=== PATIENT | female | born 1940 | race Caucasian/White ===

== ENCOUNTER → 2020-01-14 10:59 | Outpatient (BNVA) | payer MEDICARE, SELFPAY | PROVIDERS: PCP Internal Medicine; Referring Provider Internal Medicine; Visit Provider Internal Medicine | DX: I48.0 Paroxysmal atrial fibrillation (principal); Z79.01 Long term (current) use of anticoagulants; Z51.81 Encounter for therapeutic drug level monitoring | CPT/HCPCS: 85610; 99211 ==

== ENCOUNTER → 2020-02-10 10:59 | Outpatient (BNVA) | payer MEDICARE, SELFPAY | PROVIDERS: PCP Internal Medicine; Referring Provider Internal Medicine; Visit Provider Internal Medicine | DX: I48.0 Paroxysmal atrial fibrillation (principal); Z51.81 Encounter for therapeutic drug level monitoring; Z79.01 Long term (current) use of anticoagulants | CPT/HCPCS: 85610; 99211 ==

== ENCOUNTER 2020-02-16 07:30 | Outpatient (REF) | payer MEDICARE, SELFPAY ==
[2020-02-16 11:58] LABS: Alanine Aminotransferase 13 U/L (0-31); Anion Gap 15 (12-20); Aspartate Amino Transferase 15 U/L (5-31); Blood Urea Nitrogen 15 mg/dL (9-16); Carbon Dioxide 28 mmol/L (22-29); Chloride 100 mmol/L (96-108); Cholesterol 173 mg/dL; Estimated Glomerular Filt Rate > 60; Glucose Fasting 125 mg/dL (60-99); HDL Cholesterol 39 mg/dL; LDL Cholesterol Calculated 104 mg/dl; Potassium 4.2 mmol/l (3.3-5.1); Sodium 139 mmol/L (135-145); Triglycerides 152 mg/dL
[2020-02-16 12:08] LABS: Estimated Average Glucose 169 mg/dL; Hemoglobin A1c % 7.5 %; Vitamin D 25-OH Total 45.5 ng/mL (>30)
== END 2020-02-16 07:31 | disposition home or self-care (01) ==
LOC: HO.HMGCLDS 07:30
PROVIDERS: PCP Internal Medicine; Visit Provider Internal Medicine
DX: E11.22 Type 2 diabetes mellitus with diabetic chronic kidney disease (principal); I12.9 Hypertensive chronic kidney disease with stage 1 through stage 4 chronic kidney disease, or unspecified chronic kidney disease; N18.9 Chronic kidney disease, unspecified; E11.29 Type 2 diabetes mellitus with other diabetic kidney complication; E11.3291 Type 2 diabetes mellitus with mild nonproliferative diabetic retinopathy without macular edema, right eye; Z79.4 Long term (current) use of insulin; Z78.0 Asymptomatic menopausal state
CPT/HCPCS: 80048; 80061; 82306; 83036; 84450; 84460

== ENCOUNTER → 2020-03-09 09:49 | Outpatient (BNVA) | payer MEDICARE, SELFPAY | PROVIDERS: PCP Internal Medicine; Visit Provider Internal Medicine | DX: I48.0 Paroxysmal atrial fibrillation (principal); Z79.01 Long term (current) use of anticoagulants; Z51.81 Encounter for therapeutic drug level monitoring | CPT/HCPCS: 85610; 99211 ==

== ENCOUNTER → 2020-04-06 10:08 | Outpatient (BNVA) | payer MEDICARE, SELFPAY | PROVIDERS: PCP Internal Medicine; Visit Provider Internal Medicine | DX: I48.0 Paroxysmal atrial fibrillation (principal); Z79.01 Long term (current) use of anticoagulants; Z51.81 Encounter for therapeutic drug level monitoring | CPT/HCPCS: 85610 ==

== ENCOUNTER 2020-04-10 10:51 | Outpatient (REF) | payer MEDICARE, SELFPAY ==
--- NOTE | 2020-04-10 | MM_ITS ---
EXAMINATION: MM SCREENING DIGITAL BREAST TOMOSYNTHESIS, BILATERAL CLINICAL INFORMATION: Screening. Asymptomatic. The lifetime risk of breast cancer based on the Tyrer-Cuzick Model is 2%. COMPARISON: Mammography: 08/14/2017, 07/27/2017, 03/29/2016, 02/24/2015 TECHNIQUE: Digital breast tomosynthesis is performed in both the craniocaudal and mediolateral oblique views along with computer-aided detection (CAD). Synthesized 2D images are generated from the tomosynthesis. FINDINGS: There are scattered areas of fibroglandular density (ACR BI-RADS breast composition Category b). Parenchymal pattern is similar to prior studies. There are scattered asymmetries similar to prior studies. There is no developing density or interval mass or architectural abnormality. Scattered benign and vascular calcifications again seen. Axillary nodes are stable. Skin contours are smooth. There is a dermal lesion again seen overlying the right axilla on the MLO view. MM/MM tomosynthesis screening BI IMPRESSION: No significant changes from prior studies. ASSESSMENT: BI-RADS 2: Benign RECOMMENDATION: Routine annual mammography screening. This patient's information was entered into a reminder system with a target due date for their next mammogram.
== END 2020-04-10 10:52 | disposition home or self-care (01) ==
LOC: HO.MAMMO 10:51
PROVIDERS: Visit Provider Internal Medicine
DX: Z12.31 Encounter for screening mammogram for malignant neoplasm of breast (principal)
CPT/HCPCS: 77063; 77067

== ENCOUNTER → 2020-05-04 10:09 | Outpatient (BNVA) | payer MEDICARE, SELFPAY | PROVIDERS: PCP Internal Medicine; Visit Provider Internal Medicine | DX: I48.0 Paroxysmal atrial fibrillation (principal); Z51.81 Encounter for therapeutic drug level monitoring; Z79.01 Long term (current) use of anticoagulants | CPT/HCPCS: 85610; 99211 ==

== ENCOUNTER 2020-05-17 13:48 | Emergency (ER) | payer MEDICARE, SELFPAY ==
--- NOTE | ~2020-05-17 | XR_ITS ---
EXAMINATION: XR CHEST CLINICAL INFORMATION: Epigastric pain COMPARISON: Chest x-ray 02/28/2017 TECHNIQUE: 2 views of the chest were obtained. FINDINGS: Heart size is stable. There is no acute abnormality. There is no pulmonary vascular congestion. No focal consolidation or pleural effusion. History of prior right upper lobe lobectomy. Stable chronic changes of right hemithorax. There is chronic blunting of the right costophrenic angle. Status post resection posterior right fifth rib. Surgical clips over the right hemithorax. XR/XR chest 2V IMPRESSION: No acute abnormality the chest.
--- NOTE | 2020-05-17 14:02 | ECG_ITS ---
Test Reason : AFIB Blood Pressure : / mmHG Vent. Rate : 071 BPM Atrial Rate : 076 BPM P-R Int : 000 ms QRS Dur : 094 ms QT Int : 418 ms P-R-T Axes : 000 -48 051 degrees QTc Int : 454 ms Atrial fibrillation Left axis deviation Nonspecific ST abnormality Abnormal ECG When compared with ECG of 28-FEB-2017 08:07, No significant changes seen Referred By: Generic ED Physician Electronically Signed By:DANIAK ULLOA
[2020-05-17 14:06] VITALS: BP 129/69; PULSE 67; RESP 18; TEMP 36.9; O2SAT 95; BMI 26.7
[2020-05-17 15:52] LABS: MANUAL DIFF FLAG NO
[2020-05-17 15:58] LABS: Basophils Absolute Auto 0.1 X10*3/uL (0.0-0.2); Basophils Percent Auto 0.6 % (0-2); Eosinophils Absolute Auto 0.1 X10*3/uL (0.0-0.4); Eosinophils Percent Auto 1.1 % (0-4); Hematocrit 34.1 % (37-47); Hemoglobin 10.3 g/dl (12.0-16.0); Imm Gran Abs Auto 0.04 X10*3/uL (0.00-0.03); Imm Gran Pct Auto 0.4 % (0.0-0.4); Lymphocytes Percent Auto 10.3 % (20-40); Mean Corpuscular HGB Conc 30.2 g/dl (31.0-35.0); Mean Corpuscular Hemoglobin 20.8 pg (27.0-33.0); Mean Corpuscular Volume 68.8 fL (80-98); Mean Platelet Volume 9.7 fL (9.4-12.3); Monocytes Absolute Auto 0.8 X10*3/uL (0.1-1.2); Monocytes Percent Auto 8.3 % (2-11); Neutrophils Absolute Auto 7.8 X10*3/uL (2.0-8.3); Neutrophils Percent Auto 79.3 % (45-73); Platelet Count 353 X10*3/uL (160-400); Red Blood Count 4.96 X10*6/uL (4.20-5.50); Red Cell Distribution Width 19.5 % (11.0-16.0); White Blood Count 9.9 X10*3/uL (4.8-10.8)
[2020-05-17 16:21] LABS: Troponin-I High Sensitivity 13.4 ng/L (<3.5-17.0)
[2020-05-17 16:23] LABS: Anion Gap 16 (12-20); Blood Urea Nitrogen 16 mg/dL (9-16); Calcium 9.4 mg/dL (8.4-10.2); Carbon Dioxide 26 mmol/L (22-29); Chloride 103 mmol/L (96-108); Creatinine Clr Calc Pharmacy 55.3; Estimated Glomerular Filt Rate > 60; Glucose Random 136 mg/dL (60-115); Potassium 4.7 mmol/L (3.3-5.1); Sodium 140 mmol/L (135-145)
[2020-05-17 16:25] LABS: Glucose, Whole Blood 140 mg/dL (60-115)
--- NOTE | 2020-05-17 17:51 | ED_ITS ---
HPI - Arrhythmia/Palpitations General Chief Complaint: Arrhythmia/Palpitations Stated Complaint: afib Time Seen by Provider: 05/17/20 17:51 Source: patient Mode of arrival: ambulatory Limitations: no limitations History of Present Illness HPI narrative: Pleasant 79-year-old female with below noted past medical history including history of dyslipidemia, hypertension, diabetes, atrial fibrillation on digoxin and metoprolol chronically anticoagulated with Coumadin and surgical history of hysterectomy, lobectomy of the lung, total replacement who presents ambulatory via triage with complaint of states for past several days she has a feeling of ?my AFib? States she has similar-type epigastric discomfort when she gets exacerbations she took an antacid without much relief. She states she has had similar type symptoms the past with exacerbation. Otherwise denies any dizziness, chest pain, for shortness of breath or lower extremity swelling. No recent illness. MD complaint: rapid heart beat and atrial fibrillation Arrhythmia history: atrial fibrillation Associated symptoms: denies other symptoms Related Data Home Medications Medication Instructions Recorded Confirmed amlodipine 5 mg tablet 5 mg PO DAILY 03/03/20 digoxin 125 mcg (0.125 mg) tablet 125 mcg PO DAILY 03/03/20 flu vacc [id number](65yr up)-PF 240 ml IM 03/03/20 mcg/0.7 mL intramuscular syringe insulin glargine 100 unit/mL (3 See Rx Instructions SUBCUT .COMPLEX 03/03/20 03/03/20 mL) subcutaneous pen insulin lispro 200 unit/mL (3 mL) 35 unit SUBCUT BEDTIME ml 03/03/20 03/03/20 subcutaneous pen metoprolol succinate 50 mg mg PO 03/03/20 tablet,extended release 24 hr spironolactone 25 mg tablet 25 mg PO DAILY 03/03/20 Previous Rx's Medication Instructions Recorded metformin 1,000 mg tablet 1,000 mg PO BID 90 Days #180 tab 01/20/20 warfarin 2 mg tablet See Rx Instructions .ROUTE 01/20/20 .COMPLEX #200 tab estradiol 1 g VAGINAL 3XW #42.5 g 01/29/20 rosuvastatin 5 mg tablet 5 mg PO 3XW #39 tab 05/24/20 Allergies Allergy/AdvReac Type Severity Reaction Status Date / Time adhesive tape [Adhesive Tape] Allergy Mild CONTACT Verified 05/17/20 14:05 DERMATITIS cephalexin [CEPHALEXIN] Allergy Unknown SWELLING Verified 05/17/20 14:05 latex [Latex] Allergy Unknown RASH Verified 05/17/20 14:05 oxycodone [From PERCOCET] Allergy Unknown PER H&P Verified 05/17/20 14:05 watermelon [WATERMELON] Allergy Unknown ANAPHYLAXIS Verified 05/17/20 14:05 Biaxin AdvReac Intermediate plapitation Verified 05/17/20 14:05 s bacitracin [From Cortisporin] AdvReac Mild EYE Verified 05/17/20 14:05 IRRITATION hydrocortisone AdvReac Mild EYE Verified 05/17/20 14:05 [From Cortisporin] IRRITATION neomycin [From Cortisporin] AdvReac Mild EYE Verified 05/17/20 14:05 IRRITATION flecainide [From Tambocor] AdvReac Unknown HEART Verified 05/17/20 14:05 RACING lisinopril [LISINOPRIL] AdvReac Unknown cough, Verified 05/17/20 14:05 nausea Sulfa (Sulfonamide AdvReac Unknown PALPITATION Verified 05/17/20 14:05 Antibiotics) S [SULFA(SULFONAMIDE ANTIBIOTICS)] Review of Systems Review of Systems: Constitutional: No Weight loss, No Fever, No Chills, No Night Sweats, No Fatigue, No Malaise ENT/Mouth: No Hearing loss, No Ear Pain, No Nasal Congestion, No Sinus Pain, No Hoarseness, No sore throat, No Rhinorrhea, No Swallowing Difficulty Eyes: No Eye Pain, No Swelling, No Redness, No Foreign Body, No Discharge, No Vision Changes Cardiovascular: No Chest Pain, No SOB, No Dyspnea on Exertion, No Orthopnea, No Edema Respiratory: No Cough, No Sputum, No Wheezing, No Smoke Exposure, No Dyspnea Gastrointestinal: No Nausea, No Vomiting, No Diarrhea, No Constipation, No abdominal Pain, No Hematochezia, No Melena Genitourinary: No Dysuria, No Urinary Frequency, No Hematuria, No Urinary Incontinence, No Urgency, No Flank Pain, No Urinary Flow Changes, No Hesitancy Musculoskeletal: No joint pain, No Myalgias, No Joint Swelling Skin: No Skin Lesions, No rash Neuro: No Weakness, No Numbness, No Paresthesias, No Loss of Consciousness, No Dizziness, No Headache Psych: No Social Issues Heme/Lymph: No Bruising, No Bleeding,No Lymphadenopathy Endocrine: No Polyuria, No Polydipsia, No Temperature Intolerance Yes all other systems are reviewed and are negative [facility] Past Medical History Medical History Atrial fibrillation Atrophic vaginitis Dyslipidemia Essential hypertension Osteoarthritis of knees, bilateral Osteopenia Type 2 diabetes mellitus with diabetic neuropathy, 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 Son No problems noted. Daughter No problems noted. Social History Social History Alcohol intake: never Smoking Status: Never smoker Physical Exam Vital Signs: Vital Signs: Last Vital Signs Temp 98.2 F 05/17/20 19:58 Pulse 65 05/17/20 19:58 Resp 18 05/17/20 19:58 BP 166/73 H 05/17/20 19:58 Pulse Ox 93 05/17/20 19:58 Body Mass Index 26.7 Reviewed Const: General: cooperative and healthy appearing; No acute distress or intoxicated appearing Nutritional Appearance: average body habitus Orientation/consciousness: patient oriented x3 HENMT: Head: Yes normal to inspection Ears: hearing grossly normal bilaterally Eyes: General: appearance normal, both eyes and all related structures Visual Hernandez: normal visual hernandez by confrontation Neck: Neck: Yes normal visual inspection, No positive Brudzinski's sign, No positive Kernig's sign and No tender Thyroid: Thyroid normal Chest: Chest palpation & inspection: normal inspection of the chest Resp: Effort & Inspection: normal respiratory effort Auscultation: clear to auscultation bilaterally Cardio: Jugular venous distension: no JVD Rhythm: abnormal rhythm regularly irregular Heart sounds: no murmurs GI: Inspection: Yes normal to inspection Palpation (GI): Soft to palpation, not firm, nontender and no guarding Percussion: Yes normal to percussion Auscultation: normal bowel sounds : General: Yes no CVA tenderness Back/Spine/Pelvis: Back: no CVA tenderness Skin: General skin exam: no rashes or lesions noted Neuro: General: patient oriented x3 Extrem: General: Yes normal to inspection Course Course Course Narrative: History of atrial fibrillation has had rate control here on metoprolol, digoxin and anticoagulated on Coumadin. Has been resting comfortably and controlled AFib here and ambulatory steady gait. I did have a discussion with her regarding staying for observation however she would prefer to go home this patient was monitored in the emergency room for several hours without acute event and repeat labs show an no troponin delta. Patient will be discharged home to follow-up closely with her machine stoppage frequency checker. She feels comfortable with this plan out of bed ambulatory steady gait. MDM - Arrhythmia/Palpitations Differential Diagnosis Differential diagnosis: Likely palpitations Medical Records Attestation: I reviewed the patient's medical records. Lab Data Attestation: I reviewed the patient's lab results. Result diagrams: 05/17/20 15:48 05/17/20 15:48 Labs: Lab Results 05/17/20 05/17/20 05/17/20 Range/Units 15:23 15:48 15:48 WBC 9.9 (4.8-10.8) X10*3/uL RBC 4.96 (4.20-5.50) X10*6/uL Hgb 10.3 L (12.0-16.0) g/dl Hct 34.1 L (37-47) % MCV 68.8 L (80-98) fL MCH 20.8 L (27.0-33.0) pg MCHC 30.2 L (31.0-35.0) g/dl RDW 19.5 H (11.0-16.0) % Plt Count 353 (160-400) X10*3/uL MPV 9.7 (9.4-12.3) fL Immature Gran % (Auto) 0.4 (0.0-0.4) % Neut % (Auto) 79.3 H (45-73) % Lymph % (Auto) 10.3 L (20-40) % Reeves % (Auto) 8.3 (2-11) % Eos % (Auto) 1.1 (0-4) % Baso % (Auto) 0.6 (0-2) % Lymph # (Auto) 1.0 L (1.2-4.9) X10*3/uL Reeves # (Auto) 0.8 (0.1-1.2) X10*3/uL Eos # (Auto) 0.1 (0.0-0.4) X10*3/uL Baso # (Auto) 0.1 (0.0-0.2) X10*3/uL Abs Immat Gran (auto) 0.04 H (0.00-0.03) X10*3/uL Absolute Neuts (auto) 7.8 (2.0-8.3) X10*3/uL Absolute Nucleated RBC 0.000 (0.0-0.012) X10*3/uL Nucleated RBC % (auto) 0.0 (0.0-0.2) /100WBC PT (10.8-13.0) SEC INR (0.9-1.1) APTT (24.1-38.0) SEC Hold Blue Top SEE NOTE Sodium (135-145) mmol/L Potassium (3.3-5.1) mmol/L Chloride (96-108) mmol/L Carbon Dioxide (22-29) mmol/L Anion Gap (12-20) BUN (9-16) mg/dL Creatinine (0.5-1.4) mg/dL Estim Creat Clear Calc Estimated GFR POC Glucose 140 H (60-115) mg/dL Random Glucose (60-115) mg/dL Calcium (8.4-10.2) mg/dL Magnesium (1.6-2.6) mg/dL Total Bilirubin (0.0-1.0) mg/dL Direct Bilirubin (0.0-0.5) mg/dL AST (5-31) U/L ALT (0-31) U/L Alkaline Phosphatase (39-117) U/L Troponin I High Sens (<3.5-17.0) ng/L B-Natriuretic Peptide (<100) pg/mL Total Protein (6.5-8.0) g/dL Albumin (3.5-5.0) g/dL Lipase (8-78) U/L Digoxin (0.8-2.0) ng/mL Coronavirus (PCR) (Negative) Influenza Type A (PCR) (Negative) Influenza Type B (PCR) (Negative) RSV RNA Qual (PCR) (Negative) 05/17/20 05/17/20 05/17/20 Range/Units 15:48 15:48 18:41 WBC (4.8-10.8) X10*3/uL RBC (4.20-5.50) X10*6/uL Hgb (12.0-16.0) g/dl Hct (37-47) % MCV (80-98) fL MCH (27.0-33.0) pg MCHC (31.0-35.0) g/dl RDW (11.0-16.0) % Plt Count (160-400) X10*3/uL MPV (9.4-12.3) fL Immature Gran % (Auto) (0.0-0.4) % Neut % (Auto) (45-73) % Lymph % (Auto) (20-40) % Reeves % (Auto) (2-11) % Eos % (Auto) (0-4) % Baso % (Auto) (0-2) % Lymph # (Auto) (1.2-4.9) X10*3/uL Reeves # (Auto) (0.1-1.2) X10*3/uL Eos # (Auto) (0.0-0.4) X10*3/uL Baso # (Auto) (0.0-0.2) X10*3/uL Abs Immat Gran (auto) (0.00-0.03) X10*3/uL Absolute Neuts (auto) (2.0-8.3) X10*3/uL Absolute Nucleated RBC (0.0-0.012) X10*3/uL Nucleated RBC % (auto) (0.0-0.2) /100WBC PT 24.1 H (10.8-13.0) SEC INR 2.0 H (0.9-1.1) APTT 42.0 H (24.1-38.0) SEC Hold Blue Top Sodium 140 (135-145) mmol/L Potassium 4.7 (3.3-5.1) mmol/L Chloride 103 (96-108) mmol/L Carbon Dioxide 26 (22-29) mmol/L Anion Gap 16 (12-20) BUN 16 (9-16) mg/dL Creatinine 0.77 (0.5-1.4) mg/dL Estim Creat Clear Calc 55.3 Estimated GFR > 60 POC Glucose (60-115) mg/dL Random Glucose 136 H (60-115) mg/dL Calcium 9.4 (8.4-10.2) mg/dL Magnesium 2.2 (1.6-2.6) mg/dL Total Bilirubin 0.7 (0.0-1.0) mg/dL Direct Bilirubin 0.3 (0.0-0.5) mg/dL AST 16 (5-31) U/L ALT 13 (0-31) U/L Alkaline Phosphatase 54 (39-117) U/L Troponin I High Sens 13.4 (<3.5-17.0) ng/L B-Natriuretic Peptide 81 (<100) pg/mL Total Protein 7.6 (6.5-8.0) g/dL Albumin 4.4 (3.5-5.0) g/dL Lipase 34 (8-78) U/L Digoxin (0.8-2.0) ng/mL Coronavirus (PCR) (Negative) Influenza Type A (PCR) (Negative) Influenza Type B (PCR) (Negative) RSV RNA Qual (PCR) (Negative) 05/17/20 05/17/20 05/17/20 Range/Units 18:41 18:41 19:51 WBC (4.8-10.8) X10*3/uL RBC (4.20-5.50) X10*6/uL Hgb (12.0-16.0) g/dl Hct (37-47) % MCV (80-98) fL MCH (27.0-33.0) pg MCHC (31.0-35.0) g/dl RDW (11.0-16.0) % Plt Count (160-400) X10*3/uL MPV (9.4-12.3) fL Immature Gran % (Auto) (0.0-0.4) % Neut % (Auto) (45-73) % Lymph % (Auto) (20-40) % Reeves % (Auto) (2-11) % Eos % (Auto) (0-4) % Baso % (Auto) (0-2) % Lymph # (Auto) (1.2-4.9) X10*3/uL Reeves # (Auto) (0.1-1.2) X10*3/uL Eos # (Auto) (0.0-0.4) X10*3/uL Baso # (Auto) (0.0-0.2) X10*3/uL Abs Immat Gran (auto) (0.00-0.03) X10*3/uL Absolute Neuts (auto) (2.0-8.3) X10*3/uL Absolute Nucleated RBC (0.0-0.012) X10*3/uL Nucleated RBC % (auto) (0.0-0.2) /100WBC PT (10.8-13.0) SEC INR (0.9-1.1) APTT (24.1-38.0) SEC Hold Blue Top Sodium (135-145) mmol/L Potassium (3.3-5.1) mmol/L Chloride (96-108) mmol/L Carbon Dioxide (22-29) mmol/L Anion Gap (12-20) BUN (9-16) mg/dL Creatinine (0.5-1.4) mg/dL Estim Creat Clear Calc Estimated GFR POC Glucose (60-115) mg/dL Random Glucose (60-115) mg/dL Calcium (8.4-10.2) mg/dL Magnesium (1.6-2.6) mg/dL Total Bilirubin (0.0-1.0) mg/dL Direct Bilirubin (0.0-0.5) mg/dL AST (5-31) U/L ALT (0-31) U/L Alkaline Phosphatase (39-117) U/L Troponin I High Sens 15.7 (<3.5-17.0) ng/L B-Natriuretic Peptide (<100) pg/mL Total Protein (6.5-8.0) g/dL Albumin (3.5-5.0) g/dL Lipase (8-78) U/L Digoxin 0.7 L (0.8-2.0) ng/mL Coronavirus (PCR) NEGATIVE (Negative) Influenza Type A (PCR) NEGATIVE (Negative) Influenza Type B (PCR) NEGATIVE (Negative) RSV RNA Qual (PCR) NEGATIVE (Negative) Imaging Data Chest x-ray: Radiologist's impression: [address] [id number] ReportSigned Patient: Aminah Kraft PMR#: [id number]: 9Acct:[id number]/Sex: 79 / FADM Date: 05/17/20Loc: HO.EDAttending Dr: Ordering Physician: Generic ED Physician Date of Service: 05/17/20 Procedure(s): XR chest 2V Accession Number(s): [id number] cc: Generic ED Physician~ EXAMINATION: XR CHEST CLINICAL INFORMATION: Epigastric pain COMPARISON: Chest x-ray 02/28/2017 TECHNIQUE: 2 views of the chest were obtained. FINDINGS: Heart size is stable. There is no acute abnormality. There is no pulmonary vascular congestion. No focal consolidation or pleural effusion. History of prior right upper lobe lobectomy. Stable chronic changes of right hemithorax. There is chronic blunting of the right costophrenic angle. Status post resection posterior right fifth rib. Surgical clips over the right hemithorax. XR/XR chest 2V IMPRESSION: No acute abnormality the chest. Dictated By:ISSA BURNETTE MDSigned By:<Electronically signed by ISSA BURNETTE MD in OV>05/17/20 1632 DD/ 1600TD/TT: Paralegal Assistant: TRACY ECG Data Interpretation: 1. Atrial fibrillation Left axis deviation Nonspecific ST abnormality Abnormal ECG When compared with ECG of 28-FEB-2017 08:07, No significant changes seen 2. Atrial fibrillation with slow ventricular response Nonspecific ST abnormality Abnormal ECG When compared with ECG of 17-MAY-2020 14:06, No significant change was found Discharge Plan Discharge Clinical Impression: Chronic a-fib Patient Disposition: Home, Self-Care Instructions: A-fib (Atrial Fibrillation) (ED) Additional Instructions: Taking medication prescribed Follow-up her primary care doctor closely Return if any chest pain, shortness of breath, abdominal pain, or any other concerning symptoms Thank you Prescriptions: No Action metformin 1,000 mg tablet 1,000 mg PO BID 90 Days Qty: 180 RF: 4 warfarin 2 mg tablet See Rx Instructions mg .ROUTE .COMPLEX Qty: 200 RF: 3 estradiol 0.01 % (0.1 mg/gram) cream 1 g vaginal 3XW Qty: 42.5 RF: 2 rosuvastatin 5 mg tablet 5 mg PO 3XW Qty: 39 RF: 0 digoxin 125 mcg (0.125 mg) tablet 125 mcg PO DAILY RF: 0 spironolactone 25 mg tablet 25 mg PO DAILY RF: 0 amlodipine 5 mg tablet 5 mg PO DAILY RF: 0 metoprolol succinate 50 mg tablet extended release 24 hr PO RF: 0 Fluzone HighDose Quad 20-21 PF 240 mcg/0.7 mL syringe IM RF: 0 insulin lispro 200 unit/mL (3 mL) insulin pen 35 unit subcut BEDTIME RF: 0 insulin glargine 100 unit/mL (3 mL) insulin pen See Rx Instructions subcut .COMPLEX RF: 0 Referrals: Patricia Nicole MD [Primary Care Provider] - 2 days Interventions: ED Discharge Assessment Last Done: 05/17/20 20:52 Discharge Date/Time: 05/17/20 20:52
[2020-05-17] MEDS: 0.9 % Sodium Chloride 500 ML IV (18:43)
[2020-05-17 18:44] LABS: Alanine Aminotransferase 13 U/L (0-31); Albumin Level 4.4 g/dL (3.5-5.0); Alkaline Phosphatase 54 U/L (39-117); Aspartate Amino Transferase 16 U/L (5-31); Bilirubin Direct 0.3 mg/dL (0.0-0.5); Bilirubin Total 0.7 mg/dL (0.0-1.0); Lipase 34 U/L (8-78); Magnesium 2.2 mg/dL (1.6-2.6); Total Protein 7.6 g/dL (6.5-8.0)
[2020-05-17 18:51] LABS: B Type Natriuretic Peptide 81 pg/mL (<100)
[2020-05-17 18:56] LABS: Prothrombin Time 24.1 SEC (10.8-13.0)
[2020-05-17 19:24] LABS: Digoxin 0.7 ng/mL (0.8-2.0)
[2020-05-17 19:29] LABS: Influenza A PCR NEGATIVE (Negative); Influenza B PCR NEGATIVE (Negative); Resp Syncy Virus RNA Qual PCR NEGATIVE (Negative); SARS COV2 PCR INHOUSE NEGATIVE (Negative)
--- NOTE | 2020-05-17 19:46 | ECG_ITS ---
Test Reason : REPEAT EKG Blood Pressure : / mmHG Vent. Rate : 052 BPM Atrial Rate : 066 BPM P-R Int : 000 ms QRS Dur : 094 ms QT Int : 470 ms P-R-T Axes : 000 -52 034 degrees QTc Int : 437 ms Atrial fibrillation with slow ventricular response Left anterior fascicular block Nonspecific ST abnormality Abnormal ECG When compared with ECG of 17-MAY-2020 14:06, No significant change was found Referred By: Leon Juarez Electronically Signed By:DANIKA ULLOA
[2020-05-17 19:58] VITALS: BP 166/73; PULSE 65; RESP 18; TEMP 36.8; O2SAT 93
[2020-05-17 20:16] VITALS: PULSE 65
[2020-05-17 20:20] LABS: Troponin-I High Sensitivity 15.7 ng/L (<3.5-17.0)
== END 2020-05-17 20:52 | disposition home or self-care (01) ==
PROVIDERS: Nurse Practitioner Primary Care; Emergency Provider Emergency Medicine; PCP Internal Medicine
DX: I48.20 Chronic atrial fibrillation, unspecified (principal); R00.2 Palpitations; Z20.822 Contact with and (suspected) exposure to COVID-19; E78.5 Hyperlipidemia, unspecified; I10 Essential (primary) hypertension; E11.9 Type 2 diabetes mellitus without complications; Z90.710 Acquired absence of both cervix and uterus; Z79.4 Long term (current) use of insulin; Z79.01 Long term (current) use of anticoagulants; Z79.899 Other long term (current) drug therapy
CPT/HCPCS: 0241U; 36415; 71046; 80048; 80076; 80162; 82947; 83690; 83735; 83880; 84484; 85025; 85610; 85730; 93005; 96360; 99284; 99285

== ENCOUNTER 2020-05-31 06:47 | Outpatient (REF) | payer MEDICARE, SELFPAY ==
[2020-05-31 11:25] LABS: Estimated Average Glucose 148 mg/dL; Hemoglobin A1c % 6.8 %
[2020-05-31 11:55] LABS: Alanine Aminotransferase 12 U/L (0-31); Albumin Level 4.2 g/dL (3.5-5.0); Alkaline Phosphatase 49 U/L (39-117); Anion Gap 13 (12-20); Aspartate Amino Transferase 15 U/L (5-31); Bilirubin Total 0.6 mg/dL (0.0-1.0); Blood Urea Nitrogen 16 mg/dL (9-16); Calcium 9.3 mg/dL (8.4-10.2); Carbon Dioxide 29 mmol/L (22-29); Chloride 102 mmol/L (96-108); Cholesterol 164 mg/dL; Estimated Glomerular Filt Rate > 60; Glucose Fasting 108 mg/dL (60-99); HDL Cholesterol 36 mg/dL; LDL Cholesterol Calculated 99 mg/dl; Potassium 4.4 mmol/L (3.3-5.1); Sodium 140 mmol/L (135-145); Total Protein 7.1 g/dL (6.5-8.0); Triglycerides 147 mg/dL
[2020-05-31 12:09] LABS: Microalbum/Creatinine Ratio Ur 487.3 ug/mg cr
[2020-05-31 12:16] LABS: Vitamin D 25-OH Total 50.6 ng/mL (>30)
== END 2020-05-31 06:48 | disposition home or self-care (01) ==
LOC: HO.HMGCLDS 06:47
PROVIDERS: PCP Internal Medicine; Visit Provider Internal Medicine
DX: M85.80 Other specified disorders of bone density and structure, unspecified site (principal); E11.29 Type 2 diabetes mellitus with other diabetic kidney complication; E11.40 Type 2 diabetes mellitus with diabetic neuropathy, unspecified; E11.3299 Type 2 diabetes mellitus with mild nonproliferative diabetic retinopathy without macular edema, unspecified eye; E78.5 Hyperlipidemia, unspecified; I10 Essential (primary) hypertension; Z78.0 Asymptomatic menopausal state; Z79.4 Long term (current) use of insulin
CPT/HCPCS: 36415; 80053; 80061; 82043; 82306; 83036

== ENCOUNTER → 2020-06-01 10:13 | Outpatient (BNVA) | payer MEDICARE, SELFPAY | PROVIDERS: PCP Internal Medicine; Visit Provider Internal Medicine | DX: I48.0 Paroxysmal atrial fibrillation (principal); Z51.81 Encounter for therapeutic drug level monitoring; Z79.01 Long term (current) use of anticoagulants | CPT/HCPCS: 85610; 99211 ==

== ENCOUNTER 2020-06-18 14:59 | Emergency (ER) | payer MEDICARE, SELFPAY ==
--- NOTE | ~2020-06-18 | CT_ITS ---
EXAMINATION: CT CHEST, ABDOMEN AND PELVIS WITH CONTRAST CLINICAL INFORMATION: Reason for Exam Fall down stairs. Right-sided abdominal pain . COMPARISON: Chest radiograph 05/17/2020 abdominal ultrasound 08/20/2011. TECHNIQUE: Multidetector volumetric imaging was performed from the thoracic inlet through the pubic symphysis following the administration of: Oral contrast: No Intravenous contrast: 80 mL Omnipaque 350 No contrast reaction reported Sagittal and coronal reformatted images were obtained on the technologist workstation. Total exam dose-length product 488 mGy-cm FINDINGS: CHEST: Lung: There are postsurgical changes with volume loss in the right hemithorax. Postthoracotomy changes in the posterior right chest wall. There are mild underlying emphysematous changes. There is no dense consolidation. Atelectasis in the lung bases. There are a few scattered micronodules. No suspicious pulmonary nodules. Pleura: No pleural effusion or pneumothorax. Mediastinum: The heart is enlarged. Coronary artery calcifications. No pericardial effusion. Scattered low volume mediastinal lymph nodes measuring up to 1.2 cm in the right lower paratracheal station. Mildly enlarged, heterogeneous thyroid gland. Vascular: No aneurysm or dissection. 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 Chest Wall/Axilla: No axillary or internal mammary lymphadenopathy. ABDOMEN/PELVIS: Liver, Gallbladder and Biliary Tree: The liver is normal in size, shape, and attenuation. No focal hepatic lesion or biliary ductal dilatation is present. Cholelithiasis. Large calcified gallstone is present. Pancreas: Normal; no mass or surrounding fluid. Spleen: Normal size. No focal lesion. Adrenal Glands: Normal; no mass. Kidneys and Ureters: There is mild right-sided hydroureteronephrosis with an obstructing 8 mm calculus in the proximal/mid right ureter. 8 mm calculus in the upper pole of the right kidney. Bilateral simple renal cysts which do not require follow-up. Gastrointestinal Tract: No bowel obstruction. Some colonic diverticulosis. Normal appendix. Abdominal Wall: No significant hernia is appreciated. Lymphovascular Structures: Atherosclerotic ossification in the aorta. No lymphadenopathy. Bladder: No focal mass or wall thickening seen. No bladder calculi. Pelvic Viscera: Unremarkable. Osseous Structures: Multilevel degenerative changes in the spine. There is a mild compression fracture in the T11 vertebral body with some questionable surrounding inflammatory changes in the paravertebral body fat suggesting a possible acute/subacute fracture. A mild compression deformity in the T12 vertebral body appears to be chronic. CT/CT abdomen pelvis w con IMPRESSION: 1. There is mild right-sided hydronephrosis with an obstructing 8 mm calculus in the proximal/mid right ureter. Additional 8 mm calculus in the upper pole of the right kidney. 2. There is a questionable acute/subacute mild compression deformity in the T11 vertebral body. Recommend clinical correlation to assess acuity. If clinically indicated, MRI of the thoracic/lumbar spine can be obtained to assess the acuity. 3. Cholelithiasis. 4. Atherosclerotic disease including coronary artery calcifications. Enlarged heart. 5. Nonspecific low volume mediastinal lymphadenopathy. 6. Mild emphysematous changes in the lungs. 7. Postsurgical changes in the right lung. 8. Colonic diverticulosis.
[2020-06-18 15:04] VITALS: BP 149/65; PULSE 78; RESP 14; TEMP 35.8; O2SAT 97; BMI 26.3
[2020-06-18 16:28] VITALS: BP 152/50; PULSE 57; RESP 14; TEMP 36.4; O2SAT 97
[2020-06-18 17:49] LABS: MANUAL DIFF FLAG NO
[2020-06-18 17:50] LABS: Basophils Absolute Auto 0.1 X10*3/uL (0.0-0.2); Basophils Percent Auto 0.6 % (0-2); Eosinophils Absolute Auto 0.3 X10*3/uL (0.0-0.4); Eosinophils Percent Auto 3.8 % (0-4); Hematocrit 36.7 % (37-47); Hemoglobin 10.9 g/dl (12.0-16.0); Imm Gran Abs Auto 0.03 X10*3/uL (0.00-0.03); Imm Gran Pct Auto 0.3 % (0.0-0.4); Lymphocytes Absolute Auto 1.6 X10*3/uL (1.2-4.9); Lymphocytes Percent Auto 18.3 % (20-40); Mean Corpuscular HGB Conc 29.7 g/dl (31.0-35.0); Mean Corpuscular Hemoglobin 20.4 pg (27.0-33.0); Mean Corpuscular Volume 68.6 fL (80-98); Mean Platelet Volume 8.9 fL (9.4-12.3); Monocytes Absolute Auto 0.9 X10*3/uL (0.1-1.2); Neutrophils Absolute Auto 5.9 X10*3/uL (2.0-8.3); Platelet Count 439 X10*3/uL (160-400); Red Blood Count 5.35 X10*6/uL (4.20-5.50); White Blood Count 8.8 X10*3/uL (4.8-10.8)
--- NOTE | 2020-06-18 17:50 | ED.FALL ---
HPI - Fall General Chief Complaint: Fall Stated Complaint: fall Time Seen by Provider: 06/18/20 17:06 Source: patient Mode of arrival: ambulatory History of Present Illness HPI Narrative: 79-year-old female with a past medical history hyperlipidemia, HTN, diabetes, AFib on digoxin, metoprolol, and Coumadin, s/p hysterectomy, lobectomy, presenting to the ED complaining of right-sided rib and abdominal pain radiating to left abdomen x1 week s/p mechanical fall down 3-4 stairs. Reports was carrying laundry when slipped on close, falling on side/back, denies head trauma or LOC. Reports pain is worse with movement. Denies shortness of breath, nausea/vomiting, diarrhea, bloody stools/melena, nausea/vomiting, dysuria. Admits to intermittent chronic lightheadedness which she is seeing her PCP for. MD complaint: fall Onset (ago): week(s) Related Data Home Medications Medication Instructions Recorded Confirmed amlodipine 5 mg tablet 5 mg PO DAILY 03/03/20 06/02/20 digoxin 125 mcg (0.125 mg) tablet 125 mcg PO DAILY 03/03/20 06/02/20 flu vacc [id number](65yr up)-PF 240 ml IM 03/03/20 06/02/20 mcg/0.7 mL intramuscular syringe insulin glargine 100 unit/mL (3 See Rx Instructions SUBCUT .COMPLEX 03/03/20 06/02/20 mL) subcutaneous pen insulin lispro 200 unit/mL (3 mL) 35 unit SUBCUT BEDTIME ml 03/03/20 06/02/20 subcutaneous pen metoprolol succinate 50 mg mg PO 03/03/20 06/02/20 tablet,extended release 24 hr spironolactone 25 mg tablet 25 mg PO DAILY 03/03/20 06/02/20 omeprazole 20 mg capsule,delayed 20 mg PO DAILY 06/02/20 06/02/20 release Previous Rx's Medication Instructions Recorded metformin 1,000 mg tablet 1,000 mg PO BID 90 Days #180 tab 01/20/20 warfarin 2 mg tablet See Rx Instructions .ROUTE 01/20/20 .COMPLEX #200 tab estradiol 1 g VAGINAL 3XW #42.5 g 01/29/20 rosuvastatin 5 mg tablet 5 mg PO 3XW #39 tab 03/08/21 docusate sodium 100 mg capsule 100 mg PO DAILY #30 cap 06/02/20 famotidine 40 mg tablet 40 mg PO .q pm #30 tab 06/02/20 ferrous fumarate 325 mg (106 mg 325 mg PO DAILY #30 tab 06/02/20 iron) tablet acetaminophen [Tylenol Extra 500 mg PO Q6H PRN #20 tab 06/18/20 Strength] tamsulosin [Flomax] 0.4 mg PO DAILY #10 cap 06/18/20 tramadol 50 mg PO Q8H PRN 3 Days #9 tab 06/18/20 Allergies Allergy/AdvReac Type Severity Reaction Status Date / Time adhesive tape [Adhesive Tape] Allergy Mild CONTACT Verified 06/02/20 23:50 DERMATITIS cephalexin [CEPHALEXIN] Allergy Unknown SWELLING Verified 06/02/20 23:50 latex [Latex] Allergy Unknown RASH Verified 06/02/20 23:50 oxycodone [From PERCOCET] Allergy Unknown PER H&P Verified 06/02/20 23:50 watermelon [WATERMELON] Allergy Unknown ANAPHYLAXIS Verified 06/02/20 23:50 Biaxin AdvReac Intermediate plapitation Verified 06/02/20 23:50 s bacitracin [From Cortisporin] AdvReac Mild EYE Verified 06/02/20 23:50 IRRITATION hydrocortisone AdvReac Mild EYE Verified 06/02/20 23:50 [From Cortisporin] IRRITATION neomycin [From Cortisporin] AdvReac Mild EYE Verified 06/02/20 23:50 IRRITATION flecainide [From Tambocor] AdvReac Unknown HEART Verified 06/02/20 23:50 RACING lisinopril [LISINOPRIL] AdvReac Unknown cough, Verified 06/02/20 23:50 nausea Sulfa (Sulfonamide AdvReac Unknown PALPITATION Verified 06/02/20 23:50 Antibiotics) S [SULFA(SULFONAMIDE ANTIBIOTICS)] Review of Systems Review of Systems: Constitutional: No Fever, No Chills, No Malaise Cardiovascular: +chest wall Pain, No SOB, +Edema Respiratory: No Cough, No Dyspnea Gastrointestinal: No Nausea, No Vomiting, No Diarrhea, No Constipation, +Abdominal pain, No Hematochezia, No Melena Genitourinary: No irregular bleeding, No Dysuria, No Hematuria, +R Flank Pain Musculoskeletal: No joint pain, No Myalgias, No Joint Swelling Skin: No Skin Lesions, No rash Neuro: No Weakness, No Loss of Consciousness, + intermittent lightheadedness, No Headache Yes all other systems are reviewed and are negative Neurologic: Denies Abnormal speech present [facility] Past Medical History Attestation statement: The following information was validated with the patient. 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 Son No problems noted. Daughter No problems noted. Social History Social History Alcohol intake: never Smoking Status: Former smoker Smoked in Last 30 Days: No Use of substances other than those prescribed or required for medical reasons: No Advance Directives: No Advance Directives Information Provided: Yes Physical Exam Vital Signs: Vital Signs: Last Vital Signs Temp 97.5 F 06/18/20 16:28 Pulse 57 06/18/20 16:28 Resp 18 06/18/20 20:00 BP 129/60 06/18/20 20:00 Pulse Ox 98 06/18/20 20:00 Body Mass Index 26.3 Const: General: cooperative, healthy appearing, comfortable, no acute distress, well developed and alert Orientation/consciousness: patient oriented x3 Limitations: no limitations HENMT: Head: Yes normal to inspection, Yes normocephalic and Yes atraumatic Ears: hearing grossly normal bilaterally General nose exam: Normal external nose present Face and sinus: Yes normal facial exam Eyes: General: appearance normal, both eyes and all related structures EOM: EOMs intact bilaterally Neck: Neck: Yes normal visual inspection and Yes no meningeal signs Chest: Other: + right-sided chest wall/rib tenderness to palpation > lower lateral/posterior aspect Chest palpation & inspection: normal inspection of the chest and no crepitus Resp: Effort & Inspection: normal respiratory effort Auscultation: clear to auscultation bilaterally, no rhonchi and no wheezes Cardio: Rate: regular rate Heart sounds: S1 normal heart sound present and S2 normal heart sound present GI: Inspection: Yes normal to inspection Palpation (GI): Soft to palpation, Tenderness to palpation present (GI) in the RLQ and in the RUQ, no guarding and not rigid : General: Yes CVA tenderness on the right Back/Spine/Pelvis: Other: No midline thoracic/lumbar spinous tenderness or step-offs. + lower thoracic paraspinal MSK tenderness Skin: Rashes: no rashes Wounds: no wounds Neuro: General: patient oriented x3, gait normal, tone normal, moves all extremities, no meningeal signs, no focal motor deficits and CN's II-XI intact bilaterally Cognition (Neuro): normal cognition Speech: No Abnormal speech present Gait exam (Neuro): Normal gait present Extrem: Other: + bilateral lower extremity pitting edema. Strength intact throughout. No saddle anesthesia General: Yes normal to inspection Course Course Course Narrative: -no leukocytosis. H&H at baseline. INR mildly supratherapeutic at 3.3 > patient instructed to hold for 2 days and have INR re-checked -renal function at baseline, labs otherwise unremarkable, UA negative CT chest w con IMPRESSION: 1. There is mild right-sided hydronephrosis with an obstructing 8 mm calculus in the proximal/mid right ureter. Additional 8 mm calculus in the upper pole of the right kidney. 2. There is a questionable acute/subacute mild compression deformity in the T11 vertebral body. Recommend clinical correlation to assess acuity. If clinically indicated, MRI of the thoracic/lumbar spine can be obtained to assess the acuity. 3. Cholelithiasis. 4. Atherosclerotic disease including coronary artery calcifications. Enlarged heart. 5. Nonspecific low volume mediastinal lymphadenopathy. 6. Mild emphysematous changes in the lungs. 7. Postsurgical changes in the right lung. 8. Colonic diverticulosis. >> case discussed with Urology, Dr. Storey who reported if patient is tolerating p.o. can follow-up in the office next week > patient has been tolerating p.o. in the ED, has been ambulatory in the ED, imaging results discussed including worrisome signs and symptoms and strict return precautions. She is to follow up with Urology, spinal surgery, and hold her Coumadin for 2 days. Patient and verbalized understanding feel safe for discharge home MDM - Fall MDM Narrative Medical decision making narrative: 79-year-old female with a past medical history hyperlipidemia, HTN, diabetes, AFib on digoxin, metoprolol, and Coumadin, s/p hysterectomy, lobectomy, presenting to the ED complaining of right-sided rib and abdominal pain radiating to left abdomen x1 week s/p mechanical fall down 3-4 stairs. On exam VSS, NAD, physical exam as above, no focal neuro deficits, no midline spinous tenderness. Concern for rib fracture or intrathoracic/intra-abdominal injury. Plan: Labs, UA, imaging, reassess Medical Records Attestation: I reviewed the patient's medical records. Lab Data Attestation: I reviewed the patient's lab results. Result diagrams: 06/18/20 17:42 06/18/20 17:42 Labs: Lab Results 06/18/20 06/18/20 06/18/20 Range/Units 17:42 17:42 17:42 WBC 8.8 (4.8-10.8) X10*3/uL RBC 5.35 (4.20-5.50) X10*6/uL Hgb 10.9 L (12.0-16.0) g/dl Hct 36.7 L (37-47) % MCV 68.6 L (80-98) fL MCH 20.4 L (27.0-33.0) pg MCHC 29.7 L (31.0-35.0) g/dl RDW 21.0 H (11.0-16.0) % Plt Count 439 H (160-400) X10*3/uL MPV 8.9 L (9.4-12.3) fL Immature Gran % (Auto) 0.3 (0.0-0.4) % Neut % (Auto) 67.0 (45-73) % Lymph % (Auto) 18.3 L (20-40) % [place] % (Auto) 10.0 (2-11) % Eos % (Auto) 3.8 (0-4) % Baso % (Auto) 0.6 (0-2) % Lymph # (Auto) 1.6 (1.2-4.9) X10*3/uL [place] # (Auto) 0.9 (0.1-1.2) X10*3/uL Eos # (Auto) 0.3 (0.0-0.4) X10*3/uL Baso # (Auto) 0.1 (0.0-0.2) X10*3/uL Abs Immat Gran (auto) 0.03 (0.00-0.03) X10*3/uL Absolute Neuts (auto) 5.9 (2.0-8.3) X10*3/uL Absolute Nucleated RBC 0.000 (0.0-0.012) X10*3/uL Nucleated RBC % (auto) 0.0 (0.0-0.2) /100WBC PT 39.5 H D (10.8-13.0) SEC INR 3.3 H (0.9-1.1) APTT 55.1 H (24.1-38.0) SEC Sodium 136 (135-145) mmol/L Potassium 5.0 (3.3-5.1) mmol/L Chloride 98 (96-108) mmol/L Carbon Dioxide 28 (22-29) mmol/L Anion Gap 15 (12-20) BUN 17 H (9-16) mg/dL Creatinine 0.78 (0.5-1.4) mg/dL Estim Creat Clear Calc 54.1 Estimated GFR > 60 Random Glucose 192 H D (60-115) mg/dL Calcium 9.5 (8.4-10.2) mg/dL Magnesium 2.1 (1.6-2.6) mg/dL Total Bilirubin 0.6 (0.0-1.0) mg/dL Direct Bilirubin 0.2 (0.0-0.5) mg/dL AST 22 D (5-31) U/L ALT 19 (0-31) U/L Alkaline Phosphatase 70 D (39-117) U/L B-Natriuretic Peptide (<100) pg/mL Total Protein 8.0 (6.5-8.0) g/dL Albumin 4.4 (3.5-5.0) g/dL Lipase 60 (8-78) U/L Urine Color Urine Appearance Urine pH (5.0-8.0) Ur Specific [place] (1.005-1.025) Urine Protein (NEG-TRACE) MG/DL Urine Glucose (UA) (NEG) MG/DL Urine Ketones (NEG) MG/DL Urine Blood (NEG) Urine Nitrite (NEG) Ur Leukocyte Esterase (NEG) 06/18/20 06/18/20 Range/Units 17:42 17:42 WBC (4.8-10.8) X10*3/uL RBC (4.20-5.50) X10*6/uL Hgb (12.0-16.0) g/dl Hct (37-47) % MCV (80-98) fL MCH (27.0-33.0) pg MCHC (31.0-35.0) g/dl RDW (11.0-16.0) % Plt Count (160-400) X10*3/uL MPV (9.4-12.3) fL Immature Gran % (Auto) (0.0-0.4) % Neut % (Auto) (45-73) % Lymph % (Auto) (20-40) % [place] % (Auto) (2-11) % Eos % (Auto) (0-4) % Baso % (Auto) (0-2) % Lymph # (Auto) (1.2-4.9) X10*3/uL [place] # (Auto) (0.1-1.2) X10*3/uL Eos # (Auto) (0.0-0.4) X10*3/uL Baso # (Auto) (0.0-0.2) X10*3/uL Abs Immat Gran (auto) (0.00-0.03) X10*3/uL Absolute Neuts (auto) (2.0-8.3) X10*3/uL Absolute Nucleated RBC (0.0-0.012) X10*3/uL Nucleated RBC % (auto) (0.0-0.2) /100WBC PT (10.8-13.0) SEC INR (0.9-1.1) APTT (24.1-38.0) SEC Sodium (135-145) mmol/L Potassium (3.3-5.1) mmol/L Chloride (96-108) mmol/L Carbon Dioxide (22-29) mmol/L Anion Gap (12-20) BUN (9-16) mg/dL Creatinine (0.5-1.4) mg/dL Estim Creat Clear Calc Estimated GFR Random Glucose (60-115) mg/dL Calcium (8.4-10.2) mg/dL Magnesium (1.6-2.6) mg/dL Total Bilirubin (0.0-1.0) mg/dL Direct Bilirubin (0.0-0.5) mg/dL AST (5-31) U/L ALT (0-31) U/L Alkaline Phosphatase (39-117) U/L B-Natriuretic Peptide 64 (<100) pg/mL Total Protein (6.5-8.0) g/dL Albumin (3.5-5.0) g/dL Lipase (8-78) U/L Urine Color STRAW Urine Appearance CLEAR Urine pH 6.5 (5.0-8.0) Ur Specific [place] 1.010 (1.005-1.025) Urine Protein NEG (NEG-TRACE) MG/DL Urine Glucose (UA) NEG (NEG) MG/DL Urine Ketones NEG (NEG) MG/DL Urine Blood NEG (NEG) Urine Nitrite NEG (NEG) Ur Leukocyte Esterase NEG (NEG) Discharge Plan Discharge Clinical Impression: Hydronephrosis with renal and ureteral calculous obstruction, Fall, Elevated INR Compression fracture of T11 vertebra Qualifiers: Encounter type: initial encounter Qualified Code(s): S22.080A - Wedge compression fracture of T11-T12 vertebra, initial encounter for closed fracture Patient Disposition: Home, Self-Care Instructions: Kidney Stones (ED), Vertebral Compression Fracture (ED), Elevated INR (ED) Additional Instructions: Your CT scan is showing a obstructing stone in your right ureter/kidney, this will likely require an intervention by Urology, you need to follow-up in the office next week, call to make an appointment Additionally you have a questionable new T11 vertebral body fracture, follow-up with doing when orthopedics, as well as her primary care doctor. Your INR was very elevated, hold for 2 days and have rechecked If you develop persistent or unremitting pain, pain becomes unbearable, nausea/vomiting, weakness, numbness, urinary incontinence or retention return to the ED immediately Tramadol is an opiate pain medication, take when pain is severe In addition take Tylenol. Flomax will help dilate your ureter to potentially passed a kidney stone [facility] [address], [place], [place] [id number] Prescriptions: New tamsulosin [Flomax] 0.4 mg capsule 0.4 mg PO DAILY Qty: 10 RF: 0 acetaminophen [Tylenol Extra Strength] 500 mg tablet 500 mg PO Q6H PRN (Reason: pain or fever) Qty: 20 RF: 0 tramadol 50 mg tablet 50 mg PO Q8H PRN (Reason: pain) 3 Days Qty: 9 RF: 0 No Action metformin 1,000 mg tablet 1,000 mg PO BID 90 Days Qty: 180 RF: 4 warfarin 2 mg tablet See Rx Instructions mg .ROUTE .COMPLEX Qty: 200 RF: 3 estradiol 0.01 % (0.1 mg/gram) cream 1 g vaginal 3XW Qty: 42.5 RF: 2 rosuvastatin 5 mg tablet 5 mg PO 3XW Qty: 39 RF: 0 digoxin 125 mcg (0.125 mg) tablet 125 mcg PO DAILY RF: 0 spironolactone 25 mg tablet 25 mg PO DAILY RF: 0 amlodipine 5 mg tablet 5 mg PO DAILY RF: 0 metoprolol succinate 50 mg tablet extended release 24 hr PO RF: 0 Fluzone HighDose Quad 20-21 PF 240 mcg/0.7 mL syringe IM RF: 0 insulin lispro 200 unit/mL (3 mL) insulin pen 35 unit subcut BEDTIME RF: 0 insulin glargine 100 unit/mL (3 mL) insulin pen See Rx Instructions subcut .COMPLEX RF: 0 omeprazole 20 mg capsule,delayed release(DR/EC) 20 mg PO DAILY RF: 0 famotidine 40 mg tablet 40 mg PO .q pm Qty: 30 RF: 5 ferrous fumarate 325 mg (106 mg iron) tablet 325 mg PO DAILY Qty: 30 RF: 4 docusate sodium 100 mg capsule 100 mg PO DAILY Qty: 30 RF: 0 Referrals: Hernando Solis MD [Physician] - 3 days Patricia Nicole MD [Primary Care Provider] - 2 days
[2020-06-18 17:56] LABS: INTERNATIONAL NORM RATIO 3.3 (0.9-1.1); Prothrombin Time 39.5 SEC (10.8-13.0)
[2020-06-18 18:00] LABS: Glucose Urine UA NEG (NEG); Leukocyte Esterase Urine NEG (NEG); Nitrite Urine NEG (NEG); PH 6.5 (5.0-8.0); Urine Blood NEG (NEG); Urine Ketones NEG (NEG); Urine Protein NEG (NEG-TRACE)
[2020-06-18 18:06] LABS: Partial Thromboplastin Time 55.1 SEC (24.1-38.0)
[2020-06-18 18:08] LABS: Appearance Urine CLEAR; Color Urine STRAW
[2020-06-18 18:23] LABS: Alanine Aminotransferase 19 U/L (0-31); Albumin Level 4.4 g/dL (3.5-5.0); Alkaline Phosphatase 70 U/L (39-117); Anion Gap 15 (12-20); Aspartate Amino Transferase 22 U/L (5-31); Bilirubin Direct 0.2 mg/dL (0.0-0.5); Bilirubin Total 0.6 mg/dL (0.0-1.0); Blood Urea Nitrogen 17 mg/dL (9-16); Calcium 9.5 mg/dL (8.4-10.2); Carbon Dioxide 28 mmol/L (22-29); Chloride 98 mmol/L (96-108); Creatinine Clr Calc Pharmacy 54.1; Estimated Glomerular Filt Rate > 60; Glucose Random 192 mg/dL (60-115); Lipase 60 U/L (8-78); Magnesium 2.1 mg/dL (1.6-2.6); Sodium 136 mmol/L (135-145)
[2020-06-18 18:52] LABS: B Type Natriuretic Peptide 64 pg/mL (<100)
[2020-06-18 20:00] VITALS: BP 129/60; RESP 18; O2SAT 98
== END 2020-06-18 21:46 | disposition home or self-care (01) ==
PROVIDERS: Physician Assistant; Emergency Provider Emergency Medicine; PCP Internal Medicine
DX: S22.080A Wedge compression fracture of T11-T12 vertebra, initial encounter for closed fracture (principal); N13.2 Hydronephrosis with renal and ureteral calculous obstruction; R79.89 Other specified abnormal findings of blood chemistry; I10 Essential (primary) hypertension; I48.91 Unspecified atrial fibrillation; W10.9XXA Fall (on) (from) unspecified stairs and steps, initial encounter; Y93.E2 Activity, laundry; Y92.009 Unspecified place in unspecified non-institutional (private) residence as the place of occurrence of the external cause; Y99.9 Unspecified external cause status; Z79.01 Long term (current) use of anticoagulants; Z79.899 Other long term (current) drug therapy; Z87.891 Personal history of nicotine dependence
CPT/HCPCS: 36415; 71260; 74177; 80048; 80076; 81003; 83690; 83735; 83880; 85025; 85610; 85730; 96360; 99284; Q9967

== ENCOUNTER → 2020-06-21 13:55 | Outpatient (BNVA) | payer MEDICARE, SELFPAY | PROVIDERS: PCP Internal Medicine; Visit Provider Internal Medicine | DX: I48.0 Paroxysmal atrial fibrillation (principal); Z79.01 Long term (current) use of anticoagulants; Z51.81 Encounter for therapeutic drug level monitoring | CPT/HCPCS: 85610; 99211 ==

== ENCOUNTER → 2020-06-25 10:41 | Outpatient (BNVA) | payer MEDICARE, SELFPAY | PROVIDERS: PCP Internal Medicine; Visit Provider Internal Medicine | DX: I48.0 Paroxysmal atrial fibrillation (principal); Z79.01 Long term (current) use of anticoagulants; Z51.81 Encounter for therapeutic drug level monitoring | CPT/HCPCS: 85610; 99211 ==

== ENCOUNTER → 2020-06-29 08:42 | Outpatient (BNVA) | payer MEDICARE, SELFPAY | PROVIDERS: PCP Internal Medicine; Visit Provider Urology | DX: Z13.89 Encounter for screening for other disorder (principal) | CPT/HCPCS: Q3014 ==

== ENCOUNTER → 2020-06-30 10:07 | Outpatient (BNVA) | payer MEDICARE, SELFPAY | PROVIDERS: PCP Internal Medicine; Visit Provider Internal Medicine | DX: I48.0 Paroxysmal atrial fibrillation (principal); Z79.01 Long term (current) use of anticoagulants; Z51.81 Encounter for therapeutic drug level monitoring | CPT/HCPCS: 85610; 99211 ==

== ENCOUNTER 2020-07-07 07:08 | Day surgery (SDC) | payer MEDICARE, SELFPAY ==
[2020-07-07] VITALS (9 sets, daily range): BP systolic 110–171; BP diastolic 52–77; PULSE 44–56; RESP 16–20; TEMP 36.4–36.6; O2SAT 95–100; BMI 24.9
--- NOTE | ~2020-07-07 | XR_ITS ---
EXAMINATION: XR ABDOMEN KUB CLINICAL INDICATION: Nephrolithiasis. COMPARISON: CT of the abdomen and pelvis with contrast dated 06/18/2020. TECHNIQUE: AP view of the abdomen. FINDINGS: Round calcification noted in the right upper quadrant corresponds to the large cholelith in the gallbladder as appreciated on comparison 06/18/2020 CT examination. A calcification positioned approximately 0.8 cm inferior to the cholelith is noted which appears to project over the right renal shadow. Additionally, a calcification along the expected course of the right ureter measuring up to 0.8 cm is noted in likely corresponds to the ureteral calcification seen in the mid ureter on comparison 06/18/2020 CT examination. Incidental note is made of a bone island in the right iliac bone. Right mid abdominal surgical clips are appreciated. Surgical clips project over the right heart border and right lower lung. Bowel gas pattern is normal. Degenerative changes in the lumbar spine are appreciated. XR/XR KUB IMPRESSION: 1. Cholelithiasis. 2. Calcification measuring 0.8 cm in the expected course of the right mid ureter is appreciated likely corresponding to the calculus seen in the right mid ureter on comparison 10/18/2020 examination. 3. Question right renal calculus measuring up to 0.8 cm.
[2020-07-07 07:59] LABS: Glucose, Whole Blood 167 mg/dL (60-115)
[2020-07-07] MEDS: Lactated Ringers 1,000 ML 50 ML IV (08:07)
[2020-07-07 08:16] LABS: INTERNATIONAL NORM RATIO 1.1 (0.9-1.1); Prothrombin Time 12.5 SEC (10.8-13.0)
--- NOTE | 2020-07-07 09:10 | P.CONAN_ITS ---
[facility] Active Problems Active Problems: All Active Problems (Updated 06/28/20 @ 11:57 by Patricia alejandro MD) Right nephrolithiasis (Acute) Compression deformity of vertebra (Acute) Cholelithiasis (Acute) Early satiety (Acute) Constipation (Acute) Microcytic anemia (Acute) Heartburn (Acute) Atrophic vaginitis (Acute) Osteopenia (Acute) Osteoarthritis of knees, bilateral (Acute) Atrial fibrillation (Acute) Essential hypertension (Acute) Dyslipidemia (Acute) Type 2 diabetes mellitus with kidney complication, with long-term current use of insulin (Acute) Type 2 diabetes mellitus with diabetic neuropathy, with long-term current use of insulin (Acute) 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, with long-term current use of insulin (Acute) Current use of anticoagulant therapy (Acute) Past Medical History Medical History Atrial fibrillation Atrophic vaginitis Cholelithiasis Compression deformity of vertebra Constipation Dyslipidemia Early satiety Essential hypertension Heartburn Microcytic anemia Osteoarthritis of knees, bilateral Osteopenia Right nephrolithiasis Type 2 diabetes mellitus with diabetic neuropathy, 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 Son No problems noted. Daughter No problems noted. Surgical History Surgical History History of hysterectomy History of lobectomy of lung History of lumbar discectomy History of total right knee replacement (TKR) Lumbar radiculopathy Social History Social History Alcohol intake: never Smoking Status: Never smoker Use of substances other than those prescribed or required for medical reasons: No Have you been hit, kicked, punched, or otherwise hurt by someone within the past year? If so, by whom?: No Advance Directives: No Advance Directives Information Provided: Yes Meds Allergies Allergy/AdvReac Type Severity Reaction Status Date / Time adhesive tape [Adhesive Tape] Allergy Mild CONTACT Verified 06/29/20 08:45 DERMATITIS cephalexin [CEPHALEXIN] Allergy Unknown SWELLING Verified 06/29/20 08:45 latex [Latex] Allergy Unknown RASH Verified 06/29/20 08:45 oxycodone [From PERCOCET] Allergy Unknown PER H&P Verified 06/29/20 08:45 watermelon [WATERMELON] Allergy Unknown ANAPHYLAXIS Verified 06/29/20 08:45 Biaxin AdvReac Intermediate plapitation Verified 06/29/20 08:45 s bacitracin [From Cortisporin] AdvReac Mild EYE Verified 06/29/20 08:45 IRRITATION hydrocortisone AdvReac Mild EYE Verified 06/29/20 08:45 [From Cortisporin] IRRITATION neomycin [From Cortisporin] AdvReac Mild EYE Verified 06/29/20 08:45 IRRITATION flecainide [From Tambocor] AdvReac Unknown HEART Verified 06/29/20 08:45 RACING lisinopril [LISINOPRIL] AdvReac Unknown cough, Verified 06/29/20 08:45 nausea Sulfa (Sulfonamide AdvReac Unknown PALPITATION Verified 06/29/20 08:45 Antibiotics) S [SULFA(SULFONAMIDE ANTIBIOTICS)] Active Medications: Current Medications Generic Name Dose Route Start Last Admin Trade Name Freq PRN Reason Stop Dose Admin Lactated Ringer's 1,000 mls @ 50 mls/hr 07/07/20 07:15 07/07/20 08:07 Lr IV 50 mls/hr .Q20H TASHA Administration Home Medications Medication Instructions Recorded Confirmed Last Taken Type amlodipine 5 mg tablet 5 mg PO DAILY 03/03/20 06/30/20 Unknown History digoxin 125 mcg (0.125 mg) tablet 125 mcg PO DAILY 03/03/20 06/30/20 07/07/20 History flu vacc [id number](65yr up)-PF 240 ml IM 03/03/20 06/30/20 Unknown History mcg/0.7 mL intramuscular syringe insulin glargine 100 unit/mL (3 See Rx Instructions SUBCUT .COMPLEX 03/03/20 Unknown History mL) subcutaneous pen insulin lispro 200 unit/mL (3 mL) 35 unit SUBCUT BEDTIME ml 03/03/20 06/30/20 Unknown History subcutaneous pen metoprolol succinate 50 mg mg PO 03/03/20 06/30/20 Unknown History tablet,extended release 24 hr spironolactone 25 mg tablet 25 mg PO DAILY 03/03/20 06/30/20 Unknown History IRON See Rx Instructions PO 06/30/20 06/30/20 07/01/20 History Exam Exam Date and Time: July 07, 2020 0910 Height,Weight and Vital Signs: Height 5 ft 4 in Weight 65.771 kg Last Vital Signs Temp 97.5 F 07/07/20 07:53 Pulse 51 07/07/20 07:53 Resp 20 07/07/20 07:53 BP 110/76 07/07/20 07:53 Pulse Ox 95 07/07/20 07:53 Pertinent Lab Results Pertinent Lab Results: Laboratory Tests 07/07/20 07/07/20 07:52 07:55 PT 12.5 D INR 1.1 POC Glucose 167 H Airway Mallampati Class: II TM Dist: >3cm Neck ROM: Full Assessment and Plan Assessment Anesthesia Assessment: Anesthesia Plan Discussed and Chart Reviewed Final Anesthetic Review NPO: Yes ASA Class: III Final Preanesthetic Review: No Changes in Pt Med Stat, Meds/Allgs Chart Reviewed, Consent Obtained/Reviewed and Anes Risks/Benef Reviewed Patient Risk: Intermediate Procedure Risk: Low Assessment/Block/Sedation in SS: Assess/Block/Sedation-SS Anesthetic Plan Anesthetic Plan: MAC: Disposition: Standard PACU
--- NOTE | 2020-07-07 10:07 | MHC.SHP ---
Pre-Procedural Eval Section A The patient is an INPATIENT: No Changes since office visit: No Cold of Flu in the past 2 weeks, No New Medical Problems, No Changes in Medication and No Patient answered all questions The History & Physical has been completed within 30 days and I have reviewed it.: Yes Section B Chief Complaint: calculus of kidney Allergies: Allergies Allergy/AdvReac Type Severity Reaction Status Date / Time adhesive tape [Adhesive Tape] Allergy Mild CONTACT Verified 06/29/20 08:45 DERMATITIS cephalexin [CEPHALEXIN] Allergy Unknown SWELLING Verified 06/29/20 08:45 latex [Latex] Allergy Unknown RASH Verified 06/29/20 08:45 oxycodone [From PERCOCET] Allergy Unknown PER H&P Verified 06/29/20 08:45 watermelon [WATERMELON] Allergy Unknown ANAPHYLAXIS Verified 06/29/20 08:45 Biaxin AdvReac Intermediate plapitation Verified 06/29/20 08:45 s bacitracin [From Cortisporin] AdvReac Mild EYE Verified 06/29/20 08:45 IRRITATION hydrocortisone AdvReac Mild EYE Verified 06/29/20 08:45 [From Cortisporin] IRRITATION neomycin [From Cortisporin] AdvReac Mild EYE Verified 06/29/20 08:45 IRRITATION flecainide [From Tambocor] AdvReac Unknown HEART Verified 06/29/20 08:45 RACING lisinopril [LISINOPRIL] AdvReac Unknown cough, Verified 06/29/20 08:45 nausea Sulfa (Sulfonamide AdvReac Unknown PALPITATION Verified 06/29/20 08:45 Antibiotics) S [SULFA(SULFONAMIDE ANTIBIOTICS)] Plan Diagnosis/Plan: Unchanged (right renal stone) I have reviewed the history and physical and performed a pertinent physical examination on my patient. No changes have occurred unless specified.
--- NOTE | 2020-07-07 10:18 | PC.NURSE ---
ambulated to br with cane need asst of one
--- NOTE | 2020-07-07 10:40 | PM.OP ---
Brief Operative Note Date of Service: 07/07/20 Pre-op diagnosis: right upper ureteric stone Post-op diagnosis: same Procedure: right ureter eswl Surgeon: Hernando Solis MD Anesthesia: MAC Estimated blood loss (mL): 0 Pathology: none sent Condition: stable Disposition: same day
--- NOTE | 2020-07-07 10:41 | W.PM.OPN ---
Operative Note Operative Note Date of Service: 07/07/20 Narrative: PreOperative Diagnosis: right ureteric stones Post Operative Diagnosis: right ureteric stones Procedure: ESWL Surgeon: Dr Hernando Solis Anesthesia: mac/sedation Indications for procedure: They understand ESWL may be a staged procedure and subsequent intervention may be required based on imaging after ESWL. They also understand there is a risk of bleeding, infection, damage to adjacent organs. Procedure: After informed consent was verified the patient was brought to the operating room and placed in a supine position. Anesthesia was performed per protocol. Safety pause time-out was performed. Imaging was in the room and laterality confirmed. Stone localized with fluroscopy to right ureter ESWL was performed. The 1st 500 shocks were performed at 60 hertz. These were performed with increasing power. Once maximum power was reached the rate was increased to 180 hertz. A total of 3000 shocks were given. Fluoroscopy showed stone disintegration. They tolerated procedure well and was transferred to the recovery area upon completion.
[2020-07-07] MEDS: Acetaminophen 325 MG TABLET 650 MG PO (11:57)
--- NOTE | 2020-07-07 14:36 | PC.NURSE ---
1257 PT ALL DRESSED AMB TO BR STEADY W ASST AND CANE, PT VOID CLEAR PINK TINGED URINE PLAN TO DC AREA WC
== END 2020-07-07 13:37 | disposition home or self-care (01) ==
PROVIDERS: Anesthesiology; PCP Internal Medicine; Visit Provider Urology
PROC: (CPT 50590; principal; 2020-07-07 09:10)
DX: N20.1 Calculus of ureter (principal); E11.21 Type 2 diabetes mellitus with diabetic nephropathy; E11.40 Type 2 diabetes mellitus with diabetic neuropathy, unspecified; E11.3219 Type 2 diabetes mellitus with mild nonproliferative diabetic retinopathy with macular edema, unspecified eye; I10 Essential (primary) hypertension; Z79.4 Long term (current) use of insulin; Z88.1 Allergy status to other antibiotic agents; Z88.2 Allergy status to sulfonamides; Z88.8 Allergy status to other drugs, medicaments and biological substances; Z91.040 Latex allergy status; Z79.899 Other long term (current) drug therapy
CPT/HCPCS: 50590; 36415; 74018; 82947; 85610

== ENCOUNTER → 2020-07-12 10:15 | Outpatient (BNVA) | payer MEDICARE, SELFPAY | PROVIDERS: PCP Internal Medicine; Visit Provider Internal Medicine | DX: I48.0 Paroxysmal atrial fibrillation (principal); Z51.81 Encounter for therapeutic drug level monitoring; Z79.01 Long term (current) use of anticoagulants | CPT/HCPCS: 85610; 99211 ==

== ENCOUNTER → 2020-07-13 08:09 | Outpatient (BNVA) | payer MEDICARE, SELFPAY | PROVIDERS: PCP Internal Medicine; Visit Provider Internal Medicine | DX: I48.21 Permanent atrial fibrillation (principal); I49.3 Ventricular premature depolarization; I10 Essential (primary) hypertension; I34.0 Nonrheumatic mitral (valve) insufficiency; I27.20 Pulmonary hypertension, unspecified | CPT/HCPCS: 93005; 99212 ==

== ENCOUNTER 2020-07-15 15:54 | Outpatient (REF) | payer MEDICARE, SELFPAY ==
--- NOTE | ~2020-07-15 | US_ITS ---
EXAMINATION: US RETROPERITONEAL LIMITED (RENAL ONLY) CLINICAL INFORMATION: Renal stones. COMPARISON: Renal ultrasound 09/11/2011. CT abdomen and pelvis 06/18/2020. TECHNIQUE: Real-time imaging of the kidneys. FINDINGS: RIGHT KIDNEY: 10.2 x 4.5 x 4.5 cm (SAG x AP x TRV). The kidney is normal in size, contour, and echogenicity. Renal cortical thickness is normal. No hydronephrosis. Lower pole 3.2 x 3.3 x 3.3 cm complex cyst, with septations measuring up to 3 mm in thickness. No internal vascularity is seen. Upper pole 8 mm and a 2 mm nonobstructing calculus. LEFT KIDNEY: 10.7 x 4.7 x 5.0 cm (SAG x AP x TRV). The kidney is normal in size, contour, and echogenicity. Renal cortical thickness is normal. No hydronephrosis. Several simple cysts. This includes upper pole 1.4 cm and a lower pole 2.4 cm cyst. Lower pole 5 mm calculus. US/US renal BI IMPRESSION: 1. Right renal 3.3 cm complex cyst, with septations. Recommend 6-month follow up. 2. Left renal cyst. 3. Bilateral nonobstructing calculi. This includes an 8 mm right renal calculus.
== END 2020-07-15 15:55 | disposition home or self-care (01) ==
LOC: HO.US 15:54
PROVIDERS: Visit Provider Urology
DX: I48.21 Permanent atrial fibrillation (principal); N20.0 Calculus of kidney; Z51.81 Encounter for therapeutic drug level monitoring; Z79.01 Long term (current) use of anticoagulants
CPT/HCPCS: 76775; 85610; 99211

== ENCOUNTER 2020-07-22 09:56 | Outpatient (REF) | payer MEDICARE, SELFPAY ==
[2020-07-22 12:29] LABS: MANUAL DIFF FLAG NO
[2020-07-22 12:35] LABS: Basophils Absolute Auto 0.1 X10*3/uL (0.0-0.2); Basophils Percent Auto 0.6 % (0-2); Eosinophils Absolute Auto 0.3 X10*3/uL (0.0-0.4); Hematocrit 38.5 % (37-47); Hemoglobin 11.5 g/dl (12.0-16.0); Imm Gran Abs Auto 0.04 X10*3/uL (0.00-0.03); Imm Gran Pct Auto 0.4 % (0.0-0.4); Lymphocytes Absolute Auto 1.8 X10*3/uL (1.2-4.9); Lymphocytes Percent Auto 19.9 % (20-40); Mean Corpuscular HGB Conc 29.9 g/dl (31.0-35.0); Mean Corpuscular Hemoglobin 21.1 pg (27.0-33.0); Mean Corpuscular Volume 70.6 fL (80-98); Mean Platelet Volume 9.1 fL (9.4-12.3); Monocytes Absolute Auto 0.8 X10*3/uL (0.1-1.2); Monocytes Percent Auto 8.4 % (2-11); Neutrophils Absolute Auto 6.1 X10*3/uL (2.0-8.3); Neutrophils Percent Auto 67.7 % (45-73); Platelet Count 412 X10*3/uL (160-400); Red Blood Count 5.45 X10*6/uL (4.20-5.50); Red Cell Distribution Width 21.8 % (11.0-16.0)
[2020-07-22 12:46] LABS: Glucose Urine UA NEG (NEG); Leukocyte Esterase Urine NEG (NEG); Nitrite Urine NEG (NEG); PH 5.5 (5.0-8.0); Urine Blood NEG (NEG); Urine Ketones NEG (NEG); Urine Protein NEG (NEG-TRACE)
[2020-07-22 12:48] LABS: Appearance Urine HAZY; Color Urine YELLOW
[2020-07-22 12:56] LABS: Anion Gap 16 (12-20); Blood Urea Nitrogen 15 mg/dL (9-16); Calcium 10.2 mg/dL (8.4-10.2); Carbon Dioxide 26 mmol/L (22-29); Chloride 99 mmol/L (96-108); Estimated Glomerular Filt Rate > 60; Potassium 4.9 mmol/L (3.3-5.1); Sodium 136 mmol/L (135-145)
--- NOTE | 2020-07-22 13:26 | ECG_ITS ---
Hook-up date: 2020-07-22 10:59:00 Duration: 23:50:00 Test Indications: PERMANENT AFIB Medications: 77181 QRS complexes 479 Ventricular ectopics which represent <1 % of total QRS comp. * Supraventricular ectopics which represent % of total QRS comp. * Paced QRS complexs which represent % of total QRS comp. VENTRICULAR ECTOPY 477 Isolated 0 Bigeminal Cycles 1 Couplets 0 Runs 0 Beats in Runs * Beats LONGEST at * BPM at :: -- * Beats FASTEST at * BPM at :: -- SUPRAVENTRICULAR ECTOPY * Isolated * Couplets * Runs * Beats in Runs * Beats LONGEST at * BPM at :: -- * Beats FASTEST at * BPM at :: -- HEART RATES 29 MIN at 03:16:15 2020-07-23 48 AVG 98 MAX at 12:08:53 2020-07-22 LONGEST RR 3.0320 secs at 03:31:12 2020-07-23 S-T LEVELS Channel 1 - 128 mm at 10:59:00 2020-07-22 - 128 mm at 10:59:00 2020-07-22 Channel 2 - 128 mm at 10:59:00 2020-07-22 - 128 mm at 10:59:00 2020-07-22 Channel 3 - 128 mm at 03:01:81 -- - 128 mm at 03:01:81 Basic rhythm Atrial fibrillation No long pauses. Frequent slow VR to AF with lowest HR of 29 bpm with average HR of 48 bpm Occasional Premature ventricular complexes No diary submitted Referred By: Geoff Callahan Overread By: TIMO GEORGE MD
[2020-07-22 13:57] LABS: Creatinine Urine 93.51 mg/dL; Protein/Creatinine Ratio, Ur 0.24 (<0.2); Total Protein Urine Random 22 mg/dL (<12)
== END 2020-07-22 09:57 | disposition home or self-care (01) ==
LOC: HO.LAB 09:56
PROVIDERS: Absent Provider Internal Medicine Nephrology; PCP Internal Medicine; Referring Provider Internal Medicine; Visit Provider Internal Medicine
DX: I12.9 Hypertensive chronic kidney disease with stage 1 through stage 4 chronic kidney disease, or unspecified chronic kidney disease (principal); E11.21 Type 2 diabetes mellitus with diabetic nephropathy; E11.22 Type 2 diabetes mellitus with diabetic chronic kidney disease; R80.8 Other proteinuria; I48.21 Permanent atrial fibrillation
CPT/HCPCS: 36415; 80051; 81003; 82310; 82565; 84156; 84520; 85025; 93226

== ENCOUNTER → 2020-07-28 09:59 | Outpatient (BNVA) | payer MEDICARE, SELFPAY | PROVIDERS: PCP Internal Medicine; Visit Provider Internal Medicine | DX: I48.0 Paroxysmal atrial fibrillation (principal); Z51.81 Encounter for therapeutic drug level monitoring; Z79.01 Long term (current) use of anticoagulants | CPT/HCPCS: 85610; 99211 ==

== ENCOUNTER → 2020-07-29 11:15 | Outpatient (BNVA) | payer MEDICARE, SELFPAY | PROVIDERS: PCP Internal Medicine; Visit Provider Urology | DX: N20.0 Calculus of kidney (principal) | CPT/HCPCS: Q3014 ==

== ENCOUNTER → 2020-08-18 10:48 | Outpatient (BNVA) | payer MEDICARE, SELFPAY | PROVIDERS: PCP Internal Medicine; Visit Provider Internal Medicine | DX: I48.0 Paroxysmal atrial fibrillation (principal); Z51.81 Encounter for therapeutic drug level monitoring; Z79.01 Long term (current) use of anticoagulants | CPT/HCPCS: 85610; 99211 ==

== ENCOUNTER → 2020-08-30 14:35 | Outpatient (REF) | payer MEDICARE, SELFPAY ==
--- NOTE | 2020-08-30 14:38 | CA_ITS ---
Transthoracic Echocardiogram Patient (Last, First, Middle): Aminah Kraft P Gender: Female Date of : 1940 Age: 80 Procedure Date: 08/30/2020 Procedure Type: Transthoracic Echocardiogram Location: OP Height: 162.56 cm Weight: 66.68 kg BSA: 1.72 m2 Heart Rate: bpm BP: 130 / 70 mmHg Orchestra Teacher: TRENT Dupont MD: Geoff Callahan MD Symptoms: I48.21 - Permanent atrial fibrillation Study Quality: Fair ECG Rhythm: Atrial Fibrillation Conclusions: - The left ventricular systolic function is normal. The visually estimated ejection fraction is between 55-60%. - The left atrium is severely dilated. - There is mild calcification of the aortic valve. - There is mild mitral annular calcification. There is mild mitral valve regurgitation. - There is mild tricuspid valve regurgitation. - Moderate pulmonary hypertension is present. - The inferior vena cava is mildly dilated and collapses less than 50% with inspiration. Findings Left Ventricle Normal left ventricular cavity size. There is normal left ventricular wall thickness. The left ventricular systolic function is normal. The visually estimated ejection fraction is between 55-60%. There is no evidence of regional wall motion abnormalities. Diastolic function is indeterminate on the basis of available data. Right Ventricle Normal right ventricular cavity size and systolic function. Atria The left atrium is severely dilated. The right atrium is moderately dilated. Aortic Valve There is mild calcification of the aortic valve. There is no aortic valve stenosis. There is no aortic valve regurgitation. Mitral Valve The mitral valve appears normal. There is mild mitral annular calcification. There is mild mitral valve regurgitation. There is no mitral valve stenosis. Pulmonic Valve The pulmonic valve was not well visualized. Tricuspid Valve Normal tricuspid valve structure. There is mild tricuspid valve regurgitation. The right ventricular systolic pressure is 56 mmHg. Moderate pulmonary hypertension is present. Great Vessels The aortic annulus, sinuses of valsalva, and asc aorta are normal in size. Venous The inferior vena cava is mildly dilated and collapses less than 50% with inspiration. Pericardium/Pleural There is no evidence of pericardial effusion. Prior Study Comparison Changes noted compared to prior study dated: 08/28/2018. See comments on IVC. Measurements 2D Linear Measurements IVSd: 0.80 0.6-0.9/0.6-1.0 cm LVIDd: 4.75 3.9-5.3/4.2-5.9 cm LVIDd Index: 2.76 2.4-3.2/2.2-3.1 cm/m2 LVIDs: 2.93 2.0-3.6 cm LVPWd: 0.93 0.7-1.1 cm Ao Root: 3.10 2.1-3.5 cm LA Diam: 4.70 2.7-3.8/3.0-4.0 cm LAIDs Index: 2.73 1.5-2.3 cm/m2 LV Mass: 172.18 67-162/88-224 g LV Mass Index: 100.10 43-95/49-115 g/m2 LVOT Diam: 2.00 3.0+(-)1.3 cm 2D Systolic Function EF 4C: 60.90 >55% EF 2C: 59.20 >55% EF BiP: 60.60 >55% Aortic Valve AoV Pk Sunil: 2.12 AoV Mn Sunil: 1.33 AoV VTI: 0.46 AoV Pk Grad: 18.00 Aov Mn Grad: 9.00 DAVID Cont.VTI: 1.93 LVOT LVOT Pk Sunil: 1.19 LVOT Mn Sunil: 0.78 LVOT VTI: 0.28 LVOT Pk Grad: 6.00 LVOT Mn Grad: 3.00 LVOT Diam: 2.00 LVOT Area: 3.14 Tricuspid Valve TR Pk Sunil: 3.20 TR Pk Grad: 41.00 RA Press: 15.00 RVSP: 56.00 Great Vessels Aorta Ao Root-2D: 3.10 2.0-3.7 cm Ao Asc: 2.80 2.1-3.4 cm Ao Arch: 2.50 Updated in Other Vendor System with Status of Final Geoff Callahan MD electronically signed on 08/30/2020 4:57:44 PM with status of Final
== END ==
LOC: HO.CARD 14:35
PROVIDERS: Visit Provider Internal Medicine
DX: I48.21 Permanent atrial fibrillation (principal)
CPT/HCPCS: 93306

== ENCOUNTER → 2020-09-02 13:21 | Outpatient (BNVA) | payer MEDICARE, SELFPAY | PROVIDERS: PCP Internal Medicine; Referring Provider Internal Medicine; Visit Provider Internal Medicine | DX: I48.21 Permanent atrial fibrillation (principal); I49.3 Ventricular premature depolarization; I10 Essential (primary) hypertension; I34.0 Nonrheumatic mitral (valve) insufficiency; I27.20 Pulmonary hypertension, unspecified | CPT/HCPCS: 99212 ==

== ENCOUNTER 2020-09-08 07:27 | Outpatient (REF) | payer MEDICARE, SELFPAY ==
[2020-09-08 11:16] LABS: MANUAL DIFF FLAG NO
[2020-09-08 11:38] LABS: Basophils Absolute Auto 0.1 X10*3/uL (0.0-0.2); Basophils Percent Auto 0.8 % (0-2); Eosinophils Absolute Auto 0.7 X10*3/uL (0.0-0.4); Eosinophils Percent Auto 8.1 % (0-4); Hematocrit 36.8 % (37-47); Hemoglobin 11.1 g/dl (12.0-16.0); Imm Gran Abs Auto 0.03 X10*3/uL (0.00-0.03); Imm Gran Pct Auto 0.4 % (0.0-0.4); Lymphocytes Absolute Auto 2.4 X10*3/uL (1.2-4.9); Lymphocytes Percent Auto 28.3 % (20-40); Mean Corpuscular HGB Conc 30.2 g/dl (31.0-35.0); Mean Corpuscular Hemoglobin 21.9 pg (27.0-33.0); Mean Corpuscular Volume 72.6 fL (80-98); Monocytes Absolute Auto 0.9 X10*3/uL (0.1-1.2); Monocytes Percent Auto 10.6 % (2-11); Neutrophils Absolute Auto 4.4 X10*3/uL (2.0-8.3); Neutrophils Percent Auto 51.8 % (45-73); Platelet Count 310 X10*3/uL (160-400); Red Blood Count 5.07 X10*6/uL (4.20-5.50); Red Cell Distribution Width 20.7 % (11.0-16.0); White Blood Count 8.6 X10*3/uL (4.8-10.8)
[2020-09-08 12:01] LABS: Alanine Aminotransferase 14 U/L (0-31); Anion Gap 13 (12-20); Aspartate Amino Transferase 18 U/L (5-31); Blood Urea Nitrogen 14 mg/dL (9-16); Calcium 9.6 mg/dL (8.4-10.2); Carbon Dioxide 28 mmol/L (22-29); Chloride 103 mmol/L (96-108); Estimated Glomerular Filt Rate > 60; Glucose Fasting 153 mg/dL (60-99); Iron 29 mcg/dL (30-160); Percent Iron Saturation 7 % (15-50); Potassium 4.1 mmol/L (3.3-5.1); Sodium 140 mmol/L (135-145); Total Iron Binding Capacity 429 mcg/dL (228-428); Unsaturated Iron Binding 400 ug/dL
[2020-09-08 12:05] LABS: Ferritin 12 ng/mL (10-250); Vitamin D 25-OH Total 41.2 ng/mL (>30)
[2020-09-08 12:33] LABS: Folate 16.1 ng/mL (> or = 4.0); Vitamin B12 < 146 pg/mL (200-900)
[2020-09-08 13:13] LABS: Estimated Average Glucose 160 mg/dL; Hemoglobin A1c % 7.2 %
== END 2020-09-08 07:28 | disposition home or self-care (01) ==
LOC: HO.HMGCLDS 07:27
PROVIDERS: PCP Internal Medicine; Visit Provider Internal Medicine
DX: D50.9 Iron deficiency anemia, unspecified (principal); E11.29 Type 2 diabetes mellitus with other diabetic kidney complication; E78.5 Hyperlipidemia, unspecified; I10 Essential (primary) hypertension; R12 Heartburn; Z79.4 Long term (current) use of insulin
CPT/HCPCS: 36415; 80048; 82306; 82607; 82728; 82746; 83036; 83540; 84450; 84460; 85025

== ENCOUNTER → 2020-09-15 10:53 | Outpatient (BNVA) | payer MEDICARE, SELFPAY | PROVIDERS: PCP Internal Medicine; Visit Provider Internal Medicine | DX: I48.0 Paroxysmal atrial fibrillation (principal); Z51.81 Encounter for therapeutic drug level monitoring; Z79.01 Long term (current) use of anticoagulants | CPT/HCPCS: 85610; 99211 ==

== ENCOUNTER → 2020-09-28 11:00 | Outpatient (BNVA) | payer MEDICARE, SELFPAY | PROVIDERS: PCP Internal Medicine; Visit Provider Internal Medicine | DX: I48.0 Paroxysmal atrial fibrillation (principal); Z51.81 Encounter for therapeutic drug level monitoring; Z79.01 Long term (current) use of anticoagulants | CPT/HCPCS: 85610; 99211 ==

== ENCOUNTER → 2020-10-01 10:58 | Outpatient (BNVA) | payer MEDICARE, SELFPAY | PROVIDERS: PCP Internal Medicine; Visit Provider Internal Medicine | DX: I48.0 Paroxysmal atrial fibrillation (principal); Z51.81 Encounter for therapeutic drug level monitoring; Z79.01 Long term (current) use of anticoagulants | CPT/HCPCS: 85610; 99211 ==

== ENCOUNTER → 2020-10-08 11:02 | Outpatient (BNVA) | payer MEDICARE, SELFPAY | PROVIDERS: PCP Internal Medicine; Visit Provider Internal Medicine | DX: I48.0 Paroxysmal atrial fibrillation (principal); Z51.81 Encounter for therapeutic drug level monitoring; Z79.01 Long term (current) use of anticoagulants | CPT/HCPCS: 85610; 99211 ==

== ENCOUNTER → 2020-10-15 13:06 | Outpatient (BNVA) | payer MEDICARE, SELFPAY | PROVIDERS: PCP Internal Medicine; Visit Provider Internal Medicine | DX: I48.21 Permanent atrial fibrillation (principal); Z51.81 Encounter for therapeutic drug level monitoring; Z79.01 Long term (current) use of anticoagulants | CPT/HCPCS: 85610; 99211 ==

== ENCOUNTER → 2020-10-28 13:04 | Outpatient (BNVA) | payer MEDICARE, SELFPAY | PROVIDERS: PCP Internal Medicine; Visit Provider Internal Medicine | DX: I48.21 Permanent atrial fibrillation (principal); Z79.01 Long term (current) use of anticoagulants; Z51.81 Encounter for therapeutic drug level monitoring | CPT/HCPCS: 85610; 99211 ==

== ENCOUNTER → 2020-11-12 12:59 | Outpatient (BNVA) | payer MEDICARE, SELFPAY | PROVIDERS: PCP Internal Medicine; Visit Provider Internal Medicine | DX: I48.21 Permanent atrial fibrillation (principal); Z51.81 Encounter for therapeutic drug level monitoring; Z79.01 Long term (current) use of anticoagulants | CPT/HCPCS: 85610; 99211 ==

== ENCOUNTER → 2020-11-18 14:53 | Outpatient (REF) | payer MEDICARE, SELFPAY ==
--- NOTE | 2020-11-18 07:27 | ECG_ITS ---
Hook-up date: 2020-11-18 15:15:00 Duration: 23:04:00 Test Indications: PERMANENT AFIB Medications: 01422 QRS complexes 9226 Ventricular ectopics which represent 11 % of total QRS comp. * Supraventricular ectopics which represent % of total QRS comp. * Paced QRS complexs which represent % of total QRS comp. VENTRICULAR ECTOPY 8726 Isolated 989 Bigeminal Cycles 190 Couplets 36 Runs 120 Beats in Runs 7 Beats LONGEST at 54 BPM at 09:19:14 2020-11-19 3 Beats FASTEST at 84 BPM at 13:47:33 2020-11-19 SUPRAVENTRICULAR ECTOPY * Isolated * Couplets * Runs * Beats in Runs * Beats LONGEST at * BPM at :: -- * Beats FASTEST at * BPM at :: -- HEART RATES 35 MIN at 04:31:17 2020-11-19 59 AVG 116 MAX at 14:07:48 2020-11-19 LONGEST RR 2.5280 secs at 02:32:21 2020-11-19 S-T LEVELS Channel 1 - 128 mm at 15:15:00 2020-11-18 - 128 mm at 15:15:00 2020-11-18 Channel 2 - 128 mm at 15:15:00 2020-11-18 - 128 mm at 15:15:00 2020-11-18 Channel 3 - 128 mm at 03:43:41 -- - 128 mm at 03:43:41 Basic rhythm Atrial fibrillation Frequent slow VR to AF, average HR of 59 bpm No significant pauses Frequent Premature ventricular complexes , 12% of total beats No diary submitted Referred By: Geoff Callahan Overread By: TIMO GEORGE MD
== END ==
LOC: HO.CARD 14:53
PROVIDERS: PCP Internal Medicine; Visit Provider Internal Medicine
DX: I48.21 Permanent atrial fibrillation (principal)
CPT/HCPCS: 93226

== ENCOUNTER → 2020-11-26 11:00 | Outpatient (BNVA) | payer MEDICARE, SELFPAY | PROVIDERS: PCP Internal Medicine; Visit Provider Internal Medicine | DX: I48.21 Permanent atrial fibrillation (principal); Z51.81 Encounter for therapeutic drug level monitoring; Z79.01 Long term (current) use of anticoagulants | CPT/HCPCS: 85610; 99211 ==

== ENCOUNTER → 2020-12-13 13:37 | Outpatient (BNVA) | payer MEDICARE, SELFPAY | PROVIDERS: PCP Internal Medicine; Referring Provider Internal Medicine; Visit Provider Internal Medicine | DX: I48.21 Permanent atrial fibrillation (principal); I49.3 Ventricular premature depolarization; I34.0 Nonrheumatic mitral (valve) insufficiency; I27.20 Pulmonary hypertension, unspecified; I10 Essential (primary) hypertension | CPT/HCPCS: 99212 ==

== ENCOUNTER 2020-12-14 06:47 | Outpatient (REF) | payer MEDICARE, SELFPAY ==
[2020-12-14 11:29] LABS: MANUAL DIFF FLAG NO
[2020-12-14 11:48] LABS: Estimated Average Glucose 146 mg/dL; Hemoglobin A1c % 6.7 %
[2020-12-14 11:50] LABS: Basophils Absolute Auto 0.1 X10*3/uL (0.0-0.2); Basophils Percent Auto 0.8 % (0-2); Eosinophils Absolute Auto 0.7 X10*3/uL (0.0-0.4); Eosinophils Percent Auto 8.4 % (0-4); Hematocrit 42.6 % (37-47); Hemoglobin 13.4 g/dl (12.0-16.0); Imm Gran Abs Auto 0.02 X10*3/uL (0.00-0.03); Imm Gran Pct Auto 0.3 % (0.0-0.4); Lymphocytes Percent Auto 25.3 % (20-40); Mean Corpuscular HGB Conc 31.5 g/dl (31.0-35.0); Mean Corpuscular Hemoglobin 26.6 pg (27.0-33.0); Mean Corpuscular Volume 84.5 fL (80-98); Mean Platelet Volume 10.7 fL (9.4-12.3); Monocytes Absolute Auto 0.9 X10*3/uL (0.1-1.2); Neutrophils Absolute Auto 4.3 X10*3/uL (2.0-8.3); Neutrophils Percent Auto 54.2 % (45-73); Platelet Count 278 X10*3/uL (160-400); Red Blood Count 5.04 X10*6/uL (4.20-5.50); Red Cell Distribution Width 17.7 % (11.0-16.0); White Blood Count 7.9 X10*3/uL (4.8-10.8)
[2020-12-14 12:09] LABS: Alanine Aminotransferase 13 U/L (0-31); Anion Gap 15 (12-20); Aspartate Amino Transferase 18 U/L (5-31); Blood Urea Nitrogen 16 mg/dL (9-16); Calcium 9.8 mg/dL (8.4-10.2); Carbon Dioxide 28 mmol/L (22-29); Chloride 101 mmol/L (96-108); Cholesterol 161 mg/dL; Estimated Glomerular Filt Rate > 60; Glucose Fasting 87 mg/dL (60-99); HDL Cholesterol 54 mg/dL; LDL Cholesterol Calculated 93 mg/dl; Potassium 4.5 mmol/L (3.3-5.1); Sodium 139 mmol/L (135-145); Triglycerides 74 mg/dL
[2020-12-14 12:32] LABS: Vitamin D 25-OH Total 40.1 ng/mL (>30)
[2020-12-14 13:18] LABS: Folate 15.4 ng/mL (> or = 4.0); Vitamin B12 213 pg/mL (200-900)
== END 2020-12-14 06:48 | disposition home or self-care (01) ==
LOC: HO.HMGCLDS 06:47
PROVIDERS: PCP Internal Medicine; Visit Provider Internal Medicine
DX: D50.9 Iron deficiency anemia, unspecified (principal); E11.29 Type 2 diabetes mellitus with other diabetic kidney complication; E11.3299 Type 2 diabetes mellitus with mild nonproliferative diabetic retinopathy without macular edema, unspecified eye; E11.40 Type 2 diabetes mellitus with diabetic neuropathy, unspecified; E53.8 Deficiency of other specified B group vitamins; E78.5 Hyperlipidemia, unspecified; I10 Essential (primary) hypertension; M85.80 Other specified disorders of bone density and structure, unspecified site; Z78.0 Asymptomatic menopausal state; Z79.01 Long term (current) use of anticoagulants; Z79.4 Long term (current) use of insulin
CPT/HCPCS: 36415; 80048; 80061; 82306; 82607; 82746; 83036; 84450; 84460; 85025

== ENCOUNTER → 2020-12-15 09:38 | Outpatient (BNVA) | payer MEDICARE, SELFPAY | PROVIDERS: PCP Internal Medicine; Visit Provider Internal Medicine | DX: I48.21 Permanent atrial fibrillation (principal); Z51.81 Encounter for therapeutic drug level monitoring; Z79.01 Long term (current) use of anticoagulants | CPT/HCPCS: 85610; 99211 ==

== ENCOUNTER → 2021-01-12 09:48 | Outpatient (BNVA) | payer MEDICARE, SELFPAY | PROVIDERS: PCP Internal Medicine; Visit Provider Internal Medicine | DX: I48.21 Permanent atrial fibrillation (principal); Z51.81 Encounter for therapeutic drug level monitoring; Z79.01 Long term (current) use of anticoagulants | CPT/HCPCS: 85610; 99211 ==

== ENCOUNTER 2021-01-26 11:14 | Outpatient (REF) | payer MEDICARE, SELFPAY ==
--- NOTE | ~2021-01-26 | US_ITS ---
EXAMINATION: US RETROPERITONEAL LIMITED (RENAL ONLY) CLINICAL INFORMATION: Calculus of kidney. COMPARISON: Renal ultrasound 07/15/2020. X-ray abdomen KUB 07/07/2020. CT abdomen and pelvis 06/18/2020. Abdominal ultrasound 09/19/2011. TECHNIQUE: Real-time imaging of the kidneys. FINDINGS: RIGHT KIDNEY: 10.7 x 4.4 x 5.8 cm (SAG x AP x TRV). The kidney is normal in size, contour, and echogenicity. Renal cortical thickness is normal. There is a 3.9 x 3.4 x 3.6 cm minimally complex cyst in the lower pole with single thin septation. There is a 1 x 2.4 x 0.8 cm stone in the upper pole. No hydronephrosis. LEFT KIDNEY: 10.6 x 4.7 x 5.4 cm (SAG x AP x TRV). The kidney is normal in size, contour, and echogenicity. Renal cortical thickness is normal. There are 3 renal cysts. There is a 2.1 x 1.6 x 1.9 cm simple cyst in the upper pole and 1.2 x 0.7 x 0.9 cm simple cyst in the upper pole. There is a minimally complex 2.5 x 2.4 x 2.5 cm cyst in the lower pole with single thin septation. There is a 2 x 3 mm stone in the lower pole. No hydronephrosis. US/US renal BI IMPRESSION: Bilateral renal cysts. Small bilateral renal stones.
== END 2021-01-26 11:15 | disposition home or self-care (01) ==
LOC: HO.US 11:14
PROVIDERS: PCP Internal Medicine; Visit Provider Urology
DX: N20.0 Calculus of kidney (principal)
CPT/HCPCS: 76775

== ENCOUNTER → 2021-02-09 13:43 | Outpatient (BNVA) | payer MEDICARE, SELFPAY | PROVIDERS: PCP Internal Medicine; Visit Provider Internal Medicine | DX: I48.21 Permanent atrial fibrillation (principal); Z51.81 Encounter for therapeutic drug level monitoring; Z79.01 Long term (current) use of anticoagulants | CPT/HCPCS: 85610; 99211 ==

== ENCOUNTER → 2021-02-25 08:21 | Outpatient (BNVA) | payer MEDICARE, SELFPAY | PROVIDERS: PCP Internal Medicine | DX: Z13.89 Encounter for screening for other disorder (principal) | CPT/HCPCS: 99212 ==

== ENCOUNTER → 2021-03-09 13:03 | Outpatient (BNVA) | payer MEDICARE, SELFPAY | PROVIDERS: PCP Internal Medicine; Visit Provider Internal Medicine | DX: I48.21 Permanent atrial fibrillation (principal); Z51.81 Encounter for therapeutic drug level monitoring; Z79.01 Long term (current) use of anticoagulants | CPT/HCPCS: 85610; 99211 ==

== ENCOUNTER → 2021-04-07 13:07 | Outpatient (BNVA) | payer MEDICARE, SELFPAY | PROVIDERS: PCP Internal Medicine; Visit Provider Internal Medicine | DX: I48.21 Permanent atrial fibrillation (principal); Z51.81 Encounter for therapeutic drug level monitoring; Z79.01 Long term (current) use of anticoagulants | CPT/HCPCS: 85610; 99211 ==

== ENCOUNTER 2021-04-21 12:49 | Outpatient (REF) | payer MEDICARE, SELFPAY ==
--- NOTE | ~2021-04-21 | MM_ITS ---
EXAMINATION: MM SCREENING DIGITAL BREAST TOMOSYNTHESIS, BILATERAL CLINICAL INFORMATION: Screening. Asymptomatic. The lifetime risk of breast cancer based on the Tyrer-Cuzick Model is 1.0%. COMPARISON: Mammography: April 10, 2020 and studies dating back to February 11, 2014 TECHNIQUE: Digital breast tomosynthesis is performed in both the craniocaudal and mediolateral oblique views along with computer-aided detection (CAD). Synthesized 2D images are generated from the tomosynthesis. FINDINGS: There are scattered areas of fibroglandular density (ACR BI-RADS breast composition Category b). There are no significant masses, abnormal calcifications, or other abnormalities. MM/MM tomosynthesis screening BI IMPRESSION: There are no significant changes from prior study. ASSESSMENT: BI-RADS 1: Negative RECOMMENDATION: Routine annual mammography screening. This patient's information was entered into a reminder system with a target due date for their next mammogram.
== END 2021-04-21 12:50 | disposition home or self-care (01) ==
LOC: HO.MAMMO 12:49
PROVIDERS: PCP Internal Medicine; Visit Provider Internal Medicine
DX: Z12.31 Encounter for screening mammogram for malignant neoplasm of breast (principal)
CPT/HCPCS: 77063; 77067

== ENCOUNTER → 2021-05-05 13:11 | Outpatient (BNVA) | payer MEDICARE, SELFPAY | PROVIDERS: PCP Internal Medicine; Visit Provider Internal Medicine | DX: I48.21 Permanent atrial fibrillation (principal); Z51.81 Encounter for therapeutic drug level monitoring; Z79.01 Long term (current) use of anticoagulants | CPT/HCPCS: 85610; 99211 ==

== ENCOUNTER → 2021-05-30 12:34 | Outpatient (BNVA) | payer MEDICARE, SELFPAY | PROVIDERS: PCP Internal Medicine; Referring Provider Internal Medicine; Visit Provider Internal Medicine | DX: I48.21 Permanent atrial fibrillation (principal); I49.3 Ventricular premature depolarization; I10 Essential (primary) hypertension; I34.0 Nonrheumatic mitral (valve) insufficiency; I27.20 Pulmonary hypertension, unspecified; R07.2 Precordial pain; R60.0 Localized edema | CPT/HCPCS: 93005; 99212 ==

== ENCOUNTER → 2021-06-02 12:59 | Outpatient (BNVA) | payer MEDICARE, SELFPAY | PROVIDERS: PCP Internal Medicine; Visit Provider Internal Medicine | DX: I48.21 Permanent atrial fibrillation (principal); Z51.81 Encounter for therapeutic drug level monitoring; Z79.01 Long term (current) use of anticoagulants | CPT/HCPCS: 85610; 99211 ==

== ENCOUNTER 2021-06-03 07:15 | Outpatient (REF) | payer MEDICARE, SELFPAY ==
[2021-06-03 11:27] LABS: MANUAL DIFF FLAG NO
[2021-06-03 11:33] LABS: Basophils Absolute Auto 0.1 X10*3/uL (0.0-0.2); Basophils Percent Auto 0.8 % (0-2); Eosinophils Absolute Auto 0.5 X10*3/uL (0.0-0.4); Eosinophils Percent Auto 5.7 % (0-4); Hematocrit 43.9 % (37.0-47.0); Imm Gran Abs Auto 0.03 X10*3/uL (0.00-0.03); Imm Gran Pct Auto 0.4 % (0.0-0.4); Lymphocytes Absolute Auto 2.1 X10*3/uL (1.2-4.9); Lymphocytes Percent Auto 25.8 % (20-40); Mean Corpuscular HGB Conc 31.9 g/dl (31.0-35.0); Mean Corpuscular Hemoglobin 28.5 pg (27.0-33.0); Mean Corpuscular Volume 89.2 fL (80.0-98.0); Mean Platelet Volume 10.4 fL (9.4-12.3); Monocytes Absolute Auto 0.8 X10*3/uL (0.1-1.2); Monocytes Percent Auto 10.2 % (2-11); Neutrophils Absolute Auto 4.7 x10*3/uL (2.0-8.3); Neutrophils Percent Auto 57.1 % (45-73); Platelet Count 273 X10*3/uL (160-400); Red Blood Count 4.92 X10*6/uL (4.20-5.50); Red Cell Distribution Width 14.3 % (11.0-16.0); White Blood Count 8.3 X10*3/uL (4.8-10.8)
[2021-06-03 11:52] LABS: Alanine Aminotransferase 16 U/L (0-31); Anion Gap 14 (12-20); Aspartate Amino Transferase 17 U/L (5-31); Blood Urea Nitrogen 15 mg/dL (9-16); Carbon Dioxide 29 mmol/L (22-29); Chloride 102 mmol/L (96-108); Cholesterol 180 mg/dL; Estimated Glomerular Filt Rate > 60; Glucose Fasting 112 mg/dL (60-99); HDL Cholesterol 48 mg/dL; LDL Cholesterol Calculated 108 mg/dl; Potassium 4.6 mmol/L (3.3-5.1); Sodium 140 mmol/L (135-145); Triglycerides 124 mg/dL
[2021-06-03 11:56] LABS: Estimated Average Glucose 160 mg/dL; Hemoglobin A1c % 7.2 %
[2021-06-03 12:16] LABS: Vitamin D 25-OH Total 40.8 ng/mL (>30)
[2021-06-03 12:31] LABS: Folate 15.7 ng/mL (> or = 4.0); Vitamin B12 325 pg/mL (200-900)
== END 2021-06-03 07:16 | disposition home or self-care (01) ==
LOC: HO.HMGCLDS 07:15
PROVIDERS: Visit Provider Internal Medicine
DX: E78.5 Hyperlipidemia, unspecified (principal); I10 Essential (primary) hypertension; E53.8 Deficiency of other specified B group vitamins; M85.80 Other specified disorders of bone density and structure, unspecified site; E11.29 Type 2 diabetes mellitus with other diabetic kidney complication; Z79.4 Long term (current) use of insulin
CPT/HCPCS: 36415; 80048; 80061; 82306; 82607; 82746; 83036; 84450; 84460; 85025

== ENCOUNTER → 2021-06-14 09:24 | Outpatient (REF) | payer MEDICARE, SELFPAY ==
--- NOTE | ~2021-06-14 | NM_ITS ---
Lexiscan Myocardial perfusion study Indication: Chest pain, assess for coronary disease and ischemia Technique: The patient was brought in for a Lexiscan perfusion study on 06/14/2021 and was injected 0.4 mg of Lexiscan intravenously. Within a minute of this injection 25 mCi of sestamibi was given intravenously. Images were obtained using the SPECT gamma camera interlaced with the gating device. Images were obtained in supine position. Resting perfusion study was performed on 06/16/2021. Patient was administered 25 mCi of sestamibi intravenously at rest. Images were then obtained in supine position. Total DLP 98mGy-cm. Images were processed with the software and compared side to side in short axis, horizontal long axis and vertical long axis views. Findings: Raw acquisition was reviewed. Arms by the patient's side. The stress perfusion study showed mildly diminished tracer uptake in the basal part of inferoseptal wall. There is improvement with CT attenuation correction and hence he could be from diaphragmatic attenuation artifact. Overall, no obvious perfusion defect on comparison of uncorrected and corrected images. The gated study shows normal LV systolic function with calculated LVEF of 63%. LV cavity is normal in size. In the gated study, there is basal inferoseptal hypokinesis. Resting study shows diminished tracer uptake in the inferior wall. There is improvement with CT attenuation suggestive of diaphragmatic attenuation artifact. Gating at rest with ejection fraction at 65%. Basal inferoseptal hypokinesis. The findings are consistent with fixed basal inferoseptal defect. No reversible defects. NM/NM cardiolite stress test Impression: 1. Myocardial perfusion imaging study shows no evidence of ischemia. Fixed basal inferoseptal defect that could be from artifact or nontransmural infarct. 2. Gated LVEF is 63% during stress and 65% during rest. 3. Transient ischemic dilatation not present. EKG component of the test reported separately.
--- NOTE | 2021-06-14 09:30 | CA_ITS ---
Acquisition Time: 2021-06-14 09:48:34 Total Exercise Time: 00:02:00 Test Indications: Abnormal ECG Medications: SEE H Protocol: LEXISCAN Max HR: 114 BPM 82% of Pred: 138 BPM Max BP: 142/068 mmHG Max Work Load: 1.0 METS Pharmacological stress test with Lexiscan injection, while sitting and kicking her legs, without anginal symptoms, with isolated PVC, with normotensive response to injection, with nondiagnostic EKG for ischemia. In recovery she reported feeling hot, nausea, sob which was treated with Aminophylline 75mg IVP to reverse Lexiscan with resolution of symptoms. Nuclear images pending. Test reviewed with Dr Callahan. Referred By: Geoff Callahan Overread By: LIUDMILA QUINTEROS
== END ==
LOC: HO.CARD 09:24
PROVIDERS: Visit Provider Internal Medicine
DX: R07.2 Precordial pain (principal)
CPT/HCPCS: 78452; 93017; A9500; J0280; J2785

== ENCOUNTER → 2021-06-30 13:08 | Outpatient (BNVA) | payer MEDICARE, SELFPAY | PROVIDERS: PCP Internal Medicine; Visit Provider Internal Medicine | DX: I48.19 Other persistent atrial fibrillation (principal); Z79.01 Long term (current) use of anticoagulants; Z51.81 Encounter for therapeutic drug level monitoring | CPT/HCPCS: 85610; 99211 ==

== ENCOUNTER 2021-07-21 09:11 | Outpatient (REF) | payer MEDICARE, SELFPAY ==
--- NOTE | ~2021-07-21 | US_ITS ---
EXAMINATION: US RETROPERITONEAL LIMITED (RENAL ONLY) CLINICAL INFORMATION: Calculus of kidney. COMPARISON: Renal ultrasound 01/26/2021 and 07/15/2020. X-ray KUB 07/07/2020. CT of abdomen and pelvis 06/18/2020. TECHNIQUE: Real-time imaging of the kidneys. FINDINGS: RIGHT KIDNEY: 10.2 x 5.1 x 5.4 cm (SAG x AP x TRV). The kidney is normal in size, contour, and echogenicity. Renal cortical thickness is normal. No hydronephrosis. There is anechoic cyst lower pole measuring 3.1 x 2 0.1 to 1.8 cm and an echogenic stone in the upper pole measuring 0.9 x 0.3 cm. LEFT KIDNEY: 10.6 x 5.0 x 5.5 cm (SAG x AP x TRV). The kidney is normal in size, contour, and echogenicity. Renal cortical thickness is normal. No renal calculi or hydronephrosis. There are anechoic cysts in the upper pole measuring 2.1 x 1.5 x 1.8 cm, 1.3 x 0.5 x 1.2 cm and a cyst with septation in the lower pole measuring 2.4 x 2.2 x 2.3 cm. There is echogenic calcification lower pole measuring 0.6 x 0.2 cm. US/US renal BI IMPRESSION: Bilateral simple renal cyst with a complex Bosniak type II cyst with septation in the lower pole left kidney. Nonobstructive echogenic stones right kidney upper pole and scattered calcification in the lower pole left kidney.
== END 2021-07-21 09:12 | disposition home or self-care (01) ==
LOC: HO.US 09:11
PROVIDERS: Visit Provider Urology
DX: N20.0 Calculus of kidney (principal)
CPT/HCPCS: 76775

== ENCOUNTER → 2021-07-28 13:01 | Outpatient (BNVA) | payer MEDICARE, SELFPAY | PROVIDERS: PCP Internal Medicine; Visit Provider Internal Medicine | DX: I48.21 Permanent atrial fibrillation (principal); Z79.01 Long term (current) use of anticoagulants; Z51.81 Encounter for therapeutic drug level monitoring | CPT/HCPCS: 85610; 99211 ==

== ENCOUNTER 2021-08-08 10:14 | Outpatient (REF) | payer MEDICARE, SELFPAY ==
[2021-08-08 11:06] LABS: MANUAL DIFF FLAG NO
[2021-08-08 12:06] LABS: Basophils Percent Auto 0.6 % (0-2); Eosinophils Absolute Auto 0.2 X10*3/uL (0.0-0.4); Eosinophils Percent Auto 3.1 % (0-4); Hematocrit 44.4 % (37.0-47.0); Hemoglobin 14.4 g/dl (12.0-16.0); Imm Gran Abs Auto 0.04 X10*3/uL (0.00-0.03); Imm Gran Pct Auto 0.6 % (0.0-0.4); Lymphocytes Absolute Auto 1.4 X10*3/uL (1.2-4.9); Lymphocytes Percent Auto 19.1 % (20-40); Mean Corpuscular HGB Conc 32.4 g/dl (31.0-35.0); Mean Corpuscular Hemoglobin 28.9 pg (27.0-33.0); Mean Platelet Volume 10.3 fL (9.4-12.3); Monocytes Absolute Auto 0.6 X10*3/uL (0.1-1.2); Monocytes Percent Auto 8.5 % (2-11); Neutrophils Absolute Auto 4.9 x10*3/uL (2.0-8.3); Neutrophils Percent Auto 68.1 % (45-73); Platelet Count 273 X10*3/uL (160-400); Red Blood Count 4.99 X10*6/uL (4.20-5.50); Red Cell Distribution Width 14.2 % (11.0-16.0); White Blood Count 7.2 X10*3/uL (4.8-10.8)
[2021-08-08 12:29] LABS: Albumin Level 4.1 g/dL (3.5-5.0); Anion Gap 16 (12-20); Blood Urea Nitrogen 16 mg/dL (9-16); Carbon Dioxide 26 mmol/L (22-29); Chloride 101 mmol/L (96-108); Estimated Glomerular Filt Rate 57; Phosphorus 3.2 mg/dL (2.7-4.5); Potassium 5.2 mmol/L (3.3-5.1); Sodium 138 mmol/L (135-145)
[2021-08-08 14:01] LABS: Appearance Urine CLEAR; Color Urine YELLOW; Glucose Urine UA NEG (NEG); Leukocyte Esterase Urine NEG (NEG); Nitrite Urine NEG (NEG); PH 5.5 (5.0-8.0); Urine Blood NEG (NEG); Urine Ketones NEG (NEG); Urine Protein NEG (NEG-TRACE)
[2021-08-08 14:31] LABS: RBC Urine 0 /HPF (0); Squamous Epithelial Cell Urine TRACE /LPF; WBC Urine 0-2 /HPF (0-4)
[2021-08-10 13:11] LABS: PTHI 21 pg/mL (16-77)
== END 2021-08-08 10:15 | disposition home or self-care (01) ==
LOC: HO.LAB 10:14
PROVIDERS: PCP Internal Medicine; Visit Provider Internal Medicine Nephrology
DX: E11.21 Type 2 diabetes mellitus with diabetic nephropathy (principal); R80.1 Persistent proteinuria, unspecified
CPT/HCPCS: 36415; 80051; 81001; 82040; 82310; 82565; 83735; 83970; 84100; 84156; 84520; 85025; 87086

== ENCOUNTER 2021-08-10 11:05 | Outpatient (REF) | payer MEDICARE, SELFPAY ==
[2021-08-10 14:24] LABS: Appearance Urine CLEAR; Color Urine OTHER; Glucose Urine UA NEG (NEG); Leukocyte Esterase Urine NEG (NEG); Nitrite Urine NEG (NEG); Urine Blood NEG (NEG); Urine Ketones NEG (NEG); Urine Protein NEG (NEG-TRACE)
[2021-08-10 16:15] LABS: Creatinine Urine 37.51 mg/dL; Microalbum/Creatinine Ratio Ur 319.9 ug/mg cr; Protein/Creatinine Ratio, Ur 0.51 (<0.2); Total Protein Urine Random 19 mg/dL (<12)
== END 2021-08-10 11:06 | disposition home or self-care (01) ==
LOC: HO.LNP 11:05
PROVIDERS: Visit Provider Internal Medicine Nephrology
DX: Z13.89 Encounter for screening for other disorder (principal)
CPT/HCPCS: 81003; 82043; 84156; 87086

== ENCOUNTER → 2021-08-23 08:05 | Outpatient (BNVA) | payer MEDICARE, SELFPAY | PROVIDERS: PCP Internal Medicine | DX: Z13.89 Encounter for screening for other disorder (principal) | CPT/HCPCS: Q3014 ==

== ENCOUNTER → 2021-08-26 13:04 | Outpatient (BNVA) | payer MEDICARE, SELFPAY | PROVIDERS: PCP Internal Medicine; Visit Provider Internal Medicine | DX: I48.21 Permanent atrial fibrillation (principal); Z79.01 Long term (current) use of anticoagulants; Z51.81 Encounter for therapeutic drug level monitoring | CPT/HCPCS: 85610; 99211 ==

== ENCOUNTER → 2021-09-09 13:00 | Outpatient (BNVA) | payer MEDICARE, SELFPAY | PROVIDERS: PCP Internal Medicine; Visit Provider Internal Medicine | DX: I48.19 Other persistent atrial fibrillation (principal); Z79.01 Long term (current) use of anticoagulants; Z51.81 Encounter for therapeutic drug level monitoring | CPT/HCPCS: 85610; 99211 ==

== ENCOUNTER → 2021-09-23 13:04 | Outpatient (BNVA) | payer MEDICARE, SELFPAY | PROVIDERS: PCP Internal Medicine; Visit Provider Internal Medicine | DX: I48.21 Permanent atrial fibrillation (principal); Z51.81 Encounter for therapeutic drug level monitoring; Z79.01 Long term (current) use of anticoagulants | CPT/HCPCS: 85610; 99211 ==

== ENCOUNTER 2021-10-04 18:24 | Emergency (ER) | payer MEDICARE, SELFPAY ==
--- NOTE | 2021-10-04 | ECG_ITS ---
Test Reason : CHEST PRESSURE Blood Pressure : / mmHG Vent. Rate : 066 BPM Atrial Rate : 000 BPM P-R Int : 000 ms QRS Dur : 098 ms QT Int : 430 ms P-R-T Axes : 000 -44 051 degrees QTc Int : 450 ms Atrial fibrillation Left axis deviation Minimal voltage criteria for LVH, may be normal variant ( [place] product ) Possible Anterior infarct , age undetermined Abnormal ECG When compared with ECG of 17-MAY-2020 20:04, No significant change was found Referred By: Generic ED Physician Electronically Signed By:Guille Saini
--- NOTE | ~2021-10-04 | XR_ITS ---
EXAMINATION: XR CHEST CLINICAL INFORMATION: Difficulty breathing COMPARISON: Chest radiograph 05/17/2020 TECHNIQUE: Frontal view of the chest was obtained. FINDINGS: Clear lungs. Similar blunting of the right costophrenic angle which corresponds to pleural parenchymal thickening on prior CT chest. No definite pleural effusion. No pneumothorax. Normal cardiomediastinal silhouette. Multiple surgical clips overlie the right hemithorax. XR/XR chest 1V IMPRESSION: No acute cardiopulmonary findings.
[2021-10-04 18:30] VITALS: BP 164/65; PULSE 78; RESP 18; TEMP 36.6; O2SAT 98; BMI 29.0
[2021-10-04 20:55] LABS: MANUAL DIFF FLAG NO
[2021-10-04 20:56] LABS: Basophils Percent Auto 0.4 % (0-2); Eosinophils Absolute Auto 0.2 X10*3/uL (0.0-0.4); Eosinophils Percent Auto 2.1 % (0-4); Hematocrit 46.3 % (37.0-47.0); Hemoglobin 15.2 g/dl (12.0-16.0); Imm Gran Abs Auto 0.03 X10*3/uL (0.00-0.03); Imm Gran Pct Auto 0.3 % (0.0-0.4); Lymphocytes Absolute Auto 1.7 X10*3/uL (1.2-4.9); Lymphocytes Percent Auto 16.6 % (20-40); Mean Corpuscular HGB Conc 32.8 g/dl (31.0-35.0); Mean Corpuscular Hemoglobin 28.1 pg (27.0-33.0); Mean Corpuscular Volume 85.6 fL (80.0-98.0); Mean Platelet Volume 9.5 fL (9.4-12.3); Monocytes Percent Auto 9.6 % (2-11); Neutrophils Absolute Auto 7.4 x10*3/uL (2.0-8.3); Platelet Count 276 X10*3/uL (160-400); Red Blood Count 5.41 X10*6/uL (4.20-5.50); Red Cell Distribution Width 14.5 % (11.0-16.0); White Blood Count 10.4 X10*3/uL (4.8-10.8)
[2021-10-04 21:09] LABS: Glucose, Whole Blood 190 mg/dL (60-115)
[2021-10-04 21:12] LABS: COVID-19 Test Negative (Negative)
[2021-10-04 21:20] LABS: Troponin-I High Sensitivity 10.3 ng/L (<3.5-17.0)
[2021-10-04 21:30] LABS: Alanine Aminotransferase 18 U/L (0-31); Albumin Level 4.5 g/dL (3.5-5.0); Alkaline Phosphatase 59 U/L (39-117); Anion Gap 17 (12-20); Aspartate Amino Transferase 20 U/L (5-31); Bilirubin Total 0.5 mg/dL (0.0-1.0); Blood Urea Nitrogen 16 mg/dL (9-16); Calcium 9.7 mg/dL (8.4-10.2); Carbon Dioxide 24 mmol/L (22-29); Chloride 102 mmol/L (96-108); Creatinine Clr Calc Pharmacy 46.9; Estimated Glomerular Filt Rate 59; Glucose Random 217 mg/dL (60-115); Potassium 4.6 mmol/L (3.3-5.1); Sodium 138 mmol/L (135-145); Total Protein 7.9 g/dL (6.5-8.0)
--- NOTE | 2021-10-04 23:40 | ED_ITS ---
HPI - SOB/Dyspnea General Chief Complaint: Dyspnea Stated Complaint: difficulty breathing Time Seen by Provider: 10/04/21 23:40 Source: patient Mode of arrival: wheelchair Limitations: no limitations History of Present Illness HPI Narrative: 81-year-old female with a history of permanent atrial fibrillation on Coumadin, diabetes on insulin, hypertension, hyperlipidemia, pulmonary hypertension, kidney stones, compression fracture of the spine, GERD who presents to the ER for evaluation of intermittent difficulty catching her breath for the last 1 week. She reports she has had episodes of this in the past but it has worsened over the last week. She reports these episodes occur when she is sitting and it feels difficult to take a deep breath and catch her breath. She gets very anxious and has a hard time keeping calm when this occurs. She reports that happens when her daughter talks about her son-in-law who has Guillain-[place] syndrome. It also happens randomly at other times. She reports she feels like her stomach is bloated and pushing up on her chest. She has early satiety and is so-so get an endoscopy at some point for further evaluation. She denies any chest pain, palpitations, cough, fever, chills, dyspnea on exertion. She is anticoagulated on Coumadin and her INR has been therapeutic. She has chronic lower extremity edema that is unchanged. She is a never smoker and denies any history of asthma or COPD. MD elicited complaint: shortness of breath Pertinent past history: diabetes Onset (ago): week(s) Timing: intermittent Severity: moderate Exacerbating factors: stress Relieving factors: rest Associated symptoms: denies other symptoms Treatment prior to arrival: none Related Data Home oxygen amount: none Home Medications Medication Instructions Recorded Confirmed amlodipine 5 mg tablet 5 mg PO DAILY 03/03/20 09/23/21 spironolactone 25 mg tablet 25 mg PO DAILY 03/03/20 09/23/21 warfarin 2 mg tablet See Rx Instructions .Route .COMPLEX 06/10/21 09/23/21 furosemide 20 mg tablet 20 mg PO 3XW 08/26/21 09/23/21 Previous Rx's Medication Instructions Recorded estradiol 0.01% (0.1 mg/gram) 1 g vaginal 3XW #42.5 grams 01/29/20 vaginal cream insulin glargine 100 unit/mL (3 51 unit (0.51 mL) subcut BEDTIME 10/15/20 mL) subcutaneous pen (Lantus #60 mL Solostar U-100 Insulin) insulin lispro 200 unit/mL (3 mL) 35 unit (0.175 mL) subcut BEDTIME 02/17/21 subcutaneous pen #6 mL metformin 1,000 mg tablet 1,000 mg PO BID #180 tabs 03/11/21 ferrous fumarate 324 mg (106 mg 324 mg PO DAILY #90 tabs 07/20/21 iron) tablet (Ferrocite) pen needle, diabetic 31 gauge x #100 ea 08/23/21 3/16 (BD Ultra-Fine Mini Pen Needle) cyanocobalamin (vitamin B-12) 1,000 mcg IM Q4W #3 mL 08/24/21 1,000 mcg/mL injection solution rosuvastatin 5 mg tablet 5 mg PO 3XW #39 tabs 08/25/21 warfarin 2 mg tablet See Rx Instructions .Route 09/23/21 .COMPLEX #90 tabs metoprolol succinate 50 mg 50 mg PO DAILY #90 tabs 09/26/21 tablet,extended release 24 hr polyethylene glycol 3350 17 17 g PO DAILY #119 grams 10/05/21 gram/dose oral powder (Miralax) Allergies Allergy/AdvReac Type Severity Reaction Status Date / Time adhesive tape [Adhesive Tape] Allergy Mild CONTACT Verified 09/23/21 13:11 DERMATITIS cephalexin [CEPHALEXIN] Allergy Unknown SWELLING Verified 09/23/21 13:11 latex [Latex] Allergy Unknown RASH Verified 09/23/21 13:11 oxycodone [From PERCOCET] Allergy Unknown PER H&P Verified 09/23/21 13:11 Biaxin AdvReac Intermediate plapitation Verified 09/23/21 13:11 s bacitracin [From Cortisporin] AdvReac Mild EYE Verified 09/23/21 13:11 IRRITATION hydrocortisone AdvReac Mild EYE Verified 09/23/21 13:11 [From Cortisporin] IRRITATION neomycin [From Cortisporin] AdvReac Mild EYE Verified 09/23/21 13:11 IRRITATION flecainide [From Tambocor] AdvReac Unknown HEART Verified 09/23/21 13:11 RACING lisinopril [LISINOPRIL] AdvReac Unknown cough, Verified 09/23/21 13:11 nausea Sulfa (Sulfonamide AdvReac Unknown PALPITATION Verified 09/23/21 13:11 Antibiotics) S [SULFA(SULFONAMIDE ANTIBIOTICS)] Review of Systems Review of Systems: Constitutional: No Fever, No Chills ENT/Mouth: No sore throat, No Rhinorrhea, No Swallowing Difficulty Cardiovascular: No Chest Pain, + SOB, No Orthopnea, +Edema Respiratory: No Cough, No Sputum, No Wheezing, No dyspnea Gastrointestinal: No Nausea, No Vomiting, No Diarrhea, No abdominal Pain, +Constipation, No Hematochezia, No Melena Genitourinary: No Dysuria, No Urinary Frequency, No Hematuria Musculoskeletal: No joint pain, No Myalgias Skin: No Skin Lesions, No rash Neuro: No Weakness, No Numbness, No Dizziness, No Headache Psych: + Anxiety/Panic, No Depression Heme/Lymph: No Bruising, No Lymphadenopathy Endocrine: No Polyuria, No Polydipsia [facility] Past Medical History Medical History (Updated 10/05/21 @ 00:43 by FIORELLA Wiggins) Atrophic vaginitis Compression deformity of vertebra Dyslipidemia Early satiety Essential hypertension Heartburn Microcytic anemia Non-rheumatic mitral regurgitation Osteoarthritis of knees, bilateral Osteopenia Permanent atrial fibrillation Pulmonary hypertension Renal cyst Right nephrolithiasis Type 2 diabetes mellitus with diabetic neuropathy, 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 Son No problems noted. Daughter No problems noted. Social History Social History Housing: House Alcohol intake: never Patient Tobacco Use Status: Former Tobacco user e-Cigarette/Vaping Use: Never Used Advance Directives: No service: No Current occupational status: retired Cognitive needs: No Hearing needs: No Vision needs: No Physical Exam Vital Signs: Vital Signs: Last Vital Signs Temp 97.9 F 10/04/21 18:30 Pulse 78 10/04/21 18:30 Resp 18 07/19/22 18:30 BP 164/65 H 10/04/21 18:30 Pulse Ox 98 10/04/21 18:30 O2 Del Method 10/04/21 18:30 BMI result Body Mass Index 29.0 Appearance: Alert. Oriented X3. No acute distress. Eyes: Pupils equal, round and reactive to light. ENT: Pharynx normal. Neck: Normal inspection. Neck supple. CVS: Normal heart rate and rhythm. Pulses normal. Respiratory: No respiratory distress. Breath sounds normal. Abdomen: Softly distended with epigastric tenderness. No rebound or guarding. +BS x4 Skin: Skin warm and dry. Normal skin color. Normal skin turgor. No rashes. Extremities: 2+ nonpitting lower extremity edema of the ankles and dorsum of the feet. No calf tenderness. Neuro: Oriented X 3. No motor deficit. No sensory deficit. Course Course Course Narrative: 81-year-old female presents to the ER with intermittent, episodic periods of difficulty catching her breath. They seem to be related to stress as well as possible abdominal distension and constipation pushing up on her thoracic area. On arrival to the ER she is breathing comfortably with normal oxygen saturations and clear lungs. Chest x-ray and lab workup have been ordered. Her EKG was done and is showing AFib, no changes from prior. Reevaluation(s) Reevaluation #1: Her chest x-ray is clear. BNP is normal. Lab workup is unremarkable. She appears well. She has good outpatient follow-up. We discussed initiation of a gentle laxative to help her normalize her bowels and help with abdominal distention that could be contributing to her shortness of breath. We also discussed how anxiety could be playing a role as well. She will follow-up with her primary care doctor, her char filter operator helper, and as well as a auto body builder apprentice for further evaluation of early satiety and abdominal bloating. We discussed return precautions that should prompt urgent re-evaluation the emergency room. Patient agrees with plan and is stable for discharge home. MDM - SOB/Dyspnea Medical Records Attestation: I reviewed the patient's medical records. Lab Data Attestation: I reviewed the patient's lab results. Result diagrams: 10/04/21 20:48 10/04/21 20:48 Labs: Lab Results 0710/04/21 10/04/21 Range/Units 20:33 20:48 20:48 WBC 10.4 (4.8-10.8) X10*3/uL RBC 5.41 (4.20-5.50) X10*6/uL Hgb 15.2 (12.0-16.0) g/dl Hct 46.3 (37.0-47.0) % MCV 85.6 (80.0-98.0) fL MCH 28.1 (27.0-33.0) pg MCHC 32.8 (31.0-35.0) g/dl RDW 14.5 (11.0-16.0) % Plt Count 276 (160-400) X10*3/uL MPV 9.5 (9.4-12.3) fL Immature Gran % (Auto) 0.3 (0.0-0.4) % Neut % (Auto) 71.0 (45-73) % Lymph % (Auto) 16.6 L (20-40) % [place] % (Auto) 9.6 (2-11) % Eos % (Auto) 2.1 (0-4) % Baso % (Auto) 0.4 (0-2) % Lymph # (Auto) 1.7 (1.2-4.9) X10*3/uL [place] # (Auto) 1.0 (0.1-1.2) X10*3/uL Eos # (Auto) 0.2 (0.0-0.4) X10*3/uL Baso # (Auto) 0.0 (0.0-0.2) X10*3/uL Abs Immat Gran (auto) 0.03 (0.00-0.03) X10*3/uL Absolute Neuts (auto) 7.4 (2.0-8.3) x10*3/uL Absolute Nucleated RBC 0.000 (0.0-0.012) X10*3/uL Nucleated RBC % (auto) 0.0 (0.0-0.2) /100WBC Sodium 138 (135-145) mmol/L Potassium 4.6 (3.3-5.1) mmol/L Chloride 102 (96-108) mmol/L Carbon Dioxide 24 (22-29) mmol/L Anion Gap 17 (12-20) BUN 16 (9-16) mg/dL Creatinine 0.91 (0.5-1.4) mg/dL Estim Creat Clear Calc 46.9 Estimated GFR 59 POC Glucose 190 H (60-115) mg/dL Random Glucose 217 H (60-115) mg/dL Calcium 9.7 (8.4-10.2) mg/dL Total Bilirubin 0.5 (0.0-1.0) mg/dL AST 20 (5-31) U/L ALT 18 (0-31) U/L Alkaline Phosphatase 59 (39-117) U/L Troponin I High Sens (<3.5-17.0) ng/L B-Natriuretic Peptide (<100) pg/mL Total Protein 7.9 (6.5-8.0) g/dL Albumin 4.5 (3.5-5.0) g/dL COVID-19 (LENNIE) (Negative) COVID-19 Clin Com 10/04/21 10/04/21 Range/Units 20:48 20:48 WBC (4.8-10.8) X10*3/uL RBC (4.20-5.50) X10*6/uL Hgb (12.0-16.0) g/dl Hct (37.0-47.0) % MCV (80.0-98.0) fL MCH (27.0-33.0) pg MCHC (31.0-35.0) g/dl RDW (11.0-16.0) % Plt Count (160-400) X10*3/uL MPV (9.4-12.3) fL Immature Gran % (Auto) (0.0-0.4) % Neut % (Auto) (45-73) % Lymph % (Auto) (20-40) % [place] % (Auto) (2-11) % Eos % (Auto) (0-4) % Baso % (Auto) (0-2) % Lymph # (Auto) (1.2-4.9) X10*3/uL [place] # (Auto) (0.1-1.2) X10*3/uL Eos # (Auto) (0.0-0.4) X10*3/uL Baso # (Auto) (0.0-0.2) X10*3/uL Abs Immat Gran (auto) (0.00-0.03) X10*3/uL Absolute Neuts (auto) (2.0-8.3) x10*3/uL Absolute Nucleated RBC (0.0-0.012) X10*3/uL Nucleated RBC % (auto) (0.0-0.2) /100WBC Sodium (135-145) mmol/L Potassium (3.3-5.1) mmol/L Chloride (96-108) mmol/L Carbon Dioxide (22-29) mmol/L Anion Gap (12-20) BUN (9-16) mg/dL Creatinine (0.5-1.4) mg/dL Estim Creat Clear Calc Estimated GFR POC Glucose (60-115) mg/dL Random Glucose (60-115) mg/dL Calcium (8.4-10.2) mg/dL Total Bilirubin (0.0-1.0) mg/dL AST (5-31) U/L ALT (0-31) U/L Alkaline Phosphatase (39-117) U/L Troponin I High Sens 10.3 (<3.5-17.0) ng/L B-Natriuretic Peptide 56 (<100) pg/mL Total Protein (6.5-8.0) g/dL Albumin (3.5-5.0) g/dL COVID-19 (LENNIE) Negative (Negative) COVID-19 Clin Com See Note ECG Data Attestation: I personally reviewed and interpreted this ECG as follows: ECG interpretation date: 10/05/21 Prior ECG tracings: available for review Interpretation: Atrial fibrillation, heart rate 66 beats per minute, left axis deviation, no ST segment elevation. no change from prior in May 2020. Critical Care Time Critical Care Time Critical Care Time: No Discharge Plan Discharge Clinical Impression: Early satiety, Constipation, Anxiety Patient Disposition: Home, Self-Care Instructions: Constipation (ED), Anxiety (ED) Additional Instructions: Your lab workup today was unremarkable. Your chest x-ray was clear. Your EKG was unchanged from prior. Your symptoms are most likely a combination of many things, including anxiety, constipation. You need to be evaluated for your abdominal ?fullness.? Recommend following up with GI doctor, name and number below. Recommend start taking MiraLax daily to help you have daily bowel movements. Recommend following up with the char filter operator helper. Recommend following up with her primary care doctor If you develop new or worsening symptoms call 911 or come back to the ER for fur ther evaluation. Prescriptions: New polyethylene glycol 3350 [Miralax] 17 gram/dose powder 17 g PO DAILY Qty: 119 0RF No Action estradiol 0.01 % (0.1 mg/gram) cream 1 g vaginal 3XW Qty: 42.5 2RF Lantus Solostar U-100 Insulin 100 unit/mL (3 mL) insulin pen 51 unit subcut BEDTIME Qty: 60 3RF insulin lispro 200 unit/mL (3 mL) insulin pen 35 unit subcut BEDTIME Qty: 6 5RF metformin 1,000 mg tablet 1,000 mg PO BID Qty: 180 3RF ferrous fumarate [Ferrocite] 324 mg (106 mg iron) tablet 324 mg PO DAILY Qty: 90 3RF (DME) pen needle, diabetic [BD Ultra-Fine Mini Pen Needle] 31 gauge x 3/16 needle See Rx Instructions .Route Qty: 100 4RF Rx Instructions: As directed cyanocobalamin (vitamin B-12) 1,000 mcg/mL solution 1,000 mcg IM Q4W Qty: 3 3RF rosuvastatin 5 mg tablet 5 mg PO 3XW Qty: 39 3RF warfarin 2 mg tablet See Rx Instructions .ROUTE .COMPLEX Qty: 90 1RF Protocol: Dose Management Condition: Sunday (Week One) Dose/Route: 4 mg Instruction: 2 x 2 mg tablets Condition: Sunday Dose/Route: 4 mg Instruction: 2 x 2 mg tablets Condition: Sunday Dose/Route: 4 mg Instruction: 2 x 2 mg tablets Condition: Sunday Dose/Route: 6 mg Instruction: 3 x 2 mg tablets Condition: Dose/Route: 4 mg Instruction: 2 x 2 mg tablets Condition: Sunday Dose/Route: 4 mg Instruction: 2 x 2 mg tablets Condition: Sunday Dose/Route: 6 mg Instruction: 3 x 2 mg tablets Condition: Sunday (Week Two) Dose/Route: 4 mg Instruction: 2 x 2 mg tablets Condition: Sunday Dose/Route: 4 mg Instruction: 2 x 2 mg tablets Condition: Sunday Dose/Route: 4 mg Instruction: 2 x 2 mg tablets Condition: Sunday Dose/Route: 6 mg Instruction: 3 x 2 mg tablets Condition: Dose/Route: 4 mg Instruction: 2 x 2 mg tablets Condition: Sunday Dose/Route: 4 mg Instruction: 2 x 2 mg tablets Condition: Sunday Dose/Route: 6 mg Instruction: 3 x 2 mg tablets Protocol Text: Adjustment Start Date: Sunday01/14/20 INR Value: 2.7 INR Date: 01/14/20 Additional Instructions: REVIEW FOOD LIST WEEKLY PLEASE CALL WITH ANY MEDICATION CHANGES OR ILLNESSES THAT LAST MORE THAN 2 DAYS TRY TO KEEP UP YOUR GREENS AND REDS Rx Instructions: 6mg (2mg) Sunday, Sunday, sunday,, Sunday and on Sunday 4mg (2mg) metoprolol succinate 50 mg tablet extended release 24 hr 50 mg PO DAILY Qty: 90 2RF spironolactone 25 mg tablet 25 mg PO DAILY amlodipine 5 mg tablet 5 mg PO DAILY furosemide 20 mg tablet 20 mg PO 3XW Rx Instructions: sun- sun- sun warfarin 2 mg tablet See Rx Instructions .ROUTE .COMPLEX Protocol: Dose Management Condition: Sunday (Week One) Dose/Route: 6 mg Instruction: 3 x 2 mg tablets Condition: Sunday Dose/Route: 6 mg Instruction: 3 x 2 mg tablets Condition: Sunday Dose/Route: 4 mg Instruction: 2 x 2 mg tablets Condition: Sunday Dose/Route: 6 mg Instruction: 3 x 2 mg tablets Condition: Dose/Route: 6 mg Instruction: 3 x 2 mg tablets Condition: Sunday Dose/Route: 6 mg Instruction: 3 x 2 mg tablets Condition: Sunday Dose/Route: 6 mg Instruction: 3 x 2 mg tablets Condition: Sunday (Week Two) Dose/Route: 6 mg Instruction: 3 x 2 mg tablets Condition: Sunday Dose/Route: 6 mg Instruction: 3 x 2 mg tablets Condition: Sunday Dose/Route: 4 mg Instruction: 2 x 2 mg tablets Condition: Sunday Dose/Route: 6 mg Instruction: 3 x 2 mg tablets Condition: Dose/Route: 6 mg Instruction: 3 x 2 mg tablets Condition: Sunday Dose/Route: 6 mg Instruction: 3 x 2 mg tablets Condition: Sunday Dose/Route: 6 mg Instruction: 3 x 2 mg tablets Protocol Text: Adjustment Start Date: Sunday09/23/21 INR Value: 2.3 INR Date: 09/23/21 Recheck Date: 10/23/21 Additional Instructions: cont to eat a mix of reds and greens Rx Instructions: Take 6mg (3 Tabs) by mouth for 6 Days/Week and 4mg (2 Tabs) for 1 Days/week (sunday) Referrals: Brandon Suggs [Physician] - (Early satiety, constipation) Patricia Nicole MD [Primary Care Provider] - Interventions: ED Discharge Assessment Last Done: 10/05/21 00:49 Discharge Date/Time: 10/05/21 00:50
[2021-10-05 00:07] LABS: B Type Natriuretic Peptide 56 pg/mL (<100)
== END 2021-10-05 00:50 | disposition home or self-care (01) ==
PROVIDERS: Physician Assistant; Emergency Provider Internal Medicine; PCP Internal Medicine
DX: F41.1 Generalized anxiety disorder (principal); F43.0 Acute stress reaction; R68.81 Early satiety; R06.02 Shortness of breath; K59.00 Constipation, unspecified; E11.9 Type 2 diabetes mellitus without complications; Z20.822 Contact with and (suspected) exposure to COVID-19; Z87.891 Personal history of nicotine dependence; Z79.899 Other long term (current) drug therapy
CPT/HCPCS: 36415; 71045; 80053; 82947; 83880; 84484; 85025; 87635; 93005; 99283

== ENCOUNTER → 2021-10-21 13:04 | Outpatient (BNVA) | payer MEDICARE, SELFPAY | PROVIDERS: PCP Internal Medicine; Visit Provider Internal Medicine | DX: Z79.01 Long term (current) use of anticoagulants (principal) | CPT/HCPCS: 85610; 99211 ==

== ENCOUNTER 2021-10-21 22:22 | Emergency (ER) | payer MEDICARE, SELFPAY ==
[2021-10-21 22:28] VITALS: BP 131/65; PULSE 88; RESP 18; TEMP 36.6; O2SAT 94; BMI 28.6
[2021-10-21 22:57] VITALS: BP 159/71; PULSE 82; RESP 16; TEMP 36.6; O2SAT 98
[2021-10-21 23:02] LABS: Glucose, Whole Blood 148 mg/dL (60-115)
--- NOTE | 2021-10-21 23:46 | ED_ITS ---
HPI - General Adult General Chief complaint: General Medical Stated complaint: Medication error Time Seen by Provider: 10/21/21 23:03 Source: patient Mode of arrival: ambulatory History of Present Illness HPI narrative: 81-year-old female who is diabetic accidentally took 15 units of Humalog instead of 15 units of lispro. She otherwise is feeling fine at this time and will be monitored. Related Data Home Medications Medication Instructions Recorded Confirmed amlodipine 5 mg tablet 5 mg PO DAILY 03/03/20 10/21/21 spironolactone 25 mg tablet 25 mg PO DAILY 03/03/20 10/21/21 warfarin 2 mg tablet See Rx Instructions .Route .COMPLEX 06/10/21 10/21/21 amoxicillin 500 mg capsule 2,000 mg PO ONCE 10/21/21 10/21/21 Previous Rx's Medication Instructions Recorded estradiol 0.01% (0.1 mg/gram) 1 g vaginal 3XW #42.5 grams 01/29/20 vaginal cream insulin glargine 100 unit/mL (3 51 unit (0.51 mL) subcut BEDTIME 10/15/20 mL) subcutaneous pen (Lantus #60 mL Solostar U-100 Insulin) insulin lispro 200 unit/mL (3 mL) 35 unit (0.175 mL) subcut BEDTIME 02/17/21 subcutaneous pen #6 mL metformin 1,000 mg tablet 1,000 mg PO BID #180 tabs 03/11/21 ferrous fumarate 324 mg (106 mg 324 mg PO DAILY #90 tabs 07/20/21 iron) tablet (Ferrocite) pen needle, diabetic 31 gauge x #100 ea 08/23/2106/01 (BD Ultra-Fine Mini Pen Needle) cyanocobalamin (vitamin B-12) 1,000 mcg IM Q4W #3 mL 08/24/21 1,000 mcg/mL injection solution rosuvastatin 5 mg tablet 5 mg PO 3XW #39 tabs 08/25/21 warfarin 2 mg tablet See Rx Instructions .Route 09/23/21 .COMPLEX #90 tabs metoprolol succinate 50 mg 50 mg PO DAILY #90 tabs 09/26/21 tablet,extended release 24 hr polyethylene glycol 3350 17 17 g PO DAILY #119 grams 10/05/21 gram/dose oral powder (Miralax) Allergies Allergy/AdvReac Type Severity Reaction Status Date / Time adhesive tape [Adhesive Tape] Allergy Mild CONTACT Verified 10/21/21 13:08 DERMATITIS cephalexin [CEPHALEXIN] Allergy Unknown SWELLING Verified 10/21/21 13:08 latex [Latex] Allergy Unknown RASH Verified 10/21/21 13:08 oxycodone [From PERCOCET] Allergy Unknown PER H&P Verified 10/21/21 13:08 Biaxin AdvReac Intermediate plapitation Verified 10/21/21 13:08 s bacitracin [From Cortisporin] AdvReac Mild EYE Verified 10/21/21 13:08 IRRITATION hydrocortisone AdvReac Mild EYE Verified 10/21/21 13:08 [From Cortisporin] IRRITATION neomycin [From Cortisporin] AdvReac Mild EYE Verified 10/21/21 13:08 IRRITATION flecainide [From Tambocor] AdvReac Unknown HEART Verified 10/21/21 13:08 RACING lisinopril [LISINOPRIL] AdvReac Unknown cough, Verified 10/21/21 13:08 nausea Sulfa (Sulfonamide AdvReac Unknown PALPITATION Verified 10/21/21 13:08 Antibiotics) S [SULFA(SULFONAMIDE ANTIBIOTICS)] Review of Systems Review of Systems: Pertinent positives and negatives as stated in HPI 10 point review of systems is otherwise negative. 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 Son No problems noted. Daughter No problems noted. Social History Social History Housing: House Alcohol intake: never Patient Tobacco Use Status: Never used Tobacco e-Cigarette/Vaping Use: Never Used Advance Directives: No service: No Current occupational status: retired Cognitive needs: No Hearing needs: No Vision needs: No Physical Exam ED Vital Signs: Vital Signs - 24 hr 10/21/21 22:28 10/21/21 22:57 10/22/21 00:32 Temperature 97.8 F 97.9 F Pulse Rate 88 82 85 Respiratory Rate 18 16 16 Blood Pressure 131/65 159/71 H 148/71 H Pulse Oximetry 94 98 98 Oxygen Delivery Method Room Air Room Air Room Air 10/22/21 02:26 Temperature Pulse Rate 74 Respiratory Rate 20 Blood Pressure 151/68 H Pulse Oximetry 95 Oxygen Delivery Method Room Air BMI result Body Mass Index 28.6 VITAL SIGNS: Reviewed. GENERAL: Well developed, well nourished, in no acute distress. HEAD: Normocephalic/atraumatic EYES: PERRLA, EOMI EARS: Ext canals without abnormality OROPHARYNX: no oral lesions noted, posterior pharynx clear LUNGS: Normal breath sounds. No adventitious sounds or accessory muscle use. SpO2<94> CARDIOVASCULAR: Regular rate and rhythm without noted murmurs, no JVD or lower extremity edema. ABDOMEN: Soft, non-tender, non-distended with bowel sounds. MUSCULOSKELETAL: No tenderness, deformities, or effusions noted on gross inspection. EXTREMITIES: No cyanosis, clubbing or edema. SKIN: Inspection of the skin reveals no rashes NEUROLOGIC: Alert and oriented x 4. Strength and sensation to light touch were grossly intact x 4. Course Course Course Narrative: 81-year-old female with history and clinical presentation consistent with accidental overdose on short-acting Humalog, 15 units, she will be kept NPO and have point of care glucose is every 30 minutes. If patient is noted to drop below 80 she will be given oral glucose. But will overall be observed. On review of patient's trend although it is slightly down trending her glucose has remained stable for 2 hours. Patient otherwise feels well and will be given juice, and discharged home in stable condition with instructions to check her glucose every 2 hours. Medical Decision Making Lab Data Labs: Lab Results 10/21/21 10/21/21 10/22/21 Range/Units 22:56 23:55 00:30 POC Glucose 148 H 124 H 139 H (60-115) mg/dL 10/22/21 10/22/21 10/22/21 Range/Units 01:05 01:32 02:01 POC Glucose 119 H 111 108 (60-115) mg/dL Discharge Plan Discharge Clinical Impression: Accidental overdose Patient Disposition: Home, Self-Care Instructions: Diabetes and Nutrition (ED) Additional Instructions: 1. Resume all home medications as prescribed. 2. Recommend that you check your sugar every 2 hours. Return to the ER for worsening symptoms. Prescriptions: No Action estradiol 0.01 % (0.1 mg/gram) cream 1 g vaginal 3XW Qty: 42.5 2RF Lantus Solostar U-100 Insulin 100 unit/mL (3 mL) insulin pen 51 unit subcut BEDTIME Qty: 60 3RF insulin lispro 200 unit/mL (3 mL) insulin pen 35 unit subcut BEDTIME Qty: 6 5RF metformin 1,000 mg tablet 1,000 mg PO BID Qty: 180 3RF ferrous fumarate [Ferrocite] 324 mg (106 mg iron) tablet 324 mg PO DAILY Qty: 90 3RF (DME) pen needle, diabetic [BD Ultra-Fine Mini Pen Needle] 31 gauge x 3/16 needle See Rx Instructions .Route Qty: 100 4RF Rx Instructions: As directed cyanocobalamin (vitamin B-12) 1,000 mcg/mL solution 1,000 mcg IM Q4W Qty: 3 3RF rosuvastatin 5 mg tablet 5 mg PO 3XW Qty: 39 3RF warfarin 2 mg tablet See Rx Instructions .ROUTE .COMPLEX Qty: 90 1RF Protocol: Dose Management Condition: Sunday (Week One) Dose/Route: 6 mg Instruction: 3 x 2 mg tablets Condition: Sunday Dose/Route: 6 mg Instruction: 3 x 2 mg tablets Condition: Sunday Dose/Route: 4 mg Instruction: 2 x 2 mg tablets Condition: Sunday Dose/Route: 6 mg Instruction: 3 x 2 mg tablets Condition: Dose/Route: 6 mg Instruction: 3 x 2 mg tablets Condition: Sunday Dose/Route: 6 mg Instruction: 3 x 2 mg tablets Condition: Sunday Dose/Route: 6 mg Instruction: 3 x 2 mg tablets Condition: Sunday (Week Two) Dose/Route: 6 mg Instruction: 3 x 2 mg tablets Condition: Sunday Dose/Route: 6 mg Instruction: 3 x 2 mg tablets Condition: Sunday Dose/Route: 4 mg Instruction: 2 x 2 mg tablets Condition: Sunday Dose/Route: 6 mg Instruction: 3 x 2 mg tablets Condition: Dose/Route: 6 mg Instruction: 3 x 2 mg tablets Condition: Sunday Dose/Route: 6 mg Instruction: 3 x 2 mg tablets Condition: Sunday Dose/Route: 6 mg Instruction: 3 x 2 mg tablets Protocol Text: Adjustment Start Date: Sunday10/21/21 INR Value: 3.3 INR Date: 10/21/21 Recheck Date: 11/18/21 Additional Instructions: eat a green today Rx Instructions: 6mg (2mg) Sunday, Sunday, sunday,, Sunday and on Sunday 4mg (2mg) metoprolol succinate 50 mg tablet extended release 24 hr 50 mg PO DAILY Qty: 90 2RF polyethylene glycol 3350 [Miralax] 17 gram/dose powder 17 g PO DAILY Qty: 119 0RF spironolactone 25 mg tablet 25 mg PO DAILY amlodipine 5 mg tablet 5 mg PO DAILY amoxicillin 500 mg capsule 2,000 mg PO ONCE warfarin 2 mg tablet See Rx Instructions .ROUTE .COMPLEX Protocol: Dose Management Condition: Sunday (Week One) Dose/Route: 6 mg Instruction: 3 x 2 mg tablets Condition: Sunday Dose/Route: 6 mg Instruction: 3 x 2 mg tablets Condition: Sunday Dose/Route: 4 mg Instruction: 2 x 2 mg tablets Condition: Sunday Dose/Route: 6 mg Instruction: 3 x 2 mg tablets Condition: Dose/Route: 6 mg Instruction: 3 x 2 mg tablets Condition: Sunday Dose/Route: 6 mg Instruction: 3 x 2 mg tablets Condition: Sunday Dose/Route: 6 mg Instruction: 3 x 2 mg tablets Condition: Sunday (Week Two) Dose/Route: 6 mg Instruction: 3 x 2 mg tablets Condition: Sunday Dose/Route: 6 mg Instruction: 3 x 2 mg tablets Condition: Sunday Dose/Route: 4 mg Instruction: 2 x 2 mg tablets Condition: Sunday Dose/Route: 6 mg Instruction: 3 x 2 mg tablets Condition: Dose/Route: 6 mg Instruction: 3 x 2 mg tablets Condition: Sunday Dose/Route: 6 mg Instruction: 3 x 2 mg tablets Condition: Sunday Dose/Route: 6 mg Instruction: 3 x 2 mg tablets Protocol Text: Adjustment Start Date: Sunday10/21/21 INR Value: 3.3 INR Date: 10/21/21 Recheck Date: 11/18/21 Additional Instructions: eat a green today Rx Instructions: Take 6mg (3 Tabs) by mouth for 6 Days/Week and 4mg (2 Tabs) for 1 Days/week (sunday) Referrals: Patricia Nicole MD [Primary Care Provider] -
[2021-10-22] LABS: Glucose, Whole Blood 124 mg/dL (60-115)
[2021-10-22 00:32] VITALS: BP 148/71; PULSE 85; RESP 16; O2SAT 98
[2021-10-22 00:34] LABS: Glucose, Whole Blood 139 mg/dL (60-115)
[2021-10-22 01:11] LABS: Glucose, Whole Blood 119 mg/dL (60-115)
[2021-10-22 01:37] LABS: Glucose, Whole Blood 111 mg/dL (60-115)
[2021-10-22 02:06] LABS: Glucose, Whole Blood 108 mg/dL (60-115)
[2021-10-22 02:26] VITALS: BP 151/68; PULSE 74; RESP 20; O2SAT 95
[2021-10-22 02:36] LABS: Glucose, Whole Blood 106 mg/dL (60-115)
[2021-10-23 12:26] LABS: Glucose, Whole Blood 165 mg/dL (60-115)
== END 2021-10-22 02:50 | disposition home or self-care (01) ==
PROVIDERS: Emergency Provider Student in an Organized Health Care Education/Training Program; PCP Internal Medicine
DX: T38.3X1A Poisoning by insulin and oral hypoglycemic [antidiabetic] drugs, accidental (unintentional), initial encounter (principal); Y92.9 Unspecified place or not applicable; Z79.899 Other long term (current) drug therapy; Z79.4 Long term (current) use of insulin
CPT/HCPCS: 82947; 85610; 99211; 99283; 99284

== ENCOUNTER 2021-10-24 16:38 | Outpatient (REF) | payer MEDICARE, SELFPAY | END 2021-10-24 16:39 | disposition home or self-care (01) | LOC: HO.LNP 16:38 | PROVIDERS: Visit Provider Nurse Practitioner Family | DX: N30.01 Acute cystitis with hematuria (principal) | CPT/HCPCS: 87086; 87088; 87186 ==

== ENCOUNTER 2021-11-09 06:45 | Outpatient (REF) | payer MEDICARE, SELFPAY ==
[2021-11-09 11:16] LABS: MANUAL DIFF FLAG NO
[2021-11-09 11:29] LABS: Basophils Absolute Auto 0.1 X10*3/uL (0.0-0.2); Basophils Percent Auto 1.1 % (0-2); Eosinophils Absolute Auto 0.5 X10*3/uL (0.0-0.4); Eosinophils Percent Auto 6.8 % (0-4); Hematocrit 42.9 % (37.0-47.0); Hemoglobin 13.7 g/dl (12.0-16.0); Imm Gran Abs Auto 0.05 X10*3/uL (0.00-0.03); Imm Gran Pct Auto 0.7 % (0.0-0.4); Lymphocytes Absolute Auto 1.8 X10*3/uL (1.2-4.9); Lymphocytes Percent Auto 24.5 % (20-40); Mean Corpuscular HGB Conc 31.9 g/dl (31.0-35.0); Mean Corpuscular Hemoglobin 27.9 pg (27.0-33.0); Mean Corpuscular Volume 87.4 fL (80.0-98.0); Mean Platelet Volume 10.4 fL (9.4-12.3); Monocytes Absolute Auto 0.9 X10*3/uL (0.1-1.2); Monocytes Percent Auto 11.8 % (2-11); Neutrophils Percent Auto 55.1 % (45-73); Platelet Count 323 X10*3/uL (160-400); Red Blood Count 4.91 X10*6/uL (4.20-5.50); Red Cell Distribution Width 15.1 % (11.0-16.0); White Blood Count 7.3 X10*3/uL (4.8-10.8)
[2021-11-09 11:33] LABS: Estimated Average Glucose 154 mg/dL
[2021-11-09 12:06] LABS: Alanine Aminotransferase 13 U/L (0-31); Anion Gap 16 (12-20); Aspartate Amino Transferase 15 U/L (5-31); Blood Urea Nitrogen 13 mg/dL (9-16); Calcium 9.5 mg/dL (8.4-10.2); Carbon Dioxide 27 mmol/L (22-29); Chloride 99 mmol/L (96-108); Cholesterol 176 mg/dL; Estimated Glomerular Filt Rate > 60; Glucose Fasting 164 mg/dL (60-99); HDL Cholesterol 44 mg/dL; LDL Cholesterol Calculated 102 mg/dl; Potassium 4.4 mmol/L (3.3-5.1); Sodium 138 mmol/L (135-145); Triglycerides 152 mg/dL
[2021-11-09 12:26] LABS: Folate 13.6 ng/mL (> or = 4.0); Vitamin B12 371 pg/mL (200-900)
== END 2021-11-09 06:46 | disposition home or self-care (01) ==
LOC: HO.HMGCLDS 06:45
PROVIDERS: PCP Internal Medicine; Visit Provider Internal Medicine
DX: E53.8 Deficiency of other specified B group vitamins (principal); E78.5 Hyperlipidemia, unspecified; I12.9 Hypertensive chronic kidney disease with stage 1 through stage 4 chronic kidney disease, or unspecified chronic kidney disease; E11.22 Type 2 diabetes mellitus with diabetic chronic kidney disease; N18.2 Chronic kidney disease, stage 2 (mild); Z79.4 Long term (current) use of insulin
CPT/HCPCS: 36415; 80048; 80061; 82306; 82607; 82746; 83036; 84450; 84460; 85025

== ENCOUNTER 2021-11-11 12:01 | Emergency (ER) | payer MEDICARE, SELFPAY ==
[2021-11-11] VITALS (8 sets, daily range): BP systolic 105–155; BP diastolic 54–66; PULSE 72–94; RESP 14–24; TEMP 36.4–37.1; O2SAT 95–96; BMI 27.4
--- NOTE | ~2021-11-11 | CT_ITS ---
EXAMINATION: CT HEAD WITHOUT CONTRAST CLINICAL INFORMATION: Dizziness. On Coumadin. COMPARISON: 03/04/2017 TECHNIQUE: Contiguous axial imaging was performed from the skull base to vertex without intravenous contrast. This CT examination was performed using dose optimization techniques as appropriate, variously including the following: * Automated exposure control * Adjustment of mA and/or kV according to patient size (this includes techniques or standardized protocols for targeted exams where dose is matched to indication/reason for exam; i.e. extremities or head) Use of iterative reconstruction technique DLP: 709 mGy-cm. FINDINGS: There is no evidence of acute intracranial hemorrhage or territorial infarction. No abnormal mass effect or midline shift is seen. [place] to white matter differentiation is well preserved. No extra-axial fluid collections are identified. No hydrocephalus. Proportional prominence of the ventricles and sulcal spaces is consistent with mild volume loss. Patchy periventricular and deep white matter hypoattenuation is consistent with mild small vessel ischemic changes. The osseous structures and soft tissues are normal. Trace fluid layering in the left sphenoid sinus. Partially opacified ethmoid air cells bilaterally. The mastoid air cells and visualized portions of the paranasal sinuses are otherwise well aerated. CT/CT head/brain wo con IMPRESSION: No acute intracranial pathology. Chronic volume loss with small vessel ischemic change.
--- NOTE | ~2021-11-11 | XR_ITS ---
EXAMINATION: XR CHEST CLINICAL INFORMATION: Weakness COMPARISON: X-ray 10/04/2021 TECHNIQUE: Frontal view of the chest was obtained. FINDINGS: Stable cardiac mediastinal silhouette. Similar blunting of the right costophrenic angle. No definite new pleural effusion. No focal consolidation. No pulmonary edema or pneumothorax. Multiple surgical clips projected over the right hemithorax. XR/XR chest 1V IMPRESSION: No significant interval change. No acute cardiopulmonary finding seen.
--- NOTE | ~2021-11-11 | CT_ITS ---
EXAMINATION: CT ABDOMEN AND PELVIS WITHOUT CONTRAST CLINICAL INFORMATION: Abdominal pain, back pain. Recent UTI COMPARISON: CT abdomen and pelvis 06/18/2020 TECHNIQUE: Multidetector volumetric imaging was performed from the superior aspect of the liver through the pubic symphysis. Sagittal and coronal reformatted images were obtained on the technologist's workstation. This CT examination was performed using dose optimization techniques as appropriate, variously including the following: *Automated exposure control *Adjustment of mA and/or kV according to patient size (this includes techniques or standardized protocols for targeted exams where dose is matched to indication/reason for exam; i.e. extremities or head) *Use of iterative reconstruction technique DLP: 536 mGy-cm FINDINGS: LUNG BASES: Minimal bibasilar subsegmental atelectasis and mild right basilar pleural thickening. Multiple surgical clips along the right pleural surface. LAD and left circumflex coronary calcifications. Biatrial cardiac enlargement. LIVER, GALLBLADDER, AND BILIARY TREE: The liver is normal in size, shape, and attenuation. No focal hepatic lesion or biliary ductal dilatation is present. Large 2 cm calcified gallstone. No gallbladder wall thickening or inflammatory change. PANCREAS: Unremarkable. SPLEEN: Unremarkable. ADRENAL GLANDS: Unremarkable. KIDNEYS AND URETERS: There are several nonobstructing right renal calculi, largest approximately 5 mm in size in the midpole. No left renal calculi or ureteral calculi. No hydronephrosis. Small low-density exophytic left renal cyst measuring 2.4 cm. 1.6 cm hyperdense left upper pole renal lesion, similar to prior attenuation values of 49 Hounsfield units. This corresponds to a benign cyst on comparison ultrasound 07/21/2021 Mild symmetric perirenal fascial stranding, unchanged. No perinephric collections. BLADDER: Unremarkable. GASTROINTESTINAL TRACT: Sigmoid diverticulosis. No evidence of acute diverticulitis. No dilated bowel loops. No bowel wall thickening. Normal appendix. No ascites or free air. ABDOMINAL WALL: Tiny fat-containing umbilical hernia. LYMPH NODES: No lymphadenopathy. VASCULAR: Moderate vascular calcifications. Normal caliber abdominal aorta. PELVIC VISCERA: Status post hysterectomy. OSSEOUS STRUCTURES: Chronic superior endplate compression deformities at T11 and T12. Progressive height loss of the T11 fracture since prior vacuum disc phenomena extending beneath the superior endplate compatible with Kummell disease. Multilevel degenerative disc disease in the thoracolumbar spine. Unchanged 1.7 cm sclerotic lesion in the right iliac wing, stability for over one year suggesting benign etiology. CT/CT abdomen pelvis wo con IMPRESSION: 1. Nonobstructing right renal calculi. No ureteral calculi or hydronephrosis. 2. T11 and T12 compression fractures, chronic in appearance. 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 3. Cholelithiasis. 4. Sigmoid diverticulosis.
--- NOTE | 2021-11-11 12:21 | ECG_ITS ---
Test Reason : WEAKNESS Blood Pressure : / mmHG Vent. Rate : 069 BPM Atrial Rate : 000 BPM P-R Int : 000 ms QRS Dur : 090 ms QT Int : 384 ms P-R-T Axes : 000 -39 051 degrees QTc Int : 411 ms Atrial fibrillation with premature ventricular or aberrantly conducted complexes Left axis deviation Abnormal ECG When compared with ECG of 04-OCT-2021 20:27, No significant change was found Referred By: Generic ED Physician Electronically Signed By:TEDDY KUMAR
[2021-11-11 12:47] LABS: MANUAL DIFF FLAG NO
[2021-11-11 12:48] LABS: Basophils Absolute Auto 0.1 X10*3/uL (0.0-0.2); Basophils Percent Auto 0.6 % (0-2); Eosinophils Absolute Auto 0.2 X10*3/uL (0.0-0.4); Eosinophils Percent Auto 2.3 % (0-4); Hematocrit 43.2 % (37.0-47.0); Hemoglobin 14.4 g/dl (12.0-16.0); Imm Gran Abs Auto 0.04 X10*3/uL (0.00-0.03); Imm Gran Pct Auto 0.5 % (0.0-0.4); Lymphocytes Absolute Auto 1.3 X10*3/uL (1.2-4.9); Lymphocytes Percent Auto 16.1 % (20-40); Mean Corpuscular HGB Conc 33.3 g/dl (31.0-35.0); Mean Corpuscular Hemoglobin 28.1 pg (27.0-33.0); Mean Corpuscular Volume 84.2 fL (80.0-98.0); Mean Platelet Volume 8.9 fL (9.4-12.3); Monocytes Absolute Auto 0.7 X10*3/uL (0.1-1.2); Monocytes Percent Auto 9.2 % (2-11); Neutrophils Absolute Auto 5.6 x10*3/uL (2.0-8.3); Neutrophils Percent Auto 71.3 % (45-73); Platelet Count 285 X10*3/uL (160-400); Red Blood Count 5.13 X10*6/uL (4.20-5.50); Red Cell Distribution Width 14.8 % (11.0-16.0); White Blood Count 7.8 X10*3/uL (4.8-10.8)
[2021-11-11 12:57] LABS: Partial Thromboplastin Time 48.5 SEC (26.0-36.4)
--- NOTE | 2021-11-11 13:09 | ED.WEAKNESS ---
HPI - Weakness General Chief complaint: Weakness Stated complaint: weakness/faint Time Seen by Provider: 11/11/21 13:07 Source: patient and family Mode of arrival: ambulatory Limitations: no limitations History of Present Illness HPI Narrative: 81yo female with hx of afib on coumadin, pulm HTN, anemia, DM, HLD, HTN here with c/o feeling off, early satiety, back pain and suprapubic fullness for the last week. She was dx with a UTI on 10/24 it grew out Proteus resistant to macrobid which she was placed on. On 11/01 they called her and put her on 3 days of levofloxacin which she never took due to seeing the black box warnings. At this time she isn't eating much and overall feels weak. She feels if she gets up she might fall. MD Complaint: generalized weakness and lack of energy Onset (ago): week(s) (1) Duration: constant Location: generalized Migration: none Severity: moderate Quality: dull Relieving factors: rest Exacerbating factors: movement and other (standing) Context: recent illness (proteus UTI dx 10/24 without treatment) Associated symptoms: loss of appetite and other (dizziness, early satiety, back pain, abdominal pain, doesn't feel well overall) Related Data Home Medications Medication Instructions Recorded Confirmed amlodipine 5 mg tablet 5 mg PO DAILY 03/03/20 10/21/21 spironolactone 25 mg tablet 25 mg PO DAILY 03/03/20 10/21/21 warfarin 2 mg tablet See Rx Instructions .Route .COMPLEX 06/10/21 10/21/21 calcium carbonate 500 mg calcium 500 mg PO DAILY 11/04/21 (1,250 mg) tablet coenzyme Q10 30 mg capsule (Co 30 mg PO DAILY 11/04/21 Q-10) magnesium 250 mg tablet 500 mg PO DAILY 11/04/21 vitamins A,C,A-qmgy-bsyfjg 14,320 1 cap PO BID 11/04/21 unit-226 mg-200 unit capsule (PreserVision AREDS) Previous Rx's Medication Instructions Recorded estradiol 0.01% (0.1 mg/gram) 1 g vaginal 3XW #42.5 grams 01/29/20 vaginal cream insulin glargine 100 unit/mL (3 51 unit (0.51 mL) subcut BEDTIME 10/15/20 mL) subcutaneous pen (Lantus #60 mL Solostar U-100 Insulin) insulin lispro 200 unit/mL (3 mL) 35 unit (0.175 mL) subcut BEDTIME 02/17/21 subcutaneous pen #6 mL metformin 1,000 mg tablet 1,000 mg PO BID #180 tabs 03/11/21 ferrous fumarate 324 mg (106 mg 324 mg PO DAILY #90 tabs 07/20/21 iron) tablet (Ferrocite) pen needle, diabetic 31 gauge x #100 ea 08/23/21/ (BD Ultra-Fine Mini Pen Needle) cyanocobalamin (vitamin B-12) 1,000 mcg IM Q4W #3 mL 08/24/21 1,000 mcg/mL injection solution rosuvastatin 5 mg tablet 5 mg PO 3XW #39 tabs 08/25/21 warfarin 2 mg tablet See Rx Instructions .Route 09/23/21 .COMPLEX #90 tabs metoprolol succinate 50 mg 50 mg PO DAILY #90 tabs 09/26/21 tablet,extended release 24 hr Allergies Allergy/AdvReac Type Severity Reaction Status Date / Time adhesive tape [Adhesive Tape] Allergy Mild CONTACT Verified 11/04/21 13:28 DERMATITIS cephalexin [CEPHALEXIN] Allergy Unknown SWELLING Verified 11/04/21 13:28 latex [Latex] Allergy Unknown RASH Verified 11/04/21 13:28 oxycodone [From PERCOCET] Allergy Unknown PER H&P Verified 11/04/21 13:28 Biaxin AdvReac Intermediate plapitation Verified 11/04/21 13:28 s bacitracin [From Cortisporin] AdvReac Mild EYE Verified 11/04/21 13:28 IRRITATION hydrocortisone AdvReac Mild EYE Verified 11/04/21 13:28 [From Cortisporin] IRRITATION neomycin [From Cortisporin] AdvReac Mild EYE Verified 11/04/21 13:28 IRRITATION flecainide [From Tambocor] AdvReac Unknown HEART Verified 11/04/21 13:28 RACING lisinopril [LISINOPRIL] AdvReac Unknown cough, Verified 11/04/21 13:28 nausea Sulfa (Sulfonamide AdvReac Unknown PALPITATION Verified 11/04/21 13:28 Antibiotics) S [SULFA(SULFONAMIDE ANTIBIOTICS)] Review of Systems Review of Systems: Constitutional : No Weight loss, No Fever, No Chills ENT/Mouth : No sore throat, No Rhinorrhea Eyes: No Swelling, No Redness Cardiovascular : No Chest Pain, No SOB, NoEdema Respiratory : No Cough, No Sputum, No Wheezing Gastrointestinal : Positive Nausea, no Vomiting, no Diarrhea, positive abdominal Pain, No Hematochezia, No Melena Genitourinary : No Dysuria, No Urinary Frequency, No Hematuria, No Urgency Musculoskeletal : No joint pain, No Myalgias, No Joint Swelling, pos back pain Skin : No Skin Lesions, No rash Neuro : pos Weakness, No Numbness, pos Dizziness, No Headache Psych : No Anxiety/Panic, No Depression Heme/Lymph: No Bruising, No Lymphadenopathy Endocrine : No Polyuria, No Polydipsia All other systems reviewed and are negative. [facility] Past Medical History Attestation statement: The following information was validated with the patient. 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 Son No problems noted. Daughter No problems noted. Social History Social History Housing: House Alcohol intake: never Patient Tobacco Use Status: Never used Tobacco e-Cigarette/Vaping Use: Never Used Advance Directives: Yes Advance Directives Information Provided: Yes Advance Directives on File: No service: No Current occupational status: retired Cognitive needs: No Hearing needs: Yes Vision needs: Yes Physical Exam Vital Signs: Vital Signs: Last Vital Signs Temp 98.6 F 11/11/21 15:38 Pulse 87 11/11/21 15:38 Resp 24 H 11/11/21 15:38 BP 155/66 H 11/11/21 15:38 Pulse Ox 96 11/11/21 15:02 O2 Del Method 11/11/21 15:38 BMI result Body Mass Index 27.4 Appearance: Alert. Oriented X3. No acute distress. Eyes: Pupils equal, round and reactive to light. ENT: Pharynx normal. Neck: Normal inspection. Neck supple. CVS: irregular heart rate and rhythm. Pulses normal. Respiratory: No respiratory distress. Breath sounds normal. Abdomen: Soft and mild suprapubic ttp no rebound or guarding Skin: Skin warm and dry. Normal skin color. Normal skin turgor. Extremities: No lower extremity edema. No calf ttp Neuro: Oriented X 3. No motor deficit. No sensory deficit. Course Course Course Narrative: steady gait to and from the bathroom if repeat lactic acid negative anticipate she can be DC home with PO levofloxacin 250mg daily for 6 more days, afebrile, not vomiting here has no WBC count signed out to Dr. Garzon pending repeat lactic acid, patient very eager to go home MDM - Weakness MDM Narrative Medical decision making narrative: 81yo female with hx of afib on coumadin, pulm HTN, anemia, DM, HLD, HTN here with c/o feeling weak and dizzy she is able to ambulate has no other neuro symptoms. Has untreated UTI from 10/24 has associated nausea, suprapubic pain, back pain - at this time suspect possible UTI is cause of her symptoms will start lactic acid, cultures, CT scan for stone/signs of obstruction. Dose of IV levofloxacin. Lab Data Result diagrams: 11/11/21 12:40 11/11/21 12:40 Labs: Lab Results 11/11/21 11/11/21 11/11/21 Range/Units 12:40 12:40 12:40 WBC 7.8 (4.8-10.8) X10*3/uL RBC 5.13 (4.20-5.50) X10*6/uL Hgb 14.4 (12.0-16.0) g/dl Hct 43.2 (37.0-47.0) % MCV 84.2 (80.0-98.0) fL MCH 28.1 (27.0-33.0) pg MCHC 33.3 (31.0-35.0) g/dl RDW 14.8 (11.0-16.0) % Plt Count 285 (160-400) X10*3/uL MPV 8.9 L (9.4-12.3) fL Immature Gran % (Auto) 0.5 H (0.0-0.4) % Neut % (Auto) 71.3 (45-73) % Lymph % (Auto) 16.1 L (20-40) % Swisher % (Auto) 9.2 (2-11) % Eos % (Auto) 2.3 (0-4) % Baso % (Auto) 0.6 (0-2) % Lymph # (Auto) 1.3 (1.2-4.9) X10*3/uL Swisher # (Auto) 0.7 (0.1-1.2) X10*3/uL Eos # (Auto) 0.2 (0.0-0.4) X10*3/uL Baso # (Auto) 0.1 (0.0-0.2) X10*3/uL Abs Immat Gran (auto) 0.04 H (0.00-0.03) X10*3/uL Absolute Neuts (auto) 5.6 (2.0-8.3) x10*3/uL Absolute Nucleated RBC 0.000 (0.0-0.012) X10*3/uL Nucleated RBC % (auto) 0.0 (0.0-0.2) /100WBC PT 37.6 H (10.0-13.1) SEC INR 3.1 H (0.9-1.1) APTT 48.5 H (26.0-36.4) SEC Sodium 136 (135-145) mmol/L Potassium 5.1 (3.3-5.1) mmol/L Chloride 97 (96-108) mmol/L Carbon Dioxide 26 (22-29) mmol/L Anion Gap 18 (12-20) BUN 17 H (9-16) mg/dL Creatinine 0.80 (0.5-1.4) mg/dL Estim Creat Clear Calc 52.0 Estimated GFR > 60 Random Glucose 181 H (60-115) mg/dL Lactic Acid (0.5-2.0) mmol/L Calcium 9.4 (8.4-10.2) mg/dL Total Bilirubin 0.7 (0.0-1.0) mg/dL AST 16 (5-31) U/L ALT 15 (0-31) U/L Alkaline Phosphatase 53 (39-117) U/L Troponin I High Sens (<3.5-17.0) ng/L Total Protein 7.2 (6.5-8.0) g/dL Albumin 4.1 (3.5-5.0) g/dL Lipase 36 (8-78) U/L Urine Color Urine Appearance Urine pH (5.0-8.0) Ur Specific [place] (1.005-1.025) Urine Protein (Neg-Trace) mg/dL Urine Glucose (UA) (Negative) mg/dL Urine Ketones (Negative) mg/dL Urine Blood (Negative) Urine Nitrite (Negative) Ur Leukocyte Esterase (Negative) Urine RBC (0-2) /HPF Urine WBC (0-5) /HPF Ur Squamous Epith Cells (0-2) /HPF Urine Bacteria (None Seen) Hyaline Casts (0-2) /LPF COVID-19 (LENNIE) (Negative) COVID-19 Clin Com 11/11/21 11/11/21 11/11/21 Range/Units 12:40 12:40 14:42 WBC (4.8-10.8) X10*3/uL RBC (4.20-5.50) X10*6/uL Hgb (12.0-16.0) g/dl Hct (37.0-47.0) % MCV (80.0-98.0) fL MCH (27.0-33.0) pg MCHC (31.0-35.0) g/dl RDW (11.0-16.0) % Plt Count (160-400) X10*3/uL MPV (9.4-12.3) fL Immature Gran % (Auto) (0.0-0.4) % Neut % (Auto) (45-73) % Lymph % (Auto) (20-40) % Swisher % (Auto) (2-11) % Eos % (Auto) (0-4) % Baso % (Auto) (0-2) % Lymph # (Auto) (1.2-4.9) X10*3/uL Swisher # (Auto) (0.1-1.2) X10*3/uL Eos # (Auto) (0.0-0.4) X10*3/uL Baso # (Auto) (0.0-0.2) X10*3/uL Abs Immat Gran (auto) (0.00-0.03) X10*3/uL Absolute Neuts (auto) (2.0-8.3) x10*3/uL Absolute Nucleated RBC (0.0-0.012) X10*3/uL Nucleated RBC % (auto) (0.0-0.2) /100WBC PT (10.0-13.1) SEC INR (0.9-1.1) APTT (26.0-36.4) SEC Sodium (135-145) mmol/L Potassium (3.3-5.1) mmol/L Chloride (96-108) mmol/L Carbon Dioxide (22-29) mmol/L Anion Gap (12-20) BUN (9-16) mg/dL Creatinine (0.5-1.4) mg/dL Estim Creat Clear Calc Estimated GFR Random Glucose (60-115) mg/dL Lactic Acid 2.4 H* (0.5-2.0) mmol/L Calcium (8.4-10.2) mg/dL Total Bilirubin (0.0-1.0) mg/dL AST (5-31) U/L ALT (0-31) U/L Alkaline Phosphatase (39-117) U/L Troponin I High Sens 6.9 (<3.5-17.0) ng/L Total Protein (6.5-8.0) g/dL Albumin (3.5-5.0) g/dL Lipase (8-78) U/L Urine Color Urine Appearance Urine pH (5.0-8.0) Ur Specific [place] (1.005-1.025) Urine Protein (Neg-Trace) mg/dL Urine Glucose (UA) (Negative) mg/dL Urine Ketones (Negative) mg/dL Urine Blood (Negative) Urine Nitrite (Negative) Ur Leukocyte Esterase (Negative) Urine RBC (0-2) /HPF Urine WBC (0-5) /HPF Ur Squamous Epith Cells (0-2) /HPF Urine Bacteria (None Seen) Hyaline Casts (0-2) /LPF COVID-19 (LENNIE) Negative (Negative) COVID-19 Clin Com See Note 11/11/21 Range/Units 14:43 WBC (4.8-10.8) X10*3/uL RBC (4.20-5.50) X10*6/uL Hgb (12.0-16.0) g/dl Hct (37.0-47.0) % MCV (80.0-98.0) fL MCH (27.0-33.0) pg MCHC (31.0-35.0) g/dl RDW (11.0-16.0) % Plt Count (160-400) X10*3/uL MPV (9.4-12.3) fL Immature Gran % (Auto) (0.0-0.4) % Neut % (Auto) (45-73) % Lymph % (Auto) (20-40) % Swisher % (Auto) (2-11) % Eos % (Auto) (0-4) % Baso % (Auto) (0-2) % Lymph # (Auto) (1.2-4.9) X10*3/uL Swisher # (Auto) (0.1-1.2) X10*3/uL Eos # (Auto) (0.0-0.4) X10*3/uL Baso # (Auto) (0.0-0.2) X10*3/uL Abs Immat Gran (auto) (0.00-0.03) X10*3/uL Absolute Neuts (auto) (2.0-8.3) x10*3/uL Absolute Nucleated RBC (0.0-0.012) X10*3/uL Nucleated RBC % (auto) (0.0-0.2) /100WBC PT (10.0-13.1) SEC INR (0.9-1.1) APTT (26.0-36.4) SEC Sodium (135-145) mmol/L Potassium (3.3-5.1) mmol/L Chloride (96-108) mmol/L Carbon Dioxide (22-29) mmol/L Anion Gap (12-20) BUN (9-16) mg/dL Creatinine (0.5-1.4) mg/dL Estim Creat Clear Calc Estimated GFR Random Glucose (60-115) mg/dL Lactic Acid (0.5-2.0) mmol/L Calcium (8.4-10.2) mg/dL Total Bilirubin (0.0-1.0) mg/dL AST (5-31) U/L ALT (0-31) U/L Alkaline Phosphatase (39-117) U/L Troponin I High Sens (<3.5-17.0) ng/L Total Protein (6.5-8.0) g/dL Albumin (3.5-5.0) g/dL Lipase (8-78) U/L Urine Color Yellow Urine Appearance Cloudy Urine pH 8.5 H (5.0-8.0) Ur Specific [place] 1.010 (1.005-1.025) Urine Protein Trace (Neg-Trace) mg/dL Urine Glucose (UA) Negative (Negative) mg/dL Urine Ketones Negative (Negative) mg/dL Urine Blood Trace H (Negative) Urine Nitrite Negative (Negative) Ur Leukocyte Esterase Large (3+) H (Negative) Urine RBC 3-5 H (0-2) /HPF Urine WBC >50 H (0-5) /HPF Ur Squamous Epith Cells 0-2 (0-2) /HPF Urine Bacteria 4+ (None Seen) Hyaline Casts 0-2 (0-2) /LPF COVID-19 (LENNIE) (Negative) COVID-19 Clin Com ECG Data Attestation: I personally reviewed and interpreted this ECG as follows: ECG interpretation date: 11/11/21 ECG interpretation time: 13:14 Interpretation: Rate: 60s Rhythm: afib with PVC [facility]: left Normal QRS complex. ST T wave : no MONICA, normal qTC: normal prior studies: no acute ischemia The study has been interpreted contemporaneously by me. Discharge Plan Discharge Clinical Impression: Acute UTI, Acidosis, lactic, Dizziness Patient Disposition: Still a Patient Instructions: Urinary Tract Infection in Women (ED), Dizziness (ED) Additional Instructions: return to ED for any worsening symptoms or concerns monitor INR (coumadin) for changes on antibiotics Prescriptions: No Action estradiol 0.01 % (0.1 mg/gram) cream 1 g vaginal 3XW Qty: 42.5 2RF Lantus Solostar U-100 Insulin 100 unit/mL (3 mL) insulin pen 51 unit subcut BEDTIME Qty: 60 3RF insulin lispro 200 unit/mL (3 mL) insulin pen 35 unit subcut BEDTIME Qty: 6 5RF metformin 1,000 mg tablet 1,000 mg PO BID Qty: 180 3RF ferrous fumarate [Ferrocite] 324 mg (106 mg iron) tablet 324 mg PO DAILY Qty: 90 3RF (DME) pen needle, diabetic [BD Ultra-Fine Mini Pen Needle] 31 gauge x 3/16 needle See Rx Instructions .Route Qty: 100 4RF Rx Instructions: As directed cyanocobalamin (vitamin B-12) 1,000 mcg/mL solution 1,000 mcg IM Q4W Qty: 3 3RF rosuvastatin 5 mg tablet 5 mg PO 3XW Qty: 39 3RF warfarin 2 mg tablet See Rx Instructions .ROUTE .COMPLEX Qty: 90 1RF Protocol: Dose Management Condition: Sunday (Week One) Dose/Route: 6 mg Instruction: 3 x 2 mg tablets Condition: Sunday Dose/Route: 6 mg Instruction: 3 x 2 mg tablets Condition: Sunday Dose/Route: 4 mg Instruction: 2 x 2 mg tablets Condition: Sunday Dose/Route: 6 mg Instruction: 3 x 2 mg tablets Condition: Dose/Route: 6 mg Instruction: 3 x 2 mg tablets Condition: Sunday Dose/Route: 6 mg Instruction: 3 x 2 mg tablets Condition: Sunday Dose/Route: 6 mg Instruction: 3 x 2 mg tablets Condition: Sunday (Week Two) Dose/Route: 6 mg Instruction: 3 x 2 mg tablets Condition: Sunday Dose/Route: 6 mg Instruction: 3 x 2 mg tablets Condition: Sunday Dose/Route: 4 mg Instruction: 2 x 2 mg tablets Condition: Sunday Dose/Route: 6 mg Instruction: 3 x 2 mg tablets Condition: Dose/Route: 6 mg Instruction: 3 x 2 mg tablets Condition: Sunday Dose/Route: 6 mg Instruction: 3 x 2 mg tablets Condition: Sunday Dose/Route: 6 mg Instruction: 3 x 2 mg tablets Protocol Text: Adjustment Start Date: Sunday10/21/21 INR Value: 3.3 INR Date: 10/21/21 Recheck Date: 11/18/21 Additional Instructions: eat a green today Rx Instructions: 6mg (2mg) Sunday, Sunday, sunday,, Sunday and on Sunday 4mg (2mg) metoprolol succinate 50 mg tablet extended release 24 hr 50 mg PO DAILY Qty: 90 2RF spironolactone 25 mg tablet 25 mg PO DAILY amlodipine 5 mg tablet 5 mg PO DAILY coenzyme Q10 [Co Q-10] 30 mg capsule 30 mg PO DAILY calcium carbonate 500 mg calcium (1,250 mg) tablet 500 mg PO DAILY magnesium 250 mg tablet 500 mg PO DAILY PreserVision AREDS 14320-226-200 [id number] capsule 1 cap PO BID warfarin 2 mg tablet See Rx Instructions .ROUTE .COMPLEX Protocol: Dose Management Condition: Sunday (Week One) Dose/Route: 6 mg Instruction: 3 x 2 mg tablets Condition: Sunday Dose/Route: 6 mg Instruction: 3 x 2 mg tablets Condition: Sunday Dose/Route: 4 mg Instruction: 2 x 2 mg tablets Condition: Sunday Dose/Route: 6 mg Instruction: 3 x 2 mg tablets Condition: Dose/Route: 6 mg Instruction: 3 x 2 mg tablets Condition: Sunday Dose/Route: 6 mg Instruction: 3 x 2 mg tablets Condition: Sunday Dose/Route: 6 mg Instruction: 3 x 2 mg tablets Condition: Sunday (Week Two) Dose/Route: 6 mg Instruction: 3 x 2 mg tablets Condition: Sunday Dose/Route: 6 mg Instruction: 3 x 2 mg tablets Condition: Sunday Dose/Route: 4 mg Instruction: 2 x 2 mg tablets Condition: Sunday Dose/Route: 6 mg Instruction: 3 x 2 mg tablets Condition: Dose/Route: 6 mg Instruction: 3 x 2 mg tablets Condition: Sunday Dose/Route: 6 mg Instruction: 3 x 2 mg tablets Condition: Sunday Dose/Route: 6 mg Instruction: 3 x 2 mg tablets Protocol Text: Adjustment Start Date: Sunday10/21/21 INR Value: 3.3 INR Date: 10/21/21 Recheck Date: 11/18/21 Additional Instructions: eat a green today Rx Instructions: Take 6mg (3 Tabs) by mouth for 6 Days/Week and 4mg (2 Tabs) for 1 Days/week (sunday)
[2021-11-11 13:17] LABS: COVID-19 Test Negative (Negative); IDNOW Serial# 16C4AD1C
[2021-11-11 13:18] LABS: Troponin-I High Sensitivity 6.9 ng/L (<3.5-17.0)
[2021-11-11 13:20] LABS: Alanine Aminotransferase 15 U/L (0-31); Albumin Level 4.1 g/dL (3.5-5.0); Alkaline Phosphatase 53 U/L (39-117); Anion Gap 18 (12-20); Aspartate Amino Transferase 16 U/L (5-31); Bilirubin Total 0.7 mg/dL (0.0-1.0); Blood Urea Nitrogen 17 mg/dL (9-16); Calcium 9.4 mg/dL (8.4-10.2); Carbon Dioxide 26 mmol/L (22-29); Chloride 97 mmol/L (96-108); Estimated Glomerular Filt Rate > 60; Glucose Random 181 mg/dL (60-115); Lipase 36 U/L (8-78); Potassium 5.1 mmol/L (3.3-5.1); Sodium 136 mmol/L (135-145); Total Protein 7.2 g/dL (6.5-8.0)
[2021-11-11 13:24] LABS: INTERNATIONAL NORM RATIO 3.1 (0.9-1.1); Prothrombin Time 37.6 SEC (10.0-13.1)
--- NOTE | 2021-11-11 13:40 | PC.NURSE ---
pt ambulating steadily to bathroom with minimal assistance. unable to provide urine specimen at this time.
[2021-11-11] MEDS: levoFLOXacin/D5W 500 MG/100 ML PIGGYBACK 100 MG IV (14:48)
[2021-11-11] MEDS: 0.9 % Sodium Chloride 500 ML IV (14:49)
[2021-11-11 14:56] LABS: Appearance Urine Cloudy; Color Urine Yellow; Glucose Urine UA Negative (Negative); Leukocyte Esterase Urine Large (3+) (Negative); Nitrite Urine Negative (Negative); PH 8.5 (5.0-8.0); Urine Blood Trace (Negative); Urine Ketones Negative (Negative); Urine Protein Trace mg/dL (Neg-Trace)
[2021-11-11 15:01] LABS: Bacteria Urine 4+ (None Seen); Hyaline Casts Urine 0-2 /LPF (0-2); Squamous Epithelial Cell Urine 0-2 /HPF (0-2); UACC Culture Trigger YES; WBC Urine >50 /HPF (0-5)
[2021-11-11 15:07] LABS: Lactic Acid 2.4 mmol/L (0.5-2.0)
[2021-11-11 16:48] LABS: Reflex Lactate? Lactic Acid Added
--- NOTE | 2021-11-11 17:30 | PC.NURSE ---
Pt ambulating to bathroom several time with minimal assistance. commode at bedside, able to get on it without assistance. Antibiotic and fluid completed. Awaiting result of repeat lactic.
[2021-11-11 17:33] LABS: ~Lactic Acid-LAB USE ONLY 1.8 mmol/L (0.5-2.0)
== END 2021-11-11 18:39 | disposition home or self-care (01) ==
PROVIDERS: Emergency Provider Emergency Medicine; PCP Internal Medicine
DX: N39.0 Urinary tract infection, site not specified (principal); R53.1 Weakness; E87.2 Acidosis; R06.02 Shortness of breath; R42 Dizziness and giddiness; R10.9 Unspecified abdominal pain; Z20.822 Contact with and (suspected) exposure to COVID-19; Z79.899 Other long term (current) drug therapy
CPT/HCPCS: 36415; 70450; 71045; 74176; 80053; 81001; 83605; 83690; 84484; 85025; 85610; 85730; 87040; 87086; 87088; 87186; 87635; 93005; 96365; 99284; 99285; J1956

== ENCOUNTER → 2021-11-17 13:04 | Outpatient (BNVA) | payer MEDICARE, SELFPAY | PROVIDERS: PCP Internal Medicine; Visit Provider Internal Medicine | DX: I48.21 Permanent atrial fibrillation (principal); Z79.01 Long term (current) use of anticoagulants; Z51.81 Encounter for therapeutic drug level monitoring | CPT/HCPCS: 85610; 99211 ==

== ENCOUNTER → 2021-11-25 13:33 | Outpatient (BNVA) | payer MEDICARE, SELFPAY | PROVIDERS: PCP Internal Medicine; Visit Provider Internal Medicine | DX: I48.21 Permanent atrial fibrillation (principal); Z79.01 Long term (current) use of anticoagulants; Z51.81 Encounter for therapeutic drug level monitoring | CPT/HCPCS: 85610; 99211 ==

== ENCOUNTER 2021-11-30 07:24 | Emergency (ER) | payer MEDICARE, SELFPAY ==
--- NOTE | ~2021-11-30 | XR_ITS ---
EXAMINATION: XR CHEST CLINICAL INFORMATION: Palpitations. COMPARISON: Chest radiograph 11/11/2021. TECHNIQUE: 2 views of the chest were obtained. FINDINGS: Stable appearance of the cardiomediastinal silhouette. Redemonstration of multiple surgical clips projecting over the right lung. Similar volume loss of the right lung. Stable interstitial opacities in the medial right upper lobe and platelike opacities in the retrocardiac region. Unchanged blunting of the right costophrenic angle. Again noted resection of the right fifth rib. Stable compression deformities at T11 and T12 when compared to CT from 11/11/2021. XR/XR chest 2V IMPRESSION: No significant changes when compared to 11/11/2021.
--- NOTE | 2021-11-30 07:31 | ECG_ITS ---
Test Reason : PALPITATIONS Blood Pressure : / mmHG Vent. Rate : 081 BPM Atrial Rate : 000 BPM P-R Int : 000 ms QRS Dur : 090 ms QT Int : 394 ms P-R-T Axes : 000 -41 067 degrees QTc Int : 457 ms Atrial fibrillation Left axis deviation Nonspecific ST abnormality Abnormal ECG When compared with ECG of 11-NOV-2021 12:29, Nonspecific ST abnormality is now Present Referred By: Generic ED Physician Electronically Signed By:TEDDY KUMAR
[2021-11-30 07:46] VITALS: BP 165/68; PULSE 80; RESP 16; O2SAT 94; BMI 29.0
[2021-11-30 07:49] LABS: MANUAL DIFF FLAG NO
[2021-11-30 07:51] LABS: Basophils Absolute Auto 0.1 X10*3/uL (0.0-0.2); Basophils Percent Auto 0.8 % (0-2); Eosinophils Absolute Auto 0.2 X10*3/uL (0.0-0.4); Eosinophils Percent Auto 3.2 % (0-4); Hemoglobin 14.3 g/dl (12.0-16.0); Imm Gran Abs Auto 0.05 X10*3/uL (0.00-0.03); Imm Gran Pct Auto 0.7 % (0.0-0.4); Lymphocytes Absolute Auto 1.5 X10*3/uL (1.2-4.9); Mean Corpuscular HGB Conc 32.5 g/dl (31.0-35.0); Mean Corpuscular Hemoglobin 28.1 pg (27.0-33.0); Mean Corpuscular Volume 86.6 fL (80.0-98.0); Mean Platelet Volume 9.1 fL (9.4-12.3); Monocytes Absolute Auto 0.6 X10*3/uL (0.1-1.2); Monocytes Percent Auto 7.3 % (2-11); Neutrophils Absolute Auto 5.1 x10*3/uL (2.0-8.3); Platelet Count 260 X10*3/uL (160-400); Red Blood Count 5.08 X10*6/uL (4.20-5.50); White Blood Count 7.5 X10*3/uL (4.8-10.8)
[2021-11-30 07:58] LABS: INTERNATIONAL NORM RATIO 3.2 (0.9-1.1)
[2021-11-30 08:00] LABS: Partial Thromboplastin Time 50.8 SEC (26.0-36.4)
[2021-11-30 08:11] LABS: Troponin-I High Sensitivity 7.9 ng/L (<3.5-17.0)
[2021-11-30 08:26] LABS: Anion Gap 18 (12-20); Blood Urea Nitrogen 12 mg/dL (9-16); Calcium 9.5 mg/dL (8.4-10.2); Carbon Dioxide 27 mmol/L (22-29); Chloride 98 mmol/L (96-108); Creatinine Clr Calc Pharmacy 53.4; Estimated Glomerular Filt Rate > 60; Glucose Random 236 mg/dL (60-115); Sodium 138 mmol/L (135-145)
[2021-11-30 08:39] VITALS: BP 156/69; PULSE 82; RESP 14; TEMP 36.4; O2SAT 97
--- NOTE | 2021-11-30 08:50 | ED.ARRPALP ---
HPI - Arrhythmia/Palpitations General Chief Complaint: Arrhythmia/Palpitations Stated Complaint: HBP, afib, heart palpitations Time Seen by Provider: 11/30/21 08:46 Source: patient and old records reviewed Mode of arrival: ambulatory Limitations: no limitations History of Present Illness HPI narrative: 81 yo female with hx of afib - last EKGs she is always in afib on metoprolol and coumadin, HTN, HLD, GERD, DM here with c/o feeling fullness in her throat as well as being in afib all night. She also checked her BP since 3am she kept a list it looks about every 5 to 10 minutes with subsequent rise of the blood pressure each time. She is very anxious and somewhat of a poor historian. She reports no change in medication. She is no longer taking her lasix because it made her short of breath. She states her BP was up to 170 at home one point. MD complaint: rapid heart beat and palpitations Onset (ago): hour(s) (since 2am. ) Duration: constant Context: occurred during rest Arrhythmia history: atrial fibrillation Associated symptoms: other (feels fullness in her throat. ) Treatments prior to arrival: other (states she is compliant with her medications) Related Data Home Medications Medication Instructions Recorded Confirmed amlodipine 5 mg tablet 5 mg PO DAILY 03/03/20 10/21/21 warfarin 2 mg tablet See Rx Instructions .Route .COMPLEX 06/10/21 11/25/21 calcium carbonate 500 mg calcium 500 mg PO DAILY 11/04/21 (1,250 mg) tablet coenzyme Q10 30 mg capsule (Co 30 mg PO DAILY 11/04/21 Q-10) magnesium 250 mg tablet 500 mg PO DAILY 11/04/21 vitamins A,C,I-[id number]-[id number] 14,320 1 cap PO BID 11/04/21 unit-226 mg-200 unit capsule (PreserVision AREDS) Previous Rx's Medication Instructions Recorded estradiol 0.01% (0.1 mg/gram) 1 g vaginal 3XW #42.5 grams 01/29/20 vaginal cream insulin glargine 100 unit/mL (3 51 unit (0.51 mL) subcut BEDTIME 10/15/20 mL) subcutaneous pen (Lantus #60 mL Solostar U-100 Insulin) insulin lispro 200 unit/mL (3 mL) 35 unit (0.175 mL) subcut BEDTIME 02/17/21 subcutaneous pen #6 mL metformin 1,000 mg tablet 1,000 mg PO BID #180 tabs 03/11/21 ferrous fumarate 324 mg (106 mg 324 mg PO DAILY #90 tabs 07/20/21 iron) tablet (Ferrocite) pen needle, diabetic 31 gauge x #100 ea 08/23/21 3/16 (BD Ultra-Fine Mini Pen Needle) cyanocobalamin (vitamin B-12) 1,000 mcg IM Q4W #3 mL 08/24/21 1,000 mcg/mL injection solution rosuvastatin 5 mg tablet 5 mg PO 3XW #39 tabs 08/25/21 metoprolol succinate 50 mg 50 mg PO DAILY #90 tabs 09/26/21 tablet,extended release 24 hr warfarin 2 mg tablet See Rx Instructions .Route 11/15/21 .COMPLEX #180 tabs Allergies Allergy/AdvReac Type Severity Reaction Status Date / Time adhesive tape [Adhesive Tape] Allergy Mild CONTACT Verified 11/25/21 13:39 DERMATITIS cephalexin [CEPHALEXIN] Allergy Unknown SWELLING Verified 11/25/21 13:39 latex [Latex] Allergy Unknown RASH Verified 11/25/21 13:39 oxycodone [From PERCOCET] Allergy Unknown PER H&P Verified 11/25/21 13:39 Biaxin AdvReac Intermediate plapitation Verified 11/25/21 13:39 s bacitracin [From Cortisporin] AdvReac Mild EYE Verified 11/25/21 13:39 IRRITATION hydrocortisone AdvReac Mild EYE Verified 11/25/21 13:39 [From Cortisporin] IRRITATION neomycin [From Cortisporin] AdvReac Mild EYE Verified 11/25/21 13:39 IRRITATION flecainide [From Tambocor] AdvReac Unknown HEART Verified 11/25/21 13:39 RACING lisinopril [LISINOPRIL] AdvReac Unknown cough, Verified 11/25/21 13:39 nausea Sulfa (Sulfonamide AdvReac Unknown PALPITATION Verified 11/25/21 13:39 Antibiotics) S [SULFA(SULFONAMIDE ANTIBIOTICS)] Review of Systems Review of Systems: Constitutional : No Fever, No Chills ENT/Mouth : No sore throat, No Rhinorrhea, No Swallowing Difficulty Eyes: No Eye Pain, No Swelling, No Redness Cardiovascular : No Chest Pain, no SOB, No Orthopnea, no Edema, pos palpitations Respiratory : No Cough, No Sputum, No Wheezing, positive dyspnea Gastrointestinal : No Nausea, No Vomiting, No Diarrhea, No abdominal Pain, No Hematochezia, No Melena Genitourinary : No Dysuria, No Urinary Frequency, No Hematuria Musculoskeletal : No joint pain, No Myalgias Skin : No Skin Lesions, No rash Neuro : No Weakness, No Numbness, No Dizziness, No Headache Psych : pos Anxiety/Panic, No Depression Heme/Lymph: No Bruising, No Lymphadenopathy Endocrine : No Polyuria, No Polydipsia All other systems reviewed and are negative [facility] Past Medical History Attestation statement: The following information was validated with the patient. 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 Son No problems noted. Daughter No problems noted. Social History Social History Housing: House Alcohol intake: never Patient Tobacco Use Status: Never used Tobacco e-Cigarette/Vaping Use: Never Used Advance Directives: No Advance Directives Information Provided: No service: No Current occupational status: retired Cognitive needs: No Hearing needs: Yes Vision needs: Yes Physical Exam Vital Signs: Vital Signs: Last Vital Signs Temp 97.6 F 11/30/21 08:39 Pulse 71 11/30/21 09:56 Resp 22 H 11/30/21 09:56 BP 127/48 L 11/30/21 09:56 Pulse Ox 94 11/30/21 09:56 O2 Del Method 11/30/21 09:56 BMI result Body Mass Index 29.0 Appearance: Alert. Oriented X3. No acute distress. Anxious Eyes: Pupils equal, round and reactive to light. ENT: Pharynx normal. Neck: Normal inspection. Neck supple. CVS: irregular heart rate and rhythm. Pulses normal. Respiratory: No respiratory distress. Breath sounds normal. Abdomen: Soft and non-tender. Skin: Skin warm and dry. Normal skin color. Normal skin turgor. Extremities: No lower extremity edema. No calf ttp Neuro: Oriented X 3. No motor deficit. No sensory deficit. Course Course Course Narrative: symptoms resolved with one dose of xanax she can be discharged to her service order clerk MDM - Arrhythmia/Palpitations MDM Narrative Medical decision making narrative: 81 yo female with hx of afib - last EKGs she is always in afib on metoprolol and coumadin, HTN, HLD, GERD, DM reports being in afib all night and feeling it in her neck - her rate is in the 70s / 80s here and she is always in afib from what I can tell on EKGs. She takes metoprolol and coumadin - compliance and no change. She stayed up all night checking her BP every 5 to 10 minutes. She is very anxious. She reports some fullness in her neck - at this time will obtain labs, troponin x 2, CXR, PO xanax for anxiety. Patient is always in afib and she is rate controlled and anticoagulated. She has an appointment her Allergist/Pediatric Pulmonologist today at 11am. Lab Data Result diagrams: 11/30/21 07:44 11/30/21 07:44 Labs: Lab Results 11/30/21 11/30/21 11/30/21 Range/Units 07:44 07:44 07:44 WBC 7.5 (4.8-10.8) X10*3/uL RBC 5.08 (4.20-5.50) X10*6/uL Hgb 14.3 (12.0-16.0) g/dl Hct 44.0 (37.0-47.0) % MCV 86.6 (80.0-98.0) fL MCH 28.1 (27.0-33.0) pg MCHC 32.5 (31.0-35.0) g/dl RDW 15.0 (11.0-16.0) % Plt Count 260 (160-400) X10*3/uL MPV 9.1 L (9.4-12.3) fL Immature Gran % (Auto) 0.7 H (0.0-0.4) % Neut % (Auto) 68.0 (45-73) % Lymph % (Auto) 20.0 (20-40) % Reagan % (Auto) 7.3 (2-11) % Eos % (Auto) 3.2 (0-4) % Baso % (Auto) 0.8 (0-2) % Lymph # (Auto) 1.5 (1.2-4.9) X10*3/uL Reagan # (Auto) 0.6 (0.1-1.2) X10*3/uL Eos # (Auto) 0.2 (0.0-0.4) X10*3/uL Baso # (Auto) 0.1 (0.0-0.2) X10*3/uL Abs Immat Gran (auto) 0.05 H (0.00-0.03) X10*3/uL Absolute Neuts (auto) 5.1 (2.0-8.3) x10*3/uL Absolute Nucleated RBC 0.000 (0.0-0.012) X10*3/uL Nucleated RBC % (auto) 0.0 (0.0-0.2) /100WBC PT 38.0 H (10.0-13.1) SEC INR 3.2 H (0.9-1.1) APTT 50.8 H (26.0-36.4) SEC Sodium 138 (135-145) mmol/L Potassium 5.0 (3.3-5.1) mmol/L Chloride 98 (96-108) mmol/L Carbon Dioxide 27 (22-29) mmol/L Anion Gap 18 (12-20) BUN 12 (9-16) mg/dL Creatinine 0.80 (0.5-1.4) mg/dL Estim Creat Clear Calc 53.4 Estimated GFR > 60 Random Glucose 236 H (60-115) mg/dL Calcium 9.5 (8.4-10.2) mg/dL Troponin I High Sens (<3.5-17.0) ng/L B-Natriuretic Peptide (<100) pg/mL 11/30/21 11/30/21 Range/Units 07:44 09:39 WBC (4.8-10.8) X10*3/uL RBC (4.20-5.50) X10*6/uL Hgb (12.0-16.0) g/dl Hct (37.0-47.0) % MCV (80.0-98.0) fL MCH (27.0-33.0) pg MCHC (31.0-35.0) g/dl RDW (11.0-16.0) % Plt Count (160-400) X10*3/uL MPV (9.4-12.3) fL Immature Gran % (Auto) (0.0-0.4) % Neut % (Auto) (45-73) % Lymph % (Auto) (20-40) % Reagan % (Auto) (2-11) % Eos % (Auto) (0-4) % Baso % (Auto) (0-2) % Lymph # (Auto) (1.2-4.9) X10*3/uL Reagan # (Auto) (0.1-1.2) X10*3/uL Eos # (Auto) (0.0-0.4) X10*3/uL Baso # (Auto) (0.0-0.2) X10*3/uL Abs Immat Gran (auto) (0.00-0.03) X10*3/uL Absolute Neuts (auto) (2.0-8.3) x10*3/uL Absolute Nucleated RBC (0.0-0.012) X10*3/uL Nucleated RBC % (auto) (0.0-0.2) /100WBC PT (10.0-13.1) SEC INR (0.9-1.1) APTT (26.0-36.4) SEC Sodium (135-145) mmol/L Potassium (3.3-5.1) mmol/L Chloride (96-108) mmol/L Carbon Dioxide (22-29) mmol/L Anion Gap (12-20) BUN (9-16) mg/dL Creatinine (0.5-1.4) mg/dL Estim Creat Clear Calc Estimated GFR Random Glucose (60-115) mg/dL Calcium (8.4-10.2) mg/dL Troponin I High Sens 7.9 7.0 (<3.5-17.0) ng/L B-Natriuretic Peptide 50 (<100) pg/mL Discharge Plan Discharge Clinical Impression: Permanent atrial fibrillation, Heart palpitations Patient Disposition: Home, Self-Care Instructions: A-fib (Atrial Fibrillation) (ED), Heart Palpitations (ED) Additional Instructions: return to ED for any worsening symptoms or concerns two troponins are flat INR 3.2 given low dose xanax 0.25 for anxiety and palpitations while in the ED please go to your cardiology appointment today Prescriptions: No Action estradiol 0.01 % (0.1 mg/gram) cream 1 g vaginal 3XW Qty: 42.5 2RF Lantus Solostar U-100 Insulin 100 unit/mL (3 mL) insulin pen 51 unit subcut BEDTIME Qty: 60 3RF insulin lispro 200 unit/mL (3 mL) insulin pen 35 unit subcut BEDTIME Qty: 6 5RF metformin 1,000 mg tablet 1,000 mg PO BID Qty: 180 3RF ferrous fumarate [Ferrocite] 324 mg (106 mg iron) tablet 324 mg PO DAILY Qty: 90 3RF (DME) pen needle, diabetic [BD Ultra-Fine Mini Pen Needle] 31 gauge x 3/16 needle See Rx Instructions .Route Qty: 100 4RF Rx Instructions: As directed cyanocobalamin (vitamin B-12) 1,000 mcg/mL solution 1,000 mcg IM Q4W Qty: 3 3RF rosuvastatin 5 mg tablet 5 mg PO 3XW Qty: 39 3RF metoprolol succinate 50 mg tablet extended release 24 hr 50 mg PO DAILY Qty: 90 2RF warfarin 2 mg tablet See Rx Instructions .ROUTE .COMPLEX Qty: 180 1RF Protocol: Dose Management Condition: Sunday (Week One) Dose/Route: 6 mg Instruction: 3 x 2 mg tablets Condition: Sunday Dose/Route: 6 mg Instruction: 3 x 2 mg tablets Condition: Sunday Dose/Route: 4 mg Instruction: 2 x 2 mg tablets Condition: Sunday Dose/Route: 6 mg Instruction: 3 x 2 mg tablets Condition: Dose/Route: 6 mg Instruction: 3 x 2 mg tablets Condition: Sunday Dose/Route: 6 mg Instruction: 3 x 2 mg tablets Condition: Sunday Dose/Route: 6 mg Instruction: 3 x 2 mg tablets Condition: Sunday ( Two) Dose/Route: 6 mg Instruction: 3 x 2 mg tablets Condition: Sunday Dose/Route: 6 mg Instruction: 3 x 2 mg tablets Condition: Sunday Dose/Route: 4 mg Instruction: 2 x 2 mg tablets Condition: Sunday Dose/Route: 6 mg Instruction: 3 x 2 mg tablets Condition: Dose/Route: 6 mg Instruction: 3 x 2 mg tablets Condition: Sunday Dose/Route: 6 mg Instruction: 3 x 2 mg tablets Condition: Sunday Dose/Route: 6 mg Instruction: 3 x 2 mg tablets Protocol Text: Adjustment Start Date: Sunday11/25/21 INR Value: 2.9 INR Date: 11/25/21 Recheck Date: 12/09/21 Additional Instructions: cont reg dosing balance reds and greens call with any medication changes Rx Instructions: 6mg (2mg) Sunday, Sunday, sunday,, Sunday and on Sunday 4mg (2mg) amlodipine 5 mg tablet 5 mg PO DAILY coenzyme Q10 [Co Q-10] 30 mg capsule 30 mg PO DAILY calcium carbonate 500 mg calcium (1,250 mg) tablet 500 mg PO DAILY magnesium 250 mg tablet 500 mg PO DAILY PreserVision AREDS [id number] capsule 1 cap PO BID warfarin 2 mg tablet See Rx Instructions .ROUTE .COMPLEX Protocol: Dose Management Condition: Sunday (Week One) Dose/Route: 6 mg Instruction: 3 x 2 mg tablets Condition: Sunday Dose/Route: 6 mg Instruction: 3 x 2 mg tablets Condition: Sunday Dose/Route: 4 mg Instruction: 2 x 2 mg tablets Condition: Sunday Dose/Route: 6 mg Instruction: 3 x 2 mg tablets Condition: Dose/Route: 6 mg Instruction: 3 x 2 mg tablets Condition: Sunday Dose/Route: 6 mg Instruction: 3 x 2 mg tablets Condition: Sunday Dose/Route: 6 mg Instruction: 3 x 2 mg tablets Condition: Sunday ( Two) Dose/Route: 6 mg Instruction: 3 x 2 mg tablets Condition: Sunday Dose/Route: 6 mg Instruction: 3 x 2 mg tablets Condition: Sunday Dose/Route: 4 mg Instruction: 2 x 2 mg tablets Condition: Sunday Dose/Route: 6 mg Instruction: 3 x 2 mg tablets Condition: Dose/Route: 6 mg Instruction: 3 x 2 mg tablets Condition: Sunday Dose/Route: 6 mg Instruction: 3 x 2 mg tablets Condition: Sunday Dose/Route: 6 mg Instruction: 3 x 2 mg tablets Protocol Text: Adjustment Start Date: Sunday11/25/21 INR Value: 2.9 INR Date: 11/25/21 Recheck Date: 12/09/21 Additional Instructions: cont reg dosing balance reds and greens call with any medication changes Rx Instructions: Take 6mg (3 Tabs) by mouth for 6 Days/Week and 4mg (2 Tabs) for 1 Days/week (sunday)
[2021-11-30] MEDS: ALPRAZolam 0.25 MG TABLET PO (09:19)
[2021-11-30 09:43] LABS: B Type Natriuretic Peptide 50 pg/mL (<100)
[2021-11-30 09:56] VITALS: BP 127/48; PULSE 71; RESP 22; O2SAT 94
== END 2021-11-30 10:52 | disposition home or self-care (01) ==
PROVIDERS: Emergency Provider Emergency Medicine; PCP Internal Medicine
DX: R00.2 Palpitations (principal); I48.91 Unspecified atrial fibrillation; R06.02 Shortness of breath; I10 Essential (primary) hypertension; Z79.01 Long term (current) use of anticoagulants; Z79.899 Other long term (current) drug therapy
CPT/HCPCS: 36415; 71046; 80048; 83880; 84484; 85025; 85610; 85730; 93005; 99212; 99283; 99284

== ENCOUNTER 2021-12-13 08:56 | Emergency (ER) | payer MEDICARE, SELFPAY ==
--- NOTE | ~2021-12-13 | CT_ITS ---
EXAMINATION: CT CHEST WITHOUT CONTRAST CT ABDOMEN AND PELVIS WITHOUT CONTRAST CLINICAL INFORMATION: Fall. Pain. COMPARISON: 06/18/2020 TECHNIQUE: Multidetector volumetric imaging was performed through the chest, abdomen and pelvis without contrast. Sagittal and coronal reformatted images were obtained on the technologist's workstation. Axial MIP volume rendering provided. This CT examination was performed using dose optimization techniques as appropriate, variously including the following: *Automated exposure control *Adjustment of mA and/or kV according to patient size (this includes techniques or standardized protocols for targeted exams where dose is matched to indication/reason for exam; i.e. extremities or head) *Use of iterative reconstruction technique DLP: 1865 mGy-cm, in conjunction with the head and C-spine CT. FINDINGS: CHEST: Lungs: The central airways are patent. No consolidation. Linear scarring at the lingula. Multiple areas of pleural thickening/calcification.. No pleural effusion or pneumothorax. There are no pulmonary parenchymal nodules. Mediastinum: The heart is enlarged. There is no pericardial effusion. Central vascular structures are unremarkable. No hilar or mediastinal lymphadenopathy. Coronary Artery Calcification: Moderate . Chest Wall/Axilla: No lymphadenopathy. No chest wall mass. ABDOMEN/PELVIS: Liver, Gallbladder, Biliary Tree: The liver is normal in size, shape, and attenuation. No focal hepatic lesion or biliary ductal dilatation is present. 2.1 cm stone in the gallbladder lumen. No wall thickening or adjacent inflammation. Pancreas: Unremarkable. Spleen: Unremarkable. Adrenal Glands: Unremarkable. Kidneys and Ureters: The kidneys are normal in size, shape, and attenuation. No hydronephrosis or hydroureter. There is a right mid to lower pole 0.8 cm calculus which is 8 cm from the posterior axillary line. This measures 900 Hounsfield units. Exophytic anterior left lower pole 2.5 cm simple cyst, no specific follow-up recommended. There is a hyperdense left upper pole lesion which measures 1.6 cm. This favors a proteinaceous/hemorrhagic cyst. Bladder: Unremarkable. Gastrointestinal Tract: The stomach is unremarkable. Normal caliber small bowel. No obstruction. No colonic wall thickening or acute inflammation. Diverticulosis without diverticulitis. This is greatest at the sigmoid colon. The appendix is unremarkable. Abdominal Wall: No hernia is demonstrated. Lymphovascular Structures: Lymph nodes: Normal. Vascular: Normal caliber aorta with mild atherosclerotic calcification. Pelvic Viscera: Uterus not seen. No adnexal mass. OSSEOUS STRUCTURES: Compression deformity of the T11 vertebral body is unchanged from 11/11/2021 with gas along the superior endplate. Mild height loss of T12 is also unchanged. Multilevel endplate osteophytes. Disc space narrowing throughout the lumbar spine with vacuum disc phenomenon. The sternum is intact. Chronic irregularity of the right posterior fifth and sixth ribs with partial resection. No acute rib fracture identified. No acute pelvic fracture. Degenerative change at both hips. Unchanged sclerosis in the right iliac bone. This has a nonaggressive appearance. CT/CT abdomen pelvis wo IV con IMPRESSION: No acute traumatic finding of the chest, abdomen, or pelvis. No fractures. Cholelithiasis. Chronic changes in the lungs with calcified pleural plaques.
--- NOTE | ~2021-12-13 | CT_ITS ---
EXAMINATION: NONCONTRAST HEAD CT NONCONTRAST CERVICAL SPINE CT INDICATION INFORMATION: Fall, pain COMPARISON: 11/11/2021 TECHNIQUE: Separate noncontrast CT examinations of the head and cervical spine were performed. Coronal head CT images and coronal and sagittal cervical spine images were created at the technologist workstation. DLP: 1865 mGy-cm DOSE LOWERING TECHNIQUES: This CT examination was performed using dose optimization techniques as appropriate, variously including the following: - Automated exposure control - Adjustment of mA and/or kV according to patient size (this includes techniques or standardized protocols for targeted exams were dose is matched to indication/reason for exam; i.e. extremities or head) - Use of iterative reconstruction technique FINDINGS: Head: There is no evidence of acute intracranial hemorrhage or territorial infarction. No abnormal mass-effect or midline shift is seen. Mosqueda to white matter differentiation is well preserved. No extra-axial fluid collections are identified. The ventricles are normal in size. There is mild periventricular white matter hypoattenuation consistent with chronic small vessel ischemic disease. Mild volume loss is noted. The osseous structures and soft tissues are normal. Partially visualized bilateral ethmoid air cells. The mastoid air cells are well-aerated. Cervical spine: There is anatomic alignment of the vertebral bodies and posterior elements. Vertebral body heights are maintained. There is moderate to severe facet arthropathy throughout the cervical spine. There is moderate disc space narrowing at C6-C7 with associated endplate osteophytes. There is mild disc space narrowing and osteophytosis in the mid cervical spine. There is degenerative change at the atlantodens articulation. No evidence of acute fracture. No prevertebral soft tissue swelling. Visualized portions of the lung apices are unremarkable. The thyroid gland consider multinodular appearance. CT/CT cervical spine wo IV con IMPRESSION: 1. No acute intracranial findings identified. Chronic small vessel ischemic disease and volume loss. 2. No acute findings identified in the cervical spine. Multilevel degenerative changes.
[2021-12-13 09:37] VITALS: BP 145/56; PULSE 96; RESP 18; TEMP 36.9; O2SAT 96; BMI 28.3
--- NOTE | 2021-12-13 09:44 | ECG_ITS ---
Test Reason : fall Blood Pressure : / mmHG Vent. Rate : 080 BPM Atrial Rate : 000 BPM P-R Int : 000 ms QRS Dur : 094 ms QT Int : 394 ms P-R-T Axes : 000 -30 038 degrees QTc Int : 454 ms Atrial fibrillation with ventricular escape complexes Left axis deviation Minimal voltage criteria for LVH, may be normal variant ( Harjinder product ) Nonspecific ST abnormality Abnormal ECG When compared with ECG of 30-NOV-2021 07:36, Atrial fibrillation is now with ventricular escape complexes Referred By: Cecelia Gordon Electronically Signed By:TEDDY KUMAR
[2021-12-13 09:55] LABS: Basophils Absolute Auto 0.1 X10*3/uL (0.0-0.2); Basophils Percent Auto 0.5 % (0-2); Eosinophils Percent Auto 0.4 % (0-4); Hematocrit 42.9 % (37.0-47.0); Hemoglobin 14.1 g/dl (12.0-16.0); Imm Gran Abs Auto 0.07 X10*3/uL (0.00-0.03); Imm Gran Pct Auto 0.7 % (0.0-0.4); Lymphocytes Percent Auto 10.2 % (20-40); MANUAL DIFF FLAG NO; Mean Corpuscular HGB Conc 32.9 g/dl (31.0-35.0); Mean Corpuscular Volume 85.3 fL (80.0-98.0); Monocytes Absolute Auto 0.9 X10*3/uL (0.1-1.2); Monocytes Percent Auto 9.1 % (2-11); Neutrophils Absolute Auto 7.6 x10*3/uL (2.0-8.3); Neutrophils Percent Auto 79.1 % (45-73); Platelet Count 261 X10*3/uL (160-400); Red Blood Count 5.03 X10*6/uL (4.20-5.50); Red Cell Distribution Width 14.5 % (11.0-16.0); White Blood Count 9.6 X10*3/uL (4.8-10.8)
[2021-12-13 10:08] LABS: Prothrombin Time 86.8 SEC (10.0-13.1)
[2021-12-13 10:18] LABS: Alanine Aminotransferase 17 U/L (0-31); Albumin Level 4.3 g/dL (3.5-5.0); Alkaline Phosphatase 58 U/L (39-117); Anion Gap 18 (12-20); Aspartate Amino Transferase 19 U/L (5-31); Bilirubin Direct 0.3 mg/dL (0.0-0.5); Bilirubin Total 0.5 mg/dL (0.0-1.0); Blood Urea Nitrogen 13 mg/dL (9-16); Calcium 9.2 mg/dL (8.4-10.2); Carbon Dioxide 22 mmol/L (22-29); Chloride 98 mmol/L (96-108); Creatinine Clr Calc Pharmacy 54.1; Estimated Glomerular Filt Rate > 60; Glucose Random 227 mg/dL (60-115); Potassium 4.9 mmol/L (3.3-5.1); Sodium 133 mmol/L (135-145); Total Protein 7.3 g/dL (6.5-8.0)
--- NOTE | 2021-12-13 10:53 | ED_ITS ---
HPI - General Adult General Chief complaint: Fall Stated complaint: fall/back pain Time Seen by Provider: 12/13/21 09:43 Source: patient and family () Mode of arrival: ambulatory Limitations: no limitations History of Present Illness HPI narrative: Patient is an 81 year old female presenting to the emergency department today with back pain. Patient states that she had a fall yesterday and has been having worse back pain ever since. Patient states that she does take Coumadin and would like to have her levels checked while she is here. Patient states that she did not hit her head with the fall and did not have any loss of consciousness with the fall. Patient denies any dizziness, lightheadedness, abdominal pain, nausea, vomiting, fever, chills, blurry vision, double vision, loss of vision, chest pain, difficulty breathing, shortness of breath, night sweats, pain with urination, increased urinary frequency, increased urinary urgency, blood in her urine or stool, syncope or a near syncopal episode, bowel incontinence, bladder incontinence, bowel retention, bladder retention, or any other complaints at this time. Onset (ago): day(s) (1) Location: back Radiation: non-radiation Severity: mild Severity scale (1-10): 3 Quality: dull Pain Consistency: constant Relieving factors: none Exacerbating factors: movement Associated symptoms: denies other symptoms Treatments prior to arrival: none Related Data Home Medications Medication Instructions Recorded Confirmed amlodipine 5 mg tablet 5 mg PO DAILY 03/03/20 11/30/21 calcium carbonate 500 mg calcium 500 mg PO DAILY 11/04/21 11/30/21 (1,250 mg) tablet coenzyme Q10 30 mg capsule (Co 30 mg PO DAILY 11/04/21 11/30/21 Q-10) magnesium 250 mg tablet 500 mg PO DAILY 11/04/21 11/30/21 vitamins A,C,Q-kcro-akzvlu 14,320 1 cap PO BID 11/04/21 11/30/21 unit-226 mg-200 unit capsule (PreserVision AREDS) Previous Rx's Medication Instructions Recorded estradiol 0.01% (0.1 mg/gram) 1 g vaginal 3XW #42.5 grams 01/29/20 vaginal cream insulin glargine 100 unit/mL (3 51 unit (0.51 mL) subcut BEDTIME 07/30/21 mL) subcutaneous pen (Lantus #60 mL Solostar U-100 Insulin) insulin lispro 200 unit/mL (3 mL) 35 unit (0.175 mL) subcut BEDTIME 02/17/21 subcutaneous pen #6 mL metformin 1,000 mg tablet 1,000 mg PO BID #180 tabs 03/11/21 ferrous fumarate 324 mg (106 mg 324 mg PO DAILY #90 tabs 07/20/21 iron) tablet (Ferrocite) pen needle, diabetic 31 gauge x #100 ea 08/23/2106/01 (BD Ultra-Fine Mini Pen Needle) cyanocobalamin (vitamin B-12) 1,000 mcg IM Q4W #3 mL 08/24/21 1,000 mcg/mL injection solution rosuvastatin 5 mg tablet 5 mg PO 3XW #39 tabs 08/25/21 metoprolol succinate 50 mg 50 mg PO DAILY #90 tabs 09/26/21 tablet,extended release 24 hr warfarin 2 mg tablet See Rx Instructions .Route 11/15/21 .COMPLEX #180 tabs Allergies Allergy/AdvReac Type Severity Reaction Status Date / Time adhesive tape [Adhesive Tape] Allergy Mild CONTACT Verified 12/12/21 23:38 DERMATITIS cephalexin [CEPHALEXIN] Allergy Unknown SWELLING Verified 12/12/21 23:38 latex [Latex] Allergy Unknown RASH Verified 12/12/21 23:38 oxycodone [From PERCOCET] Allergy Unknown PER H&P Verified 12/12/21 23:38 Biaxin AdvReac Intermediate plapitation Verified 12/12/21 23:38 s bacitracin [From Cortisporin] AdvReac Mild EYE Verified 12/12/21 23:38 IRRITATION hydrocortisone AdvReac Mild EYE Verified 12/12/21 23:38 [From Cortisporin] IRRITATION neomycin [From Cortisporin] AdvReac Mild EYE Verified 12/12/21 23:38 IRRITATION flecainide [From Tambocor] AdvReac Unknown HEART Verified 12/12/21 23:38 RACING lisinopril [LISINOPRIL] AdvReac Unknown cough, Verified 12/12/21 23:38 nausea Sulfa (Sulfonamide AdvReac Unknown PALPITATION Verified 12/12/21 23:38 Antibiotics) S [SULFA(SULFONAMIDE ANTIBIOTICS)] Review of Systems Constitutional: Constitutional: Reports no additional constitutional complaints, Denies chills, Denies fever(s) and Denies night sweats Eyes: Eyes: Reports no additional eye complaints, Denies blurry vision, Denies change in vision, Denies diplopia, Denies eye discharge, Denies loss of vision and Denies eye pain ENT: Denies dizziness Cardiovascular: Cardiovascular: Reports no additional cardiovascular complaints, Denies chest pain, Denies lightheadedness, Denies Loss of Consciousness and Denies dyspnea Respiratory: Respiratory: Reports no additional respiratory complaints and Denies dyspnea Gastrointestinal: Gastrointestinal: Reports no additional gastrointestinal complaints, Denies abdominal pain, Denies melena, Denies hematochezia, Denies change in bowel habits and Denies change in stool character Genitourinary: Genitourinary: Denies hematuria, Denies urinary frequency, Denies dysuria, Denies urinary incontinence, Denies urinary hesitancy and Denies urinary urgency Musculoskeletal: Musculoskeletal: Reports no additional musculoskeletal complaints, Reports back pain, Denies numbness and Denies tingling Neurologic: Denies dizziness, Denies loss of vision, Denies numbness and Denies tingling Psychiatric: Psychiatric: Reports no additional psychiatric complaints Endocrine: Endocrine: Reports no additional endocrine complaints Hematologic/Lymphatic: Hematologic/Lymphatic: Reports no additional hematologic/lymphatic complaints Allergic/Immunologic: Allergic/Immunologic: Reports no additional allergic/immunologic complaints [facility] Past Medical History Attestation statement: The following information was validated with the patient. 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 Son No problems noted. Daughter No problems noted. Social History Social History Housing: House Alcohol intake: never Patient Tobacco Use Status: Never used Tobacco e-Cigarette/Vaping Use: Never Used service: No Current occupational status: retired Cognitive needs: No Hearing needs: Yes Vision needs: Yes Physical Exam ED Vital Signs: Vital Signs - 24 hr 12/13/21 09:37 12/13/21 13:14 Temperature 98.4 F Pulse Rate 96 69 Respiratory Rate 18 18 Blood Pressure 145/56 H 155/66 H Pulse Oximetry 96 99 Oxygen Delivery Method Room Air Room Air BMI result Body Mass Index 28.3 Const General: cooperative, no acute distress, alert and awake Nutritional Appearance: well nourished Orientation/consciousness: patient oriented x3 Limitations: no limitations HENMT Head: Yes normal to inspection and Yes atraumatic Ears: hearing grossly normal bilaterally and external ears normal General nose exam: Normal external nose present, no nasal discharge noted and no epistaxis Face and sinus: Yes normal facial exam, No abrasion and No laceration Mouth: Normal oral and palatal mucosa present, no drooling and no muffled voice Eyes General: appearance normal, both eyes and all related structures Periorbital: periorbital findings normal Eyelids: Yes eyelids normal Conjunctivae: conjunctivae normal Pupils: Equal, round and reactive pupils present EOM: EOMs intact bilaterally Neck Neck: Yes normal visual inspection, Yes full ROM and Yes no lymphadenopathy Chest Chest palpation & inspection: normal inspection of the chest Resp Effort & Inspection: normal respiratory effort and able to speak in complete sentences Auscultation: clear to auscultation bilaterally Cardio Rate: regular rate Rhythm: regular rhythm GI Inspection: Yes normal to inspection Back/Spine/Pelvis Cervical Spine: normal cervical lordosis and cervical ROM normal Thoracic/Lumbar Spine: thoracic and lumbar spine normal to inspection and thoraco-lumbar ROM normal Neuro General: patient oriented x3 and moves all extremities Cranial nerves: Yes Equal, round and reactive pupils present Cognition (Neuro): normal cognition Motor exam (neuro): 5/5 motor strength present throughout Sensory Exam: Normal double simultaneous stimulation for sensation Coordination: [id number] test normal Extrem General: Yes normal to inspection, Yes full ROM and Yes capillary refill normal Psych Appearance: grossly normal Mental Status: mental status grossly normal Affect: normal affect Attitude: cooperative Thought process: Normal thought process present Thought content: Normal thought content present Insight: Good insight present (Psych) Medical Decision Making MDM Narrative Medical decision making narrative: Patient is an 81 year old female presenting to the emergency department today with back pain after a fall Patient's physical exam was unremarkable. Patient's blood work showed an elevated INR of 7 and a slightly decreased sodium of 133. Patient's EKG was unchanged from previous. Patient's head, neck, c-spine, chest, and abdominal/pelvis CTs showed no acute process. I called and spoke to the coagulation clinic here at [facility] [place] who recommended the patient hold her coumadin this evening and tomorrow with a follow up appointment in their office at 11:15 tomorrow morning. I explained my physical exam findings as well as all test results to the patient and the patient's . I answered all questions asked by the patient and the patient's . I stressed the importance of the patient taking the rest of her medication as prescribed. I stressed the importance of the patient following up with her primary care provider. I stressed the importance of the patient returning to the emergency department immediately if her symptoms were to worsen or if she were to develop any dizziness, shortness of breath, difficulty breathing, chest pain, blurry vision, loss of vision, nausea, vomiting, abdominal pain, fever, chills, back pain, or any other complaints. Patient and the patient's verbalized agreement and understanding with this treatment plan and discharge. Medical Records Medical records reviewed: Yes I reviewed the patient's medical records. Lab Data Lab results reviewed: Yes I reviewed the patient's lab results. Result diagrams: 12/13/21 09:49 12/13/21 09:49 Labs: Lab Results 12/13/21 12/13/21 12/13/21 Range/Units 09:49 09:49 09:49 WBC 9.6 (4.8-10.8) X10*3/uL RBC 5.03 (4.20-5.50) X10*6/uL Hgb 14.1 (12.0-16.0) g/dl Hct 42.9 (37.0-47.0) % MCV 85.3 (80.0-98.0) fL MCH 28.0 (27.0-33.0) pg MCHC 32.9 (31.0-35.0) g/dl RDW 14.5 (11.0-16.0) % Plt Count 261 (160-400) X10*3/uL MPV 9.0 L (9.4-12.3) fL Immature Gran % (Auto) 0.7 H (0.0-0.4) % Neut % (Auto) 79.1 H (45-73) % Lymph % (Auto) 10.2 L (20-40) % [place] % (Auto) 9.1 (2-11) % Eos % (Auto) 0.4 (0-4) % Baso % (Auto) 0.5 (0-2) % Lymph # (Auto) 1.0 L (1.2-4.9) X10*3/uL [place] # (Auto) 0.9 (0.1-1.2) X10*3/uL Eos # (Auto) 0.0 (0.0-0.4) X10*3/uL Baso # (Auto) 0.1 (0.0-0.2) X10*3/uL Abs Immat Gran (auto) 0.07 H (0.00-0.03) X10*3/uL Absolute Neuts (auto) 7.6 (2.0-8.3) x10*3/uL Absolute Nucleated RBC 0.000 (0.0-0.012) X10*3/uL Nucleated RBC % (auto) 0.0 (0.0-0.2) /100WBC PT 86.8 H (10.0-13.1) SEC INR 7.0 H* D (0.9-1.1) APTT 58.0 H (26.0-36.4) SEC Sodium 133 L (135-145) mmol/L Potassium 4.9 (3.3-5.1) mmol/L Chloride 98 (96-108) mmol/L Carbon Dioxide 22 (22-29) mmol/L Anion Gap 18 (12-20) BUN 13 (9-16) mg/dL Creatinine 0.78 (0.5-1.4) mg/dL Estim Creat Clear Calc 54.1 Estimated GFR > 60 Random Glucose 227 H (60-115) mg/dL Calcium 9.2 (8.4-10.2) mg/dL Total Bilirubin 0.5 (0.0-1.0) mg/dL Direct Bilirubin 0.3 (0.0-0.5) mg/dL AST 19 (5-31) U/L ALT 17 (0-31) U/L Alkaline Phosphatase 58 (39-117) U/L Total Protein 7.3 (6.5-8.0) g/dL Albumin 4.3 (3.5-5.0) g/dL Urine Color Urine Appearance Urine pH (5.0-9.0) Ur Specific [place] (1.005-1.025) Urine Protein (Neg-Trace) mg/dL Urine Glucose (UA) (Negative) mg/dL Urine Ketones (Negative) mg/dL Urine Blood (Negative) Urine Nitrite (Negative) Ur Leukocyte Esterase (Negative) Urine RBC (0-2) /HPF Urine WBC (0-5) /HPF Ur Squamous Epith Cells (0-2) /HPF Urine Bacteria (None Seen) Hyaline Casts (0-2) /LPF 12/13/21 Range/Units 11:55 WBC (4.8-10.8) X10*3/uL RBC (4.20-5.50) X10*6/uL Hgb (12.0-16.0) g/dl Hct (37.0-47.0) % MCV (80.0-98.0) fL MCH (27.0-33.0) pg MCHC (31.0-35.0) g/dl RDW (11.0-16.0) % Plt Count (160-400) X10*3/uL MPV (9.4-12.3) fL Immature Gran % (Auto) (0.0-0.4) % Neut % (Auto) (45-73) % Lymph % (Auto) (20-40) % Wy[place] % (Auto) (2-11) % Eos % (Auto) (0-4) % Baso % (Auto) (0-2) % Lymph # (Auto) (1.2-4.9) X10*3/uL [place] # (Auto) (0.1-1.2) X10*3/uL Eos # (Auto) (0.0-0.4) X10*3/uL Baso # (Auto) (0.0-0.2) X10*3/uL Abs Immat Gran (auto) (0.00-0.03) X10*3/uL Absolute Neuts (auto) (2.0-8.3) x10*3/uL Absolute Nucleated RBC (0.0-0.012) X10*3/uL Nucleated RBC % (auto) (0.0-0.2) /100WBC PT (10.0-13.1) SEC INR (0.9-1.1) APTT (26.0-36.4) SEC Sodium (135-145) mmol/L Potassium (3.3-5.1) mmol/L Chloride (96-108) mmol/L Carbon Dioxide (22-29) mmol/L Anion Gap (12-20) BUN (9-16) mg/dL Creatinine (0.5-1.4) mg/dL Estim Creat Clear Calc Estimated GFR Random Glucose (60-115) mg/dL Calcium (8.4-10.2) mg/dL Total Bilirubin (0.0-1.0) mg/dL Direct Bilirubin (0.0-0.5) mg/dL AST (5-31) U/L ALT (0-31) U/L Alkaline Phosphatase (39-117) U/L Total Protein (6.5-8.0) g/dL Albumin (3.5-5.0) g/dL Urine Color Yellow Urine Appearance Clear Urine pH 8.0 (5.0-9.0) Ur Specific [place] 1.015 (1.005-1.025) Urine Protein 30 (1+) H (Neg-Trace) mg/dL Urine Glucose (UA) 100 H (Negative) mg/dL Urine Ketones 15 (Negative) mg/dL Urine Blood Negative (Negative) Urine Nitrite Negative (Negative) Ur Leukocyte Esterase Negative (Negative) Urine RBC 0-2 (0-2) /HPF Urine WBC 0-5 (0-5) /HPF Ur Squamous Epith Cells 0-2 (0-2) /HPF Urine Bacteria 2+ (None Seen) Hyaline Casts 0-2 (0-2) /LPF Imaging Data CT head and C-Spine: Attestation: I personally reviewed and interpreted this imaging study as follows: My impression: No acute process. Radiologist's impression: EXAMINATION: NONCONTRAST HEAD CT NONCONTRAST CERVICAL SPINE CT INDICATION INFORMATION: Fall, pain COMPARISON: 11/11/2021 TECHNIQUE: Separate noncontrast CT examinations of the head and cervical spine were performed. Coronal head CT images and coronal and sagittal cervical spine images were created at the technologist workstation. DLP: 1865 mGy-cm DOSE LOWERING TECHNIQUES: This CT examination was performed using dose optimization techniques as appropriate, variously including the following: ?- Automated exposure control ?- Adjustment of mA and/or kV according to patient size (this includes techniques or standardized protocols for targeted exams were dose is matched to indication/reason for exam; i.e. extremities or head) ?- Use of iterative reconstruction technique FINDINGS: Head: There is no evidence of acute intracranial hemorrhage or territorial infarction. No abnormal mass-effect or midline shift is seen. [place] to white matter differentiation is well preserved. No extra-axial fluid collections are identified. The ventricles are normal in size. There is mild periventricular white matter hypoattenuation consistent with chronic small vessel ischemic disease. Mild volume loss is noted. The osseous structures and soft tissues are normal. Partially visualized bilateral ethmoid air cells. The mastoid air cells are well-aerated. Cervical spine: There is anatomic alignment of the vertebral bodies and posterior elements. Vertebral body heights are maintained. There is moderate to severe facet arthropathy throughout the cervical spine. There is moderate disc space narrowing at C6-C7 with associated endplate osteophytes. There is mild disc space narrowing and osteophytosis in the mid cervical spine. There is degenerative change at the atlantodens articulation. No evidence of acute fracture. No prevertebral soft tissue swelling. Visualized portions of the lung apices are unremarkable. The thyroid gland consider multinodular appearance. CT/CT cervical spine wo IV con IMPRESSION: 1.? No acute intracranial findings identified. Chronic small vessel ischemic disease and volume loss. 2.? No acute findings identified in the cervical spine. Multilevel degenerative changes. Dictated By: Hunter Benedict MD Signed By: Electronically signed by Hunter Benedict MD 12/13/[address] scan chest, andomen, pelvis: Attestation: I personally reviewed and interpreted this imaging study as follows: My impression: No acute fracture. Radiologist's impression: EXAMINATION: CT CHEST WITHOUT CONTRAST CT ABDOMEN AND PELVIS WITHOUT CONTRAST CLINICAL INFORMATION: Fall. Pain. COMPARISON: 06/18/2020 TECHNIQUE: Multidetector volumetric imaging was performed through the chest, abdomen and pelvis without contrast. Sagittal and coronal reformatted images were obtained on the technologist's workstation. Axial MIP volume rendering provided. This CT examination was performed using dose optimization techniques as appropriate, variously including the following: *Automated exposure control *Adjustment of mA and/or kV according to patient size (this includes techniques or standardized protocols for targeted exams where dose is matched to indication/reason for exam; i.e. extremities or head) *Use of iterative reconstruction technique DLP: 1865 mGy-cm, in conjunction with the head and C-spine CT. FINDINGS: CHEST: Lungs: The central airways are patent. No consolidation. Linear scarring at the lingula. Multiple areas of pleural thickening/calcification.. No pleural effusion or pneumothorax. There are no pulmonary parenchymal nodules.? Mediastinum: The heart is enlarged. There is no pericardial effusion. Central vascular structures are unremarkable. No hilar or mediastinal lymphadenopathy. ? Coronary Artery Calcification: Moderate . Chest Wall/Axilla: No lymphadenopathy. No chest wall mass.? ABDOMEN/PELVIS: Liver, Gallbladder, Biliary Tree: The liver is normal in size, shape, and attenuation. No focal hepatic lesion or biliary ductal dilatation is present. 2.1 cm stone in the gallbladder lumen. No wall thickening or adjacent inflammation.? Pancreas: Unremarkable.? Spleen: Unremarkable.? Adrenal Glands: Unremarkable.? Kidneys and Ureters: The kidneys are normal in size, shape, and attenuation. No hydronephrosis or hydroureter. There is a right mid to lower pole 0.8 cm calculus which is 8 cm from the posterior axillary line. This measures 900 Hounsfield units. Exophytic anterior left lower pole 2.5 cm simple cyst, no specific follow-up recommended. There is a hyperdense left upper pole lesion which measures 1.6 cm. This favors a proteinaceous/hemorrhagic cyst. Bladder: Unremarkable.? Gastrointestinal Tract: The stomach is unremarkable. Normal caliber small bowel. No obstruction. No colonic wall thickening or acute inflammation. Diverticulosis without diverticulitis. This is greatest at the sigmoid colon. The appendix is unremarkable.? Abdominal Wall: No hernia is demonstrated.? Lymphovascular Structures:? Lymph nodes: Normal. Vascular: Normal caliber aorta with mild atherosclerotic calcification. Pelvic Viscera: Uterus not seen. No adnexal mass.? OSSEOUS STRUCTURES: Compression deformity of the T11 vertebral body is unchanged from 11/11/2021 with gas along the superior endplate. Mild height loss of T12 is also unchanged. Multilevel endplate osteophytes. Disc space narrowing throughout the lumbar spine with vacuum disc phenomenon. The sternum is intact. Chronic irregularity of the right posterior fifth and sixth ribs with partial resection. No acute rib fracture identified. No acute pelvic fracture. Degenerative change at both hips. Unchanged sclerosis in the right iliac bone. This has a nonaggressive appearance. CT/CT chest wo IV con IMPRESSION: No acute traumatic finding of the chest, abdomen, or pelvis. No fractures. ? Cholelithiasis.? ? Chronic changes in the lungs with calcified pleural plaques. Dictated By: Kyle Fontanez MD Signed By: Electronically signed by Kyle Fontanez MD 12/13/21 1223 ECG Data Attestation: I personally reviewed and interpreted this ECG as follows: Prior ECG tracings: available for review Interpretation: Vent. Rate: 080 BPM ? ? Atrial Rate: 000 BPM P-R Int: 000 ms? QRS Dur: 094 ms QT Int: 394 ms ? ? ? P-R-T Axes: 000 -30 038 degrees QTc Int: 454 ms ? Atrial fibrillation with premature ventricular or aberrantly conducted complexes and with ventricular escape complexes Left axis deviation Minimal voltage criteria for LVH, may be normal variant ( Harjinder product ) Nonspecific ST abnormality Abnormal ECG When compared with ECG of 30-NOV-2021 07:36, Sinus rhythm is now with ventricular escape complexes DD/ 1005 Discharge Plan Discharge Clinical Impression: Fall Patient Disposition: Home, Self-Care Instructions: Fall Prevention for Older Adults (ED) Additional Instructions: Follow up the coagulation clinic at 11:15 am tomorrow at 12/14/2021. HOLD YOUR COUMADIN THIS EVENING AND TOMORROW. Follow up with your primary care provider. Return to the emergency department immediately if your symptoms worsen or if you develop any dizziness, shortness of breath, difficulty breathing, chest pain, blurry vision, loss of vision, nausea, vomiting, abdominal pain, fever, chills, back pain, or any other complaints. Prescriptions: No Action estradiol 0.01 % (0.1 mg/gram) cream 1 g vaginal 3XW Qty: 42.5 2RF Lantus Solostar U-100 Insulin 100 unit/mL (3 mL) insulin pen 51 unit subcut BEDTIME Qty: 60 3RF insulin lispro 200 unit/mL (3 mL) insulin pen 35 unit subcut BEDTIME Qty: 6 5RF metformin 1,000 mg tablet 1,000 mg PO BID Qty: 180 3RF ferrous fumarate [Ferrocite] 324 mg (106 mg iron) tablet 324 mg PO DAILY Qty: 90 3RF (DME) pen needle, diabetic [BD Ultra-Fine Mini Pen Needle] 31 gauge x 3/16 needle See Rx Instructions .Route Qty: 100 4RF Rx Instructions: As directed cyanocobalamin (vitamin B-12) 1,000 mcg/mL solution 1,000 mcg IM Q4W Qty: 3 3RF rosuvastatin 5 mg tablet 5 mg PO 3XW Qty: 39 3RF metoprolol succinate 50 mg tablet extended release 24 hr 50 mg PO DAILY Qty: 90 2RF warfarin 2 mg tablet See Rx Instructions .ROUTE .COMPLEX Qty: 180 1RF Protocol: Dose Management Condition: Sunday (Week One) Dose/Route: 6 mg Instruction: 3 x 2 mg tablets Condition: Sunday Dose/Route: 6 mg Instruction: 3 x 2 mg tablets Condition: Sunday Dose/Route: 4 mg Instruction: 2 x 2 mg tablets Condition: Sunday Dose/Route: 6 mg Instruction: 3 x 2 mg tablets Condition: Dose/Route: 6 mg Instruction: 3 x 2 mg tablets Condition: Sunday Dose/Route: 6 mg Instruction: 3 x 2 mg tablets Condition: Sunday Dose/Route: 6 mg Instruction: 3 x 2 mg tablets Condition: Sunday (Week Two) Dose/Route: 6 mg Instruction: 3 x 2 mg tablets Condition: Sunday Dose/Route: 6 mg Instruction: 3 x 2 mg tablets Condition: Sunday Dose/Route: 4 mg Instruction: 2 x 2 mg tablets Condition: Sunday Dose/Route: 6 mg Instruction: 3 x 2 mg tablets Condition: Dose/Route: 6 mg Instruction: 3 x 2 mg tablets Condition: Sunday Dose/Route: 6 mg Instruction: 3 x 2 mg tablets Condition: Sunday Dose/Route: 6 mg Instruction: 3 x 2 mg tablets Protocol Text: Adjustment Start Date: Sunday11/25/21 INR Value: 2.9 INR Date: 11/25/21 Recheck Date: 12/09/21 Additional Instructions: cont reg dosing balance reds and greens call with any medication changes Rx Instructions: 6mg (2mg) Sunday, Sunday, sunday,, Sunday and on Sunday 4mg (2mg) amlodipine 5 mg tablet 5 mg PO DAILY coenzyme Q10 [Co Q-10] 30 mg capsule 30 mg PO DAILY calcium carbonate 500 mg calcium (1,250 mg) tablet 500 mg PO DAILY magnesium 250 mg tablet 500 mg PO DAILY PreserVision AREDS [id number] capsule 1 cap PO BID Referrals: Patricia Nicole MD [Primary Care Provider] - Interventions: ED Discharge Assessment Last Done: 12/13/21 13:46 Discharge Date/Time: 12/13/21 13:50 Print Language: German
[2021-12-13 12:15] LABS: Appearance Urine Clear; Color Urine Yellow; Glucose Urine UA 100 mg/dL (Negative); Leukocyte Esterase Urine Negative (Negative); Nitrite Urine Negative (Negative); Specific Gravity - Urine 1.015 (1.005-1.025); UMIC TRIGGER UACC YES; Urine Blood Negative (Negative); Urine Ketones 15 mg/dL (Negative); Urine Protein 30 (1+) mg/dL (Neg-Trace)
[2021-12-13 12:18] LABS: Bacteria Urine 2+ (None Seen); Hyaline Casts Urine 0-2 /LPF (0-2); RBC Urine 0-2 /HPF (0-2); Squamous Epithelial Cell Urine 0-2 /HPF (0-2); WBC Urine 0-5 /HPF (0-5)
[2021-12-13 13:14] VITALS: BP 155/66; PULSE 69; RESP 18; O2SAT 99
== END 2021-12-13 13:50 | disposition home or self-care (01) ==
PROVIDERS: Physician Assistant Medical; Emergency Provider Emergency Medicine; PCP Internal Medicine
DX: S39.92XA Unspecified injury of lower back, initial encounter (principal); R07.89 Other chest pain; M54.6 Pain in thoracic spine; M54.2 Cervicalgia; R51.9 Headache, unspecified; W01.0XXA Fall on same level from slipping, tripping and stumbling without subsequent striking against object, initial encounter; Y93.9 Activity, unspecified; Y92.9 Unspecified place or not applicable; Y99.9 Unspecified external cause status; Z79.899 Other long term (current) drug therapy
CPT/HCPCS: 36415; 70450; 71250; 72125; 74176; 80048; 80076; 81001; 81003; 85025; 85610; 85730; 93005; 99284

== ENCOUNTER → 2021-12-14 11:09 | Outpatient (BNVA) | payer MEDICARE, SELFPAY | PROVIDERS: PCP Internal Medicine; Visit Provider Internal Medicine | DX: I48.21 Permanent atrial fibrillation (principal); Z79.01 Long term (current) use of anticoagulants; Z51.81 Encounter for therapeutic drug level monitoring | CPT/HCPCS: 85610; 99211 ==

== ENCOUNTER → 2021-12-16 13:13 | Outpatient (BNVA) | payer MEDICARE, SELFPAY | PROVIDERS: PCP Internal Medicine; Visit Provider Internal Medicine | DX: I48.21 Permanent atrial fibrillation (principal); Z79.01 Long term (current) use of anticoagulants; Z51.81 Encounter for therapeutic drug level monitoring | CPT/HCPCS: 85610; 99211 ==

== ENCOUNTER 2021-12-18 17:13 | Inpatient (IN) | payer MEDICARE, SELFPAY ==
--- NOTE | ~2021-12-18 | US_ITS ---
EXAMINATION: US ABDOMEN LIMITED CLINICAL INFORMATION: Right upper quadrant pain. COMPARISON: 12/13/2021 TECHNIQUE: Real-time imaging of the right upper quadrant abdominal viscera. FINDINGS: PANCREAS: Not visualized LIVER: Not well-demonstrated GALLBLADDER: Large stone within the fundus. No acute inflammatory changes. COMMON BILE DUCT: Normal in caliber measuring 0.3 cm in diameter. FREE FLUID: None. US/US abdomen limited IMPRESSION: Cholelithiasis.
--- NOTE | ~2021-12-18 | MR_ITS ---
EXAMINATION: MR LUMBAR SPINE WITHOUT CONTRAST CLINICAL INFORMATION: Fall. Back pain. COMPARISON: CT abdomen and pelvis from 12/13/2021 and 06/18/2020. TECHNIQUE: MRI of the lumbar spine was obtained using routine sequences without contrast. FINDINGS: Moderate right convex curvature of the lumbar spine. Degenerative grade 1 anterolisthesis of L4 on L5. Otherwise, normal anatomic alignment. Anterior wedge deformities of the T11 and T12 superior endplates are again demonstrated with 50% and 30% loss of anterior body height respectively. Minimal residual marrow edema beneath the superior endplate of T11. No residual marrow edema at T12. Advanced degenerative disc disease at T11-T12, L1-L2, L2-L3, and L5-S1. Moderate degenerative disc disease at all additional levels. Associated mixed Modic type discogenic endplate changes including mild Modic type I discogenic edema at L1-L2 and L3-L4. Lipid rich hemangioma within the L1 vertebral body. No additional suspicious marrow edema. The remaining vertebral body heights are largely maintained. The conus medullaris terminates at the level of L2. The distal spinal cord is normal in appearance. No significant abnormalities of the paraspinal musculature. There is a 1.9 cm lipid rich lesion associated with the lateral arm of the right adrenal gland consistent with adrenal myelolipoma (no follow-up imaging recommended based on current guidelines at the time of examination). Multiple subcentimeter T2 hyperintense renal cysts bilaterally (no follow-up imaging recommended based on current guidelines at the time of examination). Otherwise, limited evaluation of the intra-abdominal structures without significant abnormalities. The abdominal aorta is of normal contour and caliber. AXIAL SPINAL LEVELS: T10-T11: Mild posterior osseous ridging. There is moderate bilateral facet joint arthropathy. There is mild bilateral neural foraminal stenosis. There is no spinal canal stenosis. T11-T12: Moderate diffuse disc bulge with posterior osseous ridging and superimposed left subarticular disc protrusion. There is moderate bilateral facet joint arthropathy. There is mild bilateral neural foraminal stenosis. There is stenosis of the left subarticular zone with no overt spinal canal stenosis centrally. T12-L1: Mild diffuse disc bulge with superimposed shallow central disc protrusion. There is moderate left and mild right facet joint arthropathy. There is no neural foraminal stenosis. There is no spinal canal stenosis. L1-L2: Moderate diffuse disc bulge with posterior osseous ridging and superimposed right subarticular disc protrusion. There is moderate to severe bilateral facet joint arthropathy. There is severe right and moderate left neural foraminal stenosis. There is stenosis of the right worse than left subarticular zones with no overt spinal canal stenosis centrally. L2-L3: Moderate diffuse disc bulge with posterior osseous ridging. There is moderate bilateral facet joint arthropathy. There is moderate to severe bilateral neural foraminal stenosis. There is stenosis of the subarticular zones with mild spinal canal stenosis centrally. L3-L4: Moderate diffuse disc bulge with posterior osseous ridging. There is moderate to severe bilateral facet joint arthropathy. There is moderate bilateral neural foraminal stenosis. There is stenosis of the subarticular zones with no overt spinal canal stenosis centrally. L4-L5: Moderate diffuse disc bulge. There is severe left and moderate right facet joint arthropathy. There is moderate right worse than left neural foraminal stenosis. There is stenosis of the subarticular zones with no overt spinal canal stenosis centrally. L5-S1: Moderate diffuse disc bulge with superimposed central disc protrusion. There is moderate bilateral facet joint arthropathy. There is moderate right and mild left neural foraminal stenosis. There is narrowing of the subarticular zones with no overt spinal canal stenosis centrally. MR/MR lumbar spine wo con IMPRESSION: 1. Redemonstrated anterior wedge deformities of the T11 and T12 superior endplates. Minimal residual marrow edema beneath the superior endplate of T11. No additional suspicious marrow edema or new loss of vertebral body heights. 2. 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 Most notably, there is mild spinal canal stenosis at L2-L3. Stenoses of the subarticular zones at T11-T12 and from L1-S1. Moderate to severe neural foraminal stenoses from L1-S1.
[2021-12-18 17:24] VITALS: BP 144/69; PULSE 65; RESP 16; TEMP 36.8; O2SAT 94; BMI 29.0
--- NOTE | 2021-12-18 17:31 | ECG_ITS ---
Test Reason : A-FIB Blood Pressure : / mmHG Vent. Rate : 060 BPM Atrial Rate : 000 BPM P-R Int : 000 ms QRS Dur : 094 ms QT Int : 428 ms P-R-T Axes : 000 -40 029 degrees QTc Int : 428 ms Atrial fibrillation with premature ventricular or aberrantly conducted complexes Left axis deviation Nonspecific ST abnormality Abnormal ECG When compared with ECG of 13-DEC-2021 10:05, No significant change was found Referred By: Generic ED Physician Electronically Signed By:TEDDY KUMAR
[2021-12-18 19:32] LABS: MANUAL DIFF FLAG NO
[2021-12-18 19:33] LABS: Basophils Percent Auto 0.4 % (0-2); Eosinophils Absolute Auto 0.1 X10*3/uL (0.0-0.4); Eosinophils Percent Auto 0.9 % (0-4); Hemoglobin 13.1 g/dl (12.0-16.0); Imm Gran Abs Auto 0.05 X10*3/uL (0.00-0.03); Imm Gran Pct Auto 0.6 % (0.0-0.4); Lymphocytes Absolute Auto 1.2 X10*3/uL (1.2-4.9); Lymphocytes Percent Auto 13.3 % (20-40); Mean Corpuscular HGB Conc 34.5 g/dl (31.0-35.0); Mean Corpuscular Hemoglobin 28.4 pg (27.0-33.0); Mean Corpuscular Volume 82.3 fL (80.0-98.0); Mean Platelet Volume 8.9 fL (9.4-12.3); Monocytes Absolute Auto 1.1 X10*3/uL (0.1-1.2); Neutrophils Absolute Auto 6.5 x10*3/uL (2.0-8.3); Neutrophils Percent Auto 72.8 % (45-73); Platelet Count 327 X10*3/uL (160-400); Red Blood Count 4.62 X10*6/uL (4.20-5.50); Red Cell Distribution Width 14.3 % (11.0-16.0); White Blood Count 8.9 X10*3/uL (4.8-10.8)
[2021-12-18 19:56] LABS: D Dimer High Sensitivity 214 NG/ML
[2021-12-18 20:08] LABS: Alanine Aminotransferase 15 U/L (0-31); Albumin Level 4.2 g/dL (3.5-5.0); Alkaline Phosphatase 60 U/L (39-117); Anion Gap 19 (12-20); Aspartate Amino Transferase 20 U/L (5-31); Bilirubin Total 1.1 mg/dL (0.0-1.0); Blood Urea Nitrogen 14 mg/dL (9-16); Calcium 9.3 mg/dL (8.4-10.2); Carbon Dioxide 22 mmol/L (22-29); Chloride 89 mmol/L (96-108); Creatinine Clr Calc Pharmacy 60.1; Estimated Glomerular Filt Rate > 60; Glucose Random 157 mg/dL (60-115); Lipase 63 U/L (8-78); Sodium 125 mmol/L (135-145); Total Protein 7.2 g/dL (6.5-8.0)
--- NOTE | 2021-12-18 22:39 | ED_ITS ---
HPI - General Adult General Chief complaint: Abdominal Pain Stated complaint: sharp abdominal pain Time Seen by Provider: 12/18/21 17:18 Source: patient and family (Spouse) Mode of arrival: ambulatory Limitations: no limitations History of Present Illness HPI narrative: 81-year-old female came in for evaluation of generalized weakness and falling and abdominal pain. Patient was seen and evaluated 4 days ago in the emergency department after falling (passed out) patient had a CT C-spine/CAD/chest/abdomen showed no acute traumatic injuries but there was incidental acute cholelithiasis. Patient was sent home has been feeling weak and still having abdominal pain mostly with breathing and food patient has nonspecific description to the pain but mostly in the epigastric/right upper quadrant area. No fever, chills. Patient with history of atrial fibrillation taking Coumadin, patient has multiple bruises on her back and her buttocks area from multiple falls. Related Data Home Medications Medication Instructions Recorded Confirmed amlodipine 5 mg tablet 5 mg PO DAILY 03/03/20 11/30/21 calcium carbonate 500 mg calcium 500 mg PO DAILY 11/04/21 11/30/21 (1,250 mg) tablet coenzyme Q10 30 mg capsule (Co 30 mg PO DAILY 11/04/21 11/30/21 Q-10) magnesium 250 mg tablet 500 mg PO DAILY 11/04/21 11/30/21 vitamins A,C,E-ynvo-vdsoxy 14,320 1 cap PO BID 11/04/21 11/30/21 unit-226 mg-200 unit capsule (PreserVision AREDS) Previous Rx's Medication Instructions Recorded estradiol 0.01% (0.1 mg/gram) 1 g vaginal 3XW #42.5 grams 01/29/20 vaginal cream insulin glargine 100 unit/mL (3 51 unit (0.51 mL) subcut BEDTIME 10/15/20 mL) subcutaneous pen (Lantus #60 mL Solostar U-100 Insulin) insulin lispro 200 unit/mL (3 mL) 35 unit (0.175 mL) subcut BEDTIME 02/17/21 subcutaneous pen #6 mL metformin 1,000 mg tablet 1,000 mg PO BID #180 tabs 03/11/21 ferrous fumarate 324 mg (106 mg 324 mg PO DAILY #90 tabs 07/20/21 iron) tablet (Ferrocite) pen needle, diabetic 31 gauge x #100 ea 08/23/2106/01 (BD Ultra-Fine Mini Pen Needle) cyanocobalamin (vitamin B-12) 1,000 mcg IM Q4W #3 mL 08/24/21 1,000 mcg/mL injection solution rosuvastatin 5 mg tablet 5 mg PO 3XW #39 tabs 08/25/21 metoprolol succinate 50 mg 50 mg PO DAILY #90 tabs 09/26/21 tablet,extended release 24 hr warfarin 2 mg tablet See Rx Instructions .Route 11/15/21 .COMPLEX #180 tabs tramadol 50 mg tablet 50 mg PO DAILY PRN pain #10 tabs 12/18/21 Allergies Allergy/AdvReac Type Severity Reaction Status Date / Time adhesive tape [Adhesive Tape] Allergy Mild CONTACT Verified 12/16/21 13:14 DERMATITIS cephalexin [CEPHALEXIN] Allergy Unknown SWELLING Verified 12/16/21 13:14 latex [Latex] Allergy Unknown RASH Verified 12/16/21 13:14 oxycodone [From PERCOCET] Allergy Unknown PER H&P Verified 12/16/21 13:14 Biaxin AdvReac Intermediate plapitation Verified 12/16/21 13:14 s bacitracin [From Cortisporin] AdvReac Mild EYE Verified 12/16/21 13:14 IRRITATION hydrocortisone AdvReac Mild EYE Verified 12/16/21 13:14 [From Cortisporin] IRRITATION neomycin [From Cortisporin] AdvReac Mild EYE Verified 12/16/21 13:14 IRRITATION flecainide [From Tambocor] AdvReac Unknown HEART Verified 12/16/21 13:14 RACING lisinopril [LISINOPRIL] AdvReac Unknown cough, Verified 12/16/21 13:14 nausea Sulfa (Sulfonamide AdvReac Unknown PALPITATION Verified 12/16/21 13:14 Antibiotics) S [SULFA(SULFONAMIDE ANTIBIOTICS)] Review of Systems Review of Systems: All other systems are reviewed and are negative Constitutional: Reports as per HPI and Reports no additional constitutional complaints Eyes: Reports as per HPI and Reports no additional eye complaints Reports system reviewed and no additional complaints, except as documented Cardiovascular: Reports as per HPI and Reports no additional cardiovascular complaints Respiratory: Reports as per HPI and Reports no additional respiratory complaints Gastrointestinal: Reports as per HPI and Reports no additional gastrointestinal complaints Genitourinary: Reports no additional female genitourinary complaints Musculoskeletal: Reports no additional musculoskeletal complaints Skin/Breast: Reports system reviewed and no additional complaints, except as docu Psychiatric: Reports no additional psychiatric complaints Endocrine: Reports no additional endocrine complaints Hematologic/Lymphatic: Reports no additional hematologic/lymphatic complaints Allergic/Immunologic: Reports no additional allergic/immunologic complaints Reports system reviewed and no additional complaints, except as documented and Reports Abnormal speech present PMFSH Past Medical History Medical History Atrophic vaginitis Compression deformity of vertebra Dyslipidemia Early satiety Essential hypertension Heartburn Microcytic anemia Non-rheumatic mitral regurgitation Osteoarthritis of knees, bilateral Osteopenia Permanent atrial fibrillation Pulmonary hypertension Renal cyst Right nephrolithiasis Type 2 diabetes mellitus with diabetic neuropathy, 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 Son No problems noted. Daughter No problems noted. Social History Social History Housing: House Alcohol intake: never Patient Tobacco Use Status: Never used Tobacco e-Cigarette/Vaping Use: Never Used Advance Directives: No Advance Directives Information Provided: Yes service: No Current occupational status: retired Cognitive needs: No Hearing needs: Yes Vision needs: Yes Physical Exam ED Vital Signs: Vital Signs - 24 hr 12/18/21 17:24 12/18/21 23:44 Temperature 98.2 F 98.2 F Pulse Rate 65 70 Respiratory Rate 16 22 H Blood Pressure 144/69 H 128/62 Pulse Oximetry 94 96 Oxygen Delivery Method Room Air Room Air BMI result Body Mass Index 29.0 Vital signs have been reviewed as appeared to be correct. Blood pressure normal. Heart rate normal. Respiration rate normal. Temperature normal. Ox ygen saturation normal. Appearance: Alert. Oriented X3. No acute distress. Head: Normal external exam. Normocephalic. Atraumatic. No Person signs noted. No raccoon eyes noted Eyes: PERRLA. EOMI. Conjunctiva and sclera normal. Eyelids normal. ENT: TM's Normal. Pharynx normal. Uvula midline. Moist mucous membranes. No trismus noted. No drooling noted. No muffled voice noted. Neck: Normal inspection. Neck supple. FROM. No adenopathy. Thyroid Normal. No meningeal signs. No neck mass noted. CVS: Normal heart rate and rhythm. Heart sound normal. No murmurs noted. Pulses normal throughout. Respiratory: No respiratory distress. Painless inspiration. Breath sounds n ormal. No wheezes/rales/rhonchi noted. Chest nontender. No accessory muscle usage noted or decreased air movement noted. Abdomen: Soft, right upper quadrant tenderness, no rebound tenderness, no gua rding.. Bowel sounds normal in all 4 quadrants. No distention noted. No organomegaly noted. No visible injury noted. Back: No CVA tenderness. Full range of motion noted. Skin: Multiple areas of ecchymosis on the upper back and the buttock area.. Extremities: No lower extremity edema. Extremities exhibit normal range of motion. Extremities nontender. Neuro: Oriented X 3. Cranial nerve exam: II-XII are grossly intact No motor deficit. No sensory deficit. Reflexes normal. Course Course Course Narrative: 81-year-old female came in for generalized weakness and multiple follow-up home patient recently was evaluated in the ED with negative workup. 1. Hyponatremia attempt to get orthostatic vital signs patient fell dizzy when she stood up it is likely hypovolemic hyponatremia will replace with normal saline at 75 cc/hour. 2. Hypocoagulable state due to Coumadin overdose will hold Coumadin for tonight as per hospitalist management. 3. Cholelithiasis without acute cholecystitis probably can be addressed as an outpatient to follow up with surgery. Medical Decision Making Lab Data Lab results reviewed: Yes I reviewed the patient's lab results. Result diagrams: 12/18/21 19:25 12/18/21 19:25 Labs: Lab Results 12/18/21 12/18/21 12/18/21 Range/Units 19:25 19:25 19:25 WBC 8.9 (4.8-10.8) X10*3/uL RBC 4.62 (4.20-5.50) X10*6/uL Hgb 13.1 (12.0-16.0) g/dl Hct 38.0 (37.0-47.0) % MCV 82.3 (80.0-98.0) fL MCH 28.4 (27.0-33.0) pg MCHC 34.5 (31.0-35.0) g/dl RDW 14.3 (11.0-16.0) % Plt Count 327 D (160-400) X10*3/uL MPV 8.9 L (9.4-12.3) fL Immature Gran % (Auto) 0.6 H (0.0-0.4) % Neut % (Auto) 72.8 (45-73) % Lymph % (Auto) 13.3 L (20-40) % [place] % (Auto) 12.0 H (2-11) % Eos % (Auto) 0.9 (0-4) % Baso % (Auto) 0.4 (0-2) % Lymph # (Auto) 1.2 (1.2-4.9) X10*3/uL [place] # (Auto) 1.1 (0.1-1.2) X10*3/uL Eos # (Auto) 0.1 (0.0-0.4) X10*3/uL Baso # (Auto) 0.0 (0.0-0.2) X10*3/uL Abs Immat Gran (auto) 0.05 H (0.00-0.03) X10*3/uL Absolute Neuts (auto) 6.5 (2.0-8.3) x10*3/uL Absolute Nucleated RBC 0.000 (0.0-0.012) X10*3/uL Nucleated RBC % (auto) 0.0 (0.0-0.2) /100WBC PT 74.4 H (10.0-13.1) SEC INR 6.0 H* (0.9-1.1) D-Dimer High Sensitivty 214 NG/ML Sodium 125 L (135-145) mmol/L Potassium 5.0 (3.3-5.1) mmol/L Chloride 89 L (96-108) mmol/L Carbon Dioxide 22 (22-29) mmol/L Anion Gap 19 (12-20) BUN 14 (9-16) mg/dL Creatinine 0.71 (0.5-1.4) mg/dL Estim Creat Clear Calc 60.1 Estimated GFR > 60 Random Glucose 157 H (60-115) mg/dL Calcium 9.3 (8.4-10.2) mg/dL Total Bilirubin 1.1 H (0.0-1.0) mg/dL AST 20 (5-31) U/L ALT 15 (0-31) U/L Alkaline Phosphatase 60 (39-117) U/L Total Protein 7.2 (6.5-8.0) g/dL Albumin 4.2 (3.5-5.0) g/dL Lipase 63 (8-78) U/L Urine Color Urine Appearance Urine pH (5.0-9.0) Ur Specific [place] (1.005-1.025) Urine Protein (Neg-Trace) mg/dL Urine Glucose (UA) (Negative) mg/dL Urine Ketones (Negative) mg/dL Urine Blood (Negative) Urine Nitrite (Negative) Ur Leukocyte Esterase (Negative) Urine Osmolality (373-1093) mosm/kg Ur Random Sodium mmol/L Ur Random Potassium mmol/L Ur Random Chloride mmol/L 12/18/21 12/18/21 12/18/21 Range/Units 23:47 23:47 23:47 WBC (4.8-10.8) X10*3/uL RBC (4.20-5.50) X10*6/uL Hgb (12.0-16.0) g/dl Hct (37.0-47.0) % MCV (80.0-98.0) fL MCH (27.0-33.0) pg MCHC (31.0-35.0) g/dl RDW (11.0-16.0) % Plt Count (160-400) X10*3/uL MPV (9.4-12.3) fL Immature Gran % (Auto) (0.0-0.4) % Neut % (Auto) (45-73) % Lymph % (Auto) (20-40) % [place] % (Auto) (2-11) % Eos % (Auto) (0-4) % Baso % (Auto) (0-2) % Lymph # (Auto) (1.2-4.9) X10*3/uL [place] # (Auto) (0.1-1.2) X10*3/uL Eos # (Auto) (0.0-0.4) X10*3/uL Baso # (Auto) (0.0-0.2) X10*3/uL Abs Immat Gran (auto) (0.00-0.03) X10*3/uL Absolute Neuts (auto) (2.0-8.3) x10*3/uL Absolute Nucleated RBC (0.0-0.012) X10*3/uL Nucleated RBC % (auto) (0.0-0.2) /100WBC PT (10.0-13.1) SEC INR (0.9-1.1) D-Dimer High Sensitivty NG/ML Sodium (135-145) mmol/L Potassium (3.3-5.1) mmol/L Chloride (96-108) mmol/L Carbon Dioxide (22-29) mmol/L Anion Gap (12-20) BUN (9-16) mg/dL Creatinine (0.5-1.4) mg/dL Estim Creat Clear Calc Estimated GFR Random Glucose (60-115) mg/dL Calcium (8.4-10.2) mg/dL Total Bilirubin (0.0-1.0) mg/dL AST (5-31) U/L ALT (0-31) U/L Alkaline Phosphatase (39-117) U/L Total Protein (6.5-8.0) g/dL Albumin (3.5-5.0) g/dL Lipase (8-78) U/L Urine Color Yellow Urine Appearance Clear Urine pH 6.5 (5.0-9.0) Ur Specific [place] <= 1.005 (1.005-1.025) Urine Protein Negative (Neg-Trace) mg/dL Urine Glucose (UA) Negative (Negative) mg/dL Urine Ketones 15 (Negative) mg/dL Urine Blood Negative (Negative) Urine Nitrite Negative (Negative) Ur Leukocyte Esterase Negative (Negative) Urine Osmolality 162 L (373-1093) mosm/kg Ur Random Sodium 33.0 mmol/L Ur Random Potassium 7.7 mmol/L Ur Random Chloride 34.0 mmol/L Imaging Data Abdominal ultrasound: Attestation: I personally reviewed and interpreted this imaging study as follows: Radiologist's impression: Cholelithiasis. ECG Data Attestation: I personally reviewed and interpreted this ECG as follows: Interpretation: Atrial fibrillation at 60 beats per minute with occasional PVCs, left axis deviation. Discharge Plan Discharge Clinical Impression: Acute hyponatremia, Warfarin overdosage, Cholelithiasis Patient Disposition: Admitted As Inpatient
[2021-12-18 23:44] VITALS: BP 128/62; PULSE 70; RESP 22; TEMP 36.8; O2SAT 96
[2021-12-18 23:58] LABS: Appearance Urine Clear; Color Urine Yellow; Glucose Urine UA Negative (Negative); Leukocyte Esterase Urine Negative (Negative); Nitrite Urine Negative (Negative); PH 6.5 (5.0-9.0); Specific Gravity - Urine <= 1.005 (1.005-1.025); Urine Blood Negative (Negative); Urine Ketones 15 mg/dL (Negative); Urine Protein Negative (Neg-Trace)
[2021-12-19 00:04] LABS: Potassium Urine Random 7.7 mmol/L
[2021-12-19 00:06] LABS: Prothrombin Time 74.4 SEC (10.0-13.1)
[2021-12-19 00:19] LABS: Osmolality Urine 162 mosm/kg (373-1093)
[2021-12-19] MEDS: 0.9 % Sodium Chloride 1,000 ML 75 ML IVCONT (01:10)
[2021-12-19 01:37] LABS: COVID-19 Test Negative (Negative); IDNOW Serial# 9DB6401D
[2021-12-19 04:37] VITALS: PULSE 70; RESP 18; O2SAT 96
[2021-12-19] MEDS: Acetaminophen 325 MG TABLET 650 MG PO (05:07)
[2021-12-19] MEDS: 0.9 % Sodium Chloride 1,000 ML 50 ML IVCONT (05:09)
--- NOTE | 2021-12-19 06:07 | PC.NURSE ---
pt laying on her right side and hr dropping to 33 while asleep. when awake and supine hr 60-70. repeat ekg being done. pt denies pain.
--- NOTE | 2021-12-19 06:08 | ECG_ITS ---
Test Reason : BRADYCARDIA Blood Pressure : / mmHG Vent. Rate : 054 BPM Atrial Rate : 000 BPM P-R Int : 000 ms QRS Dur : 092 ms QT Int : 442 ms P-R-T Axes : 000 -46 032 degrees QTc Int : 419 ms Atrial fibrillation with slow ventricular response Left anterior fascicular block Nonspecific ST abnormality Abnormal ECG When compared with ECG of 18-DEC-2021 22:26, Heart rate has decreased Referred By: Eduardo Ogden Electronically Signed By:TEDDY KUMAR
--- NOTE | 2021-12-19 06:10 | PM.IMHP ---
History of Present Illness Date of Service: 12/19/21 Chief Complaint: Gen Weakness 81-year-old female with a past medical history of hypertension, hyperlipidemia, diabetes, AFib on Coumadin, pulmonary hypertension, GERD, anemia, vertebral compression fractures, renal calculi, osteoporosis, presented to the hospital today with a chief complaint of generalized weakness. Patient mentioned that over the past 4 days she has been having generalized weakness and has been not eating well. Mentions that she had a fall recently, came to the ER, had CT scan done with no acute findings. Currently denies any fall. Reports intermittent abdominal discomfort. Denies any nausea vomiting or diarrhea. Denies any blood in the stool. Denies any headaches or blurry visions. Mentions that she has chronic peripheral edema and used to take Lasix for 8. Currently not taking any Lasix. Mentions that she has easy bruising attributes to the recent fall. Denies any chest pain or palpitations Denies any cough or sputum production. Denies any urinary symptoms. Review of all other systems is negative except mentioned above ER course: Per ER team patient's exam was grossly benign, noted a mild the right upper quadrant tenderness-CT abdomen showed cholelithiasis; not concern for cholangitis or acute cholecystitis. On labs noted to have sodium levels of 125 and INR of 6.1. 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 Son No problems noted. Daughter No problems noted. Surgical History History of hysterectomy History of lobectomy of lung History of lumbar discectomy History of total right knee replacement (TKR) Lumbar radiculopathy Social History Housing: House Alcohol intake: never Patient Tobacco Use Status: Never used Tobacco e-Cigarette/Vaping Use: Never Used Advance Directives: No Advance Directives Information Provided: Yes service: No Current occupational status: retired Cognitive needs: No Hearing needs: Yes Vision needs: Yes Meds Allergies Allergy/AdvReac Type Severity Reaction Status Date / Time adhesive tape [Adhesive Tape] Allergy Mild CONTACT Verified 12/16/21 13:14 DERMATITIS cephalexin [CEPHALEXIN] Allergy Unknown SWELLING Verified 12/16/21 13:14 latex [Latex] Allergy Unknown RASH Verified 12/16/21 13:14 oxycodone [From PERCOCET] Allergy Unknown PER H&P Verified 12/16/21 13:14 Biaxin AdvReac Intermediate plapitation Verified 12/16/21 13:14 s bacitracin [From Cortisporin] AdvReac Mild EYE Verified 12/16/21 13:14 IRRITATION hydrocortisone AdvReac Mild EYE Verified 12/16/21 13:14 [From Cortisporin] IRRITATION neomycin [From Cortisporin] AdvReac Mild EYE Verified 12/16/21 13:14 IRRITATION flecainide [From Tambocor] AdvReac Unknown HEART Verified 12/16/21 13:14 RACING lisinopril [LISINOPRIL] AdvReac Unknown cough, Verified 12/16/21 13:14 nausea Sulfa (Sulfonamide AdvReac Unknown PALPITATION Verified 12/16/21 13:14 Antibiotics) S [SULFA(SULFONAMIDE ANTIBIOTICS)] Active Medications: Current Medications Acetaminophen (Acetaminophen 325 Mg Tablet) 650 mg PO Q6H PRN PRN Reason: Pain, Mild (Pain Scale 1-3) Last Admin: 12/19/21 05:07 Dose: 650 mg Sodium Chloride (Ns) 1,000 mls @ 75 mls/hr IVCONT .[id number] ONE Stop: 12/19/21 13:48 Last Infusion: 12/19/21 05:10 Dose: 0 mls/hr Sodium Chloride (Ns) 1,000 mls @ 50 mls/hr IVCONT .Q20H TASHA Last Admin: 12/19/21 05:09 Dose: 50 mls/hr Melatonin (Melatonin 3 Mg Tablet) 6 mg PO BEDTIME PRN PRN Reason: Insomnia Senna (Sennosides 8.6 Mg Tablet) 17.2 mg PO BEDTIME PRN PRN Reason: Constipation Sodium Chloride (0.9 % Sodium Chloride Flush 3 Ml Syringe) 3 ml IVFLUSH QSHIFT [facility] Home Medications Medication Instructions Recorded Confirmed Last Taken Type amlodipine 5 mg tablet 5 mg PO DAILY 03/03/20 11/30/21 Unknown History calcium carbonate 500 mg calcium 500 mg PO DAILY 11/04/21 11/30/21 Unknown History (1,250 mg) tablet coenzyme Q10 30 mg capsule (Co 30 mg PO DAILY 11/04/21 11/30/21 Unknown History Q-10) magnesium 250 mg tablet 500 mg PO DAILY 11/04/21 11/30/21 Unknown History vitamins A,C,O-hivm-ksgsft 14,320 1 cap PO BID 11/04/21 11/30/21 Unknown History unit-226 mg-200 unit capsule (PreserVision AREDS) Physical Exam Vital Signs and Narrative: Vital Signs: Last Vital Signs Temp 98.2 F 12/18/21 23:44 Pulse 70 12/19/21 04:37 Resp 18 12/19/21 04:37 BP 128/62 12/18/21 23:44 Pulse Ox 96 12/19/21 04:37 O2 Del Method 12/19/21 04:37 BMI result Body Mass Index 29.0 Gen: Appears be in no acute distress HEENT: NCAT, Moist mucosa. Pulmonary: Vesicular breath sounds, fair air entry CVS: Normal S1-S2 Abdomen: BS+, Soft, Nontender Extremities: Warm well perfused; 2+ pitting edema Neuro: Alert and awake. Grossly nonfocal Results Labs CBC and Chem 7: 12/18/21 19:25 12/18/21 19:25 Labs: Laboratory Results - last 24 hr 12/18/21 12/18/21 12/18/21 19:25 19:25 19:25 MCV 82.3 MCH 28.4 MCHC 34.5 RDW 14.3 Plt Count 327 D MPV 8.9 L Immature Gran % (Auto) 0.6 H Neut % (Auto) 72.8 Lymph % (Auto) 13.3 L [place] % (Auto) 12.0 H Eos % (Auto) 0.9 Baso % (Auto) 0.4 Lymph # (Auto) 1.2 [place] # (Auto) 1.1 Eos # (Auto) 0.1 Baso # (Auto) 0.0 Abs Immat Gran (auto) 0.05 H Absolute Neuts (auto) 6.5 Absolute Nucleated RBC 0.000 Nucleated RBC % (auto) 0.0 PT 74.4 H INR 6.0 H* D-Dimer High Sensitivty 214 Anion Gap 19 Estim Creat Clear Calc 60.1 Estimated GFR > 60 Random Glucose 157 H Calcium 9.3 Total Bilirubin 1.1 H AST 20 ALT 15 Alkaline Phosphatase 60 Total Protein 7.2 Albumin 4.2 Lipase 63 Urine Color Urine Appearance Urine pH Ur Specific [place] Urine Protein Urine Glucose (UA) Urine Ketones Urine Blood Urine Nitrite Ur Leukocyte Esterase Urine Osmolality Ur Random Sodium Ur Random Potassium Ur Random Chloride COVID-19 (LENNIE) COVID-19 [employer] 12/18/21 12/18/21 12/18/21 23:47 23:47 23:47 MCV MCH MCHC RDW Plt Count MPV Immature Gran % (Auto) Neut % (Auto) Lymph % (Auto) [place] % (Auto) Eos % (Auto) Baso % (Auto) Lymph # (Auto) [place] # (Auto) Eos # (Auto) Baso # (Auto) Abs Immat Gran (auto) Absolute Neuts (auto) Absolute Nucleated RBC Nucleated RBC % (auto) PT INR D-Dimer High Sensitivty Anion Gap Estim Creat Clear Calc Estimated GFR Random Glucose Calcium Total Bilirubin AST ALT Alkaline Phosphatase Total Protein Albumin Lipase Urine Color Yellow Urine Appearance Clear Urine pH 6.5 Ur Specific [place] <= 1.005 Urine Protein Negative Urine Glucose (UA) Negative Urine Ketones 15 Urine Blood Negative Urine Nitrite Negative Ur Leukocyte Esterase Negative Urine Osmolality 162 L Ur Random Sodium 33.0 Ur Random Potassium 7.7 Ur Random Chloride 34.0 COVID-19 (LENNIE) COVID-[employer] 12/19/21 01:15 MCV MCH MCHC RDW Plt Count MPV Immature Gran % (Auto) Neut % (Auto) Lymph % (Auto) [place] % (Auto) Eos % (Auto) Baso % (Auto) Lymph # (Auto) [place] # (Auto) Eos # (Auto) Baso # (Auto) Abs Immat Gran (auto) Absolute Neuts (auto) Absolute Nucleated RBC Nucleated RBC % (auto) PT INR D-Dimer High Sensitivty Anion Gap Estim Creat Clear Calc Estimated GFR Random Glucose Calcium Total Bilirubin AST ALT Alkaline Phosphatase Total Protein Albumin Lipase Urine Color Urine Appearance Urine pH Ur Specific [place] Urine Protein Urine Glucose (UA) Urine Ketones Urine Blood Urine Nitrite Ur Leukocyte Esterase Urine Osmolality Ur Random Sodium Ur Random Potassium Ur Random Chloride COVID-19 (LENNIE) Negative COVID-19 Clin Com See Note Imaging Radiologist's Impressions: Impressions Abdomen Ultrasound 12/18/21 22:23 IMPRESSION: Cholelithiasis. Assessment and Plan (1) Acute hyponatremia: Status: Acute Plan 81-year-old female with a past medical history of hypertension, hyperlipidemia, diabetes, AFib on Coumadin, pulmonary hypertension, GERD, anemia, vertebral compression fractures, renal calculi, osteoporosis, presented to the hospital today with a chief complaint of generalized weakness. Generalized weakness: Likely in setting of dehydration/poor oral intake. UA negative PT/OT eventually Fall precautions Supratherapeutic INR: During her recent presentation on 12/13/2021 have patient's INR was noted to be 7.0. On presentation today INR is 6.0. Will continue to hold Coumadin Will trend INR Patient has bruising on her lateral side but no av obvious signs of bleeding. CT head was negative on 12/13 Cholelithiasis: Patient is afebrile, no leukocytosis, no inflammatory change on the gallbladder wall, normal CBD, normal LFTs. Pain control Bradycardia: Patient denies any lightheadedness or dizziness. Heart rate dipping on to 30s. Hold home metoprolol. Cardiology consult. Monitor on telemetry. Hyponatremia: Likely secondary to low solute state. Will give the patient on normal saline at 50 cc/hour. Follow-up BMP. Nephrology consult. History of AFib: Patient on Coumadin-> currently on hold secondary to supratherapeutic INR. History of diabetes: Insulin sliding scale History of hypertension: Patient's blood pressure currently on the normal side. Hold home amlodipine for now. DVT prophylaxis: Patient on Coumadin with supratherapeutic INR Code status: Full code Quality Stroke Does the patient have a stroke diagnosis?: No VTE Prior VTE?: No VTE Risk Level:: Medical - moderate - high VTE Device Contraindication: Treatment Not Indicated VTE Drug Contraindication: N/A - Med Ordered
--- NOTE | 2021-12-19 06:28 | PC.NURSE ---
Med rec completed using a list of recently filled prescriptions found in the pt's medical records.
[2021-12-19 06:41] LABS: MANUAL DIFF FLAG NO
[2021-12-19 06:46] LABS: Basophils Percent Auto 0.4 % (0-2); Eosinophils Absolute Auto 0.1 X10*3/uL (0.0-0.4); Eosinophils Percent Auto 1.5 % (0-4); Hematocrit 37.2 % (37.0-47.0); Hemoglobin 12.7 g/dl (12.0-16.0); Imm Gran Abs Auto 0.06 X10*3/uL (0.00-0.03); Imm Gran Pct Auto 0.6 % (0.0-0.4); Mean Corpuscular HGB Conc 34.1 g/dl (31.0-35.0); Mean Corpuscular Hemoglobin 28.4 pg (27.0-33.0); Mean Corpuscular Volume 83.2 fL (80.0-98.0); Mean Platelet Volume 9.1 fL (9.4-12.3); Monocytes Absolute Auto 1.2 X10*3/uL (0.1-1.2); Monocytes Percent Auto 12.5 % (2-11); Neutrophils Absolute Auto 7.2 x10*3/uL (2.0-8.3); Platelet Count 288 X10*3/uL (160-400); Red Blood Count 4.47 X10*6/uL (4.20-5.50); Red Cell Distribution Width 14.2 % (11.0-16.0); White Blood Count 9.5 X10*3/uL (4.8-10.8)
[2021-12-19 07:28] LABS: Glucose, Whole Blood 139 mg/dL (60-115)
[2021-12-19 07:34] LABS: Anion Gap 21 (12-20); Blood Urea Nitrogen 11 mg/dL (9-16); Calcium 8.7 mg/dL (8.4-10.2); Carbon Dioxide 19 mmol/L (22-29); Chloride 96 mmol/L (96-108); Creatinine Clr Calc Pharmacy 67.7; Estimated Glomerular Filt Rate > 60; Glucose Random 140 mg/dL (60-115); Potassium 4.5 mmol/L (3.3-5.1); Sodium 131 mmol/L (135-145)
--- NOTE | 2021-12-19 09:21 | P.CONCA_ITS ---
History of Present Illness History of Present Illness Date of Service: 12/19/21 Requesting physician: Eduardo Ogden Consult reason: other (Bradycardia) Chief complaint: Hyponatremia Narrative: I was consulted to see Aminah in cardiology consultation today for overnight noted bradycardia with heart rate in the 35 range. She was sleeping at that time. She has no obvious symptoms. In the past she says her metoprolol was reduced from 50 mg twice a day to 50 mg daily. She has no symptoms of lightheadedness or syncope. She denies any palpitation fast heart rate. She has known history of chronic atrial fibrillation follows with Dr. Callahan. Currently on warfarin therapy. In the past couple of weeks her INRs have been significantly elevated. She had a fall couple weeks ago and has bruising and also complains of back pain radiating up into the front. She has prior history of bilateral leg edema and was prescribed diuretics but then developed some shortness of breath related to it and she herself stopped it. She has never had any obvious diagnosis of heart failure. She does have history of hypertension. No history of known coronary artery disease. Last echocardiogram was August of 2020 which showed normal LV systolic function with severe left atrial enlargement with mild mitral regurgitation moderate pulmonary hypertension. She had myocardial perfusion imaging in May this year for chest pain which showed normal myocardial perfusion. At current time a main issue is bruising as well as feeling weak and is having pain in the back as well as radiating to the front in the sub costal area Review of Systems Constitutional: Constitutional: Reports no additional constitutional complaints Cardiovascular: Cardiovascular: Denies chest pain, Denies leg edema, Denies lightheadedness, Denies Loss of Consciousness and Denies palpitations Respiratory: Respiratory: Reports no additional respiratory complaints Gastrointestinal: Gastrointestinal: Reports no additional gastrointestinal complaints Musculoskeletal: Musculoskeletal: Reports no additional musculoskeletal complaints Neurologic: Reports system reviewed and no additional complaints, except as documented Endocrine: Endocrine: Reports no additional endocrine complaints and Denies palpitations Hematologic/Lymphatic: Hematologic/Lymphatic: Reports no additional hematologic/lymphatic complaints [facility] Past Medical History Medical History Atrophic vaginitis Compression deformity of vertebra Dyslipidemia Early satiety Essential hypertension Heartburn Microcytic anemia Non-rheumatic mitral regurgitation Osteoarthritis of knees, bilateral Osteopenia Permanent atrial fibrillation Pulmonary hypertension Renal cyst Right nephrolithiasis Type 2 diabetes mellitus with diabetic neuropathy, 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 Son No problems noted. Daughter No problems noted. Surgical History Surgical History History of hysterectomy History of lobectomy of lung History of lumbar discectomy History of total right knee replacement (TKR) Lumbar radiculopathy Social History Social History Housing: House Alcohol intake: never Patient Tobacco Use Status: Never used Tobacco e-Cigarette/Vaping Use: Never Used Advance Directives: No Advance Directives Information Provided: Yes service: No Current occupational status: retired Cognitive needs: No Hearing needs: Yes Vision needs: Yes Meds Allergies Allergy/AdvReac Type Severity Reaction Status Date / Time adhesive tape [Adhesive Tape] Allergy Mild CONTACT Verified 12/16/21 13:14 DERMATITIS cephalexin [CEPHALEXIN] Allergy Unknown SWELLING Verified 12/16/21 13:14 latex [Latex] Allergy Unknown RASH Verified 12/16/21 13:14 oxycodone [From PERCOCET] Allergy Unknown PER H&P Verified 12/16/21 13:14 Biaxin AdvReac Intermediate plapitation Verified 12/16/21 13:14 s bacitracin [From Cortisporin] AdvReac Mild EYE Verified 12/16/21 13:14 IRRITATION hydrocortisone AdvReac Mild EYE Verified 12/16/21 13:14 [From Cortisporin] IRRITATION neomycin [From Cortisporin] AdvReac Mild EYE Verified 12/16/21 13:14 IRRITATION flecainide [From Tambocor] AdvReac Unknown HEART Verified 12/16/21 13:14 RACING lisinopril [LISINOPRIL] AdvReac Unknown cough, Verified 12/16/21 13:14 nausea Sulfa (Sulfonamide AdvReac Unknown PALPITATION Verified 12/16/21 13:14 Antibiotics) S [SULFA(SULFONAMIDE ANTIBIOTICS)] Active Medications: Current Medications Acetaminophen (Acetaminophen 325 Mg Tablet) 650 mg PO Q6H PRN PRN Reason: Pain, Mild (Pain Scale 1-3) Last Admin: 12/19/21 05:07 Dose: 650 mg Dextrose (Dextrose 50 % 25 Gm/50 Ml Syringe) 25 gm IVPUSH Q15M PRN; Protocol PRN Reason: per Hypoglycemia Standing Ord. Glucose (Glucose Gel 15 Gm Gel..Gram.) 15 gm PO Q15M PRN; Protocol PRN Reason: per Hypoglycemia Standing Ord. Sodium Chloride (Ns) 1,000 mls @ 75 mls/hr IVCONT .[id number] ONE Stop: 12/19/21 13:48 Last Infusion: 12/19/21 05:10 Dose: 0 mls/hr Sodium Chloride (Ns) 1,000 mls @ 50 mls/hr IVCONT .Q20H TASHA Last Admin: 12/19/21 05:09 Dose: 50 mls/hr Insulin Human Lispro (Insulin Lispro 100 Unit/Ml 3 Ml Vial) 0 unit SUBCUT QIDACHS TASHA; Protocol Melatonin (Melatonin 3 Mg Tablet) 6 mg PO BEDTIME PRN PRN Reason: Insomnia Metoprolol Succinate (Metoprolol Succinate Er 50 Mg Tab.Er.24h) 50 mg PO DAILY [facility]; Protocol Non-Formulary Medication (Ferrous Fumarate [Ferrocite]) 324 mg PO DAILY [facility] Non-Formulary Medication (Rosuvastatin) 5 mg PO 3XW [facility] Senna (Sennosides 8.6 Mg Tablet) 17.2 mg PO BEDTIME PRN PRN Reason: Constipation Sodium Chloride (0.9 % Sodium Chloride Flush 3 Ml Syringe) 3 ml IVFLUSH QSHIFT [facility] Home Medications Medication Instructions Recorded Confirmed Last Taken Type amlodipine 5 mg tablet 5 mg PO DAILY 03/03/20 12/19/21 Unknown History spironolactone 25 mg tablet 1 tab PO DAILY 12/19/21 Unknown History Physical Exam Vital Signs: Vital Signs: Last Vital Signs Temp 98.2 F 12/18/21 23:44 Pulse 70 12/19/21 04:37 Resp 18 12/19/21 04:37 BP 128/62 12/18/21 23:44 Pulse Ox 96 12/19/21 04:37 O2 Del Method 12/19/21 04:37 BMI result Body Mass Index 29.0 Const: General: cooperative, comfortable, no acute distress, alert, awake and anxious Nutritional Appearance: overweight Orientation/consciousness: patient oriented x3 HEENT: Head: Yes normocephalic and Yes atraumatic Neck: Neck: Yes trachea midline, Yes supple and Yes no JVD Resp: Effort & Inspection: decreased respiratory effort Auscultation: clear to auscultation bilaterally Cardio: Jugular venous distension: no JVD Rate: regular rate Rhythm: abnormal rhythm irregularly irregular Heart sounds: S1 normal heart sound present, S2 normal heart sound present, no click, no gallops, no murmurs and no rubs GI: Auscultation: normal bowel sounds Skin: General skin exam: no rashes or lesions noted and ecchymosis Neuro: General: patient oriented x3 and no focal motor deficits Extrem: General: Yes pedal edema and Yes venous stasis dermatitis Objective Labs and Meds Result diagrams: 12/19/21 06:37 12/19/21 06:37 Lab results: Laboratory Results - last 24 hr 12/18/21 12/18/21 12/18/21 19:25 19:25 19:25 WBC 8.9 RBC 4.62 Hgb 13.1 Hct 38.0 MCV 82.3 MCH 28.4 MCHC 34.5 RDW 14.3 Plt Count 327 D MPV 8.9 L Immature Gran % (Auto) 0.6 H Neut % (Auto) 72.8 Lymph % (Auto) 13.3 L [place] % (Auto) 12.0 H Eos % (Auto) 0.9 Baso % (Auto) 0.4 Lymph # (Auto) 1.2 [place] # (Auto) 1.1 Eos # (Auto) 0.1 Baso # (Auto) 0.0 Abs Immat Gran (auto) 0.05 H Absolute Neuts (auto) 6.5 Absolute Nucleated RBC 0.000 Nucleated RBC % (auto) 0.0 PT 74.4 H INR 6.0 H* D-Dimer High Sensitivty 214 Sodium 125 L Potassium 5.0 Chloride 89 L Carbon Dioxide 22 Anion Gap 19 BUN 14 Creatinine 0.71 Estim Creat Clear Calc 60.1 Estimated GFR > 60 POC Glucose Random Glucose 157 H Calcium 9.3 Total Bilirubin 1.1 H AST 20 ALT 15 Alkaline Phosphatase 60 Total Protein 7.2 Albumin 4.2 Lipase 63 Urine Color Urine Appearance Urine pH Ur Specific [place] Urine Protein Urine Glucose (UA) Urine Ketones Urine Blood Urine Nitrite Ur Leukocyte Esterase Urine Osmolality Ur Random Sodium Ur Random Potassium Ur Random Chloride COVID-19 (LENNIE) COVID-19 [employer] 12/18/21 12/18/21 12/18/21 23:47 23:47 23:47 WBC RBC Hgb Hct MCV MCH MCHC RDW Plt Count MPV Immature Gran % (Auto) Neut % (Auto) Lymph % (Auto) [place] % (Auto) Eos % (Auto) Baso % (Auto) Lymph # (Auto) [place] # (Auto) Eos # (Auto) Baso # (Auto) Abs Immat Gran (auto) Absolute Neuts (auto) Absolute Nucleated RBC Nucleated RBC % (auto) PT INR D-Dimer High Sensitivty Sodium Potassium Chloride Carbon Dioxide Anion Gap BUN Creatinine Estim Creat Clear Calc Estimated GFR POC Glucose Random Glucose Calcium Total Bilirubin AST ALT Alkaline Phosphatase Total Protein Albumin Lipase Urine Color Yellow Urine Appearance Clear Urine pH 6.5 Ur Specific [place] <= 1.005 Urine Protein Negative Urine Glucose (UA) Negative Urine Ketones 15 Urine Blood Negative Urine Nitrite Negative Ur Leukocyte Esterase Negative Urine Osmolality 162 L Ur Random Sodium 33.0 Ur Random Potassium 7.7 Ur Random Chloride 34.0 COVID-19 (LENNIE) COVID-19 Infopia 12/19/21 12/19/21 12/19/21 01:15 06:37 06:37 WBC 9.5 RBC 4.47 Hgb 12.7 Hct 37.2 MCV 83.2 MCH 28.4 MCHC 34.1 RDW 14.2 Plt Count 288 MPV 9.1 L Immature Gran % (Auto) 0.6 H Neut % (Auto) 75.0 H Lymph % (Auto) 10.0 L [place] % (Auto) 12.5 H Eos % (Auto) 1.5 Baso % (Auto) 0.4 Lymph # (Auto) 1.0 L [place] # (Auto) 1.2 Eos # (Auto) 0.1 Baso # (Auto) 0.0 Abs Immat Gran (auto) 0.06 H Absolute Neuts (auto) 7.2 Absolute Nucleated RBC 0.000 Nucleated RBC % (auto) 0.0 PT INR D-Dimer High Sensitivty Sodium 131 L Potassium 4.5 Chloride 96 Carbon Dioxide 19 L Anion Gap 21 H BUN 11 Creatinine 0.63 Estim Creat Clear Calc 67.7 Estimated GFR > 60 POC Glucose Random Glucose 140 H Calcium 8.7 D Total Bilirubin AST ALT Alkaline Phosphatase Total Protein Albumin Lipase Urine Color Urine Appearance Urine pH Ur Specific [place] Urine Protein Urine Glucose (UA) Urine Ketones Urine Blood Urine Nitrite Ur Leukocyte Esterase Urine Osmolality Ur Random Sodium Ur Random Potassium Ur Random Chloride COVID-19 (LENNIE) Negative COVID-19 Clin Com See Note 12/19/21 07:24 WBC RBC Hgb Hct MCV MCH MCHC RDW Plt Count MPV Immature Gran % (Auto) Neut % (Auto) Lymph % (Auto) [place] % (Auto) Eos % (Auto) Baso % (Auto) Lymph # (Auto) [place] # (Auto) Eos # (Auto) Baso # (Auto) Abs Immat Gran (auto) Absolute Neuts (auto) Absolute Nucleated RBC Nucleated RBC % (auto) PT INR D-Dimer High Sensitivty Sodium Potassium Chloride Carbon Dioxide Anion Gap BUN Creatinine Estim Creat Clear Calc Estimated GFR POC Glucose 139 H Random Glucose Calcium Total Bilirubin AST ALT Alkaline Phosphatase Total Protein Albumin Lipase Urine Color Urine Appearance Urine pH Ur Specific [place] Urine Protein Urine Glucose (UA) Urine Ketones Urine Blood Urine Nitrite Ur Leukocyte Esterase Urine Osmolality Ur Random Sodium Ur Random Potassium Ur Random Chloride COVID-19 (LENNIE) COVID-19 Clin Com Imaging Radiologist's impression: Impressions Abdomen Ultrasound 12/18/21 22:23 IMPRESSION: Cholelithiasis. Assessment and Plan (1) Bradycardia: Status: Acute Asymptomatic bradycardia and is elderly woman mostly during sleep time. Most likely due to over-correction of heart rate. Will reduce metoprolol to 25 mg d aily. There is no indication for pacemaker. Can be follow-up as outpatient. Will suggest a Holter monitor in 2 weeks and follow up in the clinic in 4 weeks time. (2) Permanent atrial fibrillation: Status: Acute Permanent rate control atrial fibrillation and failed rhythm control approach in the past with severe left atrial enlargement. Continue rate control approach. Currently not in any signs or symptoms of heart failure. Continue aggressive blood pressure control. Continue current therapy. Has had significant INR elev ation recently consider switching to normal oral anticoagulant agent such as Eliquis 5 mg b.i.d.. Patient is worried about the cost, can be discussed with case management. Will follow up in the clinic in 4 weeks time. Will sign of the case at this point time. Thank you for allowing me to partake in her care Procedures Date of Service Date of Service: 12/19/21
[2021-12-19 09:52] VITALS: BP 120/66; PULSE 64; RESP 18; O2SAT 95
--- NOTE | 2021-12-19 10:22 | PC.NURSE ---
Pt continues to have abd/back pain with any movement. Hospitalist contacted for possible PRN
--- NOTE | 2021-12-19 10:37 | PHA.MEDREC ---
Pharmacy Consult ? Medication Reconciliation Pharmacy has completed the medication reconciliation. Pt with list at bedside
[2021-12-19 11:05] LABS: Anion Gap 19 (12-20); Carbon Dioxide 19 mmol/L (22-29); Chloride 95 mmol/L (96-108); Potassium 4.4 mmol/L (3.3-5.1); Sodium 129 mmol/L (135-145)
[2021-12-19] MEDS: Metoprolol Succinate ER 50 MG TAB.ER.24H PO (11:16)
[2021-12-19] MEDS: Ferrous Sulfate 324 MG TABLET.DR PO (11:16)
--- NOTE | 2021-12-19 11:54 | MHC.CM.PN ---
Met with patient and , Gonzalo in regards to discharge planning. Patient is very hard of hearing and finds it helpful to read lips. Patient lives with , ambulates with a walker and had no services prior to coming to the hospital. PCp verified. Patient has a HCP at home and will attempt to obtain a copy. IMM explained and signed. Patient is vaxxed and boosted x2. Gonzalo will transport patient home when medically stable. Continue to monitor for d/c needs.
[2021-12-19 12:57] VITALS: BP 142/57; PULSE 66; RESP 16; TEMP 36.8; O2SAT 96
[2021-12-19] MEDS: amLODIPine Besylate 5 MG TABLET PO (13:00)
[2021-12-19] MEDS: Spironolactone 25 MG TABLET PO (13:00)
[2021-12-19] MEDS: metFORMIN HCl 1,000 MG TABLET 1000 MG PO ×2 (13:00→22:30)
[2021-12-19] MEDS: Morphine Sulfate 2 MG/ML CARTRIDGE IVPUSH ×2 (13:17→18:09)
[2021-12-19 13:26] LABS: Glucose, Whole Blood 193 mg/dL (60-115)
--- NOTE | 2021-12-19 14:13 | PM.EVENT ---
Event Note Date of Service: 12/19/21 Event Note: Patient seen and examined. Agree with assessment plan as outlined. Exam unchanged. Plan as ordered
[2021-12-19 16:16] VITALS: BP 122/52; PULSE 71; RESP 18; TEMP 36.4; O2SAT 91
[2021-12-19 18:02] LABS: Glucose, Whole Blood 252 mg/dL (60-115)
[2021-12-19] MEDS: 0.9 % Sodium Chloride Flush 3 ML SYRINGE IVFLUSH (18:10)
[2021-12-19] MEDS: Magnesium Oxide 400 MG TABLET PO (18:10)
[2021-12-19 21:51] LABS: Glucose, Whole Blood 198 mg/dL (60-115)
--- NOTE | 2021-12-19 22:19 | CONS_ITS ---
DATE OF SERVICE: 12/19/2021 REASON FOR CONSULTATION: I was asked to see patient to assist in evaluation and management of patient's hyponatremia with serum sodium 125, it is now up to 131 this morning. HISTORY OF PRESENT ILLNESS: The patient is an 81-year-old with a history of hypertension, hyperlipidemia, diabetes, AFib on Coumadin, pulmonary hypertension, GERD, anemia, vertebral compression fracture, history of kidney stones, and osteoporosis, who presented to the hospital with some generalized weakness and some pain. The patient is a poor historian, but it sounds like she may have fallen as she has some left-sided pain that has been ongoing for the past several days. She denies any nausea, vomiting, fever, sweats, or chills. She denies taking thiazide-type diuretic. She has been on Lasix intermittently. She also tells me that she has been told to drink a lot of fluids. Since being admitted, she has been given some normal saline. As mentioned, her serum sodium has increased. PAST MEDICAL HISTORY: As noted above. MEDICATIONS ON ADMISSION: Noted in the admitting notes and again do not list any thiazide diuretic nor any SSRIs. ALLERGIES: SHE HAS MULTIPLE DRUG ALLERGIES NOTED IN THE EHR. CURRENT MEDICATIONS: Noted in the MAR. SOCIAL HISTORY: She is a nonsmoker, nondrinker. No illicit drug use. REVIEW OF SYSTEMS: As noted above with left-sided flank, abdominal, and chest wall pain. PHYSICAL EXAMINATION: VITAL SIGNS: Blood pressure 120/60 with a heart rate in the 60s. She is on room air. HEAD: Atraumatic and normocephalic. NECK: Supple. Mucous membranes moist. LUNGS: Clear. CARDIAC: Regular rate and rhythm. ABDOMEN: Soft, nontender. EXTREMITIES: Show trace edema. LABORATORY DATA: Sodium 131, potassium 4.5, chloride 96, bicarb 19, BUN 11, creatinine 0.6, and blood sugar 140. From last night at 7:25 p.m., sodium was 125, at that time her blood sugar was 157. Her serum sodium on 12/13/2021 was 133. IMPRESSION: AN 81-YEAR-OLD WITH EUVOLEMIC HYPONATREMIA WITH A SERUM SODIUM OF 125, NOW TO 131. THE PATIENT HAD URINE OSMOLALITY 162 AND URINE SODIUM OF 33. Euvolemic hyponatremia. Most likely, this reflects a combination of low solute intake and perhaps intermittent episodes of increased ADH release. The fact that her serum sodium has improved with normal saline suggests that there may have been a component of hypovolemic hyponatremia. Pain itself can cause increased ADH release and may be playing a role with intermittent ADH release. Her serum sodium is correcting a bit too fast, so we will check repeat serum sodium and if it continues to increase greater than 6 to 8 mEq per 24 hours, we will still give her some hypotonic fluids. We will discontinue normal saline. Follow urine output and renal function, but most importantly track her serum sodium. We will check a TSH and cortisol level, although it is unlikely this is adrenal insufficiency or hypothyroidism. We will follow the patient with the team. MD MARCELINO Nash/ACACIA / [phone]
[2021-12-19] MEDS: Insulin Lispro 100 UNIT/ML 3 ML VIAL SUBCUT (22:30)
[2021-12-19] MEDS: Insulin Glargine,Hum.rec.anlog 100 UNIT/ML 10 ML VIAL 20 UNIT SUBCUT (22:31)
--- NOTE | 2021-12-19 23:20 | PC.NURSE ---
Moncho, ED RN called nurse to nurse report to overflow unit, spoke to Eladia. Patient to be transferred to overflow unit bed 5.
[2021-12-20] VITALS (8 sets, daily range): BP systolic 114–173; BP diastolic 56–87; PULSE 51–78; RESP 16–23; TEMP 36.2–37.1; O2SAT 94–99
--- NOTE | 2021-12-20 01:52 | PC.NURSE ---
assumed care of patient at this time ,patient is sleeping .
[2021-12-20] MEDS: 0.9 % Sodium Chloride Flush 3 ML SYRINGE IVFLUSH ×4 (02:53→22:25)
[2021-12-20] MEDS: Morphine Sulfate 2 MG/ML CARTRIDGE IVPUSH ×3 (03:44→22:25)
--- NOTE | 2021-12-20 06:30 | PC.NURSE ---
Addendum entered by Jessica Barlow RN 12/20/21 06:35: with good with good effect. Will continue to monitor. Original Note: Patient c/o left hip pain. 12/26 , Morphine 2 mg IV administered 396u
[2021-12-20 07:06] LABS: Glucose, Whole Blood 155 mg/dL (60-115)
[2021-12-20] MEDS: Insulin Lispro 100 UNIT/ML 3 ML VIAL SUBCUT ×3 (07:24→18:14)
[2021-12-20] MEDS: amLODIPine Besylate 5 MG TABLET PO (08:06)
[2021-12-20] MEDS: Ferrous Sulfate 324 MG TABLET.DR PO (08:06)
[2021-12-20] MEDS: Metoprolol Succinate ER 50 MG TAB.ER.24H PO (08:06)
[2021-12-20] MEDS: Spironolactone 25 MG TABLET PO (08:06)
[2021-12-20] MEDS: metFORMIN HCl 1,000 MG TABLET 1000 MG PO ×2 (08:06→22:24)
[2021-12-20 09:59] LABS: Prothrombin Time 80.1 SEC (10.0-13.1)
[2021-12-20 10:02] LABS: INTERNATIONAL NORM RATIO 6.4 (0.9-1.1)
[2021-12-20 10:32] LABS: Anion Gap 20 (12-20); Carbon Dioxide 23 mmol/L (22-29); Chloride 96 mmol/L (96-108); Potassium 4.6 mmol/L (3.3-5.1); Sodium 134 mmol/L (135-145)
[2021-12-20 12:29] LABS: Glucose, Whole Blood 180 mg/dL (60-115)
--- NOTE | 2021-12-20 14:14 | HO.PM.IMPN ---
Subjective Subjective Date of Service: 12/20/21 Interval History: No acute issues overnight. Back pain controlled with current therapies Review of Systems Denies chest pain Denies shortness of breath Denies nausea vomiting diarrhea Admits to back pain worse with movement Physical Exam Vital Signs: Vital Signs: Last Vital Signs Temp 98.1 F 12/20/21 11:32 Pulse 61 12/20/21 11:32 Resp 23 H 12/20/21 11:32 BP 143/59 H 12/20/21 11:32 Pulse Ox 96 12/20/21 11:32 O2 Del Method 12/20/21 11:32 BMI result Body Mass Index 29.0 Const: Other: Awake alert oriented x3 no acute distress Resp: Other: Clear to auscultation bilaterally no rales rhonchi or wheezes Cardio: Other: No S4; positive S1-S2; no S3 murmurs rubs or gallops Back/Spine/Pelvis: Other: Tender mid back over thoracic spinal processes Skin: Other: Large hematoma across lower lumbar upper sacrum Extrem: Other: No edema bilaterally Objective Data Active Medications Acetaminophen (Acetaminophen 325 Mg Tablet) 650 mg PO Q6H PRN PRN Reason: Pain, Mild (Pain Scale 1-3) Last Admin: 12/19/21 05:07 Dose: 650 mg Documented By: REGLA Amlodipine Besylate (Amlodipine Besylate 5 Mg Tablet) 5 mg PO DAILY [facility]; Protocol Last Admin: 12/20/21 08:06 Dose: 5 mg Documented By: SHADY Atorvastatin Calcium (Atorvastatin Calcium 20 Mg Tablet) 20 mg PO MoWeFr [facility] Last Admin: 12/19/21 13:00 Dose: Not Given Documented By: BASILIA Non-Admin Reason: Med Not Available Dextrose (Dextrose 50 % 25 Gm/50 Ml Syringe) 25 gm IVPUSH Q15M PRN; Protocol PRN Reason: per Hypoglycemia Standing Ord. Ferrous Sulfate (Ferrous Sulfate 324 Mg Tablet.) 324 mg PO DAILY [facility] Last Admin: 12/20/21 08:06 Dose: 324 mg Documented By: SHADY Glucose (Glucose Gel 15 Gm Gel..Gram.) 15 gm PO Q15M PRN; Protocol PRN Reason: per Hypoglycemia Standing Ord. Insulin Glargine (Insulin Glargine,Hum.Rec.Anlog 100 Unit/Ml 10 Ml Vial) 20 unit SUBCUT BEDTIME [facility] Last Admin: 12/19/21 22:31 Dose: 20 unit Documented By: MICHELLE Insulin Human Lispro (Insulin Lispro 100 Unit/Ml 3 Ml Vial) 0 unit SUBCUT QIDACHS [facility]; Protocol Last Admin: 12/20/21 13:01 Dose: 2 unit Documented By: SHADY Magnesium Oxide (Magnesium Oxide 400 Mg Tablet) 400 mg PO DAILY@1700 [facility] Last Admin: 12/19/21 18:10 Dose: 400 mg Documented By: BASILIA Melatonin (Melatonin 3 Mg Tablet) 6 mg PO BEDTIME PRN PRN Reason: Insomnia Metformin HCl (Metformin Hcl 1,000 Mg Tablet) 1,000 mg PO BID [facility] Last Admin: 12/20/21 08:06 Dose: 1,000 mg Documented By: SHADY Metoprolol Succinate (Metoprolol Succinate Er 50 Mg Tab.Er.24h) 50 mg PO DAILY [facility]; Protocol Last Admin: 12/20/21 08:06 Dose: 50 mg Documented By: SHADY Morphine Sulfate (Morphine Sulfate 2 Mg/Ml Cartridge) 2 mg IVPUSH Q2H PRN; Protocol PRN Reason: Pain, Severe (Pain Scale 7-10) Last Admin: 12/20/21 08:07 Dose: 2 mg Documented By: SHADY Senna (Sennosides 8.6 Mg Tablet) 17.2 mg PO BEDTIME PRN PRN Reason: Constipation Sodium Chloride (0.9 % Sodium Chloride Flush 3 Ml Syringe) 3 ml IVFLUSH QSHIFT [facility] Last Admin: 12/20/21 08:11 Dose: 3 ml Documented By: SHADY Spironolactone (Spironolactone 25 Mg Tablet) 25 mg PO DAILY [facility]; Protocol Last Admin: 12/20/21 08:06 Dose: 25 mg Documented By: SHADY Labs CBC & Chem 7: 12/19/21 06:37 12/20/21 10:04 Labs: Laboratory Results - last 24 hr 12/19/21 12/19/21 12/20/21 17:58 21:48 06:57 PT INR Anion Gap POC Glucose 252 H 198 H 155 H 12/20/21 12/20/21 12/20/21 09:02 10:04 12:21 PT 80.1 H INR 6.4 H* Anion Gap 20 POC Glucose 180 H Assessment and Plan (1) Acute hyponatremia: Status: Acute (2) Compression deformity of vertebra: Status: Acute (3) Type 2 diabetes mellitus with kidney complication, with long-term current use of insulin: Status: Acute Plan 81-year-old female with a past medical history of hypertension, hyperlipidemia, diabetes, AFib on Coumadin, pulmonary hypertension, GERD, anemia, vertebral compression fractures, renal calculi, osteoporosis, presented to the hospital today with a chief complaint of generalized weakness. 1. Thoracic compression fractures -will consult IR to see possibility of vertebroplasty -physical therapy consult -pain management 2. Hyperprothrombinemia -small dose of vitamin K (2.5 mg) -follow INR 3.Bradycardia: -resolved with adjustment of beta blockade -follow on telemetry 4.Hyponatremia: -resolving with volume repletion -follow renals/divalents 5.Chronic AFib -rate control -adjust beta blockade is indicated. 6.DMII - Insulin sliding scale -ADA diet 7.Hypertension -acceptable control on current therapies DVT prophylaxis: Patient on Coumadin with supratherapeutic INR Code status: Full code Requires ongoing hospitalization to resolve hyponatremia with IV volume repletion Quality Stroke Does the patient have a stroke diagnosis?: No VTE Prior VTE?: No VTE Risk Level:: Medical - moderate - high VTE Device Contraindication: Treatment Not Indicated VTE Drug Contraindication: N/A - Med Ordered
[2021-12-20 16:31] LABS: Glucose, Whole Blood 234 mg/dL (60-115)
[2021-12-20] MEDS: Magnesium Oxide 400 MG TABLET PO (18:14)
[2021-12-20 21:58] LABS: Glucose, Whole Blood 213 mg/dL (60-115)
[2021-12-20 22:22] LABS: Glucose, Whole Blood 135 mg/dL (60-115)
[2021-12-20] MEDS: Insulin Glargine,Hum.rec.anlog 100 UNIT/ML 10 ML VIAL 20 UNIT SUBCUT (22:24)
[2021-12-21] VITALS (7 sets, daily range): BP systolic 131–146; BP diastolic 55–64; PULSE 64–68; RESP 15–18; TEMP 36.7–37.7; O2SAT 92–98
[2021-12-21] MEDS: Morphine Sulfate 2 MG/ML CARTRIDGE IVPUSH ×5 (02:24→23:45)
[2021-12-21 07:44] LABS: Glucose, Whole Blood 145 mg/dL (60-115)
[2021-12-21] MEDS: Ferrous Sulfate 324 MG TABLET.DR PO (08:08)
[2021-12-21] MEDS: metFORMIN HCl 1,000 MG TABLET 1000 MG PO ×2 (08:08→20:08)
[2021-12-21] MEDS: Spironolactone 25 MG TABLET PO (08:09)
[2021-12-21] MEDS: amLODIPine Besylate 5 MG TABLET PO (08:09)
[2021-12-21 08:33] LABS: MANUAL DIFF FLAG NO
[2021-12-21 08:34] LABS: Basophils Absolute Auto 0.1 X10*3/uL (0.0-0.2); Basophils Percent Auto 0.6 % (0-2); Eosinophils Absolute Auto 0.4 X10*3/uL (0.0-0.4); Hematocrit 37.2 % (37.0-47.0); Hemoglobin 12.5 g/dl (12.0-16.0); Imm Gran Pct Auto 1.1 % (0.0-0.4); Lymphocytes Absolute Auto 1.4 X10*3/uL (1.2-4.9); Lymphocytes Percent Auto 14.7 % (20-40); Mean Corpuscular HGB Conc 33.6 g/dl (31.0-35.0); Mean Corpuscular Hemoglobin 28.5 pg (27.0-33.0); Mean Corpuscular Volume 84.9 fL (80.0-98.0); Mean Platelet Volume 8.6 fL (9.4-12.3); Monocytes Percent Auto 10.3 % (2-11); Neutrophils Absolute Auto 6.4 x10*3/uL (2.0-8.3); Neutrophils Percent Auto 69.3 % (45-73); Platelet Count 298 X10*3/uL (160-400); Red Blood Count 4.38 X10*6/uL (4.20-5.50); Red Cell Distribution Width 14.7 % (11.0-16.0); White Blood Count 9.2 X10*3/uL (4.8-10.8)
[2021-12-21 08:41] LABS: INTERNATIONAL NORM RATIO 3.2 (0.9-1.1); Prothrombin Time 38.1 SEC (10.0-13.1)
[2021-12-21 08:52] LABS: Alanine Aminotransferase 13 U/L (0-31); Albumin Level 3.6 g/dL (3.5-5.0); Alkaline Phosphatase 58 U/L (39-117); Anion Gap 16 (12-20); Aspartate Amino Transferase 15 U/L (5-31); Bilirubin Total 1.2 mg/dL (0.0-1.0); Blood Urea Nitrogen 13 mg/dL (9-16); Calcium 9.1 mg/dL (8.4-10.2); Carbon Dioxide 27 mmol/L (22-29); Chloride 97 mmol/L (96-108); Creatinine Clr Calc Pharmacy 60.9; Estimated Glomerular Filt Rate > 60; Glucose Fasting 177 mg/dL (60-99); Potassium 5.2 mmol/L (3.3-5.1); Sodium 135 mmol/L (135-145); Total Protein 6.3 g/dL (6.5-8.0)
[2021-12-21 11:16] LABS: Glucose, Whole Blood 251 mg/dL (60-115)
[2021-12-21] MEDS: Insulin Lispro 100 UNIT/ML 3 ML VIAL SUBCUT ×3 (11:45→20:09)
[2021-12-21] MEDS: Atorvastatin Calcium 20 MG TABLET PO (11:46)
[2021-12-21] MEDS: 0.9 % Sodium Chloride Flush 3 ML SYRINGE IVFLUSH ×2 (11:47→20:09)
--- NOTE | 2021-12-21 15:06 | MHC.CM.PN ---
per rounds pt to have pulmonary consuklt to see if she can decanulated
--- NOTE | 2021-12-21 15:32 | P.PNIM_ITS ---
Subjective Subjective Date of Service: 12/21/21 Interval History: No acute issues overnight. Review of Systems Denies chest pain Denies shortness of breath Denies nausea vomiting diarrhea Admits to back pain worse with movement Physical Exam Vital Signs: Vital Signs: Last Vital Signs Temp 98.6 F 12/21/21 11:02 Pulse 68 12/21/21 11:02 Resp 18 12/21/21 11:02 BP 141/60 H 12/21/21 11:02 Pulse Ox 94 12/21/21 11:02 O2 Del Method 12/21/21 11:02 O2 Flow Rate 1 12/21/21 07:16 BMI result Body Mass Index 29.0 Const: Other: Awake alert oriented x3 no acute distress Resp: Other: Clear to auscultation bilaterally no rales rhonchi or wheezes Cardio: Other: No S4; positive S1-S2; no S3 murmurs rubs or gallops Back/Spine/Pelvis: Other: Tender mid back over thoracic spinal processes Skin: Other: Large hematoma across lower lumbar upper sacrum Extrem: Other: No edema bilaterally Objective Data Active Medications Acetaminophen (Acetaminophen 325 Mg Tablet) 650 mg PO Q6H PRN PRN Reason: Pain, Mild (Pain Scale 1-3) Last Admin: 12/19/21 05:07 Dose: 650 mg Documented By: REGLA Amlodipine Besylate (Amlodipine Besylate 5 Mg Tablet) 5 mg PO DAILY [facility]; Protocol Last Admin: 12/21/21 08:09 Dose: 5 mg Documented By: LINO Atorvastatin Calcium (Atorvastatin Calcium 20 Mg Tablet) 20 mg PO MoWeFr [facility] Last Admin: 12/21/21 11:46 Dose: 20 mg Documented By: LINO Dextrose (Dextrose 50 % 25 Gm/50 Ml Syringe) 25 gm IVPUSH Q15M PRN; Protocol PRN Reason: per Hypoglycemia Standing Ord. Ferrous Sulfate (Ferrous Sulfate 324 Mg Tablet.) 324 mg PO DAILY [facility] Last Admin: 12/21/21 08:08 Dose: 324 mg Documented By: LINO Glucose (Glucose Gel 15 Gm Gel..Gram.) 15 gm PO Q15M PRN; Protocol PRN Reason: per Hypoglycemia Standing Ord. Insulin Glargine (Insulin Glargine,Hum.Rec.Anlog 100 Unit/Ml 10 Ml Vial) 20 unit SUBCUT BEDTIME [facility] Last Admin: 12/20/21 22:24 Dose: 20 unit Documented By: MIS Insulin Human Lispro (Insulin Lispro 100 Unit/Ml 3 Ml Vial) 0 unit SUBCUT QIDACHS [facility]; Protocol Last Admin: 12/21/21 11:45 Dose: 6 unit Documented By: LINO Magnesium Oxide (Magnesium Oxide 400 Mg Tablet) 400 mg PO DAILY@1700 [facility] Last Admin: 12/20/21 18:14 Dose: 400 mg Documented By: DIAZDEM Melatonin (Melatonin 3 Mg Tablet) 6 mg PO BEDTIME PRN PRN Reason: Insomnia Metformin HCl (Metformin Hcl 1,000 Mg Tablet) 1,000 mg PO BID [facility] Last Admin: 12/21/21 08:08 Dose: 1,000 mg Documented By: LINO Metoprolol Succinate (Metoprolol Succinate Er 50 Mg Tab.Er.24h) 50 mg PO DAILY [facility]; Protocol Last Admin: 12/21/21 08:32 Dose: Not Given Documented By: LINO Non-Admin Reason: Decreased Heart Rate Morphine Sulfate (Morphine Sulfate 2 Mg/Ml Cartridge) 2 mg IVPUSH Q2H PRN; Prot ocol PRN Reason: Pain, Severe (Pain Scale 7-10) Last Admin: 12/21/21 08:09 Dose: 2 mg Documented By: LINO Senna (Sennosides 8.6 Mg Tablet) 17.2 mg PO BEDTIME PRN PRN Reason: Constipation Sodium Chloride (0.9 % Sodium Chloride Flush 3 Ml Syringe) 3 ml IVFLUSH QSHIFT [facility] Last Admin: 12/21/21 11:47 Dose: 3 ml Documented By: LINO Spironolactone (Spironolactone 25 Mg Tablet) 25 mg PO DAILY [facility]; Protocol Last Admin: 12/21/21 08:09 Dose: 25 mg Documented By: LINO Labs CBC & Chem 7: 12/21/21 08:06 12/21/21 08:06 Labs: Laboratory Results - last 24 hr 12/20/21 12/20/21 12/20/21 16:08 19:31 22:18 MCV MCH MCHC RDW Plt Count MPV Immature Gran % (Auto) Neut % (Auto) Lymph % (Auto) Dundy % (Auto) Eos % (Auto) Baso % (Auto) Lymph # (Auto) Dundy # (Auto) Eos # (Auto) Baso # (Auto) Abs Immat Gran (auto) Absolute Neuts (auto) Absolute Nucleated RBC Nucleated RBC % (auto) PT INR Anion Gap Estim Creat Clear Calc Estimated GFR POC Glucose 234 H 213 H 135 H Fasting Glucose Calcium Total Bilirubin AST ALT Alkaline Phosphatase Total Protein Albumin 12/21/21 12/21/21 12/21/21 07:21 08:06 08:06 MCV 84.9 MCH 28.5 MCHC 33.6 RDW 14.7 Plt Count 298 MPV 8.6 L Immature Gran % (Auto) 1.1 H Neut % (Auto) 69.3 Lymph % (Auto) 14.7 L Dundy % (Auto) 10.3 Eos % (Auto) 4.0 Baso % (Auto) 0.6 Lymph # (Auto) 1.4 Dundy # (Auto) 1.0 Eos # (Auto) 0.4 Baso # (Auto) 0.1 Abs Immat Gran (auto) 0.10 H Absolute Neuts (auto) 6.4 Absolute Nucleated RBC 0.000 Nucleated RBC % (auto) 0.0 PT 38.1 H INR 3.2 H D Anion Gap Estim Creat Clear Calc Estimated GFR POC Glucose 145 H Fasting Glucose Calcium Total Bilirubin AST ALT Alkaline Phosphatase Total Protein Albumin 12/21/21 12/21/21 08:06 11:04 MCV MCH MCHC RDW Plt Count MPV Immature Gran % (Auto) Neut % (Auto) Lymph % (Auto) Dundy % (Auto) Eos % (Auto) Baso % (Auto) Lymph # (Auto) Dundy # (Auto) Eos # (Auto) Baso # (Auto) Abs Immat Gran (auto) Absolute Neuts (auto) Absolute Nucleated RBC Nucleated RBC % (auto) PT INR Anion Gap 16 Estim Creat Clear Calc 60.9 Estimated GFR > 60 POC Glucose 251 H Fasting Glucose 177 H Calcium 9.1 Total Bilirubin 1.2 H AST 15 ALT 13 Alkaline Phosphatase 58 Total Protein 6.3 L Albumin 3.6 Assessment and Plan (1) Acute hyponatremia: Status: Acute (2) Type 2 diabetes mellitus with kidney complication, with long-term current use of insulin: Status: Acute Plan 81-year-old female with a past medical history of hypertension, hyperlipidemia, diabetes, AFib on Coumadin, pulmonary hypertension, GERD, anemia, vertebral compression fractures, renal calculi, osteoporosis, presented to the hospital today with a chief complaint of generalized weakness. 1. Thoracic compression fractures -no indication per IR for vertebroplasty -physical therapy recommends short-term rehab. . . Patient agreeable -pain management 2. Hyperprothrombinemia -small dose of vitamin K (2.5 mg)... Iron are 3.2 -follow INR 3.Hyponatremia: -resolving with volume repletion -follow renals/divalents 4.Chronic AFib -rate control -adjust beta blockade is indicated. 5.DMII - Insulin sliding scale -ADA diet 6.Hypertension -acceptable control on current therapies DVT prophylaxis: Patient on Coumadin with supratherapeutic INR Code status: Full code Requires ongoing hospitalization to resolve hyponatremia with IV volume repletion Quality Stroke Does the patient have a stroke diagnosis?: No VTE Prior VTE?: No VTE Risk Level:: Medical - moderate - high VTE Device Contraindication: Treatment Not Indicated VTE Drug Contraindication: N/A - Med Ordered
--- NOTE | 2021-12-21 15:57 | PC.NURSE ---
report received from overnight RN, pt a+o, [place], c/o pain in back. 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 Pt was on 1L o2 satting high 90s, trialed off o2, pt desats to 89-93%, 1L o2 NC reapplied. Call hassan within reach, bed alarm in place. safety precautions taken.
[2021-12-21 16:13] LABS: Glucose, Whole Blood 171 mg/dL (60-115)
[2021-12-21] MEDS: Magnesium Oxide 400 MG TABLET PO (17:30)
[2021-12-21 20:00] LABS: Glucose, Whole Blood 240 mg/dL (60-115)
[2021-12-21] MEDS: Insulin Glargine,Hum.rec.anlog 100 UNIT/ML 10 ML VIAL 20 UNIT SUBCUT (20:08)
[2021-12-22 03:34] VITALS: BP 140/50; PULSE 65; RESP 17; TEMP 36.7; O2SAT 92
[2021-12-22 07:22] VITALS: BP 144/55; PULSE 73; RESP 20; TEMP 36.3; O2SAT 91
[2021-12-22 07:41] LABS: Glucose, Whole Blood 118 mg/dL (60-115)
[2021-12-22 09:35] LABS: INTERNATIONAL NORM RATIO 1.5 (0.9-1.1)
[2021-12-22 09:48] LABS: Anion Gap 18 (12-20); Blood Urea Nitrogen 15 mg/dL (9-16); Calcium 8.6 mg/dL (8.4-10.2); Carbon Dioxide 21 mmol/L (22-29); Chloride 98 mmol/L (96-108); Creatinine Clr Calc Pharmacy 62.8; Estimated Glomerular Filt Rate > 60; Glucose Random 158 mg/dL (60-115); Potassium 4.4 mmol/L (3.3-5.1); Sodium 133 mmol/L (135-145)
[2021-12-22] MEDS: 0.9 % Sodium Chloride Flush 3 ML SYRINGE IVFLUSH (10:47)
[2021-12-22] MEDS: metFORMIN HCl 1,000 MG TABLET 1000 MG PO (10:47)
[2021-12-22] MEDS: Spironolactone 25 MG TABLET PO (10:47)
[2021-12-22] MEDS: Metoprolol Succinate ER 50 MG TAB.ER.24H PO (10:47)
[2021-12-22] MEDS: amLODIPine Besylate 5 MG TABLET PO (10:47)
[2021-12-22] MEDS: Ferrous Sulfate 324 MG TABLET.DR PO (10:47)
[2021-12-22] MEDS: Morphine Sulfate 2 MG/ML CARTRIDGE IVPUSH (10:47)
[2021-12-22 10:58] VITALS: BP 144/55; PULSE 73; O2SAT 91
[2021-12-22 11:16] VITALS: BP 119/56; PULSE 80; RESP 18; TEMP 35.9; O2SAT 93
[2021-12-22 11:26] LABS: Glucose, Whole Blood 222 mg/dL (60-115)
[2021-12-22] MEDS: Insulin Lispro 100 UNIT/ML 3 ML VIAL SUBCUT (11:37)
--- NOTE | 2021-12-22 12:33 | PM.DS ---
DS: Providers Provider Date of Service: 12/22/21 Date of admission: 12/19/21 04:28 Date of discharge: 12/22/21 Primary care physician: Patricia Nicole MD Consults: 12/19/21 04:24 Consult to Nephrology Routine Consulting Provider: Felipe Kim Reason for consultation: hyponatremia 12/19/21 06:09 Consult to Cardiology Routine Consulting Provider: Guille Saini Reason for consultation: Bradycardia Attending physician on discharge: Shahram Dorado Discharging clinician: Zuleyma Liz DS: Diagnosis Discharge Diagnosis (1) Acute hyponatremia: Status: Acute (2) Type 2 diabetes mellitus with kidney complication, with long-term current use of insulin: Status: Acute DS: Summary Hospital Course Hospital Course: from H&P on day of admission 81-year-old female with a past medical history of hypertension, hyperlipidemia, diabetes, AFib on Coumadin, pulmonary hypertension, GERD, anemia, vertebral compression fractures, renal calculi, osteoporosis, presented to the hospital today with a chief complaint of generalized weakness.? Patient mentioned that over the past 4 days she has been having generalized weakness and has been not eating well.? Mentions that she had a fall recently, came to the ER, had CT scan done with no acute findings.? Currently denies any fall.? Reports intermittent abdominal discomfort.? Denies any nausea vomiting or diarrhea.? Denies any blood in the stool.? Denies any headaches or blurry visions.? Mentions that she has chronic peripheral edema and used to take Lasix for 8.? Currently not taking any Lasix.? Mentions that she has easy bruising attributes to the recent fall.? Denies any chest pain or palpitations Denies any cough or sputum production.? Denies any urinary symptoms.? Review of all other systems is negative except mentioned above ER course: Per ER team patient's exam was grossly benign, noted a mild the right upper quadrant tenderness-CT abdomen showed cholelithiasis; not concern for cholangitis or acute cholecystitis.? On labs noted to have sodium levels of 125 and INR of 6.1.? Admitted to the hospital for further management Hyponatremia. likely combination of low solute intake and increased ADH release from pain.improved with IVF. bradycardia. HR noted to be in 30s while sleeping. asymptomatic. Seen in consultation by Cardiology, metoprolol dose decreased to 25 mg daily. Recommend outpatient Holter monitor afib. seen by cardiology as above. recommended to consider eliquis, patient concerned about cost. consider transitioning to Eliquis upon discharge from SNF if agreeable to patient depending on copay abdominal US showing cholelithiasis. no abdominal pain, tolerating diet. LFTs wnl. thoracic compression fracture - no indication for vertebroplasty, symptomatic care. seen by PT - rec STR. Time Spent with Patient Time attestation: Total time spent providing and/or coordinating discharge services: Discharge coordination time: Greater than 30 minutes Quality: Safe Use of Opioids Does Pt have an Active Cancer Diagnosis on the Problem List?: No Quality: Stroke Does the patient have a stroke diagnosis?: No Physical Exam Vital Signs: Vital Signs: Last Vital Signs Temp 96.7 F L 12/22/21 11:16 Pulse 80 12/22/21 11:16 Resp 18 12/22/21 11:16 BP 119/56 L 12/22/21 11:16 Pulse Ox 93 12/22/21 11:16 O2 Del Method 12/22/21 11:16 O2 Flow Rate 1 12/21/21 07:16 BMI result Body Mass Index 29.0 Const: General: cooperative, comfortable, alert and awake Nutritional Appearance: overweight Orientation/consciousness: patient oriented x3 Resp: Effort & Inspection: normal respiratory effort and able to speak in complete sentences Cardio: Rate: regular rate Heart sounds: S1 normal heart sound present and S2 normal heart sound present GI: Inspection: No distended Palpation (GI): Soft to palpation and nontender Skin: Other: bruising right buttock, right knee, toes on right foot Neuro: General: patient oriented x3 and CN's II-XI intact bilaterally Extrem: Other: able to move all 4 extremities spontaneously DS: Data Data Completed and Pending Labs on day of discharge: Laboratory Results - last 24 hr 12/21/21 12/21/21 12/22/21 16:10 19:56 07:21 PT INR Sodium Potassium Chloride Carbon Dioxide Anion Gap BUN Creatinine Estim Creat Clear Calc Estimated GFR POC Glucose 171 H 240 H 118 H Random Glucose Calcium 12/22/21 12/22/21 12/22/21 08:58 09:09 11:14 PT 18.0 H INR 1.5 H Sodium 133 L Potassium 4.4 Chloride 98 Carbon Dioxide 21 L Anion Gap 18 BUN 15 Creatinine 0.68 Estim Creat Clear Calc 62.8 Estimated GFR > 60 POC Glucose 222 H Random Glucose 158 H Calcium 8.6 Discharge Plan Discharge Anticipated Discharge Date/Time: 12/22/21 12:50 Patient Disposition: Xfer SNF Discharge Diagnosis: elevated INR compression fracture hyponatremia Referrals: [facility] [Outside] - 1 Week Patricia Nicole MD [Primary Care Provider] - 1 Week Guille Saini MD [Physician] - 1 Week Discharge Medications: New metoprolol succinate 25 mg Tablet Extended Release 24 Hr 25 mg PO DAILY 30 Days Qty: 30 0RF Protocol: Hold for SBP/HR < HOLD for SBP < : 90 HOLD for HR < : 60 oxycodone 5 mg Tablet 5 mg PO Q6H PRN (Reason: Pain, Moderate (Pain Scale 4-6) Qty: 8 0RF Rx Instructions: Partial Fill upon patient request. Continued metformin 1,000 mg tablet 1,000 mg PO BID Qty: 180 3RF ferrous fumarate [Ferrocite] 324 mg (106 mg iron) tablet 324 mg PO DAILY Qty: 90 3RF spironolactone 25 mg tablet 1 tab PO DAILY warfarin 4 mg Tablet 4 mg PO TU warfarin 6 mg Tablet 6 mg PO SUMOWETHFRSA calcium carbonate 500 mg calcium (1,250 mg) Tablet 500 mg PO BID magnesium 250 mg Tablet 500 mg PO DAILY@1700 estradiol [Estrace] 0.01 % (0.1 mg/gram) Cream 1 g VAGINAL MOWEFR insulin lispro 100 unit/mL Insulin Pen 1 sliding scale dose SUBCUT USEASDIRECTD rosuvastatin 5 mg tablet 1 tab PO MOWEFR insulin glargine [Lantus Solostar U-100 Insulin] 100 unit/mL (3 mL) Insulin Pen 20 unit SUBCUT BEDTIME amlodipine 5 mg tablet 5 mg PO DAILY Discontinued metoprolol succinate 50 mg tablet extended release 24 hr 50 mg PO DAILY Qty: 90 2RF No Action (DME) pen needle, diabetic [BD Ultra-Fine Mini Pen Needle] 31 gauge x 3/16 needle See Rx Instructions .Route Qty: 100 4RF Rx Instructions: As directed Discharge Orders: Discharge Order (Routine); Ordered 12/22/21 Ordered By: Zuleyma Liz Activity on Discharge: As tolerated Stand Alone Forms: Patient Portal Discharge page Care Plan Goals: see below Health Concerns: low sodium high INR compression fracture bradycardia Plan of Treatment: HR was low, dose of metoprolol was decreased - call to schedule outpatient follow up with cardiology for Holter Monitor INR on day of discharge is 1.5, previous dose of coumadin will be resumed. follow INR tomorrow and daily until in therapeutic range and then adjust accordingly. consider transitioning to Eliquis sodium levels have improved, 133 on day of discharge pain related to fall and compression fracture - physical therapy and symptomatic treatment, tylenol and prn oxycodone for severe pain Assessment: see discharge summary
--- NOTE | 2021-12-22 12:47 | MHC.CM.PN ---
Per Medical, Patient will be medically cleared for dc to STR/SNF today. Patient will dc to her first choice SNF/[facility] today at v4PM via [facility]. Patient and her /Gonzalo at [phone] are aware of and in agreement with the dc plan. Imm addressed with Patient at bedside and original has been given to her and a copy has been placed on the chart.
[2021-12-22] MEDS: oxyCODONE HCl Immed Release 5 MG TABLET PO (13:49)
[2021-12-22 13:54] LABS: Influenza A PCR NEGATIVE (Negative); Influenza B PCR NEGATIVE (Negative); Resp Syncy Virus RNA Qual PCR NEGATIVE (Negative); SARS COV2 PCR INHOUSE NEGATIVE (Negative)
[2021-12-22] MEDS: polyethylene glycoL 3350 17 GM POWD.PACK PO (15:41)
[2021-12-22 16:00] VITALS: BP 136/68; PULSE 67; RESP 18; TEMP 36.8; O2SAT 93
[2021-12-22 16:24] LABS: Glucose, Whole Blood 192 mg/dL (60-115)
== END 2021-12-22 18:55 | disposition skilled nursing facility (03) | DRG 641 ==
LOC: HO.ED 12-19 00:32 → HO.EDOVER 12-19 04:37 → HO.IMC 12-20 13:31
PROVIDERS: Hospitalist; Internal Medicine Nephrology; Admitting Provider Hospitalist; Emergency Provider Emergency Medicine; PCP Internal Medicine; Visit Provider Physician Assistant Medical
DX: E87.1 Hypo-osmolality and hyponatremia (principal); I48.21 Permanent atrial fibrillation; M48.54XA Collapsed vertebra, not elsewhere classified, thoracic region, initial encounter for fracture; E78.5 Hyperlipidemia, unspecified; E11.40 Type 2 diabetes mellitus with diabetic neuropathy, unspecified; K21.9 Gastro-esophageal reflux disease without esophagitis; R00.1 Bradycardia, unspecified; Z20.822 Contact with and (suspected) exposure to COVID-19; R79.1 Abnormal coagulation profile; K80.20 Calculus of gallbladder without cholecystitis without obstruction; Z96.651 Presence of right artificial knee joint; Z91.040 Latex allergy status; Z88.2 Allergy status to sulfonamides; Z88.5 Allergy status to narcotic agent; Z88.8 Allergy status to other drugs, medicaments and biological substances; Z79.4 Long term (current) use of insulin; Z79.01 Long term (current) use of anticoagulants; Z79.84 Long term (current) use of oral hypoglycemic drugs; Z79.899 Other long term (current) drug therapy
CPT/HCPCS: 0241U; 36415; 72148; 76705; 80048; 80051; 80053; 81003; 82436; 82947; 83690; 83935; 84133; 84300; 84550; 85025; 85379; 85610; 87635; 93005; 96360; 96361; 97116; 97162; 99211; 99285; J2270

== ENCOUNTER → 2022-01-10 13:21 | Outpatient (BNVA) | payer MEDICARE, SELFPAY | PROVIDERS: PCP Internal Medicine; Visit Provider Internal Medicine | DX: I48.21 Permanent atrial fibrillation (principal); Z79.01 Long term (current) use of anticoagulants; Z51.81 Encounter for therapeutic drug level monitoring | CPT/HCPCS: 85610; 99211 ==

== ENCOUNTER 2022-01-17 07:01 | Outpatient (REF) | payer MEDICARE, SELFPAY ==
[2022-01-17 11:49] LABS: MANUAL DIFF FLAG NO
[2022-01-17 11:58] LABS: Basophils Absolute Auto 0.1 X10*3/uL (0.0-0.2); Basophils Percent Auto 0.6 % (0-2); Eosinophils Absolute Auto 0.4 X10*3/uL (0.0-0.4); Eosinophils Percent Auto 3.7 % (0-4); Hematocrit 42.6 % (37.0-47.0); Hemoglobin 13.7 g/dl (12.0-16.0); Imm Gran Abs Auto 0.03 X10*3/uL (0.00-0.03); Imm Gran Pct Auto 0.3 % (0.0-0.4); Lymphocytes Absolute Auto 2.2 X10*3/uL (1.2-4.9); Lymphocytes Percent Auto 23.5 % (20-40); Mean Corpuscular HGB Conc 32.2 g/dl (31.0-35.0); Mean Corpuscular Hemoglobin 28.5 pg (27.0-33.0); Mean Corpuscular Volume 88.6 fL (80.0-98.0); Mean Platelet Volume 9.9 fL (9.4-12.3); Monocytes Absolute Auto 0.9 X10*3/uL (0.1-1.2); Monocytes Percent Auto 9.6 % (2-11); Neutrophils Absolute Auto 5.9 x10*3/uL (2.0-8.3); Neutrophils Percent Auto 62.3 % (45-73); Platelet Count 352 X10*3/uL (160-400); Red Blood Count 4.81 X10*6/uL (4.20-5.50); Red Cell Distribution Width 15.1 % (11.0-16.0); White Blood Count 9.4 X10*3/uL (4.8-10.8)
[2022-01-17 12:04] LABS: Estimated Average Glucose 146 mg/dL; Hemoglobin A1c % 6.7 %
[2022-01-17 12:28] LABS: Alanine Aminotransferase 15 U/L (0-31); Albumin Level 4.1 g/dL (3.5-5.0); Alkaline Phosphatase 88 U/L (39-117); Anion Gap 18 (12-20); Aspartate Amino Transferase 17 U/L (5-31); Bilirubin Total 0.5 mg/dL (0.0-1.0); Blood Urea Nitrogen 13 mg/dL (9-16); Calcium 9.4 mg/dL (8.4-10.2); Carbon Dioxide 28 mmol/L (22-29); Chloride 100 mmol/L (96-108); Cholesterol 158 mg/dL; Estimated Glomerular Filt Rate > 60; Glucose Fasting 95 mg/dL (60-99); HDL Cholesterol 53 mg/dL; Iron 59 mcg/dL (30-160); LDL Cholesterol Calculated 87 mg/dl; Percent Iron Saturation 16 % (15-50); Potassium 4.9 mmol/L (3.3-5.1); Sodium 141 mmol/L (135-145); Total Iron Binding Capacity 374 mcg/dL (228-428); Total Protein 7.1 g/dL (6.5-8.0); Triglycerides 94 mg/dL; Unsaturated Iron Binding 315 ug/dL
[2022-01-17 12:31] LABS: Creatinine Urine 16.67 mg/dL; Microalbum/Creatinine Ratio Ur 125.9 ug/mg cr
[2022-01-17 13:37] LABS: TSH reflex Free T4 4.87 uIU/mL (0.32-4.0); Vitamin D 25-OH Total 37.1 ng/mL (>30)
[2022-01-17 14:57] LABS: Free T4 (Free Thyroxine) 1.36 ng/dL (0.71-1.85)
== END 2022-01-17 07:02 | disposition home or self-care (01) ==
LOC: HO.CHCLDS 07:01
PROVIDERS: Visit Provider Internal Medicine
DX: E11.40 Type 2 diabetes mellitus with diabetic neuropathy, unspecified (principal); D50.9 Iron deficiency anemia, unspecified; E78.5 Hyperlipidemia, unspecified; E87.1 Hypo-osmolality and hyponatremia; I10 Essential (primary) hypertension; M85.80 Other specified disorders of bone density and structure, unspecified site; N28.1 Cyst of kidney, acquired; N95.9 Unspecified menopausal and perimenopausal disorder; R12 Heartburn; Z79.01 Long term (current) use of anticoagulants; Z79.4 Long term (current) use of insulin
CPT/HCPCS: 36415; 80053; 80061; 82043; 82306; 83036; 83540; 84439; 84443; 85025

== ENCOUNTER → 2022-01-19 13:10 | Outpatient (BNVA) | payer MEDICARE, SELFPAY | PROVIDERS: PCP Internal Medicine; Visit Provider Internal Medicine | DX: I48.21 Permanent atrial fibrillation (principal); Z79.01 Long term (current) use of anticoagulants; Z51.81 Encounter for therapeutic drug level monitoring | CPT/HCPCS: 85610; 99212 ==

== ENCOUNTER → 2022-01-23 13:05 | Outpatient (BNVA) | payer MEDICARE, SELFPAY | PROVIDERS: PCP Internal Medicine; Visit Provider Internal Medicine | DX: I48.21 Permanent atrial fibrillation (principal); Z79.01 Long term (current) use of anticoagulants; Z51.81 Encounter for therapeutic drug level monitoring | CPT/HCPCS: 85610; 99211 ==

== ENCOUNTER → 2022-01-27 11:08 | Outpatient (REF) | payer MEDICARE, SELFPAY ==
--- NOTE | 2022-01-27 11:15 | HM_ITS ---
* Total monitoring time 3 days. * Underlying rhythm is atrial fibrillation. * Average ventricular rate 76/Min. Range 46 to 125/Min. * Rare ventricular ectopy. Spiro less than 1%. Brief runs noted. Longest 4 beats. Cannot exclude aberrant conduction. * No pauses or AV blocks. * Mention of skipped beat/indigestion in diary; difficult to correlate as she is in atrial fibrillation throughout. MTDD
== END ==
LOC: HO.CARD 11:08
PROVIDERS: PCP Internal Medicine; Visit Provider Internal Medicine
DX: I48.21 Permanent atrial fibrillation (principal); R00.1 Bradycardia, unspecified
CPT/HCPCS: 93242

== ENCOUNTER 2022-02-15 12:38 | Outpatient (REF) | payer MEDICARE, SELFPAY ==
--- NOTE | ~2022-02-15 | US_ITS ---
EXAMINATION: US RETROPERITONEAL LIMITED (RENAL ONLY) CLINICAL INFORMATION: Cyst of kidney, acquired. COMPARISON: Ultrasound abdomen limited dated dated 12/18/2021. CT abdomen and pelvis without intravenous contrast dated 12/13/2021. Bilateral renal ultrasound dated 07/21/2021. KUB dated 07/07/2020. TECHNIQUE: Real-time imaging of the kidneys. FINDINGS: RIGHT KIDNEY: 10.2 x 5.1 x 4.9 cm (SAG x AP x TRV). The kidney is normal in size, contour, and echogenicity. Renal cortical thickness is normal. No focal parenchymal lesions or hydronephrosis. There is an echogenic stone in the mid pole measuring 0.7 x 0.3 x 0.5 cm. There is no caliectasis. An 8 mm radiopaque calculus was seen in the mid pole on the CT abdomen exam of 12/13/2021. LEFT KIDNEY: 10.5 x 5.1 x 5.6 cm (SAG x AP x TRV). The kidney is normal in size, contour, and echogenicity. Renal cortical thickness is normal. No renal calculi or hydronephrosis. There are anechoic cysts. Upper pole cysts measure 1.8 x 1.4 x 1.5 cm and 0.7 x 0.6 x 0.8 cm. A complex lower pole cyst measures 2.5 x 2.2 x 3.1 cm. A solitary cyst was visualized in the lower pole on the previous CT abdomen and pelvis exam. US/US renal BI IMPRESSION: 1. Nonobstructive echogenic stone mid pole right kidney. No caliectasis or hydronephrosis. 2. Simple cysts upper pole and complex cyst lower pole left kidney.
== END 2022-02-15 12:39 | disposition home or self-care (01) ==
LOC: HO.US 12:38
DX: N28.1 Cyst of kidney, acquired (principal)
CPT/HCPCS: 76775

== ENCOUNTER → 2022-02-16 09:56 | Outpatient (BNVA) | payer MEDICARE, SELFPAY | PROVIDERS: PCP Internal Medicine; Referring Provider Internal Medicine; Visit Provider Internal Medicine | DX: I48.21 Permanent atrial fibrillation (principal); I10 Essential (primary) hypertension; R07.2 Precordial pain; I34.0 Nonrheumatic mitral (valve) insufficiency; I27.20 Pulmonary hypertension, unspecified; R60.0 Localized edema | CPT/HCPCS: 99212 ==

== ENCOUNTER 2022-02-17 12:54 | Outpatient (AMB) | payer MEDICARE, SELFPAY ==
--- NOTE | 2022-02-17 13:09 | A.OFFPC_ITS ---
Vital Signs 02/17/22 13:11 Height 5 ft 3 in Weight 160 lb BMI 28.3 BP 100/64 Blood Pressure Location Lt brachial Position Sitting Pulse 99 Pulse Source Pulse Oximeter Pulse Oximetry (%) 97 Intake Visit Reasons: 3 month follow up Intake Note: Pt is here today for her 3 months f/u Allergies latex (Latex) Allergy (Severe, Verified 02/09/25 08:40) RASH cephalexin (CEPHALEXIN) Allergy (Intermediate, Verified 02/09/25 08:40) SWELLING adhesive tape (Adhesive Tape) Allergy (Mild, Verified 02/09/25 08:40) CONTACT DERMATITIS empagliflozin (From Jardiance) Adverse Reaction (Severe, Verified 02/09/25 08:40) Dizziness flecainide (From Tambocor) Adverse Reaction (Severe, Verified 02/09/25 08:40) HEART RACING Biaxin Adverse Reaction (Intermediate, Verified 02/09/25 08:40) plapitations lisinopril (LISINOPRIL) Adverse Reaction (Intermediate, Verified 02/09/25 08:40) cough, nausea bacitracin (From Cortisporin) Adverse Reaction (Mild, Verified 02/09/25 08:40) EYE IRRITATION hydrocortisone (From Cortisporin) Adverse Reaction (Mild, Verified 02/09/25 08:40) EYE IRRITATION neomycin (From Cortisporin) Adverse Reaction (Mild, Verified 02/09/25 08:40) EYE IRRITATION nitrofurantoin Adverse Reaction (Verified 02/09/25 08:40) Loss of Appetite Medication List - Last Reconciled 02/17/22 by Patricia Nicole MD acetaminophen 1,000 mg PO Q6H PRN amlodipine 5 mg PO DAILY apixaban (Eliquis) 5 mg PO BID 90 days calcium carbonate 500 mg PO BID estradiol 0.01%(0.1mg/gram) (Estrace) 1 g vaginal MOWEFR ferrous fumarate (Ferrocite) 324 mg PO DAILY insulin glargine (Lantus Solostar U-100 Insulin) 20 units subcut BEDTIME insulin lispro (Humalog KwikPen U-200 Insulin) subcut magnesium 500 mg PO DAILY@1700 metformin 1,000 mg PO BID metoprolol succinate ER 25 mg See Protocol PO DAILY 30 days pen needle, diabetic (BD Ultra-Fine Mini Pen Needle) As directed rosuvastatin 5 mg PO MOWEFR spironolactone 25 mg PO DAILY Tobacco use date assessed: 02/17/22 Fall risk assessment: 1 Fall in past year Last assessed Fall Risk: 02/17/22 [facility] Medical History Type 2 diabetes mellitus with diabetic neuropathy, with long-term current use of insulin History of CHF (congestive heart failure) Chronic combined systolic and diastolic CHF (congestive heart failure) Right nephrolithiasis Recurrent UTI (urinary tract infection) Hiatal hernia Gastritis Degenerative disc disease, thoracic Degenerative disc disease, lumbar [place] (hard of hearing) Wears hearing aid in both ears Uses walker Hx of cardiac pacemaker (10/06/23) Age-related osteoporosis with current pathological fracture, vertebra(e), initial encounter for fracture Compression fracture of lumbar spine, non-traumatic Nontraumatic compression fracture of thoracic vertebra Moderate aortic stenosis Diabetes mellitus Cholelithiasis Renal cyst Pulmonary hypertension Non-rheumatic mitral regurgitation Permanent atrial fibrillation Microcytic anemia Atrophic vaginitis Osteoarthritis of knees, bilateral Essential hypertension Dyslipidemia Surgical History History of cardiac radiofrequency ablation (RFA) Hx of cardiac catheterization History of esophagogastroduodenoscopy (EGD) (~10/2022) History of lumbar discectomy History of lobectomy of lung History of hysterectomy History of total right knee replacement (TKR) Lumbar radiculopathy Family History Father Diabetes mellitus Mother Diabetes mellitus Myocardial infarction Sister Cancer Sister No problems noted. Son No problems noted. Daughter No problems noted. Social History Household Members: Family Housing: House Are you a primary respiratory care faculty to a significant other at home: No Do you presently have visiting nurse or other home services: No Alcohol intake: never Patient Tobacco Use Status: Former Tobacco user Tobacco use type: Cigarette e-Cigarette/Vaping Use: Never Used Advance Directives Date on File: 06/20/23 service: No Current occupational status: retired Cognitive needs: No Hearing needs: Yes Vision needs: Yes Questionnaire Thrive Questionnaire Date Thrive assessed: 06/10/21 INGRID-7 AMB Questionnaire INGRID-7 Date INGRID - 7 assessed: 06/10/21 Source: Developed by Drs. Chaz Mayer, Lily Ruggiero, Aayush Severino and colleagues, with an educational melinda from [employer] Physical exam (Primary Care) Vital Signs: Last Vital Signs Pulse 99 02/17/22 13:11 BP 100/64 02/17/22 13:11 Pulse Ox 97 02/17/22 13:11 BMI result Body Mass Index 28.3 Tobacco/Smoking Status: Tobacco use Status Tobacco use date assessed 02/17/22 02/17/22 13:23 Patient Tobacco Use Status Never used Tobacco 02/17/22 13:10 e-Cigarette/Vaping Use Never Used 02/17/22 13:10 Thrive Assessment: Date of Thrive Assessment Date Thrive assessed 06/10/21 02/17/22 13:10 Results Reviewed Results Reviewed: ENTERED: 01/17/[address]: ORDERED: CBC Auto Diff Test Result Flag Reference Site WBC 9.4 4.8-10.8 X10*3/uL RBC 4.81 4.20-5.50 X10*6/uL HGB 13.7 12.0-16.0 g/dl HCT 42.6 37.0-47.0 % MCV 88.6 80.0-98.0 fL MCH 28.5 27.0-33.0 pg MCHC 32.2 31.0-35.0 g/dl RDW 15.1 11.0-16.0 % PLT 352 160-400 X10*3/uL ENTERED: 01/17/[address]: ORDERED: CMP Fast, IRON PROF, Lipid Panel, Vitamin D 25-OH, Free T4, TSH Rflx Test Result Flag Reference Site Sodium 141 135-145 mmol/L Potassium 4.9 3.3-5.1 mmol/L CL 100 96-108 mmol/L CO2 28 22-29 mmol/L Gap 18 12-20 BUN 13 9-16 mg/dL Creat 0.70 0.5-1.4 mg/dL EGFR > 60 NOTE: For -[place] individuals, multiply the result by 1.210. Chronic Kidney Disease: Estimated GFR < 60 mL/min/1.73m2 Severe Kidney Disease: Estimated GFR < 15 mL/min/1.73m2 FBS 95 60-99 mg/dL CA 9.4 # 8.4-10.2 mg/dL Iron 59 30-160 mcg/dL TIBC 374 228-428 mcg/dL Saturation 16 15-50 % UIBC 315 ug/dL Total Bili 0.5 0.0-1.0 mg/dL AST (GOT) 17 5-31 U/L ALT (GPT) 15 0-31 U/L Protein, Total 7.1 6.5-8.0 g/dL Alb 4.1 3.5-5.0 g/dL Triglyceride 94 mg/dL Desirable Triglyceride: less than 150 mg/dL Borderline High Triglyceride 150-199 mg/dL High Triglyceride: 200-499 mg/dL Very High Triglyceride: greater than or equal to 5OO mg/dL Chol 158 mg/dL Desirable Cholesterol: less than 200 mg/dL Borderline High Cholesterol: 200-239 mg/dL High Cholesterol: greater than 239 mg/dL LDL Calculated 87 mg/dl Desirable LDL: less than 100 mg/dL Near Optimal/Above Optimal LDL: 110-129 mg/dL Borderline High LDL: 130-159 mg/dL High LDL: 160-189 mg/dL Very High LDL: greater than or equal to 190 mg/dL HDL 53 # mg/dL Desirable HDL: greater than 40 mg/dL Note: This HDL assay may give artificially low results in patients with liver disease. Alk Phos 88 # 39-117 U/L Vit D 25-OH Tot 37.1 >30 ng/mL Health Based Reference Values* < 20 ng/mL Deficient 20-30 ng/mL Insufficient > 30 ng/mL Sufficient *Carlos FRASER. N Engl J Med. 2007;[id number]:[id number] Care must be taken in interpreting Vitamin D results from different laboratories and methodologies. Published data demonstrated that results from patients undergoing hemodialysis may show a negative bias when tested with various automated 25-OH vitamin D assays when compared to LC-MS/MS. When testing samples from patients whose predominant form of Vitamin D is Vitamin D2, such as patients receiving Vitamin D2 supplementation, results that are subtherapeutic should be confirmed with another method such as LC-MS/MS. Free T4 1.36 0.71-1.85 ng/dL TSH 4.87 H 0.32-4.0 uIU/mL Coding Level of Care Code Admin Sign Off/No Billing Diagnoses Dyslipidemia E78.5 Type 2 diabetes mellitus with diabetic neuropathy, with long-term current use of insulin E11.40; Z79.4
[2022-02-17 13:11] VITALS: BP 100/64; PULSE 99; O2SAT 97; BMI 28.3
== END 2022-02-17 14:14 | disposition home or self-care (01) ==
LOC: HO.HMGC 12:54
PROVIDERS: PCP Internal Medicine; Visit Provider Internal Medicine
DX: E78.5 Hyperlipidemia, unspecified (principal); E11.40 Type 2 diabetes mellitus with diabetic neuropathy, unspecified; Z79.4 Long term (current) use of insulin
CPT/HCPCS: 99499

== ENCOUNTER → 2022-03-06 10:13 | Outpatient (BNVA) | payer MEDICARE, SELFPAY | PROVIDERS: PCP Internal Medicine; Visit Provider Nurse Practitioner Family | DX: N20.0 Calculus of kidney (principal) | CPT/HCPCS: 51798; 99212 ==

== ENCOUNTER 2022-03-28 17:43 | Emergency (ER) | payer MEDICARE, SELFPAY ==
[2022-03-28 18:02] VITALS: BP 154/77; PULSE 85; RESP 18; TEMP 36.4; O2SAT 94; BMI 27.4
--- NOTE | 2022-03-28 18:08 | ECG_ITS ---
Test Reason : HYPERTENSION Blood Pressure : / mmHG Vent. Rate : 078 BPM Atrial Rate : 000 BPM P-R Int : 000 ms QRS Dur : 094 ms QT Int : 392 ms P-R-T Axes : 000 -49 035 degrees QTc Int : 446 ms Atrial fibrillation with premature ventricular or aberrantly conducted complexes Left axis deviation Nonspecific ST abnormality Abnormal ECG When compared with ECG of 19-DEC-2021 06:14, No significant change was found Referred By: Roberta Zaidi Electronically Signed By:Guille Saini
--- NOTE | 2022-03-28 18:08 | ED.GENADULT ---
HPI - General Adult General Chief complaint: General Medical <FIORELLA Wiggins - Last Filed: 03/28/22 18:11> Stated complaint: High blood pressure <FIORELLA Wiggins - Last Filed: 03/28/22 18:11> Time Seen by Provider: 03/28/22 18:58 <FIORELLA Wiggins - Last Filed: 03/28/22 18:11> Source: patient <Ayanna Coles NP - Last Filed: 03/29/22 00:39> Mode of arrival: wheelchair <Ayanna Coles NP - Last Filed: 03/29/22 00:39> Limitations: no limitations <Ayanna Coles NP - Last Filed: 03/29/22 00:39> History of Present Illness HPI narrative: 81-year-old female presents for blood pressure check. States that her blood pressure was 190/100 at home. She does not report any headaches, changes in vision, or stroke-like symptoms. She does report some upper respiratory symptoms and nausea. <Ayanna Coles NP - Last Filed: 03/29/22 00:39> Onset (ago): day(s) <Ayanna Coles NP - Last Filed: 03/29/22 00:39> Radiation: non-radiation <Ayanna Coles NP - Last Filed: 03/29/22 00:39> Severity: mild <Ayanna Coles NP - Last Filed: 03/29/22 00:39> Exacerbating factors: none <Ayanna Coles NP - Last Filed: 03/29/22 00:39> Associated symptoms: denies other symptoms <Ayanna Coles NP - Last Filed: 03/29/22 00:39> Treatments prior to arrival: none <Ayanna Coles NP - Last Filed: 03/29/22 00:39> Related Data Home medications: Home Medications Medication Instructions Recorded Confirmed amlodipine 5 mg tablet 5 mg PO DAILY 03/03/20 03/06/22 calcium carbonate 500 mg calcium 500 mg PO BID 12/19/21 03/06/22 (1,250 mg) tablet estradiol 0.01% (0.1 mg/gram) 1 g vaginal MOWEFR 12/19/21 03/06/22 vaginal cream (Estrace) insulin glargine 100 unit/mL (3 20 unit subcut BEDTIME 12/19/21 03/06/22 mL) subcutaneous pen (Lantus Solostar U-100 Insulin) magnesium 250 mg tablet 500 mg PO DAILY@1700 12/19/21 03/06/22 acetaminophen 500 mg tablet 1,000 mg PO Q6H PRN 01/13/22 03/06/22 rosuvastatin 5 mg tablet 5 mg PO MOWEFR 02/16/22 03/06/22 spironolactone 25 mg tablet 25 mg PO DAILY 02/16/22 03/06/22 Previous Rx's Medication Instructions Recorded ferrous fumarate 324 mg (106 mg 324 mg PO DAILY #90 tabs 07/20/21 iron) tablet (Ferrocite) metoprolol succinate 25 mg 25 mg PO DAILY 30 days #30 tabs 12/22/21 tablet,extended release 24 hr apixaban 5 mg tablet (Eliquis) 5 mg PO BID 90 days #180 tabs 01/23/22 pen needle, diabetic 31 gauge x #360 ea 02/17/22 3/16 (BD Ultra-Fine Mini Pen Needle) metformin 1,000 mg tablet 1,000 mg PO BID #180 tabs 02/24/22 insulin lispro 200 unit/mL (3 mL) 35 unit (0.175 mL) subcut BEDTIME 03/15/22 subcutaneous pen (Humalog KwikPen #18 mL U-200 Insulin) <FIORELLA Wiggins - Last Filed: 03/28/22 18:11> Allergies/adverse reactions: Allergies Allergy/AdvReac Type Severity Reaction Status Date / Time adhesive tape [Adhesive Tape] Allergy Mild CONTACT Verified 03/06/22 10:19 DERMATITIS cephalexin [CEPHALEXIN] Allergy Unknown SWELLING Verified 03/06/22 10:19 latex [Latex] Allergy Unknown RASH Verified 03/06/22 10:19 Biaxin AdvReac Intermediate plapitation Verified 03/06/22 10:19 s bacitracin [From Cortisporin] AdvReac Mild EYE Verified 03/06/22 10:19 IRRITATION hydrocortisone AdvReac Mild EYE Verified 03/06/22 10:19 [From Cortisporin] IRRITATION neomycin [From Cortisporin] AdvReac Mild EYE Verified 03/06/22 10:19 IRRITATION flecainide [From Tambocor] AdvReac Unknown HEART Verified 03/06/22 10:19 RACING lisinopril [LISINOPRIL] AdvReac Unknown cough, Verified 03/06/22 10:19 nausea Sulfa (Sulfonamide AdvReac Unknown PALPITATION Verified 03/06/22 10:19 Antibiotics) S [SULFA(SULFONAMIDE ANTIBIOTICS)] <FIORELLA Wiggins - Last Filed: 03/28/22 18:11> Review of Systems Review of Systems: Constitutional: Positive elevated blood pressure, No Fever, No Chills ENT/Mouth: Positive congestion, No Ear Pain, No Hoarseness, No sore throat Eyes: No Eye Pain, No Swelling, No Redness, No Foreign Body Cardiovascular: No Chest Pain, No SOB Respiratory: Positive intermittent Cough, No Dyspnea Gastrointestinal: Positive Nausea, No Vomiting, No Diarrhea, No abdominal Pain Genitourinary: No Dysuria, No Hematuria Musculoskeletal: No joint pain, No Myalgias, No Joint Swelling Skin: No Skin lacerations, No rash Neuro: No Weakness, No Numbness, No Paresthesias, No Dizziness, No Headache <Ayanna Coles NP - Last Filed: 03/29/22 00:39> Yes all other systems are reviewed and are negative <Ayanna Coles NP - Last Filed: 03/29/22 00:39> PMFSH Past Medical History Attestation statement: The following information was validated with the patient. 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 Son No problems noted. Daughter No problems noted. <FIORELLA Wiggins - Last Filed: 03/28/22 18:11> Social History Social History: Social History Household Members: Spouse Housing: House Do you presently have visiting nurse or other home services: No Alcohol intake: never Patient Tobacco Use Status: Never used Tobacco e-Cigarette/Vaping Use: Never Used Advance Directives: No Advance Directives Information Provided: No service: No Current occupational status: retired Cognitive needs: No Hearing needs: Yes Vision needs: Yes <FIORELLA Wiggins - Last Filed: 03/28/22 18:11> Physical Exam ED Vital Signs: Vital Signs - 24 hr 03/28/22 18:02 03/28/22 19:18 Temperature 97.5 F Pulse Rate 85 86 Respiratory Rate 18 16 Blood Pressure 154/77 H 142/57 H Pulse Oximetry 94 96 Oxygen Delivery Method Room Air Room Air BMI result Body Mass Index 27.4 <FIORELLA Wiggins - Last Filed: 03/28/22 18:11> Vital Signs - 24 hr 03/28/22 18:02 03/28/22 19:18 Temperature 97.5 F Pulse Rate 85 86 Respiratory Rate 18 16 Blood Pressure 154/77 H 142/57 H Pulse Oximetry 94 96 Oxygen Delivery Method Room Air Room Air BMI result Body Mass Index 27.4 <Ayanna Coles NP - Last Filed: 03/29/22 00:39> Appearance: Alert. Oriented X3. No acute distress. Eyes: Pupils equal, round and reactive to light. ENT: Pharynx normal. Neck: Normal inspection. Neck supple. CVS: Normal heart rate and rhythm. Pulses normal. Respiratory: No respiratory distress. Breath sounds normal. Abdomen: Soft and nontender. Skin: Skin warm and dry. Normal skin color. Normal skin turgor. Extremities: Moves all extremities against resistance. Gait not assessed for safety. Patient uses a wheelchair. Neuro: No motor deficit. No sensory deficit. Cranial nerves 2-12 intact. <Ayanna Coles NP - Last Filed: 03/29/22 00:39> Course Course Course Narrative: SHERONE - 81-year-old female with history of paroxysmal AFib on Eliquis, HTN, pulmonary hypertension, osteoarthritis, diabetes on insulin who presents to the ER for evaluation of hypertension at home, blood pressure 190/1 10s. Patient felt ?off? with fullness in her head. He is very anxious and states her blood pressures when ?climbing all day. ? She took all her medications as directed. BP significantly improved 150/70 is on arrival. Will get labs and EKG for further evaluation. <FIORELLA Wiggins - Last Filed: 03/28/22 18:11> RME - 81-year-old female with history of paroxysmal AFib on Eliquis, HTN, pulmonary hypertension, osteoarthritis, diabetes on insulin who presents to the ER for evaluation of hypertension at home, blood pressure 190/1 10s. Patient felt ?off? with fullness in her head. He is very anxious and states her blood pressures when ?climbing all day. ? She took all her medications as directed. BP significantly improved 150/70 is on arrival. Will get labs and EKG for further evaluation. 81-year-old female presents with elevated blood pressures over the past week. Currently in the emergency department her blood pressures are 154/77. Patient does not have any stroke-like symptoms. NIH stroke scale is 0. Patient states to have anxiety and some upper respiratory symptoms. Will araceli urine and COVID influenza RSV. 19:20 labs obtained. Labs are negative for acute findings requiring emergent intervention. EKG shows AFib, no significant changes from December and November of 2021. No indication of ischemia ST elevation or depressions. Labs are relatively benign, glucose elevated at 208. Urinalysis negative for acute findings. COVID RSV negative. Blood pressure 142/57. I do not feel that this patient requires any changes in her blood pressure medications. She is an established patient of Dr. Callahan, I feel that this patient should follow up with him for blood pressure medication management or changes. This patient is stable, and requires no further intervention. Patient verbalized understanding of and agrees to plan of care discharge home. Verbalized understanding of signs symptoms indicating need for emergent intervention. <Ayanna Coles NP - Last Filed: 03/29/22 00:39> Medical Decision Making Differential Diagnosis Differential Diagnoses: The differential diagnosis associated with the presentation includes <Ayanna Coles NP - Last Filed: 03/29/22 00:39> Hypertension, URI <Ayanna Coles NP - Last Filed: 03/29/22 00:39> Lab Data MDM Lab Attestation statement: I reviewed the patient's lab results. <Ayanna Coles NP - Last Filed: 03/29/22 00:39> Result Diagrams: 03/28/22 18:20 03/28/22 18:20 <FIORELLA Wiggins - Last Filed: 03/28/22 18:11> Labs: Lab Results 03/28/22 03/28/22 03/28/22 Range/Units 18:20 18:20 19:18 WBC 8.3 (4.8-10.8) X10*3/uL RBC 5.25 (4.20-5.50) X10*6/uL Hgb 14.4 (12.0-16.0) g/dl Hct 45.3 (37.0-47.0) % MCV 86.3 (80.0-98.0) fL MCH 27.4 (27.0-33.0) pg MCHC 31.8 (31.0-35.0) g/dl RDW 15.3 (11.0-16.0) % Plt Count 264 (160-400) X10*3/uL MPV 9.3 L (9.4-12.3) fL Immature Gran % (Auto) 0.4 (0.0-0.4) % Neut % (Auto) 69.5 (45-73) % Lymph % (Auto) 16.8 L (20-40) % [place] % (Auto) 8.9 (2-11) % Eos % (Auto) 3.7 (0-4) % Baso % (Auto) 0.7 (0-2) % Lymph # (Auto) 1.4 (1.2-4.9) X10*3/uL [place] # (Auto) 0.7 (0.1-1.2) X10*3/uL Eos # (Auto) 0.3 (0.0-0.4) X10*3/uL Baso # (Auto) 0.1 (0.0-0.2) X10*3/uL Abs Immat Gran (auto) 0.03 (0.00-0.03) X10*3/uL Absolute Neuts (auto) 5.8 (2.0-8.3) x10*3/uL Absolute Nucleated RBC 0.000 (0.0-0.012) X10*3/uL Nucleated RBC % (auto) 0.0 (0.0-0.2) /100WBC Sodium 136 (135-145) mmol/L Potassium 4.5 (3.3-5.1) mmol/L Chloride 101 (96-108) mmol/L Carbon Dioxide 20 L (22-29) mmol/L Anion Gap 20 (12-20) BUN 16 (9-16) mg/dL Creatinine 0.76 (0.5-1.4) mg/dL Estim Creat Clear Calc 54.7 Estimated GFR > 60 Random Glucose 208 H (60-115) mg/dL Calcium 9.8 (8.4-10.2) mg/dL Magnesium 1.9 (1.6-2.6) mg/dL Total Bilirubin 0.4 (0.0-1.0) mg/dL Direct Bilirubin 0.2 (0.0-0.5) mg/dL AST 18 (5-31) U/L ALT 11 (0-31) U/L Alkaline Phosphatase 67 D (39-117) U/L Total Protein 7.7 (6.5-8.0) g/dL Albumin 4.4 (3.5-5.0) g/dL Urine Color Urine Appearance Urine pH (5.0-9.0) Ur Specific [place] (1.005-1.025) Urine Protein (Neg-Trace) mg/dL Urine Glucose (UA) (Negative) mg/dL Urine Ketones (Negative) mg/dL Urine Blood (Negative) Urine Nitrite (Negative) Ur Leukocyte Esterase (Negative) Urine RBC (0-2) /HPF Urine WBC (0-5) /HPF Ur Squamous Epith Cells (0-2) /HPF Urine Bacteria (None Seen) Hyaline Casts (0-2) /LPF COVID-19 (LENNIE) (Negative) COVID-19 Clin Com Influenza Type A (ERIN) Negative (Negative) Influenza Type B (ERIN) Negative (Negative) Influenza A & B Note See Note 03/28/22 03/28/22 Range/Units 19:18 19:32 WBC (4.8-10.8) X10*3/uL RBC (4.20-5.50) X10*6/uL Hgb (12.0-16.0) g/dl Hct (37.0-47.0) % MCV (80.0-98.0) fL MCH (27.0-33.0) pg MCHC (31.0-35.0) g/dl RDW (11.0-16.0) % Plt Count (160-400) X10*3/uL MPV (9.4-12.3) fL Immature Gran % (Auto) (0.0-0.4) % Neut % (Auto) (45-73) % Lymph % (Auto) (20-40) % [place] % (Auto) (2-11) % Eos % (Auto) (0-4) % Baso % (Auto) (0-2) % Lymph # (Auto) (1.2-4.9) X10*3/uL [place] # (Auto) (0.1-1.2) X10*3/uL Eos # (Auto) (0.0-0.4) X10*3/uL Baso # (Auto) (0.0-0.2) X10*3/uL Abs Immat Gran (auto) (0.00-0.03) X10*3/uL Absolute Neuts (auto) (2.0-8.3) x10*3/uL Absolute Nucleated RBC (0.0-0.012) X10*3/uL Nucleated RBC % (auto) (0.0-0.2) /100WBC Sodium (135-145) mmol/L Potassium (3.3-5.1) mmol/L Chloride (96-108) mmol/L Carbon Dioxide (22-29) mmol/L Anion Gap (12-20) BUN (9-16) mg/dL Creatinine (0.5-1.4) mg/dL Estim Creat Clear Calc Estimated GFR Random Glucose (60-115) mg/dL Calcium (8.4-10.2) mg/dL Magnesium (1.6-2.6) mg/dL Total Bilirubin (0.0-1.0) mg/dL Direct Bilirubin (0.0-0.5) mg/dL AST (5-31) U/L ALT (0-31) U/L Alkaline Phosphatase (39-117) U/L Total Protein (6.5-8.0) g/dL Albumin (3.5-5.0) g/dL Urine Color Yellow Urine Appearance Clear Urine pH 6.0 (5.0-9.0) Ur Specific [place] 1.010 (1.005-1.025) Urine Protein 30 (1+) H (Neg-Trace) mg/dL Urine Glucose (UA) Negative (Negative) mg/dL Urine Ketones Trace (Negative) mg/dL Urine Blood Negative (Negative) Urine Nitrite Negative (Negative) Ur Leukocyte Esterase Negative (Negative) Urine RBC 0-2 (0-2) /HPF Urine WBC 0-5 (0-5) /HPF Ur Squamous Epith Cells 0-2 (0-2) /HPF Urine Bacteria None Seen (None Seen) Hyaline Casts 0-2 (0-2) /LPF COVID-19 (LENNIE) Negative (Negative) COVID-19 Clin Com See Note Influenza Type A (ERIN) (Negative) Influenza Type B (ERIN) (Negative) Influenza A & B Note <FIORELLA Wiggins - Last Filed: 03/28/22 18:11> Lab Results 03/28/22 03/28/22 03/28/22 Range/Units 18:20 18:20 19:18 WBC 8.3 (4.8-10.8) X10*3/uL RBC 5.25 (4.20-5.50) X10*6/uL Hgb 14.4 (12.0-16.0) g/dl Hct 45.3 (37.0-47.0) % MCV 86.3 (80.0-98.0) fL MCH 27.4 (27.0-33.0) pg MCHC 31.8 (31.0-35.0) g/dl RDW 15.3 (11.0-16.0) % Plt Count 264 (160-400) X10*3/uL MPV 9.3 L (9.4-12.3) fL Immature Gran % (Auto) 0.4 (0.0-0.4) % Neut % (Auto) 69.5 (45-73) % Lymph % (Auto) 16.8 L (20-40) % [place] % (Auto) 8.9 (2-11) % Eos % (Auto) 3.7 (0-4) % Baso % (Auto) 0.7 (0-2) % Lymph # (Auto) 1.4 (1.2-4.9) X10*3/uL [place] # (Auto) 0.7 (0.1-1.2) X10*3/uL Eos # (Auto) 0.3 (0.0-0.4) X10*3/uL Baso # (Auto) 0.1 (0.0-0.2) X10*3/uL Abs Immat Gran (auto) 0.03 (0.00-0.03) X10*3/uL Absolute Neuts (auto) 5.8 (2.0-8.3) x10*3/uL Absolute Nucleated RBC 0.000 (0.0-0.012) X10*3/uL Nucleated RBC % (auto) 0.0 (0.0-0.2) /100WBC Sodium 136 (135-145) mmol/L Potassium 4.5 (3.3-5.1) mmol/L Chloride 101 (96-108) mmol/L Carbon Dioxide 20 L (22-29) mmol/L Anion Gap 20 (12-20) BUN 16 (9-16) mg/dL Creatinine 0.76 (0.5-1.4) mg/dL Estim Creat Clear Calc 54.7 Estimated GFR > 60 Random Glucose 208 H (60-115) mg/dL Calcium 9.8 (8.4-10.2) mg/dL Magnesium 1.9 (1.6-2.6) mg/dL Total Bilirubin 0.4 (0.0-1.0) mg/dL Direct Bilirubin 0.2 (0.0-0.5) mg/dL AST 18 (5-31) U/L ALT 11 (0-31) U/L Alkaline Phosphatase 67 D (39-117) U/L Total Protein 7.7 (6.5-8.0) g/dL Albumin 4.4 (3.5-5.0) g/dL Urine Color Urine Appearance Urine pH (5.0-9.0) Ur Specific [place] (1.005-1.025) Urine Protein (Neg-Trace) mg/dL Urine Glucose (UA) (Negative) mg/dL Urine Ketones (Negative) mg/dL Urine Blood (Negative) Urine Nitrite (Negative) Ur Leukocyte Esterase (Negative) Urine RBC (0-2) /HPF Urine WBC (0-5) /HPF Ur Squamous Epith Cells (0-2) /HPF Urine Bacteria (None Seen) Hyaline Casts (0-2) /LPF COVID-19 (LENNIE) (Negative) COVID-19 Clin Com Influenza Type A (ERIN) Negative (Negative) Influenza Type B (ERIN) Negative (Negative) Influenza A & B Note See Note 03/28/22 03/28/22 Range/Units 19:18 19:32 WBC (4.8-10.8) X10*3/uL RBC (4.20-5.50) X10*6/uL Hgb (12.0-16.0) g/dl Hct (37.0-47.0) % MCV (80.0-98.0) fL MCH (27.0-33.0) pg MCHC (31.0-35.0) g/dl RDW (11.0-16.0) % Plt Count (160-400) X10*3/uL MPV (9.4-12.3) fL Immature Gran % (Auto) (0.0-0.4) % Neut % (Auto) (45-73) % Lymph % (Auto) (20-40) % [place] % (Auto) (2-11) % Eos % (Auto) (0-4) % Baso % (Auto) (0-2) % Lymph # (Auto) (1.2-4.9) X10*3/uL [place] # (Auto) (0.1-1.2) X10*3/uL Eos # (Auto) (0.0-0.4) X10*3/uL Baso # (Auto) (0.0-0.2) X10*3/uL Abs Immat Gran (auto) (0.00-0.03) X10*3/uL Absolute Neuts (auto) (2.0-8.3) x10*3/uL Absolute Nucleated RBC (0.0-0.012) X10*3/uL Nucleated RBC % (auto) (0.0-0.2) /100WBC Sodium (135-145) mmol/L Potassium (3.3-5.1) mmol/L Chloride (96-108) mmol/L Carbon Dioxide (22-29) mmol/L Anion Gap (12-20) BUN (9-16) mg/dL Creatinine (0.5-1.4) mg/dL Estim Creat Clear Calc Estimated GFR Random Glucose (60-115) mg/dL Calcium (8.4-10.2) mg/dL Magnesium (1.6-2.6) mg/dL Total Bilirubin (0.0-1.0) mg/dL Direct Bilirubin (0.0-0.5) mg/dL AST (5-31) U/L ALT (0-31) U/L Alkaline Phosphatase (39-117) U/L Total Protein (6.5-8.0) g/dL Albumin (3.5-5.0) g/dL Urine Color Yellow Urine Appearance Clear Urine pH 6.0 (5.0-9.0) Ur Specific [place] 1.010 (1.005-1.025) Urine Protein 30 (1+) H (Neg-Trace) mg/dL Urine Glucose (UA) Negative (Negative) mg/dL Urine Ketones Trace (Negative) mg/dL Urine Blood Negative (Negative) Urine Nitrite Negative (Negative) Ur Leukocyte Esterase Negative (Negative) Urine RBC 0-2 (0-2) /HPF Urine WBC 0-5 (0-5) /HPF Ur Squamous Epith Cells 0-2 (0-2) /HPF Urine Bacteria None Seen (None Seen) Hyaline Casts 0-2 (0-2) /LPF COVID-19 (LENNIE) Negative (Negative) COVID-19 Clin Com See Note Influenza Type A (ERIN) (Negative) Influenza Type B (ERIN) (Negative) Influenza A & B Note <Ayanna Coles NP - Last Filed: 03/29/22 00:39> Independent Interpretation I performed an independent interpretation of an: EKG <Ayanna Coles NP - Last Filed: 03/29/22 00:39> Interpretation: Atrial fibrillation with premature ventricular or aberrantly conducted complexes Left axis deviation Nonspecific ST abnormality Abnormal ECG When compared with ECG of 19-DEC-2021 06:14, No significant change was found Vent. rate 78 BPM TN interval * ms QRS duration 94 ms QT/QTc 392/446 ms P-R-T axes * -49 35 28-MAR-2022 18:07:53 <Ayanna Coles NP - Last Filed: 03/29/22 00:39> Independent Historian Clinical information obtained from an independent historian. History obtained from or confirmed by: Spouse <Ayanna Coles NP - Last Filed: 03/29/22 00:39> External Record Review External record reviewed: Inpatient record, Outpatient record and Prior outpatient labs <Ayanna Coles NP - Last Filed: 03/29/22 00:39> Chronic Conditions Patient?s care impacted by: Diabetes and Hypertension <Ayanna Coles NP - Last Filed: 03/29/22 00:39> Discharge Plan Discharge Clinical Impression: Essential hypertension <FIORELLA Wiggins - Last Filed: 03/28/22 18:11> Patient Disposition: Home, Self-Care <FIORELLA Wiggins - Last Filed: 03/28/22 18:11> Instructions: Hypertension (ED) <FIORELLA Wiggins - Last Filed: 03/28/22 18:11> Additional Instructions: You were evaluated for hypertension. Please follow-up with your thread drawer, Dr. Callahan as an outpatient for blood pressure medication evaluation. Urinalysis was negative for UTI. COVID influenza RSV testing is negative. Your lab values are within normal limits. Your workup was relatively normal. Your blood pressure in the emergency department was 142/57. Please continue to take all medications as prescribed previously by your prior providers. Thank you for choosing this emergency department for evaluation. Please follow-up with primary care physician as needed. Return to the emergency department for any new, concerning, or worsening symptoms. <FIORELLA Wiggins - Last Filed: 03/28/22 18:11> Prescriptions: No Action ferrous fumarate [Ferrocite] 324 mg (106 mg iron) tablet 324 mg PO DAILY Qty: 90 3RF Eliquis 5 mg tablet 5 mg PO BID 90 Days Qty: 180 3RF metformin 1,000 mg tablet 1,000 mg PO BID Qty: 180 3RF Humalog KwikPen Insulin 200 unit/mL (3 mL) insulin pen 35 unit subcut BEDTIME Qty: 18 3RF calcium carbonate 500 mg calcium (1,250 mg) Tablet 500 mg PO BID magnesium 250 mg Tablet 500 mg PO DAILY@1700 estradiol [Estrace] 0.01 % (0.1 mg/gram) Cream 1 g VAGINAL MOWEFR insulin glargine [Lantus Solostar U-100 Insulin] 100 unit/mL (3 mL) Insulin Pen 20 unit SUBCUT BEDTIME metoprolol succinate 25 mg Tablet Extended Release 24 Hr 25 mg PO DAILY 30 Days Qty: 30 0RF Protocol: Hold for SBP/HR < HOLD for SBP < : 90 HOLD for HR < : 60 spironolactone 25 mg tablet 25 mg PO DAILY rosuvastatin 5 mg tablet 5 mg PO MOWEFR amlodipine 5 mg tablet 5 mg PO DAILY (DME) pen needle, diabetic [BD Ultra-Fine Mini Pen Needle] 31 gauge x 3/16 needle See Rx Instructions .Route Qty: 360 4RF Rx Instructions: As directed QID ac and hs acetaminophen 500 mg tablet 1,000 mg PO Q6H PRN <FIORELLA Wiggins - Last Filed: 03/28/22 18:11> Referrals: Geoff Callahan MD [Physician] - 2 weeks (Elevated blood pressures) <FIORELLA Wiggins - Last Filed: 03/28/22 18:11> Interventions: ED Discharge Assessment Last Done: 03/28/22 20:50 <FIORELLA Wiggins - Last Filed: 03/28/22 18:11> Discharge Date/Time: 03/28/22 20:50 <FIORELLA Wiggins - Last Filed: 03/28/22 18:11>
[2022-03-28 18:31] LABS: MANUAL DIFF FLAG NO
[2022-03-28 18:42] LABS: Basophils Absolute Auto 0.1 X10*3/uL (0.0-0.2); Basophils Percent Auto 0.7 % (0-2); Eosinophils Absolute Auto 0.3 X10*3/uL (0.0-0.4); Eosinophils Percent Auto 3.7 % (0-4); Hematocrit 45.3 % (37.0-47.0); Hemoglobin 14.4 g/dl (12.0-16.0); Imm Gran Abs Auto 0.03 X10*3/uL (0.00-0.03); Imm Gran Pct Auto 0.4 % (0.0-0.4); Lymphocytes Absolute Auto 1.4 X10*3/uL (1.2-4.9); Lymphocytes Percent Auto 16.8 % (20-40); Mean Corpuscular HGB Conc 31.8 g/dl (31.0-35.0); Mean Corpuscular Hemoglobin 27.4 pg (27.0-33.0); Mean Corpuscular Volume 86.3 fL (80.0-98.0); Mean Platelet Volume 9.3 fL (9.4-12.3); Monocytes Absolute Auto 0.7 X10*3/uL (0.1-1.2); Monocytes Percent Auto 8.9 % (2-11); Neutrophils Absolute Auto 5.8 x10*3/uL (2.0-8.3); Neutrophils Percent Auto 69.5 % (45-73); Platelet Count 264 X10*3/uL (160-400); Red Blood Count 5.25 X10*6/uL (4.20-5.50); Red Cell Distribution Width 15.3 % (11.0-16.0); White Blood Count 8.3 X10*3/uL (4.8-10.8)
[2022-03-28 18:55] LABS: Alanine Aminotransferase 11 U/L (0-31); Albumin Level 4.4 g/dL (3.5-5.0); Alkaline Phosphatase 67 U/L (39-117); Anion Gap 20 (12-20); Aspartate Amino Transferase 18 U/L (5-31); Bilirubin Direct 0.2 mg/dL (0.0-0.5); Bilirubin Total 0.4 mg/dL (0.0-1.0); Blood Urea Nitrogen 16 mg/dL (9-16); Calcium 9.8 mg/dL (8.4-10.2); Carbon Dioxide 20 mmol/L (22-29); Chloride 101 mmol/L (96-108); Creatinine Clr Calc Pharmacy 54.7; Estimated Glomerular Filt Rate > 60; Glucose Random 208 mg/dL (60-115); Magnesium 1.9 mg/dL (1.6-2.6); Potassium 4.5 mmol/L (3.3-5.1); Sodium 136 mmol/L (135-145); Total Protein 7.7 g/dL (6.5-8.0)
[2022-03-28 19:18] VITALS: BP 142/57; PULSE 86; RESP 16; O2SAT 96
[2022-03-28 19:38] LABS: COVID-19 Test Negative (Negative); IDNOW Serial# 16C4AD1C
[2022-03-28 19:40] LABS: IDNOW Serial# BCCEAD1C; Influenza A Negative (Negative); Influenza B2 Negative (Negative)
[2022-03-28 19:50] LABS: Appearance Urine Clear; Color Urine Yellow; Glucose Urine UA Negative (Negative); Leukocyte Esterase Urine Negative (Negative); Nitrite Urine Negative (Negative); UMIC TRIGGER UACC YES; Urine Blood Negative (Negative); Urine Ketones Trace mg/dL (Negative); Urine Protein 30 (1+) mg/dL (Neg-Trace)
[2022-03-28 19:55] LABS: Bacteria Urine None Seen (None Seen); Hyaline Casts Urine 0-2 /LPF (0-2); RBC Urine 0-2 /HPF (0-2); Squamous Epithelial Cell Urine 0-2 /HPF (0-2); WBC Urine 0-5 /HPF (0-5)
== END 2022-03-28 20:50 | disposition home or self-care (01) ==
PROVIDERS: Nurse Practitioner Family; Physician Assistant; Emergency Provider Internal Medicine; PCP Internal Medicine
DX: I10 Essential (primary) hypertension (principal); Z20.822 Contact with and (suspected) exposure to COVID-19; E11.9 Type 2 diabetes mellitus without complications; E78.5 Hyperlipidemia, unspecified; I48.0 Paroxysmal atrial fibrillation; Z79.4 Long term (current) use of insulin; Z79.02 Long term (current) use of antithrombotics/antiplatelets; Z79.899 Other long term (current) drug therapy; Z79.01 Long term (current) use of anticoagulants
CPT/HCPCS: 36415; 80048; 80076; 81001; 83735; 85025; 87502; 87635; 93005; 99283; 99284

== ENCOUNTER 2022-04-11 11:15 | Outpatient (REF) | payer MEDICARE, SELFPAY ==
[2022-04-11 15:25] LABS: Anion Gap 18 (12-20); Blood Urea Nitrogen 15 mg/dL (9-16); Calcium 9.7 mg/dL (8.4-10.2); Carbon Dioxide 26 mmol/L (22-29); Chloride 100 mmol/L (96-108); Estimated Glomerular Filt Rate > 60; Glucose Random 170 mg/dL (60-115); Potassium 4.7 mmol/L (3.3-5.1); Sodium 139 mmol/L (135-145)
== END 2022-04-11 11:16 | disposition home or self-care (01) ==
LOC: HO.HMGCLDS 11:15
PROVIDERS: PCP Internal Medicine; Visit Provider Internal Medicine
DX: I10 Essential (primary) hypertension (principal)
CPT/HCPCS: 36415; 80048

== ENCOUNTER 2022-04-20 06:09 | Day surgery (SDC) | payer MEDICARE, SELFPAY ==
[2022-04-20 06:44] VITALS: BP 171/83; PULSE 101; RESP 18; TEMP 36.6; O2SAT 95; BMI 27.0
[2022-04-20 07:01] VITALS: BMI 27.0
[2022-04-20 07:02] LABS: Glucose, Whole Blood 162 mg/dL (60-115)
--- NOTE | 2022-04-20 07:37 | HO.ANESPROP2 ---
HPI - Anesthesia Eval Consult details Narrative: 81 yr old female for upper endo for abd discomfort PMFSH Active Problems Active Problems: All Active Problems (Updated 03/28/22 @ 20:28 by Ayanna Coles NP) Kidney stone (Acute) Precordial chest pain (Acute) Paroxysmal atrial fibrillation (Acute) Bradycardia (Acute) Acute hyponatremia (Acute) Warfarin overdosage (Acute) Renal cyst (Acute) B12 deficiency (Acute) Nephrolithiasis (Acute) Pulmonary hypertension (Acute) Non-rheumatic mitral regurgitation (Acute) PVC (premature ventricular contraction) (Acute) Right nephrolithiasis (Acute) Compression deformity of vertebra (Acute) Early satiety (Acute) Microcytic anemia (Acute) Heartburn (Acute) Atrophic vaginitis (Acute) Osteopenia (Acute) Osteoarthritis of knees, bilateral (Acute) Essential hypertension (Acute) Dyslipidemia (Acute) Type 2 diabetes mellitus with diabetic neuropathy, with long-term current use of insulin (Acute) Current use of anticoagulant therapy (Acute) Past Medical History Medical History Atrophic vaginitis Cholelithiasis Compression deformity of vertebra Dyslipidemia Early satiety Essential hypertension Heartburn Microcytic anemia Non-rheumatic mitral regurgitation Osteoarthritis of knees, bilateral Osteopenia Paroxysmal atrial fibrillation Permanent atrial fibrillation Pulmonary hypertension Renal cyst Right nephrolithiasis Type 2 diabetes mellitus with diabetic neuropathy, 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 Son No problems noted. Daughter No problems noted. Family history of problems with anesthesia: No Surgical History Surgical History History of hysterectomy History of lobectomy of lung History of lumbar discectomy History of total right knee replacement (TKR) Lumbar radiculopathy History of Problems with Anesthesia: No Social History Social History Household Members: Spouse Housing: House Do you presently have visiting nurse or other home services: No Alcohol intake: never Patient Tobacco Use Status: Never used Tobacco e-Cigarette/Vaping Use: Never Used Use of substances other than those prescribed or required for medical reasons: No Are you DNR?: No Advance Directives: No Advance Directives Information Provided: Yes service: No Current occupational status: retired Cognitive needs: No Hearing needs: Yes Vision needs: Yes Meds Allergies Allergy/AdvReac Type Severity Reaction Status Date / Time adhesive tape [Adhesive Tape] Allergy Mild CONTACT Verified 03/06/22 10:19 DERMATITIS cephalexin [CEPHALEXIN] Allergy Unknown SWELLING Verified 03/06/22 10:19 latex [Latex] Allergy Unknown RASH Verified 03/06/22 10:19 Biaxin AdvReac Intermediate plapitation Verified 03/06/22 10:19 s bacitracin [From Cortisporin] AdvReac Mild EYE Verified 03/06/22 10:19 IRRITATION hydrocortisone AdvReac Mild EYE Verified 03/06/22 10:19 [From Cortisporin] IRRITATION neomycin [From Cortisporin] AdvReac Mild EYE Verified 03/06/22 10:19 IRRITATION flecainide [From Tambocor] AdvReac Unknown HEART Verified 03/06/22 10:19 RACING lisinopril [LISINOPRIL] AdvReac Unknown cough, Verified 03/06/22 10:19 nausea Sulfa (Sulfonamide AdvReac Unknown PALPITATION Verified 03/06/22 10:19 Antibiotics) S [SULFA(SULFONAMIDE ANTIBIOTICS)] Home Medications Medication Instructions Recorded Confirmed Last Taken Type calcium carbonate 500 mg calcium 500 mg PO BID 12/19/21 03/06/22 12/18/21 History (1,250 mg) tablet estradiol 0.01% (0.1 mg/gram) 1 g vaginal MOWEFR 12/19/21 03/06/22 Unknown History vaginal cream (Estrace) insulin glargine 100 unit/mL (3 20 unit subcut BEDTIME 12/19/21 03/06/22 12/18/21 History mL) subcutaneous pen (Lantus Solostar U-100 Insulin) magnesium 250 mg tablet 500 mg PO DAILY@1700 12/19/21 03/06/22 Unknown History acetaminophen 500 mg tablet 1,000 mg PO Q6H PRN 01/13/22 03/06/22 Unknown History rosuvastatin 5 mg tablet 5 mg PO MOWEFR 02/16/22 03/06/22 Unknown History spironolactone 25 mg tablet 25 mg PO DAILY 02/16/22 03/06/22 Unknown History Exam Exam Date and Time: April 20, 2022 0737 Height,Weight and Vital Signs: Height 5 ft 4.5 in Weight 72.575 kg Last Vital Signs Temp 97.8 F 04/20/22 06:44 Pulse 101 H 04/20/22 06:44 Resp 18 04/20/22 06:44 BP 171/83 H 04/20/22 06:44 Pulse Ox 95 04/20/22 06:44 O2 Del Method 04/20/22 06:44 Pertinent Lab Results Pertinent Lab Results: Laboratory Tests 04/20/22 06:55 POC Glucose 162 H Airway Mallampati Class: III TM Dist: <=3cm Heart: rrr Lungs: cta Assessment and Plan Assessment Anesthesia Assessment: Anesthesia Plan Discussed and Chart Reviewed Final Anesthetic Review Family History of Problems with Anesthesia: No History of Problems with Anesthesia: No ASA Class: III Final Preanesthetic Review: No Changes in Pt Med Stat, Meds/Allgs Chart Reviewed, Consent Obtained/Reviewed and Anes Risks/Benef Reviewed Patient Risk: Low Procedure Risk: Low Anesthetic Plan Anesthetic Plan: MAC: Disposition: Standard PACU
[2022-04-20 08:15] VITALS: BP 151/63; PULSE 89; RESP 17; TEMP 36.8; O2SAT 97
--- NOTE | 2022-04-20 08:25 | P.BOP_ITS ---
Brief Operative Note Date of Service: 04/20/22 Pre-op diagnosis: Abdominal pain Post-op diagnosis: other (Inflammatory gastric polyps, Polyp on major papilla, Hiatal hernia, Gastritis) Procedure: EGD with biopsies Surgeon: Chaz Mendez Anesthesia: MAC Was an Grinding Wheel Inspector used for this Procedure?: No Estimated blood loss (mL): 3.0 Pathology: other (A. Polyp on major papilla B. Gastric antrum) Condition: stable Disposition: PACU
[2022-04-20 08:30] VITALS: BP 164/81; PULSE 85; RESP 14; TEMP 37.1; O2SAT 94
[2022-04-20 08:45] VITALS: BP 156/72; PULSE 72; RESP 14; O2SAT 95
--- NOTE | 2022-04-20 11:49 | OP_ITS ---
SURGEON: Chaz Mendez MD INDICATIONS: The patient presents for evaluation of ongoing abdominal pain. Full consent has been obtained from her for this including risks of bleeding and perforation. PREOPERATIVE DIAGNOSIS: Abdominal pain. POSTOPERATIVE DIAGNOSIS: PROCEDURE PERFORMED: Esophagogastroduodenoscopy with biopsies. ESTIMATED BLOOD LOSS: COMPLICATIONS: ANESTHESIA: Monitored anesthesia care. ASSISTANTS: SPECIMENS: POSTOPERATIVE DIAGNOSES: Abdominal pain, inflammatory gastric polyps, gastritis, hiatal hernia, polypoid lesion on major papilla. DESCRIPTION OF PROCEDURE: The patient was placed in the left lateral decubitus position. The Olympus video gastroscope was passed in the posterior oropharynx and upper esophagus under direct vision. The scope was passed slowly to the distal esophagus. The gastroesophageal junction appeared normal at 38 cm. There was no sign of any esophagitis. There was a small hiatal hernia. The scope was entered into the stomach and advanced to pylorus. The duodenum was cannulated into the descending portion. The duodenal bulb appeared normal. In the descending duodenum on the major papilla was a villous-appearing polypoid lesion. The papillary orifice itself was not involved, and there was flow of bile coming from it. I did obtain 2 biopsies from the polypoid lesion itself. It was relatively friable. The remainder of the duodenum appeared normal. The scope was withdrawn back into the stomach. The gastric antrum had evidence of gastritis with erythema, edema, and some inflammatory appearing polyps. Biopsies were obtained. There was good peristalsis. There was no mass, no ulceration. In the proximal stomach, seen both in the forward viewing and retroflexed positions, along the greater curvature primarily, were multiple inflammatory appearing gastric polyps, which were quite friable when just probed with the biopsy forceps. Therefore, biopsies were not obtained as she will have to go back on her Eliquis. I do not think these represented any type of neoplasm. The scope was withdrawn back into the esophagus. The esophageal mucosa appeared normal. The scope was withdrawn from the patient. She tolerated the procedure well and was returned to the recovery area in stable condition. IMPRESSION: 1. Polypoid lesion on major papilla, status post biopsy. 2. Inflammatory gastric polyps. 3. Gastritis. 4. Hiatal hernia. PLAN: The results of the biopsies will be checked. She is currently on pantoprazole once a day. Given the findings, I gave her a prescription to use that twice a day, as well as a prescription to start Carafate 1 g t.i.d. She will resume her Eliquis in 48 hours and has been reminded to avoid all Asprin and NSAIDs fdc. She is scheduled for a HIDA scan in regard to find the gallstones and the abdominal pain. She will be seen in followup in the office. This has been discussed with her . MD LEIA Elizondo/ACACIA / [id number] MTDD
== END 2022-04-20 09:28 | disposition home or self-care (01) ==
PROVIDERS: PCP Internal Medicine; Visit Provider Internal Medicine
PROC: 0DJ08ZZ Inspection of Upper Intestinal Tract, Via Natural or Artificial Opening Endoscopic (ICD-10-PCS; CPT 43235; principal; 2022-04-20 07:30)
DX: K31.7 Polyp of stomach and duodenum (principal); K44.9 Diaphragmatic hernia without obstruction or gangrene; K29.70 Gastritis, unspecified, without bleeding; R10.9 Unspecified abdominal pain
CPT/HCPCS: 43239; 82947; 88305; 88342

== ENCOUNTER 2022-04-27 11:47 | Outpatient (REF) | payer MEDICARE, SELFPAY ==
--- NOTE | ~2022-04-27 | MM_ITS ---
EXAMINATION: MM SCREENING DIGITAL BREAST TOMOSYNTHESIS, BILATERAL CLINICAL INFORMATION: Screening. Asymptomatic. The lifetime risk of breast cancer based on the Tyrer-Cuzick Model is 1.2%. COMPARISON: Mammography: April 21, 2021 and studies dating back to February 23, 2015 TECHNIQUE: Digital breast tomosynthesis is performed in both the craniocaudal and mediolateral oblique views along with computer-aided detection (CAD). Synthesized 2D images are generated from the tomosynthesis. FINDINGS: The breasts are heterogeneously dense, which may obscure small masses (ACR BI-RADS breast composition Category c). There are no significant masses, abnormal calcifications, or other abnormalities. MM/MM tomosynthesis screening BI IMPRESSION: No significant changes from prior exam. ASSESSMENT: BI-RADS 1: Negative RECOMMENDATION: Routine annual mammography screening. This patient's information was entered into a reminder system with a target due date for their next mammogram.
== END 2022-04-27 11:48 | disposition home or self-care (01) ==
LOC: HO.MAMMO 11:47
PROVIDERS: PCP Internal Medicine; Visit Provider Internal Medicine
DX: Z12.31 Encounter for screening mammogram for malignant neoplasm of breast (principal)
CPT/HCPCS: 77063; 77067

== ENCOUNTER 2022-04-28 08:51 | Outpatient (AMB) | payer MEDICARE, SELFPAY ==
--- NOTE | 2022-04-28 09:06 | MHC.PC.OV ---
Vital Signs 04/28/22 09:07 Height 5 ft 4.5 in Weight 163 lb BMI 27.5 BP 146/80 H Blood Pressure Location Lt brachial Position Sitting Pulse 60 Pulse Source Pulse Oximeter Pulse Oximetry (%) 96 Oxygen Delivery Method Room Air Intake Visit Reasons: endoscopy follow up Intake Note: Pt is here today to f/u endoscopy Allergies latex (Latex) Allergy (Severe, Verified 02/09/25 08:40) RASH cephalexin (CEPHALEXIN) Allergy (Intermediate, Verified 02/09/25 08:40) SWELLING adhesive tape (Adhesive Tape) Allergy (Mild, Verified 02/09/25 08:40) CONTACT DERMATITIS empagliflozin (From Jardiance) Adverse Reaction (Severe, Verified 02/09/25 08:40) Dizziness flecainide (From Tambocor) Adverse Reaction (Severe, Verified 02/09/25 08:40) HEART RACING Biaxin Adverse Reaction (Intermediate, Verified 02/09/25 08:40) plapitations lisinopril (LISINOPRIL) Adverse Reaction (Intermediate, Verified 02/09/25 08:40) cough, nausea bacitracin (From Cortisporin) Adverse Reaction (Mild, Verified 02/09/25 08:40) EYE IRRITATION hydrocortisone (From Cortisporin) Adverse Reaction (Mild, Verified 02/09/25 08:40) EYE IRRITATION neomycin (From Cortisporin) Adverse Reaction (Mild, Verified 02/09/25 08:40) EYE IRRITATION nitrofurantoin Adverse Reaction (Verified 02/09/25 08:40) Loss of Appetite Tobacco use date assessed: 04/28/22 Fall risk assessment: 1 Fall in past year Last assessed Fall Risk: 04/28/22 [facility] Medical History Type 2 diabetes mellitus with diabetic neuropathy, with long-term current use of insulin History of CHF (congestive heart failure) Chronic combined systolic and diastolic CHF (congestive heart failure) Right nephrolithiasis Recurrent UTI (urinary tract infection) Hiatal hernia Gastritis Degenerative disc disease, thoracic Degenerative disc disease, lumbar [place] (hard of hearing) Wears hearing aid in both ears Uses walker Hx of cardiac pacemaker (10/06/23) Age-related osteoporosis with current pathological fracture, vertebra(e), initial encounter for fracture Compression fracture of lumbar spine, non-traumatic Nontraumatic compression fracture of thoracic vertebra Moderate aortic stenosis Diabetes mellitus Cholelithiasis Renal cyst Pulmonary hypertension Non-rheumatic mitral regurgitation Permanent atrial fibrillation Microcytic anemia Atrophic vaginitis Osteoarthritis of knees, bilateral Essential hypertension Dyslipidemia Surgical History History of cardiac radiofrequency ablation (RFA) Hx of cardiac catheterization History of esophagogastroduodenoscopy (EGD) (~10/2022) History of lumbar discectomy History of lobectomy of lung History of hysterectomy History of total right knee replacement (TKR) Lumbar radiculopathy Family History Father Diabetes mellitus Mother Diabetes mellitus Myocardial infarction Sister Cancer Sister No problems noted. Son No problems noted. Daughter No problems noted. Social History Household Members: Family Housing: House Are you a primary laboratory animal care veterinarian to a significant other at home: No Do you presently have visiting nurse or other home services: No Alcohol intake: never Patient Tobacco Use Status: Former Tobacco user Tobacco use type: Cigarette e-Cigarette/Vaping Use: Never Used Advance Directives Date on File: 06/20/23 service: No Current occupational status: retired Cognitive needs: No Hearing needs: Yes Vision needs: Yes Questionnaire PHQ-9 Over the last 2 weeks, how often have you been bothered by any of the following problems? 1. Little interest or pleasure in doing things: not at all 2. Feeling down, depressed, or hopeless: not at all 3. Trouble falling or staying asleep, or sleeping too much: not at all 4. Feeling tired or having little energy: not at all 5. Poor appetite or overeating: not at all 6. Feeling bad about yourself - or that you are a failure or have let yourself or your family down: not at all 7. Trouble concentrating on things, such as reading the newspaper or watching television: not at all 8. Moving or speaking so slowly that other people could have noticed. Or the opposite - being so fidgety or restless that you have been moving around a lot more than usual: not at all 9. Thoughts that you would be better off or of hurting yourself in some way: not at all Total score: 0 Source: Developed by Drs. Chaz Mayer, Lily Ruggiero, Aayush Severino and colleagues, with an educational melinda from [employer]. Thrive Questionnaire Declines Thrive assessment: No Date Thrive assessed: 04/28/22 I am a: Patient What is your living situation today?: I have a steady place to live Within the past 12 months, did the food you bought not last and you didn't have the money to get more?: Never true Within the past 12 months, did you worry whether your food would run out before you got money to buy more?: Never true Do you have trouble paying for medicines?: No Do you have trouble getting transportation to medical appointments?: No Do you have trouble paying your heating and electricity bill?: No Do you have trouble taking care of your child, family member or friend?: No Do you have trouble with day-to-day activities such as bathing, preparing meals, shopping, managing finances, etc.?: No Are you currently unemployed and looking for a job?: No Are you interested in more education?: No AUDIT C Alcohol Use Questionnaire (AUDIT-C) 1. How often do you have a drink containing alcohol?: Never Total Score: 0 INGRID-7 AMB Questionnaire INGRID-7 Date INGRID - 7 assessed: 04/28/22 Feeling nervous, anxious, or on edge: 0 = Not at all Not being able to stop or control worryin = Not at all Worrying too much about different things: 0 = Not at all Trouble relaxin = Not at all Being so restless that it is hard to sit still: 0 = Not at all Becoming easily annoyed or irritable: 0 = Not at all Feeling afraid as if something awful might happen: 0 = Not at all Total INGRID-7 score (0-4 normal; 5-9 mild; 10-14 moderate; 15-21 severe): 0 Source: Developed by Drs. Chaz Mayer, Lily Ruggiero, Aayush Severino and colleagues, with an educational melinda from [employer]. Physical exam (Primary Care) Vital Signs: Last Vital Signs Pulse 60 04/28/22 09:07 BP 146/80 H 04/28/22 09:07 Pulse Ox 96 04/28/22 09:07 Oxygen Delivery Method Room Air 04/28/22 09:07 BMI result Body Mass Index 27.5 Tobacco/Smoking Status: Tobacco use Status Tobacco use date assessed 04/28/22 04/28/22 09:15 Patient Tobacco Use Status Never used Tobacco 04/28/22 09:15 e-Cigarette/Vaping Use Never Used 04/28/22 09:15 PHQ-9: PHQ-9 Score PHQ-9: Total score 0 04/30/22 23:58 Thrive Assessment: Date of Thrive Assessment Date Thrive assessed 04/28/22 04/28/22 09:15 Coding Level of Care Code Admin Sign Off/No Billing Diagnoses Abdominal bloating R14.0
[2022-04-28 09:07] VITALS: BP 146/80; PULSE 60; O2SAT 96; BMI 27.5
== END 2022-04-28 10:34 | disposition home or self-care (01) ==
LOC: HO.HMGC 08:51
PROVIDERS: PCP Internal Medicine; Visit Provider Internal Medicine
DX: R14.0 Abdominal distension (gaseous) (principal)
CPT/HCPCS: 99499

== ENCOUNTER → 2022-05-05 07:29 | Outpatient (REF) | payer MEDICARE, SELFPAY ==
--- NOTE | ~2022-05-05 | NM_ITS ---
BILIARY TRACT IMAGING STUDY CLINICAL INDICATION: Epigastric pain, calculus of gallbladder without cholecystitis or obstruction. PROCEDURE: Scintillation camera images were obtained over the abdomen for an observation of 60 minutes following the intravenous administration of 5.0 millicuries technetium 99m Mebrofenin.. COMPARISON: No previous biliary scan is available for comparison. Abdominal ultrasound dated 12/18/[address] scan of the abdomen and pelvis dated 12/13/2021 are available for comparison.. FINDINGS: There is good concentration of activity in the liver by 5 minutes post injection. Biliary activity is well visualized by 20 minutes, and there is good visualization of small bowel activity by 35 minutes. The gallbladder is well visualized by 25 minutes. NM/NM hepatobiliary wo pharm IMPRESSION: Normal biliary scan. Visualization of the gallbladder is evidence of a patent cystic duct and strong evidence against the diagnosis of acute cholecystitis. The common bile duct is patent. Liver function appears normal.
== END ==
LOC: HO.NUCMED 07:29
PROVIDERS: Visit Provider Internal Medicine
DX: R10.13 Epigastric pain (principal); K80.20 Calculus of gallbladder without cholecystitis without obstruction
CPT/HCPCS: 78226; A9537

== ENCOUNTER 2022-05-10 12:32 | Outpatient (REF) | payer MEDICARE, SELFPAY ==
[2022-05-10 14:33] LABS: Appearance Urine Clear; Color Urine Yellow; Glucose Urine UA Negative (Negative); Leukocyte Esterase Urine Negative (Negative); Nitrite Urine Negative (Negative); PH 6.5 (5.0-9.0); Specific Gravity - Urine 1.015 (1.005-1.025); Urine Blood Negative (Negative); Urine Ketones Negative (Negative); Urine Protein Negative (Neg-Trace)
[2022-05-10 14:38] LABS: Bacteria Urine None Seen (None Seen); Hyaline Casts Urine 0-2 /LPF (0-2); RBC Urine 0-2 /HPF (0-2); Squamous Epithelial Cell Urine 0-2 /HPF (0-2); WBC Urine 0-5 /HPF (0-5)
[2022-05-10 15:33] LABS: Anion Gap 14 (12-20); Blood Urea Nitrogen 16 mg/dL (9-16); Calcium 9.7 mg/dL (8.4-10.2); Carbon Dioxide 30 mmol/L (22-29); Chloride 102 mmol/L (96-108); Estimated Glomerular Filt Rate > 60; Potassium 5.7 mmol/L (3.3-5.1); Sodium 140 mmol/L (135-145); Total Protein 6.8 g/dL (6.5-8.0)
[2022-05-10 16:36] LABS: Creatinine Urine 49.71 mg/dL; Microalbum/Creatinine Ratio Ur 72.4 ug/mg cr; Protein/Creatinine Ratio, Ur 0.18 (<0.2); Total Protein Urine Random 9 mg/dL (<12)
== END 2022-05-10 12:33 | disposition home or self-care (01) ==
LOC: HO.HMGCLDS 12:32
PROVIDERS: PCP Internal Medicine; Visit Provider Internal Medicine Nephrology
DX: N18.2 Chronic kidney disease, stage 2 (mild) (principal); R80.1 Persistent proteinuria, unspecified
CPT/HCPCS: 36415; 80051; 81001; 82043; 82310; 82565; 84155; 84156; 84520

== ENCOUNTER → 2022-05-29 12:52 | Outpatient (BNVA) | payer MEDICARE, SELFPAY | PROVIDERS: PCP Internal Medicine; Visit Provider Internal Medicine | DX: I48.21 Permanent atrial fibrillation (principal); I34.0 Nonrheumatic mitral (valve) insufficiency; I27.20 Pulmonary hypertension, unspecified; I10 Essential (primary) hypertension; R60.0 Localized edema | CPT/HCPCS: 99212 ==

== ENCOUNTER 2022-06-15 06:41 | Outpatient (REF) | payer MEDICARE, SELFPAY ==
[2022-06-15 11:12] LABS: MANUAL DIFF FLAG NO
[2022-06-15 11:23] LABS: Basophils Absolute Auto 0.1 X10*3/uL (0.0-0.2); Basophils Percent Auto 0.8 % (0-2); Eosinophils Absolute Auto 0.5 X10*3/uL (0.0-0.4); Eosinophils Percent Auto 7.7 % (0-4); Hematocrit 42.6 % (37.0-47.0); Hemoglobin 13.6 g/dl (12.0-16.0); Imm Gran Abs Auto 0.03 X10*3/uL (0.00-0.03); Imm Gran Pct Auto 0.5 % (0.0-0.4); Lymphocytes Absolute Auto 1.8 X10*3/uL (1.2-4.9); Lymphocytes Percent Auto 26.9 % (20-40); Mean Corpuscular HGB Conc 31.9 g/dl (31.0-35.0); Mean Corpuscular Volume 87.7 fL (80.0-98.0); Mean Platelet Volume 10.2 fL (9.4-12.3); Monocytes Absolute Auto 0.7 X10*3/uL (0.1-1.2); Monocytes Percent Auto 10.3 % (2-11); Neutrophils Absolute Auto 3.6 x10*3/uL (2.0-8.3); Neutrophils Percent Auto 53.8 % (45-73); Platelet Count 293 X10*3/uL (160-400); Red Blood Count 4.86 X10*6/uL (4.20-5.50); Red Cell Distribution Width 14.3 % (11.0-16.0); White Blood Count 6.6 X10*3/uL (4.8-10.8)
[2022-06-15 11:29] LABS: Estimated Average Glucose 154 mg/dL
[2022-06-15 11:31] LABS: Appearance Urine Clear; Color Urine Yellow; Glucose Urine UA Negative (Negative); Leukocyte Esterase Urine Negative (Negative); Nitrite Urine Negative (Negative); Specific Gravity - Urine <= 1.005 (1.005-1.025); Urine Blood Negative (Negative); Urine Ketones Negative (Negative); Urine Protein Negative (Neg-Trace)
[2022-06-15 11:35] LABS: Bacteria Urine None Seen (None Seen); Hyaline Casts Urine 0-2 /LPF (0-2); RBC Urine 0-2 /HPF (0-2); Squamous Epithelial Cell Urine 0-2 /HPF (0-2); WBC Urine 0-5 /HPF (0-5)
[2022-06-15 12:04] LABS: Creatinine Urine 13.95 mg/dL; Protein/Creatinine Ratio, Ur 0.65 (<0.2); Total Protein Urine Random 9 mg/dL (<12)
[2022-06-15 12:05] LABS: Creatinine Urine 13.95 mg/dL; Microalbum/Creatinine Ratio Ur 408.6 ug/mg cr
[2022-06-15 12:23] LABS: Alanine Aminotransferase 18 U/L (0-31); Anion Gap 12 (12-20); Aspartate Amino Transferase 16 U/L (5-31); Blood Urea Nitrogen 16 mg/dL (9-16); Calcium 9.4 mg/dL (8.4-10.2); Carbon Dioxide 32 mmol/L (22-29); Chloride 102 mmol/L (96-108); Cholesterol 192 mg/dL; Estimated Glomerular Filt Rate > 60; Glucose Fasting 170 mg/dL (60-99); HDL Cholesterol 50 mg/dL; LDL Cholesterol Calculated 126 mg/dl; Potassium 4.6 mmol/L (3.3-5.1); Sodium 141 mmol/L (135-145); Triglycerides 83 mg/dL
[2022-06-15 12:42] LABS: Folate 10.4 ng/mL (> or = 4.0); Vitamin B12 938 pg/mL (200-900); Vitamin D 25-OH Total 37.9 ng/mL (>30)
== END 2022-06-15 06:42 | disposition home or self-care (01) ==
LOC: HO.HMGCLDS 06:41
PROVIDERS: Absent Provider Internal Medicine Nephrology; PCP Internal Medicine; Visit Provider Internal Medicine
DX: E11.40 Type 2 diabetes mellitus with diabetic neuropathy, unspecified (principal); E53.8 Deficiency of other specified B group vitamins; E78.5 Hyperlipidemia, unspecified; M85.80 Other specified disorders of bone density and structure, unspecified site; R80.1 Persistent proteinuria, unspecified; I12.9 Hypertensive chronic kidney disease with stage 1 through stage 4 chronic kidney disease, or unspecified chronic kidney disease; E11.22 Type 2 diabetes mellitus with diabetic chronic kidney disease; N18.2 Chronic kidney disease, stage 2 (mild); Z79.4 Long term (current) use of insulin
CPT/HCPCS: 36415; 80048; 80061; 81001; 82043; 82306; 82607; 82746; 83036; 84156; 84450; 84460; 85025

== ENCOUNTER 2022-07-03 13:24 | Outpatient (REF) | payer MEDICARE, SELFPAY ==
[2022-07-03 14:43] LABS: Anion Gap 14 (12-20); Blood Urea Nitrogen 15 mg/dL (9-16); Calcium 9.7 mg/dL (8.4-10.2); Carbon Dioxide 29 mmol/L (22-29); Chloride 102 mmol/L (96-108); Estimated Glomerular Filt Rate > 60; Potassium 5.2 mmol/L (3.3-5.1); Sodium 140 mmol/L (135-145)
== END 2022-07-03 13:25 | disposition home or self-care (01) ==
LOC: HO.HMGCLDS 13:24
PROVIDERS: PCP Internal Medicine; Visit Provider Internal Medicine Nephrology
DX: E87.5 Hyperkalemia (principal)
CPT/HCPCS: 36415; 80051; 82310; 82565; 84520

== ENCOUNTER → 2022-08-21 12:18 | Outpatient (BNVA) | payer MEDICARE, SELFPAY | PROVIDERS: PCP Internal Medicine; Referring Provider Internal Medicine; Visit Provider Internal Medicine | DX: I48.21 Permanent atrial fibrillation (principal); I10 Essential (primary) hypertension; I27.20 Pulmonary hypertension, unspecified; R60.0 Localized edema | CPT/HCPCS: 99212 ==

== ENCOUNTER 2022-08-25 16:13 | Outpatient (REF) | payer MEDICARE, SELFPAY ==
[2022-08-25 17:46] LABS: Appearance Urine Clear; Color Urine Yellow; Glucose Urine UA 100 mg/dL (Negative); Leukocyte Esterase Urine Small (1+) (Negative); Nitrite Urine Negative (Negative); PH 5.5 (5.0-9.0); Specific Gravity - Urine <= 1.005 (1.005-1.025); UMIC TRIGGER UACC YES; Urine Blood Negative (Negative); Urine Ketones Negative (Negative); Urine Protein Trace mg/dL (Neg-Trace)
[2022-08-25 19:14] LABS: Bacteria Urine 1+ (None Seen); Hyaline Casts Urine 0-2 /LPF (0-2); RBC Urine 0-2 /HPF (0-2); Squamous Epithelial Cell Urine 0-2 /HPF (0-2); UACC Culture Trigger YES
== END 2022-08-25 16:14 | disposition home or self-care (01) ==
LOC: HO.LAB 16:13
PROVIDERS: Visit Provider Nurse Practitioner Acute Care
DX: R30.0 Dysuria (principal)
CPT/HCPCS: 81001; 87086

== ENCOUNTER 2022-08-27 08:31 | Emergency (ER) | payer MEDICARE, SELFPAY ==
[2022-08-27 08:31] VITALS: BP 165/75; PULSE 89; RESP 18; TEMP 36.7; O2SAT 98; BMI 28.5
[2022-08-27 08:58] LABS: MANUAL DIFF FLAG NO
[2022-08-27 08:59] LABS: Basophils Percent Auto 0.6 % (0-2); Eosinophils Absolute Auto 0.3 X10*3/uL (0.0-0.4); Eosinophils Percent Auto 4.5 % (0-4); Hematocrit 42.1 % (37.0-47.0); Hemoglobin 13.7 g/dl (12.0-16.0); Imm Gran Abs Auto 0.03 X10*3/uL (0.00-0.03); Imm Gran Pct Auto 0.4 % (0.0-0.4); Lymphocytes Absolute Auto 1.4 X10*3/uL (1.2-4.9); Lymphocytes Percent Auto 20.4 % (20-40); Mean Corpuscular HGB Conc 32.5 g/dl (31.0-35.0); Mean Corpuscular Hemoglobin 28.1 pg (27.0-33.0); Mean Corpuscular Volume 86.4 fL (80.0-98.0); Mean Platelet Volume 9.3 fL (9.4-12.3); Monocytes Absolute Auto 0.6 X10*3/uL (0.1-1.2); Monocytes Percent Auto 8.6 % (2-11); Neutrophils Absolute Auto 4.5 x10*3/uL (2.0-8.3); Neutrophils Percent Auto 65.5 % (45-73); Platelet Count 249 X10*3/uL (160-400); Red Blood Count 4.87 X10*6/uL (4.20-5.50); Red Cell Distribution Width 14.3 % (11.0-16.0); White Blood Count 6.9 X10*3/uL (4.8-10.8)
[2022-08-27 09:13] LABS: Alanine Aminotransferase 9 U/L (0-31); Albumin Level 4.1 g/dL (3.5-5.0); Alkaline Phosphatase 64 U/L (39-117); Anion Gap 15 (12-20); Aspartate Amino Transferase 13 U/L (5-31); Bilirubin Total 0.8 mg/dL (0.0-1.0); Blood Urea Nitrogen 15 mg/dL (9-16); Calcium 9.6 mg/dL (8.4-10.2); Carbon Dioxide 27 mmol/L (22-29); Chloride 102 mmol/L (96-108); Creatinine Clr Calc Pharmacy 56.2; Estimated Glomerular Filt Rate > 60; Glucose Random 214 mg/dL (60-115); Potassium 4.4 mmol/L (3.3-5.1); Sodium 140 mmol/L (135-145)
[2022-08-27 09:20] LABS: Troponin-I High Sensitivity 6.9 ng/L (<3.5-17.0)
[2022-08-27 09:43] LABS: Appearance Urine Clear; Color Urine Yellow; Glucose Urine UA Negative (Negative); Leukocyte Esterase Urine Negative (Negative); Nitrite Urine Negative (Negative); PH 7.5 (5.0-9.0); Urine Blood Negative (Negative); Urine Ketones 15 mg/dL (Negative); Urine Protein Trace mg/dL (Neg-Trace)
--- NOTE | 2022-08-27 10:18 | ED_ITS ---
HPI - General Adult General Chief complaint: General Medical Stated complaint: high bp Time Seen by Provider: 08/27/22 09:09 Source: patient Mode of arrival: ambulatory History of Present Illness HPI narrative: 82-year-old female who presents with known atrial fibrillation and is on anticoagulation and reports that she had high blood pressure without chest pain or shortness of breath and states that she has been having ongoing lighthead edness and I do note in the triage note that she reported blurry vision for over week but has also seen Dr. Callahan last week. I reviewed patient's blood pressure log. Related Data Home Medications Medication Instructions Recorded Confirmed calcium carbonate 500 mg calcium 500 mg PO BID 12/19/21 08/21/22 (1,250 mg) tablet estradiol 0.01% (0.1 mg/gram) 1 g vaginal MOWEFR 12/19/21 08/21/22 vaginal cream (Estrace) insulin glargine 100 unit/mL (3 20 unit subcut BEDTIME 12/19/21 08/21/22 mL) subcutaneous pen (Lantus Solostar U-100 Insulin) magnesium 250 mg tablet 500 mg PO DAILY@1700 12/19/21 08/21/22 rosuvastatin 5 mg tablet 5 mg PO MOWEFR 02/16/22 08/21/22 calcium citrate 315 mg 1 tab PO DAILY 04/28/22 08/21/22 calcium-vitamin D3 6.25 mcg (250 unit) tablet (Citracal + Vitamin D Maximum) coenzyme Q10 100 mg capsule 100 mg PO DAILY 04/28/22 08/21/22 (CoQ-10) docusate sodium 100 mg capsule 100 mg PO DAILY 04/28/22 08/21/22 (Stool Softener) mecobalamin (vitamin B12) 1,000 1,000 mcg sublingual DAILY 04/28/22 08/21/22 mcg disintegrating tablet,sublingual vitamins A,C,X-unxe-wtcevv 2,148 2 tab PO BID 04/28/22 08/21/22 mcg-113 mg-45 mg-17.4 mg tablet (PreserVision AREDS) famotidine 40 mg tablet 40 mg PO DAILY 05/29/22 08/21/22 Previous Rx's Medication Instructions Recorded pen needle, diabetic 31 gauge x #360 ea 02/17/2206/01 (BD Ultra-Fine Mini Pen Needle) metformin 1,000 mg tablet 1,000 mg PO BID #180 tabs 02/24/22 insulin lispro 200 unit/mL (3 mL) 35 unit (0.175 mL) subcut BEDTIME 03/15/22 subcutaneous pen (Humalog KwikPen #18 mL U-200 Insulin) ferrous fumarate 324 mg (106 mg 324 mg PO DAILY #90 tabs 08/03/22 iron) tablet (Ferrocite) amlodipine 5 mg tablet 5 mg PO DAILY #90 tabs 08/21/22 apixaban 5 mg tablet (Eliquis) 5 mg PO BID 90 days #180 tabs 08/21/22 hydrochlorothiazide 25 mg tablet 25 mg PO DAILY #90 tabs 08/21/22 losartan 50 mg tablet 50 mg PO DAILY #90 tabs 08/21/22 metoprolol succinate 25 mg 25 mg PO DAILY 90 days #90 tabs 08/21/22 tablet,extended release 24 hr Allergies Allergy/AdvReac Type Severity Reaction Status Date / Time adhesive tape [Adhesive Tape] Allergy Mild CONTACT Verified 08/25/22 16:11 DERMATITIS cephalexin [CEPHALEXIN] Allergy Unknown SWELLING Verified 08/25/22 16:11 latex [Latex] Allergy Unknown RASH Verified 08/25/22 16:11 Biaxin AdvReac Intermediate plapitation Verified 08/25/22 16:11 s bacitracin [From Cortisporin] AdvReac Mild EYE Verified 08/25/22 16:11 IRRITATION hydrocortisone AdvReac Mild EYE Verified 08/25/22 16:11 [From Cortisporin] IRRITATION neomycin [From Cortisporin] AdvReac Mild EYE Verified 08/25/22 16:11 IRRITATION flecainide [From Tambocor] AdvReac Unknown HEART Verified 08/25/22 16:11 RACING lisinopril [LISINOPRIL] AdvReac Unknown cough, Verified 08/25/22 16:11 nausea Sulfa (Sulfonamide AdvReac Unknown PALPITATION Verified 08/25/22 16:11 Antibiotics) S [SULFA(SULFONAMIDE ANTIBIOTICS)] Review of Systems Review of Systems: Pertinent positives and negatives as stated in HPI [facility] Past Medical History Source: nursing notes reviewed Medical History Atrophic vaginitis Cholelithiasis Compression deformity of vertebra Dyslipidemia Early satiety Essential hypertension Heartburn Microcytic anemia Non-rheumatic mitral regurgitation Osteoarthritis of knees, bilateral Osteopenia Paroxysmal atrial fibrillation Permanent atrial fibrillation Pulmonary hypertension Renal cyst Right nephrolithiasis Type 2 diabetes mellitus with diabetic neuropathy, 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 Son No problems noted. Daughter No problems noted. Social History Social History Household Members: Spouse Housing: House Do you presently have visiting nurse or other home services: No Alcohol intake: never Patient Tobacco Use Status: Never used Tobacco e-Cigarette/Vaping Use: Never Used Advance Directives: Yes Advance Directives Information Provided: Yes Advance Directives on File: No service: No Current occupational status: retired Cognitive needs: No Hearing needs: Yes Vision needs: Yes Physical Exam ED Vital Signs: Vital Signs - 24 hr 08/27/22 08:31 Temperature 98.1 F Pulse Rate 89 Respiratory Rate 18 Blood Pressure 165/75 H Pulse Oximetry 98 Oxygen Delivery Method Room Air BMI result Body Mass Index 28.5 VITAL SIGNS: Reviewed. GENERAL: Well developed, well nourished, in no acute distress. HEAD: Normocephalic/atraumatic EYES: PERRLA, EOMI EARS: Ext canals without abnormality NOSE: Nares patent bilateral OROPHARYNX: no oral lesions noted, posterior pharynx clear NECK: Supple, no adenopathy LUNGS: Normal breath sounds. No adventitious sounds or accessory muscle use. SpO2<98> CARDIOVASCULAR: Regular rate and rhythm without noted murmurs, no JVD bilateral lower 1+ ankle pitting edema ABDOMEN: Soft, non-tender, non-distended with bowel sounds. MUSCULOSKELETAL: No tenderness, deformities, or effusions noted on gross inspection. EXTREMITIES: No cyanosis, clubbing or edema. SKIN: Inspection of the skin reveals no rashes NEUROLOGIC: Alert and oriented x 4. Strength and sensation to light touch were grossly intact x 4. Medical Decision Making Medical Decision Making [facility] Narrative: 82-year-old female who presents with concerns regarding her blood pressure an ongoing lightheadedness but history is not significant for CHF exacerbation or chest pain. I reviewed all investigations and patient's lab work looks within normal limits, suspect patient is having some anxiety, I did review blood pressures here in the emergency room which are stable and appear to be well controlled, heart rate is well controlled. Patient denies any current neurologic symptoms, she is nonfocal on exam, and I feel that she is stable for discharge to home. Differential Diagnosis Please see the discussion above Lab Data Please see the discussion above 08/27/22 08:53 08/27/22 08:53 Labs: Lab Results 08/27/22 08/27/22 08/27/22 Range/Units 08:53 08:53 08:53 WBC 6.9 (4.8-10.8) X10*3/uL RBC 4.87 (4.20-5.50) X10*6/uL Hgb 13.7 (12.0-16.0) g/dl Hct 42.1 (37.0-47.0) % MCV 86.4 (80.0-98.0) fL MCH 28.1 (27.0-33.0) pg MCHC 32.5 (31.0-35.0) g/dl RDW 14.3 (11.0-16.0) % Plt Count 249 (160-400) X10*3/uL MPV 9.3 L (9.4-12.3) fL Immature Gran % (Auto) 0.4 (0.0-0.4) % Neut % (Auto) 65.5 (45-73) % Lymph % (Auto) 20.4 (20-40) % [place] % (Auto) 8.6 (2-11) % Eos % (Auto) 4.5 H (0-4) % Baso % (Auto) 0.6 (0-2) % Lymph # (Auto) 1.4 (1.2-4.9) X10*3/uL [place] # (Auto) 0.6 (0.1-1.2) X10*3/uL Eos # (Auto) 0.3 (0.0-0.4) X10*3/uL Baso # (Auto) 0.0 (0.0-0.2) X10*3/uL Abs Immat Gran (auto) 0.03 (0.00-0.03) X10*3/uL Absolute Neuts (auto) 4.5 (2.0-8.3) x10*3/uL Absolute Nucleated RBC 0.000 (0.0-0.012) X10*3/uL Nucleated RBC % (auto) 0.0 (0.0-0.2) /100WBC Sodium 140 (135-145) mmol/L Potassium 4.4 (3.3-5.1) mmol/L Chloride 102 (96-108) mmol/L Carbon Dioxide 27 (22-29) mmol/L Anion Gap 15 (12-20) BUN 15 (9-16) mg/dL Creatinine 0.74 (0.5-1.4) mg/dL Estim Creat Clear Calc 56.2 Estimated GFR > 60 Random Glucose 214 H (60-115) mg/dL Calcium 9.6 (8.4-10.2) mg/dL Total Bilirubin 0.8 (0.0-1.0) mg/dL AST 13 (5-31) U/L ALT 9 (0-31) U/L Alkaline Phosphatase 64 (39-117) U/L Troponin I High Sens 6.9 (<3.5-17.0) ng/L B-Natriuretic Peptide (<100) pg/mL Total Protein 7.0 (6.5-8.0) g/dL Albumin 4.1 (3.5-5.0) g/dL Urine Color Urine Appearance Urine pH (5.0-9.0) Ur Specific [place] (1.005-1.025) Urine Protein (Neg-Trace) mg/dL Urine Glucose (UA) (Negative) mg/dL Urine Ketones (Negative) mg/dL Urine Blood (Negative) Urine Nitrite (Negative) Ur Leukocyte Esterase (Negative) 08/27/22 08/27/22 Range/Units 08:53 09:37 WBC (4.8-10.8) X10*3/uL RBC (4.20-5.50) X10*6/uL Hgb (12.0-16.0) g/dl Hct (37.0-47.0) % MCV (80.0-98.0) fL MCH (27.0-33.0) pg MCHC (31.0-35.0) g/dl RDW (11.0-16.0) % Plt Count (160-400) X10*3/uL MPV (9.4-12.3) fL Immature Gran % (Auto) (0.0-0.4) % Neut % (Auto) (45-73) % Lymph % (Auto) (20-40) % [place] % (Auto) (2-11) % Eos % (Auto) (0-4) % Baso % (Auto) (0-2) % Lymph # (Auto) (1.2-4.9) X10*3/uL [place] # (Auto) (0.1-1.2) X10*3/uL Eos # (Auto) (0.0-0.4) X10*3/uL Baso # (Auto) (0.0-0.2) X10*3/uL Abs Immat Gran (auto) (0.00-0.03) X10*3/uL Absolute Neuts (auto) (2.0-8.3) x10*3/uL Absolute Nucleated RBC (0.0-0.012) X10*3/uL Nucleated RBC % (auto) (0.0-0.2) /100WBC Sodium (135-145) mmol/L Potassium (3.3-5.1) mmol/L Chloride (96-108) mmol/L Carbon Dioxide (22-29) mmol/L Anion Gap (12-20) BUN (9-16) mg/dL Creatinine (0.5-1.4) mg/dL Estim Creat Clear Calc Estimated GFR Random Glucose (60-115) mg/dL Calcium (8.4-10.2) mg/dL Total Bilirubin (0.0-1.0) mg/dL AST (5-31) U/L ALT (0-31) U/L Alkaline Phosphatase (39-117) U/L Troponin I High Sens (<3.5-17.0) ng/L B-Natriuretic Peptide 42 (<100) pg/mL Total Protein (6.5-8.0) g/dL Albumin (3.5-5.0) g/dL Urine Color Yellow Urine Appearance Clear Urine pH 7.5 (5.0-9.0) Ur Specific [place] 1.010 (1.005-1.025) Urine Protein Trace (Neg-Trace) mg/dL Urine Glucose (UA) Negative (Negative) mg/dL Urine Ketones 15 (Negative) mg/dL Urine Blood Negative (Negative) Urine Nitrite Negative (Negative) Ur Leukocyte Esterase Negative (Negative) Independent Interpretation I performed an independent interpretation of an: EKG Interpretation: Atrial fibrillation with occasional PVCs, HR-63, QRS/QTC is within normal limits. External Record Review External record reviewed: Prior outpatient labs Discharge Plan Discharge Clinical Impression: Hypertension Patient Disposition: Home, Self-Care Instructions: Low-Sodium Diet (ED), Hypertension (ED) Additional Instructions: 1. Resume all home medications as prescribed. 2. 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 Return to the ER for any worsening symptoms. Prescriptions: No Action metformin 1,000 mg tablet 1,000 mg PO BID Qty: 180 3RF Humalog KwikPen Insulin 200 unit/mL (3 mL) insulin pen 35 unit subcut BEDTIME Qty: 18 3RF ferrous fumarate [Ferrocite] 324 mg (106 mg iron) tablet 324 mg PO DAILY Qty: 90 1RF amlodipine 5 mg tablet 5 mg PO DAILY Qty: 90 3RF Eliquis 5 mg tablet 5 mg PO BID 90 Days Qty: 180 3RF losartan 50 mg tablet 50 mg PO DAILY Qty: 90 3RF metoprolol succinate 25 mg tablet extended release 24 hr 25 mg PO DAILY 90 Days Qty: 90 3RF Protocol: Hold for SBP/HR < HOLD for SBP < : 90 HOLD for HR < : 60 calcium carbonate 500 mg calcium (1,250 mg) Tablet 500 mg PO BID magnesium 250 mg Tablet 500 mg PO DAILY@1700 estradiol [Estrace] 0.01 % (0.1 mg/gram) Cream 1 g VAGINAL MOWEFR insulin glargine [Lantus Solostar U-100 Insulin] 100 unit/mL (3 mL) Insulin Pen 20 unit SUBCUT BEDTIME rosuvastatin 5 mg tablet 5 mg PO MOWEFR (DME) pen needle, diabetic [BD Ultra-Fine Mini Pen Needle] 31 gauge x 3/16 needle See Rx Instructions .Route Qty: 360 4RF Rx Instructions: As directed QID ac and hs PreserVision AREDS 2,148 mcg-113 mg-45 mg-17.4mg tablet 2 tab PO BID Rx Instructions: administer with AM and PM meals mecobalamin (vitamin B12) 1,000 mcg tablet,disintegrating 1,000 mcg sublingual DAILY Rx Instructions: place tablet under tongue and allow to dissolve for at least30 secs before swallowing coenzyme Q10 [CoQ-10] 100 mg capsule 100 mg PO DAILY calcium citrate-vitamin D3 [Citracal + D Maximum] 315 mg-6.25 mcg (250 unit) tablet 1 tab PO DAILY docusate sodium [Stool Softener] 100 mg capsule 100 mg PO DAILY famotidine 40 mg tablet 40 mg PO DAILY hydrochlorothiazide 25 mg tablet 25 mg PO DAILY Qty: 90 3RF Referrals: Patricia Nicole MD [Primary Care Provider] - Geoff Callahan MD [Physician] -
--- NOTE | 2022-08-27 10:26 | ECG_ITS ---
Test Reason : HYPERTENSION Blood Pressure : / mmHG Vent. Rate : 063 BPM Atrial Rate : 000 BPM P-R Int : 000 ms QRS Dur : 094 ms QT Int : 418 ms P-R-T Axes : 000 -45 033 degrees QTc Int : 427 ms Atrial fibrillation with premature ventricular or aberrantly conducted complexes Left axis deviation Abnormal ECG When compared with ECG of 28-MAR-2022 18:07, No significant change was found Referred By: Bernadine Tom Electronically Signed By:Guille Saini
[2022-08-27 10:37] LABS: B Type Natriuretic Peptide 42 pg/mL (<100)
[2022-08-27 11:01] VITALS: BP 144/71; PULSE 65; RESP 24; TEMP 36.9; O2SAT 95
== END 2022-08-27 11:11 | disposition home or self-care (01) ==
PROVIDERS: Emergency Provider Student in an Organized Health Care Education/Training Program; PCP Internal Medicine
DX: R06.02 Shortness of breath (principal); I10 Essential (primary) hypertension; I48.91 Unspecified atrial fibrillation; Z79.899 Other long term (current) drug therapy
CPT/HCPCS: 36415; 80053; 81003; 83880; 84484; 85025; 93005; 99283; 99284

== ENCOUNTER 2022-09-04 13:29 | Outpatient (AMB) | payer MEDICARE, SELFPAY ==
--- NOTE | 2022-09-04 13:31 | MHC.OFFVIS ---
Intake Intake Visit Reasons: 6m follow up/KUB Intake Note: Patient presents today for a 6mo follow-up ? Meds: None ? Allergies to Antibiotic: Cephalexin, Sulfa ? 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: No Accompanied by: Self / Same As Patient Allergies adhesive tape [Adhesive Tape] Allergy (Mild, Verified 09/04/22 14:00) CONTACT DERMATITIS cephalexin [CEPHALEXIN] Allergy (Unknown, Verified 09/04/22 14:00) SWELLING latex [Latex] Allergy (Unknown, Verified 09/04/22 14:00) RASH Biaxin Adverse Reaction (Intermediate, Verified 09/04/22 14:00) plapitations bacitracin [From Cortisporin] Adverse Reaction (Mild, Verified 09/04/22 14:00) EYE IRRITATION hydrocortisone [From Cortisporin] Adverse Reaction (Mild, Verified 09/04/22 14:00) EYE IRRITATION neomycin [From Cortisporin] Adverse Reaction (Mild, Verified 09/04/22 14:00) EYE IRRITATION flecainide [From Tambocor] Adverse Reaction (Unknown, Verified 09/04/22 14:00) HEART RACING lisinopril [LISINOPRIL] Adverse Reaction (Unknown, Verified 09/04/22 14:00) cough, nausea Sulfa (Sulfonamide Antibiotics) [SULFA(SULFONAMIDE ANTIBIOTICS)] Adverse Reaction (Unknown, Verified 09/04/22 14:00) PALPITATIONS HPI HPI Comments History of Present Illness Details Aminah is an 82-year-old female who presents to the office for 6-months follow-up for renal calculi. 09/04/22-- The patient denies hematuria or any other urinary symptoms. She was seen last by TREATING ENGINEER Alesia Godinez on 03/06/22---- Aminah is an 81-year-old female who is here for follow-up. She has history of kidney stones. Review of chart: OV- 03/06/11--She is here in follow-up post renal ultrasound. I have discussed ultrasound results with the patient. In review imaging she has a stable 8 mm right kidney stone. The patient states in the past she did have shockwave lithotripsy. She is not interested in any procedures at this time as the stone is not bothering her. The patient states that she fell about 3 months ago and has been having chronic lower back pain since, she is taking 1 Tylenol about every 6 hours. Therapeutic plan--- fluids encouraged, surveillance imaging. KUB in 6 months. Imagin02/15/22- renal us - right kidney stone stable - no hydro 12/13/21- CTKUB - right kidney 8 mm stone - 07/07 CT scan 8 mm proximal ureteric stone, 8 mm upper pole right stone - 08/06 renal ultrasound with 8 mm upper pole stone Intervention - 06/2020 ESWL right side 09/04/22--Evaluation today-- Blood: negative, leukocytes: negative. Renal US-- 02/15/22-- nonobstructive calculi in the mid pole of the right kidney. 09/04/22-Plan: KUB X-ray was ordered to be done today. Follow-up after a year or sooner if needed. Renal US prior was ordered. 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 Son No problems noted. Daughter No problems noted. Social History Household Members: Spouse Housing: House Do you presently have visiting nurse or other home services: No Alcohol intake: never Patient Tobacco Use Status: Never used Tobacco e-Cigarette/Vaping Use: Never Used service: No Current occupational status: retired Cognitive needs: No Hearing needs: Yes Vision needs: Yes Review of Systems Const All systems reviewed & are unremarkable except as noted in HPI and below Reports no additional complaints Eyes Reports no additional complaints ENT Reports no additional complaints Card Denies dyspnea Resp Denies cough and Denies dyspnea GI Reports no additional complaints Reports no additional complaints Musc Reports no additional complaints Skin/Breast Denies rash and Denies unusual bruising Neuro Reports no additional complaints Psych Reports no additional complaints Endo Reports no additional complaints Alejandro/Lymph Reports no additional complaints Aller/Immun Reports no additional complaints Physical Exam Const General: cooperative, healthy appearing and no acute distress Orientation/consciousness: patient oriented x3 Limitations: ambulation with walker HEENT Head: Yes normal to inspection, Yes normocephalic and Yes atraumatic Eyes Conjunctivae: conjunctivae normal Neck Neck: Yes normal visual inspection and Yes trachea midline Chest Chest palpation & inspection: normal inspection of the chest Resp Effort & Inspection: normal respiratory effort Cardio Rate: regular rate GI Inspection: Yes normal to inspection Skin General skin exam: no rashes or lesions noted Neuro General: patient oriented x3 Extrem General: No edema Psych Appearance: grossly normal Results AMB Urinalysis, Automated UA Leukoctes 0 Sofía/uL Last Edit by Trish Angulo [facility] on 09/04/22 13:47 UA Nitrite Negative Last Edit by Trish Angulo [facility] on 09/04/22 13:47 UA Urobilinogen 0.2 mg/dL Last Edit by Trish Angulo [facility] on 09/04/22 13:47 UA Protein 30 mg/dL Last Edit by Trish Angulo [facility] on 09/04/22 13:47 1+ Trish Angulo 09/04/22 13:47 UA pH 5.0 Last Edit by Trish Angulo [facility] on 09/04/22 13:47 UA Blood 0 Stewart/uL Last Edit by Trish Angulo [facility] on 09/04/22 13:47 UA Specific [place] 1.025 Last Edit by Trish Angulo [facility] on 09/04/22 13:47 UA Ketone Positive Last Edit by Trish Angulo [facility] on 09/04/22 13:47 UA Bilirubin 0 mg/dL Last Edit by Trish Angulo [facility] on 09/04/22 13:47 UA Glucose 0 mg/dL Last Edit by KEI Vaughan on 09/04/22 13:47 Results Reviewed Results Reviewed: Laboratory Last Values Urine pH (Auto) 5.0 09/04/22 13:45 Specific [place] (Auto) 1.025 09/04/22 13:45 Urine Protein (Auto) 30 mg/dL 09/04/22 13:45 Glucose (UA)(Auto) 0 mg/dL 09/04/22 13:45 Urine Ketones (Auto) Positive 09/04/22 13:45 Urine Blood (Auto) 0 Stewart/uL 09/04/22 13:45 Urine Nitrite (Auto) Negative 09/04/22 13:45 Urine Bilirubin (Auto) 0 mg/dL 09/04/22 13:45 Urine Urobilinogen (Auto) 0.2 mg/dL 09/04/22 13:45 Leukocyte Esterase (Auto) 0 Sofía/uL 09/04/22 13:45 Date of Service: 02/15/22 EXAMINATION: US RETROPERITONEAL LIMITED (RENAL ONLY) CLINICAL INFORMATION: Cyst of kidney, acquired. COMPARISON: Ultrasound abdomen limited dated dated 12/18/2021. CT abdomen and pelvis without intravenous contrast dated 12/13/2021. Bilateral renal ultrasound dated 07/21/2021. KUB dated 07/07/2020. TECHNIQUE: Real-time imaging of the kidneys.? FINDINGS: RIGHT KIDNEY: 10.2 x 5.1 x 4.9 cm (SAG x AP x TRV). The kidney is normal in size, contour, and echogenicity. Renal cortical thickness is normal. No focal parenchymal lesions or hydronephrosis. There is an echogenic stone in the mid pole measuring 0.7 x 0.3 x 0.5 cm. There is no caliectasis. An 8 mm radiopaque calculus was seen in the mid pole on the CT abdomen exam of 12/13/2021. LEFT KIDNEY: 10.5 x 5.1 x 5.6 cm (SAG x AP x TRV). The kidney is normal in size, contour, and echogenicity. Renal cortical thickness is normal. No renal calculi or hydronephrosis. There are anechoic cysts. Upper pole cysts measure 1.8 x 1.4 x 1.5 cm and 0.7 x 0.6 x 0.8 cm. A complex lower pole cyst measures 2.5 x 2.2 x 3.1 cm. A solitary cyst was visualized in the lower pole on the previous CT abdomen and pelvis exam. IMPRESSION: 1.? Nonobstructive echogenic stone mid pole right kidney. No caliectasis or hydronephrosis. 2.? Simple cysts upper pole and complex cyst lower pole left kidney. Assessment & Plan Assessment & Plan (1) Kidney stone: Code(s): N20.0 - Calculus of kidney Plan KUB X-ray was ordered to be done today. Follow-up after a year or sooner if needed. Renal US prior was ordered. Orders: Orders AMB Urinalysis Automated 09/04/22 Z13.9 - Encounter for screening, unspecified Patient Instructions: The patient had an opportunity to ask questions regarding treatment plan. All questions were answered. Imaging, Laboratory studies and physical exam results were discussed and reviewed in detail. No major barriers to understanding were identified. The patient expressed understanding and agreement with the above treatment plan. The patient is aware they should contact our office by phone for worsening of their current condition or the appearance of new symptoms. Compliance is encouraged with any medications and followup testing that is ordered. It is a privilege to be allowed the opportunity to participate in the urologic care of your patient. If you have any questions or concerns regarding treatment for the above conditions please do not hesitate to contact me. The office telephone contact is [phone]. This note is constructed in part using voice recognition software. While every effort has been made to ensure accuracy crime lab technician errors may have been included. Yours sincerely, Fili Maloney MD Coding Level of Care Code Est Pt Level 3 (61596) Diagnoses Kidney stone N20.0
== END 2022-09-04 14:01 | disposition home or self-care (01) ==
LOC: HO.HUSH 13:29
PROVIDERS: PCP Internal Medicine; Visit Provider Urology
DX: N20.0 Calculus of kidney (principal)
CPT/HCPCS: 99213

== ENCOUNTER 2022-09-04 13:29 | Outpatient (REF) | payer MEDICARE, SELFPAY ==
--- NOTE | ~2022-09-04 | XR_ITS ---
EXAMINATION: XR ABDOMEN KUB CLINICAL INFORMATION: Right renal calculus, 8 mm. COMPARISON: CT scan of 12/13/2021 and KUB of 07/07/2020. TECHNIQUE: AP view of the abdomen. FINDINGS: The bowel gas pattern is normal with no evidence of ileus or obstruction. There is a 2.4 cm diameter lamellated gallstone present. Just inferior to this, there is a 9 mm calcification which may represent a renal calculus within the lower pole. Multiple other calcifications are seen about the upper abdomen some of which appear to be related to calcified cartilage of the anterior ribs. No definite calcifications seen along the expected paths of the ureters. Multiple annie are seen about the right upper abdomen and chest. There appears be pleural-parenchymal scarring within the right lung. There is a stable sclerotic lesion seen within the right iliac bone. There is multilevel degenerative disc disease seen throughout the lower thoracic and lumbar spine. There are compression fractures seen involving the T11 and T12 vertebral bodies which are chronic. XR/XR KUB IMPRESSION: 1. Cholelithiasis. 2. Probable 8 mm calculus overlying the expected location of the right kidney.
== END 2022-09-04 13:30 | disposition home or self-care (01) ==
LOC: HO.XRAY 13:29
PROVIDERS: PCP Internal Medicine; Visit Provider Urology
DX: N20.0 Calculus of kidney (principal)
CPT/HCPCS: 74018; 99212

== ENCOUNTER 2022-11-28 13:14 | Outpatient (AMB) | payer MEDICARE, SELFPAY ==
--- NOTE | 2022-11-28 13:26 | A.OFFVIS_ITS ---
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 Accompanied by: Spouse Allergies adhesive tape [Adhesive Tape] Allergy (Mild, Verified 11/28/22 13:27) CONTACT DERMATITIS cephalexin [CEPHALEXIN] Allergy (Unknown, Verified 11/28/22 13:27) SWELLING latex [Latex] Allergy (Unknown, Verified 11/28/22 13:27) RASH Biaxin Adverse Reaction (Intermediate, Verified 11/28/22 13:27) plapitations bacitracin [From Cortisporin] Adverse Reaction (Mild, Verified 11/28/22 13:27) EYE IRRITATION hydrocortisone [From Cortisporin] Adverse Reaction (Mild, Verified 11/28/22 13:27) EYE IRRITATION neomycin [From Cortisporin] Adverse Reaction (Mild, Verified 11/28/22 13:27) EYE IRRITATION flecainide [From Tambocor] Adverse Reaction (Unknown, Verified 11/28/22 13:27) HEART RACING lisinopril [LISINOPRIL] Adverse Reaction (Unknown, Verified 11/28/22 13:27) cough, nausea Sulfa (Sulfonamide Antibiotics) [SULFA(SULFONAMIDE ANTIBIOTICS)] Adverse Reaction (Unknown, Verified 11/28/22 13:27) PALPITATIONS Medication List - Last Reconciled 11/28/22 by Geoff Callahan MD amlodipine 5 mg PO DAILY amoxicillin 1,000 mg PO BID apixaban (Eliquis) 5 mg PO BID 90 days calcium carbonate 500 mg PO BID calcium citrate-vitamin D3 315 mg-6.25 mcg (250 unit) (Citracal + Vitamin D Maximum) 1 tab PO DAILY coenzyme Q10 (CoQ-10) 100 mg PO DAILY docusate sodium (Stool Softener) 100 mg PO DAILY estradiol 0.01%(0.1mg/gram) (Estrace) 1 g vaginal MOWEFR famotidine 40 mg PO DAILY ferrous fumarate (Ferrocite) 324 mg PO DAILY hydrochlorothiazide 25 mg PO DAILY insulin glargine (Lantus Solostar U-100 Insulin) 20 units (0.2 mL) subcut BEDTIME insulin lispro (Humalog KwikPen U-200 Insulin) 35 units (0.175 mL) subcut BEDTIME losartan 50 mg PO DAILY magnesium 500 mg PO DAILY@1700 mecobalamin (vitamin B12) 1,000 mcg sublingual DAILY metformin 1,000 mg PO BID metoprolol succinate ER 25 mg See Protocol PO DAILY 90 days pen needle, diabetic (BD Ultra-Fine Mini Pen Needle) As directed QID ac and hs rosuvastatin 5 mg PO MOWEFR 90 days vitamins A,C,Z-nhzp-rmkbhm 2,148 mcg-113 mg-45 mg-17.4mg (PreserVision AREDS) 2 tabs PO BID HPI HPI Comments History of Present Illness Details Aminah returns for follow-up regarding atrial fibrillation and hypertension. She is maintained on beta-blockers for rate control. In the past, she was also on digoxin but due to significant bradycardia that was stopped. Since last seen, no new issues from cardiac. Seems to be getting along okay. 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 Son No problems noted. Daughter No problems noted. Social History Household Members: Spouse Housing: House Do you presently have visiting nurse or other home services: No Alcohol intake: never Patient Tobacco Use Status: Never used Tobacco e-Cigarette/Vaping Use: Never Used service: No Current occupational status: retired Cognitive needs: No Hearing needs: Yes Vision needs: Yes Review of Systems Const Denies weakness ENT Denies dizziness Card Denies chest pain, Denies chest pain with activity, Denies syncope, Denies rapid heart rate, Denies pedal edema, Denies edema, Denies leg edema, Denies lightheadedness, Denies palpitations, Denies dyspnea, Denies dyspnea on exertion and Denies orthopnea Resp Denies cough, Denies dyspnea and Denies dyspnea on exertion GI Denies hematochezia and Denies change in stool character Musc Denies abnormal gait, Denies muscle cramps, Denies muscle weakness, Denies numbness, Denies radiating pain into limb and Denies tingling Neuro Denies abnormal gait, Denies dizziness, Denies syncope, Denies numbness, Denies tingling and Denies weakness Endo Denies palpitations Physical Exam Vital Signs: Last Vital Signs Pulse 65 11/28/22 13:27 BP 130/72 11/28/22 13:27 BMI result Body Mass Index 27.1 Const General: comfortable and no acute distress Orientation/consciousness: patient oriented x3 HEENT Other: Unremarkable Head: Yes normal to inspection Neck Neck: Yes normal visual inspection Chest Chest palpation & inspection: normal inspection of the chest Resp Other: few basal crackles Cardio Palpation: normal PMI Heart sounds: S1 normal heart sound present, S2 normal heart sound present, no gallops, no murmurs and no rubs GI Palpation (GI): Soft to palpation Back/Spine/Pelvis Other: unremarkable Skin General skin exam: no rashes or lesions noted Neuro General: patient oriented x3 Extrem General: Yes normal to inspection Psych Mental Status: mental status grossly normal Assessment & Plan Assessment & Plan (1) Permanent atrial fibrillation: Code(s): I48.21 - Permanent atrial fibrillation Plan: Continue metoprolol/Eliquis. No changes. (2) Essential hypertension: Code(s): I10 - Essential (primary) hypertension Plan: Home blood pressure diary reviewed. Some blood pressures are in the 120s to 130s but some others go up to the 150s and 160s. Diastolics generally okay. Current regimen includes losartan/amlodipine/hydrochlorothiazide. She has a history of hyperkalemia and hence losartan can be kept at the same dose. With regard to the amlodipine, she takes 5 mg daily. There has been issues with increased leg swelling in the past with higher doses. Hence she can take an extra 5 mg only on days when the blood pressure goes too high into the 150s extra. Other days, just take amlodipine 5 mg daily. We discussed this in detail today. (3) Pulmonary hypertension: Code(s): I27.20 - Pulmonary hypertension, unspecified Plan: Moderate pulmonary hypertension on the last echocardiogram. Likely all from atrial fibrillation as well as left heart dysfunction. No specific management for this. (4) Leg edema: Code(s): R60.0 - Localized edema Plan: Nothing too prominent today. Suspect multifactorial. Some combination of dependent edema, possible heart failure, amlodipine effect. Plan Discussed with who came for appointment. Coding Level of Care Code Est Pt Level 4 (27604) Diagnoses Permanent atrial fibrillation I48.21 Essential hypertension I10 Pulmonary hypertension I27.20 Leg edema R60.0
[2022-11-28 13:27] VITALS: BP 130/72; PULSE 65; BMI 27.1
== END 2022-11-28 13:51 | disposition home or self-care (01) ==
PROVIDERS: PCP Internal Medicine; Referring Provider Internal Medicine; Visit Provider Internal Medicine
DX: I48.21 Permanent atrial fibrillation (principal); I10 Essential (primary) hypertension; I27.20 Pulmonary hypertension, unspecified; R60.0 Localized edema
CPT/HCPCS: 99214

== ENCOUNTER → 2022-11-28 13:14 | Outpatient (BNVA) | payer MEDICARE, SELFPAY | PROVIDERS: PCP Internal Medicine; Referring Provider Internal Medicine; Visit Provider Internal Medicine | DX: I48.21 Permanent atrial fibrillation (principal); I10 Essential (primary) hypertension; I27.20 Pulmonary hypertension, unspecified; R60.0 Localized edema; Z79.01 Long term (current) use of anticoagulants; Z79.899 Other long term (current) drug therapy | CPT/HCPCS: 99212 ==

== ENCOUNTER 2022-12-07 12:57 | Outpatient (AMB) | payer MEDICARE, SELFPAY ==
--- NOTE | 2022-12-07 12:57 | A.OFFPC_ITS ---
Vital Signs 12/07/22 13:02 Height 5 ft 4 in Weight 158 lb BMI 27.1 BP 128/80 Blood Pressure Location Lt brachial Position Sitting Pulse 92 Pulse Source Pulse Oximeter Pulse Oximetry (%) 96 Oxygen Delivery Method Room Air Intake Visit Reasons: ?UTI Intake Note: Patient is here today c/o UTI sx's Allergies adhesive tape [Adhesive Tape] Allergy (Mild, Verified 12/07/22 13:25) CONTACT DERMATITIS cephalexin [CEPHALEXIN] Allergy (Unknown, Verified 12/07/22 13:25) SWELLING latex [Latex] Allergy (Unknown, Verified 12/07/22 13:25) RASH Biaxin Adverse Reaction (Intermediate, Verified 12/07/22 13:25) plapitations bacitracin [From Cortisporin] Adverse Reaction (Mild, Verified 12/07/22 13:25) EYE IRRITATION hydrocortisone [From Cortisporin] Adverse Reaction (Mild, Verified 12/07/22 13:25) EYE IRRITATION neomycin [From Cortisporin] Adverse Reaction (Mild, Verified 12/07/22 13:25) EYE IRRITATION flecainide [From Tambocor] Adverse Reaction (Unknown, Verified 12/07/22 13:25) HEART RACING lisinopril [LISINOPRIL] Adverse Reaction (Unknown, Verified 12/07/22 13:25) cough, nausea Sulfa (Sulfonamide Antibiotics) [SULFA(SULFONAMIDE ANTIBIOTICS)] Adverse Reaction (Unknown, Verified 12/07/22 13:25) PALPITATIONS Medication List - Last Reconciled 12/07/22 by Patricia Nicole MD amlodipine 5 mg PO DAILY apixaban (Eliquis) 5 mg PO BID 90 days calcium carbonate 500 mg PO BID calcium citrate-vitamin D3 315 mg-6.25 mcg (250 unit) (Citracal + Vitamin D Maximum) 1 tab PO DAILY coenzyme Q10 (CoQ-10) 100 mg PO DAILY docusate sodium (Stool Softener) 100 mg PO DAILY estradiol 0.01%(0.1mg/gram) (Estrace) 1 g vaginal MOWEFR famotidine 40 mg PO DAILY ferrous fumarate (Ferrocite) 324 mg PO DAILY hydrochlorothiazide 25 mg PO DAILY insulin glargine (Lantus Solostar U-100 Insulin) 20 units (0.2 mL) subcut BEDTIME insulin lispro (Humalog KwikPen U-200 Insulin) 35 units (0.175 mL) subcut BEDTIME losartan 50 mg PO DAILY magnesium 500 mg PO DAILY@1700 mecobalamin (vitamin B12) 1,000 mcg sublingual DAILY metformin 1,000 mg PO BID metoprolol succinate ER 25 mg See Protocol PO DAILY 90 days nitrofurantoin monohyd/m-cryst 100 mg 100 mg PO Q12H 10 days pen needle, diabetic (BD Ultra-Fine Mini Pen Needle) As directed QID ac and hs rosuvastatin 5 mg PO MOWEFR 90 days vitamins A,C,G-bqfm-bkbecg 2,148 mcg-113 mg-45 mg-17.4mg (PreserVision AREDS) 2 tabs PO BID Tobacco use date assessed: 12/07/22 Last assessed Fall Risk: 12/07/22 Dental Screening Dental Screen Date: 12/07/22 HPI ?UTI HPI Details 82-year-old lady here today complaining of urinary frequency, accompanied by he lower abdominal cramping, and urgency present now for the last 3 days. No accompanying fever, no chills, no nausea vomiting or back pain reported. 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 Son No problems noted. Daughter No problems noted. Social History Household Members: Spouse Housing: House Do you presently have visiting nurse or other home services: No Alcohol intake: never Patient Tobacco Use Status: Never used Tobacco e-Cigarette/Vaping Use: Never Used service: No Current occupational status: retired Cognitive needs: No Hearing needs: Yes Vision needs: Yes Questionnaire Thrive Questionnaire Date Thrive assessed: 04/28/22 AUDIT C Alcohol Use Questionnaire (AUDIT-C) 3. How often do you have six or more drinks on one occasion?: Never Total Score: 0 Score Reviewed/Action Taken: Yes INGRID-7 AMB Questionnaire INGRID-7 Date INGRID - 7 assessed: 04/28/22 Source: Developed by Drs. Chaz Mayer, Lily Ruggiero, Aayush Severino and colleagues, with an educational melinda from [employer]. Review of Systems Const All systems reviewed & are unremarkable except as noted in HPI and below Physical exam (Primary Care) Vital Signs: Last Vital Signs Pulse 92 12/07/22 13:02 BP 128/80 12/07/22 13:02 Pulse Ox 96 12/07/22 13:02 Oxygen Delivery Method Room Air 12/07/22 13:02 BMI result Body Mass Index 27.1 Tobacco/Smoking Status: Tobacco use Status Tobacco use date assessed 12/07/22 12/07/22 13:04 Patient Tobacco Use Status Never used Tobacco 12/07/22 12:58 e-Cigarette/Vaping Use Never Used 12/07/22 12:58 Thrive Assessment: Date of Thrive Assessment Date Thrive assessed 04/28/22 12/07/22 12:58 Const Other: Alert oriented x3, no acute distress noted ambulatory with walker, accompanying patient HENMT Mouth: Normal oral and palatal mucosa present and moist mucous membranes GI Other: Normal bowel sounds, soft, nontender, with no mass palpated General: Yes no CVA tenderness Back/Spine/Pelvis Back: no CVA tenderness Results AMB Urinalysis, Automated UA Leukoctes 500 Sofía/uL Last Edit by Shaunna Hernandez CMA on 12/07/22 13:12 UA Nitrite Positive Last Edit by Shaunna Hernandez CMA on 12/07/22 13:12 UA Urobilinogen 0.2 mg/dL Last Edit by Shaunna Hernandez CMA on 12/07/22 13:12 UA Protein 0 mg/dL Last Edit by Shaunna Hernandez CMA on 12/07/22 13:12 UA pH 6.0 Last Edit by Shaunna Hernandez CMA on 12/07/22 13:12 UA Blood 10 Stewart/uL Last Edit by Shaunna Hernandez CMA on 12/07/22 13:12 UA Specific [place] 1.010 Last Edit by Shaunna Hernandez CMA on 12/07/22 13:12 UA Ketone Negative Last Edit by Shaunna Hernandez CMA on 12/07/22 13:12 UA Bilirubin 0 mg/dL Last Edit by Shaunna Hernandez CMA on 12/07/22 13:12 UA Glucose 0 mg/dL Last Edit by Shaunna Hernandez CMA on 12/07/22 13:12 Results Reviewed Results Reviewed: Laboratory Last Values Urine pH (Auto) 6.0 12/07/22 13:06 Specific [place] (Auto) 1.010 12/07/22 13:06 Urine Protein (Auto) 0 mg/dL 12/07/22 13:06 Glucose (UA)(Auto) 0 mg/dL 12/07/22 13:06 Urine Ketones (Auto) Negative 12/07/22 13:06 Urine Blood (Auto) 10 Stewart/uL 12/07/22 13:06 Urine Nitrite (Auto) Positive 12/07/22 13:06 Urine Bilirubin (Auto) 0 mg/dL 12/07/22 13:06 Urine Urobilinogen (Auto) 0.2 mg/dL 12/07/22 13:06 Leukocyte Esterase (Auto) 500 Sofía/uL 12/07/22 13:06 Assessment and Plan Assessment & Plan (1) Urinary tract infection: Code(s): N39.0 - Urinary tract infection, site not specified Plan: Stay well hydrated with water, prescription empirically sent for nitrofurantoin 100 mg per capsule to take 1 every 12 hours with food time 10 days. Will wait for your culture and sensitivity results to be back and change treatment accordingly. Orders: Orders AMB Urinalysis Automated Today Z13.9 - Encounter for screening, unspecified Medications: New nitrofurantoin monohyd/m-cryst 100 mg must administer with a meal/food 100 mg PO Q12H 10 days 20 caps 0RF Coding Level of Care Code Est Pt Level 3 (32819) Diagnoses Urinary tract infection N39.0
[2022-12-07 13:02] VITALS: BP 128/80; PULSE 92; O2SAT 96; BMI 27.1
== END 2022-12-07 14:28 | disposition home or self-care (01) ==
PROVIDERS: PCP Internal Medicine; Visit Provider Internal Medicine
DX: N39.0 Urinary tract infection, site not specified (principal); R35.0 Frequency of micturition
CPT/HCPCS: 81003; 99213

== ENCOUNTER 2022-12-07 17:03 | Outpatient (REF) | payer MEDICARE, SELFPAY ==
[2022-12-07 17:18] LABS: Appearance Urine Cloudy; Color Urine Yellow; Glucose Urine UA Negative (Negative); Leukocyte Esterase Urine Large (3+) (Negative); Nitrite Urine Positive (Negative); PH 6.5 (5.0-9.0); UMIC TRIGGER UACC YES; Urine Blood Trace (Negative); Urine Ketones Negative (Negative); Urine Protein Trace mg/dL (Neg-Trace)
[2022-12-07 17:23] LABS: Bacteria Urine 4+ (None Seen); Hyaline Casts Urine 0-2 /LPF (0-2); RBC Urine 0-2 /HPF (0-2); Squamous Epithelial Cell Urine 0-2 /HPF (0-2); UACC Culture Trigger YES; WBC Urine >50 /HPF (0-5)
== END 2022-12-07 17:04 | disposition home or self-care (01) ==
LOC: HO.LNP 17:03
PROVIDERS: Visit Provider Internal Medicine
DX: R35.0 Frequency of micturition (principal)
CPT/HCPCS: 81001; 87086; 87088; 87186

== ENCOUNTER 2022-12-09 09:21 | Outpatient (AMB) | payer MEDICARE, SELFPAY ==
[2022-12-09 09:57] VITALS: BP 126/80; PULSE 84; TEMP 36.7; O2SAT 96; BMI 27.1
--- NOTE | 2022-12-09 09:57 | AM.OFFWIN_ITS ---
Intake Vital Signs 12/09/22 09:57 Height 5 ft 4 in Weight 158 lb BMI 27.1 BP 126/80 Blood Pressure Location Rt brachial Position Sitting Pulse 84 Pulse Source Pulse Oximeter Temp 98.0 F Temp Source Temporal Artery Scan Pulse Oximetry (%) 96 Intake Visit Reasons: EST/urine spes? per DR Joel Intake Note: pt is here to give urine specimen per dr joel (PCP). Patient Tobacco Use Status: Never used Tobacco Allergies adhesive tape [Adhesive Tape] Allergy (Mild, Verified 12/09/22 09:58) CONTACT DERMATITIS cephalexin [CEPHALEXIN] Allergy (Unknown, Verified 12/09/22 09:58) SWELLING latex [Latex] Allergy (Unknown, Verified 12/09/22 09:58) RASH Biaxin Adverse Reaction (Intermediate, Verified 12/09/22 09:58) plapitations bacitracin [From Cortisporin] Adverse Reaction (Mild, Verified 12/09/22 09:58) EYE IRRITATION hydrocortisone [From Cortisporin] Adverse Reaction (Mild, Verified 12/09/22 09:58) EYE IRRITATION neomycin [From Cortisporin] Adverse Reaction (Mild, Verified 12/09/22 09:58) EYE IRRITATION flecainide [From Tambocor] Adverse Reaction (Unknown, Verified 12/09/22 09:58) HEART RACING lisinopril [LISINOPRIL] Adverse Reaction (Unknown, Verified 12/09/22 09:58) cough, nausea Sulfa (Sulfonamide Antibiotics) [SULFA(SULFONAMIDE ANTIBIOTICS)] Adverse Reaction (Unknown, Verified 12/09/22 09:58) PALPITATIONS Do you need a note to return to daycare/school/sports/work: No HPI EST/urine spes? per DR Joel HPI Details Patient is an 82-year-old female comes to the walk-in clinic after being dosed with an urinary tract infection by her primary care a few days ago. Apparently she had been put on nitrofurantoin for it, and states that her symptoms were beginning to improve, however she soon developed nausea and shortness of breath, which she attributed to the medication, and it was changed to amoxicillin. She just started with 2 doses of this, and reports for repeat urine testing. She feels a little better than she initially had, however she states that she still has urinary frequency. She denies weakness or dizziness, malaise or myalgias, nausea vomiting or diarrhea, abdominal pain, flank pain or back pain, gross hematuria, urinary emptying issues, chest pain or shortness of breath, or other significant associated symptoms [facility] Medical History (Updated 12/07/22 @ 13:26 by Patricia Nicole MD) Urinary tract infection Paroxysmal atrial fibrillation Cholelithiasis Renal cyst Pulmonary hypertension Non-rheumatic mitral regurgitation Permanent atrial fibrillation Right nephrolithiasis Compression deformity of vertebra Early satiety Microcytic anemia Heartburn Atrophic vaginitis Osteopenia Osteoarthritis of knees, bilateral Essential hypertension Dyslipidemia Type 2 diabetes mellitus with kidney complication, 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 Son No problems noted. Daughter No problems noted. Social History Household Members: Spouse Housing: House Do you presently have visiting nurse or other home services: No Alcohol intake: never Patient Tobacco Use Status: Never used Tobacco e-Cigarette/Vaping Use: Never Used service: No Current occupational status: retired Cognitive needs: No Hearing needs: Yes Vision needs: Yes Review of Systems Const All systems reviewed & are unremarkable except as noted in HPI and below Physical Exam Vital Signs: Last Vital Signs Temp 98.0 F 12/09/22 09:57 Pulse 84 12/09/22 09:57 BP 126/80 12/09/22 09:57 Pulse Ox 96 12/09/22 09:57 BMI result Body Mass Index 27.1 Const General: cooperative, healthy appearing, comfortable, no acute distress, alert, awake, Physically active and well groomed; No anxious, diaphoretic, ill appearing, intoxicated appearing, poor hygiene or tired appearing Nutritional Appearance: average body habitus Orientation/consciousness: oriented to person Limitations: no limitations Resp Effort & Inspection: normal respiratory effort Auscultation: clear to auscultation bilaterally, no crackles, no rales, no rhonchi, no wheezes, lung sounds not diminished and No rub present Cardio Rate: regular rate Rhythm: regular rhythm GI Palpation (GI): Soft to palpation, not firm, nontender, no guarding, not rigid a nd No hepatosplenomegaly present General: Yes no CVA tenderness Back/Spine/Pelvis Back: no CVA tenderness Skin Other: Good color, warm and dry Neuro General: oriented to person Psych Appearance: grossly normal Mental Status: mental status grossly normal Speech and movement: Normal speech and movement present Affect: normal affect Attitude: cooperative Thought process: Normal thought process present Insight: Good insight present (Psych) Judgement: Good judgement present (Psych) Results AMB Urinalysis, Automated UA Leukoctes 125 Sofía/uL Last Edit by Semaj Cleveland CMA on 12/09/22 10:1 0 UA Nitrite Negative Last Edit by Semaj Cleveland CMA on 12/09/22 10:10 UA Urobilinogen 0.2 mg/dL Last Edit by Semaj Cleveland CMA on 12/09/22 10 :10 UA Protein 15 mg/dL Last Edit by Semaj Cleveland CMA on 12/09/22 10:10 UA pH 5.5 Last Edit by Semaj Cleveland CMA on 12/09/22 10:10 UA Blood 0 Stewart/uL Last Edit by Semaj Cleveland CMA on 12/09/22 10:10 UA Specific [place] 1.015 Last Edit by Semaj Cleveland CMA on 12/09/22 10:10 UA Ketone Negative Last Edit by Semaj Cleveland CMA on 12/09/22 10:10 UA Bilirubin 0 mg/dL Last Edit by Semaj Cleveland CMA on 12/09/22 10:10 UA Glucose 0 mg/dL Last Edit by Semaj Cleveland CMA on 12/09/22 10:10 Results Reviewed Results Reviewed: Laboratory Last Values Urine pH (Auto) 5.5 12/09/22 10:08 Specific [place] (Auto) 1.015 12/09/22 10:08 Urine Protein (Auto) 15 mg/dL 12/09/22 10:08 Glucose (UA)(Auto) 0 mg/dL 12/09/22 10:08 Urine Ketones (Auto) Negative 12/09/22 10:08 Urine Blood (Auto) 0 Stewart/uL 12/09/22 10:08 Urine Nitrite (Auto) Negative 12/09/22 10:08 Urine Bilirubin (Auto) 0 mg/dL 12/09/22 10:08 Urine Urobilinogen (Auto) 0.2 mg/dL 12/09/22 10:08 Leukocyte Esterase (Auto) 125 Sofía/uL 12/09/22 10:08 Assessment & Plan Assessment & Plan (1) Cystitis: Code(s): N30.90 - Cystitis, unspecified without hematuria Plan This is an elderly patient with microscopy confirmed Klebsiella pneumonia UTI, who took a very short course of nitrofurantoin and could not tolerate the medication, before treat being changed to amoxicillin. She is resistant to the new medication, advised that she stop the current course and I changed her to a short course of Cipro. It is not 1st line treatment And I did discuss with her that she could develop a severe tendinitis from this medication, however is susceptible on testing, and as she had been experiencing nausea and chest discomfort, so it is possible that she had started to develop a pyelonephritis which would require longer treatment and she still has lingering symptoms, and has antibiotic allergies that limit the choice. She is now pretty much asymptomatic, but I advised that she complete the course to completely clear the infection. She knows to follow up if symptoms persist or worsen, or to go to the emergency department with any worrisome symptoms Orders: Orders AMB Urinalysis Automated 12/09/22 N39.0 - Urinary tract infection, site not specified, Z13.9 - Encounter for screening, unspecified Medications: New ciprofloxacin HCl 500 mg PO BID 5 days 10 tabs 0RF Coding Level of Care Code Est Pt Level 4 (39637) Diagnoses Cystitis N30.90
== END 2022-12-09 10:47 | disposition home or self-care (01) ==
PROVIDERS: PCP Internal Medicine; Visit Provider Physician Assistant Medical
DX: N39.0 Urinary tract infection, site not specified (principal); R35.0 Frequency of micturition
CPT/HCPCS: 81003; 99214

== ENCOUNTER 2022-12-17 17:22 | Emergency (ER) | payer MEDICARE, SELFPAY ==
[2022-12-17] VITALS (32 sets, daily range): BP systolic 43–170; BP diastolic 20–112; PULSE 63–103; RESP 16–33; TEMP 36.5–36.9; O2SAT 85–100; BMI 27.6; BMI 28.5
--- NOTE | 2022-12-17 | ECG_ITS ---
Test Reason : TACHYCARDIC Blood Pressure : / mmHG Vent. Rate : 121 BPM Atrial Rate : 131 BPM P-R Int : 200 ms QRS Dur : 134 ms QT Int : 362 ms P-R-T Axes : 017 -43 162 degrees QTc Int : 514 ms Poor data quality, interpretation may be adversely affected Atrial fibrillation with rapid ventricular response with premature ventricular or aberrantly conducted complexes Left axis deviation Non-specific intra-ventricular conduction block Minimal voltage criteria for LVH, may be normal variant ( [employer] product ) Possible Anterolateral infarct (cited on or before 17-DEC-2022) Abnormal ECG When compared with ECG of 17-DEC-2022 18:32, Vent. rate has increased Referred By: Valentina Mitchell Electronically Signed By:TEDDY KUMAR
--- NOTE | 2022-12-17 | ECG_ITS ---
Test Reason : CP Blood Pressure : / mmHG Vent. Rate : 094 BPM Atrial Rate : 000 BPM P-R Int : 000 ms QRS Dur : 142 ms QT Int : 404 ms P-R-T Axes : 000 -52 098 degrees QTc Int : 505 ms Atrial fibrillation with premature ventricular or aberrantly conducted complexes Left axis deviation Left bundle branch block Abnormal ECG When compared with ECG of 17-DEC-2022 20:54, Left bundle branch block has replaced Non-specific intra-ventricular conduction block Borderline criteria for Anterior infarct are no longer Present Borderline criteria for Anterolateral infarct are no longer Present Vent. rate has decreased Referred By: Valentina Mitchell Electronically Signed By:TEDDY KUMAR
--- NOTE | ~2022-12-17 | XR_ITS ---
EXAMINATION: XR CHEST CLINICAL INFORMATION: Shortness of breath COMPARISON: Same day earlier TECHNIQUE: Frontal view of the chest was obtained. FINDINGS: Developing flocculent opacities in the left lung and some increased opacities in the right lung. Findings may well be consistent with evolving CHF. No large effusion is seen. Cardiac silhouette is comparable. XR/XR chest 1V IMPRESSION: Developing flocculent opacities on the left and some increased opacities and airspace change on the right which may be consistent with evolving CHF.
--- NOTE | ~2022-12-17 | XR_ITS ---
EXAMINATION: XR CHEST CLINICAL INFORMATION: cassy COMPARISON: Chest radiograph from 12/17/2022 TECHNIQUE: Frontal view of the chest was obtained. FINDINGS: Small right pleural effusion with subjacent atelectasis. Patchy radiopacities involving the left lung base. Prominence of the pulmonary vasculature. Surgical clips right mid to upper lung field. No pneumothorax. Trachea is midline. Cardiomediastinal silhouette is stable. Aorta demonstrates tortuosity. Degenerative changes of the thoracolumbar spine. Stable appearance of the right humeral head. Soft tissues are unremarkable. XR/XR chest 1V IMPRESSION: 1. Small right pleural effusion with subjacent atelectasis. 2. Patchy radiopacities involving the left lung base. 3. Prominence of the pulmonary vasculature.
--- NOTE | ~2022-12-17 | XR_ITS ---
EXAMINATION: XR CHEST CLINICAL INFORMATION: Shortness of breath COMPARISON: 11/30/2021 TECHNIQUE: 2 views of the chest were obtained. FINDINGS: Evidence of previous surgery with clips again noted on the right. Changes of mild CHF suspected associated mild cardiomegaly. Trace pleural effusions at both bases. No focal infiltrate. XR/XR chest 2V IMPRESSION: Mild CHF as above.
--- NOTE | 2022-12-17 17:52 | ED_ITS ---
HPI - General Adult General Chief complaint: Extremity Problem Stated complaint: swollen legs Time Seen by Provider: 12/17/22 18:17 Source: patient Mode of arrival: ambulatory Limitations: no limitations History of Present Illness HPI narrative: Patient is an 82-year-old female with history of AFib, pulmonary hypertension, mitral regurgitation, microcytic anemia, osteopenia, osteoarthritis, HTN, dyslipidemia, T2 dm presenting to the emergency department with complaint of worsening dyspnea on exertion and bilateral lower extremity edema for the past several days. Patient reports that she was recently treated for a UTI with Cipro and feels as though her symptoms began after completing the course of Cipro. She denies cough or fevers. She denies chest pain but does report a sensation of chest fullness. Reports she has gained 5 lb over the past week. MD complaint: Dyspnea on exertion, lower extremity edema Onset (ago): day(s) Location: chest and lower extremity Relieving factors: rest Exacerbating factors: movement Associated symptoms: other (Weight gain) Treatments prior to arrival: none Related Data Home Medications Medication Instructions Recorded Confirmed calcium carbonate 500 mg calcium 500 mg PO BID 12/19/21 12/07/22 (1,250 mg) tablet estradiol 0.01% (0.1 mg/gram) 1 g vaginal MOWEFR 12/19/21 12/07/22 vaginal cream (Estrace) magnesium 250 mg tablet 500 mg PO DAILY@1700 12/19/21 12/07/22 calcium citrate 315 mg 1 tab PO DAILY 04/28/22 12/07/22 calcium-vitamin D3 6.25 mcg (250 unit) tablet (Citracal + Vitamin D Maximum) coenzyme Q10 100 mg capsule 100 mg PO DAILY 04/28/22 12/07/22 (CoQ-10) docusate sodium 100 mg capsule 100 mg PO DAILY 04/28/22 12/07/22 (Stool Softener) mecobalamin (vitamin B12) 1,000 1,000 mcg sublingual DAILY 04/28/22 12/07/22 mcg disintegrating tablet,sublingual vitamins A,C,Q-evdq-lorscm 2,148 2 tab PO BID 04/28/22 12/07/22 mcg-113 mg-45 mg-17.4 mg tablet (PreserVision AREDS) famotidine 40 mg tablet 40 mg PO DAILY 03/13/23 09/21/23 Previous Rx's Medication Instructions Recorded pen needle, diabetic 31 gauge x #360 ea 02/17/22 3/16 (BD Ultra-Fine Mini Pen Needle) metformin 1,000 mg tablet 1,000 mg PO BID #180 tabs 02/24/22 insulin lispro 200 unit/mL (3 mL) 35 unit (0.175 mL) subcut BEDTIME 03/15/22 subcutaneous pen (Humalog KwikPen #18 mL U-200 Insulin) ferrous fumarate 324 mg (106 mg 324 mg PO DAILY #90 tabs 08/03/22 iron) tablet (Ferrocite) amlodipine 5 mg tablet 5 mg PO DAILY #90 tabs 08/21/22 apixaban 5 mg tablet (Eliquis) 5 mg PO BID 90 days #180 tabs 08/21/22 losartan 50 mg tablet 50 mg PO DAILY #90 tabs 08/21/22 metoprolol succinate 25 mg 25 mg PO DAILY 90 days #90 tabs 08/21/22 tablet,extended release 24 hr rosuvastatin 5 mg tablet 5 mg PO MOWEFR 90 days #39 tabs 09/06/22 insulin glargine 100 unit/mL (3 20 unit (0.2 mL) subcut BEDTIME 10/30/22 mL) subcutaneous pen (Lantus #15 mL Solostar U-100 Insulin) hydrochlorothiazide 25 mg tablet 25 mg PO DAILY #30 tabs 11/13/22 amoxicillin 875 mg tablet 875 mg PO Q12H #20 tabs 12/08/22 ciprofloxacin HCl 500 mg tablet 500 mg PO BID 5 days #10 tabs 12/09/22 Allergies Allergy/AdvReac Type Severity Reaction Status Date / Time adhesive tape [Adhesive Tape] Allergy Mild CONTACT Verified 12/09/22 09:58 DERMATITIS cephalexin [CEPHALEXIN] Allergy Unknown SWELLING Verified 12/09/22 09:58 latex [Latex] Allergy Unknown RASH Verified 12/09/22 09:58 Biaxin AdvReac Intermediate plapitation Verified 12/09/22 09:58 s bacitracin [From Cortisporin] AdvReac Mild EYE Verified 12/09/22 09:58 IRRITATION hydrocortisone AdvReac Mild EYE Verified 12/09/22 09:58 [From Cortisporin] IRRITATION neomycin [From Cortisporin] AdvReac Mild EYE Verified 12/09/22 09:58 IRRITATION flecainide [From Tambocor] AdvReac Unknown HEART Verified 12/09/22 09:58 RACING lisinopril [LISINOPRIL] AdvReac Unknown cough, Verified 12/09/22 09:58 nausea Sulfa (Sulfonamide AdvReac Unknown PALPITATION Verified 12/09/22 09:58 Antibiotics) S [SULFA(SULFONAMIDE ANTIBIOTICS)] Review of Systems 2 Review of Systems: As per HPI. Yes all other systems are reviewed and are negative Constitutional: Constitutional: Reports as per HPI [facility] Past Medical History Medical History (Updated 12/17/22 @ 21:55 by Sandra Nix NP) Urinary tract infection Paroxysmal atrial fibrillation Cholelithiasis Renal cyst Pulmonary hypertension Non-rheumatic mitral regurgitation Permanent atrial fibrillation Right nephrolithiasis Compression deformity of vertebra Early satiety Microcytic anemia Heartburn Atrophic vaginitis Osteopenia Osteoarthritis of knees, bilateral Essential hypertension Dyslipidemia Type 2 diabetes mellitus with kidney complication, 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 Son No problems noted. Daughter No problems noted. Social History Social History Household Members: Spouse Housing: House Do you presently have visiting nurse or other home services: No Alcohol intake: never Patient Tobacco Use Status: Never used Tobacco Smoked in Last 30 Days: No e-Cigarette/Vaping Use: Never Used Use of substances other than those prescribed or required for medical reasons: No Advance Directives: Yes Advance Directives Information Provided: Yes Advance Directives on File: No service: No Current occupational status: retired Cognitive needs: No Hearing needs: Yes Vision needs: Yes Physical Exam ED Vital Signs: Vital Signs - 24 hr 12/17/22 17:52 12/17/22 19:30 12/17/22 21:22 Temperature 98.4 F 98.4 F Pulse Rate 69 63 Respiratory Rate 16 18 33 H Blood Pressure 142/61 H 137/75 Pulse Oximetry 92 94 Oxygen Delivery Method Room Air Room Air BMI result Body Mass Index 28.5 Vital signs have been reviewed and appear to be correct. Blood pressure normal. Heart rate normal. Respiratory rate normal. Temperature normal. Oxygen saturation normal. Const General: cooperative, healthy appearing and no acute distress Orientation/consciousness: oriented to person, oriented to place, oriented to time and patient oriented x3 Limitations: no limitations HENMT Head: Yes normocephalic and Yes atraumatic Ears: external ears normal General nose exam: Normal external nose present Face and sinus: Yes face symmetric Mouth: oropharynx normal and moist mucous membranes Throat: Yes uvula midline Eyes Pupils: Equal, round and reactive pupils present Neck Neck: Yes normal visual inspection and Yes supple Resp Effort & Inspection: normal respiratory effort and able to speak in complete sentences Auscultation: clear to auscultation bilaterally Cardio Rate: regular rate Rhythm: regular rhythm Heart sounds: S1 normal heart sound present and S2 normal heart sound present GI Palpation (GI): Soft to palpation and nontender Auscultation: normoactive bowel sounds General: Yes no CVA tenderness Back/Spine/Pelvis Back: no CVA tenderness Skin General skin exam: elasticity normal and turgor normal Neuro General: oriented to person, oriented to place, oriented to time, patient oriented x3, moves all extremities, no focal motor deficits and CN's II-XI intact bilaterally Cranial nerves: Yes Equal, round and reactive pupils present Cognition (Neuro): normal cognition Extrem General: Yes full ROM and Yes no calf tenderness Right lower extremity: edema Details: pitting and 3+ Left lower extremity: edema Details: pitting and 3+ Psych Mental Status: mental status grossly normal Affect: normal affect Thought process: Normal thought process present Course Course Course Narrative: RME - 82 yo female with history of afib on eliquis, DM, HTN, HLD, PVC, who presents to the ER for evaluation of worsening LE edema for the last couple of days. Usually weighs 157 and up to 161 this morning. +SOB and GARCÍA along with some chest pressure. She reports feeling edematous all the way to her hips. Compliant with HCTZ. Plan: CXR, EKG, labs Reevaluation(s) Reevaluation #1: After patient signed out to Dr. Mitchell for admission, she became hypoxic, tachycardic, new LBBB noted on EKG, new chest pain likely ACS. Patient started on a heparin drip and transferred to [facility] ED, coordinated by Dr. Mitchell. Accepting MD Dr. Galindo. Time: 21:43 Medications Administered Discontinued Medications Generic Name Dose Route Start Last Admin Trade Name Freq PRN Reason Stop Dose Admin Furosemide 20 mg 12/17/22 19:18 12/17/22 19:48 Furosemide 20 Mg/2 Ml Vial IVPUSH 12/17/22 19:19 20 mg ONCE ONE Administration Protocol Medical Decision Making Medical Decision Making [facility] Narrative: Patient is an 82-year-old female with history of AFib, pulmonary hypertension, mitral regurgitation, microcytic anemia, osteopenia, osteoarthritis, HTN, dyslipidemia, T2 dm presenting to the emergency department with complaint of worsening dyspnea on exertion and bilateral lower extremity edema for the past several days. On exam patient is awake, A+Ox3, VS WNL, afebrile, normal neurological exam without focal deficits, physical exam findings as above. Given reported symptoms and physical exam findings, initial differential includes heart failure, ACS, pneumonia, nephrotic syndrome. No evidence of infection or proteinuria on UA. Labs notable for no leukocytosis, no anemia, no KEO, troponin of 9.2, BNP 85. X-ray notable for mild CHF. My interpretation is in agreement with the radiologist's interpretation. IV Lasix ordered. [place] text to Dr. Mitchell for admission, will be down to assess patient. Differential Diagnosis Differential Diagnoses: The differential diagnosis associated with the presentation includes As per [facility]. Admission/Observation Consideration of admission/observation: Escalation of care including admission/observation considered Lab Data [facility] Lab Attestation statement: I reviewed the patient's lab results. As per MDM 12/17/22 18:40 12/17/22 18:40 Labs: Lab Results 12/17/22 12/17/22 12/17/22 Range/Units 18:40 18:42 18:57 WBC 9.5 (4.8-10.8) X10*3/uL RBC 4.33 (4.20-5.50) X10*6/uL Hgb 12.3 (12.0-16.0) g/dl Hct 37.2 (37.0-47.0) % MCV 85.9 (80.0-98.0) fL MCH 28.4 (27.0-33.0) pg MCHC 33.1 (31.0-35.0) g/dl RDW 15.1 (11.0-16.0) % Plt Count 307 (160-400) X10*3/uL MPV 8.6 L (9.4-12.3) fL Immature Gran % (Auto) 1.0 H (0.0-0.4) % Neut % (Auto) 71.6 (45-73) % Lymph % (Auto) 14.3 L (20-40) % [place] % (Auto) 9.4 (2-11) % Eos % (Auto) 3.2 (0-4) % Baso % (Auto) 0.5 (0-2) % Lymph # (Auto) 1.4 (1.2-4.9) X10*3/uL [place] # (Auto) 0.9 (0.1-1.2) X10*3/uL Eos # (Auto) 0.3 (0.0-0.4) X10*3/uL Baso # (Auto) 0.1 (0.0-0.2) X10*3/uL Abs Immat Gran (auto) 0.09 H (0.00-0.03) X10*3/uL Absolute Neuts (auto) 6.8 (2.0-8.3) x10*3/uL Absolute Nucleated RBC 0.000 (0.0-0.012) X10*3/uL Nucleated RBC % (auto) 0.0 (0.0-0.2) /100WBC O2 Saturation % ABG pH at Pt Temp (7.35-7.45) ABG pCO2 at Pt Temp (32-45) mmHg ABG pO2 at Pt Temp (83-108) mmHg ABG HCO3 (22-26) mmol/L ABG Base Excess (Actual) mmol/L Sodium 136 (135-145) mmol/L Potassium 3.9 (3.3-5.1) mmol/L Chloride 95 L (96-108) mmol/L Carbon Dioxide 26 (22-29) mmol/L Anion Gap 19 (12-20) BUN 12 (9-16) mg/dL Creatinine 0.81 (0.5-1.4) mg/dL Estim Creat Clear Calc 50.6 Estimated GFR > 60 POC Glucose 179 H (60-115) mg/dL Random Glucose 196 H (60-115) mg/dL Lactic Acid (0.5-2.0) mmol/L Calcium 10.0 (8.4-10.2) mg/dL Magnesium 2.2 (1.6-2.6) mg/dL Total Bilirubin 0.7 (0.0-1.0) mg/dL Direct Bilirubin 0.4 (0.0-0.5) mg/dL AST 14 (5-31) U/L ALT 12 (0-31) U/L Alkaline Phosphatase 62 (39-117) U/L Troponin I High Sens 9.2 (<3.5-17.0) ng/L B-Natriuretic Peptide 85 (<100) pg/mL Total Protein 7.9 (6.5-8.0) g/dL Albumin 4.3 (3.5-5.0) g/dL Urine Color Yellow Urine Appearance Clear Urine pH 8.0 (5.0-9.0) Ur Specific [place] <= 1.005 (1.005-1.025) Urine Protein Negative (Neg-Trace) mg/dL Urine Glucose (UA) Negative (Negative) mg/dL Urine Ketones Negative (Negative) mg/dL Urine Blood Negative (Negative) Urine Nitrite Negative (Negative) Ur Leukocyte Esterase Negative (Negative) 12/17/22 12/17/22 Range/Units 21:03 21:46 WBC (4.8-10.8) X10*3/uL RBC (4.20-5.50) X10*6/uL Hgb (12.0-16.0) g/dl Hct (37.0-47.0) % MCV (80.0-98.0) fL MCH (27.0-33.0) pg MCHC (31.0-35.0) g/dl RDW (11.0-16.0) % Plt Count (160-400) X10*3/uL MPV (9.4-12.3) fL Immature Gran % (Auto) (0.0-0.4) % Neut % (Auto) (45-73) % Lymph % (Auto) (20-40) % [place] % (Auto) (2-11) % Eos % (Auto) (0-4) % Baso % (Auto) (0-2) % Lymph # (Auto) (1.2-4.9) X10*3/uL [place] # (Auto) (0.1-1.2) X10*3/uL Eos # (Auto) (0.0-0.4) X10*3/uL Baso # (Auto) (0.0-0.2) X10*3/uL Abs Immat Gran (auto) (0.00-0.03) X10*3/uL Absolute Neuts (auto) (2.0-8.3) x10*3/uL Absolute Nucleated RBC (0.0-0.012) X10*3/uL Nucleated RBC % (auto) (0.0-0.2) /100WBC O2 Saturation 100.0 % ABG pH at Pt Temp 7.42 (7.35-7.45) ABG pCO2 at Pt Temp 47 H (32-45) mmHg ABG pO2 at Pt Temp 233 H (83-108) mmHg ABG HCO3 30 H (22-26) mmol/L ABG Base Excess (Actual) 5.5 mmol/L Sodium (135-145) mmol/L Potassium (3.3-5.1) mmol/L Chloride (96-108) mmol/L Carbon Dioxide (22-29) mmol/L Anion Gap (12-20) BUN (9-16) mg/dL Creatinine (0.5-1.4) mg/dL Estim Creat Clear Calc Estimated GFR POC Glucose (60-115) mg/dL Random Glucose (60-115) mg/dL Lactic Acid 3.4 H* (0.5-2.0) mmol/L Calcium (8.4-10.2) mg/dL Magnesium (1.6-2.6) mg/dL Total Bilirubin (0.0-1.0) mg/dL Direct Bilirubin (0.0-0.5) mg/dL AST (5-31) U/L ALT (0-31) U/L Alkaline Phosphatase (39-117) U/L Troponin I High Sens 10.0 (<3.5-17.0) ng/L B-Natriuretic Peptide (<100) pg/mL Total Protein (6.5-8.0) g/dL Albumin (3.5-5.0) g/dL Urine Color Urine Appearance Urine pH (5.0-9.0) Ur Specific [place] (1.005-1.025) Urine Protein (Neg-Trace) mg/dL Urine Glucose (UA) (Negative) mg/dL Urine Ketones (Negative) mg/dL Urine Blood (Negative) Urine Nitrite (Negative) Ur Leukocyte Esterase (Negative) Independent Interpretation I performed an independent interpretation of an: Plain X-Ray Interpretation: Mild CHF on cxr Radiology Impression Discussion of test interpretation with radiology: I have reviewed the radiologist's reading. Radiologist Impression: XR/XR chest 2V IMPRESSION: Mild CHF as above. External Record Review External record reviewed: Inpatient record, Office record and Outpatient record Discharge Plan Discharge Clinical Impression: ACS (acute coronary syndrome) Patient Disposition: [facility] Transfer Details: to [facility] ED Prescriptions: No Action metformin 1,000 mg tablet 1,000 mg PO BID Qty: 180 3RF Humalog KwikPen Insulin 200 unit/mL (3 mL) insulin pen 35 unit subcut BEDTIME Qty: 18 3RF ferrous fumarate [Ferrocite] 324 mg (106 mg iron) tablet 324 mg PO DAILY Qty: 90 1RF amlodipine 5 mg tablet 5 mg PO DAILY Qty: 90 3RF Eliquis 5 mg tablet 5 mg PO BID 90 Days Qty: 180 3RF losartan 50 mg tablet 50 mg PO DAILY Qty: 90 3RF metoprolol succinate 25 mg tablet extended release 24 hr 25 mg PO DAILY 90 Days Qty: 90 3RF Protocol: Hold for SBP/HR < HOLD for SBP < : 90 HOLD for HR < : 60 rosuvastatin 5 mg tablet 5 mg PO MOWEFR 90 Days Qty: 39 3RF insulin glargine [Lantus Solostar U-100 Insulin] 100 unit/mL (3 mL) insulin pen 20 unit SUBCUT BEDTIME Qty: 15 1RF hydrochlorothiazide 25 mg tablet 25 mg PO DAILY Qty: 30 5RF amoxicillin 875 mg tablet 875 mg PO Q12H Qty: 20 0RF calcium carbonate 500 mg calcium (1,250 mg) Tablet 500 mg PO BID magnesium 250 mg Tablet 500 mg PO DAILY@1700 estradiol [Estrace] 0.01 % (0.1 mg/gram) Cream 1 g VAGINAL MOWEFR (DME) pen needle, diabetic [BD Ultra-Fine Mini Pen Needle] 31 gauge x 3/16 needle See Rx Instructions .Route Qty: 360 4RF Rx Instructions: As directed QID ac and hs PreserVision AREDS 2,148 mcg-113 mg-45 mg-17.4mg tablet 2 tab PO BID Rx Instructions: administer with AM and PM meals mecobalamin (vitamin B12) 1,000 mcg tablet,disintegrating 1,000 mcg sublingual DAILY Rx Instructions: place tablet under tongue and allow to dissolve for at least30 secs before swallowing coenzyme Q10 [CoQ-10] 100 mg capsule 100 mg PO DAILY calcium citrate-vitamin D3 [Citracal + D Maximum] 315 mg-6.25 mcg (250 unit) tablet 1 tab PO DAILY docusate sodium [Stool Softener] 100 mg capsule 100 mg PO DAILY ciprofloxacin HCl 500 mg tablet 500 mg PO BID 5 Days Qty: 10 0RF famotidine 40 mg tablet 40 mg PO DAILY
--- NOTE | 2022-12-17 17:54 | ECG_ITS ---
Test Reason : SWOLLEN LEGS Blood Pressure : / mmHG Vent. Rate : 076 BPM Atrial Rate : 084 BPM P-R Int : 000 ms QRS Dur : 092 ms QT Int : 418 ms P-R-T Axes : 000 -43 074 degrees QTc Int : 470 ms Atrial fibrillation with premature ventricular or aberrantly conducted complexes Left axis deviation Anterior infarct , age undetermined Abnormal ECG When compared with ECG of 27-AUG-2022 10:27, No significant change was found Referred By: Roberta Zaidi Electronically Signed By:TEDDY KUMAR
[2022-12-17 18:46] LABS: MANUAL DIFF FLAG NO
[2022-12-17 18:47] LABS: Basophils Absolute Auto 0.1 X10*3/uL (0.0-0.2); Basophils Percent Auto 0.5 % (0-2); Eosinophils Absolute Auto 0.3 X10*3/uL (0.0-0.4); Eosinophils Percent Auto 3.2 % (0-4); Hematocrit 37.2 % (37.0-47.0); Hemoglobin 12.3 g/dl (12.0-16.0); Imm Gran Abs Auto 0.09 X10*3/uL (0.00-0.03); Lymphocytes Absolute Auto 1.4 X10*3/uL (1.2-4.9); Lymphocytes Percent Auto 14.3 % (20-40); Mean Corpuscular HGB Conc 33.1 g/dl (31.0-35.0); Mean Corpuscular Hemoglobin 28.4 pg (27.0-33.0); Mean Corpuscular Volume 85.9 fL (80.0-98.0); Mean Platelet Volume 8.6 fL (9.4-12.3); Monocytes Absolute Auto 0.9 X10*3/uL (0.1-1.2); Monocytes Percent Auto 9.4 % (2-11); Neutrophils Absolute Auto 6.8 x10*3/uL (2.0-8.3); Neutrophils Percent Auto 71.6 % (45-73); Platelet Count 307 X10*3/uL (160-400); Red Blood Count 4.33 X10*6/uL (4.20-5.50); Red Cell Distribution Width 15.1 % (11.0-16.0); White Blood Count 9.5 X10*3/uL (4.8-10.8)
[2022-12-17 18:49] LABS: Appearance Urine Clear; Color Urine Yellow; Glucose Urine UA Negative (Negative); Leukocyte Esterase Urine Negative (Negative); Nitrite Urine Negative (Negative); Specific Gravity - Urine <= 1.005 (1.005-1.025); Urine Blood Negative (Negative); Urine Ketones Negative (Negative); Urine Protein Negative (Neg-Trace)
[2022-12-17 19:02] LABS: Glucose, Whole Blood 179 mg/dL (60-115)
[2022-12-17 19:03] LABS: Alanine Aminotransferase 12 U/L (0-31); Albumin Level 4.3 g/dL (3.5-5.0); Alkaline Phosphatase 62 U/L (39-117); Anion Gap 19 (12-20); Aspartate Amino Transferase 14 U/L (5-31); Bilirubin Direct 0.4 mg/dL (0.0-0.5); Bilirubin Total 0.7 mg/dL (0.0-1.0); Blood Urea Nitrogen 12 mg/dL (9-16); Carbon Dioxide 26 mmol/L (22-29); Chloride 95 mmol/L (96-108); Creatinine Clr Calc Pharmacy 50.6; Estimated Glomerular Filt Rate > 60; Glucose Random 196 mg/dL (60-115); Magnesium 2.2 mg/dL (1.6-2.6); Potassium 3.9 mmol/L (3.3-5.1); Sodium 136 mmol/L (135-145); Total Protein 7.9 g/dL (6.5-8.0)
[2022-12-17 19:07] LABS: B Type Natriuretic Peptide 85 pg/mL (<100)
[2022-12-17 19:10] LABS: Troponin-I High Sensitivity 9.2 ng/L (<3.5-17.0)
--- NOTE | 2022-12-17 19:42 | PC.NURSE ---
Pt A&Ox3, reports throbbing is nothing new to chest with increase worsening SOB with exertion x several weeks. Pt speaking in full sentences, SpO2 94% on RA, RR 18, lung sounds diminished. IV line established, med given per MAR. Pt reports urinary frequency like spasms , denies any pain or burning with urination.
[2022-12-17] MEDS: Furosemide 20 MG/2 ML VIAL IVPUSH (19:48)
--- NOTE | 2022-12-17 19:55 | PM.IMHP ---
History of Present Illness Date of Service: 12/17/22 Attending physician on admission: Valentina Mitchell Chief Complaint: SOB, lower leg edema Pt is a 82-year-old female with a PMH significant for?HTN, HLD, insulin-dependent diabetes type 2, persistent AFib on Eliquis, pulmonary hypertension, GERD, and vertebral compression fractures who presents to the ED with? In the ED patient was afebrile and slightly hypertensive at 142/61. Labs were grossly unremarkable. BNP WNL at 85. Stable H&H. No leukocytosis. Electrolytes WNL. Renal function, hepatic function WNL. Troponin 9.2. UA negative for UTI CXR showed mild CHF with trace pleural effusions. EKG demonstrated likely atrial fibrillation with PVCs and no evidence of ST elevations or depressions. Pt was treated with 20 mg IV Lasix. 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 Son No problems noted. Daughter No problems noted. Surgical History History of esophagogastroduodenoscopy (EGD) (~10/2022) History of lumbar discectomy History of lobectomy of lung History of hysterectomy History of total right knee replacement (TKR) Lumbar radiculopathy Social History Household Members: Spouse Housing: House Do you presently have visiting nurse or other home services: No Alcohol intake: never Patient Tobacco Use Status: Never used Tobacco Smoked in Last 30 Days: No e-Cigarette/Vaping Use: Never Used Use of substances other than those prescribed or required for medical reasons: No Advance Directives: Yes Advance Directives Information Provided: Yes Advance Directives on File: No service: No Current occupational status: retired Cognitive needs: No Hearing needs: Yes Vision needs: Yes Meds Allergies Allergy/AdvReac Type Severity Reaction Status Date / Time adhesive tape [Adhesive Tape] Allergy Mild CONTACT Verified 12/09/22 09:58 DERMATITIS cephalexin [CEPHALEXIN] Allergy Unknown SWELLING Verified 12/09/22 09:58 latex [Latex] Allergy Unknown RASH Verified 12/09/22 09:58 Biaxin AdvReac Intermediate plapitation Verified 12/09/22 09:58 s bacitracin [From Cortisporin] AdvReac Mild EYE Verified 12/09/22 09:58 IRRITATION hydrocortisone AdvReac Mild EYE Verified 12/09/22 09:58 [From Cortisporin] IRRITATION neomycin [From Cortisporin] AdvReac Mild EYE Verified 12/09/22 09:58 IRRITATION flecainide [From Tambocor] AdvReac Unknown HEART Verified 12/09/22 09:58 RACING lisinopril [LISINOPRIL] AdvReac Unknown cough, Verified 12/09/22 09:58 nausea Sulfa (Sulfonamide AdvReac Unknown PALPITATION Verified 12/09/22 09:58 Antibiotics) S [SULFA(SULFONAMIDE ANTIBIOTICS)] Home Medications Medication Instructions Recorded Confirmed Last Taken Type calcium carbonate 500 mg calcium 500 mg PO BID 12/19/21 12/07/22 12/18/21 History (1,250 mg) tablet estradiol 0.01% (0.1 mg/gram) 1 g vaginal MOWEFR 12/19/21 12/07/22 Unknown History vaginal cream (Estrace) magnesium 250 mg tablet 500 mg PO DAILY@1700 12/19/21 12/07/22 Unknown History calcium citrate 315 mg 1 tab PO DAILY 04/28/22 12/07/22 Unknown History calcium-vitamin D3 6.25 mcg (250 unit) tablet (Citracal + Vitamin D Maximum) coenzyme Q10 100 mg capsule 100 mg PO DAILY 04/28/22 12/07/22 Unknown History (CoQ-10) docusate sodium 100 mg capsule 100 mg PO DAILY 04/28/22 12/07/22 Unknown History (Stool Softener) mecobalamin (vitamin B12) 1,000 1,000 mcg sublingual DAILY 04/28/22 12/07/22 Unknown History mcg disintegrating tablet,sublingual vitamins A,C,M-plhq-buxbpw 2,148 2 tab PO BID 04/28/22 12/07/22 Unknown History mcg-113 mg-45 mg-17.4 mg tablet (PreserVision AREDS) famotidine 40 mg tablet 40 mg PO DAILY 05/29/22 12/07/22 Unknown History Physical Exam Vital Signs and Narrative: Vital Signs: Last Vital Signs Temp 98.4 F 12/17/22 19:30 Pulse 63 12/17/22 19:30 Resp 18 12/17/22 19:30 BP 137/75 12/17/22 19:30 Pulse Ox 94 12/17/22 19:30 O2 Del Method Room Air 12/17/22 19:30 BMI result Body Mass Index 27.6 Results Labs 12/17/22 18:40 12/17/22 18:40 Labs: Laboratory Results - last 24 hr 12/17/22 12/17/22 12/17/22 18:40 18:42 18:57 MCV 85.9 MCH 28.4 MCHC 33.1 RDW 15.1 Plt Count 307 MPV 8.6 L Immature Gran % (Auto) 1.0 H Neut % (Auto) 71.6 Lymph % (Auto) 14.3 L [place] % (Auto) 9.4 Eos % (Auto) 3.2 Baso % (Auto) 0.5 Lymph # (Auto) 1.4 [place] # (Auto) 0.9 Eos # (Auto) 0.3 Baso # (Auto) 0.1 Abs Immat Gran (auto) 0.09 H Absolute Neuts (auto) 6.8 Absolute Nucleated RBC 0.000 Nucleated RBC % (auto) 0.0 Anion Gap 19 Estim Creat Clear Calc 50.6 Estimated GFR > 60 POC Glucose 179 H Random Glucose 196 H Calcium 10.0 Magnesium 2.2 Total Bilirubin 0.7 Direct Bilirubin 0.4 AST 14 ALT 12 Alkaline Phosphatase 62 B-Natriuretic Peptide 85 Total Protein 7.9 Albumin 4.3 Urine Color Yellow Urine Appearance Clear Urine pH 8.0 Ur Specific [place] <= 1.005 Urine Protein Negative Urine Glucose (UA) Negative Urine Ketones Negative Urine Blood Negative Urine Nitrite Negative Ur Leukocyte Esterase Negative Imaging Radiologist's Impressions: Impressions Chest X-Ray 12/17/22 18:09 IMPRESSION: Mild CHF as above. Assessment and Plan Time Spent With Patient Time: Total time managing care of this patient today ____ minutes.
--- NOTE | 2022-12-17 20:06 | MHC.EDTECH ---
Per RN Rin's request, This tech placed a pure wick,due to Lasix giving to keep patient clean and dry.
[2022-12-17] MEDS: Morphine Sulfate 2 MG/ML CARTRIDGE IVPUSH (20:50)
[2022-12-17] MEDS: Morphine Sulfate 4 MG/ML CARTRIDGE IVPUSH (20:50)
[2022-12-17] MEDS: Furosemide 40 MG/4 ML VIAL IVPUSH (20:50)
[2022-12-17] MEDS: Metoprolol Tartrate 5 MG/5 ML VIAL IVPUSH (20:50)
[2022-12-17] MEDS: ondansetron HCL 4 MG/2 ML VIAL IVPUSH (20:50)
[2022-12-17] MEDS: Nitroglycerin 2 % Oint 1 GM Packet 1 INCH TRANSDERMA (20:50)
[2022-12-17 21:25] LABS: Lactic Acid 3.4 mmol/L (0.5-2.0)
[2022-12-17] MEDS: propofoL 200 MG/20 ML VIAL 50 MG IVPUSH (21:46)
[2022-12-17] MEDS: Rocuronium Bromide 50 MG/5 ML VIAL 30 MG IVPUSH (21:46)
--- NOTE | 2022-12-17 21:48 | P.EN_ITS ---
Event Note Date of Service: 12/17/22 Event Note: Pt is an 82-year-old female with a PMH significant for?HTN, HLD, insulin- dependent diabetes type 2, persistent AFib on Eliquis, pulmonary hypertension, GERD, and vertebral compression fractures who presents to the ED with?increasing shortness of breath and lower leg edema for the past few days. During interview and examination patient began complaining of difficulty breathing, chest pain/discomfort, and generally feeling unwell and uncomfortable. Patient then w ent into AFib with RVR in the 130s. Patient's blood pressure was noted to be in the 160s/80s and oxygen saturation as low as mid 70s. Patient was placed on nasal cannula, OxyMask, non-rebreather, and eventually BiPAP. Repeat EKG showed a new left bundle branch block. Bedside echo showed apical and septal wall hypokinesis with a hinge point. Repeat CXR showed flash pulmonary edema. Troponin was obtained that was flat at 10.0 (with previous 9.2). Patient was given ondansetron 4 mg IV, morphine 4 mg IV, Lasix 40 mg IV, metoprolol 5 mg IV, sublingual nitroglycerin, nitropaste 1 in, aspirin 300 mg WI, and placed on a heparin drip. Patient was then intubated by the ICU team. Patient will be transferred to [facility] for further workup and evaluation of either a rate-related LBBB verses STEMI. Time Spent With Patient Time: Total time managing care of this patient today ____ minutes.
[2022-12-17] MEDS: propofoL 1,000 MG/100 ML VIAL 9.05 MG IVCONT (21:49)
--- NOTE | 2022-12-17 21:50 | PC.NURSE ---
Late entry: Pt sitting up on stretcher with admitting PA, Pt with increase WOB, appears anxious, 83% on RA placed on 2L via NC with no improvement. Changed over to oxymask 10L with no improvement, RT and Dr. Mitchell at bedside and placed on Bipap, 2nd IV line established. Dr. Hu and Jean PA at bedside, Plan to intubation, pt and aware of plan. Meds given as documented.
--- NOTE | 2022-12-17 21:52 | MHC.EDTECH ---
Repeat EKG was obtained per , Labs were drawn and sent to lab.
[2022-12-17 21:53] LABS: ABG Base Excess 5.5 mmol/L; ABG HCO3 30 mmol/L (22-26); ABG pCO2 47 mmHg (32-45); ABG pH 7.42 (7.35-7.45); ABG pO2 233 mmHg (83-108)
--- NOTE | 2022-12-17 21:54 | PC.NURSE ---
Late entry: 2144 Ayan BARROS, RT and nursing at bedside preparing for intubation. Bipap removed 2145 Medicated with Prop 50 mg IVP, medicated with Rocc 30 mg IVP 2147 Intubated by FIORELLA Botello 7.5 ETT, 23 @ the lip, +color change, 96% 2148 Prop drip infusing @ 20 mcg/kg/min per verbal order by FIORELLA Botello Pt accepted to [facility], plan for air transport. Awaiting response from flight services.
--- NOTE | 2022-12-17 21:58 | W.PM.CCHP ---
Procedures Date of Service Date of Service: 12/18/22 Intubation Intubation Comments: pt appears to have an acute ischemic event, given unstable angina related chest pain worse over time not better with NTG, on echo at bedside there is wall motion apical akenesis and a hinge effect. EF about 30% Consent for Procedure: Elective - informed consent obtained (from pt) Time out performed: Yes Sedative: propofol Mg given: 50 Paralytic: rocuronium Mg given: 30 Laryngoscope: fiber optic video scope ET tube size: 7.5 ET tube uncuffed: Yes Tube secured depth (cm): 25 Tube secured location: lips Tube placement confirmation: visualized tube passing through cords, equal breath sounds bilaterally, no breath sounds over epigastrium and confirmation by capnometry Patient tolerated procedure: well Intubation complications: none (post SADIA CXR shows tube about 3 cm above the pinky)
[2022-12-17] MEDS: Norepinephrine Bitartrate/D5W 8 MG/250 ML PLAST..BAG 42.41 MG IV (22:01)
--- NOTE | 2022-12-17 22:03 | PC.NURSE ---
Per ICU provider's verbal order starting dose for Levophed 0.3 mcg/kg/hr.
--- NOTE | 2022-12-17 22:16 | PM.CCN ---
Critical Care Event Note Summary Date of Service: 12/17/22 Code activated: No Narrative: This case had a high probability of a clinically significant, sudden, or life threatening deterioration of this patient's condition which required my full and direct attention, intervention and personal management. Critical Care Time (minutes): 75 Comment: At 845 p.m. while trying to evaluate another patient, we were kindly asked to assist with the care of on this patient who was going to be admitted to the floor; as the patient developed acute respiratory distress and is sudden chest pain on the left side, 9/10, localized, nonradiating, associated with some arm discomfort on the left side, no nausea, no vomiting, nitroglycerin had been applied to her chest but the patient continued to experience this discomfort. Patient had being given Lasix and placed on BiPAP. As background, the patient is an 82-year-old female who has underlying history of paroxysmal atrial fibrillation on Eliquis, hypertension, hyperlipidemia, type 2 diabetes, osteoarthritis, GERD, mitral regurgitation, UTI, among others recently treated for a urinary tract infection with ciprofloxacin, the patient has never being diagnosed with CHF in the past. Reportedly patient came to the emergency room with complaints of several days worth of shortness of breath on exertion associated with lower extremity edema and an increase of 5 lb of her weight. During the brief encounter, patient appears to be on moderate respiratory distress still complaining of chest discomfort. EKG reviewed at bedside show lots of artifact and was non discernible, repeat EKG reviewed by me showed what appears to be a atrial fibrillation rhythm with rate of 94 beats per minute and some PVCs, left bundle branch block which in comparison to wall study appears to be brown new, T-wave abnormalities in the inferior leads also noted. We performed a bedside echo with H shows apical hypokinesis with a hinge affect, estimated ejection fraction of 30%, 2+ mitral regurgitation. In light of the unstable angina symptomatology, EKG findings and echocardiogram findings, this is likely to represent an acute ischemic event. At this point the recommendation is to transport the patient to a primary center where she can have cardiac intervention (cardiac catheterization) not available in this hospital. Given the patient's elevated blood pressure nitroglycerin had been ordered but we asked to hold this for the best thing for the patient would be to secure her airway and intubate her prior to transport. The case was discussed in detail with the ER physician Dr. Adams as well as the internal medicine physician Dr. Boswell. The above-mentioned suggesting use were made, aspirin 300 mg per rectum x1 was given. Subsequently I discussed with the patient the need of intubation and she verbally agreed, this was also discussed with her who is at bedside. Rapid sequence intubation was planned, Respiratory at bedside, will proceed with intubation using recurrent M and propofol, if necessary we will allow this medication to work into the patient's system before starting nitroglycerin drip for a goal blood pressure 120-140. Please see RSI documentation for details; this was uneventful, post intubation chest x-ray shows the endotracheal tube tip at 3.5 cm above the pinky. Patient however was started on Levophed. Nitroglycerin drip is on hold at this point. She does have nitro paste on her chest.. The patient has been accepted to [facility] by Dr. Galindo and the patient will go via [facility]. Total critical care time spent with this patient aside from any procedures perform a bedside 75 minutes. Case discussed with Dr. Hu who was also at bedside during my evaluation, procedures.
--- NOTE | 2022-12-17 22:30 | PC.NURSE ---
Swelling noted to genitalia, unsuccessful attempt to place pal cath.
[2022-12-17] MEDS: Aspirin 300 MG SUPP.RECT PR (22:51)
--- NOTE | 2022-12-17 22:51 | MHC.EDTECH ---
Patient being transferred to [place],Belongings list completed and brought all belongings home. Vitals and rounds completed
--- NOTE | 2022-12-17 23:07 | MHC.EDTECH ---
Patient had a total of 600CC of urine output from the pure wick.
[2022-12-17 23:10] LABS: Reflex Lactate? Lactic Acid Added
--- NOTE | 2022-12-18 00:21 | PC.NURSE ---
Rn to RN report given to Matthew pt will be life flighted to [facility] to ICU, made aware of plan of care.
--- NOTE | 2022-12-21 22:14 | PC.NURSE ---
This parts data writer spoke to Pt Garret. reports Pt missing left hearing aid, updated upon Pt transfer out to ambulance one hearing aid was found and given to EMS crew. All other belongings were given to him in bag.
== END 2022-12-18 00:30 | disposition short-term general hospital (02) ==
PROVIDERS: Internal Medicine; Physician Assistant; Emergency Provider Emergency Medicine; PCP Internal Medicine
DX: I24.9 Acute ischemic heart disease, unspecified (principal); R60.0 Localized edema; I48.91 Unspecified atrial fibrillation; R06.02 Shortness of breath; E11.9 Type 2 diabetes mellitus without complications; I10 Essential (primary) hypertension; R00.0 Tachycardia, unspecified; Z79.01 Long term (current) use of anticoagulants; Z79.899 Other long term (current) drug therapy; Z79.4 Long term (current) use of insulin
CPT/HCPCS: 36415; 71045; 71046; 80048; 80076; 81003; 82803; 82947; 83605; 83735; 83880; 84484; 85025; 93005; 96374; 96375; 96376; 99285; J1940; J2270; J2405

== ENCOUNTER → 2022-12-17 18:25 | Outpatient (BNV) | payer MEDICARE, SELFPAY | PROVIDERS: Emergency Provider Emergency Medicine; PCP Internal Medicine; Visit Provider Physician Assistant Medical | DX: I20.0 Unstable angina (principal); I34.0 Nonrheumatic mitral (valve) insufficiency; I48.0 Paroxysmal atrial fibrillation; R06.02 Shortness of breath | CPT/HCPCS: 99291 ==

== ENCOUNTER 2022-12-27 10:36 | Outpatient (AMB) | payer MEDICARE, SELFPAY ==
--- NOTE | 2022-12-27 10:59 | MHC.OFFVIS ---
Intake Vital Signs 12/27/22 11:00 Height 5 ft 4 in Weight 150 lb 5.684 oz BMI 25.8 BP 102/54 L Blood Pressure Location Lt brachial Position Sitting Pulse 72 Intake Visit Reasons: [facility] follow up Intake Note: hospital follow up Technical Service Rep Required: No Accompanied by: Daughter Allergies adhesive tape [Adhesive Tape] Allergy (Mild, Verified 12/27/22 11:04) CONTACT DERMATITIS cephalexin [CEPHALEXIN] Allergy (Unknown, Verified 12/27/22 11:04) SWELLING latex [Latex] Allergy (Unknown, Verified 12/27/22 11:04) RASH Biaxin Adverse Reaction (Intermediate, Verified 12/27/22 11:04) plapitations bacitracin [From Cortisporin] Adverse Reaction (Mild, Verified 12/27/22 11:04) EYE IRRITATION hydrocortisone [From Cortisporin] Adverse Reaction (Mild, Verified 12/27/22 11:04) EYE IRRITATION neomycin [From Cortisporin] Adverse Reaction (Mild, Verified 12/27/22 11:04) EYE IRRITATION flecainide [From Tambocor] Adverse Reaction (Unknown, Verified 12/27/22 11:04) HEART RACING lisinopril [LISINOPRIL] Adverse Reaction (Unknown, Verified 12/27/22 11:04) cough, nausea Sulfa (Sulfonamide Antibiotics) [SULFA(SULFONAMIDE ANTIBIOTICS)] Adverse Reaction (Unknown, Verified 12/27/22 11:04) PALPITATIONS Medication List - Last Reconciled 12/27/22 by Geoff Callahan MD amlodipine 5 mg PO DAILY apixaban (Eliquis) 5 mg PO BID 90 days calcium carbonate 500 mg PO BID calcium citrate-vitamin D3 315 mg-6.25 mcg (250 unit) (Citracal + Vitamin D Maximum) 1 tab PO DAILY coenzyme Q10 (CoQ-10) 100 mg PO DAILY docusate sodium (Stool Softener) 100 mg PO DAILY estradiol 0.01%(0.1mg/gram) (Estrace) 1 g vaginal MOWEFR ferrous fumarate (Ferrocite) 324 mg PO DAILY gabapentin 100 mg PO TID hydrochlorothiazide 25 mg PO DAILY insulin glargine (Lantus Solostar U-100 Insulin) 20 units (0.2 mL) subcut BEDTIME insulin lispro (Humalog KwikPen U-200 Insulin) 35 units (0.175 mL) subcut BEDTIME losartan 50 mg PO DAILY magnesium 500 mg PO DAILY@1700 mecobalamin (vitamin B12) 1,000 mcg sublingual DAILY metformin 1,000 mg PO BID metoprolol succinate ER 25 mg See Protocol PO DAILY 90 days pantoprazole 40 mg PO BID pen needle, diabetic (BD Ultra-Fine Mini Pen Needle) As directed QID ac and hs rosuvastatin 5 mg PO MOWEFR 90 days spironolactone 25 mg PO DAILY vitamins A,C,I-ltfw-twviyo 2,148 mcg-113 mg-45 mg-17.4mg (PreserVision AREDS) 2 tabs PO BID HPI HPI Comments History of Present Illness Details Aminah returns for follow-up regarding atrial fibrillation and hypertension. She is maintained on beta-blockers for rate control. In the past, she was also on digoxin but due to significant bradycardia that was stopped. She was last seen about a month ago and was generally doing okay. However, about 10 days ago she came to the emergency room with shortness of breath. At that time, it was felt that she was having a new left bundle-branch block and there was concern for acute coronary syndrome. Subsequently, sent to [facility] for further care. However, did not undergo any angiogram but rather had an echocardiogram and stress test and treated for congestive heart failure. The only medication that I can see is new is spironolactone. Since that discharge, it seems that she has been diuresed quite a bit and she feels rather dehydrated. Blood pressure is running on the lower side. She is somewhat dizzy but can not say if it is truly dizziness or if it is a vision problem. Otherwise, essentially back to her baseline. [facility] Medical History (Updated 12/27/22 @ 11:55 by Geoff Callahan MD) Urinary tract infection Paroxysmal atrial fibrillation Cholelithiasis Renal cyst Pulmonary hypertension Non-rheumatic mitral regurgitation Permanent atrial fibrillation Right nephrolithiasis Compression deformity of vertebra Early satiety Microcytic anemia Heartburn Atrophic vaginitis Osteopenia Osteoarthritis of knees, bilateral Essential hypertension Dyslipidemia Type 2 diabetes mellitus with kidney complication, 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 Son No problems noted. Daughter No problems noted. Social History Household Members: Spouse Housing: House Do you presently have visiting nurse or other home services: No Alcohol intake: never Patient Tobacco Use Status: Never used Tobacco e-Cigarette/Vaping Use: Never Used service: No Current occupational status: retired Cognitive needs: No Hearing needs: Yes Vision needs: Yes Review of Systems Const Denies weakness ENT Denies dizziness Card Denies chest pain, Denies chest pain with activity, Denies syncope, Denies rapid heart rate, Denies pedal edema, Denies edema, Denies leg edema, Denies lightheadedness, Denies palpitations, Denies dyspnea, Denies dyspnea on exertion and Denies orthopnea Resp Denies cough, Denies dyspnea and Denies dyspnea on exertion GI Denies hematochezia and Denies change in stool character Musc Denies abnormal gait, Denies muscle cramps, Denies muscle weakness, Denies numbness, Denies radiating pain into limb and Denies tingling Neuro Denies abnormal gait, Denies dizziness, Denies syncope, Denies numbness, Denies tingling and Denies weakness Endo Denies palpitations Physical Exam Vital Signs: Last Vital Signs Pulse 72 12/27/22 11:00 BP 102/54 L 12/27/22 11:00 BMI result Body Mass Index 25.8 Const General: comfortable and no acute distress Orientation/consciousness: patient oriented x3 HEENT Other: Unremarkable Head: Yes normal to inspection Neck Neck: Yes normal visual inspection Chest Chest palpation & inspection: normal inspection of the chest Resp Auscultation: clear to auscultation bilaterally Cardio Palpation: normal PMI Heart sounds: S1 normal heart sound present, S2 normal heart sound present, no gallops, Murmur heart sound present systolic II/ and no rubs GI Palpation (GI): Soft to palpation Back/Spine/Pelvis Other: unremarkable Skin General skin exam: no rashes or lesions noted Neuro General: patient oriented x3 Extrem General: Yes normal to inspection Psych Mental Status: mental status grossly normal Assessment & Plan Assessment & Plan (1) Acute on chronic diastolic (congestive) heart failure: Code(s): I50.33 - Acute on chronic diastolic (congestive) heart failure Plan: Echocardiogram [facility] shows LVEF of 45-49%. There is moderate mitral regurgitation moderate to severe tricuspid regurgitation. Moderate pulmonary hypertension. Clinically, not appearing to be volume overloaded. In fact, she states she feels dehydrated rather. For diuretics, on hydrochlorothiazide and spironolactone. Apparently, there was a concern for sulfa allergy. We can check some labs including BMP/cardiac BNP. Further changes based on findings. Nuclear stress Test part still pending and records have been requested. (2) Permanent atrial fibrillation: Code(s): I48.21 - Permanent atrial fibrillation Plan: Continue metoprolol/Eliquis. No changes. (3) Essential hypertension: Code(s): I10 - Essential (primary) hypertension Plan: In the past, blood pressure was running on the higher side but in the last few days after discharge, it is running on the lower side. Some pressures are in the 80s and 90s at home. Could be because of diuretics. We will check labs. In the interim, no changes. If necessary, will cut back on the amlodipine which has caused leg swelling in the past at a higher dose. (4) Pulmonary hypertension: Code(s): I27.20 - Pulmonary hypertension, unspecified Plan: Likely all from atrial fibrillation as well as left heart dysfunction. No specific management for this. Plan Discussed with daughter who came for appointment. Orders: Orders Basic Metabolic Panel Today I50.22 - Chronic systolic (congestive) heart failure B Type Natriuretic Peptide Today I50.9 - Heart failure, unspecified Coding Level of Care Code Est Pt Level 4 (56934) Diagnoses Acute on chronic diastolic (congestive) heart failure I50.33 Permanent atrial fibrillation I48.21 Essential hypertension I10 Pulmonary hypertension I27.20
[2022-12-27 11:00] VITALS: BP 102/54; PULSE 72; BMI 25.8
== END 2022-12-27 11:39 | disposition home or self-care (01) ==
PROVIDERS: PCP Internal Medicine; Visit Provider Internal Medicine
DX: I50.33 Acute on chronic diastolic (congestive) heart failure (principal); I48.21 Permanent atrial fibrillation; I10 Essential (primary) hypertension; I27.20 Pulmonary hypertension, unspecified
CPT/HCPCS: 99214

== ENCOUNTER 2022-12-27 10:36 | Outpatient (REF) | payer MEDICARE, SELFPAY | END 2022-12-27 10:37 | disposition home or self-care (01) | LOC: HO.LAB 10:36 | PROVIDERS: PCP Internal Medicine; Visit Provider Internal Medicine | DX: I11.0 Hypertensive heart disease with heart failure (principal); I50.33 Acute on chronic diastolic (congestive) heart failure; I48.21 Permanent atrial fibrillation; I27.20 Pulmonary hypertension, unspecified; Z79.01 Long term (current) use of anticoagulants; Z79.899 Other long term (current) drug therapy | CPT/HCPCS: 36415; 80048; 83880; 99212 ==

== ENCOUNTER 2023-01-03 08:48 | Outpatient (AMB) | payer MEDICARE, SELFPAY ==
--- NOTE | 2023-01-03 09:04 | A.OFFPC_ITS ---
Vital Signs 01/03/23 09:05 Height 5 ft 4 in Weight 158 lb 8 oz BMI 27.2 BP 130/68 Blood Pressure Location Lt brachial Position Sitting Pulse 61 Pulse Source Pulse Oximeter Pulse Oximetry (%) 97 Oxygen Delivery Method Room Air Intake Visit Reasons: HDF [place] 12/24 Intake Note: pt is here for HDF from [facility] Allergies adhesive tape [Adhesive Tape] Allergy (Mild, Verified 09/19/23 01:39) CONTACT DERMATITIS cephalexin [CEPHALEXIN] Allergy (Unknown, Verified 09/19/23 01:39) SWELLING latex [Latex] Allergy (Unknown, Verified 09/19/23 01:39) RASH Biaxin Adverse Reaction (Intermediate, Verified 09/19/23 01:39) plapitations bacitracin [From Cortisporin] Adverse Reaction (Mild, Verified 09/19/23 01:39) EYE IRRITATION hydrocortisone [From Cortisporin] Adverse Reaction (Mild, Verified 09/19/23 01:39) EYE IRRITATION neomycin [From Cortisporin] Adverse Reaction (Mild, Verified 09/19/23 01:39) EYE IRRITATION flecainide [From Tambocor] Adverse Reaction (Unknown, Verified 09/19/23 01:39) HEART RACING lisinopril [LISINOPRIL] Adverse Reaction (Unknown, Verified 09/19/23 01:39) cough, nausea Sulfa (Sulfonamide Antibiotics) [SULFA(SULFONAMIDE ANTIBIOTICS)] Adverse Reaction (Unknown, Verified 09/19/23 01:39) PALPITATIONS Medication List - Last Reconciled 01/03/23 by Patricia Nicole MD apixaban (Eliquis) 5 mg PO BID 90 days coenzyme Q10 (CoQ-10) 100 mg PO DAILY estradiol 0.01%(0.1mg/gram) (Estrace) 1 g vaginal MOWEFR gabapentin 100 mg PO TID hydrochlorothiazide 25 mg PO DAILY insulin glargine (Lantus Solostar U-100 Insulin) 20 units (0.2 mL) subcut BEDTIME insulin lispro (Humalog KwikPen U-200 Insulin) 35 units (0.175 mL) subcut BEDTIME losartan 50 mg PO DAILY magnesium 500 mg PO DAILY@1700 mecobalamin (vitamin B12) 1,000 mcg sublingual DAILY melatonin 6 mg PO BEDTIME metformin 1,000 mg PO BID metoprolol succinate ER 25 mg See Protocol PO DAILY 90 days pantoprazole 40 mg PO BID pen needle, diabetic (BD Ultra-Fine Mini Pen Needle) As directed QID ac and hs rosuvastatin 5 mg PO MOWEFR 90 days spironolactone 25 mg PO DAILY vitamins A,C,B-tztl-jqjwfz 2,148 mcg-113 mg-45 mg-17.4mg (PreserVision AREDS) 2 tabs PO BID Tobacco use date assessed: 01/03/23 Fall risk assessment: 1 Fall in past year Last assessed Fall Risk: 01/03/23 Dental Screening Dental Screen Date: 01/03/23 Did you have a dental visit in the last 12 months?: Yes Did you have a dental problem in the last 6 months where you did not have access to dental care?: No Was dental information given to patient?: Patient has dentist HPI [facility] 12/24 HPI Details 82-year-old lady with history of AFib on Eliquis, pulmonary hypertension, hypertension dyslipidemia, diabetes mellitus, previous lobectomy presenting today for follow-up after recent hospital admission at [facility], for suspected flash pulmonary edema and possible pneumonia. On admission she was found to have a new moderately reduced with ejection fraction. She had BiPAP treatment with good affect and stabilized. She was continued on amlodipine 5 mg daily and losartan 50 mg daily and added Toprol-XL 25 mg daily. She also was noted to be anemic with iron saturation at 11%, was started on ferrous sulfate 325 mg daily. Had several episodes of hypoglycemia during admission, Lantus dose was increased to 10 units daily at night. Echocardiogram done showed LVEF at 45-49%, mild aortic stenosis, moderate mitral regurgitation, [id number] TR and elevated right ventricular systolic pressure at 49. Stress test done on December 20 was normal. She continued to improve, was then discharged home, and hydrochlorothiazide 25 mg daily, spironolactone 25 mg daily, pantoprazole 40 mg daily and gabapentin 100 mg 1 tablet twice a day was added to her home medications. At present patient states that she is feeling better, denies any chest pain, no shortness a breath or lightheadedness. [facility] Medical History (Updated 09/19/23 @ 01:50 by Patricia Nicole MD) Congestive heart failure Anemia Moderate aortic stenosis Diabetes mellitus Hypertension Nephrolithiasis Urinary tract infection Paroxysmal atrial fibrillation Cholelithiasis Renal cyst Pulmonary hypertension Non-rheumatic mitral regurgitation Permanent atrial fibrillation Right nephrolithiasis Compression deformity of vertebra Microcytic anemia Heartburn Atrophic vaginitis Osteopenia Osteoarthritis of knees, bilateral Essential hypertension Dyslipidemia Type 2 diabetes mellitus with diabetic neuropathy, with long-term current use of insulin Surgical History History of esophagogastroduodenoscopy (EGD) (~10/2022) History of lumbar discectomy History of lobectomy of lung History of hysterectomy History of total right knee replacement (TKR) Lumbar radiculopathy Family History Father Diabetes mellitus Mother Diabetes mellitus Myocardial infarction Sister Cancer Sister No problems noted. Son No problems noted. Daughter No problems noted. Social History Household Members: None Housing: House Do you presently have visiting nurse or other home services: No Alcohol intake: never Patient Tobacco Use Status: Never used Tobacco e-Cigarette/Vaping Use: Never Used service: No Current occupational status: retired Cognitive needs: No Hearing needs: Yes Vision needs: Yes Questionnaire Thrive Questionnaire Date Thrive assessed: 04/28/22 INGRID-7 AMB Questionnaire INGRID-7 Date INGRID - 7 assessed: 04/28/22 Source: Developed by Drs. Chaz Mayer, Lily Ruggiero, Aayush Severino and colleagues, with an educational melinda from [employer]. Review of Systems Const Reports no additional complaints and Denies headache(s) Eyes Reports no additional complaints ENT Denies dizziness and Denies headache(s) Card Denies chest pain, Denies chest pain at rest, Denies chest pain with activity, Denies leg edema, Denies lightheadedness, Denies palpitations, Denies dyspnea and Denies dyspnea on exertion Resp Denies cough, Denies dyspnea and Denies dyspnea on exertion GI Denies abdominal pain, Denies melena, Denies hematochezia, Denies change in bowel habits and Denies heartburn Reports no additional complaints Musc Denies muscle cramps, Denies muscle weakness, Denies radiating pain into limb, Denies stiffness and Reports tingling (In lower extremities) Neuro Denies dizziness, Denies headache(s), Denies focal weakness and Reports tingling (In lower extremities) Endo Denies palpitations Physical exam (Primary Care) Vital Signs: Last Vital Signs Pulse 61 01/03/23 09:05 BP 130/68 01/03/23 09:05 Pulse Ox 97 01/03/23 09:05 Oxygen Delivery Method Room Air 01/03/23 09:05 BMI result Body Mass Index 27.2 Tobacco/Smoking Status: Tobacco use Status Tobacco use date assessed 01/03/23 01/03/23 09:19 Patient Tobacco Use Status Never used Tobacco 01/03/23 09:19 e-Cigarette/Vaping Use Never Used 01/03/23 09:19 Thrive Assessment: Date of Thrive Assessment Date Thrive assessed 04/28/22 01/03/23 09:19 Const Other: Alert oriented x3, no acute distress noted ambulatory with walker, accompanying patient Orientation/consciousness: patient oriented x3 HENMT Mouth: Normal oral and palatal mucosa present and moist mucous membranes Eyes General: appearance normal, both eyes and all related structures Neck Neck: Yes full ROM, Yes no lymphadenopathy and Yes supple Resp Auscultation: clear to auscultation bilaterally Cardio Other: S1-S2 present regular rate and rhythm power, systolic murmur heard GI Other: Normal bowel sounds, soft, nontender, with no mass palpated General: Yes no CVA tenderness Back/Spine/Pelvis Back: no CVA tenderness Skin General skin exam: no rashes or lesions noted Neuro General: patient oriented x3, tone normal, moves all extremities and no focal m otor deficits Extrem General: Yes full ROM, Yes no joint enlargement and Yes no clubbing, cyanosis or edema Assessment and Plan Assessment & Plan (1) Paroxysmal atrial fibrillation: Code(s): I48.0 - Paroxysmal atrial fibrillation Plan: Continued on Eliquis, currently on metoprolol succinate, followed by cardiology (2) Essential hypertension: Code(s): I10 - Essential (primary) hypertension Plan: Blood pressure at goal of less than 130/80. Continue with current medication. Reinforced importance of following a low sodium diet, getting regular exercise, and lowering stress levels. Fasting basic metabolic panel ordered (3) Dyslipidemia: Code(s): E78.5 - Hyperlipidemia, unspecified Plan: Continue rosuvastatin 5 mg 3 times a week, fasting lipid panel ordered (4) Type 2 diabetes mellitus with diabetic neuropathy, with long-term current use of insulin: Code(s): E11.40 - Type 2 diabetes mellitus with diabetic neuropathy, unspecified; Z79.4 - intermediate (current) use of insulin Plan: Continued on metformin, Lantus, or hemoglobin A1c Orders: Orders Alanine Aminotransferase 01/04/23 I48.0 - Paroxysmal atrial fibrillation, E53.8 - Deficiency of other specified B group vitamins, M85.80 - Other specified disorders of bone density and structure, unspecified site, I10 - Essential (primary) hypertension, E78.5 - Hyperlipidemia, unspecified, E11.40 - Type 2 diabetes mellitus with diabetic neuropathy, unspecified, Z79.4 - ad terminal makeup operator (current) use of insulin, N95.2 - Postmenopausal atrophic vaginitis Aspartate Amino Transferase 01/04/23 I48.0 - Paroxysmal atrial fibrillation, E53.8 - Deficiency of other specified B group vitamins, M85.80 - Other specified disorders of bone density and structure, unspecified site, I10 - Essential (primary) hypertension, E78.5 - Hyperlipidemia, unspecified, E11.40 - Type 2 diabetes mellitus with diabetic neuropathy, unspecified, Z79.4 - ad terminal makeup operator (current) use of insulin, N95.2 - Postmenopausal atrophic vaginitis Hemoglobin A1c 01/04/23 I48.0 - Paroxysmal atrial fibrillation, E53.8 - Deficiency of other specified B group vitamins, M85.80 - Other specified disor ders of bone density and structure, unspecified site, I10 - Essential (primary) hypertension, E78.5 - Hyperlipidemia, unspecified, E11.40 - Type 2 diabetes mellitus with diabetic neuropathy, unspecified, Z79.4 - intermediate (current) use of insulin, N95.2 - Postmenopausal atrophic vaginitis Lipid Panel 01/04/23 I48.0 - Paroxysmal atrial fibrillation, E53.8 - Deficiency of other specified B group vitamins, M85.80 - Other specified disorders of bone density and structure, unspecified site, I10 - Essential (primary) hypertension, E78.5 - Hyperlipidemia, unspecified, E11.40 - Type 2 diabetes mellitus with diabetic neuropathy, unspecified, Z79.4 - intermediate (current) use of insulin, N95.2 - Postmenopausal atrophic vaginitis Vitamin D 25-OH Total 01/04/23 I48.0 - Paroxysmal atrial fibrillation, E53.8 - Deficiency of other specified B group vitamins, M85.80 - Other specified disorders of bone density and structure, unspecified site, I10 - Essential (primary) hypertension, E78.5 - Hyperlipidemia, unspecified, E11.40 - Type 2 diabetes mellitus with diabetic neuropathy, unspecified, Z79.4 - ad terminal makeup operator (current) use of insulin, N95.2 - Postmenopausal atrophic vaginitis Vitamin B12 and Folate 01/03/23 I48.0 - Paroxysmal atrial fibrillation, E53.8 - Deficiency of other specified B group vitamins, M85.80 - Other specified disorders of bone density and structure, unspecified site, I10 - Essential (primary) hypertension, E78.5 - Hyperlipidemia, unspecified, E11.40 - Type 2 diabetes mellitus with diabetic neuropathy, unspecified, Z79.4 - ad terminal makeup operator (current) use of insulin, N95.2 - Postmenopausal atrophic vaginitis Coding Level of Care Code Est Pt Level 4 (50289) Complex EM visit Add On G2211 Diagnoses Paroxysmal atrial fibrillation I48.0 Essential hypertension I10 Dyslipidemia E78.5 Type 2 diabetes mellitus with diabetic neuropathy, with long-term current use of insulin E11.40; Z79.4
[2023-01-03 09:05] VITALS: BP 130/68; PULSE 61; O2SAT 97; BMI 27.2
== END 2023-01-03 13:05 | disposition home or self-care (01) ==
PROVIDERS: PCP Internal Medicine; Visit Provider Internal Medicine
DX: I48.0 Paroxysmal atrial fibrillation (principal); E11.40 Type 2 diabetes mellitus with diabetic neuropathy, unspecified; Z79.4 Long term (current) use of insulin; I10 Essential (primary) hypertension; E78.5 Hyperlipidemia, unspecified
CPT/HCPCS: 99214; G2211

== ENCOUNTER 2023-01-04 07:34 | Outpatient (REF) | payer MEDICARE, SELFPAY ==
[2023-01-04 11:34] LABS: Estimated Average Glucose 154 mg/dL
[2023-01-04 12:39] LABS: Vitamin D 25-OH Total 55.7 ng/mL (>30)
[2023-01-04 12:45] LABS: Alanine Aminotransferase 12 U/L (0-31); Aspartate Amino Transferase 17 U/L (5-31); Cholesterol 157 mg/dL (<200); HDL Cholesterol 55 mg/dL (>40); LDL Cholesterol Calculated 81 mg/dL (<100); Triglycerides 109 mg/dL (<150)
== END 2023-01-04 07:35 | disposition home or self-care (01) ==
LOC: HO.HMGCLDS 07:34
PROVIDERS: PCP Internal Medicine; Visit Provider Internal Medicine
DX: I48.0 Paroxysmal atrial fibrillation (principal); E53.8 Deficiency of other specified B group vitamins; M85.80 Other specified disorders of bone density and structure, unspecified site; I10 Essential (primary) hypertension; E78.5 Hyperlipidemia, unspecified; E11.40 Type 2 diabetes mellitus with diabetic neuropathy, unspecified; N95.2 Postmenopausal atrophic vaginitis; Z79.4 Long term (current) use of insulin
CPT/HCPCS: 36415; 80061; 82306; 83036; 84450; 84460

== ENCOUNTER 2023-01-12 15:07 | Outpatient (REF) | payer MEDICARE, SELFPAY ==
[2023-01-12 15:59] LABS: Iron 44 mcg/dL (30-160); Percent Iron Saturation 13 % (15-50); Total Iron Binding Capacity 344 mcg/dL (228-428); Unsaturated Iron Binding 300 ug/dL
[2023-01-12 16:34] LABS: Folate 11.5 ng/mL (> or = 4.0); Vitamin B12 705 pg/mL (200-900)
== END 2023-01-12 15:08 | disposition home or self-care (01) ==
LOC: HO.LNP 15:07
PROVIDERS: Visit Provider Internal Medicine
DX: I48.0 Paroxysmal atrial fibrillation (principal); E53.8 Deficiency of other specified B group vitamins; M85.80 Other specified disorders of bone density and structure, unspecified site
CPT/HCPCS: 82607; 82746; 83540

== ENCOUNTER 2023-01-16 12:45 | Outpatient (REF) | payer MEDICARE, SELFPAY | END 2023-01-16 12:46 | disposition home or self-care (01) | LOC: HO.HVNA 12:45 | PROVIDERS: PCP Internal Medicine; Visit Provider Internal Medicine | DX: E53.8 Deficiency of other specified B group vitamins (principal); I48.0 Paroxysmal atrial fibrillation | CPT/HCPCS: 36415 ==

== ENCOUNTER 2023-01-25 13:18 | Outpatient (AMB) | payer MEDICARE, SELFPAY ==
--- NOTE | 2023-01-25 13:30 | A.OFFVIS_ITS ---
Intake Vital Signs 01/25/23 13:37 Height 5 ft 4 in Weight 156 lb 8.451 oz BMI 26.9 BP 108/52 L Blood Pressure Location Lt brachial Position Sitting Pulse 71 Intake Visit Reasons: 4 wk f/up per HS Intake Note: 4 week follow up [employer] Teacher Required: No Accompanied by: Daughter Allergies adhesive tape [Adhesive Tape] Allergy (Mild, Verified 01/25/23 13:34) CONTACT DERMATITIS cephalexin [CEPHALEXIN] Allergy (Unknown, Verified 01/25/23 13:34) SWELLING latex [Latex] Allergy (Unknown, Verified 01/25/23 13:34) RASH Biaxin Adverse Reaction (Intermediate, Verified 01/25/23 13:34) plapitations bacitracin [From Cortisporin] Adverse Reaction (Mild, Verified 01/25/23 13:34) EYE IRRITATION hydrocortisone [From Cortisporin] Adverse Reaction (Mild, Verified 01/25/23 13:34) EYE IRRITATION neomycin [From Cortisporin] Adverse Reaction (Mild, Verified 01/25/23 13:34) EYE IRRITATION flecainide [From Tambocor] Adverse Reaction (Unknown, Verified 01/25/23 13:34) HEART RACING lisinopril [LISINOPRIL] Adverse Reaction (Unknown, Verified 01/25/23 13:34) cough, nausea Sulfa (Sulfonamide Antibiotics) [SULFA(SULFONAMIDE ANTIBIOTICS)] Adverse Reaction (Unknown, Verified 01/25/23 13:34) PALPITATIONS Medication List - Last Reconciled 01/25/23 by Geoff Callahan MD amlodipine 5 mg PO DAILY apixaban (Eliquis) 5 mg PO BID 90 days coenzyme Q10 (CoQ-10) 100 mg PO DAILY estradiol 0.01%(0.1mg/gram) (Estrace) 1 g vaginal MOWEFR famotidine 10 mg PO DAILY gabapentin 100 mg PO BEDTIME hydrochlorothiazide 25 mg PO DAILY insulin glargine (Lantus Solostar U-100 Insulin) 20 units (0.2 mL) subcut BEDTIME insulin lispro (Humalog KwikPen U-200 Insulin) 35 units (0.175 mL) subcut BEDTIME losartan 50 mg PO DAILY magnesium 500 mg PO DAILY@1700 metformin 1,000 mg PO BID metoprolol succinate ER 25 mg See Protocol PO DAILY 90 days pantoprazole 40 mg PO DAILY pen needle, diabetic (BD Ultra-Fine Mini Pen Needle) As directed QID ac and hs rosuvastatin 5 mg PO MOWEFR 90 days spironolactone 25 mg PO DAILY vitamins A,C,V-vmya-kcqlbm 2,148 mcg-113 mg-45 mg-17.4mg (PreserVision AREDS) 2 tabs PO BID HPI HPI Comments History of Present Illness Details Aminah returns for follow-up regarding atrial fibrillation and hypertension. She is maintained on beta-blockers for rate control. In the past, she was also on digoxin, but due to significant bradycardia that was stopped. Few weeks ago, she came to the ER with shortness of breath. At that time, it was felt that she was having a new left bundle-branch block and there was co ncern for acute coronary syndrome. Subsequently, sent to [facility] for further care. However, did not undergo any angiogram but rather had an echocardiogram and stress test and treated for congestive heart failure. Only new medication is spironolactone. Then when she was seen in follow-up, she was feeling dehydrated and having low blood pressures. Any case, that seems to improved and her pressures at home seem to be rather on the higher side. Today it is again slightly lowish. Overall, she feels fine. No significant heart failure symptoms. 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 Son No problems noted. Daughter No problems noted. Social History Household Members: Spouse Housing: House Do you presently have visiting nurse or other home services: No Alcohol intake: never Patient Tobacco Use Status: Never used Tobacco e-Cigarette/Vaping Use: Never Used service: No Current occupational status: retired Cognitive needs: No Hearing needs: Yes Vision needs: Yes Review of Systems Const Denies weakness ENT Denies dizziness Card Denies chest pain, Denies chest pain with activity, Denies syncope, Denies rapid heart rate, Denies pedal edema, Denies edema, Denies leg edema, Denies lightheadedness, Denies palpitations, Denies dyspnea, Denies dyspnea on exertion and Denies orthopnea Resp Denies cough, Denies dyspnea and Denies dyspnea on exertion GI Denies hematochezia and Denies change in stool character Musc Denies abnormal gait, Denies muscle cramps, Denies muscle weakness, Denies numbness, Denies radiating pain into limb and Denies tingling Neuro Denies abnormal gait, Denies dizziness, Denies syncope, Denies numbness, Denies tingling and Denies weakness Endo Denies palpitations Physical Exam Vital Signs: Last Vital Signs Pulse 71 01/25/23 13:37 BP 108/52 L 01/25/23 13:37 BMI result Body Mass Index 26.9 Const General: comfortable and no acute distress Orientation/consciousness: patient oriented x3 HEENT Other: Unremarkable Head: Yes normal to inspection Neck Neck: Yes normal visual inspection Chest Chest palpation & inspection: normal inspection of the chest Resp Auscultation: clear to auscultation bilaterally Cardio Palpation: normal PMI Heart sounds: S1 normal heart sound present, S2 normal heart sound present, no g allops, Murmur heart sound present systolic II/ and no rubs GI Palpation (GI): Soft to palpation Back/Spine/Pelvis Other: unremarkable Skin General skin exam: no rashes or lesions noted Neuro General: patient oriented x3 Extrem General: Yes normal to inspection Psych Mental Status: mental status grossly normal Assessment & Plan Assessment & Plan (1) Acute on chronic diastolic (congestive) heart failure: Code(s): I50.33 - Acute on chronic diastolic (congestive) heart failure Plan: Echocardiogram [facility] shows LVEF of 45-49%. There is moderate mitral regurgitation, moderate to severe tricuspid regurgitation. Moderate pulmonary hypertension. In the discharge summary, stress test mention to be normal. Clinically, not appearing to be volume overloaded. For diuretics, on hydrochlorothiazide and spironolactone. Apparently, there was a concern for sulfa allergy. Otherwise, generally stable. They will continue to monitor her clinical situation regularly and contact us. Recent labs are unremarkable. Cardiac BNP is also well within normal limits. In fact, it has always been this way. (2) Tricuspid regurgitation: Code(s): I07.1 - Rheumatic tricuspid insufficiency Qualifiers: Cardiac valve disease etiology: nonrheumatic Qualified Code(s): I36.1 - Nonrheumatic tricuspid (valve) insufficiency Plan: Clinically, no overt edema. (3) Permanent atrial fibrillation: Code(s): I48.21 - Permanent atrial fibrillation Plan: Continue metoprolol/Eliquis. No changes. (4) Essential hypertension: Code(s): I10 - Essential (primary) hypertension Plan: Stable. No changes. (5) Pulmonary hypertension: Code(s): I27.20 - Pulmonary hypertension, unspecified Plan: Likely all from atrial fibrillation as well as left heart dysfunction. No specific management for this. Plan Discussed with daughter who came for appointment. Coding Level of Care Code Est Pt Level 4 (99734) Diagnoses Acute on chronic diastolic (congestive) heart failure I50.33 Nonrheumatic tricuspid valve regurgitation I36.1 Cardiac valve disease etiology: nonrheumatic Permanent atrial fibrillation I48.21 Essential hypertension I10 Pulmonary hypertension I27.20
[2023-01-25 13:37] VITALS: BP 108/52; PULSE 71; BMI 26.9
== END 2023-01-25 13:54 | disposition home or self-care (01) ==
PROVIDERS: PCP Internal Medicine; Visit Provider Internal Medicine
DX: I50.33 Acute on chronic diastolic (congestive) heart failure (principal); I36.1 Nonrheumatic tricuspid (valve) insufficiency; I48.21 Permanent atrial fibrillation; I10 Essential (primary) hypertension; I27.20 Pulmonary hypertension, unspecified
CPT/HCPCS: 99214

== ENCOUNTER → 2023-01-25 13:18 | Outpatient (BNVA) | payer MEDICARE, SELFPAY | PROVIDERS: PCP Internal Medicine; Visit Provider Internal Medicine | DX: I11.0 Hypertensive heart disease with heart failure (principal); I50.33 Acute on chronic diastolic (congestive) heart failure; I48.21 Permanent atrial fibrillation; I36.1 Nonrheumatic tricuspid (valve) insufficiency; I27.20 Pulmonary hypertension, unspecified | CPT/HCPCS: 99212 ==

== ENCOUNTER 2023-01-30 07:25 | Outpatient (REF) | payer MEDICARE, SELFPAY ==
[2023-01-30 11:46] LABS: Appearance Urine Clear; Color Urine Yellow; Glucose Urine UA Negative (Negative); Leukocyte Esterase Urine Negative (Negative); Nitrite Urine Negative (Negative); Specific Gravity - Urine <= 1.005 (1.005-1.025); Urine Blood Negative (Negative); Urine Ketones Negative (Negative); Urine Protein Negative (Neg-Trace)
[2023-01-30 12:06] LABS: Anion Gap 14 (12-20); Blood Urea Nitrogen 14 mg/dL (9-16); Calcium 9.5 mg/dL (8.4-10.2); Carbon Dioxide 28 mmol/L (22-29); Chloride 100 mmol/L (96-108); Estimated Glomerular Filt Rate > 60; Potassium 3.6 mmol/L (3.3-5.1); Sodium 138 mmol/L (135-145)
[2023-01-30 12:18] LABS: Microalbum/Creatinine Ratio Ur 80.9 ug/mg cr (<30); Total Protein Urine Random < 7 mg/dL (<12)
[2023-01-30 12:35] LABS: Bacteria Urine None Seen (None Seen); Hyaline Casts Urine 0-2 /LPF (0-2); RBC Urine 0-2 /HPF (0-2); Squamous Epithelial Cell Urine 0-2 /HPF (0-2); WBC Urine 0-5 /HPF (0-5)
== END 2023-01-30 07:26 | disposition home or self-care (01) ==
LOC: HO.HMGCLDS 07:25
PROVIDERS: Absent Provider Internal Medicine Nephrology; PCP Internal Medicine; Visit Provider Internal Medicine
DX: I12.9 Hypertensive chronic kidney disease with stage 1 through stage 4 chronic kidney disease, or unspecified chronic kidney disease (principal); E11.22 Type 2 diabetes mellitus with diabetic chronic kidney disease; E11.21 Type 2 diabetes mellitus with diabetic nephropathy; E87.5 Hyperkalemia; R80.1 Persistent proteinuria, unspecified
CPT/HCPCS: 36415; 80051; 81001; 82043; 82310; 82565; 82570; 84156; 84520

== ENCOUNTER 2023-05-07 13:21 | Outpatient (REF) | payer MEDICARE, SELFPAY ==
--- NOTE | ~2023-05-07 | MM_ITS ---
EXAMINATION: MM SCREENING DIGITAL BREAST TOMOSYNTHESIS, BILATERAL CLINICAL INFORMATION: Screening. Asymptomatic. COMPARISON: Mammography: This study is compared with prior exams dating back to 2019. TECHNIQUE: Digital breast tomosynthesis is performed in both the craniocaudal and mediolateral oblique views along with computer-aided detection (CAD). Synthesized 2D images are generated from the tomosynthesis. FINDINGS: The breasts are heterogeneously dense, which may obscure small masses (ACR BI-RADS breast composition Category c). There are no significant masses, abnormal calcifications, or other abnormalities. There are bilateral benign calcifications. MM/MM tomosynthesis screening BI IMPRESSION: No mammographic evidence of malignancy. ASSESSMENT: BI-RADS BI-RADS 2 - Benign Findings RECOMMENDATION: Routine annual mammography screening. 1 year F/U This examination should not preclude the clinical evaluation of a suspicious palpable abnormality. This patient's information was entered into a reminder system with a target due date for their next mammogram.
== END 2023-05-07 13:22 | disposition home or self-care (01) ==
LOC: HO.MAMMO 13:21
PROVIDERS: PCP Internal Medicine; Visit Provider Internal Medicine
DX: Z12.31 Encounter for screening mammogram for malignant neoplasm of breast (principal)
CPT/HCPCS: 77063; 77067

== ENCOUNTER → 2023-05-07 13:30 | Outpatient (BNV) | payer MEDICARE, SELFPAY | PROVIDERS: PCP Internal Medicine; Visit Provider Radiology Diagnostic Radiology | DX: Z12.31 Encounter for screening mammogram for malignant neoplasm of breast (principal) | CPT/HCPCS: 77063; 77067 ==

== ENCOUNTER 2023-05-28 13:19 | Outpatient (AMB) | payer MEDICARE, SELFPAY ==
[2023-05-28 14:21] VITALS: BP 114/62; PULSE 67
--- NOTE | 2023-05-28 14:21 | A.OFFVIS_ITS ---
Intake Vital Signs 05/28/23 14:21 Height 5 ft 4 in BP 114/62 Blood Pressure Location Lt brachial Pulse 67 Pulse Source Pulse Oximeter Intake Visit Reasons: 6 mth f/up Supply Chain Analyst Required: No Team Facilitator: Team Facilitator Present Allergies adhesive tape [Adhesive Tape] Allergy (Mild, Verified 05/28/23 14:22) CONTACT DERMATITIS cephalexin [CEPHALEXIN] Allergy (Unknown, Verified 05/28/23 14:22) SWELLING latex [Latex] Allergy (Unknown, Verified 05/28/23 14:22) RASH Biaxin Adverse Reaction (Intermediate, Verified 05/28/23 14:22) plapitations bacitracin [From Cortisporin] Adverse Reaction (Mild, Verified 05/28/23 14:22) EYE IRRITATION hydrocortisone [From Cortisporin] Adverse Reaction (Mild, Verified 05/28/23 14:22) EYE IRRITATION neomycin [From Cortisporin] Adverse Reaction (Mild, Verified 05/28/23 14:22) EYE IRRITATION flecainide [From Tambocor] Adverse Reaction (Unknown, Verified 05/28/23 14:22) HEART RACING lisinopril [LISINOPRIL] Adverse Reaction (Unknown, Verified 05/28/23 14:22) cough, nausea Sulfa (Sulfonamide Antibiotics) [SULFA(SULFONAMIDE ANTIBIOTICS)] Adverse Reaction (Unknown, Verified 05/28/23 14:22) PALPITATIONS Medication List - Last Reconciled 05/28/23 by Cortney Hale NP-C amlodipine 5 mg PO DAILY 90 days apixaban (Eliquis) 5 mg PO BID coenzyme Q10 (CoQ-10) 100 mg PO DAILY estradiol 0.01%(0.1mg/gram) (Estrace) 1 g vaginal MOWEFR famotidine 10 mg PO DAILY gabapentin 100 mg PO BEDTIME hydrochlorothiazide 25 mg PO DAILY insulin glargine (Lantus Solostar U-100 Insulin) 20 units (0.2 mL) subcut BEDTIME insulin lispro (Humalog KwikPen U-200 Insulin) 35 units (0.175 mL) subcut BEDTIME losartan 50 mg PO DAILY magnesium 500 mg PO DAILY@1700 metformin 1,000 mg PO BID metoprolol succinate ER 25 mg See Protocol PO DAILY 90 days pantoprazole 40 mg PO DAILY pen needle, diabetic (BD Ultra-Fine Mini Pen Needle) As directed QID ac and hs rosuvastatin 5 mg PO MOWEFR 90 days spironolactone 25 mg PO DAILY vitamins A,C,E-xutb-tjseor 2,148 mcg-113 mg-45 mg-17.4mg (PreserVision AREDS) 2 tabs PO BID HPI 6 mth f/up HPI Details Aminah is an 82-year-old female past medical history of hypertension, hyperlipidemia, diabetes, diastolic heart failure, chronic atrial fibrillation who presents for follow-up. Today she reports that she has been feeling well since her last visit. She has not had any chest discomfort at rest or with activity. She denies shortness of breath, PND, orthopnea or edema. She will feel an occasional heart palpitation however nothing concerning. No presyncope, syncope, falls. She has some unsteadiness at times and ambulates with her walker. She sleeps with 1 pillow. Taking all meds as directed. No bleeding issues reported. is present. 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 Son No problems noted. Daughter No problems noted. Social History Household Members: Spouse Housing: House Do you presently have visiting nurse or other home services: No Alcohol intake: never Patient Tobacco Use Status: Never used Tobacco e-Cigarette/Vaping Use: Never Used service: No Current occupational status: retired Cognitive needs: No Hearing needs: Yes Vision needs: Yes Review of Systems Const All systems reviewed & are unremarkable except as noted in HPI and below ENT Denies dizziness Card Details: Ankle swelling at times Denies chest pain, Denies chest pain at rest, Denies chest pain with activity, Reports rapid heart rate, Denies pedal edema, Denies edema, Denies leg edema, Denies lightheadedness, Denies palpitations, Denies dyspnea, Denies dyspnea on exertion and Denies orthopnea Resp Denies cough, Denies dyspnea and Denies dyspnea on exertion GI Denies hematochezia and Denies change in stool character Musc Denies abnormal gait, Denies limited range of motion, Denies muscle cramps, Denies muscle weakness, Denies numbness, Denies radiating pain into limb, Denies stiffness and Denies tingling Neuro Denies abnormal gait, Denies dizziness, Denies numbness and Denies tingling Endo Denies palpitations Physical Exam Vital Signs: Last Vital Signs Pulse 67 05/28/23 14:21 BP 114/62 05/28/23 14:21 Const General: cooperative, healthy appearing, comfortable and no acute distress Orientation/consciousness: patient oriented x3 Neck Neck: Yes normal visual inspection and Yes no JVD Resp Effort & Inspection: normal respiratory effort Auscultation: clear to auscultation bilaterally, no crackles, no rales, no rhonchi and no wheezes Cardio Jugular venous distension: no JVD Rate: regular rate Heart sounds: S1 normal heart sound present, S2 normal heart sound present, Murmur heart sound present and no rubs Neuro General: patient oriented x3 Extrem General: Yes normal to inspection, No no pedal edema and No calf tenderness Psych Appearance: grossly normal Mental Status: mental status grossly normal Speech and movement: Normal speech and movement present Assessment & Plan Assessment & Plan (1) Atrial fibrillation: Code(s): I48.91 - Unspecified atrial fibrillation Plan: History of atrial fibrillation, chronic. She is on metoprolol for heart rate control. Heart rate normal range today, tones irregularly irregular. She is on Eliquis for anticoagulation. No bleeding issues reported. Labs done 01/30/2023 showed creatinine 0.8. Continue current management. (2) Congestive heart failure: Code(s): I50.9 - Heart failure, unspecified Plan: History of diastolic heart failure. Last echocardiogram done 12/19/2022 at [facility] showed EF 45-49%, moderate MR, moderate to severe TR. Heart murmur noted on examination. No clinical signs of heart failure on examination today. She denies having concerning shortness of breath. She co ntinues on hydrochlorothiazide and Aldactone for her diuretics. She says she has an allergy to Lasix. She checks home weights daily. She is currently up about 2 lb. Informed her that if her weight rises 2-3 more lb she is to call us. She may need alternate diuretic use. Signs and symptoms of heart failure reviewed. Will update echo prior to her next visit. (3) Tricuspid regurgitation: Code(s): I07.1 - Rheumatic tricuspid insufficiency Qualifiers: Cardiac valve disease etiology: nonrheumatic Qualified Code(s): I36.1 - Nonrheumatic tricuspid (valve) insufficiency Plan: Last echo with moderate to severe TR (4) Mitral regurgitation: Code(s): I34.0 - Nonrheumatic mitral (valve) insufficiency Plan: Last echo with moderate MR (5) Essential hypertension: Code(s): I10 - Essential (primary) hypertension Plan: Well controlled at this time. Continue current meds including hydrochlorothiazide, Aldactone, losartan, metoprolol. Plan Time spent on chart review, documentation, interview and assessment Orders: Orders CA echo transthoracic complete 5 Months I07.1 - Rheumatic tricuspid insufficiency, I34.0 - Nonrheumatic mitral (valve) insufficiency, I50.9 - Heart failure, unspecified Coding Level of Care Code Est Pt Level 4 (48904) Diagnoses Atrial fibrillation I48.91 Congestive heart failure I50.9 Nonrheumatic tricuspid valve regurgitation I36.1 Cardiac valve disease etiology: nonrheumatic Mitral regurgitation I34.0 Essential hypertension I10 Time Spent (min) 28
== END 2023-05-28 15:03 | disposition home or self-care (01) ==
PROVIDERS: PCP Internal Medicine; Visit Provider Nurse Practitioner Family
DX: I48.91 Unspecified atrial fibrillation (principal); I50.9 Heart failure, unspecified; I36.1 Nonrheumatic tricuspid (valve) insufficiency; I34.0 Nonrheumatic mitral (valve) insufficiency; I10 Essential (primary) hypertension
CPT/HCPCS: 99214

== ENCOUNTER → 2023-05-28 13:19 | Outpatient (BNVA) | payer MEDICARE, SELFPAY | PROVIDERS: PCP Internal Medicine; Visit Provider Nurse Practitioner Family | DX: I48.91 Unspecified atrial fibrillation (principal); I11.0 Hypertensive heart disease with heart failure; I50.9 Heart failure, unspecified; I36.1 Nonrheumatic tricuspid (valve) insufficiency; I34.0 Nonrheumatic mitral (valve) insufficiency | CPT/HCPCS: 99212 ==

== ENCOUNTER 2023-06-13 07:15 | Outpatient (REF) | payer MEDICARE, SELFPAY ==
[2023-06-13 10:17] LABS: MANUAL DIFF FLAG NO
[2023-06-13 10:24] LABS: Basophils Absolute Auto 0.1 X10*3/uL (0.0-0.2); Basophils Percent Auto 0.7 % (0-2); Eosinophils Absolute Auto 0.6 X10*3/uL (0.0-0.4); Eosinophils Percent Auto 7.9 % (0-4); Hematocrit 37.3 % (37.0-47.0); Imm Gran Abs Auto 0.03 X10*3/uL (0.00-0.03); Imm Gran Pct Auto 0.4 % (0.0-0.4); Lymphocytes Absolute Auto 2.4 X10*3/uL (1.2-4.9); Lymphocytes Percent Auto 33.8 % (20-40); Mean Corpuscular HGB Conc 32.2 g/dl (31.0-35.0); Mean Corpuscular Hemoglobin 26.4 pg (27.0-33.0); Mean Corpuscular Volume 82.2 fL (80.0-98.0); Mean Platelet Volume 10.5 fL (9.4-12.3); Monocytes Absolute Auto 0.9 X10*3/uL (0.1-1.2); Monocytes Percent Auto 13.2 % (2-11); Neutrophils Absolute Auto 3.1 x10*3/uL (2.0-8.3); Platelet Count 268 X10*3/uL (160-400); Red Blood Count 4.54 X10*6/uL (4.20-5.50); Red Cell Distribution Width 16.1 % (11.0-16.0); White Blood Count 7.1 X10*3/uL (4.8-10.8)
[2023-06-13 11:02] LABS: Estimated Average Glucose 157 mg/dL; Hemoglobin A1c % 7.1 % (<6.0)
[2023-06-13 11:15] LABS: Alanine Aminotransferase 10 U/L (0-31)
[2023-06-13 11:25] LABS: Folate 10.6 ng/mL (> or = 4.0); Vitamin B12 294 pg/mL (200-900)
== END 2023-06-13 07:16 | disposition home or self-care (01) ==
LOC: HO.HMGCLDS 07:15
PROVIDERS: PCP Internal Medicine; Visit Provider Internal Medicine
DX: I48.0 Paroxysmal atrial fibrillation (principal); E53.8 Deficiency of other specified B group vitamins; M85.80 Other specified disorders of bone density and structure, unspecified site; I10 Essential (primary) hypertension; E78.5 Hyperlipidemia, unspecified; E11.40 Type 2 diabetes mellitus with diabetic neuropathy, unspecified; N95.2 Postmenopausal atrophic vaginitis; Z79.4 Long term (current) use of insulin; Z79.01 Long term (current) use of anticoagulants
CPT/HCPCS: 36415; 82607; 82746; 83036; 84460; 85025

== ENCOUNTER 2023-06-20 09:16 | Outpatient (AMB) | payer MEDICARE, SELFPAY ==
[2023-06-20 09:22] VITALS: BP 126/60; PULSE 65; O2SAT 95; BMI 28.4
--- NOTE | 2023-06-20 09:22 | AM.OFFVISMDC ---
Intake Vital Signs 06/20/23 09:22 Height 5 ft 4 in Weight 165 lb 4 oz BMI 28.4 BP 126/60 Blood Pressure Location Lt brachial Position Sitting Pulse 65 Pulse Source Pulse Oximeter Pulse Oximetry (%) 95 Oxygen Delivery Method Room Air Intake Visit Reasons: KAYLA [id number] Intake Note: Pt is here today for her SWV Allergies adhesive tape [Adhesive Tape] Allergy (Mild, Verified 06/20/23 09:41) CONTACT DERMATITIS cephalexin [CEPHALEXIN] Allergy (Unknown, Verified 06/20/23 09:41) SWELLING latex [Latex] Allergy (Unknown, Verified 06/20/23 09:41) RASH Biaxin Adverse Reaction (Intermediate, Verified 06/20/23 09:41) plapitations bacitracin [From Cortisporin] Adverse Reaction (Mild, Verified 06/20/23 09:41) EYE IRRITATION hydrocortisone [From Cortisporin] Adverse Reaction (Mild, Verified 06/20/23 09:41) EYE IRRITATION neomycin [From Cortisporin] Adverse Reaction (Mild, Verified 06/20/23 09:41) EYE IRRITATION flecainide [From Tambocor] Adverse Reaction (Unknown, Verified 06/20/23 09:41) HEART RACING lisinopril [LISINOPRIL] Adverse Reaction (Unknown, Verified 06/20/23 09:41) cough, nausea Sulfa (Sulfonamide Antibiotics) [SULFA(SULFONAMIDE ANTIBIOTICS)] Adverse Reaction (Unknown, Verified 06/20/23 09:41) PALPITATIONS Medication List - Last Reconciled 06/20/23 by Patricia Nicole MD amlodipine 5 mg PO DAILY 90 days apixaban (Eliquis) 5 mg PO BID coenzyme Q10 (CoQ-10) 100 mg PO DAILY estradiol 0.01%(0.1mg/gram) (Estrace) 1 g vaginal MOWEFR gabapentin 100 mg PO BEDTIME hydrochlorothiazide 25 mg PO DAILY insulin glargine (Lantus Solostar U-100 Insulin) 20 units subcut BEDTIME insulin lispro (Humalog KwikPen U-200 Insulin) 35 units subcut BEDTIME losartan 50 mg PO DAILY magnesium 500 mg PO DAILY@1700 metformin 1,000 mg PO BID metoprolol succinate ER 25 mg See Protocol PO DAILY 90 days pantoprazole 40 mg PO DAILY pen needle, diabetic (BD Ultra-Fine Mini Pen Needle) As directed QID ac and hs rosuvastatin 5 mg PO MOWEFR 90 days spironolactone 25 mg PO DAILY vitamins A,C,B-qatb-whkxfr 2,148 mcg-113 mg-45 mg-17.4mg (PreserVision AREDS) 2 tabs PO BID HPI SWV [id number] HPI Details SWV ? 82 year old lady presents for her subsequent annual wellness visit. She has diabetes mellitus, with latest hemoglobin A1c obtain 06/13/2023 at 7.1%. Fasting lipids are within normal limits obtain 01/04/2023. She is up-to-date with her screening mammogram done 05/07/2023 with benign findings, no longer gets cervical cancer screening or colon cancer screening. Her last bone density was done in 2012 which showed presence of osteopenia in her left hip. Patient however no longer wants to get further testing and does not want to start any new medications at present time. She is up-to-date with her COVID vaccination, flu shot, pneumonia vaccine and Tdap, has not yet had her shingles or RSV vaccine. ? Medical / Social History Reviewed? Past Medical History ?Yes . ? [place] of Care / Care Team list updated ?Yes . ? Surgical/Hospitalization History ?Yes . ? Current Medications (including OTC and supplements) ?Yes . ? Family History ?Yes . ? Tobacco Control form ?Yes . ? AUDIT-C (Alcohol use) form ?Yes . ? Illicit drug use in Social History ?Yes . ? Current diagnosis of depression? ?No ? Appropriate PHQ2/PHQ9 completed ?Yes . ? Data entered by ?Machine Heel Seat Fitter and reviewed by provider ? Fall Risk ? Fall History? Have you had any falls with injury in the past year? ?No . ? Have you had two or more falls in the past year? ?No . ? Fall Risk Assessment: ?No falls in the past year . ? HRA filled out by the patient, reviewed by Provider and scanned. ? SWV ? Balance? [place] ?Yes . ? Tandem walk ?unable to . ? Walk and Turn ?walks with aid of a walker. ? Rise from sit to stand ?Yes . ?Vision? Corrective lens ?Yes ? Vision screen ? Up-to-date, goes to [facility], last eye exam was done 10/03/2022 ?Hearing? Whisper test ?fail, patient wears hearing aids ?Written Plan?Completed. See Patient Documents.? HPI Comments History of Present Illness Details 82-year-old lady here today also for follow-up on recent labs done. She has diabetes mellitus, with latest hemoglobin A1c at 7.1%. Fasting lipids are within normal limits. Has been compliant with taking her medications. Would like to see if she can be placed on freestyle Gloria, states that she is sick and tired of picking her fingers all the time . Glucose log brought in today which showed fasting sugar has been less than 130 mg usual in the morning, occasionally goes up to 150-170 mg later the afternoon.. She also notes that her upper abdomen is distended, which started after a fall last December 2022. Denies any abdominal pain, no bloating, no burping, has regular bowel movements usually every 2 days. Patient however complains of discomfort and sensation of food not coming down whenever she sits or hunches over while sitting. 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 Son No problems noted. Daughter No problems noted. Social History Household Members: Spouse Housing: House Do you presently have visiting nurse or other home services: No Alcohol intake: never Patient Tobacco Use Status: Never used Tobacco e-Cigarette/Vaping Use: Never Used service: No Current occupational status: retired Cognitive needs: No Hearing needs: Yes Vision needs: Yes Questionnaire Medicare Wellness Checkup What is your age?: 78 or older What gender do you identify with?: female During the past 4 weeks, how much have you been bothered by emotional problems such as feeling anxious, depressed, irritable, sad or downhearted, and blue?: slightly During the past 4 weeks, has your physical & emotional health limited your social activities with family, friends, neighbors, or groups?: not at all During the past 4 weeks, how much bodily pain have you generally had?: mild pain During the past 4 weeks, was someone available to help you if you needed & wanted help?: yes, quite a bit During the past 4 weeks, what was the hardest physical activity you could do for at least 2 minutes?: light Can you get to places out of walking distance without help? (For eg., can you travel alone on buses, taxis or drive your car?): No Can you go shopping for groceries or clothes without someone's help?: No Can you prepare your own meals?: Yes Can you do your housework without help?: Yes Because of any health problems, do you need the help of another person with your personal care needs such as eating, bathing, dressing or getting around the house?: No Can you handle your own money without help?: Yes During the past 4 weeks, how would you rate your health in general?: good During the past 4 weeks how have things been going for you?: good & bad parts about equal Are you having difficulties driving your car?: not applicable, I don't use a car Do you always fasten your seat belt when you are in a car?: yes, usually During past 4 weeks, have you been bothered by the following: never: Falling or dizzy when standing up, Sexual problems?, Trouble eating well?, Teeth or denture problems? and Problems using the telephone? and sometimes: Tiredness or fatigue? Have you fallen 2 or more times in the past year?: No Are you afraid of falling?: Yes Are you a smoker?: no During the past 4 weeks, how many drinks of wine, beer, or other alcoholic beverages did you have?: no alcohol at all Do you exercise for about 20 minutes 3 or more times a week?: no, I usually do not exercise this much Have you been given information to help with the following?: yes: Hazards in your house that might hurt you? and yes: Keeping track of your medications? How often do you have trouble taking medicines the way you have been told to take them?: I always take medicine as prescribed How confident are you that you can control & manage most of your health problems?: somewhat confident What is your race?: White Mini Mental State Exam (MMSE) Orientation What is the (year) (season) (date) (day) (month)?: year (2023), season (Spring), date (06/20/2023), day (Sunday) and month (June) Where are we (state) (county) (town or city) (hospital) (floor)?: state ([place]), county ([place]), town or city ([place]) and hospital/clinic ([facility]) Score Score: 9 Activity of Daily Living Bathing - sponge bath, tub bath or shower: receives no assistance (gets in/out by self, if usual bathing means Dressing - getting clothes from closets & drawers, including inner/outer garments & fasteners.: gets clothes & gets completely dressed without help Toileting - going to the 'toilet room' for urine/bowel elimination & cleaning self/arranging clothes: goes to toilet room, cleans self, arranges clothes without help Transfer: moves in & out of bed and chair without help (may use support object) Continence: has occasional 'accidents' Feeding: feeds self without help Total Score: 0 Information obtained from: patient Using telephone: independent Traveling: needs assistance Shopping: dependent Preparing meals: dependent Housework: needs assistance Taking medicine: independent Managing money: independent PHQ-9 Over the last 2 weeks, how often have you been bothered by any of the following problems? 1. Little interest or pleasure in doing things: not at all 2. Feeling down, depressed, or hopeless: not at all 3. Trouble falling or staying asleep, or sleeping too much: not at all 4. Feeling tired or having little energy: not at all 5. Poor appetite or overeating: not at all 6. Feeling bad about yourself - or that you are a failure or have let yourself or your family down: not at all 7. Trouble concentrating on things, such as reading the newspaper or watching television: not at all 8. Moving or speaking so slowly that other people could have noticed. Or the opposite - being so fidgety or restless that you have been moving around a lot more than usual: not at all 9. Thoughts that you would be better off or of hurting yourself in some way: not at all Total score: 0 Depression Screening Interpretation: Negative Depression Screening Done: Yes 37757 - PHQ-9 Billing: Yes Source: Developed by Drs. Chaz Mayer, Lily Ruggiero, Aayush Severino and colleagues, with an educational melinda from [employer]. INGRID-7 AMB Questionnaire INGRID-7 Date INGRID - 7 assessed: 06/20/23 Feeling nervous, anxious, or on edge: 0 = Not at all Not being able to stop or control worryin = Not at all Worrying too much about different things: 0 = Not at all Trouble relaxin = Not at all Being so restless that it is hard to sit still: 0 = Not at all Becoming easily annoyed or irritable: 0 = Not at all Feeling afraid as if something awful might happen: 0 = Not at all Total INGRID-7 score (0-4 normal; 5-9 mild; 10-14 moderate; 15-21 severe): 0 Source: Developed by Drs. Chaz Mayer, Lily Ruggiero, Aayush Severino and colleagues, with an educational melinda from [employer]. INGRID-7 Assessment Billing INGRID-7 Assessment Tool: INGRID-7 Assessment 23646 Review of Systems Const Details: Has unsteady gait, uses a walker Eyes Denies change in vision ENT Denies dizziness Card Denies chest pain, Denies chest pain at rest, Denies chest pain with activity, Denies pedal edema, Denies lightheadedness, Denies palpitations, Denies dyspnea, Denies dyspnea on exertion and Denies orthopnea Resp Denies cough, Denies dyspnea and Denies dyspnea on exertion GI Denies abdominal pain, Denies melena, Denies hematochezia, Denies change in bowel habits, Denies change in stool character and Denies heartburn Reports no additional complaints Musc Denies muscle cramps, Denies muscle weakness, Denies numbness, Denies radiating pain into limb and Denies tingling Neuro Denies dizziness, Denies numbness and Denies tingling Psych Reports no additional complaints Endo Denies polyphagia, Denies polydipsia and Denies palpitations Alejandro/Lymph Denies easy bleeding and Denies easy bruising Aller/Immun Reports no additional complaints Physical Exam Vital Signs: Last Vital Signs Pulse 65 06/20/23 09:22 BP 126/60 06/20/23 09:22 Pulse Ox 95 04/03/24 09:22 Oxygen Delivery Method Room Air 06/20/23 09:22 BMI result Body Mass Index 28.4 Const Other: Accompanied by daughter, ambulatory with walker General: cooperative, healthy appearing, comfortable and no acute distress Nutritional Appearance: obese Orientation/consciousness: patient oriented x3 HEENT Head: Yes normocephalic Face and sinus: Yes face symmetric Mouth: Normal oral and palatal mucosa present and moist mucous membranes Eyes Other: Wears glasses General: appearance normal, both eyes and all related structures Neck Neck: Yes normal visual inspection and Yes no JVD Thyroid: Thyroid normal (Nonpalpable) Resp Effort & Inspection: normal respiratory effort Auscultation: clear to auscultation bilaterally, no crackles, no rales, no rhonchi and no wheezes Cardio Jugular venous distension: no JVD Rate: regular rate Heart sounds: S1 normal heart sound present, S2 normal heart sound present, Murmur heart sound present and no rubs Bruits: no abdominal aortic bruits GI Inspection: Yes distended Palpation (GI): No Abdominal aortic bruit present, Soft to palpation, nontender, no guarding, no hernias and no masses Percussion: No Fluid wave present and Yes tympanic to percussion Auscultation: Hyperactive bowel sounds present Skin General skin exam: no rashes or lesions noted Neuro General: patient oriented x3, tone normal, moves all extremities, Normal light touch and pain sensation, no focal motor deficits and CN's II-XI intact bilaterally Cognition (Neuro): normal cognition Gait exam (Neuro): Assistive device used (Walker with seat) Extrem General: Yes normal to inspection, No no pedal edema and No calf tenderness Psych Appearance: grossly normal Mental Status: mental status grossly normal Speech and movement: Normal speech and movement present Results Reviewed Results Reviewed: Laboratory Tests 01/04/23 01/04/23 06/13/23 07:41 07:41 07:19 Estimat Average Glucose 157 Hemoglobin A1c % 7.1 H ALT Triglycerides 109 Cholesterol 157 LDL Cholesterol, Calc 81 HDL Cholesterol 55 Vitamin B12 25-OH Vitamin D Total 55.7 Folate 10.6 06/13/23 06/13/23 07:19 07:19 Estimat Average Glucose Hemoglobin A1c % ALT 10 Triglycerides Cholesterol LDL Cholesterol, Calc HDL Cholesterol Vitamin B12 294 25-OH Vitamin D Total Folate Assessment & Plan Assessment & Plan (1) Encounter for subsequent annual wellness visit (AWV) in Medicare patient: Code(s): Z00.00 - Encounter for general adult medical examination without abnormal findings Plan: Medical wellness checklist discussed with patient and daughter reviewed and updated. (2) Abdominal distention: Code(s): R14.0 - Abdominal distension (gaseous) Plan: Ordered ultrasound of abdomen (3) Type 2 diabetes mellitus with diabetic neuropathy, with long-term current use of insulin: Code(s): E11.40 - Type 2 diabetes mellitus with diabetic neuropathy, unspecified; Z79.4 - penitentiary (current) use of insulin Plan: Diabetes mellitus fairly well controlled with hemoglobin A1c at 7.1% will continue on current treatment, up-to-date with her diabetes retinopathy screening and [facility] podiatry yearly. Referred to elementary educator for patient education and referral to get freestyle Gloria started for glucose monitoring (4) Tricuspid regurgitation: Code(s): I07.1 - Rheumatic tricuspid insufficiency Qualifiers: Cardiac valve disease etiology: nonrheumatic Qualified Code(s): I36.1 - Nonrheumatic tricuspid (valve) insufficiency Plan: Followed by cardiology (5) Dyslipidemia: Code(s): E78.5 - Hyperlipidemia, unspecified Plan: Fasting lipids are within normal limits, currently on rosuvastatin 5 mg/ tab , takes 1 tab 3 times a week (6) Paroxysmal atrial fibrillation: Code(s): I48.0 - Paroxysmal atrial fibrillation Plan: Followed by cardiology currently on apixaban 5 mg 1 tablet twice a day (7) Essential hypertension: Code(s): I10 - Essential (primary) hypertension Plan: Hypertension stable and controlled on present treatment (8) Non-rheumatic mitral regurgitation: Code(s): I34.0 - Nonrheumatic mitral (valve) insufficiency Plan: Followed by cardiology (9) Osteopenia: Code(s): M85.80 - Other specified disorders of bone density and structure, unspecified site Qualifiers: Osteopenia location: multiple sites Qualified Code(s): M85.89 - Other specified disorders of bone density and structure, multiple sites Plan: Patient declined further bone density screening, advised to stay active, do regular exercise, take adequate calcium and vitamin-D 3 supplements (10) Microcytic anemia: Code(s): D50.9 - Iron deficiency anemia, unspecified Plan: Currently on anticoagulation, will monitor CBC Orders: Orders Basic Metabolic Panel Fasting 09/17/23 D50.9 - Iron deficiency anemia, unspecified, E11.40 - Type 2 diabetes mellitus with diabetic neuropathy, unspecified, E78.5 - Hyperlipidemia, unspecified, I07.1 - Rheumatic tricuspid insufficiency, I10 - Essential (primary) hypertension, I34.0 - Nonrheumatic mitral (valve) insufficiency, I48.0 - Paroxysmal atrial fibrillation, M85.80 - Other specified disorders of bone density and structure, unspecified site, R32 - Unspecified urinary incontinence, Z00.00 - Encounter for general adult medical examination without abnormal findings, 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 - 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 (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) use of anticoagulants, Z79.4 - penitentiary (current) use of insulin Alanine Aminotransferase 09/17/23 D50.9 - Iron deficiency anemia, unspecified, E11.40 - Type 2 diabetes mellitus with diabetic neuropathy, unspecified, E78.5 - Hyperlipidemia, unspecified, I07.1 - Rheumatic tricuspid insufficiency, I10 - Essential (primary) hypertension, I34.0 - Nonrheumatic mitral (valve) insufficiency, I48.0 - Paroxysmal atrial fibrillation, M85.80 - Other specified disorders of bone density and structure, unspecified site, R32 - Unspecified urinary incontinence, Z00.00 - Encounter for general adult medical examination without abnormal findings, Z79.01 - penitentiary (current) use of anticoagulants, Z79.4 - penitentiary (current) use of insulin Hemoglobin A1c 09/17/23 D50.9 - Iron deficiency anemia, unspecified, E11.40 - Type 2 diabetes mellitus with diabetic neuropathy, unspecified, E78.5 - Hyperlipidemia, unspecified, I07.1 - Rheumatic tricuspid insufficiency, I10 - Essential (primary) hypertension, I34.0 - Nonrheumatic mitral (valve) insufficiency, I48.0 - Paroxysmal atrial fibrillation, M85.80 - Other specified disorders of bone density and structure, unspecified site, R32 - Unspecified urinary incontinence, Z00.00 - Encounter for general adult medical examination without abnormal findings, Z79.01 - 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 (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) use of anticoagulants, Z79.4 - 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 (current) use of insulin Lipid Panel 09/17/23 D50.9 - Iron deficiency anemia, unspecified, E11.40 - Type 2 diabetes mellitus with diabetic neuropathy, unspecified, E78.5 - Hyperlipidemia, unspecified, I07.1 - Rheumatic tricuspid insufficiency, I10 - Essential (primary) hypertension, I34.0 - Nonrheumatic mitral (valve) insufficiency, I48.0 - Paroxysmal atrial fibrillation, M85.80 - Other specified disorders of bone density and structure, unspecified site, R32 - Unspecified urinary incontinence, Z00.00 - Encounter for general adult medical examination without abnormal findings, Z79.01 - penitentiary (current) use of anticoagulants, Z79.4 - penitentiary (current) use of insulin Microalbumin, Random (w Creat) 09/17/23 D50.9 - Iron deficiency anemia, unspecified, E11.40 - Type 2 diabetes mellitus with diabetic neuropathy, unspecified, E78.5 - Hyperlipidemia, unspecified, I07.1 - Rheumatic tricuspid insufficiency, I10 - Essential (primary) hypertension, I34.0 - Nonrheumatic mitral (valve) insufficiency, I48.0 - Paroxysmal atrial fibrillation, M85.80 - Other specified disorders of bone density and structure, unspecified site, R32 - Unspecified urinary incontinence, Z00.00 - Encounter for general adult medical examination without abnormal findings, Z79.01 - 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 (current) use of anticoagulants, Z79.4 - penitentiary (current) use of insulin US abdomen complete Today R14.0 - Abdominal distension (gaseous) Vitamin D 25-OH Total 09/17/23 D50.9 - Iron deficiency anemia, unspecified, E11.40 - Type 2 diabetes mellitus with diabetic neuropathy, unspecified, E78.5 - Hyperlipidemia, unspecified, I07.1 - Rheumatic tricuspid insufficiency, I10 - Essential (primary) hypertension, I34.0 - Nonrheumatic mitral (valve) insufficiency, I48.0 - Paroxysmal atrial fibrillation, M85.80 - Other specified disorders of bone density and structure, unspecified site, R32 - Unspecified urinary incontinence, Z00.00 - Encounter for general adult medical examination without abnormal findings, Z79.01 - penitentiary (current) use of anticoagulants, Z79.4 - penitentiary (current) use of insulin Aspartate Amino Transferase 09/17/23 D50.9 - Iron deficiency anemia, unspecified, E11.40 - Type 2 diabetes mellitus with diabetic neuropathy, unspecified, E78.5 - Hyperlipidemia, unspecified, I07.1 - Rheumatic tricuspid insufficiency, I10 - Essential (primary) hypertension, I34.0 - Nonrheumatic mitral (valve) insufficiency, I48.0 - Paroxysmal atrial fibrillation, M85.80 - Other specified disorders of bone density and structure, unspecified site, R32 - Unspecified urinary incontinence, Z00.00 - Encounter for general adult medical examination without abnormal findings, Z79.01 - penitentiary (current) use of anticoagulants, Z79.4 - penitentiary (current) use of insulin Hemoglobin and Hematocrit 09/17/23 D50.9 - Iron deficiency anemia, unspecified, E11.40 - Type 2 diabetes mellitus with diabetic neuropathy, unspecified, E78.5 - Hyperlipidemia, unspecified, I07.1 - Rheumatic tricuspid insufficiency, I10 - Essential (primary) hypertension, I34.0 - Nonrheumatic mitral (valve) insufficiency, I48.0 - Paroxysmal atrial fibrillation, M85.80 - Other specified disorders of bone density and structure, unspecified site, R32 - Unspecified urinary incontinence, Z00.00 - Encounter for general adult medical examination without abnormal findings, Z79.01 - 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 (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) use of anticoagulants, Z79.4 - penitentiary (current) use of insulin Medications: Changed From insulin glargine (Lantus Solostar U-100 Insulin) 20 units (0.2 mL) subcut BEDTIME 15 mL 1RF E11.40 - Type 2 diabetes mellitus with diabetic neuropathy, unspecified, Z79.4 - pen[facility]entiary (current) use of insulin To insulin glargine (Lantus Solostar U-100 Insulin) 8-10 units 20 units subcut BEDTIME E11.40 - Type 2 diabetes mellitus with diabetic neuropathy, unspecified, Z79.4 - penitentiary (current) use of insulin From insulin lispro (Humalog KwikPen U-200 Insulin) 35 units (0.175 mL) subcut BEDTIME 18 mL 3RF To insulin lispro (Humalog KwikPen U-200 Insulin) 35 units subcut BEDTIME Quality Reporting (2019) Depression/Bipolar (159/160/161/177) PHQ-9: Total score: 0 Coding Level of Care Code Medicare Subsequent (G0439) Est Pt Level 4 (55860) Diagnoses Encounter for subsequent annual wellness visit (AWV) in Medicare patient Z00.00 Abdominal distention R14.0 Type 2 diabetes mellitus with diabetic neuropathy, with long-term current use of insulin E11.40; Z79.4 Nonrheumatic tricuspid valve regurgitation I36.1 Cardiac valve disease etiology: nonrheumatic Dyslipidemia E78.5 Paroxysmal atrial fibrillation I48.0 Essential hypertension I10 Non-rheumatic mitral regurgitation I34.0 Osteopenia of multiple sites M85.89 Osteopenia location: multiple sites Microcytic anemia D50.9 CPT Codes Advance Care Planning - Time spent: 16-45 minutes ([id number]) Additional Codes INGRID-7 Assessment Billing - INGRID-7 Assessment Tool: INGRID-7 Assessment [id number] ([id number]) Advance Care Planning Advance Care Planning discussion: Completed/Scanned Date of discussion: 06/20/23 Who was present: Patient and daughter Forms completed: Health Care Proxy and MOLST Time spent: 16-45 minutes Actual minutes spent: 16
== END 2023-06-20 12:17 | disposition home or self-care (01) ==
PROVIDERS: PCP Internal Medicine; Visit Provider Internal Medicine
DX: Z00.00 Encounter for general adult medical examination without abnormal findings (principal); E11.40 Type 2 diabetes mellitus with diabetic neuropathy, unspecified; Z79.4 Long term (current) use of insulin; I48.0 Paroxysmal atrial fibrillation; R14.0 Abdominal distension (gaseous); I36.1 Nonrheumatic tricuspid (valve) insufficiency; E78.5 Hyperlipidemia, unspecified; I10 Essential (primary) hypertension; I34.0 Nonrheumatic mitral (valve) insufficiency; M85.89 Other specified disorders of bone density and structure, multiple sites; D50.9 Iron deficiency anemia, unspecified
CPT/HCPCS: 99214; 99497; G0439

== ENCOUNTER 2023-07-13 10:18 | Outpatient (REF) | payer MEDICARE, SELFPAY ==
--- NOTE | ~2023-07-13 | US_ITS ---
EXAMINATION: US ABDOMEN COMPLETE CLINICAL INFORMATION: Abdominal distension (gaseous). COMPARISON: X-ray [facility] 09/04/2022 and 07/07/2020. Renal ultrasound 02/15/2022. Ultrasound abdomen limited 12/18/2021. CT abdomen and pelvis 12/13/2021. TECHNIQUE: Real-time imaging of the abdominal viscera. Limited visualization due to bowel gas. FINDINGS: PANCREAS: Limited visualization of pancreatic tail and head. Imaged portion of pancreatic body is unremarkable. ABDOMINAL AORTA: Limited visualization. Imaged portions of the abdominal aorta are unremarkable. INFERIOR VENA CAVA: Visualized portions are normal. LIVER: Hepatic parenchymal echogenicity is unremarkable, although visualization substantially limited. Hepatic contour appears smooth. Liver is normal in size. GALLBLADDER: 2.3 cm gallstone. No gallbladder wall thickening. Gallbladder is suboptimally distended. COMMON BILE DUCT: Normal in caliber measuring 0.48 cm in diameter. RIGHT KIDNEY: 4 mm right renal lower pole calculus. No hydronephrosis. Limited visualization. The kidney measures 10.6 cm in maximum dimension. LEFT KIDNEY: Upper pole cysts measuring 1.7 cm and 1.5 cm with benign features. There is no indication for additional imaging at this time. Lower pole 2.7 cm cyst with thin septation difficult to fully characterize due to bowel gas. Limited visualization. No hydronephrosis or renal calculi. The kidney measures 10.5 cm in maximum dimension. SPLEEN: Normal. The spleen measures 8.9 cm in maximum dimension. FREE FLUID: None. US/US abdomen complete IMPRESSION: 1. Cholelithiasis. 2. A 4 mm right renal lower pole calculus. No hydronephrosis. 3. Limited visualization due to bowel gas and body habitus.
== END 2023-07-13 10:19 | disposition home or self-care (01) ==
LOC: HO.HMGCX 10:18
PROVIDERS: PCP Internal Medicine; Visit Provider Internal Medicine
DX: R14.0 Abdominal distension (gaseous) (principal)
CPT/HCPCS: 76700

== ENCOUNTER 2023-07-31 07:42 | Outpatient (REF) | payer MEDICARE, SELFPAY ==
[2023-07-31 11:22] LABS: Anion Gap 16 (12-20); Blood Urea Nitrogen 23 mg/dL (9-16); Carbon Dioxide 26 mmol/L (22-29); Chloride 102 mmol/L (96-108); Estimated Glomerular Filt Rate > 60; Potassium 4.4 mmol/L (3.3-5.1); Sodium 140 mmol/L (135-145)
== END 2023-07-31 07:43 | disposition home or self-care (01) ==
LOC: HO.HMGCLDS 07:42
PROVIDERS: PCP Internal Medicine; Visit Provider Internal Medicine Nephrology
DX: I50.21 Acute systolic (congestive) heart failure (principal); R80.1 Persistent proteinuria, unspecified; E11.21 Type 2 diabetes mellitus with diabetic nephropathy; I12.9 Hypertensive chronic kidney disease with stage 1 through stage 4 chronic kidney disease, or unspecified chronic kidney disease
CPT/HCPCS: 36415; 80051; 82310; 82565; 84520

== ENCOUNTER 2023-08-01 07:00 | Outpatient (REF) | payer MEDICARE, SELFPAY ==
[2023-08-01 10:28] LABS: Appearance Urine Clear; Color Urine Yellow; Glucose Urine UA Negative (Negative); Leukocyte Esterase Urine Negative (Negative); Nitrite Urine Negative (Negative); PH 5.5 (5.0-9.0); Specific Gravity - Urine 1.015 (1.005-1.025); Urine Blood Negative (Negative); Urine Ketones Negative (Negative); Urine Protein Negative (Neg-Trace)
[2023-08-01 10:31] LABS: Bacteria Urine None Seen (None Seen); Hyaline Casts Urine 0-2 /LPF (0-2); RBC Urine 0-2 /HPF (0-2); Squamous Epithelial Cell Urine 0-2 /HPF (0-2); WBC Urine 0-5 /HPF (0-5)
[2023-08-01 11:29] LABS: Creatinine Urine 55.15 mg/dL; Total Protein Urine Random < 7 mg/dL (<12)
== END 2023-08-01 07:01 | disposition home or self-care (01) ==
LOC: HO.HMGCLNP 07:00
PROVIDERS: Visit Provider Internal Medicine Nephrology
DX: E11.22 Type 2 diabetes mellitus with diabetic chronic kidney disease (principal); I13.0 Hypertensive heart and chronic kidney disease with heart failure and stage 1 through stage 4 chronic kidney disease, or unspecified chronic kidney disease; N18.9 Chronic kidney disease, unspecified; I50.21 Acute systolic (congestive) heart failure; R80.1 Persistent proteinuria, unspecified
CPT/HCPCS: 81001; 82043; 82570; 84156

== ENCOUNTER 2023-08-14 13:07 | Outpatient (AMB) | payer MEDICARE, SELFPAY ==
--- NOTE | 2023-08-14 13:40 | MHC.OFFWIV ---
Intake Vital Signs 08/14/23 13:42 Height 5 ft 4 in Weight 160 lb BMI 27.5 BP 142/82 H Blood Pressure Location Lt brachial Position Sitting Pulse 72 Pulse Source Pulse Oximeter Temp 97.0 F Temp Source Temporal Artery Scan Pulse Oximetry (%) 95 Oxygen Delivery Method Room Air Intake Visit Reasons: EP UTI Intake Note: pt is here today for UTI started today Patient Tobacco Use Status: Never used Tobacco Allergies adhesive tape [Adhesive Tape] Allergy (Mild, Verified 08/14/23 13:54) CONTACT DERMATITIS cephalexin [CEPHALEXIN] Allergy (Unknown, Verified 08/14/23 13:54) SWELLING latex [Latex] Allergy (Unknown, Verified 08/14/23 13:54) RASH Biaxin Adverse Reaction (Intermediate, Verified 08/14/23 13:54) plapitations bacitracin [From Cortisporin] Adverse Reaction (Mild, Verified 08/14/23 13:54) EYE IRRITATION hydrocortisone [From Cortisporin] Adverse Reaction (Mild, Verified 08/14/23 13:54) EYE IRRITATION neomycin [From Cortisporin] Adverse Reaction (Mild, Verified 08/14/23 13:54) EYE IRRITATION flecainide [From Tambocor] Adverse Reaction (Unknown, Verified 08/14/23 13:54) HEART RACING lisinopril [LISINOPRIL] Adverse Reaction (Unknown, Verified 08/14/23 13:54) cough, nausea Sulfa (Sulfonamide Antibiotics) [SULFA(SULFONAMIDE ANTIBIOTICS)] Adverse Reaction (Unknown, Verified 08/14/23 13:54) PALPITATIONS Medication List - Last Reconciled 08/14/23 by Linda Floyd MD amlodipine 5 mg PO DAILY 90 days apixaban (Eliquis) 5 mg PO BID coenzyme Q10 (CoQ-10) 100 mg PO DAILY estradiol 0.01%(0.1mg/gram) (Estrace) 1 g vaginal MOWEFR gabapentin 100 mg PO BEDTIME hydrochlorothiazide 25 mg PO DAILY insulin lispro (Humalog KwikPen U-200 Insulin) 35 units subcut BEDTIME Lantus Solostar U-100 Insulin (insulin glargine) 20 units (0.2 mL) subcut BEDTIME NS losartan 50 mg PO DAILY magnesium 500 mg PO DAILY@1700 metformin 1,000 mg PO BID metoprolol succinate ER 25 mg PO DAILY pantoprazole 40 mg PO DAILY pen needle, diabetic (BD Ultra-Fine Mini Pen Needle) As directed QID ac and hs rosuvastatin 5 mg PO MOWEFR 90 days spironolactone 25 mg PO DAILY Do you need a note to return to daycare/school/sports/work: No HPI EP UTI HPI Details 82-year-old female came in today to be evaluated for possible bladder infection Her symptoms started yesterday with frequency and burning, patient says that she has had UTI before and this is what it feels like This morning she had dental appointment so she had to take amoxicillin before visit After that she is feeling slightly better but symptoms continue Her UA did not show any signs of infection However due to her symptoms I am treating her with Macrobid Patient is to continue drinking plenty of water There is no fever no chills no back pain slight pelvic discomfort is here, no nausea no vomiting. 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 Son No problems noted. Daughter No problems noted. Social History Household Members: Spouse Housing: House Do you presently have visiting nurse or other home services: No Alcohol intake: never Patient Tobacco Use Status: Never used Tobacco e-Cigarette/Vaping Use: Never Used service: No Current occupational status: retired Cognitive needs: No Hearing needs: Yes Vision needs: Yes Review of Systems Const All systems reviewed & are unremarkable except as noted in HPI and below Physical Exam Vital Signs: Last Vital Signs Temp 97.0 F 08/14/23 13:42 Pulse 72 08/14/23 13:42 BP 142/82 H 08/14/23 13:42 Pulse Ox 95 08/14/23 13:42 Oxygen Delivery Method Room Air 08/14/23 13:42 BMI result Body Mass Index 27.5 Const General: no acute distress Orientation/consciousness: patient oriented x3 Eyes General: appearance normal, both eyes and all related structures Resp Effort & Inspection: normal respiratory effort and able to speak in complete sentences GI Other: Mild suprapubic discomfort General: Yes no CVA tenderness Back/Spine/Pelvis Back: no CVA tenderness Neuro General: patient oriented x3 Psych Mental Status: mental status grossly normal Results AMB Urinalysis, Automated UA Leukoctes 0 Sofía/uL Last Edit by Lyndon Arguelles MA on 08/14/23 14:05 UA Nitrite Negative Last Edit by Lyndon Arguelles MA on 08/14/23 14:05 UA Urobilinogen 0.2 mg/dL Last Edit by Lyndon Arguelles MA on 08/14/23 14:05 UA Protein 0 mg/dL Last Edit by Lyndon Arguelles MA on 08/14/23 14:05 UA pH 6.0 Last Edit by Lyndon Arguelles MA on 08/14/23 14:05 UA Blood 0 Stewart/uL Last Edit by Lyndon Arguelles MA on 08/14/23 14:05 UA Specific [place] 1.010 Last Edit by Lyndon Arguelles MA on 08/14/23 14:05 UA Ketone Negative Last Edit by Lyndon Arguelles MA on 08/14/23 14:05 UA Bilirubin 0 mg/dL Last Edit by Lyndon Arguelles MA on 08/14/23 14:05 UA Glucose 0 mg/dL Last Edit by Lyndon Arguelles MA on 08/14/23 14:05 Assessment & Plan Assessment & Plan (1) Dysuria: Code(s): R30.0 - Dysuria (2) Increased urinary frequency: Code(s): R35.0 - Frequency of micturition Plan 82-year-old female came in today to be evaluated for possible bladder infection Her symptoms started yesterday with frequency and burning, patient says that she has had UTI before and this is what it feels like This morning she had dental appointment so she had to take amoxicillin before visit After that she is feeling slightly better but symptoms continue Her UA did not show any signs of infection However due to her symptoms I am treating her with Macrobid Patient is to continue drinking plenty of water There is no fever no chills no back pain slight pelvic discomfort is here, no nausea no vomiting. Medications: New nitrofurantoin monohyd/m-cryst 100 mg (Macrobid) must administer with a meal/food 100 mg PO Q12H 3 days 6 caps 0RF Coding Level of Care Code Est Pt Level 3 (03338) Diagnoses Dysuria R30.0 Increased urinary frequency R35.0
[2023-08-14 13:42] VITALS: BP 142/82; PULSE 72; TEMP 36.1; O2SAT 95; BMI 27.5
== END 2023-08-14 14:25 | disposition home or self-care (01) ==
PROVIDERS: PCP Internal Medicine; Visit Provider Internal Medicine
DX: R30.0 Dysuria (principal); R35.0 Frequency of micturition
CPT/HCPCS: 99213

== ENCOUNTER 2023-08-30 09:09 | Inpatient (IN) | payer MEDICARE, SELFPAY ==
[2023-08-30] VITALS (26 sets, daily range): BP systolic 90–183; BP diastolic 49–95; PULSE 63–114; RESP 15–32; TEMP 35.9–36.6; O2SAT 85–100; BMI 27.5; BMI 28.8
--- NOTE | ~2023-08-30 | CT_ITS ---
EXAMINATION: CT HEAD WITHOUT CONTRAST CLINICAL INFORMATION: Intermittent confusion. On blood thinner. COMPARISON: CT head dated 12/13/2021. TECHNIQUE: Contiguous axial imaging was performed from the skull base to vertex without intravenous administration of contrast. This CT examination was performed using dose optimization techniques as appropriate, variously including the following: *Automated exposure control *Adjustment of mA and/or kV according to patient size (this includes techniques or standardized protocols for targeted exams where dose is matched to indication/reason for exam; i.e. extremities or head) *Use of iterative reconstruction technique DLP: 725 mGy-cm FINDINGS: There is no acute intracranial hemorrhage. There is no evidence of acute/subacute cerebral or cerebellar infarction. There is mild microvascular ischemic change. There is no midline shift or mass effect. There is no extra-axial fluid collection. The ventricles are normal in size. The ocular lenses are surgically absent. The orbits are otherwise unremarkable. The calvarium is intact. The mastoid air cells are well aerated. There is mild left-sided ethmoid air cell and left sphenoid sinus mucosal disease. CT/CT head/brain wo IV con IMPRESSION: No acute intracranial abnormality. Mild microvascular ischemic change.
--- NOTE | ~2023-08-30 | XR_ITS ---
EXAMINATION: XR CHEST CLINICAL INFORMATION: Dyspnea COMPARISON: Chest radiograph from 12/17/2022 TECHNIQUE: Frontal view of the chest was obtained. FINDINGS: Stable blunting right costophrenic recess representing trace pleural effusion versus scarring. Surgical material right mid and lower lung field. Chronic interstitial lung markings. Bibasilar atelectasis, left greater than right may reflect atelectasis/scarring, though evolving patches/inflammatory etiology not excluded. No pneumothorax. Trachea is midline. Cardiac mediastinal silhouette is stable. Aorta demonstrates mild tortuosity. Stable appearance of the right ribs and humeral head. Soft tissues are unremarkable. XR/XR chest 1V IMPRESSION: 1. Stable blunting right costophrenic recess representing trace pleural effusion versus scarring. 2. Surgical material right mid and lower lung field. 3. Chronic interstitial lung markings. 4. Bibasilar atelectasis, left greater than right may reflect atelectasis/scarring, though evolving patches/inflammatory etiology not excluded.
--- NOTE | ~2023-08-30 | XR_ITS ---
EXAMINATION: XR CHEST CLINICAL INFORMATION: Pulmonary edema. COMPARISON: Chest radiograph 08/30/2023. TECHNIQUE: Frontal view of the chest was obtained. FINDINGS: Stable enlargement of the cardiomediastinal silhouette. Slightly decreased diffuse interstitial and patchy airspace opacities compared to most recent prior. Stable small right pleural effusion. No pneumothorax. Redemonstration of multiple surgical clips overlying the right hemithorax. Again noted fractures in the right humeral neck/head and right-sided ribs. XR/XR chest 1V IMPRESSION: 1. Slightly decreased diffuse interstitial and patchy airspace opacities compared to most recent prior. 2. Stable small right pleural effusion.
--- NOTE | ~2023-08-30 | CT_ITS ---
EXAMINATION: CT ABDOMEN AND PELVIS WITH CONTRAST CLINICAL INFORMATION: Upper abdominal pain nausea COMPARISON: CT abdomen from 12/13/2021 TECHNIQUE: Multidetector volumetric images were obtained from the superior aspect of the liver through the pubic symphysis following administration 85 mL of Omnipaque 350 intravenous contrast. Sagittal and coronal reformatted images were obtained on the technologist's workstation. Oral contrast: No This CT examination was performed using dose optimization techniques as appropriate, variously including the following: *Automated exposure control *Adjustment of mA and/or kV according to patient size (this includes techniques or standardized protocols for targeted exams where dose is matched to indication/reason for exam; i.e. extremities or head) *Use of iterative reconstruction technique DLP: 1428 mGy-cm FINDINGS: LUNG BASES: Bibasilar atelectasis versus scarring. Emphysematous changes. No pneumothorax. No large pleural effusion. Valvular calcifications noted. Slight elevation right hemidiaphragm. Pleural plaques along the right medial lower lobe. LIVER, GALLBLADDER, AND BILIARY TREE: The liver is normal in size, shape, and attenuation. No focal hepatic lesion or biliary ductal dilatation is present. Intraluminal gallbladder calculus measuring 2.2 cm without wall thickening or pericholecystic fluid. PANCREAS: Fatty atrophy of the pancreas. SPLEEN: Unremarkable. ADRENAL GLANDS: Unremarkable. KIDNEYS AND URETERS: Bilateral hypodense renal foci demonstrating fluid attenuation, statistically representing cysts, not requiring follow-up. Right-sided nephrolithiasis versus vascular calcification measuring 1.1 cm without hydronephrosis. No left-sided nephrolithiasis or hydronephrosis. BLADDER: Unremarkable. GASTROINTESTINAL TRACT: Small hiatal hernia. Metallic radiodensity within the stomach of unclear etiology. Colonic diverticulosis without acute diverticulitis. The small and large bowel are unremarkable. The appendix is unremarkable. ABDOMINAL WALL: Tiny fat filled umbilical hernia. LYMPH NODES: Lymph nodes per size criteria. VASCULAR: Abdominal aorta is nonaneurysmal. PELVIC VISCERA: Uterus is atrophy versus surgically absent. OSSEOUS STRUCTURES: Osteopenia. Redemonstrated compression deformity of T11 and to lesser extent T12. Multilevel degenerative changes of the thoracolumbar lumbosacral spine. Redemonstrated sclerotic focus of the lateral margin of the right iliac bone. CT/CT abdomen pelvis w IV con IMPRESSION: 1. No acute process of the abdomen or pelvis identified. 2. Metallic radiodensity within the stomach of unclear etiology. 3. Cholelithiasis without acute cholecystitis. 4. Bilateral hypodense renal foci demonstrating fluid attenuation, statistically representing cysts, not requiring follow-up. 5. Right-sided nephrolithiasis versus vascular calcification measuring 1.1 cm without hydronephrosis. 6. Small hiatal hernia. 7. Colonic diverticulosis without acute diverticulitis. 8. Osteopenia. Redemonstrated compression deformity of T11 and to lesser extent T12.
--- NOTE | ~2023-08-30 | XR_ITS ---
EXAMINATION: XR CHEST CLINICAL INFORMATION: Hypoxia COMPARISON: Same-day AP upright portable chest 08/30/2023 at 10:19 AM TECHNIQUE: AP upright portable view of the chest was obtained. 1:44 PM FINDINGS: There is stable blunting of the right costophrenic angle consistent with small pleural effusion or pleural thickening. Surgical clips are seen in the right mid upper abdomen the lower lung lopez. There is marked interval progression of bilateral alveolar infiltrates with air bronchograms, most notable on the left compared to the right. There is more dense opacity in the left lower lobe. The cardiomediastinal silhouette is stable. No pneumothorax. Trachea is midline. Stable appearance of right ribs and humeral head. XR/XR chest 1V IMPRESSION: Marked interval progression of bilateral alveolar infiltrates, most notable on the left compared to the right. This could be early presentation of ARDS versus interstitial pulmonary edema.
--- NOTE | 2023-08-30 09:30 | ECG_ITS ---
Test Reason : chest pressure Blood Pressure : / mmHG Vent. Rate : 065 BPM Atrial Rate : 000 BPM P-R Int : 000 ms QRS Dur : 146 ms QT Int : 436 ms P-R-T Axes : 000 -26 153 degrees QTc Int : 453 ms Artifact in tracing Atrial fibrillation with premature ventricular or aberrantly conducted complexes Left bundle branch block Abnormal ECG When compared with ECG of 17-DEC-2022 21:21, QT has shortened Referred By: Michelle Adams Electronically Signed By:DANIKA ULLOA
--- NOTE | 2023-08-30 09:45 | PC.NURSE ---
Addendum entered by Kristine Felipe 08/30/23 11:08: pt's family is reporting pt having a uti few weeks ago, family also is reporting that pt seems slightly confused and forgetful the last few days, pt lives by herself and takes care of herself a-fib on the monitor Original Note: pt is alert and oriented but appears slightly disoriented, respirations even and unlabored, ls clear, but oxygen dips down to 90% on room air pt put on 2l via nasal cannual and now sating at 94%. pt is reporting epigastric pain/substernal pain describes it pressure, denies sob and denies nausea at this time, very mini swelling in the lower extremities,
--- NOTE | 2023-08-30 09:45 | MHC.EDTECH ---
EKG PERFORMED 937
[2023-08-30 10:14] LABS: MANUAL DIFF FLAG NO
--- NOTE | 2023-08-30 10:15 | ED.CHESTPAIN ---
HPI - Chest Pain General Chief Complaint: Chest Pain Stated Complaint: CHEST PRESSURE,SOB 97%,BLE NUMB X45 MIN PER EMS Time Seen by Provider: 08/30/23 09:21 Source: patient, family and old records reviewed Mode of arrival: EMS Limitations: no limitations History of Present Illness ED Provider: ИРИНА HPI narrative: 83 yo female with PMH of CHF, HTN, afib on eliquis, UTI, gallstones, pulm HTN, anemia, GERD, renal colic, DM, HLD, prior intubation back in December with transfer to [place] for acute CHF and flash pulmonary edema who presents today with feeling epigastric and lower chest pain with nausea and mild shortness of breath this AM. She also feels bloated. Last BM was yesterday. She is passing gas. Her daughter notes she seems more spacey. On 08/13 was treated for UTI by PCP I do not see a culture in the chart on her. She denies headache and is not confused on arrival here though her O2 sats are slightly low. MD complaint: chest pain (epigastric pain) Onset (ago): day(s) (early this AM) Timing of current episode: constant Prior episodes: Yes Onset: during rest Pain location: epigastric Pain radiation: none Severity: mild Quality: aching Relieving factors: nothing Exacerbating factors: palpation Context: recent illness Associated symptoms: nausea Treatment prior to arrival: none Related Data Home Medications ?Medication ?Instructions ?Recorded ?Confirmed estradiol 0.01% (0.1 mg/gram) 1 g vaginal MOWEFR 12/19/21 08/14/23 vaginal cream (Estrace) magnesium 250 mg tablet 500 mg PO DAILY@1700 12/19/21 08/14/23 coenzyme Q10 100 mg capsule 100 mg PO DAILY 04/28/22 08/14/23 (CoQ-10) insulin lispro 200 unit/mL (3 mL) 35 unit subcut BEDTIME 06/20/23 08/14/23 subcutaneous pen (Humalog KwikPen U-200 Insulin) Previous Rx's ?Medication ?Instructions ?Recorded apixaban 5 mg tablet (Eliquis) 5 mg PO BID #180 tabs 02/01/23 amlodipine 5 mg tablet 5 mg PO DAILY 90 days #90 tabs 03/13/23 metformin 1,000 mg tablet 1,000 mg PO BID #20 tabs 03/16/23 pen needle, diabetic 31 gauge x #360 ea 03/28/23/16 (BD Ultra-Fine Mini Pen Needle) losartan 50 mg tablet 50 mg PO DAILY #90 tabs 07/10/23 metoprolol succinate 25 mg 25 mg PO DAILY #90 tabs 07/10/23 tablet,extended release 24 hr rosuvastatin 5 mg tablet 5 mg PO MOWEFR 90 days #39 tabs 07/10/23 gabapentin 100 mg capsule 100 mg PO BEDTIME #90 caps 07/12/23 pantoprazole 40 mg tablet,delayed 40 mg PO DAILY #90 tabs 07/15/23 release spironolactone 25 mg tablet 25 mg PO DAILY #90 tabs 07/15/23 Lantus Solostar U-100 Insulin 100 20 unit (0.2 mL) subcut BEDTIME 07/20/23 unit/mL (3 mL) subcutaneous pen #15 mL (insulin glargine) nitrofurantoin 100 mg PO Q12H 3 days #6 caps 08/14/23 monohydrate/macrocrystals 100 mg capsule (Macrobid) hydrochlorothiazide 25 mg tablet 25 mg PO DAILY #30 tabs 08/15/23 Allergies Allergy/AdvReac Type Severity Reaction Status Date / Time adhesive tape [Adhesive Tape] Allergy Mild CONTACT Verified 08/30/23 09:47 DERMATITIS cephalexin [CEPHALEXIN] Allergy Unknown SWELLING Verified 08/30/23 09:47 latex [Latex] Allergy Unknown RASH Verified 08/30/23 09:47 Biaxin AdvReac Intermediate plapitation Verified 08/30/23 09:47 s bacitracin [From Cortisporin] AdvReac Mild EYE Verified 08/30/23 09:47 IRRITATION hydrocortisone AdvReac Mild EYE Verified 08/30/23 09:47 [From Cortisporin] IRRITATION neomycin [From Cortisporin] AdvReac Mild EYE Verified 08/30/23 09:47 IRRITATION flecainide [From Tambocor] AdvReac Unknown HEART Verified 08/30/23 09:47 RACING lisinopril [LISINOPRIL] AdvReac Unknown cough, Verified 08/30/23 09:47 nausea Sulfa (Sulfonamide AdvReac Unknown PALPITATION Verified 08/30/23 09:47 Antibiotics) S [SULFA(SULFONAMIDE ANTIBIOTICS)] Review of Systems Review of Systems: Constitutional : No Weight loss, No Fever, No Chills ENT/Mouth : No sore throat, No Rhinorrhea Eyes: No Eye Pain, No Swelling Cardiovascular : pos Chest Pain, pos SOB, no Dyspnea on Exertion, No Orthopnea, No Edema, No Palpitations Respiratory : No Cough, No Sputum Gastrointestinal : pos Nausea, No Vomiting, No Diarrhea, pos abdominal Pain, No Hematochezia, No Melena Genitourinary : No Dysuria, No Urinary Frequency Musculoskeletal : No joint pain, No Myalgias, No Joint Swelling Skin : No Skin Lesions, No rash Neuro : No Weakness, No Numbness, No Dizziness, No Headache Psych : No Anxiety/Panic, No Depression All other systems reviewed and are negative [facility] Past Medical History Attestation statement: The following information was validated with the patient. Source: old records reviewed Medical History Nephrolithiasis Urinary tract infection Paroxysmal atrial fibrillation Cholelithiasis Renal cyst Pulmonary hypertension Non-rheumatic mitral regurgitation Permanent atrial fibrillation Right nephrolithiasis Compression deformity of vertebra Early satiety Microcytic anemia Heartburn Atrophic vaginitis Osteopenia Osteoarthritis of knees, bilateral Essential hypertension Dyslipidemia Type 2 diabetes mellitus with kidney complication, 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 Son No problems noted. Daughter No problems noted. Social History Social History Household Members: Spouse Housing: House Do you presently have visiting nurse or other home services: No Alcohol intake: never Patient Tobacco Use Status: Never used Tobacco Smoked in Last 30 Days: No e-Cigarette/Vaping Use: Never Used Use of substances other than those prescribed or required for medical reasons: No Advance Directives: No Advance Directives Information Provided: Yes Do you have a plan to hurt others: No Plan service: No Current occupational status: retired Cognitive needs: No Hearing needs: Yes Vision needs: Yes Physical Exam Vital Signs: Vital Signs: Last Vital Signs Temp 96.7 F L 08/30/23 12:36 Pulse 107 H 08/30/23 15:09 Resp 32 H 08/30/23 15:09 BP 130/70 08/30/23 15:09 Pulse Ox 93 08/30/23 15:09 O2 Del Method BiPAP 08/30/23 15:09 O2 Flow Rate 75 08/30/23 15:09 BMI result Body Mass Index 27.5 Appearance: Alert. Oriented X3. No acute distress. Eyes: Pupils equal, round and reactive to light. ENT: Pharynx normal. Neck: Normal inspection. Neck supple. CVS: irregular heart rate and rhythm. Pulses normal. Respiratory: No respiratory distress. Breath sounds normal. Abdomen: Soft and nontender. Skin: Skin warm and dry. pale skin color. Normal skin turgor. Extremities: No lower extremity edema. No calf ttp Neuro: Oriented X 3. No motor deficit. No sensory deficit. Course Course Course Narrative: lactic acidosis due to metformin use and not infection or severe sepsis 1040am. Reevaluation(s) Reevaluation #1: after CT scan on arrival into room became acutely short of breath rales in both bases 85% on RA, JVD tachypnea and concern for flash pulm edema more so than allergic reaction - steroids, pepcid and then lasix, nitro paste and bipap ordered with improvement. very similar to prior presentation of past pulm edema CXR shows increased diffuse edema bipap used for flash pulmonary edema not infection or severe sepsis Reevaluation #2: BP is improving work of breathing is improving but she is still restless and agitated repeat fentanyl ordered HR down to 110s BP down to 150 from 180s Reevaluation #3: lactic acidosis is due to hypoxia and metformin not infection or severe sepsis respiratory failure and bipap due to CHF / flash pulm edema and not infection or severe sepsis Medications Administered Discontinued Medications Generic Name Dose Route Start Last Admin Trade Name Freq PRN Reason Stop Dose Admin Famotidine 20 mg 08/30/23 13:30 08/30/23 13:34 Famotidine/Pf 20 Mg/2 Ml Vial IVPUSH 08/30/23 13:31 20 mg ONCE ONE Administration Fentanyl 25 mcg 08/30/23 14:15 08/30/23 14:10 Fentanyl Citrate/Pf 100 Mcg/2 Ml Vial IVPUSH 08/30/23 14:16 25 mcg ONCE ONE Administration Protocol Fentanyl 25 mcg 08/30/23 14:15 08/30/23 13:50 Fentanyl Citrate/Pf 100 Mcg/2 Ml Vial IVPUSH 08/30/23 14:16 25 mcg ONCE ONE Administration Protocol Furosemide 40 mg 08/30/23 14:35 08/30/23 13:38 Furosemide 40 Mg/4 Ml Vial IVPUSH 08/30/23 14:36 40 mg STAT STA Administration Protocol Furosemide 20 mg 08/30/23 14:47 08/30/23 14:52 Furosemide 20 Mg/2 Ml Vial IVPUSH 08/30/23 14:48 20 mg ONCE ONE Administration Protocol Sodium Chloride 250 mls @ 250 mls/hr 08/30/23 10:43 08/30/23 13:02 Ns IV 08/30/23 11:42 Infused .Q1H ONE Infusion Iohexol 100 ml 08/30/23 13:13 08/30/23 13:14 Iohexol 350 Mg/Ml 100 Ml Infus..Btl IV 08/30/23 13:14 85 ml ONCE ONE Administration Methylprednisolone Sodium Succinate 125 mg 08/30/23 13:30 08/30/23 13:34 Methylprednisolone Sod Succ 125 Mg/2 Ml Vial IVPUSH 08/30/23 13:31 125 mg ONCE ONE Administration Nitroglycerin 1 inch 08/30/23 14:15 08/30/23 14:02 Nitroglycerin 2 % Oint 1 Gm Packet TRANSDERMA 08/30/23 14:16 1 inch ONCE ONE Administration Medical Decision Making Medical Decision Making MDM Narrative: 83 yo female with PMH of CHF, HTN, afib on eliquis, UTI, gallstones, pulm HTN, anemia, GERD, renal colic, DM, HLD, prior intubation back in December with transfer to [place] for acute CHF and flash pulmonary edema here with vague epigastric pain , sternal discomfort feels bloated but no fevers. Family feels she is off but she is alert and oriented x 3. At this time labs, UA, CXR, troponin x 2, BNP, EKG, she does not appear clinically volume overloaded on exam. No fevers reported her last UA was negative. She has mild upper abdominal pain may need US of gallbladder Differential Diagnosis Differential Diagnoses: The differential diagnosis associated with the presentation includes afib, CHF, dehydration, anemia Admission/Observation Consideration of admission/observation: Escalation of care including admission/observation considered needs admission given flash pulm edema and increased O2 needs Consult Healthcare Provider Management of the patient was discussed with: News Assignment Editor (ICU to admit - Dr. Cox) Lab Data MDM Lab Attestation statement: I reviewed the patient's lab results. 08/30/23 10:09 08/30/23 10:09 Labs: Lab Results 08/30/23 08/30/23 08/30/23 Range/Units 09:38 10:09 10:10 WBC 8.2 (4.8-10.8) X10*3/uL RBC 4.45 (4.20-5.50) X10*6/uL Hgb 12.0 (12.0-16.0) g/dl Hct 36.8 L (37.0-47.0) % MCV 82.7 (80.0-98.0) fL MCH 27.0 (27.0-33.0) pg MCHC 32.6 (31.0-35.0) g/dl RDW 15.7 (11.0-16.0) % Plt Count 283 (160-400) X10*3/uL MPV 9.3 L (9.4-12.3) fL Immature Gran % (Auto) 0.7 H (0.0-0.4) % Neut % (Auto) 78.2 H (45-73) % Lymph % (Auto) 10.1 L (20-40) % [place] % (Auto) 7.7 (2-11) % Eos % (Auto) 2.8 (0-4) % Baso % (Auto) 0.5 (0-2) % Lymph # (Auto) 0.8 L (1.2-4.9) X10*3/uL [place] # (Auto) 0.6 (0.1-1.2) X10*3/uL Eos # (Auto) 0.2 (0.0-0.4) X10*3/uL Baso # (Auto) 0.0 (0.0-0.2) X10*3/uL Abs Immat Gran (auto) 0.06 H (0.00-0.03) X10*3/uL Absolute Neuts (auto) 6.4 (2.0-8.3) x10*3/uL Absolute Nucleated RBC 0.000 (0.0-0.012) X10*3/uL Nucleated RBC % (auto) 0.0 (0.0-0.2) /100WBC Sodium 137 (135-145) mmol/L Potassium 3.9 (3.3-5.1) mmol/L Chloride 99 (96-108) mmol/L Carbon Dioxide 29 (22-29) mmol/L Anion Gap 13 (12-20) BUN 22 H (9-16) mg/dL Creatinine 0.94 (0.5-1.4) mg/dL Estim Creat Clear Calc 42.7 Estimated GFR 57 POC Glucose 170 H (60-115) mg/dL Random Glucose 189 H (60-115) mg/dL Lactic Acid 2.8 H* (0.5-2.0) mmol/L Lactic Acid F/U @ 2Hr (0.5-2.0) mmol/L Calcium 9.8 (8.4-10.2) mg/dL Magnesium 2.2 (1.6-2.6) mg/dL Total Bilirubin 0.5 (0.0-1.0) mg/dL Direct Bilirubin 0.2 (0.0-0.5) mg/dL AST 13 (5-31) U/L ALT 10 (0-31) U/L Alkaline Phosphatase 61 (39-117) U/L Troponin I High Sens 10.8 (<3.5-17.0) ng/L B-Natriuretic Peptide 69 (<100) pg/mL Total Protein 8.1 H (6.5-8.0) g/dL Albumin 4.3 (3.5-5.0) g/dL Lipase 46 (8-78) U/L Urine Color Urine Appearance Urine pH (5.0-9.0) Ur Specific [place] (1.005-1.025) Urine Protein (Neg-Trace) mg/dL Urine Glucose (UA) (Negative) mg/dL Urine Ketones (Negative) mg/dL Urine Blood (Negative) Urine Nitrite (Negative) Ur Leukocyte Esterase (Negative) Urine RBC (0-2) /HPF Urine WBC (0-5) /HPF Ur Squamous Epith Cells (0-2) /HPF Urine Bacteria (None Seen) Hyaline Casts (0-2) /LPF 08/30/23 08/30/23 08/30/23 Range/Units 10:41 14:10 14:19 WBC (4.8-10.8) X10*3/uL RBC (4.20-5.50) X10*6/uL Hgb (12.0-16.0) g/dl Hct (37.0-47.0) % MCV (80.0-98.0) fL MCH (27.0-33.0) pg MCHC (31.0-35.0) g/dl RDW (11.0-16.0) % Plt Count (160-400) X10*3/uL MPV (9.4-12.3) fL Immature Gran % (Auto) (0.0-0.4) % Neut % (Auto) (45-73) % Lymph % (Auto) (20-40) % [place] % (Auto) (2-11) % Eos % (Auto) (0-4) % Baso % (Auto) (0-2) % Lymph # (Auto) (1.2-4.9) X10*3/uL [place] # (Auto) (0.1-1.2) X10*3/uL Eos # (Auto) (0.0-0.4) X10*3/uL Baso # (Auto) (0.0-0.2) X10*3/uL Abs Immat Gran (auto) (0.00-0.03) X10*3/uL Absolute Neuts (auto) (2.0-8.3) x10*3/uL Absolute Nucleated RBC (0.0-0.012) X10*3/uL Nucleated RBC % (auto) (0.0-0.2) /100WBC Sodium (135-145) mmol/L Potassium (3.3-5.1) mmol/L Chloride (96-108) mmol/L Carbon Dioxide (22-29) mmol/L Anion Gap (12-20) BUN (9-16) mg/dL Creatinine (0.5-1.4) mg/dL Estim Creat Clear Calc Estimated GFR POC Glucose 239 H (60-115) mg/dL Random Glucose (60-115) mg/dL Lactic Acid (0.5-2.0) mmol/L Lactic Acid F/U @ 2Hr 4.2 H* (0.5-2.0) mmol/L Calcium (8.4-10.2) mg/dL Magnesium (1.6-2.6) mg/dL Total Bilirubin (0.0-1.0) mg/dL Direct Bilirubin (0.0-0.5) mg/dL AST (5-31) U/L ALT (0-31) U/L Alkaline Phosphatase (39-117) U/L Troponin I High Sens 21.2 H D (<3.5-17.0) ng/L B-Natriuretic Peptide (<100) pg/mL Total Protein (6.5-8.0) g/dL Albumin (3.5-5.0) g/dL Lipase (8-78) U/L Urine Color Yellow Urine Appearance Clear Urine pH 7.0 (5.0-9.0) Ur Specific [place] 1.010 (1.005-1.025) Urine Protein Negative (Neg-Trace) mg/dL Urine Glucose (UA) Negative (Negative) mg/dL Urine Ketones Negative (Negative) mg/dL Urine Blood Trace H (Negative) Urine Nitrite Negative (Negative) Ur Leukocyte Esterase Negative (Negative) Urine RBC 3-5 H (0-2) /HPF Urine WBC 0-5 (0-5) /HPF Ur Squamous Epith Cells 0-2 (0-2) /HPF Urine Bacteria None Seen (None Seen) Hyaline Casts 0-2 (0-2) /LPF Independent Interpretation I performed an independent interpretation of an: EKG, Plain X-Ray (initial no consolidation repeat diffuse edema) and CT Scan (gallstones but no acute cholecystitis, no ICH) Interpretation: Rate: 65 Rhythm: afib with 2 PVCs Anna: left Normal QRS complex. ST T wave : no MONICA, inverted t waves I and aVL qTC: 453 prior studies: no acute change from prior The study has been interpreted contemporaneously by me. . Radiology Impression Discussion of test interpretation with radiology: I have reviewed the radiologist's reading. Independent Historian Clinical information obtained from an independent historian. History obtained from or confirmed by: Other (daughter) External Record Review External record reviewed: Inpatient record Critical Care Time Critical Care Time Critical Care Time: Yes Total Critical Care Time: 80 Attestation: repeat bedside assessments, family discussion, review of records, hypoxia correction, Bipap intervention, flash pulm edema intervention, consult I attest to this time spent taking care of the patient Discharge Plan Discharge Clinical Impression: Flash pulmonary edema, Acute hypoxemic respiratory failure Patient Disposition: Admitted As Inpatient Print Language: Yi
[2023-08-30 10:16] LABS: Basophils Percent Auto 0.5 % (0-2); Eosinophils Absolute Auto 0.2 X10*3/uL (0.0-0.4); Eosinophils Percent Auto 2.8 % (0-4); Hematocrit 36.8 % (37.0-47.0); Imm Gran Abs Auto 0.06 X10*3/uL (0.00-0.03); Imm Gran Pct Auto 0.7 % (0.0-0.4); Lymphocytes Absolute Auto 0.8 X10*3/uL (1.2-4.9); Lymphocytes Percent Auto 10.1 % (20-40); Mean Corpuscular HGB Conc 32.6 g/dl (31.0-35.0); Mean Corpuscular Volume 82.7 fL (80.0-98.0); Mean Platelet Volume 9.3 fL (9.4-12.3); Monocytes Absolute Auto 0.6 X10*3/uL (0.1-1.2); Monocytes Percent Auto 7.7 % (2-11); Neutrophils Absolute Auto 6.4 x10*3/uL (2.0-8.3); Neutrophils Percent Auto 78.2 % (45-73); Platelet Count 283 X10*3/uL (160-400); Red Blood Count 4.45 X10*6/uL (4.20-5.50); Red Cell Distribution Width 15.7 % (11.0-16.0); White Blood Count 8.2 X10*3/uL (4.8-10.8)
[2023-08-30 10:35] LABS: Alanine Aminotransferase 10 U/L (0-31); Albumin Level 4.3 g/dL (3.5-5.0); Alkaline Phosphatase 61 U/L (39-117); Anion Gap 13 (12-20); Aspartate Amino Transferase 13 U/L (5-31); Bilirubin Direct 0.2 mg/dL (0.0-0.5); Bilirubin Total 0.5 mg/dL (0.0-1.0); Blood Urea Nitrogen 22 mg/dL (9-16); Calcium 9.8 mg/dL (8.4-10.2); Carbon Dioxide 29 mmol/L (22-29); Chloride 99 mmol/L (96-108); Creatinine Clr Calc Pharmacy 42.7; Estimated Glomerular Filt Rate 57; Glucose Random 189 mg/dL (60-115); Lipase 46 U/L (8-78); Magnesium 2.2 mg/dL (1.6-2.6); Potassium 3.9 mmol/L (3.3-5.1); Sodium 137 mmol/L (135-145); Total Protein 8.1 g/dL (6.5-8.0)
[2023-08-30 10:39] LABS: Troponin-I High Sensitivity 10.8 ng/L (<3.5-17.0)
[2023-08-30 10:40] LABS: B Type Natriuretic Peptide 69 pg/mL (<100)
[2023-08-30 10:40] LABS: Lactic Acid 2.8 mmol/L (0.5-2.0)
[2023-08-30 10:48] LABS: Glucose, Whole Blood 170 mg/dL (60-115)
[2023-08-30 10:59] LABS: Appearance Urine Clear; Color Urine Yellow; Glucose Urine UA Negative (Negative); Leukocyte Esterase Urine Negative (Negative); Nitrite Urine Negative (Negative); UMIC TRIGGER UACC YES; Urine Blood Trace (Negative); Urine Ketones Negative (Negative); Urine Protein Negative (Neg-Trace)
[2023-08-30 11:04] LABS: Bacteria Urine None Seen (None Seen); Hyaline Casts Urine 0-2 /LPF (0-2); Squamous Epithelial Cell Urine 0-2 /HPF (0-2); WBC Urine 0-5 /HPF (0-5)
[2023-08-30] MEDS: 0.9 % Sodium Chloride 250 ML IV (11:18)
[2023-08-30 12:14] LABS: Reflex Lactate? Lactic Acid Added
[2023-08-30] MEDS: iohexoL 350 MG/ML 100 ML INFUS..BTL IV (13:14)
[2023-08-30] MEDS: Famotidine/PF 20 MG/2 ML VIAL IVPUSH (13:34)
[2023-08-30] MEDS: methylPREDNISolone Sod Succ 125 MG/2 ML VIAL IVPUSH (13:34)
--- NOTE | 2023-08-30 13:35 | PC.NURSE ---
pt came back from ct scan,, having difficulty breathing and expressing increased chest pressure, pt's work of breathing increased breathing anywhere from 24-30 respirations per minute, sating at 85% on 2l, pt is clammy and ls wet/junky. pt's family thinking that maybe the pt is having a allergic reaction to the iv contrast- no know allergy to the contrast. dr walton at bedside
[2023-08-30] MEDS: Furosemide 40 MG/4 ML VIAL IVPUSH (13:38)
--- NOTE | 2023-08-30 13:45 | PC.NURSE ---
pt put on bipap setings 01/03/75%oxygen epap of 7 pt is breathing about 30 breaths per minute and sating 92% hr 109 and bp 153/82 pt is reporting of no improvement of her breathing/anxious pulling blankets off and holding to the bed rails, blankets removed from pt and periwick in place, nitro paste [address] on the left of the pt's chest
[2023-08-30] MEDS: fentaNYL citrate/PF 100 MCG/2 ML VIAL 25 MCG IVPUSH ×2 (13:50→14:10)
[2023-08-30] MEDS: Nitroglycerin 2 % Oint 1 GM Packet 1 INCH TRANSDERMA (14:02)
--- NOTE | 2023-08-30 14:11 | PC.NURSE ---
giving second dose of fentanyl 25mcg verbal order by dr walton at bedside
[2023-08-30 14:15] LABS: Glucose, Whole Blood 239 mg/dL (60-115)
--- NOTE | 2023-08-30 14:28 | PC.NURSE ---
family is removing and holding on to the pt's watch and wedding rings
--- NOTE | 2023-08-30 14:38 | PC.NURSE ---
pt voided about 50cc of urine, pt is starting to get tired in appearance, respirations dropped from 30-12 and sating at 86% on the bipap at 75% of oxygen, abd accessory muscles being used, pt is very clammy to touch dr walton called to bedside
--- NOTE | 2023-08-30 14:39 | MHC.EDTECH ---
POC glucose 239, Rn Ella nazario.
--- NOTE | 2023-08-30 14:40 | MHC.EDTECH ---
purewick applied, pt unable to urinate, DEANNE Jaramillo aware.
[2023-08-30 14:49] LABS: ~Lactic Acid-LAB USE ONLY 4.2 mmol/L (0.5-2.0)
[2023-08-30] MEDS: Furosemide 20 MG/2 ML VIAL IVPUSH ×2 (14:52→17:16)
[2023-08-30 14:53] LABS: Troponin-I High Sensitivity 21.2 ng/L (<3.5-17.0)
--- NOTE | 2023-08-30 15:25 | P.HPCC_ITS ---
History of Present Illness Date of Service: 08/30/23 Chief Complaint: Acute Hypoxic Respiratory Failure Patient is a 83 Y F with metabolic syndrome, c/b CHF, atrial fibrillation on apixaban, pulmonary hypertension, and prior flash pulmonary edema necessitating intubation, presenting initially on 08/29 w/ epigastric pain, found to be acutely dyspneic, hypoxic, clinically appeared to be in flash pulmonary edema, given nitroglycerin paste, placed on BiPAP w/ persistent acute hypoxic respiratory failure Review of Systems 2 Review of Systems: Yes all other systems are reviewed and are negative [facility] Past Medical History Medical History Nephrolithiasis Urinary tract infection Paroxysmal atrial fibrillation Cholelithiasis Renal cyst Pulmonary hypertension Non-rheumatic mitral regurgitation Permanent atrial fibrillation Right nephrolithiasis Compression deformity of vertebra Early satiety Microcytic anemia Heartburn Atrophic vaginitis Osteopenia Osteoarthritis of knees, bilateral Essential hypertension Dyslipidemia Type 2 diabetes mellitus with kidney complication, 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 Son No problems noted. Daughter No problems noted. Surgical History Surgical History History of esophagogastroduodenoscopy (EGD) (~10/2022) History of lumbar discectomy History of lobectomy of lung History of hysterectomy History of total right knee replacement (TKR) Lumbar radiculopathy Social History Social History Household Members: Spouse Housing: House Do you presently have visiting nurse or other home services: No Alcohol intake: never Patient Tobacco Use Status: Never used Tobacco e-Cigarette/Vaping Use: Never Used service: No Current occupational status: retired Cognitive needs: No Hearing needs: Yes Vision needs: Yes Meds Allergies Allergy/AdvReac Type Severity Reaction Status Date / Time adhesive tape [Adhesive Tape] Allergy Mild CONTACT Verified 08/30/23 09:47 DERMATITIS cephalexin [CEPHALEXIN] Allergy Unknown SWELLING Verified 08/30/23 09:47 latex [Latex] Allergy Unknown RASH Verified 08/30/23 09:47 Biaxin AdvReac Intermediate plapitation Verified 08/30/23 09:47 s bacitracin [From Cortisporin] AdvReac Mild EYE Verified 08/30/23 09:47 IRRITATION hydrocortisone AdvReac Mild EYE Verified 08/30/23 09:47 [From Cortisporin] IRRITATION neomycin [From Cortisporin] AdvReac Mild EYE Verified 08/30/23 09:47 IRRITATION flecainide [From Tambocor] AdvReac Unknown HEART Verified 08/30/23 09:47 RACING lisinopril [LISINOPRIL] AdvReac Unknown cough, Verified 08/30/23 09:47 nausea Sulfa (Sulfonamide AdvReac Unknown PALPITATION Verified 08/30/23 09:47 Antibiotics) S [SULFA(SULFONAMIDE ANTIBIOTICS)] Active Medications: Current Medications Nitroglycerin/Dextrose (Nitroglycerin/D5w) 100 mg in 250 mls @ 0 mls/hr IVCONT .Q0M TASHA; Protocol Home Medications ?Medication ?Instructions ?Recorded ?Confirmed ?Last Taken ?Type estradiol 0.01% (0.1 mg/gram) 1 g vaginal MOWEFR 12/19/21 08/30/23 08/30/23 History vaginal cream (Estrace) coenzyme Q10 100 mg capsule 100 mg PO DAILY 04/28/22 08/30/23 08/30/23 History (CoQ-10) insulin lispro 200 unit/mL (3 mL) 2 - 12 unit subcut DAILY 06/20/23 08/30/23 08/30/23 History subcutaneous pen (Humalog KwikPen U-200 Insulin) docusate sodium 100 mg capsule 100 mg PO DAILY PRN Constipation 08/30/23 08/30/23 08/30/23 History (Colace) gabapentin 100 mg capsule 100 mg PO BID PRN Pain 08/30/23 08/30/23 Unknown History loratadine 10 mg tablet (Wal-itin) 10 mg PO DAILY 08/30/23 08/30/23 08/30/23 History pantoprazole 40 mg tablet,delayed 40 mg PO DAILY@0630 08/30/23 08/30/23 08/30/23 History release vit C 250 mg-vit E 90 mg-zinc 40 1 tab PO BID 08/30/23 08/30/23 08/30/23 History mg-copper 1 [id number] capsule (PreserVision AREDS-2) Physical Exam 2 Vital Signs: Vital Signs: Last Vital Signs Temp 96.7 F L 08/30/23 12:36 Pulse 107 H 08/30/23 15:09 Resp 32 H 08/30/23 15:09 BP 130/70 08/30/23 15:09 Pulse Ox 93 08/30/23 15:09 O2 Del Method BiPAP 08/30/23 15:09 O2 Flow Rate 75 08/30/23 15:09 BMI result Body Mass Index 27.5 Const: Other: no appreciable increased work of breathing on BiPAP General: comfortable, no acute distress, well developed, alert, awake and Physically active Orientation/consciousness: patient oriented x3 HEENT: Head: Yes normal to inspection, Yes No palpable skull fracture present, Yes normocephalic and Yes atraumatic Eyes: General: appearance normal, both eyes and all related structures Neck: Neck: Yes normal visual inspection, Yes full ROM, Yes trachea midline and Yes supple Chest: Chest palpation & inspection: normal inspection of the chest Resp: Other: no appreciable rales, rhonchi, wheezing anterior lung lopez Effort & Inspection: normal respiratory effort and able to speak in complete sentences Cardio: Rate: regular rate Rhythm: regular rhythm GI: Inspection: Yes normal to inspection, No Abdominal wall edema and No distended Palpation (GI): Soft to palpation, not firm, nontender, no guarding and not rigid : External Female Exam: normal external appearance Skin: General skin exam: no rashes or lesions noted Neuro: General: patient oriented x3, tone normal, moves all extremities and no focal motor deficits Extrem: Other: appreciable trace pitting edema bilateral shins General: Yes normal to inspection, Yes full ROM and Yes capillary refill normal Psych: Appearance: grossly normal Results Labs 08/30/23 10:09 08/30/23 10:09 Labs: Laboratory Results - last 24 hr 08/30/23 08/30/23 08/30/23 09:38 10:09 10:10 MCV 82.7 MCH 27.0 MCHC 32.6 RDW 15.7 Plt Count 283 MPV 9.3 L Immature Gran % (Auto) 0.7 H Neut % (Auto) 78.2 H Lymph % (Auto) 10.1 L Richardson % (Auto) 7.7 Eos % (Auto) 2.8 Baso % (Auto) 0.5 Lymph # (Auto) 0.8 L Richardson # (Auto) 0.6 Eos # (Auto) 0.2 Baso # (Auto) 0.0 Abs Immat Gran (auto) 0.06 H Absolute Neuts (auto) 6.4 Absolute Nucleated RBC 0.000 Nucleated RBC % (auto) 0.0 Anion Gap 13 Estim Creat Clear Calc 42.7 Estimated GFR 57 POC Glucose 170 H Random Glucose 189 H Lactic Acid 2.8 H* Lactic Acid F/U @ 2Hr Calcium 9.8 Magnesium 2.2 Total Bilirubin 0.5 Direct Bilirubin 0.2 AST 13 ALT 10 Alkaline Phosphatase 61 Troponin I High Sens 10.8 B-Natriuretic Peptide 69 Total Protein 8.1 H Albumin 4.3 Lipase 46 Urine Color Urine Appearance Urine pH Ur Specific [place] Urine Protein Urine Glucose (UA) Urine Ketones Urine Blood Urine Nitrite Ur Leukocyte Esterase Urine RBC Urine WBC Ur Squamous Epith Cells Urine Bacteria Hyaline Casts 08/30/23 08/30/23 08/30/23 10:41 14:10 14:19 MCV MCH MCHC RDW Plt Count MPV Immature Gran % (Auto) Neut % (Auto) Lymph % (Auto) Richardson % (Auto) Eos % (Auto) Baso % (Auto) Lymph # (Auto) Richardson # (Auto) Eos # (Auto) Baso # (Auto) Abs Immat Gran (auto) Absolute Neuts (auto) Absolute Nucleated RBC Nucleated RBC % (auto) Anion Gap Estim Creat Clear Calc Estimated GFR POC Glucose 239 H Random Glucose Lactic Acid Lactic Acid F/U @ 2Hr 4.2 H* Calcium Magnesium Total Bilirubin Direct Bilirubin AST ALT Alkaline Phosphatase Troponin I High Sens 21.2 H D B-Natriuretic Peptide Total Protein Albumin Lipase Urine Color Yellow Urine Appearance Clear Urine pH 7.0 Ur Specific [place] 1.010 Urine Protein Negative Urine Glucose (UA) Negative Urine Ketones Negative Urine Blood Trace H Urine Nitrite Negative Ur Leukocyte Esterase Negative Urine RBC 3-5 H Urine WBC 0-5 Ur Squamous Epith Cells 0-2 Urine Bacteria None Seen Hyaline Casts 0-2 Imaging Radiologist's Impressions: Impressions Chest X-Ray 08/30/23 10:25 IMPRESSION: 1. Stable blunting right costophrenic recess representing trace pleural effusion versus scarring. 2. Surgical material right mid and lower lung field. 3. Chronic interstitial lung markings. 4. Bibasilar atelectasis, left greater than right may reflect atelectasis/scarring, though evolving patches/inflammatory etiology not excluded. Abdomen/Pelvis CT 08/30/23 13:14 IMPRESSION: 1. No acute process of the abdomen or pelvis identified. 2. Metallic radiodensity within the stomach of unclear etiology. 3. Cholelithiasis without acute cholecystitis. 4. Bilateral hypodense renal foci demonstrating fluid attenuation, statistically representing cysts, not requiring follow-up. 5. Right-sided nephrolithiasis versus vascular calcification measuring 1.1 cm without hydronephrosis. 6. Small hiatal hernia. 7. Colonic diverticulosis without acute diverticulitis. 8. Osteopenia. Redemonstrated compression deformity of T11 and to lesser extent T12. Head CT 08/30/23 13:14 IMPRESSION: No acute intracranial abnormality. Mild microvascular ischemic change. Chest X-Ray 08/30/23 13:49 IMPRESSION: Marked interval progression of bilateral alveolar infiltrates, most notable on the left compared to the right. This could be early presentation of ARDS versus interstitial pulmonary edema. Assessment and Plan (1) Acute hypoxemic respiratory failure: Status: Acute (2) Flash pulmonary edema: Status: Acute (3) Congestive heart failure: Qualifiers: Heart failure type: unspecified Heart failure chronicity: unspecified Qualified Code(s): I50.9 - Heart failure, unspecified Status: Acute (4) Paroxysmal atrial fibrillation: Status: Acute Plan Patient is a 83 Y F with metabolic syndrome, c/b CHF, atrial fibrillation on apixaban, pulmonary hypertension, and prior flash pulmonary edema necessitating intubation, presenting initially on 08/29 w/ epigastric pain, though appeared to be clinically in flash pulmonary edema, given nitroglycerin paste, placed on BiPAP w/ persistent acute hypoxic respiratory failure N: no acute issues CV: hemodynamically stable; to follow-up serial troponins, echocardiogram; hypertension, home amlodipine, losartan when appropriate; CHF, avoid metoprolol in acute setting; atrial fibrillation, home apixaban when PO R: acute hypoxic respiratory failure, thought to be d/t flash pulmonary edema, nitro gtt, BiPAP, wean as tolerated GI: NPO while on BiPAP : no acute issues; continue diuresis as needed; to monitor electrolytes H: no acute issues; chemical DVT prophylaxis; atrial fibrillation, home apixaban when PO ID: no stigmata of infection; to monitor E: to monitor hypo-/hyper-glycemia S: updates provided to daughter and son at bedside
[2023-08-30] MEDS: Nitroglycerin/D5W 100 MG/250 ML INFUS..BTL IVCONT (15:37)
[2023-08-30 16:23] LABS: Reflex Lactate? 2 Y
--- NOTE | 2023-08-30 16:53 | PC.NURSE ---
Nitro paste stopped at 15:42 and removed from Ella ALICEA. Nitro drip stopped at 16:35 per low heel builder.
--- NOTE | 2023-08-30 16:55 | PHA.MEDREC ---
Pharmacy Consult ? Medication Reconciliation Pharmacy has completed the medication reconciliation. Spoke with Patients daughter at bedside to confirm med list. She states patient takes Humalog and Lantus solostar are both per sliding scale. She says, her humalog she ranges from 8-10 units but her last dose 08-30-23 in the morning was 4 units . Claims says 35 units at bedtime. patients daughter also states lantus Solostar is per sliding scale, however she couldn't give a sliding scale dose. Her last dose was 18 uints on 08-30-23 morning. Left as Lantus solostar 20 units at bedtime verified through claims. Daughter was very adamant about not giving her mother metformin 1,000 mg bid dose untill 08-31-2023 after 1:15pm due to a procedure she had on 08-30-23 in the morning!
[2023-08-30] MEDS: Heparin Sodium,Porcine 5,000 UNIT/ML VIAL 5000 UNIT SUBCUT (17:11)
--- NOTE | 2023-08-30 17:21 | MHC.EDTECH ---
I went to change the bed and repositioned the patient but family did not want her repositioned due to her being comfortable in the position she was in
--- NOTE | 2023-08-30 18:26 | PC.NURSE ---
Pt brought to ICU at approx 1800 accompanied by RT and ED RN. Pt A&Ox4, slightly anxious. Pt on BiPAP on arrival, attempted to wean off - pt unable to tolerate. Placed back on BiPAP, continued previous settings. O2 sat 98% BP 101/81 HR 86. AFib on monitor. ROSE independently. Non-pitting edema to BUE/BLE. Blanchable redness to buttocks, skin intact. Purewick in place, however pt able to voice need to void. Lives at home alone, recently . Independent with ADL's at baseline. Ambulates independently with rolling walker. Family very involved, sister and son currently at bedside. Pt requesting applejuice and applesauce, educated on NPO status d/t BiPAP. Pt offers no complaints or concerns at this time. Plan of care ongoing.
[2023-08-30 19:09] LABS: MANUAL DIFF FLAG NO
[2023-08-30 19:11] LABS: Basophils Absolute Auto 0.1 X10*3/uL (0.0-0.2); Basophils Percent Auto 0.4 % (0-2); Eosinophils Percent Auto 0.1 % (0-4); Hematocrit 38.9 % (37.0-47.0); Hemoglobin 12.7 g/dl (12.0-16.0); Imm Gran Abs Auto 0.19 X10*3/uL (0.00-0.03); Imm Gran Pct Auto 1.2 % (0.0-0.4); Lymphocytes Absolute Auto 0.3 X10*3/uL (1.2-4.9); Lymphocytes Percent Auto 1.6 % (20-40); Mean Corpuscular HGB Conc 32.6 g/dl (31.0-35.0); Mean Corpuscular Volume 82.8 fL (80.0-98.0); Mean Platelet Volume 9.7 fL (9.4-12.3); Monocytes Absolute Auto 0.3 X10*3/uL (0.1-1.2); Monocytes Percent Auto 1.5 % (2-11); Neutrophils Absolute Auto 15.6 x10*3/uL (2.0-8.3); Neutrophils Percent Auto 95.2 % (45-73); Platelet Count 293 X10*3/uL (160-400); Red Cell Distribution Width 15.6 % (11.0-16.0); SCAN SMEAR FLAG 1; White Blood Count 16.4 X10*3/uL (4.8-10.8)
[2023-08-30 19:38] LABS: Anion Gap 18 (12-20); Blood Urea Nitrogen 25 mg/dL (9-16); Calcium 9.5 mg/dL (8.4-10.2); Carbon Dioxide 26 mmol/L (22-29); Chloride 99 mmol/L (96-108); Creatinine Clr Calc Pharmacy 36.3; Estimated Glomerular Filt Rate 46; Glucose Random 362 mg/dL (60-115); Magnesium 1.9 mg/dL (1.6-2.6); Phosphorus 4.5 mg/dL (2.7-4.5); Potassium 4.7 mmol/L (3.3-5.1); Sodium 138 mmol/L (135-145)
[2023-08-30 19:51] LABS: TSH reflex Free T4 2.03 uIU/mL (0.32-4.0)
[2023-08-30] MEDS: Insulin Lispro 100 UNIT/ML 3 ML VIAL SUBCUT ×2 (20:00→21:55)
[2023-08-30] MEDS: Insulin Glargine,Hum.rec.anlog 100 UNIT/ML 10 ML VIAL 20 UNIT SUBCUT (21:08)
[2023-08-30 21:50] LABS: Glucose, Whole Blood 307 mg/dL (60-115)
[2023-08-31] VITALS (25 sets, daily range): BP systolic 90–150; BP diastolic 47–81; PULSE 55–130; RESP 16–35; TEMP 36.2–36.5; O2SAT 90–98; BMI 28.8
--- NOTE | 2023-08-31 | ECG_ITS ---
Test Reason : Chest Pressure Blood Pressure : / mmHG Vent. Rate : 119 BPM Atrial Rate : 000 BPM P-R Int : 000 ms QRS Dur : 138 ms QT Int : 360 ms P-R-T Axes : 000 -27 128 degrees QTc Int : 506 ms Atrial fibrillation with rapid ventricular response with premature ventricular or aberrantly conducted complexes Left bundle branch block Abnormal ECG When compared with ECG of 30-AUG-2023 09:38, Vent. rate has increased BY 54 BPM Referred By: Rosario Cox Electronically Signed By:DANIKA ULLOA
[2023-08-31] MEDS: Heparin Sodium,Porcine 5,000 UNIT/ML VIAL 5000 UNIT SUBCUT ×2 (02:13→09:46)
[2023-08-31 05:00] LABS: VBG HCO3 28 mmol/L (22-26); VBG pCO2 36 mmHg; VBG pH 7.49 (7.32-7.43); VBG pO2 52 mmHg
[2023-08-31 05:02] LABS: Venous Blood Gas Refer to POC result
[2023-08-31 05:16] LABS: MANUAL DIFF FLAG NO
[2023-08-31 05:18] LABS: Basophils Percent Auto 0.2 % (0-2); Eosinophils Percent Auto 0.1 % (0-4); Hematocrit 36.6 % (37.0-47.0); Hemoglobin 12.1 g/dl (12.0-16.0); Imm Gran Abs Auto 0.07 X10*3/uL (0.00-0.03); Imm Gran Pct Auto 0.6 % (0.0-0.4); Lymphocytes Absolute Auto 0.8 X10*3/uL (1.2-4.9); Lymphocytes Percent Auto 6.1 % (20-40); Mean Corpuscular HGB Conc 33.1 g/dl (31.0-35.0); Mean Corpuscular Hemoglobin 26.7 pg (27.0-33.0); Mean Corpuscular Volume 80.6 fL (80.0-98.0); Mean Platelet Volume 9.9 fL (9.4-12.3); Monocytes Absolute Auto 0.7 X10*3/uL (0.1-1.2); Monocytes Percent Auto 5.7 % (2-11); Neutrophils Absolute Auto 11.1 x10*3/uL (2.0-8.3); Neutrophils Percent Auto 87.3 % (45-73); Platelet Count 275 X10*3/uL (160-400); Red Blood Count 4.54 X10*6/uL (4.20-5.50); Red Cell Distribution Width 15.8 % (11.0-16.0); White Blood Count 12.6 X10*3/uL (4.8-10.8)
[2023-08-31 05:42] LABS: Anion Gap 17 (12-20); Blood Urea Nitrogen 30 mg/dL (9-16); Calcium 9.6 mg/dL (8.4-10.2); Carbon Dioxide 26 mmol/L (22-29); Chloride 101 mmol/L (96-108); Estimated Glomerular Filt Rate 50; Glucose Random 194 mg/dL (60-115); Phosphorus 3.3 mg/dL (2.7-4.5); Potassium 3.9 mmol/L (3.3-5.1); Sodium 140 mmol/L (135-145)
--- NOTE | 2023-08-31 05:43 | PC.NURSE ---
Pt on bipap at beginning of shift. Pt kept requesting to take the bipap mask off, educated numerous times about why she was requiring the bipap. Around 0300 pt was removed from bipap by RT and placed on 4L O2 NC. Pt has a cough and is clearing her throat numerous times after bipap was removed. When asked about it, pt stated she has had the cough and throat clearing for years and she thought it may also be seasonal allergies. Pt attempted to blow her nose but did not have anything come out. Pt has BL hearing aids charging and is very [place] w/out them. Pt and family state pt is independent at home but no longer drives. Call hassan within reach, safety maintained throughout shift.
--- NOTE | 2023-08-31 07:00 | CA_ITS ---
Transthoracic Echocardiogram Patient (Last, First, Middle): Aminah Kraft P Gender: Female Date of : 1940 Age: 83 Procedure Date: 08/31/2023 Procedure Type: Transthoracic Echocardiogram Location: ICU Height: 162.56 cm Weight: 75.75 kg BSA: 1.81 m2 Heart Rate: bpm BP: 102 / 48 mmHg [employer]: Referring MD: Rosario Cox MD Symptoms: HF, Please Assess Cardiac Function Study Quality: Adequate ECG Rhythm: Atrial Fibrillation Conclusions: - The left ventricular systolic function is moderately decreased. The calculated ejection fraction is 35% by biplane method. - There is moderate calcification of the aortic valve. There is moderate aortic valve stenosis. Findings Left Ventricle Normal left ventricular cavity size. There is mildly increased left ventricular wall thickness. The left ventricular systolic function is moderately decreased. The calculated ejection fraction is 35% by biplane method. There is moderate global hypokinesis. There is paradoxical septal motion consistent with a left bundle branch block. Diastolic function is indeterminate on the basis of available data. Right Ventricle Moderately increased right ventricular cavity size. There is normal right ventricular systolic function. Atria The left atrium is severely dilated. The right atrium is moderately dilated. Aortic Valve There is moderate calcification of the aortic valve. There is moderate aortic valve stenosis. The mean gradient is 9 mmHg. The aortic valve area is 1.19 cm2. There is no aortic valve regurgitation. Dimensionless index 0.37. Stroke volume index 26 mL/m2. Mitral Valve There is mild mitral annular calcification. There is mild to moderate mitral valve regurgitation. There is no mitral valve stenosis. Pulmonic Valve The pulmonic valve is likely normal. Tricuspid Valve There is trace tricuspid valve regurgitation. Mild pulmonary hypertension is present. Great Vessels The asc aorta is normal in size. Venous The inferior vena cava is mildly dilated and collapses greater than 50% with inspiration. Pericardium/Pleural There is no evidence of pericardial effusion. Prior Study Comparison Changes noted compared to prior study dated: 08/30/2020. Decrease in LVEF. See comment on aortic stenosis. Measurements 2D Linear Measurements IVSd: 1.25 0.6-0.9/0.6-1.0 cm LVIDd: 4.42 3.9-5.3/4.2-5.9 cm LVIDd Index: 2.44 2.4-3.2/2.2-3.1 cm/m2 LVIDs: 3.08 2.0-3.6 cm LVPWd: 1.26 0.7-1.1 cm Ao Root: 2.90 2.1-3.5 cm LA Diam: 5.60 2.7-3.8/3.0-4.0 cm LAIDs Index: 3.09 1.5-2.3 cm/m2 LV Mass: 256.32 67-162/88-224 g LV Mass Index: 141.61 43-95/49-115 g/m2 LVOT Diam: 2.00 3.0+(-)1.3 cm 2D Systolic Function EF 4C: 39.30 >55% EF 2C: 34.40 >55% EF BiP: 34.80 >55% Mitral Valve MV Pk E: 1.16 MV Decel Time: 179.00 E'Lateral: 9.46 E'Medial: 5.00 E/E' Med: 23.20 E/E' Lat: 12.30 PHT: 52.00 MVA PHT: 4.23 Decel [place]: 6.47 Aortic Valve AoV Pk Sunil: 2.21 AoV Mn Sunil: 1.35 AoV VTI: 0.40 AoV Pk Grad: 20.00 Aov Mn Grad: 9.00 DAVID Cont.VTI: 1.19 LVOT LVOT Pk Sunil: 0.82 LVOT Mn Sunil: 0.55 LVOT VTI: 0.15 LVOT Pk Grad: 3.00 LVOT Mn Grad: 1.00 LVOT Diam: 2.00 LVOT Area: 3.14 Diastolic Function MV Pk E: 1.16 E'Medial: 5.00 E/E' Med: 23.20 E' Laterial: 9.46 E/E' Lat: 12.30 Right Ventricle TAPSE (mm): 17.00 TVS' Sunil: 11.00 Tricuspid Valve TR Pk Sunil: 3.05 TR Pk Grad: 37.00 RA Press: 3.00 RVSP: 40.00 Great Vessels Aorta Ao Root-2D: 2.90 2.0-3.7 cm Ao Asc: 3.20 2.1-3.4 cm Pulmonary Valve PV Pk Sunil: 1.39 Peak PV Grad: 8.00 Updated in Other Vendor System with Status of Final Geoff Callahan MD electronically signed on 08/31/2023 12:25:40 PM with status of Final
[2023-08-31 07:25] LABS: Glucose, Whole Blood 179 mg/dL (60-115)
--- NOTE | 2023-08-31 07:42 | PC.RT ---
Pt noted off bipap at this time zaire 4 lpm via n/c. Pt is resting and in no distress at this time, Bipap on [place] at bedside, Nurse aware.
--- NOTE | 2023-08-31 07:56 | P.PNCC_ITS ---
Subjective Subjective Date of Service: 08/31/23 Interval History: no significant overnight events; no longer on BiPAP Critical Care Time (minutes): 60 Physical Exam 2 Vital Signs: Vital Signs: Last Vital Signs Temp 97.1 F 08/31/23 03:00 Pulse 69 08/31/23 07:00 Resp 18 08/31/23 07:00 BP 102/48 L 08/31/23 07:00 Pulse Ox 93 08/31/23 07:00 O2 Del Method Nasal Cannula 08/31/23 07:00 O2 Flow Rate 4 08/31/23 07:00 FiO2 75 08/31/23 02:00 BMI result Body Mass Index 28.8 Const: General: cooperative, healthy appearing, comfortable, no acute distress, well developed, alert, awake and Physically active O rientation/consciousness: patient oriented x3 HEENT: Head: Yes normal to inspection, Yes normocephalic and Yes atraumatic Eyes: General: appearance normal, both eyes and all related structures Neck: Neck: Yes normal visual inspection, Yes full ROM, Yes no meningeal signs, Yes trachea midline and Yes supple Chest: Chest palpation & inspection: normal inspection of the chest Resp: Other: no appreciable rales, rhonchi, wheezing Effort & Inspection: normal respiratory effort Cardio: Rate: regular rate Rhythm: regular rhythm GI: Inspection: Yes normal to inspection, No Abdominal wall edema and No distended Palpation (GI): Soft to palpation, not firm, nontender, no guarding and not rigid : External Female Exam: normal external appearance Skin: General skin exam: no rashes or lesions noted Neuro: General: patient oriented x3, tone normal, moves all extremities, no meningeal signs and no focal motor deficits Extrem: General: Yes normal to inspection, Yes full ROM, Yes capillary refill normal and Yes no clubbing, cyanosis or edema Psych: Appearance: grossly normal Objective Data Labs 08/31/23 04:48 08/31/23 04:48 Labs: Laboratory Results - last 24 hr 08/30/23 08/30/23 08/30/23 09:38 10:09 10:10 WBC 8.2 RBC 4.45 Hgb 12.0 Hct 36.8 L MCV 82.7 MCH 27.0 MCHC 32.6 RDW 15.7 Plt Count 283 MPV 9.3 L Immature Gran % (Auto) 0.7 H Neut % (Auto) 78.2 H Lymph % (Auto) 10.1 L [place] % (Auto) 7.7 Eos % (Auto) 2.8 Baso % (Auto) 0.5 Lymph # (Auto) 0.8 L [place] # (Auto) 0.6 Eos # (Auto) 0.2 Baso # (Auto) 0.0 Abs Immat Gran (auto) 0.06 H Absolute Neuts (auto) 6.4 Absolute Nucleated RBC 0.000 Nucleated RBC % (auto) 0.0 VBG pH VBG pCO2 VBG pO2 VBG HCO3 VBG O2 Saturation VBG Base Excess Sodium 137 Potassium 3.9 Chloride 99 Carbon Dioxide 29 Anion Gap 13 BUN 22 H Creatinine 0.94 Estim Creat Clear Calc 42.7 Estimated GFR 57 POC Glucose 170 H Random Glucose 189 H Lactic Acid 2.8 H* Lactic Acid F/U @ 2Hr Lactic Acid F/U @ 4Hr Calcium 9.8 Phosphorus Magnesium 2.2 Total Bilirubin 0.5 Direct Bilirubin 0.2 AST 13 ALT 10 Alkaline Phosphatase 61 Troponin I High Sens 10.8 B-Natriuretic Peptide 69 Total Protein 8.1 H Albumin 4.3 Lipase 46 TSH Urine Color Urine Appearance Urine pH Ur Specific [place] Urine Protein Urine Glucose (UA) Urine Ketones Urine Blood Urine Nitrite Ur Leukocyte Esterase Urine RBC Urine WBC Ur Squamous Epith Cells Urine Bacteria Hyaline Casts 08/30/23 08/30/23 08/30/23 10:41 14:10 14:19 WBC RBC Hgb Hct MCV MCH MCHC RDW Plt Count MPV Immature Gran % (Auto) Neut % (Auto) Lymph % (Auto) [place] % (Auto) Eos % (Auto) Baso % (Auto) Lymph # (Auto) [place] # (Auto) Eos # (Auto) Baso # (Auto) Abs Immat Gran (auto) Absolute Neuts (auto) Absolute Nucleated RBC Nucleated RBC % (auto) VBG pH VBG pCO2 VBG pO2 VBG HCO3 VBG O2 Saturation VBG Base Excess Sodium Potassium Chloride Carbon Dioxide Anion Gap BUN Creatinine Estim Creat Clear Calc Estimated GFR POC Glucose 239 H Random Glucose Lactic Acid Lactic Acid F/U @ 2Hr 4.2 H* Lactic Acid F/U @ 4Hr Calcium Phosphorus Magnesium Total Bilirubin Direct Bilirubin AST ALT Alkaline Phosphatase Troponin I High Sens 21.2 H D B-Natriuretic Peptide Total Protein Albumin Lipase TSH Urine Color Yellow Urine Appearance Clear Urine pH 7.0 Ur Specific [place] 1.010 Urine Protein Negative Urine Glucose (UA) Negative Urine Ketones Negative Urine Blood Trace H Urine Nitrite Negative Ur Leukocyte Esterase Negative Urine RBC 3-5 H Urine WBC 0-5 Ur Squamous Epith Cells 0-2 Urine Bacteria None Seen Hyaline Casts 0-2 08/30/23 08/30/23 08/30/23 19:02 19:02 19:02 WBC 16.4 H RBC 4.70 Hgb 12.7 Hct 38.9 MCV 82.8 MCH 27.0 MCHC 32.6 RDW 15.6 Plt Count 293 MPV 9.7 Immature Gran % (Auto) 1.2 H Neut % (Auto) 95.2 H Lymph % (Auto) 1.6 L [place] % (Auto) 1.5 L Eos % (Auto) 0.1 Baso % (Auto) 0.4 Lymph # (Auto) 0.3 L [place] # (Auto) 0.3 Eos # (Auto) 0.0 Baso # (Auto) 0.1 Abs Immat Gran (auto) 0.19 H Absolute Neuts (auto) 15.6 H Absolute Nucleated RBC 0.000 Nucleated RBC % (auto) 0.0 VBG pH VBG pCO2 VBG pO2 VBG HCO3 VBG O2 Saturation VBG Base Excess Sodium 138 Potassium 4.7 D Chloride 99 Carbon Dioxide 26 Anion Gap 18 BUN 25 H Creatinine 1.13 Estim Creat Clear Calc 36.3 Estimated GFR 46 POC Glucose Random Glucose 362 H* Lactic Acid Lactic Acid F/U @ 2Hr Lactic Acid F/U @ 4Hr 4.0 H* Calcium 9.5 Phosphorus 4.5 Cancelled Magnesium 1.9 Cancelled Total Bilirubin Direct Bilirubin AST ALT Alkaline Phosphatase Troponin I High Sens B-Natriuretic Peptide Total Protein Albumin Lipase TSH 2.03 Urine Color Urine Appearance Urine pH Ur Specific [place] Urine Protein Urine Glucose (UA) Urine Ketones Urine Blood Urine Nitrite Ur Leukocyte Esterase Urine RBC Urine WBC Ur Squamous Epith Cells Urine Bacteria Hyaline Casts 08/30/23 08/30/23 08/31/23 19:02 21:42 04:48 WBC 12.6 H RBC 4.54 Hgb 12.1 Hct 36.6 L MCV 80.6 MCH 26.7 L MCHC 33.1 RDW 15.8 Plt Count 275 MPV 9.9 Immature Gran % (Auto) 0.6 H Neut % (Auto) 87.3 H Lymph % (Auto) 6.1 L [place] % (Auto) 5.7 Eos % (Auto) 0.1 Baso % (Auto) 0.2 Lymph # (Auto) 0.8 L [place] # (Auto) 0.7 Eos # (Auto) 0.0 Baso # (Auto) 0.0 Abs Immat Gran (auto) 0.07 H Absolute Neuts (auto) 11.1 H Absolute Nucleated RBC 0.000 Nucleated RBC % (auto) 0.0 VBG pH VBG pCO2 VBG pO2 VBG HCO3 VBG O2 Saturation VBG Base Excess Sodium 140 Potassium 3.9 Chloride 101 Carbon Dioxide 26 Anion Gap 17 BUN 30 H Creatinine 1.05 Estim Creat Clear Calc 39.0 Estimated GFR 50 POC Glucose 307 H Random Glucose 194 H Lactic Acid Lactic Acid F/U @ 2Hr Lactic Acid F/U @ 4Hr Calcium 9.6 Phosphorus 3.3 Magnesium 2.0 Total Bilirubin Direct Bilirubin AST ALT Alkaline Phosphatase Troponin I High Sens B-Natriuretic Peptide Total Protein Albumin Lipase TSH Cancelled Urine Color Urine Appearance Urine pH Ur Specific [place] Urine Protein Urine Glucose (UA) Urine Ketones Urine Blood Urine Nitrite Ur Leukocyte Esterase Urine RBC Urine WBC Ur Squamous Epith Cells Urine Bacteria Hyaline Casts 08/31/23 08/31/23 04:51 07:22 WBC RBC Hgb Hct MCV MCH MCHC RDW Plt Count MPV Immature Gran % (Auto) Neut % (Auto) Lymph % (Auto) [place] % (Auto) Eos % (Auto) Baso % (Auto) Lymph # (Auto) [place] # (Auto) Eos # (Auto) Baso # (Auto) Abs Immat Gran (auto) Absolute Neuts (auto) Absolute Nucleated RBC Nucleated RBC % (auto) VBG pH 7.49 H VBG pCO2 36 VBG pO2 52 VBG HCO3 28 H VBG O2 Saturation 84.0 VBG Base Excess 5.0 Sodium Potassium Chloride Carbon Dioxide Anion Gap BUN Creatinine Estim Creat Clear Calc Estimated GFR POC Glucose 179 H Random Glucose Lactic Acid Lactic Acid F/U @ 2Hr Lactic Acid F/U @ 4Hr Calcium Phosphorus Magnesium Total Bilirubin Direct Bilirubin AST ALT Alkaline Phosphatase Troponin I High Sens B-Natriuretic Peptide Total Protein Albumin Lipase TSH Urine Color Urine Appearance Urine pH Ur Specific [place] Urine Protein Urine Glucose (UA) Urine Ketones Urine Blood Urine Nitrite Ur Leukocyte Esterase Urine RBC Urine WBC Ur Squamous Epith Cells Urine Bacteria Hyaline Casts Progress Note: A&P Assessment and plan (1) Acute hypoxemic respiratory failure: Status: Acute (2) Flash pulmonary edema: Status: Acute (3) Congestive heart failure: Status: Acute (4) Paroxysmal atrial fibrillation: Status: Acute Plan Patient is a 83 Y F with metabolic syndrome, c/b CHF, atrial fibrillation on apixaban, pulmonary hypertension, and prior flash pulmonary edema necessitating intubation, presenting initially on 08/29 w/ epigastric pain, though appeared to be clinically in flash pulmonary edema, given nitroglycerin paste, placed on BiPAP w/ persistent acute hypoxic respiratory failure N: no acute issues CV: hemodynamically stable; to follow-up serial troponins, echocardiogram; hypertension, home amlodipine, losartan when appropriate; CHF, avoid metoprolol in acute setting; atrial fibrillation, home apixaban when PO R: acute hypoxic respiratory failure, thought to be d/t flash pulmonary edema, nitro gtt, BiPAP, wean as tolerated GI: NPO while on BiPAP : no acute issues; continue diuresis as needed; to monitor electrolytes H: no acute issues; chemical DVT prophylaxis; atrial fibrillation, home apixaban when PO ID: no stigmata of infection; to monitor E: to monitor hypo-/hyper-glycemia S: updates provided to daughter and son at bedside Quality Stroke Does the patient have a stroke diagnosis?: No VTE Prior VTE?: No VTE Risk Level:: Medical - moderate - high VTE Device Contraindication: N/A - Device Ordered VTE Drug Contraindication: N/A - Med Ordered
--- NOTE | 2023-08-31 09:21 | MHC.CM.PN ---
IMM DELIVERED CM MET WITH PT AT BEDSIDE IN ICU. PT LIVES ALONE, SPOUSE RECENTLY . PT HAS GOOD FAMILY SUPPORT AND HAS [employer] [employer] DELIVERED. PT USES [employer] FOR [employer] MOB[employer]. +HCP AT HOME, DECLINES TO DO A NEW ONE, WILL HAVE DAUGHTER BRING IN COPY. PC DR. JACKSON AT [facility] [place]. DP: HOME, PT DECLINES HOME SERVICES AT THIS TIME. FAMILY WILL TRANSPORT HOME. CM WILL CONTINUE TO FOLLOW FOR ANY CHANGE TO DC PLAN/NEEDS.
[2023-08-31] MEDS: Furosemide 20 MG/2 ML VIAL IVPUSH (09:46)
--- NOTE | 2023-08-31 10:24 | P.CONCA_ITS ---
History of Present Illness History of Present Illness Date of Service: 08/31/23 Chief complaint: Acute Hypoxic Respiratory Failure Narrative: This is a cardiology consultation regarding acute pulmonary edema. Patient with many comorbidities and is generally seen in the clinic. It seems that she basically had some abdominal pain and that led to a CT scan. In that context, it appears that she had to lie supine for the CT and in that context went into flash pulmonary edema. Then urgently transported to the ER, received nitroglycerin, diuretics, BiPAP and then eventually admitted to the ICU. Currently, she states that she is feeling better. According to patient, she does not lie flat at home generally lies on her sides only. Hence certainly possible that lying on the back for the CT scan could have led to the acute pulmonary edema. Any case, seems improved at this time. Review of Systems 2 Review of Systems: Yes all other systems are reviewed and are negative Constitutional: Constitutional: Reports as per HPI and Reports no additional constitutional complaints Eyes: Eyes: Reports as per HPI and Denies no additional eye complaints ENT: Denies system reviewed and no additional complaints, except as documented and Reports as per HPI Cardiovascular: Cardiovascular: Reports as per HPI, Reports no additional cardiovascular complaints, Denies acrocyanosis, Denies cool extremities, Denies chest pain, Denies leg edema, Denies lightheadedness, Denies palpitations and Denies dyspnea Respiratory: Respiratory: Reports as per HPI, Denies no additional respiratory complaints and Denies dyspnea Gastrointestinal: Gastrointestinal: Reports as per HPI and Denies no additional gastrointestinal complaints Genitourinary: Genitourinary: Reports as per HPI Musculoskeletal: Musculoskeletal: Reports no additional musculoskeletal complaints and Reports as per HPI Integumentary/Breasts: Skin/Breast: Reports system reviewed and no additional complaints, except as docu Neurologic: Reports system reviewed and no additional complaints, except as documented and Reports as per HPI Psychiatric: Psychiatric: Reports no additional psychiatric complaints and Reports as per HPI Endocrine: Endocrine: Reports no additional endocrine complaints, Reports as per HPI and Denies palpitations Hematologic/Lymphatic: Hematologic/Lymphatic: Reports no additional hematologic/lymphatic complaints and Reports as per HPI Allergic/Immunologic: Allergic/Immunologic: Reports no additional allergic/immunologic complaints and Reports as per HPI [facility] Past Medical History Medical History (Updated 08/31/23 @ 10:29 by Geoff Callahan MD) Nephrolithiasis Urinary tract infection Paroxysmal atrial fibrillation Cholelithiasis Renal cyst Pulmonary hypertension Non-rheumatic mitral regurgitation Permanent atrial fibrillation Right nephrolithiasis Compression deformity of vertebra Early satiety Microcytic anemia Heartburn Atrophic vaginitis Osteopenia Osteoarthritis of knees, bilateral Essential hypertension Dyslipidemia Type 2 diabetes mellitus with kidney complication, 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 Son No problems noted. Daughter No problems noted. Surgical History Surgical History History of esophagogastroduodenoscopy (EGD) (~10/2022) History of lumbar discectomy History of lobectomy of lung History of hysterectomy History of total right knee replacement (TKR) Lumbar radiculopathy Social History Social History Household Members: None Housing: House Do you presently have visiting nurse or other home services: No Alcohol intake: never Patient Tobacco Use Status: Never used Tobacco e-Cigarette/Vaping Use: Never Used service: No Current occupational status: retired Cognitive needs: No Hearing needs: Yes Vision needs: Yes Meds Allergies Allergy/AdvReac Type Severity Reaction Status Date / Time adhesive tape [Adhesive Tape] Allergy Mild CONTACT Verified 08/30/23 09:47 DERMATITIS cephalexin [CEPHALEXIN] Allergy Unknown SWELLING Verified 08/30/23 09:47 latex [Latex] Allergy Unknown RASH Verified 08/30/23 09:47 Biaxin AdvReac Intermediate plapitation Verified 08/30/23 09:47 s bacitracin [From Cortisporin] AdvReac Mild EYE Verified 08/30/23 09:47 IRRITATION hydrocortisone AdvReac Mild EYE Verified 08/30/23 09:47 [From Cortisporin] IRRITATION neomycin [From Cortisporin] AdvReac Mild EYE Verified 08/30/23 09:47 IRRITATION flecainide [From Tambocor] AdvReac Unknown HEART Verified 08/30/23 09:47 RACING lisinopril [LISINOPRIL] AdvReac Unknown cough, Verified 08/30/23 09:47 nausea Sulfa (Sulfonamide AdvReac Unknown PALPITATION Verified 08/30/23 09:47 Antibiotics) S [SULFA(SULFONAMIDE ANTIBIOTICS)] Active Medications: Current Medications Apixaban (Apixaban 5 Mg Tablet) 5 mg PO BID [facility] Furosemide (Furosemide 20 Mg/2 Ml Vial) 20 mg IVPUSH BID@0900,1800 [facility]; Protocol Last Admin: 08/31/23 09:46 Dose: 20 mg Glucose (Glucose Gel 15 Gm Gel..Gram.) 15 gm PO Q15M PRN; Protocol PRN Reason: per Hypoglycemia Standing Ord. Dextrose (D10) 250 mls @ 750 mls/hr IV Q15M PRN; Protocol PRN Reason: per Hypoglycemia Standing Ord. Insulin Glargine (Insulin Glargine,Hum.Rec.Anlog 100 Unit/Ml 10 Ml Vial) 20 unit SUBCUT BEDTIME [facility] Last Admin: 08/30/23 21:08 Dose: 20 unit Insulin Human Lispro (Insulin Lispro 100 Unit/Ml 3 Ml Vial) 0 unit SUBCUT QIDACHS [facility]; Protocol Last Admin: 08/31/23 09:38 Dose: Not Given Home Medications ?Medication ?Instructions ?Recorded ?Confirmed ?Last Taken ?Type estradiol 0.01% (0.1 mg/gram) 1 g vaginal MOWEFR 12/19/21 08/30/23 08/30/23 History vaginal cream (Estrace) coenzyme Q10 100 mg capsule 100 mg PO DAILY 04/28/22 08/30/23 08/30/23 History (CoQ-10) insulin lispro 200 unit/mL (3 mL) 2 - 12 unit subcut DAILY 06/20/23 08/30/23 08/30/23 History subcutaneous pen (Humalog KwikPen U-200 Insulin) docusate sodium 100 mg capsule 100 mg PO DAILY PRN Constipation 08/30/23 08/30/23 08/30/23 History (Colace) gabapentin 100 mg capsule 100 mg PO BID PRN Pain 08/30/23 08/30/23 Unknown History loratadine 10 mg tablet (Wal-itin) 10 mg PO DAILY 08/30/23 08/30/23 08/30/23 History pantoprazole 40 mg tablet,delayed 40 mg PO DAILY@0630 08/30/23 08/30/23 08/30/23 History release vit C 250 mg-vit E 90 mg-zinc 40 1 tab PO BID 08/30/23 08/30/23 08/30/23 History mg-copper 1 [id number] capsule (PreserVision AREDS-2) Physical Exam 2 Vital Signs: Vital Signs: Last Vital Signs Temp 97.7 F 08/31/23 08:00 Pulse 90 08/31/23 10:00 Resp 20 08/31/23 10:00 BP 108/62 08/31/23 10:00 Pulse Ox 90 L 08/31/23 10:00 O2 Del Method Nasal Cannula 08/31/23 10:00 O2 Flow Rate 4 08/31/23 10:00 FiO2 75 08/31/23 02:00 BMI result Body Mass Index 28.8 Const: General: comfortable and no acute distress O rientation/consciousness: patient oriented x3 HEENT: Other: Unremarkable Head: Yes normal to inspection Neck: Neck: Yes normal visual inspection Chest: Chest palpation & inspection: normal inspection of the chest Resp: Auscultation: crackles Cardio: Palpation: normal PMI Heart sounds: S1 normal heart sound present, S2 normal heart sound present, no gallops, no murmurs and no rubs GI: Palpation (GI): Soft to palpation Back/Spine/Pelvis: Other: unremarkable Skin: General skin exam: no rashes or lesions noted Neuro: General: patient oriented x3 Extrem: General: Yes normal to inspection Psych: Mental Status: mental status grossly normal Objective Labs and Meds 08/31/23 04:48 08/31/23 04:48 Lab results: Laboratory Results - last 24 hr 08/30/23 08/30/23 08/30/23 09:38 10:09 10:10 WBC RBC Hgb Hct MCV MCH MCHC RDW Plt Count MPV Immature Gran % (Auto) Neut % (Auto) Lymph % (Auto) [place] % (Auto) Eos % (Auto) Baso % (Auto) Lymph # (Auto) [place] # (Auto) Eos # (Auto) Baso # (Auto) Abs Immat Gran (auto) Absolute Neuts (auto) Absolute Nucleated RBC Nucleated RBC % (auto) VBG pH VBG pCO2 VBG pO2 VBG HCO3 VBG O2 Saturation VBG Base Excess Sodium 137 Potassium 3.9 Chloride 99 Carbon Dioxide 29 Anion Gap 13 BUN 22 H Creatinine 0.94 Estim Creat Clear Calc 42.7 Estimated GFR 57 POC Glucose 170 H Random Glucose 189 H Lactic Acid 2.8 H* Lactic Acid F/U @ 2Hr Lactic Acid F/U @ 4Hr Calcium 9.8 Phosphorus Magnesium 2.2 Total Bilirubin 0.5 Direct Bilirubin 0.2 AST 13 ALT 10 Alkaline Phosphatase 61 Troponin I High Sens 10.8 B-Natriuretic Peptide 69 Total Protein 8.1 H Albumin 4.3 Lipase 46 TSH Urine Color Urine Appearance Urine pH Ur Specific [place] Urine Protein Urine Glucose (UA) Urine Ketones Urine Blood Urine Nitrite Ur Leukocyte Esterase Urine RBC Urine WBC Ur Squamous Epith Cells Urine Bacteria Hyaline Casts 08/30/23 08/30/23 08/30/23 10:41 14:10 14:19 WBC RBC Hgb Hct MCV MCH MCHC RDW Plt Count MPV Immature Gran % (Auto) Neut % (Auto) Lymph % (Auto) [place] % (Auto) Eos % (Auto) Baso % (Auto) Lymph # (Auto) [place] # (Auto) Eos # (Auto) Baso # (Auto) Abs Immat Gran (auto) Absolute Neuts (auto) Absolute Nucleated RBC Nucleated RBC % (auto) VBG pH VBG pCO2 VBG pO2 VBG HCO3 VBG O2 Saturation VBG Base Excess Sodium Potassium Chloride Carbon Dioxide Anion Gap BUN Creatinine Estim Creat Clear Calc Estimated GFR POC Glucose 239 H Random Glucose Lactic Acid Lactic Acid F/U @ 2Hr 4.2 H* Lactic Acid F/U @ 4Hr Calcium Phosphorus Magnesium Total Bilirubin Direct Bilirubin AST ALT Alkaline Phosphatase Troponin I High Sens 21.2 H D B-Natriuretic Peptide Total Protein Albumin Lipase TSH Urine Color Yellow Urine Appearance Clear Urine pH 7.0 Ur Specific [place] 1.010 Urine Protein Negative Urine Glucose (UA) Negative Urine Ketones Negative Urine Blood Trace H Urine Nitrite Negative Ur Leukocyte Esterase Negative Urine RBC 3-5 H Urine WBC 0-5 Ur Squamous Epith Cells 0-2 Urine Bacteria None Seen Hyaline Casts 0-2 08/30/23 08/30/23 08/30/23 19:02 19:02 19:02 WBC 16.4 H RBC 4.70 Hgb 12.7 Hct 38.9 MCV 82.8 MCH 27.0 MCHC 32.6 RDW 15.6 Plt Count 293 MPV 9.7 Immature Gran % (Auto) 1.2 H Neut % (Auto) 95.2 H Lymph % (Auto) 1.6 L [place] % (Auto) 1.5 L Eos % (Auto) 0.1 Baso % (Auto) 0.4 Lymph # (Auto) 0.3 L [place] # (Auto) 0.3 Eos # (Auto) 0.0 Baso # (Auto) 0.1 Abs Immat Gran (auto) 0.19 H Absolute Neuts (auto) 15.6 H Absolute Nucleated RBC 0.000 Nucleated RBC % (auto) 0.0 VBG pH VBG pCO2 VBG pO2 VBG HCO3 VBG O2 Saturation VBG Base Excess Sodium 138 Potassium 4.7 D Chloride 99 Carbon Dioxide 26 Anion Gap 18 BUN 25 H Creatinine 1.13 Estim Creat Clear Calc 36.3 Estimated GFR 46 POC Glucose Random Glucose 362 H* Lactic Acid Lactic Acid F/U @ 2Hr Lactic Acid F/U @ 4Hr 4.0 H* Calcium 9.5 Phosphorus 4.5 Cancelled Magnesium 1.9 Cancelled Total Bilirubin Direct Bilirubin AST ALT Alkaline Phosphatase Troponin I High Sens B-Natriuretic Peptide Total Protein Albumin Lipase TSH 2.03 Urine Color Urine Appearance Urine pH Ur Specific [place] Urine Protein Urine Glucose (UA) Urine Ketones Urine Blood Urine Nitrite Ur Leukocyte Esterase Urine RBC Urine WBC Ur Squamous Epith Cells Urine Bacteria Hyaline Casts 08/30/23 08/30/23 08/31/23 19:02 21:42 04:48 WBC 12.6 H RBC 4.54 Hgb 12.1 Hct 36.6 L MCV 80.6 MCH 26.7 L MCHC 33.1 RDW 15.8 Plt Count 275 MPV 9.9 Immature Gran % (Auto) 0.6 H Neut % (Auto) 87.3 H Lymph % (Auto) 6.1 L [place] % (Auto) 5.7 Eos % (Auto) 0.1 Baso % (Auto) 0.2 Lymph # (Auto) 0.8 L [place] # (Auto) 0.7 Eos # (Auto) 0.0 Baso # (Auto) 0.0 Abs Immat Gran (auto) 0.07 H Absolute Neuts (auto) 11.1 H Absolute Nucleated RBC 0.000 Nucleated RBC % (auto) 0.0 VBG pH VBG pCO2 VBG pO2 VBG HCO3 VBG O2 Saturation VBG Base Excess Sodium 140 Potassium 3.9 Chloride 101 Carbon Dioxide 26 Anion Gap 17 BUN 30 H Creatinine 1.05 Estim Creat Clear Calc 39.0 Estimated GFR 50 POC Glucose 307 H Random Glucose 194 H Lactic Acid Lactic Acid F/U @ 2Hr Lactic Acid F/U @ 4Hr Calcium 9.6 Phosphorus 3.3 Magnesium 2.0 Total Bilirubin Direct Bilirubin AST ALT Alkaline Phosphatase Troponin I High Sens B-Natriuretic Peptide Total Protein Albumin Lipase TSH Cancelled Urine Color Urine Appearance Urine pH Ur Specific [place] Urine Protein Urine Glucose (UA) Urine Ketones Urine Blood Urine Nitrite Ur Leukocyte Esterase Urine RBC Urine WBC Ur Squamous Epith Cells Urine Bacteria Hyaline Casts 08/31/23 08/31/23 04:51 07:22 WBC RBC Hgb Hct MCV MCH MCHC RDW Plt Count MPV Immature Gran % (Auto) Neut % (Auto) Lymph % (Auto) [place] % (Auto) Eos % (Auto) Baso % (Auto) Lymph # (Auto) [place] # (Auto) Eos # (Auto) Baso # (Auto) Abs Immat Gran (auto) Absolute Neuts (auto) Absolute Nucleated RBC Nucleated RBC % (auto) VBG pH 7.49 H VBG pCO2 36 VBG pO2 52 VBG HCO3 28 H VBG O2 Saturation 84.0 VBG Base Excess 5.0 Sodium Potassium Chloride Carbon Dioxide Anion Gap BUN Creatinine Estim Creat Clear Calc Estimated GFR POC Glucose 179 H Random Glucose Lactic Acid Lactic Acid F/U @ 2Hr Lactic Acid F/U @ 4Hr Calcium Phosphorus Magnesium Total Bilirubin Direct Bilirubin AST ALT Alkaline Phosphatase Troponin I High Sens B-Natriuretic Peptide Total Protein Albumin Lipase TSH Urine Color Urine Appearance Urine pH Ur Specific [place] Urine Protein Urine Glucose (UA) Urine Ketones Urine Blood Urine Nitrite Ur Leukocyte Esterase Urine RBC Urine WBC Ur Squamous Epith Cells Urine Bacteria Hyaline Casts ECG Interpretation: EKG shows underlying artifact. Otherwise, atrial fibrillation with either PVC or aberrant conduction and left bundle-branch pattern. Imaging Radiologist's impression: Impressions Chest X-Ray 08/30/23 10:25 IMPRESSION: 1. Stable blunting right costophrenic recess representing trace pleural effusion versus scarring. 2. Surgical material right mid and lower lung field. 3. Chronic interstitial lung markings. 4. Bibasilar atelectasis, left greater than right may reflect atelectasis/scarring, though evolving patches/inflammatory etiology not excluded. Abdomen/Pelvis CT 08/30/23 13:14 IMPRESSION: 1. No acute process of the abdomen or pelvis identified. 2. Metallic radiodensity within the stomach of unclear etiology. 3. Cholelithiasis without acute cholecystitis. 4. Bilateral hypodense renal foci demonstrating fluid attenuation, statistically representing cysts, not requiring follow-up. 5. Right-sided nephrolithiasis versus vascular calcification measuring 1.1 cm without hydronephrosis. 6. Small hiatal hernia. 7. Colonic diverticulosis without acute diverticulitis. 8. Osteopenia. Redemonstrated compression deformity of T11 and to lesser extent T12. Head CT 08/30/23 13:14 IMPRESSION: No acute intracranial abnormality. Mild microvascular ischemic change. Chest X-Ray 08/30/23 13:49 IMPRESSION: Marked interval progression of bilateral alveolar infiltrates, most notable on the left compared to the right. This could be early presentation of ARDS versus interstitial pulmonary edema. Assessment and Plan (1) Acute hypoxemic respiratory failure: Status: Acute (2) Flash pulmonary edema: Status: Acute (3) Permanent atrial fibrillation: Status: Acute Plan From my last notes, essentially history of cardiomyopathy, LVEF in the 40s, moderate mitral regurgitation, [id number] tricuspid regurgitation and moderate pulmonary hypertension. Longstanding atrial fibrillation. Acute pulmonary edema likely in the setting of going supine for the CT scan. Troponins are borderline high which could be from the acute situation. Do not think there is ACS. BNP within normal limits but again may not go up in an acute pulmonary edema type setting. Overall, she seems improved but still slightly hypoxic. Agree with continuing diuretics. Supplemental oxygen and supportive care. When ready, ambulate and see how she does. We will follow up with you. Procedures Date of Service Date of Service: 08/31/23
[2023-08-31 11:47] LABS: Glucose, Whole Blood 64 mg/dL (60-115)
[2023-08-31 12:23] LABS: Glucose, Whole Blood 268 mg/dL (60-115)
--- NOTE | 2023-08-31 12:55 | P.CDIM_ITS ---
PROVIDER RESPONSE TEXT: To clarify, the appropriate diagnosis supported by the clinical indicators: Diabetes mellitus with hyperglycemia: Resolved QUERY TEXT: PHYSICIAN'S DOCUMENTATION REQUEST Date of Query: 08/31/2023 09:27 AM EDT Patient Name: Aminah Kraft Admit Date: 08/30/2023 Dear Rosario Cox MD, A review of the medical record indicates additional documentation may be needed. Please review below and update the documentation accordingly. Clinical Indicators: POC glucose 307 H 179 H Insulin DM Please clarify if there is a diagnosis that correlates with these lab findings: Diabetes mellitus with hyperglycemia resolved, possible, suspected etc. Other (explain) Clinically unable to determine (explain) Thank you, Marietta Jewell, CCS, CDIS Use of terms such as suspected, likely, concern for, or probable (associated with a specific diagnosi s that is being evaluated, monitored, or treated as if it exists) are acceptable and can be coded in the inpatient se tting, when documented at the time of discharge. Please use your independent medical judgment in providing your response. THIS QUERY IS PART OF THE PERMANENT MEDICAL RECORD
[2023-08-31] MEDS: fentaNYL citrate/PF 100 MCG/2 ML VIAL 25 MCG IVPUSH (13:34)
[2023-08-31] MEDS: Nitroglycerin/D5W 100 MG/250 ML INFUS..BTL IVCONT (13:38)
[2023-08-31 16:22] LABS: Glucose, Whole Blood 280 mg/dL (60-115)
[2023-08-31] MEDS: Insulin Lispro 100 UNIT/ML 3 ML VIAL SUBCUT ×2 (17:41→21:21)
[2023-08-31 20:59] LABS: Glucose, Whole Blood 279 mg/dL (60-115)
[2023-08-31] MEDS: Apixaban 5 MG TABLET PO (21:19)
[2023-08-31] MEDS: Insulin Glargine,Hum.rec.anlog 100 UNIT/ML 10 ML VIAL 20 UNIT SUBCUT (21:22)
[2023-09-01] VITALS (28 sets, daily range): BP systolic 90–128; BP diastolic 40–76; PULSE 62–120; RESP 16–33; TEMP 36.6–37.4; O2SAT 89–96
[2023-09-01 06:00] LABS: MANUAL DIFF FLAG NO
[2023-09-01 06:01] LABS: Basophils Percent Auto 0.2 % (0-2); Eosinophils Percent Auto 0.1 % (0-4); Hematocrit 33.7 % (37.0-47.0); Hemoglobin 11.2 g/dl (12.0-16.0); Imm Gran Abs Auto 0.09 X10*3/uL (0.00-0.03); Imm Gran Pct Auto 0.5 % (0.0-0.4); Lymphocytes Absolute Auto 1.3 X10*3/uL (1.2-4.9); Lymphocytes Percent Auto 7.7 % (20-40); Mean Corpuscular HGB Conc 33.2 g/dl (31.0-35.0); Mean Corpuscular Hemoglobin 26.7 pg (27.0-33.0); Mean Corpuscular Volume 80.2 fL (80.0-98.0); Mean Platelet Volume 9.9 fL (9.4-12.3); Monocytes Absolute Auto 1.4 X10*3/uL (0.1-1.2); Monocytes Percent Auto 7.8 % (2-11); Neutrophils Absolute Auto 14.5 x10*3/uL (2.0-8.3); Neutrophils Percent Auto 83.7 % (45-73); Platelet Count 259 X10*3/uL (160-400); Red Cell Distribution Width 15.9 % (11.0-16.0); White Blood Count 17.4 X10*3/uL (4.8-10.8)
[2023-09-01 06:20] LABS: Anion Gap 17 (12-20); Blood Urea Nitrogen 32 mg/dL (9-16); Calcium 9.3 mg/dL (8.4-10.2); Carbon Dioxide 28 mmol/L (22-29); Chloride 102 mmol/L (96-108); Creatinine Clr Calc Pharmacy 50.7; Estimated Glomerular Filt Rate > 60; Glucose Random 103 mg/dL (60-115); Magnesium 2.1 mg/dL (1.6-2.6); Phosphorus 3.2 mg/dL (2.7-4.5); Potassium 3.7 mmol/L (3.3-5.1); Sodium 143 mmol/L (135-145)
[2023-09-01 07:29] LABS: Glucose, Whole Blood 98 mg/dL (60-115)
--- NOTE | 2023-09-01 08:20 | PM.CCPN ---
Subjective Subjective Date of Service: 09/01/23 Interval History: recurrent flash pulmonary edema 08/30 early afternoon, placed on BiPAP, nitro gtt, with rapid improvement; no overnight events Critical Care Time (minutes): 60 Physical Exam Vital Signs: Vital Signs: Last Vital Signs Temp 97.9 F 09/01/23 05:00 Pulse 97 09/01/23 08:00 Resp 25 H 09/01/23 08:00 BP 109/59 L 09/01/23 08:00 Pulse Ox 91 L 09/01/23 08:00 O2 Del Method Nasal Cannula 09/01/23 08:00 O2 Flow Rate 4 09/01/23 08:00 FiO2 75 08/31/23 02:00 BMI result Body Mass Index 28.8 Const: General: comfortable, no acute distress, well developed, alert, awake and Physically active Orientation/consciousness: patient oriented x3 HEENT: Head: Yes normal to inspection, Yes normocephalic and Yes atraumatic Eyes: General: appearance normal, both eyes and all related structures Neck: Neck: Yes normal visual inspection, Yes full ROM, Yes trachea midline and Yes supple Chest: Chest palpation & inspection: normal inspection of the chest Resp: Other: no significant rales, rhonchi, wheezing Effort & Inspection: normal respiratory effort GI: Inspection: Yes normal to inspection, No Abdominal wall edema and No distended Palpation (GI): Soft to palpation, not firm, nontender, no guarding and not rigid : External Female Exam: normal external appearance Skin: General skin exam: no rashes or lesions noted Neuro: General: patient oriented x3, tone normal, moves all extremities and no focal motor deficits Extrem: General: Yes normal to inspection, Yes full ROM, Yes capillary refill normal and Yes no clubbing, cyanosis or edema Psych: Other: appreciable anxiety, redirectable with significant verbal prompting Objective Data Labs 09/01/23 05:24 09/01/23 05:24 Labs: Laboratory Results - last 24 hr 08/31/23 08/31/23 08/31/23 11:44 12:19 16:19 WBC RBC Hgb Hct MCV MCH MCHC RDW Plt Count MPV Immature Gran % (Auto) Neut % (Auto) Lymph % (Auto) [place] % (Auto) Eos % (Auto) Baso % (Auto) Lymph # (Auto) [place] # (Auto) Eos # (Auto) Baso # (Auto) Abs Immat Gran (auto) Absolute Neuts (auto) Absolute Nucleated RBC Nucleated RBC % (auto) Sodium Potassium Chloride Carbon Dioxide Anion Gap BUN Creatinine Estim Creat Clear Calc Estimated GFR POC Glucose 64 268 H 280 H Random Glucose Calcium Phosphorus Magnesium 08/31/23 09/01/23 09/01/23 20:56 05:24 07:25 WBC 17.4 H RBC 4.20 Hgb 11.2 L Hct 33.7 L MCV 80.2 MCH 26.7 L MCHC 33.2 RDW 15.9 Plt Count 259 MPV 9.9 Immature Gran % (Auto) 0.5 H Neut % (Auto) 83.7 H Lymph % (Auto) 7.7 L [place] % (Auto) 7.8 Eos % (Auto) 0.1 Baso % (Auto) 0.2 Lymph # (Auto) 1.3 [place] # (Auto) 1.4 H Eos # (Auto) 0.0 Baso # (Auto) 0.0 Abs Immat Gran (auto) 0.09 H Absolute Neuts (auto) 14.5 H Absolute Nucleated RBC 0.000 Nucleated RBC % (auto) 0.0 Sodium 143 Potassium 3.7 Chloride 102 Carbon Dioxide 28 Anion Gap 17 BUN 32 H Creatinine 0.81 Estim Creat Clear Calc 50.7 Estimated GFR > 60 POC Glucose 279 H 98 Random Glucose 103 Calcium 9.3 Phosphorus 3.2 Magnesium 2.1 Microbiology Microbiology Results: Microbiology 08/30/23 10:37 Blood - Venous Blood Culture - Preliminary No growth after 24 hours. 08/30/23 10:09 Blood - Venous Blood Culture - Preliminary No growth after 24 hours. Progress Note: A&P Assessment and plan (1) Acute hypoxemic respiratory failure: Status: Acute (2) Flash pulmonary edema: Status: Acute (3) Congestive heart failure: Status: Acute (4) Permanent atrial fibrillation: Status: Acute (5) Hypertension: Status: Acute (6) Diabetes mellitus: Status: Acute Plan Patient is a 83 Y F with metabolic syndrome, c/b CHF, atrial fibrillation on apixaban, pulmonary hypertension, and prior flash pulmonary edema necessitating intubation, presenting initially on 08/29 w/ epigastric pain, though appeared to be clinically in flash pulmonary edema, admitted ICU for BiPAP N: no acute issues CV: hemodynamically stable; appreciable any cardiology recommendations; hypertension, home amlodipine, losartan when appropriate; CHF, avoid metoprolol in acute setting; atrial fibrillation, home apixaban when PO R: acute hypoxic respiratory failure, thought to be d/t flash pulmonary edema, w/ recurrent episode in ICU; to monitor closely GI: NPO while on BiPAP, otherwise cardiac diet : no acute issues; continue diuresis as needed; to monitor electrolytes H: no acute issues; chemical DVT prophylaxis; atrial fibrillation, home apixaban when PO ID: leukocytosis, though no stigmata of infection; to monitor E: to monitor hypo-/hyper-glycemia closely S: daily updates provided to daughter/son Quality Stroke Does the patient have a stroke diagnosis?: No VTE Prior VTE?: No VTE Risk Level:: Medical - moderate - high VTE Device Contraindication: N/A - Device Ordered VTE Drug Contraindication: N/A - Med Ordered
[2023-09-01] MEDS: Pantoprazole Sodium 40 MG/10 ML VIAL IVPUSH (09:03)
[2023-09-01] MEDS: Apixaban 5 MG TABLET PO ×2 (09:03→21:21)
[2023-09-01] MEDS: Metoprolol Succinate ER 12.5 MG HALFTAB.ER.24H PO (09:03)
[2023-09-01] MEDS: hydroCHLOROthiazide 25 MG TABLET PO ×2 (09:04→21:21)
[2023-09-01] MEDS: Loratadine 10 MG TABLET PO (09:04)
[2023-09-01 11:32] LABS: Glucose, Whole Blood 330 mg/dL (60-115)
[2023-09-01] MEDS: Insulin Lispro 100 UNIT/ML 3 ML VIAL SUBCUT ×2 (11:34→21:21)
--- NOTE | 2023-09-01 13:56 | PM.PNCARD ---
Subjective Subjective Date of Service: 09/01/23 Interval history: Patient seen in her room in the ICU. Also discussed with son who has at the bedside. It appears that she had another episode of pulmonary edema as today and then once again placed on BiPAP/nitro drip. Then improved. Now she is better. On oxygen. Review of Systems Review of Systems Yes all other systems are reviewed and are negative Constitutional: Reports as per HPI and Reports no additional constitutional complaints Eyes: Reports as per HPI and Denies no additional eye complaints Denies system reviewed and no additional complaints, except as documented and Reports as per HPI Cardiovascular: Reports as per HPI, Reports no additional cardiovascular complaints, Denies acrocyanosis, Denies cool extremities, Denies chest pain, Denies leg edema, Denies lightheadedness, Denies palpitations and Denies dyspnea Respiratory: Reports as per HPI, Denies no additional respiratory complaints and Denies dyspnea Gastrointestinal: Reports as per HPI and Denies no additional gastrointestinal complaints Genitourinary: Reports as per HPI Musculoskeletal: Reports no additional musculoskeletal complaints and Reports as per HPI Skin/Breast: Reports system reviewed and no additional complaints, except as docu Reports system reviewed and no additional complaints, except as documented and Reports as per HPI Psychiatric: Reports no additional psychiatric complaints and Reports as per HPI Endocrine: Reports no additional endocrine complaints, Reports as per HPI and Denies palpitations Hematologic/Lymphatic: Reports no additional hematologic/lymphatic complaints and Reports as per HPI Allergic/Immunologic: Reports no additional allergic/immunologic complaints and Reports as per HPI Physical Exam Vital Signs: Last Vital Signs Temp 98.5 F 09/01/23 11:00 Pulse 94 09/01/23 12:00 Resp 33 H 09/01/23 12:00 BP 125/62 09/01/23 12:00 Pulse Ox 94 09/01/23 12:00 O2 Del Method Nasal Cannula 09/01/23 12:00 O2 Flow Rate 4 09/01/23 12:00 FiO2 75 08/31/23 02:00 BMI result Body Mass Index 28.8 Const General: comfortable and no acute distress Orientation/consciousness: patient oriented x3 HEENT Other: Unremarkable Head: Yes normal to inspection Neck Neck: Yes normal visual inspection Chest Chest palpation & inspection: normal inspection of the chest Resp Auscultation: crackles Cardio Palpation: normal PMI Heart sounds: S1 normal heart sound present, S2 normal heart sound present, no gallops, no murmurs and no rubs GI Palpation (GI): Soft to palpation Back/Spine/Pelvis Other: unremarkable Skin General skin exam: no rashes or lesions noted Neuro General: patient oriented x3 Extrem General: Yes normal to inspection Psych Mental Status: mental status grossly normal Objective Labs and Meds 09/01/23 05:24 09/01/23 05:24 Lab results: Laboratory Results - last 24 hr 08/31/23 08/31/23 09/01/23 16:19 20:56 05:24 WBC 17.4 H RBC 4.20 Hgb 11.2 L Hct 33.7 L MCV 80.2 MCH 26.7 L MCHC 33.2 RDW 15.9 Plt Count 259 MPV 9.9 Immature Gran % (Auto) 0.5 H Neut % (Auto) 83.7 H Lymph % (Auto) 7.7 L [place] % (Auto) 7.8 Eos % (Auto) 0.1 Baso % (Auto) 0.2 Lymph # (Auto) 1.3 [place] # (Auto) 1.4 H Eos # (Auto) 0.0 Baso # (Auto) 0.0 Abs Immat Gran (auto) 0.09 H Absolute Neuts (auto) 14.5 H Absolute Nucleated RBC 0.000 Nucleated RBC % (auto) 0.0 Sodium 143 Potassium 3.7 Chloride 102 Carbon Dioxide 28 Anion Gap 17 BUN 32 H Creatinine 0.81 Estim Creat Clear Calc 50.7 Estimated GFR > 60 POC Glucose 280 H 279 H Random Glucose 103 Calcium 9.3 Phosphorus 3.2 Magnesium 2.1 09/01/23 09/01/23 07:25 11:15 WBC RBC Hgb Hct MCV MCH MCHC RDW Plt Count MPV Immature Gran % (Auto) Neut % (Auto) Lymph % (Auto) [place] % (Auto) Eos % (Auto) Baso % (Auto) Lymph # (Auto) [place] # (Auto) Eos # (Auto) Baso # (Auto) Abs Immat Gran (auto) Absolute Neuts (auto) Absolute Nucleated RBC Nucleated RBC % (auto) Sodium Potassium Chloride Carbon Dioxide Anion Gap BUN Creatinine Estim Creat Clear Calc Estimated GFR POC Glucose 98 330 H Random Glucose Calcium Phosphorus Magnesium Imaging Radiologist's impression: Impressions Chest X-Ray 09/01/23 08:33 IMPRESSION: 1. Slightly decreased diffuse interstitial and patchy airspace opacities compared to most recent prior. 2. Stable small right pleural effusion. Progress Note: A&P Assessment and plan (1) Acute hypoxemic respiratory failure: Status: Acute (2) Flash pulmonary edema: Status: Acute (3) Permanent atrial fibrillation: Status: Acute Plan Recurring episodes of acute pulmonary edema once during CT scan and another time in the ICU. Prior episode few months back that required transferred to [facility]. Echocardiogram with cardiomyopathy with an LVEF of 35%; lower than before. Moderate aortic stenosis. [id number] mitral regurgitation. Blood pressure seems okay. Her atrial fibrillation itself is longstanding. Overall, no clear contributing factors not clear why she keeps going back into pulmonary edema. Keep on regular diuretics. Need to consider a diagnostic catheterization but at her age with frailty may also go the conservative route. I did bring this up today during my conversation with patient as well as son. Will follow-up tomorrow. Time Spent With Patient Time: Total time managing care of this patient today ____ minutes. Progress Note: Quality Stroke Does the patient have a stroke diagnosis?: No Procedures Date of Service Date of Service: 09/01/23
--- NOTE | 2023-09-01 15:50 | ECG_ITS ---
Test Reason : epigastric pain/ pressure radiating to the back Blood Pressure : / mmHG Vent. Rate : 094 BPM Atrial Rate : 000 BPM P-R Int : 000 ms QRS Dur : 138 ms QT Int : 366 ms P-R-T Axes : 000 -65 111 degrees QTc Int : 457 ms Atrial fibrillation Left axis deviation Left bundle branch block Abnormal ECG No previous ECGs available Referred By: Rosario Cox Electronically Signed By:DANIKA ULLOA
[2023-09-01 16:10] LABS: Glucose, Whole Blood 115 mg/dL (60-115)
[2023-09-01] MEDS: Calcium Carbonate 750 MG TAB.CHEW PO (16:52)
[2023-09-01 21:16] LABS: Glucose, Whole Blood 257 mg/dL (60-115)
[2023-09-01] MEDS: Insulin Glargine,Hum.rec.anlog 100 UNIT/ML 10 ML VIAL 20 UNIT SUBCUT (21:21)
[2023-09-02] VITALS (27 sets, daily range): BP systolic 92–126; BP diastolic 35–67; PULSE 62–107; RESP 15–27; TEMP 36.6–37.1; O2SAT 4–99
[2023-09-02 05:32] LABS: MANUAL DIFF FLAG NO
[2023-09-02 05:33] LABS: Basophils Absolute Auto 0.1 X10*3/uL (0.0-0.2); Basophils Percent Auto 0.4 % (0-2); Eosinophils Absolute Auto 0.1 X10*3/uL (0.0-0.4); Eosinophils Percent Auto 0.8 % (0-4); Hematocrit 33.6 % (37.0-47.0); Hemoglobin 11.1 g/dl (12.0-16.0); Imm Gran Abs Auto 0.04 X10*3/uL (0.00-0.03); Imm Gran Pct Auto 0.4 % (0.0-0.4); Lymphocytes Absolute Auto 0.9 X10*3/uL (1.2-4.9); Lymphocytes Percent Auto 8.3 % (20-40); Mean Corpuscular Hemoglobin 26.6 pg (27.0-33.0); Mean Corpuscular Volume 80.6 fL (80.0-98.0); Mean Platelet Volume 9.8 fL (9.4-12.3); Monocytes Absolute Auto 0.9 X10*3/uL (0.1-1.2); Monocytes Percent Auto 8.2 % (2-11); Neutrophils Absolute Auto 9.1 x10*3/uL (2.0-8.3); Neutrophils Percent Auto 81.9 % (45-73); Platelet Count 235 X10*3/uL (160-400); Red Blood Count 4.17 X10*6/uL (4.20-5.50); Red Cell Distribution Width 15.8 % (11.0-16.0); White Blood Count 11.1 X10*3/uL (4.8-10.8)
[2023-09-02 05:48] LABS: Anion Gap 15 (12-20); Blood Urea Nitrogen 23 mg/dL (9-16); Calcium 9.3 mg/dL (8.4-10.2); Carbon Dioxide 30 mmol/L (22-29); Chloride 98 mmol/L (96-108); Estimated Glomerular Filt Rate > 60; Glucose Random 103 mg/dL (60-115); Magnesium 2.1 mg/dL (1.6-2.6); Phosphorus 2.6 mg/dL (2.7-4.5); Potassium 3.3 mmol/L (3.3-5.1); Sodium 140 mmol/L (135-145)
[2023-09-02] MEDS: Pantoprazole Sodium 40 MG/10 ML VIAL IVPUSH (06:17)
[2023-09-02 07:44] LABS: Glucose, Whole Blood 102 mg/dL (60-115)
[2023-09-02] MEDS: Metoprolol Succinate ER 12.5 MG HALFTAB.ER.24H PO (08:02)
[2023-09-02] MEDS: Apixaban 5 MG TABLET PO ×2 (08:03→20:05)
[2023-09-02] MEDS: Loratadine 10 MG TABLET PO (08:03)
[2023-09-02] MEDS: hydroCHLOROthiazide 25 MG TABLET PO (08:03)
[2023-09-02] MEDS: Potassium Chloride Packet 20 MEQ PACKET 40 MEQ PO (08:03)
--- NOTE | 2023-09-02 08:22 | P.PNCC_ITS ---
Subjective Subjective Date of Service: 09/02/23 Interval History: no additional episodes of flash pulmonary edema; no significant overnight events Critical Care Time (minutes): 60 Physical Exam 2 Vital Signs: Vital Signs: Last Vital Signs Temp 97.9 F 09/02/23 07:59 Pulse 104 H 09/02/23 08:02 Resp 23 H 09/02/23 07:59 BP 126/60 09/02/23 08:03 Pulse Ox 92 09/02/23 07:59 O2 Del Method Nasal Cannula 09/02/23 07:59 O2 Flow Rate 4 09/02/23 07:59 FiO2 75 08/31/23 02:00 BMI result Body Mass Index 28.8 Const: General: cooperative, healthy appearing, comfortable, no acute distress, well developed, alert, awake and Physically active O rientation/consciousness: patient oriented x3 HEENT: Head: Yes normal to inspection, Yes normocephalic and Yes atraumatic Eyes: General: appearance normal, both eyes and all related structures Neck: Neck: Yes normal visual inspection, Yes full ROM, Yes trachea midline and Yes supple Chest: Chest palpation & inspection: normal inspection of the chest Resp: Other: some appreciable rales; no appreciable rhonchi, wheezing Effort & Inspection: normal respiratory effort Cardio: Rate: tachycardic Rhythm: regular rhythm GI: Inspection: Yes normal to inspection, No Abdominal wall edema and No distended Palpation (GI): Soft to palpation, not firm, nontender, no guarding and not rigid Skin: General skin exam: no rashes or lesions noted Neuro: General: patient oriented x3, tone normal, moves all extremities and no focal motor deficits Extrem: Other: trace pitting edema bilateral lower extremities General: Yes normal to inspection, Yes full ROM and Yes capillary refill normal Psych: Appearance: grossly normal Objective Data Labs 09/02/23 05:10 09/02/23 05:10 Labs: Laboratory Results - last 24 hr 09/01/23 09/01/23 09/01/23 11:15 16:07 21:13 WBC RBC Hgb Hct MCV MCH MCHC RDW Plt Count MPV Immature Gran % (Auto) Neut % (Auto) Lymph % (Auto) [place] % (Auto) Eos % (Auto) Baso % (Auto) Lymph # (Auto) [place] # (Auto) Eos # (Auto) Baso # (Auto) Abs Immat Gran (auto) Absolute Neuts (auto) Absolute Nucleated RBC Nucleated RBC % (auto) Sodium Potassium Chloride Carbon Dioxide Anion Gap BUN Creatinine Estim Creat Clear Calc Estimated GFR POC Glucose 330 H 115 257 H Random Glucose Calcium Phosphorus Magnesium 09/02/23 09/02/23 05:10 07:40 WBC 11.1 H RBC 4.17 L Hgb 11.1 L Hct 33.6 L MCV 80.6 MCH 26.6 L MCHC 33.0 RDW 15.8 Plt Count 235 MPV 9.8 Immature Gran % (Auto) 0.4 Neut % (Auto) 81.9 H Lymph % (Auto) 8.3 L [place] % (Auto) 8.2 Eos % (Auto) 0.8 Baso % (Auto) 0.4 Lymph # (Auto) 0.9 L [place] # (Auto) 0.9 Eos # (Auto) 0.1 Baso # (Auto) 0.1 Abs Immat Gran (auto) 0.04 H Absolute Neuts (auto) 9.1 H Absolute Nucleated RBC 0.000 Nucleated RBC % (auto) 0.0 Sodium 140 Potassium 3.3 Chloride 98 Carbon Dioxide 30 H Anion Gap 15 BUN 23 H Creatinine 0.76 Estim Creat Clear Calc 54.0 Estimated GFR > 60 POC Glucose 102 Random Glucose 103 Calcium 9.3 Phosphorus 2.6 L Magnesium 2.1 Microbiology Microbiology Results: Microbiology 08/30/23 10:37 Blood - Venous Blood Culture - Preliminary No growth after 48 hours. 08/30/23 10:09 Blood - Venous Blood Culture - Preliminary No growth after 48 hours. Progress Note: A&P Assessment and plan (1) Acute hypoxemic respiratory failure: Status: Acute (2) Flash pulmonary edema: Status: Acute (3) Permanent atrial fibrillation: Status: Acute (4) Congestive heart failure: Status: Acute (5) Hypertension: Status: Acute (6) Diabetes mellitus: Status: Acute Plan Patient is a 83 Y F with metabolic syndrome, c/b CHF, atrial fibrillation on apixaban, pulmonary hypertension, and prior flash pulmonary edema necessitating intubation, presenting initially on 08/29 w/ epigastric pain, though appeared to be clinically in flash pulmonary edema, admitted ICU for BiPAP N: no acute issues CV: hemodynamically stable; appreciable any cardiology recommendations; hypertension, home amlodipine, losartan when appropriate; CHF, avoid metoprolol in acute setting; atrial fibrillation, home apixaban when PO R: acute hypoxic respiratory failure, thought to be d/t flash pulmonary edema, w/ recurrent episode in ICU; to monitor closely GI: NPO while on BiPAP, otherwise cardiac diet w/ fluid restriction : no acute issues; continue diuresis as needed; to monitor electrolytes; of note, patient reports inability to tolerate sulfa drugs including furosemide; on hydrochlorothiazide H: no acute issues; atrial fibrillation, home apixaban when PO ID: leukocytosis, though no stigmata of infection; to monitor E: to monitor hypo-/hyper-glycemia closely S: daily updates provided to daughter/son Quality Stroke Does the patient have a stroke diagnosis?: No VTE Prior VTE?: No VTE Risk Level:: Medical - moderate - high VTE Device Contraindication: N/A - Device Ordered VTE Drug Contraindication: N/A - Med Ordered
[2023-09-02] MEDS: Potassium Phosphate/NS 15 MMOL/250 ML PLAST..BAG 62.5 MMOL IV (09:21)
--- NOTE | 2023-09-02 10:59 | PM.PNCARD ---
Subjective Subjective Date of Service: 09/02/23 Interval history: Seen and examined. She states she is feeling okay. Shortness of breath is better. Does not seem to be on oxygen. Review of Systems Review of Systems Yes all other systems are reviewed and are negative Constitutional: Reports as per HPI and Reports no additional constitutional complaints Eyes: Reports as per HPI and Denies no additional eye complaints Denies system reviewed and no additional complaints, except as documented and Reports as per HPI Cardiovascular: Reports as per HPI, Reports no additional cardiovascular complaints, Denies acrocyanosis, Denies cool extremities, Denies chest pain, Denies leg edema, Denies lightheadedness, Denies palpitations and Denies dyspnea Respiratory: Reports as per HPI, Denies no additional respiratory complaints and Denies dyspnea Gastrointestinal: Reports as per HPI and Denies no additional gastrointestinal complaints Genitourinary: Reports as per HPI Musculoskeletal: Reports no additional musculoskeletal complaints and Reports as per HPI Skin/Breast: Reports system reviewed and no additional complaints, except as docu Reports system reviewed and no additional complaints, except as documented and Reports as per HPI Psychiatric: Reports no additional psychiatric complaints and Reports as per HPI Endocrine: Reports no additional endocrine complaints, Reports as per HPI and Denies palpitations Hematologic/Lymphatic: Reports no additional hematologic/lymphatic complaints and Reports as per HPI Allergic/Immunologic: Reports no additional allergic/immunologic complaints and Reports as per HPI Physical Exam Vital Signs: Last Vital Signs Temp 97.9 F 09/02/23 07:59 Pulse 81 09/02/23 10:00 Resp 17 09/02/23 10:00 BP 111/51 L 09/02/23 10:00 Pulse Ox 94 09/02/23 10:00 O2 Del Method Nasal Cannula 09/02/23 10:00 O2 Flow Rate 4 09/02/23 10:00 FiO2 75 08/31/23 02:00 BMI result Body Mass Index 28.8 Const General: comfortable and no acute distress Orientation/consciousness: patient oriented x3 HEENT Other: Unremarkable Head: Yes normal to inspection Neck Neck: Yes normal visual inspection Chest Chest palpation & inspection: normal inspection of the chest Resp Auscultation: crackles Cardio Palpation: normal PMI Heart sounds: S1 normal heart sound present, S2 normal heart sound present, no gallops, no murmurs and no rubs GI Palpation (GI): Soft to palpation Back/Spine/Pelvis Other: unremarkable Skin General skin exam: no rashes or lesions noted Neuro General: patient oriented x3 Extrem General: Yes normal to inspection Psych Mental Status: mental status grossly normal Objective Labs and Meds 09/02/23 05:10 09/02/23 05:10 Lab results: Laboratory Results - last 24 hr 09/01/23 09/01/23 09/01/23 11:15 16:07 21:13 WBC RBC Hgb Hct MCV MCH MCHC RDW Plt Count MPV Immature Gran % (Auto) Neut % (Auto) Lymph % (Auto) [place] % (Auto) Eos % (Auto) Baso % (Auto) Lymph # (Auto) [place] # (Auto) Eos # (Auto) Baso # (Auto) Abs Immat Gran (auto) Absolute Neuts (auto) Absolute Nucleated RBC Nucleated RBC % (auto) Sodium Potassium Chloride Carbon Dioxide Anion Gap BUN Creatinine Estim Creat Clear Calc Estimated GFR POC Glucose 330 H 115 257 H Random Glucose Calcium Phosphorus Magnesium 09/02/23 09/02/23 05:10 07:40 WBC 11.1 H RBC 4.17 L Hgb 11.1 L Hct 33.6 L MCV 80.6 MCH 26.6 L MCHC 33.0 RDW 15.8 Plt Count 235 MPV 9.8 Immature Gran % (Auto) 0.4 Neut % (Auto) 81.9 H Lymph % (Auto) 8.3 L [place] % (Auto) 8.2 Eos % (Auto) 0.8 Baso % (Auto) 0.4 Lymph # (Auto) 0.9 L [place] # (Auto) 0.9 Eos # (Auto) 0.1 Baso # (Auto) 0.1 Abs Immat Gran (auto) 0.04 H Absolute Neuts (auto) 9.1 H Absolute Nucleated RBC 0.000 Nucleated RBC % (auto) 0.0 Sodium 140 Potassium 3.3 Chloride 98 Carbon Dioxide 30 H Anion Gap 15 BUN 23 H Creatinine 0.76 Estim Creat Clear Calc 54.0 Estimated GFR > 60 POC Glucose 102 Random Glucose 103 Calcium 9.3 Phosphorus 2.6 L Magnesium 2.1 Progress Note: A&P Assessment and plan (1) Acute hypoxemic respiratory failure: Status: Acute (2) Flash pulmonary edema: Status: Acute (3) Permanent atrial fibrillation: Status: Acute Plan Recurring episodes of acute pulmonary edema once during CT scan and another time in the ICU. Prior episode few months back that required transferred to [facility]. Echocardiogram with cardiomyopathy with an LVEF of 35%; lower than before. Moderate aortic stenosis. [id number] mitral regurgitation. Blood pressure seems okay. Her atrial fibrillation itself is longstanding. Overall, no clear contributing factors not clear why she keeps going back into pulmonary edema. Not being on regular diuretics is an issue- per her refusal. Discussed at length today about benefits of being on diuretics and she is willing to try. May keep on IV Lasix for now. Also add either Farxiga or Jardiance. She has had 2 previous negative stress test in the last 2 years. Cardiac catheterization can be considered if she still keeps going into pulmonary edema after being on diuretics. However, with her age and comorbidities, okay to be conservative. Discussed about this with son yesterday. Discussed with warehouse checker. Time Spent With Patient Time: Total time managing care of this patient today ____ minutes. Progress Note: Quality Stroke Does the patient have a stroke diagnosis?: No Procedures Date of Service Date of Service: 09/02/23
[2023-09-02 11:42] LABS: Glucose, Whole Blood 231 mg/dL (60-115)
[2023-09-02] MEDS: Insulin Lispro 100 UNIT/ML 3 ML VIAL SUBCUT ×3 (11:50→20:05)
--- NOTE | 2023-09-02 15:21 | MHC.CM.PN ---
Pt continues care in ICU: making clinical gains: O2 requirements lower: Referred to [facility] in the event she requires home O2 or other pulmonary assessments. Waiting for acceptance. CM to follow.
[2023-09-02 16:13] LABS: Glucose, Whole Blood 191 mg/dL (60-115)
[2023-09-02 20:03] LABS: Glucose, Whole Blood 281 mg/dL (60-115)
[2023-09-02] MEDS: Insulin Glargine,Hum.rec.anlog 100 UNIT/ML 10 ML VIAL 20 UNIT SUBCUT (20:05)
[2023-09-03] VITALS (17 sets, daily range): BP systolic 91–136; BP diastolic 36–69; PULSE 58–100; RESP 12–25; TEMP 36–36.8; O2SAT 92–99
--- NOTE | 2023-09-03 00:06 | PC.NURSE ---
bradycardic while sleeping, down to mid 40s intermittently. ROLL OFF DRIVER aware.
[2023-09-03 05:28] LABS: MANUAL DIFF FLAG NO
[2023-09-03 05:33] LABS: Basophils Percent Auto 0.5 % (0-2); Eosinophils Absolute Auto 0.4 X10*3/uL (0.0-0.4); Eosinophils Percent Auto 5.3 % (0-4); Hematocrit 30.5 % (37.0-47.0); Hemoglobin 10.2 g/dl (12.0-16.0); Imm Gran Abs Auto 0.04 X10*3/uL (0.00-0.03); Imm Gran Pct Auto 0.5 % (0.0-0.4); Lymphocytes Absolute Auto 0.9 X10*3/uL (1.2-4.9); Lymphocytes Percent Auto 10.5 % (20-40); Mean Corpuscular HGB Conc 33.4 g/dl (31.0-35.0); Mean Corpuscular Hemoglobin 27.1 pg (27.0-33.0); Mean Corpuscular Volume 80.9 fL (80.0-98.0); Mean Platelet Volume 9.9 fL (9.4-12.3); Monocytes Absolute Auto 0.8 X10*3/uL (0.1-1.2); Monocytes Percent Auto 9.9 % (2-11); Neutrophils Absolute Auto 6.1 x10*3/uL (2.0-8.3); Neutrophils Percent Auto 73.3 % (45-73); Platelet Count 209 X10*3/uL (160-400); Red Blood Count 3.77 X10*6/uL (4.20-5.50); Red Cell Distribution Width 15.6 % (11.0-16.0); White Blood Count 8.3 X10*3/uL (4.8-10.8)
[2023-09-03 05:50] LABS: Anion Gap 10 (12-20); Blood Urea Nitrogen 26 mg/dL (9-16); Calcium 9.1 mg/dL (8.4-10.2); Carbon Dioxide 31 mmol/L (22-29); Chloride 101 mmol/L (96-108); Creatinine Clr Calc Pharmacy 53.3; Estimated Glomerular Filt Rate > 60; Glucose Random 83 mg/dL (60-115); Magnesium 2.2 mg/dL (1.6-2.6); Potassium 3.3 mmol/L (3.3-5.1); Sodium 139 mmol/L (135-145)
[2023-09-03] MEDS: Potassium Chloride Packet 20 MEQ PACKET 40 MEQ PO (06:10)
[2023-09-03] MEDS: Pantoprazole Sodium 40 MG/10 ML VIAL IVPUSH (06:10)
[2023-09-03 07:17] LABS: Glucose, Whole Blood 96 mg/dL (60-115)
[2023-09-03] MEDS: Furosemide 40 MG/4 ML VIAL IVPUSH ×2 (08:31→16:52)
[2023-09-03] MEDS: Empagliflozin 10 MG TABLET PO (08:32)
[2023-09-03] MEDS: Metoprolol Succinate ER 12.5 MG HALFTAB.ER.24H PO (08:32)
[2023-09-03] MEDS: Apixaban 5 MG TABLET PO ×2 (08:32→21:22)
[2023-09-03] MEDS: Loratadine 10 MG TABLET PO (08:32)
--- NOTE | 2023-09-03 09:51 | P.PNCC_ITS ---
Subjective Subjective Date of Service: 09/03/23 Interval History: 83-year-old lady with underlying diabetes mellitus, hypertension, systolic heart failure, AFib, valvular disease admitted on 08/30/2023 with hypoxia secondary to acute pulmonary edema requiring BiPAP support and diuresis. Hospital course significant for hyperglycemia and recurrence of flash pulmonary edema requiring additional diuresis. Patient titrated off BiPAP support and evaluated by Cardiology service. No events overnight. Critical Care Time (minutes): 0 Physical Exam 2 Vital Signs: Vital Signs: Last Vital Signs Temp 97.4 F 09/03/23 08:00 Pulse 100 09/03/23 09:00 Resp 20 09/03/23 09:00 BP 119/54 L 09/03/23 08:32 Pulse Ox 96 09/03/23 09:00 O2 Del Method Nasal Cannula 09/03/23 09:00 O2 Flow Rate 2 09/03/23 09:00 FiO2 75 08/31/23 02:00 BMI result Body Mass Index 28.8 Const: General: no acute distress, alert and awake Eyes: Sclerae: sclerae normal EOM: EOMs intact bilaterally Neck: Neck: Yes no lymphadenopathy, Yes trachea midline and Yes supple Resp: Effort & Inspection: normal respiratory effort and no respiratory distress Auscultation: clear to auscultation bilaterally Cardio: Rate: regular rate Rhythm: abnormal rhythm irregularly irregular Heart sounds: no gallops, no murmurs and no rubs GI: Palpation (GI): Soft to palpation and Other GI palpation findings present ( Nontender) Auscultation: normal bowel sounds Extrem: General: No clubbing, No cyanosis and Yes edema (Trace bilateral) Objective Data Labs 09/03/23 05:06 09/03/23 05:06 Labs: Laboratory Results - last 24 hr 09/02/23 09/02/23 09/02/23 11:39 16:09 20:00 WBC RBC Hgb Hct MCV MCH MCHC RDW Plt Count MPV Immature Gran % (Auto) Neut % (Auto) Lymph % (Auto) [place] % (Auto) Eos % (Auto) Baso % (Auto) Lymph # (Auto) [place] # (Auto) Eos # (Auto) Baso # (Auto) Abs Immat Gran (auto) Absolute Neuts (auto) Absolute Nucleated RBC Nucleated RBC % (auto) Sodium Potassium Chloride Carbon Dioxide Anion Gap BUN Creatinine Estim Creat Clear Calc Estimated GFR POC Glucose 231 H 191 H 281 H Random Glucose Calcium Phosphorus Magnesium 09/03/23 09/03/23 05:06 07:13 WBC 8.3 RBC 3.77 L Hgb 10.2 L Hct 30.5 L MCV 80.9 MCH 27.1 MCHC 33.4 RDW 15.6 Plt Count 209 MPV 9.9 Immature Gran % (Auto) 0.5 H Neut % (Auto) 73.3 H Lymph % (Auto) 10.5 L [place] % (Auto) 9.9 Eos % (Auto) 5.3 H Baso % (Auto) 0.5 Lymph # (Auto) 0.9 L [place] # (Auto) 0.8 Eos # (Auto) 0.4 Baso # (Auto) 0.0 Abs Immat Gran (auto) 0.04 H Absolute Neuts (auto) 6.1 Absolute Nucleated RBC 0.000 Nucleated RBC % (auto) 0.0 Sodium 139 Potassium 3.3 Chloride 101 Carbon Dioxide 31 H Anion Gap 10 L BUN 26 H Creatinine 0.77 Estim Creat Clear Calc 53.3 Estimated GFR > 60 POC Glucose 96 Random Glucose 83 Calcium 9.1 Phosphorus 3.0 Magnesium 2.2 Microbiology Microbiology Results: Microbiology 08/30/23 10:37 Blood - Venous Blood Culture - Preliminary No growth after 48 hours. 08/30/23 10:09 Blood - Venous Blood Culture - Preliminary No growth after 48 hours. Progress Note: A&P Assessment and plan (1) Hypertension: Status: Acute (2) Diabetes mellitus: Status: Acute (3) Permanent atrial fibrillation: Status: Acute (4) Congestive heart failure: Status: Acute (5) Flash pulmonary edema: Status: Acute Plan Assessment: 83-year-old lady with underlying chronic systolic congestive heart failure, AFib, and valvular disease admitted with dyspnea and hypoxia secondary to flash pulmonary edema initially requiring BiPAP support, now improved with diuresis. Plan: Neuro: No acute issues. Cardiac: Cardiac was pulmonary edema, resolved with diuresis. Underlying valvular disease and AFib. Cardiology service care appreciated. Pulmonary: Acute hypoxic respiratory failure initially requiring BiPAP support secondary to flash pulmonary edema, now titrated off. Renal: No acute issues. Endo: No acute issues. Underlying diabetes mellitus. GI: No acute issues. ID: No acute issues Heme/Onc: No acute issues. Psych: No acute issues. Miscellaneous: No acute issues. Prophylaxis: Apixaban Diet: Cardiac Quality Stroke Does the patient have a stroke diagnosis?: No VTE Prior VTE?: No VTE Risk Level:: Medical - moderate - high VTE Device Contraindication: N/A - Device Ordered VTE Drug Contraindication: N/A - Med Ordered
--- NOTE | 2023-09-03 10:01 | PM.PNCARD ---
Subjective Subjective Date of Service: 09/03/23 Principal diagnosis: Pulmonary edema Interval history: Patient still appears to be short of breath but denies shortness of breath. She complains of right-sided chest pain after swallowing potassium. She also has burping and says producing white frothy sputum. She denies any chest pain. Denies any palpitations. No lightheadedness, syncope. Remains in atrial fibrillation Review of Systems Review of Systems Yes all other systems are reviewed and are negative Constitutional: Reports as per HPI and Reports no additional constitutional complaints Eyes: Reports as per HPI and Denies no additional eye complaints Denies system reviewed and no additional complaints, except as documented and Reports as per HPI Cardiovascular: Reports as per HPI, Reports no additional cardiovascular complaints, Denies acrocyanosis, Denies cool extremities, Denies chest pain, Denies leg edema, Denies lightheadedness, Denies palpitations and Denies dyspnea Respiratory: Reports as per HPI, Denies no additional respiratory complaints and Denies dyspnea Gastrointestinal: Reports as per HPI and Denies no additional gastrointestinal complaints Genitourinary: Reports as per HPI Musculoskeletal: Reports no additional musculoskeletal complaints and Reports as per HPI Skin/Breast: Reports system reviewed and no additional complaints, except as docu Reports system reviewed and no additional complaints, except as documented and Reports as per HPI Psychiatric: Reports no additional psychiatric complaints and Reports as per HPI Endocrine: Reports no additional endocrine complaints, Reports as per HPI and Denies palpitations Hematologic/Lymphatic: Reports no additional hematologic/lymphatic complaints and Reports as per HPI Allergic/Immunologic: Reports no additional allergic/immunologic complaints and Reports as per HPI Physical Exam Vital Signs: Last Vital Signs Temp 97.4 F 09/03/23 08:00 Pulse 100 09/03/23 09:00 Resp 20 09/03/23 09:00 BP 119/54 L 09/03/23 08:32 Pulse Ox 96 09/03/23 09:00 O2 Del Method Nasal Cannula 09/03/23 09:00 O2 Flow Rate 2 09/03/23 09:00 FiO2 75 08/31/23 02:00 BMI result Body Mass Index 28.8 Const General: cooperative and in distress mild and respiratory Nutritional Appearance: overweight Orientation/consciousness: patient oriented x3 Neck Neck: Yes trachea midline, Yes supple and Yes no JVD Resp Effort & Inspection: normal respiratory effort Auscultation: crackles bilateral at the base Cardio Rhythm: abnormal rhythm irregularly irregular Heart sounds: S1 normal heart sound present, S2 normal heart sound present, no click, no gallops and Murmur heart sound present systolic mid GI Auscultation: normal bowel sounds Neuro General: patient oriented x3 and no focal motor deficits Extrem General: Yes no clubbing, cyanosis or edema Objective Labs and Meds 09/03/23 05:06 09/03/23 05:06 Lab results: Laboratory Results - last 24 hr 09/02/23 09/02/23 09/02/23 11:39 16:09 20:00 WBC RBC Hgb Hct MCV MCH MCHC RDW Plt Count MPV Immature Gran % (Auto) Neut % (Auto) Lymph % (Auto) [place] % (Auto) Eos % (Auto) Baso % (Auto) Lymph # (Auto) [place] # (Auto) Eos # (Auto) Baso # (Auto) Abs Immat Gran (auto) Absolute Neuts (auto) Absolute Nucleated RBC Nucleated RBC % (auto) Sodium Potassium Chloride Carbon Dioxide Anion Gap BUN Creatinine Estim Creat Clear Calc Estimated GFR POC Glucose 231 H 191 H 281 H Random Glucose Calcium Phosphorus Magnesium 09/03/23 09/03/23 05:06 07:13 WBC 8.3 RBC 3.77 L Hgb 10.2 L Hct 30.5 L MCV 80.9 MCH 27.1 MCHC 33.4 RDW 15.6 Plt Count 209 MPV 9.9 Immature Gran % (Auto) 0.5 H Neut % (Auto) 73.3 H Lymph % (Auto) 10.5 L [place] % (Auto) 9.9 Eos % (Auto) 5.3 H Baso % (Auto) 0.5 Lymph # (Auto) 0.9 L [place] # (Auto) 0.8 Eos # (Auto) 0.4 Baso # (Auto) 0.0 Abs Immat Gran (auto) 0.04 H Absolute Neuts (auto) 6.1 Absolute Nucleated RBC 0.000 Nucleated RBC % (auto) 0.0 Sodium 139 Potassium 3.3 Chloride 101 Carbon Dioxide 31 H Anion Gap 10 L BUN 26 H Creatinine 0.77 Estim Creat Clear Calc 53.3 Estimated GFR > 60 POC Glucose 96 Random Glucose 83 Calcium 9.1 Phosphorus 3.0 Magnesium 2.2 Progress Note: A&P Assessment and plan (1) Acute hypoxemic respiratory failure: Status: Acute Assessment and Plan: Patient with recurrent acute pulmonary edema apparently although BNP is within normal limits, clinical findings are consistent with pulmonary edema of unclear etiology. Question ischemic which is possibly likely although no significant changes given her baseline left bundle-branch block on the EKG. Clinically still has rales in her lungs. Will continue with IV diuresis. Strict intake and output chart needs to be pursued. Continue rate control and continue metoprolol for neurohormonal modulation. Add valsartan 20 mg b.i.d. for neurohormonal modulation vasodilators therapy. Will continue to follow clinically. (2) Permanent atrial fibrillation: Status: Acute Assessment and Plan: Atrial fibrillation which is long-term and currently on metoprolol therapy. Also full oral anticoagulation with Eliquis. Continue to monitor. Will follow with you Time Spent With Patient Time: Total time managing care of this patient today ____ minutes. Progress Note: Quality Stroke Does the patient have a stroke diagnosis?: No Procedures Date of Service Date of Service: 09/03/23
[2023-09-03] MEDS: Omeprazole 40 MG CAPSULE.DR PO (10:17)
--- NOTE | 2023-09-03 11:08 | PM.EVENT ---
Event Note Date of Service: 09/03/23 Event Note: 83 year old women tx from ICU, pulmonary edema requiring bipap. Discussed with ICU attending. off bipap and no longer hypoxic Time Spent With Patient Time: Total time managing care of this patient today ____ minutes.
--- NOTE | 2023-09-03 11:28 | MHC.SL.SWA ---
Speech Pathologist Impression: Risk of aspiration, pharyngoesphageal dysphagia Dysphasia Diet Status: No changes at this time Liquid Consistency and Strategies for Safe Swallow: Liquid Intake Recommendation: Thin Liquid Intake Strategies: Small Sips Solid Food Consistency: Dietary Recommendations: Regular Additional Modifications to Solid Foods: CERTIFIED NURSING ASSISTANT was re-consulted today after patient had hard time swallow eggs at breakfast and morning meds with applesauce. Patient reporting food getting stuck, foam coming out, and persistent belching. When given food and water under the CERTIFIED NURSING ASSISTANT's supervision this morning, patient did exhibit immediate belching, said she could feel as it was going down, and felt globus under her sternum, later stating she also felt it in her stomach. CERTIFIED NURSING ASSISTANT recommends continue with REGULAR texture diet and THIN liquids, as it does not seem that diet modification would address patient's symptoms at this time, which appear to be more consistent with potential esophageal (i.e. reflux vs. motility issues)/ upper G.I. conditions. Pills to be crushed when possible. Patient is recommended direct supervision at meal times. CERTIFIED NURSING ASSISTANT discussed with patient precautions to be taken for esophageal dysphagia: remaining upright when eating/drinking and at least 30 minutes afterwards, taking small bites, chewing food very finely, alternating with sips of liquid. Patient may benefit from G.I. consult. CERTIFIED NURSING ASSISTANT will f/u with patient 1-2x as needed to monitor. Oral Medication Intake: Crushed with Puree Please contact the pharmacy regarding appropriate crushable or liquid drug formulations that are available whenever modified delivery is recommended. Compensatory Strategies and Precautions to be Taken for Safe Swallow: Sitting Upright (90 deg) Double Swallow Small Bites and Sips Alternate Liquids/Solids Rate of Ingestion Change Supervision While Eating and Drinking for Safe Swallow: Total Supervision (1:1) Foods to Avoid: Hard, tough solids Swallowing Recommended Treatments: Compens. Strategy Educat. Recommendation for Speech: 1-2 f/u Manager [employer] Clinican/Clinical Fellow: No Supervisory Statement: I have reviewed and agree with the student/clinical fellow's documentation: N/A Speech Language Pathologist: Flavia Ayala M.A., [facility]-CERTIFIED NURSING ASSISTANT
[2023-09-03 12:11] LABS: Glucose, Whole Blood 142 mg/dL (60-115)
--- NOTE | 2023-09-03 14:46 | MHC.CM.PN ---
PT WAS TRANSFERRED TO [facility] TODAY, NO LONGER REQUIRING BI-PAP OR HYPOXIC. CM WILL CONTINUE TO FOLLOW FOR ANY CHANGE TO DC PLAN.
[2023-09-03 16:39] LABS: Glucose, Whole Blood 171 mg/dL (60-115)
[2023-09-03] MEDS: Insulin Lispro 100 UNIT/ML 3 ML VIAL SUBCUT ×2 (16:50→21:23)
[2023-09-03 20:22] LABS: Glucose, Whole Blood 164 mg/dL (60-115)
[2023-09-03] MEDS: Insulin Glargine,Hum.rec.anlog 100 UNIT/ML 10 ML VIAL 20 UNIT SUBCUT (21:22)
[2023-09-04] VITALS (8 sets, daily range): BP systolic 92–132; BP diastolic 49–71; PULSE 68–89; RESP 18–19; TEMP 36–36.7; O2SAT 95–100
[2023-09-04] MEDS: Omeprazole 40 MG CAPSULE.DR PO (05:23)
[2023-09-04 06:01] LABS: MANUAL DIFF FLAG NO
[2023-09-04 06:20] LABS: Basophils Percent Auto 0.5 % (0-2); Eosinophils Absolute Auto 0.6 X10*3/uL (0.0-0.4); Eosinophils Percent Auto 7.1 % (0-4); Hematocrit 33.5 % (37.0-47.0); Imm Gran Abs Auto 0.03 X10*3/uL (0.00-0.03); Imm Gran Pct Auto 0.4 % (0.0-0.4); Lymphocytes Absolute Auto 1.2 X10*3/uL (1.2-4.9); Lymphocytes Percent Auto 15.5 % (20-40); Mean Corpuscular HGB Conc 32.8 g/dl (31.0-35.0); Mean Corpuscular Hemoglobin 26.6 pg (27.0-33.0); Mean Corpuscular Volume 80.9 fL (80.0-98.0); Mean Platelet Volume 10.4 fL (9.4-12.3); Monocytes Absolute Auto 0.9 X10*3/uL (0.1-1.2); Monocytes Percent Auto 11.8 % (2-11); Neutrophils Absolute Auto 5.2 x10*3/uL (2.0-8.3); Neutrophils Percent Auto 64.7 % (45-73); Platelet Count 259 X10*3/uL (160-400); Red Blood Count 4.14 X10*6/uL (4.20-5.50); Red Cell Distribution Width 15.5 % (11.0-16.0)
[2023-09-04 06:26] LABS: Albumin Level 3.6 g/dL (3.5-5.0); Anion Gap 13 (12-20); Blood Urea Nitrogen 29 mg/dL (9-16); Calcium 9.2 mg/dL (8.4-10.2); Carbon Dioxide 32 mmol/L (22-29); Chloride 98 mmol/L (96-108); Creatinine Clr Calc Pharmacy 48.3; Estimated Glomerular Filt Rate > 60; Glucose Random 95 mg/dL (60-115); Magnesium 2.3 mg/dL (1.6-2.6); Phosphorus 3.7 mg/dL (2.7-4.5); Potassium 3.2 mmol/L (3.3-5.1); Sodium 140 mmol/L (135-145)
[2023-09-04 07:51] LABS: Glucose, Whole Blood 103 mg/dL (60-115)
--- NOTE | 2023-09-04 09:36 | PM.PNCARD ---
Subjective Subjective Date of Service: 09/04/23 Principal diagnosis: Pulmonary edema Interval history: Seen examined at bedside. Feeling better. Physical Exam Vital Signs: Last Vital Signs Temp 97.4 F 09/04/23 07:56 Pulse 68 09/04/23 09:02 Resp 18 09/04/23 07:56 BP 92/53 L 09/04/23 09:02 Pulse Ox 95 09/04/23 08:52 O2 Del Method Room Air 09/04/23 07:56 O2 Flow Rate 4 09/04/23 03:41 FiO2 75 08/31/23 02:00 BMI result Body Mass Index 28.8 GENERAL APPEARANCE: in no acute distress, pleasant. NECK: no carotid bruit, mild jugular venous distention. SKIN: no suspicious lesions, warm and dry. HEART: no murmurs, regular rate and rhythm. LUNGS: clear to auscultation bilaterally. ABDOMEN: soft, nontender. EXTREMITIES: no edema. PERIPHERAL PULSES: equal. NEUROLOGIC: No gross deficits, AAO X 3 Objective Labs and Meds 09/04/23 05:30 09/04/23 05:30 Lab results: Laboratory Results - last 24 hr 09/03/23 09/03/23 09/03/23 12:06 16:20 20:05 WBC RBC Hgb Hct MCV MCH MCHC RDW Plt Count MPV Immature Gran % (Auto) Neut % (Auto) Lymph % (Auto) [place] % (Auto) Eos % (Auto) Baso % (Auto) Lymph # (Auto) [place] # (Auto) Eos # (Auto) Baso # (Auto) Abs Immat Gran (auto) Absolute Neuts (auto) Absolute Nucleated RBC Nucleated RBC % (auto) Sodium Potassium Chloride Carbon Dioxide Anion Gap BUN Creatinine Estim Creat Clear Calc Estimated GFR POC Glucose 142 H 171 H 164 H Random Glucose Calcium Phosphorus Magnesium Albumin 09/04/23 09/04/23 05:30 07:18 WBC 8.0 RBC 4.14 L Hgb 11.0 L Hct 33.5 L MCV 80.9 MCH 26.6 L MCHC 32.8 RDW 15.5 Plt Count 259 MPV 10.4 Immature Gran % (Auto) 0.4 Neut % (Auto) 64.7 Lymph % (Auto) 15.5 L [place] % (Auto) 11.8 H Eos % (Auto) 7.1 H Baso % (Auto) 0.5 Lymph # (Auto) 1.2 [place] # (Auto) 0.9 Eos # (Auto) 0.6 H Baso # (Auto) 0.0 Abs Immat Gran (auto) 0.03 Absolute Neuts (auto) 5.2 Absolute Nucleated RBC 0.000 Nucleated RBC % (auto) 0.0 Sodium 140 Potassium 3.2 L Chloride 98 Carbon Dioxide 32 H Anion Gap 13 BUN 29 H Creatinine 0.85 Estim Creat Clear Calc 48.3 Estimated GFR > 60 POC Glucose 103 Random Glucose 95 Calcium 9.2 Phosphorus 3.7 Magnesium 2.3 Albumin 3.6 Progress Note: A&P Assessment and plan (1) Permanent atrial fibrillation: Status: Acute (2) Congestive heart failure: Status: Acute Plan Pleasant 83 year female with left bundle-branch block, cardiomyopathy and moderate aortic valve stenosis who got admitted with pulmonary edema. Diuresed and clinically improving. Continue the diuretics today IV and can be transitioned to oral Lasix from tomorrow. Would favor b.i.d. dosing. Hydrochlorothiazide should be stopped at discharge as she will go home with Lasix. We will consider further workup as outpatient for the cardiomyopathy. Thank you for allowing me to participate in the care of your patient. Please feel free to contact me if you have any questions. Time Spent With Patient Time: Total time managing care of this patient today ____ minutes. Progress Note: Quality Stroke Does the patient have a stroke diagnosis?: No Procedures Date of Service Date of Service: 09/04/23
[2023-09-04] MEDS: Empagliflozin 10 MG TABLET PO (09:49)
[2023-09-04] MEDS: Loratadine 10 MG TABLET PO (09:49)
[2023-09-04] MEDS: Apixaban 5 MG TABLET PO ×2 (09:49→20:47)
--- NOTE | 2023-09-04 11:31 | P.PNIM_ITS ---
Subjective Subjective Date of Service: 09/04/23 Interval History: No acute issues overnight. mild sob while lying down Review of Systems Denies chest pain Denies shortness of breath Denies nausea vomiting diarrhea Admits to back pain worse with movement Physical Exam 2 Vital Signs: Vital Signs: Last Vital Signs Temp 97.4 F 09/04/23 07:56 Pulse 68 09/04/23 09:02 Resp 18 09/04/23 07:56 BP 92/53 L 09/04/23 09:02 Pulse Ox 95 09/04/23 08:52 O2 Del Method Room Air 09/04/23 07:56 O2 Flow Rate 4 09/04/23 03:41 FiO2 75 08/31/23 02:00 BMI result Body Mass Index 28.8 Appearing in no acute distress neck is supple no lymphadenopathy, JVD noted lung sounds are clear to auscultation heart regular rate rhythm, clear S1, S2 positive bowel sounds, abdomen is soft, nontender neuro patient is alert x3, no focal deficits Objective Data Active Medications Apixaban (Apixaban 5 Mg Tablet) 5 mg PO BID [facility] Last Admin: 09/04/23 09:49 Dose: 5 mg Documented By: SERVANDO Calcium Carbonate (Calcium Carbonate 750 Mg Tab.Chew) 750 mg PO Q4H PRN PRN Reason: GI Upset Last Admin: 09/01/23 16:52 Dose: 750 mg Documented By: CHICO Docusate Sodium (Docusate Sodium 100 Mg Capsule) 100 mg PO BEDTIME PRN PRN Reason: Constipation Empagliflozin (Empagliflozin 10 Mg Tablet) 10 mg PO DAILY [facility] Last Admin: 09/04/23 09:49 Dose: 10 mg Documented By: SERVANDO Furosemide (Furosemide 40 Mg/4 Ml Vial) 40 mg IVPUSH BID@0900,1800 [facility]; Protocol Last Admin: 09/04/23 09:02 Dose: Not Given Documented By: SERVANDO Non-Admin Reason: Physician Held Med Gabapentin (Gabapentin 100 Mg Capsule) 100 mg PO BID PRN PRN Reason: Pain, Moderate(Pain Scale 4-6) Glucose (Glucose Gel 15 Gm Gel..Gram.) 15 gm PO Q15M PRN; Protocol PRN Reason: per Hypoglycemia Standing Ord. Dextrose (D10) 250 mls @ 750 mls/hr IV Q15M PRN; Protocol PRN Reason: per Hypoglycemia Standing Ord. Insulin Glargine (Insulin Glargine,Hum.Rec.Anlog 100 Unit/Ml 10 Ml Vial) 20 unit SUBCUT BEDTIME [facility] Last Admin: 09/03/23 21:22 Dose: 20 unit Documented By: MARYSOL Insulin Human Lispro (Insulin Lispro 100 Unit/Ml 3 Ml Vial) 0 unit SUBCUT QIDACHS [facility]; Protocol Last Admin: 09/04/23 07:52 Dose: Not Given Documented By: SERVANDO Non-Admin Reason: No Insulin Coverage Loratadine (Loratadine 10 Mg Tablet) 10 mg PO DAILY [facility] Last Admin: 09/04/23 09:49 Dose: 10 mg Documented By: SERVANDO Metoprolol Succinate (Metoprolol Succinate Er 12.5 Mg Halftab.Er.24h) 12.5 mg PO DAILY [facility]; Protocol Last Admin: 09/04/23 09:02 Dose: Not Given Documented By: SERVANDO Non-Admin Reason: Physician Held Med Omeprazole (Omeprazole 40 Mg Capsule.Dr) 40 mg PO DAILY@0630 [facility] Last Admin: 09/04/23 05:23 Dose: 40 mg Documented By: EMMANUEL Labs 09/04/23 05:30 09/04/23 05:30 Labs: Laboratory Results - last 24 hr 09/03/23 09/03/23 09/03/23 12:06 16:20 20:05 MCV MCH MCHC RDW Plt Count MPV Immature Gran % (Auto) Neut % (Auto) Lymph % (Auto) [place] % (Auto) Eos % (Auto) Baso % (Auto) Lymph # (Auto) [place] # (Auto) Eos # (Auto) Baso # (Auto) Abs Immat Gran (auto) Absolute Neuts (auto) Absolute Nucleated RBC Nucleated RBC % (auto) Anion Gap Estim Creat Clear Calc Estimated GFR POC Glucose 142 H 171 H 164 H Random Glucose Calcium Phosphorus Magnesium Albumin 09/04/23 09/04/23 05:30 07:18 MCV 80.9 MCH 26.6 L MCHC 32.8 RDW 15.5 Plt Count 259 MPV 10.4 Immature Gran % (Auto) 0.4 Neut % (Auto) 64.7 Lymph % (Auto) 15.5 L [place] % (Auto) 11.8 H Eos % (Auto) 7.1 H Baso % (Auto) 0.5 Lymph # (Auto) 1.2 [place] # (Auto) 0.9 Eos # (Auto) 0.6 H Baso # (Auto) 0.0 Abs Immat Gran (auto) 0.03 Absolute Neuts (auto) 5.2 Absolute Nucleated RBC 0.000 Nucleated RBC % (auto) 0.0 Anion Gap 13 Estim Creat Clear Calc 48.3 Estimated GFR > 60 POC Glucose 103 Random Glucose 95 Calcium 9.2 Phosphorus 3.7 Magnesium 2.3 Albumin 3.6 Assessment and Plan (1) Hypertension: Status: Acute (2) Permanent atrial fibrillation: Status: Acute (3) Congestive heart failure: Status: Acute Plan 83-year-old woman admitted by ICU for flash pulmonary edema with acute dyspnea, hypoxia necessitating intubation, weaned to BiPAP, treated with nitroglycerin paste, Lasix. Acute on chronic pulmonary edema Echo EF 35%, moderate aortic valve stenosis IV Lasix b.i.d., transition to oral tomorrow Cardiology following monitor daily weight strict intake and output Diabetes mellitus type 2 Sliding scale, Lantus, ADA diet Paroxysmal atrial fibrillation Continue apixaban, metoprolol Hypertension with hypotension Hold amlodipine, hydrochlorothiazide, losartan, spironolactone GERD Continue PPI DVT prophylaxis with apixaban Full code Quality Stroke Does the patient have a stroke diagnosis?: No VTE Prior VTE?: No VTE Risk Level:: Medical - moderate - high VTE Device Contraindication: N/A - Device Ordered VTE Drug Contraindication: N/A - Med Ordered
[2023-09-04 11:32] LABS: Glucose, Whole Blood 231 mg/dL (60-115)
[2023-09-04] MEDS: Insulin Lispro 100 UNIT/ML 3 ML VIAL SUBCUT ×3 (11:55→21:09)
--- NOTE | 2023-09-04 13:44 | MHC.SL.DTX ---
Dysphagia Diet modifications: Last documented Solid diet consistencies: Regular Last documented Liquid consistency: Thin Last documented Medication Administration: Changes made to current diet?: No Liquid Consistency and Strategies: Liquid Intake Recommendation: Thin Compensatory Strategies for Safe Swallow: Small Sips Compensatory Strategies for Safe Swallow(b): Sitting Upright (90 deg) Double Swallow Small Bites and Sips Alternate Liquids/Solids Rate of Ingestion Change Solid Food Consistency: Dietary Recommendations: Regular Additional Modifications to Solids: LAB TESTER was re-consulted today after patient had hard time swallow eggs at breakfast and morning meds with applesauce. Patient reporting food getting stuck, foam coming out, and persistent belching. When given food and water under the LAB TESTER's supervision this morning, patient did exhibit immediate belching, said she could feel as it was going down, and felt globus under her sternum, later stating she also felt it in her stomach. LAB TESTER recommends continue with REGULAR texture diet and THIN liquids, as it does not seem that diet modification would address patient's symptoms at this time, which appear to be more consistent with potential esophageal (i.e. reflux vs. motility issues)/ upper G.I. conditions. Pills to be crushed when possible. Patient is recommended direct supervision at meal times. LAB TESTER discussed with patient precautions to be taken for esophageal dysphagia: remaining upright when eating/drinking and at least 30 minutes afterwards, taking small bites, chewing food very finely, alternating with sips of liquid. Patient may benefit from G.I. consult. LAB TESTER will f/u with patient 1-2x as needed to monitor. Oral Medication Intake: Whole with Liquid Strategies and Precautions to be Taken for Safe Swallow: Sitting Upright (90 deg) Double Swallow Small Bites and Sips Alternate Liquids/Solids Rate of Ingestion Change Supervision While Eating and/Drinking: Total Supervision (1:1) Foods to Avoid: Hard, tough solids Swallowing Recommended Treatments: Compens. Strategy Educat.t: Recommendation for Speech: NA:Typical Evaluation Comment: Remain upright when eating/drinking and at least 30 minutes afterwards, take small bites, chew food very finely, alternating with sips of liquid. Patient may benefit from G.I. consult for ? esophageal dysphagia. Frequency/Duration: Date Range for Service Req: Timeline to reassess: Additional Comments: Patient was initially seen by LAB TESTER 08/30. Patient at the time denied having any trouble swallowing and passed her RN swallow screen. She presented with prolonged mastication time, but all other aspects of swallow deemed functional. She was recommended an unmodified diet and was removed from LAB TESTER work list. Repeat swallow eval was requested by nursing staff this morning after patient had trouble swallowing eggs at breakfast and taking morning meds with applesauce. RN observed patient to be gagging and stating, It won't go down. Patient reported she felt it in her chest, could feel it going down all the way, foam was coming out, and persistent belching after eating. 09/03 Treatment: Pt seen with her Lunch tray. She is upset she did not get lettuce on her sandwich. LAB TESTER explains this must have been a kitchen oversight. Other than that she offers no complaints, the food is very good here . 100% of her tray is cleared. She reports that she is no longer having frothy secretions. No further LAB TESTER intervention required at this level of care. Crematory Operator Clinican/Clinical Fellow: No Supervisory Statement: I have reviewed and agree with the student/clinical fellow's documentation: N/A Speech Language Pathologist: Meño Lund M.A., [facility]-LAB TESTER
[2023-09-04 16:56] LABS: Glucose, Whole Blood 168 mg/dL (60-115)
[2023-09-04] MEDS: Potassium Chloride Packet 20 MEQ PACKET 40 MEQ PO (17:59)
[2023-09-04] MEDS: Insulin Glargine,Hum.rec.anlog 100 UNIT/ML 10 ML VIAL 20 UNIT SUBCUT (20:47)
[2023-09-04 21:05] LABS: Glucose, Whole Blood 164 mg/dL (60-115)
[2023-09-05] VITALS (8 sets, daily range): BP systolic 100–153; BP diastolic 57–77; PULSE 76–100; RESP 17–20; TEMP 35.9–37.1; O2SAT 92–98
[2023-09-05] MEDS: Omeprazole 40 MG CAPSULE.DR PO (07:01)
[2023-09-05 07:12] LABS: Anion Gap 12 (12-20); Blood Urea Nitrogen 22 mg/dL (9-16); Carbon Dioxide 31 mmol/L (22-29); Chloride 100 mmol/L (96-108); Creatinine Clr Calc Pharmacy 49.4; Estimated Glomerular Filt Rate > 60; Glucose Random 141 mg/dL (60-115); Potassium 3.7 mmol/L (3.3-5.1); Sodium 139 mmol/L (135-145)
[2023-09-05 07:16] LABS: B Type Natriuretic Peptide 145 pg/mL (<100)
[2023-09-05 07:36] LABS: Glucose, Whole Blood 127 mg/dL (60-115)
[2023-09-05] MEDS: Furosemide 40 MG TABLET PO (09:15)
[2023-09-05] MEDS: Empagliflozin 10 MG TABLET PO (09:16)
[2023-09-05] MEDS: Potassium Chloride Packet 20 MEQ PACKET 40 MEQ PO (09:16)
[2023-09-05] MEDS: Spironolactone 25 MG TABLET PO (09:16)
[2023-09-05] MEDS: Loratadine 10 MG TABLET PO (09:16)
[2023-09-05] MEDS: Apixaban 5 MG TABLET PO (09:16)
[2023-09-05] MEDS: Metoprolol Succinate ER 12.5 MG HALFTAB.ER.24H PO (09:17)
[2023-09-05 11:03] LABS: Glucose, Whole Blood 238 mg/dL (60-115)
--- NOTE | 2023-09-05 11:28 | PM.PNCARD ---
Subjective Subjective Date of Service: 09/05/23 Principal diagnosis: Pulmonary edema Interval history: Seen examined at bedside. Feeling better. She said she ambulated in the hallways yesterday and was feeling good. Physical Exam Vital Signs: Last Vital Signs Temp 97.5 F 09/05/23 11:23 Pulse 86 09/05/23 11:23 Resp 20 09/05/23 11:23 BP 153/76 H 09/05/23 11:23 Pulse Ox 95 09/05/23 11:23 O2 Del Method Room Air 09/05/23 11:23 O2 Flow Rate 4 09/04/23 03:41 FiO2 75 08/31/23 02:00 BMI result Body Mass Index 28.8 GENERAL APPEARANCE: in no acute distress, pleasant. NECK: no carotid bruit, mild jugular venous distention. SKIN: no suspicious lesions, warm and dry. HEART: no murmurs, regular rate and rhythm. LUNGS: clear to auscultation bilaterally. ABDOMEN: soft, nontender. EXTREMITIES: no edema. PERIPHERAL PULSES: equal. NEUROLOGIC: No gross deficits, AAO X 3 Objective Labs and Meds 09/04/23 05:30 09/05/23 06:36 Lab results: Laboratory Results - last 24 hr 09/04/23 09/04/23 09/04/23 11:11 16:43 20:59 Sodium Potassium Chloride Carbon Dioxide Anion Gap BUN Creatinine Estim Creat Clear Calc Estimated GFR POC Glucose 231 H 168 H 164 H Random Glucose Calcium B-Natriuretic Peptide 09/05/23 09/05/23 09/05/23 06:36 07:33 11:00 Sodium 139 Potassium 3.7 Chloride 100 Carbon Dioxide 31 H Anion Gap 12 BUN 22 H Creatinine 0.83 Estim Creat Clear Calc 49.4 Estimated GFR > 60 POC Glucose 127 H 238 H Random Glucose 141 H Calcium 9.0 B-Natriuretic Peptide 145 H Progress Note: A&P Assessment and plan (1) Permanent atrial fibrillation: Status: Acute (2) Congestive heart failure: Status: Acute Plan Pleasant 83 year female with left bundle-branch block, cardiomyopathy and moderate aortic valve stenosis who got admitted with pulmonary edema. Diuresed and clinically improving. Discharge home Lasix 40 mg daily. Stop the hydrochlorothiazide on discharge. Spironolactone 25 mg daily. She will need a diagnostic cardiac catheterization which we will arrange as outpatient. Thank you for allowing me to participate in the care of your patient. Please feel free to contact me if you have any questions. Time Spent With Patient Time: Total time managing care of this patient today ____ minutes. Progress Note: Quality Stroke Does the patient have a stroke diagnosis?: No Procedures Date of Service Date of Service: 09/05/23
[2023-09-05] MEDS: Insulin Lispro 100 UNIT/ML 3 ML VIAL SUBCUT (12:02)
--- NOTE | 2023-09-05 14:26 | P.F2F_ITS ---
Service Date Service Date: 09/05/23 Encounter Date of encounter: 09/05/23 Reasons for Services Signs and symptoms assessed: Flash pulmonary edema Reason for halfway: CV/CP assess and/or care and teach disease management Homebound: Leaving the home is medically contraindicated at this time without the asist of a device and/or another person due th the listed conditions above and below. Reason homebound: unsteady gait / fall risk Certification: Based on the above findings, I certify that this patient is confined to the home and needs intermittent halfway care, physical therapy and/or speech therapy, or continues to need occupational therapy. The patient is under my care, and I have initiated the establishment of the plan of care. The patient will be followed by a physician who will periodically review the plan of care. Time Spent With Patient Time: Total time managing care of this patient today ____ minutes.
--- NOTE | 2023-09-05 14:27 | P.DS_ITS ---
DS: Providers Provider Date of Service: 09/05/23 Date of admission: 08/30/23 16:51 Primary care physician: Patricia Nicole MD Consults: 08/31/23 09:44 Consult to Cardiology Routine Consulting Provider: Geoff Callahan Reason for consultation: Flash Pulmonary Edema DS: Diagnosis Discharge Diagnosis (1) Permanent atrial fibrillation: Status: Acute (2) Congestive heart failure: Status: Acute DS: Summary Hospital Course Hospital Course: History and physical as per admitting provider. Patient is a 83 Y F with metabolic syndrome, c/b CHF, atrial fibrillation on apixaban, pulmonary hypertension, and prior flash pulmonary edema necessitating intubation, presenting initially on 08/29 w/ epigastric pain, found to be acutely dyspneic, hypoxic, clinically appeared to be in flash pulmonary edema, given nitroglycerin paste, placed on BiPAP w/ persistent acute hypoxic respiratory failure 83-year-old woman treated for acute chronic pulmonary edema. Initially treated with IV Lasix twice daily and transition to oral. Seen evaluated by Cardiology. Plan for outpatient cardiac catheterization. Echocardiogram showed EF 35% with moderate aortic valve stenosis. Patient has been able to eat and drink, no nausea or vomiting. No chest pain or shortness to breath. She is on Jardiance and oral Lasix. He is off of oxygen. Diabetes mellitus type 2. Continue home medications Hypertension. Hydrochlorothiazide stopped. May continue amlodipine, losartan and spironolactone GERD. Continue PPI Time Attestation Discharge Coordination Time (in mins): 35 Quality: Safe Use of Opioids Does Pt have an Active Cancer Diagnosis on the Problem List?: No Quality: Stroke Does the patient have a stroke diagnosis?: No Physical Exam Vital Signs: Vital Signs: Last Vital Signs Temp 97.5 F 09/05/23 11:23 Pulse 86 09/05/23 11:23 Resp 20 09/05/23 11:23 BP 153/76 H 09/05/23 11:23 Pulse Ox 95 09/05/23 11:23 O2 Del Method Room Air 09/05/23 11:23 O2 Flow Rate 4 09/04/23 03:41 FiO2 75 08/31/23 02:00 BMI result Body Mass Index 28.8 Appearing in no acute distress head is normocephalic atraumatic eyes pupils are PERRLA sclera is anicteric mouth throat mucous membranes are intact and moist neck is supple no lymphadenopathy, no JVD noted lung sounds are clear to auscultation heart regular rate rhythm, clear S1, S2 positive bowel sounds, abdomen is soft, nontender neuro patient is alert x3, no focal deficits DS: Data Data Completed and Pending Labs on day of discharge: Laboratory Results - last 24 hr 09/04/23 09/04/23 09/05/23 16:43 20:59 06:36 Sodium 139 Potassium 3.7 Chloride 100 Carbon Dioxide 31 H Anion Gap 12 BUN 22 H Creatinine 0.83 Estim Creat Clear Calc 49.4 Estimated GFR > 60 POC Glucose 168 H 164 H Random Glucose 141 H Calcium 9.0 B-Natriuretic Peptide 145 H 09/05/23 09/05/23 07:33 11:00 Sodium Potassium Chloride Carbon Dioxide Anion Gap BUN Creatinine Estim Creat Clear Calc Estimated GFR POC Glucose 127 H 238 H Random Glucose Calcium B-Natriuretic Peptide Discharge Plan Discharge Anticipated Discharge Date/Time: 09/05/23 14:14 Patient Disposition: Home Health Service Discharge Diagnosis: Acute on chronic pulmonary edema Referrals: Patricia Nicole MD [Primary Care Provider] - 1 Week Geoff Callahan MD [Physician] - 1 Week Discharge Medications: New furosemide 40 mg Tablet 40 mg PO DAILY Qty: 30 0RF Protocol: Hold for SBP< HOLD for SBP < : 90 omeprazole 40 mg Capsule,Delayed Release(Dr/Ec) 40 mg PO DAILY@0630 Qty: 30 0RF Jardiance 10 mg Tablet 10 mg PO DAILY Qty: 30 0RF Continued Eliquis 5 mg tablet 5 mg PO BID Qty: 180 3RF amlodipine 5 mg tablet 5 mg PO DAILY 90 Days Qty: 90 3RF metformin 1,000 mg tablet 1,000 mg PO BID Qty: 20 0RF Rx Instructions: Local fill DO NOT GIVE A DOSE UNTIL 614-24 AFTER 1:15PM (DME) pen needle, diabetic [BD Ultra-Fine Mini Pen Needle] 31 gauge x 3/16 needle See Rx Instructions .Route Qty: 360 4RF Rx Instructions: As directed QID ac and hs rosuvastatin 5 mg tablet 5 mg PO MOWEFR 90 Days Qty: 39 3RF losartan 50 mg tablet 50 mg PO DAILY Qty: 90 3RF metoprolol succinate 25 mg tablet extended release 24 hr 25 mg PO DAILY Qty: 90 3RF spironolactone 25 mg tablet 25 mg PO DAILY Qty: 90 0RF insulin glargine [Lantus Solostar U-100 Insulin] 100 unit/mL (3 mL) insulin pen 20 unit subcut BEDTIME Qty: 15 6RF estradiol [Estrace] 0.01 % (0.1 mg/gram) Cream 1 g VAGINAL MOWEFR pantoprazole 40 mg tablet,delayed release (DR/EC) 40 mg PO DAILY@0630 docusate sodium [Colace] 100 mg Capsule 100 mg PO DAILY PRN (Reason: Constipation) loratadine [Wal-itin] 10 mg Tablet 10 mg PO DAILY PreserVision AREDS-2 250-90-40-1 mg Capsule 1 tab PO BID gabapentin 100 mg capsule 100 mg PO BID PRN (Reason: Pain) coenzyme Q10 [CoQ-10] 100 mg capsule 100 mg PO DAILY Humalog KwikPen Insulin 200 unit/mL (3 mL) insulin pen 2 - 12 unit subcut DAILY Rx Instructions: 60-124 = 0 units 125-150=2 units 151-200=4 units 201-250=6 units 251-300=8 units 301-350=10 units 351-400=12 units Discontinued hydrochlorothiazide 25 mg tablet 25 mg PO DAILY Qty: 30 5RF Discharge Orders: Discharge Order (Routine); Ordered 09/05/23 Ordered By: Steffi Jang Diet: Advance to usual diet Activity on Discharge: As tolerated Stand Alone Forms: Patient Portal Discharge page Print Language: Mongolian Care Plan Goals: you have been started on new medications, furosemide, Jardiance, omeprazole your hydrochlorothiazide has been stopped Health Concerns: Acute on chronic pulmonary edema Plan of Treatment: Follow-up with primary care provider as needed Follow-up with cardiology for discussion regarding cardiac catheterization Take all medications as prescribed Assessment: See discharge summary
--- NOTE | 2023-09-05 14:50 | MHC.CM.PN ---
Second IMM 09/05/23, pt has been medically cleared for DC, she will go home via family transport, and have home health services from [facility].
== END 2023-09-05 15:06 | disposition home health service (06) | DRG 291 ==
LOC: HO.ED 14:20 → HO.EDOVER 16:55 → HO.ICU 17:07 → HO.IMC 08-31 13:54 → HO.ICU 08-31 14:15 → HO.IMC 09-03 09:49
PROVIDERS: Internal Medicine Pulmonary Disease; Nurse Practitioner Family; Student in an Organized Health Care Education/Training Program; Admitting Provider Internal Medicine Critical Care Medicine; Emergency Provider Emergency Medicine; PCP Internal Medicine; Visit Provider Nurse Practitioner Acute Care
DX: I11.0 Hypertensive heart disease with heart failure (principal); J96.01 Acute respiratory failure with hypoxia; I48.21 Permanent atrial fibrillation; E88.810 Metabolic syndrome; K21.9 Gastro-esophageal reflux disease without esophagitis; I44.7 Left bundle-branch block, unspecified; I95.9 Hypotension, unspecified; I42.9 Cardiomyopathy, unspecified; I35.0 Nonrheumatic aortic (valve) stenosis; E11.65 Type 2 diabetes mellitus with hyperglycemia; I27.20 Pulmonary hypertension, unspecified; Z79.4 Long term (current) use of insulin; Z79.01 Long term (current) use of anticoagulants; Z79.84 Long term (current) use of oral hypoglycemic drugs; Z79.899 Other long term (current) drug therapy
CPT/HCPCS: 36415; 70450; 71045; 74177; 80048; 80076; 81001; 82040; 82803; 82947; 83605; 83690; 83735; 83880; 84100; 84443; 84484; 85025; 87040; 92526; 92610; 93005; 93306; 94660; 97116; 97162; 99285; C9113; J1644; J1940; J2305; J2919; J3010; Q9967

== ENCOUNTER → 2023-08-30 09:30 | Outpatient (BNV) | payer MEDICARE, SELFPAY | PROVIDERS: Emergency Provider Emergency Medicine; PCP Internal Medicine; Visit Provider Internal Medicine | DX: I48.91 Unspecified atrial fibrillation (principal); I44.7 Left bundle-branch block, unspecified; R94.31 Abnormal electrocardiogram [ECG] [EKG] | CPT/HCPCS: 93010 ==

== ENCOUNTER 2023-08-30 16:51 | Outpatient (BNV) | payer MEDICARE, SELFPAY | END 2023-08-31 07:00 | PROVIDERS: Admitting Provider Internal Medicine Critical Care Medicine; Emergency Provider Emergency Medicine; PCP Internal Medicine; Visit Provider Internal Medicine | DX: I48.91 Unspecified atrial fibrillation (principal); I35.0 Nonrheumatic aortic (valve) stenosis; I35.8 Other nonrheumatic aortic valve disorders; I34.0 Nonrheumatic mitral (valve) insufficiency; I44.7 Left bundle-branch block, unspecified | CPT/HCPCS: 93010; 93306 ==

== ENCOUNTER 2023-08-30 16:51 | Outpatient (BNV) | payer MEDICARE, SELFPAY | END 2023-09-01 15:50 | PROVIDERS: Admitting Provider Internal Medicine Critical Care Medicine; Emergency Provider Emergency Medicine; PCP Internal Medicine; Visit Provider Internal Medicine | DX: I48.91 Unspecified atrial fibrillation (principal) | CPT/HCPCS: 93010 ==

== ENCOUNTER → 2023-08-30 16:51 | Outpatient (BNV) | payer MEDICARE, SELFPAY | PROVIDERS: Admitting Provider Internal Medicine Critical Care Medicine; Emergency Provider Emergency Medicine; PCP Internal Medicine; Visit Provider Internal Medicine | DX: I48.21 Permanent atrial fibrillation (principal); I50.9 Heart failure, unspecified | CPT/HCPCS: 99223; 99233 ==

== ENCOUNTER → 2023-08-30 16:51 | Outpatient (BNV) | payer MEDICARE, SELFPAY | PROVIDERS: Admitting Provider Internal Medicine Critical Care Medicine; Emergency Provider Emergency Medicine; PCP Internal Medicine; Visit Provider Internal Medicine Pulmonary Disease | DX: J81.0 Acute pulmonary edema (principal); E11.9 Type 2 diabetes mellitus without complications; I48.21 Permanent atrial fibrillation; I50.9 Heart failure, unspecified; I10 Essential (primary) hypertension | CPT/HCPCS: 99232 ==

== ENCOUNTER → 2023-08-30 16:51 | Outpatient (BNV) | payer MEDICARE, SELFPAY | PROVIDERS: Admitting Provider Internal Medicine Critical Care Medicine; Emergency Provider Emergency Medicine; PCP Internal Medicine; Visit Provider Internal Medicine Critical Care Medicine | DX: J96.01 Acute respiratory failure with hypoxia (principal); J81.0 Acute pulmonary edema; I48.21 Permanent atrial fibrillation; I50.9 Heart failure, unspecified; I10 Essential (primary) hypertension; E11.9 Type 2 diabetes mellitus without complications | CPT/HCPCS: 99223; 99291 ==

== ENCOUNTER → 2023-08-30 16:51 | Outpatient (BNV) | payer MEDICARE, SELFPAY | PROVIDERS: Admitting Provider Internal Medicine Critical Care Medicine; Emergency Provider Emergency Medicine; PCP Internal Medicine; Visit Provider Nurse Practitioner Acute Care | DX: I11.0 Hypertensive heart disease with heart failure (principal); I50.9 Heart failure, unspecified; I48.21 Permanent atrial fibrillation | CPT/HCPCS: 99232; 99239; 99499; G0180 ==

== ENCOUNTER 2023-09-11 14:41 | Outpatient (AMB) | payer MEDICARE, SELFPAY ==
[2023-09-11 14:43] VITALS: BP 110/60; PULSE 86; BMI 26.4
--- NOTE | 2023-09-11 14:43 | MHC.OFFVIS ---
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 Accompanied by: Daughter Allergies adhesive tape [Adhesive Tape] Allergy (Mild, Verified 08/30/23 09:47) CONTACT DERMATITIS cephalexin [CEPHALEXIN] Allergy (Unknown, Verified 08/30/23 09:47) SWELLING latex [Latex] Allergy (Unknown, Verified 08/30/23 09:47) RASH Biaxin Adverse Reaction (Intermediate, Verified 08/30/23 09:47) plapitations bacitracin [From Cortisporin] Adverse Reaction (Mild, Verified 08/30/23 09:47) EYE IRRITATION hydrocortisone [From Cortisporin] Adverse Reaction (Mild, Verified 08/30/23 09:47) EYE IRRITATION neomycin [From Cortisporin] Adverse Reaction (Mild, Verified 08/30/23 09:47) EYE IRRITATION flecainide [From Tambocor] Adverse Reaction (Unknown, Verified 08/30/23 09:47) HEART RACING lisinopril [LISINOPRIL] Adverse Reaction (Unknown, Verified 08/30/23 09:47) cough, nausea Sulfa (Sulfonamide Antibiotics) [SULFA(SULFONAMIDE ANTIBIOTICS)] Adverse Reaction (Unknown, Verified 08/30/23 09:47) PALPITATIONS Medication List - Last Reconciled 09/11/23 by Geoff Callahan MD amlodipine 5 mg PO DAILY 90 days apixaban (Eliquis) 5 mg PO BID coenzyme Q10 (CoQ-10) 100 mg PO DAILY docusate sodium (Colace) 100 mg PO DAILY PRN empagliflozin (Jardiance) 10 mg PO DAILY estradiol 0.01%(0.1mg/gram) (Estrace) 1 g vaginal MOWEFR furosemide 40 mg See Protocol PO DAILY gabapentin 100 mg PO BID PRN insulin lispro (Humalog KwikPen U-200 Insulin) 2 - 12 units subcut DAILY Lantus Solostar U-100 Insulin (insulin glargine) 20 units (0.2 mL) subcut BEDTIME NS loratadine (Wal-itin) 10 mg PO DAILY losartan 50 mg PO DAILY metformin 1,000 mg PO BID metoprolol succinate ER 25 mg PO DAILY pantoprazole 40 mg PO DAILY@0630 pen needle, diabetic (BD Ultra-Fine Mini Pen Needle) As directed QID ac and hs rosuvastatin 5 mg PO MOWEFR 90 days spironolactone 25 mg PO DAILY vit C,U-Iq-wbmoj-lutein-zeaxan 250-90-40-1 mg (PreserVision AREDS-2) 1 tab PO BID HPI Comments Details: Aminah returns for follow-up. Recently she was in the hospital because of pulmonary edema. She came for a CT scan and was lying down for that when she went into acute pulmonary edema leading to ICU admission. She had 1 further episode of the same in the ICU. She is only on hydrochlorothiazide/spironolactone prior to that but then put on Lasix and Jardiance this time. She states she is feeling better. No documented coronary disease in the past. Otherwise, she is chronic atrial fibrillation as well as hypertension. [facility] Medical History (Updated 09/11/23 @ 15:35 by Geoff Callahan MD) Hypertension Nephrolithiasis Urinary tract infection Paroxysmal atrial fibrillation Cholelithiasis Renal cyst Pulmonary hypertension Non-rheumatic mitral regurgitation Permanent atrial fibrillation Right nephrolithiasis Compression deformity of vertebra Early satiety Microcytic anemia Heartburn Atrophic vaginitis Osteopenia Osteoarthritis of knees, bilateral Essential hypertension Dyslipidemia Type 2 diabetes mellitus with kidney complication, 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 Son No problems noted. Daughter No problems noted. Social History Household Members: None Housing: House Do you presently have visiting nurse or other home services: No Alcohol intake: never Patient Tobacco Use Status: Never used Tobacco e-Cigarette/Vaping Use: Never Used service: No Current occupational status: retired Cognitive needs: No Hearing needs: Yes Vision needs: Yes Review of Systems Const Denies chills, Denies fatigue, Denies fever(s), Denies frequent falls, Denies weakness, Denies weight gain and Denies weight loss ENT Denies dizziness Card Denies chest pain, Denies leg edema, Denies lightheadedness, Denies palpitations, Denies dyspnea and Denies dyspnea on exertion Resp Denies cough, Denies dyspnea and Denies dyspnea on exertion GI Denies hematochezia Musc Denies abnormal gait, Denies muscle weakness, Denies numbness, Denies radiating pain into limb and Denies tingling Neuro Denies abnormal gait, Denies dizziness, Denies frequent falls, Denies numbness, Denies tingling and Denies weakness Endo Denies fatigue and Denies palpitations Physical Exam Vital Signs: Last Vital Signs Pulse 86 09/11/23 14:43 BP 110/60 09/11/23 14:43 BMI result Body Mass Index 26.4 Const General: comfortable and no acute distress Orientation/consciousness: patient oriented x3 HEENT Other: Unremarkable Head: Yes normal to inspection Neck Neck: Yes normal visual inspection Chest Chest palpation & inspection: normal inspection of the chest Resp Auscultation: clear to auscultation bilaterally Cardio Palpation: normal PMI Heart sounds: S1 normal heart sound present, S2 normal heart sound present, no gallops, no murmurs and no rubs GI Palpation (GI): Soft to palpation Back/Spine/Pelvis Other: unremarkable Skin General skin exam: no rashes or lesions noted Neuro General: patient oriented x3 Extrem General: Yes normal to inspection Psych Mental Status: mental status grossly normal Assessment & Plan Assessment & Plan (1) Acute on chronic systolic (congestive) heart failure: Code(s): I50.23 - Acute on chronic systolic (congestive) heart failure Category: Medical Plan: In the recent echocardiogram, LVEF is 35%. Previously, slightly higher. For medications, on losartan, metoprolol ER, spironolactone, Lasix, Jardiance. Discussed about diagnostic catheterization for further assessment and she is agreeable. We will schedule. Clinically, she seems euvolemic today. (2) LBBB (left bundle branch block): Code(s): I44.7 - Left bundle-branch block, unspecified Category: Medical Plan: Will monitor for any progressive conduction system disease. Possible Bi V candidate in the future if she is willing. (3) Non-rheumatic aortic stenosis: Code(s): I35.0 - Nonrheumatic aortic (valve) stenosis Category: Medical Plan: In the recent echocardiogram, aortic valve moderately calcified with moderate stenosis. Will monitor for now. (4) Permanent atrial fibrillation: Code(s): I48.21 - Permanent atrial fibrillation Category: Medical Plan: Continue metoprolol/Eliquis. No changes. (5) Essential hypertension: Code(s): I10 - Essential (primary) hypertension Category: Medical Plan: Stable. No changes. Plan Discussed with family who came for appointment. Orders: Orders Basic Metabolic Panel Today I50.9 - Heart failure, unspecified Cardiac Cath LT Diagnostic Today I25.10 - Atherosclerotic heart disease of [place] coronary artery without angina pectoris, I50.9 - Heart failure, unspecified Coding Level of Care Code Est Pt Level 5 (13157) Diagnoses Acute on chronic systolic (congestive) heart failure I50.23 LBBB (left bundle branch block) I44.7 Non-rheumatic aortic stenosis I35.0 Permanent atrial fibrillation I48.21 Essential hypertension I10
== END 2023-09-11 15:25 | disposition home or self-care (01) ==
PROVIDERS: PCP Internal Medicine; Visit Provider Internal Medicine
DX: I11.0 Hypertensive heart disease with heart failure (principal); I50.23 Acute on chronic systolic (congestive) heart failure; I48.21 Permanent atrial fibrillation; I44.7 Left bundle-branch block, unspecified; I35.0 Nonrheumatic aortic (valve) stenosis
CPT/HCPCS: 99215

== ENCOUNTER → 2023-09-11 14:41 | Outpatient (BNVA) | payer MEDICARE, SELFPAY | PROVIDERS: PCP Internal Medicine; Visit Provider Internal Medicine | DX: I48.21 Permanent atrial fibrillation (principal); I11.0 Hypertensive heart disease with heart failure; I50.23 Acute on chronic systolic (congestive) heart failure; I44.7 Left bundle-branch block, unspecified; I35.0 Nonrheumatic aortic (valve) stenosis | CPT/HCPCS: 99212 ==

== ENCOUNTER 2023-09-13 07:52 | Outpatient (REF) | payer MEDICARE, SELFPAY ==
[2023-09-13 11:41] LABS: Hematocrit 37.5 % (37.0-47.0); Hemoglobin 11.7 g/dl (12.0-16.0)
[2023-09-13 11:54] LABS: Estimated Average Glucose 157 mg/dL; Hemoglobin A1c % 7.1 % (<6.0)
[2023-09-13 12:24] LABS: Alanine Aminotransferase 11 U/L (0-31); Anion Gap 16 (12-20); Aspartate Amino Transferase 17 U/L (5-31); Blood Urea Nitrogen 25 mg/dL (9-16); Calcium 9.9 mg/dL (8.4-10.2); Carbon Dioxide 28 mmol/L (22-29); Chloride 100 mmol/L (96-108); Cholesterol 158 mg/dL (<200); Estimated Glomerular Filt Rate 40; Glucose Fasting 128 mg/dL (60-99); HDL Cholesterol 42 mg/dL (>40); LDL Cholesterol Calculated 94 mg/dL (<100); Potassium 4.6 mmol/L (3.3-5.1); Sodium 139 mmol/L (135-145); Triglycerides 110 mg/dL (<150); Vitamin D 25-OH Total 40.3 ng/mL (>30)
[2023-09-13 12:27] LABS: Creatinine Urine 58.78 mg/dL; Microalbum/Creatinine Ratio Ur 340.2 ug/mg cr (<30)
== END 2023-09-13 07:53 | disposition home or self-care (01) ==
LOC: HO.HMGCLDS 07:52
PROVIDERS: PCP Internal Medicine; Referring Provider Internal Medicine; Visit Provider Internal Medicine
DX: Z00.00 Encounter for general adult medical examination without abnormal findings (principal); I34.0 Nonrheumatic mitral (valve) insufficiency; I07.1 Rheumatic tricuspid insufficiency; R32 Unspecified urinary incontinence; I48.0 Paroxysmal atrial fibrillation; D50.9 Iron deficiency anemia, unspecified; M85.80 Other specified disorders of bone density and structure, unspecified site; I10 Essential (primary) hypertension; E78.5 Hyperlipidemia, unspecified; E11.40 Type 2 diabetes mellitus with diabetic neuropathy, unspecified; Z79.4 Long term (current) use of insulin; Z79.01 Long term (current) use of anticoagulants
CPT/HCPCS: 36415; 80048; 80061; 82043; 82306; 82570; 83036; 84450; 84460; 85014; 85018

== ENCOUNTER 2023-09-18 13:23 | Outpatient (AMB) | payer MEDICARE, SELFPAY ==
[2023-09-18 13:26] VITALS: BP 108/54; PULSE 69; O2SAT 94; BMI 27.1
--- NOTE | 2023-09-18 13:26 | MHC.PC.OV ---
Vital Signs 09/18/23 13:26 Height 5 ft 4 in Weight 158 lb BMI 27.1 BP 108/54 L Blood Pressure Location Lt brachial Position Sitting Pulse 69 Pulse Source Pulse Oximeter Pulse Oximetry (%) 94 Oxygen Delivery Method Room Air Intake Visit Reasons: 3M F/U & HDF Intake Note: Pt is here today for her 3mo. f/u & HDF Allergies adhesive tape [Adhesive Tape] Allergy (Mild, Verified 09/19/23 01:39) CONTACT DERMATITIS cephalexin [CEPHALEXIN] Allergy (Unknown, Verified 09/19/23 01:39) SWELLING latex [Latex] Allergy (Unknown, Verified 09/19/23 01:39) RASH Biaxin Adverse Reaction (Intermediate, Verified 09/19/23 01:39) plapitations bacitracin [From Cortisporin] Adverse Reaction (Mild, Verified 09/19/23 01:39) EYE IRRITATION hydrocortisone [From Cortisporin] Adverse Reaction (Mild, Verified 09/19/23 01:39) EYE IRRITATION neomycin [From Cortisporin] Adverse Reaction (Mild, Verified 09/19/23 01:39) EYE IRRITATION flecainide [From Tambocor] Adverse Reaction (Unknown, Verified 09/19/23 01:39) HEART RACING lisinopril [LISINOPRIL] Adverse Reaction (Unknown, Verified 09/19/23 01:39) cough, nausea Sulfa (Sulfonamide Antibiotics) [SULFA(SULFONAMIDE ANTIBIOTICS)] Adverse Reaction (Unknown, Verified 09/19/23 01:39) PALPITATIONS Medication List - Last Reconciled 09/19/23 by Patricia Nicole MD amlodipine 5 mg PO DAILY 90 days apixaban (Eliquis) 5 mg PO BID coenzyme Q10 (CoQ-10) 100 mg PO DAILY docusate sodium (Colace) 100 mg PO DAILY PRN empagliflozin (Jardiance) 10 mg PO DAILY estradiol 0.01%(0.1mg/gram) (Estrace) 1 g vaginal MOWEFR furosemide 40 mg See Protocol PO DAILY gabapentin 100 mg PO BID 3 months insulin lispro (Humalog KwikPen U-200 Insulin) 2 - 12 units subcut DAILY Lantus Solostar U-100 Insulin (insulin glargine) 20 units (0.2 mL) subcut BEDTIME NS loratadine (Wal-itin) 10 mg PO DAILY losartan 50 mg PO DAILY metformin 1,000 mg PO BID metoprolol succinate ER 25 mg PO DAILY pantoprazole 40 mg PO DAILY@0630 pen needle, diabetic (BD Ultra-Fine Mini Pen Needle) As directed QID ac and hs rosuvastatin 5 mg PO MOWEFR 90 days spironolactone 25 mg PO DAILY vit C,O-Nq-zmogd-lutein-zeaxan 250-90-40-1 mg (PreserVision AREDS-2) 1 tab PO BID Tobacco use date assessed: 09/18/23 Fall risk assessment: No Falls in past year Last assessed Fall Risk: 09/18/23 Dental Screening Dental Screen Date: 09/18/23 Did you have a dental visit in the last 12 months?: Yes Did you have a dental problem in the last 6 months where you did not have access to dental care?: Yes Was dental information given to patient?: Patient has dentist HPI 3M F/U & HDF HPI Details 83 year old female with diabetes mellitus, atrial fibrillation on apixaban, hypertension, and history of flash pulmonary edema in the past, recently admitted for acute pulmonary edema. She was initially treated with IV Lasix then transitioned to oral diuretic. She was seen and evaluated by Cardiology who schedule her for a cardiac catheterization on 10/05/2023. Echocardiogram done during admission showed an ejection fraction 35% with moderate aortic valve stenosis. At present patient states she has been feeling better, back to baseline, with no complaints of chest pain, shortness of breath, dizziness or abdominal pain. No leg swelling reported. [facility] Medical History (Updated 09/19/23 @ 01:50 by Patricia Nicole MD) Congestive heart failure Anemia Moderate aortic stenosis Diabetes mellitus Hypertension Nephrolithiasis Urinary tract infection Paroxysmal atrial fibrillation Cholelithiasis Renal cyst Pulmonary hypertension Non-rheumatic mitral regurgitation Permanent atrial fibrillation Right nephrolithiasis Compression deformity of vertebra Microcytic anemia Heartburn Atrophic vaginitis Osteopenia Osteoarthritis of knees, bilateral Essential hypertension Dyslipidemia Type 2 diabetes mellitus with diabetic neuropathy, with long-term current use of insulin Surgical History History of esophagogastroduodenoscopy (EGD) (~10/2022) History of lumbar discectomy History of lobectomy of lung History of hysterectomy History of total right knee replacement (TKR) Lumbar radiculopathy Family History Father Diabetes mellitus Mother Diabetes mellitus Myocardial infarction Sister Cancer Sister No problems noted. Son No problems noted. Daughter No problems noted. Social History Household Members: None Housing: House Do you presently have visiting nurse or other home services: No Alcohol intake: never Patient Tobacco Use Status: Never used Tobacco e-Cigarette/Vaping Use: Never Used service: No Current occupational status: retired Cognitive needs: No Hearing needs: Yes Vision needs: Yes Questionnaire Thrive Questionnaire Date Thrive assessed: 08/31/23 INGRID-7 AMB Questionnaire INGRID-7 Date INGRID - 7 assessed: 06/20/23 Source: Developed by Drs. Chaz Mayer, Lily Ruggiero, Aayush Severino and colleagues, with an educational melinda from [employer]. Review of Systems Const Denies chills, Denies fatigue, Denies fever(s), Denies frequent falls, Denies weakness and Denies weight gain ENT Denies dizziness Card Denies chest pain, Denies leg edema, Denies lightheadedness, Denies dyspnea and Denies dyspnea on exertion Resp Denies cough, Denies dyspnea and Denies dyspnea on exertion GI Reports no additional complaints Reports no additional complaints Musc Denies muscle weakness and Reports tingling Neuro Denies dizziness, Denies frequent falls, Reports tingling, Reports paresthesias (in lower extremities) and Denies weakness Endo Denies fatigue Alejandro/Lymph Denies easy bleeding and Reports easy bruising Physical exam (Primary Care) Vital Signs: Last Vital Signs Pulse 69 09/18/23 13:26 BP 108/54 L 09/18/23 13:26 Pulse Ox 94 09/18/23 13:26 Oxygen Delivery Method Room Air 09/18/23 13:26 BMI result Body Mass Index 27.1 Tobacco/Smoking Status: Tobacco use Status Tobacco use date assessed 09/18/23 09/18/23 13:30 Patient Tobacco Use Status Never used Tobacco 09/18/23 13:30 e-Cigarette/Vaping Use Never Used 09/18/23 13:30 Thrive Assessment: Date of Thrive Assessment Date Thrive assessed 08/31/23 09/18/23 13:30 Const Other: Alert oriented x3, no acute distress noted ambulatory with walker,daughter accompanying patient Orientation/consciousness: patient oriented x3 HENMT Mouth: Normal oral and palatal mucosa present and moist mucous membranes Neck Neck: Yes full ROM, Yes no lymphadenopathy and Yes supple Resp Auscultation: clear to auscultation bilaterally Cardio Other: S1-S2 present regular rate and rhythm, systolic murmur heard for base GI Other: Normal bowel sounds, soft, nontender, with no mass palpated General: Yes no CVA tenderness Back/Spine/Pelvis Back: no CVA tenderness Skin General skin exam: no rashes or lesions noted Neuro General: patient oriented x3, tone normal, moves all extremities, CN's II-XI intact bilaterally and decrease sensation to monofilament Gait exam (Neuro): Assisted gait required Extrem General: Yes full ROM, Yes no joint enlargement, Yes no clubbing, cyanosis or edema and Yes no calf tenderness Results Reviewed Results Reviewed: Laboratory Tests 09/04/23 09/13/23 05:30 08:02 WBC 8.0 Hgb 11.0 L 11.7 L Hct 33.5 L 37.5 MCV 80.9 MCH 26.6 L Name: Aminah Kraft Age/Sex: 83/F : 1940 Unit#: [id number] Attend Dr: Patricia Nicole MD Re09/13/23 Status: DEP REF Location: [facility] Disch: SPEC : [id number] ANALISA: 09/13/23-801 STATUS: COMP REQ : [id number] RECD: 09/13/23-[address]: Patricia Nicole MD COMP: 09/13/23-1224 ENTERED: 09/13/23-[address]: ORDERED: Met Prof Fast, AST, ALT, Lipid Panel, Vitamin D 25-OH Test Result Flag Reference Sodium 139 135-145 mmol/L Potassium 4.6 # 3.3-5.1 mmol/L CL 100 96-108 mmol/L CO2 28 22-29 mmol/L Gap 16 12-20 BUN 25 H 9-16 mg/dL Creat 1.27 0.5-1.4 mg/dL EGFR 40 NOTE: For -Turkmen individuals, multiply the result by 1.210. Chronic Kidney Disease: Estimated GFR < 60 mL/min/1.73m2 Severe Kidney Disease: Estimated GFR < 15 mL/min/1.73m2 FBS 128 H 60-99 mg/dL A fasting glucose of 126 mg/dl or greater on more than one occasion is considered diagnostic of diabetes. CA 9.9 # 8.4-10.2 mg/dL AST (GOT) 17 5-31 U/L ALT (GPT) 11 0-31 U/L Triglyceride 110 <150 mg/dL Desirable Triglyceride: less than 150 mg/dL Borderline High Triglyceride 150-199 mg/dL High Triglyceride: 200-499 mg/dL Very High Triglyceride: greater than or equal to 5OO mg/dL Cholesterol 158 <200 mg/dL Desirable Cholesterol: less than 200 mg/dL Borderline High Cholesterol: 200-239 mg/dL High Cholesterol: greater than 239 mg/dL LDL Calculated 94 <100 mg/dL Desirable LDL: less than 100 mg/dL Near Optimal/Above Optimal LDL: 110-129 mg/dL Borderline High LDL: 130-159 mg/dL High LDL: 160-189 mg/dL Very High LDL: greater than or equal to 190 mg/dL HDL 42 >40 mg/dL Desirable HDL: greater than 40 mg/dL Note: This HDL assay may give artificially low results in patients with liver disease. Vit D 25-OH Tot 40.3 >30 ng/mL Health Based Reference Values* < 20 ng/mL Deficient 20-30 ng/mL Insufficient > 30 ng/mL Sufficient Laboratory Tests 09/13/23 08:02 Estimat Average Glucose 157 Hemoglobin A1c % 7.1 H Assessment and Plan Assessment & Plan (1) Essential hypertension: Code(s): I10 - Essential (primary) hypertension Plan: Blood pressure stable and controlled on present treatment (2) Dyslipidemia: Code(s): E78.5 - Hyperlipidemia, unspecified Plan: Reviewed recent fasting lipid profile with patient with levels within normal limits . Continue rosuvastatin 5 mg taken 1 tablet 3 times a week , in addition to adherence to low-cholesterol diet and regular exercise, at least 30 minutes 3 to 4 times a week. Advised patient to make healthy food choices, eat more fruits, vegetables, whole grains, wild caught fish and low-fat dairy. Limit amount of meat and fried or fatty food products, as well as processed foods and fast foods. Follow-up scheduled with repeat fasting lipid panel in 5 months. (3) Type 2 diabetes mellitus with diabetic neuropathy, with long-term current use of insulin: Code(s): E11.40 - Type 2 diabetes mellitus with diabetic neuropathy, unspecified; Z79.4 - long-term (current) use of insulin Plan: Diabetes mellitus with acceptable control,, with hemoglobin A1c at 7.1. Continue with Lantus 20 units at bedtime, insulin lispro with mealtimes and Jardiance 10 mg daily in a.m. and metformin a 1000 mg 1 tablet twice a day. Return to clinic for follow-up and after fasting labs done in late January or early 03/07/2024. Increased gabapentin to 100 mg 1 tablet twice a day for her neuropathy (4) Moderate aortic stenosis: Code(s): I35.0 - Nonrheumatic aortic (valve) stenosis Plan: Followed by cardiology (5) Hx of congestive heart failure: Code(s): Z86.79 - Personal history of other diseases of the circulatory system (6) Anemia: Code(s): D64.9 - Anemia, unspecified Plan: Start taking ferrous sulfate 325 mg per tablet taken 1 tablet maybe 3 times a week initially to avoid constipation. (7) Congestive heart failure: Code(s): I50.9 - Heart failure, unspecified Qualifiers: Heart failure type: unspecified Heart failure chronicity: unspecified Qualified Code(s): I50.9 - Heart failure, unspecified Plan: Followed by Cardiology and scheduled for cardiac catheterization later this but. Orders: Orders Aspartate Amino Transferase 02/17/24 D64.9 - Anemia, unspecified, E11.40 - Type 2 diabetes mellitus with diabetic neuropathy, unspecified, E78.5 - Hyperlipidemia, unspecified, I10 - Essential (primary) hypertension, Z79.01 - long-term (current) use of anticoagulants, Z79.4 - long-term (current) use of insulin Vitamin D 25-OH Total 02/17/24 D64.9 - Anemia, unspecified, E11.40 - Type 2 diabetes mellitus with diabetic neuropathy, unspecified, E78.5 - Hyperlipidemia, unspecified, I10 - Essential (primary) hypertension, Z79.01 - intermediate teacher (current) use of anticoagulants, Z79.4 - intermediate teacher (current) use of insulin Complete Blood Count Auto Diff 02/17/24 D64.9 - Anemia, unspecified, E11.40 - Type 2 diabetes mellitus with diabetic neuropathy, unspecified, E78.5 - Hyperlipidemia, unspecified, I10 - Essential (primary) hypertension, Z79.01 - intermediate teacher (current) use of anticoagulants, Z79.4 - long-term (current) use of insulin IRON PROFILE 02/17/24 D64.9 - Anemia, unspecified, E11.40 - Type 2 diabetes mellitus with diabetic neuropathy, unspecified, E78.5 - Hyperlipidemia, unspecified, I10 - Essential (primary) hypertension, Z79.01 - long-term (current) use of anticoagulants, Z79.4 - intermediate teacher (current) use of insulin Alanine Aminotransferase 02/17/24 D64.9 - Anemia, unspecified, E11.40 - Type 2 diabetes mellitus with diabetic neuropathy, unspecified, E78.5 - Hyperlipidemia, unspecified, I10 - Essential (primary) hypertension, Z79.01 - intermediate teacher (current) use of anticoagulants, Z79.4 - long-term (current) use of insulin Basic Metabolic Panel Fasting 02/17/24 D64.9 - Anemia, unspecified, E11.40 - Type 2 diabetes mellitus with diabetic neuropathy, unspecified, E78.5 - Hyperlipidemia, unspecified, I10 - Essential (primary) hypertension, Z79.01 - long-term (current) use of anticoagulants, Z79.4 - intermediate teacher (current) use of insulin Lipid Panel 02/17/24 D64.9 - Anemia, unspecified, E11.40 - Type 2 diabetes mellitus with diabetic neuropathy, unspecified, E78.5 - Hyperlipidemia, unspecified, I10 - Essential (primary) hypertension, Z79.01 - long-term (current) use of anticoagulants, Z79.4 - long-term (current) use of insulin Microalbumin, Random (w Creat) 02/17/24 D64.9 - Anemia, unspecified, E11.40 - Type 2 diabetes mellitus with diabetic neuropathy, unspecified, E78.5 - Hyperlipidemia, unspecified, I10 - Essential (primary) hypertension, Z79.01 - intermediate teacher (current) use of anticoagulants, Z79.4 - long-term (current) use of insulin Medications: Changed From gabapentin 100 mg PO BID PRN Pain To gabapentin 100 mg PO BID 3 months 180 caps 1RF Pain Coding Level of Care Code Est Pt Level 4 (41019) Complex EM visit Add On G2211 Diagnoses Essential hypertension I10 Dyslipidemia E78.5 Type 2 diabetes mellitus with diabetic neuropathy, with long-term current use of insulin E11.40; Z79.4 Moderate aortic stenosis I35.0 Hx of congestive heart failure Z86.79 Anemia D64.9 Congestive heart failure, unspecified HF chronicity, unspecified heart failure type I50.9 Heart failure type: unspecified Heart failure chronicity: unspecified
== END 2023-09-18 14:31 | disposition home or self-care (01) ==
PROVIDERS: PCP Internal Medicine; Visit Provider Internal Medicine
DX: I11.0 Hypertensive heart disease with heart failure (principal); E11.40 Type 2 diabetes mellitus with diabetic neuropathy, unspecified; Z79.4 Long term (current) use of insulin; I50.9 Heart failure, unspecified; E78.5 Hyperlipidemia, unspecified; I35.0 Nonrheumatic aortic (valve) stenosis; Z86.79 Personal history of other diseases of the circulatory system; D64.9 Anemia, unspecified
CPT/HCPCS: 99214; G2211

== ENCOUNTER → 2023-10-09 23:59 | Outpatient (BNV) | payer MEDICARE, SELFPAY | PROVIDERS: PCP Internal Medicine; Visit Provider Internal Medicine Cardiovascular Disease | DX: I42.9 Cardiomyopathy, unspecified (principal) | CPT/HCPCS: 93458; 99152 ==

== ENCOUNTER → 2023-11-05 23:59 | Outpatient (BNV) | payer MEDICARE, SELFPAY ==
--- NOTE | 2023-11-07 08:27 | MHC.OFFVIS ---
Intake Visit Reasons: Remote device check- [employer] Allergies adhesive tape [Adhesive Tape] Allergy (Mild, Verified 09/19/23 01:39) CONTACT DERMATITIS cephalexin [CEPHALEXIN] Allergy (Unknown, Verified 09/19/23 01:39) SWELLING latex [Latex] Allergy (Unknown, Verified 09/19/23 01:39) RASH Biaxin Adverse Reaction (Intermediate, Verified 09/19/23 01:39) plapitations bacitracin [From Cortisporin] Adverse Reaction (Mild, Verified 09/19/23 01:39) EYE IRRITATION hydrocortisone [From Cortisporin] Adverse Reaction (Mild, Verified 09/19/23 01:39) EYE IRRITATION neomycin [From Cortisporin] Adverse Reaction (Mild, Verified 09/19/23 01:39) EYE IRRITATION flecainide [From Tambocor] Adverse Reaction (Unknown, Verified 09/19/23 01:39) HEART RACING lisinopril [LISINOPRIL] Adverse Reaction (Unknown, Verified 09/19/23 01:39) cough, nausea Sulfa (Sulfonamide Antibiotics) [SULFA(SULFONAMIDE ANTIBIOTICS)] Adverse Reaction (Unknown, Verified 09/19/23 01:39) PALPITATIONS [facility] Medical History (Updated 09/19/23 @ 01:50 by Patricia Nicole MD) Congestive heart failure Anemia Moderate aortic stenosis Diabetes mellitus Hypertension Nephrolithiasis Urinary tract infection Paroxysmal atrial fibrillation Cholelithiasis Renal cyst Pulmonary hypertension Non-rheumatic mitral regurgitation Permanent atrial fibrillation Right nephrolithiasis Compression deformity of vertebra Microcytic anemia Heartburn Atrophic vaginitis Osteopenia Osteoarthritis of knees, bilateral Essential hypertension Dyslipidemia Type 2 diabetes mellitus with diabetic neuropathy, with long-term current use of insulin Surgical History History of esophagogastroduodenoscopy (EGD) (~10/2022) History of lumbar discectomy History of lobectomy of lung History of hysterectomy History of total right knee replacement (TKR) Lumbar radiculopathy Family History Father Diabetes mellitus Mother Diabetes mellitus Myocardial infarction Sister Cancer Sister No problems noted. Son No problems noted. Daughter No problems noted. Social History Household Members: None Housing: House Do you presently have visiting nurse or other home services: No Alcohol intake: never Patient Tobacco Use Status: Never used Tobacco e-Cigarette/Vaping Use: Never Used service: No Current occupational status: retired Cognitive needs: No Hearing needs: Yes Vision needs: Yes Office Procedures Cardiac Device Check Cardiac Device Check Details: Date of service- 11/05/2023 ; Battery life >11 years; normal lead parameters; [employer] 98%; no significant arrhythmias. Overall normal device function. [id number] Cardiac Device Interrogation, pacemaker Procedure code (CPT) selection complete Assessment & Plan Assessment & Plan (1) LBBB (left bundle branch block): Code(s): I44.7 - Left bundle-branch block, unspecified Category: Medical Plan x Coding Level of Care Code Procedure Only Diagnoses LBBB (left bundle branch block) I44.7 CPT Codes Cardiac Device Check - Cardiac Device 12: [id number] Cardiac Device Interrogation, pacemaker ([id number])
== END ==
PROVIDERS: PCP Internal Medicine; Visit Provider Internal Medicine
DX: I44.7 Left bundle-branch block, unspecified (principal); Z95.0 Presence of cardiac pacemaker
CPT/HCPCS: 93294

== ENCOUNTER 2023-11-26 13:39 | Outpatient (AMB) | payer MEDICARE, SELFPAY ==
[2023-11-26 14:13] VITALS: BP 122/68; PULSE 68; BMI 27.1
--- NOTE | 2023-11-26 14:13 | MHC.OFFVIS ---
Vital Signs 11/26/23 14:13 Height 5 ft 4 in Weight 158 lb BMI 27.1 BP 122/68 Blood Pressure Location Lt brachial Position Sitting Pulse 68 Pulse Source Pulse Oximeter Intake Visit Reasons: 6 mth f/up DC Allergies adhesive tape [Adhesive Tape] Allergy (Mild, Verified 09/19/23 01:39) CONTACT DERMATITIS cephalexin [CEPHALEXIN] Allergy (Unknown, Verified 09/19/23 01:39) SWELLING latex [Latex] Allergy (Unknown, Verified 09/19/23 01:39) RASH Biaxin Adverse Reaction (Intermediate, Verified 09/19/23 01:39) plapitations bacitracin [From Cortisporin] Adverse Reaction (Mild, Verified 09/19/23 01:39) EYE IRRITATION empagliflozin [From Jardiance] Adverse Reaction (Mild, Verified 11/07/23 15:10) Unwell hydrocortisone [From Cortisporin] Adverse Reaction (Mild, Verified 09/19/23 01:39) EYE IRRITATION neomycin [From Cortisporin] Adverse Reaction (Mild, Verified 09/19/23 01:39) EYE IRRITATION flecainide [From Tambocor] Adverse Reaction (Unknown, Verified 09/19/23 01:39) HEART RACING lisinopril [LISINOPRIL] Adverse Reaction (Unknown, Verified 09/19/23 01:39) cough, nausea Sulfa (Sulfonamide Antibiotics) [SULFA(SULFONAMIDE ANTIBIOTICS)] Adverse Reaction (Unknown, Verified 09/19/23 01:39) PALPITATIONS Medication List - Last Reconciled 11/26/23 by Geoff Callahan MD apixaban (Eliquis) 5 mg PO BID coenzyme Q10 (CoQ-10) 100 mg PO DAILY docusate sodium (Colace) 100 mg PO DAILY PRN furosemide (Lasix) 40 mg PO DAILY gabapentin 100 mg PO DAILY insulin glargine (Lantus Solostar U-100 Insulin) 12 units subcut BEDTIME insulin lispro (Humalog KwikPen U-200 Insulin) 2 - 12 units subcut USEASDIRECTD loratadine (Wal-itin) 10 mg PO DAILY losartan 50 mg PO DAILY metformin 1,000 mg PO BID metoprolol succinate ER 25 mg PO DAILY pantoprazole 40 mg PO DAILY@0630 pen needle, diabetic (BD Ultra-Fine Mini Pen Needle) As directed QID ac and hs rosuvastatin 5 mg PO MOWEFR 90 days spironolactone 25 mg PO DAILY vit C,W-Es-qrjhw-lutein-zeaxan 250-90-40-1 mg (PreserVision AREDS-2) 1 tab PO BID HPI Comments Details: Aminah returns for follow-up. Because of recurring episodes of pulmonary edema, she underwent cardiac catheterization. In fact even during the catheterization attempt she developed pulmonary edema it was delayed by a few days. Any case, there was no significant CAD. Then underwent AV node ablation followed by conduction system pacing. Overall, she states she is actually doing quite good. No new complaints. Some improvement in his shortness of breath. Otherwise, history of chronic atrial fibrillation/hypertension. [facility] Medical History (Updated 11/26/23 @ 16:17 by Geoff Callahan MD) Congestive heart failure Anemia Moderate aortic stenosis Diabetes mellitus Hypertension Nephrolithiasis Urinary tract infection Paroxysmal atrial fibrillation Cholelithiasis Renal cyst Pulmonary hypertension Non-rheumatic mitral regurgitation Permanent atrial fibrillation Right nephrolithiasis Compression deformity of vertebra Microcytic anemia Heartburn Atrophic vaginitis Osteopenia Osteoarthritis of knees, bilateral Essential hypertension Dyslipidemia Type 2 diabetes mellitus with diabetic neuropathy, with long-term current use of insulin Surgical History History of esophagogastroduodenoscopy (EGD) (~10/2022) History of lumbar discectomy History of lobectomy of lung History of hysterectomy History of total right knee replacement (TKR) Lumbar radiculopathy Family History Father Diabetes mellitus Mother Diabetes mellitus Myocardial infarction Sister Cancer Sister No problems noted. Son No problems noted. Daughter No problems noted. Social History Household Members: None Housing: House Do you presently have visiting nurse or other home services: No Alcohol intake: never Patient Tobacco Use Status: Never used Tobacco e-Cigarette/Vaping Use: Never Used service: No Current occupational status: retired Cognitive needs: No Hearing needs: Yes Vision needs: Yes Review of Systems Const Denies weakness ENT Denies dizziness Card Denies chest pain, Denies chest pain with activity, Denies syncope, Denies rapid heart rate, Denies pedal edema, Denies edema, Denies leg edema, Denies lightheadedness, Denies palpitations, Denies dyspnea, Denies dyspnea on exertion and Denies orthopnea Resp Denies cough, Denies dyspnea and Denies dyspnea on exertion GI Denies hematochezia and Denies change in stool character Musc Denies abnormal gait, Denies muscle cramps, Denies muscle weakness, Denies numbness, Denies radiating pain into limb and Denies tingling Neuro Denies abnormal gait, Denies dizziness, Denies syncope, Denies numbness, Denies tingling and Denies weakness Endo Denies palpitations Physical Exam Vital Signs: Last Vital Signs Pulse 11/26/23 14:13 BP 122/68 11/26/23 14:13 BMI result Body Mass Index 27.1 Const General: comfortable and no acute distress Orientation/consciousness: patient oriented x3 HEENT Other: Unremarkable Head: Yes normal to inspection Neck Neck: Yes normal visual inspection Chest Chest palpation & inspection: normal inspection of the chest Resp Auscultation: clear to auscultation bilaterally Cardio Palpation: normal PMI Heart sounds: S1 normal heart sound present, S2 normal heart sound present, no gallops, Murmur heart sound present systolic II/ and at the right sternal border and no rubs GI Palpation (GI): Soft to palpation Back/Spine/Pelvis Other: unremarkable Skin General skin exam: no rashes or lesions noted Neuro General: patient oriented x3 Extrem General: Yes normal to inspection Psych Mental Status: mental status grossly normal Office Procedures Cardiac Device Check Cardiac Device Check Details: Pacemaker interrogated today. Single-chamber device, programmed VVIR. Battery status 11.6 years. Normal lead parameters. Lower rate set at 80/Min. V pacing 98%. [id number] Cardiac Device Check, leadless/single lead pacemaker Procedure code (CPT) selection complete Assessment & Plan Assessment & Plan (1) Chronic combined systolic and diastolic CHF (congestive heart failure): Code(s): I50.42 - Chronic combined systolic (congestive) and diastolic (congestive) heart failure Category: Medical Plan: LVEF on the last echocardiogram from August-35%. Cardiac catheterization with no significant CAD. Clinically, she seems euvolemic. Continue current meds including metoprolol ER, losartan, Lasix, spironolactone. Did not like Jardiance due to side effects. (2) LBBB (left bundle branch block): Code(s): I44.7 - Left bundle-branch block, unspecified Category: Medical Plan: Status post conduction system pacing. (3) Non-rheumatic aortic stenosis: Code(s): I35.0 - Nonrheumatic aortic (valve) stenosis Category: Medical Plan: In the recent echocardiogram, aortic valve moderately calcified with moderate stenosis. In the cardiac catheterization, no significant gradient across aortic valve pullback. Can monitor for now. (4) Permanent atrial fibrillation: Code(s): I48.21 - Permanent atrial fibrillation Category: Medical Plan: Continue Eliquis. (5) Essential hypertension: Code(s): I10 - Essential (primary) hypertension Category: Medical Plan: Stable. No changes. Home diary also reviewed. (6) Pacemaker: Code(s): Z95.0 - Presence of cardiac pacemaker Category: Medical Plan: Functioning normally. Discussed with Dr. Pritchard. Advised to keep lower rate at 80/min for the time being. In about 2 months from AVN ablation, can decrease to 60/Min. Plan Discussed with family who came for appointment. Coding Level of Care Code Est Pt Level 4 (96403) Diagnoses Chronic combined systolic and diastolic CHF (congestive heart failure) I50.42 LBBB (left bundle branch block) I44.7 Non-rheumatic aortic stenosis I35.0 Permanent atrial fibrillation I48.21 Essential hypertension I10 Pacemaker Z95.0 CPT Codes Cardiac Device Check - Cardiac Device 1: [id number] Cardiac Device Check, leadless/single lead pacemaker ([id number])
== END 2023-11-26 14:52 | disposition home or self-care (01) ==
PROVIDERS: PCP Internal Medicine; Referring Provider Internal Medicine; Visit Provider Internal Medicine
DX: I50.42 Chronic combined systolic (congestive) and diastolic (congestive) heart failure (principal); I44.7 Left bundle-branch block, unspecified; I35.0 Nonrheumatic aortic (valve) stenosis; I48.21 Permanent atrial fibrillation; I10 Essential (primary) hypertension; Z95.0 Presence of cardiac pacemaker
CPT/HCPCS: 93279; 99214

== ENCOUNTER → 2023-11-26 13:39 | Outpatient (BNVA) | payer MEDICARE, SELFPAY | PROVIDERS: PCP Internal Medicine; Visit Provider Internal Medicine | DX: I11.0 Hypertensive heart disease with heart failure (principal); I50.42 Chronic combined systolic (congestive) and diastolic (congestive) heart failure; I44.7 Left bundle-branch block, unspecified; I35.0 Nonrheumatic aortic (valve) stenosis; I48.21 Permanent atrial fibrillation; Z45.018 Encounter for adjustment and management of other part of cardiac pacemaker | CPT/HCPCS: 99212 ==

== ENCOUNTER 2023-12-01 13:04 | Outpatient (AMB) | payer MEDICARE, SELFPAY ==
--- NOTE | 2023-12-01 13:05 | AM.OFFWIN_ITS ---
Intake Vital Signs 12/01/23 13:08 Height 5 ft 4 in Weight 158 lb BMI 27.1 BP 160/90 H Blood Pressure Location Lt brachial Position Sitting Pulse 92 Pulse Source Pulse Oximeter Pulse Oximetry (%) 98 Oxygen Delivery Method Room Air Intake Visit Reasons: EP RT upper breast area pain front and back side Intake Note: Patient here for right breast pain that has been present for 3 days. Patient Tobacco Use Status: Never used Tobacco Accompanied by: Sister Allergies adhesive tape [Adhesive Tape] Allergy (Mild, Verified 12/01/23 14:27) CONTACT DERMATITIS cephalexin [CEPHALEXIN] Allergy (Unknown, Verified 12/01/23 14:27) SWELLING latex [Latex] Allergy (Unknown, Verified 12/01/23 14:27) RASH Biaxin Adverse Reaction (Intermediate, Verified 12/01/23 14:27) plapitations bacitracin [From Cortisporin] Adverse Reaction (Mild, Verified 12/01/23 14:27) EYE IRRITATION empagliflozin [From Jardiance] Adverse Reaction (Mild, Verified 12/01/23 14:27) Unwell hydrocortisone [From Cortisporin] Adverse Reaction (Mild, Verified 12/01/23 14:27) EYE IRRITATION neomycin [From Cortisporin] Adverse Reaction (Mild, Verified 12/01/23 14:27) EYE IRRITATION flecainide [From Tambocor] Adverse Reaction (Unknown, Verified 12/01/23 14:27) HEART RACING lisinopril [LISINOPRIL] Adverse Reaction (Unknown, Verified 12/01/23 14:27) cough, nausea Sulfa (Sulfonamide Antibiotics) [SULFA(SULFONAMIDE ANTIBIOTICS)] Adverse Reaction (Unknown, Verified 12/01/23 14:27) PALPITATIONS Do you need a note to return to daycare/school/sports/work: No HPI HPI Comments History of Present Illness Details 83 y/o female patient who presents to [facility] in clinic with c/o right sided thoracic region pain that radiates to the right upper chest. Reports that Pain started 4-5 days ago. Reports that it hurts with breathing, leaning back or forward. Tender to touch and pain is sharp in nature. [facility] Medical History (Updated 11/26/23 @ 16:17 by Geoff Callahan MD) Congestive heart failure Anemia Moderate aortic stenosis Diabetes mellitus Hypertension Nephrolithiasis Urinary tract infection Paroxysmal atrial fibrillation Cholelithiasis Renal cyst Pulmonary hypertension Non-rheumatic mitral regurgitation Permanent atrial fibrillation Right nephrolithiasis Compression deformity of vertebra Microcytic anemia Heartburn Atrophic vaginitis Osteopenia Osteoarthritis of knees, bilateral Essential hypertension Dyslipidemia Type 2 diabetes mellitus with diabetic neuropathy, with long-term current use of insulin Surgical History History of esophagogastroduodenoscopy (EGD) (~10/2022) History of lumbar discectomy History of lobectomy of lung History of hysterectomy History of total right knee replacement (TKR) Lumbar radiculopathy Family History Father Diabetes mellitus Mother Diabetes mellitus Myocardial infarction Sister Cancer Sister No problems noted. Son No problems noted. Daughter No problems noted. Social History Household Members: None Housing: House Do you presently have visiting nurse or other home services: No Alcohol intake: never Patient Tobacco Use Status: Never used Tobacco e-Cigarette/Vaping Use: Never Used Advance Directives: Yes Advance Directives on File: Yes Advance Directives Date on File: 06/20/23 Do you have a plan to hurt others: No Plan service: No Current occupational status: retired Cognitive needs: No Hearing needs: Yes Vision needs: Yes Physical Exam Vital Signs: Last Vital Signs Pulse 92 12/01/23 13:08 BP 160/90 H 12/01/23 13:08 Pulse Ox 98 12/01/23 13:08 Oxygen Delivery Method Room Air 12/01/23 13:08 BMI result Body Mass Index 27.1 Const General: cooperative and no acute distress; No comfortable Nutritional Appearance: obese Orientation/consciousness: patient oriented x3 Resp Effort & Inspection: normal respiratory effort Auscultation: clear to auscultation bilaterally Cardio Heart sounds: S1 normal heart sound present and S2 normal heart sound present GI Inspection: Yes distended and Yes Abdominal panniculus present Palpation (GI): Soft to palpation, not firm, nontender, no guarding, not rigid and No hepatosplenomegaly present Auscultation: normal bowel sounds Back/Spine/Pelvis Cervical Spine: cervical muscular tenderness and Cervical spine tenderness Thoracic/Lumbar Spine: pain with thoraco-lumbar ROM, thoraco-lumbar spasm and thoracic spinal tenderness Neuro Other: Walks with a walker General: patient oriented x3 and moves all extremities Psych Speech and movement: Normal speech and movement present Assessment & Plan Assessment & Plan (1) Right-sided thoracic back pain: Code(s): M54.6 - Pain in thoracic spine Qualifiers: Chronicity: acute Qualified Code(s): M54.6 - Pain in thoracic spine Plan: Pain worked into the clinic with severe pain and very uncomfortable. Reports tenderness to the right thoracic back pain. Vitals are stable, but Pt appears to be in so much pain. Advised her and sister to go to ED for further management. Coding Level of Care Code Est Pt Level 3 (17763) Diagnoses Acute right-sided thoracic back pain M54.6 Chronicity: acute Time Spent (min) 15
[2023-12-01 13:08] VITALS: BP 160/90; PULSE 92; O2SAT 98; BMI 27.1
== END 2023-12-01 13:57 | disposition home or self-care (01) ==
PROVIDERS: PCP Internal Medicine; Visit Provider Nurse Practitioner Family
DX: M54.6 Pain in thoracic spine (principal)
CPT/HCPCS: 99213

== ENCOUNTER 2023-12-01 14:16 | Emergency (ER) | payer MEDICARE, SELFPAY ==
--- NOTE | ~2023-12-01 | XR_ITS ---
EXAMINATION: XR CHEST CLINICAL INFORMATION: Pain COMPARISON: Chest x-ray September 01, 2023 TECHNIQUE: 2 views of the chest were obtained. FINDINGS: Stable mild cardiac enlargement. Interval insertion of single lead pacemaker. The lungs are mildly hyperinflated. Numerous surgical changes are again noted projecting over the right lung. There is no gross lobar consolidation. Similar blunting of right costophrenic angle consistent with volume loss and possibly a tiny amount of fluid. No pneumothorax. Diffuse osteopenia with degenerative changes of the spine. severe compression deformity of a mid thoracic vertebral body. With old compression deformities of the T11 and T12 vertebral bodies. XR/XR chest 2V IMPRESSION: 1. Postsurgical changes of the right lung. No acute pulmonary pathology. 2. Severe compression deformity of a mid thoracic vertebral body. Electronically signed by: Jerry Phillips MD 12/01/2023 03:39 PM EDT
--- NOTE | ~2023-12-01 | CT_ITS ---
EXAMINATION: CT CHEST, ABDOMEN AND PELVIS WITH CONTRAST CLINICAL INFORMATION: Chest pain with breathing and abdominal discomfort COMPARISON: CT abdomen and pelvis 08/30/2023, ultrasound abdomen 07/13/2023 TECHNIQUE: Multidetector volumetric imaging was performed from the thoracic inlet through the pubic symphysis following administration of 85 mL of Omnipaque 350. Sagittal and coronal reformatted images were obtained on the technologist's workstation. This CT examination was performed using dose optimization techniques as appropriate, variously including the following: *Automated exposure control *Adjustment of mA and/or kV according to patient size (this includes techniques or standardized protocols for targeted exams where dose is matched to indication/reason for exam; i.e. extremities or head) *Use of iterative reconstruction technique DLP: 243 and 612 mGy-cm FINDINGS: CHEST: Lung: The lungs are clear without focal opacity or nodule. Mediastinum: There is mild cardiac enlargement. An aberrant right subclavian artery is seen passing behind the esophagus. The central vascular structures are otherwise unremarkable. No central or large segmental pulmonary emboli seen. No hilar or mediastinal lymphadenopathy. Coronary Artery Calcium: Moderate Pericardium/Pleura: No significant effusion. No pleural mass or thickening. Chest Wall/Axilla: Left chest wall single lead pacemaker with leads in good position. ABDOMEN/PELVIS: Peritoneal Space: No significant free air or free fluid identified. Liver, Gallbladder, Biliary Tree: The liver is normal in size, shape, and attenuation. No focal hepatic lesion or biliary ductal dilatation is present. The gallbladder contains a large calcified 2.2 cm calculus without pericholecystic inflammatory changes. Pancreas: Unremarkable Spleen: Unremarkable Adrenal Glands: Unremarkable Kidneys and Ureters: The kidneys are normal in size, shape, and attenuation. There is a 1 cm stone in the mid right kidney which measures 718 Hounsfield units and 9.8 cm from the posterior axillary line. A few additional punctate nonobstructing right calculi are seen. No left-sided calculi. No hydronephrosis or hydroureter. No perinephric stranding. Multiple bilateral benign Bosniak class I renal cysts are noted along with a single hyperattenuating Bosniak class II 1.5 cm cortical mass at the upper pole of the left kidney (only cysts were seen in this region on renal ultrasound, no solid masses). No solid renal masses are seen. Bladder: Empty but unremarkable Gastrointestinal Tract: There is extensive colonic diverticulosis without diverticulitis. The small and large bowel are otherwise unremarkable. No evidence of appendicitis. Abdominal Wall: No significant hernia is appreciated. Lymph Nodes: No lymphadenopathy. Vascular: Calcific atherosclerotic changes are present in the aorta and iliofemoral vessels. There is no evidence of an abdominal aortic aneurysm.. The IVC appears unremarkable. PELVIC VISCERA: The uterus is not seen. An abnormal adnexal mass is not detected. No free intraperitoneal fluid is present. OSSEUS STRUCTURES: Severe degenerative changes are noted throughout the spine. Compression fracture with anterior wedging of T11. No bony destructive lesions are seen. CT/CT abdomen pelvis w IV con IMPRESSION: 1. A cause for the patient's chest pain and abdominal pain has not been found. 2. Incidental note made of mild cardiomegaly, aberrant right subclavian artery, cholelithiasis, right-sided nonobstructing renal calculi, colonic diverticulosis without diverticulitis and severe degenerative changes in the spine with compression fracture T11. Fleischner guidelines were followed. Electronically signed by: Jordy Toribio MD 12/01/2023 11:34 PM EDT
--- NOTE | 2023-12-01 14:21 | ED.BACK ---
HPI - Back Pain/Injury General Chief Complaint: Abdominal Pain Stated Complaint: r sided back pain sent from urgent care Time Seen by Provider: 12/01/23 17:33 Source: patient and family Mode of arrival: ambulatory Limitations: no limitations History of Present Illness ED Provider: Deandre GIRALDO HPI Narrative: This is an 83-year-old female history of diabetes, congestive heart failure, anemia, aortic stenosis, hypertension, paroxysmal atrial fibrillation on anticoagulation, cholelithiasis, pulmonary hypertension, nonrheumatic mitral regurgitation, compression deformity of vertebrae, dyslipidemia presenting to the emergency department with complaints of right-sided mid back pain/right scapular pain that radiates to the front just below the breast for the past 4 days, this pain is atraumatic in nature. She reports 10/06/2023 she had a pacer placed without complications. She tells me she is feeling clammy and sweaty intermittently throughout the day. She denies fevers, chills, nausea, vomiting, shortness of breath, anterior chest pain, headache, vision changes, dizziness and weakness Related Data Home Medications ?Medication ?Instructions ?Recorded ?Confirmed coenzyme Q10 100 mg capsule 100 mg PO DAILY 04/28/22 11/26/23 (CoQ-10) docusate sodium 100 mg capsule 100 mg PO DAILY PRN Constipation 08/30/23 11/26/23 (Colace) loratadine 10 mg tablet (Wal-itin) 10 mg PO DAILY 08/30/23 11/26/23 vit C 250 mg-vit E 90 mg-zinc 40 1 tab PO BID 08/30/23 11/26/23 mg-copper 1 [id number] capsule (PreserVision AREDS-2) insulin lispro 200 unit/mL (3 mL) 2 - 12 unit subcut USEASDIRECTD 11/05/23 11/26/23 subcutaneous pen (Humalog KwikPen U-200 Insulin) insulin glargine 100 unit/mL (3 12 unit subcut BEDTIME 11/07/23 11/26/23 mL) subcutaneous pen (Lantus Solostar U-100 Insulin) Previous Rx's ?Medication ?Instructions ?Recorded metformin 1,000 mg tablet 1,000 mg PO BID #20 tabs 03/16/23 pen needle, diabetic 31 gauge x #360 ea 03/28/2306/01 (BD Ultra-Fine Mini Pen Needle) losartan 50 mg tablet 50 mg PO DAILY #90 tabs 07/10/23 metoprolol succinate 25 mg 25 mg PO DAILY #90 tabs 07/10/23 tablet,extended release 24 hr rosuvastatin 5 mg tablet 5 mg PO MOWEFR 90 days #39 tabs 07/10/23 pantoprazole 40 mg tablet,delayed 40 mg PO DAILY@0630 #90 tabs 10/12/23 release spironolactone 25 mg tablet 25 mg PO DAILY #90 tabs 10/12/23 apixaban 5 mg tablet (Eliquis) 5 mg PO BID #180 tabs 10/30/23 furosemide 40 mg tablet (Lasix) 40 mg PO DAILY #90 tabs 11/12/23 gabapentin 100 mg capsule 100 mg PO BEDTIME #90 caps 11/29/23 morphine 15 mg immediate release 15 mg PO Q6H PRN pain 5 days #10 12/02/23 tablet tabs Allergies Allergy/AdvReac Type Severity Reaction Status Date / Time adhesive tape [Adhesive Tape] Allergy Mild CONTACT Verified 12/01/23 14:27 DERMATITIS cephalexin [CEPHALEXIN] Allergy Unknown SWELLING Verified 12/01/23 14:27 latex [Latex] Allergy Unknown RASH Verified 12/01/23 14:27 Biaxin AdvReac Intermediate plapitation Verified 12/01/23 14:27 s bacitracin [From Cortisporin] AdvReac Mild EYE Verified 12/01/23 14:27 IRRITATION empagliflozin AdvReac Mild Unwell Verified 12/01/23 14:27 [From Jardiance] hydrocortisone AdvReac Mild EYE Verified 12/01/23 14:27 [From Cortisporin] IRRITATION neomycin [From Cortisporin] AdvReac Mild EYE Verified 12/01/23 14:27 IRRITATION flecainide [From Tambocor] AdvReac Unknown HEART Verified 12/01/23 14:27 RACING lisinopril [LISINOPRIL] AdvReac Unknown cough, Verified 12/01/23 14:27 nausea Sulfa (Sulfonamide AdvReac Unknown PALPITATION Verified 12/01/23 14:27 Antibiotics) S [SULFA(SULFONAMIDE ANTIBIOTICS)] Review of Systems Review of Systems: Yes all other systems are reviewed and are negative PMFSH Past Medical History Attestation statement: The following information was validated with the patient. Source: old records reviewed and nursing notes reviewed Medical History Congestive heart failure Anemia Moderate aortic stenosis Diabetes mellitus Hypertension Nephrolithiasis Urinary tract infection Paroxysmal atrial fibrillation Cholelithiasis Renal cyst Pulmonary hypertension Non-rheumatic mitral regurgitation Permanent atrial fibrillation Right nephrolithiasis Compression deformity of vertebra Microcytic anemia Heartburn Atrophic vaginitis Osteopenia Osteoarthritis of knees, bilateral Essential hypertension Dyslipidemia Type 2 diabetes mellitus with diabetic neuropathy, with long-term current use of insulin Surgical History History of esophagogastroduodenoscopy (EGD) (~10/2022) History of lumbar discectomy History of lobectomy of lung History of hysterectomy History of total right knee replacement (TKR) Lumbar radiculopathy Family History Family History Father Diabetes mellitus Mother Diabetes mellitus Myocardial infarction Sister Cancer Sister No problems noted. Son No problems noted. Daughter No problems noted. Social History Social History Household Members: None Housing: House Do you presently have visiting nurse or other home services: No Unable to assess alcohol history related to: Unable to respond Alcohol intake: never Patient Tobacco Use Status: Never used Tobacco Smoked in Last 30 Days: No e-Cigarette/Vaping Use: Never Used Use of substances other than those prescribed or required for medical reasons: No Advance Directives: Yes Advance Directives on File: Yes Advance Directives Date on File: 06/20/23 Do you have a plan to hurt others: No Plan service: No Current occupational status: retired Cognitive needs: No Hearing needs: Yes Vision needs: Yes Physical Exam Vital Signs: Vital Signs: Last Vital Signs Temp 98.5 F 12/01/23 19:19 Pulse 80 12/01/23 19:19 Resp 18 12/01/23 21:03 BP 106/42 L 12/01/23 19:19 Pulse Ox 96 12/01/23 19:19 O2 Del Method Room Air 12/01/23 19:19 BMI result Body Mass Index 26.3 vss Appearance: Alert.? Oriented X3.? No acute distress.? Head: Normocephalic, atraumatic, no step-offs or deformities Eyes: Pupils equal, round and reactive to light.? Neck: Normal inspection.? Neck supple.? CVS: Normal heart rate and rhythm.? Pulses normal.?discomfort with palpation of right scapula posteriorly and anterior chest Respiratory: No respiratory distress.? Breath sounds normal.? Abdomen: Soft and diffuse tenderness .? Skin: Skin warm and dry.? Normal skin color.? Normal skin turgor.? Extremities: No lower extremity edema.? No calf ttp. 5/5 strength to bilateral upper and lower extremities Back: No midline tenderness, no C-spine tenderness, full range of motion, no CVA tenderness bilaterally Neuro: Oriented X 3.? No motor deficit.? No sensory deficit. CN 2-12 intact Course Course Course Narrative: This is an RME performed by Jose D Bull PRODUCT DELIVERY SPECIALIST: Additional HPI, ROS, PE not included below will be deferred to primary provider. Patient is an 83 year old female who presents to the emergency department for evaluation. She reports right mid back pain pointing to the subscapular region, pain radiates around to the front just below the breast with onset 4 days ago. Pain was more severe, today has had some improvement with Tylenol. She feels clammy at times and having sweats. Admits to a history of gallstones. Denies nausea or vomiting. Denies shortness of breath or anterior chest pain. Had a pacemaker placed in September of 2023. She uses a wheeled walker at baseline for ambulation. Noted to be ambulating with slow steady gait. She was evaluated at the walk-in clinic associated with [facility] prior to arrival and referred to the emergency department Plan: Serum labs, urinalysis, ABD ultrasound Reevaluation(s) Reevaluation #1: CBC with no acute findings needing intervention. Chemistry with no acute electrolyte abnormalities. Patient's troponin negative x3, nonischemic EKG not having chest pain or shortness of breath this time. D-dimer negative unlikely PE. Lipase normal. CT chest, abdomen and pelvis with cause of patient's chest pain and abdominal pain not found. Mild cardiomegaly noted, aberrant right subclavian artery, cholelithiasis however negative Barraza sign unlikely acute cholecystitis right-sided nonobstructing renal calculi, colonic diverticulosis without diverticulitis and severe degenerative changes in the spine with compression fracture of T11. Patient to be discharged home with p.o. pain meds, Lidoderm patch. Educated patient on diagnosis and treatment plan, answered all question, patient verbalizes understanding. At this time patient will be discharged home, advised to return with new or worsening symptoms. Educated on worrisome signs and symptoms and when to return. At this time I feel comfortable discharge home. Time: 00:18 Medications Administered Discontinued Medications Generic Name Dose Route Start Last Admin Trade Name Heaven PRN Reason Stop Dose Admin Iohexol 85 ml 12/01/23 19:49 12/01/23 19:50 Iohexol 350 Mg/Ml 100 Ml Infus..Btl IV 12/01/23 19:50 85 ml ONCE ONE Administration Morphine Sulfate 4 mg 12/01/23 19:59 12/01/23 21:03 Morphine Sulfate 4 Mg/Ml Cartridge IVPUSH 12/01/23 20:00 4 mg ONCE ONE Administration Protocol Medical Decision Making Medical Decision Making [facility] Narrative: 83-year-old female presents with mid back pain with radiation to the anterior chest/below the right breast. Physical exam home discomfort with palpation of right scapula posteriorly and anterior chest, diffuse abd discomfort History and physical exam concerning for noncardiac related chest pain versus costochondritis versus muscle strain or sprain. Less likely PE, ACS, dissection, acute respiratory distress, CHF. Will rule out metabolic derangements. Plan labs, imaging Differential Diagnosis Differential Diagnoses: The differential diagnosis associated with the presentation includes History and physical exam concerning for noncardiac related chest pain versus costochondritis versus muscle strain or sprain. Less likely PE, ACS, dissection, acute respiratory distress, CHF. Will rule out metabolic derangements. Admission/Observation Consideration of admission/observation: Escalation of care including admission/observation considered Possible Lab Data [facility] Lab Attestation statement: I reviewed the patient's lab results. 12/01/23 14:49 12/01/23 14:49 Labs: Lab Results 12/01/23 12/01/23 12/01/23 Range/Units 14:49 14:53 20:44 WBC 8.6 (4.8-10.8) X10*3/uL RBC 4.45 (4.20-5.50) X10*6/uL Hgb 12.0 (12.0-16.0) g/dl Hct 35.9 L (37.0-47.0) % MCV 80.7 (80.0-98.0) fL MCH 27.0 (27.0-33.0) pg MCHC 33.4 (31.0-35.0) g/dl RDW 15.9 (11.0-16.0) % Plt Count 238 (160-400) X10*3/uL MPV 9.4 (9.4-12.3) fL Immature Gran % (Auto) 0.3 (0.0-0.4) % Neut % (Auto) 72.4 (45-73) % Lymph % (Auto) 14.6 L (20-40) % [place] % (Auto) 11.3 H (2-11) % Eos % (Auto) 0.9 (0-4) % Baso % (Auto) 0.5 (0-2) % Lymph # (Auto) 1.3 (1.2-4.9) X10*3/uL [place] # (Auto) 1.0 (0.1-1.2) X10*3/uL Eos # (Auto) 0.1 (0.0-0.4) X10*3/uL Baso # (Auto) 0.0 (0.0-0.2) X10*3/uL Abs Immat Gran (auto) 0.03 (0.00-0.03) X10*3/uL Absolute Neuts (auto) 6.2 (2.0-8.3) x10*3/uL Absolute Nucleated RBC 0.000 (0.0-0.012) X10*3/uL Nucleated RBC % (auto) 0.0 (0.0-0.2) /100WBC PT 17.5 H (11.1-13.3) SEC INR 1.4 H (0.9-1.1) D-Dimer High Sensitivty < 150 NG/ML Sodium 136 (135-145) mmol/L Potassium 4.8 (3.3-5.1) mmol/L Chloride 101 (96-108) mmol/L Carbon Dioxide 21 L (22-29) mmol/L Anion Gap 19 (12-20) BUN 20 H (9-16) mg/dL Creatinine 0.97 (0.5-1.4) mg/dL Estim Creat Clear Calc 40.9 Estimated GFR 55 Random Glucose 162 H (60-115) mg/dL Calcium 10.4 H (8.4-10.2) mg/dL Magnesium 2.2 (1.6-2.6) mg/dL Total Bilirubin 0.6 (0.0-1.0) mg/dL AST 15 (5-31) U/L ALT 8 (0-31) U/L Alkaline Phosphatase 66 (39-117) U/L Troponin I High Sens 8.6 D 10.3 (<3.5-17.0) ng/L Total Protein 8.3 H (6.5-8.0) g/dL Albumin 4.3 (3.5-5.0) g/dL Lipase 38 (8-78) U/L Urine Color Yellow Urine Appearance Clear Urine pH 6.0 (5.0-9.0) Ur Specific [place] <= 1.005 (1.005-1.025) Urine Protein Negative (Neg-Trace) mg/dL Urine Glucose (UA) Negative (Negative) mg/dL Urine Ketones Negative (Negative) mg/dL Urine Blood Negative (Negative) Urine Nitrite Negative (Negative) Ur Leukocyte Esterase Large (3+) H (Negative) Urine RBC 0-2 (0-2) /HPF Urine WBC >50 H (0-5) /HPF Ur Squamous Epith Cells 0-2 (0-2) /HPF Urine Bacteria 4+ (None Seen) Hyaline Casts 0-2 (0-2) /LPF Critical Care Time Critical Care Time Critical Care Time: Yes Total Critical Care Time: 35 Attestation: I attest to this time spent taking care of the patient, obtaining history, physical, reviewing labs, imaging, treatment of patients condition +/- specialist/hospitalist consult Discharge Plan Discharge Clinical Impression: Non-traumatic compression fracture of eleventh thoracic vertebra, Epigastric pain Patient Disposition: Home, Self-Care Instructions: Epigastric Pain (ED) Additional Instructions: Take your medications as prescribed. If you were prescribed antibiotics today, it is important that you take your medication to their entirety, do not skip any doses, do not finish them early. Follow-up with your primary care provider this week. Return to the emergency department with new or worsening symptoms. Such as fevers, chills, chest pain, shortness of breath, nausea, vomiting, dizziness, headache, vision changes, lethargy In case of emergency call 911 CT/CT abdomen pelvis w IV con IMPRESSION: 1. A cause for the patient's chest pain and abdominal pain has not been found. 2. Incidental note made of mild cardiomegaly, aberrant right subclavian artery, cholelithiasis, right-sided nonobstructing renal calculi, colonic diverticulosis without diverticulitis and severe degenerative changes in the spine with compression fracture T11. Fleischner guidelines were followed. A narcotic has been sent to your pharmacy please take this as prescribed. Do not take more than the prescribed dose. Narcotic medications can cause addiction. Please do not mix them with alcohol. Do not take them while driving or operating machinery. Do not take them with any other narcotics. Do not share them with friends or family. They can cause constipation. Take them only for severe pain. Apply Lidoderm patch on affected area. You can take Tylenol or ibuprofen for [id number] pain. Ibuprofen every 6 hours, Tylenol every 4 as needed for pain or discomfort. Do not exceed maximum daily dose as listed on packaging. Narcotic or morphine only to be taken for severe pain. Prescriptions: New morphine 15 mg tablet 15 mg PO Q6H PRN (Reason: pain) 5 Days Qty: 10 0RF Rx Instructions: Partial Fill upon patient request. No Action metformin 1,000 mg tablet 1,000 mg PO BID Qty: 20 0RF Rx Instructions: Local fill DO NOT GIVE A DOSE UNTIL 624 AFTER 1:15PM (DME) pen needle, diabetic [BD Ultra-Fine Mini Pen Needle] 31 gauge x 3/16 needle See Rx Instructions .Route Qty: 360 4RF Rx Instructions: As directed QID ac and hs rosuvastatin 5 mg tablet 5 mg PO MOWEFR 90 Days Qty: 39 3RF losartan 50 mg tablet 50 mg PO DAILY Qty: 90 3RF metoprolol succinate 25 mg tablet extended release 24 hr 25 mg PO DAILY Qty: 90 3RF spironolactone 25 mg tablet 25 mg PO DAILY Qty: 90 0RF pantoprazole 40 mg tablet,delayed release (DR/EC) 40 mg PO DAILY@0630 Qty: 90 0RF Eliquis 5 mg tablet 5 mg PO BID Qty: 180 3RF furosemide [Lasix] 40 mg tablet 40 mg PO DAILY Qty: 90 3RF gabapentin 100 mg capsule 100 mg PO BEDTIME Qty: 90 1RF docusate sodium [Colace] 100 mg Capsule 100 mg PO DAILY PRN (Reason: Constipation) loratadine [Wal-itin] 10 mg Tablet 10 mg PO DAILY PreserVision AREDS-2 250-90-40-1 mg Capsule 1 tab PO BID coenzyme Q10 [CoQ-10] 100 mg capsule 100 mg PO DAILY Humalog KwikPen Insulin 200 unit/mL (3 mL) insulin pen 2 - 12 unit subcut USEASDIRECTD Rx Instructions: 2 - 12 units subcutaneously; At meals and before bedtime 60-124 = 0 units 125-150=2 units 151-200=4 units 201-250=6 units 251-300=8 units 301-350=10 units 351-400=12 units insulin glargine [Lantus Solostar U-100 Insulin] 100 unit/mL (3 mL) insulin pen 12 unit subcut BEDTIME Referrals: Patricia Nicole MD [Primary Care Provider] - 2 days Print Language: Lao
[2023-12-01 14:26] VITALS: BP 133/68; PULSE 87; RESP 18; TEMP 36.9; O2SAT 96; BMI 26.3
--- NOTE | 2023-12-01 14:31 | ECG_ITS ---
Test Reason : ABD PAIN Blood Pressure : / mmHG Vent. Rate : 082 BPM Atrial Rate : 090 BPM P-R Int : 000 ms QRS Dur : 148 ms QT Int : 432 ms P-R-T Axes : 000 003 -42 degrees QTc Int : 504 ms Ventricular-paced rhythm Abnormal ECG When compared with ECG of 01-SEP-2023 15:54, Electronic ventricular pacemaker has replaced Atrial fibrillation Referred By: Mey Bull Electronically Signed By:TEDDY KUMAR
[2023-12-01 14:53] LABS: MANUAL DIFF FLAG NO
[2023-12-01 14:55] LABS: Basophils Percent Auto 0.5 % (0-2); Eosinophils Absolute Auto 0.1 X10*3/uL (0.0-0.4); Eosinophils Percent Auto 0.9 % (0-4); Hematocrit 35.9 % (37.0-47.0); Imm Gran Abs Auto 0.03 X10*3/uL (0.00-0.03); Imm Gran Pct Auto 0.3 % (0.0-0.4); Lymphocytes Absolute Auto 1.3 X10*3/uL (1.2-4.9); Lymphocytes Percent Auto 14.6 % (20-40); Mean Corpuscular HGB Conc 33.4 g/dl (31.0-35.0); Mean Corpuscular Volume 80.7 fL (80.0-98.0); Mean Platelet Volume 9.4 fL (9.4-12.3); Monocytes Percent Auto 11.3 % (2-11); Neutrophils Absolute Auto 6.2 x10*3/uL (2.0-8.3); Neutrophils Percent Auto 72.4 % (45-73); Platelet Count 238 X10*3/uL (160-400); Red Blood Count 4.45 X10*6/uL (4.20-5.50); Red Cell Distribution Width 15.9 % (11.0-16.0); White Blood Count 8.6 X10*3/uL (4.8-10.8)
[2023-12-01 15:00] LABS: Appearance Urine Clear; Color Urine Yellow; Glucose Urine UA Negative (Negative); Leukocyte Esterase Urine Large (3+) (Negative); Nitrite Urine Negative (Negative); Specific Gravity - Urine <= 1.005 (1.005-1.025); UMIC TRIGGER UACC YES; Urine Blood Negative (Negative); Urine Ketones Negative (Negative); Urine Protein Negative (Neg-Trace)
[2023-12-01 15:03] LABS: Bacteria Urine 4+ (None Seen); Hyaline Casts Urine 0-2 /LPF (0-2); RBC Urine 0-2 /HPF (0-2); Squamous Epithelial Cell Urine 0-2 /HPF (0-2); UACC Culture Trigger YES; WBC Urine >50 /HPF (0-5)
[2023-12-01 15:05] LABS: INTERNATIONAL NORM RATIO 1.4 (0.9-1.1); Prothrombin Time 17.5 SEC (11.1-13.3)
[2023-12-01 15:14] LABS: Troponin-I High Sensitivity 8.6 ng/L (<3.5-17.0)
[2023-12-01 17:20] LABS: Alanine Aminotransferase 8 U/L (0-31); Albumin Level 4.3 g/dL (3.5-5.0); Alkaline Phosphatase 66 U/L (39-117); Anion Gap 19 (12-20); Aspartate Amino Transferase 15 U/L (5-31); Bilirubin Total 0.6 mg/dL (0.0-1.0); Blood Urea Nitrogen 20 mg/dL (9-16); Calcium 10.4 mg/dL (8.4-10.2); Carbon Dioxide 21 mmol/L (22-29); Chloride 101 mmol/L (96-108); Creatinine Clr Calc Pharmacy 40.9; Estimated Glomerular Filt Rate 55; Glucose Random 162 mg/dL (60-115); Lipase 38 U/L (8-78); Magnesium 2.2 mg/dL (1.6-2.6); Potassium 4.8 mmol/L (3.3-5.1); Sodium 136 mmol/L (135-145); Total Protein 8.3 g/dL (6.5-8.0)
[2023-12-01 17:55] VITALS: BP 132/47; PULSE 82; RESP 17; O2SAT 94
[2023-12-01 18:11] LABS: D Dimer High Sensitivity < 150 NG/ML
[2023-12-01 19:19] VITALS: BP 106/42; PULSE 80; RESP 19; TEMP 36.9; O2SAT 96
[2023-12-01] MEDS: iohexoL 350 MG/ML 100 ML INFUS..BTL 85 ML IV (19:50)
[2023-12-01 21:03] VITALS: RESP 18
[2023-12-01] MEDS: Morphine Sulfate 4 MG/ML CARTRIDGE IVPUSH (21:03)
--- NOTE | 2023-12-01 21:03 | PC.NURSE ---
pt medicated per may for 10/26 abdominal pain
[2023-12-01 21:07] LABS: Troponin-I High Sensitivity 10.3 ng/L (<3.5-17.0)
[2023-12-02] VITALS: BP 131/58; PULSE 82; RESP 20; TEMP 37; O2SAT 96
[2023-12-02 00:16] LABS: Troponin-I High Sensitivity 13.5 ng/L (<3.5-17.0)
[2023-12-02 00:50] VITALS: BP 131/58; PULSE 82; RESP 20; TEMP 37; O2SAT 96
== END 2023-12-02 00:51 | disposition home or self-care (01) ==
PROVIDERS: Nurse Practitioner Family; Physician Assistant; Emergency Provider Emergency Medicine Emergency Medical Services; PCP Internal Medicine
DX: M48.54XA Collapsed vertebra, not elsewhere classified, thoracic region, initial encounter for fracture (principal); R10.13 Epigastric pain; N39.0 Urinary tract infection, site not specified; B96.1 Klebsiella pneumoniae [K. pneumoniae] as the cause of diseases classified elsewhere; E11.9 Type 2 diabetes mellitus without complications; I11.0 Hypertensive heart disease with heart failure; I50.9 Heart failure, unspecified; E78.5 Hyperlipidemia, unspecified; I48.0 Paroxysmal atrial fibrillation; Z79.4 Long term (current) use of insulin; Z79.02 Long term (current) use of antithrombotics/antiplatelets; Z79.01 Long term (current) use of anticoagulants; Z79.899 Other long term (current) drug therapy; Z79.84 Long term (current) use of oral hypoglycemic drugs
CPT/HCPCS: 36415; 71046; 71260; 74177; 80053; 81001; 81003; 83690; 83735; 84484; 85025; 85379; 85610; 87086; 87088; 87186; 93005; 96374; 99284; J2270; Q9967

== ENCOUNTER 2023-12-03 09:58 | Outpatient (AMB) | payer MEDICARE, SELFPAY ==
[2023-12-03 10:37] VITALS: BP 124/70; PULSE 82; O2SAT 95; BMI 26.9
--- NOTE | 2023-12-03 10:37 | A.OFFPC_ITS ---
Vital Signs 12/03/23 10:37 Height 5 ft 4 in Weight 157 lb BMI 26.9 BP 124/70 Blood Pressure Location Lt brachial Position Sitting Pulse 82 Pulse Oximetry (%) 95 Oxygen Delivery Method Room Air Intake Visit Reasons: HDF compression fx Intake Note: Pt is here today to HDF for compression fx Allergies adhesive tape [Adhesive Tape] Allergy (Mild, Verified 12/03/23 10:50) CONTACT DERMATITIS cephalexin [CEPHALEXIN] Allergy (Unknown, Verified 12/03/23 10:50) SWELLING latex [Latex] Allergy (Unknown, Verified 12/03/23 10:50) RASH Biaxin Adverse Reaction (Intermediate, Verified 12/03/23 10:50) plapitations bacitracin [From Cortisporin] Adverse Reaction (Mild, Verified 12/03/23 10:50) EYE IRRITATION empagliflozin [From Jardiance] Adverse Reaction (Mild, Verified 12/03/23 10:50) Unwell hydrocortisone [From Cortisporin] Adverse Reaction (Mild, Verified 12/03/23 10:50) EYE IRRITATION neomycin [From Cortisporin] Adverse Reaction (Mild, Verified 12/03/23 10:50) EYE IRRITATION flecainide [From Tambocor] Adverse Reaction (Unknown, Verified 12/03/23 10:50) HEART RACING lisinopril [LISINOPRIL] Adverse Reaction (Unknown, Verified 12/03/23 10:50) cough, nausea Sulfa (Sulfonamide Antibiotics) [SULFA(SULFONAMIDE ANTIBIOTICS)] Adverse Reaction (Unknown, Verified 12/03/23 10:50) PALPITATIONS Medication List - Last Reconciled 12/03/23 by Patricia Nicole MD apixaban (Eliquis) 5 mg PO BID coenzyme Q10 (CoQ-10) 100 mg PO DAILY docusate sodium (Colace) 100 mg PO DAILY PRN furosemide (Lasix) 40 mg PO DAILY gabapentin 100 mg PO BEDTIME insulin glargine (Lantus Solostar U-100 Insulin) 12 units subcut BEDTIME insulin lispro (Humalog KwikPen U-200 Insulin) 2 - 12 units subcut USEASDIRECTD loratadine (Wal-itin) 10 mg PO DAILY losartan 50 mg PO DAILY metformin 1,000 mg PO BID metoprolol succinate ER 25 mg PO DAILY pantoprazole 40 mg PO DAILY@0630 pen needle, diabetic (BD Ultra-Fine Mini Pen Needle) As directed QID ac and hs rosuvastatin 5 mg PO MOWEFR 90 days spironolactone 25 mg PO DAILY vit C,N-Zs-kxhol-lutein-zeaxan 250-90-40-1 mg (PreserVision AREDS-2) 1 tab PO BID Tobacco use date assessed: 12/03/23 Fall risk assessment: No Falls in past year Last assessed Fall Risk: 12/03/23 Dental Screening Dental Screen Date: 12/03/23 Did you have a dental visit in the last 12 months?: No Did you have a dental problem in the last 6 months where you did not have access to dental care?: No Was dental information given to patient?: Patient declined HPI HDF compression fx HPI Details 83-year-old female history of diabetes, congestive heart failure, anemia, aortic stenosis, hypertension, paroxysmal atrial fibrillation on anticoagulation, cholelithiasis, pulmonary hypertension, nonrheumatic mitral regurgitation, compression deformity of vertebrae, dyslipidemia presenting to the emergency department with complaints of right-sided mid back pain/right scapular pain that radiates to the front just below the breast for the past 4 days, this pain is atraumatic in nature. She reports 10/06/2023 she had a pacer placed without complications. She tells me she is feeling clammy and sweaty intermittently throughout the day. She denies fevers, chills, nausea, vomiting, shortness of breath, anterior chest pain, headache, vision changes, dizziness and weakness CBC with no acute findings needing intervention. Chemistry with no acute electrolyte abnormalities. Patient's troponin negative x3, nonischemic EKG not having chest pain or shortness of breath this time. D-dimer negative unlikely PE. Lipase normal. CT chest, abdomen and pelvis with cause of patient's chest pain and abdominal pain not found. Mild cardiomegaly noted, aberrant right subclavian artery, cholelithiasis however negative Barraza sign unlikely acute cholecystitis right-sided nonobstructing renal calculi, colonic diverticulosis without diverticulitis and severe degenerative changes in the spine with compression fracture of T11. Patient to be discharged home with p.o. pain meds, Lidoderm patch. [facility] Medical History (Updated 12/05/23 @ 08:16 by Patricia Nicole MD) Nontraumatic compression fracture of thoracic vertebra Congestive heart failure Anemia Moderate aortic stenosis Diabetes mellitus Hypertension Nephrolithiasis Urinary tract infection Paroxysmal atrial fibrillation Cholelithiasis Renal cyst Pulmonary hypertension Non-rheumatic mitral regurgitation Permanent atrial fibrillation Right nephrolithiasis Compression deformity of vertebra Microcytic anemia Heartburn Atrophic vaginitis Osteopenia Osteoarthritis of knees, bilateral Essential hypertension Dyslipidemia Type 2 diabetes mellitus with diabetic neuropathy, with long-term current use of insulin Surgical History History of esophagogastroduodenoscopy (EGD) (~10/2022) History of lumbar discectomy History of lobectomy of lung History of hysterectomy History of total right knee replacement (TKR) Lumbar radiculopathy Family History Father Diabetes mellitus Mother Diabetes mellitus Myocardial infarction Sister Cancer Sister No problems noted. Son No problems noted. Daughter No problems noted. Social History Household Members: None Housing: House Do you presently have visiting nurse or other home services: No Unable to assess alcohol history related to: Unable to respond Alcohol intake: never Patient Tobacco Use Status: Never used Tobacco e-Cigarette/Vaping Use: Never Used Advance Directives Date on File: 06/20/23 service: No Current occupational status: retired Cognitive needs: No Hearing needs: Yes Vision needs: Yes Questionnaire Thrive Questionnaire Date Thrive assessed: 08/31/23 INGRID-7 AMB Questionnaire INGRID-7 Date INGRID - 7 assessed: 06/20/23 Source: Developed by Drs. Chaz Mayer, Lily Ruggiero, Aayush Severino and colleagues, with an educational melinda from [employer]. Review of Systems Const Reports as per HPI ENT Denies dizziness Card Denies chest pain, Denies syncope, Denies rapid heart rate, Denies pedal edema, Denies lightheadedness, Denies palpitations, Denies dyspnea and Denies dyspnea on exertion Resp Denies cough, Denies dyspnea and Denies dyspnea on exertion GI Denies hematochezia and Denies change in stool character Musc Details: Pain in mid back radiating to upper back, when standing or walking Straight Reports as per HPI Skin/Breast Denies rash Neuro Denies dizziness and Denies syncope Endo Denies palpitations Physical exam (Primary Care) Vital Signs: Last Vital Signs Pulse 82 12/03/23 10:37 BP 124/70 12/03/23 10:37 Pulse Ox 95 12/03/23 10:37 Oxygen Delivery Method Room Air 12/03/23 10:37 BMI result Body Mass Index 26.9 Tobacco/Smoking Status: Tobacco use Status Tobacco use date assessed 12/03/23 12/03/23 10:45 Patient Tobacco Use Status Never used Tobacco 12/03/23 10:45 e-Cigarette/Vaping Use Never Used 12/03/23 10:45 Thrive Assessment: Date of Thrive Assessment Date Thrive assessed 08/31/23 12/03/23 10:45 Const Other: Alert oriented x3, no acute distress noted ambulatory with walker,daughter accompanying patient Orientation/consciousness: patient oriented x3 HENMT Mouth: Normal oral and palatal mucosa present and moist mucous membranes Neck Neck: Yes full ROM, Yes no lymphadenopathy and Yes supple Resp Auscultation: clear to auscultation bilaterally Cardio Other: S1-S2 present regular rate and rhythm, systolic murmur heard for base GI Other: obese, Normal bowel sounds, soft, nontender, with no mass palpated Back/Spine/Pelvis Other: Kyphotic posture, Tenderness on palpation over thoracic area Neuro General: patient oriented x3, tone normal and moves all extremities Gait exam (Neuro): Assisted gait required Extrem General: Yes full ROM, Yes no joint enlargement, Yes no clubbing, cyanosis or edema and Yes no calf tenderness Results Reviewed Results Reviewed: CT/CT chest w IV con IMPRESSION: 1. A cause for the patient's chest pain and abdominal pain has not been found. 2. Incidental note made of mild cardiomegaly, aberrant right subclavian artery, cholelithiasis, right-sided nonobstructing renal calculi, colonic diverticulosis without diverticulitis and severe degenerative changes in the spine with compression fracture T11. Assessment and Plan Assessment & Plan (1) Nontraumatic compression fracture of thoracic vertebra: Code(s): M48.54XA - Collapsed vertebra, not elsewhere classified, thoracic region, initial encounter for fracture Plan: May continue taking morphine 15 mg half a tablet twice a day, reserve for moderate to severe pain and may continue taking Tylenol 500 mg 1-2 tablets every 8 hours as needed for pain, recommended kyphoplasty if pain not controlled, patient states she will let me know if she wants to go ahead with the procedure, andw ill refer to Interventional Radiology Coding Level of Care Code Est Pt Level 4 (57149) Diagnoses Nontraumatic compression fracture of thoracic vertebra M48.54XA
== END 2023-12-03 11:42 | disposition home or self-care (01) ==
PROVIDERS: PCP Internal Medicine; Visit Provider Internal Medicine
DX: M48.54XA Collapsed vertebra, not elsewhere classified, thoracic region, initial encounter for fracture (principal)

== ENCOUNTER → 2023-12-03 09:58 | Outpatient (BNVA) | payer MEDICARE, SELFPAY | PROVIDERS: PCP Internal Medicine; Visit Provider Internal Medicine | DX: M48.54XA Collapsed vertebra, not elsewhere classified, thoracic region, initial encounter for fracture (principal) | CPT/HCPCS: 99212 ==

== ENCOUNTER 2023-12-27 10:46 | Outpatient (REF) | payer MEDICARE, SELFPAY ==
--- NOTE | ~2023-12-27 | MR_ITS ---
EXAMINATION: MR thoracic spine without contrast MRI lumbar spine without contrast INDICATION: Collapsed vertebrae COMPARISON: CT chest, abdomen and pelvis on 12/01/2023 and 12/13/2021 as well as MRI lumbar spine on 12/19/2021 TECHNIQUE: Multiplanar multisequence MR imaging of the thoracic and lumbar spine without administration of intravenous contrast. FINDINGS: Multiple compression fractures throughout the thoracic and lumbar spine as follows: -Acute compression fracture of T6 with 40% vertebral body height loss anteriorly. There is involvement of the left greater than right posterior elements. No retropulsion. -Acute on chronic compression fracture deformity of T8 with severe vertebral body height loss (vertebra plana appearance). 3 mm retropulsion inferiorly resulting in mild spinal canal stenosis at T8-9. -Chronic compression fracture deformity of T11 with interval mild progression of vertebral body height loss anteriorly. 2 mm retropulsion without significant spinal canal stenosis. The visualized spinal cord is normal in caliber. No abnormal cord signal. The conus medullaris terminates at L1. Chronic compression fracture deformity of T12, unchanged without significant retropulsion. Diffuse atrophy of the paravertebral musculature. Bilateral renal cysts. Right adrenal gland nodule. THORACIC SPINE: Evaluation of the normal thoracic kyphosis. Grade 1 anterolisthesis at T2-3. The remaining vertebral body heights are preserved. Diffusely heterogeneous bone marrow signal is likely degenerative. Multilevel disc desiccation. Multilevel endplate osteophytosis. Multilevel disc bulges throughout the thoracic spine without significant spinal canal stenosis. Multilevel neural foraminal narrowing bilaterally, worse and moderate to severe at T8-9 bilaterally. There is mild spinal canal stenosis at T8-9 secondary to retropulsion. No other sites of significant spinal canal stenosis. LUMBAR SPINE: Levocurvature of the thoracolumbar junction and mild dextrocurvature of the lower lumbar spine. Preservation of the normal lumbar lordosis. Grade 1 anterolisthesis at L4-5. Mild retrolisthesis at L1-2 and L2-3. Diffusely heterogeneous bone marrow signal is likely degenerative. The vertebral body heights are preserved. Multilevel disc desiccation and disc height loss, worse and severe at L5-S1. Multilevel endplate osteophytosis. T12-L1: Diffuse disc bulge. Bilateral facet arthrosis. No significant spinal canal or neural foraminal narrowing. L1-2: Diffuse disc bulge with superimposed right subarticular disc protrusion, unchanged. Bilateral facet arthrosis. Moderate right and mild left neural foraminal narrowing, unchanged. No significant spinal canal stenosis. L2-3: Diffuse disc bulge and bilateral facet arthrosis. Moderate spinal canal stenosis, progressed from prior. Moderate left and [id number] right neural foraminal narrowing with the disc abutting the exiting L2 nerve roots, unchanged. L3-4: Diffuse disc bulge and bilateral facet arthrosis. Mild spinal canal stenosis, new. Moderate left and minimal right neural foraminal narrowing with the disc abutting the exiting L3 nerve roots bilaterally, unchanged. L4-5: Diffuse disc bulge with superimposed annular fissure. Ligamentum flavum hypertrophy and bilateral facet arthrosis. Mild spinal canal stenosis, new. Mild to moderate right and mild left neural foraminal narrowing, unchanged with the disc abutting the exiting L4 nerve roots bilaterally. L5-S1: Diffuse disc bulge with superimposed annular fissure. Bilateral facet arthrosis. No significant spinal canal stenosis. Mild to moderate right neural foraminal narrowing with mass effect on the exiting L5 nerve roots, unchanged. MR/MR thoracic spine wo con IMPRESSION: -Acute compression fracture of T6 with 40% vertebral body height loss anteriorly. No retropulsion. -Acute on chronic compression fracture of T8 with severe vertebral body height loss. 3 mm retropulsion inferiorly resulting in mild spinal canal stenosis at T8-9. -Chronic compression fracture deformity of T11 and T12 with mild progression of vertebral body height loss anteriorly of T11. -Multilevel degenerative changes of the thoracic and lumbar spine as described above, most significant at L2-3 where there is progressive spinal canal stenosis, now moderate in degree. There is also new mild spinal canal stenosis at L3-4 and L4-5. Electronically signed by: Josefina Montemayor MD 12/27/2023 04:26 PM EDT
== END 2023-12-27 10:47 | disposition home or self-care (01) ==
LOC: HO.MRI 10:46
PROVIDERS: PCP Internal Medicine; Visit Provider Internal Medicine
DX: M48.54XA Collapsed vertebra, not elsewhere classified, thoracic region, initial encounter for fracture (principal); M85.89 Other specified disorders of bone density and structure, multiple sites; M48.56XA Collapsed vertebra, not elsewhere classified, lumbar region, initial encounter for fracture
CPT/HCPCS: 72146; 72148

== ENCOUNTER 2023-12-28 16:05 | Emergency (ER) | payer MEDICARE, SELFPAY ==
--- NOTE | 2023-12-28 16:08 | ECG_ITS ---
Test Reason : chest pain Blood Pressure : / mmHG Vent. Rate : 088 BPM Atrial Rate : 084 BPM P-R Int : 000 ms QRS Dur : 150 ms QT Int : 388 ms P-R-T Axes : 000 000 -57 degrees QTc Int : 469 ms Ventricular-paced rhythm Abnormal ECG When compared with ECG of 01-DEC-2023 14:30, Vent. rate has increased BY 6 BPM Referred By: Generic ED Physician Electronically Signed By:TIMO GEORGE MD
--- NOTE | 2023-12-28 16:14 | ED.GENADULT ---
HPI - General Adult General Chief complaint: General Medical Stated complaint: chest pain/feels weak/pt has a pacemaker Time Seen by Provider: 12/28/23 21:21 Source: patient and family Mode of arrival: ambulatory Limitations: no limitations History of Present Illness ED Provider: leah RIDER narrative: 83 years old with history of chronic back pain from compression fracture on tramadol comes here for slight pain at the site of the pacemaker and complaining of back pain plan to see PCP for kyphoplasty next week no shortness a breath no palpitation no syncope Related Data Home Medications ?Medication ?Instructions ?Recorded ?Confirmed coenzyme Q10 100 mg capsule 100 mg PO DAILY 04/28/22 11/26/23 (CoQ-10) docusate sodium 100 mg capsule 100 mg PO DAILY PRN Constipation 08/30/23 11/26/23 (Colace) loratadine 10 mg tablet (Wal-itin) 10 mg PO DAILY 08/30/23 11/26/23 vit C 250 mg-vit E 90 mg-zinc 40 1 tab PO BID 08/30/23 11/26/23 mg-copper 1 [id number] capsule (PreserVision AREDS-2) insulin lispro 200 unit/mL (3 mL) 2 - 12 unit subcut USEASDIRECTD 11/05/23 11/26/23 subcutaneous pen (Humalog KwikPen U-200 Insulin) insulin glargine 100 unit/mL (3 12 unit subcut BEDTIME 11/07/23 11/26/23 mL) subcutaneous pen (Lantus Solostar U-100 Insulin) Previous Rx's ?Medication ?Instructions ?Recorded metformin 1,000 mg tablet 1,000 mg PO BID #20 tabs 03/16/23 pen needle, diabetic 31 gauge x #360 ea 03/28/2306/01 (BD Ultra-Fine Mini Pen Needle) losartan 50 mg tablet 50 mg PO DAILY #90 tabs 07/10/23 metoprolol succinate 25 mg 25 mg PO DAILY #90 tabs 07/10/23 tablet,extended release 24 hr rosuvastatin 5 mg tablet 5 mg PO MOWEFR 90 days #39 tabs 07/10/23 pantoprazole 40 mg tablet,delayed 40 mg PO DAILY@0630 #90 tabs 10/12/23 release spironolactone 25 mg tablet 25 mg PO DAILY #90 tabs 10/12/23 apixaban 5 mg tablet (Eliquis) 5 mg PO BID #180 tabs 10/30/23 furosemide 40 mg tablet (Lasix) 40 mg PO DAILY #90 tabs 11/12/23 gabapentin 100 mg capsule 100 mg PO BEDTIME #90 caps 11/29/23 sulfamethoxazole 800 1 tab PO Q12H 3 days #6 tabs 12/05/23 mg-trimethoprim 160 mg tablet (Bactrim DS) tramadol 50 mg tablet 50 mg PO Q8H PRN pain #30 tabs 12/16/23 Allergies Allergy/AdvReac Type Severity Reaction Status Date / Time adhesive tape [Adhesive Tape] Allergy Mild CONTACT Verified 12/28/23 16:18 DERMATITIS cephalexin [CEPHALEXIN] Allergy Unknown SWELLING Verified 12/28/23 16:18 latex [Latex] Allergy Unknown RASH Verified 12/28/23 16:18 Biaxin AdvReac Intermediate plapitation Verified 12/28/23 16:18 s bacitracin [From Cortisporin] AdvReac Mild EYE Verified 12/28/23 16:18 IRRITATION empagliflozin AdvReac Mild Unwell Verified 12/28/23 16:18 [From Jardiance] hydrocortisone AdvReac Mild EYE Verified 12/28/23 16:18 [From Cortisporin] IRRITATION neomycin [From Cortisporin] AdvReac Mild EYE Verified 12/28/23 16:18 IRRITATION flecainide [From Tambocor] AdvReac Unknown HEART Verified 12/28/23 16:18 RACING lisinopril [LISINOPRIL] AdvReac Unknown cough, Verified 12/28/23 16:18 nausea Sulfa (Sulfonamide AdvReac Unknown PALPITATION Verified 12/28/23 16:18 Antibiotics) S [SULFA(SULFONAMIDE ANTIBIOTICS)] Review of Systems Review of Systems: Yes all other systems are reviewed and are negative PMFSH Past Medical History Medical History Compression fracture of lumbar spine, non-traumatic Nontraumatic compression fracture of thoracic vertebra Congestive heart failure Anemia Moderate aortic stenosis Diabetes mellitus Hypertension Nephrolithiasis Urinary tract infection Paroxysmal atrial fibrillation Cholelithiasis Renal cyst Pulmonary hypertension Non-rheumatic mitral regurgitation Permanent atrial fibrillation Right nephrolithiasis Compression deformity of vertebra Microcytic anemia Heartburn Atrophic vaginitis Osteopenia Osteoarthritis of knees, bilateral Essential hypertension Dyslipidemia Type 2 diabetes mellitus with diabetic neuropathy, with long-term current use of insulin Surgical History History of esophagogastroduodenoscopy (EGD) (~10/2022) History of lumbar discectomy History of lobectomy of lung History of hysterectomy History of total right knee replacement (TKR) Lumbar radiculopathy Family History Family History Father Diabetes mellitus Mother Diabetes mellitus Myocardial infarction Sister Cancer Sister No problems noted. Son No problems noted. Daughter No problems noted. Social History Social History Household Members: None Housing: House Do you presently have visiting nurse or other home services: No Unable to assess alcohol history related to: Unable to respond Alcohol intake: never Patient Tobacco Use Status: Never used Tobacco Smoked in Last 30 Days: No e-Cigarette/Vaping Use: Never Used Use of substances other than those prescribed or required for medical reasons: No Advance Directives: Yes Advance Directives on File: Yes Advance Directives Date on File: 06/20/23 Do you have a plan to hurt others: No Plan service: No Current occupational status: retired Cognitive needs: No Hearing needs: Yes Vision needs: Yes Physical Exam ED Vital Signs: Vital Signs - 24 hr 12/28/23 16:16 12/28/23 20:26 12/28/23 21:48 Temperature 97.9 F 97.7 F 98.2 F Pulse Rate 85 86 91 Respiratory Rate 18 18 18 Blood Pressure 147/75 H 143/67 H 143/86 H Pulse Oximetry 98 97 94 Oxygen Delivery Method Room Air Room Air Room Air 12/28/23 21:51 Temperature 98.2 F Pulse Rate 91 Respiratory Rate 18 Blood Pressure 143/86 H Pulse Oximetry 94 Oxygen Delivery Method Room Air BMI result Body Mass Index 26.3 Appearance: Alert. Oriented X3. No acute distress. Eyes: No pallor or icterus ENT: Pharynx normal. Oral Mucosa moist Neck: Normal inspection. Neck supple. CVS: Normal heart rate and rhythm. Pulses normal. Respiratory: No respiratory distress. Equal air entry bilateral, no wheezing/rales/rhonchi Abdomen: Soft and nontender. Bowel sounds are present, no mass palpable, no CVA tenderness Skin: Skin warm and dry. Normal skin color. Normal skin turgor. Extremities: No lower extremity edema. No calf tenderness back: Diffuse tenderness thoracic area Neuro: Oriented X 3. No motor deficit. 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 Patient is an 83-year-old female with past medical history of diabetes, CHF, anemia, aortic stenosis, hypertension, paroxysmal atrial fibrillation on anticoagulation, cholelithiasis, pulmonary hypertension, nonrheumatic mitral regurgitation, dyslipidemia who presents emergency department for evaluation. Reports over the past few days she has been feeling faint, with pain to the left anterolateral chest for the past few days. Had a pacemaker placed 10/16/23, patient reports pain localized to insertion site. She has also been experiencing a poor appetite, no n/v. recently diagnosed nontraumatic T11 compression fracture on CT, awaiting kyphoplasty. Has been using tramadol and acetaminophen for pain management, had a bad reaction to morphine States that yesterday she had an MRI of the thoracic and lumbar spine due to right-sided back pain, found to have acute compression fracture of T6 with 40% loss no retropulsion, acute on chronic T8 with retropulsion inferiorly resulting in mild stenosis, chronic compression fracture T11 and T12, multilevel degenerative changes most significant at L2-L3 moderate stenosis. Plan: Serum labs, ECG Medical Decision Making Medical Decision Making [facility] Narrative: Patient with multiple compression fracture recently had MRI which showed T6, T8 compression fracture on tramadol patient's plan to see radiologist for kyphoplasty does have atypical chest pain at the site of pacemaker without any ischemic changes cardiac enzymes normal Differential Diagnosis Differential Diagnoses: The differential diagnosis associated with the presentation includes Lab Data [facility] Lab Attestation statement: I reviewed the patient's lab results. 12/28/23 17:21 12/28/23 17:21 Labs: Lab Results 12/28/23 Range/Units 17:21 WBC 8.2 (4.8-10.8) X10*3/uL RBC 4.56 (4.20-5.50) X10*6/uL Hgb 12.3 (12.0-16.0) g/dl Hct 37.4 (37.0-47.0) % MCV 82.0 (80.0-98.0) fL MCH 27.0 (27.0-33.0) pg MCHC 32.9 (31.0-35.0) g/dl RDW 16.2 H (11.0-16.0) % Plt Count 262 (160-400) X10*3/uL MPV 9.1 L (9.4-12.3) fL Immature Gran % (Auto) 0.4 (0.0-0.4) % Neut % (Auto) 71.8 (45-73) % Lymph % (Auto) 15.2 L (20-40) % Republic % (Auto) 10.4 (2-11) % Eos % (Auto) 1.7 (0-4) % Baso % (Auto) 0.5 (0-2) % Lymph # (Auto) 1.3 (1.2-4.9) X10*3/uL Republic # (Auto) 0.9 (0.1-1.2) X10*3/uL Eos # (Auto) 0.1 (0.0-0.4) X10*3/uL Baso # (Auto) 0.0 (0.0-0.2) X10*3/uL Abs Immat Gran (auto) 0.03 (0.00-0.03) X10*3/uL Absolute Neuts (auto) 5.9 (2.0-8.3) x10*3/uL Absolute Nucleated RBC 0.000 (0.0-0.012) X10*3/uL Nucleated RBC % (auto) 0.0 (0.0-0.2) /100WBC Sodium 135 (135-145) mmol/L Potassium 4.9 (3.3-5.1) mmol/L Chloride 96 (96-108) mmol/L Carbon Dioxide 27 (22-29) mmol/L Anion Gap 17 (12-20) BUN 33 H (9-16) mg/dL Creatinine 1.33 (0.5-1.4) mg/dL Estim Creat Clear Calc 29.5 Estimated GFR 38 Random Glucose 147 H (60-115) mg/dL Calcium 10.1 (8.4-10.2) mg/dL Total Bilirubin 0.3 (0.0-1.0) mg/dL AST 15 (5-31) U/L ALT 9 (0-31) U/L Alkaline Phosphatase 85 (39-117) U/L Troponin I High Sens 11.3 (<3.5-17.0) ng/L B-Natriuretic Peptide 52 (<100) pg/mL Total Protein 7.8 (6.5-8.0) g/dL Albumin 4.3 (3.5-5.0) g/dL Influenza Type A (PCR) NEGATIVE (Negative) Influenza Type B (PCR) NEGATIVE (Negative) RSV RNA Qual (PCR) NEGATIVE (Negative) SARS-CoV-2 RNA (RT-PCR) NEGATIVE (Negative) Independent Interpretation I performed an independent interpretation of an: EKG Interpretation: Pacemaker rhythm no acute ST elevation no acute ischemia heart rate 88 beats per minute Discharge Plan Discharge Clinical Impression: Chest wall pain, Compression fracture of body of thoracic vertebra Patient Disposition: Home, Self-Care Instructions: Vertebral Compression Fracture (ED), Kyphoplasty (DC), Chest Wall Pain (ED) Additional Instructions: Continue your medications and follow up with PCP for scheduled kyphoplasty Prescriptions: No Action metformin 1,000 mg tablet 1,000 mg PO BID Qty: 20 0RF Rx Instructions: Local fill DO NOT GIVE A DOSE UNTIL 6-14-24 AFTER 1:15PM (DME) pen needle, diabetic [BD Ultra-Fine Mini Pen Needle] 31 gauge x 3/16 needle See Rx Instructions .Route Qty: 360 4RF Rx Instructions: As directed QID ac and hs rosuvastatin 5 mg tablet 5 mg PO MOWEFR 90 Days Qty: 39 3RF losartan 50 mg tablet 50 mg PO DAILY Qty: 90 3RF metoprolol succinate 25 mg tablet extended release 24 hr 25 mg PO DAILY Qty: 90 3RF spironolactone 25 mg tablet 25 mg PO DAILY Qty: 90 0RF pantoprazole 40 mg tablet,delayed release (DR/EC) 40 mg PO DAILY@0630 Qty: 90 0RF Eliquis 5 mg tablet 5 mg PO BID Qty: 180 3RF furosemide [Lasix] 40 mg tablet 40 mg PO DAILY Qty: 90 3RF gabapentin 100 mg capsule 100 mg PO BEDTIME Qty: 90 1RF tramadol 50 mg tablet 50 mg PO Q8H PRN (Reason: pain) Qty: 30 0RF Rx Instructions: Take together with Tylenol 500 mg every 8 hours as needed for pain relief docusate sodium [Colace] 100 mg Capsule 100 mg PO DAILY PRN (Reason: Constipation) loratadine [Wal-itin] 10 mg Tablet 10 mg PO DAILY PreserVision AREDS-2 250-90-40-1 mg Capsule 1 tab PO BID sulfamethoxazole-trimethoprim [Bactrim DS] 800-160 mg tablet 1 tab PO Q12H 3 Days Qty: 6 0RF coenzyme Q10 [CoQ-10] 100 mg capsule 100 mg PO DAILY Humalog KwikPen Insulin 200 unit/mL (3 mL) insulin pen 2 - 12 unit subcut USEASDIRECTD Rx Instructions: 2 - 12 units subcutaneously; At meals and before bedtime 60-124 = 0 units 125-150=2 units 151-200=4 units 201-250=6 units 251-300=8 units 301-350=10 units 351-400=12 units insulin glargine [Lantus Solostar U-100 Insulin] 100 unit/mL (3 mL) insulin pen 12 unit subcut BEDTIME Interventions: ED Discharge Assessment Last Done: 12/28/23 21:51 Discharge Date/Time: 12/28/23 21:54 Print Language: Cymro
[2023-12-28 16:16] VITALS: BP 147/75; PULSE 85; RESP 18; TEMP 36.6; O2SAT 98; BMI 26.3
[2023-12-28 17:31] LABS: MANUAL DIFF FLAG NO
[2023-12-28 17:34] LABS: Basophils Percent Auto 0.5 % (0-2); Eosinophils Absolute Auto 0.1 X10*3/uL (0.0-0.4); Eosinophils Percent Auto 1.7 % (0-4); Hematocrit 37.4 % (37.0-47.0); Hemoglobin 12.3 g/dl (12.0-16.0); Imm Gran Abs Auto 0.03 X10*3/uL (0.00-0.03); Imm Gran Pct Auto 0.4 % (0.0-0.4); Lymphocytes Absolute Auto 1.3 X10*3/uL (1.2-4.9); Lymphocytes Percent Auto 15.2 % (20-40); Mean Corpuscular HGB Conc 32.9 g/dl (31.0-35.0); Mean Platelet Volume 9.1 fL (9.4-12.3); Monocytes Absolute Auto 0.9 X10*3/uL (0.1-1.2); Monocytes Percent Auto 10.4 % (2-11); Neutrophils Absolute Auto 5.9 x10*3/uL (2.0-8.3); Neutrophils Percent Auto 71.8 % (45-73); Platelet Count 262 X10*3/uL (160-400); Red Blood Count 4.56 X10*6/uL (4.20-5.50); Red Cell Distribution Width 16.2 % (11.0-16.0); White Blood Count 8.2 X10*3/uL (4.8-10.8)
[2023-12-28 17:47] LABS: Alanine Aminotransferase 9 U/L (0-31); Albumin Level 4.3 g/dL (3.5-5.0); Alkaline Phosphatase 85 U/L (39-117); Anion Gap 17 (12-20); Aspartate Amino Transferase 15 U/L (5-31); Bilirubin Total 0.3 mg/dL (0.0-1.0); Blood Urea Nitrogen 33 mg/dL (9-16); Calcium 10.1 mg/dL (8.4-10.2); Carbon Dioxide 27 mmol/L (22-29); Chloride 96 mmol/L (96-108); Creatinine Clr Calc Pharmacy 29.5; Estimated Glomerular Filt Rate 38; Glucose Random 147 mg/dL (60-115); Potassium 4.9 mmol/L (3.3-5.1); Sodium 135 mmol/L (135-145); Total Protein 7.8 g/dL (6.5-8.0)
[2023-12-28 17:53] LABS: B Type Natriuretic Peptide 52 pg/mL (<100); Troponin-I High Sensitivity 11.3 ng/L (<3.5-17.0)
[2023-12-28 18:09] LABS: Influenza A PCR NEGATIVE (Negative); Influenza B PCR NEGATIVE (Negative); Resp Syncy Virus RNA Qual PCR NEGATIVE (Negative); SARS COV2 PCR INHOUSE NEGATIVE (Negative)
[2023-12-28 20:26] VITALS: BP 143/67; PULSE 86; RESP 18; TEMP 36.5; O2SAT 97
--- NOTE | 2023-12-28 20:33 | PC.NURSE ---
Pt reports she had an MRI yesterday for a compressed disc fracture Pt reports she has been feeling lethargic and for the past few days feels like shes going to pass out around 10-1030am. Pt also reports she has had no appetite. Pt has a pacemaker that was placed on october 16 2023
--- NOTE | 2023-12-28 20:37 | PC.NURSE ---
Pts son at bedside Plan of care ongoing
[2023-12-28 21:48] VITALS: BP 143/86; PULSE 91; RESP 18; TEMP 36.8; O2SAT 94
[2023-12-28 21:51] VITALS: BP 143/86; PULSE 91; RESP 18; TEMP 36.8; O2SAT 94
== END 2023-12-28 21:54 | disposition home or self-care (01) ==
PROVIDERS: Nurse Practitioner Family; Emergency Provider Internal Medicine; PCP Internal Medicine
DX: R07.89 Other chest pain (principal); M48.54XA Collapsed vertebra, not elsewhere classified, thoracic region, initial encounter for fracture; I10 Essential (primary) hypertension; E11.9 Type 2 diabetes mellitus without complications; E78.5 Hyperlipidemia, unspecified; Z95.0 Presence of cardiac pacemaker; Z79.84 Long term (current) use of oral hypoglycemic drugs; Z79.02 Long term (current) use of antithrombotics/antiplatelets; Z79.01 Long term (current) use of anticoagulants; Z79.4 Long term (current) use of insulin; Z03.818 Encounter for observation for suspected exposure to other biological agents ruled out
CPT/HCPCS: 0241U; 80053; 83880; 84484; 85025; 93005; 99283; 99284

== ENCOUNTER → 2023-12-28 16:08 | Outpatient (BNV) | payer MEDICARE, SELFPAY | PROVIDERS: Emergency Provider Internal Medicine; PCP Internal Medicine; Visit Provider Internal Medicine Cardiovascular Disease | DX: R94.31 Abnormal electrocardiogram [ECG] [EKG] (principal) | CPT/HCPCS: 93010 ==

== ENCOUNTER 2024-01-04 11:03 | Outpatient (REF) | payer MEDICARE, SELFPAY ==
--- NOTE | ~2024-01-04 | MM_ITS ---
EXAMINATION: BONE DENSITOMETRY CLINICAL INDICATION: Age-related osteoporosis without current pathological fracture. COMPARISON: Previous BD dated 06/28/2012 and baseline BD dated 12/31/2006. TECHNIQUE: Using a [employer] DXA System (software version: 13.1) manufactured by [employer], dual-energy x-ray absorptiometry was performed of the lumbar spine and left hip. The images are of good technical quality. Summary results are attached. FINDINGS: LEFT FEMUR, NECK: Current: BMD 0.721 g/cm2, Z-score 0.0, T-score -2.3, osteopenia. Prior: BMD 0.795 g/cm2. Baseline: BMD 0.815 g/cm2. LEFT FEMUR, TOTAL: Current: BMD 0.815 g/cm2, Z-score 0.7, T-score -1.5, osteopenia, 4.2% decrease from previous, 10.2% decrease from baseline (<5% change is not significant). Prior: BMD 0.851 g/cm2. Baseline: BMD 0.908 g/cm2. AP SPINE L1-L4: Current: BMD 1.311 g/cm2, Z-score 2.9, T-score 1.1, normal, 13.8% increase from previous, 16.1% increase from baseline (<5% change is not significant). Prior: BMD 1.152 g/cm2. Baseline: BMD 1.129 g/cm2. IDENTIFIED RISK FACTORS: Menopause, hysterectomy, bilateral oophorectomy, anticonvulsant, height loss, history of fracture (adult), kidney. HISTORY OF FRACTURE: Shoulder, spine. MEDICATIONS: Vitamin D. MM/XR DEXA axial skeleton IMPRESSION: 1. DIAGNOSIS: Osteopenia based on the lowest T-score value of -2.3 in the femoral neck applying World Health Organization criteria. 2. 10-YEAR FRACTURE RISK PREDICTION, FRAX: Major osteoporotic fracture (clinical spine, forearm, hip or shoulder) 24.9%. Hip fracture 7.8%. 3. Treatment Recommendations: NOF guidelines recommend consideration for treatment in postmenopausal women and men age 50 and older presenting with the following: -A hip or vertebral (clinical or morphometric) fracture. -T-score less than or equal to -2.5 at the femoral neck or spine after appropriate evaluation to exclude secondary causes. -Low bone mass at the hip or spine and a 10-year fracture probability by FRAX of greater than or equal to 3% for hip fracture or greater than or equal to 20% for major osteoporotic fracture based on the [place] adapted WHO algorithm. 4. Other Recommendations: All treatment decisions require clinical judgment and consideration of individual patient factors, including patient preferences, comorbidities, previous drug use, risk factors not captured in the FRAX model (e.g. frailty, falls, vitamin D deficiency, increased bone turnover, interval significant decline in bone density) and possible under or overestimation of fracture risk by FRAX. Additional medical evaluation for secondary cause of low bone mineral density may be appropriate. FUTURE SCAN RECOMMENDATION: People with diagnosed cases of osteoporosis or at high risk for fracture should have regular bone mineral density tests. For patients eligible for Medicare, routine testing is allowed once every 2 years. The testing frequency can be increased to one year for patients who have rapidly progressing disease, those who are receiving or discontinuing medical therapy to restore bone mass, or have additional risk factors. Electronically signed by: Madelaine Jones MD 01/04/2024 01:01 PM EDT [facility]
== END 2024-01-04 11:04 | disposition home or self-care (01) ==
LOC: HO.MAMMO 11:03
PROVIDERS: PCP Internal Medicine; Visit Provider Internal Medicine
DX: M80.08XA Age-related osteoporosis with current pathological fracture, vertebra(e), initial encounter for fracture (principal); Z78.0 Asymptomatic menopausal state
CPT/HCPCS: 77080

== ENCOUNTER 2024-01-17 10:47 | Day surgery (SDC) | payer MEDICARE, SELFPAY ==
[2024-01-10 12:01] VITALS: BMI 26.1
--- NOTE | 2024-01-14 13:30 | HO.ANESPROP2 ---
HPI - Anesthesia Eval Consult details Narrative: 83yo F for Kyphoplasty (Pt developed pulmonary edema when laying flat for cath 09/2023. Rescheduled and completed a few days later. Euvolemic per most recent cardiac eval.) Follows [facility] [place] Cardiology. Stable at 11/2023 office visit. Pacer in situ (implanted 09/2023) CHF (euvolemic per office visit) Afib - eliquis Case reviewed with Dr Kira ALVARADO Active Problems Active Problems: All Active Problems Pacemaker (Acute) Chronic combined systolic and diastolic CHF (congestive heart failure) (Acute) LBBB (left bundle branch block) (Acute) Acute on chronic systolic (congestive) heart failure (Acute) Tricuspid regurgitation (Acute) Urinary incontinence (Acute) Current use of anticoagulant therapy (Acute) Age-related osteoporosis with current pathological fracture, vertebra(e), initial encounter for fracture (Acute) Compression fracture of lumbar spine, non-traumatic (Acute) Nontraumatic compression fracture of thoracic vertebra (Acute) Congestive heart failure (Acute) Anemia (Acute) Moderate aortic stenosis (Acute) Renal cyst (Acute) Non-rheumatic mitral regurgitation (Acute) Microcytic anemia (Acute) Atrophic vaginitis (Acute) Osteopenia (Acute) Osteoarthritis of knees, bilateral (Acute) Essential hypertension (Acute) Dyslipidemia (Acute) Type 2 diabetes mellitus with diabetic neuropathy, with long-term current use of insulin (Acute) Past Medical History Medical History (Updated 01/10/24 @ 12:06 by Anastasia Brown, RN) HOPI (hard of hearing) Wears hearing aid in both ears Uses walker Hx of cardiac pacemaker (10/06/23) Age-related osteoporosis with current pathological fracture, vertebra(e), initial encounter for fracture Compression fracture of lumbar spine, non-traumatic Nontraumatic compression fracture of thoracic vertebra Anemia Moderate aortic stenosis Diabetes mellitus Congestive heart failure Urinary tract infection Hypertension Paroxysmal atrial fibrillation Cholelithiasis Renal cyst Nephrolithiasis Pulmonary hypertension Non-rheumatic mitral regurgitation Permanent atrial fibrillation Right nephrolithiasis Compression deformity of vertebra Microcytic anemia Heartburn Atrophic vaginitis Osteopenia Osteoarthritis of knees, bilateral Essential hypertension Dyslipidemia Type 2 diabetes mellitus with diabetic neuropathy, with long-term current use of insulin Family History Family History Father Diabetes mellitus Mother Diabetes mellitus Myocardial infarction Sister Cancer Sister No problems noted. Son No problems noted. Daughter No problems noted. Family history of problems with anesthesia: No Surgical History Surgical History (Updated 01/10/24 @ 11:09 by Anastasia Brown RN) History of cardiac radiofrequency ablation (RFA) Hx of cardiac catheterization History of esophagogastroduodenoscopy (EGD) (~10/2022) History of lumbar discectomy History of lobectomy of lung History of hysterectomy History of total right knee replacement (TKR) Lumbar radiculopathy History of Problems with Anesthesia: No Social History Social History (Updated 01/10/24 @ 12:00 by Ansatasia Brown RN) Household Members: None Housing: House Are you a primary child care supervisor to a significant other at home: No Do you presently have visiting nurse or other home services: No (supportive family) Unable to assess alcohol history related to: Unable to respond Alcohol intake: never Patient Tobacco Use Status: Former Tobacco user Tobacco use type: Cigarette Smoked in Last 30 Days: No e-Cigarette/Vaping Use: Never Used Use of substances other than those prescribed or required for medical reasons: No Are you DNR?: No Advance Directives: Yes Advance Directives on File: Yes Advance Directives Date on File: 06/20/23 Recently lost weight without trying: No Nutrition Risks: Surgical patient >75years Poor oral hygiene: No service: No Current occupational status: retired Cognitive needs: No Hearing needs: Yes Vision needs: Yes Meds Allergies Allergy/AdvReac Type Severity Reaction Status Date / Time latex [Latex] Allergy Severe RASH Verified 01/10/24 11:58 cephalexin [CEPHALEXIN] Allergy Intermediate SWELLING Verified 01/10/24 11:58 adhesive tape [Adhesive Tape] Allergy Mild CONTACT Verified 01/10/24 11:58 DERMATITIS empagliflozin AdvReac Severe Dizziness Verified 01/10/24 11:58 [From Jardiance] flecainide [From Tambocor] AdvReac Severe HEART Verified 01/10/24 11:58 RACING Biaxin AdvReac Intermediate plapitation Verified 01/10/24 11:58 s lisinopril [LISINOPRIL] AdvReac Intermediate cough, Verified 01/10/24 11:58 nausea bacitracin [From Cortisporin] AdvReac Mild EYE Verified 01/10/24 11:58 IRRITATION hydrocortisone AdvReac Mild EYE Verified 01/10/24 11:58 [From Cortisporin] IRRITATION neomycin [From Cortisporin] AdvReac Mild EYE Verified 01/10/24 11:58 IRRITATION Sulfa (Sulfonamide AdvReac Unknown PALPITATION Verified 01/10/24 11:59 Antibiotics) S [SULFA(SULFONAMIDE ANTIBIOTICS)] Home Medications ?Medication ?Instructions ?Recorded ?Confirmed ?Last Taken ?Type coenzyme Q10 100 mg capsule 100 mg PO DAILY 04/28/22 01/10/24 08/30/23 History (CoQ-10) docusate sodium 100 mg capsule 100 mg PO DAILY PRN Constipation 08/30/23 01/10/24 08/30/23 History (Colace) loratadine 10 mg tablet (Wal-itin) 10 mg PO DAILY 08/30/23 01/10/24 08/30/23 History vit C 250 mg-vit E 90 mg-zinc 40 1 tab PO BID 08/30/23 01/10/24 08/30/23 History mg-copper 1 [id number] capsule (PreserVision AREDS-2) insulin lispro 200 unit/mL (3 mL) 2 - 12 unit subcut USEASDIRECTD 11/05/23 01/10/24 Unknown History subcutaneous pen (Humalog KwikPen U-200 Insulin) insulin glargine 100 unit/mL (3 10 unit subcut BEDTIME 11/07/23 01/10/24 Unknown History mL) subcutaneous pen (Lantus Solostar U-100 Insulin) acetaminophen 500 mg tablet 500 mg PO Q4H PRN Pain 01/10/24 01/10/24 Unknown History Exam Height,Weight and Vital Signs: Height 5 ft 4 in Weight 68.946 kg Pertinent Lab Results Pertinent Lab Results: Laboratory Tests 12/28/23 17:21 WBC 8.2 Hgb 12.3 Hct 37.4 Plt Count 262 Sodium 135 Potassium 4.9 Chloride 96 Carbon Dioxide 27 BUN 33 H Creatinine 1.33 Narrative Narrative: EKG 12/2023 Vent. Rate : 088 BPM Atrial Rate : 084 BPM P-R Int : 000 ms QRS Dur : 150 ms QT Int : 388 ms P-R-T Axes : 000 000 -57 degrees QTc Int : 469 ms Ventricular-paced rhythm Abnormal ECG When compared with ECG of 01-DEC-2023 14:30, Vent. rate has increased BY 6 BPM Cardiac Device Check 11/2023 Details: Pacemaker interrogated today. Single-chamber device, programmed VVIR. Battery status 11.6 years. Normal lead parameters. Lower rate set at 80/Min. V pacing 98%. ECHO 08/2023 Conclusions: - The left ventricular systolic function is moderately decreased. The calculated ejection fraction is 35% by biplane method. - There is moderate calcification of the aortic valve. There is moderate aortic valve stenosis. Cardiac cath 09/2023 Conclusions Diagnostic Summary 83-year-old female with left bundle branch block, atrial fibrillation and cardiomyopathy with severe LV dysfunction. She is presenting for diagnostic angiogram. Originally the angiogram was planned for but she developed pulm edema while laying flat on the Clinical Application Specialist table. She has been diuresed and appears to be euvolemic currently. Hemodynamics: Mildly elevated systemic pressures. Normal LVEDP. There is no significant gradient across aortic valve pullback. Coronary anatomy: Right dominant circulation. No significant coronary artery disease to explain patient's symptoms and cardiomyopathy. Nonischemic cardiomyopathy. Diagnostic Recommendations Aggressive primary risk factor modification according to ATP III guidelines. Guideline directed medical therapy. She has left bundle branch block and severe LV dysfunction. Will discuss with electrophysiology about SAND MIXER MACHINE. She has atrial fibrillation but has been labeled permanent atrial fibrillation in the past. Discussed with electrophysiology about SAND MIXER MACHINE and if they plan to do it while she is here then would hold Eliquis for now and resume after procedure. Assessment and Plan Assessment Anesthesia Assessment: Chart Reviewed Final Anesthetic Review Family History of Problems with Anesthesia: No History of Problems with Anesthesia: No
--- NOTE | ~2024-01-17 | IR_ITS ---
History: Patient with osteoporosis and compression fracture at T6 with severe pain. Procedure performed: 1. Balloon kyphoplasty of the T6 vertebral body Physician: Jose D Mckeon MD FSIR Anesthesia: MAC anesthesia was provided by anesthesiology. A total of 14 mL of 1% lidocaine and 12 mL of bupivacaine was utilized for local anesthesia at the level. Specimen: Single core specimen of the vertebral body Drain: None Estimated blood loss: Minimal Complications: None Procedure detail: Informed and written consent was obtained. The patient was positioned prone on the angiography table. Preliminary fluoroscopy showed a compression fracture T6 with an estimated 25% loss of vertebral body height. Appropriate measurements were obtained and marked on the skin. At the planned trocar sites, 1% lidocaine and bupivacaine was injected subcutaneously and extended to the bone using a standard 25-gauge x 1.5 inch needle as well as two 22-gauge spinal needles. After obtaining superficial and deep soft tissue local anesthesia, small incisions were made in the skin with a #11 blade at the two planned trocar sites. Next, under progressive fluoroscopic guidance in the AP and lateral projections, two trocar needles of the [employer] Kyphon system were advanced through the pedicles into the T6 vertebral body. A core biopsy was obtained. We then placed bilateral 10 mm balloons on each size and inflated them simultaneously. The balloons were maximally inflated to create a cavity for the cement, to restore some of the lost height, and to compact bone fragments around the edges and prevent cement leakage. The balloons were then deflated and discarded. We then injected a total of 4.5 mL of polymethyl methacrylate cement directly into the T6 vertebral body. An excellent result was obtained with no leakage into the paraspinal soft tissues or disc space. The trocar needles were removed and sterile dressings were applied. The patient tolerated the procedure well. Summary: Successful balloon kyphoplasty of the T6 vertebral body as described. Biopsy pending. Electronically signed by: Angel Mckeon MD 01/17/2024 03:44 PM EDT
[2024-01-17 12:12] LABS: Prothrombin Time 12.1 SEC (10.9-12.4)
[2024-01-17 12:15] LABS: Partial Thromboplastin Time 32.2 SEC (26.0-36.8)
--- NOTE | 2024-01-17 12:50 | MHC.SHP ---
Pre-Procedural Eval Section A - 24 Hr Update-Section A only Date of Service: 01/17/24 Section B - Complete if H&P > 30 days Chief Complaint: COMPRESSION FX T11, Details of Present Illness: 83 y/o female with osteoporosis and new acute T6 and acute on chronic T8 VB fracture. Relevant Family History (Specify if Yes): No Relevant Social History: None Present Medications: see Short Stay Collaborative assessment Medical History: Significant History History of Previous Operations: Relevant previous surgery/procedure and date(s) Allergies: Allergies Allergy/AdvReac Type Severity Reaction Status Date / Time latex [Latex] Allergy Severe RASH Verified 01/10/24 11:58 cephalexin [CEPHALEXIN] Allergy Intermediate SWELLING Verified 01/10/24 11:58 adhesive tape [Adhesive Tape] Allergy Mild CONTACT Verified 01/10/24 11:58 DERMATITIS empagliflozin AdvReac Severe Dizziness Verified 01/10/24 11:58 [From Jardiance] flecainide [From Tambocor] AdvReac Severe HEART Verified 01/10/24 11:58 RACING Biaxin AdvReac Intermediate plapitation Verified 01/10/24 11:58 s lisinopril [LISINOPRIL] AdvReac Intermediate cough, Verified 01/10/24 11:58 nausea bacitracin [From Cortisporin] AdvReac Mild EYE Verified 01/10/24 11:58 IRRITATION hydrocortisone AdvReac Mild EYE Verified 01/10/24 11:58 [From Cortisporin] IRRITATION neomycin [From Cortisporin] AdvReac Mild EYE Verified 01/10/24 11:58 IRRITATION Sulfa (Sulfonamide AdvReac Unknown PALPITATION Verified 01/10/24 11:59 Antibiotics) S [SULFA(SULFONAMIDE ANTIBIOTICS)] Review of Systems Sugical H&P ROS: Negative: Cardiovascular and Respiratory and Yes, Specify: Constitution (fatigue) and Musculoskeletal (severe mid back pain) Exam Surgical H&P Exam: Normal: Heart, Normal: Lungs, Normal: Skin and Normal: Neurological Plan 83 y/o female with acute T6 and acute on chronic T8 VB compression fracture -T6, possible T8 kyphoplasty Time Spent With Patient Time: Total time managing care of this patient today ____ minutes.
[2024-01-17 13:08] VITALS: BP 188/89; PULSE 84; RESP 18; TEMP 36.6; O2SAT 97
[2024-01-17 13:44] LABS: Glucose, Whole Blood 140 mg/dL (60-115)
[2024-01-17 15:15] VITALS: BP 140/82; PULSE 80; RESP 12; TEMP 36.1; O2SAT 97
[2024-01-17 15:30] VITALS: BP 139/74; PULSE 79; RESP 16; O2SAT 94
[2024-01-17 15:45] VITALS: BP 136/76; PULSE 80; RESP 16; O2SAT 94
[2024-01-17 16:00] VITALS: BP 134/76; PULSE 80; RESP 16; O2SAT 93
[2024-01-17 16:15] VITALS: BP 138/80; PULSE 80; RESP 16; O2SAT 95
== END 2024-01-17 17:08 | disposition home or self-care (01) ==
PROVIDERS: Physician Assistant Surgical; PCP Internal Medicine; Visit Provider Radiology Vascular & Interventional Radiology
DX: M80.08XA Age-related osteoporosis with current pathological fracture, vertebra(e), initial encounter for fracture (principal); M89.78 Major osseous defect, other site; I11.0 Hypertensive heart disease with heart failure; I50.9 Heart failure, unspecified; I48.0 Paroxysmal atrial fibrillation; E11.40 Type 2 diabetes mellitus with diabetic neuropathy, unspecified; D50.9 Iron deficiency anemia, unspecified; Z79.4 Long term (current) use of insulin; Z79.01 Long term (current) use of anticoagulants; Z79.899 Other long term (current) drug therapy; Z88.2 Allergy status to sulfonamides; Z88.8 Allergy status to other drugs, medicaments and biological substances; Z91.040 Latex allergy status; L23.1 Allergic contact dermatitis due to adhesives; Z87.891 Personal history of nicotine dependence
CPT/HCPCS: 22513; 36415; 82947; 85610; 85730; 88307; 88311; 88342; J0665; J2003; J2704; J3010; Q9967

== ENCOUNTER → 2024-01-17 12:18 | Outpatient (BNV) | payer MEDICARE, SELFPAY | PROVIDERS: PCP Internal Medicine; Visit Provider Radiology Vascular & Interventional Radiology | DX: M48.54XA Collapsed vertebra, not elsewhere classified, thoracic region, initial encounter for fracture (principal) | CPT/HCPCS: 22513 ==

== ENCOUNTER 2024-01-26 08:07 | Outpatient (REF) | payer MEDICARE, SELFPAY ==
[2024-01-26 11:13] LABS: MANUAL DIFF FLAG NO
[2024-01-26 11:29] LABS: Basophils Percent Auto 0.5 % (0-2); Eosinophils Absolute Auto 0.4 X10*3/uL (0.0-0.4); Eosinophils Percent Auto 5.5 % (0-4); Hemoglobin 11.9 g/dl (12.0-16.0); Imm Gran Abs Auto 0.06 X10*3/uL (0.00-0.03); Imm Gran Pct Auto 0.8 % (0.0-0.4); Lymphocytes Absolute Auto 1.7 X10*3/uL (1.2-4.9); Lymphocytes Percent Auto 23.3 % (20-40); Mean Corpuscular HGB Conc 32.2 g/dl (31.0-35.0); Mean Corpuscular Hemoglobin 27.2 pg (27.0-33.0); Mean Corpuscular Volume 84.5 fL (80.0-98.0); Mean Platelet Volume 9.5 fL (9.4-12.3); Monocytes Absolute Auto 0.8 X10*3/uL (0.1-1.2); Monocytes Percent Auto 10.8 % (2-11); Neutrophils Absolute Auto 4.4 x10*3/uL (2.0-8.3); Neutrophils Percent Auto 59.1 % (45-73); Platelet Count 340 X10*3/uL (160-400); Red Blood Count 4.38 X10*6/uL (4.20-5.50); Red Cell Distribution Width 17.2 % (11.0-16.0); White Blood Count 7.4 X10*3/uL (4.8-10.8)
[2024-01-26 11:37] LABS: INTERNATIONAL NORM RATIO 1.1 (0.9-1.1); Prothrombin Time 12.9 SEC (10.9-12.4)
[2024-01-26 11:45] LABS: Alanine Aminotransferase 6 U/L (0-31); Anion Gap 18 (12-20); Aspartate Amino Transferase 22 U/L (5-31); Blood Urea Nitrogen 17 mg/dL (9-16); Calcium 9.9 mg/dL (8.4-10.2); Carbon Dioxide 25 mmol/L (22-29); Chloride 99 mmol/L (96-108); Cholesterol 140 mg/dL (<200); Estimated Glomerular Filt Rate > 60; Glucose Fasting 158 mg/dL (60-99); HDL Cholesterol 45 mg/dL (>40); Iron 66 mcg/dL (30-160); LDL Cholesterol Calculated 60 mg/dL (<100); Percent Iron Saturation 21 % (15-50); Potassium 4.2 mmol/L (3.3-5.1); Sodium 138 mmol/L (135-145); Total Iron Binding Capacity 312 mcg/dL (228-428); Triglycerides 176 mg/dL (<150); Unsaturated Iron Binding 246 ug/dL
[2024-01-26 11:51] LABS: Vitamin D 25-OH Total 51.6 ng/mL (>30)
[2024-01-26 11:52] LABS: Creatinine Urine 54.25 mg/dL; Microalbum/Creatinine Ratio Ur 267.2 ug/mg cr (<30)
== END 2024-01-26 08:08 | disposition home or self-care (01) ==
LOC: HO.HMGCLDS 08:07
PROVIDERS: PCP Internal Medicine; Referring Provider Internal Medicine; Visit Provider Internal Medicine
DX: E11.40 Type 2 diabetes mellitus with diabetic neuropathy, unspecified (principal); Z79.4 Long term (current) use of insulin; E78.5 Hyperlipidemia, unspecified; I10 Essential (primary) hypertension; Z79.01 Long term (current) use of anticoagulants; D64.9 Anemia, unspecified; I50.23 Acute on chronic systolic (congestive) heart failure
CPT/HCPCS: 36415; 80048; 80061; 82043; 82306; 82570; 83540; 84450; 84460; 85025; 85610

== ENCOUNTER 2024-01-28 13:43 | Outpatient (AMB) | payer MEDICARE, SELFPAY ==
--- NOTE | 2024-01-28 14:00 | A.OFFVIS_ITS ---
Vital Signs 01/28/24 14:01 Height 5 ft 4 in Weight 150 lb 12.739 oz BMI 25.9 BP 110/50 L Blood Pressure Location Lt brachial Position Sitting Pulse 70 Intake Visit Reasons: 2 mth fu w/ caleb [employer] Required: No Accompanied by: Daughter Allergies latex [Latex] Allergy (Severe, Verified 01/10/24 11:58) RASH cephalexin [CEPHALEXIN] Allergy (Intermediate, Verified 01/10/24 11:58) SWELLING adhesive tape [Adhesive Tape] Allergy (Mild, Verified 01/10/24 11:58) CONTACT DERMATITIS empagliflozin [From Jardiance] Adverse Reaction (Severe, Verified 01/10/24 11:58) Dizziness flecainide [From Tambocor] Adverse Reaction (Severe, Verified 01/10/24 11:58) HEART RACING Biaxin Adverse Reaction (Intermediate, Verified 01/10/24 11:58) plapitations lisinopril [LISINOPRIL] Adverse Reaction (Intermediate, Verified 01/10/24 11:58) cough, nausea bacitracin [From Cortisporin] Adverse Reaction (Mild, Verified 01/10/24 11:58) EYE IRRITATION hydrocortisone [From Cortisporin] Adverse Reaction (Mild, Verified 01/10/24 11:5 8) EYE IRRITATION neomycin [From Cortisporin] Adverse Reaction (Mild, Verified 01/10/24 11:58) EYE IRRITATION Sulfa (Sulfonamide Antibiotics) [SULFA(SULFONAMIDE ANTIBIOTICS)] Adverse Reaction (Unknown, Verified 01/10/24 11:59) PALPITATIONS Medication List - Last Reconciled 01/28/24 by Geoff Callahan MD acetaminophen 500 mg PO Q4H PRN apixaban (Eliquis) 5 mg PO BID coenzyme Q10 (CoQ-10) 100 mg PO DAILY docusate sodium (Colace) 100 mg PO DAILY PRN furosemide (Lasix) 40 mg PO DAILY gabapentin 100 mg PO BEDTIME insulin glargine (Lantus Solostar U-100 Insulin) 10 units subcut BEDTIME insulin lispro (Humalog KwikPen U-200 Insulin) 2 - 12 units subcut USEASDIRECTD loratadine (Wal-itin) 10 mg PO DAILY losartan 50 mg PO DAILY metformin 1,000 mg PO BID metoprolol succinate ER 25 mg PO DAILY pantoprazole 40 mg PO DAILY@0630 pen needle, diabetic (BD Ultra-Fine Mini Pen Needle) As directed QID ac and hs rosuvastatin 5 mg PO MOWEFR 90 days spironolactone 25 mg PO DAILY tramadol 50 mg PO Q8H PRN vit C,G-Ph-mfxhj-lutein-zeaxan 250-90-40-1 mg (PreserVision AREDS-2) 1 tab PO BID HPI Comments Details: Aminah returns for follow-up. Because of recurring episodes of pulmonary edema, she underwent cardiac catheterization. In fact even during the catheterization attempt she developed pulmonary edema. Any case, there was no significant CAD. Then underwent AV dacia ablation followed by conduction system pacing. Since that time, no new cardiac symptoms. Shortness of breath is improved. She has been having back pain but nothing specifically cardiac. [facility] Medical History (Updated 01/10/24 @ 12:06 by Anastasia Brown, RN) [place] (hard of hearing) Wears hearing aid in both ears Uses walker Hx of cardiac pacemaker (10/06/23) Age-related osteoporosis with current pathological fracture, vertebra(e), initial encounter for fracture Compression fracture of lumbar spine, non-traumatic Nontraumatic compression fracture of thoracic vertebra Anemia Moderate aortic stenosis Diabetes mellitus Congestive heart failure Urinary tract infection Hypertension Paroxysmal atrial fibrillation Cholelithiasis Renal cyst Nephrolithiasis Pulmonary hypertension Non-rheumatic mitral regurgitation Permanent atrial fibrillation Right nephrolithiasis Compression deformity of vertebra Microcytic anemia Heartburn Atrophic vaginitis Osteopenia Osteoarthritis of knees, bilateral Essential hypertension Dyslipidemia Type 2 diabetes mellitus with diabetic neuropathy, with long-term current use of insulin Surgical History History of cardiac radiofrequency ablation (RFA) Hx of cardiac catheterization History of esophagogastroduodenoscopy (EGD) (~10/2022) History of lumbar discectomy History of lobectomy of lung History of hysterectomy History of total right knee replacement (TKR) Lumbar radiculopathy Family History Father Diabetes mellitus Mother Diabetes mellitus Myocardial infarction Sister Cancer Sister No problems noted. Son No problems noted. Daughter No problems noted. Social History Household Members: None Housing: House Are you a primary home health care case manager to a significant other at home: No Do you presently have visiting nurse or other home services: No (supportive family) Unable to assess alcohol history related to: Unable to respond Alcohol intake: never Patient Tobacco Use Status: Former Tobacco user Tobacco use type: Cigarette e-Cigarette/Vaping Use: Never Used Advance Directives Date on File: 06/20/23 service: No Current occupational status: retired Cognitive needs: No Hearing needs: Yes Vision needs: Yes Review of Systems Const Denies chills, Denies fatigue, Denies fever(s), Denies weight gain and Denies weight loss ENT Denies dizziness Card Denies chest pain, Denies leg edema, Denies lightheadedness, Denies palpitations, Denies dyspnea on exertion, Denies orthopnea and Denies other Resp Denies cough and Denies dyspnea on exertion GI Denies hematochezia and Denies change in stool character Musc Denies abnormal gait, Denies muscle weakness, Denies numbness, Denies radiating pain into limb and Denies tingling Neuro Denies abnormal gait, Denies dizziness, Denies numbness and Denies tingling Endo Denies fatigue and Denies palpitations Physical Exam Vital Signs: Last Vital Signs Pulse 70 01/28/24 14:01 BP 110/50 L 01/28/24 14:01 BMI result Body Mass Index 25.9 Const General: comfortable and no acute distress Orientation/consciousness: patient oriented x3 HEENT Other: Unremarkable Head: Yes normal to inspection Neck Neck: Yes normal visual inspection Chest Chest palpation & inspection: normal inspection of the chest Resp Auscultation: clear to auscultation bilaterally Cardio Palpation: normal PMI Heart sounds: S1 normal heart sound present, S2 normal heart sound present, no gallops, Murmur heart sound present systolic I/ and at the right sternal border and no rubs GI Palpation (GI): Soft to palpation Back/Spine/Pelvis Other: unremarkable Skin General skin exam: no rashes or lesions noted Neuro General: patient oriented x3 Extrem General: Yes normal to inspection Psych Mental Status: mental status grossly normal Office Procedures Cardiac Device Check Cardiac Device Check Details: Pacemaker interrogated today. Single-chamber device, programmed VVI. Battery status 12.8 years. Normal lead parameters. Ventricular pacing 99.6%. Overall, normal device function. [id number] Cardiac Device Check, pacemaker dual lead Procedure code (CPT) selection complete Assessment & Plan Assessment & Plan (1) Chronic combined systolic and diastolic CHF (congestive heart failure): Code(s): I50.42 - Chronic combined systolic (congestive) and diastolic (congestive) heart failure Category: Medical Plan: LVEF on the last echocardiogram from August-35%. Cardiac catheterization with no significant CAD. Clinically, she seems euvolemic. Continue current meds including metoprolol ER, losartan, Lasix, spironolactone. Did not like Jardiance due to side effects. (2) LBBB (left bundle branch block): Code(s): I44.7 - Left bundle-branch block, unspecified Category: Medical Plan: Status post conduction system pacing. (3) Non-rheumatic aortic stenosis: Code(s): I35.0 - Nonrheumatic aortic (valve) stenosis Category: Medical Plan: In the echocardiogram, aortic valve moderately calcified with moderate stenosis. In the cardiac catheterization, no significant gradient across aortic valve pullback. Can monitor for now. (4) Permanent atrial fibrillation: Code(s): I48.21 - Permanent atrial fibrillation Category: Medical Plan: Status post AV dacia ablation. Continue Eliquis. (5) Essential hypertension: Code(s): I10 - Essential (primary) hypertension Category: Medical Plan: Stable. No changes. (6) Pacemaker: Code(s): Z95.0 - Presence of cardiac pacemaker Category: Medical Plan: Functioning normally. Plan Discussed with family who came for appointment. Orders: Orders CA echo transthoracic complete 6 Months Geoff Callahan MD I50.42 - Chronic combined systolic (congestive) and diastolic (congestive) heart failure Medications: Changed From tramadol Take together with Tylenol 500 mg every 8 hours as needed for pain relief 50 mg PO Q8H PRN 14 tabs 0RF pain M48.56XA - Collapsed vertebra, not elsewhere classified, lumbar region, initial encounter for fracture To tramadol Take together with Tylenol 500 mg every 8 hours as needed for pain relief 50 mg PO Q8H PRN M48.56XA - Collapsed vertebra, not elsewhere classified, lumbar region, initial encounter for fracture Patricia Nicole MD Coding Level of Care Code Est Pt Level 4 (55318) Diagnoses Chronic combined systolic and diastolic CHF (congestive heart failure) I50.42 LBBB (left bundle branch block) I44.7 Non-rheumatic aortic stenosis I35.0 Permanent atrial fibrillation I48.21 Essential hypertension I10 Pacemaker Z95.0 CPT Codes Cardiac Device Check - Cardiac Device 2: [id number] Cardiac Device Check, pacemaker dual lead ([id number])
[2024-01-28 14:01] VITALS: BP 110/50; PULSE 70; BMI 25.9
== END 2024-01-28 14:28 | disposition home or self-care (01) ==
PROVIDERS: PCP Internal Medicine; Visit Provider Internal Medicine
DX: I50.42 Chronic combined systolic (congestive) and diastolic (congestive) heart failure (principal); I44.7 Left bundle-branch block, unspecified; I35.0 Nonrheumatic aortic (valve) stenosis; I48.21 Permanent atrial fibrillation; I10 Essential (primary) hypertension; Z95.0 Presence of cardiac pacemaker
CPT/HCPCS: 93280; 99214

== ENCOUNTER → 2024-01-28 13:43 | Outpatient (BNVA) | payer MEDICARE, SELFPAY | PROVIDERS: PCP Internal Medicine; Visit Provider Internal Medicine | DX: I35.0 Nonrheumatic aortic (valve) stenosis (principal); I48.21 Permanent atrial fibrillation; I11.0 Hypertensive heart disease with heart failure; I50.42 Chronic combined systolic (congestive) and diastolic (congestive) heart failure; I44.7 Left bundle-branch block, unspecified; Z45.018 Encounter for adjustment and management of other part of cardiac pacemaker | CPT/HCPCS: 93280; 99212 ==

== ENCOUNTER → 2024-02-03 23:59 | Outpatient (BNV) | payer MEDICARE, SELFPAY ==
--- NOTE | 2024-02-05 13:30 | MHC.OFFVIS ---
Intake Visit Reasons: Remote device check- [employer] Allergies latex [Latex] Allergy (Severe, Verified 02/04/24 15:08) RASH cephalexin [CEPHALEXIN] Allergy (Intermediate, Verified 02/04/24 15:08) SWELLING adhesive tape [Adhesive Tape] Allergy (Mild, Verified 02/04/24 15:08) CONTACT DERMATITIS empagliflozin [From Jardiance] Adverse Reaction (Severe, Verified 02/04/24 15:08) Dizziness flecainide [From Tambocor] Adverse Reaction (Severe, Verified 02/04/24 15:08) HEART RACING Biaxin Adverse Reaction (Intermediate, Verified 02/04/24 15:08) plapitations lisinopril [LISINOPRIL] Adverse Reaction (Intermediate, Verified 02/04/24 15:08) cough, nausea bacitracin [From Cortisporin] Adverse Reaction (Mild, Verified 02/04/24 15:08) EYE IRRITATION hydrocortisone [From Cortisporin] Adverse Reaction (Mild, Verified 02/04/24 15:08) EYE IRRITATION neomycin [From Cortisporin] Adverse Reaction (Mild, Verified 02/04/24 15:08) EYE IRRITATION Sulfa (Sulfonamide Antibiotics) [SULFA(SULFONAMIDE ANTIBIOTICS)] Adverse Reaction (Unknown, Verified 02/04/24 15:08) PALPITATIONS PFSH Medical History (Updated 02/05/24 @ 08:54 by Marquis Zamudio MD) Degenerative disc disease, thoracic Degenerative disc disease, lumbar [place] (hard of hearing) Wears hearing aid in both ears Uses walker Hx of cardiac pacemaker (10/06/23) Age-related osteoporosis with current pathological fracture, vertebra(e), initial encounter for fracture Compression fracture of lumbar spine, non-traumatic Nontraumatic compression fracture of thoracic vertebra Anemia Moderate aortic stenosis Diabetes mellitus Congestive heart failure Urinary tract infection Hypertension Paroxysmal atrial fibrillation Cholelithiasis Renal cyst Nephrolithiasis Pulmonary hypertension Non-rheumatic mitral regurgitation Permanent atrial fibrillation Right nephrolithiasis Compression deformity of vertebra Microcytic anemia Heartburn Atrophic vaginitis Osteopenia Osteoarthritis of knees, bilateral Essential hypertension Dyslipidemia Type 2 diabetes mellitus with diabetic neuropathy, with long-term current use of insulin Surgical History (Updated 02/05/24 @ 08:37 by Marquis Zamudio MD) History of cardiac radiofrequency ablation (RFA) Hx of cardiac catheterization History of esophagogastroduodenoscopy (EGD) (~10/2022) History of lumbar discectomy History of lobectomy of lung History of hysterectomy History of total right knee replacement (TKR) Lumbar radiculopathy Family History Father Diabetes mellitus Mother Diabetes mellitus Myocardial infarction Sister Cancer Sister No problems noted. Son No problems noted. Daughter No problems noted. Social History Household Members: None Housing: House Are you a primary senior care manager to a significant other at home: No Do you presently have visiting nurse or other home services: No (supportive family) Unable to assess alcohol history related to: Unable to respond Alcohol intake: never Patient Tobacco Use Status: Former Tobacco user Tobacco use type: Cigarette e-Cigarette/Vaping Use: Never Used Advance Directives Date on File: 06/20/23 service: No Current occupational status: retired Cognitive needs: No Hearing needs: Yes Vision needs: Yes Office Procedures Cardiac Device Check Cardiac Device Check Details: Date of service- 02/03/2024 ; Battery life >12 years; normal lead parameters; BLEACHER LARD 83%; no significant arrhythmias. Overall normal device function. [id number] Cardiac Device Interrogation, pacemaker Procedure code (CPT) selection complete Assessment & Plan Assessment & Plan (1) Pacemaker: Code(s): Z95.0 - Presence of cardiac pacemaker Category: Medical (2) Congestive heart failure: Code(s): I50.9 - Heart failure, unspecified Category: Medical Qualifiers: Heart failure type: unspecified Heart failure chronicity: unspecified Qualified Code(s): I50.9 - Heart failure, unspecified (3) LBBB (left bundle branch block): Code(s): I44.7 - Left bundle-branch block, unspecified Category: Medical Plan x Coding Level of Care Code Procedure Only Diagnoses Pacemaker Z95.0 Congestive heart failure, unspecified HF chronicity, unspecified heart failure type I50.9 Heart failure type: unspecified Heart failure chronicity: unspecified LBBB (left bundle branch block) I44.7 CPT Codes Cardiac Device Check - Cardiac Device 12: [id number] Cardiac Device Interrogation, pacemaker ([id number])
== END ==
PROVIDERS: PCP Internal Medicine; Visit Provider Internal Medicine
DX: I50.9 Heart failure, unspecified (principal); I44.7 Left bundle-branch block, unspecified; Z95.0 Presence of cardiac pacemaker
CPT/HCPCS: 93294

== ENCOUNTER 2024-02-04 14:43 | Outpatient (AMB) | payer MEDICARE, SELFPAY ==
--- NOTE | 2024-02-04 14:50 | MHC.OFFVIS ---
Vital Signs 02/04/24 15:09 Height 5 ft 4 in Weight 153 lb BMI 26.3 BP 144/70 H Blood Pressure Location Lt brachial Position Sitting Respiration 16 Pulse 85 Pulse Source Pulse Oximeter Pulse Oximetry (%) 94 Oxygen Delivery Method Room Air Intake Visit Reasons: Collapsed Vertebra Intake Note: Patient comes in for initial visit was referred by [facility] primary care. Reports pain 12/26. Allergies latex [Latex] Allergy (Severe, Verified 02/04/24 15:08) RASH cephalexin [CEPHALEXIN] Allergy (Intermediate, Verified 02/04/24 15:08) SWELLING adhesive tape [Adhesive Tape] Allergy (Mild, Verified 02/04/24 15:08) CONTACT DERMATITIS empagliflozin [From Jardiance] Adverse Reaction (Severe, Verified 02/04/24 15:08) Dizziness flecainide [From Tambocor] Adverse Reaction (Severe, Verified 02/04/24 15:08) HEART RACING Biaxin Adverse Reaction (Intermediate, Verified 02/04/24 15:08) plapitations lisinopril [LISINOPRIL] Adverse Reaction (Intermediate, Verified 02/04/24 15:08) cough, nausea bacitracin [From Cortisporin] Adverse Reaction (Mild, Verified 02/04/24 15:08) EYE IRRITATION hydrocortisone [From Cortisporin] Adverse Reaction (Mild, Verified 02/04/24 15:08) EYE IRRITATION neomycin [From Cortisporin] Adverse Reaction (Mild, Verified 02/04/24 15:08) EYE IRRITATION Sulfa (Sulfonamide Antibiotics) [SULFA(SULFONAMIDE ANTIBIOTICS)] Adverse Reaction (Unknown, Verified 02/04/24 15:08) PALPITATIONS HPI Comments Details: Aminah is very pleasant 83 years old female who presents today in my office with complains on the pain in the right-sided thoracic spine with radiation of the pain to the right flank and anterior right chest. She reported that her pain started on 11/27/2023. She complained on pain starting on her when she woke up 1 morning and tried to stretch herself. Her pain was severe and she was sent for CT scan of the thoracic spine in the eventually for the MRI of the thoracic spine which demonstrated multiple compression fractures in the thoracic spine. She had kyphoplasty performed on 01/17/[address] Juarez. The kyphoplasty was done on T6 vertebra, the T8 vertebra was left intact. The patient continued to complain on pain in the thoracic spine and she was sent to pain management to help with her pain. She reports stabbing and electrical shock-like pain in the area described above. She reports that she can not sleep normally can not do activities of daily living can not take care of herself can not function normally. She is retired individual. She needs walker for ambulation. Movements aggravate her pain. Tramadol prescribed by primary care physician make her pain slightly better. In terms of tissue damage he reports her pain is jumping, flushing, shooting, stabbing, lancinating, sharp, lacerating, sickening, spreading, radiating, piercing. She reported that she was implanted with pacemaker on 10/17/2023 but this pacemaker is compatible with MRI. Her past medical history is significant for history of atrial fibrillation, hypertension, dizziness and fainting, history of kidney stones, history of kidney disease however her creatinine is normal, history of gallstones history of GERD and history of arthritis. She had an MRI performed on 12/07/2023 in [facility]. She never had physical therapy or chiropractic manipulations they are not indicated for this severe condition. She never had any injections. History of kyphoplasty 01/17/2024. [facility] Medical History (Updated 02/05/24 @ 08:54 by Marquis Zamudio MD) Degenerative disc disease, thoracic Degenerative disc disease, lumbar [place] (hard of hearing) Wears hearing aid in both ears Uses walker Hx of cardiac pacemaker (10/06/23) Age-related osteoporosis with current pathological fracture, vertebra(e), initial encounter for fracture Compression fracture of lumbar spine, non-traumatic Nontraumatic compression fracture of thoracic vertebra Anemia Moderate aortic stenosis Diabetes mellitus Congestive heart failure Urinary tract infection Hypertension Paroxysmal atrial fibrillation Cholelithiasis Renal cyst Nephrolithiasis Pulmonary hypertension Non-rheumatic mitral regurgitation Permanent atrial fibrillation Right nephrolithiasis Compression deformity of vertebra Microcytic anemia Heartburn Atrophic vaginitis Osteopenia Osteoarthritis of knees, bilateral Essential hypertension Dyslipidemia Type 2 diabetes mellitus with diabetic neuropathy, with long-term current use of insulin Surgical History (Updated 02/05/24 @ 08:37 by Marquis Zamduio MD) History of cardiac radiofrequency ablation (RFA) Hx of cardiac catheterization History of esophagogastroduodenoscopy (EGD) (~10/2022) History of lumbar discectomy History of lobectomy of lung History of hysterectomy History of total right knee replacement (TKR) Lumbar radiculopathy Family History Father Diabetes mellitus Mother Diabetes mellitus Myocardial infarction Sister Cancer Sister No problems noted. Son No problems noted. Daughter No problems noted. Social History Household Members: None Housing: House Are you a primary rn intensive care unit to a significant other at home: No Do you presently have visiting nurse or other home services: No (supportive family) Unable to assess alcohol history related to: Unable to respond Alcohol intake: never Patient Tobacco Use Status: Former Tobacco user Tobacco use type: Cigarette e-Cigarette/Vaping Use: Never Used Advance Directives Date on File: 06/20/23 service: No Current occupational status: retired Cognitive needs: No Hearing needs: Yes Vision needs: Yes Review of Systems Const Reports fatigue, Reports lethargy and Reports weakness ENT Reports Normal hearing present Card Reports as per HPI Resp Reports no additional complaints GI Reports as per HPI Reports as per HPI Musc Reports as per HPI Neuro Reports no additional complaints, Reports Normal hearing present, Denies Abnormal speech present, Denies confusion, Denies Sensory deficit (Neuro) and Reports weakness Psych Reports no additional complaints and Denies confusion Endo Reports fatigue Physical Exam Vital Signs: Last Vital Signs Pulse 85 02/04/24 15:09 Resp 16 02/04/24 15:09 BP 144/70 H 02/04/24 15:09 Pulse Ox 94 02/04/24 15:09 Oxygen Delivery Method Room Air 02/04/24 15:09 BMI result Body Mass Index 26.3 Const General: no acute distress; No confusion Orientation/consciousness: patient oriented x3 and No confusion Eyes General: appearance normal, both eyes and all related structures Pupils: Equal, round and reactive pupils present EOM: EOMs intact bilaterally Neck Neck: Yes full ROM Chest Chest palpation & inspection: normal inspection of the chest Resp Effort & Inspection: normal respiratory effort, able to speak in complete sentences, normal respiratory pattern, no audible wheezes and no cough Cardio Jugular venous distension: no JVD GI Inspection: Yes normal to inspection Back/Spine/Pelvis Other: Tenderness on palpation in thoracic spine entire length more on the right and less on the left. Reports weakness in bilateral lower extremities. Reports numbness in bilateral lower extremities. Reports incontinence with urine. Reports severe constipation probably secondary to opioid medications. Neuro General: patient oriented x3, gait normal and No confusion Cranial nerves: Yes CN's II-XII intact bilaterally, Yes Equal, round and reactive pupils present, Yes Normal hearing present and Yes Ability to bilaterally elevate shoulders present Speech: No Abnormal speech present Gait exam (Neuro): Normal gait present Motor exam (neuro): 5/5 motor strength present throughout Sensory Exam: No Sensory deficit (Neuro) Extrem General: No pedal edema Psych Speech and movement: Normal speech and movement present Affect: normal affect Attitude: cooperative Thought process: Normal thought process present Thought content: Normal thought content present Insight: Good insight present (Psych) Judgement: Good judgement present (Psych) Results Reviewed Results Reviewed: MR thoracic spine without contrast MRI lumbar spine without contrast INDICATION: Collapsed vertebrae COMPARISON: CT chest, abdomen and pelvis on 12/01/2023 and 12/13/2021 as well as MRI lumbar spine on 12/19/2021 TECHNIQUE: Multiplanar multisequence MR imaging of the thoracic and lumbar spine without administration of intravenous contrast. FINDINGS: Multiple compression fractures throughout the thoracic and lumbar spine as follows: -Acute compression fracture of T6 with 40% vertebral body height loss anteriorly. There is involvement of the left greater than right posterior elements. No retropulsion. -Acute on chronic compression fracture deformity of T8 with severe vertebral body height loss (vertebra plana appearance). 3 mm retropulsion inferiorly resulting in mild spinal canal stenosis at T8-9. -Chronic compression fracture deformity of T11 with interval mild progression of vertebral body height loss anteriorly. 2 mm retropulsion without significant spinal canal stenosis. The visualized spinal cord is normal in caliber. No abnormal cord signal. The conus medullaris terminates at L1. Chronic compression fracture deformity of T12, unchanged without significant retropulsion. Diffuse atrophy of the paravertebral musculature. Bilateral renal cysts. Right adrenal gland nodule. THORACIC SPINE: Evaluation of the normal thoracic kyphosis. Grade 1 anterolisthesis at T2-3. The remaining vertebral body heights are preserved. Diffusely heterogeneous bone marrow signal is likely degenerative. Multilevel disc desiccation. Multilevel endplate osteophytosis. Multilevel disc bulges throughout the thoracic spine without significant spinal canal stenosis. Multilevel neural foraminal narrowing bilaterally, worse and moderate to severe at T8-9 bilaterally. There is mild spinal canal stenosis at T8-9 secondary to retropulsion. No other sites of significant spinal canal stenosis. LUMBAR SPINE: Levocurvature of the thoracolumbar junction and mild dextrocurvature of the lower lumbar spine. Preservation of the normal lumbar lordosis. Grade 1 anterolisthesis at L4-5. Mild retrolisthesis at L1-2 and L2-3. Diffusely heterogeneous bone marrow signal is likely degenerative. The vertebral body heights are preserved. Multilevel disc desiccation and disc height loss, worse and severe at L5-S1. Multilevel endplate osteophytosis. T12-L1: Diffuse disc bulge. Bilateral facet arthrosis. No significant spinal canal or neural foraminal narrowing. L1-2: Diffuse disc bulge with superimposed right subarticular disc protrusion, unchanged. Bilateral facet arthrosis. Moderate right and mild left neural foraminal narrowing, unchanged. No significant spinal canal stenosis. L2-3: Diffuse disc bulge and bilateral facet arthrosis. Moderate spinal canal stenosis, progressed from prior. Moderate left and [id number] right neural foraminal narrowing with the disc abutting the exiting L2 nerve roots, unchanged. L3-4: Diffuse disc bulge and bilateral facet arthrosis. Mild spinal canal stenosis, new. Moderate left and minimal right neural foraminal narrowing with the disc abutting the exiting L3 nerve roots bilaterally, unchanged. L4-5: Diffuse disc bulge with superimposed annular fissure. Ligamentum flavum hypertrophy and bilateral facet arthrosis. Mild spinal canal stenosis, new. Mild to moderate right and mild left neural foraminal narrowing, unchanged with the disc abutting the exiting L4 nerve roots bilaterally. L5-S1: Diffuse disc bulge with superimposed annular fissure. Bilateral facet arthrosis. No significant spinal canal stenosis. Mild to moderate right neural foraminal narrowing with mass effect on the exiting L5 nerve roots, unchanged. MR/MR thoracic spine wo con IMPRESSION: -Acute compression fracture of T6 with 40% vertebral body height loss anteriorly. No retropulsion. -Acute on chronic compression fracture of T8 with severe vertebral body height loss. 3 mm retropulsion inferiorly resulting in mild spinal canal stenosis at T8-9. -Chronic compression fracture deformity of T11 and T12 with mild progression of vertebral body height loss anteriorly of T11. -Multilevel degenerative changes of the thoracic and lumbar spine as described above, most significant at L2-3 where there is progressive spinal canal stenosis, now moderate in degree. There is also new mild spinal canal stenosis at L3-4 and L4-5. Electronically signed by: Josefina Montemayor MD 12/27/2023 04:26 PM EDT RP Assessment & Plan Assessment & Plan (1) H/O kyphoplasty: Code(s): Z98.890 - Other specified postprocedural states Category: Surgical (2) Degenerative disc disease, thoracic: Code(s): M51.34 - Other intervertebral disc degeneration, thoracic region Category: Medical (3) Compression fracture of thoracic vertebra: Code(s): S22.000A - Wedge compression fracture of unspecified thoracic vertebra, initial encounter for closed fracture Category: Medical (4) Dorsalgia of thoracic region: Code(s): M54.6 - Pain in thoracic spine Category: Medical (5) Radiculopathy, thoracic region: Code(s): M54.14 - Radiculopathy, thoracic region Category: Medical Plan For the evaluation of spinal stenosis secondary to continued progression of the retropulsion of the T8 vertebra with possibility of spinal stenosis getting more severe than it was described on the MRI before the kyphoplasty I will send the patient for the CT scan with and without contrast as soon as possible. Unfortunately nothing much could be given to the patient in terms of the spinal stenosis unless her stenosis is critical. I offered the patient and I gave her brochure about intrathecal drug delivery system pain pump. I also discussed with her chronic opioid program. I made the patient clear that the process to joint chronic opioid program is very long and her better choice at least for now to continue her tramadol with primary care physician Dr. Nicole. I recommended patient to discuss with Dr. Nicole possibility of starting her on Movantik to help her with opioid induced constipation. If the patient would like to continue with intrathecal drug delivery system pain pump we need to perform psychological evaluation as soon as possible and then go for a trial. Orders: Orders CT thoracic spine wo/w IV con Today M51.34 - Other intervertebral disc degeneration, thoracic region, M54.14 - Radiculopathy, thoracic region, M54.6 - Pain in thoracic spine, S22.000A - Wedge compression fracture of unspecified thoracic vertebra, initial encounter for closed fracture, Z98.890 - Other specified postprocedural states Coding Level of Care Code New Pt Level 3 (69677) Diagnoses H/O kyphoplasty Z98.890 Degenerative disc disease, thoracic M51.34 Compression fracture of thoracic vertebra S22.000A Dorsalgia of thoracic region M54.6 Radiculopathy, thoracic region M54.14
[2024-02-04 15:09] VITALS: BP 144/70; PULSE 85; RESP 16; O2SAT 94; BMI 26.3
== END 2024-02-04 15:54 | disposition home or self-care (01) ==
PROVIDERS: PCP Internal Medicine; Visit Provider Anesthesiology
DX: M51.34 Other intervertebral disc degeneration, thoracic region (principal); M54.14 Radiculopathy, thoracic region; S22.000A Wedge compression fracture of unspecified thoracic vertebra, initial encounter for closed fracture; Z98.890 Other specified postprocedural states
CPT/HCPCS: 99203

== ENCOUNTER → 2024-02-04 14:43 | Outpatient (BNVA) | payer MEDICARE, SELFPAY | PROVIDERS: PCP Internal Medicine; Visit Provider Anesthesiology | DX: M51.34 Other intervertebral disc degeneration, thoracic region (principal); M54.14 Radiculopathy, thoracic region; S22.000A Wedge compression fracture of unspecified thoracic vertebra, initial encounter for closed fracture; X58.XXXA Exposure to other specified factors, initial encounter; Y93.9 Activity, unspecified; Y92.9 Unspecified place or not applicable; Y99.9 Unspecified external cause status; Z98.890 Other specified postprocedural states | CPT/HCPCS: 99202 ==

== ENCOUNTER 2024-02-07 11:18 | Outpatient (REF) | payer MEDICARE, SELFPAY ==
[2024-02-07 16:57] LABS: Appearance Urine Cloudy; Color Urine Yellow; Glucose Urine UA Negative (Negative); Leukocyte Esterase Urine Large (3+) (Negative); Nitrite Urine Negative (Negative); PH 5.5 (5.0-9.0); Specific Gravity - Urine <= 1.005 (1.005-1.025); UMIC TRIGGER UACC YES; Urine Blood Negative (Negative); Urine Ketones Negative (Negative); Urine Protein Negative (Neg-Trace)
[2024-02-07 17:03] LABS: Bacteria Urine 4+ (None Seen); Hyaline Casts Urine 0-2 /LPF (0-2); RBC Urine 0-2 /HPF (0-2); Squamous Epithelial Cell Urine 0-2 /HPF (0-2); UACC Culture Trigger YES; WBC Urine >50 /HPF (0-5)
== END 2024-02-07 11:19 | disposition home or self-care (01) ==
LOC: HO.LAB 11:18
PROVIDERS: PCP Internal Medicine; Visit Provider Internal Medicine
DX: M54.14 Radiculopathy, thoracic region (principal); M54.6 Pain in thoracic spine; E78.5 Hyperlipidemia, unspecified; I10 Essential (primary) hypertension; E11.40 Type 2 diabetes mellitus with diabetic neuropathy, unspecified; K59.03 Drug induced constipation; T40.2X5A Adverse effect of other opioids, initial encounter; K29.50 Unspecified chronic gastritis without bleeding; K44.9 Diaphragmatic hernia without obstruction or gangrene; R35.0 Frequency of micturition; Z79.4 Long term (current) use of insulin; Z79.891 Long term (current) use of opiate analgesic; Z79.899 Other long term (current) drug therapy; Z98.890 Other specified postprocedural states
CPT/HCPCS: 81001; 81003; 83036; 87086; 87088; 87186; 99212; 99397

== ENCOUNTER 2024-02-07 11:18 | Outpatient (AMB) | payer MEDICARE, SELFPAY ==
--- NOTE | 2024-02-07 11:21 | A.OFFPC_ITS ---
Vital Signs 02/07/24 11:26 Height 5 ft 4 in Weight 153 lb BMI 26.3 BP 158/80 H Blood Pressure Location Lt brachial Position Sitting Pulse 87 Pulse Source Pulse Oximeter Pulse Oximetry (%) 97 Oxygen Delivery Method Room Air Intake Visit Reasons: f/u after kyphoplasty Intake Note: Pt is here today f/u after kyphoplasty still in alot of pain Allergies latex [Latex] Allergy (Severe, Verified 02/07/24 11:39) RASH cephalexin [CEPHALEXIN] Allergy (Intermediate, Verified 02/07/24 11:39) SWELLING adhesive tape [Adhesive Tape] Allergy (Mild, Verified 02/07/24 11:39) CONTACT DERMATITIS empagliflozin [From Jardiance] Adverse Reaction (Severe, Verified 02/07/24 11:39) Dizziness flecainide [From Tambocor] Adverse Reaction (Severe, Verified 02/07/24 11:39) HEART RACING Biaxin Adverse Reaction (Intermediate, Verified 02/07/24 11:39) plapitations lisinopril [LISINOPRIL] Adverse Reaction (Intermediate, Verified 02/07/24 11:39) cough, nausea bacitracin [From Cortisporin] Adverse Reaction (Mild, Verified 02/07/24 11:39) EYE IRRITATION hydrocortisone [From Cortisporin] Adverse Reaction (Mild, Verified 02/07/24 11:39) EYE IRRITATION neomycin [From Cortisporin] Adverse Reaction (Mild, Verified 02/07/24 11:39) EYE IRRITATION nitrofurantoin Adverse Reaction (Verified 02/07/24 12:24) Loss of Appetite Medication List - Last Reconciled 02/07/24 by Patricia Nicole MD acetaminophen 500 mg PO Q4H PRN apixaban (Eliquis) 5 mg PO BID coenzyme Q10 (CoQ-10) 100 mg PO DAILY docusate sodium (Colace) 200 mg PO .bedtime furosemide (Lasix) 40 mg PO DAILY gabapentin 100 mg PO BEDTIME insulin glargine (Lantus Solostar U-100 Insulin) 10 units subcut BEDTIME insulin lispro (Humalog KwikPen U-200 Insulin) 2 - 12 units subcut USEASDIRECTD loratadine (Wal-itin) 10 mg PO DAILY losartan 50 mg PO DAILY metformin 1,000 mg PO BID metoprolol succinate ER 25 mg PO DAILY Movantik (naloxegol) 12.5 mg PO QAM NS pantoprazole 40 mg PO DAILY@0630 pen needle, diabetic (BD Ultra-Fine Mini Pen Needle) As directed QID ac and hs rosuvastatin 5 mg PO MOWEFR 90 days spironolactone 25 mg PO DAILY tramadol 50 mg PO Q8H PRN vit C,S-Vm-needi-lutein-zeaxan 250-90-40-1 mg (PreserVision AREDS-2) 1 tab PO BID Tobacco use date assessed: 02/07/24 Fall risk assessment: No Falls in past year Last assessed Fall Risk: 02/07/24 Dental Screening Dental Screen Date: 12/03/23 HPI f/u after kyphoplasty HPI Details The patient is an 83-year-old female presenting with chronic back pain, with acute compression fracture of T6 with 40% vertebral body height loss anteriorly s/p kyphoplasty , acute on chronic compression fracture of T8 with severe vertebral body height loss. 3 mm retropulsion inferiorly resulting in mild spinal canal stenosis at T8-9,, chronic compression fracture deformity of T11 and T12 with mild progression of vertebral body height loss anteriorly of T11, and multilevel degenerative changes of the thoracic and lumbar spine, most significant at L2-3 where there is progressive spinal canal stenosis, now moderate in degree. There is also new mild spinal canal stenosis at L3-4 and L4-5.. Her back pain has been persistent despite previous kyphoplasty, with episodes of electric shock-like pain associated with certain movements. She has been taking tramadol 50 mg together with an extra-strength Tylenol every 8 hours which affords only tempo rary relief, still has to take occasional extra doses of Tylenol. Patient states that she gets relief of pain when she lies on her right side . She complains of intermittent swelling in both feet , with occasional numbness and tingling sensation, primarily in the hip down to the knee, were noted, with worsening heaviness experienced recently. She has been on gabapentin for nerve pain, 100 mg at bedtime but does not notice any significant relief for for her pain. She has been referred to Dr. Zamudio to evaluate other treatment options for pain control. He a CT of thoracic spine with and without contrast for evaluation of spinal stenosis secondary to continued progression of the retropulsion of the T8 vertebra with possibility of spinal stenosis getting more severe than it was described on the MRI before the kyphoplasty She was informed that nothing much could be given to the patient in terms of the spinal stenosis unless her stenosis is critical. He also brought up possibility of intrathecal drug delivery system pain pump. It was explained to patient and family that the process to joint chronic opioid program is very long and her better choice at least for now to continue her tramadol with primary care physician. She also has been complaining of getting very constipated, feels very bloated, and gets discomfort in her epigastric area after eating, has to push her belly down to get some relief of the bloating. She had an EGD done by Dr. Campbell last year which showed presence of chronic gastritis, and presence of a hiatal hernia. Several gastric polyps were removed at that time as well. She was prescribed pantoprazole 40 mg 1 capsule twice a day before eating and also prescribed Carafate 10 mL 3 times a day by Dr. Campbell, but patient has not been taking these, except for the pantoprazole, but only takes once a day in a.m., and has not used the Carafate at all. She also has been sedentary for the most part, and wears an abdominal brace most of the time, which in turn could also interfere with the way she digest her food . She also has been having diffuse abdominal bloating, believed to be partly due to medications like tramadol. Previous diagnostic imaging revealed a gallstone, and she displays symptoms consistent with a hiatal hernia and gastritis, exacerbating gastrointestinal discomfort. She also has been having urinary frequency and urgency present now for the last several days. Not accompanied by any fever, no lightheadedness, no flank pain, no nausea or vomiting. [facility] Medical History Hiatal hernia Gastritis Opioid-induced constipation Degenerative disc disease, thoracic Degenerative disc disease, lumbar [place] (hard of hearing) Wears hearing aid in both ears Uses walker Hx of cardiac pacemaker (10/06/23) Age-related osteoporosis with current pathological fracture, vertebra(e), initial encounter for fracture Compression fracture of lumbar spine, non-traumatic Nontraumatic compression fracture of thoracic vertebra Anemia Moderate aortic stenosis Diabetes mellitus Congestive heart failure Urinary tract infection Hypertension Paroxysmal atrial fibrillation Cholelithiasis Renal cyst Nephrolithiasis Pulmonary hypertension Non-rheumatic mitral regurgitation Permanent atrial fibrillation Right nephrolithiasis Compression deformity of vertebra Microcytic anemia Heartburn Atrophic vaginitis Osteopenia Osteoarthritis of knees, bilateral Essential hypertension Dyslipidemia Type 2 diabetes mellitus with diabetic neuropathy, with long-term current use of insulin Surgical History History of cardiac radiofrequency ablation (RFA) Hx of cardiac catheterization History of esophagogastroduodenoscopy (EGD) (~10/2022) History of lumbar discectomy History of lobectomy of lung History of hysterectomy History of total right knee replacement (TKR) Lumbar radiculopathy Family History Father Diabetes mellitus Mother Diabetes mellitus Myocardial infarction Sister Cancer Sister No problems noted. Son No problems noted. Daughter No problems noted. Social History Household Members: None Housing: House Are you a primary ambulatory care to a significant other at home: No Do you presently have visiting nurse or other home services: No (supportive family) Unable to assess alcohol history related to: Unable to respond Alcohol intake: never Patient Tobacco Use Status: Former Tobacco user Tobacco use type: Cigarette e-Cigarette/Vaping Use: Never Used Advance Directives Date on File: 06/20/23 service: No Current occupational status: retired Cognitive needs: No Hearing needs: Yes Vision needs: Yes Questionnaire Thrive Questionnaire Date Thrive assessed: 08/31/23 I am a: Patient What is your living situation today?: I have a steady place to live Within the past 12 months, did the food you bought not last and you didn't have the money to get more?: Never true Within the past 12 months, did you worry whether your food would run out before you got money to buy more?: Never true Do you have trouble paying for medicines?: No Do you have trouble getting transportation to medical appointments?: No Do you have trouble paying your heating and electricity bill?: No Do you have trouble taking care of your child, family member or friend?: No Do you have trouble with day-to-day activities such as bathing, preparing meals, shopping, managing finances, etc.?: No Are you currently unemployed and looking for a job?: No Are you interested in more education?: No Please select the resources that you would like help with: None Currently or been in a relationship where the following occur: No concerns reported THRIVE Score: 0 AUDIT C Alcohol Use Questionnaire (AUDIT-C) 1. How often do you have a drink containing alcohol?: Never 3. How often do you have six or more drinks on one occasion?: Never Total Score: 0 INGRID-7 AMB Questionnaire INGRID-7 Date INGRID - 7 assessed: 06/20/23 Feeling nervous, anxious, or on edge: 1 = Several days Not being able to stop or control worryin = Not at all Worrying too much about different things: 0 = Not at all Trouble relaxin = Several days Being so restless that it is hard to sit still: 0 = Not at all Becoming easily annoyed or irritable: 1 = Several days Feeling afraid as if something awful might happen: 0 = Not at all Total INGRID-7 score (0-4 normal; 5-9 mild; 10-14 moderate; 15-21 severe): 3 Source: Developed by Drs. Chaz Mayer, Lily Ruggiero, Aayush Severino and colleagues, with an educational melinda from [employer] Review of Systems Const Reports no additional complaints Card Reports as per HPI Resp Reports no additional complaints GI Reports as per HPI Reports as per HPI Musc Reports as per HPI Neuro Reports no additional complaints, Denies Abnormal speech present, Denies confusion and Denies Sensory deficit (Neuro) Psych Reports no additional complaints and Denies confusion Endo Reports no additional complaints Physical exam (Primary Care) Vital Signs: Last Vital Signs Pulse 87 02/07/24 11:26 BP 158/80 H 02/07/24 11:26 Pulse Ox 97 02/07/24 11:26 Oxygen Delivery Method Room Air 02/07/24 11:26 BMI result Body Mass Index 26.3 Tobacco/Smoking Status: Tobacco use Status Tobacco use date assessed 02/07/24 02/07/24 11:34 Patient Tobacco Use Status Former Tobacco user 02/07/24 11:23 Tobacco use type Cigarette 02/07/24 11:23 e-Cigarette/Vaping Use Never Used 02/07/24 11:23 PHQ-9: PHQ-9 Score PHQ-9: Total score 16 02/07/24 23:57 Thrive Assessment: Date of Thrive Assessment Date Thrive assessed 08/31/23 02/07/24 11:23 Currently or been in a relationship where the following occur: No concerns reported Const Other: Alert oriented x3, no acute distress noted ambulatory with walker,daughter accompanying patient General: No confusion Orientation/consciousness: patient oriented x3 and No confusion HENMT Ears: no periauricular adenopathy and hearing grossly impaired Mouth: Normal oral and palatal mucosa present and moist mucous membranes Eyes General: appearance normal, both eyes and all related structures Neck Neck: Yes full ROM, Yes no lymphadenopathy, Yes supple and No tracheal deviation Resp Auscultation: clear to auscultation bilaterally Cardio Other: S1-S2 present regular rate and rhythm, systolic murmur heard for base GI Other: obese, Normal bowel sounds, soft, nontender, with no mass palpated Back/Spine/Pelvis Other: Slightly kyphotic, no tenderness on palpation over paraspinal muscles or over thoracic or lumbar spine area Neuro General: patient oriented x3, tone normal, moves all extremities and No confusion Speech: No Abnormal speech present Sensory Exam: No Sensory deficit (Neuro) Extrem General: Yes full ROM, Yes no joint enlargement, Yes no clubbing, cyanosis or edema and Yes no calf tenderness Results AMB Hemoglobin A1c AMB Hemoglobin A1c 6.7 % Last Edit by Shaunna Hernandez CMA on 02/07/24 11:53 AMB Urinalysis, Automated UA Leukoctes 500 Sofía/uL Last Edit by Shaunna Hernandez CMA on 02/07/24 12:19 UA Nitrite Negative Last Edit by Shaunna Hernandez CMA on 02/07/24 12:19 UA Urobilinogen 0.2 mg/dL Last Edit by Shaunna Hernandez CMA on 02/07/24 12:19 UA Protein 0 mg/dL Last Edit by Shaunna Hernandez CMA on 02/07/24 12:19 UA pH 6.0 Last Edit by Shaunna Hernandez CMA on 02/07/24 12:19 UA Blood 0 Stewart/uL Last Edit by Shaunna Hernandez CMA on 02/07/24 12:19 UA Specific [place] 1.015 Last Edit by Shaunna Hernandez CMA on 02/07/24 12:19 UA Ketone Negative Last Edit by Shaunna Hernandez CMA on 02/07/24 12:19 UA Bilirubin 0 mg/dL Last Edit by Shaunna Hernandez CMA on 02/07/24 12:19 UA Glucose 0 mg/dL Last Edit by Shaunna Hernandez CMA on 02/07/24 12:19 Results Reviewed Results Reviewed: Laboratory Last Values Hgb A1c (Clinic) 6.7 % (4.0-6.0) H 02/07/24 11:50 Urine pH (Auto) 6.0 02/07/24 11:50 Specific [place] (Auto) 1.015 02/07/24 11:50 Urine Protein (Auto) 0 mg/dL 02/07/24 11:50 Glucose (UA)(Auto) 0 mg/dL 02/07/24 11:50 Urine Ketones (Auto) Negative 02/07/24 11:50 Urine Blood (Auto) 0 Stewart/uL 02/07/24 11:50 Urine Nitrite (Auto) Negative 02/07/24 11:50 Urine Bilirubin (Auto) 0 mg/dL 02/07/24 11:50 Urine Urobilinogen (Auto) 0.2 mg/dL 02/07/24 11:50 Leukocyte Esterase (Auto) 500 Sofía/uL 02/07/24 11:50 Name: Aminah Kraft Age/Sex: 83/F : 1940 Unit#: [id number] Attend Dr: Patricia Nicole MD Re01/26/24 Status: DEP REF Location: [facility] Disch: SPEC : [id number] ANALISA: 01/26/24 STATUS: COMP REQ : [id number] RECD: 01/26/[address]: Patricia Nicole MD COMP: 01/26/24 ENTERED: 01/26/[address] [facility] DR: ORDERED: CBC Auto Diff Test Result Flag Reference WBC 7.4 4.8-10.8 X10*3/uL RBC 4.38 4.20-5.50 X10*6/uL HGB 11.9 L 12.0-16.0 g/dl HCT 37.0 37.0-47.0 % MCV 84.5 80.0-98.0 fL MCH 27.2 27.0-33.0 pg MCHC 32.2 31.0-35.0 g/dl RDW 17.2 H 11.0-16.0 % PLT 340 # 160-400 X10*3/uL MPV 9.5 9.4-12.3 fL Neut Pct Auto 59.1 45-73 % ImGran Pct Auto 0.8 H 0.0-0.4 % Lymp Pct Auto 23.3 20-40 % Shackelford Pct Auto 10.8 2-11 % Eos Pct Auto 5.5 H 0-4 % Baso Pct Auto 0.5 0-2 % NRBC Pct Auto 0.0 0.0-0.2 /100WBC ANC Neut Abs # 4.4 2.0-8.3 x10*3/uL ImGran Abs Auto 0.06 H 0.00-0.03 X10*3/uL Lymph Abs Auto 1.7 1.2-4.9 X10*3/uL Shack[place]ord Abs Auto 0.8 0.1-1.2 X10*3/uL Eos Abs Auto 0.4 0.0-0.4 X10*3/uL Baso Abs Auto 0.0 0.0-0.2 X10*3/uL NRBC Abs Auto 0.000 0.0-0.012 X10*3/uL Name: Aminah Kraft Age/Sex: 83/F : 1940 Unit#: [id number] Attend Dr: Patricia Nicole MD Re01/26/24 Status: DEP REF Location: [id number] Disch: SPEC : [id number] ANALISA: 01/26/24 STATUS: COMP REQ : [id number] RECD: 01/26/[address]: Patricia Nicole MD COMP: 01/26/24 ENTERED: 01/26/[address] [facility] DR: ORDERED: Met Prof Fast, IRON PROF, AST, ALT, Lipid Panel, Vitamin D 25-OH Test Result Flag Reference Sodium 138 135-145 mmol/L Potassium 4.2 3.3-5.1 mmol/L CL 99 96-108 mmol/L CO2 25 22-29 mmol/L Gap 18 12-20 BUN 17 H 9-16 mg/dL Creat 0.79 0.5-1.4 mg/dL EGFR > 60 NOTE: For -[place] individuals, multiply the result by 1.210. Chronic Kidney Disease: Estimated GFR < 60 mL/min/1.73m2 Severe Kidney Disease: Estimated GFR < 15 mL/min/1.73m2 FBS 158 H 60-99 mg/dL A fasting glucose of 126 mg/dl or greater on more than one occasion is considered diagnostic of diabetes. CA 9.9 8.4-10.2 mg/dL Iron 66 30-160 mcg/dL TIBC 312 228-428 mcg/dL Saturation 21 15-50 % UIBC 246 ug/dL AST (GOT) 22 5-31 U/L ALT (GPT) 6 0-31 U/L Triglyceride 176 H <150 mg/dL Desirable Triglyceride: less than 150 mg/dL Borderline High Triglyceride 150-199 mg/dL High Triglyceride: 200-499 mg/dL Very High Triglyceride: greater than or equal to 5OO mg/dL Cholesterol 140 <200 mg/dL Desirable Cholesterol: less than 200 mg/dL Borderline High Cholesterol: 200-239 mg/dL High Cholesterol: greater than 239 mg/dL LDL Calculated 60 <100 mg/dL Desirable LDL: less than 100 mg/dL Near Optimal/Above Optimal LDL: 110-129 mg/dL Borderline High LDL: 130-159 mg/dL High LDL: 160-189 mg/dL Very High LDL: greater than or equal to 190 mg/dL HDL 45 >40 mg/dL Desirable HDL: greater than 40 mg/dL Note: This HDL assay may give artificially low results in patients with liver disease. Vit D 25-OH Tot 51.6 >30 ng/mL Health Based Reference Values* < 20 ng/mL Deficient 20-30 ng/mL Insufficient > 30 ng/mL Sufficient Coding Level of Care Code Est Pt Level 4 (96605) Est Pt Prev Care >65y(75223) Diagnoses Radiculopathy, thoracic region M54.14 Dorsalgia of thoracic region M54.6 Dyslipidemia E78.5 Essential hypertension I10 Type 2 diabetes mellitus with diabetic neuropathy, with long-term current use of insulin E11.40; Z79.4 Opioid-induced constipation K59.03; T40.2X5A Chronic gastritis without bleeding, unspecified gastritis type K29.50 Chronicity: chronic Gastritis bleeding: without bleeding Gastritis type: unspecified gastritis Hiatal hernia K44.9 Urinary frequency R35.0 Assessment & Plan Assessment & Plan (1) Radiculopathy, thoracic region: Code(s): M54.14 - Radiculopathy, thoracic region Category: Medical Plan: Increased gabapentin dose to 300 mg at bedtime, discussed possible side effects of medication which includes dry mouth, drowsiness, some leg swelling. Advised to inform Dr. Zamudio about change in dose and if agreeable (2) Dorsalgia of thoracic region: Code(s): M54.6 - Pain in thoracic spine Category: Medical Plan: Increased dosing frequency of tramadol 50 mg per tablet taken together with Tylenol 500 mg per tablet to every 6 hours as needed for pain. Patient cautioned that this can cause constipation, was able to have a bowel movement with taking Dulcolax, advised to try Movantik to see if this will help with her constipation. Reminded to keep appointment with Dr. Zamudio next month for follow-up (3) Dyslipidemia: Code(s): E78.5 - Hyperlipidemia, unspecified Category: Medical Plan: Advised to adherence to healthy eating habits, opts not to start any medication now for her lipids. We in forced importance of following a low cholesterol diet and staying active (4) Essential hypertension: Code(s): I10 - Essential (primary) hypertension Category: Medical Plan: Systolic blood pressure mildly elevated on today's visit likely due to pain. Will continue on current treatment, and will have her come back and have her blood pressure rechecked by nurse navigator. 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 Continue metformin, continue to check fasting blood sugar at home, maintain log and bring to next appointment for review. Reinforced diabetic diet and regular exercise with patient. Counseled regarding importance of yearly diabetes retinopathy screening. Patient advised to inspect feet daily, for any signs of injury, callus or infection. Compliance with diet and regular exercise again stressed. Blood pressure goal is less than 130/80, goal LDL is less than 100 and goal hemoglobin A1c is less than 7% follow-up appointment made in---months, after fasting labs done. (6) Opioid-induced constipation: Code(s): K59.03 - Drug induced constipation; T40.2X5A - Adverse effect of other opioids, initial encounter Category: Medical Plan: Prescription already sent for Movantik to take only as needed for episodes of constipation. Continue taking Colace 200 mg capsule daily, drink plenty of fluids, and intake of dietary fiber, less processed food. (7) Gastritis: Comment: seen on EGD done last [address] campbell Code(s): K29.70 - Gastritis, unspecified, without bleeding Category: Medical Qualifiers: Chronicity: chronic Gastritis bleeding: without bleeding Gastritis type: unspecified gastritis Qualified Code(s): K29.50 - Unspecified chronic gastritis without bleeding Plan: Prescription sent for pantoprazole 40 mg per capsule to take 1 capsule twice a day as instructed by Dr. Campbell on last appointment with him a year ago. Patient also advised to start taking Carafate as directed, taken at least an hour before eating or 2 hours after eating. (8) Hiatal hernia: Comment: seen on EGD done last [address] campbell Code(s): K44.9 - Diaphragmatic hernia without obstruction or gangrene Category: Medical Plan: Avoid using abdominal belt especially when eating, (9) Urinary frequency: Code(s): R35.0 - Frequency of micturition Plan: Urine with culture and sensitivity ordered showing only presence of trace hematuria no nitrites or leukocytes. Plan - Chronic back pain and associated symptoms will be managed by continuing tramadol, increasing frequency to every six hours. Gabapentin should be increased to 300 mg at night for neuralgia symptomatic management. - Encourage posture correction methods, discontinue use of the abdominal belt, and incorporate a posture support device to potentially alleviate hiatal hernia induced symptoms. - Monitor gastrointestinal symptoms, manage with pantoprazole for gastritis twice daily. - For constipation, continue docusate and use dulcolax as needed, consider Movantik if necessary. - a CT scan of thoracic spine was ordered by Dr Zamudio to assess disc status changes- Lifestyle adjustments including dietary modifications to maintain a low-fat diet and ensure adequate hydration to help manage gastrointestinal symptoms. Patient was informed and verbally consented to the use of an ambient scribe for clinic note documentation during this visit. Orders: Orders AMB Hemoglobin A1c 02/07/24 E11.40 - Type 2 diabetes mellitus with diabetic neuropathy, unspecified, Z79.4 - superintendent container terminal (current) use of insulin AMB Urinalysis Automated 02/07/24 Z13.9 - Encounter for screening, unspecified UA CC w/rflx Micro + Cult 02/07/24 R35.0 - Frequency of micturition Medications: New sucralfate (Carafate) swish in mouth and swallow; use after food/drink 5 mL PO TID 30 days 450 mL 2RF Changed From tramadol Take together with Tylenol 500 mg every 8 hours as needed for pain relief 50 mg PO Q8H PRN 60 tabs 0RF pain M48.56XA - Collapsed vertebra, not elsewhere classified, lumbar region, initial encounter for fracture To tramadol Take together with Tylenol 500 mg every 8 hours as needed for pain relief 50 mg PO Q6H PRN 120 tabs 0RF pain M48.56XA - Collapsed vertebra, not elsewhere classified, lumbar region, initial encounter for fracture From pantoprazole 40 mg PO DAILY@0630 90 tabs 0RF To pantoprazole 40 mg PO Q12H 60 tabs 3RF From gabapentin 100 mg PO BEDTIME 90 caps 1RF To gabapentin 300 mg PO BEDTIME 30 caps 3RF
[2024-02-07 11:26] VITALS: BP 158/80; PULSE 87; O2SAT 97; BMI 26.3
== END 2024-02-07 13:29 | disposition home or self-care (01) ==
PROVIDERS: PCP Internal Medicine; Visit Provider Internal Medicine
DX: Z00.00 Encounter for general adult medical examination without abnormal findings (principal); E11.40 Type 2 diabetes mellitus with diabetic neuropathy, unspecified; Z79.4 Long term (current) use of insulin; M54.14 Radiculopathy, thoracic region; M54.6 Pain in thoracic spine; E78.5 Hyperlipidemia, unspecified; I10 Essential (primary) hypertension; K59.03 Drug induced constipation; T40.2X5A Adverse effect of other opioids, initial encounter; K29.50 Unspecified chronic gastritis without bleeding; K44.9 Diaphragmatic hernia without obstruction or gangrene; R35.0 Frequency of micturition

== ENCOUNTER 2024-02-11 14:31 | Outpatient (REF) | payer MEDICARE, SELFPAY ==
--- NOTE | ~2024-02-11 | CT_ITS ---
EXAMINATION: CT THORACIC SPINE CLINICAL INFORMATION: Postprocedural pain COMPARISON: MRI thoracic spine on 12/27/2023 TECHNIQUE: Multidetector CT acquisitions of the thoracic spine before and after administration of 85 mL Omnipaque [address] examination was performed using dose optimization techniques as appropriate, variously including the following: *Automated exposure control *Adjustment of mA and/or kV according to patient size (this includes techniques or standardized protocols for targeted exams where dose is matched to indication/reason for exam; i.e. extremities or head) *Use of iterative reconstruction technique DLP: 990 mGy-cm FINDINGS: Exaggeration of the normal thoracic kyphosis. No listhesis. Sequela of kyphoplasty at T6. Images terminate compression fractures of T7 and L1 with less than 20% vertebral body height loss and no retropulsion. These findings are however new when compared to MRI on 12/27/2023. Chronic compression fracture deformities of T8, T11, and T12, not significantly progressed from prior (accounting for differences in modalities). There is persistent 3 mm retropulsion of T8 resulting in mild spinal canal stenosis at T8-9. The remaining vertebral body heights are preserved. Multilevel endplate osteophytosis. The paravertebral soft tissues are unremarkable. The imaged lungs are clear. CT/CT thoracic spine wo/w IV con IMPRESSION: -Age-indeterminate however likely acute to subacute compression fractures of T7 and L1 with less than 20% vertebral body height loss and no retropulsion. -Chronic compression fracture deformities of T8, T11, and T12, not significantly progressed from prior (accounting for differences in modalities). Persistent 3 mm retropulsion of T8 resulting in mild spinal canal stenosis at T8-9. -Sequelae of T6 kyphoplasty. Electronically signed by: Josefina Montemayor MD 02/15/2024 12:18 PM [facility]
[2024-02-11] MEDS: iohexoL 350 MG/ML 100 ML INFUS..BTL 85 ML IV (15:18)
== END 2024-02-11 14:32 | disposition home or self-care (01) ==
LOC: HO.CT 14:31
PROVIDERS: PCP Internal Medicine; Visit Provider Anesthesiology
DX: M51.34 Other intervertebral disc degeneration, thoracic region (principal); S22.000A Wedge compression fracture of unspecified thoracic vertebra, initial encounter for closed fracture; M54.14 Radiculopathy, thoracic region; Z98.890 Other specified postprocedural states
CPT/HCPCS: 72130; Q9967

== ENCOUNTER 2024-03-05 14:40 | Outpatient (AMB) | payer MEDICARE, SELFPAY ==
--- OUTSIDE RECORDS SUMMARY | 2024-03-05 14:42 | XMS_ITS | Patient Health Record ---
Author Organization [facility] Address [address] [place] [address] Care Team Providers Care Mailroom Associate Name Role Phone Bonnie DUVALL, Patricia De La Garza Primary Care Provider Un available Estuardo Mccarthy Unavailable [phone] Allergies Allergen (clinical drug ingredient) Drug/Non Drug Allergy documented on EMR Reaction Allergy Type Onset Date Status furosemide Furosemide Unknown Drug Allergy Activ e Latex Latex rash Allergy Active Results Component Value Reference Range Notes HEMOGLOBIN A1C (GLYCOHEMOGLO BIN) Reviewed date:06/08/2023 01:04:09 PM Interpretation: Performing Lab: Notes/Report: HEMOGLOBIN A1C % (HH) 7.2 Reason For Referral No Information Medications Medication SIG (Take, Route, Frequency, Duration) Notes Start Date End Date Status metFORMIN HCl 1000 MG Oral for 90 Active Metoprolol Succinate ER 25 MG 1 tablet Orally Once a day Active PreserVision AREDS A ctive Rosuvastatin Calcium 5 MG Oral for 90 Active Spironolactone 25 MG Oral for 90 Active CoQ-10 100 MG 1 capsule with a meal Orally Once a day for 30 day(s) Active Digoxin 125 MCG Oral for 90 Ac tive eliquis Active Estrace Active Magnesium 500 MG Orally Once a day Active Gabapentin Active Tylenol every 6 hours Not-Taking Pantoprazole Sodium 40 MG 1 tablet Orall y Once a day Active OxyCONTIN PRN Not-Taking Lantus Active Penicillin temp 5 days Not-[place] ing HumaLOG Active Warfarin Sodium 2 MG Oral for 75 Not-Taking Losartan Potassium 50 MG 1 tablet Orally Once a day for 30 day(s) Active amLODIPine Besylate 5 MG Oral for 90 Active Vitamin B1-B12 Injec once a Month Active Extra Depth Orthopedic Shoes (1 Pair) with Customized Heat Molded Multidensity Innersoles (3 Pair) as directed Dx: NIDDM/Polyneuropath y (E11.42), Hammertoe Foot Deformity (M20.41,M20.42), Preulcerative Skin Lesion(s) (L85.1 03/02/2023 Active hydroCHLOROthiazide 25 MG 1 tablet in th e morning Orally Once a day Not-Taking Stool Softener Activ e Citracal + D Twice a day Not-T aking Jardiance 10 MG 1 tablet Orally Once a day Active Ferrocite 324 MG 1 tablet Orally Three times a Week for 30 day(s) Not-Taking Lasix 40 MG 1 tablet Orally Once a day Active iron Not-Taking Immunizations Vaccine Route Administration Date Status Comme nts COVID-19 Moderna Vaccine Unknown 01/22/2022 Administered 1st 06/13/2020,01/28/21 07/12/2020,2021 Influenza Unknown 01/22/2022 Administered Influenza Unknown 11/17/2022 Administered Social History Tobacco Use: Social History Observation Description Date Details (start date - stop date) Former Smoker NA - NA Tobacco Use/Smoking Question Answer Notes Are you a: former smoker Additional Findings: Tobacco Non-User Current no n-smoker Alcohol Screen Question Answer Notes Did you have a drink containing alcohol in the p ast year? No Points 0 Interpretation Negative Tobacco use other than smoking: Question Answer Notes Are you an other tobacco user? No Problems Problem Type SNOMED Code ICD Code Onset Dates Problem Status W/U Status Risk Notes Problem Acquired hammer toe of right foot (0692702928126083 ) Other hammer toe(s) (acquired), right foot (M20.41) Active confirmed Response to treatment, Hiral porter Problem Acquired hammer toe of left foot (8629144430303048 ) Other hammer toe(s) (acquired), left foot (M20.42) Active confirmed Response to treatment, Improveanita t Problem Polyneuropathy due to type 2 diabetes mellitus (626566930) Type 2 diabetes mellitus with diabetic polyneuropathy (E11.42) Active confirmed Vital Signs Blood pressure diastolic 60 mm Hg 12/14/2023 Height 5 ft 4in in 12/14/2023 Blood pressure systolic 120 mm Hg 12/14/2023 Weight 154 lbs 12/14/2023 BMI 26.43 kg/m2 12/14/2023 Procedures Procedure Date Ordered Date Performed Result Body Sit e 82470-OADVTQZ NAIL, 1-5 06/08/2023 N/A 75516-LJMK SKIN LESIONS, 2 TO 4 06/08/2023 N/A S0911-YZXUMDKT DYSTROPHIC NAILS ANY # 06/08/2023 N/A 18735-BEGRKPV NAIL, 1-5 09/14/2023 N/A 28130-TIXU SKIN LESIONS, 2 TO 4 09/14/2023 N/A S5403-VHUJVFLB DYSTROPHIC NAILS ANY # 09/14/2023 N/A 68232-OVYBBYH NAIL, 1-5 12/14/2023 N/A 11769-HZVY SKIN LESIONS, 2 TO 4 12/14/2023 N/A G6003-JWQBFHOU DYSTROPHIC NAILS ANY # 12/14/2023 N/A Encounters Encounter Location Date Provider Diagnosis [facility] [address] 06/08/2023 Estuardo Fabio Type 2 diabetes mellitus with diabetic polyneuropathy E11.42 ; Tinea unguium B35.1 ; Other hammer toe(s) (acquired), right foot M20.41 and Other hammer toe(s) (acquired), left foot M20.42 [facility] [address] 09/14/2023 Estuardo Fabio Type 2 diabetes mellitus with diabetic polyneuropathy E11.42 and Tinea unguium B35.[address] [address] 12/14/2023 Estuardo Fabio Type 2 diabetes mellitus with diabetic polyneuropathy E11.42 and Tinea unguium B35.1 Assessments Encounter Date Diagnosis (ICD Code) Assessment Notes Treatment Notes Treatment Clinical Notes Section Notes 06/08/2023 Tinea unguium (ICD-10 - B35.1) 06/08/2023 Type 2 diabetes mellitus with diabetic polyneuropathy (ICD-10 - E11.42) 09/14/2023 Tinea unguium (ICD-10 - B35.1) 09/14/2023 Type 2 diabetes mellitus with diabetic polyneuropathy (ICD-10 - E11.42) 12/14/2023 Tinea unguium (ICD-10 - B35.1) 12/14/2023 Type 2 diabetes mellitus with diabetic polyneuropathy (ICD-10 - E11.42) 06/08/2023 Other hammer toe(s) (acquired), right foot (ICD-10 - M20.41) Response to treatment,Impro vement 06/08/2023 Other hammer toe(s) (acquired), left foot (ICD-10 - M20.42) Response to treatment,Impro vement Plan Of Treatment Pending Test Test Name Order Date 02871-KSTWGNH NAIL, 1-5 01/20/2020 37837-DJWOEXM NAIL, 1-5 04/27/2020 40161-FUSMZNW NAIL, -5 07/27/2020 13511-WYEAKHJ NAIL, -5 11/02/2020 35576-RYXHAON NAIL, -5 02/04/2021 97261-IDHJLGX NAIL, -5 05/06/2021 86496-CPPTAXZ NAIL, 1-5 08/02/2021 68072-WZZTXXA NAIL, 1-5 10/28/2021 11419-WBNGHYJ NAIL, 1-5 02/03/2022 53433-TIKJCDS NAIL, -5 05/12/2022 12606-ZLVFIZD NAIL, -5 08/18/2022 49872-WYALZNH NAIL, 1-5 11/24/2022 30898-FRLOBFB NAIL, -5 03/02/2023 20040-WIJRSFE NAIL, -5 06/08/2023 96417-JUNTARF NAIL, 1-5 09/14/2023 61971-GZXFEEP NAIL, 1-5 12/14/2023 93397-Qibynsjm Plate 08/18/2022 84241-KXDX SKIN LESIONS, 2 TO 4 03/02/20 80838-JZSE SKIN LESIONS, 2 TO 4 12/14/19 24456-MDLW SKIN LESIONS, 2 TO 4 09/14/19 02981-JBIP SKIN LESIONS, 2 TO 4 06/08/19 14407-RERS SKIN LESIONS, 2 TO 4 11/25/19 60816-GPMX SKIN LESIONS, 2 TO 4 08/19/19 61565-ONVF SKIN LESIONS, 2 TO 4 02/24/20 23 07681-PKMP SKIN LESIONS, 2 TO 4 02/04/20 31278-AMVE SKIN LESIONS, 2 TO 4 10/29/19 53173-USOB SKIN LESIONS, 2 TO 4 08/03/19 39492-OWTD SKIN LESIONS, 2 TO 4 02/05/20 21 91048-NARY SKIN LESIONS, 2 TO 4 05/06/19 32672-VPZW SKIN LESIONS, 2 TO 4 07/28/19 21 37915-TSEA SKIN LESIONS, 2 TO 4 11/03/19 21 67779-OVXH SKIN LESIONS, 2 TO 4 01/20/20 20 44289-RABT SKIN LESIONS, 2 TO 4 04/27/19 21 P9450-UCXJFSFZ DYSTROPHIC NAILS ANY # X4226-FFGFVFTK DYSTROPHIC NAILS ANY # P2685-QGTITXIM DYSTROPHIC NAILS ANY # H7050-HFRPBZHF DYSTROPHIC NAILS ANY # F8395-ROEYNBGE DYSTROPHIC NAILS ANY # Z2923-WBSHJBZF DYSTROPHIC NAILS ANY # B3847-OQROJYVE DYSTROPHIC NAILS ANY # K1295-GLEUWSEF DYSTROPHIC NAILS ANY # W1325-XQKGHVDK DYSTROPHIC NAILS ANY # H5414-VKGVYYUP DYSTROPHIC NAILS ANY # I8113-PNFBOIUA DYSTROPHIC NAILS ANY # X3762-YYRPQYRS DYSTROPHIC NAILS ANY # X2161-FTRYERYX DYSTROPHIC NAILS ANY # U5596-JKRDOKHQ DYSTROPHIC NAILS ANY # S4373-RAGLBTJT DYSTROPHIC NAILS ANY # H6661-HSQRHZYE DYSTROPHIC NAILS ANY # Next Appt Details Provider Name:Estuardo Mccarthy , 03/25/2024 03:30:00 PM, [address] [facility], [place], [address], Insurance Providers Payer Name Payer Address Payer Phone Subscriber Number Group Number Insured Name Patient Relationship to Insured Coverage Start Date Coverage End Date Medicare National [employer] [address] [facility] [place] [address] [id number] Sarah santillanAminah Self - patient is the insured 0 [employer] Secondary to Medicare [address] [place] [address] [id number] Sarah Aminah santillan Self - patient is the insured Medical (General) History Medical History History ICD Code Broken bones Heart disease - CHF High blood pressure Measles Mumps Chicken pox Bone implants/screws Transfusions type II diabetes Macular degeneration Surgical History Surgery Date(Month/Year) cataract surgery 2018 kidney stones removal 07/2020 endoscopy 05/15/23 Hospitalization History Reason Date(Month/Year) [place]min[place] adesc[place] [facility] [place]05 4 [facility] [place] [facility] [place] 20[place] [facility] 2 compound fractures back 5 da ys test done Rehab 2 weeks 12/12/21 urgent care -UTI given antiboitic 10/25/19
--- OUTSIDE RECORDS SUMMARY | 2024-03-05 14:42 | XMS_ITS ---
Author Organization [facility] Address [address] [place] [address] Care Team Providers Care Protective Service Specialist Name Role Phone Bonnie DUVALL, Patricia De La Garza Primary Care Provider Un available Estuardo Mccarthy Unavailable [phone] Allergies Allergen (clinical drug ingredient) Drug/Non Drug Allergy documented on EMR Reaction Allergy Type Onset Date Status furosemide Furosemide Unknown Drug Allergy Activ e Latex Latex rash Allergy Active REASON FOR VISIT At Risk Footcare, Toe Irritation Medications Medication SIG (Take, Route, Frequency, Duration) Notes Start Date End Date Status Vitamin B1-B12 Injec once a Month Active OxyCONTIN PRN Not-Taking Extra Depth Orthopedic Shoes (1 Pair) with Customized Heat Molded Multidensity Innersoles (3 Pair) as directed Dx: NIDDM/Polyneuropath y (E11.42), Hammertoe Foot Deformity (M20.41,M20.42), Preulcerative Skin Lesion(s) (L85.1 03/02/2023 Active Warfarin Sodium 2 MG Oral for 75 Not-Taking Penicillin temp 5 days Not-[place] ing Spironolactone 25 MG Oral for 90 Active Tylenol every 6 hours Not-Taking Metoprolol Succinate ER 25 MG 1 tablet Orally Once a day Active Rosuvastatin Calcium 5 MG Oral for 90 Active PreserVision AREDS A ctive Estrace Active eliquis Active Magnesium 500 MG Orally Once a day Active iron Not-Taking metFORMIN HCl 1000 MG Oral for 90 Active Citracal + D Twice a day Activ e amLODIPine Besylate 5 MG Oral for 90 Active Digoxin 125 MCG Oral for 90 Ac tive CoQ-10 100 MG 1 capsule with a meal Orally Once a day for 30 day(s) Active Losartan Potassium 50 MG 1 tablet Orally Once a day for 30 day(s) Active Pantoprazole Sodium 40 MG 1 tablet Orall y Once a day Active hydroCHLOROthiazide 25 MG 1 tablet in e morning Orally Once a day Active HumaLOG Active Lantus Active Ferrocite 324 MG 1 tablet Orally Three times a Week for 30 day(s) Not-Taking Gabapentin Active Social History Tobacco Use: Social History Observation [...] Are you an other tobacco user? No Vital Signs Height 5 ft 5 in in 06/08/2023 Weight 161.5 lbs 06/08/2023 BMI 26.87 kg/m2 06/08/2023 Procedures Procedure Date Ordered Date Performed Result Body Sit e 68152-GEZVMGD NAIL, 1-5 06/08/2023 N/A 89190-EYVU SKIN LESIONS, 2 TO 4 06/08/2023 N/A A5637-CQDIYZQG DYSTROPHIC NAILS ANY # 06/08/2023 N/A Encounters Encounter Location Date Provider Diagnosis [facility] [place] [address] [place] [address] 06/08/2023 Estuardo Mccarthy Type 2 diabetes mellitus with diabetic polyneuropathy E11.42 ; Tinea unguium B35.1 ; Other hammer toe(s) (acquired), right foot M20.41 and Other hammer toe(s) (acquired), left foot M20.42 Assessments Encounter Date Diagnosis (ICD Code) Assessment Notes Treatment Notes Treatment Clinical Notes Section Notes 06/08/2023 Type 2 diabetes mellitus with diabetic polyneuropathy (ICD-10 - E11.42) 06/08/2023 Tinea unguium (ICD-10 - B35.1) 06/08/2023 Other hammer toe(s) (acquired), right foot (ICD-10 - M20.41) Response to treatment,Impro vement 06/08/2023 Other hammer toe(s) (acquired), left foot (ICD-10 - M20.42) Response to treatment,Impro vement Plan Of Treatment Pending Test Test Name Order Date 35207-GOLUPEG NAIL, 1-5 06/08/2023 16341-BXZK SKIN LESIONS, 2 TO 4 06/08/19 24 D8090-[id number] DYSTROPHIC NAILS ANY # Next Appt Details Follow Up: prn, Reason: Provider Name:Estuardo Mccarthy , 03/25/2024 03:30:00 PM, [address] [place] [address], [id number], Procedure Notes * Category Sub-Category Detail Notes Keratoma Treatment Parring or Cutting o f Benign Hyperkeratotic Lesion(s) 78928 ( 2-4 Lesions ) - The Benign hyperkeratotic lesions, as described above were pared, and/or cut utilizing a sterile 15 blade, tissue nippers, and/or dremel Debride Nails 1-5 Procedure: Nail debrideme nt performed extensively to reduce/remove overall nail length, girth, thickness, subungual debris, and necrotic tissue, by manual and electrical means through the use of a nail nipper and/or dremel, to more viable healthy nail plate or bed tissue 1-5. Silver nitrate used for any petechial bleeding as necessary. Patient chooses, no pharmaceutical tx (50879) Nail Reduction Nail Reduction Trimming of dyst rophic nails performed to reduce/remove overall nail length and girth, by manual and electrical means with use of a nail nipper and/or dremel, to more viable healthy nail plate or bed tissue 6-10 (G0127) Progress Notes * Aminah KRAFT PDOB:[birth year] (82 yo F)Acc No.[id number]:06/08/2023 Progress Note Patient:?Aminah Kraft P Provider:?Estuardo Mccarthy DPM :1940???Age:82 Y???Sex:Female D ate:06/08/2023 Address:[address] [place], [place] [id number] Pcp:Amada Ferro Subjective: * Chief Complaints: * ???At Risk FootcareToe Irrit ation * HPI: ???At Risk footcare:?Pt States Last PCP Visit:?Date?12/29/2022 ?Misc?States has an appt with PCP soon - 06/19.?Toe pain:?Treatments:?Rx shoes .? * ROS:?General/Constitutional:?Nausea?denies.?Vomiting?denies.?Hunger Thirst?denies.?Loss appetite?denies.?Chills?denies.?Fatigue?denies.?Fever?denies.?Night Sweats?denies.?Unexplained weight loss?denies.?Unexplained weight gain?denies.?HEENTM:?Dentures?denies.?Dizziness?denies.?Glasses/contacts?denies.?Retinopathy?de nies.?Blurred/double vision?denies.?TMJ?denies.?Discharge/drainage?denies.?Implants?denies.?Sore throat?denies.?Dental implants?denies.?Hard of hearing ?admits.?Difficulty chewing/swallowing/speaking?denies.?Nose bleeds?denies.?Sore mouth?denies.?Respiratory:?On Oxygen?denies.?Pneumonia/pleurisy?denies.?Bronchitis?denies.?Emphysema?denies.?C oughing?denies.?Cough blood?denies.?Shortness of breath?denies.?Wheezing?denies.?Cardiovascular:?Pacemaker?denies.?MVP?denies.?WPW?denies.?CHF?denies.?Heart attack?denies.?Septal defect?denies.?Rapid beat?denies.?Chest pain ?denies.?Atrial Fib.?admits.?Murmur/Palpitations?denies.?Gastrointestinal:?Hemorrhoids?denies.?Stomach/Abdominal pain?denies.?Dark blood stool?denies.?Irritable bowel ?denies.?Constipation?denies.?Diarrhea?denies.?Hematology:?Swelling?admits.?Clots?denies.?Varicose Veins?denies.?Bruising?admits, on anticoagulants.?Bleeding problem?admits, on anticoagulants.?Genitourinary:?Blood urine?denies.?Frequent/Painfu/urination/bladder control?denies.?Kidney stones?denies.?Infection (UTI)?denies.?Nephropathy?denies.?sex trans dis (STD)?denies.?Prostate?denies.?Musculoskeletal:?Hammertoes?admits.?Bunions?denies.?Back Pain?denies.?Muscle Cramps/ Resting?admits.?Muscle cramps / walking?denies.?Generalized aches and pains?denies.?Weakness?admits.?Integ.:?Gilbert?denies.?Scars?denies.?Corns/calluses?admits.?Ingrown nails?admits.?Painful nails?denies.?Open Sores?denies.?Rashes?denies.?Neurologic:?Difficulty sleeping?denies.?Brain disorder?denies.?Numbness?admits.?Balance trouble?admits.?Confusion?denies.?Fainting/blackouts?denies.?Tingling?denies.?Tr emors?denies.? * Medical History:? * Surgical History:?cataract s urgery 2019kidney stones removal ndoscopy 05/15/23 * Hospitalization/Major Diagno stic Procedure:?urgent care -UTI given antiboitic 10/24/2021[facility] [place]- Fall 2 compound fractures back 5 days test done Rehab 2 weeks 12/12/21[facility] [place] - Nuclear exam done 2022 - [facility] Dec 2022 * Family History:?Mother: dece ased, diagnosed with Unspecified essential hypertension.?Father: , diagnosed with Diabetic - NIDDM, Unspecified essential hypertension.? * Social History:?Tobacco Use:?Tobacco Use/Smoking?Are you a:?former smoker ?Additional Findings: Tobacco Non-User?Current non-smoker ?Tobacco use other than smoking?Are you an other tobacco user??No ???Drugs/Alcohol:?Drugs?Have you used drugs other than those for medical reasons in the past 12 months??No ?Alcohol Screen?Did you have a drink containing alcohol in the past year??No ?Points?0 ?Interpretation?Negative ???Miscellaneous:?Caffeine: yes, frequency:. ?Children: yes, 2. ?Exercise: yes, housework. ?Marital status: . ?Occupation: Retired. * Medications:?TakingGabapenti n hydroCHLOROthiazide 25 MG Tablet 1 tablet in the morning Orally Once a dayPantoprazole Sodium 40 MG Tablet Delayed Release 1 tablet Orally Once a dayLantus HumaLOG Losartan Potassium 50 MG Tablet 1 tablet Orally Once a dayamLODIPine Besylate 5 MG Tablet Oral Citracal + D Twice a dayCoQ-10 100 MG Capsule 1 capsule with a meal Orally Once a dayDigoxin 125 MCG Tablet Oral eliquis Estrace Magnesium 500 MG Capsule Orally Once a daymetFORMIN HCl 1000 MG Tablet Oral Metoprolol Succinate ER 25 MG Tablet Extended Release 24 Hour 1 tablet Orally Once a dayPreserVision AREDS Rosuvastatin Calcium 5 MG Tablet Oral Spironolactone 25 MG Tablet Oral Vitamin B1-B12 , Notes: Injec once a MonthExtra Depth Orthopedic Shoes (1 Pair) with Customized Heat Molded Multidensity Innersoles (3 Pair) as directed Dx: NIDDM/Polyneuropathy (E11.42), Hammertoe Foot Deformity (M20.41,M20.42), Preulcerative Skin Lesion(s) (L85.1Taking Gabapentin Taking hydroCHLOROthiazide 25 MG Tablet 1 tablet in the morning Orally Once a dayTaking Pantoprazole Sodium 40 MG Tablet Delayed Release 1 tablet Orally Once a dayTaking Lantus Taking HumaLOG Taking Losartan Potassium 50 MG Tablet 1 tablet Orally Once a dayTaking amLODIPine Besylate 5 MG Tablet Oral Taking Citracal + D Twice a dayTaking CoQ-10 100 MG Capsule 1 capsule with a meal Orally Once a dayTaking Digoxin 125 MCG Tablet Oral Taking eliquis Taking Estrace Taking Magnesium 500 MG Capsule Orally Once a dayTaking metFORMIN HCl 1000 MG Tablet Oral Taking Metoprolol Succinate ER 25 MG Tablet Extended Release 24 Hour 1 tablet Orally Once a dayTaking PreserVision AREDS Taking Rosuvastatin Calcium 5 MG Tablet Oral Taking Spironolactone 25 MG Tablet Oral Taking Vitamin B1-B12 , Notes: Injec once a MonthTaking Extra Depth Orthopedic Shoes (1 Pair) with Customized Heat Molded Multidensity Innersoles (3 Pair) as directed Dx: NIDDM/Polyneuropathy (E11.42), Hammertoe Foot Deformity (M20.41,M20.42), Preulcerative Skin Lesion(s) (L85.1Not-Taking/PRNFerrocite 324 MG Tablet 1 tablet Orally Three times a Weekiron Tylenol , Notes: every 6 hoursOxyCONTIN , Notes: PRNPenicillin , Notes: temp 5 daysWarfarin Sodium 2 MG Tablet Oral Medication List reviewed and reconciled with the patientNot-Taking/PRN Ferrocite 324 MG Tablet 1 tablet Orally Three times a WeekNot-Taking/PRN iron Not-Taking/PRN Tylenol , Notes: every 6 hoursNot-Taking/PRN OxyCONTIN , Notes: PRNNot-Taking/PRN Penicillin , Notes: temp 5 daysNot-Taking/PRN Warfarin Sodium 2 MG Tablet Oral Medication List reviewed and reconciled with the patient * Allergies:?Latex: rashFurose mideyes[Allergies Verified] Objective: * Vitals:?Ht: 5 ft 5 in, Wt: 1 61.5, BMI: 26.87, Shoe size: 8.5, BS: 151, Wt-k.26 kg. * ???Past Orders: ???Lab:HEMOGLOBIN A1C (GLYCO HEMOGLOBIN) (Order Date - 06/08/2023) (Collection Date - 06/08/2023) ? Value Reference Range ?HEMOGLOBIN A1C % (HH) 7.2 * Examination: ???Neurological: ?SENSORY:?Neurological exam demonstrates, reduced light touch sensation, reduced sharp/dull pin prick discrimination , Pt relates, burning, B/L, 5.07 monofilament test performed at plantar aspects of 5 varied sites per foot shows sensation, reduced, B/L.?Nails: ?NAILS are:?Elongated, overgrown, dystrophic, lytic, greater than 3mm thick, discolored and friable with crumbly malodorous subungual debris, TA, T5, remaining nails are elongated, overgrown, dystrophic.?Dermatologic: ?SKIN FINDINGS:? Skin exam reveals Keratotic lesion(s) located at, Medial plantar, IPJ, TA, Medial plantar, IPJ, T5.?Orthopedic: ?DIGITAL DEFORMITIES:?Digital contracture, PIPJ, 2-5 B/L, incompl-reducible to push-up test, no over, nor underlapping.?FOOTWEAR:?good condition, exhibit proper fit and accommodation for pedal deformities. OT were inspected and noted to be worn, but in good condition giving proper support at the present time.? Assessment: * Assessment: 1.?Tinea unguium - B35.1?2.? Type 2 diabetes mellitus with diabetic polyneuropathy - E11.42 (Primary)?3.?Other hammer toe(s) (acquired), right foot - M20.41, Chronic problem, Stable (1=3,2=4), Response to treatment,Improvement?4.?Other hammer toe(s) (acquired), left foot - M20.42, Chronic problem, Stable (1=3,2=4), Response to treatment,Improvement? Plan: * Treatment: * Procedures:?Debride Nails 1-5:?Procedure:?Nail debridement performed extensively to reduce/remove overall nail length, girth, thickness, subungual debris, and necrotic tissue, by manual and electrical means through the use of a nail nipper and/or dremel, to more viable healthy nail plate or bed tissue 1-5. Silver nitrate used for any petechial bleeding as necessary. Patient chooses, no pharmaceutical tx (72248).?Keratoma Treatment:?Parring or Cutting of Benign Hyperkeratotic Lesion(s)?94342 ( 2-4 Lesions ) - The Benign hyperkeratotic lesions, as described above were pared, and/or cut utilizing a sterile 15 blade, tissue nippers, and/or dremel.?Nail Reduction:?Nail Reduction?Trimming of dystrophic nails performed to reduce/remove overall nail length and girth, by manual and electrical means with use of a nail nipper and/or dremel, to more viable healthy nail plate or bed tissue 6-10 (G0127).? * Procedure Codes:?G0127 LORENA ING DYSTROPHIC NAILS ANY #, Modifiers: XS 95975 DEBRIDE NAIL, 1-5, Modifiers: XS 10553 TRIM SKIN LESIONS, 2 TO 4, Modifiers: XS * Preventive Medicine:? ??Counseling:?Discussion:?-13: Office or other outpatient visit for the evaluation and management of an established patient, which required a medically appropriate history and/or examination and LOW level of DECISION MAKING for: 1 STABLE ACUTE UNCOMPLICATED PROBLEM, 2 OR MORE MINOR PROBLEMS, OR 1 STABLE CHRONIC PROBLEM, THAT POSE(S) A LOW RISK FOR MORBIDITY/MORTALITY. The visit on the day of the encounter encompassed interpreting the data and educating the patient as to the nature of their condition, treatment options available according to their individual PMH, meds, allergies, and overall health/living conditions, as well as any potential risks or complications that may occur from a failure to adhere to, and participate in, the recommended course of therapy. The discussion included a complete verbal, and/or written explanation of the examination results, any x-rays taken, the proposed diagnosis, and outline of the treatment plan. A schedule for future care needs was also explained. The patient verbalized an understanding of the instructions at this time and agreed to be an active participant in their treatment. If the patient should think of any questions or concerns after the visit, I have encouraged the patient to call the office.?Shoe Gear Counseling:?A thorough inspection of the patients Rxed shoegear and inserts was performed and findings communicated. We reviewed the many important medical advantages for adhering to regularly wearing these shoe and insert accomidative devices daily as well as reviewed the fact that a failure in accepting these recommedations may be deleterious, unable to prevent, and disadvantagely result in, many pedal complications such as skin irritation, skin ulceration, infection, and even loss of toe/foot/leg/or even their life. Time was also spent reviewing the proper footcare techniques including daily skin moisturization, daily foot inspection for any interruption in skin integrity, open lesions, or sign of infection such as redness/malodor/drainage/swelling as well as daily shoe inspection for the presence of internal foreign bodies and shoe as well as insert wear. Patient questions re: shoes, inserts, and self foot inspections were answered to their satisfaction as the patient verbally confirmed a full understanding of the above information.? * Follow Up:?prn * Images: * Sign off status: Completed true * Provider:?Estuardo Mccarthy DPM Date:?2023 Generated for Douglas thomas/Juana/iLzandro on:?03/05/2024 02:42 PM EST History and Physical Notes * HPI (History of Present Illness) Category Sub-Category Detail Notes Category Not es Toe pain Treatments: Rx shoes At Risk footcare Pt States Last PCP Visit: Date: 3 [facility] States has an appt w ith PCP soon - 06/19 Examination Category Sub-Category Detail Notes Category Not es Neurological SENSORY: Neurological exa m demonstrates, reduced light touch sensation, reduced sharp/dull pin prick discrimination , Pt relates, burning, B/L, 5.07 monofilament test performed at plantar aspects of 5 varied sites per foot shows sensation, reduced, B/L Dermatologic SKIN FINDINGS: Skin exam reveal s Keratotic lesion(s) located at, Medial plantar, IPJ, TA, Medial plantar, IPJ, T5 Orthopedic FOOTWEAR: good condition, exhibit proper fit and accommodation for pedal deformities. OT were inspected and noted to be worn, but in good condition giving proper support at the present time DIGITAL DEFORMITIES: Digital contracture , PIPJ, 2-5 B/L, incompl-reducible to push-up test, no over, nor underlapping Nails NAILS are: Elongated, overg rown, dystrophic, lytic, greater than 3mm thick, discolored and friable with crumbly malodorous subungual debris, TA, T5, remaining nails are elongated, overgrown, dystrophic
--- OUTSIDE RECORDS SUMMARY | 2024-03-05 14:42 | XMS_ITS ---
Author Organization [facility] Address [address] [place] [address] Care Team Providers Care Blood Bank Coordinator Name Role Phone Bonnie DUVALL, Patricia De La Garza Primary Care Provider Un available Estuardo Mccarthy Unavailable [phone] Allergies Allergen (clinical drug ingredient) Drug/Non Drug Allergy documented on EMR Reaction Allergy Type Onset Date Status furosemide Furosemide Unknown Drug Allergy Activ e Latex Latex rash Allergy Active REASON FOR VISIT At Risk Footcare Medications Medication SIG (Take, Route, Frequency, Duration) Notes Start Date End Date Status PreserVision AREDS A ctive Metoprolol Succinate ER 25 MG 1 tablet Orally Once a day Active metFORMIN HCl 1000 MG Oral for 90 Active Spironolactone 25 MG Oral for 90 Active Rosuvastatin Calcium 5 MG Oral for 90 Active Magnesium 500 MG Orally Once a day Active CoQ-10 100 MG 1 capsule with a meal Orally Once a day for 30 day(s) Active Digoxin 125 MCG Oral for 90 Ac tive Estrace Active eliquis Active HumaLOG Active Lantus Active Citracal + D Twice a day Not-T aking amLODIPine Besylate 5 MG Oral for 90 Active Losartan Potassium 50 MG 1 tablet Orally Once a day for 30 day(s) Active Pantoprazole Sodium 40 MG 1 tablet Orall y Once a day Active hydroCHLOROthiazide 25 MG 1 tablet in th e morning Orally Once a day Not-Taking Lasix 40 MG 1 tablet Orally Once a day Active Jardiance 10 MG 1 tablet Orally Once a day Active Gabapentin Active Warfarin Sodium 2 MG Oral for 75 Not-Taking Penicillin temp 5 days Not-Urbano ing OxyCONTIN PRN Not-Taking Stool Softener Activ e Tylenol every 6 hours Not-Taking Extra Depth Orthopedic Shoes (1 Pair) with Customized Heat Molded Multidensity Innersoles (3 Pair) as directed Dx: NIDDM/Polyneuropath y (E11.42), Hammertoe Foot Deformity (M20.41,M20.42), Preulcerative Skin Lesion(s) (L85.1 03/02/2023 Active Vitamin B1-B12 Injec once a Month Active iron Not-Taking Ferrocite 324 MG 1 tablet Orally Three times a Week for 30 day(s) Not-Taking Social History Tobacco Use: Social History Observation [...] user? No Vital Signs Height 5 ft 4in in 09/14/2023 Weight 154 lbs 09/14/2023 BMI 26.43 kg/m2 09/14/2023 Blood pressure systolic 120 mm Hg 09/14/19 24 Blood pressure diastolic 60 mm Hg 024 Procedures Procedure Date Ordered Date Performed Result Body Sit e 26155-ISFJMVL NAIL, 1-5 09/14/2023 N/A 71471-KEPQ SKIN LESIONS, 2 TO 4 09/14/2023 N/A H1830-QIJQLVAH DYSTROPHIC NAILS ANY # 09/14/2023 N/A Encounters Encounter Location Date Provider Diagnosis [facility] [address] [place] [address] 09/14/2023 Estuardo Mccarthy Type 2 diabetes mellitus with diabetic polyneuropathy E11.42 and Tinea unguium B35.1 Assessments Encounter Date Diagnosis (ICD Code) Assessment Notes Treatment Notes Treatment Clinical Notes Section Notes 09/14/2023 Type 2 diabetes mellitus with diabetic polyneuropathy (ICD-10 - E11.42) 09/14/2023 Tinea unguium (ICD-10 - B35.1) Plan Of Treatment Pending Test Test Name Order Date 41287-MUWZZDT NAIL, 1-5 09/14/2023 49539-VURY SKIN LESIONS, 2 TO 4 09/14/19 24 L3900-CNDMAPKN DYSTROPHIC NAILS ANY # Next Appt Details Follow Up: prn, Reason: Provider Name:Estuardo Mccarthy , 03/25/2024 03:30:00 PM, [address] [place], [address], Procedure Notes * Category Sub-Category Detail Notes Keratoma Treatment Parring or Cutting o f Benign Hyperkeratotic Lesion(s) 28283 ( 2-4 Lesions ) - The Benign [...] as necessary. Patient chooses, no pharmaceutical tx (04615) Nail Reduction Nail Reduction Trimming of dyst rophic nails performed to reduce/remove overall nail length and girth, by manual and electrical means with use of a nail nipper and/or dremel, to more viable healthy nail plate or bed tissue 6-10 (G0127) Progress Notes * Aminah KRAFT PDOB:[birth year] (83 yo F)Acc No.[id number]:09/14/2023 Progress Note Patient:?Aminah Kraft P Provider:?Estuardo Mccarthy DPM :1940???Age:83 Y???Sex:Female D ate:09/14/2023 Address:[address] [place], [place] [id number] Pcp:Amada Ferro Subjective: * Chief Complaints: * ???At Risk Footcare * HPI: ???At Risk footcare:?Pt States Last PCP Visit:?Date?06/20/2023 ?Misc?Patient accompanied by, Lyric dixon.? * ROS:?General/Constitutional:?Nausea?denies.?Vomiting?denies.?Hunger Thirst?denies.?Loss appetite?denies.?Chills?denies.?Fatigue?denies.?Fever?denies.?Night Sweats?denies.?Unexplained weight loss?denies.?Unexplained [...] Diagno stic Procedure:?urgent care -UTI given antiboitic 10/24/2021[facility] [place] 2 compound fractures back 5 days test done Rehab 2 weeks 12/12/21[facility] [place] - Nuclear exam done [address] [place] [address] - [facility] ER / ICU 08/29- * Family History:?Mother: dece ased, diagnosed with Unspecified essential hypertension.?Father: , diagnosed with Diabetic - NIDDM, Unspecified essential hypertension.?Spouse: .? * Social History:?Tobacco Use:?Tobacco Use/Smoking?Are you a:?former smoker ?Additional Findings: Tobacco Non-User?Current non-smoker ?Tobacco use other than smoking?Are you an other tobacco user??No ???Drugs/Alcohol:?Drugs?Have you used drugs other than those for medical reasons in the past 12 months??No ?Alcohol Screen?Did you have a drink containing alcohol in the past year??No ?Points?0 ?Interpretation?Negative ???Miscellaneous:?Caffeine: yes, decaff tea, 1-2 cups per day. ?Children: yes, 2. ?no Exercise. ?Marital status: . ?Occupation: Retired. * Medications:?TakingStool Sof tener Jardiance 10 MG Tablet 1 tablet Orally Once a dayLasix 40 MG Tablet 1 tablet Orally Once a dayGabapentin Pantoprazole Sodium 40 MG Tablet Delayed Release 1 tablet Orally Once a dayLantus HumaLOG Losartan Potassium 50 MG Tablet 1 tablet Orally Once a dayamLODIPine Besylate 5 MG Tablet Oral CoQ-10 100 MG Capsule 1 capsule with [...] Foot Deformity (M20.41,M20.42), Preulcerative Skin Lesion(s) (L85.1Taking Stool Softener Taking Jardiance 10 MG Tablet 1 tablet Orally Once a dayTaking Lasix 40 MG Tablet 1 tablet Orally Once a dayTaking Gabapentin Taking Pantoprazole Sodium 40 MG Tablet Delayed Release 1 tablet Orally Once a dayTaking Lantus Taking HumaLOG Taking Losartan Potassium 50 MG Tablet 1 tablet Orally Once a dayTaking amLODIPine Besylate 5 MG Tablet Oral Taking CoQ-10 100 MG Capsule 1 capsule with [...] Hammertoe Foot Deformity (M20.41,M20.42), Preulcerative Skin Lesion(s) (L85.1Not-Taking/PRNhydroCHLOROthiazide 25 MG Tablet 1 tablet in the morning Orally Once a dayCitracal + D Twice a dayFerrocite 324 MG Tablet 1 tablet Orally Three times a Weekiron Tylenol , Notes: every 6 hoursOxyCONTIN , Notes: PRNPenicillin , Notes: temp 5 daysWarfarin Sodium 2 MG Tablet Oral Medication List reviewed and reconciled with the patientNot-Taking/PRN hydroCHLOROthiazide 25 MG Tablet 1 tablet in the morning Orally Once a dayNot-Taking/PRN Citracal + D Twice a dayNot-Taking/PRN Ferrocite 324 MG Tablet 1 tablet Orally Three times a WeekNot-Taking/PRN iron Not-Taking/PRN Tylenol , Notes: every 6 hoursNot-Taking/PRN OxyCONTIN , Notes: PRNNot-Taking/PRN Penicillin , Notes: temp 5 daysNot-Taking/PRN Warfarin Sodium 2 MG Tablet Oral Medication List reviewed and reconciled with the patient * Allergies:?Latex: rashFurose mideyes[Allergies Verified] Objective: * Vitals:?Ht: 5 ft 4in, Wt: 15 4, BMI: 26.43, Shoe size: 8.5, BP: 120/60 mm Hg, BS: 160, Ht-cm: 162.56 cm, Wt-k.85 kg. * ???Past Orders: ???Lab:HEMOGLOBIN A1C (GLYCO [...] Medial plantar, IPJ, TA, Medial plantar, IPJ, T5.? Assessment: * Assessment: 1.?Tinea unguium - B35.1?2.? Type 2 diabetes mellitus with diabetic polyneuropathy - E11.42 (Primary)? Plan: * Treatment: * Procedures:?Debride Nails 1-5:?Procedure:?Nail debridement performed extensively to reduce/remove overall nail length, girth, thickness, subungual debris, and necrotic tissue, by manual and electrical means through the use of a nail nipper and/or dremel, to more viable healthy nail plate or bed tissue 1-5. Silver nitrate used for any petechial bleeding as necessary. Patient chooses, no pharmaceutical tx (14859).?Keratoma Treatment:?Parring or Cutting of Benign Hyperkeratotic Lesion(s)?48722 ( 2-4 Lesions ) - The Benign [...] ING DYSTROPHIC NAILS ANY #, Modifiers: XS 49531 DEBRIDE NAIL, 1-5, Modifiers: XS 88026 TRIM SKIN LESIONS, 2 TO 4, Modifiers: XS * Follow Up:?prn * Images: * Sign off status: Completed true * Provider:?Estuardo Mccarthy DPM Date:?2023 Generated for Douglas thomas/Juana/Lizandro on:?03/05/2024 02:42 PM EST History and Physical Notes * HPI (History of Present Illness) Category Sub-Category Detail Notes Category Not es At Risk footcare Pt States Last PCP Visit: Date: 4 [facility] [place] Patient accompanied by, Lyric dixon Examination Category Sub-Category Detail Notes Category Not [...] plantar, IPJ, TA, Medial plantar, IPJ, T5 Nails NAILS are: Elongated, overg rown, dystrophic, lytic, greater than 3mm thick, discolored and friable with crumbly malodorous subungual debris, TA, T5, remaining nails are elongated, overgrown, dystrophic
--- OUTSIDE RECORDS SUMMARY | 2024-03-05 14:42 | XMS_ITS ---
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
--- OUTSIDE RECORDS SUMMARY | 2024-03-05 14:42 | XMS_ITS ---
Author Organization [facility] Address [address] [place] [address] Care Team Providers Care Car Top Bolter Name Role Phone Bonnie DUVALL, Patricia De La Garza Primary Care Provider Un available Estuardo Mccarthy Unavailable [phone] Allergies Allergen (clinical drug ingredient) Drug/Non Drug Allergy documented on EMR Reaction Allergy Type Onset Date Status furosemide Furosemide Unknown Drug Allergy Activ e Latex Latex rash Allergy Active REASON FOR VISIT At Risk Footcare Medications Medication SIG (Take, Route, Frequency, Duration) Notes Start Date End Date Status Tylenol every 6 hours Not-Taking OxyCONTIN PRN Not-Taking Penicillin temp 5 days Not-Urbano ing Ferrocite 324 MG 1 tablet Orally Three times a Week for 30 day(s) Not-Taking iron Not-Taking Spironolactone 25 MG Oral for 90 Active Vitamin B1-B12 Injec once a Month Active Extra Depth Orthopedic Shoes (1 Pair) with Customized Heat Molded Multidensity Innersoles (3 Pair) as directed Dx: NIDDM/Polyneuropath y (E11.42), Hammertoe Foot Deformity (M20.41,M20.42), Preulcerative Skin Lesion(s) (L85.1 03/02/2023 Active hydroCHLOROthiazide 25 MG 1 tablet in th e morning Orally Once a day Not-Taking Citracal + D Twice a day Not-T aking metFORMIN HCl 1000 MG Oral for 90 Active Metoprolol Succinate ER 25 MG 1 tablet Orally Once a day Active PreserVision AREDS A ctive Rosuvastatin Calcium 5 MG Oral for 90 Active Magnesium 500 MG Orally Once a day Active amLODIPine Besylate 5 MG Oral for 90 Active CoQ-10 100 MG 1 capsule with a meal Orally Once a day for 30 day(s) Active Digoxin 125 MCG Oral for 90 Ac tive eliquis Active Estrace Active Gabapentin Active Pantoprazole Sodium 40 MG 1 tablet Orall y Once a day Active Lantus Active HumaLOG Active Losartan Potassium 50 MG 1 tablet Orally Once a day for 30 day(s) Active Warfarin Sodium 2 MG Oral for 75 Not-Taking Stool Softener Activ e Jardiance 10 MG 1 tablet Orally Once a day Active Lasix 40 MG 1 tablet Orally Once a day Active Social History Tobacco Use: Social History [...] Vital Signs Height 5 ft 4in in 12/14/2023 Weight 154 lbs 12/14/2023 BMI 26.43 kg/m2 12/14/2023 Blood pressure systolic 120 mm Hg 12/14/19 24 Blood pressure diastolic 60 mm Hg 024 Procedures Procedure Date Ordered Date Performed Result Body Sit e 45928-NAWPKET NAIL, 1-5 12/14/2023 N/A 70754-HUXV SKIN LESIONS, 2 TO 4 12/14/2023 N/A O5937-LUOOEYZP DYSTROPHIC NAILS ANY # 12/14/2023 N/A Encounters Encounter Location Date Provider Diagnosis [facility] [place] [address] [place] [address] 12/14/2023 Estuardo Mccarthy Type 2 diabetes mellitus with diabetic polyneuropathy E11.42 and Tinea unguium B35.1 Assessments Encounter Date Diagnosis (ICD Code) Assessment Notes Treatment Notes Treatment Clinical Notes Section Notes 12/14/2023 Type 2 diabetes mellitus with diabetic polyneuropathy (ICD-10 - E11.42) 12/14/2023 Tinea unguium (ICD-10 - B35.1) Plan Of Treatment Pending Test Test Name Order Date 13330-YAXVKGY NAIL, 1-5 12/14/2023 15163-TEZB SKIN LESIONS, 2 TO 4 12/14/19 24 N2510-FRPGBGCB DYSTROPHIC NAILS ANY # Next Appt Details Follow Up: prn, Reason: Provider Name:Estuardo Mccarthy , 03/25/2024 03:30:00 PM, [address] [place], [address], Procedure Notes * Category Sub-Category Detail Notes Keratoma Treatment Parring or Cutting o f Benign Hyperkeratotic Lesion(s) (-56) 2-4 Lesions - The Benign hyperkeratotic lesions, as described above were pared, and/or cut utilizing a sterile 15 blade, tissue nippers, and/or dremel - 54437 Debride Nails 1-5 Procedure: Performance of this nail treatment by a nonprofessional would put this patients foot and overall health at risk. Therefore, nail debridement was performed extensively to reduce/remove overall nail length, girth, thickness, subungual debris, and necrotic tissue, by manual and/or electrical means through the use of a nail nipper and/or dremel-type crystal flat grinder, to a more viable healthy nail plate or bed tissue 1-5. Silver nitrate used for any petechial bleeding as necessary. Definitive antifungal treatment options have been reviewed and discussed with the patient. The patient chooses, no pharmaceutical tx - 37328 Nail Reduction Nail Reduction (-27) Trimming o f dystrophic nails performed to reduce/remove overall nail length and girth, by manual and electrical means with use of a nail nipper and/or dremel, to more viable healthy nail plate or bed tissue, any number - G0127 Progress Notes * Aminah KRAFT PDOB:[birth year] (83 yo F)Acc No.[id number]:12/14/2023 Progress Note Patient:?Aminah Kraft P Provider:?Estuardo Mccarthy DPM :1940???Age:83 Y???Sex:Female D ate:12/14/2023 Address:[address] [place] [address] [address] [id number] Pcp:Amada Ferro Subjective: * Chief Complaints: * ???At Risk Footcare * HPI: ???At Risk footcare:?Pt States Last PCP Visit:?Date?12/05/2023 * ROS:?General/Constitutional:?Nausea?denies.?Vomiting?denies.?Hunger Thirst?denies.?Loss appetite?denies.?Chills?denies.?Fatigue?denies.?Fever?denies.?Night Sweats?denies.?Unexplained weight loss?denies.?Unexplained [...] stic Procedure:?urgent care -UTI given antiboitic [place] [place] 5 days test done Rehab 2 weeks 12/12/[place] [place] [facility] * Family History:?Mother: [...] Verified] Objective: * Vitals:?Ht: 5 ft 4in, Wt:154 , BMI: 26.43, Shoe size:8.5, BP:120/60 mm Hg, BS:139, Ht-cm: 162.56 cm, Wt-k.85 kg. * ???Past [...] (Primary)? Plan: * Treatment: * Procedures:?Debride Nails 1-5:?Procedure:?Performance of this nail treatment by a nonprofessional would put this patients foot and overall health at risk. Therefore, nail debridement was performed extensively to reduce/remove overall nail length, girth, thickness, subungual debris, and necrotic tissue, by manual and/or electrical means through the use of a nail nipper and/or dremel-type crystal flat grinder, to a more viable healthy nail plate or bed tissue 1-5. Silver nitrate used for any petechial bleeding as necessary. Definitive antifungal treatment options have been reviewed and discussed with the patient. The patient chooses, no pharmaceutical tx - 03369.?Keratoma Treatment:?Parring or Cutting of Benign Hyperkeratotic Lesion(s)?(-56) 2-4 Lesions - The Benign hyperkeratotic lesions, as described above were pared, and/or cut utilizing a sterile 15 blade, tissue nippers, and/or dremel - 31104.?Nail Reduction:?Nail Reduction?(-27) Trimming of dystrophic nails performed to reduce/remove overall nail length and girth, by manual and electrical means with use of a nail nipper and/or dremel, to more viable healthy nail plate or bed tissue, any number - G0127.? * Procedure Codes:?G0127 LORENA ING DYSTROPHIC NAILS ANY #, Modifiers: XS 19309 DEBRIDE NAIL, 1-5, Modifiers: XS 04379 TRIM SKIN LESIONS, 2 TO 4, Modifiers: XS * Follow Up:?prn * Images: * Sign off status: Completed true * Provider:?Estuardo Mccarthy DPM Date:?2023 Generated for Douglas thomas/Juana/eTransmitting on:?03/05/2024 02:42 PM EST History and Physical Notes * HPI (History of Present Illness) Category Sub-Category Detail Notes Category Not es At Risk footcare Pt States Last PCP Visit: Date: Examination Category Sub-Category Detail Notes Category Not [...]
--- OUTSIDE RECORDS SUMMARY | 2024-03-05 14:43 | XMS_ITS ---
Author Organization [facility] Address [address] [place] [address] Care Team Providers Care Horse Racing Manager Name Role Phone Bonnie DUVALL, Patricia Primary Care Provider Chaz Dunaway [phone] REASON FOR VISIT in hospital Encounters Encounter Location Date Provider Diagnosis [facility] [address] [place] [address] 09/05/2023 Chaz Mendez PLAN OF TREATMENT No Information
--- OUTSIDE RECORDS SUMMARY | 2024-03-05 14:43 | XMS_ITS ---
Author Organization [facility] Address [address] [place] [address] Care Team Providers Care Appellate Court Clerk Name Role Phone Bonnie DUVALL, Patricia Primary Care Provider Chaz Dunaway [phone] ALLERGIES Allergen (clinical drug ingredient) Drug/Non Drug Allergy documented on EMR Reaction Allergy Type Onset Date Status acetaminophen / oxycodone Percocet Unknown Drug Allergy Active lisinopril Lisinopril Unknown Drug Allergy Activ e meperidine Demerol Unknown Drug Allergy Active Substance with 0-sqhvjbl-2-methylglutar yl-coenzyme A reductase inhibitor mechanism of action (substance) statin drugs (uncoded) Unknown Allergy Active Latex latex (uncoded) Unknown Allergy Acti ve Tambocor Unknown Drug Allergy Active REASON FOR VISIT Patient presents today for epigastric pain MEDICATIONS Medication SIG (Take, Route, Frequency, Duration) Notes Start Date End Date Status Spironolactone 25 MG Oral for 30 I509,Nita herbert able Active Pantoprazole Sodium 40 MG Oral for 30 K219,U navail able Active Eliquis 5 MG 1 tablet Orally Twice a day Active Famotidine 40 MG TAKE 1 TABLET BY MOUTH EVERY DAY AT BEDTIME for 30 Active Gabapentin 100 MG Oral for 30 E1141,Nita jay Active Magnesium 250 MG 1 tablet with a meal Orally Twice a day 04/13/2022 Active hydroCHLOROthiazide 25 MG Oral for 90 Active Metoprolol Succinate ER 25 MG 1 tablet Orally Once a day Active Ferrocite 324 MG 1 tablet Orally 1 po qd Active HumaLOG KwikPen 200 UNIT/ML Subcutaneous for 103 Active Rosuvastatin Calcium 5 MG TAKE 1 TABLET BY MOUTH 3 TIMES A WEEK Oral for 90 Active PreserVision AREDS - as directed Orally 04/13/2022 Active Losartan Potassium 50 MG 1 tablet Orally Once a day for 30 day(s) 04/13/2022 Active amLODIPine Besylate 5 MG 1 tablet Orally Once a day Active Lantus 100 UNIT/ML Subcutaneous Active metFORMIN HCl 1000 MG 1 tablet with meal s Orally Twice a day Active CoQ-10 100 MG as directed Orally 04/13/2022 Active Citracal +D3 Active Melatonin Active Allergy Active Stool Softener 100 MG 1 capsule as neede d Orally Once a day for 30 day(s) Active Vitamin B12 1000 MCG 1 tablet Orally Once a day for 30 day(s) 04/13/2022 Active Stool Softener & Laxative Active VITAL SIGNS BMI 27.30 kg/m2 03/07/2023 Blood pressure systolic 000 mm Hg 03/07/20 23 Blood pressure diastolic 00 mm Hg 023 Height 64 in 03/07/2023 Temperature 97.7 degrees Fahrenheit 03/07/20 23 Weight 159 lb 1 oz lbs 03/07/2023 Encounters Encounter Location Date Provider Diagnosis [facility] [address] [place] [address] 03/07/2023 Chaz Mendez 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 Wadsworth. Keep me posted with the results after you have it done. PLAN OF TREATMENT Treatment Notes Assessment Notes Ampullary adenoma Get cardiology clear ance before you have the procedure with Dr. Wadsworth. Keep me posted with the results after you have it done. Next Appt Details Follow Up: 6 Months, Reason: Progress Notes * Examination Category Sub-Category Detail Notes General Examination GENERAL APPEARANCE: pleasant , well nourished, well developed, in no acute distress HEAD: EYES: sclera non-icteric EARS: NOSE: THROAT: NECK/THYROID: no cervical lymphade nopathy, neck supple HEART: S1, S2 normal CHEST: LUNGS: clear to auscultatio n bilaterally ABDOMEN: normal bowel sounds, no guarding or rigidity, no guarding or rigidity, no masses palpable, soft, nontender, nondistended NEUROLOGIC: alert and oriented SKIN: nonjaundiced, no spi krystyna angiomata EXTREMITIES: no edema PERIPHERAL PULSES: BACK: BREASTS: MUSCULOSKELETAL: MALE GENITOURINARY: LYMPH NODES: RECTAL EXAM: FEMALE GENITOURINARY: ORAL CAVITY: mucosa moist
--- OUTSIDE RECORDS SUMMARY | 2024-03-05 14:43 | XMS_ITS | Clinical Summary ---
Author Organization Unknown Care Team Providers Care [employer] Architect Name Role Phone RENETTA DUVALL, ADRI MOURA Unavailable Unavaila mario CROWLEY RN, ELMER Unavailable Unavailable RICHIE ALICEA, SANTIAGO Unavailable Unavailjohana MARCELO PT, AMIRA Unavailable Unavailable SPAFFORD OT, SOLEDAD Unavailable Unavailable Payers Payer Name Policy Type Policy Number Effective Date Expira tion Date MEDICARE.NGS.PDGM [id number] Problems Condition Name Condition Details Condition Category Status Onset Date Resolution Date Last Treatment Date Treating Clinician Comments AGE-REL OSTEOPOR W CRNT PATH FX, VERTEB, 7THD Active 2021-03 0- 00:00: 00 ESSENTIAL (PRIMARY) HYPERTENSION Active 2021-03 0-03 00:00: 00 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 Active 2021-03 0-03 00:00: 00 CHRONIC ATRIAL FIBRILLATION , UNSPECIFIED Active 2021-03 0-03 00:00: 00 PULMONARY HYPERTENSION , UNSPECIFIED Active 2021-03 0-03 00:00: 00 ANEMIA, UNSPECIFIED Active 2021-03 0-03 00:00: 00 CALCULUS OF KIDNEY Active 2021-03 0-03 00:00: 00 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 Active 2021-03 0-03 00:00: 00 CONSTIPATION , UNSPECIFIED Active 2021-03 0-03 00:00: 00 GASTRO-ESOPH AGEAL REFLUX DISEASE WITHOUT ESOPHAGITIS Active 2021-03 0-03 00:00: 00 HYPERLIPIDEM IA, UNSPECIFIED Active 2021-03 0-19 00:00: 00 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 .... Propensity to adverse reactions Active 2021-03 11:22: 49 BACITRACIN Propensity to adverse reactions Active 2021-03 11:22: 59 NEOMYCIN Propensity to adverse reactions Active 2021-03 11:23: 06 A SULFAMETHOXA ZOLE Propensity to adverse reactions Active 2021-03 11:23: 19 CEPHALEXIN Propensity to adverse reactions Active 2021-03 11:23: 29 Medications Ordered Medication Name Filled Medication Name Start Date Stop Date Current Medication? Ordering Clinician Indication Dosage Frequency Signature (SIG) Comments Components Humalog KwikPen U-200 Insulin 200 unit/mL (3 mL) subcutaneou s 2021-03 0 00:00: 00 01-07 00:00 :00 No [id number] Per instruc tions Per instructio ns (route: subcutaneo ) Med Classific ation: Endocrine warfarin 2 mg tablet 2021-03 00:00: 00 01-07 00:00 :00 No [id number] Per instruc tions Per instructio ns (route: oral) Med Classific ation: Hematolog ical Agents amlodipine 5 mg tablet 2021-03 00:00: 00 Yes [id number] HTN 1 tablet DAILY 1 tablet DAILY (route: oral) Med Classific ation: Cardiovas cular Therapy Agents metformin 1,000 mg tablet 2021-03 00:00: 00 Yes [id number] DM 1 tablet 2 TIMES DAILY 1 tablet 2 TIMES DAILY (route: oral) Med Classific ation: Endocrine spironolact one 25 mg tablet 2021-03 00:00: 00 Yes [id number] KIDNEY 1 tablet DAILY 1 tablet DAILY (route: oral) Med Classific ation: Cardiovas cular Therapy Agents calcium carbonate 500 mg calcium (1,250 mg) tablet 2021-03 00:00: 00 Yes [id number] DYSPEPSIA 1 tablet DAILY 1 tablet DAILY (route: oral) Med Classific ation: Electroly te Balance-N utritiona l Products Estrace 0.01% (0.1 mg/gram) vaginal cream 2021-03 00:00: 00 Yes [id number] DRYNESS 1 cm 3 TIMES A WEEK 1 cm 3 TIMES A WEEK (route: vaginal) Med Classific ation: Vaginal Products Lantus Solostar U-100 Insulin 100 unit/mL (3 mL) subcutaneou s pen 2021-03 00:00: 00 Yes [id number] DM 20 unit DAILY 20 unit DAILY (route: subcutaneo us) Med Classific ation: Endocrine metoprolol succinate ER 25 mg tablet,exte nded release 24 hr 2021-03 00:00: 00 Yes [id number] HTN 1 tablet DAILY 1 tablet DAILY (route: oral) Med Classific ation: Cardiovas cular Therapy Agents oxycodone 5 mg tablet 2021-03 00:00: 00 Yes [id number] SEVERE PAIN 1 tablet EVERY 6 HOURS 1 tablet EVERY 6 HOURS (route: oral) Med Classific ation: Analgesic , Anti-infl ammatory or Antipyret ic rosuvastati n 5 mg tablet 2021-03 00:00: 00 Yes [id number] CHOLESTEROL 1 tablet 3 TIMES A WEEK 1 tablet 3 TIMES A WEEK (route: oral) Med Classific ation: Cardiovas cular Therapy Agents warfarin 5 mg tablet 2021-03 00:00: 00 01-09 23:59 :00 No [id number] A FIB 1 tablet DAILY 1 tablet DAILY (route: oral) Med Classific ation: Hematolog ical Agents B12 Active 1,000 mcg chewable tablet 2021-03 00:00: 00 Yes [id number] SUPPLEMENT 1 tablet DAILY 1 tablet DAILY (route: oral) Med Classific ation: Electroly te Balance-N utritiona l Products calcium citrate 200 mg calcium-vit puckett D3 3.125 mcg (125 unit) tablet 2021-03 00:00: 00 Yes [id number] OSTEOPOROSI S 1 tablet DAILY 1 tablet DAILY (route: oral) Med Classific ation: Electroly te Balance-N utritiona l Products Co Q-10 10 mg capsule 2021-03 00:00: 00 Yes [id number] SUPPLEMENT 1 capsule DAILY 1 capsule DAILY (route: oral) Med Classific ation: Alternati ve Therapy Ferrocite 324 mg (106 mg iron) tablet 2021-03 00:00: 00 Yes [id number] ANEMIA 1 tablet BEDTIME 1 tablet BEDTIME (route: oral) Med Classific ation: Electroly te Balance-N utritiona l Products Humalog KwikPen (U-100) Insulin 100 unit/mL [facility] 2021-03 00:00: 00 Yes [id number] BS 2 unit DIRECTED 2 unit DIRECTED (route: subcutaneo us) Med Classific ation: Endocrine Humalog KwikPen (U-100) Insulin 100 unit/mL [facility] 2021-03 00:00: 00 Yes [id number] BS 4 unit DIRECTED 4 unit DIRECTED (route: subcutaneo us) Med Classific ation: Endocrine Humalog KwikPen (U-100) Insulin 100 unit/mL [facility] 2021-03 00:00: 00 Yes [id number] BS 6 unit DIRECTED 6 unit DIRECTED (route: subcutaneo us) Med Classific ation: Endocrine Humalog KwikPen (U-100) [facility]-03 00:00: 00 Yes [id number] BS 8 unit DIRECTED 8 unit DIRECTED (route: subcutaneo us) Med Classific ation: Endocrine Humalog KwikPen (U-100) [facility]:00: 00 Yes [id number] BS 10 unit DIRECTED 10 unit DIRECTED (route: subcutaneo us) Med Classific ation: Endocrine Humalog KwikPen (U-100) Insulin 100 unit/mL subcutane s 2021-03 00:00: 00 Yes [id number] DM 12 unit DIRECTED 12 unit DIRECTED (route: subcutaneo us) Med Classific ation: Endocrine magnesium oxide 500 mg tablet 2021-03 00:00: 00 Yes [id number] SUPPLEMENT 1 tablet DAILY 1 tablet DAILY (route: oral) Med Classific ation: Electroly te Balance-N utritiona l Products Miralax 17 gram oral powder packet 2021-03 00:00: 00 Yes [id number] CONSTIPATIO N 17 g DAILY 17 g DAILY (route: oral) Med Classific ation: Gastroint estinal Therapy Agents PreserVisio n AREDS-2 250 mg-90 mg-40 mg-1 mg capsule 2021-03 00:00: 00 Yes [id number] EYE HEALTH 1 capsule 2 TIMES DAILY 1 capsule 2 TIMES DAILY (route: oral) Med Classific ation: Alternati ve Therapy Eliquis 5 mg tablet 2021-03 00:00: 00 Yes [id number] BLOOD THINNER 1 tablet 2 TIMES DAILY 1 tablet 2 TIMES DAILY (route: oral) Alternate Route: BY MOUTH. Med Classific ation: Hematolog ical Agents Vital Signs Vital Name Observation Time Observation Value Commen ts Temperature 2022-03-03 11:22:00.000 98.3 [degF] Temperature 2022-02-16 14:09:00.000 97.7 [degF] Temperature 2022-02-02 09:56:00.000 97.8 [degF] Temperature 2022-01-24 13:41:00.000 97.9 [degF] Temperature 2022-01-19 10:36:00.000 98.3 [degF] Temperature 2022-01-18 15:36:00.000 98 [degF] Temperature 2022-01-13 15:45:00.000 97.6 [degF] Temperature 2022-01-12 21:34:00.000 97.7 [degF] Temperature 2022-01-10 15:55:00.000 98.6 [degF] Temperature 2022-01-09 11:15:00.000 97.5 [degF] Temperature 2022-01-07 09:39:00.000 97.9 [degF] BMI (%) 2022-01-07 08:59:40.000 27 kg/m2 Height 2022-01-07 08:59:34.000 64 [in_us] Pulse 2022-03-03 11:22:00.000 75 /min Pulse 2022-02-16 14:09:00.000 64 /min Pulse 2022-02-02 09:56:00.000 84 /min Pulse 2022-01-24 13:41:00.000 69 /min Pulse 2022-01-19 10:36:00.000 70 /min Pulse 2022-01-18 15:36:00.000 62 /min Pulse 2022-01-13 15:45:00.000 66 /min Pulse 2022-01-12 21:34:00.000 70 /min Pulse 2022-01-10 15:55:00.000 99 /min Pulse 2022-01-09 11:15:00.000 66 /min Pulse 2022-01-07 09:39:00.000 90 /min O2 Saturation (%) 2022-03-03 11:25:00.000 95 % O2 Saturation (%) 2022-02-16 14:09:00.000 97 % O2 Saturation (%) 2022-02-02 09:56:00.000 96 % O2 Saturation (%) 2022-01-19 10:40:00.000 100 % O2 Saturation (%) 2022-01-12 21:35:00.000 96 % O2 Saturation (%) 2022-01-10 15:55:00.000 95 % O2 Saturation (%) 2022-01-07 09:42:00.000 93 % Respirations 2022-03-03 11:22:00.000 16 /min Respirations 2022-02-16 14:14:00.000 18 /min Respirations 2022-02-02 09:56:00.000 18 /min Respirations 2022-01-24 13:41:00.000 18 /min Respirations 2022-01-19 10:36:00.000 16 /min Respirations 2022-01-18 15:36:00.000 18 /min Respirations 2022-01-13 15:45:00.000 18 /min Respirations 2022-01-12 21:34:00.000 18 /min Respirations 2022-01-10 15:55:00.000 18 /min Respirations 2022-01-09 11:15:00.000 18 /min Respirations 2022-01-07 09:39:00.000 16 /min Weight (lbs) 2022-01-19 10:40:00.000 163 [lb_av] Weight (lbs) 2022-01-07 08:59:40.000 161 [lb_av] Systolic Blood Pressure 2022-03-03 11:22:00.000 140 mm [Hg] Systolic Blood Pressure 2022-02-16 14:09:00.000 128 mm [Hg] Systolic Blood Pressure 2022-02-02 09:56:00.000 122 mm [Hg] Systolic Blood Pressure 2022-01-24 13:41:00.000 138 mm [Hg] Systolic Blood Pressure 2022-01-19 10:36:00.000 140 mm [Hg] Systolic Blood Pressure 2022-01-18 15:36:00.000 112 mm [Hg] Systolic Blood Pressure 2022-01-13 15:45:00.000 140 mm [Hg] Systolic Blood Pressure 2022-01-12 21:34:00.000 124 mm [Hg] Systolic Blood Pressure 2022-01-10 15:55:00.000 120 mm [Hg] Systolic Blood Pressure 2022-01-09 11:15:00.000 130 mm [Hg] Systolic Blood Pressure 2022-01-07 09:39:00.000 128 mm [Hg] Diastolic Blood Pressure 2022-03-03 11:22:00.000 80 mm [Hg] Diastolic Blood Pressure 2022-02-16 14:09:00.000 68 mm [Hg] Diastolic Blood Pressure 2022-02-02 09:56:00.000 68 mm [Hg] Diastolic Blood Pressure 2022-01-24 13:41:00.000 82 mm [Hg] Diastolic Blood Pressure 2022-01-19 10:36:00.000 60 mm [Hg] Diastolic Blood Pressure 2022-01-18 15:36:00.000 62 mm [Hg] Diastolic Blood Pressure 2022-01-13 15:45:00.000 72 mm [Hg] Diastolic Blood Pressure 2022-01-12 21:34:00.000 70 mm [Hg] Diastolic Blood Pressure 2022-01-10 15:55:00.000 68 mm [Hg] Diastolic Blood Pressure 2022-01-09 11:15:00.000 72 mm [Hg] Diastolic Blood Pressure 2022-01-07 09:39:00.000 78 mm [Hg] Plan of Treatment Planned Activity Planned Date Details Comments Future Scheduled Test PHYSICAL T HERAPIST TO EVALUATE FOR STRENGTH AN ENDURANCE AN BALANCE [code = PHYSICAL THERAPIST TO EVALUATE FOR STRENGTH AN ENDURANCE AN BALANCE] Future Scheduled Test OCCUPATION AL THERAPIST TO EVALUATE FOR BALANCE, SAFETY IN BR [code = OCCUPATIONAL THERAPIST TO EVALUATE FOR BALANCE, SAFETY IN BR] Future Scheduled Test MEDICATION MANAGEMENT; SKILLED NURSE TO REVIEW MEDICATIONS FOR INTERACTIONS, EFFECTIVENESS OF DRUG THERAPY, AND SIGNS/SYMPTOMS OF ADVERSE REACTIONS. MAY INSTRUCT AND REINFORCE MEDICATION TEACHING RELATED TO THE USE OF MEDICATIONS, DOSAGE, FREQUENCY, PURPOSE, SIDE EFFECTS, AND TO REPORT COMPLICATIONS. [code = MEDICATION MANAGEMENT; SKILLED NURSE TO REVIEW MEDICATIONS FOR INTERACTIONS, EFFECTIVENESS OF DRUG THERAPY, AND SIGNS/SYMPTOMS OF ADVERSE REACTIONS. MAY INSTRUCT AND REINFORCE MEDICATION TEACHING RELATED TO THE USE OF MEDICATIONS, DOSAGE, FREQUENCY, PURPOSE, SIDE EFFECTS, AND TO REPORT COMPLICATIONS. ] Future Scheduled Test FALL REDUC TION MANAGEMENT; NURSING TO PROVIDE SKILLED ASSESSMENT, EDUCATION, AND INTERVENTION TO IDENTIFY FALL RISK FACTORS SUCH MEDICATIONS THAT MAY CAUSE DIZZINESS, CHRONIC DISEASES, PSYCHOLOGICAL FACTORS, AND EMPOWER/EDUCATE PATIENT/CAREGIVER TO MINIMIZE FALL RISK. [code = FALL REDUCTION MANAGEMENT; NURSING TO PROVIDE SKILLED ASSESSMENT, EDUCATION, AND INTERVENTION TO IDENTIFY FALL RISK FACTORS SUCH MEDICATIONS THAT MAY CAUSE DIZZINESS, CHRONIC DISEASES, PSYCHOLOGICAL FACTORS, AND EMPOWER/EDUCATE PATIENT/CAREGIVER TO MINIMIZE FALL RISK.] Future Scheduled Test DIABETES M ANAGEMENT; SKILLED NURSE FOR INSTRUCTIONS OF DIABETIC CARE TO INCLUDE: DIET CONSISTENT CARBS, DIABETIC SKIN CARE, SIGNS AND SYMPTOMS OF HYPO/HYPERGLYCEMIA, PROPER ADMINISTRATION OF DIABETIC MEDICATION. SKILLED NURSE TO INSTRUCT ON DIABETIC FOOT CARE AND MONITOR FOR SKIN LESIONS ON LOWER EXTREMITIES. BLOOD GLUCOSE TESTING 4X DAY SKILLED NURSE TO ASSESS PATIENT/CAREGIVER ABILITY TO PERFORM AND RECORD BLOOD GLUCOSE TESTING ORDERED AND TO REPORT ABNORMAL FINDINGS TO PHYSICIAN. SKILLED NURSE MAY PERFORM BLOOD GLUCOSE TEST ORDERED 4 X DAILY. SKILLED NURSE TO REPORT TO PHYSICIAN BLOOD GLUCOSE READINGS GREATER THAN 350 OR LESS THAN 70 SKILLED NURSE TO INSTRUCT PATIENT ON IMPORTANCE OF HGBA1C MONITORING, KIDNEY FUNCTION TEST, EYE AND FOOT EXAMS. [code = DIABETES MANAGEMENT; SKILLED NURSE FOR INSTRUCTIONS OF DIABETIC CARE TO INCLUDE: DIET CONSISTENT CARBS, DIABETIC SKIN CARE, SIGNS AND SYMPTOMS OF HYPO/HYPERGLYCEMIA, PROPER ADMINISTRATION OF DIABETIC MEDICATION. SKILLED NURSE TO INSTRUCT ON DIABETIC FOOT CARE AND MONITOR FOR SKIN LESIONS ON LOWER EXTREMITIES. BLOOD GLUCOSE TESTING 4X DAY SKILLED NURSE TO ASSESS PATIENT/CAREGIVER ABILITY TO PERFORM AND RECORD BLOOD GLUCOSE TESTING ORDERED AND TO REPORT ABNORMAL FINDINGS TO PHYSICIAN. SKILLED NURSE MAY PERFORM BLOOD GLUCOSE TEST ORDERED 4 X DAILY. SKILLED NURSE TO REPORT TO PHYSICIAN BLOOD GLUCOSE READINGS GREATER THAN 350 OR LESS THAN 70 SKILLED NURSE TO INSTRUCT PATIENT ON IMPORTANCE OF HGBA1C MONITORING, KIDNEY FUNCTION TEST, EYE AND FOOT EXAMS.] Future Scheduled Test SKILLED NU RSE TO ASSESS, EVALUATE, AND DEVELOP AN INDIVIDUALIZED PLAN OF CARE. AGENCY MAY ACCEPT ORDERS FROM CONSULTING PHYSICIANS SN TO OBSERVE/ASSESS RISK FOR FALLS AND INSTRUCT IN FALL PREVENTION, HOME SAFETY, MEDICATION MANAGEMENT, INFECTION PREVENTION, AND NUTRITION MANAGEMENT. SN MAY PERFORM O2 SATURATION LEVEL ON ADMISSION AND PRN TO ASSESS PATIENT, WITH NOTIFICATION TO THE PHYSICIAN IF SATURATION IS 90% IN THE ABSENCE OF MORE SPECIFIC PARAMETERS FROM THE PHYSICIAN. AGENCY MAY PERFORM A RESUMPTION OF CARE VISIT FOLLOWING ANY HOSPITAL ADMISSION. SKILLED NURSE TO ASSESS/EVALUATE CO-MORBID CONDITIONS AND ANY NEW CONDITIONS THAT PRESENT THEMSELVES DURING THIS EPISODE TO IDENTIFY CHANGES AND INTERVENE TO MINIMIZE COMPLICATIONS. [code = SKILLED NURSE TO ASSESS, EVALUATE, AND DEVELOP AN INDIVIDUALIZED PLAN OF CARE. AGENCY MAY ACCEPT ORDERS FROM CONSULTING PHYSICIANS SN TO OBSERVE/ASSESS RISK FOR FALLS AND INSTRUCT IN FALL PREVENTION, HOME SAFETY, MEDICATION MANAGEMENT, INFECTION PREVENTION, AND NUTRITION MANAGEMENT. SN MAY PERFORM O2 SATURATION LEVEL ON ADMISSION AND PRN TO ASSESS PATIENT, WITH NOTIFICATION TO THE PHYSICIAN IF SATURATION IS 90% IN THE ABSENCE OF MORE SPECIFIC PARAMETERS FROM THE PHYSICIAN. AGENCY MAY PERFORM A RESUMPTION OF CARE VISIT FOLLOWING ANY HOSPITAL ADMISSION. SKILLED NURSE TO ASSESS/EVALUATE CO-MORBID CONDITIONS AND ANY NEW CONDITIONS THAT PRESENT THEMSELVES DURING THIS EPISODE TO IDENTIFY CHANGES AND INTERVENE TO MINIMIZE COMPLICATIONS.] Future Scheduled Test PAIN MANAG EMENT; SKILLED NURSE TO OBSERVE, ASSESS, AND PROVIDE EDUCATION ON PAIN MANAGEMENT TECHNIQUES. [code = PAIN MANAGEMENT; SKILLED NURSE TO OBSERVE, ASSESS, AND PROVIDE EDUCATION ON PAIN MANAGEMENT TECHNIQUES.] Future Scheduled Test RISK FOR H OSPITALIZATION; SKILLED NURSE TO INSTRUCT PATIENT/CAREGIVER ON RISK FOR HOSPITALIZATION, TEACH SIGNS AND SYMPTOMS THAT PUT PATIENT AT RISK, WHEN TO NOTIFY NURSE OF COMPLICATIONS/DECLINE, AND WHEN TO CALL 911. SKILLED NURSE TO INSTRUCT PATIENT/CAREGIVER ON: SIGNS AND SYMPTOMS TO BE ON ALERT FOR EARLY INTERVENTION, PRIOR TO NEEDING EMERGENCY SERVICES CALL [facility] NURSE TO KEEP [facility] SYMPTOM REPORT FOR VISIBLE REFERENCE NOTIFY SKILLED NURSE/PHYSICIAN FOR DECLINE IN STATUS WHEN AND HOW TO CALL HOME HEALTH AGENCY FACILITATE PHYSICIAN FOLLOW UP APPOINTMENT IDENTIFY SOCIOECONOMIC CONCERNS AND MAKE APPROPRIATE REFERRAL NEEDED [code = RISK FOR HOSPITALIZATION; SKILLED NURSE TO INSTRUCT PATIENT/CAREGIVER ON RISK FOR HOSPITALIZATION, TEACH SIGNS AND SYMPTOMS THAT PUT PATIENT AT RISK, WHEN TO NOTIFY NURSE OF COMPLICATIONS/DECLINE, AND WHEN TO CALL 911. SKILLED NURSE TO INSTRUCT PATIENT/CAREGIVER ON: SIGNS AND SYMPTOMS TO BE ON ALERT FOR EARLY INTERVENTION, PRIOR TO NEEDING EMERGENCY SERVICES CALL [facility] NURSE TO KEEP [facility] SYMPTOM REPORT FOR VISIBLE REFERENCE NOTIFY SKILLED NURSE/PHYSICIAN FOR DECLINE IN STATUS WHEN AND HOW TO CALL HOME HEALTH AGENCY FACILITATE PHYSICIAN FOLLOW UP APPOINTMENT IDENTIFY SOCIOECONOMIC CONCERNS AND MAKE APPROPRIATE REFERRAL NEEDED] Future Scheduled Test CARDIOVASC ULAR SYSTEM; SKILLED NURSE TO ASSESS AND TEACH RELATED TO ALTERED CARDIOVASCULAR STATUS TO MINIMIZE COMPLICATIONS AND REDUCE HOSPITALIZATION. [code = CARDIOVASCULAR SYSTEM; SKILLED NURSE TO ASSESS AND TEACH RELATED TO ALTERED CARDIOVASCULAR STATUS TO MINIMIZE COMPLICATIONS AND REDUCE HOSPITALIZATION.] Future Scheduled Test HYPERTENSI ON MANAGEMENT; SKILLED NURSE TO ASSESS/TEACH WARNING SIGNS AND SYMPTOMS TO AVOID HOSPITALIZATION. [code = HYPERTENSION MANAGEMENT; SKILLED NURSE TO ASSESS/TEACH WARNING SIGNS AND SYMPTOMS TO AVOID HOSPITALIZATION.] Future Scheduled Test AGENCY MAY PERFORM A RESUMPTION OF CARE VISIT FOLLOWING ANY HOSPITAL ADMISSION. PHYSICAL THERAPY TO EVALUATE, ASSESS AND MONITOR, PROVIDE SKILLED THERAPEUTIC INTERVENTION, ACTIVITY, EDUCATION, AND TRAINING TO ADDRESS: TRANSFER TRAINING (PT) GAIT TRAINING (PT) NEUROMUSCULAR RE-EDUCATION / BALANCE RETRAINING (PT) THERAPEUTIC EXERCISES (PT) STAIR TRAINING (PT) OXYGEN SATURATION (PT). NOTIFY MD IF 02SATS BELOW 90% AFTER 10 MIN OF REST. PAIN MANAGEMENT (PT) IDENTIFY FALL RISK FACTORS AND ESTABLISH HOME EXERCISE PROGRAM TO MINIMIZE FALL RISK. MAY TEACH THE PATIENT FLOOR RECOVERY WHEN CLINICALLY APPROPRIATE (PT) [code = AGENCY MAY PERFORM A RESUMPTION OF CARE VISIT FOLLOWING ANY HOSPITAL ADMISSION. PHYSICAL THERAPY TO EVALUATE, ASSESS AND MONITOR, PROVIDE SKILLED THERAPEUTIC INTERVENTION, ACTIVITY, EDUCATION, AND TRAINING TO ADDRESS: TRANSFER TRAINING (PT) GAIT TRAINING (PT) NEUROMUSCULAR RE-EDUCATION / BALANCE RETRAINING (PT) THERAPEUTIC EXERCISES (PT) STAIR TRAINING (PT) OXYGEN SATURATION (PT). NOTIFY MD IF 02SATS BELOW 90% AFTER 10 MIN OF REST. PAIN MANAGEMENT (PT) IDENTIFY FALL RISK FACTORS AND ESTABLISH HOME EXERCISE PROGRAM TO MINIMIZE FALL RISK. MAY TEACH THE PATIENT FLOOR RECOVERY WHEN CLINICALLY APPROPRIATE (PT)] Future Scheduled Test OCCUPATION AL THERAPY EVALUATION PERFORMED. NO ADDITIONAL VISITS REQUIRED. PROVIDED SKILLED INTERVENTION INCLUDING EDUCATION REGARDING ENERGY CONSERVATION TECHNIQUES, FALL PREVENTION STRATEGIES, AND CALL US FIRST PROCEDURES. PROVIDED SHOWER TRANSFER TRAINING. [code = OCCUPATIONAL THERAPY EVALUATION PERFORMED. NO ADDITIONAL VISITS REQUIRED. PROVIDED SKILLED INTERVENTION INCLUDING EDUCATION REGARDING ENERGY CONSERVATION TECHNIQUES, FALL PREVENTION STRATEGIES, AND CALL US FIRST PROCEDURES. PROVIDED SHOWER TRANSFER TRAINING. ] Goal 2022-03-03 Patient Goal - I WANT TO GET RID OF THIS PAIN Goal Provider Goal - Goal Provider Goal - Goal Provider Goal - PATIENT/CAREGIVER TO VERBALIZE, AND CONSISTENTLY DEMONSTRATE EFFECTIVE, SAFE MANAGEMENT OF MEDICATION INCLUDING KNOWLEDGE OF EFFECTIVENESS, POTENTIAL SIDE EFFECTS AND DRUG REACTIONS AND WHEN TO CONTACT THE APPROPRIATE CARE PROVIDER. PATIENT/CAREGIVER WILL BE ABLE TO VERBALIZE UNDERSTANDING OF MEDICATION REGIMEN AND ACCURATELY TAKE MEDICATIONS PRESCRIBED WITHOUT ADVERSE EFFECTS Goal Provider Goal - PATIENT/CAREGIVER ABLE TO IDENTIFY FALL RISK FACTORS AND IMPLEMENT STRATEGIES TO MINIMIZE FALL RISK. PATIENT/CAREGIVER WILL VERBALIZE/DEMONSTRATE AN ABILITY TO ADHERE TO FALL REDUCTION SELF MANAGEMENT AND LIFE-STYLE CHANGES AT DISCHARGE. PERSONAL GOAL(S) STATED BY PATIENT/CAREGIVER WILL BE MET BY EOE. Goal Provider Goal - PATIENT / CAREGIVER WILL VERBALIZE / DEMONSTRATE AN ABILITY TO ADHERE TO SELF-MANAGEMENT OF DIABETES MANAGEMENT BY EOE Goal Provider Goal - A PLAN OF CARE WILL BE ESTABLISHED THAT MEETS THE PATIENTS NEEDS. PATIENT WILL DEMONSTRATE OXYGEN SATURATION WITHIN NORMAL LIMITS OR PATIENTS OPTIMAL LEVEL ESTABLISHED BY THE PHYSICIAN THROUGHOUT CARE. CHANGES TO CO-MORBID CONDITIONS AND ANY NEW CONDITIONS WILL BE IDENTIFIED AND REPORTED TO THE PHYSICIAN. Goal Provider Goal - PATIENT / CAREGIVER WILL VERBALIZE / DEMONSTRATE UNDERSTANDING OF PAIN CONTROL MEASURES BY EOE Goal Provider Goal - PATIENT/CAREGIVER WILL VERBALIZE UNDERSTANDING OF SIGNS AND SYMPTOMS THAT PUT THE PATIENT AT RISK FOR HOSPITALIZATION, WHEN TO NOTIFY SN OF COMPLICATIONS/DECLINE AND WHEN TO CALL 911. Goal Provider Goal - PATIENT / CAREGIVER WILL VERBALIZE/DEMONSTRATE UNDERSTANDING OF MEASURES TO MANAGE ALTERED CARDIOVASCULAR STATUS BY EOE Goal Provider Goal - PATIENT / CAREGIVER WILL VERBALIZE/DEMONSTRATE AN ABILITY TO ADHERE TO SELF-MANAGEMENT OF HTN TO MINIMIZE COMPLICATIONS AND AVOID HOSPITALIZATION BY END OF EPISODE. Goal Provider Goal - PT STG: PATIENT WILL DEMONSTRATE INDEPENDENCE WITH ALL ASPECTS OF BED MOBILITY WITHIN 3 WEEKS PT STG: PATIENT WILL DEMONSTRATE IMPROVED TRANSFERS FROM SBA TO INDEPENDENT WITH UE ASSIST WITHIN 4 WEEKS PT STG: PATIENT WILL DEMONSTRATE PROPER POSITIONING WITHIN ROLLATOR BASE, ADEQUATE STEP LENGTH, FOOT CLEARANCE AND CONSISTENT HEEL STRIKE BILATERALLY TO IMPROVE GAIT PATTERN WITHIN 4 WEEKS PT LTG: PATIENT WILL DEMONSTRATE IMPROVED AMBULATION FROM CGA TO INDEPENDENT WITH ROLLATOR WITHIN 9 WEEKS PT STG: PATIENT WILL DEMONSTRATE IMPROVING FALL RISK EVIDENCED BY A 6 SECOND DECREASE IN TUG TEST TIME WITHIN 4 WEEKS PT LTG: PATIENT WILL DEMONSTRATE REDUCED FALL RISK EVIDENCED BY TUG TEST (CUT SCORE >11 SECONDS INDICATES INCREASED FALL RISK) IMPROVING FROM 31 SECONDS TO 20 SECONDS WITHIN 9 WEEKS PT STG: PATIENT WILL DEMONSTRATE INDEPENDENCE WITH LOWER EXTREMITY, CORE AND VESTIBULAR HOME EXERCISE PROGRAM WITHIN 5 WEEKS PT LTG: PATIENT WILL DEMONSTRATE INCREASED STRENGTH OF BILATERAL LES FROM 3+/5 TO 4/5 WITHIN 9 WEEKS IN ORDER TO IMPROVE SAFETY AND STABILITY WITH GAIT AND STAIRS PT STG: PATIENT WILL DEMONSTRATE PROPER PACING AND SEQUENCING WITH STAIR MOBILITY WITHIN 4 WEEKS PT LTG: PATIENT WILL DEMONSTRATE IMPROVED ABILITY TO SAFELY NEGOTIATE STAIRS FROM MIN ASSIST TO INDEPENDENT WITH RAIL WITHIN 9 WEEKS PATIENT WILL MAINTAIN OXYGEN SATURATION WITHIN PHYSICIAN ORDERED PARAMETERS THROUGHOUT EPISODE OF CARE PT GOAL: PATIENT/CAREGIVER WILL VERBALIZE UNDERSTANDING OF PAIN MANAGEMENT BY DISCHARGE. PATIENT/CAREGIVER WILL DEMONSTRATE ADHERENCE TO FALL REDUCTION SELF MANAGEMENT TO MINIMIZE FALL RISK BY DISCHARGE. Goal Provider Goal - Reason for Visit INDEPENDENT WITH USE OF ASSISTIVE DEVICE Encounters Start Date/Time End Date/Time Encounter Type Admission Type Attending [facility] Care Facility Care Department Encounter ID Discharge Date Discharge Status Discharge Condition Discharge Reason Percent Goals Met 2022-01-07 00:00:00 2022-03-03 00:00:00 Outpatient NEW ADMISSION [facility] [id number] 2022-03-03 00:00:00 DISCHARGE TO HOME OR SELF CARE INDEPENDEN T WITH USE OF ASSISTIVE DEVICE HH OR [facility]- GOALS MET 66.67
--- OUTSIDE RECORDS SUMMARY | 2024-03-05 14:43 | XMS_ITS | Patient Health Record ---
Author Organization [facility] Address [address] [place] [address] Care Team Providers Care Ceo Na Name Role Phone Bonnie DUVALL, Patricia Primary Care Provider Chaz Dunaway Unavailable [phone] ALLERGIES Allergen (clinical drug ingredient) Drug/Non Drug Allergy documented on EMR Reaction Allergy Type Onset Date Status acetaminophen / oxycodone Percocet Unknown Drug Allergy Active lisinopril Lisinopril Unknown Drug Allergy Activ e meperidine Demerol Unknown Drug Allergy Active Substance with 4-falehbf-7-methylglutar yl-coenzyme A reductase inhibitor mechanism of action (substance) statin drugs (uncoded) Unknown Allergy Active Latex latex (uncoded) Unknown Allergy Acti ve Tambocor Unknown Drug Allergy Active REASON FOR REFERRAL No Information MEDICATIONS Medication SIG (Take, Route, Frequency, Duration) Notes Start Date End Date Status Losartan Potassium 50 MG 1 tablet Orally Once a day for 30 day(s) 04/13/2022 Active Eliquis 5 MG 1 tablet Orally Twice a day Active amLODIPine Besylate 5 MG 1 tablet Orally Once a day Active Famotidine 40 MG TAKE 1 TABLET BY MOUTH EVERY DAY AT BEDTIME for 30 Active Lantus 100 UNIT/ML Subcutaneous Active Gabapentin 100 MG Oral for 30 E1141,Unavai lable Active metFORMIN HCl 1000 MG 1 tablet with meal s Orally Twice a day Active Spironolactone 25 MG Oral for 30 I509,Unavai l able Active Stool Softener & Laxative Active Metoprolol Succinate ER 25 MG 1 tablet Orally Once a day Active Pantoprazole Sodium 40 MG Oral for 30 K219,U navail able Active Citracal +D3 Active Ferrocite 324 MG 1 tablet Orally 1 po qd Active Melatonin Active HumaLOG KwikPen 200 UNIT/ML Subcutaneous for 103 Active Allergy Active Rosuvastatin Calcium 5 MG TAKE 1 TABLET BY MOUTH 3 TIMES A WEEK Oral for 90 Active Stool Softener 100 MG 1 capsule as neede d Orally Once a day for 30 day(s) Active PreserVision AREDS - as directed Orally 04/13/2022 Active Vitamin B12 1000 MCG 1 tablet Orally Once a day for 30 day(s) 04/13/2022 Active Magnesium 250 MG 1 tablet with a meal Orally Twice a day 04/13/2022 Active CoQ-10 100 MG as directed Orally 04/13/2022 Active hydroCHLOROthiazide 25 MG Oral for 90 Active IMMUNIZATIONS Vaccine Route Administration Date Status Comme nts Flu vaccine no Preserv 3 and > Unknown 11/25/2013 Admin istered Influenza Unknown 02/28/2023 Administered Influenza Unknown 01/31/2022 Refused SOCIAL HISTORY Sex Assigned At : Social History Observation Description Sex Assigned At Unknown PROBLEMS Problem Type ICD Code Onset Dates Problem Status W/U Status Risk SNOMED Code Notes Problem Polyp of stomach and duodenum (K31.7) Active confirmed Benign neoplasm of stomach (22611117) Problem Calculus of gallbladder without cholecystitis without obstruction (K80.20) Active confirmed 32779234 Problem Abdominal pain, epigastric (R10.13) Active confirmed 17380249 Problem Gastric polyps (K31.7) Active confirmed 64717496 Problem Gallstones (K80.20) Active confirmed Gallstones (772799378) Problem Gastritis (K29.70) Active confirmed Gastritis (5996162) Problem 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 492453212 Problem Upper abdominal pain (R10.10) Active confirmed Upper abdominal pain (87980264) Problem Chronic gastritis without bleeding, unspecified gastritis type (K29.50) Active confirmed 5553209 Problem Abdominal fullness (R19.8) Active confirmed Epigastric fullness (6779786) VITAL SIGNS Temperature 97.7 degrees Fahrenheit 03/07/2023 Blood pressure diastolic 00 mm Hg 03/07/2023 Height 64 in 03/07/2023 Blood pressure systolic 000 mm Hg 03/07/2023 Weight 159 lb 1 oz lbs 03/07/2023 BMI 27.30 kg/m2 03/07/2023 Encounters Encounter Location Date Provider Diagnosis [facility] [address] [place] [address] 03/07/2023 Chaz Mendez Ampullary adenoma D13.5 [facility] [address] [place] [address] 09/05/2023 Chaz Mendez [facility] [address] [place] [address] 09/05/2023 Chaz Mendez ASSESSMENTS Encounter Date Diagnosis Assessment Notes Treatment Notes Treatment Clinical Notes 03/07/2023 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 Wadsworth. Keep me posted with the results after you have it done. PLAN OF TREATMENT Pending Test Test Name Order Date NUC HIDA SCAN 04/13/2022 Future Test Test Name Order Date COLONOSCOPY 06/12/2014 UPPER GI ENDOSCOPY 04/13/2022 Insurance Providers Payer Name Payer Address Payer Phone Subscriber Number Group Number Insured Name Patient Relationship to Insured Coverage Start Date Coverage End Date MEDICARE OF [place] [address] [place] [phone] [id number] JIMI RAMOS Self - patient is the insured [employer] [address] [place] [address] [phone] [id number] DERRICK Nice JIMI Self - patient is the insured MEDICAL (GENERAL) HISTORY Medical History History ICD Code Colonoscopy 07-13-2003---neg. 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 pylori Ampullary adenoma incidental ly found during her upper endoscopy in April of 2022. She has had no signs of jaundice nor biliary obstruction including a completely normal liver profile in August of 2022. The adenomatous tissue did not seem to be involving the ampullary orifice. She underwent upper endoscopy with Dr. Wadsworth at [facility] with removal of the adenomatous tissue in 10/2022 and is scheduled for a followup upper endoscopy in April of 2023 to reinspect the polypectomy sites. CHF 12/2022 at [facility]--she required intubation. She had to be Med[facility]ed from [facility] to [facility] at the time. Surgical History Surgery Date(Month/Year) Partial right lung resection by Dr. Maynard for a carcinoid tumor Right knee replacement 09/01/2013 Parathyroidectomy Disc surgery-lower back Deviated septum repair [facility] Hospitalization History Reason Date(Month/Year)
--- NOTE | 2024-03-05 14:45 | A.OFFVIS_ITS ---
Vital Signs 03/05/24 14:49 Height 5 ft 4 in Weight 148 lb BMI 25.4 BP 140/65 H Blood Pressure Location Lt brachial Position Sitting Respiration 16 Pulse 94 Pulse Source Pulse Oximeter Pulse Oximetry (%) 93 Oxygen Delivery Method Room Air Intake Visit Reasons: discuss ct scan Allergies latex [Latex] Allergy (Severe, Verified 03/05/24 14:50) RASH cephalexin [CEPHALEXIN] Allergy (Intermediate, Verified 03/05/24 14:50) SWELLING adhesive tape [Adhesive Tape] Allergy (Mild, Verified 03/05/24 14:50) CONTACT DERMATITIS empagliflozin [From Jardiance] Adverse Reaction (Severe, Verified 03/05/24 14:50) Dizziness flecainide [From Tambocor] Adverse Reaction (Severe, Verified 03/05/24 14:50) HEART RACING Biaxin Adverse Reaction (Intermediate, Verified 03/05/24 14:50) plapitations lisinopril [LISINOPRIL] Adverse Reaction (Intermediate, Verified 03/05/24 14:50) cough, nausea bacitracin [From Cortisporin] Adverse Reaction (Mild, Verified 03/05/24 14:50) EYE IRRITATION hydrocortisone [From Cortisporin] Adverse Reaction (Mild, Verified 03/05/24 14:50) EYE IRRITATION neomycin [From Cortisporin] Adverse Reaction (Mild, Verified 03/05/24 14:50) EYE IRRITATION nitrofurantoin Adverse Reaction (Verified 03/05/24 14:50) Loss of Appetite Medication List - Last Reconciled 03/05/24 by Cecelia Terry LPN acetaminophen 500 mg PO Q4H PRN apixaban (Eliquis) 5 mg PO BID coenzyme Q10 (CoQ-10) 100 mg PO DAILY docusate sodium (Colace) 200 mg PO .bedtime furosemide (Lasix) 40 mg PO DAILY gabapentin 100 mg PO BEDTIME insulin glargine (Lantus Solostar U-100 Insulin) 10 units subcut BEDTIME insulin lispro (Humalog KwikPen U-200 Insulin) 2 - 12 units subcut USEASDIRECTD loratadine (Wal-itin) 10 mg PO DAILY losartan 50 mg PO DAILY metformin 1,000 mg PO BID 3 months metoprolol succinate ER 25 mg PO DAILY Movantik (naloxegol) 12.5 mg PO QAM NS pantoprazole 40 mg PO Q12H pen needle, diabetic (BD Ultra-Fine Mini Pen Needle) As directed QID ac and hs rosuvastatin 5 mg PO MOWEFR 90 days spironolactone 25 mg PO DAILY sucralfate (Carafate) 5 mL PO TID 30 days tramadol 50 mg PO Q6H PRN vit C,R-En-pgkcm-lutein-zeaxan 250-90-40-1 mg (PreserVision AREDS-2) 1 tab PO BID HPI Comments Details: Aminah is back in my office for the follow-up and discussion of the results of the CT scan which was performed on my order. There are very good news for the patient: There is no significant spinal canal stenosis secondary to retropulsion of the vertebral body segments. There is mild spinal canal stenosis however there is no nerve root compressions and there is no compression of the thoracic spinal cord. Prolonged and detailed conversation ensued about what to do about the pain of this patient. She reports that shock-like electric-like pain radiating from the back to the upper abdomen significantly improved and she does not experience this pain anymore. However axial back pain is bothering her. She also has significant bilateral lower extremity pain secondary to peripheral neuropathy in terms of pins needles and burning sensation. She is being prescribed tramadol by primary care physician and tramadol is helping her to tolerate pain better. She also was prescribed Movantik for opioid induced constipation however she never tried Movantik she uses infrequently stool softener and strong laxatives OTC. The patient was asking whether or not I can help her condition. I explained to her that it depends on how aggressive she wants me to be. I explained to her spinal cord stimulator Nevro to alleviate her axial back pain and possibly pain in bilateral lower extremities. For the situation I need to stagger to electrodes much wider in her thoracic spine and have her to wear it for the 5 days trial. I also explained to her psychological evaluation. Her daughter has computer at home and she may be able to perform [employer] psychological evaluation if they are desire is to go for Nevro trial. She has multiple medical problems including history of congestive heart failure history of atrial fibrillation presence of the pacemaker and she would need to go for PAT if she will choose to go for psychological evaluation. very pleasant 83 years old female who presents today in my office with complains on the pain in the right-sided thoracic spine with radiation of the pain to the right flank and anterior right chest. She reported that her pain started on 11/27/2023. She complained on pain starting on her when she woke up 1 morning and tried to stretch herself. Her pain was severe and she was sent for CT scan of the thoracic spine in the eventually for the MRI of the thoracic spine which demonstrated multiple compression fractures in the thoracic spine. She had kyphoplasty performed on 01/17/[address] Juarez. The kyphoplasty was done on T6 vertebra, the T8 vertebra was left intact. The patient continued to complain on pain in the thoracic spine and she was sent to pain management to help with her pain. She reports stabbing and electrical shock-like pain in the area described above. She reports that she can not sleep normally can not do activities of daily living can not take care of herself can not function normally. She is retired individual. She needs walker for ambulation. Movements aggravate her pain. Tramadol prescribed by primary care physician make her pain slightly better. In terms of tissue damage he reports her pain is jumping, flushing, shooting, stabbing, lancinating, sharp, lacerating, sickening, spreading, radiating, piercing. She reported that she was implanted with pacemaker on 10/17/2023 but this pacemaker is compatible with MRI. Her past medical history is significant for history of atrial fibrillation, hypertension, dizziness and fainting, history of kidney stones, history of kidney disease however her creatinine is normal, history of gallstones history of GERD and history of arthritis. She had an MRI performed on 12/07/2023 in [facility]. She never had physical therapy or chiropractic manipulations they are not indicated for this severe condition. She never had any injections. History of kyphoplasty 01/17/2024. [facility] Medical History Hiatal hernia Gastritis Opioid-induced constipation Degenerative disc disease, thoracic Degenerative disc disease, lumbar [place] (hard of hearing) Wears hearing aid in both ears Uses walker Hx of cardiac pacemaker (10/06/23) Age-related osteoporosis with current pathological fracture, vertebra(e), initial encounter for fracture Compression fracture of lumbar spine, non-traumatic Nontraumatic compression fracture of thoracic vertebra Anemia Moderate aortic stenosis Diabetes mellitus Congestive heart failure Urinary tract infection Hypertension Paroxysmal atrial fibrillation Cholelithiasis Renal cyst Nephrolithiasis Pulmonary hypertension Non-rheumatic mitral regurgitation Permanent atrial fibrillation Right nephrolithiasis Compression deformity of vertebra Microcytic anemia Heartburn Atrophic vaginitis Osteopenia Osteoarthritis of knees, bilateral Essential hypertension Dyslipidemia Type 2 diabetes mellitus with diabetic neuropathy, with long-term current use of insulin Surgical History History of cardiac radiofrequency ablation (RFA) Hx of cardiac catheterization History of esophagogastroduodenoscopy (EGD) (~10/2022) History of lumbar discectomy History of lobectomy of lung History of hysterectomy History of total right knee replacement (TKR) Lumbar radiculopathy Family History Father Diabetes mellitus Mother Diabetes mellitus Myocardial infarction Sister Cancer Sister No problems noted. Son No problems noted. Daughter No problems noted. Social History Household Members: None Housing: House Are you a primary primary health care nurse to a significant other at home: No Do you presently have visiting nurse or other home services: No (supportive family) Unable to assess alcohol history related to: Unable to respond Alcohol intake: never Patient Tobacco Use Status: Former Tobacco user Tobacco use type: Cigarette e-Cigarette/Vaping Use: Never Used Advance Directives Date on File: 06/20/23 service: No Current occupational status: retired Cognitive needs: No Hearing needs: Yes Vision needs: Yes Review of Systems Const All systems reviewed & are unremarkable except as noted in HPI and below ENT Reports Normal hearing present Neuro Reports Normal hearing present, Denies Abnormal speech present, Denies confusion and Denies Sensory deficit (Neuro) Psych Denies confusion Physical Exam Vital Signs: Last Vital Signs Pulse 94 03/05/24 14:49 Resp 16 03/05/24 14:49 BP 140/65 H 03/05/24 14:49 Pulse Ox 93 03/05/24 14:49 Oxygen Delivery Method Room Air 03/05/24 14:49 BMI result Body Mass Index 25.4 Const General: no acute distress; No confusion Orientation/consciousness: patient oriented x3 and No confusion Eyes General: appearance normal, both eyes and all related structures Pupils: Equal, round and reactive pupils present EOM: EOMs intact bilaterally Neck Neck: Yes full ROM Chest Chest palpation & inspection: normal inspection of the chest Resp Effort & Inspection: normal respiratory effort, able to speak in complete sentences, normal respiratory pattern, no audible wheezes and no cough Cardio Jugular venous distension: no JVD GI Inspection: Yes normal to inspection Back/Spine/Pelvis Other: Tenderness on palpation in thoracic spine entire length more on the right and less on the left. Reports weakness in bilateral lower extremities. Reports numbness in bilateral lower extremities. Reports incontinence with urine. Reports severe constipation probably secondary to opioid medications. Neuro General: patient oriented x3, gait normal and No confusion Cranial nerves: Yes CN's II-XII intact bilaterally, Yes Equal, round and reactive pupils present, Yes Normal hearing present and Yes Ability to bilaterally elevate shoulders present Speech: No Abnormal speech present Gait exam (Neuro): Normal gait present Motor exam (neuro): 5/5 motor strength present throughout Sensory Exam: No Sensory deficit (Neuro) Extrem General: No pedal edema Psych Speech and movement: Normal speech and movement present Affect: normal affect Attitude: cooperative Thought process: Normal thought process present Thought content: Normal thought content present Insight: Good insight present (Psych) Judgement: Good judgement present (Psych) Results Reviewed Results Reviewed: CT THORACIC SPINE CLINICAL INFORMATION: Postprocedural pain COMPARISON: MRI thoracic spine on 12/27/2023 TECHNIQUE: Multidetector CT acquisitions of the thoracic spine before and after administration of 85 mL Omnipaque [address] examination was performed using dose optimization techniques as appropriate, variously including the following: *Automated exposure control *Adjustment of mA and/or kV according to patient size (this includes techniques or standardized protocols for targeted exams where dose is matched to indication/reason for exam; i.e. extremities or head) *Use of iterative reconstruction technique DLP: 990 mGy-cm FINDINGS: Exaggeration of the normal thoracic kyphosis. No listhesis. Sequela of kyphoplasty at T6. Images terminate compression fractures of T7 and L1 with less than 20% vertebral body height loss and no retropulsion. These findings are however new when compared to MRI on 12/27/2023. Chronic compression fracture deformities of T8, T11, and T12, not significantly progressed from prior (accounting for differences in modalities). There is persistent 3 mm retropulsion of T8 resulting in mild spinal canal stenosis at T8-9. The remaining vertebral body heights are preserved. Multilevel endplate osteophytosis. The paravertebral soft tissues are unremarkable. The imaged lungs are clear. IMPRESSION: -Age-indeterminate however likely acute to subacute compression fractures of T7 and L1 with less than 20% vertebral body height loss and no retropulsion. -Chronic compression fracture deformities of T8, T11, and T12, not significantly progressed from prior (accounting for differences in modalities). Persistent 3 mm retropulsion of T8 resulting in mild spinal canal stenosis at T8-9. -Sequelae of T6 kyphoplasty. Assessment & Plan Assessment & Plan (1) H/O kyphoplasty: Code(s): Z98.890 - Other specified postprocedural states Category: Surgical (2) Degenerative disc disease, thoracic: Code(s): M51.34 - Other intervertebral disc degeneration, thoracic region Category: Medical (3) Compression fracture of thoracic vertebra: Code(s): S22.000A - Wedge compression fracture of unspecified thoracic vertebra, initial encounter for closed fracture Category: Medical (4) Dorsalgia of thoracic region: Code(s): M54.6 - Pain in thoracic spine Category: Medical (5) Radiculopathy, thoracic region: Code(s): M54.14 - Radiculopathy, thoracic region Category: Medical Plan The CT scan did not demonstrate significant spinal canal stenosis or foraminal stenosis in the thoracic spine. The patient is feeling better in terms of shock-like sensation and electric-like pain going from the thoracic spine to the abdomen. Therefore her main complaint today is pain in the thoracic spine. She also suffers from constipation which could be opioid induced constipation. She was prescribed Movantik however she is hesitant to take it. I recommended her to try at least for few days to take Movantik she may feel better with her constipation. She is asking me if it is at all possible to perform any proce dures to help her pain. I told her that Nevro spinal cord stimulator with wide staggering electrodes could help her pain in the thoracic spine as well as pain in bilateral lower extremities due to neuropathy. However she is 83 years old and she would need to go for PAT before anesthesia for this procedure. I explained to them if anesthesia we will find the procedure impossible to perform it is unlikely that I will be able to perform the trial or implantation. Also I would need her to go through psychological evaluation if they decide to deal with her pain with the spinal cord stimulator. Patient Instructions: I here by testify that I spent 45 minutes in conversation with this patient as well as planning her care organizing this note. Coding Level of Care Code Est Pt Level 5 (90501) Diagnoses H/O kyphoplasty Z98.890 Degenerative disc disease, thoracic M51.34 Compression fracture of thoracic vertebra S22.000A Dorsalgia of thoracic region M54.6 Radiculopathy, thoracic region M54.14
[2024-03-05 14:49] VITALS: BP 140/65; PULSE 94; RESP 16; O2SAT 93; BMI 25.4
== END 2024-03-05 15:33 | disposition home or self-care (01) ==
PROVIDERS: PCP Internal Medicine; Visit Provider Anesthesiology
DX: M51.34 Other intervertebral disc degeneration, thoracic region (principal); M54.14 Radiculopathy, thoracic region; Z98.890 Other specified postprocedural states
CPT/HCPCS: 99215

== ENCOUNTER → 2024-03-05 14:40 | Outpatient (BNVA) | payer MEDICARE, SELFPAY | PROVIDERS: PCP Internal Medicine; Visit Provider Anesthesiology | DX: M51.34 Other intervertebral disc degeneration, thoracic region (principal); M54.6 Pain in thoracic spine; M54.14 Radiculopathy, thoracic region; S22.000D Wedge compression fracture of unspecified thoracic vertebra, subsequent encounter for fracture with routine healing; Z98.890 Other specified postprocedural states | CPT/HCPCS: 99212 ==

== ENCOUNTER 2024-03-26 14:40 | Outpatient (REF) | payer MEDICARE, SELFPAY ==
--- OUTSIDE RECORDS SUMMARY | 2024-03-26 14:44 | XMS_ITS ---
Author Organization [facility] Address [address] [place] [address] Care Team Providers Care Head Coach Name Role Phone Bonnie DUVALL, Patricia De La Garza Primary Care Provider Un available Estuardo Mccarthy Unavailable [phone] REASON FOR VISIT Reschedule Encounters Encounter Location Date Provider Diagnosis [facility] [address] [place] [address] 03/21/2024 Estuardo Mccarthy Plan Of Treatment Next Appt Details Provider Name:Estuardo Mccarthy , 03/31/2024 03:45:00 PM, [address] [facility], [place] [address], [place], [address], Progress Notes * Aminah KRAFT PDOB:[birth year] (83 yo F)Acc No.[id number]:03/21/2024 Patient:?Aminah KRAFT :1940???Age:83 Y???Sex:Female Address:[address] [place] [address], [place], [address] * true * Date:? Generated for Printi martha/Juana/eTransmitting on:?03/26/2024 02:44 PM EST
--- OUTSIDE RECORDS SUMMARY | 2024-03-26 14:44 | XMS_ITS ---
Author Organization [facility] Address [address] [place] [address] Care Team Providers Care Crystalizer Name Role Phone Bonnie DUVALL, Patricia De La Garza Primary Care Provider Un available Estuardo Mccarthy Unavailable [phone] Allergies Allergen (clinical drug ingredient) Drug/Non Drug [...] an other tobacco user? No Vital Signs Blood pressure systolic 120 mm Hg 12/14/19 24 Blood pressure diastolic 60 mm Hg 024 Height 5 ft 4in in 12/14/2023 Weight 154 lbs 12/14/2023 BMI 26.43 kg/m2 12/14/2023 Procedures Procedure Date Ordered Date Performed Result Body Sit e 14325-LHWOLPR NAIL, 1-5 12/14/2023 N/A 36777-QUHP SKIN LESIONS, 2 TO 4 12/14/2023 N/A H1123-RGGJSHSO DYSTROPHIC NAILS ANY # 12/14/2023 N/A Encounters Encounter Location Date Provider Diagnosis [facility] [address] [place] [address] 12/14/2023 Estuardo Mccarthy Type 2 diabetes mellitus with diabetic polyneuropathy E11.42 and Tinea unguium B35.1 Assessments Encounter Date Diagnosis (ICD Code) Assessment Notes Treatment Notes Treatment Clinical Notes Section Notes 12/14/2023 Type 2 diabetes mellitus with diabetic polyneuropathy (ICD-10 - E11.42) 12/14/2023 Tinea unguium (ICD-10 - B35.1) Plan Of Treatment Pending Test Test Name Order Date 99743-NRHEWWX NAIL, 1-5 12/14/2023 30059-TNBB SKIN LESIONS, 2 TO 4 12/14/19 24 I4809-VQBVOGVZ DYSTROPHIC NAILS ANY # Next Appt Details Follow Up: prn, Reason: Provider Name:Estuardo Mccarthy , 03/31/2024 03:45:00 PM, [address], [address], [place], [address], Procedure Notes * Category Sub-Category Detail Notes Keratoma Treatment Parring or Cutting o f Benign Hyperkeratotic Lesion(s) (-56) 2-4 Lesions - The Benign hyperkeratotic lesions, as described above were pared, and/or cut utilizing a sterile 15 blade, tissue nippers, and/or dremel - 99854 Debride Nails 1-5 Procedure: Performance of this nail treatment by a nonprofessional would put this patients foot and overall health at risk. Therefore, nail debridement was performed extensively to reduce/remove overall nail length, girth, thickness, subungual debris, and necrotic tissue, by manual and/or electrical means through the use of a nail nipper and/or dremel-type lens shaper grinder, to a more viable healthy nail plate or bed tissue 1-5. Silver nitrate used for any petechial bleeding as necessary. Definitive antifungal treatment options have been reviewed and discussed with the patient. The patient chooses, no pharmaceutical tx - 39446 Nail Reduction Nail Reduction (-27) Trimming o f dystrophic nails performed to reduce/remove overall nail length and girth, by manual and electrical means with use of a nail nipper and/or dremel, to more viable healthy nail plate or bed tissue, any number - G0127 Progress Notes * Aminah KRAFT PDOB:[birth year] (83 yo F)Acc No.[id number]:12/14/2023 Progress Note Patient:?Aminah Kraft P Provider:?Estuardo Mccarthy DPM :1940???Age:83 Y???Sex:Female D ate:12/14/2023 Address:[address] [place] [address] [id number] Pcp:Amada Ferro Subjective: * Chief Complaints: * [...] Diagno stic Procedure:?urgent care -UTI given antiboitic [place] [place] compound [place] 5 days test done Rehab 2 weeks 12/12/21[facility] [place] 2022[facility] * Family History:?Mother: [...] use of a nail nipper and/or dremel-type lens shaper grinder, to a more viable healthy nail plate or bed tissue 1-5. Silver nitrate used for any petechial bleeding as necessary. Definitive antifungal treatment options have been reviewed and discussed with the patient. The patient chooses, no pharmaceutical tx - 97433.?Keratoma Treatment:?Parring or Cutting of Benign Hyperkeratotic Lesion(s)?(-56) 2-4 Lesions - The Benign hyperkeratotic lesions, as described above were pared, and/or cut utilizing a sterile 15 blade, tissue nippers, and/or dremel - 10579.?Nail Reduction:?Nail Reduction?(-27) Trimming of dystrophic nails performed to reduce/remove overall nail length and girth, by manual and electrical means with use of a nail nipper and/or dremel, to more viable healthy nail plate or bed tissue, any number - G0127.? * Procedure Codes:?G0127 LORENA ING DYSTROPHIC NAILS ANY #, Modifiers: XS 51061 DEBRIDE NAIL, 1-5, Modifiers: XS 28247 TRIM SKIN LESIONS, 2 TO 4, Modifiers: XS * Follow Up:?prn * Images: * Sign off status: Completed true * Provider:?Estuardo Mccarthy DPM Date:?2023 Generated for Douglas thomas/Juana/Eliransmitting on:?03/26/2024 02:44 PM EST History and Physical Notes * HPI (History of Present Illness) Category Sub-Category Detail Notes Category Not es At Risk footcare Pt States Last PCP Visit: Date: 4 Examination Category Sub-Category Detail Notes Category Not [...]
--- OUTSIDE RECORDS SUMMARY | 2024-03-26 14:44 | XMS_ITS | Patient Health Record ---
Author Organization [facility] Address [address] [place] [address] Care Team Providers Care Licensed Life And Health Agent Name Role Phone Bonnie DUVALL, Patricia De La Garza Primary Care Provider Un available Estuardo Mccarthy Unavailable [phone] Allergies Allergen (clinical drug ingredient) Drug/Non Drug [...] Problem Acquired hammer toe of right foot (0919879582419994 ) Other hammer toe(s) (acquired), right foot (M20.41) Active confirmed Response to treatment, Hiral porter Problem Acquired hammer toe of left foot (5256452453288875 ) Other hammer toe(s) (acquired), left foot (M20.42) Active confirmed Response to treatment, Improveanita t Problem Polyneuropathy due to type 2 diabetes mellitus (349036607) Type 2 diabetes mellitus with diabetic polyneuropathy (E11.42) Active confirmed Vital Signs Blood pressure diastolic 60 mm Hg 12/14/2023 Height 5 ft 4in in 12/14/2023 Blood pressure systolic 120 mm Hg 12/14/2023 Weight 154 lbs 12/14/2023 BMI 26.43 kg/m2 12/14/2023 Procedures Procedure Date Ordered Date Performed Result Body Sit e 46231-HOFAWIG NAIL, 1-5 06/08/2023 N/A 47398-OOXV SKIN LESIONS, 2 TO 4 06/08/2023 N/A C3850-QKEPLFPT DYSTROPHIC NAILS ANY # 06/08/2023 N/A 78260-BJAWDZD NAIL, 1-5 09/14/2023 N/A 63973-EUJO SKIN LESIONS, 2 TO 4 09/14/2023 N/A F1085-FVIRBILN DYSTROPHIC NAILS ANY # 09/14/2023 N/A 74390-RDWYQCZ NAIL, 1-5 12/14/2023 N/A 47103-UDRB SKIN LESIONS, 2 TO 4 12/14/2023 N/A L2271-NMHYZROQ DYSTROPHIC NAILS ANY # 12/14/2023 N/A Encounters Encounter Location Date Provider Diagnosis [address] [address] 06/08/2023 Estuardo Mccarthy Type 2 diabetes mellitus with diabetic polyneuropathy E11.42 ; Tinea unguium B35.1 ; Other hammer toe(s) (acquired), right foot M20.41 and Other hammer toe(s) (acquired), left foot M20.[address] [address] 09/14/2023 Estuardo Mccarthy Type 2 diabetes mellitus with diabetic polyneuropathy E11.42 and Tinea unguium B35.[address] [address] 12/14/2023 Estuardo Mccarthy Type 2 diabetes mellitus with diabetic polyneuropathy E11.42 and Tinea unguium B35.[address] [address] 03/21/2024 Estuardo Mccarthy Assessments Encounter Date Diagnosis (ICD Code) Assessment [...] Treatment Pending Test Test Name Order Date 06797-OEBLPXS NAIL, 1-5 01/20/2020 94298-BJAGZZN NAIL, -5 04/27/2020 69116-IMAIFXX NAIL, -5 07/27/2020 29824-KQWCVQN NAIL, -5 11/02/2020 51221-JLXQVJR NAIL, 1-5 02/04/2021 06564-BAMKLVC NAIL, 1-5 05/06/2021 57376-CSOGKDA NAIL, 1-5 08/02/2021 42587-AEBSCMM NAIL, -5 10/28/2021 38539-JBWYDUM NAIL, -5 02/03/2022 95274-IUUAPFN NAIL, -5 05/12/2022 81969-SHTZOXV NAIL, -5 08/18/2022 51460-PPEYAUS NAIL, -5 11/24/2022 94916-UHFGAQX NAIL, -5 03/02/2023 39448-NNPWKSV NAIL, -5 06/08/2023 35118-HPNMSWR NAIL, 1-5 09/14/2023 85172-NEQDNEH NAIL, 1-5 12/14/2023 20078-Phikwxkm Plate 08/18/2022 91201-VGCH SKIN LESIONS, 2 TO 4 03/02/20 23 74179-FWIE SKIN LESIONS, 2 TO 4 12/14/19 24 98552-MZJJ SKIN LESIONS, 2 TO 4 09/14/19 05109-RSXK SKIN LESIONS, 2 TO 4 06/08/19 00971-JPFQ SKIN LESIONS, 2 TO 4 11/25/19 23 75037-RVBU SKIN LESIONS, 2 TO 4 08/19/19 23 88466-TQNJ SKIN LESIONS, 2 TO 4 05/12/19 23 53168-VGMR SKIN LESIONS, 2 TO 4 02/04/20 22 42615-ZBOP SKIN LESIONS, 2 TO 4 10/29/19 86072-GZRZ SKIN LESIONS, 2 TO 4 08/03/19 74701-BHQL SKIN LESIONS, 2 TO 4 02/05/20 21 23270-SDRN SKIN LESIONS, 2 TO 4 05/06/19 22 10542-PKKK SKIN LESIONS, 2 TO 4 07/28/19 21 41673-RJOJ SKIN LESIONS, 2 TO 4 11/03/19 21 45526-CAVK SKIN LESIONS, 2 TO 4 01/20/20 83425-JOOQ SKIN LESIONS, 2 TO 4 04/27/19 21 P9176-OYOGGOIM DYSTROPHIC NAILS ANY # E0900-WEQINIOD DYSTROPHIC NAILS ANY # O1504-FZZHSOPR DYSTROPHIC NAILS ANY # B8374-YDARLLAG DYSTROPHIC NAILS ANY # V2338-FEAPCOPK DYSTROPHIC NAILS ANY # F1607-JYPBRXLZ DYSTROPHIC NAILS ANY # X7421-YWMJQJPW DYSTROPHIC NAILS ANY # S9811-MLPQGNQM DYSTROPHIC NAILS ANY # G1172-MYJYNEDA DYSTROPHIC NAILS ANY # R4171-LKNZHCUA DYSTROPHIC NAILS ANY # V0361-MBMDLDUW DYSTROPHIC NAILS ANY # T7137-ITJHALQC DYSTROPHIC NAILS ANY # J3471-CMZKILUY DYSTROPHIC NAILS ANY # P4465-WPUKKLHP DYSTROPHIC NAILS ANY # J0475-JBLKNNMS DYSTROPHIC NAILS ANY # W5910-WIWEMRTM DYSTROPHIC NAILS ANY # Next Appt Details Provider Name:Estuardo Mccarthy , 03/31/2024 03:45:00 PM, [address] [address], [place], [address], Insurance Providers Payer Name Payer Address Payer Phone Subscriber Number Group Number Insured Name Patient Relationship to Insured Coverage Start Date Coverage End Date Medicare National [employer] [address] [place] [address] [id number] Aminah Florence Self - patient is the insured 0 [employer] Secondary to Medicare [address] [place] [address] [id number] Aminah Florence Self - patient is the insured Medical (General) History Medical History History ICD Code Broken bones Heart disease - CHF High blood pressure Measles Mumps Chicken pox Bone implants/screws Transfusions type II diabetes Macular degeneration Surgical History Surgery Date(Month/Year) cataract surgery 2018 kidney stones removal 07/2020 endoscopy 05/15/23 Hospitalization History Reason Date(Month/Year) [place] [facility] [place] [address] - CHF Dec 20[place] [facility] [place] [facility] [place] 2 compound fractures back 5 da ys test done Rehab 2 weeks 12/12/21 urgent care -UTI given antiboitic 10/25/19
--- OUTSIDE RECORDS SUMMARY | 2024-03-26 14:45 | XMS_ITS | Patient Health Record ---
Author Organization [facility] Address [address] [place] [address] Care Team Providers Care Balloon Maker Name Role Phone Bonnie DUVALL, Patricia Primary Care Provider Chaz Dunaway Unavailable [phone] ALLERGIES Allergen (clinical drug ingredient) Drug/Non Drug Allergy documented on EMR Reaction Allergy Type Onset Date Status acetaminophen / oxycodone Percocet Unknown Drug Allergy Active lisinopril Lisinopril Unknown Drug Allergy Activ e meperidine Demerol Unknown Drug Allergy Active Substance with 2-vuightb-2-methylglutar yl-coenzyme A reductase inhibitor mechanism of action [...] (K31.7) Active confirmed Benign neoplasm of stomach (75117712) Problem Calculus of gallbladder without cholecystitis without obstruction (K80.20) Active confirmed 36489594 Problem Abdominal pain, epigastric (R10.13) Active confirmed 37099990 Problem Gastric polyps (K31.7) Active confirmed 73333335 Problem Gallstones (K80.20) Active confirmed Gallstones (544911566) Problem Gastritis (K29.70) Active confirmed Gastritis (0624874) Problem 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 454695509 Problem Upper abdominal pain (R10.10) Active confirmed Upper abdominal pain (74263349) Problem Chronic gastritis without bleeding, unspecified gastritis type (K29.50) Active confirmed 9567558 Problem Abdominal fullness (R19.8) Active confirmed Epigastric fullness (0250374) Encounters Encounter Location Date Provider Diagnosis [facility] [address] [place] [address] 09/05/2023 Chaz Mendez [facility] [address] [place] [address] 09/05/2023 Chaz Mendez PLAN OF TREATMENT Pending Test Test Name Order Date NUC HIDA SCAN 04/13/2022 Future Test Test Name Order Date COLONOSCOPY 06/12/2014 UPPER GI ENDOSCOPY 04/13/2022 Insurance Providers Payer Name Payer Address Payer Phone Subscriber Number Group Number Insured Name Patient Relationship to Insured Coverage Start Date Coverage End Date MEDICARE OF [place] [address] [place] [address] [phone] [id number] JIMI RAMOS Self - patient is the insured [facility] SUPPLEMENTAL PLAN [address] [place] [address] [id number] JIMI RAMOS Self - patient is the insured MEDICAL (GENERAL) HISTORY Medical History History ICD Code Colonoscopy 07-13-2003---neg. 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 Wadsworth at [facility] with removal of the adenomatous tissue in 10/2022 and is scheduled for a followup upper endoscopy in April of 2023 to reinspect the polypectomy sites. CHF 12/2022 at [facility]--she required intubation. She had to [place] [facility] [place] [facility] [place] [facility] at the time. Surgical History Surgery Date(Month/Year) Partial right lung resection by Dr. Maynard for a carcinoid tumor Right knee replacement 09/01/2013 Parathyroidectomy Disc surgery-lower back Deviated septum repair [facility] Hospitalization History Reason Date(Month/Year)
--- OUTSIDE RECORDS SUMMARY | 2024-03-26 14:45 | XMS_ITS ---
Author Organization [facility] Address [address] [place] [address] Care Team Providers Care Layout Inspector Name Role Phone Bonnie DUVALL, Patricia Primary Care Provider Chaz Dunaway [phone] ALLERGIES Allergen (clinical drug ingredient) Drug/Non Drug Allergy documented on EMR Reaction Allergy Type Onset Date Status acetaminophen / oxycodone Percocet Unknown Drug Allergy Active lisinopril Lisinopril Unknown Drug Allergy Activ e meperidine Demerol Unknown Drug Allergy Active Substance with 2-izbmtpm-9-methylglutar yl-coenzyme A reductase inhibitor mechanism of action (substance) statin drugs (uncoded) Unknown Allergy Active Latex latex (uncoded) Unknown Allergy Acti ve Tambocor Unknown Drug Allergy Active REASON FOR VISIT Patient presents today for epigastric pain MEDICATIONS Medication SIG (Take, Route, Frequency, Duration) Notes Start Date End Date Status Spironolactone 25 MG Oral for 30 I509,Nita herbetr able Active Pantoprazole Sodium 40 MG Oral [...] 03/07/2023 Encounters Encounter Location Date Provider Diagnosis [facility] [address] [place] [address] 03/07/2023 Chaz Mendez Ampullary adenoma D13.5 ASSESSMENTS [...]
--- OUTSIDE RECORDS SUMMARY | 2024-03-26 14:45 | XMS_ITS ---
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
--- OUTSIDE RECORDS SUMMARY | 2024-03-26 14:46 | XMS_ITS | Clinical Summary ---
Author Organization Unknown Care Team Providers Care Filterer Name Role Phone RENETTA DUVALL, ADRI MOURA Unavailable Unavaila mario CROWLEY RN, ELMER Unavailable Unavailable RICHIE ALICEA, SANTIAGO Unavailable Unavailjohana MARCELO PT, AMIRA Unavailable Unavailable SPAFFORD OT, SOLEDAD Unavailable Unavailable Payers Payer Name Policy Type Policy Number Effective Date Expira tion Date MEDICARE.NGS.PDGM [id number] Problems Condition Name Condition Details Condition Category [...] IA, UNSPECIFIED Active 2021-03 0-19 00:00: 00 MANAGER LOAN (CURRENT) USE OF OPIATE ANALGESIC Active 2021-03 0- 00:00: 00 SENIOR LIVING (CURRENT) USE OF ANTICOAGULAN TS Active 2021-03 00:00: 00 SENIOR LIVING (CURRENT) USE OF INSULIN Active 2021-0312 00:00: 00 SENIOR LIVING (CURRENT) USE OF ORAL HYPOGLYCEMIC DRUGS Active [...] 0 00:00: 00 01-07 00:00 :00 No [id number] Per instruc tions Per instructio ns (route: subcutaneo ) Med Classific ation: Endocrine warfarin 2 mg tablet 2021-03 00:00: 00 01-07 00:00 :00 No [id number] Per instruc tions Per instructio ns (route: oral) Med Classific ation: Hematolog ical Agents amlodipine 5 mg tablet 2021-03 00:00: 00 Yes [id number] HTN 1 tablet DAILY 1 tablet DAILY (route: oral) Med Classific ation: Cardiovas cular Therapy Agents metformin 1,000 mg tablet 2021-03 00:00: 00 Yes [id number] DM 1 tablet 2 TIMES DAILY 1 tablet 2 TIMES DAILY (route: oral) Med Classific ation: Endocrine spironolact one 25 mg tablet 2021-03 00:00: 00 Yes [id number] KIDNEY 1 tablet DAILY 1 tablet DAILY (route: oral) Med Classific ation: Cardiovas cular Therapy Agents calcium carbonate 500 mg calcium (1,250 mg) tablet 2021-03 00:00: 00 Yes [id number] DYSPEPSIA 1 tablet DAILY 1 tablet DAILY (route: oral) Med Classific ation: Electroly te Balance-N utritiona l Products Estrace 0.01% (0.1 mg/gram) vaginal cream 2021-03 00:00: 00 Yes [id number] DRYNESS 1 cm 3 TIMES A WEEK 1 cm 3 TIMES A WEEK (route: vaginal) Med Classific ation: Vaginal Products Lantus Solostar U-100 Insulin 100 unit/mL (3 mL) subcutaneou s pen 2021-03 00:00: 00 Yes [id number] DM 20 unit DAILY 20 unit DAILY (route: subcutaneo us) Med Classific ation: Endocrine metoprolol succinate ER 25 mg tablet,exte nded release 24 hr 2021-03 00:00: 00 Yes [id number] HTN 1 tablet DAILY 1 tablet DAILY (route: oral) Med Classific ation: Cardiovas cular Therapy Agents oxycodone 5 mg tablet 2021-03 00:00: 00 Yes [id number] SEVERE PAIN 1 tablet EVERY 6 HOURS 1 tablet EVERY 6 HOURS (route: oral) Med Classific ation: Analgesic , Anti-infl ammatory or Antipyret ic rosuvastati n 5 mg tablet 2021-03 00:00: 00 Yes [id number] CHOLESTEROL 1 tablet 3 TIMES A WEEK 1 tablet 3 TIMES A WEEK (route: oral) Med Classific ation: Cardiovas cular Therapy Agents warfarin 5 mg tablet 2021-03 00:00: 00 01-09 23:59 :00 No [id number] A FIB 1 tablet DAILY 1 tablet DAILY (route: oral) Med Classific ation: Hematolog ical Agents B12 Active 1,000 mcg chewable tablet 2021-03 00:00: 00 Yes [id number] SUPPLEMENT 1 tablet DAILY 1 tablet DAILY (route: oral) Med Classific ation: Electroly te Balance-N utritiona l Products calcium citrate 200 mg calcium-vit puckett D3 3.125 mcg (125 unit) tablet 2021-03 00:00: 00 Yes [id number] OSTEOPOROSI S 1 tablet DAILY 1 tablet DAILY (route: oral) Med Classific ation: Electroly te Balance-N utritiona l Products Co Q-10 10 mg capsule 2021-03 00:00: 00 Yes [id number] SUPPLEMENT 1 capsule DAILY 1 capsule DAILY (route: oral) Med Classific ation: Alternati ve Therapy Ferrocite 324 mg (106 mg iron) tablet 2021-03 00:00: 00 Yes [id number] ANEMIA 1 tablet BEDTIME 1 tablet BEDTIME (route: oral) Med Classific ation: Electroly te Balance-N utritiona l Products Humalog KwikPen (U-100) Insulin 100 unit/mL [facility] 2021-03 00:00: 00 Yes [id number] BS 2 unit DIRECTED 2 unit DIRECTED (route: subcutaneo us) Med Classific ation: Endocrine Humalog KwikPen (U-100) Insulin 100 unit/mL [facility] 2021-03 00:00: 00 Yes [id number] BS 4 unit DIRECTED 4 unit DIRECTED (route: subcutaneo us) Med Classific ation: Endocrine Humalog KwikPen (U-100) Insulin 100 unit/mL [facility] 2021-03 00:00: 00 Yes [id number] BS 6 unit DIRECTED 6 unit DIRECTED (route: subcutaneo us) Med Classific ation: Endocrine Humalog KwikPen (U-100) [facility] 00:00: 00 Yes [id number] BS 8 unit DIRECTED 8 unit DIRECTED (route: subcutaneo us) Med Classific ation: Endocrine Humalog KwikPen (U-100) [facility]ulin [facility] unit[facility] 2021-03 00:00: 00 Yes [id number] BS 10 unit DIRECTED 10 unit DIRECTED (route: subcutaneo us) Med Classific ation: Endocrine Humalog KwikPen (U-100) Insulin 100 unit/mL subcutane s 2021-03 00:00: 00 Yes [id number] DM 12 unit DIRECTED 12 unit DIRECTED (route: subcutaneo us) Med Classific ation: Endocrine magnesium oxide 500 mg tablet 2021-03 00:00: 00 Yes [id number] SUPPLEMENT 1 tablet DAILY 1 tablet DAILY (route: oral) Med Classific ation: Electroly te Balance-N utritiona l Products Miralax 17 gram oral powder packet 2021-03 00:00: 00 Yes [id number] CONSTIPATIO N 17 g DAILY 17 g DAILY (route: oral) Med Classific ation: Gastroint estinal Therapy Agents PreserVisio n AREDS-2 250 mg-90 mg-40 mg-1 mg capsule 2021-03 00:00: 00 Yes [id number] EYE HEALTH 1 capsule 2 TIMES DAILY 1 capsule 2 TIMES DAILY (route: oral) Med Classific ation: Alternati ve Therapy Eliquis 5 mg tablet 2021-03 00:00: 00 Yes [id number] BLOOD THINNER 1 tablet 2 TIMES DAILY [...] EMERGENCY SERVICES CALL [facility] NURSE TO KEEP TOP CARRIER SYMPTOM REPORT FOR VISIBLE REFERENCE NOTIFY SKILLED [...] EMERGENCY SERVICES CALL [facility] NURSE TO KEEP TOP CARRIER SYMPTOM REPORT FOR VISIBLE REFERENCE NOTIFY SKILLED [...] Date/Time Encounter Type Admission Type Attending [facility] Care Department Encounter ID Discharge Date Discharge Status Discharge Condition Discharge Reason Percent Goals Met 2022-01-07 00:00:00 2022-03-03 00:00:00 Outpatient NEW ADMISSION ELMER CROWLEY [facility] [id number] 2022-03-03 00:00:00 DISCHARGE TO HOME OR SELF CARE INDEPENDEN T WITH USE OF ASSISTIVE DEVICE HH OR PAL- GOALS MET 66.67
--- OUTSIDE RECORDS SUMMARY | 2024-03-26 14:46 | XMS_ITS | Clinical Summary ---
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 ANALGESIC Active 2021-03 0- 00:00: 00 USP (CURRENT) USE OF ANTICOAGULAN TS Active 2021-03 00:00: 00 USP (CURRENT) USE OF INSULIN Active 2021-0312 00:00: 00 USP (CURRENT) USE OF ORAL HYPOGLYCEMIC DRUGS Active [...] 0 00:00: 00 01-07 00:00 :00 No [id number] Per instruc tions Per instructio ns (route: subcutaneo ) Med Classific ation: Endocrine warfarin 2 mg tablet 2021-03 00:00: 00 01-07 00:00 :00 No [id number] Per instruc tions Per instructio ns (route: oral) Med Classific ation: Hematolog ical Agents amlodipine 5 mg tablet 2021-03 00:00: 00 Yes [id number] HTN 1 tablet DAILY 1 tablet DAILY (route: oral) Med Classific ation: Cardiovas cular Therapy Agents metformin 1,000 mg tablet 2021-03 00:00: 00 Yes [id number] DM 1 tablet 2 TIMES DAILY 1 tablet 2 TIMES DAILY (route: oral) Med Classific ation: Endocrine spironolact one 25 mg tablet 2021-03 00:00: 00 Yes [id number] KIDNEY 1 tablet DAILY 1 tablet DAILY (route: oral) Med Classific ation: Cardiovas cular Therapy Agents calcium carbonate 500 mg calcium (1,250 mg) tablet 2021-03 00:00: 00 Yes [id number] DYSPEPSIA 1 tablet DAILY 1 tablet DAILY (route: oral) Med Classific ation: Electroly te Balance-N utritiona l Products Estrace 0.01% (0.1 mg/gram) vaginal cream 2021-03 00:00: 00 Yes [id number] DRYNESS 1 cm 3 TIMES A WEEK 1 cm 3 TIMES A WEEK (route: vaginal) Med Classific ation: Vaginal Products Lantus Solostar U-100 Insulin 100 unit/mL (3 mL) subcutaneou s pen 2021-03 00:00: 00 Yes [id number] DM 20 unit DAILY 20 unit DAILY (route: subcutaneo us) Med Classific ation: Endocrine metoprolol succinate ER 25 mg tablet,exte nded release 24 hr 2021-03 00:00: 00 Yes [id number] HTN 1 tablet DAILY 1 tablet DAILY (route: oral) Med Classific ation: Cardiovas cular Therapy Agents oxycodone 5 mg tablet 2021-03 00:00: 00 Yes [id number] SEVERE PAIN 1 tablet EVERY 6 HOURS 1 tablet EVERY 6 HOURS (route: oral) Med Classific ation: Analgesic , Anti-infl ammatory or Antipyret ic rosuvastati n 5 mg tablet 2021-03 00:00: 00 Yes [id number] CHOLESTEROL 1 tablet 3 TIMES A WEEK 1 tablet 3 TIMES A WEEK (route: oral) Med Classific ation: Cardiovas cular Therapy Agents warfarin 5 mg tablet 2021-03 00:00: 00 01-09 23:59 :00 No [id number] A FIB 1 tablet DAILY 1 tablet DAILY (route: oral) Med Classific ation: Hematolog ical Agents B12 Active 1,000 mcg chewable tablet 2021-03 00:00: 00 Yes [id number] SUPPLEMENT 1 tablet DAILY 1 tablet DAILY (route: oral) Med Classific ation: Electroly te Balance-N utritiona l Products calcium citrate 200 mg calcium-vit puckett D3 3.125 mcg (125 unit) tablet 2021-03 00:00: 00 Yes [id number] OSTEOPOROSI S 1 tablet DAILY 1 tablet DAILY (route: oral) Med Classific ation: Electroly te Balance-N utritiona l Products Co Q-10 10 mg capsule 2021-03 00:00: 00 Yes [id number] SUPPLEMENT 1 capsule DAILY 1 capsule DAILY (route: oral) Med Classific ation: Alternati ve Therapy Ferrocite 324 mg (106 mg iron) tablet 2021-03 00:00: 00 Yes [id number] ANEMIA 1 tablet BEDTIME 1 tablet BEDTIME (route: oral) Med Classific ation: Electroly te Balance-N utritiona l Products Humalog KwikPen (U-100) Insulin 100 unit/mL [facility] 2021-03 00:00: 00 Yes [id number] BS 2 unit DIRECTED 2 unit DIRECTED (route: subcutaneo us) Med Classific ation: Endocrine Humalog KwikPen (U-100) Insulin 100 unit/mL [facility] 2021-03 00:00: 00 Yes [id number] BS 4 unit DIRECTED 4 unit DIRECTED (route: subcutaneo us) Med Classific ation: Endocrine Humalog KwikPen (U-100) Insulin 100 unit/mL [facility] 2021-03 00:00: 00 Yes [id number] BS 6 unit DIRECTED 6 unit DIRECTED (route: subcutaneo us) Med Classific ation: Endocrine Humalog KwikPen (U-100) [facility] 00:00: 00 Yes [id number] BS 8 unit DIRECTED 8 unit DIRECTED (route: subcutaneo us) Med Classific ation: Endocrine Humalog KwikPen (U-100) [facility] 00:00: 00 Yes [id number] BS 10 unit DIRECTED 10 unit DIRECTED (route: subcutaneo us) Med Classific ation: Endocrine Humalog KwikPen (U-100) Insulin 100 unit/mL subcutane s 2021-03 00:00: 00 Yes [id number] DM 12 unit DIRECTED 12 unit DIRECTED (route: subcutaneo us) Med Classific ation: Endocrine magnesium oxide 500 mg tablet 2021-03 00:00: 00 Yes [id number] SUPPLEMENT 1 tablet DAILY 1 tablet DAILY (route: oral) Med Classific ation: Electroly te Balance-N utritiona l Products Miralax 17 gram oral powder packet 2021-03 00:00: 00 Yes [id number] CONSTIPATIO N 17 g DAILY 17 g DAILY (route: oral) Med Classific ation: Gastroint estinal Therapy Agents PreserVisio n AREDS-2 250 mg-90 mg-40 mg-1 mg capsule 2021-03 00:00: 00 Yes [id number] EYE HEALTH 1 capsule 2 TIMES DAILY 1 capsule 2 TIMES DAILY (route: oral) Med Classific ation: Alternati ve Therapy Eliquis 5 mg tablet 2021-03 00:00: 00 Yes [id number] BLOOD THINNER 1 tablet 2 TIMES DAILY [...] EMERGENCY SERVICES CALL [facility] NURSE TO KEEP HEAD GREASE MAKER SYMPTOM REPORT FOR VISIBLE REFERENCE NOTIFY SKILLED [...] EMERGENCY SERVICES CALL [facility] NURSE TO KEEP [employer] GREASE MAKER SYMPTOM REPORT FOR VISIBLE REFERENCE NOTIFY SKILLED [...] End Date/Time Encounter Type Admission Type Attending [facility] Care Facility Care Department Encounter ID Discharge Date Discharge Status Discharge Condition Discharge Reason Percent Goals Met 2022-01-07 00:00:00 2022-03-03 00:00:00 Outpatient NEW ADMISSION [facility] CROWLEY [facility] [id number] 2022-03-03 00:00:00 DISCHARGE TO HOME OR SELF CARE INDEPENDEN T WITH USE OF ASSISTIVE DEVICE HH OR PAL- GOALS MET 66.67
[2024-03-26 14:50] LABS: Appearance Urine Clear; Color Urine Yellow; Glucose Urine UA Negative (Negative); Leukocyte Esterase Urine Negative (Negative); Nitrite Urine Negative (Negative); PH 5.5 (5.0-9.0); Urine Blood Negative (Negative); Urine Ketones Negative (Negative); Urine Protein Negative (Neg-Trace)
== END 2024-03-26 14:41 | disposition home or self-care (01) ==
LOC: HO.LNP 14:40
PROVIDERS: Visit Provider Internal Medicine
DX: R30.0 Dysuria (principal)
CPT/HCPCS: 81003

== ENCOUNTER → 2024-05-04 23:59 | Outpatient (BNV) | payer MEDICARE, SELFPAY ==
--- NOTE | 2024-05-10 18:57 | MHC.OFFVIS ---
Intake Visit Reasons: Remote device check- [employer] Allergies latex [Latex] Allergy (Severe, Verified 03/05/24 14:50) RASH cephalexin [CEPHALEXIN] Allergy (Intermediate, Verified 03/05/24 14:50) SWELLING adhesive tape [Adhesive Tape] Allergy (Mild, Verified 03/05/24 14:50) CONTACT DERMATITIS empagliflozin [From Jardiance] Adverse Reaction (Severe, Verified 03/05/24 14:50) Dizziness flecainide [From Tambocor] Adverse Reaction (Severe, Verified 03/05/24 14:50) HEART RACING Biaxin Adverse Reaction (Intermediate, Verified 03/05/24 14:50) plapitations lisinopril [LISINOPRIL] Adverse Reaction (Intermediate, Verified 03/05/24 14:50) cough, nausea bacitracin [From Cortisporin] Adverse Reaction (Mild, Verified 03/05/24 14:50) EYE IRRITATION hydrocortisone [From Cortisporin] Adverse Reaction (Mild, Verified 03/05/24 14:50) EYE IRRITATION neomycin [From Cortisporin] Adverse Reaction (Mild, Verified 03/05/24 14:50) EYE IRRITATION nitrofurantoin Adverse Reaction (Verified 03/05/24 14:50) Loss of Appetite PFSH Medical History (Updated 04/01/24 @ 13:39 by Patricia Nicole MD) Hiatal hernia Gastritis Opioid-induced constipation Degenerative disc disease, thoracic Degenerative disc disease, lumbar [place] (hard of hearing) Wears hearing aid in both ears Uses walker Hx of cardiac pacemaker (10/06/23) Age-related osteoporosis with current pathological fracture, vertebra(e), initial encounter for fracture Compression fracture of lumbar spine, non-traumatic Nontraumatic compression fracture of thoracic vertebra Moderate aortic stenosis Diabetes mellitus Congestive heart failure Urinary tract infection Hypertension Paroxysmal atrial fibrillation Cholelithiasis Renal cyst Nephrolithiasis Pulmonary hypertension Non-rheumatic mitral regurgitation Permanent atrial fibrillation Right nephrolithiasis Compression deformity of vertebra Microcytic anemia Heartburn Atrophic vaginitis Osteoarthritis of knees, bilateral Essential hypertension Dyslipidemia Type 2 diabetes mellitus with diabetic neuropathy, with long-term current use of insulin Surgical History History of cardiac radiofrequency ablation (RFA) Hx of cardiac catheterization History of esophagogastroduodenoscopy (EGD) (~10/2022) History of lumbar discectomy History of lobectomy of lung History of hysterectomy History of total right knee replacement (TKR) Lumbar radiculopathy Family History Father Diabetes mellitus Mother Diabetes mellitus Myocardial infarction Sister Cancer Sister No problems noted. Son No problems noted. Daughter No problems noted. Social History Household Members: None Housing: House Are you a primary care trainer to a significant other at home: No Do you presently have visiting nurse or other home services: No (supportive family) Unable to assess alcohol history related to: Unable to respond Alcohol intake: never Patient Tobacco Use Status: Former Tobacco user Tobacco use type: Cigarette e-Cigarette/Vaping Use: Never Used Advance Directives Date on File: 06/20/23 service: No Current occupational status: retired Cognitive needs: No Hearing needs: Yes Vision needs: Yes Office Procedures Cardiac Device Check Cardiac Device Check Details: Date of service- 05/04/2024 ; Battery life >12 years; normal lead parameters; INFUSION NURSE 94%; no significant arrhythmias. Overall normal device function. [id number] Cardiac Device Interrogation, pacemaker Procedure code (CPT) selection complete Assessment & Plan Assessment & Plan (1) Pacemaker: Code(s): Z95.0 - Presence of cardiac pacemaker Category: Medical (2) Congestive heart failure: Code(s): I50.9 - Heart failure, unspecified Category: Medical Qualifiers: Heart failure type: unspecified Heart failure chronicity: unspecified Qualified Code(s): I50.9 - Heart failure, unspecified Plan x Coding Level of Care Code Procedure Only Diagnoses Pacemaker Z95.0 Congestive heart failure, unspecified HF chronicity, unspecified heart failure type I50.9 Heart failure type: unspecified Heart failure chronicity: unspecified CPT Codes Cardiac Device Check - Cardiac Device 12: [id number] Cardiac Device Interrogation, pacemaker ([id number])
== END ==
PROVIDERS: PCP Internal Medicine; Visit Provider Internal Medicine
DX: I50.9 Heart failure, unspecified (principal); Z95.0 Presence of cardiac pacemaker
CPT/HCPCS: 93294

== ENCOUNTER 2024-05-10 08:01 | Outpatient (REF) | payer MEDICARE, SELFPAY ==
[2024-05-10 11:18] LABS: MANUAL DIFF FLAG NO
[2024-05-10 11:28] LABS: Basophils Percent Auto 0.3 % (0-2); Eosinophils Absolute Auto 0.2 X10*3/uL (0.0-0.4); Hematocrit 35.6 % (37.0-47.0); Hemoglobin 11.4 g/dl (12.0-16.0); Imm Gran Abs Auto 0.03 X10*3/uL (0.00-0.03); Imm Gran Pct Auto 0.5 % (0.0-0.4); Lymphocytes Absolute Auto 1.3 X10*3/uL (1.2-4.9); Lymphocytes Percent Auto 18.9 % (20-40); Mean Corpuscular Hemoglobin 26.7 pg (27.0-33.0); Mean Corpuscular Volume 83.4 fL (80.0-98.0); Mean Platelet Volume 9.2 fL (9.4-12.3); Monocytes Absolute Auto 0.9 X10*3/uL (0.1-1.2); Neutrophils Absolute Auto 4.3 x10*3/uL (2.0-8.3); Neutrophils Percent Auto 64.3 % (45-73); Platelet Count 332 X10*3/uL (160-400); Red Blood Count 4.27 X10*6/uL (4.20-5.50); Red Cell Distribution Width 15.3 % (11.0-16.0); White Blood Count 6.6 X10*3/uL (4.8-10.8)
[2024-05-10 11:38] LABS: Estimated Average Glucose 148 mg/dL; Hemoglobin A1C 153.2623 umol/L; Hemoglobin A1c % 6.8 % (<6.0); Total Hemoglobin (HGBA1C) 3009.1875 umol/L
[2024-05-10 11:46] LABS: Alanine Aminotransferase < 6 U/L (0-31); Anion Gap 17 (12-20); Aspartate Amino Transferase 24 U/L (5-31); Blood Urea Nitrogen 17 mg/dL (9-16); Calcium 9.7 mg/dL (8.4-10.2); Carbon Dioxide 24 mmol/L (22-29); Chloride 101 mmol/L (96-108); Cholesterol 125 mg/dL (<200); Estimated Glomerular Filt Rate > 60; Glucose Fasting 107 mg/dL (60-99); HDL Cholesterol 45 mg/dL (>40); Iron 39 mcg/dL (30-160); LDL Cholesterol Calculated 59 mg/dL (<100); Percent Iron Saturation 14 % (15-50); Potassium 3.9 mmol/L (3.3-5.1); Sodium 138 mmol/L (135-145); Total Iron Binding Capacity 282 mcg/dL (228-428); Triglycerides 108 mg/dL (<150); Unsaturated Iron Binding 243 ug/dL
[2024-05-10 12:01] LABS: Vitamin D 25-OH Total 50.8 ng/mL (>30)
[2024-05-10 13:59] LABS: Creatinine Urine 80.64 mg/dL; Microalbum/Creatinine Ratio Ur 120.2 ug/mg cr (<30)
== END 2024-05-10 08:02 | disposition home or self-care (01) ==
LOC: HO.HMGCLDS 08:01
PROVIDERS: PCP Internal Medicine; Visit Provider Internal Medicine
DX: K29.50 Unspecified chronic gastritis without bleeding (principal); Z79.01 Long term (current) use of anticoagulants; M80.08XA Age-related osteoporosis with current pathological fracture, vertebra(e), initial encounter for fracture; D64.9 Anemia, unspecified; D50.9 Iron deficiency anemia, unspecified; I10 Essential (primary) hypertension; E78.5 Hyperlipidemia, unspecified; E11.40 Type 2 diabetes mellitus with diabetic neuropathy, unspecified; Z79.4 Long term (current) use of insulin
CPT/HCPCS: 36415; 80048; 80061; 82043; 82306; 82570; 83036; 83540; 84450; 84460; 85025

== ENCOUNTER 2024-05-14 11:37 | Outpatient (AMB) | payer MEDICARE, SELFPAY ==
--- NOTE | 2024-05-14 11:39 | A.OFFPC_ITS ---
Vital Signs 05/14/24 11:42 Height 5 ft 4 in Weight 142 lb 2 oz BMI 24.4 BP 102/60 Blood Pressure Location Lt brachial Position Sitting Respiration 16 Pulse 92 Pulse Source Pulse Oximeter Temp 97.6 F Temp Source Oral Pulse Oximetry (%) 96 Oxygen Delivery Method Room Air Intake Visit Reasons: 3m follow up Intake Note: Pt is here today for her 3mo. f/u Allergies latex [Latex] Allergy (Severe, Verified 05/18/24 15:44) RASH cephalexin [CEPHALEXIN] Allergy (Intermediate, Verified 05/18/24 15:44) SWELLING adhesive tape [Adhesive Tape] Allergy (Mild, Verified 05/18/24 15:44) CONTACT DERMATITIS empagliflozin [From Jardiance] Adverse Reaction (Severe, Verified 05/18/24 15:44) Dizziness flecainide [From Tambocor] Adverse Reaction (Severe, Verified 05/18/24 15:44) HEART RACING Biaxin Adverse Reaction (Intermediate, Verified 05/18/24 15:44) plapitations lisinopril [LISINOPRIL] Adverse Reaction (Intermediate, Verified 05/18/24 15:44) cough, nausea bacitracin [From Cortisporin] Adverse Reaction (Mild, Verified 05/18/24 15:44) EYE IRRITATION hydrocortisone [From Cortisporin] Adverse Reaction (Mild, Verified 05/18/24 15:44) EYE IRRITATION neomycin [From Cortisporin] Adverse Reaction (Mild, Verified 05/18/24 15:44) EYE IRRITATION nitrofurantoin Adverse Reaction (Verified 05/18/24 15:44) Loss of Appetite Medication List - Last Reconciled 05/18/24 by Patricia Nicole MD acetaminophen ER (Tylenol Arthritis Pain) 650 mg PO Q8H apixaban (Eliquis) 5 mg PO BID coenzyme Q10 (CoQ-10) 100 mg PO DAILY furosemide (Lasix) 40 mg PO DAILY gabapentin 100 mg PO BEDTIME insulin glargine (Lantus Solostar U-100 Insulin) 10 units subcut BEDTIME insulin lispro (Humalog KwikPen U-200 Insulin) 2 - 12 units subcut USEASDIRECTD loratadine (Wal-itin) 10 mg PO DAILY losartan 50 mg PO DAILY metformin 1,000 mg PO BID 3 months metoprolol succinate ER 25 mg PO DAILY pen needle, diabetic (BD Ultra-Fine Mini Pen Needle) As directed QID ac and hs rosuvastatin 5 mg PO MOWEFR 90 days spironolactone 25 mg PO DAILY tramadol 50 mg PO Q8H PRN vit C,C-Jh-ncpaa-lutein-zeaxan 250-90-40-1 mg (PreserVision AREDS-2) 1 tab PO BID Tobacco use date assessed: 05/14/24 Fall risk assessment: No Falls in past year Last assessed Fall Risk: 05/14/24 Dental Screening Dental Screen Date: 05/14/24 Did you have a dental visit in the last 12 months?: Yes Did you have a dental problem in the last 6 months where you did not have access to dental care?: No Was dental information given to patient?: Patient has dentist HPI 3m follow up HPI Details 3-year-old lady with type 2 diabetes jairo litus currently on insulin, hypertension, hyperlipidemia, 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 Has been compliant with taking her medications, and has been compliant with diet but is mostly sedentary, just walks around her apartment but does not go outside. She has hampered by recurrent pain in her mid back degenerative disc disease with history of compression fractures. She takes a Tylenol and tramadol as needed. Bowel movements are now regular. Recent fasting labs showed hemoglobin A1c now at 6.8% with normal lipids, still with mild anemia [facility] Medical History (Updated 04/01/24 @ 13:39 by Patricia Nicole MD) Hiatal hernia Gastritis Opioid-induced constipation Degenerative disc disease, thoracic Degenerative disc disease, lumbar EKWOK (hard of hearing) Wears hearing aid in both ears Uses walker Hx of cardiac pacemaker (10/06/23) Age-related osteoporosis with current pathological fracture, vertebra(e), initial encounter for fracture Compression fracture of lumbar spine, non-traumatic Nontraumatic compression fracture of thoracic vertebra Moderate aortic stenosis Diabetes mellitus Congestive heart failure Urinary tract infection Hypertension Paroxysmal atrial fibrillation Cholelithiasis Renal cyst Nephrolithiasis Pulmonary hypertension Non-rheumatic mitral regurgitation Permanent atrial fibrillation Right nephrolithiasis Compression deformity of vertebra Microcytic anemia Heartburn Atrophic vaginitis Osteoarthritis of knees, bilateral Essential hypertension Dyslipidemia Type 2 diabetes mellitus with diabetic neuropathy, with long-term current use of insulin Surgical History History of cardiac radiofrequency ablation (RFA) Hx of cardiac catheterization History of esophagogastroduodenoscopy (EGD) (~10/2022) History of lumbar discectomy History of lobectomy of lung History of hysterectomy History of total right knee replacement (TKR) Lumbar radiculopathy Family History Father Diabetes mellitus Mother Diabetes mellitus Myocardial infarction Sister Cancer Sister No problems noted. Son No problems noted. Daughter No problems noted. Social History Household Members: None Housing: House Are you a primary animal care attendant to a significant other at home: No Do you presently have visiting nurse or other home services: No (supportive fam lasha) Unable to assess alcohol history related to: Unable to respond Alcohol intake: never Patient Tobacco Use Status: Former Tobacco user Tobacco use type: Cigarette e-Cigarette/Vaping Use: Never Used Advance Directives Date on File: 06/20/23 service: No Current occupational status: retired Cognitive needs: No Hearing needs: Yes Vision needs: Yes Questionnaire PHQ-9 Over the last 2 weeks, how often have you been bothered by any of the following problems? 1. Little interest or pleasure in doing things: several days 2. Feeling down, depressed, or hopeless: not at all 3. Trouble falling or staying asleep, or sleeping too much: more than half the days 4. Feeling tired or having little energy: several days 5. Poor appetite or overeating: more than half the days 6. Feeling bad about yourself - or that you are a failure or have let yourself or your family down: not at all 7. Trouble concentrating on things, such as reading the newspaper or watching television: not at all 8. Moving or speaking so slowly that other people could have noticed. Or the opposite - being so fidgety or restless that you have been moving around a lot m ore than usual: not at all 9. Thoughts that you would be better off or of hurting yourself in some way: not at all Total score: 6 Source: Developed by Lily Qureshi, Aauysh Severino and colleagues, with an educational melinda from [employer]. Thrive Questionnaire Date Thrive assessed: 03/27/24 I am a: Patient What is your living situation today?: I have a steady place to live Within the past 12 months, did the food you bought not last and you didn't have the money to get more?: Never true Within the past 12 months, did you worry whether your food would run out before you got money to buy more?: Never true Do you have trouble paying for medicines?: No Do you have trouble getting transportation to medical appointments?: No Do you have trouble paying your heating and electricity bill?: No Do you have trouble taking care of your child, family member or friend?: No Do you have trouble with day-to-day activities such as bathing, preparing meals, shopping, managing finances, etc.?: Yes Are you currently unemployed and looking for a job?: No Are you interested in more education?: No Please select the resources that you would like help with: None Currently or been in a relationship where the following occur: No concerns reported THRIVE Score: 0 AUDIT C Alcohol Use Questionnaire (AUDIT-C) 1. How often do you have a drink containing alcohol?: Never 3. How often do you have six or more drinks on one occasion?: Never Total Score: 0 INGRID-7 AMB Questionnaire INGRID-7 Date INGRID - 7 assessed: 05/14/24 Feeling nervous, anxious, or on edge: 1 = Several days Not being able to stop or control worryin = Not at all Worrying too much about different things: 0 = Not at all Trouble relaxin = Several days Being so restless that it is hard to sit still: 0 = Not at all Becoming easily annoyed or irritable: 1 = Several days Feeling afraid as if something awful might happen: 0 = Not at all Total INGRID-7 score (0-4 normal; 5-9 mild; 10-14 moderate; 15-21 severe): 3 Source: Developed by Lily Qureshi Kurt Kroenke and colleagues, with an educational melinda from [employer]. INGRID-7 Assessment Billing INGRID-7 Assessment Tool: INGRID-7 Assessment 37297 Review of Systems Const Reports no additional complaints Eyes Denies change in vision ENT Reports no additional complaints Card Reports as per HPI Resp Reports no additional complaints GI Reports as per HPI Reports as per HPI Musc Reports as per HPI Neuro Denies Abnormal speech present, Denies confusion and Denies Sensory deficit (Neuro) Psych Denies confusion Endo Reports no additional complaints Alejandro/Lymph Reports no additional complaints Aller/Immun Reports no additional complaints Physical exam (Primary Care) Vital Signs: Last Vital Signs Temp 97.6 F 05/14/24 11:42 Pulse 92 05/14/24 11:42 Resp 16 05/14/24 11:42 BP 102/60 05/14/24 11:42 Pulse Ox 96 05/14/24 11:42 Oxygen Delivery Method Room Air 05/14/24 11:42 BMI result Body Mass Index 24.4 Tobacco/Smoking Status: Tobacco use Status Tobacco use date assessed 05/14/24 05/14/24 11:50 Patient Tobacco Use Status Former Tobacco user 05/14/24 11:41 Tobacco use type Cigarette 05/14/24 11:41 e-Cigarette/Vaping Use Never Used 05/14/24 11:41 PHQ-9: PHQ-9 Score PHQ-9: Total score 6 05/14/24 12:26 Thrive Assessment: Date of Thrive Assessment Date Thrive assessed 03/27/24 05/14/24 11:41 Currently or been in a relationship where the following occur: No concerns reported Const Other: Alert oriented x3, no acute distress noted ambulatory with walker,daughter accompanying patient General: No confusion Orientation/consciousness: patient oriented x3 and No confusion HENMT Ears: hearing grossly impaired Mouth: Normal oral and palatal mucosa present and moist mucous membranes Eyes General: appearance normal, both eyes and all related structures Neck Neck: Yes full ROM, Yes no lymphadenopathy and Yes supple Resp Auscultation: clear to auscultation bilaterally Cardio Other: S1-S2 present regular rate and rhythm, systolic murmur heard for base GI Other: obese, Normal bowel sounds, soft, nontender, with no mass palpated Back/Spine/Pelvis Other: Slightly kyphotic, no tenderness on palpation over paraspinal muscles or over thoracic or lumbar spine area Neuro General: patient oriented x3, tone normal, moves all extremities and No confusion Speech: No Abnormal speech present Sensory Exam: No Sensory deficit (Neuro) Extrem General: Yes full ROM, Yes no joint enlargement, Yes no clubbing, cyanosis or edema and Yes no calf tenderness Psych Appearance: grossly normal and well kempt Mental Status: mental status grossly normal Speech and movement: Normal speech and movement present Affect: normal affect Results Reviewed Results Reviewed: Name: Aminah Kraft Age/Sex: 83/F : 1940 Unit#: [id number] Attend Dr: Patricia Nicole MD Re05/10/24 Status: DEP REF Location: [facility] Disch: SPEC : [id number] ANALISA: 05/10/24 STATUS: COMP REQ : [id number] RECD: 05/10/[address]: Patricia Nicole MD COMP: 05/10/24 ENTERED: 05/10/[address] [facility] [address]: ORDERED: CBC Auto Diff Test Result Flag Reference WBC 6.6 4.8-10.8 X10*3/uL RBC 4.27 4.20-5.50 X10*6/uL HGB 11.4 L 12.0-16.0 g/dl HCT 35.6 L 37.0-47.0 % MCV 83.4 80.0-98.0 fL MCH 26.7 L 27.0-33.0 pg MCHC 32.0 31.0-35.0 g/dl RDW 15.3 11.0-16.0 % PLT 332 160-400 X10*3/uL MPV 9.2 L 9.4-12.3 fL Neut Pct Auto 64.3 45-73 % ImGran Pct Auto 0.5 H 0.0-0.4 % Lymp Pct Auto 18.9 L 20-40 % Hartley Pct Auto 13.0 H 2-11 % Eos Pct Auto 3.0 0-4 % Baso Pct Auto 0.3 0-2 % NRBC Pct Auto 0.0 0.0-0.2 /100WBC ANC Neut Abs # 4.3 2.0-8.3 x10*3/uL ImGran Abs Auto 0.03 0.00-0.03 X1 0*3/uL Lymph Abs Auto 1.3 1.2-4.9 X10*3/uL Hartley Abs Auto 0.9 0.1-1.2 X10*3/uL Eos Abs Auto 0.2 0.0-0.4 X10*3/uL Baso Abs Auto 0.0 0.0-0.2 X10*3/uL NRBC Abs Auto 0.000 0.0-0.012 X10*3/uL Name: Aminah Kraft Age/Sex: 83/F : 1940 Unit#: [id number] Attend Dr: Patricia Nicole MD Re05/10/24 Status: DEP [facility]F [facility] Disch: SPEC : [id number] ANALISA: 05/10/24 STATUS: COMP REQ : [id number] RECD: 05/10/24-[address]: Patricia Nicole MD COMP: 05/10/24 ENTERED: 05/10/[address] [facility] [address]: ORDERED: Met Prof Fast, IRON PROF, AST, ALT, Lipid Panel, Vitamin D 25-OH Test Result Flag Reference Sodium 138 135-145 mmol/L Potassium 3.9 3.3-5.1 mmol/L CL 101 96-108 mmol/L CO2 24 22-29 mmol/L Gap 17 12-20 BUN 17 H 9-16 mg/dL Creat 0.71 0.5-1.4 mg/dL eGFR > 60 Chronic Kidney Disease: Estimated GFR < 60 mL/min/1.7 3m2 Severe Kidney Disease: Estimated GFR < 15 mL/min/1.73m2 FBS 107 H 60-99 mg/dL A fasting glucose from 100-125 mg/dl is considered impaired (pre-diabetes). CA 9.7 8.4-10.2 mg/dL Iron 39 30-160 mcg/dL TIBC 282 228-428 mcg/dL Saturation 14 L 15-50 % UIBC 243 ug/dL AST (GOT) 24 5-31 U/L ALT (GPT) < 6 0-31 U/L Triglyceride 108 <150 mg/dL Desirable Triglyceride: less than 150 mg/dL Borderline High Triglyceride 150-199 mg/dL High Triglyceride: 200-499 mg/dL Very High Triglyceride: greater than or equal to 5OO mg/dL Cholesterol 125 <200 mg/dL Desirable Cholesterol: less than 200 mg/dL Borderline High Cholesterol: 200-239 mg/dL High Cholesterol: greater than 239 mg/dL LDL Calculated 59 <100 mg/dL Desirable LDL: less than 100 mg/dL Near Optimal/Above Optimal LDL: 110-129 mg/dL Borderline High LDL: 130-159 mg/dL High LDL: 160-189 mg/dL Very High LDL: greater than or equal to 190 mg/dL HDL 45 >40 mg/dL Desirable HDL: greater than 40 mg/dL Note: This HDL assay may give artificially low results in patients with liver disease. Vit D 25-OH Tot 50.8 >30 ng/mL Health Based Reference Values* < 20 ng/mL Deficient 20-30 ng/mL Insufficient > 30 ng/mL Sufficient Laboratory Tests 05/10/24 05/10/24 08:42 09:32 Estimat Average Glucose 148 Hemoglobin A1c % 6.8 H Urine Creatinine 80.64 Urine Microalbumin 97.0 Microalb/Creat Ratio 120.2 H Coding Level of Care Code Est Pt Level 4 (06153) Complex EM visit Add On G2211 Diagnoses Type 2 diabetes mellitus with diabetic neuropathy, with long-term current use of insulin E11.40; Z79.4 Degenerative disc disease, thoracic M51.34 Microcytic anemia D50.9 Essential hypertension I10 Dyslipidemia E78.5 Additional Codes INGRID-7 Assessment Billing - INGRID-7 Assessment Tool: INGRID-7 Assessment 97278 ([id number]) Assessment & Plan Assessment & Plan (1) Type 2 diabetes mellitus with diabetic neuropathy, with long-term current use of insulin: Code(s): E11.40 - Type 2 diabetes mellitus with diabetic neuropathy, unspecified; Z79.4 - long term care social worker (current) use of insulin Category: Medical Plan: Diabetes mellitus controlled with a hemoglobin A1c at 6.8%. Continue metformin 1000 mg twice a day and Lantus 10 units at bedtime with insulin lispro t.i.d. a.c. via sliding scale coverage. (2) Degenerative disc disease, thoracic: Code(s): M51.34 - Other intervertebral disc degeneration, thoracic region Category: Medical Plan: Continue taking Tylenol arthritis alternating with tramadol as needed for treatment arthritic pain mainly in her mid back. May try wearing a lumbar support to help stabilize spine. (3) Microcytic anemia: Code(s): D50.9 - Iron deficiency anemia, unspecified Category: Medical Plan: Advised to eat an iron rich diet, may take [id number] ferrous sulfate 325 mg once a day. Repeat CBC and iron profile in 10/05/2024 (4) Essential hypertension: Code(s): I10 - Essential (primary) hypertension Category: Medical Plan: Blood pressure stable and controlled on present treatment. Will continue on spironolactone 25 mg daily, losartan 50 mg once a day and metoprolol succinate ER 25 mg daily, takes furosemide as needed for intermittent episodes of pedal edema (5) Dyslipidemia: Code(s): E78.5 - Hyperlipidemia, unspecified Category: Medical Plan: Fasting lipids are within normal limits continue with rosuvastatin 5 mg 3 times a week Orders: Orders Aspartate Amino Transferase 09/16/24 E11.40 - Type 2 diabetes mellitus with diabetic neuropathy, unspecified, E78.5 - Hyperlipidemia, unspecified, I10 - Essential (primary) hypertension, I50.42 - Chronic combined systolic (willie estive) and diastolic (congestive) heart failure, K29.50 - Unspecified chronic gastritis without bleeding, Z79.01 - shelter (current) use of anticoagulants, Z79.4 - long term care social worker (current) use of insulin Alanine Aminotransferase 09/16/24 E11.40 - Type 2 diabetes mellitus with diabetic neuropathy, unspecified, E78.5 - Hyperlipidemia, unspecified, I10 - Essential (primary) hypertension, I50.42 - Chronic combined systolic (congestive) and diastolic (congestive) heart failure, K29.50 - Unspecified chronic gastritis without bleeding, Z79.01 - shelter (current) use of anti coagulants, Z79.4 - long term care social worker (current) use of insulin Basic Metabolic Panel Fasting 09/16/24 E11.40 - Type 2 diabetes mellitus with diabetic neuropathy, unspecified, E78.5 - Hyperlipidemia, unspecified, I10 - Essential (primary) hypertension, I50.42 - Chronic combined systolic (congestive) and diastolic (congestive) heart failure, K29.50 - Unspecified chronic gastritis without bleeding, Z79.01 - shelter (current) use of anticoagulants, Z79.4 - shelter (current) use of insulin Complete Blood Count Auto Diff 05/14/24 E11.40 - Type 2 diabetes mellitus with diabetic neuropathy, unspecified, E78.5 - Hyperlipidemia, unspecified, I10 - Essential (primary) hypertension, I50.42 - Chronic combined systolic (congestive) and diastolic (congestive) heart failure, K29.50 - Unspecified chronic gastritis without bleeding, Z79.01 - long term care social worker (current) use of anticoagulants, Z79.4 - long term care social worker (current) use of insulin IRON PROFILE 09/16/24 D50.9 - Iron deficiency anemia, unspecified Hemoglobin A1c 09/16/24 E11.40 - Type 2 diabetes mellitus with diabetic neuropathy, unspecified, E78.5 - Hyperlipidemia, unspecified, I10 - Essential (primary) hypertension, I50.42 - Chronic combined systolic (congestive) and diastolic (congestive) heart failure, K29.50 - Unspecified chronic gastritis without bleeding, Z79.01 - long term care social worker (current) use of anticoagulants, Z79.4 - shelter (current) use of insulin Lipid Panel 09/16/24 E11.40 - Type 2 diabetes mellitus with diabetic neuropathy, unspecified, E78.5 - Hyperlipidemia, unspecified, I10 - Essential (primary) hypertension, I50.42 - Chronic combined systolic (congestive) and diastolic (congestive) heart failure, K29.50 - Unspecified chronic gastritis without bleeding, Z79.01 - shelter (current) use of anticoagulants, Z79.4 - shelter (current) use of insulin Vitamin D 25-OH Total 09/16/24 E11.40 - Type 2 diabetes mellitus with diabetic neuropathy, unspecified, E78.5 - Hyperlipidemia, unspecified, I10 - Essential (primary) hypertension, I50.42 - Chronic combined systolic (congestive) and diastolic (congestive) heart failure, K29.50 - Unspecified chronic gastritis without bleeding, Z79.01 - shelter (current) use of anticoagulants, Z79.4 - long term care social worker (current) use of insulin
[2024-05-14 11:42] VITALS: BP 102/60; PULSE 92; RESP 16; TEMP 36.4; O2SAT 96; BMI 24.4
--- OUTSIDE RECORDS SUMMARY | 2024-05-14 14:38 | XMS_ITS | Continuity of Care Document ---
Author Organization [facility] ter Address [address] [place] [id number]- Care Team Providers Care Reed Dipper Name Role Phone Bonnie DUVALL, Patricia Hilliard Primary Care Physician Encounter [facility] Date(s): 05/13/24 - 05/13/[address] [address]- Discharge Disposition: A-D/C Home Attending Physician: Aristeo Wadsworth MD Admitting Physician: Aristeo Wadsworth MD Referring Physician: Aristeo Wadsworth MD Encounter Type: Disch Daystay Allergies, Adverse Reactions, Alerts Substance Criticality Severity Reaction Reaction Severity Status Cortisporin Ophthalmic Unable to assess criticality Persistent Moderate eye irritation Active Tambocor Unable to assess criticality Persistent Moderate Active Biaxin Unable to assess criticality Persistent Moderate Active Vicodin Unable to assess criticality Persistent Moderate Active Demerol HCl Unable to assess criticality Persistent Moderate supresses appetite Active Adhesive Bandage 1 Unable to assess criticality Persistent Moderate blisters Active Latex Unable to assess criticality Persistent Moderate blister Active 1pt allergic to bandaids Medications Co Q-10 = 100 mg, By Mouth, Daily, 0 Refills, Maintenance, 10/03/22 10:20:00 AM EDT, Partial fill upon patient request if the prescription is for a schedule II opioid drug. Start Date: 10/03/22 Status: Ordered Repeat number: 1 Eliquis 5 mg oral tablet 2 times a day, 0 Refills, Maintenance, 10/03/22 10:19:00 AM EDT, Partial fill upon patient request if the prescription is for a schedule II opioid drug. Start Date: 10/03/22 Status: Ordered Repeat number: 1 gabapentin 100 mg oral capsule 300 mg, 3, capsule, By Mouth, Daily, Refills 0, Maintenance, 05/15/23 11:09:00 AM EST, Partial fill upon patient request if the prescription is for a schedule II opioid drug. Start Date: 05/15/23 Status: Ordered Repeat number: 1 Gas-X = 80 mg, 3 times a day after meals and bedtime, 0 Refills, Maintenance, 05/05/24 4:03:00 PM EST, Partial fill upon patient request if the prescription is for a schedule II opioid drug. Start Date: 05/05/24 Status: Ordered Repeat number: 1 HumaLOG KwikPen 200 units/mL (Concentrated) subcutaneous solution = 20 units, Subcutaneous Injection, Daily at bedtime, 0 Refills, Maintenance, 10/03/22 10:19:00 AM EDT, Partial fill upon patient request if the prescription is for a schedule II opioid drug. Start Date: 10/03/22 Status: Ordered Repeat number: 1 Lasix 40 mg oral tablet 40 mg, 1, tablet, By Mouth, Daily, refills by cardiology, # 30 tablet, Refills 0, Tot. Refills 0, Maintenance, 10/11/23 8:02:00 AM EDT, Route to Pharmacy Electronically, [id number], Partial fill upon patient request if the prescription is for a schedule II opioid drug., 162.56, cm, 10/10/23 10:35:00 EDT, Height, 72.9, kg, 10/04/23 14:25:00 EDT, Dry Weight Start Date: 10/11/23 Stop Date: 11/10/23 Status: Ordered Quantity: 30.0 Unit: tablet Repeat number: 1 loratadine 10 mg oral tablet 10 mg, 1, tablet, By Mouth, Daily, # 30 tablet, Refills 0, Maintenance, 10/16/23 11:42:00 AM EDT, Partial fill upon patient request if the prescription is for a schedule II opioid drug. Start Date: 10/16/23 Status: Ordered Quantity: 30.0 Unit: tablet Repeat number: 1 losartan 50 mg oral tablet 1 tablet = 50 mg, By Mouth, Daily, 0 Refills, Maintenance, 10/03/22 9:48:00 AM EDT, Partial fill upon patient request if the prescription is for a schedule II opioid drug. Start Date: 10/03/22 Status: Ordered Repeat number: 1 metformin 1000 mg oral tablet 1 tablet, By Mouth, 2 times a day, # 180 tablet, 0 Refills, Maintenance, 08/19/09 3:02:01 PM EDT, Tablet Start Date: 08/19/09 Status: Ordered Quantity: 180.0 Unit: tablet Repeat number: 1 Metoprolol Succinate ER 25 mg oral tablet, extended release 1 tablet = 25 mg, By Mouth, Daily, # 30 tablet, 0 Refills, Maintenance, 05/15/23 11:10:00 AM EST, ERTablet, Partial fill upon patient request if the prescription is for a schedule II opioid drug. Start Date: 05/15/23 Status: Ordered Quantity: 30.0 Unit: tablet Repeat number: 1 pantoprazole 40 mg oral delayed release tablet TAKE 1 TABLET BY MOUTH DAILY Start Date: 05/15/23 Status: Ordered Repeat number: 1 PreserVision AREDS 1 tab, By Mouth, 2 times a day, 0 Refills, Maintenance, 10/03/22 10:22:00 AM EDT, Partial fill upon patient request if the prescription is for a schedule II opioid drug. Start Date: 10/03/22 Status: Ordered Repeat number: 1 rosuvastatin 5 mg oral tablet Every Sunday, Sunday and Sunday, 0 Refills, Maintenance, 10/03/22 9:48:00 AM EDT, Partial fill upon patient request if the prescription is for a schedule II opioid drug. Start Date: 10/03/22 Status: Ordered Repeat number: 1 spironolactone 25 mg oral tablet 25 mg, 1, tablet, By Mouth, Daily, # 30 tablet, Refills 0, Maintenance, 05/15/23 11:07:00 AM EST, Partial fill upon patient request if the prescription is for a schedule II opioid drug. Start Date: 05/15/23 Status: Ordered Quantity: 30.0 Unit: tablet Repeat number: 1 traMADol 50 mg oral tablet 1 tablet = 50 mg, By Mouth, 3 times a day, 0 Refills, Maintenance, 05/05/24 3:59:00 PM EST, Partial fill upon patient request if the prescription is for a schedule II opioid drug. Start Date: 05/05/24 Status: Ordered Repeat number: 1 Tylenol 8 HR Arthritis Pain = 650 mg, By Mouth, 3 times a day, 0 Refills, Maintenance, 05/05/24 3:58:00 PM EST, Partial fill upon patient request if the prescription is for a schedule II opioid drug. Start Date: 05/05/24 Status: Ordered Repeat number: 1 Problem List Condition Confirmation Course Effective Dates Status H ealth Status Informant Aortic stenosis Confirmed Active Atrial fibrillation Confirmed Active Cardiomyopathy Confirmed Active Diabetes mellitus Confirmed Active Hyperlipidemia Confirmed Active Hypertension Confirmed Active Vital Signs Most recent to oldest [Reference Range]: 1 2 3 Height 157 cm (05/13/24 10: AM) Weight 63 kg (05/13/24 10: AM) Oxygen Saturation [94-100 %] 93 % *L* (05/13/24 11:42 AM) 93 % *L* (05/13/24 11:30 AM) 92 % *L* (05/13/24 11:22 AM) Pulse Rate [55-90 bpm] 61 bpm (05/13/24 11:42 AM) 61 bpm (05/13/24 11:30 AM) 60 bpm (05/13/24:22 AM) Body Mass Index [18.5-24.99 kg/m2] 25.56 kg/m2 *H* (05/13/24: AM) Blood Pressure [90-138/55-84 mm Hg] 113/80mm Hg (05/13/24 11:42 AM) 123/54mm Hg (05/13/24 11:30 AM) 121/61mm Hg (05/13/24 11:22 AM) Respiratory Rate [16-30 br/min] 24 br/min (05/13/24 11:42 AM) 17 br/min (05/13/24 11:30 AM) 21 br/min (05/13/24 11:22 AM) Temperature [96.8-100.4 DegF] 98.9 DegF (05/13/24 11:18 AM) 97.8 DegF (05/13/24: AM) Liters per Minute 8 L/min (05/13/24 11:18 AM) Mode of Delivery (Oxygen) Room air (05/13/24 11:42 AM) Room air (05/13/24 11:30 AM) Room air (05/13/24 11:22 AM) Temperature Route Temporal (05/13/24 11:18 AM) Temporal (05/13/24 10:26 AM) Clinical Note * Event Display: GG EGD Please click on pdf link to open report History and physical note * Aristeo Wadsworth MD: PERFORM Event Display: History and Physical Hospital Authored Date: [id number] Patient: ??JIMI SUTTON ? Age:??83 Years?Sex:??Female?:??1940?? FOCUSED HISTORY & PHYSICAL EXAMINATION ?? Indication for Procedure: IM in??[facility]. ? Past Medical History: Problems?(Active Problems Only) ?? Cardiomyopathy ?(SNOMED CT: 373143964, Onset: --) Hyperlipidemia ?(SNOMED CT: 47424577, Onset: --) Atrial fibrillation ?(SNOMED CT: 81790058, Onset: --) Aortic valve stenosis ?(SNOMED CT: 500899711, Onset: --) Hypertensive disorder ?(SNOMED CT: 8561821423, Onset: --) Diabetes mellitus ?(SNOMED CT: 965096845, Onset: --)? Social History: No social history documented.? Family History: No Family History documented.? Medications: Medication List ? Active Medications ?Ordered ? Lactated Ringers Injection 1,000 mL: 100 mL/hr, IV Infusion. ?Prescribed ? Furosemide: 40 mg, 1 tablet, By Mouth, Daily, for 30 days, refills by ? cardiology, 30 tablet, 0 Refill(s). ?Documented ? Acetaminophen: 650 mg, By Mouth, 3 times a day, 0 Refill(s). ? apixaban: 2 times a day, 0 Refill(s). ? Gabapentin: 300 mg, 3 capsule, By Mouth, Daily, 0 Refill(s). ? Insulin Lispro: 20 units, Subcutaneous Injection, Daily at bedtime, 0 ? Refill(s). ? Loratadine: 10 mg, 1 tablet, By Mouth, Daily, 30 tablet, 0 Refill(s). ? Losartan: 50 mg, 1 tablet, By Mouth, Daily, 0 Refill(s). ? Metformin: 1 tablet, By Mouth, 2 times a day, 180 tablet. ? Metoprolol: 25 mg, 1 tablet, By Mouth, Daily, 30 tablet, 0 Refill(s). ? Multivitamin With Minerals: 1 tab, By Mouth, 2 times a day, 0 ? Refill(s). ? Pantoprazole: TAKE 1 TABLET BY MOUTH DAILY. ? Rosuvastatin: Every Sunday, Sunday and Sunday, 0 Refill(s). ? Simethicone: 80 mg, 3 times a day after meals and bedtime, 0 ? Refill(s). ? Spironolactone: 25 mg, 1 tablet, By Mouth, Daily, 30 tablet, 0 ? Refill(s). ? Tramadol: 50 mg, 1 tablet, By Mouth, 3 times a day, 0 Refill(s). ? Ubiquinone: 100 mg, By Mouth, Daily, 0 Refill(s). ? Medications Inactivated in the Last 72 Hours ? No medications found.? Allergies: Latex; Adhesive Bandage; Demerol HCl; Vicodin; Biaxin; Tambocor; Cortisporin Ophthalmic? Physical Examination: Vitals:?? No Vitals found for last 24 hours ? Lungs: _Speaking comfortably; not dyspneic. Heart: _Regular rhythm, no murmur or gallop. Neuro: _Alert & oriented x 3. Abdomen: _Soft, nontender nondistended. Bowel sounds normal. ?? Plan: Esophagogastroduodenoscopy with or without biopsy Note * Johan Burr RN: PERFORM Event Display: Discharge/Transfer Note Hospital Authored Date: [id number] Nursing Discharge Note Entered On: 05/13/2024 11:34 EST Performed On: 05/13/2024 11:27 EST by Johan Burr RN Nursing Discharge Note 2 Discharge Time : 05/13/2024 12:06 EST Johan Burr RN - 05/13/2024 12:06 EST Discharge Level of Care at Discharge : Home/Assisted/Foster Care Patient Left Unit Via : Wheelchair Patient Accompanied Off Unit with : Responsible adult DC Instructions Provided & Signed by Pt : Yes Patient Understands D/C Instructions : Yes Patient Instructions Discharge Signed : Yes Did Pt have Specialty Bed or Wound Vac : No Johan Burr RN - 05/13/2024 11:27 EST * Johan Burr RN: PERFORM Event Display: Patient Education/Instruction Authored Date: [id number] Inpatient Adult Discharge Instructions. [address] [id number] Name: JIMI SUTTON : 1940?? Visit: 05/13/2024 09:01?? Current Date: 05/13/2024 11:34 ?? Account: [id number]?? Inpatient Adult Discharge Instructions We would like to thank you for allowing us to assist you with your healthcare needs. The following includes patient education materials and information regarding your injury/illness. Our entire staffstrives to provide an excellent experience for our patients and their families. PLEASE ENSURE YOU FOLLOW-UP PER THE INSTRUCTIONS BELOW! ?? YOUR OPINION IS IMPORTANT TO US! Please complete the survey you may receive by mail or email. Your feedback will be used to make improvements to the healthcare experiences of our patients and their families. Surveys are administered by [facility] ?? If further treatment with your primary care physician or another doctor is recommended, it is important for you to keep the appointment. Call your primary care physician or return to the Emergency Department immediately if your condition worsens, fails to improve, or new symptoms develop. If you need to find a doctor, you can call [facility] Link for a referral at [phone] or toll free at [phone]-[employer] ([phone]) or log in to [email or web address].. ?? [facility], in keeping with [facility] guidance, no longer requires face masks for staff, patientsor visitors in most situations. Similiar to time spent indoors at other locations, there is the chance that you were exposed to repiratory viruses during your time with us (such as flu or COVID-19). If you develop symptoms concerning for a viral respiratory infection, please seek testing (and treatment if indicated) from your medical provider or home test kit. ?? You can view and manage your care through the patient portal or by using a health care willy of your choosing. [employer] is a website that allows you to securely view your medical information including your hospital discharge summary, office visit summaries, medications and follow-up visits. You can also request appointments, renew medications, and request access to your medical information using a health care willy of your choosing, or just ask a question. You can enroll at [email or web address] or register during your next office visit. You have been discharged from [facility], Patient Care Unit: ENDO??. If you have any questions regarding these instructions, including results of studies pending, afteryou leave, please call us and we will be happy to assist you 09/10. [facility] Nursing Unit Direct Phone Number, for 09/10 contact and results of studies pending ENDO [address] [place] [address] Your Care Team Attending Physician Aristeo Wadsworth MD?? Consulting Providers Aristeo Wadsworth MD?? Discharging Providers Aristeo Wadsworth MD Tests Performed Below is a partial list of the tests performed during your hospitalization. You may have had other tests and procedures not included in this list. Please discuss all test results with your provider. No tests performed during this visit.?? Primary Care Provider Patricia Nicole MD? Advance Directive Health Care Proxy on File Yes - Health Care Proxy Discharge Vitals Temperature: 98.9 DegF Height: 157 cm Pulse Rate: 66 bpm Weight: 63 kg Respiratory Rate: 19 br/min Body Mass Index:??25.56 kg/m2??High Systolic Blood Pressure:??150 mm Hg??High Body surface area: 1.66 Diastolic Blood Pressure: 78 mm Hg ?? Oxygen Saturation: 100 % ?? Studies Pending All studies ordered during this hospital stay have been completed unless listed below. Please discuss all pending results with your provider listed above in these instructions. ?? No incomplete studies found?? What to do next Instructions From Your Doctor ?? Orders?? Daystay Protocol, ??05/13/24 10:21:00 EST?? You Need to Schedule the Following Appointments Follow Up with??Patricia Nicole MD Where: [address] [place] [address]- Discharge Medications ROJELIOJIMI PULIDO :1940 Visit Date:05/13/2024 Medications: Please continue your medications until treatment is completed or stopped by your provider. Medications not listed below should be discontinued. Discuss any questions related to medications with your provider. What How Much When Instructions Next Dose Unchanged Acetaminophen (Tylenol 8 HR Arthritis Pain) 650 Milligram Oral 3 times a day Unchanged apixaban (Eliquis 5 mg oral tablet) Twice a day Unchanged Furosemide (Lasix 40 mg oral tablet) 1 tab(s) Oral Daily Duration: 30 Days refills by cardiology ?? Unchanged Gabapentin (gabapentin 100 mg oral capsule) 3 capsule Oral Daily Unchanged Insulin Lispro (HumaLOG KwikPen 200 units/ mL (Concentrated) subcutaneous solution) 20 unit(s) Subcutaneous Injection Daily at Bedtime Unchanged Loratadine (loratadine 10 mg oral tablet) 1 tab(s) Oral Daily Unchanged Losartan (losartan 50 mg oral tablet) 1 tab(s) Oral Daily Unchanged Metformin (metformin 1000 mg oral tablet) 1 tab(s) Oral Twice a day Unchanged Metoprolol (Metoprolol Succinate ER 25 mg oral tablet, extended release) 1 tab(s) Oral Daily Unchanged Multivitamin With Minerals (PreserVision AREDS) 1 tab Oral Twice a day Unchanged Pantoprazole (pantoprazole 40 mg oral delayed release tablet) TAKE 1 TABLET BY MOUTH DAILY ?? Unchanged Rosuvastatin (rosuvastatin 5 mg oral tablet) Sunday, Sunday and Sunday Unchanged Simethicone (Gas-X) 80 Milligram 3 times a day after meals and bedtime Unchanged Spironolactone (spironolactone 25 mg oral tablet) 1 tab(s) Oral Daily Unchanged Tramadol (traMADol 50 mg oral tablet) 1 tab(s) Oral 3 times a day Unchanged Ubiquinone (Co Q-10) 100 Milligram Oral Daily Prescription Given During Visit No new medications prescribed at time of discharge.?? Laboratory Results Below is a partial list of the most recent Laboratory test results done prior to this discharge. You may have had other tests and procedures not included in this list. Please discuss all test resultswith your provider. Allergies (NKA means No Known Allergies) Adhesive Bandage??(blisters) Biaxin Cortisporin Ophthalmic??(eye irritation) Demerol HCl??(supresses appetite) Latex??(blister) Tambocor Vicodin Problems Active Problems??(6) Aortic stenosis?? Atrial fibrillation?? Cardiomyopathy?? Diabetes mellitus?? Hyperlipidemia?? Hypertension?? Education Materials Below is the list of Educational Leaflet Providered with your Discharge Instructions. [employer] Patient Education - Surgery Medical Daystay Surgical Overnight Discharge Instructions?? [employer] Patient Education - Stomach Polyps?? Valuables and Belongings I fully understand and agree that [facility] accepts no responsibility for all my personal property including clothing, toilet articles, radios, jewelry, dentures, hearing aids, rings, money, or any other property that is in my possession or is brought to me after admission. I understand certain valuables may be placed in a hospital safe for a short period of time. I understand that the hospital is not liable for loss or damage due to accident, fire, or other natural occurrence while said property is in the safe. I accept full responsibility for any personal property that I keep with me, and will not hold the hospital responsible in case of loss or disappearance. I acknowledge that i have been encouraged to send valuables and belongings home. ? Other Discharge Information ? Case Management Discharge Plan?? Discharge Plan?? Discharge Level of Care at Discharge: Home/Assisted/Foster Care ?? Pulmonary Rehab Status?? Pulmonary Rehab Discharge Status?? Respiratory Rate: 19 br/min ? Common Emergency Awareness Tips IS IT A STROKE? Act FAST and Check for these signs: FACE Does the face look uneven? ARM Does one arm drift down? SPEECH Does their speech sound strange? TIME Call at any sign of stroke ?? Heart Attack Signs Chest discomfort: Most heart attacks involve discomfort in the center of the chest and lasts more than a few minutes, or goes away and comes back. It can feel like uncomfortable pressure, squeezing, fullness or pain. Discomfort in upper body: Symptoms can include pain or discomfort in one or both arms, back, neck, jaw or stomach. Shortness of breath: With or without discomfort. Other signs: Breaking out in a cold sweat, nausea, or lightheaded. Remember, MINUTES DO MATTER. If you experience any of these heart attack warning signs, call to get immediate medical attention! ?? Smoking can increase your chances of developing chronic health problems and can cause harmful effects to other family members in your house. If you smoke, you are strongly encouraged to quit. Please call [facility] Link at [phone] or [phone] ([phone]) or log in to [email or web address] for referrals to smoking cessation programs. ?? 715 Suicide & Crisis Lifeline is available 09/10 if you or someone you know needs to find a reason to keep living. By calling 742 you'll be connected to a skilled, trained counselor at a crisis center in your area. INPATIENT DISCHARGE INSTRUCTIONS SIGNATURE PAGE JIMI SUTTON Location:[facility] Registration Date and Time:05/13/2024 09:01 EST Primary Care Physician: Patricia Nicole MD, Attending Physician: Aristeo Wadsworth MD, JIMI SHANE, have received the above patient education materials/instructions and have verbalized understanding. If ambulance or transport services are being used I further acknowledge being given a choice of service. ?? If you need to contact me, please call me at this number: . Patient/Leather Splitter Name: Patient/Leather Splitter Signature: Relationship to Patient: Witness Name/Signature: Date: * Johan Burr RN: PERFORM Event Display: Patient Education Leaflets Authored Date: [id number] Surgery Medical Daystay Surgical Overnight Discharge Instructions ?? 295 Medical Daystay/Surgical Overnight Discharge Instructions ? Since your coordination and judgment may be altered by medication and/or anesthesia, a responsible adult must drive you home from the hospital. ? If you have received medication for pain or sedation while under our care, you should not drive, operate machinery, drink alcohol, or sign any legal documents for 24 hours.?? You should have someone with you at home tonight. ? Remain at home the day of discharge.?? You may be up and about unless otherwise instructed by your physician. ? You may resume your daily prescription medication schedule.?? Any depressant medication should be avoided for 24 hours unless otherwise instructed by your surgeon or anesthesiologist. ? Call your physician for a follow-up appointment.? If you experience unusual or severe pain not relied by your pain medication, excessive bleedingor drainage, persistent nausea and vomiting, excessive swelling or redness, foul odor from incisionsite or fever over 100.6F, you need to call your physician. ? A follow-up phone call by a nurse will be made the day after your procedure.?? If you have stayed with us over night, you will not be receiving a follow-up phone call. ? Nausea and vomiting are a common side effect of prescription pain medication.?? We recommend that pills are not taken on an empty stomach.?? While taking any prescription pain medication you should not drive or drink alcohol. ? * Johan Burr RN: PERFORM Event Display: Patient Education Leaflets Authored Date: [id number] Stomach Polyps ?? 674 ?? Stomach Polyps ??You must carefully read the Consumer Information Use and Disclaimer below in order to understand and correctly use this information?? The Basics Written by the doctors and editors at [facility]??What are stomach polyps?Stomach polyps are tiny growths that form on the inner lining of your stomach. They are also known as gastric polyps. Stomach polyps are most often found when a person has an upper endoscopy for another health reason. An upper endoscopy is a test that lets a doctor look at the lining of the upper digestivetract (figure 1).??Many stomach polyps do not cause any symptoms. But it is important to diagnose and treat them because some polyps can turn into cancer.??What causes stomach polyps?There aredifferent types of stomach polyps. They can be caused by different things. Stomach polyps might:? Be caused by another health condition ??? Examples include H. pylori infection and certain types of gastritis (irritation of the stomach). ??? Form near a sore or hole in the stomach wall ??? These can include peptic ulcers or surgical openings (for example, if a person has a feeding tube). ??? Be related to long- term use of a medicine called a proton pump inhibitor or PPI ??? These medic kush reduce the amount of acid the stomach makes. ??? Run in families ??? You might be more likely to have stomach polyps if you have family members who also have them. There are specific genes that can run in families that increase the risk of polyps. ??What are the symptoms of stomach polyps?Stomach polyps often cause no symptoms.When symptoms do happen, they can include belly pain, diarrhea, or throwing up. Some people have weight loss orblood in their vomit or bowel movements.??Large stomach polyps can block the opening from the stomach into the small intestine. They can also cause you to feel full without eating a lot of food.??Howare stomach polyps treated?When a doctor finds a stomach polyp, they will check it carefullyand look closely at the area around the polyp. The doctor might do a biopsy, which involves taking a sample of tissue to look at under a microscope. This way they can learn more about the type of polyp and the risk of it becoming cancer. They might also remove the polyp.??Treatment of stomach polyps depends on the number, type, size, and location of the polyps. Other things that might guide treatment include your age and risk for stomach cancer. (Your risk depends on your health, including whether you have gastritis, and whether you have had relatives with cancer.)??Depending on your situation, your doctor might recommend:? Removing the polyp or polyps right away ??? Checking a polyp to see if it changes over time ??? Doing regular tests to look for new polyps ??Depending on what hascaused your polyps, your doctor might recommend other treatment, too. For example, you might need treatment for an H. pylori infection.??In rare cases, stomach polyps can be cancerous. In this case, the doctor might have to remove part or all of your stomach.??Can stomach polyps be prevented?If you have an H. pylori infection, getting treatment can lower your risk of developing new stomachpolyps.??All topics are updated as new evidence becomes available and our??peer review process??is complete.??This topic retrieved from [employer] on:??Aug 22, 2021.Topic 611445 Version 1.0Release: 30.2.4 - C30.156?2021??[employer] and/or its affiliates.??All rights reserved.Consumer Information Use and Disclaimer:This generalized information is a limited summary of diagnosis, treatment, and/or medication information. It is not meant to be comprehensive and should be used as a tool to helpthe user understand and/or assess potential diagnostic and treatment options. It does NOT include all information about conditions, treatments, medications, side effects, or risks that may apply to aspecific patient. It is not intended to be medical advice or a substitute for the medical advice, diagnosis, or treatment of a health care provider based on the health care provider's examination and assessment of a patient's specific and unique circumstances. Patients must speak with a health careprovider for complete information about their health, medical questions, and treatment options, including any risks or benefits regarding use of medications. This information does not endorse any treatments or medications as safe, effective, or approved for treating a specific patient. [employer] and its affiliates disclaim any warranty or liability relating to this information or the use thereof.The use of this information is governed by the Terms of Use, available at??https://www.Coup[employer].com.Letsgofordinner/en/know/ochdyxyi-lcppdmsxfjbgi-mbzjr?2021 [employer]. and its affiliates and/or licensors. All rights reserved.Last Updated 08/24/21? Patient Care team information Care Team Personnel Name: Tammie Villareal Position: [facility] RN Supv Member Role: Primary Care Nurse Name: Brenda Mejia RN Position: [facility] RN Member Role: Primary Care Nurse Name: Bonnie DUVALL , Patricia Hilliard Position: Reference Physician Member Role: PCP Address: [facility] [address] Telecom: Name: Delphine Wilcox RN Position: [facility] RN Member Role: Primary Care Nurse Name: Cailin Britton RN Position: S RN Member Role: Primary Care Nurse Name: Tejas Nation RN Position: [facility] RN Member Role: Primary Care Nurse Name: Chiquita Coleman RN Position: [facility] RN Member Role: Primary Care Nurse Name: Balaji Irvin RN Position: [facility] RN Member Role: Primary Care Nurse Name: Ariane García Position: [facility] MA Member Role: Primary Care Nurse Name: Tomeka Ruggiero RN Position: [facility] RN Member Role: Primary Care Nurse Care Team Related Persons Name: ERROL SUTTON Name: GAMALIEL MOHAN Insurance Providers Guarantor name: [employer] Health Plan Information #: 2 Payer: [facility] [employer] SUP Member Number: [id number] Policy Number: NA Group Number: NA Health Plan Information #: 1 Payer: MEDICARE PART B OUTPT Member Number: [id number] Policy Number: NA Group Number: NA
--- OUTSIDE RECORDS SUMMARY | 2024-05-14 14:38 | XMS_ITS ---
Author Organization [facility] Address [address] [place] [address] Care Team Providers Care Horologist Name Role Phone Bonnie DUVALL, Patricia De La Garza Primary Care Provider Un available Estuardo Mccarthy Unavailable [phone] Encounters Encounter Location Date Provider Diagnosis [address] [phone] 03/28/2024 Estuardo Mccarthy Plan Of Treatment Next Appt Details Provider Name:Estuardo Mccarthy , 07/01/2024 03:30:00 PM, [address] [place] [address], [phone], Progress Notes * Aminah KRAFT PDOB:[birth year] (83 yo F)Acc No.[id number]:03/28/2024 Progress Note Patient:?Aminah KRAFT Provider:?Estuardo Mccarthy DPM :1940???Age:83 Y???Sex:Female D ate:03/28/2024 Address:[address] [place] [address] [id number] Pcp:Amada Ferro Subjective: * Chief Complaints: * ??? * Medical History:? Objective: * Vitals:? Assessment: Plan: * Treatment: * Images: * The named appointment provid er may or may not be the originator of this progress note, and it is not deemed complete until electronically signed by the appointment provider. Sign off status: Pending * Provider:?Estuardo Mccarthy DPM Date:?2024 Generated for Douglas thomas/Juana/Lizandro on:?05/14/2024 02:37 PM EST
--- OUTSIDE RECORDS SUMMARY | 2024-05-14 14:38 | XMS_ITS ---
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
--- OUTSIDE RECORDS SUMMARY | 2024-05-14 14:38 | XMS_ITS | Clinical Summary ---
Author Organization [facility] Address [address] [place] [address] Phone Care Team Providers Care Director Of Reservations Name Role Phone Unavailable Primary Care Provider Unavailabl e Allergies Active Allergy Reactions Criticality Noted Date Comments Cephalexin Other (see comments) 07/13/2020 Clarithromycin Other (see comments) 07/13/2020 Latex Other (see comments) 07/13/2020 Lisinopril Other (see comments) 07/13/2020 Meperidine Other (see comments) 07/13/2020 Oxycodone-Acetaminophen Other (see comments) Sulfa Antibiotics Other (see comments) 07/14/19 21 Medications metoprolol succinate XL (TOPROL-XL) 50 MG 24 hr tablet Take 25 tablets by mouth 1 (one) time each day Active metFORMIN (GLUCOPHAGE) 1000 MG tablet Take 1 tablet by mouth 2 (two) times a day Active Insulin Lispro, 1 Unit Dial, 100 UNIT/ML solution pen-injector 3 times a day Active insulin glargine (Lantus) 100 UNIT/ML injection Inject 10 Units under the skin every night Active rosuvastatin (CRESTOR) 5 MG tablet TAKE 1 TABLET BY MOUTH 3 TIMES A WEEK 1 Active co-enzyme Q-10 30 MG capsule Take 30 mg by mouth 1 (one) time each day Active amLODIPine (NORVASC) 5 MG tablet TAKE 1 TABLET BY MOUTH ONCE DAILY 90 tablet 3 2 Active apixaban (Eliquis) 5 MG tablet Take 5 mg by mouth in the morning and 5 mg in the evening. Active losartan (COZAAR) 50 MG tablet Take 50 mg by mouth 1 (one) time each day Active gabapentin (NEURONTIN) 100 MG capsule Take 100 mg by mouth in the morning and 100 mg in the evening and 100 mg before bedtime. Active hydroCHLOROthia zide 25 MG tablet Take 25 mg by mouth 1 (one) time each day Active spironolactone (ALDACTONE) 25 MG tablet Take 25 mg by mouth 1 (one) time each day Active pantoprazole (PROTONIX) 40 MG EC tablet Take 40 mg by mouth 1 (one) time each day before breakfast Do not crush, chew, or split. Active Active Problems Problem Noted Date Diagnosed Date Reduced ejection fraction co -occurrent and due to acute heart failure 12/23/2022 02/05/2023 Paroxysmal atrial fibrillation 12/23/2022 1 04/07/2022 Iron deficiency anemia 12/23/2022 Gastro-esophageal reflux disease without esophag itis 12/23/2022 02/05/2023 Acute respiratory failure 12/23/20222022 Hyperkalemia 07/25/2022 Polyneuropathy due to type 2 diabetes mellitus 0 08/16/2021 Acquired hammer toe of left foot 08/16/2021 Chronic kidney disease, stage 2 (mild) Proteinuria 07/13/2020 Renal disorder due to type 2 diabetes mellitus 0 07/13/2020 Hypertensive renal disease 07/13/2020 Chronic kidney disease stage 1 07/13/2020 Immunizations Name Administration Dates Next Due Influenza (IM) Preservative Free 01/21/2021 Influenza Split High Dose Preservative Free IM 0 11/24/2013 Moderna SARS-COV-2 01/28/2021 Pneumococcal Polysaccharide 02/23/2013 Family History Medical History Relation Comments Diabetes Father Diabetes Mother Heart disease Mother Pacemaker Cancer Sibling younger sister - ovarian Relation Status Comments Father Mother Sibling Social History Tobacco Use Types Packs/Day Years Used Date Smoking Tobacco: Former Alcohol Use Standard Drinks/Week Comments No 0 (1 standard drink = 0.6 oz pur e alcohol) Comments Unknown Sex and Gender Information Value Date Recorded Sex Assigned at Not on file Legal Sex Female 5:07 PM EST Gender Identity Not on file Sexual Orientation Not on file Last Filed Vital Signs Vital Sign Reading Time Taken Comments Blood Pressure 122/58 08/06/2023 2:16 PM EDT Pulse 79 08/06/2023 2:16 PM EDT Temperature - - Respiratory Rate - - Oxygen Saturation 95% 08/06/2023 2:16 PM EDT Inhaled Oxygen Concentration - - Weight 73.8 kg (162 lb 9.6 oz) 08/06/2023 2:16 P M EDT Height 162.6 cm (5' 4 ) 07/15/2018 12:01 PM EDT Body Mass Index 27.91 07/15/2018 12:01 PM EDT Plan of Treatment Upcoming Encounters Date Type Department Care Team (Late st Contact Info) Description 08/25/2024 1:00 PM EDT Office Visit [facility] [address] [place] [phone] Gume Moyer MD [address] [facility] [address] [place] [address] Health Maintenance Due Date Last Done Comments Pneumococcal Vaccine: 65+ Years (2 of 2 - PCV) 02/23/2014 02/23/2013 Diabetes: Ophthalmology Exam 04/19/2020 Diabetes: Pedal Pulse Checked 04/19/2020 Diabetes: Sensory Foot Exam 04/19/2020 Diabetes: Visual Foot Exam 04/19/2020 Diabetes: Hemoglobin A1C 03/20/2023 12/18/2022 Influenza Vaccine (#1) 2023 , 11/24/2013 Hepatitis B Vaccine Aged Out No longe r eligible based on patient's age to complete [place] [address] [facility] MEDICARE [facility] MEDICARE
--- OUTSIDE RECORDS SUMMARY | 2024-05-14 14:38 | XMS_ITS | Clinical Summary ---
Author Organization [facility] Address [address] [place] [address] Care Team Providers Care Heel Finisher Name Role Phone Patricia Nicole MD Primary Care Provider [phone] Allergies Active Allergy Reactions Criticality Noted Date Comments Cephalexin Other (See Comments) 07/13/2020 Latex Rash/Dermatitis,Othe r (See Comments) Low 07/13/2020 Lisinopril Other (See Comments) 07/13/2020 Sulfa Antibiotics Other (See Comments) Low 07/14/19 21 GI upset Medications Medication Sig Dispensed Refills Start Date End Date Status amLODIPine (NORVASC) 5 MG tablet Take 1 tablet (5 mg total) by mouth daily. 11/22/2022 Active apixaban (Eliquis) 5 MG tablet Take 1 tablet (5 mg total) by mouth 2 times a day. 10/03/2022 Active losartan (COZAAR) 50 MG tablet Take 1 tablet (50 mg total) by mouth daily. 10/03/2022 Active rosuvastatin (CRESTOR) 5 MG tablet Take 1 tablet (5 mg total) by mouth daily. 10/03/2022 Active metoPROLOL SUCCINATE (TOPROL-XL) 25 MG 24 hr tablet Take 1 tablet (25 mg total) by mouth daily. 11/22/2022 Active metFORMIN (GLUCOPHAGE) 1000 MG tablet Take 1 tablet (1,000 mg total) by mouth 2 times a day. Active insulin glargine (Lantus) 100 units/mL injection Inject 0.08-0.1 mL (8-10 Units total) under the skin nightly. 10/03/2022 Active Insulin Lispro (HumaLOG KwikPen) 200 UNIT/ML CONCENTRATED prefilled pen injection 0 Refills, Maintenance, 10/03/22 10:19:00 EDT, Partial fill upon patient request if the prescription is for a schedule II opioid drug. 10/03/2022 Active gabapentin (NEURONTIN) 100 MG capsuleIndications: Controlled type 2 diabetes mellitus with diabetic mononeuropathy, with long-term current use of insulin ([facility]) Take 1 capsule (100 mg total) by mouth 3 (three) times a day. 90 capsule 3 12/24/2022 Active hydroCHLOROthiazide (HYDRODIURIL) 25 MG tabletIndications:C HF (congestive heart failure) ([facility]),Primary hypertension,Reduce d ejection fraction concurrent with and due to acute heart failure ([facility]) Take 1 tablet (25 mg total) by mouth daily. 30 tablet 3 12/24/2022 Active melatonin 3 MG Tab tabletIndications:P rimary insomnia Take 2 tablets (6 mg total) by mouth nightly. 60 tablet 3 12/24/2022 Active PANTOprazole (PROTONIX) 40 MG EC tabletIndications:G astroesophageal reflux disease without esophagitis Take 1 tablet (40 mg total) by mouth 2 (two) times a day. 60 tablet 3 12/24/2022 Active spironolactone (ALDACTONE) 25 MG tabletIndications:C HF (congestive heart failure) ([facility]),Primary hypertension,Reduce d ejection fraction concurrent with and due to acute heart failure ([facility]) Take 1 tablet (25 mg total) by mouth every morning with breakfast. 30 tablet 3 12/24/2022 Active Active Problems Problem Noted Date Diagnosed Date Reduced ejection fraction co ncurrent with and due to acute heart failure 12/23/2022 Acute hypoxic respiratory failure 12/23/2022 Controlled type 2 diabetes m ellitus with diabetic mononeuropathy, with long-term current use of insulin 12/23/2022 Paroxysmal atrial fibrillation 12/23/2022 Iron deficiency anemia 12/23/2022 Gastroesophageal reflux disease without esophagi tis 12/23/2022 Resolved Problems Problem Noted Date Diagnosed Date Resolved Date Paroxysmal atrial fibrillati on with rapid ventricular response 12/19/2022 12/23/2022 Hypertensive emergency 12/19/202212/23 Social History Tobacco Use Types Packs/Day Years Used Date Smoking Tobacco: Never Assessed Overall Financial Resource Strain (CARDIA) Answe r Date Recorded How hard is it for you to pa y for the very basics like food, housing, medical care, and heating? Not hard at all 12/18/2022 Hunger Vital Sign Answer Date Recorded Within the past 12 months, y ou worried that your food would run out before you got the money to buy more. Never true 12/19/19 23 Within the past 12 months, t he food you bought just didn't last and you didn't have money to get more. Never true 12/18/2022 PRAPARE - Transportation Answer Date Re corded In the past 12 months, has l ack of transportation kept you from medical appointments or from getting medications? No 04/2022 In the past 12 months, has l ack of transportation kept you from meetings, work, or from getting things needed for daily living? No 12/18/2022 Housing Stability Vital Sign Answer Abdiaziz e Recorded In the last 12 months, was t here a time when you were not able to pay the mortgage or rent on time? No 12/18/2022 In the last 12 months, how many places have you lived? 1 12/18/2022 In the last 12 months, was t here a time when you did not have a steady place to sleep or slept in a care home (including now)? No 12/18/2022 Sex and Gender Information Value Date Recorded Sex Assigned at Female 12/18/2022 12:35 AM EDT Gender Identity Female 12/18/2022 12:35 AM EDT Sexual Orientation Heterosexual (straight) 12/18 12:35 AM EDT Last Filed Vital Signs Vital Sign Reading Time Taken Comments Blood Pressure 111/59 12/24/2022 8:22 AM EDT Pulse 83 12/24/2022 8:22 AM EDT Temperature 36.9 ??C (98.4 ??F) 12/24/2022 2:44 AM ED T Respiratory Rate 18 12/24/2022 8:22 AM EDT Oxygen Saturation 94% 12/24/2022 8:22 AM EDT Inhaled Oxygen Concentration - - Weight 68.7 kg (151 lb 7.3 oz) 12/24/2022 6:49 A M EDT Height - - Body Mass Index - - Plan of Treatment Health Maintenance Due Date Last Done Comments Foot Exam 1948 Lipid Panel 1950 Ophthalmology Exam 1950 DTaP/Tdap/Td Vaccines (1 - Tdap) 1957 Pneumococcal Vaccines 50+ (1 of 2 - PCV) 1957 Zoster (Shingles) Vaccine (1 of 2) 1988 DXA Bone Density (Females,Ages 65 and older) 08/24/2003 RSV Vaccine 60 years and older and Patients (1 - 1-dose 75+ series) 2013 Hemoglobin A1C 06/19/2023 12/18/2022 Influenza Vaccine 10/18/2023 COVID-19 Vaccine ( season) 2023 01/22/2022, 01/28/2021 Creatinine with GFR 12/25/2023 12/24/2022, 12/23/2022, 12/22/2022, Additional history exists Hepatitis B Vaccines Aged Out No long er eligible based on patient's age to complete this topic Procedures Procedure Name Priority Date/Time Associated Diagnosis Comments BASIC METABOLIC PANEL Routine 12/24/2022 6:14 AM EDT HEMOGLOBIN A1C WITH ESTIMATED AVERAGE GLUCOSE Routine 12/18/2022 3:24 AM EDT from Last 3 Months or Most Recently Relevant to Health Maintenance Results * (ABNORMAL) Basic Metabolic Panel (Early AM) (12/24/2022 6:14 AM EDT) Glucose 161(H) 65 - 99 mg/dL 12/24/2022 7:23 AM [facility] Comment:Fasting: <100 mg/dL, Non-Fasting: <200 mg/dL (ADA 2005) Blood Urea Nitrogen (BUN) 14 8 - 21 mg/dL 12/24/2022 7:23 AM [facility] Creatinine 0.6 0.4 - 1.1 mg/dL 12/24/2022 7:23 AM [facility] eGFR 88 >59 12/24/2022 7:23 AM [facility] Comment:CKD-EPI (2020) in mL /min/1.73 sq meters. Sodium 137 136 - 145 mmol/L 12/24/2022 7:23 AM EDT [facility] Potassium 3.8 3.4 - 5.3 mmol/L 12/24/2022 7:23 AM T [facility] Chloride 101 98 - 107 mmol/L 12/24/2022 7:23 AM EDT [facility] CO2 28 22 - 33 mmol/L 12/24/2022 7:23 AM EDT [facility] Anion Gap 8 7 - 17 12/24/2022 7:23 AM EDT [facility] Calcium 9.3 8.7 - 10.5 mg/dL 12/24/2022 7:23 AM T [facility] BUN/Creatinine Ratio 23 10.0 - 25.0 Ratio 12/24/2022 7:23 AM T [facility] Blood specimen (specimen) (Plasma/Serum) 12/24/2022 6:14 AM EDT 12/24/2022 6:43 AM EDT Silvestre Juarez MD [facility] See Below [facility] [address] [place] [address] * (ABNORMAL) Hemoglobin A1c with Estimated Average Glucose (12/18/2022 3:24 AM EDT) Hemoglobin A1C 7.5(H) <5.7 % 12/18/2022 4:47 AM EDT [facility] Comment: A1c% ? Interpretation 5.7 - 6.0 ?Increase risk of diabetes 6.1 - 6.4 ?Higher risk of diabetes > or = 6.5 ?? Consistent with diabetes Diabetes Care, 33(Supp 1):S1-S61, 2010 Estimated Average Glucose 169 mg/dL 12/18/2022 4:47 AM EDT [facility] Blood specimen (specimen) Blood specimen / Unknown 12/18/2022 3:24 AM EDT 12/18/2022 3:40 AM EDT Chiquita Adler APRN [facility] See Below [facility] [address] [place] [address] from Last 3 Months or Most Recently Relevant to Health Maintenance Advance Directives * Full Code (Latest Code Status on File) Date Activated Date Inactivated Comments 12/18/2022 2:12 AM Question Answer Comments Decision Thoroughly Discussed with: Unable to Di scuss Care Teams Heel Finisher Relationship Specialty Start Date End Date Patricia Nicole MD [address] [place] [address] [place] [address] PCP - General Internal Medicine 12/18/22
--- OUTSIDE RECORDS SUMMARY | 2024-05-14 14:38 | XMS_ITS ---
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 Name Role Phone Bonnie DUVALL, Patricia De La Garza Primary Care Provider Un available Estuardo Mccarthy Unavailable [phone] Allergies Allergen (clinical drug ingredient) Drug/Non Drug Allergy documented on EMR Reaction Allergy Type Onset Date Status furosemide Furosemide Unknown Drug Allergy Activ e Latex Latex rash Allergy Active REASON FOR VISIT At Risk Footcare, Toe Irritation, Ingrown Nail Medications Medication SIG (Take, Route, Frequency, Duration) Notes Start Date End Date Status Warfarin Sodium 2 MG Oral for 75 Not-Taking iron Not-Taking Tylenol every 6 hours Not-Taking OxyCONTIN PRN Not-Taking Penicillin temp 5 days Not-[place] ing Extra Depth Orthopedic Shoes (1 Pair) with Customized Heat Molded Multidensity Innersoles (3 Pair) as directed Dx: NIDDM/Polyneuropath y (E11.42), Hammertoe Foot Deformity (M20.41,M20.42), Preulcerative Skin Lesion(s) (L85.1 03/02/2023 Active hydroCHLOROthiazide 25 MG 1 tablet in th e morning Orally Once a day Not-Taking Citracal + D Twice a day Not-T aking Ferrocite 324 MG 1 tablet Orally Three times a Week for 30 day(s) Not-Taking Vitamin B1-B12 Injec once a Month Active Rosuvastatin Calcium 5 MG Oral for 90 Active Spironolactone 25 MG Oral for 90 Active metFORMIN HCl 1000 MG Oral for 90 Active Metoprolol Succinate ER 25 MG 1 tablet Orally Once a day Active PreserVision AREDS A ctive CoQ-10 100 MG 1 capsule with a meal Orally Once a day for 30 day(s) Active Digoxin 125 MCG Oral for 90 Ac tive eliquis Active Estrace Active Magnesium 500 MG Orally Once a day Active Lantus Active HumaLOG Active Losartan Potassium 50 MG 1 tablet Orally Once a day for 30 day(s) Active amLODIPine Besylate 5 MG Oral for 90 Active Pantoprazole Sodium 40 MG 1 tablet Orall y Once a day Active Jardiance 10 MG 1 tablet Orally Once a day Active Lasix 40 MG 1 tablet Orally Once a day Active Gabapentin Active Stool Softener Activ e Social History Tobacco Use: Social History Observation Description Date Details (start date - stop date) Never Smoker NA - NA Alcohol Screen Question Answer Notes Did you have a drink containing alcohol in the p ast year? No Points 0 Interpretation Negative Tobacco use other than smoking: Question Answer Notes Are you an other tobacco user? No Tobacco Control (Standard) Question Answer Notes Tobacco use: Nonsmoker Additional Findings: Tobacco non-user Current no nsmoker Vital Signs Height 5 ft 4in in 03/31/2024 Weight 154 lbs 03/31/2024 BMI 26.43 kg/m2 03/31/2024 Blood pressure systolic 122 mm Hg 03/31/19 25 Blood pressure diastolic 70 mm Hg 025 Procedures Procedure Date Ordered Date Performed Result Body Sit e 25855-DWDWMMX NAIL, 1-5 03/31/2024 N/A 72471-Wcaoilqc Plate 03/31/2024 N/A 97543-BQBK SKIN LESIONS, 2 TO 4 03/31/2024 N/A M7989-MXXCMRAM DYSTROPHIC NAILS ANY # 03/31/2024 N/A Encounters Encounter Location Date Provider Diagnosis [facility] [address] [address] 03/31/2024 Estuardo Mccarthy Type 2 diabetes mellitus with diabetic polyneuropathy E11.42 ; Tinea unguium B35.1 ; Other hammer toe(s) (acquired), right foot M20.41 ; Other hammer toe(s) (acquired), left foot M20.42 and Ingrown nail L60.0 Assessments Encounter Date Diagnosis (ICD Code) Assessment Notes Treatment Notes Treatment Clinical Notes Section Notes 03/31/2024 Type 2 diabetes mellitus with diabetic polyneuropathy (ICD-10 - E11.42) 03/31/2024 Tinea unguium (ICD-10 - B35.1) 03/31/2024 Other hammer toe(s) (acquired), right foot (ICD-10 - M20.41) Patient Educated with: DIABETIC FOOT CARE INSTRUCTIONS. pdf (DIABETIC FOOT CARE INSTRUCTIONS. pdf) 03/31/2024 Other hammer toe(s) (acquired), left foot (ICD-10 - M20.42) 03/31/2024 Ingrown nail (ICD-10 - L60.0) Plan Of Treatment Treatment Notes Assessment Notes Other hammer toe(s) (acquired), right fo ot Patient Educated with: DIABETIC FOOT CARE INSTRUCTIONS.pdf (DIABETIC FOOT CARE INSTRUCTIONS.pdf) Pending Test Test Name Order Date [id number]-KLGCHCV NAIL, 1-5 03/31/2024 64385-Agexwfue Plate 03/31/2024 90325-IQQG SKIN LESIONS, 2 TO 4 03/31/19 M0623-NDVYJVSD DYSTROPHIC NAILS ANY # Next Appt Details Follow Up: prn, Reason: Provider Name:Estuardo Mccarthy , 07/01/2024 03:30:00 PM, [address] [place] [address], [phone], Procedure Notes * Category Sub-Category Detail Notes Nail Avulsion Procedure A fine sterile e levator was placed between the eponychium, nail fold, and nail plate to separate the structures. A sterile nail splitter, and/or sterile 316 blade, was then used to longitudinally section the nail along its entire length through the eponychium to the area under the nail fold. The offending portion of nail was from the nail bed with a rolling action and then removed with a hemostat. No underlying bone was identified. There was minimal bleeding as hemostasis was achieved through the temporary use of either a digital tourniquet or the aforementioned local with epinephrine. A bacitracin sterile dressing was applied. Local wound aftercare instructions were discussed and dispensed. The patient was informed of both conservative and future surgical procedures to prevent recurrence. Tylenol or Motrin was recommended for pain or discomfort ([address]), DIABETES: Pt was advised as to the risk of delayed or nonhealing due to diabetes. Pt is to call the office with any questions, concerns, or complications Anesthesia was deferred - NEURO CONNIE: patient has medically documented neuropathic condition affecting sensation Location Lateral nail border, T5 Keratoma Treatment Parring or Cutting o f Benign Hyperkeratotic Lesion(s) (-56) 2-4 Lesions - Due to the at risk nature of the patients medical condition as documented in the exam findings, performance of this keratoderma treatment is medically necessary as its management by an unskilled/untrained nonprofessional would put this patients foot and overall health at risk. Therefore, the benign hyperkeratotic lesions, ( 2) in total, locations as stated and described in the exam ( Medial plantar, IPJ, TA, Medial plantar, IPJ, T5), were pared, and/or cut utilizing a sterile 15 blade, tissue nippers, and/or power dremel instrumentation by the physician of record - 17773 Debride Nails 1-5 Procedure: Due to the cli nical pathology outlined in the exam findings, performance of this nail treatment is medically necessary as its management by an unskilled/untrained nonprofessional would put this patients foot and overall health at risk. Therefore, debridement to affected nail(s), as described in exam ( TA, T5), was performed exclusively by the physician of record to reduce/remove overall nail length, girth, thickness, subungual debris, and necrotic tissue, by manual and/or electrical means through the use of a nail nipper and/or dremel stylegrinder, to a more viable healthy nail plate or bed tissue 5 nails or fewer in number. Silver nitrate was used for any petechial bleeding as necessary. Definitive antifungal treatment options, both pharmaceutical and surgical, have been reviewed and discussed with the patient. The patient solely prefers the use of intermittent/as needed professional debridement services for their nail condition and understands that additional periodic treatments may be required as necessary to maintain effective symptomatic relief - 00592 Nail Reduction Nail Reduction (-27) Trimming o f all dystrophic nails - Due to the at risk nature of the patients medical condition as documented in the exam findings, performance of this nail treatment is medically necessary as its management by an unskilled/untrained nonprofessional would put this patients foot and overall health at risk. Therefore, the dystrophic nails, in locations as stated and described in the exam ( T1, T2, T3, T4, T6, T7, T8, T9), were debrided by the phisician of record to reduce/remove overall nail length and girth, by manual and electrical means with use of a nail nipper and/or dremel, to more viable healthy nail plate or bed tissue - G0127 Progress Notes * Aminah KRAFT PDOB:[birth year] (83 yo F)Acc No.[id number]:03/31/2024 Progress Note Patient:?Aminah KRAFT P Provider:?Estuardo Mccarthy DPM :1940???Age:83 Y???Sex:Female D ate:03/31/2024 Address:[address] [place] [address], [place], [place] Pcp:Amada Ferro Subjective: * Chief Complaints: * ???At Risk FootcareToe Irrit ationIngrown Nail * HPI: ???At Risk footcare:?Pt States Last PCP Visit:?Date?12/05/2023 States has an appt with PCP soon - 04/02 ???Toe pain:?Location:?B/L feet.?Duration:?several years.?Course:?worse.?Aggravated by:?shoes, any pressure.?Treatments:?change in shoes.? * ROS:?General/Constitutional:?Nausea?denies.?Vomiting?denies.?Hunger Thirst?denies.?Loss appetite?denies.?Chills?denies.?Fatigue?denies.?Fever?denies.?Night Sweats?denies.?Unexplained weight loss?denies.?Unexplained weight gain?denies.?HEENTM:?Dentures?denies.?Dizziness?denies.?Glasses/contacts?denies.?Retinopathy?den ies.?Blurred/double vision?denies.?TMJ?denies.?Discharge/drainage?denies.?Implants?denies.?Sore throat?denies.?Dental implants?denies.?Hard of hearing ?admits.?Difficulty chewing/swallowing/speaking?denies.?Nose bleeds?denies.?Sore mouth?denies.?Respiratory:?On O xygen?denies.?Pneumonia/pleurisy?denies.?Bronchitis?denies.?Emphysema?denies.?Co ughing?denies.?Cough blood?denies.?Shortness of breath?denies.?Wheezing?denies.?Cardiovascular:?Pacemaker?denies.?MVP?denies.?WPW?denies.?CHF?denies.?Heart attack?denies.?Septal defect?denies.?Rapid beat?denies.?Chest pain ?denies.?Atrial Fib.?admits.?Murmur/Palpitations?denies.?Gastrointestinal:?Hemorrhoids?denies.?Stomach/Abdominal pain?denies.?Dark blood stool?denies.?Irritable bowel ?denies.?Constipation?denies.?Diarrhea?denies.?Hematology:?Swelling?admits.?Clots?denies.?Varicose Veins?denies.?Bruising?admits, on anticoagulants.?Bleeding problem?admits, on anticoagulants.?Genitourinary:?Blood urine?denies.?Frequent/Painfu/urination/bladder control?denies.?Kidney stones?denies.?Infection (UTI)?denies.?Nephropathy?denies.?sex trans dis (STD)?denies.?Prostate?denies.?Musculoskeletal:?Hammertoes?admits.?Bunions?denies.?Back Pain?denies.?Muscle Cramps/ Resting?admits.?Muscle cramps / walking?denies.?Generalized aches and pains?denies.?Weakness?admits.?Integ.:?Gilbert?denies.?Scars?denies.?Corns/calluses?admits.?Ingrown nails?admits.?Painful nails?denies.?Open Sores?denies.?Rashes?denies.?Neurologic:?Difficulty sleeping?denies.?Brain disorder?denies.?Numbness?admits.?Balance t rouble?admits.?Confusion?denies.?Fainting/blackouts?denies.?Tingling?denies.?Liang mors?denies.? * Medical History:? * Surgical History:?cataract s urgery 2019kidney stones removal ndoscopy 05/15/23back surgery, broken in 3 places 02/2024 * Hospitalization/Major Diagno stic Procedure:?urgent care -UTI given antiboitic 10/24/2021[facility] [place] 2 compound fractures back 5 days test done Rehab 2 weeks 12/12/21[facility] [place] - Nuclear exam done 2022[facility] - [facility]F [facility] ER / ICU 08/29- * Family History:?Mother: dece ased, diagnosed with Unspecified essential hypertension.?Father: , diagnosed with Diabetic - NIDDM, Unspecified essential hypertension.?Spouse: .? * Social History:?Tobacco Use:?Tobacco use other than smoking?Are you an other tobacco user??No ?Tobacco Control (Standard)?Tobacco use:?Nonsmoker ?Additional Findings: Tobacco non-user?Current nonsmoker ???Drugs/Alcohol:?Drugs?Have you used drugs other than those for medical reasons in the past 12 months??No ?Alcohol Screen?Did you have a drink containing alcohol in the past year??No ?Points?0 ?Interpretation?Negative ???Miscellaneous:?Caffeine: yes, decaff tea, 1-2 cups per day. ?Children: yes, 2. ?Exercise: no. ?Marital status: . ?Occupation: Retired. * Medications:?TakingStool Sof tener Jardiance 10 MG Tablet 1 tablet Orally Once a day Lasix 40 MG Tablet 1 tablet Orally Once a day Gabapentin Pantoprazole Sodium 40 MG Tablet Delayed Release 1 tablet Orally Once a day Lantus HumaLOG Losartan Potassium 50 MG Tablet 1 tablet Orally Once a day amLODIPine Besylate 5 MG Tablet Oral CoQ-10 100 MG Capsule 1 capsule with a meal Orally Once a day Digoxin 125 MCG Tablet Oral eliquis Estrace Magnesium 500 MG Capsule Orally Once a day metFORMIN HCl 1000 MG Tablet Oral Metoprolol Succinate ER 25 MG Tablet Extended Release 24 Hour 1 tablet Orally Once a day PreserVision AREDS Rosuvastatin Calcium 5 MG Tablet Oral Spironolactone 25 MG Tablet Oral Vitamin B1-B12 , Notes to Pharmacist: Injec once a MonthExtra Depth Orthopedic Shoes (1 Pair) with Customized Heat Molded Multidensity Innersoles (3 Pair) as directed Dx: NIDDM/Polyneuropathy (E11.42), Hammertoe Foot Deformity (M20.41,M20.42), Preulcerative Skin Lesion(s) (L85.1 Taking Stool Softener Taking Jardiance 10 MG Tablet 1 tablet Orally Once a day Taking Lasix 40 MG Tablet 1 tablet Orally Once a day Taking Gabapentin Taking Pantoprazole Sodium 40 MG Tablet Delayed Release 1 tablet Orally Once a day Taking Lantus Taking HumaLOG Taking Losartan Potassium 50 MG Tablet 1 tablet Orally Once a day Taking amLODIPine Besylate 5 MG Tablet Oral Taking CoQ-10 100 MG Capsule 1 capsule with a meal Orally Once a day Taking Digoxin 125 MCG Tablet Oral Taking eliquis Taking Estrace Taking Magnesium 500 MG Capsule Orally Once a day Taking metFORMIN HCl 1000 MG Tablet Oral Taking Metoprolol Succinate ER 25 MG Tablet Extended Release 24 Hour 1 tablet Orally Once a day Taking PreserVision AREDS Taking Rosuvastatin Calcium 5 MG Tablet Oral Taking Spironolactone 25 MG Tablet Oral Taking Vitamin B1-B12 , Notes to Pharmacist: Injec once a MonthTaking Extra Depth Orthopedic Shoes (1 Pair) with Customized Heat Molded Multidensity Innersoles (3 Pair) as directed Dx: NIDDM/Polyneuropathy (E11.42), Hammertoe Foot Deformity (M20.41,M20.42), Preulcerative Skin Lesion(s) (L85.1 Not-Taking/PRNhydroCHLOROthiazide 25 MG Tablet 1 tablet in the morning Orally Once a day Citracal + D Twice a day Ferrocite 324 MG Tablet 1 tablet Orally Three times a Week iron Tylenol , Notes to Pharmacist: every 6 hoursOxyCONTIN , Notes to Pharmacist: PRNPenicillin , Notes to Pharmacist: temp 5 daysWarfarin Sodium 2 MG Tablet Oral Medication List reviewed and reconciled with the patientNot- Taking/PRN hydroCHLOROthiazide 25 MG Tablet 1 tablet in the morning Orally Once a day Not-Taking/PRN Citracal + D Twice a day Not-Taking/PRN Ferrocite 324 MG Tablet 1 tablet Orally Three times a Week Not-Taking/PRN iron Not-Taking/PRN Tylenol , Notes to Pharmacist: every 6 hoursNot-Taking/PRN OxyCONTIN , Notes to Pharmacist: PRNNot-Taking/PRN Penicillin , Notes to Pharmacist: temp 5 daysNot-Taking/PRN Warfarin Sodium 2 MG Tablet Oral Medication List reviewed and reconciled with the patient * Allergies:?Latex: rashFurose mideyes[Allergies Verified] Objective: * Vitals:?Ht: 5 ft 4in, Wt: 15 4, BMI: 26.43, Shoe size: 8.5, BP: 122/70 mm Hg, BS: 116, Ht-cm: 162.56 cm, Wt-k.85 kg. * ???Past Orders: Lab:HEMOGLOBIN A1C (GLYCOHEM OGBOBBIN) * Collection Date 02/07/2024 06/08/2023 05/18/2023 Collection Time 04:51 PM 01:03 PM 03:56 PM Order Date 02/07/2024 06/08/2023 05/18/2023 HEMOGLOBIN A1C % (HH) 6.7 7.2 7.2 * Examination: ???Ophthalmology Referral: ?DIABETES EYE EXAM?Procedure Performed:?Yes ?Date of Exam Performed?04/04/2023 ?Diabetic Retinopathy Screening:?Yes ?Findings of Diabetic Eye Exam:?no retinopathy?Neurological: ?SENSORY:?Neurological exam demonstrates, reduced light touch sensation, reduced sharp/dull pin prick discrimination , Pt relates, burning, B/L, 5.07 monofilament test performed at plantar aspects of 5 varied sites per foot shows sensation, reduced, B/L.?Nails: ?NAILS are:?Elongated, overgrown, dystrophic, lytic, greater than 3mm thick, discolored and friable with crumbly malodorous subungual debris, TA, T5, all other nails not described with characteristics as possessing mycosis are elongated, overgrown, and dystrophic ( T1, T2, T3, T4, T6, T7, T8, T9?).?Ingrown Nail: ?INSPECTION:?Reveals nail incurvation, dull pain on palpation due to neuropathy, groove hypertrophy, Lateral nail border, T5.?Dermatologic: ?SKIN FINDINGS:? Skin exam reveals Keratotic lesion(s) located at, Medial plantar, IPJ, TA, Medial plantar, IPJ, T5.?Orthopedic: ?MUSCLE STRENGTH:?5/5 all groups in a symmetrical fashion , B/L.?GAIT ABNORMALITY:?apropulsive , walker-assisted.?FOOT MORPHOLOGY:? Pes Planus structure, No Charcot collapse/destruction noted at MTJ.?DIGITAL DEFORMITIES:?Digital contracture, PIPJ, 2-5 B/L, incompl-reducible to push-up test, no over, nor underlapping , with evidence of shoe producing skin irritation.?FOOTWEAR:?worn, OT were inspected and noted to be severely worn , in poor condition not giving proper support at the present time , shoe gear properties exacerbate patients foot/toe deformity.?Vascular: ?DP PULSES (B):? 1/4, B/L.?PT PULSES (B):? 0/4, B/L.?CAPILLARY FILL TIME:? 3 secs. per digit, B/L.?TROPHIC CONDITION-TEXTURE/ELASTICITY/TURGOR/HAIR GROWTH (B):?normal, B/L.?TEMPERTURE GRADIENT (C):? decreased, cool to cool, proximal to distal, B/L.?PIGMENTATION:? rubrous, B/L.?EDEMA (C):? 1/4, non-pitting, without aching pain, B/L, Ankle(s).?CLAUDICATION (C):?denies, B/L.?REST PAIN:?denies, B/L.?General Examination: ?GENERAL APPEARANCE:?Reveals a pleasant, alert, well nourished, well- developed, well hydrated individual, who demonstrates proper attention to hygiene/body habitus, and is in no acute distress, Pt serves as own historian for office visit today.?ORIENTED:?person, place, and time.?FOOT EXAM:?Lower Extremity Neurological Exam performed:?Yes ?Visual exam of foot performed:?Yes ?Date?03/31/2024 ?Footwear Evaluation?Footwear Evaluation performed:?Yes??? Assessment: * Assessment: 1.?Tinea unguium - B35.1???2 .?Type 2 diabetes mellitus with diabetic polyneuropathy - E11.42 (Primary)???3.?Other hammer toe(s) (acquired), right foot - M20.41???Specify :Chronic problem, Stable (1=3,2=4)???4.?Other hammer toe(s) (acquired), left foot - M20.42???Specify :Chronic problem, Stable (1=3,2=4)???5.?Ingrown nail - L60.0???Specify :Lateral nail border,?T5??? Plan: * Treatment: 2.?Other hammer toe(s) (acqu ired), right foot? Notes: Patient Educated with: DIABETIC FOOT CARE INSTRUCTIONS.pdf (DIABETIC FOOT CARE INSTRUCTIONS.pdf)?? 3.?Ingrown nail?Procedure: 74163-Eavxjgfj Plate * Procedures:?Debride Nails 1-5:?Procedure:?Due to the clinical pathology outlined in the exam findings, performance of this nail treatment is medically necessary as its management by an unskilled/untrained nonprofessional would put this patients foot and overall health at risk. Therefore, debridement to affected nail(s), as described in exam (?TA,?T5), was performed exclusively by the physician of record to reduce/remove overall nail length, girth, thickness, subungual debris, and necrotic tissue, by manual and/or electrical means through the use of a nail nipper and/or dremel stylegrinder, to a more viable healthy nail plate or bed tissue 5 nails or fewer in number. Silver nitrate was used for any petechial bleeding as necessary. Definitive antifungal treatment options, both pharmaceutical and surgical, have been reviewed and discussed with the patient. The patient solely prefers the use of intermittent/as needed professional debridement services for their nail condition and understands that additional periodic treatments may be required as necessary to maintain effective symptomatic relief - 90824.?Keratoma Treatment:?Parring or Cutting of Benign Hyperkeratotic Lesion(s)?(-56) 2-4 Lesions - Due to the at risk nature of the patients medical condition as documented in the exam findings, performance of this keratoderma treatment is medically necessary as its management by an unskilled/untrained nonprofessional would put this patients foot and overall health at risk. Therefore, the benign hyperkeratotic lesions, ( 2) in total, locations as stated and described in the exam (?Medial plantar,?IPJ,?TA,?Medial plantar,?IPJ,?T5), were pared, and/or cut utilizing a sterile 15 blade, tissue nippers, and/or power dremel instrumentation by the physician of record - [id number].?Nail Avulsion:?Location?Lateral nail border,?T5.?Anesthesia?was deferred - NEUROPATHY: patient has medically documented neuropathic condition affecting sensation.?Procedure?A fine sterile elevator was placed between the eponychium, nail fold, and nail plate to separate the structures. A sterile nail splitter, and/or sterile 316 blade, was then used to longitudinally section the nail along its entire length through the eponychium to the area under the nail fold. The offending portion of nail was from the nail bed with a rolling action and then removed with a hemostat. No underlying bone was identified. There was minimal bleeding as hemostasis was achieved through the temporary use of either a digital tourniquet or the aforementioned local with epinephrine. A bacitracin sterile dressing was applied. Local wound aftercare instructions were discussed and dispensed. The patient was informed of both conservative and future surgical procedures to prevent recurrence. Tylenol or Motrin was recommended for pain or discomfort (71481), DIABETES: Pt was advised as to the risk of delayed or nonhealing due to diabetes. Pt is to call the office with any questions, concerns, or complications.?Nail Reduction:?Nail Reduction?(-27) Trimming of all dystrophic nails - Due to the at risk nature of the patients medical condition as documented in the exam findings, performance of this nail treatment is medically necessary as its management by an unskilled/untrained nonprofessional would put this patients foot and overall health at risk. Therefore, the dystrophic nails, in locations as stated and described in the exam (?T1, T2, T3, T4, T6, T7, T8, T9), were debrided by the phisician of record to reduce/remove overall nail length and girth, by manual and electrical means with use of a nail nipper and/or dremel, to more viable healthy nail plate or bed tissue - G0127.? * Procedure Codes:?G0127 LORENA ING DYSTROPHIC NAILS ANY #, Modifiers: XS 14094 Avulsion Plate, Modifiers: XS , [id number] DEBRIDE NAIL, 1-5, Modifiers: XS 75768 TRIM SKIN LESIONS, 2 TO 4, Modifiers: [...] have encouraged the patient to call the office.?Digital Surgery:?Digital surgery was discussed with the patient, We elected to try conservative treatment at the present time, due to the patients medical history and increased asssociated post-operative risks.?Digital Treatment:?HT- I explained to the patient the possible etiologies of Hammertoes, including genetics/foot type/shoegear/activity level/exercise routine and the risks/benefits of all the different treatment options for their pain including: No treatment at all, Rest, Ice, New/supportive/wider/deeper Shoegear, Digital Padding/Strapping/Taping/Bracing/Gel protective sleeves, Foot/Ankle AFO Bracing, Stretching exercises, Deep Tissue Massage, Arch support/shoe inserts with splay metatarsal padding, and Custom orthoses. I insisted that any digital devices be removed daily and not worn overnight for safety. The patient is to carefully examine the toes daily for any skin irritation while using any splinting or padding device. The advantages and disadvantages of each option were discussed and the patients questions re: shoegear, padding, custom vs prefabricated inserts, activity level, and consistency in home treatment regimens for optimal success were answered to their verbally confirmed satisfaction.?Shoe Gear Counseling:?SHOE Rx - The patient was counseled in great detail on their muscoloskeletal foot and toe deformities which coincided with the dermatological presentations visualized on exam. We discussed how their deformities put the integrity of their feet at risk for potential pedal complications which makes the accomidative diabetic shoes and cutomizable inserts medically necessary. We discussed the different shoe and insert treatment types and options, as well as the important advantages for adhering to regularly wearing these accomidative devices daily. The patient was made aware of the fact that a failure to abide by these recommedations may be deleterious to their foot health as they are able to prevent many pedal complications such as skin irritation, skin ulceration, infection, and even loss of toe/foot/leg/or life. Time was also spent with the patient dispensing and discussing proper diabetic footcare techniques including daily skin moisturization, daily foot inspection for any interruption in skin integrity including open lesions, or sign of infection such as redness/malodor/drainage/swelling. Also discussed and recommended were procedures regarding daily shoe inspection for the presence of internal foreign bodies as well as any visualized irregular shoe or insert wear. Patient questions re: shoes, inserts, and self foot inspections were answered to their satisfaction as the patient verbally confirmed a full understanding of the above information, Patient defers recommended Orthopedic shoes.? ??Screening/Special Tests:?Fall Risk?Screening:?No falls in the past year ?FALLS: Screening for Future Fall Risk?Have you had any falls with injury in the past year??No * Follow Up:?prn * Images: * Sign off status: Completed true * Provider:?Estuardo Mccarthy DPM Date:?2024 Generated for Douglas thomas/Juana/Lizandro on:?05/14/2024 02:38 PM EST History and Physical Notes * HPI (History of Present Illness) Category Sub-Category Detail Notes Category Not es Toe pain Location: B/L feet Duration: several years Course: worse Aggravated by: shoes, any pressure Treatments: change in shoes At Risk footcare Pt States Last PCP Visit: Date: 12/04 States has an appt with PCP soon - 04/02 Examination Category Sub-Category Detail Notes Category Not es Ingrown Nail INSPECTION: Reveals nail inc urvation, dull pain on palpation due to neuropathy, groove hypertrophy, Lateral nail border, T5 Neurological SENSORY: Neurological exa m demonstrates, reduced light touch sensation, reduced sharp/dull pin prick discrimination , Pt relates, burning, B/L, 5.07 monofilament test performed at plantar aspects of 5 varied sites per foot shows sensation, reduced, B/L Dermatologic SKIN FINDINGS: Skin exam reveal s Keratotic lesion(s) located at, Medial plantar, IPJ, TA, Medial plantar, IPJ, T5 Orthopedic GAIT ABNORMALITY: apropulsive , walker-as sisted FOOT MORPHOLOGY: Pes Planus structure , No Charcot collapse/destruction noted at MTJ FOOTWEAR: worn, OT were inspec berna and noted to be severely worn , in poor condition not giving proper support at the present time , shoe gear properties exacerbate patients foot/toe deformity DIGITAL DEFORMITIES: Digital contracture , PIPJ, 2-5 B/L, incompl-reducible to push-up test, no over, nor underlapping , with evidence of shoe producing skin irritation MUSCLE STRENGTH: 5/5 all groups in a symmetrical fashion , B/L General Examination GENERAL APPEARANCE: Reveals a pleasant, alert, well nourished, well-developed, well hydrated individual, who demonstrates proper attention to hygiene/body habitus, and is in no acute distress, Pt serves as own historian for office visit today FOOT EXAM: Lower Extremity Neurological Exa m performed:: Yes Visual exam of foot performed:: Yes Date: 03/31/2024 ORIENTED: person, place, and t verna Footwear Evaluation Footwear Evaluation performe d:: Yes Ophthalmology Referral DIABETES EYE EXAM Procedure Perform ed:: Yes ?Date of Exam Performed: 04/04/2023 Diabetic Retinopathy Screening:: Yes Findings of Diabetic Eye Exam:: no retin opathy Vascular DP PULSES (B): 1/4, B/L PT PULSES (B): 0/4, B/L CAPILLARY FILL TIME: 3 secs. per digit, B/L TEMPERTURE GRADIENT (C): decreased, cool to cool, proximal to distal, B/L TROPHIC CONDITION-TEXTURE/ELASTICITY/TURGOR/HAIR GROWTH (B): normal, B/L EDEMA (C): 1/4, non-pitting, wi thout aching pain, B/L, Ankle(s) CLAUDICATION (C): denies, B/L REST PAIN: denies, B/L PIGMENTATION: rubrous, B/L Nails NAILS are: Elongated, overg rown, dystrophic, lytic, greater than 3mm thick, discolored and friable with crumbly malodorous subungual debris, TA, T5, all other nails not described with characteristics as possessing mycosis are elongated, overgrown, and dystrophic ( T1, T2, T3, T4, T6, T7, T8, T9 )
--- OUTSIDE RECORDS SUMMARY | 2024-05-14 14:38 | XMS_ITS ---
Author Organization [facility] Address [address] [place] [address] Care Team Providers Care Transformer Repairer Name Role Phone Bonnie DUVALL, Patricia Primary Care Provider Chaz Dunaway [phone] ALLERGIES Allergen (clinical drug ingredient) Drug/Non Drug Allergy documented on EMR Reaction Allergy Type Onset Date Status Tambocor Unknown Drug Allergy Active acetaminophen / oxycodone Percocet Unknown Drug Allergy Active lisinopril Lisinopril Unknown Drug Allergy Activ e meperidine Demerol Unknown Drug Allergy Active Substance with 0-srmprpl-8-methylglutar yl-coenzyme A reductase inhibitor mechanism of action (substance) statin drugs (uncoded) Unknown Allergy Active Latex latex (uncoded) Unknown Allergy Acti ve REASON FOR VISIT Patient presents today for [...] Stool Softener & Laxative Active VITAL SIGNS Temperature 97.7 degrees Fahrenheit 03/07/20 23 Blood pressure systolic 000 mm Hg 03/07/20 23 Blood pressure diastolic 00 mm Hg 023 Height 64 in 03/07/2023 Weight 159 lb 1 oz lbs 03/07/2023 BMI 27.30 kg/m2 03/07/2023 Encounters Encounter Location Date Provider Diagnosis 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
--- OUTSIDE RECORDS SUMMARY | 2024-05-14 14:38 | XMS_ITS ---
Author Organization [facility] Address [address] [place] [address] Care Team Providers Care Technical Asst Name Role Phone Bonnie DUVALL, Patricia Primary Care Provider Chaz Dunaway [phone] REASON FOR VISIT in hospital Encounters Encounter Location Date Provider Diagnosis [facility] [address] [place] [address] 09/05/2023 Chaz Mendez PLAN OF TREATMENT No Information
--- OUTSIDE RECORDS SUMMARY | 2024-05-14 14:39 | XMS_ITS | Patient Health Record ---
Author Organization [facility] Address [address] [place] [address] Care Team Providers Care Pillar Worker Name Role Phone Bonnie DUVALL, Patricia Primary Care Provider Chaz Dunaway Unavailable [phone] ALLERGIES Allergen (clinical drug ingredient) Drug/Non Drug Allergy documented on EMR Reaction Allergy Type Onset Date Status Tambocor Unknown Drug Allergy Active acetaminophen / oxycodone Percocet Unknown Drug Allergy Active lisinopril Lisinopril Unknown Drug Allergy Activ e meperidine Demerol Unknown Drug Allergy Active Substance with 0-tjopjvc-5-methylglutar yl-coenzyme A reductase inhibitor mechanism of action (substance) statin drugs (uncoded) Unknown Allergy Active Latex latex (uncoded) Unknown Allergy Acti ve REASON FOR REFERRAL No Information MEDICATIONS Medication [...] (K31.7) Active confirmed Benign neoplasm of stomach (69464884) Problem Calculus of gallbladder without cholecystitis without obstruction (K80.20) Active confirmed 21800197 Problem Abdominal pain, epigastric (R10.13) Active confirmed 64934017 Problem Gastric polyps (K31.7) Active confirmed 55489201 Problem Gallstones (K80.20) Active confirmed Gallstones (999858466) Problem Gastritis (K29.70) Active confirmed Gastritis (5118028) Problem 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 424122314 Problem Upper abdominal pain (R10.10) Active confirmed Upper abdominal pain (81855970) Problem Chronic gastritis without bleeding, unspecified gastritis type (K29.50) Active confirmed 7572580 Problem Abdominal fullness (R19.8) Active confirmed Epigastric fullness (5189755) Encounters Encounter Location Date Provider Diagnosis [facility] [address] [place] [address] 09/05/2023 Chaz Mendez [facility] [address] [place] [address] 09/05/2023 Chaz Mendez PLAN OF TREATMENT Pending Test Test Name Order Date NUC HIDA SCAN 04/13/2022 Future Test Test Name Order Date COLONOSCOPY 06/12/2014 UPPER GI ENDOSCOPY 04/13/2022 Insurance Providers Payer Name Payer Address Payer Phone Subscriber Number Group Number Insured Name Patient Relationship to Insured Coverage Start Date Coverage End Date MEDICARE OF [place] [address] KALINA HUMMEL [id number] JIMI RAMOS Self - patient is the insured [facility] SUPPLEMENTAL PLAN [address] [place] [address] [id number] JIMI RAMOS Self - patient is the insured MEDICAL (GENERAL) HISTORY Medical History History ICD Code Colonoscopy 07-13-2003---neg. 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 Wadsworth at [facility] with removal of the adenomatous tissue in 10/2022 and is scheduled for a followup upper endoscopy in April of 2023 to reinspect the polypectomy sites. CHF 12/2022 at [facility]--she required intubation. She had to be [place] [facility] [place] [facility] at the time. Surgical History Surgery Date(Month/Year) Partial right lung resection by Dr. Maynard for a carcinoid tumor Right knee replacement 09/01/2013 Parathyroidectomy Disc surgery-lower back Deviated septum repair [facility] Hospitalization History Reason Date(Month/Year)
--- OUTSIDE RECORDS SUMMARY | 2024-05-14 14:39 | XMS_ITS ---
Author Organization [facility] Address [address] [place] [address] Care Team Providers Care Pr Intern Name Role Phone Bonnie DUVALL, Patricia De La Garza Primary Care Provider Un available Estuardo Mccarthy Unavailable [phone] REASON FOR VISIT A1C Encounters Encounter Location Date Provider [facility] [address] 04/01/2024 Estuardo Mccarthy Plan Of Treatment Next Appt Details Provider Name:Estuardo Mccarthy , 07/01/2024 03:30:00 PM, [address] [facility], [place], [address], Progress Notes * Aminah KRAFT PDOB:[birth year] (83 yo F)Acc No.[id number]:04/01/2024 Patient:?Aminah KRAFT :1940???Age:83 Y???Sex:Female Address:[address] [place] [address], [place], [address] * true * Date:? Generated for Kekei martha/Juana/eTransmitting on:?05/14/2024 02:38 PM EST
--- OUTSIDE RECORDS SUMMARY | 2024-05-14 14:39 | XMS_ITS | Patient Health Record ---
Author Organization [facility] Address [address] [place] [address] Care Team Providers Care Credit Reference Clerk Name Role Phone Bonnie DUVALL, Patricia De La Garza Primary Care Provider Un available Estuardo Mccarthy Unavailable [phone] Allergies Allergen (clinical drug ingredient) Drug/Non Drug Allergy documented on EMR Reaction Allergy Type Onset Date Status furosemide Furosemide Unknown Drug Allergy Activ e Latex Latex rash Allergy Active Results Component Value Reference Range Notes HEMOGLOBIN A1C (GLYCOHEMOGLO BIN) Reviewed date:03/31/2024 03:56:43 PM Interpretation: Performing Lab: Notes/Report: HEMOGLOBIN A1C % (HH) 7.2 HEMOGLOBIN A1C (GLYCOHEMOGLO BIN) Reviewed date:06/08/2023 01:04:09 PM Interpretation: Performing Lab: Notes/Report: HEMOGLOBIN A1C % (HH) 7.2 HEMOGLOBIN A1C (GLYCOHEMOGLO BIN) Reviewed date:04/01/2024 04:52:15 PM Interpretation: Performing Lab: Notes/Report: HEMOGLOBIN A1C % (HH) 6.7 Reason For Referral No Information Medications Medication SIG (Take, Route, Frequency, Duration) Notes Start Date End Date Status Extra Depth Orthopedic Shoes (1 Pair) with [...] times a Week for 30 day(s) Not-Taking Lantus Active HumaLOG Active Losartan Potassium 50 MG 1 tablet Orally Once a day for 30 day(s) Active amLODIPine Besylate 5 MG Oral for 90 Active Vitamin B1-B12 Injec once a Month Active Jardiance 10 MG 1 tablet Orally Once a day Active Lasix 40 MG 1 tablet Orally Once a day Active Gabapentin Active Pantoprazole Sodium 40 MG 1 tablet Orall y Once a day Active Stool Softener Activ e Rosuvastatin Calcium 5 MG Oral for 90 Active Spironolactone 25 MG Oral for 90 Active Magnesium 500 MG Orally Once a day Active metFORMIN HCl 1000 MG Oral for 90 Active Metoprolol Succinate ER 25 MG 1 tablet Orally Once a day Active PreserVision AREDS A ctive CoQ-10 100 MG 1 capsule with a meal Orally Once a day for 30 day(s) Active Digoxin 125 MCG Oral for 90 Ac tive eliquis Active Estrace Active Warfarin Sodium 2 MG Oral for 75 Not-Taking iron Not-Taking Tylenol every 6 hours Not-Taking OxyCONTIN PRN Not-Taking Penicillin temp 5 days Not-Urbano ing Immunizations Vaccine Route Administration Date Status Comme [...] Additional Findings: Tobacco non-user Current no nsmoker Problems Problem Type SNOMED Code ICD Code Onset Dates Problem Status W/U Status Risk Notes Problem Acquired hammer toe of right foot (6465757203320185 ) Other hammer toe(s) (acquired), right foot (M20.41) Active confirmed Response to treatment, Improvemen t Problem Acquired hammer toe of left foot (3517532691089737 ) Other hammer toe(s) (acquired), left foot (M20.42) Active confirmed Response to treatment, Improvemen t Problem Polyneuropathy due to type 2 diabetes mellitus (693558598) Type 2 diabetes mellitus with diabetic polyneuropathy (E11.42) Active confirmed Vital Signs Blood pressure diastolic 70 mm Hg 03/31/2024 Height 5 ft 4in in 03/31/2024 Blood pressure systolic 122 mm Hg 03/31/2024 Weight 154 lbs 03/31/2024 BMI 26.43 kg/m2 03/31/2024 Procedures Procedure Date Ordered Date Performed Result Body Sit e 32527-ELIWCKW NAIL, 1-5 06/08/2023 N/A 80655-XPGR SKIN LESIONS, 2 TO 4 06/08/2023 N/A C9706-XQSHSJXF DYSTROPHIC NAILS ANY # 06/08/2023 N/A 06987-FJFAERC NAIL, 1-5 09/14/2023 N/A 19325-MLTJ SKIN LESIONS, 2 TO 4 09/14/2023 N/A W3455-VXAASXVN DYSTROPHIC NAILS ANY # 09/14/2023 N/A 21375-TOWOOWQ NAIL, 1-5 12/14/2023 N/A 69501-TPOC SKIN LESIONS, 2 TO 4 12/14/2023 N/A E6429-SYODVXYI DYSTROPHIC NAILS ANY # 12/14/2023 N/A 19490-TBYEQNT NAIL, 1-5 03/31/2024 N/A 23661-Vchhhujd Plate 03/31/2024 N/A 66855-HDUK SKIN LESIONS, 2 TO 4 03/31/2024 N/A C9988-VBHAFZGZ DYSTROPHIC NAILS ANY # 03/31/2024 N/A Encounters Encounter Location Date Provider Diagnosis [address] [address] 06/08/2023 Estuardo Mccarthy Type 2 diabetes mellitus with diabetic polyneuropathy E11.42 ; Tinea unguium B35.1 ; Other hammer toe(s) (acquired), right foot M20.41 and Other hammer toe(s) (acquired), left foot M20.[address] [address] 09/14/2023 Estuardo Mccarthy Type 2 diabetes mellitus with diabetic polyneuropathy E11.42 and Tinea unguium B35.[address] [address] 12/14/2023 Estuardo Mccarthy Type 2 diabetes mellitus with diabetic polyneuropathy E11.42 and Tinea unguium B35.[address] [address] 03/31/2024 Estuardo Mccarthy Type 2 diabetes mellitus with diabetic polyneuropathy E11.42 ; Tinea unguium B35.1 ; Other hammer toe(s) (acquired), right foot M20.41 ; Other hammer toe(s) (acquired), left foot M20.42 and Ingrown nail L60.[address] [address] 03/21/2024 Estuardo Mccarthy [address] [address] 04/01/2024 Estuardo Mccarthy Assessments Encounter Date Diagnosis (ICD [...] 03/31/2024 Tinea unguium (ICD-10 - B35.1) 03/31/2024 Type 2 diabetes mellitus with diabetic polyneuropathy (ICD-10 - E11.42) 03/31/2024 Other hammer toe(s) (acquired), right foot (ICD-10 - M20.41) Patient Educated with: DIABETIC FOOT CARE INSTRUCTIONS. pdf (DIABETIC FOOT CARE INSTRUCTIONS. pdf) 06/08/2023 Other hammer toe(s) (acquired), right foot (ICD-10 - M20.41) Response to treatment,Impro vement 06/08/2023 Other hammer toe(s) (acquired), left foot (ICD-10 - M20.42) Response to treatment,Impro vement 03/31/2024 Other hammer toe(s) (acquired), left foot (ICD-10 - M20.42) 03/31/2024 Ingrown nail (ICD-10 - L60.0) Plan Of Treatment Pending Test Test Name Order Date 30698-UNOWGYA NAIL, 1-5 04/27/2020 31398-ERKQKES NAIL, 1-5 07/27/2020 34997-VQZDXEY NAIL, 1-5 11/02/2020 78798-ERZIFWZ NAIL, 1-5 02/04/2021 20737-JGUMQQU NAIL, -5 05/06/2021 60022-DIHMYQX NAIL, -5 08/02/2021 02567-PTGJWEK NAIL, 1-5 10/28/2021 92480-DZOHIMD NAIL, 1-5 02/03/2022 76381-NIOJOWU NAIL, 1-5 05/12/2022 97396-ZEKQXXU NAIL, 1-5 08/18/2022 44961-PGRQIHE NAIL, 1-5 11/24/2022 52621-ONOXEUT NAIL, 1-5 03/02/2023 97360-RKFFTVS NAIL, -5 06/08/2023 65165-RYSALBZ NAIL, -5 09/14/2023 37057-VHGHPZG NAIL, 1-5 12/14/2023 16710-SWGVUNS NAIL, 1-5 03/31/2024 58922-ULVKRZX NAIL, 1-5 01/20/2020 92906-Qpxoqwss Plate 03/31/2024 66614-Skvruiys Plate 08/18/2022 28726-VYGL SKIN LESIONS, 2 TO 4 05/06/19 22 63228-OZYE SKIN LESIONS, 2 TO 4 11/25/19 23 15447-HSYR SKIN LESIONS, 2 TO 4 08/19/19 23 43630-RXLZ SKIN LESIONS, 2 TO 4 05/12/19 23 74943-UPKI SKIN LESIONS, 2 TO 4 02/04/20 14920-HTFZ SKIN LESIONS, 2 TO 4 10/29/19 34066-FYEH SKIN LESIONS, 2 TO 4 08/03/19 71570-KLRO SKIN LESIONS, 2 TO 4 11/03/19 21 15434-QQAI SKIN LESIONS, 2 TO 4 02/05/20 21 33937-EVHX SKIN LESIONS, 2 TO 4 04/27/19 21 89661-SWXL SKIN LESIONS, 2 TO 4 07/28/19 21 24400-ODBQ SKIN LESIONS, 2 TO 4 03/31/19 25 98560-ALKB SKIN LESIONS, 2 TO 4 01/20/20 20 03856-NNDZ SKIN LESIONS, 2 TO 4 12/14/19 24 82734-RBNR SKIN LESIONS, 2 TO 4 09/14/19 24 93403-HNQC SKIN LESIONS, 2 TO 4 03/02/20 23 39204-NBEF SKIN LESIONS, 2 TO 4 06/08/19 24 Z8605-QZCMUCMD DYSTROPHIC NAILS ANY # X7674-BTXUAKNV DYSTROPHIC NAILS ANY # W5756-HTCWGMED DYSTROPHIC NAILS ANY # X8613-OAXWUQLP DYSTROPHIC NAILS ANY # C2074-FRWRAKHX DYSTROPHIC NAILS ANY # B6103-LNVPWHWH DYSTROPHIC NAILS ANY # V9861-OPXTOTSY DYSTROPHIC NAILS ANY # J2767-SXFBUSUU DYSTROPHIC NAILS ANY # J5528-DACNXOKJ DYSTROPHIC NAILS ANY # S4471-HRFCIZQT DYSTROPHIC NAILS ANY # T4142-DFUAYOMI DYSTROPHIC NAILS ANY # G3861-OPJKACPU DYSTROPHIC NAILS ANY # X3353-JMMKRHNI DYSTROPHIC NAILS ANY # Y4339-FFBPABIA DYSTROPHIC NAILS ANY # I2548-UFOMVWLP DYSTROPHIC NAILS ANY # U6339-XOHXBKCE DYSTROPHIC NAILS ANY # O5525-VITSOFNC DYSTROPHIC NAILS ANY # Next Appt Details Provider Name:Estuardo Mccarthy , 07/01/2024 03:30:00 PM, [address] [facility], [place], [address], Insurance Providers Payer Name Payer Address Payer Phone Subscriber Number Group Number Insured Name Patient Relationship to Insured Coverage Start Date Coverage End Date Medicare National [employer] [address] [place] [address] [id number] Sarah santillanAminah Self - patient is the insured 0 [employer] Secondary to Medicare [address] [place] [address] [id number] Guerajamil Amniah santillan Self - patient is the insured Medical (General) History Medical History History ICD Code Broken bones Heart disease - CHF High blood pressure Measles Mumps Chicken pox Bone implants/screws Transfusions type II diabetes Macular degeneration Surgical History Surgery Date(Month/Year) cataract surgery 2018 kidney stones removal 07/2020 endoscopy 05/15/23 back surgery, broken in 3 places 02/2024 Hospitalization History Reason Date(Month/Year) pulminary adect- [facility] [place] ICU 08/29-07/[address] [place] [address] - CHF Dec 2022 [facility] [place] exam done [facility] Fall 2 compound fractures back 5 da ys test done Rehab 2 weeks 12/12/21 urgent care -[facility]I given antiboitic 10/25/19
== END 2024-05-14 12:28 | disposition home or self-care (01) ==
PROVIDERS: PCP Internal Medicine; Visit Provider Internal Medicine
DX: E11.40 Type 2 diabetes mellitus with diabetic neuropathy, unspecified (principal); Z79.4 Long term (current) use of insulin; M51.34 Other intervertebral disc degeneration, thoracic region; D50.9 Iron deficiency anemia, unspecified; I10 Essential (primary) hypertension; E78.5 Hyperlipidemia, unspecified

== ENCOUNTER → 2024-05-14 11:37 | Outpatient (BNVA) | payer MEDICARE, SELFPAY | PROVIDERS: PCP Internal Medicine; Visit Provider Internal Medicine | DX: E11.40 Type 2 diabetes mellitus with diabetic neuropathy, unspecified (principal); Z79.4 Long term (current) use of insulin; M51.34 Other intervertebral disc degeneration, thoracic region; D50.9 Iron deficiency anemia, unspecified; E78.5 Hyperlipidemia, unspecified; I10 Essential (primary) hypertension | CPT/HCPCS: 96127; 99212 ==

== ENCOUNTER 2024-05-23 17:11 | Outpatient (REF) | payer MEDICARE, SELFPAY ==
--- OUTSIDE RECORDS SUMMARY | 2024-05-23 17:33 | XMS_ITS | Clinical Summary ---
Author Organization [facility] Address [address] [place] [address] Care Team Providers Care Motorcoach Driver Name Role Phone Patricia Nicole MD Primary Care Provider Allergies Active Allergy Reactions Criticality Noted Date [...] mononeuropathy, with long-term current use of insulin ([facility]) Take 1 capsule (100 mg total) by mouth 3 (three) times a day. 90 capsule 3 12/24/2022 Active hydroCHLOROthiazide (HYDRODIURIL) 25 MG tabletIndications:C HF (congestive heart failure) ([facility]),Primary hypertension,Reduce d ejection fraction concurrent with and due to acute heart failure ([facility]) Take 1 tablet (25 mg total) by [...] 25 MG tabletIndications:C HF (congestive heart failure) ([facility]),Primary hypertension,Reduce d ejection fraction concurrent with and due to acute heart failure ([facility]) Take 1 tablet (25 mg total) by [...] place to sleep or slept in a snf (including now)? No 12/18/2022 Sex and Gender [...] 65 - 99 mg/dL 12/24/2022 7:23 AM [facility] Comment:Fasting: <100 mg/dL, Non-Fasting: <200 mg/dL (ADA 2005) Blood Urea Nitrogen (BUN) 14 8 - 21 mg/dL 12/24/2022 7:23 AM [facility] Creatinine 0.6 0.4 - 1.1 mg/dL 12/24/2022 7:23 AM [facility] eGFR 88 >59 12/24/2022 7:23 AM [facility] Comment:CKD-EPI (2020) in mL /min/1.73 sq meters. Sodium 137 136 - 145 mmol/L 12/24/2022 7:23 AM EDT [facility] Potassium 3.8 3.4 - 5.3 mmol/L 12/24/2022 7:23 AM T [facility] Chloride 101 98 - 107 mmol/L 12/24/2022 7:23 AM EDT [facility] CO2 28 22 - 33 mmol/L 12/24/2022 7:23 AM EDT [facility] Anion Gap 8 7 - 17 12/24/2022 7:23 AM EDT [facility] Calcium 9.3 8.7 - 10.5 mg/dL 12/24/2022 7:23 AM T [facility] BUN/Creatinine Ratio 23 10.0 - 25.0 Ratio 12/24/2022 7:23 AM T [facility] Blood specimen (specimen) (Plasma/Serum) 12/24/2022 6:14 AM EDT 12/24/2022 6:43 AM EDT Silvestre Juarez MD [facility] See Below [facility] [address] [place] [address] * (ABNORMAL) Hemoglobin A1c with Estimated Average Glucose (12/18/2022 3:24 AM EDT) Hemoglobin A1C 7.5(H) <5.7 % 12/18/2022 4:47 AM EDT [facility] Comment: A1c% ? Interpretation 5.7 - 6.0 ?Increase risk of diabetes 6.1 - 6.4 ?Higher risk of diabetes > or = 6.5 ?? Consistent with diabetes Diabetes Care, 33(Supp 1):S1-S61, 2010 Estimated Average Glucose 169 mg/dL 12/18/2022 4:47 AM EDT [facility] Blood specimen (specimen) Blood specimen / Unknown 12/18/2022 3:24 AM EDT 12/18/2022 3:40 AM EDT Chiquita Adler APRN [facility] See Below [facility] [address] [place] [address] from Last 3 Months or Most Recently Relevant to Health Maintenance Advance Directives * Full Code (Latest Code Status on File) Date Activated Date Inactivated Comments 12/18/2022 2:12 AM Question Answer Comments Decision Thoroughly Discussed with: Unable to Di scuss Care Teams Motorcoach Driver Relationship Specialty Start Date End Date Patricia Nicole MD [address] [place] [address] NEIL CRUM [address] PCP - General Internal Medicine 12/18/22
--- OUTSIDE RECORDS SUMMARY | 2024-05-23 17:34 | XMS_ITS ---
Author Organization [facility] Address [address] [place] [phone] Care Team Providers Care Cone Cleaner Name Role Phone Bonnie DUVALL, Patricia De La Garza Primary Care Provider Un available Estuardo Mccarthy Unavailable [phone] Encounters Encounter Location Date Provider Diagnosis [address] [address] 03/28/2024 Estuardo Mccarthy Plan Of Treatment Next Appt Details Provider Name:Estuardo Mccarthy , 07/01/2024 03:30:00 PM, [address] [place] [address], [phone], Progress Notes * Aminah KRAFT PDOB:[birth year] (83 yo F)Acc No.[id number]:03/28/2024 Progress Note Patient:?Aminah KRAFT Provider:?Estuardo Mccarthy DPM :1940???Age:83 Y???Sex:Female D ate:03/28/2024 Address:[address] [place] [address] [id number] Pcp:Amada Ferro Subjective: * Chief Complaints: * ??? * Medical History:? Objective: * Vitals:? Assessment: Plan: * Treatment: * Images: * The named appointment provid er may or may not be the originator of this progress note, and it is not deemed complete until electronically signed by the appointment provider. Sign off status: Pending * Provider:?Estuardo Mccarthy DPM Date:?2024 Generated for Douglas thomas/Juana/Lizandro on:?05/23/2024 05:33 PM EST
--- OUTSIDE RECORDS SUMMARY | 2024-05-23 17:34 | XMS_ITS ---
Author Organization [facility] Address [address] [place] [address] Care Team Providers Care Undercoater Name Role Phone Bonnie DUVALL, Patricia De La Garza Primary Care Provider Un available Estuardo Mccarthy Unavailable [phone] Allergies Allergen (clinical drug ingredient) Drug/Non Drug [...] Ordered Date Performed Result Body Sit e 02171-CTYVGYF NAIL, 1-5 03/31/2024 N/A 89972-Zhubndyc Plate 03/31/2024 N/A 43353-BFFR SKIN LESIONS, 2 TO 4 03/31/2024 N/A X6682-GRXUNXJW DYSTROPHIC NAILS ANY # 03/31/2024 N/A Encounters Encounter Location Date Provider Diagnosis [facility] [address] [phone] 03/31/2024 Estuardo Mccarthy Type 2 diabetes mellitus [...] INSTRUCTIONS.pdf) Pending Test Test Name Order Date 53286-ZYTDMTJ NAIL, 1-5 03/31/2024 36989-Jicatgek Plate 03/31/2024 51208-XEVI SKIN LESIONS, 2 TO 4 03/31/19 Q2677-AOGMXAEY DYSTROPHIC NAILS ANY # Next Appt Details Follow Up: prn, Reason: Provider Name:Estuardo Mccarthy , 07/01/2024 03:30:00 PM, [address] [place] [address], [phone], Procedure Notes * Category Sub-Category Detail [...] Motrin was recommended for pain or discomfort (82751), DIABETES: Pt was advised as to the [...] instrumentation by the physician of record - 76594 Debride Nails 1-5 Procedure: Due to the [...] necessary to maintain effective symptomatic relief - 12781 Nail Reduction Nail Reduction (-27) Trimming o [...] * Aminah KRAFT PDOB:[birth year] (83 yo F)Acc No.[id number]:03/31/2024 Progress Note Patient:?Aminah KRAFT P Provider:?Estuardo Mccarthy DPM :1940???Age:83 Y???Sex:Female D ate:03/31/2024 Address:[address] [place] [address], [place], [place] Pcp:Amada Ferro Subjective: * Chief Complaints: * [...] Diagno stic Procedure:?urgent care -UTI given antiboitic 10/24/2021[facility]- Fall 2 compound fractures back 5 days test done Rehab 2 weeks 12/12/21[facility] - Nuclear exam done 2022[facility] - CHF Deculminary [facility] ER / ICU 08/29- * [...] INSTRUCTIONS.pdf (DIABETIC FOOT CARE INSTRUCTIONS.pdf)?? 3.?Ingrown nail?Procedure: 46069-Dyodoenz Plate * Procedures:?Debride Nails 1-5:?Procedure:?Due to the [...] necessary to maintain effective symptomatic relief - 68203.?Keratoma Treatment:?Parring or Cutting of Benign Hyperkeratotic Lesion(s)?(-56) [...] instrumentation by the physician of record - 50263.?Nail Avulsion:?Location?Lateral nail border,?T5.?Anesthesia?was deferred - NEUROPATHY: patient [...] Motrin was recommended for pain or discomfort (71006), DIABETES: Pt was advised as to the [...] ING DYSTROPHIC NAILS ANY #, Modifiers: XS 23759 Avulsion Plate, Modifiers: XS , [id number] DEBRIDE NAIL, 1-5, Modifiers: XS 14409 TRIM SKIN LESIONS, 2 TO 4, Modifiers: [...] for Douglas thomas/Juana/Lizandro on:?05/23/2024 05:33 PM EST History and Physical Notes * [...]
--- OUTSIDE RECORDS SUMMARY | 2024-05-23 17:34 | XMS_ITS ---
Author Organization [facility] Address [address] [place] [address] Care Team Providers Care Makeup Artistry Instructor Name Role Phone Bonnie DUVALL, Patricia Primary Care Provider Chaz Dunaway Unavailable [phone] Allergies Allergen (clinical drug ingredient) Drug/Non Drug Allergy documented on EMR Reaction Allergy Type Onset Date Status Lisinopril Unknown Drug Allergy Active meperidine Demerol Unknown Drug Allergy Active Substance with 5-mqfbwqb-8-methylglutar yl-coenzyme A reductase inhibitor mechanism of action (substance) statin drugs (uncoded) Unknown Allergy Active Latex latex (uncoded) Unknown Allergy Acti ve Tambocor Unknown Drug Allergy Active acetaminophen / oxycodone Percocet Unknown Drug Allergy Active REASON FOR VISIT Patient presents today for epigastric pain Medications Medication SIG (Take, Route, Frequency, Duration) Notes Start Date End Date Status Spironolactone 25 MG Oral for 30 I509,Unavai l able Active Pantoprazole Sodium 40 MG Oral [...] 04/13/2022 Active Stool Softener & Laxative Active Vital Signs Temperature 97.7 degrees Fahrenheit 03/07/20 23 Blood pressure systolic 000 mm Hg 03/07/20 23 Blood pressure diastolic 00 mm Hg 023 Height 64 in 03/07/2023 Weight 159 lb 1 oz lbs 03/07/2023 BMI 27.30 kg/m2 03/07/2023 Encounters Encounter Location Date Provider Diagnosis [facility] [address] [place] [address] 03/07/2023 Chaz Mendez 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 Wadsworth. Keep me posted with the results after you have it done. Overall, Jimi appears well and is not having any new or worrisome GI complaints. We did review her procedure from back in October during which the ampullary adenomas were removed. She seemed to have tolerated that well. We did review that those were strictly incidental findings and I don't think they were causing any symptoms. The previous abdominal pain that prompted the original endoscopy seems to have resolved itself. She remains on pantoprazole and I advised her to certainly continue that for any symptomatic relief of reflux as needed. I did advise her that she needs to have clearance by her cafeteria worker for the procedure at [facility] in April. I did advise her to call her cafeteria worker now to see about the clearance. I advised her to keep me posted as to the next endoscopy. If things otherwise remain well I will plan to see her in 6 months for a followup visit. I did advise her to certainly call prior to that if she has any problems or questions I can be of assistance with. Jimi and her were comfortable with this plan. Thank you again for allowing me to participate in Jimi's care. I shall continue to keep you advised of her progress. Plan Of Treatment Treatment Notes Assessment Notes Ampullary adenoma Get cardiology clear ance before you have the procedure with Dr. Wadsworth. Keep me posted with the results after you have it done. Next Appt Details Follow Up: 6 Months, Reason: Progress Notes * JIMI SUTTONDOB: [birth year] (82 yo F)Acc No.[id number]:03/07/2023 Progress Notes Patient:?JIMI SUTTON Provider:?Chaz Mendez MD :1940???Age:82 Y???Sex:Female D ate:03/07/2023 Address:[address] [place], [place] [id number] Pcp:Patricia Nicole MD Subjective: * Chief Complaints: * ???Patient presents today fo r epigastric pain * HPI: ???incontinence:? I saw Jimi in followup today in regard to her previous history of abdominal discomfort and a subsequent finding of an ampullary adenoma. She was accompanied by her . ?Since I last saw Jimi in August she did undergo an upper endoscopy at [facility] toward the end of October with Dr. Wadsworth. 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 Her previously known gastric polyps were also noted at that time. She has remained on a daily pantoprazole since then. From a GI standpoint she has been doing well. She enjoys a good appetite and denies any significant heartburn, dysphagia, nausea, nor vomiting. She does have occasional upper abdominal discomfort that seems to get better with some massage . She denies any associated symptoms such as jaundice or fevers. Her bowel movements are fairly regular and without any signs of bleeding. ?She does advise me that she has a followup endoscopy planned for April with Dr. Wadsworth to reinspect the areas of the previous adenomas that were removed in October. ?Of note, she does advise me that she had an episode of congestive heart failure requiring intubation in December. She had to be Medflighted by helicopter from [place] down to [facility]. She is currently being followed by Dr. Callahan for that. * ROS:?General/Constitutional:?Change in appetite?denies.?Chills?denies.?Fatigue?denies.?Ophthalmologic:?Comments?all negative.?ENT:?Admits?Decreased hearing,?Hearing aids bilaterally.?Respiratory:?hemoptysis?denies.?Cough?denies.?Cardiovascular:?Chest pain?denies.?Orthopnea?denies.?Gastrointestinal:?Comments?See HPI for details.?Genitourinary:?Comments?No incontinence.?Hematuria?denies.?Dysuria?denies.?Musculoskeletal:?Painful joints?denies.?Weakness?denies.?Skin:?Itching?denies.?Rash?denies.?Neurologic:?Headache?denies.?Seizures?denies.?Psychiatric:?Comments?all negative.? * Medical History:? 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 * Family History:?Father: dece ased, diagnosed with Diabetes.?Mother: , diagnosed with Diabetes.? No colorectal cancer. No family history of liver cancer. * Social History:?Tobacco Use:?Tobacco Use/Smoking?Are you a: former smoker , How long has it been since you last smoked?: > 10 years.?Drugs/Alcohol:?Alcohol Screen?Points: 0, Interpretation: Negative.?Miscellaneous:?Marital status: . Occupation: retired. ???Nonsmoker; no sig alcohol. * Medications:?TakingStool Sof tener & Laxative Citracal +D3 Melatonin Allergy Stool Softener 100 MG Capsule 1 capsule as needed Orally Once a dayVitamin B12 1000 MCG Tablet Extended Release 1 tablet Orally Once a dayCoQ-10 100 MG Capsule as directed Orally Losartan Potassium 50 MG Tablet 1 tablet Orally Once a dayamLODIPine Besylate 5 MG Tablet 1 tablet Orally Once a dayLantus 100 UNIT/ML Solution Subcutaneous metFORMIN HCl 1000 MG Tablet 1 tablet with meals Orally Twice a dayMetoprolol Succinate ER 25 MG Tablet Extended Release 24 Hour 1 tablet Orally Once a dayFerrocite 324 MG Tablet 1 tablet Orally 1 po qdHumaLOG KwikPen 200 UNIT/ML Solution Pen-injector Subcutaneous Rosuvastatin Calcium 5 MG Tablet TAKE 1 TABLET BY MOUTH 3 TIMES A WEEK Oral PreserVision AREDS - Capsule as directed Orally Magnesium 250 MG Tablet 1 tablet with a meal Orally Twice a dayhydroCHLOROthiazide 25 MG Tablet Oral Eliquis 5 MG Tablet 1 tablet Orally Twice a dayFamotidine 40 MG Tablet TAKE 1 TABLET BY MOUTH EVERY DAY AT BEDTIME Gabapentin 100 MG Capsule Oral , Notes: E1141,UnavailableSpironolactone 25 MG Tablet Oral , Notes: I509,UnavailablePantoprazole Sodium 40 MG Tablet Delayed Release Oral , Notes: K219,UnavailableTaking Stool Softener & Laxative Taking Citracal +D3 Taking Melatonin Taking Allergy Taking Stool Softener 100 MG Capsule 1 capsule as needed Orally Once a dayTaking Vitamin B12 1000 MCG Tablet Extended Release 1 tablet Orally Once a dayTaking CoQ-10 100 MG Capsule as directed Orally Taking Losartan Potassium 50 MG Tablet 1 tablet Orally Once a dayTaking amLODIPine Besylate 5 MG Tablet 1 tablet Orally Once a dayTaking Lantus 100 UNIT/ML Solution Subcutaneous Taking metFORMIN HCl 1000 MG Tablet 1 tablet with meals Orally Twice a dayTaking Metoprolol Succinate ER 25 MG Tablet Extended Release 24 Hour 1 tablet Orally Once a dayTaking Ferrocite 324 MG Tablet 1 tablet Orally 1 po qdTaking HumaLOG KwikPen 200 UNIT/ML Solution Pen-injector Subcutaneous Taking Rosuvastatin Calcium 5 MG Tablet TAKE 1 TABLET BY MOUTH 3 TIMES A WEEK Oral Taking PreserVision AREDS - Capsule as directed Orally Taking Magnesium 250 MG Tablet 1 tablet with a meal Orally Twice a dayTaking hydroCHLOROthiazide 25 MG Tablet Oral Taking Eliquis 5 MG Tablet 1 tablet Orally Twice a dayTaking Famotidine 40 MG Tablet TAKE 1 TABLET BY MOUTH EVERY DAY AT BEDTIME Taking Gabapentin 100 MG Capsule Oral , Notes: E1141,UnavailableTaking Spironolactone 25 MG Tablet Oral , Notes: I509,UnavailableTaking Pantoprazole Sodium 40 MG Tablet Delayed Release Oral , Notes: K219,UnavailableDiscontinuedFlax Seed Oil 1000 MG Capsule as directed Orally Estrace 0.1 MG/GM Cream as directed Vaginal , sunday and sundayCalcium + D 315-200 MG-UNIT Tablet 1 tablet with meals Orally Twice a dayMedication List reviewed and reconciled with the patientDiscontinued Flax Seed Oil 1000 MG Capsule as directed Orally Discontinued Estrace 0.1 MG/GM Cream as directed Vaginal , sunday and sundayDiscontinued Calcium + D 315-200 MG-UNIT Tablet 1 tablet with meals Orally Twice a dayMedication List reviewed and reconciled with the patient * Allergies:?TambocorPercocetD emerollatexstatin drugsLisinoprilyes[Allergies Verified] Objective: * Vitals:?Wt: 159 lb 1 oz, Ht: 64 in, BMI:27.30 Index, BP: 000/00 mm Hg, Temp: 97.7. * Examination: ???General Examination: ?GENERAL APPEARANCE:?pleasant, well nourished, well developed, in no acute distress.?EYES:?sclera non-icteric.?ORAL CAVITY:?mucosa moist.?NECK/THYROID:?no cervical lymphadenopathy, neck supple.?SKIN:?nonjaundiced, no spider angiomata.?HEART:?S1, S2 normal.?LUNGS:?clear to auscultation bilaterally.?ABDOMEN:?normal bowel sounds, no guarding or rigidity, no guarding or rigidity, no masses palpable, soft, nontender, nondistended.?EXTREMITIES:?no edema.?NEUROLOGIC:?alert and oriented.? 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 Overall, Jimi appears well and is not having any new or worrisome GI complaints. We did review her procedure from back in October during which the ampullary adenomas were removed. She seemed to have tolerated that well. We did review that those were strictly incidental findings and I don't think they were causing any symptoms. The previous abdominal pain that prompted the original endoscopy seems to have resolved itself. She remains on pantoprazole and I advised her to certainly continue that for any symptomatic relief of reflux as needed. I did advise her that she needs to have clearance by her cafeteria worker for the procedure at [facility] in April. I did advise her to call her cafeteria worker now to see about the clearance. I advised her to keep me posted as to the next endoscopy. If things otherwise remain well I will plan to see her in 6 months for a followup visit. I did advise her to certainly call prior to that if she has any problems or questions I can be of assistance with. Jimi and her were comfortable with this plan. Thank you again for allowing me to participate in Jimi's care. I shall continue to keep you advised of her progress. Plan: * Treatment: * Procedure Codes:?1036F TOBAC CO NON-ELBIM0864 BP SCR NOT PRFRM REC REASON NOS * Preventive Medicine:? ??Counseling:?Care goal follow-up plan:?Above Normal BMI Follow-up?Giving encouragement to exercise,?BMI management provided?Yes.? ??Urinary Incontinence:?Urinary Incontinence?Assessment:?Absent,?Plan of care documented:?No, reason not specified.? * Follow Up:?6 Months * * Sign off status: Completed true * Provider:?Chaz Mendez MD Date:? 023 Generated for Douglas thomas/Juana/Lizandro on:?05/23/2024 05:33 PM EST History and Physical Notes * HPI (History of Present Illness) Category Sub-Category Detail Notes Category Not es incontinence I saw Jimi in followup today in regard to her previous history of abdominal discomfort and a subsequent finding of an ampullary adenoma. She was accompanied by her . Since I last saw Jimi in August she did undergo an upper endoscopy at [facility] toward the end of October with Dr. Wadsworth. 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 Her previously known gastric polyps were also noted at that time. She has remained on a daily pantoprazole since then. From a GI standpoint she has been doing well. She enjoys a good appetite and denies any significant heartburn, dysphagia, nausea, nor vomiting. She does have occasional upper abdominal discomfort that seems to get better with some massage . She denies any associated symptoms such as jaundice or fevers. Her bowel movements are fairly regular and without any signs of bleeding. She does advise me that she has a followup endoscopy planned for April with Dr. Wadsworth to reinspect the areas of the previous adenomas that were removed in October. Of note, she does advise me that she had an episode of congestive heart failure requiring intubation in December. She had to be Medflighted by helicopter from [place] down to [facility]. She is currently being followed by Dr. Callahan for that. Examination Category Sub-Category Detail Notes Category Not es General Examination GENERAL APPEARANCE: pleasant , well [...]
--- OUTSIDE RECORDS SUMMARY | 2024-05-23 17:34 | XMS_ITS | Patient Health Record ---
[facility] Organization [facility] Address [address] [place] [address] Care Team Providers Care Field Health Officer Name Role Phone Bonnie DUVALL, Patricia De La Garza Primary Care Provider Un available Estuardo Mccarthy Unavailable [phone] Allergies Allergen (clinical drug ingredient) Drug/Non Drug [...] Problem Acquired hammer toe of right foot (3620910648255440 ) Other hammer toe(s) (acquired), right foot (M20.41) Active confirmed Response to treatment, Improvemen t Problem Acquired hammer toe of left foot (1028175536914876 ) Other hammer toe(s) (acquired), left foot (M20.42) Active confirmed Response to treatment, Improvemen t Problem Polyneuropathy due to type 2 diabetes mellitus (942369845) Type 2 diabetes mellitus with diabetic polyneuropathy (E11.42) Active confirmed Vital Signs Blood pressure diastolic 70 mm Hg 03/31/2024 Height 5 ft 4in in 03/31/2024 Blood pressure systolic 122 mm Hg 03/31/2024 Weight 154 lbs 03/31/2024 BMI 26.43 kg/m2 03/31/2024 Procedures Procedure Date Ordered Date Performed Result Body Sit e 00713-HOEGBKG NAIL, 1-5 06/08/2023 N/A 68848-YWYS SKIN LESIONS, 2 TO 4 06/08/2023 N/A G4548-EWKDFZYY DYSTROPHIC NAILS ANY # 06/08/2023 N/A 21079-KOFYOGP NAIL, 1-5 09/14/2023 N/A 28036-VVEG SKIN LESIONS, 2 TO 4 09/14/2023 N/A V5505-ZQXMOCVU DYSTROPHIC NAILS ANY # 09/14/2023 N/A 80543-ZHKPVTZ NAIL, 1-5 12/14/2023 N/A 90246-XMGD SKIN LESIONS, 2 TO 4 12/14/2023 N/A Y5533-HHPBZFBW DYSTROPHIC NAILS ANY # 12/14/2023 N/A 86225-CSCRAEA NAIL, 1-5 03/31/2024 N/A 65079-Cuiegmwv Plate 03/31/2024 N/A 69350-DADX SKIN LESIONS, 2 TO 4 03/31/2024 N/A Q4754-LWFAISRU DYSTROPHIC NAILS ANY # 03/31/2024 N/A Encounters Encounter Location Date Provider Diagnosis [address] [address] 06/08/2023 Estuardo Mccarthy Type 2 diabetes mellitus with diabetic polyneuropathy E11.42 ; Tinea unguium B35.1 ; Other hammer toe(s) (acquired), right foot M20.41 and Other hammer toe(s) (acquired), left foot M20.[address] [address] 09/14/2023 Estuardokumar Mccarthy Type 2 diabetes mellitus with diabetic polyneuropathy E11.42 and Tinea unguium B35.[address] [address] 12/14/2023 Estuardokumar Mccarthy Type 2 diabetes mellitus with diabetic polyneuropathy E11.42 and Tinea unguium B35.1 [facility] [address] 03/31/2024 Estuardo Mccarthy Type 2 diabetes mellitus with diabetic polyneuropathy E11.42 ; Tinea unguium B35.1 ; Other hammer toe(s) (acquired), right foot M20.41 ; Other hammer toe(s) (acquired), left foot M20.42 and Ingrown nail L60.[address] [facility] [address] 03/21/2024 Estuardo Fabio [address] [address] 04/01/2024 Estuardo Mccarthy Assessments Encounter Date Diagnosis [...] (ICD-10 - M20.41) Response to treatment,Impro vement 03/31/2024 Other hammer toe(s) (acquired), right foot (ICD-10 - M20.41) Patient Educated with: DIABETIC FOOT CARE INSTRUCTIONS. pdf (DIABETIC FOOT CARE INSTRUCTIONS. pdf) 03/31/2024 Other hammer toe(s) (acquired), left foot (ICD-10 - M20.42) 06/08/2023 Other hammer toe(s) (acquired), left foot (ICD-10 - M20.42) Response to treatment,Impro vement 03/31/2024 Ingrown nail (ICD-10 - L60.0) Plan Of Treatment Pending Test Test Name Order Date 39516-ZYVGWSO NAIL, 1-5 01/20/2020 90756-DWDOJUD NAIL, 1-5 04/27/2020 70385-OVXGLUG NAIL, 1-5 07/27/2020 97601-DXNAZVX NAIL, 1-5 11/02/2020 38567-AZKTVAK NAIL, 1-5 02/04/2021 91149-NOMSDGN NAIL, 1-5 05/06/2021 51057-CPUZRNL NAIL, 1-5 08/02/2021 12059-DUTVHXT NAIL, -5 10/28/2021 00332-TDLLYYD NAIL, -5 02/03/2022 45828-XKTCLOS NAIL, -5 05/12/2022 67713-EWDSRYL NAIL, -5 08/18/2022 30877-TVHYEYH NAIL, -5 11/24/2022 02347-KZGOSBI NAIL, -5 03/02/2023 34516-QENJOMW NAIL, 1-5 06/08/2023 62623-THPYHBF NAIL, -5 09/14/2023 13648-YEJMYJB NAIL, -5 12/14/2023 26439-PIKYQUR NAIL, -03/31/2024 21663-Kccmqslr Plate 03/31/2024 85690-Rycqzuxa Plate 08/18/2022 42380-OBQV SKIN LESIONS, 2 TO 4 03/02/20 46664-YZZW SKIN LESIONS, 2 TO 4 12/14/19 24 77912-IBJS SKIN LESIONS, 2 TO 4 09/14/19 24 59328-DZEB SKIN LESIONS, 2 TO 4 06/08/19 35576-IVBH SKIN LESIONS, 2 TO 4 03/31/19 91437-IUHJ SKIN LESIONS, 2 TO 4 11/25/19 82871-RPUC SKIN LESIONS, 2 TO 4 08/19/19 72465-XCXB SKIN LESIONS, 2 TO 4 05/12/19 36398-YDSX SKIN LESIONS, 2 TO 4 02/04/20 34630-PDXR SKIN LESIONS, 2 TO 4 08/12/20 22 78682-JVUI SKIN LESIONS, 2 TO 4 08/03/19 22 40775-QTFN SKIN LESIONS, 2 TO 4 02/05/20 21 96624-IMZU SKIN LESIONS, 2 TO 4 05/06/19 22 72499-MQRE SKIN LESIONS, 2 TO 4 07/28/19 21 61143-ZSFE SKIN LESIONS, 2 TO 4 11/03/19 21 25227-SVAA SKIN LESIONS, 2 TO 4 01/20/20 20 37687-AKON SKIN LESIONS, 2 TO 4 04/27/19 21 O2776-SXCNMOWC DYSTROPHIC NAILS ANY # T7681-GRISUQDX DYSTROPHIC NAILS ANY # R1633-IHYRGWCW DYSTROPHIC NAILS ANY # L2450-YDBXJZEB DYSTROPHIC NAILS ANY # M6784-NZQLUUBB DYSTROPHIC NAILS ANY # P8223-SFVAUPVW DYSTROPHIC NAILS ANY # R5388-UEVJCROK DYSTROPHIC NAILS ANY # D8989-EAIALTPG DYSTROPHIC NAILS ANY # B8880-FQNXIWNP DYSTROPHIC NAILS ANY # S7563-JPWCZJOM DYSTROPHIC NAILS ANY # R3718-WKMIAIKO DYSTROPHIC NAILS ANY # R6956-VSNWQURB DYSTROPHIC NAILS ANY # P0041-IUQSGZIE DYSTROPHIC NAILS ANY # Y6419-VFQCUBUV DYSTROPHIC NAILS ANY # U7263-LBNKQQQX DYSTROPHIC NAILS ANY # N3066-BTOKRXCL DYSTROPHIC NAILS ANY # F2005-SOYPQJHX DYSTROPHIC NAILS ANY # Next Appt Details Provider Name:Estuardo Mccarthy , 07/01/2024 03:30:00 PM, [address] [facility], [place], [address], Insurance Providers Payer Name Payer Address Payer Phone Subscriber Number Group Number Insured Name Patient Relationship to Insured Coverage Start Date Coverage End Date Medicare National Govt [facility] [address] [place] [address] [id number] Aminah Florence Self - patient is the insured 0 A[employer] Secondary to Medicare [address] [place] [address] [id number] Aminah Florence Self - patient is the insured Medical (General) History Medical History History ICD Code Broken bones Heart disease - CHF High blood pressure Measles Mumps Chicken pox Bone implants/screws Transfusions type II diabetes Macular degeneration Surgical History Surgery Date(Month/Year) cataract surgery 2018 kidney stones removal 07/2020 endoscopy 05/15/23 back surgery, broken in 3 places 02/2024 Hospitalization History Reason Date(Month/Year) [facility]minary [facility] [facility] [place]05 4 [facility] - [place] Dec 20[place] [facility] [place] [facility] [place] 2 compound fractures back 5 da ys test done Rehab 2 weeks 12/12/21 urgent care -UTI given antiboitic 10/25/19
--- OUTSIDE RECORDS SUMMARY | 2024-05-23 17:34 | XMS_ITS ---
Author Organization [facility] Address [address] [place] [address] Care Team Providers Care Asphalt Paving Machine Operator Name Role Phone Bonnie DUVALL, Patricia Primary Care Provider Chaz Dunaway [phone] REASON FOR VISIT in hospital Encounters Encounter Location Date Provider Diagnosis [facility] [address] [place] [address] 09/05/2023 Chaz Mendez Plan Of Treatment No Information Progress Notes * JIMI SUTTONDOB: [birth year] (83 yo F)Acc No.[id number]:09/05/2023 Patient:?JIMI SUTTON :1940???Age:83 Y???Sex:Female Address:[address] [place] [address] [place] [address] * true * Date:? Generated for Douglas thomas/Juana/eTransmitting on:?05/23/2024 05:34 PM EST
--- OUTSIDE RECORDS SUMMARY | 2024-05-23 17:34 | XMS_ITS | Patient Health Record ---
Author Organization [facility] Address [address] [place] [address] Care Team Providers Care Physical Medicine Teacher Name Role Phone Patricia Nicloe MD Primary Care Provider Chaz Dunaway Unavailable [phone] Allergies Allergen (clinical drug ingredient) Drug/Non Drug Allergy documented on EMR Reaction Allergy Type Onset Date Status Lisinopril Unknown Drug Allergy Active meperidine Demerol Unknown Drug Allergy Active Substance with 4-orvnwgr-0-methylglutar yl-coenzyme A reductase inhibitor mechanism of action (substance) statin drugs (uncoded) Unknown Allergy Active Latex latex (uncoded) Unknown Allergy Acti ve Tambocor Unknown Drug Allergy Active acetaminophen / oxycodone Percocet Unknown Drug Allergy Active Reason For Referral No Information Medications Medication [...] MG Oral for 30 E1141,Nita jay Active metFORMIN HCl 1000 MG 1 tablet [...] hydroCHLOROthiazide 25 MG Oral for 90 Active Immunizations Vaccine Route Administration Date Status Comme nts Flu vaccine no Preserv 3 and > Unknown 11/25/2013 Admin istered Influenza Unknown 02/28/2023 Administered Influenza Unknown 01/31/2022 Refused Problems Problem Type SNOMED Code ICD Code Onset Dates Problem Status W/U Status Risk Notes Problem 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) Active confirmed Problem 15660154 Calculus of gallbladder without cholecystitis without obstruction (K80.20) Active confirmed Problem 68450753 Abdominal pain, epigastric (R10.13) Active confirmed Problem 91306598 Gastric polyps (K31.7) Active confirmed Problem Gallstones (768135891) Gallstones (K80.20) Active confirmed Problem Gastritis (8730586) Gastritis (K29.70) Active confirmed Problem 542345290 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 Problem Upper abdominal pain (43738812) Upper abdominal pain (R10.10) Active confirmed Problem 3368490 Chronic gastriti s without bleeding, unspecified gastritis type (K29.50) Active confirmed Problem Epigastric fullness (3011766) Abdominal fullness (R19.8) Active confirmed Encounters Encounter Location Date Provider Diagnosis [facility] [address] [facility] [address] [place] [address] 09/05/2023 Chaz Mendez Plan Of Treatment Pending Test Test Name Order Date NUC HIDA SCAN 04/13/2022 Future Test Test Name Order Date COLONOSCOPY 06/12/2014 UPPER GI ENDOSCOPY 04/13/2022 Insurance Providers Payer Name Payer Address Payer Phone Subscriber Number Group Number Insured Name Patient Relationship to Insured Coverage Start Date Coverage End Date MEDICARE OF [place] [address] [place] [address] [phone] [id number] JIMI RAMOS Self - patient is the insured [facility] SUPPLEMENTAL PLAN [address] [place] [address] [id number] JIMI RAMOS Self - patient is the insured Medical (General) History Medical History History ICD Code Colonoscopy 07-13-2003---neg. 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 Wadsworth at [facility] with removal of the adenomatous tissue in 10/2022 and is scheduled for a followup upper endoscopy in April of 2023 to reinspect the polypectomy sites. CHF 12/2022 at [facility]--she required intubation. She had to be Med[facility]ed [facility] to [facility] at the time. Surgical History Surgery Date(Month/Year) Partial right lung resection by Dr. Maynard for a carcinoid tumor Right knee replacement 09/01/2013 Parathyroidectomy Disc surgery-lower back Deviated septum repair [facility] Hospitalization History Reason Date(Month/Year)
--- OUTSIDE RECORDS SUMMARY | 2024-05-23 17:34 | XMS_ITS ---
Author Organization [facility] Address [address] [place] [address] Care Team Providers Care Racing Secretary Name Role Phone Bonnie DUVALL, Patricia De La Garza Primary Care Provider Un available Estuardo Mccarthy Unavailable [phone] REASON FOR VISIT A1C Encounters Encounter [facility] Date [facility] [address] 04/01/2024 Estuardo Mccarthy Plan Of Treatment Next Appt Details Provider Name:Estuardo Mccarthy , 07/01/2024 03:30:00 PM, [address] [facility], [place], [address], Progress Notes * Aminah KRAFT PDOB:[birth year] (83 yo F)Acc No.[id number]:04/01/2024 Patient:?Aminah KRAFT :1940???Age:83 Y???Sex:Female Address:[address] [place] [address], [place], [address] * true * Date:? Generated for Kekei martha/Juana/eTransmitting on:?05/23/2024 05:34 PM EST
--- OUTSIDE RECORDS SUMMARY | 2024-05-23 17:34 | XMS_ITS ---
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 * Medical History:? Objective: * Vitals:? Assessment: Plan: * Treatment: * * The named appointment provid er may or may not be the originator of this progress note, and it is not deemed complete until electronically signed by the appointment provider. Sign off status: Pending * Provider:?Chaz Mendez MD Date:? 024 Generated for Kekei martha/Juana/eTransmitting on:?05/23/2024 05:34 PM EST
--- OUTSIDE RECORDS SUMMARY | 2024-05-23 17:34 | XMS_ITS | Clinical Summary ---
Author Organization [facility] Address [address] [place] [address] Phone Care Team Providers Care Mailing Machine Helper Name Role Phone Unavailable Primary Care Provider [...] Visit [facility] [address] [place] [address] Gume Moyer MD [address] [facility] [address] [place] [address] Health Maintenance Due Date Last [...] [place] [id number] [facility] MEDICARE [facility] MEDICARE
[2024-05-23 17:36] LABS: Appearance Urine Cloudy; Color Urine Yellow; Glucose Urine UA Negative (Negative); Leukocyte Esterase Urine Moderate (2+) (Negative); Nitrite Urine Negative (Negative); PH 8.5 (5.0-9.0); UMIC TRIGGER UACC YES; Urine Blood Negative (Negative); Urine Ketones Negative (Negative); Urine Protein Negative (Neg-Trace)
[2024-05-23 17:41] LABS: Bacteria Urine 4+ (None Seen); Hyaline Casts Urine 0-2 /LPF (0-2); RBC Urine 0-2 /HPF (0-2); Squamous Epithelial Cell Urine 0-2 /HPF (0-2); UACC Culture Trigger YES; WBC Urine 21-50 /HPF (0-5)
== END 2024-05-23 17:12 | disposition home or self-care (01) ==
LOC: HO.LNP 17:11
PROVIDERS: Visit Provider Internal Medicine
DX: R35.0 Frequency of micturition (principal); N39.0 Urinary tract infection, site not specified; N20.0 Calculus of kidney; E11.40 Type 2 diabetes mellitus with diabetic neuropathy, unspecified; Z79.4 Long term (current) use of insulin
CPT/HCPCS: 81001; 87086; 87088

== ENCOUNTER 2024-06-02 14:29 | Outpatient (REF) | payer MEDICARE, SELFPAY ==
--- OUTSIDE RECORDS SUMMARY | 2024-06-02 16:59 | XMS_ITS ---
Author Organization [facility] Address [address] [place] [address] Care Team Providers Care Marketing Development Manager Name Role Phone Bonnie DUVALL, Patricia De La Garza Primary Care Provider Un available Estuardo Mccarthy Unavailable [phone] Encounters Encounter Location Date Provider Diagnosis [address] [address] 03/28/2024 Estuardo Mccarthy Plan Of Treatment Next Appt Details Provider Name:Estuardo Mccarthy , 07/01/2024 03:30:00 PM, [address] [place] [address], [address], Progress Notes * Aminah KRAFT PDOB:[birth year] (83 yo F)Acc No.[id number]:03/28/2024 Progress Note Patient:?Aminah KRAFT Provider:?Estuardo Mccarthy DPM :1940???Age:83 Y???Sex:Female D ate:03/28/2024 Address:[address] [place] [address] [id number] Pcp:Amada Ferro Subjective: * Chief Complaints: * ??? * Medical History:? Objective: * Vitals:? Assessment: Plan: * Treatment: * Images: * The named appointment provid er may or may not be the originator of this progress note, and it is not deemed complete until electronically signed by the appointment provider. Sign off status: Pending * Provider:?Estuardo Mccarthy DPM Date:?2024 Generated for Douglas thomas/Juana/Lizandro on:?06/02/2024 04:58 PM EDT
--- OUTSIDE RECORDS SUMMARY | 2024-06-02 16:59 | XMS_ITS ---
Author Organization [facility] Address [address] [place] [address] Care Team Providers Care Drive In Teller Name Role Phone Bonnie DUVALL, Patricia Primary Care Provider Chaz Dunaway [phone] Allergies Allergen (clinical drug ingredient) Drug/Non Drug Allergy documented on EMR Reaction Allergy Type Onset Date Status acetaminophen / oxycodone Percocet Unknown Drug Allergy Active lisinopril Lisinopril Unknown Drug Allergy Activ e meperidine Demerol Unknown Drug Allergy Active Substance with 2-ftnqkqm-2-methylglutar yl-coenzyme A reductase inhibitor mechanism of action [...] 03/07/2023 Encounters Encounter Location Date Provider Diagnosis [facility] [address] [place] [address] 03/07/2023 Chaz Mendez 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 I did advise her to call her team manager now to see about the clearance. I [...] * JIMI SUTTONDOB: [birth year] (82 yo F)Acc No.[id number]:03/07/2023 Progress Notes Patient:?JIMI SUTTON Provider:?Chaz Mendez MD :1940???Age:82 Y???Sex:Female D ate:03/07/2023 Address:[address] [place], [place] [address] Pcp:Patricia Nicole MD Subjective: * Chief Complaints: * ???Patient presents today fo r epigastric pain * HPI: ???incontinence:? I saw Jimi in followup today in regard to her previous history of abdominal discomfort and a subsequent finding of an ampullary adenoma. She was accompanied by her . ?Since I last saw Jimi in August she did undergo an upper endoscopy at [facility] toward the end of October with Dr. [...] had to be Medflighted by helicopter from [place] down to [facility]. She is currently being followed by Dr. [...] she needs to have clearance by her team manager for the procedure at [facility] in April. I did advise her to call her team manager now to see about the clearance. I [...] * Treatment: * Procedure Codes:?1036F TOBAC CO NON-IMDAD3879 BP SCR NOT PRFRM REC REASON NOS * Preventive Medicine:? ??Counseling:?Care goal follow-up plan:?Above Normal BMI Follow-up?Giving encouragement to exercise,?BMI management provided?Yes.? ??Urinary Incontinence:?Urinary Incontinence?Assessment:?Absent,?Plan of care documented:?No, reason not specified.? * Follow Up:?6 Months * * Sign off status: Completed true * Provider:?Chaz Mendez MD Date:? 023 Generated for Douglas thomas/Juana/eTransmitting on:?06/02/2024 04:59 PM EDT History and Physical Notes * HPI (History of Present Illness) Category Sub-Category Detail Notes Category Not es incontinence I saw Jimi in followup today in regard to her previous history of abdominal discomfort and a subsequent finding of an ampullary adenoma. She was accompanied by her . Since I last saw Jimi in August she did undergo an upper endoscopy at [facility] toward the end of October with Dr. [...] had to be Medflighted by helicopter from [place] down to [facility]. She is currently being followed by Dr. [...]
--- OUTSIDE RECORDS SUMMARY | 2024-06-02 16:59 | XMS_ITS ---
Author Organization [facility] Address [address] [place] [address] Care Team Providers Care Route Carrier Name Role Phone Bonnie DUVALL, Patricia Primary Care Provider Chaz Dunaway [phone] REASON FOR VISIT in hospital Encounters Encounter Location Date Provider Diagnosis [facility] [address] [place] [address] 09/05/2023 Chaz Mendez Plan Of Treatment No Information Progress Notes * JIMI SUTTONDOB: [birth year] (83 yo F)Acc No.[id number]:09/05/2023 Patient:?JIMI SUTTON :1940???Age:83 Y???Sex:Female Address:[address] [place] [address] [place] [address] * true * Date:? Generated for Kekei martha/Juana/eTransmitting on:?06/02/2024 04:59 PM EDT
--- OUTSIDE RECORDS SUMMARY | 2024-06-02 16:59 | XMS_ITS | Clinical Summary ---
Author Organization [facility] Address [address] [place] [address] Care Team Providers Care Recyclable Materials Sorter Name Role Phone Patricia Nicole MD Primary [...] mononeuropathy, with long-term current use of insulin ([facility]) Take 1 capsule (100 mg total) by mouth 3 (three) times a day. 90 capsule 3 12/24/2022 Active hydroCHLOROthiazide (HYDRODIURIL) 25 MG tabletIndications:C HF (congestive heart failure) ([facility]),Primary hypertension,Reduce d ejection fraction concurrent with and due to acute heart failure ([facility]) Take 1 tablet (25 mg [...] 25 MG tabletIndications:C HF (congestive heart failure) ([facility]),Primary hypertension,Reduce d ejection fraction concurrent with and due to acute heart failure ([facility]) Take 1 tablet (25 mg [...] place to sleep or slept in a long-term (including now)? No 12/18/2022 Sex and Gender [...] 65 - 99 mg/dL 12/24/2022 7:23 AM [facility] Comment:Fasting: <100 mg/dL, Non-Fasting: <200 mg/dL (ADA 2005) Blood Urea Nitrogen (BUN) 14 8 - 21 mg/dL 12/24/2022 7:23 AM [facility] Creatinine 0.6 0.4 - 1.1 mg/dL 12/24/2022 7:23 AM [facility] eGFR 88 >59 12/24/2022 7:23 AM [facility] Comment:CKD-EPI (2020) in mL /min/1.73 sq meters. Sodium 137 136 - 145 mmol/L 12/24/2022 7:23 AM EDT [facility] Potassium 3.8 3.4 - 5.3 mmol/L 12/24/2022 7:23 AM T [facility] Chloride 101 98 - 107 mmol/L 12/24/2022 7:23 AM EDT [facility] CO2 28 22 - 33 mmol/L 12/24/2022 7:23 AM EDT [facility] Anion Gap 8 7 - 17 12/24/2022 7:23 AM EDT [facility] Calcium 9.3 8.7 - 10.5 mg/dL 12/24/2022 7:23 AM T [facility] BUN/Creatinine Ratio 23 10.0 - 25.0 Ratio 12/24/2022 7:23 AM T [facility] Blood specimen (specimen) (Plasma/Serum) 12/24/2022 6:14 AM EDT 12/24/2022 6:43 AM EDT Silvestre Juarez MD [facility] See Below [facility] [address] [place] [address] * (ABNORMAL) Hemoglobin A1c with Estimated Average Glucose (12/18/2022 3:24 AM EDT) Hemoglobin A1C 7.5(H) <5.7 % 12/18/2022 4:47 AM EDT [facility] Comment: A1c% ? Interpretation 5.7 - 6.0 ?Increase risk of diabetes 6.1 - 6.4 ?Higher risk of diabetes > or = 6.5 ?? Consistent with diabetes Diabetes Care, 33(Supp 1):S1-S61, 2010 Estimated Average Glucose 169 mg/dL 12/18/2022 4:47 AM EDT [facility] Blood specimen (specimen) Blood specimen / Unknown 12/18/2022 3:24 AM EDT 12/18/2022 3:40 AM EDT Chiquita Adler APRN [facility] See Below [facility] [address] [place] [address] from Last 3 Months or Most Recently Relevant to Health Maintenance Advance Directives * Full Code (Latest Code Status on File) Date Activated Date Inactivated Comments 12/18/2022 2:12 AM Question Answer Comments Decision Thoroughly Discussed with: Unable to Di scuss Care Teams Recyclable Materials Sorter Relationship Specialty Start Date End Date Patricia Nicole MD [address] [place] [address] [place] [address] PCP - General Internal Medicine 12/18/22
--- OUTSIDE RECORDS SUMMARY | 2024-06-02 16:59 | XMS_ITS ---
Author Organization [facility] Address [address] [place] [address] Care Team Providers Care Urban Anthropologist Name Role Phone Bonnie DUVALL, Patricia De La Garza Primary Care Provider Un available Estuardo Mccarthy Unavailable [phone] Allergies Allergen (clinical drug ingredient) Drug/Non Drug [...] Ordered Date Performed Result Body Sit e 55077-UCTUDNC NAIL, 1-5 03/31/2024 N/A 74089-Dxfspmjp Plate 03/31/2024 N/A 08049-IBOS SKIN LESIONS, 2 TO 4 03/31/2024 N/A U5445-UCQRMWKV DYSTROPHIC NAILS ANY # 03/31/2024 N/A Encounters Encounter Location Date Provider Diagnosis [facility] [address] [address] 03/31/2024 Estuardo Mccarthy Type 2 diabetes mellitus [...] INSTRUCTIONS.pdf) Pending Test Test Name Order Date 98640-LYBJBHW NAIL, 1-5 03/31/2024 51865-Nspwbwfu Plate 03/31/2024 29294-BYLW SKIN LESIONS, 2 TO 4 03/31/19 F8899-JDDYQZBS DYSTROPHIC NAILS ANY # Next Appt Details Follow Up: prn, Reason: Provider Name:Estuardo Mccarthy , 07/01/2024 03:30:00 PM, [address] [place] [address], [phone], Procedure Notes * Category Sub-Category Detail [...] Motrin was recommended for pain or discomfort (99715), DIABETES: Pt was advised as to the [...] instrumentation by the physician of record - 63651 Debride Nails 1-5 Procedure: Due to the [...] necessary to maintain effective symptomatic relief - 36512 Nail Reduction Nail Reduction (-27) Trimming o [...] * Aminah KRAFT PDOB:[birth year] (83 yo F)Acc No.[id number]:03/31/2024 Progress Note Patient:?Aminah KRAFT P Provider:?Estuardo Mccarthy DPM :1940???Age:83 Y???Sex:Female D ate:03/31/2024 Address:[address] [place] [address], [place], [place] Pcp:Amada Ferro Subjective: * Chief Complaints: * [...] Diagno stic Procedure:?urgent care -UTI given antiboitic 10/24/2021[facility]- Fall 2 compound fractures back 5 days test done Rehab 2 weeks 12/12/21[facility] - Nuclear exam done 2022[facility] - CHF Deculminary [facility] ER / ICU 08/29- * [...] INSTRUCTIONS.pdf (DIABETIC FOOT CARE INSTRUCTIONS.pdf)?? 3.?Ingrown nail?Procedure: 99847-Lowspfdj Plate * Procedures:?Debride Nails 1-5:?Procedure:?Due to the [...] necessary to maintain effective symptomatic relief - 32962.?Keratoma Treatment:?Parring or Cutting of Benign Hyperkeratotic Lesion(s)?(-56) [...] instrumentation by the physician of record - 99981.?Nail Avulsion:?Location?Lateral nail border,?T5.?Anesthesia?was deferred - NEUROPATHY: patient [...] Motrin was recommended for pain or discomfort (66572), DIABETES: Pt was advised as to the [...] ING DYSTROPHIC NAILS ANY #, Modifiers: XS 23410 Avulsion Plate, Modifiers: XS , [id number] DEBRIDE NAIL, 1-5, Modifiers: XS 18356 TRIM SKIN LESIONS, 2 TO 4, Modifiers: [...] DPM Date:?2024 Generated for Douglas thomas/Juana/Lizandro on:?06/02/2024 04:59 PM EDT History and Physical [...]
--- OUTSIDE RECORDS SUMMARY | 2024-06-02 17:00 | XMS_ITS ---
Author Organization [facility] Address [address] [place] [address] Care Team Providers Care Criminal Investigative Agent Name Role Phone Bonnie DUVALL, Patricia De La Garza Primary Care Provider Un available Estuardo Mccarthy Unavailable [phone] REASON FOR VISIT A1C Encounters Encounter [facility] [address] 04/01/[facility] Estuardo Mccarthy Plan Of Treatment Next Appt Details Provider Name:Estuardo Mccarthy , 07/01/2024 03:30:00 PM, [address] [facility], [place], [address], Progress Notes * Aminah KRAFT PDOB:[birth year] (83 yo F)Acc No.[id number]:04/01/2024 Patient:?Aminah KRAFT :1940???Age:83 Y???Sex:Female Address:[address] [place] [address], [place], [address] * true * Date:? Generated for Printi martha/Juana/eTransmitting on:?06/02/2024 04:59 PM EDT
--- OUTSIDE RECORDS SUMMARY | 2024-06-02 17:00 | XMS_ITS ---
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 024 Generated for Kekei martha/Aliceg/eTransmitting on:?06/02/2024 04:59 PM EDT
--- OUTSIDE RECORDS SUMMARY | 2024-06-02 17:00 | XMS_ITS ---
Author Name [facility] Organization Unknown Encounters Encounter Type Encounter Reason Primary Diagnosis Location Date Inpatient Heart failure, unspecified Heart failure, unspecified Si TV 12/18/2022 Care Team Organization Name Specialty Phone Email Start Date End Da te Si TV 12/18/2022 12/18/2022 Si TV ADRI JACKSON Primary Care 12/18/20222022 Si TV 12/18/2022
--- OUTSIDE RECORDS SUMMARY | 2024-06-02 17:00 | XMS_ITS | Clinical Summary ---
Author Organization [facility] Address [address] [place] [address] Phone Care Team Providers Care Blanking Machine Operator Name Role Phone Unavailable Primary Care Provider [...] Visit [facility] [address] [place] [address] Gume Moyer MD [address] [facility] [address] [place] [address] Health Maintenance Due Date Last [...] complete [place] [id number] [facility] MEDICARE [facility] MEDICARE
--- OUTSIDE RECORDS SUMMARY | 2024-06-02 17:00 | XMS_ITS | Patient Health Record ---
Author Organization [facility] Address [address] [place] [address] Care Team Providers Care Coating And Embossing Unit Operator Name Role Phone Bonnie DUVALL, Patricia Primary Care Provider Chaz Dunaway Unavailable [phone] Allergies Allergen (clinical drug ingredient) Drug/Non Drug Allergy documented on EMR Reaction Allergy Type Onset Date Status acetaminophen / oxycodone Percocet Unknown Drug Allergy Active lisinopril Lisinopril Unknown Drug Allergy Activ e meperidine Demerol Unknown Drug Allergy Active Substance with 9-raqcfjq-7-methylglutar yl-coenzyme A reductase inhibitor mechanism of action (substance) statin drugs (uncoded) Unknown Allergy Active Latex latex (uncoded) Unknown Allergy Acti ve Tambocor Unknown Drug Allergy Active Reason For Referral [...] Risk Notes Problem Benign neoplasm of stomach (98617805) Polyp of stomach and duodenum (K31.7) Active confirmed Problem 07382511 Calculus of gallbladder without cholecystitis without obstruction (K80.20) Active confirmed Problem 41604555 Abdominal pain, epigastric (R10.13) Active confirmed Problem 76170839 Gastric polyps (K31.7) Active confirmed Problem Gallstones (448984723) Gallstones (K80.20) Active confirmed Problem Gastritis (9276011) Gastritis (K29.70) Active confirmed Problem 987124148 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 Problem Upper abdominal pain (11398210) Upper abdominal pain (R10.10) Active confirmed Problem 2644511 Chronic gastriti s without bleeding, unspecified gastritis type (K29.50) Active confirmed Problem Epigastric fullness (5552649) Abdominal fullness (R19.8) Active confirmed Encounters Encounter Location Date Provider Diagnosis [facility] [address] [place] [address] 09/05/2023 Chaz Mendez Plan Of Treatment Pending Test Test Name Order Date NUC HIDA SCAN 04/13/2022 Future Test Test Name Order Date COLONOSCOPY 06/12/2014 UPPER GI ENDOSCOPY 04/13/2022 Insurance Providers Payer Name Payer Address Payer Phone Subscriber Number Group Number Insured Name Patient Relationship to Insured Coverage Start Date Coverage End Date MEDICARE OF [place] [address] [place] [id number] JIMI RAMOS Self - patient is the insured [facility] SU[employer]LE[employer]AL PLAN [address] [place] [address] [phone] [id number] JIMI RAMOS Self - patient is the insured Medical (General) History Medical History History ICD Code Colonoscopy 07-13-2003---neg. 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 Wadsworth at [facility] with removal of the adenomatous tissue in 10/2022 and is scheduled for a followup upper endoscopy in April of 2023 to reinspect the polypectomy sites. CHF 12/2022 at [facility]--she required intubation. She had to be [facility] at the time. Surgical History Surgery Date(Month/Year) Partial right lung resection by Dr. Maynard for a carcinoid tumor Right knee replacement 09/01/2013 Parathyroidectomy Disc surgery-lower back Deviated septum repair [facility] Hospitalization History Reason Date(Month/Year)
== END 2024-06-02 14:30 | disposition home or self-care (01) ==
LOC: HO.MAMMO 14:29
PROVIDERS: PCP Internal Medicine; Visit Provider Internal Medicine
DX: Z12.31 Encounter for screening mammogram for malignant neoplasm of breast (principal)
CPT/HCPCS: 77063; 77067

== ENCOUNTER → 2024-06-02 14:45 | Outpatient (BNV) | payer MEDICARE, SELFPAY | PROVIDERS: PCP Internal Medicine; Visit Provider Internal Medicine | DX: Z12.31 Encounter for screening mammogram for malignant neoplasm of breast (principal) | CPT/HCPCS: 77063; 77067 ==

== ENCOUNTER 2024-07-01 10:40 | Outpatient (AMB) | payer MEDICARE, SELFPAY ==
[2024-07-01 11:37] VITALS: BP 134/80; PULSE 70; RESP 17; TEMP 36.8; O2SAT 96; BMI 25.6
--- NOTE | 2024-07-01 11:37 | AM.OFFVISMDC ---
Intake Vital Signs 07/01/24 11:37 Height 5 ft 4 in Weight 149 lb BMI 25.6 BP 134/80 Blood Pressure Location Lt brachial Position Sitting Respiration 17 Pulse 70 Pulse Source Pulse Oximeter Temp 98.2 F Temp Source Oral Pulse Oximetry (%) 96 Oxygen Delivery Method Room Air Intake Visit Reasons: SWV G0349 Intake Note: Pt is here today for her SWV: Allergies latex [Latex] Allergy (Severe, Verified 07/01/24 11:59) RASH cephalexin [CEPHALEXIN] Allergy (Intermediate, Verified 07/01/24 11:59) SWELLING adhesive tape [Adhesive Tape] Allergy (Mild, Verified 07/01/24 11:59) CONTACT DERMATITIS empagliflozin [From Jardiance] Adverse Reaction (Severe, Verified 07/01/24 11:59) Dizziness flecainide [From Tambocor] Adverse Reaction (Severe, Verified 07/01/24 11:59) HEART RACING Biaxin Adverse Reaction (Intermediate, Verified 07/01/24 11:59) plapitations lisinopril [LISINOPRIL] Adverse Reaction (Intermediate, Verified 07/01/24 11:59) cough, nausea bacitracin [From Cortisporin] Adverse Reaction (Mild, Verified 07/01/24 11:59) EYE IRRITATION hydrocortisone [From Cortisporin] Adverse Reaction (Mild, Verified 07/01/24 11:59) EYE IRRITATION neomycin [From Cortisporin] Adverse Reaction (Mild, Verified 07/01/24 11:59) EYE IRRITATION nitrofurantoin Adverse Reaction (Verified 07/01/24 11:59) Loss of Appetite Medication List - Last Reconciled 07/01/24 by Patricia Nicole MD acetaminophen ER (Tylenol Arthritis Pain) 650 mg PO Q8H apixaban (Eliquis) 5 mg PO BID coenzyme Q10 (CoQ-10) 100 mg PO DAILY furosemide (Lasix) 40 mg PO DAILY gabapentin 300 mg PO BEDTIME insulin glargine (Lantus Solostar U-100 Insulin) 10 units subcut BEDTIME insulin lispro (Humalog KwikPen U-200 Insulin) 2 - 12 units subcut USEASDIRECTD loratadine (Wal-itin) 10 mg PO DAILY losartan 50 mg PO DAILY metformin 1,000 mg PO BID 3 months metoprolol succinate ER 25 mg PO DAILY pen needle, diabetic As directed QID ac and hs rosuvastatin 5 mg PO MOWEFR 90 days spironolactone 25 mg PO DAILY tramadol 50 mg PO Q8H PRN vit C,R-Yk-wgpou-lutein-zeaxan 250-90-40-1 mg (PreserVision AREDS-2) 1 tab PO BID HPI SWV G0349 HPI Details SWV ? 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 She has diabetes mellitus, with latest hemoglobin A1c 6.8% on 05/10/2024, fasting lipid panel at that time also was within normal limit. She is up-to-date with her screening mammogram done 06/03/2023 with benign findings, no longer gets cervical cancer screening or colon cancer screening. Her last bone density was done in 01/04/2024 which showed presence of osteopenia in left femoral neck and left femur, and was found to have a thoracic compression and lumbar compression fracture status post kyphoplasty. She is up-to-date with her COVID vaccination, flu shot, pneumonia vaccine and Tdap, declined getting Shingrix or RSV vaccine. ? Medical / Social History Reviewed? Past Medical History ?Yes . ? [place] of Care / Care Team list updated ?Yes . ? Surgical/Hospitalization History ?Yes . ? Current Medications (including OTC and supplements) ?Yes . ? Family History ?Yes . ? Tobacco Control form ?Yes . ? AUDIT-C (Alcohol use) form ?Yes . ? Illicit drug use in Social History ?Yes . ? Current diagnosis of depression? ?No ? Appropriate PHQ2/PHQ9 completed ?Yes . ? Data entered by ?Telegraph Service Clerk and reviewed by provider ? Fall Risk ? Fall History? Have you had any falls with injury in the past year? ?No . ? Have you had two or more falls in the past year? ?No . ? Fall Risk Assessment: ?No falls in the past year . ? HRA filled out by the patient, reviewed by Provider and scanned. ? SWV ? Balance? Romberg ?negative ? Tandem walk ?unable to . ? Walk and Turn ?walks with aid of a walker. ? Rise from sit to stand ?Yes . ?Vision? Corrective lens ?Yes ? Vision screen ? Up-to-date, goes to [facility], last eye exam was done 10/03/2022 and goes to [facility] ?Hearing? Whisper test- ?fail, patient wears hearing aids ?Written Plan?Completed. See Patient Documents.? HPI Comments History of Present Illness Details She has diabetes med, currently on Humalog given 3 times a day by sliding scale coverage and Lantus decreased her dose now to 5 units at bedtime as she has been experiencing hypoglycemic attacks in the early mornings. Usually has to be given orange juice at around 01:00 as her blood sugar drops to lower 60s. She has also been cleaning urinary frequency almost has to go every hour ever since she was started on spironolactone and Lasix. Dysuria but has occasional urinary once, has to wear pads daily no. She also has been having intermittent episodes of lower back pain which is aggravated with sitting or standing for long periods of time. Has been taking tramadol together with the Tylenol tablet at least twice a day as needed for pain which has been helping. Has been compliant with taking her medications, with recent fasting labs within normal limit and hemoglobin A1c at 6.8% hypertension is well controlled with present treatment. [facility] Medical History (Updated 07/02/24 @ 09:41 by Patricia Nicole MD) Right nephrolithiasis Recurrent UTI (urinary tract infection) Hiatal hernia Gastritis Opioid-induced constipation Degenerative disc disease, thoracic Degenerative disc disease, lumbar KLETSEL DEHE W[place] (hard of hearing) Wears hearing aid in both ears Uses walker Hx of cardiac pacemaker (10/06/23) Age-related osteoporosis with current pathological fracture, vertebra(e), initial encounter for fracture Compression fracture of lumbar spine, non-traumatic Nontraumatic compression fracture of thoracic vertebra Moderate aortic stenosis Diabetes mellitus Congestive heart failure Urinary tract infection Hypertension Paroxysmal atrial fibrillation Cholelithiasis Renal cyst Nephrolithiasis Pulmonary hypertension Non-rheumatic mitral regurgitation Permanent atrial fibrillation Microcytic anemia Atrophic vaginitis Osteoarthritis of knees, bilateral Essential hypertension Dyslipidemia Type 2 diabetes mellitus with diabetic neuropathy, with long-term current use of insulin Surgical History History of cardiac radiofrequency ablation (RFA) Hx of cardiac catheterization History of esophagogastroduodenoscopy (EGD) (~10/2022) History of lumbar discectomy History of lobectomy of lung History of hysterectomy History of total right knee replacement (TKR) Lumbar radiculopathy Family History Father Diabetes mellitus Mother Diabetes mellitus Myocardial infarction Sister Cancer Sister No problems noted. Son No problems noted. Daughter No problems noted. Social History Household Members: None Housing: House Are you a primary adult care provider to a significant other at home: No Do you presently have visiting nurse or other home services: No (supportive family) Unable to assess alcohol history related to: Unable to respond Alcohol intake: never Patient Tobacco Use Status: Former Tobacco user Tobacco use type: Cigarette e-Cigarette/Vaping Use: Never Used Advance Directives Date on File: 06/20/23 service: No Current occupational status: retired Cognitive needs: No Hearing needs: Yes Vision needs: Yes Questionnaire Medicare Wellness Checkup What is your age?: 80 or older What gender do you identify with?: female During the past 4 weeks, how much have you been bothered by emotional problems such as feeling anxious, depressed, irritable, sad or downhearted, and blue?: slightly During the past 4 weeks, has your physical & emotional health limited your social activities with family, friends, neighbors, or groups?: not at all During the past 4 weeks, how much bodily pain have you generally had?: moderate pain During the past 4 weeks, was someone available to help you if you needed & wanted help?: yes, as much as I wanted During the past 4 weeks, what was the hardest physical activity you could do for at least 2 minutes?: light Can you get to places out of walking distance without help? (For eg., can you travel alone on buses, taxis or drive your car?): No Can you go shopping for groceries or clothes without someone's help?: No Can you prepare your own meals?: Yes Can you do your housework without help?: No Because of any health problems, do you need the help of another person with your personal care needs such as eating, bathing, dressing or getting around the house?: No Can you handle your own money without help?: Yes During the past 4 weeks, how would you rate your health in general?: fair During the past 4 weeks how have things been going for you?: good & bad parts about equal Are you having difficulties driving your car?: not applicable, I don't use a car Do you always fasten your seat belt when you are in a car?: yes, usually During past 4 weeks, have you been bothered by the following: never: Falling or dizzy when standing up, Sexual problems?, Teeth or denture problems? and Problems using the telephone?, sometimes: Trouble eating well? and often: Tiredness or fatigue? Have you fallen 2 or more times in the past year?: No Are you afraid of falling?: Yes Are you a smoker?: no During the past 4 weeks, how many drinks of wine, beer, or other alcoholic beverages did you have?: no alcohol at all Do you exercise for about 20 minutes 3 or more times a week?: no, I usually do not exercise this much Have you been given information to help with the following?: yes: Hazards in your house that might hurt you? and yes: Keeping track of your medications? How often do you have trouble taking medicines the way you have been told to take them?: I always take medicine as prescribed How confident are you that you can control & manage most of your health problems?: somewhat confident What is your race?: White Mini Mental State Exam (MMSE) Orientation What is the (year) (season) (date) (day) (month)?: year (2024), season (Spring), date (07/01/2024), day (Sunday) and month (June) Where are we (state) (county) (town or city) (hospital) (floor)?: state ([place]), county ([place]), town or city ([place]) and hospital/clinic ([facility]) Score Score: 9 Activity of Daily Living Bathing - sponge bath, tub bath or shower: receives no assistance (gets in/out by self, if usual bathing means Dressing - getting clothes from closets & drawers, including inner/outer garments & fasteners.: gets clothes & gets completely dressed without help Toileting - going to the 'toilet room' for urine/bowel elimination & cleaning self/arranging clothes: goes to toilet room, cleans self, arranges clothes without help Transfer: moves in & out of bed and chair without help (may use support object) Continence: has occasional 'accidents' Feeding: feeds self without help Total Score: 0 Information obtained from: patient Using telephone: independent Traveling: needs assistance Shopping: dependent Preparing meals: dependent Housework: needs assistance Taking medicine: independent Managing money: independent PHQ-9 Over the last 2 weeks, how often have you been bothered by any of the following problems? 1. Little interest or pleasure in doing things: not at all 2. Feeling down, depressed, or hopeless: not at all 3. Trouble falling or staying asleep, or sleeping too much: not at all 4. Feeling tired or having little energy: several days 5. Poor appetite or overeating: more than half the days 6. Feeling bad about yourself - or that you are a failure or have let yourself or your family down: several days 7. Trouble concentrating on things, such as reading the newspaper or watching television: not at all 8. Moving or speaking so slowly that other people could have noticed. Or the opposite - being so fidgety or restless that you have been moving around a lot more than usual: not at all 9. Thoughts that you would be better off or of hurting yourself in some way: not at all Total score: 4 Depression Screening Interpretation: Negative Depression Screening Done: Yes 21759 - PHQ-9 Billing: Yes Source: Developed by Drs. Chaz Mayer, Lily Ruggiero, Aayush Severino and colleagues, with an educational melinda from [employer]. Review of Systems Const Reports no additional complaints Eyes Denies change in vision ENT Reports no additional complaints Card Reports no additional complaints Resp Reports no additional complaints GI Denies abdominal pain, Denies melena, Denies bloating and Denies change in bowel habits Reports as per HPI Musc Reports back pain Neuro Denies Abnormal speech present, Denies confusion and Denies Sensory deficit (Neuro) Psych Denies confusion Endo Reports as per HPI Alejandro/Lymph Reports no additional complaints Aller/Immun Reports no additional complaints Physical Exam Vital Signs: Last Vital Signs Temp 98.2 F 07/01/24 11:37 Pulse 70 07/01/24 11:37 Resp 17 07/01/24 11:37 BP 134/80 07/01/24 11:37 Pulse Ox 96 07/01/24 11:37 Oxygen Delivery Method Room Air 07/01/24 11:37 BMI result Body Mass Index 25.6 Const General: No confusion Orientation/consciousness: No confusion Eyes General: appearance normal, both eyes and all related structures EOM: EOMs intact bilaterally Neck Neck: Yes full ROM Resp Effort & Inspection: normal respiratory effort, able to speak in complete sentences and normal respiratory pattern Cardio Other: Irregularly irregular rhythm GI Inspection: Yes normal to inspection Back/Spine/Pelvis Other: Slight tenderness on palpation over paraspinal muscles in lower back, no pinpoint tenderness over spine Neuro General: No confusion Cranial nerves: Yes CN's II-XII intact bilaterally Speech: No Abnormal speech present Motor exam (neuro): 5/5 motor strength present throughout Sensory Exam: No Sensory deficit (Neuro) Extrem General: No pedal edema Psych Speech and movement: Normal speech and movement present Affect: normal affect Attitude: cooperative Thought process: Normal thought process present Thought content: Normal thought content present Assessment & Plan Assessment & Plan (1) Encounter for subsequent annual wellness visit (AWV) in Medicare patient: Code(s): Z00.00 - Encounter for general adult medical examination without abnormal findings Plan: Medical wellness checklist reviewed, discussed with patient and daughter and updated. Patient is up-to-date with vaccinations and screenings but does not want to get further Shingrix or RSV vaccine (2) Essential hypertension: Code(s): I10 - Essential (primary) hypertension Plan: Blood pressure at goal of less than 130/80. Continue with current medication. Reinforced importance of following a low sodium diet, getting regular exercise, and lowering stress levels. (3) Dyslipidemia: Code(s): E78.5 - Hyperlipidemia, unspecified Plan: Fasting lipids within normal limits, continue rosuvastatin 5 mg 3 times a week (4) Type 2 diabetes mellitus with diabetic neuropathy, with long-term current use of insulin: Code(s): E11.40 - Type 2 diabetes mellitus with diabetic neuropathy, unspecified; Z79.4 - skilled nursing (current) use of insulin Plan: Change Lantus dosing to a.m. at start at 5 units and continue with Humalog 3 times a day before meals following sliding scale coverage continue monitoring blood sugar and may adjust Lantus dose, , blood sugar should not go more than 140 mg/dL.Up-to-date with diabetes retinopathy screening (5) Degenerative disc disease, thoracic: Code(s): M51.34 - Other intervertebral disc degeneration, thoracic region Plan: continue taking tramadol 50 mg twice a day as needed for pain in back, may try taking half a tablet of the tramadol and combined it with the Tylenol arthritis twice a day as needed. (6) Degenerative disc disease, lumbar: Code(s): M51.369 - Other intervertebral disc degeneration, lumbar region without mention of lumbar back pain or lower extremity pain Plan: continue taking tramadol 50 mg twice a day as needed for pain in back, may try taking half a tablet of the tramadol and combined it with the Tylenol arthritis twice a day as needed. (7) Osteoarthritis of knees, bilateral: Code(s): M17.0 - Bilateral primary osteoarthritis of knee Plan: continue taking tramadol 50 mg twice a day as needed for pain in back, may try taking half a tablet of the tramadol and combined it with the Tylenol arthritis twice a day as needed. (8) Urinary frequency: Code(s): R35.0 - Frequency of micturition Plan: Will check urinalysis with reflex culture and sensitivity, patient is scheduled to see a fire battalion chief and advised to discuss maybe cutting back on some of her diuretics Medications: Refilled metformin 1,000 mg PO BID 3 months 180 tabs 1RF Quality Reporting (2019) Depression/Bipolar (159/160/161/177) PHQ-9: Total score: 4 Coding Level of Care Code Medicare Subsequent (G0439) Est Pt Level 4 (29028) Diagnoses Encounter for subsequent annual wellness visit (AWV) in Medicare patient Z00.00 Essential hypertension I10 Dyslipidemia E78.5 Type 2 diabetes mellitus with diabetic neuropathy, with long-term current use of insulin E11.40; Z79.4 Degenerative disc disease, thoracic M51.34 Degenerative disc disease, lumbar M51.369 Osteoarthritis of knees, bilateral M17.0 Urinary frequency R35.0 Additional Codes PHQ-9 - 46095 - PHQ-9 Billing: Yes ([id number])
--- OUTSIDE RECORDS SUMMARY | 2024-07-01 12:52 | XMS_ITS | Clinical Summary ---
Author Organization [facility] Address [address] [place] [address] Phone Care Team Providers Care Die Storage Clerk Name Role Phone Unavailable Primary Care Provider [...] Chronic kidney disease stage 1 07/13/2020 Immunizations Immunization Administration Dates Next Due Influenza (IM) Preservative [...] Visit [facility] [address] [place] [id number] Gume Moyer MD [address] [facility] [address] [place] [address] Health Maintenance Due Date Last Done Comments Pneumococcal Vaccine: 50+ Years (2 of 2 - PCV) 02/23/2014 02/23/2013 Diabetes: Ophthalmology Exam 04/19/2020 Diabetes: Pedal Pulse Checked 04/19/2020 Diabetes: Sensory Foot Exam 04/19/2020 Diabetes: Visual Foot Exam 04/19/2020 Diabetes: Hemoglobin A1C 03/20/2023 12/18/2022 Influenza Vaccine (Season Ended) 2024 01/21/2021, 11/24/2013 Pneumococcal Vaccine: Peds ( 0 to 5 Years) and At-Risk Patients (6 to 49 Years) Discontinued 02/23/2013 Hepatitis B Vaccine Aged Out No longe r eligible based on patient's age to [place] [id number] [facility] Medicare [facility] Medicare
--- OUTSIDE RECORDS SUMMARY | 2024-07-01 12:52 | XMS_ITS | Clinical Summary ---
Author Organization [facility] Address [address] [place] [address] Care Team Providers Care Cooking Instructor Name Role Phone Patricia Nicole MD Primary [...] mononeuropathy, with long-term current use of insulin ([facility]) Take 1 capsule (100 mg total) by mouth 3 (three) times a day. 90 capsule 3 12/24/2022 Active hydroCHLOROthiazide (HYDRODIURIL) 25 MG tabletIndications:C HF (congestive heart failure) ([facility]),Primary hypertension,Reduce d ejection fraction concurrent with and due to acute heart failure ([facility]) Take 1 tablet (25 mg total) by [...] 25 MG tabletIndications:C HF (congestive heart failure) ([facility]),Primary hypertension,Reduce d ejection fraction concurrent with and due to acute heart failure ([facility]) Take 1 tablet (25 mg total) by [...] place to sleep or slept in a fdc (including now)? No 12/18/2022 Sex and Gender [...] 65 - 99 mg/dL 12/24/2022 7:23 AM [facility] Comment:Fasting: <100 mg/dL, Non-Fasting: <200 mg/dL (ADA 2005) Blood Urea Nitrogen (BUN) 14 8 - 21 mg/dL 12/24/2022 7:23 AM [facility] Creatinine 0.6 0.4 - 1.1 mg/dL 12/24/2022 7:23 AM [facility] eGFR 88 >59 12/24/2022 7:23 AM [facility] Comment:CKD-EPI (2020) in mL /min/1.73 sq meters. Sodium 137 136 - 145 mmol/L 12/24/2022 7:[address] [facility] Potassium 3.8 3.4 - 5.3 mmol/L 12/24/2022 7:[address] [facility] Chloride 101 98 - 107 mmol/L 12/24/2022 7:[address] [facility] CO2 28 22 - 33 mmol/L 12/24/2022 7:[address] [facility] Anion Gap 8 7 - 17 12/24/2022 7:[address] [facility] Calcium 9.3 8.7 - 10.5 mg/dL 12/24/2022 7:[address] [facility] BUN/Creatinine Ratio 23 10.0 - 25.0 Ratio 12/24/2022 7:[address] [facility] Blood specimen (specimen) (Plasma/Serum) 12/24/2022 6:14 AM EDT 12/24/2022 6:43 AM EDT Silvestre Juarez MD [facility] See Below [facility] [address] [place] [address] * (ABNORMAL) Hemoglobin A1c with Estimated Average Glucose (12/18/2022 3:24 AM EDT) Hemoglobin A1C 7.5(H) <5.7 % 12/18/2022 4:[address] [facility] Comment: A1c% ? Interpretation 5.7 - 6.0 ?Increase risk of diabetes 6.1 - 6.4 ?Higher risk of diabetes > or = 6.5 ?? Consistent with diabetes Diabetes Care, 33(Supp 1):S1-S61, 2010 Estimated Average Glucose 169 mg/dL 12/18/2022 4:[address] [facility] Blood specimen (specimen) Blood specimen / Unknown 12/18/2022 3:24 AM EDT 12/18/2022 3:40 AM EDT Chiquita Adler APRN [facility] See Below [facility] [address] [place] [address] from Last 3 Months or Most Recently Relevant to Health Maintenance Advance Directives * Full Code (Latest Code Status on File) Date Activated Date Inactivated Comments 12/18/2022 2:12 AM Question Answer Comments Decision Thoroughly Discussed with: Unable to Di scuss Care Teams Cooking Instructor Relationship Specialty Start Date End Date Patricia Nicole MD [address] [place] [address] [place] [address] PCP - General Internal Medicine 12/18/22
== END 2024-07-01 12:43 | disposition home or self-care (01) ==
LOC: HO.HMCC 10:40
PROVIDERS: PCP Internal Medicine; Visit Provider Internal Medicine
DX: Z00.00 Encounter for general adult medical examination without abnormal findings (principal); E11.40 Type 2 diabetes mellitus with diabetic neuropathy, unspecified; Z79.4 Long term (current) use of insulin; I10 Essential (primary) hypertension; E78.5 Hyperlipidemia, unspecified; M51.34 Other intervertebral disc degeneration, thoracic region; M51.369 Other intervertebral disc degeneration, lumbar region without mention of lumbar back pain or lower extremity pain; M17.0 Bilateral primary osteoarthritis of knee; R35.0 Frequency of micturition

== ENCOUNTER → 2024-07-01 10:40 | Outpatient (BNVA) | payer MEDICARE, SELFPAY | PROVIDERS: PCP Internal Medicine; Visit Provider Internal Medicine | DX: Z00.01 Encounter for general adult medical examination with abnormal findings (principal); I10 Essential (primary) hypertension; E78.5 Hyperlipidemia, unspecified; M51.34 Other intervertebral disc degeneration, thoracic region; M51.369 Other intervertebral disc degeneration, lumbar region without mention of lumbar back pain or lower extremity pain; M17.0 Bilateral primary osteoarthritis of knee; R35.0 Frequency of micturition; E11.40 Type 2 diabetes mellitus with diabetic neuropathy, unspecified; Z79.4 Long term (current) use of insulin | CPT/HCPCS: 96127; 99212 ==

== ENCOUNTER 2024-07-02 17:07 | Outpatient (REF) | payer MEDICARE, SELFPAY ==
[2024-07-02 17:14] LABS: Appearance Urine Cloudy; Color Urine Yellow; Glucose Urine UA Negative (Negative); Leukocyte Esterase Urine Large (3+) (Negative); Nitrite Urine Negative (Negative); PH 5.5 (5.0-9.0); Specific Gravity - Urine 1.015 (1.005-1.025); UMIC TRIGGER UACC YES; Urine Blood Negative (Negative); Urine Ketones Negative (Negative); Urine Protein Trace mg/dL (Neg-Trace)
[2024-07-02 17:40] LABS: Bacteria Urine 4+ (None Seen); Hyaline Casts Urine 0-2 /LPF (0-2); RBC Urine 0-2 /HPF (0-2); Squamous Epithelial Cell Urine 0-2 /HPF (0-2); UACC Culture Trigger YES; WBC Urine >50 /HPF (0-5)
--- OUTSIDE RECORDS SUMMARY | 2024-07-02 18:26 | XMS_ITS | Clinical Summary ---
Author Organization [facility] Address [address] [place] [address] Phone Care Team Providers Care Net Solutions Architect Name Role Phone Unavailable Primary Care Provider [...] Visit [facility] [address] [place] [phone] Gume Moyer MD [address] [facility] [address] [place] [address] Health Maintenance Due Date Last Done [...] [place] [id number] [facility] Medicare [facility] Medicare
--- OUTSIDE RECORDS SUMMARY | 2024-07-02 18:26 | XMS_ITS | Clinical Summary ---
Author Organization [facility] Address [address] [place] [address] Care Team Providers Care Supervisor Baking Name Role Phone Patricia Nicole MD Primary Care Provider Allergies Active Allergy Reactions Criticality Noted Date Comments Cephalexin Other (See Comments) 07/13/2020 Latex Rash/Dermatitis,Othe r (See Comments) Low 07/13/2020 Lisinopril Other (See Comments) 07/13/2020 Sulfa Antibiotics Other (See Comments) Low 07/14/19 21 GI upset Medications amLODIPine (NORVASC) 5 MG tablet Take 1 tablet (5 mg total) by mouth daily. 3 Active apixaban (Eliquis) 5 MG tablet Take 1 tablet (5 mg total) by mouth 2 times a day. 3 Active losartan (COZAAR) 50 MG tablet Take 1 tablet (50 mg total) by mouth daily. 3 Active rosuvastatin (CRESTOR) 5 MG tablet Take 1 tablet (5 mg total) by mouth daily. 3 Active metoPROLOL SUCCINATE (TOPROL-XL) 25 MG 24 hr tablet Take 1 tablet (25 mg total) by mouth daily. 3 Active metFORMIN (GLUCOPHAGE) 1000 MG tablet Take 1 tablet (1,000 mg total) by mouth 2 times a day. Active insulin glargine (Lantus) 100 units/mL injection Inject 0.08-0.1 mL (8-10 Units total) under the skin nightly. 3 Active Insulin Lispro (HumaLOG KwikPen) 200 UNIT/ML CONCENTRATED prefilled pen injection 0 Refills, Maintenance, 10/03/22 10:19:00 EDT, Partial fill upon patient request if the prescription is for a schedule II opioid drug. 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 90 capsule 3 3 Active hydroCHLOROthiaz servando (HYDRODIURIL) 25 MG tabletIndication s:CHF (congestive heart failure) (HCC),Primary hypertension,Red uced ejection fraction concurrent with and due to acute heart failure (HCC) Take 1 tablet (25 mg total) by mouth daily. 30 tablet 3 3 Active melatonin 3 MG Tab tabletIndication s:Primary insomnia Take 2 tablets (6 mg total) by mouth nightly. 60 tablet 3 3 Active PANTOprazole (PROTONIX) 40 MG EC tabletIndication s:Gastroesophage al reflux disease without esophagitis Take 1 tablet (40 mg total) by mouth 2 (two) times a day. 60 tablet 3 3 Active spironolactone (ALDACTONE) 25 MG tabletIndication s:CHF (congestive heart failure) (HCC),Primary hypertension,Red uced ejection fraction concurrent with and due to acute heart failure (HCC) Take 1 tablet (25 mg total) by mouth every morning with breakfast. 30 tablet 3 3 Active Active Problems Problem Noted Date Diagnosed Date Reduced ejection fraction co ncurrent with and due to acute heart failure 12/23/2022 Acute hypoxic respiratory failure 12/23/2022 Controlled type 2 diabetes m jorgeitus with diabetic mononeuropathy, with long-term current use [...] place to sleep or slept in a nursing home (including now)? No 12/18/2022 Comments Unknown Sex and Gender Information Value Date Recorded Sex Assigned at Female 12/18/2022 12:35 AM EDT Legal Sex Female 6:17 PM EST Gender Identity Female 12/18/2022 12:35 AM EDT [...] 65 - 99 mg/dL 12/24/2022 7:23 AM [facility] Comment:Fasting: <100 mg/dL, Non-Fasting: <200 mg/dL (ADA 2005) Blood Urea Nitrogen (BUN) 14 8 - 21 mg/dL 12/24/2022 7:23 AM [facility] Creatinine 0.6 0.4 - 1.1 mg/dL 12/24/2022 7:23 AM [facility] eGFR 88 >59 12/24/2022 7:23 AM [facility] Comment:CKD-EPI (2020) in mL /min/1.73 sq meters. Sodium 137 136 - 145 mmol/L 12/24/2022 7:23 AM [facility] Potassium 3.8 3.4 - 5.3 mmol/L 12/24/2022 7:23 AM [facility] Chloride 101 98 - 107 mmol/L 12/24/2022 7:23 AM [facility] CO2 28 22 - 33 mmol/L 12/24/2022 7:23 AM [facility] Anion Gap 8 7 - 17 12/24/2022 7:23 AM [facility] Calcium 9.3 8.7 - 10.5 mg/dL 12/24/2022 7:23 AM [facility] BUN/Creatinine Ratio 23 10.0 - 25.0 Ratio 12/24/2022 7:23 AM [facility] Blood specimen (specimen) (Plasma/Serum) 12/24/2022 6:14 AM EDT 12/24/2022 6:43 AM EDT us Silvestre Juarez MD LAB BLOOD ORDERABLES Fin al Result HOSPITAL LAB See Below [address] [address] * (ABNORMAL) Hemoglobin A1c with Estimated Average Glucose (12/18/2022 3:24 AM EDT) Hemoglobin A1C 7.5(H) <5.7 % 12/18/2022 4:47 AM [facility] Comment: A1c% ? Interpretation 5.7 - 6.0 ?Increase risk of diabetes 6.1 - 6.4 ?Higher risk of diabetes > or = 6.5 ?? Consistent with diabetes Diabetes Care, 33(Supp 1):S1-S61, 2010 Estimated Average Glucose 169 mg/dL 12/18/2022 4:47 AM [facility] Blood specimen (specimen) Blood specimen / Unknown 12/18/2022 3:24 AM EDT 12/18/2022 3:40 AM EDT us Chiquita Adler WASH HOUSE SUPERVISOR LAB BLOOD ORDERABLES Final R esult HOSPITAL LAB See Below [address] [address] from Last 3 Months or Most Recently Relevant to Health Maintenance [place] [address] [place] [id number] [facility] MEDICARE PART A & B Advance Directives * Full Code (Latest Code Status on File) Date Activated Date Inactivated Comments 12/18/2022 2:12 AM Question Answer Comments Decision Thoroughly Discussed with: Unable to Di scuss Care Teams Supervisor Baking Relationship Specialty Start Date End Date Patricia Nicole MD [address] [facility] [place] [address] PCP - General Internal Medicine 12/18/22
== END 2024-07-02 17:08 | disposition home or self-care (01) ==
LOC: HO.LNP 17:07
PROVIDERS: Visit Provider Internal Medicine
DX: R35.0 Frequency of micturition (principal)
CPT/HCPCS: 81001; 87086

== ENCOUNTER → 2024-07-09 10:51 | Outpatient (REF) | payer MEDICARE, SELFPAY ==
--- NOTE | 2024-07-09 10:58 | CA_ITS ---
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 Study Quality: Fair ECG Rhythm: Sinus Conclusions: - The left ventricular systolic function is low normal. The visually estimated ejection fraction is between 50-55%. Diastolic function is - The left atrium is severely dilated. - There is mild to moderate aortic valve stenosis. - Mild pulmonary hypertension is present. Findings Procedure Information The study quality is limited by the patients inability to tolerate the test. Left Ventricle Normal left ventricular cavity size. There is normal left ventricular wall thickness. The left ventricular systolic function is low normal. The visually estimated ejection fraction is between 50-55%. Diastolic function is indeterminate on the basis of available data. Right Ventricle Mildly increased right ventricular cavity size. There is mildly decreased right ventricular systolic function. Atria The left atrium is severely dilated. The right atrium is mildly dilated. Aortic Valve There is a normal trileaflet aortic valve. There is mild calcification of the aortic valve. There is mild to moderate aortic valve stenosis. There is no aortic valve regurgitation. Dimensionless index 0.4. Mitral Valve The mitral valve appears normal. There is mild mitral valve regurgitation. There is no mitral valve stenosis. Pulmonic Valve There is trace pulmonic valve regurgitation. Tricuspid Valve There is mild to moderate tricuspid valve regurgitation. Mild pulmonary hypertension is present. Great Vessels The asc aorta is normal in size. Venous The inferior vena cava is normal in size and collapses greater than 50% with inspiration. Pericardium/Pleural There is no evidence of pericardial effusion. Prior Study Comparison Changes noted compared to prior study dated: 08/31/2023. Improved LVEF. Measurements 2D Linear Measurements IVSd: 0.95 0.6-0.9/0.6-1.0 cm LVIDd: 4.72 3.9-5.3/4.2-5.9 cm LVIDd Index: 2.74 2.4-3.2/2.2-3.1 cm/m2 LVIDs: 3.54 2.0-3.6 cm LVPWd: 0.99 0.7-1.1 cm LA Diam: 3.90 2.7-3.8/3.0-4.0 cm LAIDs Index: 2.27 1.5-2.3 cm/m2 LV Mass: 198.28 67-162/88-224 g LV Mass Index: 115.28 43-95/49-115 g/m2 LVOT Diam: 2.00 3.0+(-)1.3 cm 2D Systolic Function EF 4C: 52.50 >55% Mitral Valve MV VTI: 0.30 MV Pk Sunil: 1.31 MV Mn Sunil: 0.53 MV Pk Grad: 7.00 MV Mn Grad: 2.00 MV Pk E: 1.05 MV Decel Time: 179.00 E'Lateral: 9.36 E'Medial: 5.87 E/E' Med: 17.90 E/E' Lat: 11.20 PHT: 52.00 MVA PHT: 4.23 MVA Continuity: 1.94 Decel [place]: 5.84 Aortic Valve AoV Pk Sunil: 2.25 AoV Mn Sunil: 1.64 AoV VTI: 0.54 AoV Pk Grad: 20.00 Aov Mn Grad: 12.00 DAVID Cont.VTI: 1.08 LVOT LVOT Pk Sunil: 0.90 LVOT Mn Sunil: 0.62 LVOT VTI: 0.19 LVOT Pk Grad: 3.00 LVOT Mn Grad: 2.00 LVOT Diam: 2.00 LVOT Area: 3.14 Diastolic Function MV Pk E: 1.05 E'Medial: 5.87 E/E' Med: 17.90 E' Laterial: 9.36 E/E' Lat: 11.20 Right Ventricle TAPSE (mm): 17.10 TVS' Sunil: 9.57 Tricuspid Valve TR Pk Sunil: 3.14 TR Pk Grad: 39.00 RA Press: 3.00 RVSP: 42.00 Great Vessels Aorta Sinus of Valsalva: 3.08 2.0-3.5 cm Ao Asc: 3.50 2.1-3.4 cm Updated in Other Vendor System with Status of Final Geoff Callahan MD electronically signed on 07/11/2024 12:04:49 PM with status of Final
--- OUTSIDE RECORDS SUMMARY | 2024-07-09 13:00 | XMS_ITS | Clinical Summary ---
Author Organization [facility] Address [address] [place] [address] Care Team Providers Care Presidential Helicopter Crew Chief Name Role Phone Patricia Nicole MD Primary [...] place to sleep or slept in a longterm (including now)? No 12/18/2022 Comments Unknown Sex [...] - 99 mg/dL 12/24/2022 7:23 AM [facility] Comment:Fasting: <100 mg/dL, Non-Fasting: <200 mg/dL (ADA 2005) Blood Urea Nitrogen (BUN) 14 8 - 21 mg/dL 12/24/2022 7:23 AM [facility] Creatinine 0.6 0.4 - 1.1 mg/dL 12/24/2022 7:23 AM [facility] eGFR 88 >59 12/24/2022 7:23 AM [facility] Comment:CKD-EPI (2020) in mL /min/1.73 sq meters. Sodium 137 136 - 145 mmol/L 12/24/2022 7:23 AM [facility] Potassium 3.8 3.4 - 5.3 mmol/L 12/24/2022 7:23 AM [facility] Chloride 101 98 - 107 mmol/L 12/24/2022 7:23 AM [facility] CO2 28 22 - 33 mmol/L 12/24/2022 7:23 AM [facility] Anion Gap 8 7 - 17 12/24/2022 7:23 AM [facility] Calcium 9.3 8.7 - 10.5 mg/dL 12/24/2022 7:23 AM [facility] BUN/Creatinine Ratio 23 10.0 - 25.0 Ratio 12/24/2022 7:23 AM [facility] Blood specimen (specimen) (Plasma/Serum) 12/24/2022 6:14 AM EDT 12/24/2022 6:43 AM EDT us Silvestre Juarez MD LAB BLOOD ORDERABLES Fin al Result HOSPITAL LAB See Below [address] [address] * (ABNORMAL) Hemoglobin A1c with Estimated Average Glucose (12/18/2022 3:24 AM EDT) Hemoglobin A1C 7.5(H) <5.7 % 12/18/2022 4:47 AM [facility] Comment: A1c% ? Interpretation 5.7 - 6.0 ?Increase risk of diabetes 6.1 - 6.4 ?Higher risk of diabetes > or = 6.5 ?? Consistent with diabetes Diabetes Care, 33(Supp 1):S1-S61, 2010 Estimated Average Glucose 169 mg/dL 12/18/2022 4:47 AM [facility] Blood specimen (specimen) Blood specimen / Unknown 12/18/2022 3:24 AM EDT 12/18/2022 3:40 AM EDT us Chiquita Adler [employer] LAB BLOOD ORDERABLES Final R esult HOSPITAL LAB See Below [address] [address] from Last 3 Months or Most Recently Relevant to Health Maintenance [place] [id number] [facility] MEDICARE PART A & B Advance Directives * Full Code (Latest Code Status on File) Date Activated Date Inactivated Comments 12/18/2022 2:12 AM Question Answer Comments Decision Thoroughly Discussed with: Unable to Di scuss Care Teams Presidential Helicopter Crew Chief Relationship Specialty Start Date End Date Patricia Nicole MD [address] [facility] [place] [address] PCP - General Internal Medicine 12/18/22
--- OUTSIDE RECORDS SUMMARY | 2024-07-09 13:00 | XMS_ITS | Clinical Summary ---
Author Organization [facility] Address [address] [place] [address] [address] [place] [phone] Phone Care Team Providers Care Director Of Email Marketing Name Role Phone Unavailable Primary Care Provider [...] Visit [facility] [address] [place] [phone] Gume Moyer MD [address] [facility] [address] [place] [address] Health Maintenance Due Date Last [...] [place] [id number] [facility] Medicare [facility] Medicare
== END ==
LOC: HO.CARD 10:51
PROVIDERS: PCP Internal Medicine; Visit Provider Internal Medicine
DX: I50.42 Chronic combined systolic (congestive) and diastolic (congestive) heart failure (principal)
CPT/HCPCS: 93306

== ENCOUNTER → 2024-07-09 10:58 | Outpatient (BNV) | payer MEDICARE, SELFPAY | PROVIDERS: PCP Internal Medicine; Visit Provider Internal Medicine | DX: I50.42 Chronic combined systolic (congestive) and diastolic (congestive) heart failure (principal); I35.2 Nonrheumatic aortic (valve) stenosis with insufficiency; I27.20 Pulmonary hypertension, unspecified | CPT/HCPCS: 93306 ==

== ENCOUNTER 2024-07-29 10:13 | Outpatient (AMB) | payer MEDICARE, SELFPAY ==
--- NOTE | 2024-07-29 11:05 | A.OFFVIS_ITS ---
Intake Visit Reasons: kidney stones/UTI Intake Note: New patient presents today for kidney stones/UTI (brought urine from home- 9:45am this morning) Urology Medication:None Blood Thinner:Apixaban Antibiotic Allergies:None PVR:221 Creative Services Specialist Required: No Accompanied by: Self / Same As Patient Allergies latex [Latex] Allergy (Severe, Verified 07/29/24 11:09) RASH cephalexin [CEPHALEXIN] Allergy (Intermediate, Verified 07/29/24 11:09) SWELLING adhesive tape [Adhesive Tape] Allergy (Mild, Verified 07/29/24 11:09) CONTACT DERMATITIS empagliflozin [From Jardiance] Adverse Reaction (Severe, Verified 07/29/24 11:09) Dizziness flecainide [From Tambocor] Adverse Reaction (Severe, Verified 07/29/24 11:09) HEART RACING Biaxin Adverse Reaction (Intermediate, Verified 07/29/24 11:09) plapitations lisinopril [LISINOPRIL] Adverse Reaction (Intermediate, Verified 07/29/24 11:09) cough, nausea bacitracin [From Cortisporin] Adverse Reaction (Mild, Verified 07/29/24 11:09) EYE IRRITATION hydrocortisone [From Cortisporin] Adverse Reaction (Mild, Verified 07/29/24 11:09) EYE IRRITATION neomycin [From Cortisporin] Adverse Reaction (Mild, Verified 07/29/24 11:09) EYE IRRITATION nitrofurantoin Adverse Reaction (Verified 07/29/24 11:09) Loss of Appetite Medication List - Last Reconciled 07/29/24 by Fili Maloney MD acetaminophen ER (Tylenol Arthritis Pain) 650 mg PO Q8H apixaban (Eliquis) 5 mg PO BID coenzyme Q10 (CoQ-10) 100 mg PO DAILY furosemide (Lasix) 20 mg PO DAILY gabapentin 300 mg (3 x 100 mg) PO BEDTIME insulin glargine (Lantus Solostar U-100 Insulin) 10 units subcut BEDTIME insulin lispro (Humalog KwikPen U-200 Insulin) 2 - 12 units subcut USEASDIRECTD losartan 50 mg PO DAILY metformin 1,000 mg PO BID 3 months metoprolol succinate ER 25 mg PO DAILY pantoprazole 40 mg PO DAILY pen needle, diabetic As directed QID ac and hs rosuvastatin 5 mg PO MOWEFR 90 days spironolactone 25 mg PO DAILY tramadol 50 mg PO Q8H PRN vit C,H-Bf-blhrf-lutein-zeaxan 250-90-40-1 mg (PreserVision AREDS-2) 1 tab PO BID HPI Comments Details: 07/29/24--Aminah is here with her daughter she has been seen in our office in the past due to kidney stones. Past medical history significant for degenerative disc disease, diabetes, congestive heart failure. She presents because of persistent UTI symptoms of urgency frequency. She states that she was seen by her PCP in June and the furosemide was discontinued which has helped to some degree with her urinary symptoms. Urinalysis today is notable for leukocytes and blood. I reviewed prior imagin08/30/23--CTAP with IV contrast--KIDNEYS AND URETERS: Bilateral hypodense renal foci demonstrating fluid attenuation, statistically representing cysts, not requiring follow-up. Right- sided nephrolithiasis versus vascular calcification measuring 1.1 cm without hydronephrosis. No left-sided nephrolithiasis or hydronephrosis. The patient states that she wears a panty liner and generally is able to get to the bathroom but will occasionally have some leakage prior to getting to the bathroom to urinate. I have discussed further evaluation with CT urogram I will send urine for culture and urine FISH. Discussion today included trial of Gemtesa/anticholinergic at this time the patient is reluctant to start a new medication will hold on medication therapy for now and have her follow-up after CT urogram for office cystoscopy. 09/04/22-- Aminah is an 82-year-old female who presents to the office for 6- months follow-up for renal calculi. The patient denies hematuria or any other urinary symptoms. She was seen last by SALES ENABLEMENT ANALYST Alesia Godinez on 03/06/22---- Aminah is an 81-year-old female who is here for follow-up. She has history of kidney stones. 09/04/22--Evaluation today-- Blood: negative, leukocytes: negative. Renal US-- 02/15/22-- nonobstructive calculi in the mid pole of the right kidney. Plan: KUB X-ray was ordered to be done today. Follow-up after a year or sooner if needed. Renal US prior was ordered. 03/06/11--She is here in follow-up post renal ultrasound. I have discussed ultrasound results with the patient. In review imaging she has a stable 8 mm right kidney stone. The patient states in the past she did have shockwave lithotripsy. She is not interested in any procedures at this time as the stone is not bothering her. The patient states that she fell about 3 months ago and has been having chronic lower back pain since, she is taking 1 Tylenol about every 6 hours. Therapeutic plan--- fluids encouraged, surveillance imaging. KUB in 6 months. Imagin02/15/22- renal us - right kidney stone stable - no hydro 12/13/21- CTKUB - right kidney 8 mm stone - 07/07 CT scan 8 mm proximal ureteric stone, 8 mm upper pole right stone - 08/06 renal ultrasound with 8 mm upper pole stone Intervention - 06/2020 ESWL right side PFSH Medical History Right nephrolithiasis Recurrent UTI (urinary tract infection) Hiatal hernia Gastritis Opioid-induced constipation Degenerative disc disease, thoracic Degenerative disc disease, lumbar QAGAN [place] (hard of hearing) Wears hearing aid in both ears Uses walker Hx of cardiac pacemaker (10/06/23) Age-related osteoporosis with current pathological fracture, vertebra(e), initial encounter for fracture Compression fracture of lumbar spine, non-traumatic Nontraumatic compression fracture of thoracic vertebra Moderate aortic stenosis Diabetes mellitus Congestive heart failure Urinary tract infection Hypertension Paroxysmal atrial fibrillation Cholelithiasis Renal cyst Nephrolithiasis Pulmonary hypertension Non-rheumatic mitral regurgitation Permanent atrial fibrillation Microcytic anemia Atrophic vaginitis Osteoarthritis of knees, bilateral Essential hypertension Dyslipidemia Type 2 diabetes mellitus with diabetic neuropathy, with long-term current use of insulin Surgical History History of cardiac radiofrequency ablation (RFA) Hx of cardiac catheterization History of esophagogastroduodenoscopy (EGD) (~10/2022) History of lumbar discectomy History of lobectomy of lung History of hysterectomy History of total right knee replacement (TKR) Lumbar radiculopathy Family History Father Diabetes mellitus Mother Diabetes mellitus Myocardial infarction Sister Cancer Sister No problems noted. Son No problems noted. Daughter No problems noted. Social History Household Members: None Housing: House Are you a primary daycare teacher to a significant other at home: No Do you presently have visiting nurse or other home services: No (supportive family) Unable to assess alcohol history related to: Unable to respond Alcohol intake: never Patient Tobacco Use Status: Former Tobacco user Tobacco use type: Cigarette e-Cigarette/Vaping Use: Never Used Advance Directives Date on File: 06/20/23 service: No Current occupational status: retired Cognitive needs: No Hearing needs: Yes Vision needs: Yes Review of Systems Const All systems reviewed & are unremarkable except as noted in HPI and below Reports no additional complaints Eyes Reports no additional complaints ENT Reports no additional complaints Card Reports no additional complaints Resp Reports no additional complaints GI Reports no additional complaints Reports as per HPI Musc Reports no additional complaints Skin/Breast Reports system reviewed and no additional complaints, except as documented Neuro Reports no additional complaints Psych Reports no additional complaints Endo Reports no additional complaints Alejandro/Lymph Reports no additional complaints Aller/Immun Reports no additional complaints Results Reviewed Results Reviewed: Date of Service: 08/30/23 CT ABDOMEN AND PELVIS WITH CONTRAST CLINICAL INFORMATION: Upper abdominal pain nausea COMPARISON: CT abdomen from 12/13/2021 TECHNIQUE: Multidetector volumetric images were obtained from the superior aspect of the liver through the pubic symphysis following administration 85 mL of Omnipaque 350 intravenous contrast. Sagittal and coronal reformatted images were obtained on the technologist's workstation. Oral contrast: No This CT examination was performed using dose optimization techniques as appropriate, variously including the following: *Automated exposure control *Adjustment of mA and/or kV according to patient size (this includes techniques or standardized protocols for targeted exams where dose is matched to indication/reason for exam; i.e. extremities or head) *Use of iterative reconstruction technique DLP: 1428 mGy-cm FINDINGS: LUNG BASES: Bibasilar atelectasis versus scarring. Emphysematous changes. No pneumothorax. No large pleural effusion. Valvular calcifications noted. Slight elevation right hemidiaphragm. Pleural plaques along the right medial lower lobe. LIVER, GALLBLADDER, AND BILIARY TREE: The liver is normal in size, shape, and attenuation. No focal hepatic lesion or biliary ductal dilatation is present. Intraluminal gallbladder calculus measuring 2.2 cm without wall thickening or pericholecystic fluid. PANCREAS: Fatty atrophy of the pancreas. SPLEEN: Unremarkable. ADRENAL GLANDS: Unremarkable. KIDNEYS AND URETERS: Bilateral hypodense renal foci demonstrating fluid attenuation, statistically representing cysts, not requiring follow-up. Right-sided nephrolithiasis versus vascular calcification measuring 1.1 cm without hydronephrosis. No left-sided nephrolithiasis or hydronephrosis. BLADDER: Unremarkable. GASTROINTESTINAL TRACT: Small hiatal hernia. Metallic radiodensity within the stomach of unclear etiology. Colonic diverticulosis without acute diverticulitis. The small and large bowel are unremarkable. The appendix is unremarkable. ABDOMINAL WALL: Tiny fat filled umbilical hernia. LYMPH NODES: Lymph nodes per size criteria. VASCULAR: Abdominal aorta is nonaneurysmal. PELVIC VISCERA: Uterus is atrophy versus surgically absent. OSSEOUS STRUCTURES: Osteopenia. Redemonstrated compression deformity of T11 and to lesser extent T12. Multilevel degenerative changes of the thoracolumbar lumbosacral spine. Redemonstrated sclerotic focus of the lateral margin of the right iliac bone. IMPRESSION: 1. No acute process of the abdomen or pelvis identified. 2. Metallic radiodensity within the stomach of unclear etiology. 3. Cholelithiasis without acute cholecystitis. 4. Bilateral hypodense renal foci demonstrating fluid attenuation, statistically representing cysts, not requiring follow-up. 5. Right-sided nephrolithiasis versus vascular calcification measuring 1.1 cm without hydronephrosis. 6. Small hiatal hernia. 7. Colonic diverticulosis without acute diverticulitis. 8. Osteopenia. Redemonstrated compression deformity of T11 and to lesser extent T12. Date of Service: 02/15/22 EXAMINATION: US RETROPERITONEAL LIMITED (RENAL ONLY) CLINICAL INFORMATION: Cyst of kidney, acquired. COMPARISON: Ultrasound abdomen limited dated dated 12/18/2021. CT abdomen and pelvis without intravenous contrast dated 12/13/2021. Bilateral renal ultrasound dated 07/21/2021. KUB dated 07/07/2020. TECHNIQUE: Real-time imaging of the kidneys.? FINDINGS: RIGHT KIDNEY: 10.2 x 5.1 x 4.9 cm (SAG x AP x TRV). The kidney is normal in size, contour, and echogenicity. Renal cortical thickness is normal. No focal parenchymal lesions or hydronephrosis. There is an echogenic stone in the mid pole measuring 0.7 x 0.3 x 0.5 cm. There is no caliectasis. An 8 mm radiopaque calculus was seen in the mid pole on the CT abdomen exam of 12/13/2021. LEFT KIDNEY: 10.5 x 5.1 x 5.6 cm (SAG x AP x TRV). The kidney is normal in size, contour, and echogenicity. Renal cortical thickness is normal. No renal calculi or hydronephrosis. There are anechoic cysts. Upper pole cysts measure 1.8 x 1.4 x 1.5 cm and 0.7 x 0.6 x 0.8 cm. A complex lower pole cyst measures 2.5 x 2.2 x 3.1 cm. A solitary cyst was visualized in the lower pole on the previous CT abdomen and pelvis exam. IMPRESSION: 1.? Nonobstructive echogenic stone mid pole right kidney. No caliectasis or hydronephrosis. 2.? Simple cysts upper pole and complex cyst lower pole left kidney. Assessment & Plan Assessment & Plan (1) Hematuria: Code(s): R31.9 - Hematuria, unspecified Category: Medical (2) Right nephrolithiasis: Code(s): N20.0 - Calculus of kidney Category: Medical (3) UTI symptoms: Code(s): R39.9 - Unspecified symptoms and signs involving the genitourinary system Category: Medical (4) Increased urinary frequency: Code(s): R35.0 - Frequency of micturition Category: Medical (5) Urinary incontinence: Code(s): R32 - Unspecified urinary incontinence Category: Medical Qualifiers: Urinary Incontinence type: unspecified incontinence Qualified Code(s): R32 - Unspecified urinary incontinence Plan Urinalysis today is notable for leukocytes and blood. I reviewed prior imagin08/30/23--CTAP with IV contrast--KIDNEYS AND URETERS: Bilateral hypodense renal foci demonstrating fluid statistically representing cysts, not requiring follow-up. Right-sided nephrolithiasis versus vascular calcification measuring 1.1 cm without hydronephrosis. No left-sided nephrolithiasis or hydronephrosis. The patient states that she wears a panty liner and generally is able to get to the bathroom but will occasionally have some leakage prior to getting to the bathroom to urinate. I have discussed further evaluation with CT urogram I will send urine for culture and urine FISH. Discussion today included trial of Gemtesa/anticholinergic at this time the patient is reluctant to start a new medication will hold on medication therapy for now and have her follow-up after CT urogram for office cystoscopy. Orders: Orders Blood Urea Nitrogen Today R31.9 - Hematuria, unspecified Creatinine Today R31.9 - Hematuria, unspecified CT urogram Today R31.9 - Hematuria, unspecified Patient Instructions: The patient had an opportunity to ask questions regarding treatment plan. The patient expressed understanding and agreement with the above treatment plan. The patient is aware they should contact our office by phone for worsening of their current condition or the appearance of new symptoms. Compliance is encouraged with any medications and followup testing that is ordered. It is a privilege to be allowed the opportunity to participate in the urologic care of your patient. If you have any questions or concerns regarding treatment for the above conditions please do not hesitate to contact me. The office telephone contact is [phone]. This note is constructed in part using voice recognition software. While every effort has been made to ensure accuracy vascular technician errors may have been included. Yours sincerely, Fili Maloney MD Coding Level of Care Code Est Pt Level 4 (73910) Complex EM visit Add On G2211 Diagnoses Hematuria R31.9 Right nephrolithiasis N20.0 UTI symptoms R39.9 Increased urinary frequency R35.0 Urinary incontinence, unspecified type R32 Urinary Incontinence type: unspecified incontinence
--- OUTSIDE RECORDS SUMMARY | 2024-07-29 11:19 | XMS_ITS | Clinical Summary ---
Author Organization [facility] Address [address] [place] [address] Phone Care Team Providers Care Central Supply Assistant Name Role Phone Unavailable Primary Care Provider [...] Visit [facility] [address] [place] [id number] Gume Moyer MD [address] [facility] [address] [place] [address] Health Maintenance Due Date Last Done [...] complete [place] [id number] [facility] Medicare [facility] Medicare
--- OUTSIDE RECORDS SUMMARY | 2024-07-29 11:19 | XMS_ITS | Clinical Summary ---
Author Organization [facility] Address [address] [place] [address] Care Team Providers Care Nurse Coordinator Name Role Phone Patricia Nicole MD Primary [...] place to sleep or slept in a jail (including now)? No 12/18/2022 Comments Unknown Sex [...] 75+ series) 2013 Hemoglobin A1C 06/19/2023 12/18/2022 COVID-19 Vaccine ( season) 2023 01/22/2022, 01/28/2021 Creatinine with GFR 12/25/2023 12/24/2022, 12/23/2022, 12/22/2022, Additional history exists Influenza Vaccine 10/17/2024 Hepatitis B Vaccines Aged Out No long [...] - 99 mg/dL 12/24/2022 7:23 AM [facility] Comment:Fasting: <100 mg/dL, Non-Fasting: <200 mg/dL (ADA 2005) Blood Urea Nitrogen (BUN) 14 8 - 21 mg/dL 12/24/2022 7:23 AM [facility] Creatinine 0.6 0.4 - 1.1 mg/dL 12/24/2022 7:23 AM [facility] eGFR 88 >59 12/24/2022 7:23 AM [facility] Comment:CKD-EPI (2020) in mL /min/1.73 sq meters. Sodium 137 136 - 145 mmol/L 12/24/2022 7:23 AM [facility] Potassium 3.8 3.4 - 5.3 mmol/L 12/24/2022 7:23 AM [facility] Chloride 101 98 - 107 mmol/L 12/24/2022 7:23 AM [facility] CO2 28 22 - 33 mmol/L 12/24/2022 7:23 AM [facility] Anion Gap 8 7 - 17 12/24/2022 7:23 AM [facility] Calcium 9.3 8.7 - 10.5 mg/dL 12/24/2022 7:23 AM [facility] BUN/Creatinine Ratio 23 10.0 - 25.0 Ratio 12/24/2022 7:23 AM [facility] Blood specimen (specimen) (Plasma/Serum) 12/24/2022 6:14 AM EDT 12/24/2022 6:43 AM EDT us Silvestre Juarez MD LAB BLOOD ORDERABLES Fin al Result HOSPITAL LAB See Below [address] [address] * (ABNORMAL) Hemoglobin A1c with Estimated Average Glucose (12/18/2022 3:24 AM EDT) Hemoglobin A1C 7.5(H) <5.7 % 12/18/2022 4:47 AM [facility] Comment: A1c% ? Interpretation 5.7 - 6.0 ?Increase risk of diabetes 6.1 - 6.4 ?Higher risk of diabetes > or = 6.5 ?? Consistent with diabetes Diabetes Care, 33(Supp 1):S1-S61, 2010 Estimated Average Glucose 169 mg/dL 12/18/2022 4:47 AM [facility] Blood specimen (specimen) Blood specimen / Unknown 12/18/2022 3:24 AM EDT 12/18/2022 3:40 AM EDT us Chiquita Adler DEHYDROGENATION OPERATOR HEAD LAB BLOOD ORDERABLES Final R esult HOSPITAL LAB See Below [address] [address] from Last 3 Months or Most Recently Relevant to Health Maintenance [place] [id number] [facility] [place] MEDICARE PART A & B Advance Directives * Full Code (Latest Code Status on File) Date Activated Date Inactivated Comments 12/18/2022 2:12 AM Question Answer Comments Decision Thoroughly Discussed with: Unable to Di scuss Care Teams Nurse Coordinator Relationship Specialty Start Date End Date Patricia Nicole MD [address] [facility] [place] [id number] PCP - General Internal Medicine 12/18/22
== END 2024-07-29 11:47 | disposition home or self-care (01) ==
LOC: HO.HUSH 10:14
PROVIDERS: PCP Internal Medicine; Visit Provider Urology
DX: R31.9 Hematuria, unspecified (principal); N20.0 Calculus of kidney; R39.9 Unspecified symptoms and signs involving the genitourinary system; R35.0 Frequency of micturition; R32 Unspecified urinary incontinence; Z13.9 Encounter for screening, unspecified
CPT/HCPCS: 99214; G2211

== ENCOUNTER 2024-07-29 10:13 | Outpatient (REF) | payer MEDICARE, SELFPAY ==
--- OUTSIDE RECORDS SUMMARY | 2024-07-29 15:05 | XMS_ITS | Clinical Summary ---
Author Organization [facility] Address [address] [place] [address] Care Team Providers Care Radio Division Officer Name Role Phone Patricia Nicole MD Primary [...] place to sleep or slept in a residential (including now)? No 12/18/2022 Comments Unknown Sex [...] - 99 mg/dL 12/24/2022 7:23 AM T [facility] Comment:Fasting: <100 mg/dL, Non-Fasting: <200 mg/dL (ADA 2005) Blood Urea Nitrogen (BUN) 14 8 - 21 mg/dL 12/24/2022 7:23 AM T [facility] Creatinine 0.6 0.4 - 1.1 mg/dL 12/24/2022 7:23 AM T [facility] eGFR 88 >59 12/24/2022 7:23 AM T [facility] Comment:CKD-EPI (2020) in mL /min/1.73 sq meters. Sodium 137 136 - 145 mmol/L 12/24/2022 7:23 AM [facility] Potassium 3.8 3.4 - 5.3 mmol/L 12/24/2022 7:23 AM [facility] Chloride 101 98 - 107 mmol/L 12/24/2022 7:23 AM T [facility] CO2 28 22 - 33 mmol/L 12/24/2022 7:23 AM [facility] Anion Gap 8 7 - 17 12/24/2022 7:23 AM [facility] Calcium 9.3 8.7 - 10.5 mg/dL 12/24/2022 7:23 AM [facility] BUN/Creatinine Ratio 23 10.0 - 25.0 Ratio 12/24/2022 7:23 AM [facility] Blood specimen (specimen) (Plasma/Serum) 12/24/2022 6:14 AM EDT 12/24/2022 6:43 AM EDT us Silvestre Juarez MD LAB BLOOD ORDERABLES Fin al Result HOSPITAL LAB See Below [address] [address] * (ABNORMAL) Hemoglobin A1c with Estimated Average Glucose (12/18/2022 3:24 AM EDT) Hemoglobin A1C 7.5(H) <5.7 % 12/18/2022 4:47 AM T [facility] Comment: A1c% ? Interpretation 5.7 - 6.0 ?Increase risk of diabetes 6.1 - 6.4 ?Higher risk of diabetes > or = 6.5 ?? Consistent with diabetes Diabetes Care, 33(Supp 1):S1-S61, 2010 Estimated Average Glucose 169 mg/dL 12/18/2022 4:47 AM [facility] Blood specimen (specimen) Blood specimen / Unknown 12/18/2022 3:24 AM EDT 12/18/2022 3:40 AM EDT us Chiquita Adler BAND INSTRUMENT MAKER LAB BLOOD ORDERABLES Final R esult HOSPITAL LAB See Below [address] [address] from Last 3 Months or Most Recently Relevant to Health [place] [place] [id number] [facility] MEDIC[facility] PART A & B Advance Directives * Full Code (Latest Code Status on File) Date Activated Date Inactivated Comments 12/18/2022 2:12 AM Question Answer Comments Decision Thoroughly Discussed with: Unable to Di scuss Care Teams Radio Division Officer Relationship Specialty Start Date End Date Patricia Nicole MD [address] [facility] [place] [address] PCP - General Internal Medicine 12/18/22
--- OUTSIDE RECORDS SUMMARY | 2024-07-29 15:05 | XMS_ITS | Clinical Summary ---
Author Organization [facility] Address [address] [place] [address] Phone Care Team Providers Care Shank Cementer Hand Name Role Phone Unavailable Primary Care Provider [...] Visit [facility] [address] [place] [address] Gume Moyer MD [address] [facility] [address] [place] [address] Health Maintenance Due Date Last Done [...] [place] [id number] [facility] Medicare [facility] Medicare
== END 2024-07-29 10:14 | disposition home or self-care (01) ==
LOC: HO.LAB 10:13
PROVIDERS: PCP Internal Medicine; Visit Provider Urology
DX: I50.42 Chronic combined systolic (congestive) and diastolic (congestive) heart failure (principal); R39.9 Unspecified symptoms and signs involving the genitourinary system; I44.7 Left bundle-branch block, unspecified; I35.0 Nonrheumatic aortic (valve) stenosis; I48.21 Permanent atrial fibrillation; I10 Essential (primary) hypertension; R31.9 Hematuria, unspecified; N20.0 Calculus of kidney; R35.0 Frequency of micturition; R32 Unspecified urinary incontinence
CPT/HCPCS: 51798; 81003; 87086; 87088; 87186; 88121; 99212

== ENCOUNTER 2024-07-29 13:11 | Outpatient (AMB) | payer MEDICARE, SELFPAY ==
[2024-07-29 13:22] VITALS: BP 122/64; PULSE 70; BMI 25.4
--- NOTE | 2024-07-29 13:22 | MHC.OFFVIS ---
Vital Signs 07/29/24 13:22 Height 5 ft 4 in Weight 147 lb 11.355 oz BMI 25.4 BP 122/64 Blood Pressure Location Lt brachial Position Sitting Pulse 70 Pulse Source Pulse Oximeter Intake Visit Reasons: 6 mos followup Allergies latex [Latex] Allergy (Severe, Verified 07/29/24 11:09) RASH cephalexin [CEPHALEXIN] Allergy (Intermediate, Verified 07/29/24 11:09) SWELLING adhesive tape [Adhesive Tape] Allergy (Mild, Verified 07/29/24 11:09) CONTACT DERMATITIS empagliflozin [From Jardiance] Adverse Reaction (Severe, Verified 07/29/24 11:09) Dizziness flecainide [From Tambocor] Adverse Reaction (Severe, Verified 07/29/24 11:09) HEART RACING Biaxin Adverse Reaction (Intermediate, Verified 07/29/24 11:09) plapitations lisinopril [LISINOPRIL] Adverse Reaction (Intermediate, Verified 07/29/24 11:09) cough, nausea bacitracin [From Cortisporin] Adverse Reaction (Mild, Verified 07/29/24 11:09) EYE IRRITATION hydrocortisone [From Cortisporin] Adverse Reaction (Mild, Verified 07/29/24 11:09) EYE IRRITATION neomycin [From Cortisporin] Adverse Reaction (Mild, Verified 07/29/24 11:09) EYE IRRITATION nitrofurantoin Adverse Reaction (Verified 07/29/24 11:09) Loss of Appetite Medication List - Last Reconciled 07/29/24 by Geoff Callahan MD acetaminophen ER (Tylenol Arthritis Pain) 650 mg PO Q8H apixaban (Eliquis) 5 mg PO BID coenzyme Q10 (CoQ-10) 100 mg PO DAILY furosemide (Lasix) 20 mg PO DAILY gabapentin 300 mg (3 x 100 mg) PO BEDTIME insulin glargine (Lantus Solostar U-100 Insulin) 5 units subcut QAM insulin lispro (Humalog KwikPen U-200 Insulin) 2 - 12 units subcut USEASDIRECTD PRN loratadine (Allergy Relief (loratadine)) 10 mg PO DAILY losartan 50 mg PO DAILY metformin 1,000 mg PO BID 3 months metoprolol succinate ER 25 mg PO DAILY pantoprazole 40 mg PO DAILY pen needle, diabetic As directed QID ac and hs rosuvastatin 5 mg PO MOWEFR 90 days spironolactone 25 mg PO DAILY tramadol 50 mg PO Q8H PRN vit C,X-Jb-ulggr-lutein-zeaxan 250-90-40-1 mg (PreserVision AREDS-2) 1 tab PO BID HPI Comments Details: Aminah returns for follow-up. Because of recurring episodes of pulmonary edema, she underwent cardiac catheterization. In fact even during the catheterization attempt she developed pulmonary edema. Any case, there was no significant CAD. Then underwent AV dacia ablation followed by conduction system pacing. Overall, she seems to have made significant progress. She is feeling quite good. No concerning symptoms at this time. Frailty from age is the main issue. [facility] Medical History Right nephrolithiasis Recurrent UTI (urinary tract infection) Hiatal hernia Gastritis Opioid-induced constipation Degenerative disc disease, thoracic Degenerative disc disease, lumbar [employer] [place] (hard of hearing) Wears hearing aid in both ears Uses walker Hx of cardiac pacemaker (10/06/23) Age-related osteoporosis with current pathological fracture, vertebra(e), initial encounter for fracture Compression fracture of lumbar spine, non-traumatic Nontraumatic compression fracture of thoracic vertebra Moderate aortic stenosis Diabetes mellitus Congestive heart failure Urinary tract infection Hypertension Paroxysmal atrial fibrillation Cholelithiasis Renal cyst Nephrolithiasis Pulmonary hypertension Non-rheumatic mitral regurgitation Permanent atrial fibrillation Microcytic anemia Atrophic vaginitis Osteoarthritis of knees, bilateral Essential hypertension Dyslipidemia Type 2 diabetes mellitus with diabetic neuropathy, with long-term current use of insulin Surgical History History of cardiac radiofrequency ablation (RFA) Hx of cardiac catheterization History of esophagogastroduodenoscopy (EGD) (~10/2022) History of lumbar discectomy History of lobectomy of lung History of hysterectomy History of total right knee replacement (TKR) Lumbar radiculopathy Family History Father Diabetes mellitus Mother Diabetes mellitus Myocardial infarction Sister Cancer Sister No problems noted. Son No problems noted. Daughter No problems noted. Social History Household Members: None Housing: House Are you a primary lead care manager to a significant other at home: No Do you presently have visiting nurse or other home services: No (supportive family) Unable to assess alcohol history related to: Unable to respond Alcohol intake: never Patient Tobacco Use Status: Former Tobacco user Tobacco use type: Cigarette e-Cigarette/Vaping Use: Never Used Advance Directives Date on File: 06/20/23 service: No Current occupational status: retired Cognitive needs: No Hearing needs: Yes Vision needs: Yes Review of Systems Const Denies weakness ENT Denies dizziness Card Denies chest pain, Denies chest pain with activity, Denies syncope, Denies rapid heart rate, Denies pedal edema, Denies edema, Denies leg edema, Denies lightheadedness, Denies palpitations, Denies dyspnea, Denies dyspnea on exertion and Denies orthopnea Resp Denies cough, Denies dyspnea and Denies dyspnea on exertion GI Denies hematochezia and Denies change in stool character Musc Denies abnormal gait, Denies muscle cramps, Denies muscle weakness, Denies numbness, Denies radiating pain into limb and Denies tingling Neuro Denies abnormal gait, Denies dizziness, Denies syncope, Denies numbness, Denies tingling and Denies weakness Endo Denies palpitations Physical Exam Vital Signs: Last Vital Signs Pulse 70 07/29/24 13:22 BP 122/64 07/29/24 13:22 BMI result Body Mass Index 25.4 Const General: comfortable and no acute distress Orientation/consciousness: patient oriented x3 HEENT Other: Unremarkable Head: Yes normal to inspection Neck Neck: Yes normal visual inspection Chest Chest palpation & inspection: normal inspection of the chest Resp Auscultation: clear to auscultation bilaterally Cardio Palpation: normal PMI Heart sounds: S1 normal heart sound present, S2 normal heart sound present, no gallops, no murmurs and no rubs GI Palpation (GI): Soft to palpation Back/Spine/Pelvis Other: unremarkable Skin General skin exam: no rashes or lesions noted Neuro General: patient oriented x3 Extrem General: Yes normal to inspection Psych Mental Status: mental status grossly normal Assessment & Plan Assessment & Plan (1) Chronic combined systolic and diastolic CHF (congestive heart failure): Code(s): I50.42 - Chronic combined systolic (congestive) and diastolic (congestive) heart failure Category: Medical Plan: In the recent echocardiogram, LVEF 50-55%. Improved from previous 35%. Cardiac catheterization with no significant CAD. Clinically, she seems euvolemic. Continue current meds including metoprolol ER, losartan, Lasix, spironolactone. Did not like Jardiance due to side effects. (2) LBBB (left bundle branch block): Code(s): I44.7 - Left bundle-branch block, unspecified Category: Medical Plan: Status post conduction system pacing. (3) Non-rheumatic aortic stenosis: Code(s): I35.0 - Nonrheumatic aortic (valve) stenosis Category: Medical Plan: Yefk-py-myfeeirb aortic stenosis on the echocardiogram. Can monitor. (4) Permanent atrial fibrillation: Code(s): I48.21 - Permanent atrial fibrillation Category: Medical Plan: Status post AV dacia ablation. Continue Eliquis. (5) Essential hypertension: Code(s): I10 - Essential (primary) hypertension Category: Medical Plan: Stable. No changes. (6) Pacemaker: Code(s): Z95.0 - Presence of cardiac pacemaker Category: Medical Plan: Functioning normally. Followed remotely. Plan Discussion Notes I reviewed the patient's current status and discussed the stable nature of her heart condition, supported by improved echocardiography results. The patient's recent medication adjustment for Furosemide was reviewed. I explained the decision to decrease furosemide due to urinary frequency, leading to improved symptoms without adverse effects. Upcoming evaluations include bladder assessment to explore urinary frequency further and lab work coordination with her primary care provider. Regular follow-up is planned, with a six-month pacemaker check and the option for more frequent assessment if concerns arise. The patient was advised to maintain her current medication regimen and to report any new or worsening symptoms immediately. Patient was informed and verbally consented to the use of an ambient scribe for clinic note documentation during this visit. Discussed with family who came for appointment. Patient Instructions: - Continue taking your current medications as prescribed. - Monitor your symptoms and alert us if you experience any new or worsening issues. - Follow up with your primary care provider for scheduled lab work. - Participate in your scheduled bladder evaluation and any recommended testing. - Return in six months for a pacemaker check unless instructed otherwise. - Consult a healthcare provider if you experience swelling or other concerns before your next appointment. Coding Level of Care Code Est Pt Level 4 (26440) Complex EM visit Add On G2211 Diagnoses Chronic combined systolic and diastolic CHF (congestive heart failure) I50.42 LBBB (left bundle branch block) I44.7 Non-rheumatic aortic stenosis I35.0 Permanent atrial fibrillation I48.21 Essential hypertension I10 Pacemaker Z95.0
--- OUTSIDE RECORDS SUMMARY | 2024-07-29 14:14 | XMS_ITS ---
Author Organization [facility] Address [address] [place] [address] Care Team Providers Care Director Of Sleep Name Role Phone Bonnie DUVALL, Patricia De La Garza Primary Care Provider Un available Estuardo Mccarthy Unavailable [phone] Allergies Allergen (clinical drug ingredient) Drug/Non Drug [...] Ordered Date Performed Result Body Sit e 41100-ZSBHBKE NAIL, 1-5 03/31/2024 N/A 42585-Wlonldxs Plate 03/31/2024 N/A 24884-EKUO SKIN LESIONS, 2 TO 4 03/31/2024 N/A H6219-MDKIQYBO DYSTROPHIC NAILS ANY # 03/31/2024 N/A Encounters Encounter Location Date Provider Diagnosis [facility] [place] [address] [place] [id number] 03/31/2024 Estuardo Mccarthy Type 2 diabetes mellitus [...] INSTRUCTIONS.pdf) Pending Test Test Name Order Date 15856-VQPPHTX NAIL, 1-5 03/31/2024 34080-Umkijhah Plate 03/31/2024 61213-DAXL SKIN LESIONS, 2 TO 4 03/31/19 F4745-IVXIGCXG DYSTROPHIC NAILS ANY # Next Appt Details Follow Up: prn, Reason: Provider Name:Estuardo Mccarthy , 10/28/2024 04:00:00 PM, [address] [place] [address], [phone], Procedure Notes * Category Sub-Category Detail Notes [...] Motrin was recommended for pain or discomfort (47632), DIABETES: Pt was advised as to the [...] instrumentation by the physician of record - 76230 Debride Nails 1-5 Procedure: Due to the [...] necessary to maintain effective symptomatic relief - 76011 Nail Reduction Nail Reduction (-27) Trimming o [...] * Aminah KRAFT PDOB:[birth year] (83 yo F)Acc No.[id number]:03/31/2024 Progress Note Patient:Aminah GORMAN Provider:?Estuardo Mccarthy DPM :1940???Age:83 Y???Sex:Female D ate:03/31/2024 Address:[address] [place] [address], [phone] Pcp:Amada Ferro Subjective: * Chief Complaints: * [...] Diagno stic Procedure:?urgent care -UTI given antiboitic 10/24/2021[facility] [place] 2 compound fractures back 5 days test done Rehab 2 weeks 12/12/21[facility] [place] Nuclear exam done 20[facility] * Family [...] proximal to distal, B/L.?PIGMENTATION:? rubrous, B/L.?EDEMA (C):? 1/, non-pitting, without aching pain, B/L, Ankle(s).?CLAUDICATION (C):?denies, [...] INSTRUCTIONS.pdf (DIABETIC FOOT CARE INSTRUCTIONS.pdf)?? 3.?Ingrown nail?Procedure: 37411-Wjyxsbyx Plate * Procedures:?Debride Nails 1-5:?Procedure:?Due to the [...] necessary to maintain effective symptomatic relief - 60136.?Keratoma Treatment:?Parring or Cutting of Benign Hyperkeratotic Lesion(s)?(-56) [...] instrumentation by the physician of record - 57009.?Nail Avulsion:?Location?Lateral nail border,?T5.?Anesthesia?was deferred - NEUROPATHY: patient [...] Motrin was recommended for pain or discomfort (31886), DIABETES: Pt was advised as to the [...] ING DYSTROPHIC NAILS ANY #, Modifiers: XS 46360 Avulsion Plate, Modifiers: XS , [id number] DEBRIDE NAIL, 1-5, Modifiers: XS 80213 TRIM SKIN LESIONS, 2 TO 4, Modifiers: [...] Mccarthy DPM Date:?2024 Generated for Douglas thomas/Juana/Lizandro on:?07/29/2024 02:14 PM EDT History and Physical Notes * [...] , No Charcot collapse/destruction noted at [facility] FOOTWEAR EVALUATION: worn, OT were inspe cted and noted to be severely worn , [...]
--- OUTSIDE RECORDS SUMMARY | 2024-07-29 14:14 | XMS_ITS | Clinical Summary ---
Author Organization [facility] Address [address] [place] [address] Care Team Providers Care Door Manager Name Role Phone Patricia Nicole MD Primary [...] place to sleep or slept in a senior living (including now)? No 12/18/2022 Comments Unknown Sex [...] - 99 mg/dL 12/24/2022 7:23 AM [facility] Comment:Fasting: <100 mg/dL, Non-Fasting: <200 mg/dL (ADA 2005) Blood Urea Nitrogen (BUN) 14 8 - 21 mg/dL 12/24/2022 7:23 AM [facility] Creatinine 0.6 0.4 - 1.1 mg/dL 12/24/2022 7:23 AM [facility] eGFR 88 >59 12/24/2022 7:23 AM [facility] Comment:CKD-EPI (2020) in mL /min/1.73 sq meters. Sodium 137 136 - 145 mmol/L 12/24/2022 7:23 AM [facility] Potassium 3.8 3.4 - 5.3 mmol/L 12/24/2022 7:23 AM [facility] Chloride 101 98 - 107 mmol/L 12/24/2022 7:23 AM [facility] CO2 28 22 - 33 mmol/L 12/24/2022 7:23 AM [facility] Anion Gap 8 7 - 17 12/24/2022 7:23 AM [facility] Calcium 9.3 8.7 - 10.5 mg/dL 12/24/2022 7:23 AM [facility] BUN/Creatinine Ratio 23 10.0 - 25.0 Ratio 12/24/2022 7:23 AM [facility] Blood specimen (specimen) (Plasma/Serum) 12/24/2022 6:14 AM EDT 12/24/2022 6:43 AM EDT us Silvestre Juarez MD LAB BLOOD ORDERABLES Fin al Result HOSPITAL LAB See Below [address] [address] * (ABNORMAL) Hemoglobin A1c with Estimated Average Glucose (12/18/2022 3:24 AM EDT) Hemoglobin A1C 7.5(H) <5.7 % 12/18/2022 4:47 AM [facility] Comment: A1c% ? Interpretation 5.7 - 6.0 ?Increase risk of diabetes 6.1 - 6.4 ?Higher risk of diabetes > or = 6.5 ?? Consistent with diabetes Diabetes Care, 33(Supp 1):S1-S61, 2010 Estimated Average Glucose 169 mg/dL 12/18/2022 4:47 AM [facility] Blood specimen (specimen) Blood specimen / Unknown 12/18/2022 3:24 AM EDT 12/18/2022 3:40 AM EDT us Chiquita Adler MANAGER DOCUMENT LAB BLOOD ORDERABLES Final R esult HOSPITAL LAB See Below [address] [address] from Last 3 Months or Most Recently Relevant to Health Maintenance [place] [address] [address] [place] [id number] [facility] MEDICARE PART A & B Advance Directives * Full Code (Latest Code Status on File) Date Activated Date Inactivated Comments 12/18/2022 2:12 AM Question Answer Comments Decision Thoroughly Discussed with: Unable to Di scuss Care Teams Door Manager Relationship Specialty Start Date End Date Patricia Nicole MD [address] [facility] [place] [address] PCP - General Internal Medicine 12/18/22
--- OUTSIDE RECORDS SUMMARY | 2024-07-29 14:15 | XMS_ITS | Clinical Summary ---
Author Organization [facility] Address [address] [place] [address] Phone Care Team Providers Care Sewing Machinist Name Role Phone Unavailable Primary Care Provider [...] Visit [facility] [address] [place] [phone] Gume Moyer MD [address] [facility] [address] [place] [address] Health Maintenance Due Date Last Done [...] complete [place] [id number] [facility] Medicare [facility] Medicare
--- OUTSIDE RECORDS SUMMARY | 2024-07-29 14:15 | XMS_ITS ---
Author Organization [facility] Address [address] [place] [address] Care Team Providers Care Boatwright Name Role Phone Bonnie DUVALL, Patricia De La Garza Primary Care Provider Un available Estuardo Mccarthy Unavailable [phone] Allergies Allergen (clinical drug ingredient) Drug/Non Drug Allergy documented on EMR Reaction Allergy Type Onset Date Status furosemide Furosemide Unknown Drug Allergy Activ e Latex Latex rash Allergy Active REASON FOR VISIT At Risk Footcare Medications Medication SIG (Take, Route, Frequency, Duration) Notes Start Date End Date Status Lantus Active Losartan Potassium 50 MG 1 tablet Orally Once a day for 30 day(s) Active HumaLOG Active CoQ-10 100 MG 1 capsule with a meal Orally Once a day for 30 day(s) Active amLODIPine Besylate 5 MG Oral for 90 Active Pantoprazole Sodium 40 MG 1 tablet Orall y Once a day Active Gabapentin Active Lasix 40 MG 1 tablet Orally Once a day Active Jardiance 10 MG 1 tablet Orally Once a day Active Stool Softener Activ e Insulin Lispro Milton KwikPen Active Warfarin Sodium 2 MG Oral for 75 Not-Taking Apixaban Active Coenzyme Q-10 Active Furosemide Active Tylenol every 6 hours Not-Taking iron Not-Taking Ferrocite 324 MG 1 tablet Orally Three times a Week for 30 day(s) Not-Taking Penicillin temp 5 days Not-Urbano ing OxyCONTIN PRN Not-Taking Spironolactone 25 MG Oral for 90 Active Citracal + D Twice a day Not-T aking hydroCHLOROthiazide 25 MG 1 tablet in th e morning Orally Once a day Not-Taking Extra Depth Orthopedic Shoes (1 Pair) with Customized Heat Molded Multidensity Innersoles (3 Pair) as directed Dx: NIDDM/Polyneuropath y (E11.42), Hammertoe Foot Deformity (M20.41,M20.42), Preulcerative Skin Lesion(s) (L85.1 03/02/2023 Active Vitamin B1-B12 Injec once a Month Active Metoprolol Succinate ER 25 MG 1 tablet Orally Once a day Active metFORMIN HCl 1000 MG Oral for 90 Active Magnesium 500 MG Orally Once a day Active Rosuvastatin Calcium 5 MG Oral for 90 Active PreserVision AREDS A ctive Estrace Active eliquis Active Digoxin 125 MCG Oral for 90 Ac tive Social History Tobacco Use: Social History Observation Description Date Details (start date - stop date) Never Smoker NA - NA Tobacco use other than smoking: Question Answer Notes Are you an other tobacco user? No Tobacco Control (Standard) Question Answer Notes Tobacco use: Nonsmoker Additional Findings: Tobacco non-user Current no nsmoker AUDIT-C (Standard) Question Answer Notes Did you have a drink containing alcohol in the p ast year? No Points 0 Interpretation Negative Vital Signs Height 5 ft 4in in 07/01/2024 Weight 154 lbs 07/01/2024 BMI 26.43 kg/m2 07/01/2024 Blood pressure systolic 130 mm Hg 07/02/19 25 Blood pressure diastolic 65 mm Hg 025 Procedures Procedure Date Ordered Date Performed Result Body Sit e 82957-RHSLRMI NAIL, 1-5 07/01/2024 N/A 86997-BQJW SKIN LESIONS, 2 TO 4 07/01/2024 N/A L0647-RJNZCJNK DYSTROPHIC NAILS ANY # 07/01/2024 N/A Encounters Encounter Location Date Provider Diagnosis [facility] [address] [place] [address] 07/01/2024 Estuardo Mccarthy Type 2 diabetes mellitus with diabetic polyneuropathy E11.42 and Tinea unguium B35.1 Assessments Encounter Date Diagnosis (ICD Code) Assessment Notes Treatment Notes Treatment Clinical Notes Section Notes 07/01/2024 Type 2 diabetes mellitus with diabetic polyneuropathy (ICD-10 - E11.42) 07/01/2024 Tinea unguium (ICD-10 - B35.1) 07/01/2024 Other Plan Of Treatment Pending Test Test Name Order Date 27902-KQJYKXU NAIL, 1-5 07/01/2024 08969-IOZQ SKIN LESIONS, 2 TO 4 07/02/19 25 U5028-BAPNJCGA DYSTROPHIC NAILS ANY # Next Appt Details Follow Up: prn, Reason: Provider Name:Estuardo Mccarthy , 10/28/2024 04:00:00 PM, [address] [place] [address], [phone], Procedure Notes * Category Sub-Category Detail Notes [...] plantar, IPJ, TA, Medial plantar, IPJ, T5 ), were pared, and/or cut utilizing a sterile 15 blade, tissue nippers, and/or power dremel instrumentation by the physician of record - 59858 Debride Nails 1-5 Procedure: Due to the cli nical pathology outlined in the exam findings, performance of this nail treatment is medically necessary as its management by an unskilled/untrained nonprofessional would put this patients foot and overall health at risk. Therefore, debridement to affected nail(s), as described in exam ( TA, T5 ), was performed exclusively by the physician of [...] necessary to maintain effective symptomatic relief - 80630 Nail Reduction Nail Reduction (-27) Trimming o [...] T2, T3, T4, T6, T7, T8, T9 ), were debrided by the phisician of record to reduce/remove overall nail length and girth, by manual and electrical means with use of a nail nipper and/or dremel, to more viable healthy nail plate or bed tissue - G0127 Progress Notes * Aminah KRAFT PDOB:[birth year] (83 yo F)Acc No.[id number]:07/01/2024 Progress Note Patient:?Aminah KRAFT P Provider:?Estuardo Mccarthy DPM :1940???Age:83 Y???Sex:Female D ate:07/01/2024 Address:[address] [place], [place] [id number] Pcp:Amada Ferro Subjective: * Chief Complaints: * ???At Risk Footcare * HPI: ???At Risk footcare:?Pt States Last PCP Visit:?Date?07/01/2024 ?Misc?Patient accompanied by, Sister,SAMY, who is physically present in exam room at time of visit.? * ROS:?General/Constitutional:?Nausea?denies.?Vomiting?denies.?Hunger Thirst?denies.?Loss appetite?denies.?Chills?denies.?Fatigue?denies.?Fever?denies.?Night Sweats?denies.?Unexplained weight loss?denies.?Unexplained [...] Diagno stic Procedure:?urgent care -UTI given antiboitic 10/24/2021[facility] Fall 2 compound fractures back 5 days test done Rehab 2 weeks 12/12/21[facility] - Nuclear exam done 2022[facility] - CHF [facility]ul[facility]ary [facility] ER / ICU 08/29- * Family History:?Mother: dece ased, diagnosed with Unspecified essential hypertension.?Father: , diagnosed with Diabetic - NIDDM, Unspecified essential hypertension.?Spouse: .? * Social History:?Tobacco Use:?Tobacco use other than smoking?Are you an other tobacco user??No ?Tobacco Control (Standard)?Tobacco use:?Nonsmoker ?Additional Findings: Tobacco non-user?Current nonsmoker ???Drugs/Alcohol:?Drugs?Have you used drugs other than those for medical reasons in the past 12 months??No ???Miscellaneous:?Caffeine: yes, decaff tea, 1-2 cups per day. ?Children: yes, 2. ?Exercise: no. ?Marital status: . ?Occupation: Retired. ???Drug/Alcohol:?AUDIT-C (Standard)?Did you have a drink containing alcohol in the past year??No ?Points?0 ?Interpretation?Negative * Medications:?TakingInsulin L ispro Milton KwikPen Furosemide Coenzyme Q-10 Apixaban Stool Softener Jardiance 10 MG Tablet 1 tablet Orally [...] Deformity (M20.41,M20.42), Preulcerative Skin Lesion(s) (L85.1 Taking Insulin Lispro Milton KwikPen Taking Furosemide Taking Coenzyme Q-10 Taking Apixaban Taking Stool Softener Taking Jardiance 10 MG [...] 4in, Wt:154 , BMI: 26.43, Shoe size:8.5, BP:130/65mm Hg, BS:150, Ht-cm: 162.56 cm, Wt-k.85 kg. * ???Past Orders: ???Lab:HEMOGLOBIN A1C (GLYCO HEMOGLOBIN) (Order Date - 02/07/2024) (Collection Date & Time - 02/07/2024 04:51 PM) ? Value Reference Range ?HEMOGLOBIN A1C % (HH) 6.7 * Examination: ???Ophthalmology Referral: ?DIABETES EYE EXAM?Procedure Performed:?Yes ?Date of Exam Performed?04/07/2024 ?Diabetic Retinopathy Screening:?Yes ?Retinal Screening Performed:?Yes ?Findings of Diabetic Eye Exam:?no retinopathy?Neurological: ?SENSORY:?Neurological [...] T1, T2, T3, T4, T6, T7, T8, T9?).?Dermatologic: ?SKIN FINDINGS:? Skin exam reveals Keratotic lesion(s) located at, Medial plantar, IPJ, TA, Medial plantar, IPJ, T5.? Assessment: * Assessment: 1.?Tinea unguium - B35.1???2 .?Type 2 diabetes mellitus with diabetic polyneuropathy - E11.42 (Primary)??? Plan: * Treatment: * Procedures:?Debride Nails 1-5:?Procedure:?Due to the clinical pathology outlined in the exam findings, performance of this nail treatment is medically necessary as its management by an unskilled/untrained nonprofessional would put this patients foot and overall health at risk. Therefore, debridement to affected nail(s), as described in exam (?TA,?T5?), was performed exclusively by the physician of [...] necessary to maintain effective symptomatic relief - 28224.?Keratoma Treatment:?Parring or Cutting of Benign Hyperkeratotic Lesion(s)?(-56) [...] and described in the exam (?Medial plantar,?IPJ,?TA,?Medial plantar,?IPJ,?T5?), were pared, and/or cut utilizing a sterile 15 blade, tissue nippers, and/or power dremel instrumentation by the physician of record - 42249.?Nail Reduction:?Nail Reduction?(-27) Trimming of all dystrophic nails [...] (?T1, T2, T3, T4, T6, T7, T8, T9?), were debrided by the phisician of record to reduce/remove overall nail length and girth, by manual and electrical means with use of a nail nipper and/or dremel, to more viable healthy nail plate or bed tissue - G0127.? * Procedure Codes:?G0127 LORENA ING DYSTROPHIC NAILS ANY #, Modifiers: XS 92512 DEBRIDE NAIL, 1-5, Modifiers: XS 48067 TRIM SKIN LESIONS, 2 TO 4, Modifiers: XS * Follow Up:?prn * Images: * Sign off status: Completed true * Provider:?Estuardo Mccarthy DPM Date:?2024 Generated for Douglas thomas/Juana/Lizandro on:?07/29/2024 02:14 PM EDT History and Physical Notes * HPI (History of Present Illness) Category Sub-Category Detail Notes Category Not es At Risk footcare Pt States Last PCP Visit: Date: [facility] Patient accompanied by, Sister, SAMY, who is physically present in exam room at time of visit Examination Category Sub-Category Detail Notes Category Not [...] plantar, IPJ, TA, Medial plantar, IPJ, T5 Ophthalmology Referral DIABETES EYE EXAM Procedu re Performed:: Yes ?Date of Exam Performed: 04/07/2024 Diabetic Retinopathy Screening:: Yes Retinal Screening Performed:: Yes Findings of Diabetic Eye Exam:: no retin opathy Nails NAILS are: Elongated, overg rown, dystrophic, lytic, greater than 3mm thick, discolored and friable with crumbly malodorous subungual debris, TA, T5, all other nails not described with characteristics as possessing mycosis are elongated, overgrown, and dystrophic ( T1, T2, T3, T4, T6, T7, T8, T9 )
--- OUTSIDE RECORDS SUMMARY | 2024-07-29 14:15 | XMS_ITS ---
Author Organization [facility] Address [address] [place] [address] Care Team Providers Care Material Processor Name Role Phone Bonnie DUVALL, Patricia De La Garza Primary Care Provider Un available Estuardo Mccarthy Unavailable [phone] REASON FOR VISIT A1C Encounters Encounter [facility] [address] [facility] Estuardo Mccarthy Plan Of Treatment Next Appt Details Provider Name:Estuardo Mccarthy , 10/28/2024 04:00:00 PM, [address] [place], [address], Progress Notes * Aminah KRAFT PDOB:[birth year] (83 yo F)Acc No.[id number]:04/01/2024 Patient:?Aminah KRAFT :1940???Age:83 Y???Sex:Female Address:[address] [place] [address], [place], [address] * true * Date:? Generated for Printi ng/Faronig/eTransmitting on:?07/29/2024 02:14 PM EDT
--- OUTSIDE RECORDS SUMMARY | 2024-07-29 14:15 | XMS_ITS | Patient Health Record ---
Author Organization [facility] Address [address] [place] [address] Care Team Providers Care Priming Powder Premix Blender Name Role Phone Bonnie DUVALL, Patricia De La Garza Primary Care Provider Un available Estuardo Mccarthy Unavailable [phone] Allergies Allergen (clinical drug ingredient) Drug/Non Drug Allergy documented on EMR Reaction Allergy Type Onset Date Status furosemide Furosemide Unknown Drug Allergy Activ e Latex Latex rash Allergy Active Results Component Value Reference Range Notes HEMOGLOBIN A1C (GLYCOHEMOGLO BIN) Reviewed date:04/01/2024 04:52:15 PM Interpretation: Performing Lab: Notes/Report: HEMOGLOBIN A1C % (HH) 6.7 Reason For Referral No Information Medications Medication SIG (Take, Route, Frequency, Duration) Notes Start Date End Date Status Metoprolol Succinate ER 25 MG 1 tablet Orally Once a day Active metFORMIN HCl 1000 MG Oral for 90 Active Magnesium 500 MG Orally Once a day Active Estrace Active Losartan Potassium 50 MG 1 tablet Orally Once a day for 30 day(s) Active HumaLOG Active Warfarin Sodium 2 MG Oral for 75 Not-Taking Penicillin temp 5 days Not-Urbano ing OxyCONTIN PRN Not-Taking eliquis Active Digoxin 125 MCG Oral for 90 Ac tive CoQ-10 100 MG 1 capsule with a meal Orally Once a day for 30 day(s) Active amLODIPine Besylate 5 MG Oral for 90 Active Pantoprazole Sodium 40 MG 1 tablet Orall y Once a day Active Gabapentin Active Tylenol every 6 hours Not-Taking Lasix 40 MG 1 tablet Orally Once a day Active iron Not-Taking Jardiance 10 MG 1 tablet Orally Once a day Active Ferrocite 324 MG 1 tablet Orally Three times a Week for 30 day(s) Not-Taking Lantus Active Insulin Lispro Milton KwikPen Active Spironolactone 25 MG Oral for 90 Active Rosuvastatin Calcium 5 MG Oral for 90 Active PreserVision AREDS A ctive Stool Softener Activ e Citracal + D Twice a day Not-T aking Apixaban Active hydroCHLOROthiazide 25 MG 1 tablet in th e morning Orally Once a day Not-Taking Coenzyme Q-10 Active Extra Depth Orthopedic Shoes (1 Pair) with Customized Heat Molded Multidensity Innersoles (3 Pair) as directed Dx: NIDDM/Polyneuropath y (E11.42), Hammertoe Foot Deformity (M20.41,M20.42), Preulcerative Skin Lesion(s) (L85.1 03/02/2023 Active Furosemide Active Vitamin B1-B12 Injec once a Month Active Immunizations Vaccine Route Administration Date Status [...] ast year? No Points 0 Interpretation Negative Problems Problem Type SNOMED Code ICD Code Onset Dates Problem Status W/U Status Risk Notes Problem Acquired hammer toe of right foot (8307883861712815 ) Other hammer toe(s) (acquired), right foot (M20.41) Active confirmed Response to treatment, Improvemen t Problem Acquired hammer toe of left foot (5254664518446948 ) Other hammer toe(s) (acquired), left foot (M20.42) Active confirmed Response to treatment, Improvemen t Problem Polyneuropathy due to type 2 diabetes mellitus (377545487) Type 2 diabetes mellitus with diabetic polyneuropathy (E11.42) Active confirmed Vital Signs Blood pressure diastolic 65 mm Hg 07/01/2024 Height 5 ft 4in in 07/01/2024 Blood pressure systolic 130 mm Hg 07/01/2024 Weight 154 lbs 07/01/2024 BMI 26.43 kg/m2 07/01/2024 Procedures Procedure Date Ordered Date Performed Result Body Sit e 86808-BYTECKO NAIL, 1-5 09/14/2023 N/A 17360-INED SKIN LESIONS, 2 TO 4 09/14/2023 N/A V7454-NHETBLWV DYSTROPHIC NAILS ANY # 09/14/2023 N/A 98190-VLDPJBH NAIL, 1-5 12/14/2023 N/A 89198-KKVS SKIN LESIONS, 2 TO 4 12/14/2023 N/A C4488-AUXOEPQJ DYSTROPHIC NAILS ANY # 12/14/2023 N/A 39334-EPCMXEC NAIL, 1-5 03/31/2024 N/A 64064-Fnzehfwx Plate 03/31/2024 N/A 86046-HSEJ SKIN LESIONS, 2 TO 4 03/31/2024 N/A N9153-UPBOVSGA DYSTROPHIC NAILS ANY # 03/31/2024 N/A 92798-VVSAWCW NAIL, 1-5 07/01/2024 N/A 47606-TNHT SKIN LESIONS, 2 TO 4 07/01/2024 N/A H0059-HHZSUHSM DYSTROPHIC NAILS ANY # 07/01/2024 N/A Encounters Encounter Location Date Provider Diagnosis [address] [address] 09/14/2023 Estuardo Fabio Type 2 diabetes mellitus with diabetic polyneuropathy E11.42 and Tinea unguium B35.[address] [address] 12/14/2023 Estuardo Fabio Type 2 diabetes mellitus with diabetic polyneuropathy E11.42 and Tinea unguium B35.1 [facility] [address] [address] 03/31/2024 Estuardo Fabio Type 2 diabetes mellitus with diabetic polyneuropathy E11.42 ; Tinea unguium B35.1 ; Other hammer toe(s) (acquired), right foot M20.41 ; Other hammer toe(s) (acquired), left foot M20.42 and Ingrown nail L60.[address] [address] 07/01/2024 Estuardo Fabio Type 2 diabetes mellitus with diabetic polyneuropathy E11.42 and Tinea unguium B35.1 [facility] [address] [place] [address] 03/21/2024 Estuardo Mccarthy [facility] [address] [facility] [address] [place] [address] 04/01/2024 Estuardo Mccarthy Assessments Encounter Date Diagnosis (ICD Code) Assessment Notes Treatment Notes Treatment Clinical Notes Section Notes 09/14/2023 Tinea unguium (ICD-10 - B35.1) 09/14/2023 Type 2 diabetes mellitus with diabetic polyneuropathy (ICD-10 - E11.42) 12/14/2023 Tinea unguium (ICD-10 - B35.1) 12/14/2023 Type 2 diabetes mellitus with diabetic polyneuropathy (ICD-10 - E11.42) 03/31/2024 Tinea unguium (ICD-10 - B35.1) 03/31/2024 Type 2 diabetes mellitus with diabetic polyneuropathy (ICD-10 - E11.42) 07/01/2024 Tinea unguium (ICD-10 - B35.1) 07/01/2024 Type 2 diabetes mellitus with diabetic polyneuropathy (ICD-10 - E11.42) 03/31/2024 Other hammer toe(s) (acquired), right foot (ICD-10 - M20.41) Patient Educated with: DIABETIC FOOT CARE INSTRUCTIONS. pdf (DIABETIC FOOT CARE INSTRUCTIONS. pdf) 03/31/2024 Other hammer toe(s) (acquired), left foot (ICD-10 - M20.42) 03/31/2024 Ingrown nail (ICD-10 - L60.0) 07/01/2024 Other Plan Of Treatment Pending Test Test Name Order Date 23262-UVYPYJV NAIL, -01/20/2020 22206-CFYHYRZ NAIL, -04/27/2020 48709-XWPQPNW NAIL, -07/27/2020 70819-AWEFIAH NAIL, -11/02/2020 86606-NUBNNQM NAIL, -02/04/2021 09298-ZFGCKWU NAIL, -05/06/2021 45494-QUPHYMG NAIL, -08/02/2021 22335-XHWNSGB NAIL, 1-5 10/28/2021 00179-JBIWLEM NAIL, 1-5 02/03/2022 53004-EBKVYEE NAIL, 1-5 05/12/2022 52338-SWHTBFD NAIL, 1-5 08/18/2022 28760-OTOCUFK NAIL, 1-5 11/24/2022 25554-RAOZLPZ NAIL, 1-5 03/02/2023 23106-SHKLERF NAIL, 1-5 06/08/2023 88746-MJQDEEL NAIL, 1-5 09/14/2023 42118-BJTJKBE NAIL, 1-5 12/14/2023 49253-SEIRNLZ NAIL, 1-5 03/31/2024 63773-KVVVBBS NAIL, 1-5 07/01/2024 44540-Obznjkjv Plate 03/31/2024 45349-Vsqhaeol Plate 08/18/2022 12897-UNXS SKIN LESIONS, 2 TO 4 03/02/20 36530-HREX SKIN LESIONS, 2 TO 4 12/14/19 33288-AOIL SKIN LESIONS, 2 TO 4 09/14/19 20498-EKMR SKIN LESIONS, 2 TO 4 07/02/19 24914-AZKI SKIN LESIONS, 2 TO 4 06/08/19 09861-TDHP SKIN LESIONS, 2 TO 4 03/31/19 25 15150-LGQA SKIN LESIONS, 2 TO 4 11/25/19 23 19407-EJYM SKIN LESIONS, 2 TO 4 08/19/19 17892-OAVS SKIN LESIONS, 2 TO 4 05/12/19 34513-FWMT SKIN LESIONS, 2 TO 4 02/04/20 50637-WANC SKIN LESIONS, 2 TO 4 10/29/19 07500-JNMA SKIN LESIONS, 2 TO 4 08/03/19 73997-QKVO SKIN LESIONS, 2 TO 4 02/05/20 70079-MGPQ SKIN LESIONS, 2 TO 4 05/06/19 76241-LTJD SKIN LESIONS, 2 TO 4 07/28/19 86606-RMQF SKIN LESIONS, 2 TO 4 11/03/19 21 01829-QUFQ SKIN LESIONS, 2 TO 4 01/20/20 49168-HDYO SKIN LESIONS, 2 TO 4 04/27/19 Q5668-FONPJOSF DYSTROPHIC NAILS ANY # B1393-EEPDIGZR DYSTROPHIC NAILS ANY # B8776-GUOSLPXE DYSTROPHIC NAILS ANY # G0938-TEQQXIXC DYSTROPHIC NAILS ANY # L6933-WRJNZYCS DYSTROPHIC NAILS ANY # M2834-ZEKOGBDQ DYSTROPHIC NAILS ANY # W3044-TVXHLYJT DYSTROPHIC NAILS ANY # Y1391-PKHWNQZP DYSTROPHIC NAILS ANY # P9142-IXBHROHL DYSTROPHIC NAILS ANY # L0413-EZEOWSSB DYSTROPHIC NAILS ANY # Z5337-WRRXDZMW DYSTROPHIC NAILS ANY # X5535-DLEAFHKJ DYSTROPHIC NAILS ANY # S2692-KHGUBJZI DYSTROPHIC NAILS ANY # X6412-FTYWEAAN DYSTROPHIC NAILS ANY # A4809-YZMXKNQZ DYSTROPHIC NAILS ANY # B5809-FVRRHVHF DYSTROPHIC NAILS ANY # V7410-TSDDHKPW DYSTROPHIC NAILS ANY # G5603-IBLRWHKT DYSTROPHIC NAILS ANY # Next Appt Details Provider Name:Estuardo Libertad Mccarthy , 10/28/2024 04:00:00 PM, [address] [place] [address], [phone], Insurance Providers Payer Name Payer Address Payer Phone Subscriber Number Group Number Insured Name Patient Relationship to Insured Coverage Start Date Coverage End Date Medicare National [employer] [address] [place] [address] [id number] Aminah Florence Self - patient is the insured 0 [employer] Secondary to Medicare [address] [place] [address] [id number] Aminah Florence Self - patient is the insured Medical (General) History Medical History History ICD Code Broken bones Heart disease - CHF High blood pressure Measles Mumps Chicken pox Bone implants/screws Transfusions type II diabetes Macular degeneration Surgical History Surgery Date(Month/Year) cataract surgery 2019 kidney stones removal 07/2020 endoscopy 05/15/23 back surgery, broken in 3 places 02/2024 Hospitalization History Reason Date(Month/Year) [facility] [place]29-07/05 4 [facility] - [facility] Dec [facility] [place] [facility] [place] 2 compound fractures back 5 da ys test done Rehab 2 weeks 12/12/21 urgent care -UTI given antiboitic 10/25/19
== END 2024-07-29 13:50 | disposition home or self-care (01) ==
LOC: HO.HCS 13:12
PROVIDERS: PCP Internal Medicine; Visit Provider Internal Medicine
DX: I50.42 Chronic combined systolic (congestive) and diastolic (congestive) heart failure (principal); I44.7 Left bundle-branch block, unspecified; I35.0 Nonrheumatic aortic (valve) stenosis; I48.21 Permanent atrial fibrillation; I10 Essential (primary) hypertension; Z95.0 Presence of cardiac pacemaker
CPT/HCPCS: 99214; G2211

== ENCOUNTER → 2024-08-02 23:59 | Outpatient (BNV) | payer MEDICARE, SELFPAY ==
--- NOTE | 2024-08-04 19:29 | A.OFFVIS_ITS ---
Intake Visit Reasons: Remote device check- [employer] Allergies latex [Latex] Allergy (Severe, Verified 07/29/24 11:09) RASH cephalexin [CEPHALEXIN] Allergy (Intermediate, Verified 07/29/24 11:09) SWELLING adhesive tape [Adhesive Tape] Allergy (Mild, Verified 07/29/24 11:09) CONTACT DERMATITIS empagliflozin [From Jardiance] Adverse Reaction (Severe, Verified 07/29/24 11:09) Dizziness flecainide [From Tambocor] Adverse Reaction (Severe, Verified 07/29/24 11:09) HEART RACING Biaxin Adverse Reaction (Intermediate, Verified 07/29/24 11:09) plapitations lisinopril [LISINOPRIL] Adverse Reaction (Intermediate, Verified 07/29/24 11:09) cough, nausea bacitracin [From Cortisporin] Adverse Reaction (Mild, Verified 07/29/24 11:09) EYE IRRITATION hydrocortisone [From Cortisporin] Adverse Reaction (Mild, Verified 07/29/24 11:09) EYE IRRITATION neomycin [From Cortisporin] Adverse Reaction (Mild, Verified 07/29/24 11:09) EYE IRRITATION nitrofurantoin Adverse Reaction (Verified 07/29/24 11:09) Loss of Appetite PFSH Medical History Right nephrolithiasis Recurrent UTI (urinary tract infection) Hiatal hernia Gastritis Opioid-induced constipation Degenerative disc disease, thoracic Degenerative disc disease, lumbar [place] (hard of hearing) Wears hearing aid in both ears Uses walker Hx of cardiac pacemaker (10/06/23) Age-related osteoporosis with current pathological fracture, vertebra(e), initi al encounter for fracture Compression fracture of lumbar spine, non-traumatic Nontraumatic compression fracture of thoracic vertebra Moderate aortic stenosis Diabetes mellitus Congestive heart failure Urinary tract infection Hypertension Paroxysmal atrial fibrillation Cholelithiasis Renal cyst Nephrolithiasis Pulmonary hypertension Non-rheumatic mitral regurgitation Permanent atrial fibrillation Microcytic anemia Atrophic vaginitis Osteoarthritis of knees, bilateral Essential hypertension Dyslipidemia Type 2 diabetes mellitus with diabetic neuropathy, with long-term current use of insulin Surgical History History of cardiac radiofrequency ablation (RFA) Hx of cardiac catheterization History of esophagogastroduodenoscopy (EGD) (~10/2022) History of lumbar discectomy History of lobectomy of lung History of hysterectomy History of total right knee replacement (TKR) Lumbar radiculopathy Family History Father Diabetes mellitus Mother Diabetes mellitus Myocardial infarction Sister Cancer Sister No problems noted. Son No problems noted. Daughter No problems noted. Social History Household Members: None Housing: House Are you a primary animal care supervisor to a significant other at home: No Do you presently have visiting nurse or other home services: No (supportive family) Unable to assess alcohol history related to: Unable to respond Alcohol intake: never Patient Tobacco Use Status: Former Tobacco user Tobacco use type: Cigarette e-Cigarette/Vaping Use: Never Used Advance Directives Date on File: 06/20/23 service: No Current occupational status: retired Cognitive needs: No Hearing needs: Yes Vision needs: Yes Office Procedures Cardiac Device Check Cardiac Device Check Details: Date of service- 08/02/2024 ; Battery life >12 years; normal lead parameters; [employer]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 Overall normal device function. [id number] Cardiac Device Interrogation, pacemaker Procedure code (CPT) selection complete Assessment & Plan Assessment & Plan (1) Pacemaker: Code(s): Z95.0 - Presence of cardiac pacemaker Category: Medical (2) LBBB (left bundle branch block): Code(s): I44.7 - Left bundle-branch block, unspecified Category: Medical (3) Chronic combined systolic and diastolic CHF (congestive heart failure): Code(s): I50.42 - Chronic combined systolic (congestive) and diastolic (congestive) heart failure Category: Medical Plan x Coding Level of Care Code Procedure Only Diagnoses Pacemaker Z95.0 LBBB (left bundle branch block) I44.7 Chronic combined systolic and diastolic CHF (congestive heart failure) I50.42 CPT Codes Cardiac Device Check - Cardiac Device 12: [id number] Cardiac Device Interrogation, pacemaker ([id number])
== END ==
PROVIDERS: PCP Internal Medicine; Visit Provider Internal Medicine
DX: I50.42 Chronic combined systolic (congestive) and diastolic (congestive) heart failure (principal); I44.7 Left bundle-branch block, unspecified; Z95.0 Presence of cardiac pacemaker
CPT/HCPCS: 93294

== ENCOUNTER 2024-08-16 07:43 | Outpatient (REF) | payer MEDICARE, SELFPAY ==
[2024-08-16 12:09] LABS: Anion Gap 12 (12-20); Blood Urea Nitrogen 26 mg/dL (9-16); Calcium 9.7 mg/dL (8.4-10.2); Carbon Dioxide 31 mmol/L (22-29); Chloride 100 mmol/L (96-108); Estimated Glomerular Filt Rate > 60; Potassium 4.4 mmol/L (3.3-5.1); Sodium 139 mmol/L (135-145)
[2024-08-16 12:35] LABS: Creatinine Urine 23.24 mg/dL; Microalbum/Creatinine Ratio Ur 154.9 ug/mg cr (<30); Protein/Creatinine Ratio, Ur 0.39 (<0.2); Total Protein Urine Random 9 mg/dL (<12)
[2024-08-16 12:36] LABS: Appearance Urine Clear; Color Urine Yellow; Glucose Urine UA Negative (Negative); Leukocyte Esterase Urine Large (3+) (Negative); Nitrite Urine Negative (Negative); UMIC TRIGGER UA YES; Urine Blood Negative (Negative); Urine Ketones Negative (Negative); Urine Protein Negative (Neg-Trace)
[2024-08-16 12:43] LABS: Bacteria Urine 1+ (None Seen); Hyaline Casts Urine 0-2 /LPF (0-2); RBC Urine 0-2 /HPF (0-2); Squamous Epithelial Cell Urine 0-2 /HPF (0-2); WBC Urine >50 /HPF (0-5)
== END 2024-08-16 07:44 | disposition home or self-care (01) ==
LOC: HO.HMGCLDS 07:43
PROVIDERS: Internal Medicine Nephrology; PCP Internal Medicine; Referring Provider Internal Medicine; Visit Provider Internal Medicine
DX: N18.2 Chronic kidney disease, stage 2 (mild) (principal); R80.1 Persistent proteinuria, unspecified; E11.21 Type 2 diabetes mellitus with diabetic nephropathy
CPT/HCPCS: 36415; 80051; 81001; 82043; 82310; 82565; 82570; 84156; 84520

== ENCOUNTER → 2024-08-20 15:03 | Outpatient (BNVA) | payer MEDICARE, SELFPAY | PROVIDERS: PCP Internal Medicine; Visit Provider Dietitian, Registered ==

== ENCOUNTER → 2024-09-09 19:16 | Outpatient (BNV) | payer MEDICARE, SELFPAY | PROVIDERS: Emergency Provider Emergency Medicine; Visit Provider Student in an Organized Health Care Education/Training Program | DX: I51.7 Cardiomegaly (principal) | CPT/HCPCS: 71046 ==

== ENCOUNTER 2024-09-09 19:27 | Inpatient (IN) | payer MEDICARE, SELFPAY ==
[2024-09-09] VITALS (18 sets, daily range): BP systolic 78–137; BP diastolic 32–90; PULSE 60–82; RESP 19–28; TEMP 36–39; O2SAT 91–98; BMI 29.1; BMI 31.0
--- NOTE | 2024-09-09 | ECG_ITS ---
Test Reason : WEAKNESS Blood Pressure : */* mmHG Vent. Rate : 73 BPM Atrial Rate : * BPM P-R Int : * ms QRS Dur : 142 ms QT Int : 410 ms P-R-T Axes : * -68 67 degrees QTcB Int : 451 ms Wide QRS rhythm ;possible pacing, but pacer spikes not well seen. underlying atrial fibrillation Abnormal ECG When compared with ECG of 28-Dec-2023 16:05, Wide QRS rhythm has replaced Electronic ventricular pacemaker Referred By: Generic ED Physician Electronically Signed By: DANIKA ULLOA
--- NOTE | ~2024-09-09 | XR_ITS ---
CLINICAL HISTORY: weakness 2 view chest x-ray Comparison: None provided Findings: Moderate cardiomegaly. Mild diffuse interstitial prominence in both lungs. Possible tiny bilateral pleural effusions. Left chest single lead cardiac pacer is in expected location. No acute fracture. IMPRESSION: Moderate cardiomegaly. Mild diffuse interstitial prominence in both lungs. Possible tiny bilateral pleural effusions. Findings may represent fluid overload/CHF. This document has been electronically signed by: Anette Mix MD on 09/09/2024 20:51:43
--- NOTE | ~2024-09-09 | FL_ITS ---
EXAMINATION: FL GUIDANCE ONLY HISTORY: Right ureteral stone COMPARISON: Correlation is made with a CT of the abdomen and pelvis without contrast dated 09/09/2024. TECHNIQUE: Fluoroscopy time: 27.2 seconds. Cumulative Dose: 11.79 mGy. Images: 3. FINDINGS: Fluoroscopic spot films demonstrate placement of a right nephroureteral stent. FL/FL guidance in OR IMPRESSION: Fluoroscopy during procedure. Please see procedure report for additional information. Electronically signed by: Chaz Feng MD 09/11/2024 03:51 PM EDT
--- NOTE | ~2024-09-09 | CT_ITS ---
CLINICAL HISTORY: UTI, sepsis CT abdomen and pelvis without contrast Comparison: None provided Findings: Limited evaluation on a noncontrast study. No consolidation or effusion. Right basilar posteromedial pleural surgical clips. The gallbladder is distended with a 2.2 cm round calcification likely within the lateral most aspect of the gallbladder fundus. If clinically acute cholecystitis is suspected follow-up ultrasound should be obtained. No biliary ductal dilatation. Unenhanced liver and spleen grossly within normal limits. Pancreas somewhat atrophic. Thickening of the left adrenal. 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 Malrotation of the right kidney with 5 mm stone in distal aspect right ureter and mild hydroureter. Perinephric stranding. Additional nonobstructing stone in the right kidney Measures 10 mm and several minimal punctate nonobstructing stones. No left renal stones or left ureteral stones with no hydronephrosis or hydroureter on the left. 2.4 cm left renal hypodense lesion anteriorly suggestive of a cyst. 1.5 cm round mildly hyperdense lesion in upper pole left kidney laterally possibly a hemorrhagic cyst. No bowel obstruction, pneumoperitoneum, or pneumatosis. Severe diverticulosis of sigmoid colon with no definite evidence of acute diverticulitis. No free fluid. No definite loculated fluid collection. Uterus is absent. Escalante catheter in the urinary bladder which is empty. Atherosclerotic vascular disease with no aneurysm of the abdominal aorta. Significant diffuse demineralization with compression fractures of T11 and L1 vertebral bodies which are of indeterminate age. Significant multilevel degenerative changes in the lumbar spine. 1.8 cm sclerotic lesion in right iliac crest IMPRESSION: 1. 5 mm stone in distal aspect right ureter with hydroureter. Right perinephric stranding. Superimposed infection not excluded. 2. 2 cm likely gallstone within the lateral most aspect of the gallbladder in the fundus and distended gallbladder. If clinically indicated follow-up ultrasound should be obtained. 3. Severe sigmoid colon diverticulosis with no definite evidence of acute diverticulitis. 4. Nonobstructing right renal stone. 5. Left renal cyst and additional 1.5 cm hyperdense left renal lesion possibly hemorrhagic cyst. This can be further evaluated with ultrasound 6. Significant diffuse demineralization with compression fractures of T11 and L1 vertebral bodies which are of indeterminate age. 7. 1.8 cm nonspecific sclerotic lesion in right iliac crest and additional nonacute findings as described. This document has been electronically signed by: Xiomara Redd MD on 09/10/2024 00:43:14
[2024-09-09 20:06] LABS: MANUAL DIFF FLAG NO
[2024-09-09 20:07] LABS: Hematocrit 32.6 % (37.0-47.0); Hemoglobin 10.2 g/dl (12.0-16.0); Imm Gran Abs Auto 0.17 X10*3/uL (0.00-0.03); Imm Gran Pct Auto 1.0 % (0.0-0.4); Lymphocytes Absolute Auto 0.4 X10*3/uL (1.2-4.9); Mean Corpuscular HGB Conc 31.3 g/dl (31.0-35.0); Mean Corpuscular Hemoglobin 25.2 pg (27.0-33.0); Mean Corpuscular Volume 80.5 fL (80.0-98.0); NRBC Abs Auto 0.000 X10*3/uL (0.0-0.012); NRBC Pct Auto 0.0 /100WBC (0.0-0.2); Platelet Count 218 X10*3/uL (160-400); Red Blood Count 4.05 X10*6/uL (4.20-5.50); White Blood Count 17.3 X10*3/uL (4.8-10.8)
[2024-09-09 20:25] LABS: Alanine Aminotransferase 16 U/L (0-31); Albumin Level 4.1 g/dL (3.5-5.0); Alkaline Phosphatase 64 U/L (39-117); Anion Gap 21 (12-20); Aspartate Amino Transferase 34 U/L (5-31); Blood Urea Nitrogen 57 mg/dL (9-16); Calcium 9.2 mg/dL (8.4-10.2); Carbon Dioxide 22 mmol/L (22-29); Chloride 97 mmol/L (96-108); Creatinine Clr Calc Pharmacy 10.5; Estimated Glomerular Filt Rate 13; Potassium 5.8 mmol/L (3.3-5.1); Sodium 134 mmol/L (135-145); Total Protein 7.5 g/dL (6.5-8.0)
[2024-09-09] MEDS: Albumin Human 25 % 100 ML 133.33 ML IV ×2 (20:51→21:35)
[2024-09-09 21:15] LABS: Resp Syncy Virus RNA Qual PCR NEGATIVE (Negative); SARS COV2 PCR INHOUSE NEGATIVE (Negative)
--- NOTE | 2024-09-09 21:18 | ED_ITS ---
HPI - Weakness General Chief complaint: Weakness Stated complaint: WEAKNESS Time Seen by Provider: 09/09/24 19:57 Source: patient, family, EMS, RN notes reviewed and old records reviewed Mode of arrival: EMS Limitations: altered mental status History of Present Illness ED Provider: Dr. Angeles Larson HPI Narrative: 84-year-old female with extensive past medical history including CHF status post pacemaker placement, hypertension, diabetes, recurrent UTIs presenting with generalized weakness, confusion, nausea and vomiting from home. Patient reports being ill for the last 3 days. Has not measured a fever at home but was febrile upon arrival to the emergency department. Admits says today she was so weak she could not lift her arms to dress herself. This is not normal for her. Does have a history of UTI, last treated for infection about 3 weeks ago. Daughter reports a 5 day course of ciprofloxacin which she did complete. No reported diarrhea. No known sick contacts or travel. Patient denies cough or cold-type symptoms, chest pain, difficulty breathing, abdominal pain or urinary complaints. Related Data Home Medications ?Medication ?Instructions ?Recorded ?Confirmed coenzyme Q10 100 mg capsule 100 mg PO DAILY 04/28/22 0 07/29/24 (CoQ-10) vit C 250 mg-vit E 90 mg-zinc 40 1 tab PO BID 08/30/23 07/29/24 mg-copper 1 [id number] capsule (PreserVision AREDS-2) acetaminophen 650 mg 650 mg PO Q8H 05/14/2407/29 tablet,extended release (Tylenol Arthritis Pain) insulin glargine 100 unit/mL (3 5 unit subcut QAM 07/1707/29/24 mL) subcutaneous pen (Lantus Solostar U-100 Insulin) insulin lispro 200 unit/mL (3 mL) 2 - 12 unit subcut U SEASDIRECTD PRN 07/29/24 07/29/24 subcutaneous pen (Humalog KwikPen U-200 Insulin) loratadine 10 mg capsule (Allergy 10 mg PO DAILY 07/2907/29/24 Relief (loratadine)) pantoprazole 40 mg tablet,delayed 40 mg PO DAILY 07/2907/29/24 release Previous Rx's ?Medication ?Instructions ?Recorded apixaban 5 mg tablet (Eliquis) 5 mg PO BID #180 tabs 0 10/30/23 losartan 50 mg tablet 50 mg PO DAILY #90 tabs 0307/11 metoprolol succinate 25 mg 25 mg PO DAILY #90 tabs 07/11 tablet,extended release 24 hr rosuvastatin 5 mg tablet 5 mg PO MOWEFR 90 days #39 t abs 05/21/24 pen needle, diabetic 31 gauge x #360 ea 06/23/2406/01 metformin 1,000 mg tablet 1,000 mg PO BID 3 months #18 0 tabs 07/01/24 furosemide 20 mg tablet (Lasix) 20 mg PO DAILY #90 tab s 07/02/24 spironolactone 25 mg tablet 25 mg PO DAILY #90 tabs sulfamethoxazole 800 1 tab PO BID 5 days #10 tabs 08/01/24 mg-trimethoprim 160 mg tablet (Bactrim DS) gabapentin 100 mg capsule 300 mg (3 x 100 mg) PO BEDTI ME #90 08/18/24 caps tramadol 50 mg tablet 50 mg PO Q8H PRN pain 30 day s #90 08/25/24 tabs Allergies Allergy/AdvReac Type Severity Reaction Status Date / Time latex (Latex) Allergy Severe RASH Verified 09/09/24 19:41 cephalexin (CEPHALEXIN) Allergy Intermediate SWELLING Verified 09/09/24 19:41 adhesive tape (Adhesive Tape) Allergy Mild CONTACT Verified 09/09/24 19:41 DERMATITIS empagliflozin (From AdvReac Severe Dizziness Verified 09/09/24 19:41 Jardiance) flecainide (From Tambocor) AdvReac Severe HEART Verified 09/09/24 19:41 RACING Biaxin AdvReac Intermediate plapitation Verified 09/09/24 19:41 s lisinopril (LISINOPRIL) AdvReac Intermediate cough, Verified 09/09/24 19:41 nausea bacitracin (From Cortisporin) AdvReac Mild EYE Verified 09/09/24 19:41 IRRITATION hydrocortisone (From AdvReac Mild EYE Verified 09/09/24 19:41 Cortisporin) IRRITATION neomycin (From Cortisporin) AdvReac Mild EYE Verified 09/09/24 19:41 IRRITATION nitrofurantoin AdvReac Loss of Verified 09/09/24 19:41 Appetite Review of Systems 2 Review of Systems: Yes all other systems are reviewed and are negative [facility] Past Medical History Attestation statement: The following information was validated with the patient. [facility] Narrative: Chronic back pain status post kyphoplasty, CHF status post pacemaker placement, diabetes Source: old records reviewed and obtained from family (Daughter) Medical History Right nephrolithiasis Recurrent UTI (urinary tract infection) Hiatal hernia Gastritis Opioid-induced constipation Degenerative disc disease, thoracic Degenerative disc disease, lumbar [place] (hard of hearing) Wears hearing aid in both ears Uses walker Hx of cardiac pacemaker (10/06/23) Age-related osteoporosis with current pathological fracture, vertebra(e), initial encounter for fracture Compression fracture of lumbar spine, non-traumatic Nontraumatic compression fracture of thoracic vertebra Moderate aortic stenosis Diabetes mellitus Congestive heart failure Urinary tract infection Hypertension Paroxysmal atrial fibrillation Cholelithiasis Renal cyst Nephrolithiasis Pulmonary hypertension Non-rheumatic mitral regurgitation Permanent atrial fibrillation Microcytic anemia Atrophic vaginitis Osteoarthritis of knees, bilateral Essential hypertension Dyslipidemia Type 2 diabetes mellitus with diabetic neuropathy, with long-term current use of insulin Surgical History History of cardiac radiofrequency ablation (RFA) Hx of cardiac catheterization History of esophagogastroduodenoscopy (EGD) (~10/2022) History of lumbar discectomy History of lobectomy of lung History of hysterectomy History of total right knee replacement (TKR) Lumbar radiculopathy Family History Family History Father Diabetes mellitus Mother Diabetes mellitus Myocardial infarction Sister Cancer Sister No problems noted. Son No problems noted. Daughter No problems noted. Social History Social History Household Members: None Housing: House Are you a primary youth care professional to a significant other at home: No Do you presently have visiting nurse or other home services: No (supportive family) Unable to assess alcohol history related to: Unable to respond Alcohol intake: never Patient Tobacco Use Status: Former Tobacco user Tobacco use type: Cigarette e-Cigarette/Vaping Use: Never Used Advance Directives Date on File: 06/20/23 service: No Current occupational status: retired Cognitive needs: No Hearing needs: Yes Vision needs: Yes Physical Exam 2 Vital Signs: Vital Signs: Last Vital Signs Temp 102.2 F H 09/09/24 20:02 Pulse 64 09/09/24 21:07 Resp 24 H 09/09/24 21:07 BP 92/35 L 09/09/24 21:07 Pulse Ox 98 09/09/24 21:07 O2 Del Method Nasal Cannula 09/09/24 21:07 O2 Flow Rate 2 09/09/24 21:07 BMI result Body Mass Index 29.1 GENERAL: Chronically ill-appearing, appears ill. SKIN: Pale, warm, dry, no rashes noted. HEENT: Normocephalic, atraumatic, no stridor, posterior oropharynx nonerythematous, EOMI. NECK: Soft, supple, full ROM, midline structures nontender, no step-offs, no deformities, no lymphadenopathy. CHEST: Heart regular rate and rhythm, no murmurs, symmetric chest rise and fall. PULMONARY: Clear to auscultation bilaterally, no labored breathing, no wheezes/rhales/ rhonchi. ABDOMINAL: Soft, nondistended, nontender, quiet bowel sounds in all quadrants. : Deferred. MUSCULOSKELETAL: Normal tone, full range of motion, no deformities, no peripheral edema. NEURO: Alert and oriented to person, CN II through XII intact, no focal neurologic deficits. PSYCHIATRIC: Flat affect, fluid speech, appropriate demeanor. Medications Administered Generic Name Dose Route Start Last Admin Trade Name Freq PRN Reason Stop Dose Admin Albumin Human 100 mls @ 133.333 mls/hr 09/09/24 20:30 09/09/24 20:51 Kedbumin 25 % IV 09/09/24 22:14 133.33 mls/hr Q1H TASHA Administration Discontinued Medications Generic Name Dose Route Start Last Admin Trade Name Freq PRN Reason Stop Dose Admin Acetaminophen 975 mg 09/09/24 20:25 09/09/24 20:34 Acetaminophen 325 Mg Tablet PO 09/09/24 20:26 975 mg ONCE ONE Administration Piperacillin Sod/Tazobactam 100 mls @ 200 mls/hr 09/09/24 20:25 09/09/24 21:10 Sod 4.5 gm/ Sodium Chloride IV 09/09/24 20:54 Infused ONCE ONE Infusion Medical Decision Making Medical Decision Making [facility] Narrative: Patient presents today with generalized weakness. Differential diagnosis includes anemia, electrolyte abnormality, infection, rhabdomyolysis/myositis, neurologic disorders such as Guillain-[place] or myasthenia gravis, CVA, medication side effects, deconditioning, dehydration, among many others. A broad-based workup was initiated based on the patient's history and physical examination. They were watched closely on residential monitor with vital signs that were monitored during the duration of their stay. There are no signs of focal neurological deficit or weakness on exam. 8:04 p.m. patient has a history of CHF and x-ray appears to have slight volume overload. She is flagging for sepsis with a lactic acid level of 5.7. Will give her albumin fluid bolus for severe sepsis as not to volume overload her. Zosyn ordered. Tylenol for fever ordered. Patient mentating appropriately but globally weak. 09:58 p.m. Blood pressure has not responded to albumin fluid bolus. We will order Levophed peripherally. She will need a central line and admission to the ICU. Suspect urine source. She had been covered with Zosyn initially. I?m doing a reperfusion exam at 10:21pm time and found no significant change in her global weakness, confusion is improving. Vital Sign Review: Blood pressure is 80/30, Levophed infusing, oxygen is 94% on 2 L nasal cannula, respiratory rate of 20, heart rate in the 60s Cardiopulmonary Assessment: Heart: Systolic ejection murmur at the right upper sternal border is unchanged Lungs: Coarse lung sounds throughout, diminished at the bases Peripheral Pulse Evaluation: Pulses: +2/4 Capillary Refill Evaluation: Slow capillary refill Skin Exam color/condition: Pale Urine Output: Minimal with straight catheterization 10:21 p.m. case discussed with applied statistician on-call, Dr. Mcneill, who will admit patient to ICU. Differential Diagnosis As above Admission/Observation Consideration of admission/observation: Escalation of care including admission/observation considered Consult Healthcare Provider Management of the patient was discussed with: Director Of Supply Chain (ICU) Lab Data [facility] Lab Attestation statement: I reviewed the patient's lab results. 8:04 p.m. Received call from the lab of lactic acid level that is critically high at 5.7. Albumin, Tylenol and Zosyn ordered. 09/09/24 19:59 06/24/25 20:00 Labs: Lab Results 09/09/24 09/09/24 09/09/24 Range/Units 19:59 20:00 20:29 WBC 17.3 H (4.8-10.8) X10*3/uL RBC 4.05 L (4.20-5.50) X10*6/uL Hgb 10.2 L (12.0-16.0) g/dl Hct 32.6 L (37.0-47.0) % MCV 80.5 (80.0-98.0) fL MCH 25.2 L (27.0-33.0) pg MCHC 31.3 (31.0-35.0) g/dl RDW 16.0 (11.0-16.0) % Plt Count 218 D (160-400) X10*3/uL MPV 9.6 (9.4-12.3) fL Immature Gran % (Auto) 1.0 H (0.0-0.4) % Neut % (Auto) 88.8 H (45-73) % Lymph % (Auto) 2.0 L (20-40) % [place] % (Auto) 7.1 (2-11) % Eos % (Auto) 0.7 (0-4) % Baso % (Auto) 0.4 (0-2) % Lymph # (Auto) 0.4 L (1.2-4.9) X10*3/uL [place] # (Auto) 1.2 (0.1-1.2) X10*3/uL Eos # (Auto) 0.1 (0.0-0.4) X10*3/uL Baso # (Auto) 0.1 (0.0-0.2) X10*3/uL Abs Immat Gran (auto) 0.17 H (0.00-0.03) X10*3/uL Absolute Neuts (auto) 15.3 H (2.0-8.3) x10*3/uL Absolute Nucleated RBC 0.000 (0.0-0.012) X10*3/uL Nucleated RBC % (auto) 0.0 (0.0-0.2) /100WBC Sodium 134 L (135-145) mmol/L Potassium 5.8 H D (3.3-5.1) mmol/L Chloride 97 (96-108) mmol/L Carbon Dioxide 22 (22-29) mmol/L Anion Gap 21 H (12-20) BUN 57 H (9-16) mg/dL Creatinine 3.27 H (0.5-1.4) mg/dL Estim Creat Clear Calc 10.5 Estimated GFR 13 Random Glucose 203 H (60-115) mg/dL Lactic Acid 5.7 H* (0.5-2.0) mmol/L Calcium 9.2 (8.4-10.2) mg/dL Total Bilirubin 0.8 (0.0-1.0) mg/dL AST 34 H (5-31) U/L ALT 16 (0-31) U/L Alkaline Phosphatase 64 (39-117) U/L Total Protein 7.5 (6.5-8.0) g/dL Albumin 4.1 (3.5-5.0) g/dL Influenza Type A (PCR) NEGATIVE (Negative) Influenza Type B (PCR) NEGATIVE (Negative) RSV RNA Qual (PCR) NEGATIVE (Negative) SARS-CoV-2 RNA (RT-PCR) NEGATIVE (Negative) Independent Interpretation I performed an independent interpretation of an: EKG Interpretation: My independent interpretation of the ECG reveals paste rhythm with rate of 73, leftward axis, left bundle branch block QRS 142, no ST elevations or depressions to suggest ischemic changes, relatively unchanged from previous. Radiology Impression Discussion of test interpretation with radiology: I have reviewed the radiologist's reading. Radiologist Impression: 2 view chest x-ray Comparison: None provided Findings: Moderate cardiomegaly. Mild diffuse interstitial prominence in both lungs. Possible tiny bilateral pleural effusions. Left chest single lead cardiac pacer is in expected location. No acute fracture. IMPRESSION: Moderate cardiomegaly. Mild diffuse interstitial prominence in both lungs. Possible tiny bilateral pleural effusions. Findings may represent fluid overload/CHF. This document has been electronically signed by: Anette Mix MD on 09/09/2024 20:51:43 Dictated By: Anette Mix MD Independent Historian Clinical information obtained from an independent historian. History obtained from or confirmed by: Other (daughter) External Record Review External record reviewed: Inpatient record Prescription Management I considered prescription management with: Antibiotic Chronic Conditions Patient?s care impacted by: Diabetes, Hypertension and Other (CHF) Critical Care Time Critical Care Time Critical Care Time: Yes Total Critical Care Time: 55 Attestation: Time is exclusive of separately billable procedures. Time includes: direct patient care, patient reassessment, coordination of patient care, interpretation of data (laboratory data, pulse oximetry, arterial blood gases and chest xrays), review of patient's medical records, medical consultation and documentation of patient care. Procedures excluded from critical care time: central intravenous line placement and electrocardiography. Discharge Plan Discharge Patient Disposition: Admitted As Inpatient Print Language: [place]ian
[2024-09-09 21:30] LABS: Appearance Urine Turbid; Glucose Urine UA Negative (Negative); PH 6.0 (5.0-9.0); Specific Gravity - Urine 1.025 (1.005-1.025); UMIC TRIGGER UACC YES
--- OUTSIDE RECORDS SUMMARY | 2024-09-09 21:34 | XMS_ITS | Clinical Summary ---
Author Organization [facility] Address [address] [place] [address] Care Team Providers Care Driller Machine Name Role Phone Patricia Nicole MD Primary [...] place to sleep or slept in a [facility] (including now)? No 12/18/2022 Comments Unknown Sex [...] 81 12/24/2022 8:22 AM EDT Temperature 36.9 C (98.4 F) 12/24/2022 2:44 AM EDT Respiratory Rate 18 12/24/2022 8:22 AM EDT [...] 65 - 99 mg/dL 12/24/2022 7:23 AM [facility] Comment:Fasting: <100 mg/dL, Non-Fasting: <200 mg/dL (ADA 2005) Blood Urea Nitrogen (BUN) 14 8 - 21 mg/dL 12/24/2022 7:23 AM [facility] Creatinine 0.6 0.4 - 1.1 mg/dL 12/24/2022 7:23 AM [facility] eGFR 88 >59 12/24/2022 7:23 AM [facility] Comment:CKD-EPI (2020) in mL /min/1.73 sq meters. Sodium 137 136 - 145 mmol/L 12/24/2022 7:23 AM T [facility] Potassium 3.8 3.4 - 5.3 mmol/L 12/24/2022 7:23 AM [facility] Chloride 101 98 - 107 mmol/L 12/24/2022 7:23 AM [facility] CO2 28 22 - 33 mmol/L 12/24/2022 7:23 AM T [facility] Anion Gap 8 7 - 17 12/24/2022 7:23 AM [facility] Calcium 9.3 8.7 - 10.5 mg/dL 12/24/2022 7:23 AM [facility] BUN/Creatinine Ratio 23 10.0 - 25.0 Ratio 12/24/2022 7:23 AM [facility] Blood specimen (specimen) (Plasma/Serum) 12/24/2022 6:14 AM EDT 12/24/2022 6:43 AM EDT us Silvestre Juarez MD LAB BLOOD ORDERABLES Fin al Result HOSPITAL LAB See Below [address] [address] * (ABNORMAL) Hemoglobin A1c with Estimated Average Glucose (12/18/2022 3:24 AM EDT) Hemoglobin A1C 7.5(H) <5.7 % 12/18/2022 4:47 AM EDT [facility] Comment: A1c% Interpretation 5.7 - 6.0 Increase risk of diabetes 6.1 - 6.4 Higher risk of diabetes > or = 6.5 Consistent with diabetes Diabetes Care, 33(Supp 1):S1-S61, 2010 Estimated Average Glucose 169 mg/dL 12/18/2022 4:47 AM EDT [facility] Blood specimen (specimen) Blood specimen / Unknown 12/18/2022 3:24 AM EDT 12/18/2022 3:40 AM EDT us Chiquita L Buydos MEAT INSPECTOR LAB BLOOD ORDERABLES Final R esult HOSPITAL LAB See Below [facility] [address] [place] [address] from Last 3 Months or Most Recently Relevant to Health Maintenance [place] [address] [place] [id number] [facility] MEDICARE PART A & B Advance Directives * Full Code (Latest Code Status on File) Date Activated Date Inactivated Comments 12/18/2022 2:12 AM Question Answer Comments Decision Thoroughly Discussed with: Unable to Di scuss Care Teams Driller Machine Relationship Specialty Start Date End Date Patricia Nicole MD [address] [facility] [place] [id number] PCP - General Internal Medicine 12/18/22
[2024-09-09 21:39] LABS: UACC Culture Trigger YES
[2024-09-09 22:04] LABS: Reflex Lactate? Lactic Acid Added
[2024-09-09] MEDS: Lactated Ringers 1,000 ML 150 ML IVCONT (22:21)
[2024-09-09 22:24] LABS: INTERNATIONAL NORM RATIO 1.9 (0.9-1.1); Prothrombin Time 22.0 SEC (10.9-12.4)
[2024-09-09 22:37] LABS: Glucose, Whole Blood 214 mg/dL (60-115)
[2024-09-09 22:39] LABS: VBG HCO3 22 mmol/L (22-26); VBG O2 % Saturation 82.0 %
[2024-09-09 22:44] LABS: Venous Blood Gas Refer to POC result
[2024-09-09 22:55] LABS: ~Lactic Acid-LAB USE ONLY 3.8 mmol/L (0.5-2.0)
[2024-09-10] VITALS (38 sets, daily range): BP systolic 89–162; BP diastolic 32–64; PULSE 60–105; RESP 15–28; TEMP 36.3–38.8; O2SAT 94–100; BMI 32.9
--- NOTE | 2024-09-10 00:02 | PM.CCHP ---
History of Present Illness Date of Service: 09/10/24 Attending physician on admission: Martín Mcneill Chief Complaint: Altered mental status Ms. Kraft is a 84-year-old female with history of diabetes, congestive heart failure s/p? pacemaker, aortic stenosis, mitral regurgitation, hypertension, paroxysmal atrial fibrillation on anticoagulation, pulmonary hypertension, dyslipidemia, anemia, cholelithiasis, s/p kyphoplasty Jan 2024, recurrent UTI mostly recently treated about 3 weeks ago with ciprofloxacin, who presented to the emergency room from home with her daughter for complaint of generalized weakness, confusion, nausea and vomiting, On arrival to the emergency room, temp? was 102.2,? blood pressure? 108/47, heart rate 77, O2 sat 91% on room air.? Laboratory data significant for WBC 17.3, hemoglobin 10.2, hematocrit 32.6, sodium 134, potassium 5.8, anion gap 21, BUN 57, creatinine 3.27, glucose 203, initial lactic acid 5.7. Urinalysis indicative of UTI. Imaging: ? Chest x-ray showed cardiomegaly, mild diffuse interstitial prominence bilaterally, tiny bilateral pleural effusions likely due to fluid overload/CHF. CT abdomen/pelvis:?pending ED course:? The patient received 2 bags of albumin, acetaminophen 975 mg, Zosyn 4.5 g. She was started on Levophed for pressor support. Review of Systems Review of Systems: Yes all other systems are reviewed and are negative Constitutional: Constitutional: Reports as per HPI and Denies headache(s) Eyes: Eyes: Denies blurry vision, Denies diplopia and Denies photophobia ENT: Reports Normal hearing present, Denies dizziness and Denies headache(s) Cardiovascular: Cardiovascular: Denies chest pain, Denies irregular heart rhythm, Reports leg edema and Denies dyspnea Respiratory: Respiratory: Denies cough, Denies dyspnea and Denies wheezing Gastrointestinal: Gastrointestinal: Denies abdominal pain, Denies diarrhea, Denies nausea and Denies vomiting Genitourinary: Genitourinary: Reports as per HPI Musculoskeletal: Musculoskeletal: Reports muscle weakness Integumentary/Breasts: Skin/Breast: Denies lesions, Denies rash, Denies sores and Denies wounds Neurologic: Reports Normal hearing present, Denies dizziness and Denies headache(s) Psychiatric: Psychiatric: Denies anxiety Endocrine: Endocrine: Denies polyphagia and Denies polydipsia Hematologic/Lymphatic: Hematologic/Lymphatic: Reports as per HPI Allergic/Immunologic: Allergic/Immunologic: Denies wheezing [facility] Past Medical History Medical History Right nephrolithiasis Recurrent UTI (urinary tract infection) Hiatal hernia Gastritis Opioid-induced constipation Degenerative disc disease, thoracic Degenerative disc disease, lumbar [place] (hard of hearing) Wears hearing aid in both ears Uses walker Hx of cardiac pacemaker (10/06/23) Age-related osteoporosis with current pathological fracture, vertebra(e), initial encounter for fracture Compression fracture of lumbar spine, non-traumatic Nontraumatic compression fracture of thoracic vertebra Moderate aortic stenosis Diabetes mellitus Congestive heart failure Urinary tract infection Hypertension Paroxysmal atrial fibrillation Cholelithiasis Renal cyst Nephrolithiasis Pulmonary hypertension Non-rheumatic mitral regurgitation Permanent atrial fibrillation Microcytic anemia Atrophic vaginitis Osteoarthritis of knees, bilateral Essential hypertension Dyslipidemia Type 2 diabetes mellitus with diabetic neuropathy, with long-term current use of insulin Family History Family History Father Diabetes mellitus Mother Diabetes mellitus Myocardial infarction Sister Cancer Sister No problems noted. Son No problems noted. Daughter No problems noted. Surgical History Surgical History History of cardiac radiofrequency ablation (RFA) Hx of cardiac catheterization History of esophagogastroduodenoscopy (EGD) (~10/2022) History of lumbar discectomy History of lobectomy of lung History of hysterectomy History of total right knee replacement (TKR) Lumbar radiculopathy Social History Social History Household Members: Family Housing: House Are you a primary career advisor to a significant other at home: No Do you presently have visiting nurse or other home services: No Unable to assess alcohol history related to: Unable to respond Alcohol intake: never Patient Tobacco Use Status: Former Tobacco user Tobacco use type: Cigarette Smoked in Last 30 Days: No e-Cigarette/Vaping Use: Never Used Use of substances other than those prescribed or required for medical reasons: No Currently Displaying Signs/Symptoms of Drug Intoxication Withdrawal: No Have you been hit, kicked, punched, or otherwise hurt by someone within the past year? If so, by whom?: No Do you feel safe in your current relationship?: Yes Are you made to feel afraid or neglected: No Advance Directives: Yes Advance Directives on File: Yes Advance Directives Date on File: 06/20/23 Recently lost weight without trying: No Patient : No : No service: No Current occupational status: retired Cognitive needs: No Hearing needs: Yes Vision needs: Yes Meds Allergies Allergy/AdvReac Type Severity Reaction Status Date / Time latex (Latex) Allergy Severe RASH Verified 09/09/24 19:41 cephalexin (CEPHALEXIN) Allergy Intermediate SWELLING Verified 09/09/24 19:41 adhesive tape (Adhesive Tape) Allergy Mild CONTACT Verified 09/09/24 19:41 DERMATITIS empagliflozin (From AdvReac Severe Dizziness Verified 09/09/24 19:41 Jardiance) flecainide (From Tambocor) AdvReac Severe HEART Verified 09/09/24 19:41 RACING Biaxin AdvReac Intermediate plapitation Verified 09/09/24 19:41 s lisinopril (LISINOPRIL) AdvReac Intermediate cough, Verified 09/09/24 19:41 nausea bacitracin (From Cortisporin) AdvReac Mild EYE Verified 09/09/24 19:41 IRRITATION hydrocortisone (From AdvReac Mild EYE Verified 09/09/24 19:41 Cortisporin) IRRITATION neomycin (From Cortisporin) AdvReac Mild EYE Verified 09/09/24 19:41 IRRITATION nitrofurantoin AdvReac Loss of Verified 09/09/24 19:41 Appetite Active Medications: Current Medications Dextrose (Dextrose 50 % 25 Gm/50 Ml Syringe) 25 gm IVPUSH Q15M PRN; Protocol PRN Reason: per Hypoglycemia Standing Ord. Glucose (Glucose Gel 15 Gm Gel..Gram.) 15 gm PO Q15M PRN; Protocol PRN Reason: per Hypoglycemia Standing Ord. Norepinephrine Bitartrate (Levophed) 8 mg in 250 mls @ 0 mls/hr IVCONT .Q0M TASHA; Protocol Last Titration: 09/09/24 22:31 Dose: 0.11 mcg/kg/min, 13.94 mls/hr Lactated Ringer's (Lr) 1,000 mls @ 150 mls/hr IVCONT .Q6H40M [facility] Last Admin: 09/09/24 22:21 Dose: 150 mls/hr Lactated Ringer's (Lr) 1,000 mls @ 999 mls/hr IV .Q1H1M [facility] Stop: 09/10/24 00:00 Insulin Human Lispro (Insulin Lispro 100 Unit/Ml 3 Ml Vial) 0 unit SUBCUT Q6H [facility]; Protocol Last Admin: 09/09/24 22:51 Dose: 4 unit Home Medications ?Medication ?Instructions ?Recorded ?Confirmed ?Last Taken ?Type coenzyme Q10 100 mg capsule 100 mg PO DAILY 04/28/22 09/10/24 09/09/24 History (CoQ-10) vit C 250 mg-vit E 90 mg-zinc 40 1 tab PO BID 08/30/23 09/10/24 09/09/24 History mg-copper 1 [id number] capsule (PreserVision AREDS-2) acetaminophen 650 mg 650 mg PO Q8H 05/14/24 09/10/24 09/09/24 History tablet,extended release (Tylenol Arthritis Pain) insulin glargine 100 unit/mL (3 5 unit subcut DAILY 07/29/24 09/10/24 09/09/24 History mL) subcutaneous pen (Lantus Solostar U-100 Insulin) insulin lispro 200 unit/mL (3 mL) 2 - 12 unit subcut TID PRN high 07/29/24 09/10/24 Unknown History subcutaneous pen (Humalog KwikPen sugar U-200 Insulin) loratadine 10 mg capsule (Allergy 10 mg PO DAILY 07/29/24 09/10/24 09/09/24 History Relief (loratadine)) tramadol 50 mg tablet 50 mg PO BID 09/10/24 09/10/24 09/09/24 History tramadol 50 mg tablet 50 mg PO DAILY PRN pain 09/10/24 09/10/24 Unknown History Physical Exam Vital Signs: Vital Signs: Last Vital Signs Temp 100.4 F 09/09/24 23:35 Pulse 60 09/09/24 23:35 Resp 19 09/09/24 23:35 BP 126/50 L 09/09/24 23:35 Pulse Ox 97 09/09/24 23:35 O2 Del Method Nasal Cannula 09/09/24 23:35 O2 Flow Rate 2 09/09/24 23:35 BMI result Body Mass Index 31.0 HEENT: Head: Yes normocephalic and Yes atraumatic General nose exam: Normal external nose present (Nares patent, septum midline, sinuses nontender bilaterally.) Mouth: Normal oral and palatal mucosa present (No thrush, tongue in midline, mucosa moist.) Throat: Yes other (No erythema, no exudate.) Eyes: Direct Ophthalmoscopy: No photophobia Neck: Neck: Yes supple (no thyromegaly, trachea midline.) Carotids: normal carotid upstroke Resp: Auscultation: clear to auscultation bilaterally (normal work of breathing, no accessory muscle use) Cardio: Jugular venous distension: no JVD Rate: regular rate Rhythm: regular rhythm Heart sounds: no gallops, no murmurs and no rubs Peripheral pulses: Peripheral pulses 2+ throughout GI: Palpation (GI): Soft to palpation and nontender Neuro: Cranial nerves: Yes Normal hearing present Extrem: General: Yes full ROM, Yes capillary refill normal and Yes no clubbing, cyanosis or edema Psych: Affect: normal affect Attitude: cooperative Results Labs 09/10/24 05:49 09/10/24 05:49 Labs: Laboratory Results - last 24 hr 09/09/24 09/09/24 09/09/24 19:59 20:00 20:29 MCV 80.5 MCH 25.2 L MCHC 31.3 RDW 16.0 Plt Count 218 D MPV 9.6 Immature Gran % (Auto) 1.0 H Neut % (Auto) 88.8 H Lymph % (Auto) 2.0 L [place] % (Auto) 7.1 Eos % (Auto) 0.7 Baso % (Auto) 0.4 Lymph # (Auto) 0.4 L [place] # (Auto) 1.2 Eos # (Auto) 0.1 Baso # (Auto) 0.1 Abs Immat Gran (auto) 0.17 H Absolute Neuts (auto) 15.3 H Absolute Nucleated RBC 0.000 Nucleated RBC % (auto) 0.0 PT 22.0 H D INR 1.9 H VBG pH VBG pCO2 VBG pO2 VBG HCO3 VBG O2 Saturation VBG Base Excess Anion Gap 21 H Estim Creat Clear Calc 10.5 Estimated GFR 13 POC Glucose Random Glucose 203 H Lactic Acid 5.7 H* Lactic Acid F/U @ 2Hr Calcium 9.2 Total Bilirubin 0.8 AST 34 H ALT 16 Alkaline Phosphatase 64 Total Protein 7.5 Albumin 4.1 Urine Color Urine Appearance Urine pH Ur Specific [place] Urine Protein Urine Glucose (UA) Urine Ketones Urine Blood Urine Nitrite Ur Leukocyte Esterase Urine RBC Urine WBC Ur Squamous Epith Cells Urine Bacteria Hyaline Casts Influenza Type A (PCR) NEGATIVE Influenza Type B (PCR) NEGATIVE RSV RNA Qual (PCR) NEGATIVE SARS-CoV-2 RNA (RT-PCR) NEGATIVE 09/09/24 09/09/24 09/09/24 21:22 22:30 22:33 MCV MCH MCHC RDW Plt Count MPV Immature Gran % (Auto) Neut % (Auto) Lymph % (Auto) [place] % (Auto) Eos % (Auto) Baso % (Auto) Lymph # (Auto) [place] # (Auto) Eos # (Auto) Baso # (Auto) Abs Immat Gran (auto) Absolute Neuts (auto) Absolute Nucleated RBC Nucleated RBC % (auto) PT INR VBG pH VBG pCO2 VBG pO2 VBG HCO3 VBG O2 Saturation VBG Base Excess Anion Gap Estim Creat Clear Calc Estimated GFR POC Glucose 214 H Random Glucose Lactic Acid Lactic Acid F/U @ 2Hr 3.8 H* Calcium Total Bilirubin AST ALT Alkaline Phosphatase Total Protein Albumin Urine Color Dark Yellow Urine Appearance Turbid Urine pH 6.0 Ur Specific [place] 1.025 Urine Protein 300 (3+) H Urine Glucose (UA) Negative Urine Ketones Trace Urine Blood Large (3+) H Urine Nitrite Negative Ur Leukocyte Esterase Large (3+) H Urine RBC >20 H Urine WBC >50 H Ur Squamous Epith Cells >20 Urine Bacteria 4+ Hyaline Casts 3-5 Influenza Type A (PCR) Influenza Type B (PCR) RSV RNA Qual (PCR) SARS-CoV-2 RNA (RT-PCR) 09/09/24 22:36 MCV MCH MCHC RDW Plt Count MPV Immature Gran % (Auto) Neut % (Auto) Lymph % (Auto) [place] % (Auto) Eos % (Auto) Baso % (Auto) Lymph # (Auto) [place] # (Auto) Eos # (Auto) Baso # (Auto) Abs Immat Gran (auto) Absolute Neuts (auto) Absolute Nucleated RBC Nucleated RBC % (auto) PT INR VBG pH 7.40 VBG pCO2 36 VBG pO2 53 VBG HCO3 22 VBG O2 Saturation 82.0 VBG Base Excess -1.4 Anion Gap Estim Creat Clear Calc Estimated GFR POC Glucose Random Glucose Lactic Acid Lactic Acid F/U @ 2Hr Calcium Total Bilirubin AST ALT Alkaline Phosphatase Total Protein Albumin Urine Color Urine Appearance Urine pH Ur Specific [place] Urine Protein Urine Glucose (UA) Urine Ketones Urine Blood Urine Nitrite Ur Leukocyte Esterase Urine RBC Urine WBC Ur Squamous Epith Cells Urine Bacteria Hyaline Casts Influenza Type A (PCR) Influenza Type B (PCR) RSV RNA Qual (PCR) SARS-CoV-2 RNA (RT-PCR) Assessment and Plan (1) Septic shock due to urinary tract infection: Status: Acute (2) Recurrent UTI (urinary tract infection): Status: Acute (3) Acute renal failure: Qualifiers: Acute renal failure type: unspecified Qualified Code(s): N17.9 - Acute kidney failure, unspecified Status: Acute (4) History of CHF (congestive heart failure): Status: Acute (5) Pacemaker: Status: Acute (6) Current use of anticoagulant therapy: Status: Acute (7) Type 2 diabetes mellitus with diabetic neuropathy, with long-term current use of insulin: Status: Acute (8) Microcytic anemia: Status: Acute (9) Generalized weakness: Status: Acute Plan Plan Neuro:? No acute issues Cardiac:? Sepsis- patient has elevated white count,? she was febrile on arrival. Initial lactic acid 5.7. Urine is positive for UTI which is likely the source.? Pulmonary: No acute issues. Tiny bilateral pleural effusions possibly d/t CHF. No respiratory distress.? Renal: CT pelvis pending. Patient has history of nephrolithiasis. BUN/creat 57/3.27 (baseline about 25/0.8). Gentle hydration; patient is at risk for volume overload due to CHF. Monitor renal induces and urine output. Underlying diabetes mellitus.SS insulin per protocol. : Recurrent UTI w/hx of?E coli, Klebsiella.Continue Zosyn.? GI: No acute issues. ID: Sepsis. UTI likely source. Febrile, WBC elevated, hypotensive. Patient was covered with albumin and Zosyn in the emergency room.? Heme/Onc: Underlying anemia. Monitor for bleeding, trend H&H. Psych:? No acute issues. Misc: ?No acute issues. Prophylaxis:? pneumatic hoses,? PPI Diet:? NPO Patient's care was discussed in detail with Dr. Mcneill.? He is aware of all the above as well as the plan of care for this patient. Total time managing care of this patient today: 60 minutes.
[2024-09-10 00:35] LABS: Reflex Lactate? 2 Y
[2024-09-10] MEDS: Lactated Ringers 1,000 ML 999 ML IV (02:00)
[2024-09-10 02:21] LABS: ~Lactic Acid-LAB USE ONLY 6.2 mmol/L (0.5-2.0)
[2024-09-10] MEDS: Lactated Ringers 500 ML 999 ML IV ×2 (02:45→06:30)
--- NOTE | 2024-09-10 04:13 | ECG_ITS ---
Test Reason : WEAKNESS Blood Pressure : */* mmHG Vent. Rate : 76 BPM Atrial Rate : * BPM P-R Int : * ms QRS Dur : 138 ms QT Int : 398 ms P-R-T Axes : * -72 80 degrees QTcB Int : 447 ms Wide QRS rhythm underlying atrial fibrillation Left axis deviation Non-specific intra-ventricular conduction block Minimal voltage criteria for LVH, may be normal variant ( Harjinder product ) Abnormal ECG No significant changes when compared with the previous EKG of 11 apr 2024 19:55Hrs. Referred By: Martín Mcneill Electronically Signed By: DANIKA ULLOA
[2024-09-10] MEDS: Lactated Ringers 1,000 ML 150 ML IVCONT (05:26)
[2024-09-10 05:58] LABS: VBG HCO3 20 mmol/L (22-26); VBG O2 % Saturation 94.0 %
[2024-09-10 06:07] LABS: Venous Blood Gas Refer to POC result
--- NOTE | 2024-09-10 06:13 | PC.NURSE ---
Patient newly admitted from ED with 0.11mcg/kg/min Levo with maintenance fluid of LR running at 150ml/hr. Patient additionally received a total of 2L LR bolus and successfully weaned down on the vasopressor requirement. Patient had no change in neurological status and continued to receive 2L on NC for comfort and to maintain O2 Sat >95%. Patient initially had cool and dry skin, c/o chills and shivering, but later improved with warm blanket and warming pad over her. Patient voided cloudy to almost purulent urine through her Escalante catheter. Patient denied any pain and is fully capable of communicating her needs and wants.
[2024-09-10 06:16] LABS: Hematocrit 28.6 % (37.0-47.0); Hemoglobin 9.4 g/dl (12.0-16.0); Imm Gran Abs Auto 0.08 X10*3/uL (0.00-0.03); Imm Gran Pct Auto 0.6 % (0.0-0.4); Lymphocytes Absolute Auto 0.2 X10*3/uL (1.2-4.9); MANUAL DIFF FLAG SCAN; Mean Corpuscular HGB Conc 32.9 g/dl (31.0-35.0); Mean Corpuscular Hemoglobin 25.6 pg (27.0-33.0); Mean Corpuscular Volume 77.9 fL (80.0-98.0); NRBC Abs Auto 0.000 X10*3/uL (0.0-0.012); NRBC Pct Auto 0.0 /100WBC (0.0-0.2); Platelet Count 168 X10*3/uL (160-400); Red Blood Count 3.67 X10*6/uL (4.20-5.50); SCAN SMEAR FLAG 1; White Blood Count 13.3 X10*3/uL (4.8-10.8)
[2024-09-10 06:27] LABS: Albumin Level 3.7 g/dL (3.5-5.0); Anion Gap 22 (12-20); Blood Urea Nitrogen 60 mg/dL (9-16); Calcium 8.5 mg/dL (8.4-10.2); Carbon Dioxide 19 mmol/L (22-29); Chloride 99 mmol/L (96-108); Creatinine Clr Calc Pharmacy 10.5; Estimated Glomerular Filt Rate 12; Magnesium 1.7 mg/dL (1.6-2.6); Potassium 5.8 mmol/L (3.3-5.1); Sodium 134 mmol/L (135-145)
--- NOTE | 2024-09-10 06:39 | PM.EVENT ---
Documented by User: Basia Bunch NP 09/10/24 06:41 Event Note Date of Service: 09/10/24 Event Note: One set of blood cultures reported positive at 12 hours for GNR. Patient presented in septic shock with urinalysis positive for UTI. Will continue Zosyn. Time Spent With Patient Time: Total time managing care of this patient today ____ minutes. Documented by User: Martín Mcneill MD 09/10/24 12:53 Event Note Date of Service: 09/10/24
[2024-09-10 08:00] LABS: Reflex Lactate? Lactic Acid Added
[2024-09-10 08:50] LABS: ~Lactic Acid-LAB USE ONLY 2.8 mmol/L (0.5-2.0)
--- NOTE | 2024-09-10 09:43 | MHC.CM.PN ---
IMM DELIVERED CM MET WITH PT AT BEDSIDE IN ICU. PT LIVES ALONE BUT SISTER STAYS WITH PT AT NIGHT. PT USES [facility] FOR MOBILITY. NO CURRENT HOME SERVICES. + HCP (COPY AT HOME), PT DECLINES TO COMPLETE A NEW ONE AT THIS TIME ( TOO THIRSTY ) CM REQUESTS TO HAVE FAMILY BRING IN COPY. PCP DR. JACKSON DP: PT MAY BENEFIT FROM A P.T. EVAL TO DETERMINE DC DISPO. PT IS OPEN TO HOME SERVICES IF RECOMMENDED. TRANSPORT VIA FAMILY. CM WILL CONTINUE TO FOLLOW FOR DC PLAN.
[2024-09-10 10:23] LABS: Reflex Lactate? 2 Y
[2024-09-10 11:09] LABS: ~Lactic Acid-LAB USE ONLY 1.9 mmol/L (0.5-2.0)
[2024-09-10 11:28] LABS: Glucose, Whole Blood 144 mg/dL (60-115)
--- NOTE | 2024-09-10 12:34 | PHA.MEDREC ---
Addendum entered by Alhaji Holloway [facility] 09/10/24 13:25: Med rec checked by [facility] Original Note: Pharmacy Consult ? Medication Reconciliation Pharmacy has completed the medication reconciliation. Spoke to patients daughter at bedside to confirm med list. daughter states patient no longer takes Pantoprazole 40 mg. Daughter confirmed Insulin Glargine 5 units daily, Insulin lispro 2-12 units per sliding scale prn. Tramdol 50 mg BID and 1 tablet if needed.
--- NOTE | 2024-09-10 16:46 | PM.UROCN ---
History of Present Illness Consult details Consult date: 09/10/24 Narrative: CC: right ureteric stone 84-year-old female Past history of diabetes, congestive heart failure, mitral regurg, AF on anticoagulation, recurrent UTI treated most recently 3 weeks ago with ciprofloxacin Brought to the emergency room by her daughter with complaints of generalized weakness, confusion, nausea and vomiting Initial evaluation showed temperature 102.2 BP 108 on 47, HR 77 WBC 17.3, creatinine 3 point 2, lactate 5.7 UA negative nitrites, positive leukocyte, positive blood Preliminary microbiology Gram-negative rods Last urine culture last month pansensitive E coli CT - 5 mm stone in distal aspect right ureter with hydroureter. Right perinephric stranding. Superimposed infection not excluded. Currently on broad-spectrum antibiotics, pressor support has been reduced Recommend cystoscopy, right retrograde, right stent placement Review of Systems Constitutional: Constitutional: Reports as per HPI and Reports no additional constitutional complaints Cardiovascular: Cardiovascular: Reports as per HPI and Reports no additional cardiovascular complaints Respiratory: Respiratory: Reports as per HPI and Reports no additional respiratory complaints Gastrointestinal: Gastrointestinal: Reports as per HPI and Reports no additional gastrointestinal complaints Genitourinary: Genitourinary: Reports as per HPI Musculoskeletal: Musculoskeletal: Reports no additional musculoskeletal complaints and Reports as per HPI Neurologic: Reports system reviewed and no additional complaints, except as documented and Reports as per HPI [facility] Past Medical History Medical History Right nephrolithiasis Recurrent UTI (urinary tract infection) Hiatal hernia Gastritis Opioid-induced constipation Degenerative disc disease, thoracic Degenerative disc disease, lumbar [place] (hard of hearing) Wears hearing aid in both ears Uses walker Hx of cardiac pacemaker (10/06/23) Age-related osteoporosis with current pathological fracture, vertebra(e), initial encounter for fracture Compression fracture of lumbar spine, non-traumatic Nontraumatic compression fracture of thoracic vertebra Moderate aortic stenosis Diabetes mellitus Congestive heart failure Urinary tract infection Hypertension Paroxysmal atrial fibrillation Cholelithiasis Renal cyst Nephrolithiasis Pulmonary hypertension Non-rheumatic mitral regurgitation Permanent atrial fibrillation Microcytic anemia Atrophic vaginitis Osteoarthritis of knees, bilateral Essential hypertension Dyslipidemia Type 2 diabetes mellitus with diabetic neuropathy, with long-term current use of insulin Family History Family History Father Diabetes mellitus Mother Diabetes mellitus Myocardial infarction Sister Cancer Sister No problems noted. Son No problems noted. Daughter No problems noted. Surgical History Surgical History History of cardiac radiofrequency ablation (RFA) Hx of cardiac catheterization History of esophagogastroduodenoscopy (EGD) (~10/2022) History of lumbar discectomy History of lobectomy of lung History of hysterectomy History of total right knee replacement (TKR) Lumbar radiculopathy Social History Social History Household Members: Family Housing: House Are you a primary rn homecare to a significant other at home: No Do you presently have visiting nurse or other home services: No Unable to assess alcohol history related to: Unable to respond Alcohol intake: never Patient Tobacco Use Status: Former Tobacco user Tobacco use type: Cigarette Smoked in Last 30 Days: No e-Cigarette/Vaping Use: Never Used Use of substances other than those prescribed or required for medical reasons: No Currently Displaying Signs/Symptoms of Drug Intoxication Withdrawal: No Have you been hit, kicked, punched, or otherwise hurt by someone within the past year? If so, by whom?: No Do you feel safe in your current relationship?: Yes Are you made to feel afraid or neglected: No Advance Directives: Yes Advance Directives on File: Yes Advance Directives Date on File: 06/20/23 Recently lost weight without trying: No Patient : No : No service: No Current occupational status: retired Cognitive needs: No Hearing needs: Yes Vision needs: Yes Meds Allergies Allergy/AdvReac Type Severity Reaction Status Date / Time latex (Latex) Allergy Severe RASH Verified 09/09/24 19:41 cephalexin (CEPHALEXIN) Allergy Intermediate SWELLING Verified 09/09/24 19:41 adhesive tape (Adhesive Tape) Allergy Mild CONTACT Verified 09/09/24 19:41 DERMATITIS empagliflozin (From AdvReac Severe Dizziness Verified 09/09/24 19:41 Jardiance) flecainide (From Tambocor) AdvReac Severe HEART Verified 09/09/24 19:41 RACING Biaxin AdvReac Intermediate plapitation Verified 09/09/24 19:41 s lisinopril (LISINOPRIL) AdvReac Intermediate cough, Verified 09/09/24 19:41 nausea bacitracin (From Cortisporin) AdvReac Mild EYE Verified 09/09/24 19:41 IRRITATION hydrocortisone (From AdvReac Mild EYE Verified 09/09/24 19:41 Cortisporin) IRRITATION neomycin (From Cortisporin) AdvReac Mild EYE Verified 09/09/24 19:41 IRRITATION nitrofurantoin AdvReac Loss of Verified 09/09/24 19:41 Appetite Active Medications: Current Medications Dextrose (Dextrose 50 % 25 Gm/50 Ml Syringe) 25 gm IVPUSH Q15M PRN; Protocol PRN Reason: per Hypoglycemia Standing Ord. Glucose (Glucose Gel 15 Gm Gel..Gram.) 15 gm PO Q15M PRN; Protocol PRN Reason: per Hypoglycemia Standing Ord. Norepinephrine Bitartrate (Levophed) 8 mg in 250 mls @ 0 mls/hr IVCONT .Q0M [facility]; Protocol Last Titration: 09/10/24 16:05 Dose: 0.04 mcg/kg/min, 5.07 mls/hr Piperacillin Sod/Tazobactam (Sod 2.25 gm/ Sodium Chloride) 50 mls @ 100 mls/hr IV Q8H [facility] Last Infusion: 09/10/24 14:06 Dose: Infused Insulin Human Lispro (Insulin Lispro 100 Unit/Ml 3 Ml Vial) 0 unit SUBCUT Q6H [facility]; Protocol Last Admin: 09/10/24 12:04 Dose: Not Given Pantoprazole Sodium (Pantoprazole Sodium 40 Mg/10 Ml Vial) 40 mg IVPUSH DAILY@0630 [facility] Last Admin: 09/10/24 06:09 Dose: 40 mg Home Medications ?Medication ?Instructions ?Recorded ?Confirmed ?Last Taken ?Type coenzyme Q10 100 mg capsule 100 mg PO DAILY 04/28/22 09/10/24 09/09/24 History (CoQ-10) vit C 250 mg-vit E 90 mg-zinc 40 1 tab PO BID 08/30/23 09/10/24 09/09/24 History mg-copper 1 [id number] capsule (PreserVision AREDS-2) acetaminophen 650 mg 650 mg PO Q8H 05/14/24 09/10/24 09/09/24 History tablet,extended release (Tylenol Arthritis Pain) insulin glargine 100 unit/mL (3 5 unit subcut DAILY 07/29/24 09/10/24 09/09/24 History mL) subcutaneous pen (Lantus Solostar U-100 Insulin) insulin lispro 200 unit/mL (3 mL) 2 - 12 unit subcut TID PRN high 07/29/24 09/10/24 Unknown History subcutaneous pen (Humalog KwikPen sugar U-200 Insulin) loratadine 10 mg capsule (Allergy 10 mg PO DAILY 07/29/24 09/10/24 09/09/24 History Relief (loratadine)) tramadol 50 mg tablet 50 mg PO BID 09/10/24 09/10/24 09/09/24 History tramadol 50 mg tablet 50 mg PO DAILY PRN pain 09/10/24 09/10/24 Unknown History Physical Exam Vital Signs: Vital Signs: Last Vital Signs Temp 99.5 F 09/10/24 15:00 Pulse 60 09/10/24 16:05 Resp 21 H 09/10/24 16:00 BP 131/58 L 09/10/24 16:05 Pulse Ox 97 09/10/24 16:00 O2 Del Method Nasal Cannula 09/10/24 16:00 O2 Flow Rate 2 09/10/24 16:00 BMI result Body Mass Index 32.9 Const: General: cooperative, healthy appearing, comfortable and no acute distress Orientation/consciousness: patient oriented x3 HEENT: Face and sinus: Yes normal facial exam Mouth: moist mucous membranes Neck: Neck: Yes normal visual inspection, Yes full ROM and Yes trachea midline Chest: Chest palpation & inspection: normal inspection of the chest Resp: Effort & Inspection: normal respiratory effort, able to speak in complete sentences and no respiratory distress GI: Inspection: Yes normal to inspection Back/Spine/Pelvis: Cervical Spine: normal cervical lordosis Thoracic/Lumbar Spine: thoracic and lumbar spine normal to inspection Skin: General skin exam: no rashes or lesions noted Neuro: General: patient oriented x3, tone normal and moves all extremities Extrem: General: Yes normal to inspection and Yes capillary refill normal Results Labs 09/10/24 05:49 09/10/24 05:49 Labs: Abnormal lab results 09/09/24 09/09/24 09/09/24 Range/Units 19:59 20:00 21:22 WBC 17.3 H (4.8-10.8) X10*3/uL RBC 4.05 L (4.20-5.50) X10*6/uL Hgb 10.2 L (12.0-16.0) g/dl Hct 32.6 L (37.0-47.0) % MCV (80.0-98.0) fL MCH 25.2 L (27.0-33.0) pg Immature Gran % (Auto) 1.0 H (0.0-0.4) % Neut % (Auto) 88.8 H (45-73) % Lymph % (Auto) 2.0 L (20-40) % Lymph # (Auto) 0.4 L (1.2-4.9) X10*3/uL Abs Immat Gran (auto) 0.17 H (0.00-0.03) X10*3/uL Absolute Neuts (auto) 15.3 H (2.0-8.3) x10*3/uL PT 22.0 H D (10.9-12.4) SEC INR 1.9 H (0.9-1.1) VBG pH (7.32-7.43) VBG HCO3 (22-26) mmol/L Sodium 134 L (135-145) mmol/L Potassium 5.8 H D (3.3-5.1) mmol/L Carbon Dioxide (22-29) mmol/L Anion Gap 21 H (12-20) BUN 57 H (9-16) mg/dL Creatinine 3.27 H (0.5-1.4) mg/dL POC Glucose (60-115) mg/dL Random Glucose 203 H (60-115) mg/dL Lactic Acid 5.7 H* (0.5-2.0) mmol/L Lactic Acid F/U @ 2Hr (0.5-2.0) mmol/L Lactic Acid F/U @ 4Hr (0.5-2.0) mmol/L Phosphorus (2.7-4.5) mg/dL AST 34 H (5-31) U/L Urine Protein 300 (3+) H (Neg-Trace) mg/dL Urine Blood Large (3+) H (Negative) Ur Leukocyte Esterase Large (3+) H (Negative) Urine RBC >20 H (0-2) /HPF Urine WBC >50 H (0-5) /HPF 09/09/24 09/09/24 09/09/24 Range/Units 22:30 22:33 23:54 WBC (4.8-10.8) X10*3/uL RBC (4.20-5.50) X10*6/uL Hgb (12.0-16.0) g/dl Hct (37.0-47.0) % MCV (80.0-98.0) fL MCH (27.0-33.0) pg Immature Gran % (Auto) (0.0-0.4) % Neut % (Auto) (45-73) % Lymph % (Auto) (20-40) % Lymph # (Auto) (1.2-4.9) X10*3/uL Abs Immat Gran (auto) (0.00-0.03) X10*3/uL Absolute Neuts (auto) (2.0-8.3) x10*3/uL PT (10.9-12.4) SEC INR (0.9-1.1) VBG pH (7.32-7.43) VBG HCO3 (22-26) mmol/L Sodium (135-145) mmol/L Potassium (3.3-5.1) mmol/L Carbon Dioxide (22-29) mmol/L Anion Gap (12-20) BUN (9-16) mg/dL Creatinine (0.5-1.4) mg/dL POC Glucose 214 H (60-115) mg/dL Random Glucose (60-115) mg/dL Lactic Acid (0.5-2.0) mmol/L Lactic Acid F/U @ 2Hr 3.8 H* (0.5-2.0) mmol/L Lactic Acid F/U @ 4Hr (0.5-2.0) mmol/L Phosphorus 5.2 H (2.7-4.5) mg/dL AST (5-31) U/L Urine Protein (Neg-Trace) mg/dL Urine Blood (Negative) Ur Leukocyte Esterase (Negative) Urine RBC (0-2) /HPF Urine WBC (0-5) /HPF 09/10/24 09/10/24 09/10/24 Range/Units 01:55 05:49 05:54 WBC 13.3 H (4.8-10.8) X10*3/uL RBC 3.67 L (4.20-5.50) X10*6/uL Hgb 9.4 L (12.0-16.0) g/dl Hct 28.6 L (37.0-47.0) % MCV 77.9 L (80.0-98.0) fL MCH 25.6 L (27.0-33.0) pg Immature Gran % (Auto) 0.6 H (0.0-0.4) % Neut % (Auto) 91.9 H (45-73) % Lymph % (Auto) 1.7 L (20-40) % Lymph # (Auto) 0.2 L (1.2-4.9) X10*3/uL Abs Immat Gran (auto) 0.08 H (0.00-0.03) X10*3/uL Absolute Neuts (auto) 12.3 H (2.0-8.3) x10*3/uL PT (10.9-12.4) SEC INR (0.9-1.1) VBG pH 7.49 H (7.32-7.43) VBG HCO3 20 L (22-26) mmol/L Sodium 134 L (135-145) mmol/L Potassium 5.8 H (3.3-5.1) mmol/L Carbon Dioxide 19 L (22-29) mmol/L Anion Gap 22 H (12-20) BUN 60 H (9-16) mg/dL Creatinine 3.50 H (0.5-1.4) mg/dL POC Glucose (60-115) mg/dL Random Glucose 154 H (60-115) mg/dL Lactic Acid 2.9 H* (0.5-2.0) mmol/L Lactic Acid F/U @ 2Hr (0.5-2.0) mmol/L Lactic Acid F/U @ 4Hr 6.2 H* (0.5-2.0) mmol/L Phosphorus 4.6 H (2.7-4.5) mg/dL AST (5-31) U/L Urine Protein (Neg-Trace) mg/dL Urine Blood (Negative) Ur Leukocyte Esterase (Negative) Urine RBC (0-2) /HPF Urine WBC (0-5) /HPF 09/10/24 09/10/24 Range/Units 08:19 11:22 WBC (4.8-10.8) X10*3/uL RBC (4.20-5.50) X10*6/uL Hgb (12.0-16.0) g/dl Hct (37.0-47.0) % MCV (80.0-98.0) fL MCH (27.0-33.0) pg Immature Gran % (Auto) (0.0-0.4) % Neut % (Auto) (45-73) % Lymph % (Auto) (20-40) % Lymph # (Auto) (1.2-4.9) X10*3/uL Abs Immat Gran (auto) (0.00-0.03) X10*3/uL Absolute Neuts (auto) (2.0-8.3) x10*3/uL PT (10.9-12.4) SEC INR (0.9-1.1) VBG pH (7.32-7.43) VBG HCO3 (22-26) mmol/L Sodium (135-145) mmol/L Potassium (3.3-5.1) mmol/L Carbon Dioxide (22-29) mmol/L Anion Gap (12-20) BUN (9-16) mg/dL Creatinine (0.5-1.4) mg/dL POC Glucose 144 H (60-115) mg/dL Random Glucose (60-115) mg/dL Lactic Acid (0.5-2.0) mmol/L Lactic Acid F/U @ 2Hr 2.8 H* (0.5-2.0) mmol/L Lactic Acid F/U @ 4Hr (0.5-2.0) mmol/L Phosphorus (2.7-4.5) mg/dL AST (5-31) U/L Urine Protein (Neg-Trace) mg/dL Urine Blood (Negative) Ur Leukocyte Esterase (Negative) Urine RBC (0-2) /HPF Urine WBC (0-5) /HPF Short CBC 09/09/24 09/10/24 Range/Units 19:59 05:49 WBC 17.3 H 13.3 H (4.8-10.8) X10*3/uL Hgb 10.2 L 9.4 L (12.0-16.0) g/dl Hct 32.6 L 28.6 L (37.0-47.0) % Plt Count 218 D 168 (160-400) X10*3/uL BMP 09/09/24 09/10/24 20:00 05:49 Sodium 134 L 134 L Potassium 5.8 H D 5.8 H Chloride 97 99 Carbon Dioxide 22 19 L BUN 57 H 60 H Creatinine 3.27 H 3.50 H Calcium 9.2 8.5 D Liver Function 09/09/24 09/10/24 Range/Units 20:00 05:49 Total Bilirubin 0.8 (0.0-1.0) mg/dL AST 34 H (5-31) U/L ALT 16 (0-31) U/L Alkaline Phosphatase 64 (39-117) U/L Albumin 4.1 3.7 (3.5-5.0) g/dL Urine 09/09/24 Range/Units 21:22 Urine Color Dark Yellow Urine Appearance Turbid Urine pH 6.0 (5.0-9.0) Ur Specific [place] 1.025 (1.005-1.025) Urine Protein 300 (3+) H (Neg-Trace) mg/dL Urine Glucose (UA) Negative (Negative) mg/dL All other labs normal. Assessment and Plan (1) Recurrent UTI (urinary tract infection): Status: Acute (2) Right nephrolithiasis: Status: Acute Plan Risks, benefits and alternatives to therapy were discussed. These include but are not limited to infection, bleeding, damage to local organs and tissues, need for further interventions. Anesthetic risks regarding cardiac arrhythmia, blood clots, and potential mortality were discussed. The patient understands the typical recovery time and the outpatient nature of the procedure. After consideration of these risks the patient gives full informed consent and they wish to move ahead with the procedure. - cystoscopy, right retrograde, right stent placed Procedures Date of Service Date of Service: 09/10/24
--- NOTE | 2024-09-10 17:55 | PC.NURSE ---
Neuro: Alert and oriented x4 but vague and forgetful at times, difficulties to find words noted and daughter states at baseline she has difficulties finding the words. Resp: on 2L for comfort, low 90?s on RA high 90?s with 2L noted Cardiac: Junc rhythm with BBB, See MAR for Levophed titration? GI/: NPO this AM for possible procedure, Urology called and will do procedure tomorrow, Diabetic diet started and NPO after midnight. [place] placed for accurate I+O decreased urine output noted.? Integumentary/Musculoskeletal: No open areas noted, moisture noted to under breast and groin, barrier cream applied, generalized mild weakness stated by patient.
[2024-09-10 18:27] LABS: Glucose, Whole Blood 144 mg/dL (60-115)
[2024-09-10 23:44] LABS: Glucose, Whole Blood 220 mg/dL (60-115)
[2024-09-11] VITALS (30 sets, daily range): BP systolic 83–140; BP diastolic 37–64; PULSE 60–98; RESP 16–29; TEMP 36.6–38.6; O2SAT 89–99; BMI 33.4
[2024-09-11 05:32] LABS: Venous Blood Gas Refer to POC result
[2024-09-11 05:32] LABS: VBG HCO3 20 mmol/L (22-26); VBG O2 % Saturation 94.0 %
[2024-09-11 05:43] LABS: Glucose, Whole Blood 146 mg/dL (60-115)
[2024-09-11 05:59] LABS: MANUAL DIFF FLAG NO
[2024-09-11 06:00] LABS: Hematocrit 26.5 % (37.0-47.0); Hemoglobin 9.0 g/dl (12.0-16.0); Imm Gran Abs Auto 0.07 X10*3/uL (0.00-0.03); Imm Gran Pct Auto 0.6 % (0.0-0.4); Lymphocytes Absolute Auto 0.3 X10*3/uL (1.2-4.9); Mean Corpuscular HGB Conc 34.0 g/dl (31.0-35.0); Mean Corpuscular Hemoglobin 25.9 pg (27.0-33.0); Mean Corpuscular Volume 76.1 fL (80.0-98.0); NRBC Abs Auto 0.000 X10*3/uL (0.0-0.012); NRBC Pct Auto 0.0 /100WBC (0.0-0.2); Platelet Count 166 X10*3/uL (160-400); Red Blood Count 3.48 X10*6/uL (4.20-5.50); White Blood Count 11.2 X10*3/uL (4.8-10.8)
[2024-09-11 06:25] LABS: Albumin Level 3.5 g/dL (3.5-5.0); Anion Gap 22 (12-20); Blood Urea Nitrogen 70 mg/dL (9-16); Calcium 8.4 mg/dL (8.4-10.2); Carbon Dioxide 18 mmol/L (22-29); Chloride 98 mmol/L (96-108); Creatinine Clr Calc Pharmacy 9.6; Estimated Glomerular Filt Rate 11; Magnesium 2.0 mg/dL (1.6-2.6); Potassium 5.0 mmol/L (3.3-5.1); Sodium 133 mmol/L (135-145)
--- NOTE | 2024-09-11 10:19 | P.PNCC_ITS ---
Subjective Subjective Date of Service: 09/11/24 Interval History: 84-year-old lady with underlying diabetes mellitus, systolic heart failure, AFib status post pacemaker, aortic stenosis, mitral regurgitation, recurrent UTIs with nephrolithiasis admitted on 09/10/2024 with septic shock and Gram-negative bacteremia with source requiring pressor support. Patient started on empiric antibiotics and admitted to the intensive care unit. No events overnight. Planned for ureteral stenting later today. Critical Care Time (minutes): 45 Physical Exam 2 Vital Signs: Vital Signs: Last Vital Signs Temp 98.8 F 09/11/24 09:00 Pulse 61 09/11/24 09:00 Resp 22 H 09/11/24 09:00 BP 111/48 L 09/11/24 09:00 Pulse Ox 98 09/11/24 09:00 O2 Del Method Nasal Cannula 09/11/24 09:00 O2 Flow Rate 2 09/11/24 09:00 BMI result Body Mass Index 33.4 Const: General: no acute distress, alert and awake Eyes: Sclerae: sclerae normal EOM: EOMs intact bilaterally Neck: Neck: Yes no lymphadenopathy, Yes trachea midline and Yes supple Resp: Effort & Inspection: normal respiratory effort and no respiratory distress Auscultation: clear to auscultation bilaterally Cardio: Rate: regular rate Rhythm: regular rhythm Heart sounds: no gallops, no murmurs and no rubs GI: Palpation (GI): Soft to palpation and Other GI palpation findings present ( Nontender) Auscultation: normal bowel sounds Extrem: General: Yes no pedal edema, No clubbing and No cyanosis Objective Data Labs 09/11/24 05:26 09/11/24 05:26 Labs: Laboratory Results - last 24 hr 09/10/24 09/10/24 09/10/24 10:48 11:22 18:24 WBC RBC Hgb Hct MCV MCH MCHC RDW Plt Count MPV Immature Gran % (Auto) Neut % (Auto) Lymph % (Auto) [place] % (Auto) Eos % (Auto) Baso % (Auto) Lymph # (Auto) [place] # (Auto) Eos # (Auto) Baso # (Auto) Abs Immat Gran (auto) Absolute Neuts (auto) Absolute Nucleated RBC Nucleated RBC % (auto) VBG pH VBG pCO2 VBG pO2 VBG HCO3 VBG O2 Saturation VBG Base Excess Sodium Potassium Chloride Carbon Dioxide Anion Gap BUN Creatinine Estim Creat Clear Calc Estimated GFR POC Glucose 144 H 144 H Random Glucose Lactic Acid F/U @ 4Hr 1.9 Calcium Phosphorus Magnesium Albumin 09/10/24 09/11/24 09/11/24 23:35 05:26 05:28 WBC 11.2 H RBC 3.48 L Hgb 9.0 L Hct 26.5 L MCV 76.1 L MCH 25.9 L MCHC 34.0 RDW 16.3 H Plt Count 166 MPV 9.7 Immature Gran % (Auto) 0.6 H Neut % (Auto) 88.6 H Lymph % (Auto) 2.4 L [place] % (Auto) 8.3 Eos % (Auto) 0.0 Baso % (Auto) 0.1 Lymph # (Auto) 0.3 L [place] # (Auto) 0.9 Eos # (Auto) 0.0 Baso # (Auto) 0.0 Abs Immat Gran (auto) 0.07 H Absolute Neuts (auto) 9.9 H Absolute Nucleated RBC 0.000 Nucleated RBC % (auto) 0.0 VBG pH 7.51 H VBG pCO2 25 VBG pO2 70 VBG HCO3 20 L VBG O2 Saturation 94.0 VBG Base Excess -1.3 Sodium 133 L Potassium 5.0 Chloride 98 Carbon Dioxide 18 L Anion Gap 22 H BUN 70 H Creatinine 3.82 H Estim Creat Clear Calc 9.6 Estimated GFR 11 POC Glucose 220 H Random Glucose 138 H Lactic Acid F/U @ 4Hr Calcium 8.4 Phosphorus 5.5 H Magnesium 2.0 Albumin 3.5 09/11/24 05:34 WBC RBC Hgb Hct MCV MCH MCHC RDW Plt Count MPV Immature Gran % (Auto) Neut % (Auto) Lymph % (Auto) [place] % (Auto) Eos % (Auto) Baso % (Auto) Lymph # (Auto) [place] # (Auto) Eos # (Auto) Baso # (Auto) Abs Immat Gran (auto) Absolute Neuts (auto) Absolute Nucleated RBC Nucleated RBC % (auto) VBG pH VBG pCO2 VBG pO2 VBG HCO3 VBG O2 Saturation VBG Base Excess Sodium Potassium Chloride Carbon Dioxide Anion Gap BUN Creatinine Estim Creat Clear Calc Estimated GFR POC Glucose 146 H Random Glucose Lactic Acid F/U @ 4Hr Calcium Phosphorus Magnesium Albumin Microbiology Microbiology Results: Microbiology 09/09/24 Unknown Urine clean catch - Clean Catch Midstream Urine Culture - Preliminary Gram negative hilda 09/09/24 20:29 Blood - Venous Blood Culture - Preliminary Gram negative hilda 09/09/24 19:59 Blood - Venous Blood Culture - Preliminary Gram negative hilda Progress Note: A&P Assessment and plan (1) History of CHF (congestive heart failure): Status: Acute (2) Non-rheumatic mitral regurgitation: Status: Acute (3) Pacemaker: Status: Acute (4) Type 2 diabetes mellitus with diabetic neuropathy, with long-term current use of insulin: Status: Acute (5) Acute renal failure: Status: Acute (6) Recurrent UTI (urinary tract infection): Status: Acute (7) Septic shock due to urinary tract infection: Status: Acute (8) Gram-negative bacteremia: Status: Acute Plan Assessment: 84-year-old lady admitted with septic shock and Gram-negative bacteremia with recurrent UTI as a source. Plan: Neuro: No acute issues. Cardiac: Septic shock, continue to titrate off pressor support as tolerated. Underlying paroxysmal AFib, aortic stenosis, and mitral regurgitation. Pulmonary: No acute issues. Renal: Acute renal failure secondary to septic shock with source. Non oliguric. Continue to monitor renal indices and urine output. Urology service care appreciated, planned for stenting later today. Endo: No acute issues. GI: No acute issues. ID: Gram-negative bacteremia with septic shock with source. Continue broad- spectrum antibiotics. Heme/Onc: No acute issues. Psych: No acute issues. Miscellaneous: No acute issues. Prophylaxis: Pneumatic compression Diet: NPO procedure Critical care time spent: 45 minutes Quality Stroke Does the patient have a stroke diagnosis?: No VTE Prior VTE?: No VTE Risk Level:: Medical - moderate - high VTE Device Contraindication: N/A - Device Ordered VTE Drug Contraindication: Treatment Not Indicated
--- NOTE | 2024-09-11 11:17 | P.CDIM_ITS ---
PROVIDER RESPONSE TEXT: To clarify, the appropriate diagnosis supported by the clinical indicators: Hyperkalemia: Suspected QUERY TEXT: PHYSICIAN'S DOCUMENTATION REQUEST Date of Query: 09/11/2024 11:04 AM EDT Patient Name: Aminah Kraft Admit Date: 09/10/2024 Dear Martín Mcneill MD, A review of the medical record indicates additional documentation may be needed. Please review below and update the documentation accordingly. Clinical Indicators: LABS: potassium 5.8 5.0 Based on the above, is there a diagnosis that correlates with these lab findings: Hyperkalemia resolved, possible, suspected, etc. Labs indicate a diagnosis of (please specify) Other (explain) Clinically unable to determine (explain) Thank you, Marietta Jewell, CCS, CDIS Use of terms such as suspected, likely, concern for, or probable (associated with a specific diagnosis that is being evaluated, monitored, or treated as if it exists) are acceptable and can be coded in the inpatient setting, when documented at the time of discharge. Please use your independent medical judgment in providing your response. THIS QUERY IS PART OF THE PERMANENT MEDICAL RECORD
[2024-09-11 11:47] LABS: Glucose, Whole Blood 142 mg/dL (60-115)
--- NOTE | 2024-09-11 13:01 | MHC.SHP ---
Pre-Procedural Eval Section A - 24 Hr Update-Section A only Date of Service: 09/11/24 The patient is an INPATIENT: Yes Changes since office visit: No Cold of Flu in the past 2 weeks, No New Medical Problems, No Changes in Medication and No Patient answered all questions The patient has been examined within 24 hours of the surgical procedure. The History & Physical has been completed within 30 days and I have reviewed it.: Yes Section B - Complete if H&P > 30 days Chief Complaint: Altered Mental Status Allergies: Allergies Allergy/AdvReac Type Severity Reaction Status Date / Time latex (Latex) Allergy Severe RASH Verified 09/09/24 19:41 cephalexin (CEPHALEXIN) Allergy Intermediate SWELLING Verified 09/09/24 19:41 adhesive tape (Adhesive Tape) Allergy Mild CONTACT Verified 09/09/24 19:41 DERMATITIS empagliflozin (From AdvReac Severe Dizziness Verified 09/09/24 19:41 Jardiance) flecainide (From Tambocor) AdvReac Severe HEART Verified 09/09/24 19:41 RACING Biaxin AdvReac Intermediate plapitation Verified 09/09/24 19:41 s lisinopril (LISINOPRIL) AdvReac Intermediate cough, Verified 09/09/24 19:41 nausea bacitracin (From Cortisporin) AdvReac Mild EYE Verified 09/09/24 19:41 IRRITATION hydrocortisone (From AdvReac Mild EYE Verified 09/09/24 19:41 Cortisporin) IRRITATION neomycin (From Cortisporin) AdvReac Mild EYE Verified 09/09/24 19:41 IRRITATION nitrofurantoin AdvReac Loss of Verified 09/09/24 19:41 Appetite Plan I have reviewed the history and physical and performed a pertinent physical examination on my patient. No changes have occurred unless specified. Time Spent With Patient Time: Total time managing care of this patient today ____ minutes.
--- NOTE | 2024-09-11 13:37 | P.CONAN_ITS ---
HPI - Anesthesia Eval Consult details Narrative: Ms. Kraft is a 84-year-old female with history of diabetes, congestive heart failure s/p? pacemaker, aortic stenosis, mitral regurgitation, hypertension, paroxysmal atrial fibrillation on anticoagulation, pulmonary hypertension, dyslipidemia, anemia, cholelithiasis, s/p kyphoplasty Jan 2024, recurrent UTI mostly recently treated about 3 weeks ago with ciprofloxacin, who presented to the emergency room from home with her daughter for complaint of generalized weakness, confusion, nausea and vomiting, On arrival to the emergency room, temp? was 102.2,? blood pressure? 108/47, heart rate 77, O2 sat 91% on room air.? Laboratory data significant for WBC 17.3, hemoglobin 10.2, hematocrit 32.6, sodium 134, potassium 5.8, anion gap 21, BUN 57, creatinine 3.27, glucose 203, initial lactic acid 5.7. Urinalysis indicative of UTI. Imaging: ? Chest x-ray showed cardiomegaly, mild diffuse interstitial prominence bilaterally, tiny bilateral pleural effusions likely due to fluid overload/CHF. CT abdomen/pelvis:?pending ED course:? The patient received 2 bags of albumin, acetaminophen 975 mg, Zosyn 4.5 g. She was started on Levophed for pressor support. current k 5.0 echo 55% ef aortic valve 1.08 severe LA dilatation hct 26 PMFSH Active Problems Active Problems: All Active Problems Gram-negative bacteremia (Acute) History of CHF (congestive heart failure) (Acute) Acute renal failure (Acute) Generalized weakness (Acute) Septic shock due to urinary tract infection (Acute) UTI symptoms (Acute) Hematuria (Acute) Right nephrolithiasis (Acute) Recurrent UTI (urinary tract infection) (Acute) Hiatal hernia (Acute) Gastritis (Acute) Opioid-induced constipation (Acute) Radiculopathy, thoracic region (Acute) Dorsalgia of thoracic region (Acute) Compression fracture of thoracic vertebra (Acute) H/O kyphoplasty (Acute) Degenerative disc disease, thoracic (Acute) Degenerative disc disease, lumbar (Acute) Pacemaker (Acute) Chronic combined systolic and diastolic CHF (congestive heart failure) (Acute) LBBB (left bundle branch block) (Acute) Tricuspid regurgitation (Acute) Urinary incontinence (Acute) Current use of anticoagulant therapy (Acute) Age-related osteoporosis with current pathological fracture, vertebra(e), initial encounter for fracture (Acute) Compression fracture of lumbar spine, non-traumatic (Acute) Nontraumatic compression fracture of thoracic vertebra (Acute) Moderate aortic stenosis (Acute) Renal cyst (Acute) Non-rheumatic mitral regurgitation (Acute) Microcytic anemia (Acute) Atrophic vaginitis (Acute) Osteoarthritis of knees, bilateral (Acute) Essential hypertension (Acute) Dyslipidemia (Acute) Type 2 diabetes mellitus with diabetic neuropathy, with long-term current use of insulin (Acute) Past Medical History Medical History Right nephrolithiasis Recurrent UTI (urinary tract infection) Hiatal hernia Gastritis Opioid-induced constipation Degenerative disc disease, thoracic Degenerative disc disease, lumbar [place] (hard of hearing) Wears hearing aid in both ears Uses walker Hx of cardiac pacemaker (10/06/23) Age-related osteoporosis with current pathological fracture, vertebra(e), initial encounter for fracture Compression fracture of lumbar spine, non-traumatic Nontraumatic compression fracture of thoracic vertebra Moderate aortic stenosis Diabetes mellitus Congestive heart failure Urinary tract infection Hypertension Paroxysmal atrial fibrillation Cholelithiasis Renal cyst Nephrolithiasis Pulmonary hypertension Non-rheumatic mitral regurgitation Permanent atrial fibrillation Microcytic anemia Atrophic vaginitis Osteoarthritis of knees, bilateral Essential hypertension Dyslipidemia Type 2 diabetes mellitus with diabetic neuropathy, with long-term current use of insulin Family History Family History Father Diabetes mellitus Mother Diabetes mellitus Myocardial infarction Sister Cancer Sister No problems noted. Son No problems noted. Daughter No problems noted. Family history of problems with anesthesia: No Surgical History Surgical History History of cardiac radiofrequency ablation (RFA) Hx of cardiac catheterization History of esophagogastroduodenoscopy (EGD) (~10/2022) History of lumbar discectomy History of lobectomy of lung History of hysterectomy History of total right knee replacement (TKR) Lumbar radiculopathy History of Problems with Anesthesia: No Social History Social History Household Members: Family Housing: House Are you a primary rn patient care to a significant other at home: No Do you presently have visiting nurse or other home services: No Unable to assess alcohol history related to: Unable to respond Alcohol intake: never Patient Tobacco Use Status: Former Tobacco user Tobacco use type: Cigarette e-Cigarette/Vaping Use: Never Used Advance Directives Date on File: 06/20/23 service: No Current occupational status: retired Cognitive needs: No Hearing needs: Yes Vision needs: Yes Meds Allergies Allergy/AdvReac Type Severity Reaction Status Date / Time latex (Latex) Allergy Severe RASH Verified 09/09/24 19:41 cephalexin (CEPHALEXIN) Allergy Intermediate SWELLING Verified 09/09/24 19:41 adhesive tape (Adhesive Tape) Allergy Mild CONTACT Verified 09/09/24 19:41 DERMATITIS empagliflozin (From AdvReac Severe Dizziness Verified 09/09/24 19:41 Jardiance) flecainide (From Tambocor) AdvReac Severe HEART Verified 09/09/24 19:41 RACING Biaxin AdvReac Intermediate plapitation Verified 09/09/24 19:41 s lisinopril (LISINOPRIL) AdvReac Intermediate cough, Verified 09/09/24 19:41 nausea bacitracin (From Cortisporin) AdvReac Mild EYE Verified 09/09/24 19:41 IRRITATION hydrocortisone (From AdvReac Mild EYE Verified 09/09/24 19:41 Cortisporin) IRRITATION neomycin (From Cortisporin) AdvReac Mild EYE Verified 09/09/24 19:41 IRRITATION nitrofurantoin AdvReac Loss of Verified 09/09/24 19:41 Appetite Active Medications: Current Medications Acetaminophen (Acetaminophen 325 Mg Tablet) 650 mg PO Q6H PRN PRN Reason: Fever >101 Last Admin: 09/10/24 19:57 Dose: 650 mg Dextrose (Dextrose 50 % 25 Gm/50 Ml Syringe) 25 gm IVPUSH Q15M PRN; Protocol PRN Reason: per Hypoglycemia Standing Ord. Glucose (Glucose Gel 15 Gm Gel..Gram.) 15 gm PO Q15M PRN; Protocol PRN Reason: per Hypoglycemia Standing Ord. Norepinephrine Bitartrate (Levophed) 8 mg in 250 mls @ 0 mls/hr IVCONT .Q0M TASHA; Protocol Last Titration: 09/11/24 13:02 Dose: 0 mcg/kg/min, 0 mls/hr Piperacillin Sod/Tazobactam (Sod 2.25 gm/ Sodium Chloride) 50 mls @ 100 mls/hr IV Q8H [facility] Last Infusion: 09/11/24 04:59 Dose: Infused Insulin Human Lispro (Insulin Lispro 100 Unit/Ml 3 Ml Vial) 0 unit SUBCUT Q6H [facility]; Protocol Last Admin: 09/11/24 11:53 Dose: Not Given Loratadine (Loratadine 10 Mg Tablet) 10 mg PO DAILY [facility] Last Admin: 09/11/24 08:00 Dose: Not Given Pantoprazole Sodium (Pantoprazole Sodium 40 Mg/10 Ml Vial) 40 mg IVPUSH DAILY@0630 [facility] Last Admin: 09/11/24 05:50 Dose: 40 mg Home Medications ?Medication ?Instructions ?Recorded ?Confirmed ?Last Taken ?Type coenzyme Q10 100 mg capsule 100 mg PO DAILY 04/28/22 0 09/10/24 09/09/24 History (CoQ-10) vit C 250 mg-vit E 90 mg-zinc 40 1 tab PO BID 08/30/23 09/10/24 09/09/24 History mg-copper 1 [id number] capsule (PreserVision AREDS-2) acetaminophen 650 mg 650 mg PO Q8H 05/14/2409/1009/09/24 History tablet,extended release (Tylenol Arthritis Pain) insulin glargine 100 unit/mL (3 5 unit subcut DAILY 09/10/24 09/09/24 History mL) subcutaneous pen (Lantus Solostar U-100 Insulin) insulin lispro 200 unit/mL (3 mL) 2 - 12 unit subcut T ID PRN high 07/29/24 09/10/24 Unknown History subcutaneous pen (Humalog KwikPen sugar U-200 Insulin) loratadine 10 mg capsule (Allergy 10 mg PO DAILY 07/2909/10/24 09/09/24 History Relief (loratadine)) tramadol 50 mg tablet 50 mg PO BID 09/10/2409/09/24 History tramadol 50 mg tablet 50 mg PO DAILY PRN pain 08/1809/10/24 Unknown History Exam Height,Weight and Vital Signs: Height 5 ft Weight 77.5 kg Last Vital Signs Temp 99.0 F 09/11/24 12:00 Pulse 61 09/11/24 13:02 Resp 22 H 09/11/24 13:00 BP 127/57 L 09/11/24 13:02 Pulse Ox 98 09/11/24 13:00 O2 Del Method Nasal Cannula 09/11/24 13:00 O2 Flow Rate 2 09/11/24 13:00 Pertinent Lab Results Pertinent Lab Results: Laboratory Tests 09/09/24 09/09/24 09/09/24 19:59 20:00 20:29 WBC 17.3 H RBC 4.05 L Hgb 10.2 L Hct 32.6 L MCV 80.5 MCH 25.2 L MCHC 31.3 RDW 16.0 Plt Count 218 D MPV 9.6 Immature Gran % (Auto) 1.0 H Neut % (Auto) 88.8 H Lymph % (Auto) 2.0 L [place] % (Auto) 7.1 Eos % (Auto) 0.7 Baso % (Auto) 0.4 Lymph # (Auto) 0.4 L [place] # (Auto) 1.2 Eos # (Auto) 0.1 Baso # (Auto) 0.1 Abs Immat Gran (auto) 0.17 H Absolute Neuts (auto) 15.3 H Absolute Nucleated RBC 0.000 Nucleated RBC % (auto) 0.0 Smear Tech's Comments PT 22.0 H D INR 1.9 H VBG pH VBG pCO2 VBG pO2 VBG HCO3 VBG O2 Saturation VBG Base Excess Sodium 134 L Potassium 5.8 H D Chloride 97 Carbon Dioxide 22 Anion Gap 21 H BUN 57 H Creatinine 3.27 H Estim Creat Clear Calc 10.5 Estimated GFR 13 POC Glucose Random Glucose 203 H Lactic Acid 5.7 H* Lactic Acid F/U @ 2Hr Lactic Acid F/U @ 4Hr Calcium 9.2 Phosphorus Magnesium Total Bilirubin 0.8 AST 34 H ALT 16 Alkaline Phosphatase 64 Total Protein 7.5 Albumin 4.1 Urine Color Urine Appearance Urine pH Ur Specific [place] Urine Protein Urine Glucose (UA) Urine Ketones Urine Blood Urine Nitrite Ur Leukocyte Esterase Urine RBC Urine WBC Ur Squamous Epith Cells Urine Bacteria Hyaline Casts Influenza Type A (PCR) NEGATIVE Influenza Type B (PCR) NEGATIVE RSV RNA Qual (PCR) NEGATIVE SARS-CoV-2 RNA (RT-PCR) NEGATIVE 09/09/24 09/09/24 09/09/24 21:22 22:30 22:33 WBC RBC Hgb Hct MCV MCH MCHC RDW Plt Count MPV Immature Gran % (Auto) Neut % (Auto) Lymph % (Auto) [place] % (Auto) Eos % (Auto) Baso % (Auto) Lymph # (Auto) [place] # (Auto) Eos # (Auto) Baso # (Auto) Abs Immat Gran (auto) Absolute Neuts (auto) Absolute Nucleated RBC Nucleated RBC % (auto) Smear Tech's Comments PT INR VBG pH VBG pCO2 VBG pO2 VBG HCO3 VBG O2 Saturation VBG Base Excess Sodium Potassium Chloride Carbon Dioxide Anion Gap BUN Creatinine Estim Creat Clear Calc Estimated GFR POC Glucose 214 H Random Glucose Lactic Acid Lactic Acid F/U @ 2Hr 3.8 H* Lactic Acid F/U @ 4Hr Calcium Phosphorus Magnesium Total Bilirubin AST ALT Alkaline Phosphatase Total Protein Albumin Urine Color Dark Yellow Urine Appearance Turbid Urine pH 6.0 Ur Specific [place] 1.025 Urine Protein 300 (3+) H Urine Glucose (UA) Negative Urine Ketones Trace Urine Blood Large (3+) H Urine Nitrite Negative Ur Leukocyte Esterase Large (3+) H Urine RBC >20 H Urine WBC >50 H Ur Squamous Epith Cells >20 Urine Bacteria 4+ Hyaline Casts 3-5 Influenza Type A (PCR) Influenza Type B (PCR) RSV RNA Qual (PCR) SARS-CoV-2 RNA (RT-PCR) 09/09/24 09/09/24 09/10/24 22:36 23:54 01:55 WBC RBC Hgb Hct MCV MCH MCHC RDW Plt Count MPV Immature Gran % (Auto) Neut % (Auto) Lymph % (Auto) [place] % (Auto) Eos % (Auto) Baso % (Auto) Lymph # (Auto) [place] # (Auto) Eos # (Auto) Baso # (Auto) Abs Immat Gran (auto) Absolute Neuts (auto) Absolute Nucleated RBC Nucleated RBC % (auto) Smear Tech's Comments PT INR VBG pH 7.40 VBG pCO2 36 VBG pO2 53 VBG HCO3 22 VBG O2 Saturation 82.0 VBG Base Excess -1.4 Sodium Potassium Chloride Carbon Dioxide Anion Gap BUN Creatinine Estim Creat Clear Calc Estimated GFR POC Glucose Random Glucose Lactic Acid Lactic Acid F/U @ 2Hr Lactic Acid F/U @ 4Hr 6.2 H* Calcium Phosphorus 5.2 H Magnesium Total Bilirubin AST ALT Alkaline Phosphatase Total Protein Albumin Urine Color Urine Appearance Urine pH Ur Specific [place] Urine Protein Urine Glucose (UA) Urine Ketones Urine Blood Urine Nitrite Ur Leukocyte Esterase Urine RBC Urine WBC Ur Squamous Epith Cells Urine Bacteria Hyaline Casts Influenza Type A (PCR) Influenza Type B (PCR) RSV RNA Qual (PCR) SARS-CoV-2 RNA (RT-PCR) 09/10/24 09/10/24 09/10/24 05:49 05:54 08:19 WBC 13.3 H RBC 3.67 L Hgb 9.4 L Hct 28.6 L MCV 77.9 L MCH 25.6 L MCHC 32.9 RDW 16.0 Plt Count 168 MPV 9.7 Immature Gran % (Auto) 0.6 H Neut % (Auto) 91.9 H Lymph % (Auto) 1.7 L [place] % (Auto) 5.7 Eos % (Auto) 0.0 Baso % (Auto) 0.1 Lymph # (Auto) 0.2 L [place] # (Auto) 0.8 Eos # (Auto) 0.0 Baso # (Auto) 0.0 Abs Immat Gran (auto) 0.08 H Absolute Neuts (auto) 12.3 H Absolute Nucleated RBC 0.000 Nucleated RBC % (auto) 0.0 Smear Tech's Comments VERIFIED PT INR VBG pH 7.49 H VBG pCO2 25 VBG pO2 68 VBG HCO3 20 L VBG O2 Saturation 94.0 VBG Base Excess -1.9 Sodium 134 L Potassium 5.8 H Chloride 99 Carbon Dioxide 19 L Anion Gap 22 H BUN 60 H Creatinine 3.50 H Estim Creat Clear Calc 10.5 Estimated GFR 12 POC Glucose Random Glucose 154 H Lactic Acid 2.9 H* Lactic Acid F/U @ 2Hr 2.8 H* Lactic Acid F/U @ 4Hr Calcium 8.5 D Phosphorus 4.6 H Magnesium 1.7 Total Bilirubin AST ALT Alkaline Phosphatase Total Protein Albumin 3.7 Urine Color Urine Appearance Urine pH Ur Specific [place] Urine Protein Urine Glucose (UA) Urine Ketones Urine Blood Urine Nitrite Ur Leukocyte Esterase Urine RBC Urine WBC Ur Squamous Epith Cells Urine Bacteria Hyaline Casts Influenza Type A (PCR) Influenza Type B (PCR) RSV RNA Qual (PCR) SARS-CoV-2 RNA (RT-PCR) 09/10/24 09/10/24 09/10/24 10:48 11:22 18:24 WBC RBC Hgb Hct MCV MCH MCHC RDW Plt Count MPV Immature Gran % (Auto) Neut % (Auto) Lymph % (Auto) [place] % (Auto) Eos % (Auto) Baso % (Auto) Lymph # (Auto) [place] # (Auto) Eos # (Auto) Baso # (Auto) Abs Immat Gran (auto) Absolute Neuts (auto) Absolute Nucleated RBC Nucleated RBC % (auto) Smear Tech's Comments PT INR VBG pH VBG pCO2 VBG pO2 VBG HCO3 VBG O2 Saturation VBG Base Excess Sodium Potassium Chloride Carbon Dioxide Anion Gap BUN Creatinine Estim Creat Clear Calc Estimated GFR POC Glucose 144 H 144 H Random Glucose Lactic Acid Lactic Acid F/U @ 2Hr Lactic Acid F/U @ 4Hr 1.9 Calcium Phosphorus Magnesium Total Bilirubin AST ALT Alkaline Phosphatase Total Protein Albumin Urine Color Urine Appearance Urine pH Ur Specific [place] Urine Protein Urine Glucose (UA) Urine Ketones Urine Blood Urine Nitrite Ur Leukocyte Esterase Urine RBC Urine WBC Ur Squamous Epith Cells Urine Bacteria Hyaline Casts Influenza Type A (PCR) Influenza Type B (PCR) RSV RNA Qual (PCR) SARS-CoV-2 RNA (RT-PCR) 09/10/24 09/11/24 09/11/24 23:35 05:26 05:28 WBC 11.2 H RBC 3.48 L Hgb 9.0 L Hct 26.5 L MCV 76.1 L MCH 25.9 L MCHC 34.0 RDW 16.3 H Plt Count 166 MPV 9.7 Immature Gran % (Auto) 0.6 H Neut % (Auto) 88.6 H Lymph % (Auto) 2.4 L [place] % (Auto) 8.3 Eos % (Auto) 0.0 Baso % (Auto) 0.1 Lymph # (Auto) 0.3 L [place] # (Auto) 0.9 Eos # (Auto) 0.0 Baso # (Auto) 0.0 Abs Immat Gran (auto) 0.07 H Absolute Neuts (auto) 9.9 H Absolute Nucleated RBC 0.000 Nucleated RBC % (auto) 0.0 Smear Tech's Comments PT INR VBG pH 7.51 H VBG pCO2 25 VBG pO2 70 VBG HCO3 20 L VBG O2 Saturation 94.0 VBG Base Excess -1.3 Sodium 133 L Potassium 5.0 Chloride 98 Carbon Dioxide 18 L Anion Gap 22 H BUN 70 H Creatinine 3.82 H Estim Creat Clear Calc 9.6 Estimated GFR 11 POC Glucose 220 H Random Glucose 138 H Lactic Acid Lactic Acid F/U @ 2Hr Lactic Acid F/U @ 4Hr Calcium 8.4 Phosphorus 5.5 H Magnesium 2.0 Total Bilirubin AST ALT Alkaline Phosphatase Total Protein Albumin 3.5 Urine Color Urine Appearance Urine pH Ur Specific [place] Urine Protein Urine Glucose (UA) Urine Ketones Urine Blood Urine Nitrite Ur Leukocyte Esterase Urine RBC Urine WBC Ur Squamous Epith Cells Urine Bacteria Hyaline Casts Influenza Type A (PCR) Influenza Type B (PCR) RSV RNA Qual (PCR) SARS-CoV-2 RNA (RT-PCR) 09/11/24 09/11/24 05:34 11:42 WBC RBC Hgb Hct MCV MCH MCHC RDW Plt Count MPV Immature Gran % (Auto) Neut % (Auto) Lymph % (Auto) [place] % (Auto) Eos % (Auto) Baso % (Auto) Lymph # (Auto) [place] # (Auto) Eos # (Auto) Baso # (Auto) Abs Immat Gran (auto) Absolute Neuts (auto) Absolute Nucleated RBC Nucleated RBC % (auto) Smear Tech's Comments PT INR VBG pH VBG pCO2 VBG pO2 VBG HCO3 VBG O2 Saturation VBG Base Excess Sodium Potassium Chloride Carbon Dioxide Anion Gap BUN Creatinine Estim Creat Clear Calc Estimated GFR POC Glucose 146 H 142 H Random Glucose Lactic Acid Lactic Acid F/U @ 2Hr Lactic Acid F/U @ 4Hr Calcium Phosphorus Magnesium Total Bilirubin AST ALT Alkaline Phosphatase Total Protein Albumin Urine Color Urine Appearance Urine pH Ur Specific [place] Urine Protein Urine Glucose (UA) Urine Ketones Urine Blood Urine Nitrite Ur Leukocyte Esterase Urine RBC Urine WBC Ur Squamous Epith Cells Urine Bacteria Hyaline Casts Influenza Type A (PCR) Influenza Type B (PCR) RSV RNA Qual (PCR) SARS-CoV-2 RNA (RT-PCR) Airway Mallampati Class: II TM Dist: <=3cm Neck ROM: Poor Heart: rrr Lungs: cta Assessment and Plan Assessment Anesthesia Assessment: Anesthesia Plan Discussed and Chart Reviewed Final Anesthetic Review Family History of Problems with Anesthesia: No History of Problems with Anesthesia: No NPO: Yes ASA Class: IV and Emergency Final Preanesthetic Review: No Changes in Pt Med Stat, Meds/Allgs Chart Reviewed, Consent Obtained/Reviewed and Anes Risks/Benef Reviewed Patient Risk: High Procedure Risk: Low Anesthetic Plan Anesthetic Plan: GA, MAC: and Agree w/ Assess. and Plan Disposition: Standard PACU
--- NOTE | 2024-09-11 14:14 | MHC.CM.PN ---
Pt will go to the OR today for a stent placement: continues on Levophed: pt from home alone without services. CM to follow for update to d/c plan
--- NOTE | 2024-09-11 15:41 | W.PM.OPN ---
Operative Note Operative Note Date of Service: 09/11/24 Narrative: PreOperative Diagnosis: right ureteric stone Post Operative Diagnosis: same Procedure: cysto/retro/stent Surgeon: Dr Hernando Solis Anesthesia: Indications for procedure: septic Procedure: After informed consent was verified the patient was brought to the operating room and placed in a supine position. Anesthesia was administered per protocol. The patient was placed in modified dorsal lithotomy position and prepped and draped in a sterile fashion. A safety pause time-out was performed. Laterality of procedure and antibiotics were confirmed, appropriate imaging was available A 22 [place] cystoscope was introduced per urethra. No abnormality was noted of urethra or bladder. Both ureteric orifices were seen in a normal position. The right ureter was cannulated with an open ended catheter and a retrograde examination was performed. filling defect . A Sensor guidewire was placed under fluoroscopy and a good coil was seen within the renal pelvis. A 6Fr x 22cm double J stent was advanced over the wire and up to the level of the renal pelvis under fluoroscopic and direct visualization. The stent was seen with appropriate coil within the renal pelvis and in the bladder after deployment. The patient tolerated the procedure well and was transferred in a stable condition to the recovery area. Pathology: Drains:
[2024-09-11 17:45] LABS: Glucose, Whole Blood 218 mg/dL (60-115)
--- NOTE | 2024-09-11 18:24 | PC.NURSE ---
Assumed care at 0700- pt. A&0x4, forgetful at times. Junctional rhythm with BBB on tele, HR 60s-70s. norepinephrine gtt weaned off per MAY. Pt. transported to OR for cystoscopy at approx. 1500- see operative notes. [place] removed during procedure, purewick placed, urine blood tinged. weaned to RA, 02 sats >95%. Downgrade orders placed, RN report given to Letty ALICEA. Family at bedside, updated by this RN. Pt. transported to / at approx. 1830.
[2024-09-11 20:59] LABS: Glucose, Whole Blood 252 mg/dL (60-115)
[2024-09-11] MEDS: Acetaminophen Oral Liquid 650 MG/20.3 ML SOLUTION PO (21:38)
[2024-09-11 23:44] LABS: Glucose, Whole Blood 209 mg/dL (60-115)
[2024-09-12] VITALS (15 sets, daily range): BP systolic 109–146; BP diastolic 46–78; PULSE 63–94; RESP 12–29; TEMP 36.2–37.2; O2SAT 93–98; BMI 33.8
--- NOTE | 2024-09-12 03:39 | PC.NURSE ---
PATIENT RETURNED TO ICU ROOM 259-1 APPROX 8:30 PM..ALERT..ORIENTED X3..RESPIRATIONS EASY...BP STABLE..AFEBRILE...PURWIK COLLECTED MARYR DARK URINE..PURWIK READILY DISLODGE AND INCONTINANT MULTIPLE EPISODES MARRY URINE...C/O LOW BACK ACHE...DAUGHTER AT BEDSIDE AND RELATED USE OF TRAMADOL AT HOME..PROVIDER UPDATED...TYLENOL 650MH LIQUIED GIVEN PO PER PROVIDER...TO ASSESS HEMODYNAMIC STABILITY OVERNIGHT AND ? REORDER PRN TRAMADOL IN AM...POSITIONED SIDE TO SIDE...MONITOR ATRIAL FIB WITH BBB..ISOLATED PACED BEATS....FOR THICKENED LIQUIEDS PER PROVIDER
[2024-09-12 05:19] LABS: Albumin Level 3.2 g/dL (3.5-5.0); Anion Gap 21 (12-20); Blood Urea Nitrogen 70 mg/dL (9-16); Calcium 8.5 mg/dL (8.4-10.2); Carbon Dioxide 16 mmol/L (22-29); Chloride 101 mmol/L (96-108); Creatinine Clr Calc Pharmacy 10.0; Estimated Glomerular Filt Rate 12; Magnesium 2.6 mg/dL (1.6-2.6); Potassium 5.9 mmol/L (3.3-5.1); Sodium 132 mmol/L (135-145)
[2024-09-12 06:31] LABS: MANUAL DIFF FLAG NO
[2024-09-12 06:35] LABS: Hematocrit 29.1 % (37.0-47.0); Hemoglobin 9.5 g/dl (12.0-16.0); Imm Gran Abs Auto 0.09 X10*3/uL (0.00-0.03); Imm Gran Pct Auto 0.7 % (0.0-0.4); Lymphocytes Absolute Auto 0.4 X10*3/uL (1.2-4.9); Mean Corpuscular HGB Conc 32.6 g/dl (31.0-35.0); Mean Corpuscular Hemoglobin 25.1 pg (27.0-33.0); Mean Corpuscular Volume 77.0 fL (80.0-98.0); NRBC Abs Auto 0.000 X10*3/uL (0.0-0.012); NRBC Pct Auto 0.0 /100WBC (0.0-0.2); Platelet Count 167 X10*3/uL (160-400); Red Blood Count 3.78 X10*6/uL (4.20-5.50); White Blood Count 12.2 X10*3/uL (4.8-10.8)
[2024-09-12 06:58] LABS: Anion Gap 21 (12-20); Blood Urea Nitrogen 76 mg/dL (9-16); Calcium 8.6 mg/dL (8.4-10.2); Carbon Dioxide 20 mmol/L (22-29); Chloride 98 mmol/L (96-108); Creatinine Clr Calc Pharmacy 9.8; Estimated Glomerular Filt Rate 11; Magnesium 2.2 mg/dL (1.6-2.6); Potassium 4.7 mmol/L (3.3-5.1); Sodium 134 mmol/L (135-145)
[2024-09-12 07:41] LABS: Glucose, Whole Blood 248 mg/dL (60-115)
[2024-09-12] MEDS: 0.9 % Sodium Chloride Flush 3 ML SYRINGE IVFLUSH ×2 (07:48→15:33)
--- NOTE | 2024-09-12 09:16 | HO.POSTANES ---
Post Anesthesia Evaluation Post Anesthesia Evaluation Date of Service: 09/12/24 Vital Signs: Vital Signs Temp Pulse Resp BP Pulse Ox O2 Del Method O2 Flow Rate 09/12/24 08:00 97.1 F 77 28 H 145/66 H 98 Nasal Cannula 2 09/12/24 07:00 80 29 H 127/72 96 Nasal Cannula 2 09/12/24 06:00 80 21 H 127/71 94 Nasal Cannula 2 09/12/24 05:00 86 26 H 141/78 H 93 Nasal Cannula 2 09/12/24 04:00 97.7 F 66 20 135/59 L 97 Nasal Cannula 2 09/12/24 03:00 97.7 F 70 18 134/59 L 96 Nasal Cannula 2 09/12/24 02:00 63 12 110/54 L 96 Nasal Cannula 2 09/12/24 01:00 69 13 109/46 L 96 Nasal Cannula 2 09/12/24 00:00 97.5 F 68 24 H 109/46 L 94 Nasal Cannula 2 09/11/24 23:00 98 25 H 127/54 L 94 Room Air 09/11/24 22:00 79 25 H 130/55 L 89 L Room Air Anesthesia: Monitored Mental Status: Awake Pain Control: Satisfactory Nausea/Vomiting: None Hydration: Adequate Anesthesia-Related Issues: No Anes. Related Issues
--- NOTE | 2024-09-12 10:20 | PM.CCPN ---
Subjective Subjective Date of Service: 09/12/24 Interval History: 84-year-old lady with underlying diabetes mellitus, systolic heart failure, AFib status post pacemaker, aortic stenosis, mitral regurgitation, recurrent UTIs with nephrolithiasis admitted on 09/10/2024 with septic shock and Klebsiella bacteremia with source requiring pressor support. Patient started on empiric antibiotics and admitted to the intensive care unit. Status post right-sided ureteral stenting on 09/11/2024. No events overnight. Titrated off pressor support. Critical Care Time (minutes): 0 Physical Exam Vital Signs: Vital Signs: Last Vital Signs Temp 97.1 F 09/12/24 08:00 Pulse 83 09/12/24 09:00 Resp 25 H 09/12/24 09:00 BP 146/51 H 09/12/24 09:00 Pulse Ox 96 09/12/24 09:00 O2 Del Method Nasal Cannula 09/12/24 09:00 O2 Flow Rate 2 09/12/24 09:00 BMI result Body Mass Index 33.8 Const: General: no acute distress, alert and awake Eyes: Sclerae: sclerae normal EOM: EOMs intact bilaterally Neck: Neck: Yes no lymphadenopathy, Yes trachea midline and Yes supple Resp: Effort & Inspection: normal respiratory effort and no respiratory distress Auscultation: clear to auscultation bilaterally Cardio: Rate: regular rate Rhythm: regular rhythm Heart sounds: no gallops, no murmurs and no rubs GI: Palpation (GI): Soft to palpation and Other GI palpation findings present ( Nontender) Auscultation: normal bowel sounds Extrem: General: Yes no pedal edema, No clubbing and No cyanosis Objective Data Labs 09/12/24 06:26 09/12/24 06:26 Labs: Laboratory Results - last 24 hr 09/11/24 09/11/24 09/11/24 11:42 17:38 20:55 WBC RBC Hgb Hct MCV MCH MCHC RDW Plt Count MPV Immature Gran % (Auto) Neut % (Auto) Lymph % (Auto) [place] % (Auto) Eos % (Auto) Baso % (Auto) Lymph # (Auto) [place] # (Auto) Eos # (Auto) Baso # (Auto) Abs Immat Gran (auto) Absolute Neuts (auto) Absolute Nucleated RBC Nucleated RBC % (auto) Sodium Potassium Chloride Carbon Dioxide Anion Gap BUN Creatinine Estim Creat Clear Calc Estimated GFR POC Glucose 142 H 218 H 252 H Random Glucose Calcium Phosphorus Magnesium Albumin 09/11/24 09/12/24 09/12/24 23:36 04:28 06:26 WBC 12.2 H RBC 3.78 L Hgb 9.5 L Hct 29.1 L MCV 77.0 L MCH 25.1 L MCHC 32.6 RDW 16.5 H Plt Count 167 MPV 9.9 Immature Gran % (Auto) 0.7 H Neut % (Auto) 85.8 H Lymph % (Auto) 3.0 L [place] % (Auto) 9.7 Eos % (Auto) 0.6 Baso % (Auto) 0.2 Lymph # (Auto) 0.4 L [place] # (Auto) 1.2 Eos # (Auto) 0.1 Baso # (Auto) 0.0 Abs Immat Gran (auto) 0.09 H Absolute Neuts (auto) 10.5 H Absolute Nucleated RBC 0.000 Nucleated RBC % (auto) 0.0 Sodium 132 L 134 L Potassium 5.9 H 4.7 D Chloride 101 98 Carbon Dioxide 16 L 20 L Anion Gap 21 H 21 H BUN 70 H 76 H Creatinine 3.73 H 3.82 H Estim Creat Clear Calc 10.0 9.8 Estimated GFR 12 11 POC Glucose 209 H Random Glucose 169 H 249 H Calcium 8.5 8.6 Phosphorus 4.7 H 4.6 H Magnesium 2.6 2.2 Albumin 3.2 L 09/12/24 07:37 WBC RBC Hgb Hct MCV MCH MCHC RDW Plt Count MPV Immature Gran % (Auto) Neut % (Auto) Lymph % (Auto) [place] % (Auto) Eos % (Auto) Baso % (Auto) Lymph # (Auto) [place] # (Auto) Eos # (Auto) Baso # (Auto) Abs Immat Gran (auto) Absolute Neuts (auto) Absolute Nucleated RBC Nucleated RBC % (auto) Sodium Potassium Chloride Carbon Dioxide Anion Gap BUN Creatinine Estim Creat Clear Calc Estimated GFR POC Glucose 248 H Random Glucose Calcium Phosphorus Magnesium Albumin Microbiology Microbiology Results: Microbiology 09/09/24 20:29 Blood - Venous Blood Culture - Final Klebsiella pneumoniae 09/09/24 19:59 Blood - Venous Blood Culture - Final Klebsiella pneumoniae 09/09/24 Unknown Urine clean catch - Clean Catch Midstream Urine Culture - Final Klebsiella pneumoniae Progress Note: A&P Assessment and plan (1) Chronic combined systolic and diastolic CHF (congestive heart failure): Status: Acute (2) Moderate aortic stenosis: Status: Acute (3) Tricuspid regurgitation: Status: Acute (4) Pacemaker: Status: Acute (5) Type 2 diabetes mellitus with diabetic neuropathy, with long-term current use of insulin: Status: Acute (6) Acute renal failure: Status: Acute (7) Right nephrolithiasis: Status: Acute (8) Bacteremia due to Klebsiella pneumoniae: Status: Acute Plan Assessment: 84-year-old lady admitted with septic shock and Klebsiella bacteremia with recurrent UTI as a source. Plan: Neuro: No acute issues. Cardiac: Septic shock, resolved, titrated off pressor support. Underlying paroxysmal AFib, aortic stenosis, and mitral regurgitation. Pulmonary: No acute issues. Renal: Acute renal failure secondary to septic shock with source. Non oliguric. Continue to monitor renal indices and urine output. Urology service care appreciated. Status post right ureteral stent on 09/11/2024. Endo: No acute issues. GI: No acute issues. ID: Klebsiella bacteremia initial with septic shock with source. Antibiotics narrowed to ceftriaxone. Heme/Onc: No acute issues. Psych: No acute issues. Miscellaneous: No acute issues. Prophylaxis: Apixaban Diet: Regular Quality Stroke Does the patient have a stroke diagnosis?: No VTE Prior VTE?: No VTE Risk Level:: Medical - moderate - high VTE Device Contraindication: N/A - Device Ordered VTE Drug Contraindication: Treatment Not Indicated
[2024-09-12 11:50] LABS: Glucose, Whole Blood 261 mg/dL (60-115)
--- NOTE | 2024-09-12 15:17 | PM.EVENT ---
Event Note Date of Service: 09/12/24 Event Note: This is an 84-year-old female with history of diabetes mellitus, systolic heart failure, AFib status post pacemaker, aortic stenosis, mitral regurgitation, recurrent UTIs with nephrolithiasis admitted on 09/10/2024 with septic shock and Klebsiella bacteremia with source requiring pressor support. Patient started on empiric antibiotics and admitted to the intensive care unit. Status post right-sided ureteral stenting on 09/11/2024, weaned off pressors and downgraded to the medical floor 09/12 septic shock due to Klebsiella UTI and bacteremia/right ureteral stone s/p pressor support in ICU s/p right ureteral stent 09/11 continued on zosyn due to cehalosporin allergy ID consult pending KEO due to above if no improvement in am, will consult nephrology Hyperkalemia due to above resolved sclerotic lesion right iliac crest outaptient follow up chronic combined systolic and diastolic CHF last echo from 06/2024 with EF 50-55%; mild to modeare hold lasix, aldactone for sepsis paroxysmal afib hold metoprolol for sepsis/shock, resume as bp allows continue AC with eliquis HTN hold losartan, metoprolol DM hold metformin diabertic diet follow POCs, cover with sliding scale HLD hold statin for now Time Spent With Patient Time: Total time managing care of this patient today ____ minutes.
[2024-09-12 16:58] LABS: Glucose, Whole Blood 273 mg/dL (60-115)
[2024-09-12 21:04] LABS: Glucose, Whole Blood 267 mg/dL (60-115)
[2024-09-13 03:42] VITALS: BP 150/68; PULSE 75; RESP 17; TEMP 37.1; O2SAT 97
[2024-09-13 05:44] LABS: MANUAL DIFF FLAG NO
[2024-09-13 05:46] LABS: Hematocrit 28.2 % (37.0-47.0); Hemoglobin 9.4 g/dl (12.0-16.0); Imm Gran Abs Auto 0.12 X10*3/uL (0.00-0.03); Imm Gran Pct Auto 1.0 % (0.0-0.4); Lymphocytes Absolute Auto 0.7 X10*3/uL (1.2-4.9); Mean Corpuscular HGB Conc 33.3 g/dl (31.0-35.0); Mean Corpuscular Hemoglobin 25.5 pg (27.0-33.0); Mean Corpuscular Volume 76.4 fL (80.0-98.0); NRBC Abs Auto 0.000 X10*3/uL (0.0-0.012); NRBC Pct Auto 0.0 /100WBC (0.0-0.2); Platelet Count 182 X10*3/uL (160-400); Red Blood Count 3.69 X10*6/uL (4.20-5.50); White Blood Count 11.6 X10*3/uL (4.8-10.8)
[2024-09-13 06:00] VITALS: BMI 32.8
[2024-09-13 06:03] LABS: Anion Gap 18 (12-20); Blood Urea Nitrogen 71 mg/dL (9-16); Calcium 8.7 mg/dL (8.4-10.2); Carbon Dioxide 23 mmol/L (22-29); Chloride 102 mmol/L (96-108); Creatinine Clr Calc Pharmacy 11.2; Estimated Glomerular Filt Rate 13; Potassium 4.2 mmol/L (3.3-5.1); Sodium 139 mmol/L (135-145)
[2024-09-13 07:32] LABS: Glucose, Whole Blood 150 mg/dL (60-115)
[2024-09-13 07:33] VITALS: BP 127/71; PULSE 67; RESP 17; TEMP 36.4; O2SAT 93
[2024-09-13] MEDS: 0.9 % Sodium Chloride Flush 3 ML SYRINGE IVFLUSH ×3 (08:44→22:03)
[2024-09-13 11:32] LABS: Glucose, Whole Blood 359 mg/dL (60-115)
[2024-09-13 11:34] VITALS: BP 107/54; PULSE 73; RESP 18; TEMP 36.8; O2SAT 94
--- NOTE | 2024-09-13 12:02 | P.PNUR_ITS ---
Subjective Subjective Date of Service: 09/13/24 Interval history: Stenting performed Slow improvement Pain has resolved White count slowly resolving Klebsiella management resistant ampicillin Physical Exam 2 Vital Signs: Vital Signs: Last Vital Signs Temp 98.3 F 09/13/24 11:34 Pulse 73 09/13/24 11:34 Resp 18 09/13/24 11:34 BP 107/54 L 09/13/24 11:34 Pulse Ox 94 09/13/24 11:34 O2 Del Method Nasal Cannula 09/13/24 11:34 O2 Flow Rate 2 09/13/24 11:34 BMI result Body Mass Index 32.8 Const: General: cooperative, healthy appearing, comfortable and no acute distress Orientation/consciousness: patient oriented x3 HEENT: Face and sinus: Yes normal facial exam Mouth: moist mucous membranes Neck: Neck: Yes normal visual inspection, Yes full ROM and Yes trachea midline Chest: Chest palpation & inspection: normal inspection of the chest Resp: Effort & Inspection: normal respiratory effort, able to speak in complete sentences and no respiratory distress GI: Inspection: Yes normal to inspection Back/Spine/Pelvis: Cervical Spine: normal cervical lordosis Thoracic/Lumbar Spine: thoracic and lumbar spine normal to inspection Skin: General skin exam: no rashes or lesions noted Neuro: General: patient oriented x3, tone normal and moves all extremities Extrem: General: Yes normal to inspection and Yes capillary refill normal Urology Results Labs 09/13/24 05:38 09/13/24 05:38 Labs: Laboratory Results - last 24 hr 09/12/24 09/12/24 09/13/24 16:29 20:59 05:38 WBC 11.6 H RBC 3.69 L Hgb 9.4 L Hct 28.2 L MCV 76.4 L MCH 25.5 L MCHC 33.3 RDW 16.7 H Plt Count 182 MPV 10.0 Immature Gran % (Auto) 1.0 H Neut % (Auto) 79.7 H Lymph % (Auto) 5.8 L [place] % (Auto) 12.3 H Eos % (Auto) 0.9 Baso % (Auto) 0.3 Lymph # (Auto) 0.7 L [place] # (Auto) 1.4 H Eos # (Auto) 0.1 Baso # (Auto) 0.0 Abs Immat Gran (auto) 0.12 H Absolute Neuts (auto) 9.2 H Absolute Nucleated RBC 0.000 Nucleated RBC % (auto) 0.0 Sodium 139 Potassium 4.2 Chloride 102 Carbon Dioxide 23 Anion Gap 18 BUN 71 H Creatinine 3.33 H Estim Creat Clear Calc 11.2 Estimated GFR 13 POC Glucose 273 H 267 H Random Glucose 140 H Calcium 8.7 09/13/24 09/13/24 07:23 11:29 WBC RBC Hgb Hct MCV MCH MCHC RDW Plt Count MPV Immature Gran % (Auto) Neut % (Auto) Lymph % (Auto) [place] % (Auto) Eos % (Auto) Baso % (Auto) Lymph # (Auto) [place] # (Auto) Eos # (Auto) Baso # (Auto) Abs Immat Gran (auto) Absolute Neuts (auto) Absolute Nucleated RBC Nucleated RBC % (auto) Sodium Potassium Chloride Carbon Dioxide Anion Gap BUN Creatinine Estim Creat Clear Calc Estimated GFR POC Glucose 150 H 359 H* Random Glucose Calcium Progress Note: A&P Assessment and plan (1) Right nephrolithiasis: Status: Acute Plan Conservative therapy Time Spent With Patient Time: Total time managing care of this patient today ____ minutes. Progress Note: Quality Stroke Does the patient have a stroke diagnosis?: No
--- NOTE | 2024-09-13 12:17 | P.PNIM_ITS ---
Subjective Subjective Date of Service: 09/13/24 Interval History: seen and examined this morning Follow-up for septic shock due to urinary source Patient reports she is feeling better this morning. No dysuria, no fever Constitutional Constitutional: Denies chills and Denies fever(s) Cardiovascular Cardiovascular: Denies chest pain, Denies palpitations and Denies dyspnea Respiratory Respiratory: Denies cough and Denies dyspnea Gastrointestinal Gastrointestinal: Denies diarrhea, Denies nausea and Denies vomiting Endocrine Endocrine: Denies palpitations Physical Exam 2 Vital Signs: Vital Signs: Last Vital Signs Temp 98.3 F 09/13/24 11:34 Pulse 73 09/13/24 11:34 Resp 18 09/13/24 11:34 BP 107/54 L 09/13/24 11:34 Pulse Ox 94 09/13/24 11:34 O2 Del Method Nasal Cannula 09/13/24 11:34 O2 Flow Rate 2 09/13/24 11:34 BMI result Body Mass Index 32.8 Const: Other: frail elderly female resting in bed comfortably General: awake Nutritional Appearance: average body habitus O rientation/consciousness: patient oriented x3 Resp: Effort & Inspection: normal respiratory effort, able to speak in complete sentences, no respiratory distress and no use of accessory muscles A uscultation: clear to auscultation bilaterally Cardio: Rate: regular rate GI: Inspection: No distended Palpation (GI): Soft to palpation and nontender Neuro: General: patient oriented x3, moves all extremities and CN's II-XI intact bilaterally Extrem: General: No pedal edema Objective Data Active Medications Acetaminophen (Acetaminophen 325 Mg Tablet) 650 mg PO Q6H PRN PRN Reason: Fever >101 Last Admin: 09/10/24 19:57 Dose: 650 mg Documented By: DEXTER Apixaban (Apixaban 5 Mg Tablet) 5 mg PO BID [facility] Last Admin: 09/13/24 08:44 Dose: 5 mg Documented By: LUIS Dextrose (Dextrose 50 % 25 Gm/50 Ml Syringe) 25 gm IVPUSH Q15M PRN; Protocol PRN Reason: per Hypoglycemia Standing Ord. Gabapentin (Gabapentin 300 Mg Capsule) 300 mg PO BEDTIME [facility] Last Admin: 09/12/24 20:30 Dose: 300 mg Documented By: AMBROSE Glucose (Glucose Gel 15 Gm Gel..Gram.) 15 gm PO Q15M PRN; Protocol PRN Reason: per Hypoglycemia Standing Ord. Piperacillin Sod/Tazobactam (Sod 2.25 gm/ Sodium Chloride) 50 mls @ 100 mls/hr IV Q8H [facility] Last Infusion: 09/13/24 05:58 Dose: Infused Documented By: AMBROSE Insulin Glargine (Insulin Glargine,Hum.Rec.Anlog 100 Unit/Ml 10 Ml Vial) 5 unit SUBCUT DAILY [facility] Insulin Human Lispro (Insulin Lispro 100 Unit/Ml 3 Ml Vial) 0 unit SUBCUT QIDACHS [facility]; Protocol Last Admin: 09/13/24 12:04 Dose: 10 unit Documented By: LUIS Loratadine (Loratadine 10 Mg Tablet) 10 mg PO DAILY [facility] Last Admin: 09/13/24 08:44 Dose: 10 mg Documented By: LUIS Pantoprazole Sodium (Pantoprazole Sodium 40 Mg/10 Ml Vial) 40 mg IVPUSH DAILY@0630 [facility] Last Admin: 09/13/24 04:28 Dose: 40 mg Documented By: AMBROSE Sodium Chloride (0.9 % Sodium Chloride Flush 3 Ml Syringe) 3 ml IVFLUSH QSHIFT [facility] Last Admin: 09/13/24 08:44 Dose: 3 ml Documented By: LUIS Labs 09/13/24 05:38 09/13/24 05:38 Labs: Laboratory Results - last 24 hr 09/12/24 09/12/24 09/13/24 16:29 20:59 05:38 MCV 76.4 L MCH 25.5 L MCHC 33.3 RDW 16.7 H Plt Count 182 MPV 10.0 Immature Gran % (Auto) 1.0 H Neut % (Auto) 79.7 H Lymph % (Auto) 5.8 L [place] % (Auto) 12.3 H Eos % (Auto) 0.9 Baso % (Auto) 0.3 Lymph # (Auto) 0.7 L [place] # (Auto) 1.4 H Eos # (Auto) 0.1 Baso # (Auto) 0.0 Abs Immat Gran (auto) 0.12 H Absolute Neuts (auto) 9.2 H Absolute Nucleated RBC 0.000 Nucleated RBC % (auto) 0.0 Anion Gap 18 Estim Creat Clear Calc 11.2 Estimated GFR 13 POC Glucose 273 H 267 H Random Glucose 140 H Calcium 8.7 09/13/24 09/13/24 07:23 11:29 MCV MCH MCHC RDW Plt Count MPV Immature Gran % (Auto) Neut % (Auto) Lymph % (Auto) [place] % (Auto) Eos % (Auto) Baso % (Auto) Lymph # (Auto) [place] # (Auto) Eos # (Auto) Baso # (Auto) Abs Immat Gran (auto) Absolute Neuts (auto) Absolute Nucleated RBC Nucleated RBC % (auto) Anion Gap Estim Creat Clear Calc Estimated GFR POC Glucose 150 H 359 H* Random Glucose Calcium Microbiology Microbiology Results: Microbiology 09/09/24 20:29 Blood Culture - Final Blood - Venous Klebsiella pneumoniae 09/09/24 19:59 Blood Culture - Final Blood - Venous Klebsiella pneumoniae Assessment and Plan (1) Acute renal failure: Status: Acute (2) Bacteremia: Status: Acute Plan This is an 84-year-old female with history of diabetes mellitus, combined diastolic and systolic heart failure, AFib status post pacemaker, aortic stenosis, mitral regurgitation, recurrent UTIs with nephrolithiasis admitted on 09/10/2024 with septic shock and Klebsiella bacteremia with source requiring pressor support. Patient started on empiric antibiotics and admitted to the intensive care unit. Status post right-sided ureteral stenting on 09/11/2024, weaned off pressors and downgraded to the medical floor 09/12 septic shock due to Klebsiella UTI and bacteremia/right ureteral stone s/p pressor support in ICU s/p right ureteral stent 09/11 now afebrile, wbc trending down continued on zosyn due to cehalosporin allergy ID consult pending KEO likely ATN from sepsis if no improvement in am, will consult nephrology lasix, aldactone, losartan on hold follow renal function daily Hyperkalemia due to above resolved sclerotic lesion right iliac crest outpatient follow up chronic combined systolic and diastolic CHF last echo from 06/2024 with EF 50-55%; mild to moderate hold lasix, aldactone for sepsis/KEO paroxysmal afib hold metoprolol for sepsis/shock, resume as bp allows continue AC with eliquis HTN hold losartan, metoprolol DM with hyperglycemia hold metformin diabetic diet resume lantus follow POCs, cover with sliding scale HLD hold statin for now dvt ppx - eliquis dispo - PT evaluation pending Requires ongoing inpatient stay for management of bacteremia on the KEO requiring specialist evaluation, safe disposition Quality Stroke Does the patient have a stroke diagnosis?: No VTE Prior VTE?: No VTE Risk Level:: Medical - moderate - high VTE Device Contraindication: N/A - Device Ordered VTE Drug Contraindication: Treatment Not Indicated
[2024-09-13 15:41] VITALS: BP 130/60; PULSE 78; RESP 18; TEMP 36.9; O2SAT 94
[2024-09-13 15:47] LABS: Glucose, Whole Blood 270 mg/dL (60-115)
[2024-09-13 20:00] VITALS: BP 168/77; PULSE 79; RESP 17; TEMP 37.4; O2SAT 91
[2024-09-13 21:06] LABS: Glucose, Whole Blood 174 mg/dL (60-115)
--- NOTE | 2024-09-13 23:58 | P.CNID_ITS ---
History of Present Illness Data of Consult Service Date: 09/13/24 Requesting physician: Zuleyma Liz Primary Care Provider: Patricia Nicole MD HPI Reason for consult: recurrent Klebsiella pneumonia,blood,urine this time She presents with weakness and fever for a days and couldnt lift arm due to weakness. She has Klebsiella pneumonia blood,urine. Review of Systems 2 Review of Systems: Yes all other systems are reviewed and are negative [facility] Past Medical History Medical History Right nephrolithiasis Recurrent UTI (urinary tract infection) Hiatal hernia Gastritis Opioid-induced constipation Degenerative disc disease, thoracic Degenerative disc disease, lumbar [place] (hard of hearing) Wears hearing aid in both ears Uses walker Hx of cardiac pacemaker (10/06/23) Age-related osteoporosis with current pathological fracture, vertebra(e), initial encounter for fracture Compression fracture of lumbar spine, non-traumatic Nontraumatic compression fracture of thoracic vertebra Moderate aortic stenosis Diabetes mellitus Congestive heart failure Urinary tract infection Hypertension Paroxysmal atrial fibrillation Cholelithiasis Renal cyst Nephrolithiasis Pulmonary hypertension Non-rheumatic mitral regurgitation Permanent atrial fibrillation Microcytic anemia Atrophic vaginitis Osteoarthritis of knees, bilateral Essential hypertension Dyslipidemia Type 2 diabetes mellitus with diabetic neuropathy, with long-term current use of insulin Family History Family History Father Diabetes mellitus Mother Diabetes mellitus Myocardial infarction Sister Cancer Sister No problems noted. Son No problems noted. Daughter No problems noted. Surgical History Surgical History History of cardiac radiofrequency ablation (RFA) Hx of cardiac catheterization History of esophagogastroduodenoscopy (EGD) (~10/2022) History of lumbar discectomy History of lobectomy of lung History of hysterectomy History of total right knee replacement (TKR) Lumbar radiculopathy Social History Social History Household Members: Family Housing: House Are you a primary nurse healthcare manager to a significant other at home: No Do you presently have visiting nurse or other home services: No Unable to assess alcohol history related to: Unable to respond Alcohol intake: never Patient Tobacco Use Status: Former Tobacco user Tobacco use type: Cigarette e-Cigarette/Vaping Use: Never Used Advance Directives Date on File: 06/20/23 service: No Current occupational status: retired Cognitive needs: No Hearing needs: Yes Vision needs: Yes Meds Allergies Allergy/AdvReac Type Severity Reaction Status Date / Time latex (Latex) Allergy Severe RASH Verified 09/09/24 19:41 cephalexin (CEPHALEXIN) Allergy Intermediate SWELLING Verified 09/09/24 19:41 adhesive tape (Adhesive Tape) Allergy Mild CONTACT Verified 09/09/24 19:41 DERMATITIS empagliflozin (From AdvReac Severe Dizziness Verified 09/09/24 19:41 Jardiance) flecainide (From Tambocor) AdvReac Severe HEART Verified 09/09/24 19:41 RACING Biaxin AdvReac Intermediate plapitation Verified 09/09/24 19:41 s lisinopril (LISINOPRIL) AdvReac Intermediate cough, Verified 09/09/24 19:41 nausea bacitracin (From Cortisporin) AdvReac Mild EYE Verified 09/09/24 19:41 IRRITATION hydrocortisone (From AdvReac Mild EYE Verified 09/09/24 19:41 Cortisporin) IRRITATION neomycin (From Cortisporin) AdvReac Mild EYE Verified 09/09/24 19:41 IRRITATION nitrofurantoin AdvReac Loss of Verified 09/09/24 19:41 Appetite Active Medications: Current Medications Acetaminophen (Acetaminophen 325 Mg Tablet) 650 mg PO Q6H PRN PRN Reason: Fever >101 Last Admin: 09/10/24 19:57 Dose: 650 mg Apixaban (Apixaban 5 Mg Tablet) 5 mg PO BID [facility] Last Admin: 09/13/24 21:56 Dose: 5 mg Dextrose (Dextrose 50 % 25 Gm/50 Ml Syringe) 25 gm IVPUSH Q15M PRN; Protocol PRN Reason: per Hypoglycemia Standing Ord. Gabapentin (Gabapentin 300 Mg Capsule) 300 mg PO BEDTIME [facility] Last Admin: 09/13/24 21:56 Dose: 300 mg Glucose (Glucose Gel 15 Gm Gel..Gram.) 15 gm PO Q15M PRN; Protocol PRN Reason: per Hypoglycemia Standing Ord. Piperacillin Sod/Tazobactam (Sod 2.25 gm/ Sodium Chloride) 50 mls @ 100 mls/hr IV Q8H [facility] Last Infusion: 09/13/24 23:17 Dose: Infused Insulin Glargine (Insulin Glargine,Hum.Rec.Anlog 100 Unit/Ml 10 Ml Vial) 5 unit SUBCUT DAILY [facility] Insulin Human Lispro (Insulin Lispro 100 Unit/Ml 3 Ml Vial) 0 unit SUBCUT QIDACHS [facility]; Protocol Last Admin: 09/13/24 22:00 Dose: 2 unit Loratadine (Loratadine 10 Mg Tablet) 10 mg PO DAILY [facility] Last Admin: 09/13/24 08:44 Dose: 10 mg Pantoprazole Sodium (Pantoprazole Sodium 40 Mg/10 Ml Vial) 40 mg IVPUSH DAILY@0630 [facility] Last Admin: 09/13/24 04:28 Dose: 40 mg Simethicone (Simethicone 80 Mg Tab.Chew) 80 mg PO QIDWMHS PRN PRN Reason: Gas Last Admin: 09/13/24 14:31 Dose: 80 mg Sodium Chloride (0.9 % Sodium Chloride Flush 3 Ml Syringe) 3 ml IVFLUSH QSHIFT [facility] Last Admin: 09/13/24 22:03 Dose: 3 ml Home Medications ?Medication ?Instructions ?Recorded ?Confirmed ?Last Taken ?Type coenzyme Q10 100 mg capsule 100 mg PO DAILY 04/28/22 0 09/10/24 09/09/24 History (CoQ-10) vit C 250 mg-vit E 90 mg-zinc 40 1 tab PO BID 08/30/23 09/10/24 09/09/24 History mg-copper 1 [id number] capsule (PreserVision AREDS-2) acetaminophen 650 mg 650 mg PO Q8H 05/14/2409/1009/09/24 History tablet,extended release (Tylenol Arthritis Pain) insulin glargine 100 unit/mL (3 5 unit subcut DAILY 09/10/24 09/09/24 History mL) subcutaneous pen (Lantus Solostar U-100 Insulin) insulin lispro 200 unit/mL (3 mL) 2 - 12 unit subcut T ID PRN high 07/29/24 09/10/24 Unknown History subcutaneous pen (Humalog KwikPen sugar U-200 Insulin) loratadine 10 mg capsule (Allergy 10 mg PO DAILY 07/2909/10/24 09/09/24 History Relief (loratadine)) tramadol 50 mg tablet 50 mg PO BID 09/10/2409/09/24 History tramadol 50 mg tablet 50 mg PO DAILY PRN pain 08/1809/10/24 Unknown History Physical Exam 2 Vital Signs: Vital Signs: Last Vital Signs Temp 99.4 F 09/13/24 20:00 Pulse 79 09/13/24 20:00 Resp 17 09/13/24 20:00 BP 168/77 H 09/13/24 20:00 Pulse Ox 91 L 09/13/24 20:00 O2 Del Method Room Air 09/13/24 20:00 O2 Flow Rate 2 09/13/24 15:41 BMI result Body Mass Index 32.8 Const: General: cooperative HEENT: Head: Yes normal to inspection Face and sinus: Yes normal facial exam Mouth: Normal oral and palatal mucosa present Teeth and gingiva: d entition normal Eyes: General: appearance normal, both eyes and all related structures P upils: Equal, round and reactive pupils present Resp: Effort & Inspection: normal respiratory effort Cardio: Rate: regular rate Rhythm: regular rhythm GI: Palpation (GI): Soft to palpation and nontender : General: Yes no CVA tenderness Back/Spine/Pelvis: Back: no CVA tenderness Skin: General skin exam: no rashes or lesions noted Neuro: General: moves all extremities Cranial nerves: Yes Equal, round and reactive pupils present Extrem: General: Yes normal to inspection Psych: Appearance: grossly normal Results Labs 09/13/24 05:38 09/13/24 05:38 Labs: Short CBC 09/13/24 Range/Units 05:38 WBC 11.6 H (4.8-10.8) X10*3/uL Hgb 9.4 L (12.0-16.0) g/dl Hct 28.2 L (37.0-47.0) % Plt Count 182 (160-400) X10*3/uL BMP 09/13/24 05:38 Sodium 139 Potassium 4.2 Chloride 102 Carbon Dioxide 23 BUN 71 H Creatinine 3.33 H Calcium 8.7 Microbiology Microbiology Results: Microbiology 09/09/24 20:29 Blood - Venous Blood Culture - Final Klebsiella pneumoniae 09/09/24 19:59 Blood - Venous Blood Culture - Final Klebsiella pneumoniae 09/09/24 Unknown Urine clean catch - Clean Catch Midstream Urine Culture - Final Klebsiella pneumoniae Assessment and Plan (1) Recurrent UTI (urinary tract infection): Status: Acute Plan levaquin or Bactrim for 14 d cover pyelonephritis. See Urology ?stent small stone.
[2024-09-14] VITALS (7 sets, daily range): BP systolic 117–176; BP diastolic 57–80; PULSE 63–88; RESP 17–18; TEMP 36.4–37.2; O2SAT 91–98; BMI 32.6
--- NOTE | 2024-09-14 | ECG_ITS ---
Test Reason : chest pressure Blood Pressure : */* mmHG Vent. Rate : 67 BPM Atrial Rate : * BPM P-R Int : * ms QRS Dur : 146 ms QT Int : 438 ms P-R-T Axes : * -64 89 degrees QTcB Int : 462 ms Atrial fibrillation with Premature ventricular complexes Left axis deviation Left bundle branch block Abnormal ECG When compared with ECG of 10-Sep-2024 04:13, Premature ventricular complexes are now Present Referred By: Vaishali Thomas Electronically Signed By: TIMO GEORGE MD
[2024-09-14 07:45] LABS: Glucose, Whole Blood 205 mg/dL (60-115)
[2024-09-14] MEDS: Insulin Glargine,Hum.rec.anlog 100 UNIT/ML 10 ML VIAL SUBCUT (08:05)
[2024-09-14] MEDS: 0.9 % Sodium Chloride Flush 3 ML SYRINGE IVFLUSH ×3 (08:13→21:31)
--- NOTE | 2024-09-14 10:55 | MHC.SL.SWA ---
Speech Pathologist Impression: Oropharyngeal phases of swallow WNL Risk of Aspiration Due to: Dysphasia Diet Status: Liquid Consistency and Strategies for Safe Swallow: Liquid Intake Recommendation: Thin Liquid Intake Strategies: Solid Food Consistency: Dietary Recommendations: Regular Additional Modifications to Solid Foods: Oral Medication Intake: Whole with Liquid Please contact the pharmacy regarding appropriate crushable or liquid drug formulations that are available whenever modified delivery is recommended. Compensatory Strategies and Precautions to be Taken for Safe Swallow: Supervision While Eating and Drinking for Safe Swallow: None Needed Foods to Avoid: Hard, tough solids Swallowing Recommended Treatments: Recommendation for Speech: NA:Typical Evaluation Comment: Oromotor mechanism WNL. Pt reported she did not want to eat/drink when she was in ICU because she was laying down, informing RN today that she doesn't like the thickened liquids she was given. Pt informed SCHOOL PLANT CONSULTANT that she eats everything when she's hungry and has not had any problems. Oropharyngeal phases of swallow WNL. No dysphagia evident. Frequency/Duration: SCHOOL PLANT CONSULTANT to followup x1 Date Range for Service Req: Timeline to reassess: Tool Pusher Clinican/Clinical Fellow: No Supervisory Statement: I have reviewed and agree with the student/clinical fellow's documentation: N/A Speech Language Pathologist: Eugenia Higginbotham M.S., CCC-SCHOOL PLANT CONSULTANT
[2024-09-14 10:59] LABS: Glucose, Whole Blood 330 mg/dL (60-115)
--- NOTE | 2024-09-14 11:03 | P.PNIM_ITS ---
Subjective Subjective Date of Service: 09/14/24 Interval History: seen and examined this morning follow up for septic shock/bacteremia/renal failure awake, alert; no sob Constitutional Constitutional: Denies chills and Denies fever(s) Cardiovascular Cardiovascular: Denies chest pain, Denies palpitations and Denies dyspnea Respiratory Respiratory: Denies cough and Denies dyspnea Gastrointestinal Gastrointestinal: Denies abdominal pain, Denies nausea and Denies vomiting Endocrine Endocrine: Denies palpitations Physical Exam 2 Vital Signs: Vital Signs: Last Vital Signs Temp 97.5 F 09/14/24 08:00 Pulse 63 09/14/24 08:00 Resp 17 09/14/24 08:00 BP 121/59 L 09/14/24 08:00 Pulse Ox 98 09/14/24 08:00 O2 Del Method Nasal Cannula 09/14/24 08:00 O2 Flow Rate 1 09/14/24 08:00 BMI result Body Mass Index 32.6 Const: Other: frail elderly female resting in bed comfortably General: awake Nutritional Appearance: average body habitus O rientation/consciousness: patient oriented x3 Resp: Effort & Inspection: normal respiratory effort, able to speak in complete sentences, no respiratory distress and no use of accessory muscles A uscultation: clear to auscultation bilaterally Cardio: Rate: regular rate GI: Inspection: No distended Palpation (GI): Soft to palpation and nontender Neuro: General: patient oriented x3, moves all extremities and CN's II-XI intact bilaterally Extrem: General: No pedal edema Objective Data Active Medications Acetaminophen (Acetaminophen 325 Mg Tablet) 650 mg PO Q6H PRN PRN Reason: Fever >101 Last Admin: 09/10/24 19:57 Dose: 650 mg Documented By: DEXTER Apixaban (Apixaban 2.5 Mg Tablet) 2.5 mg PO BID [facility] Dextrose (Dextrose 50 % 25 Gm/50 Ml Syringe) 25 gm IVPUSH Q15M PRN; Protocol PRN Reason: per Hypoglycemia Standing Ord. Gabapentin (Gabapentin 300 Mg Capsule) 300 mg PO BEDTIME [facility] Last Admin: 09/13/24 21:56 Dose: 300 mg Documented By: SAMUEL Glucose (Glucose Gel 15 Gm Gel..Gram.) 15 gm PO Q15M PRN; Protocol PRN Reason: per Hypoglycemia Standing Ord. Piperacillin Sod/Tazobactam (Sod 2.25 gm/ Sodium Chloride) 50 mls @ 100 mls/hr IV Q8H [facility] Last Infusion: 09/14/24 06:13 Dose: Infused Documented By: DEVAN Insulin Glargine (Insulin Glargine,Hum.Rec.Anlog 100 Unit/Ml 10 Ml Vial) 5 unit SUBCUT DAILY [facility] Last Admin: 09/14/24 08:05 Dose: 5 unit Documented By: LUIS Insulin Human Lispro (Insulin Lispro 100 Unit/Ml 3 Ml Vial) 0 unit SUBCUT QIDACHS [facility]; Protocol Last Admin: 09/14/24 08:05 Dose: 4 unit Documented By: LUIS Loratadine (Loratadine 10 Mg Tablet) 10 mg PO DAILY [facility] Last Admin: 09/14/24 08:06 Dose: 10 mg Documented By: LUIS Pantoprazole Sodium (Pantoprazole Sodium 40 Mg/10 Ml Vial) 40 mg IVPUSH DAILY@0630 [facility] Last Admin: 09/14/24 05:30 Dose: 40 mg Documented By: DEVAN Simethicone (Simethicone 80 Mg Tab.Chew) 80 mg PO QIDWMHS PRN PRN Reason: Gas Last Admin: 09/13/24 14:31 Dose: 80 mg Documented By: LUIS Sodium Chloride (0.9 % Sodium Chloride Flush 3 Ml Syringe) 3 ml IVFLUSH QSHIFT [facility] Last Admin: 09/14/24 08:13 Dose: 3 ml Documented By: LUIS Labs 09/13/24 05:38 09/13/24 05:38 Labs: Laboratory Results - last 24 hr 09/13/24 09/13/24 09/13/24 11:29 15:28 21:03 POC Glucose 359 H* 270 H 174 H 09/14/24 09/14/24 07:40 10:54 POC Glucose 205 H 330 H Assessment and Plan (1) Bacteremia due to Klebsiella pneumoniae: Status: Acute (2) Septic shock due to urinary tract infection: Status: Acute Plan This is an 84-year-old female with history of diabetes mellitus, combined diastolic and systolic heart failure, AFib status post pacemaker, aortic stenosis, mitral regurgitation, recurrent UTIs with nephrolithiasis admitted on 09/10/2024 with septic shock and Klebsiella bacteremia with source requiring pressor support. Patient started on empiric antibiotics and admitted to the intensive care unit. Status post right-sided ureteral stenting on 09/11/2024, weaned off pressors and downgraded to the medical floor 09/12 septic shock due to Klebsiella UTI and bacteremia/right ureteral stone s/p pressor support in ICU s/p right ureteral stent 09/11 now afebrile, wbc trending down continued on zosyn due to cehalosporin allergy seen by ID, rec 14 days of levaquin or bactrim, will start levaquin due to renal failure KEO likely ATN from sepsis if no improvement in am, will consult nephrology lasix, aldactone, losartan on hold follow renal function daily Hyperkalemia due to above resolved sclerotic lesion right iliac crest outpatient follow up chronic combined systolic and diastolic CHF last echo from 06/2024 with EF 50-55%; mild to moderate hold lasix, aldactone for sepsis/KEO paroxysmal afib hold metoprolol for sepsis/shock, resume as bp allows continue AC with eliquis- dose decreased to 2.5 due to renal failure HTN hold losartan, metoprolol DM with hyperglycemia hold metformin diabetic diet resume low dose lantus follow POCs, cover with sliding scale HLD hold statin for now, can resume upon discharge dvt ppx - eliquis (renal dosing) dispo - PT evaluation pending Requires ongoing inpatient stay for management of bacteremia on the KEO requiring specialist evaluation, safe disposition Quality Stroke Does the patient have a stroke diagnosis?: No VTE Prior VTE?: No VTE Risk Level:: Medical - moderate - high VTE Device Contraindication: N/A - Device Ordered VTE Drug Contraindication: Treatment Not Indicated
[2024-09-14 15:48] LABS: Glucose, Whole Blood 261 mg/dL (60-115)
[2024-09-14 16:44] LABS: Anion Gap 15 (12-20); Blood Urea Nitrogen 64 mg/dL (9-16); Calcium 8.4 mg/dL (8.4-10.2); Carbon Dioxide 24 mmol/L (22-29); Chloride 102 mmol/L (96-108); Creatinine Clr Calc Pharmacy 13.4; Estimated Glomerular Filt Rate 17; Potassium 4.2 mmol/L (3.3-5.1); Sodium 137 mmol/L (135-145)
[2024-09-14 20:48] LABS: Glucose, Whole Blood 187 mg/dL (60-115)
[2024-09-15] VITALS (7 sets, daily range): BP systolic 129–174; BP diastolic 60–74; PULSE 57–88; RESP 16–20; TEMP 36.1–37.1; O2SAT 94–97; BMI 33.6
[2024-09-15 07:30] LABS: Glucose, Whole Blood 181 mg/dL (60-115)
[2024-09-15] MEDS: 0.9 % Sodium Chloride Flush 3 ML SYRINGE IVFLUSH ×3 (08:24→21:17)
[2024-09-15] MEDS: Insulin Glargine,Hum.rec.anlog 100 UNIT/ML 10 ML VIAL SUBCUT (08:24)
--- NOTE | 2024-09-15 08:25 | PM.CNNEP ---
History of Present Illness Reason for Consult Consult date: 09/15/24 Chief Complaint Chief complaint: Altered Mental Status History of Present Illness Narrative: 84 y/o female with a medical history of DM, afib, pacemaker, systolic HF, aortic stenosis, mitral regurgitation, recurrent UTIs, kidney stones Presented 09/10 with septic chock/klebsiella bacteremia with source. Was in the ICU requiring vasopressor support; ureteral stenting on 09/11, medical floor 09/12. Nephrology consulted for KEO. Creatinine 0.82 in July, 06/12 on presentation, up to 3.82. Trending down, 09/14 is 2.72. lasix and aldactone held patient reports she is doing better today- sitting up in chair, reports she is still fatigued and feeling weaker than her baseline. Denies chest pain, abdominal pain, shortness of breath, urinary symptoms, reports mild LE swelling. Denies other concerns/new symptoms. Review of Systems Constitutional: Reports fatigue Cardiovascular: Denies chest pain, Denies leg edema, Denies lightheadedness and Denies dyspnea Respiratory: Denies dyspnea Gastrointestinal: Denies abdominal pain, Denies diarrhea, Denies nausea and Denies vomiting Genitourinary: Denies difficulty voiding, Denies dysuria and Denies flank pain Musculoskeletal: Denies arthralgias and Denies joint swelling Skin/Breast: Denies rash Denies tremor(s) Endocrine: Reports fatigue PMFSH Past Medical History Medical History Right nephrolithiasis Recurrent UTI (urinary tract infection) Hiatal hernia Gastritis Opioid-induced constipation Degenerative disc disease, thoracic Degenerative disc disease, lumbar [place] (hard of hearing) Wears hearing aid in both ears Uses walker Hx of cardiac pacemaker (10/06/23) Age-related osteoporosis with current pathological fracture, vertebra(e), initial encounter for fracture Compression fracture of lumbar spine, non-traumatic Nontraumatic compression fracture of thoracic vertebra Moderate aortic stenosis Diabetes mellitus Congestive heart failure Urinary tract infection Hypertension Paroxysmal atrial fibrillation Cholelithiasis Renal cyst Nephrolithiasis Pulmonary hypertension Non-rheumatic mitral regurgitation Permanent atrial fibrillation Microcytic anemia Atrophic vaginitis Osteoarthritis of knees, bilateral Essential hypertension Dyslipidemia Type 2 diabetes mellitus with diabetic neuropathy, with long-term current use of insulin Family History Family History Father Diabetes mellitus Mother Diabetes mellitus Myocardial infarction Sister Cancer Sister No problems noted. Son No problems noted. Daughter No problems noted. Surgical History Surgical History History of cardiac radiofrequency ablation (RFA) Hx of cardiac catheterization History of esophagogastroduodenoscopy (EGD) (~10/2022) History of lumbar discectomy History of lobectomy of lung History of hysterectomy History of total right knee replacement (TKR) Lumbar radiculopathy Social History Social History Household Members: Family Housing: House Are you a primary health care analyst to a significant other at home: No Do you presently have visiting nurse or other home services: No Unable to assess alcohol history related to: Unable to respond Alcohol intake: never Patient Tobacco Use Status: Former Tobacco user Tobacco use type: Cigarette e-Cigarette/Vaping Use: Never Used Advance Directives Date on File: 06/20/23 service: No Current occupational status: retired Cognitive needs: No Hearing needs: Yes Vision needs: Yes Meds Allergies Allergy/AdvReac Type Severity Reaction Status Date / Time latex (Latex) Allergy Severe RASH Verified 09/09/24 19:41 cephalexin (CEPHALEXIN) Allergy Intermediate SWELLING Verified 09/09/24 19:41 adhesive tape (Adhesive Tape) Allergy Mild CONTACT Verified 09/09/24 19:41 DERMATITIS empagliflozin (From AdvReac Severe Dizziness Verified 09/09/24 19:41 Jardiance) flecainide (From Tambocor) AdvReac Severe HEART Verified 09/09/24 19:41 RACING Biaxin AdvReac Intermediate plapitation Verified 09/09/24 19:41 s lisinopril (LISINOPRIL) AdvReac Intermediate cough, Verified 09/09/24 19:41 nausea bacitracin (From Cortisporin) AdvReac Mild EYE Verified 09/09/24 19:41 IRRITATION hydrocortisone (From AdvReac Mild EYE Verified 09/09/24 19:41 Cortisporin) IRRITATION neomycin (From Cortisporin) AdvReac Mild EYE Verified 09/09/24 19:41 IRRITATION nitrofurantoin AdvReac Loss of Verified 09/09/24 19:41 Appetite Active Medications: Current Medications Acetaminophen (Acetaminophen 325 Mg Tablet) 975 mg PO Q6H PRN PRN Reason: Back pain Last Admin: 09/15/24 05:12 Dose: 975 mg Apixaban (Apixaban 2.5 Mg Tablet) 2.5 mg PO BID [facility] Last Admin: 09/15/24 08:24 Dose: 2.5 mg Dextrose (Dextrose 50 % 25 Gm/50 Ml Syringe) 25 gm IVPUSH Q15M PRN; Protocol PRN Reason: per Hypoglycemia Standing Ord. Gabapentin (Gabapentin 300 Mg Capsule) 300 mg PO BEDTIME [facility] Last Admin: 09/14/24 21:30 Dose: 300 mg Glucose (Glucose Gel 15 Gm Gel..Gram.) 15 gm PO Q15M PRN; Protocol PRN Reason: per Hypoglycemia Standing Ord. Insulin Glargine (Insulin Glargine,Hum.Rec.Anlog 100 Unit/Ml 10 Ml Vial) 5 unit SUBCUT DAILY [facility] Last Admin: 09/15/24 08:24 Dose: 5 unit Insulin Human Lispro (Insulin Lispro 100 Unit/Ml 3 Ml Vial) 0 unit SUBCUT QIDACHS [facility]; Protocol Last Admin: 09/15/24 08:24 Dose: 2 unit Levofloxacin (Levofloxacin 500 Mg Tablet) 500 mg PO Q48H [facility] Loratadine (Loratadine 10 Mg Tablet) 10 mg PO DAILY [facility] Last Admin: 09/15/24 08:24 Dose: 10 mg Simethicone (Simethicone 80 Mg Tab.Chew) 80 mg PO QIDWMHS PRN PRN Reason: Gas Last Admin: 09/13/24 14:31 Dose: 80 mg Sodium Chloride (0.9 % Sodium Chloride Flush 3 Ml Syringe) 3 ml IVFLUSH QSHIFT [facility] Last Admin: 09/15/24 08:24 Dose: 3 ml Home Medications ?Medication ?Instructions ?Recorded ?Confirmed ?Last Taken ?Type coenzyme Q10 100 mg capsule 100 mg PO DAILY 04/28/22 09/10/24 09/09/24 History (CoQ-10) vit C 250 mg-vit E 90 mg-zinc 40 1 tab PO BID 08/30/23 09/10/24 09/09/24 History mg-copper 1 [id number] capsule (PreserVision AREDS-2) acetaminophen 650 mg 650 mg PO Q8H 05/14/24 09/10/24 09/09/24 History tablet,extended release (Tylenol Arthritis Pain) insulin glargine 100 unit/mL (3 5 unit subcut DAILY 07/29/24 09/10/24 09/09/24 History mL) subcutaneous pen (Lantus Solostar U-100 Insulin) insulin lispro 200 unit/mL (3 mL) 2 - 12 unit subcut TID PRN high 07/29/24 09/10/24 Unknown History subcutaneous pen (Humalog KwikPen sugar U-200 Insulin) loratadine 10 mg capsule (Allergy 10 mg PO DAILY 07/29/24 09/10/24 09/09/24 History Relief (loratadine)) tramadol 50 mg tablet 50 mg PO BID 09/10/24 09/10/24 09/09/24 History tramadol 50 mg tablet 50 mg PO DAILY PRN pain 09/10/24 09/10/24 Unknown History Physical Exam Vital Signs: Last Vital Signs Temp 97.1 F 09/15/24 07:23 Pulse 65 09/15/24 07:23 Resp 17 09/15/24 07:23 BP 133/63 09/15/24 07:23 Pulse Ox 96 09/15/24 07:23 O2 Del Method Room Air 09/15/24 07:23 O2 Flow Rate 2 09/15/24 03:00 BMI result Body Mass Index 33.6 Const General: no acute distress, alert and awake Resp Effort & Inspection: normal respiratory effort and able to speak in complete sentences Auscultation: clear to auscultation bilaterally Cardio Rate: regular rate Rhythm: regular rhythm Heart sounds: S1 normal heart sound present and S2 normal heart sound present GI Palpation (GI): Soft to palpation and nontender General: Yes no CVA tenderness Back/Spine/Pelvis Back: no CVA tenderness Skin Rashes: no rashes Extrem General: No edema Results Lab Results 09/13/24 05:38 09/14/24 15:40 Lab results: Chemistry 09/13/24 09/14/24 05:38 15:40 Sodium 139 137 Potassium 4.2 4.2 Carbon Dioxide 23 24 BUN 71 H 64 H Creatinine 3.33 H 2.72 H Calcium 8.7 8.4 Hematology 09/13/24 05:38 WBC 11.6 H Hgb 9.4 L Plt Count 182 Assessment and Plan (1) KEO (acute kidney injury): Status: Acute (2) Essential hypertension: Status: Acute Plan KEO likely ATN secondary to septic shock improving recommend encouraging hydration, consider starting LR IVF if patient is not able to drink adequate oral fluids avoid nephrotoxins, recommend daily renal function studies regular blood pressure checks- blood pressures acceptable, continue current antihypertensive regimen monitor I&O, daily weights Discussed with Dr Bustamante Procedures Date of Service Date of Service: 09/15/24
[2024-09-15 11:18] LABS: Glucose, Whole Blood 310 mg/dL (60-115)
[2024-09-15 11:43] LABS: Anion Gap 13 (12-20); Blood Urea Nitrogen 58 mg/dL (9-16); Calcium 8.3 mg/dL (8.4-10.2); Carbon Dioxide 25 mmol/L (22-29); Chloride 103 mmol/L (96-108); Creatinine Clr Calc Pharmacy 15.5; Estimated Glomerular Filt Rate 19; Potassium 4.1 mmol/L (3.3-5.1); Sodium 137 mmol/L (135-145)
--- NOTE | 2024-09-15 12:39 | P.PNIM_ITS ---
Subjective Subjective Date of Service: 09/15/24 Interval History: Seen and examined this morning Follow-up bacteremia, shock, keo Doing well, no overnight events Denies shortness Constitutional Constitutional: Denies chills and Denies fever(s) Physical Exam 2 Vital Signs: Vital Signs: Last Vital Signs Temp 97.0 F 09/15/24 11:20 Pulse 81 09/15/24 11:20 Resp 16 09/15/24 11:20 BP 151/73 H 09/15/24 11:20 Pulse Ox 95 09/15/24 11:20 O2 Del Method Room Air 09/15/24 11:20 O2 Flow Rate 2 09/15/24 03:00 BMI result Body Mass Index 33.6 Const: Other: frail elderly female resting in bed comfortably General: awake Nutritional Appearance: average body habitus O rientation/consciousness: patient oriented x3 Resp: Effort & Inspection: normal respiratory effort, able to speak in complete sentences, no respiratory distress and no use of accessory muscles A uscultation: clear to auscultation bilaterally Cardio: Rate: regular rate GI: Inspection: No distended Palpation (GI): Soft to palpation and nontender Neuro: General: patient oriented x3, moves all extremities and CN's II-XI intact bilaterally Extrem: General: No pedal edema Objective Data Active Medications Acetaminophen (Acetaminophen 325 Mg Tablet) 975 mg PO Q6H PRN PRN Reason: Back pain Last Admin: 09/15/24 05:12 Dose: 975 mg Documented By: CANDIDA Apixaban (Apixaban 2.5 Mg Tablet) 2.5 mg PO BID [facility] Last Admin: 09/15/24 08:24 Dose: 2.5 mg Documented By: TERESA Dextrose (Dextrose 50 % 25 Gm/50 Ml Syringe) 25 gm IVPUSH Q15M PRN; Protocol PRN Reason: per Hypoglycemia Standing Ord. Gabapentin (Gabapentin 300 Mg Capsule) 300 mg PO BEDTIME [facility] Last Admin: 09/14/24 21:30 Dose: 300 mg Documented By: CANDIDA Glucose (Glucose Gel 15 Gm Gel..Gram.) 15 gm PO Q15M PRN; Protocol PRN Reason: per Hypoglycemia Standing Ord. Insulin Glargine (Insulin Glargine,Hum.Rec.Anlog 100 Unit/Ml 10 Ml Vial) 5 unit SUBCUT DAILY [facility] Last Admin: 09/15/24 08:24 Dose: 5 unit Documented By: TERESA Insulin Human Lispro (Insulin Lispro 100 Unit/Ml 3 Ml Vial) 0 unit SUBCUT QIDACHS [facility]; Protocol Last Admin: 09/15/24 11:40 Dose: 8 unit Documented By: TERESA Levofloxacin (Levofloxacin 500 Mg Tablet) 500 mg PO Q48H [facility] Loratadine (Loratadine 10 Mg Tablet) 10 mg PO DAILY [facility] Last Admin: 09/15/24 08:24 Dose: 10 mg Documented By: TERESA Simethicone (Simethicone 80 Mg Tab.Chew) 80 mg PO QIDWMHS PRN PRN Reason: Gas Last Admin: 09/13/24 14:31 Dose: 80 mg Documented By: LUIS Sodium Chloride (0.9 % Sodium Chloride Flush 3 Ml Syringe) 3 ml IVFLUSH QSHIFT [facility] Last Admin: 09/15/24 08:24 Dose: 3 ml Documented By: TERESA Labs 09/13/24 05:38 09/15/24 10:52 Labs: Laboratory Results - last 24 hr 09/14/24 09/14/24 09/14/24 15:40 15:42 20:44 Anion Gap 15 Estim Creat Clear Calc 13.4 Estimated GFR 17 POC Glucose 261 H 187 H Random Glucose 241 H Calcium 8.4 09/15/24 09/15/24 09/15/24 07:26 10:52 11:15 Anion Gap 13 Estim Creat Clear Calc 15.5 Estimated GFR 19 POC Glucose 181 H 310 H Random Glucose 343 H Calcium 8.3 L Assessment and Plan (1) KEO (acute kidney injury): Status: Acute Plan This is an 84-year-old female with history of diabetes mellitus, combined diastolic and systolic heart failure, AFib status post pacemaker, aortic stenosis, mitral regurgitation, recurrent UTIs with nephrolithiasis admitted on 09/10/2024 with septic shock and Klebsiella bacteremia with source requiring pressor support. Patient started on empiric antibiotics and admitted to the intensive care unit. Status post right-sided ureteral stenting on 09/11/2024, weaned off pressors and downgraded to the medical floor 09/12 septic shock due to Klebsiella UTI and bacteremia/right ureteral stone s/p pressor support in ICU s/p right ureteral stent 09/11 - we will need outpatient follow-up with Urology for stent now afebrile, wbc trending down Initially treated with IV zosyn due to cehalosporin allergy - seen by ID, rec 14 days of levaquin or bactrim, will start levaquin due to renal failure KEO likely ATN from sepsis lasix, aldactone, losartan on hold Renal function beginning to trend down, follow day Nephrology following Hyperkalemia due to above resolved sclerotic lesion right iliac crest outpatient follow up chronic combined systolic and diastolic CHF last echo from 06/2024 with EF 50-55%; mild to moderate hold lasix, aldactone for sepsis/KEO paroxysmal afib hold metoprolol for sepsis/shock, resume as bp allows continue AC with eliquis- dose decreased to 2.5 due to renal failure - transition back to full dosing when renal function improves HTN hold losartan, resume metoprolol DM with hyperglycemia hold metformin diabetic diet resume low dose lantus follow POCs, cover with sliding scale HLD hold statin for now, can resume upon discharge dvt ppx - eliquis (renal dosing) dispo - PT evaluation pending Requires ongoing inpatient stay for management of bacteremia on the KEO requiring specialist evaluation, safe disposition Quality Stroke Does the patient have a stroke diagnosis?: No VTE Prior VTE?: No VTE Risk Level:: Medical - moderate - high VTE Device Contraindication: N/A - Device Ordered VTE Drug Contraindication: Treatment Not Indicated
--- NOTE | 2024-09-15 13:55 | MHC.SL.SWA ---
Speech Pathologist Impression: Oropharyngeal swallow WNL. Risk of Aspiration Due to: Dysphasia Diet Status: Liquid Consistency and Strategies for Safe Swallow: Liquid Intake Recommendation: Thin Liquid Intake Strategies: Small Sips Solid Food Consistency: Dietary Recommendations: Regular Additional Modifications to Solid Foods: Oral Medication Intake: Whole with Puree Please contact the pharmacy regarding appropriate crushable or liquid drug formulations that are available whenever modified delivery is recommended. Compensatory Strategies and Precautions to be Taken for Safe Swallow: Sitting Upright (90 deg) Small Bites and Sips Alternate Liquids/Solids Rate of Ingestion Change Supervision While Eating and Drinking for Safe Swallow: Intermittent Supervision Foods to Avoid: Hard, tough solids Swallowing Recommended Treatments: Compens. Strategy Educat. Recommendation for Speech: NA:Typical Evaluation Comment: Pt seen for dysphagia treatment, daughter at bedside. Pt tolerating diet without concerns. PHYSICIAN SCIENTIST reviewed recommendations and diet, pt and daughter in agreement. Pt tolerating meds in pudding. Pt tolerating thins by cup or straw sip with mildly delayed anterior to posterior propulsion of fluid. Pt expressed that she has her own way of doing things. Pt does not endorse difficulty swallowing in the past other than reflux. Pt's daughter providing cues at home to improve pt eating habits. PHYSICIAN SCIENTIST available to consult with pt as indicated. No further PHYSICIAN SCIENTIST tx needed at this time. Frequency/Duration: Date Range for Service Req: Timeline to reassess: Observation Nurse Clinican/Clinical Fellow: No Supervisory Statement: I have reviewed and agree with the student/clinical fellow's documentation: N/A Speech Language Pathologist: Eugenia Higginbotham M.S., CCC-PHYSICIAN SCIENTIST
--- NOTE | 2024-09-15 14:51 | MHC.CM.PN ---
Per rounds, pt. not ready to DC, awaiting renal input. DCP is [facility], CM met with pt. and her dtr to ask which [facility], preference is [facility] in [place]. Referrals out.
[2024-09-15 16:16] LABS: Glucose, Whole Blood 284 mg/dL (60-115)
[2024-09-15 20:42] LABS: Glucose, Whole Blood 235 mg/dL (60-115)
[2024-09-16 03:12] VITALS: BP 144/65; PULSE 65; RESP 18; TEMP 36.2; O2SAT 95
[2024-09-16 06:00] VITALS: BMI 33.7
[2024-09-16 07:08] LABS: Glucose, Whole Blood 145 mg/dL (60-115)
[2024-09-16 07:26] VITALS: BP 163/72; PULSE 68; RESP 20; TEMP 36.3; O2SAT 99
--- NOTE | 2024-09-16 08:35 | P.PNNP_ITS ---
Subjective Subjective Date of Service: 09/16/24 Interval history: Following for KEO in setting of bacteremia, shock patient states she is doing better no new symptoms/concerns Physical Exam 2 Vital Signs: Vital Signs: Last Vital Signs Temp 97.1 F 09/16/24 10:59 Pulse 70 09/16/24 10:59 Resp 18 09/16/24 10:59 BP 133/61 09/16/24 10:59 Pulse Ox 93 09/16/24 10:59 O2 Del Method Room Air 09/16/24 10:59 O2 Flow Rate 2 09/16/24 07:26 BMI result Body Mass Index 33.7 Const: General: no acute distress, alert and awake Resp: Effort & Inspection: normal respiratory effort and able to speak in complete sentences Auscultation: clear to auscultation bilaterally Cardio: Rate: regular rate Rhythm: regular rhythm Heart sounds: S1 normal heart sound present and S2 normal heart sound present GI: Palpation (GI): Soft to palpation and nontender : General: Yes no CVA tenderness Back/Spine/Pelvis: Back: no CVA tenderness Skin: Rashes: no rashes Extrem: General: No edema Objective Data Labs 09/13/24 05:38 09/16/24 09:02 Labs: Laboratory Results - last 24 hr 09/15/24 09/15/24 09/15/24 10:52 11:15 16:12 Sodium 137 Potassium 4.1 Chloride 103 Carbon Dioxide 25 Anion Gap 13 BUN 58 H Creatinine 2.40 H Estim Creat Clear Calc 15.5 Estimated GFR 19 POC Glucose 310 H 284 H Random Glucose 343 H Calcium 8.3 L 09/15/24 09/16/24 09/16/24 20:25 06:55 09:02 Sodium 138 Potassium 4.0 Chloride 105 Carbon Dioxide 24 Anion Gap 13 BUN 46 H Creatinine 2.02 H Estim Creat Clear Calc 18.4 Estimated GFR 23 POC Glucose 235 H 145 H Random Glucose 257 H Calcium 8.5 09/16/24 10:47 Sodium Potassium Chloride Carbon Dioxide Anion Gap BUN Creatinine Estim Creat Clear Calc Estimated GFR POC Glucose 297 H Random Glucose Calcium Microbiology Microbiology Results: Microbiology 09/09/24 20:29 Blood - Venous Blood Culture - Final Klebsiella pneumoniae 09/09/24 19:59 Blood - Venous Blood Culture - Final Klebsiella pneumoniae 09/09/24 Unknown Urine clean catch - Clean Catch Midstream Urine Culture - Final Klebsiella pneumoniae Procedures Date of Service Date of Service: 09/16/24 Assessment & Plan Assessment and plan (1) KEO (acute kidney injury): Status: Acute Plan KEO likely ATN secondary to septic shock improving, creatinine trending down, today 2.02 (yesterday 2.40). Anticipate gradual improvement with time recommend encouraging hydration, adequate nutritional intake avoid nephrotoxins, recommend daily renal function studies regular blood pressure checks- blood pressures acceptable, continue current antihypertensive regimen monitor I&O, daily weights Will arrange for outpatient follow up post discharge Discussed with Dr Bustamante Time Spent With Patient Time: Total time managing care of this patient today ____ minutes. Progress Note: Quality Stroke Does the patient have a stroke diagnosis?: No
[2024-09-16] MEDS: Metoprolol Succinate ER 25 MG TAB.ER.24H PO (08:57)
[2024-09-16] MEDS: Insulin Glargine,Hum.rec.anlog 100 UNIT/ML 10 ML VIAL SUBCUT (08:57)
[2024-09-16] MEDS: 0.9 % Sodium Chloride Flush 3 ML SYRINGE IVFLUSH (08:57)
[2024-09-16 10:09] LABS: Anion Gap 13 (12-20); Blood Urea Nitrogen 46 mg/dL (9-16); Calcium 8.5 mg/dL (8.4-10.2); Carbon Dioxide 24 mmol/L (22-29); Chloride 105 mmol/L (96-108); Creatinine Clr Calc Pharmacy 18.4; Estimated Glomerular Filt Rate 23; Potassium 4.0 mmol/L (3.3-5.1); Sodium 138 mmol/L (135-145)
[2024-09-16 10:56] LABS: Glucose, Whole Blood 297 mg/dL (60-115)
[2024-09-16 10:59] VITALS: BP 133/61; PULSE 70; RESP 18; TEMP 36.2; O2SAT 93
--- NOTE | 2024-09-16 11:44 | PM.DS ---
DS: Providers Provider Date of Service: 09/16/24 Date of admission: 09/09/24 22:21 Date of discharge: 09/16/24 Primary care physician: Patricia Nicole MD Consults: 09/10/24 08:55 Consult to Urology Routine Consulting Provider: [facility] Reason for consultation: Right hydroureternephrosis with septic shock Has provider been notified: No 09/12/24 15:18 Consult to Infectious Diseases Routine Consulting Provider: [facility] Reason for consultation: uti, bacteremia; abx allergies Has provider been notified: No 09/13/24 12:27 Consult to Nephrology Routine Consulting Provider: [facility] Reason for consultation: KEO Has provider been notified: No DS: Diagnosis Discharge Diagnosis (1) KEO (acute kidney injury): Status: Acute DS: Summary Hospital Course Hospital Course: admission hpi Chief Complaint: Altered mental status Ms. Kraft is a 84-year-old female with history of diabetes, congestive heart failure s/p? pacemaker, aortic stenosis, mitral regurgitation, hypertension, paroxysmal atrial fibrillation on anticoagulation, pulmonary hypertension, dyslipidemia, anemia, cholelithiasis, s/p kyphoplasty Jan 2024, recurrent UTI mostly recently treated about 3 weeks ago with ciprofloxacin, who presented to the emergency room from home with her daughter for complaint of generalized weakness, confusion, nausea and vomiting, On arrival to the emergency room, temp? was 102.2,? blood pressure? 108/47, heart rate 77, O2 sat 91% on room air.? Laboratory data significant for WBC 17.3, hemoglobin 10.2, hematocrit 32.6, sodium 134, potassium 5.8, anion gap 21, BUN 57, creatinine 3.27, glucose 203, initial lactic acid 5.7. Urinalysis indicative of UTI. Imaging: ? Chest x-ray showed cardiomegaly, mild diffuse interstitial prominence bilaterally, tiny bilateral pleural effusions likely due to fluid overload/CHF. CT abdomen/pelvis:?pending ED course:? The patient received 2 bags of albumin, acetaminophen 975 mg, Zosyn 4.5 g. She was started on Levophed for pressor support. Hospital course This is an 84-year-old female with history of diabetes mellitus, combined diastolic and systolic heart failure, AFib status post pacemaker, aortic stenosis, mitral regurgitation, recurrent UTIs with nephrolithiasis admitted on 09/10/2024 with septic shock and Klebsiella bacteremia with source requiring pressor support. Patient started on empiric antibiotics and admitted to the intensive care unit. Status post right-sided ureteral stenting on 09/11/2024, weaned off pressors and downgraded to the medical floor 09/12 and is recoverying well. She is to complete 14 days of antibiotics septic shock due to Klebsiella UTI and bacteremia/right ureteral stone, was on pressors in ICU, now hemodynamically stable. She had right ureteral stent 09/11 - we will need outpatient follow-up with Urology for stent removal. She is now afebrile, wbc trending down Initially treated with IV zosyn due to cehalosporin allergy - seen by ID, rec 14 days of levaquin (sttarted on 09/14) or bactrim. Presently on levaquin 500 q 48 hours, last dose September 28. KEO likely ATN from sepsis lasix, aldactone, losartan on hold Renal function beginning to trend down, follow day Nephrology following, outpatient follow up Hyperkalemia due to above resolved sclerotic lesion right iliac crest outpatient follow up chronic combined systolic and diastolic CHF last echo from 06/2024 with EF 50-55%; mild to moderate hold lasix, aldactone for sepsis/KEO paroxysmal afib hold metoprolol for sepsis/shock, resume as bp allows continue AC with eliquis- dose decreased to 2.5 due to renal failure - transition back to full dosing when renal function improves HTN hold losartan, resume metoprolol DM with hyperglycemia hold metformin diabetic diet resume low dose lantus follow POCs, cover with sliding scale HLD hold statin for now, can resume upon discharge dvt ppx - eliquis (renal dosing) dispo - PT evaluation pending Requires ongoing inpatient stay for management of bacteremia on the KEO requiring specialist evaluation, safe disposition Time Attestation Discharge Coordination Time (in mins): 40 Quality: Safe Use of Opioids Does Pt have an Active Cancer Diagnosis on the Problem List?: No Quality: Stroke Does the patient have a stroke diagnosis?: No Physical Exam Vital Signs: Vital Signs: Last Vital Signs Temp 97.1 F 09/16/24 10:59 Pulse 70 09/16/24 10:59 Resp 18 09/16/24 10:59 BP 133/61 09/16/24 10:59 Pulse Ox 93 09/16/24 10:59 O2 Del Method Room Air 09/16/24 10:59 O2 Flow Rate 2 09/16/24 07:26 BMI result Body Mass Index 33.7 DS: Data Data Completed and Pending Completed studies during hospitalization [Text1]: Procedures Assistance with Respiratory Ventilation, Less than 24 Consecutive Hours, Continuous Positive Airway Pressure (08/30/23) Labs on day of discharge: Laboratory Results - last 24 hr 09/15/24 09/15/24 09/16/24 16:12 20:25 06:55 Sodium Potassium Chloride Carbon Dioxide Anion Gap BUN Creatinine Estim Creat Clear Calc Estimated GFR POC Glucose 284 H 235 H 145 H Random Glucose Calcium 09/16/24 09/16/24 09:02 10:47 Sodium 138 Potassium 4.0 Chloride 105 Carbon Dioxide 24 Anion Gap 13 BUN 46 H Creatinine 2.02 H Estim Creat Clear Calc 18.4 Estimated GFR 23 POC Glucose 297 H Random Glucose 257 H Calcium 8.5 Discharge Plan Discharge Anticipated Discharge Date/Time: 09/16/24 11:43 Patient Disposition: Xfer [facility] Discharge Diagnosis: Sepsis, bacteremia Referrals: Douglas Bustamante MD [Physician, Nephrology] - 1 Week Hernando Solis MD [Physician, Urology] - 2 Weeks Patricia Nicole MD [Primary Care Provider, Internal Medicine] - 1 Week Discharge Medications: New Eliquis 2.5 mg Tablet 2.5 mg PO BID Qty: 180 0RF levofloxacin 500 mg Tablet 500 mg PO Q48H Qty: 5 0RF Continued metoprolol succinate 25 mg tablet extended release 24 hr 25 mg PO DAILY Qty: 90 3RF rosuvastatin 5 mg tablet 5 mg PO MOWEFR 90 Days Qty: 39 2RF gabapentin 100 mg capsule 300 mg PO BEDTIME Qty: 90 1RF tramadol 50 mg tablet 50 mg PO BID tramadol 50 mg tablet 50 mg PO DAILY PRN (Reason: pain) PreserVision AREDS-2 250-90-40-1 mg Capsule 1 tab PO BID coenzyme Q10 [CoQ-10] 100 mg capsule 100 mg PO DAILY Humalog KwikPen Insulin 200 unit/mL (3 mL) insulin pen 2 - 12 unit subcut TID PRN (Reason: high sugar) Rx Instructions: 2 - 12 units subcutaneously; At meals and before bedtime 60-124 = 0 units 125-150=2 units 151-200=4 units 201-250=6 units 251-300=8 units 301-350=10 units 351-400=12 units insulin glargine [Lantus Solostar U-100 Insulin] 100 unit/mL (3 mL) insulin pen 5 unit subcut DAILY Allergy Relief (loratadine) 10 mg capsule 10 mg PO DAILY acetaminophen [Tylenol Arthritis Pain] 650 mg tablet extended release 650 mg PO Q8H Discontinued Eliquis 5 mg tablet 5 mg PO BID Qty: 180 3RF losartan 50 mg tablet 50 mg PO DAILY Qty: 90 3RF furosemide [Lasix] 20 mg tablet 20 mg PO DAILY Qty: 90 0RF spironolactone 25 mg tablet 25 mg PO DAILY Qty: 90 1RF metformin 1,000 mg tablet 1,000 mg PO BID 90 Days Qty: 180 1RF No Action (DME) pen needle, diabetic 31 gauge x 3/16 needle See Rx Instructions .Route Qty: 360 1RF Rx Instructions: As directed QID ac and hs Discharge Orders: Discharge Order (Routine); Ordered 09/16/24 Ordered By: Esteban Harmon Diet: Advance to usual diet Activity on Discharge: As tolerated Stand Alone Forms: Patient Portal Discharge page Print Language: Romanian Care Plan Goals: recovery from sepsis, bacteremia Health Concerns: sepsis bacteremia UTI KEO Plan of Treatment: take levaquin as recommended follow up with your Doctor in a week Follow up with kidney doctor Follow up with Urulogy Assessment: see above Discharge Date/Time: 09/16/24 14:42
== END 2024-09-16 14:42 | disposition skilled nursing facility (03) | DRG 853 ==
LOC: HO.ED 22:29 → HO.EDOVER 22:33 → HO.ICU 22:36 → HO.IMC 09-11 17:47 → HO.ICU 09-11 19:49 → HO.IMC 09-12 09:54
PROVIDERS: Internal Medicine Pulmonary Disease; Physician Assistant Medical; Urology; Admitting Provider Nurse Practitioner Family; Emergency Provider Emergency Medicine; PCP Internal Medicine; Visit Provider Internal Medicine
PROC: 0T768DZ Dilation of Right Ureter with Intraluminal Device, Via Natural or Artificial Opening Endoscopic (ICD-10-PCS; principal; 2024-09-11 13:00)
DX: A41.9 Sepsis, unspecified organism (principal); N17.0 Acute kidney failure with tubular necrosis; R65.21 Severe sepsis with septic shock; N13.6 Pyonephrosis; I50.42 Chronic combined systolic (congestive) and diastolic (congestive) heart failure; Z16.11 Resistance to penicillins; I48.0 Paroxysmal atrial fibrillation; I11.0 Hypertensive heart disease with heart failure; I35.0 Nonrheumatic aortic (valve) stenosis; E78.5 Hyperlipidemia, unspecified; B96.1 Klebsiella pneumoniae [K. pneumoniae] as the cause of diseases classified elsewhere; E11.65 Type 2 diabetes mellitus with hyperglycemia; M89.9 Disorder of bone, unspecified; E87.5 Hyperkalemia; Z20.822 Contact with and (suspected) exposure to COVID-19; Z95.0 Presence of cardiac pacemaker; Z87.440 Personal history of urinary (tract) infections; Z79.4 Long term (current) use of insulin; Z79.01 Long term (current) use of anticoagulants; Z79.899 Other long term (current) drug therapy
CPT/HCPCS: 0241U; 36415; 71046; 74176; 80048; 80053; 81001; 82040; 82803; 82947; 83605; 83735; 84100; 85025; 85610; 87040; 87077; 87086; 87088; 87186; 87205; 92526; 92610; 93005; 97162; 99285; C1758; C1769; C2617; J0131; J2470; J2543; J2704; J3010; J7120; P9047; Q9967

== ENCOUNTER → 2024-09-09 19:55 | Outpatient (BNV) | payer MEDICARE, SELFPAY | PROVIDERS: Admitting Provider Nurse Practitioner Family; Emergency Provider Emergency Medicine; PCP Internal Medicine; Visit Provider Internal Medicine | DX: R94.31 Abnormal electrocardiogram [ECG] [EKG] (principal); R53.1 Weakness | CPT/HCPCS: 93010 ==

== ENCOUNTER 2024-09-09 22:21 | Outpatient (BNV) | payer MEDICARE, SELFPAY | END 2024-09-14 23:52 | PROVIDERS: Admitting Provider Nurse Practitioner Family; Emergency Provider Emergency Medicine; PCP Internal Medicine; Visit Provider Internal Medicine Cardiovascular Disease | DX: I48.91 Unspecified atrial fibrillation (principal); I49.3 Ventricular premature depolarization; I44.7 Left bundle-branch block, unspecified | CPT/HCPCS: 93010 ==

== ENCOUNTER 2024-09-09 22:21 | Outpatient (BNV) | payer MEDICARE, SELFPAY | END 2024-09-10 04:13 | PROVIDERS: Admitting Provider Nurse Practitioner Family; Emergency Provider Emergency Medicine; PCP Internal Medicine; Visit Provider Internal Medicine | DX: I48.91 Unspecified atrial fibrillation (principal); I45.4 Nonspecific intraventricular block | CPT/HCPCS: 93010 ==

== ENCOUNTER → 2024-09-09 22:21 | Outpatient (BNV) | payer MEDICARE, SELFPAY | PROVIDERS: Admitting Provider Nurse Practitioner Family; Emergency Provider Emergency Medicine; PCP Internal Medicine; Visit Provider Urology | DX: N20.1 Calculus of ureter (principal) | CPT/HCPCS: 52332; 74420; 99222; 99232 ==

== ENCOUNTER → 2024-09-09 22:21 | Outpatient (BNV) | payer MEDICARE, SELFPAY | PROVIDERS: Admitting Provider Nurse Practitioner Family; Emergency Provider Emergency Medicine; PCP Internal Medicine; Visit Provider Internal Medicine | DX: N39.0 Urinary tract infection, site not specified (principal) | CPT/HCPCS: 99232 ==

== ENCOUNTER → 2024-09-09 22:21 | Outpatient (BNV) | payer MEDICARE, SELFPAY | PROVIDERS: Admitting Provider Nurse Practitioner Family; Emergency Provider Emergency Medicine; PCP Internal Medicine; Visit Provider Physician Assistant Medical | DX: N17.9 Acute kidney failure, unspecified (principal); R78.81 Bacteremia | CPT/HCPCS: 99233; 99499 ==

== ENCOUNTER → 2024-09-09 22:21 | Outpatient (BNV) | payer MEDICARE, SELFPAY | PROVIDERS: Admitting Provider Nurse Practitioner Family; Emergency Provider Emergency Medicine; PCP Internal Medicine; Visit Provider Internal Medicine Pulmonary Disease | DX: I50.42 Chronic combined systolic (congestive) and diastolic (congestive) heart failure (principal); I35.0 Nonrheumatic aortic (valve) stenosis; I36.1 Nonrheumatic tricuspid (valve) insufficiency; Z95.0 Presence of cardiac pacemaker; E11.40 Type 2 diabetes mellitus with diabetic neuropathy, unspecified; Z79.4 Long term (current) use of insulin; N17.9 Acute kidney failure, unspecified; N20.0 Calculus of kidney; R78.81 Bacteremia; B96.1 Klebsiella pneumoniae [K. pneumoniae] as the cause of diseases classified elsewhere | CPT/HCPCS: 99233 ==

== ENCOUNTER → 2024-09-09 22:21 | Outpatient (BNV) | payer MEDICARE, SELFPAY | PROVIDERS: Admitting Provider Nurse Practitioner Family; Emergency Provider Emergency Medicine; PCP Internal Medicine; Visit Provider Nurse Practitioner Family | DX: N17.9 Acute kidney failure, unspecified (principal) | CPT/HCPCS: 99222; 99231 ==

== ENCOUNTER → 2024-09-09 22:21 | Outpatient (BNV) | payer MEDICARE, SELFPAY | PROVIDERS: Admitting Provider Nurse Practitioner Family; Emergency Provider Emergency Medicine; PCP Internal Medicine; Visit Provider Nurse Practitioner Family | DX: A41.9 Sepsis, unspecified organism (principal); R65.21 Severe sepsis with septic shock; N39.0 Urinary tract infection, site not specified; N17.9 Acute kidney failure, unspecified; Z86.79 Personal history of other diseases of the circulatory system; Z95.0 Presence of cardiac pacemaker; Z79.01 Long term (current) use of anticoagulants; E11.40 Type 2 diabetes mellitus with diabetic neuropathy, unspecified; Z79.4 Long term (current) use of insulin; D50.9 Iron deficiency anemia, unspecified; R53.1 Weakness | CPT/HCPCS: 99223; 99499 ==

== ENCOUNTER 2024-10-06 16:01 | Outpatient (AMB) | payer MEDICARE, SELFPAY ==
--- NOTE | 2024-10-06 16:02 | MHC.OFFVIS ---
Intake Visit Reasons: Keo/stent in place Intake Note: Patient presents today via telehealth for KEO/stent in place Urology Medication:None Blood Thinner:Apixaban Antibiotic Allergies:None Accounts Receivable Analyst Required: No Accompanied by: Self / Same As Patient Allergies latex (Latex) Allergy (Severe, Verified 10/06/24 16:03) RASH cephalexin (CEPHALEXIN) Allergy (Intermediate, Verified 10/06/24 16:03) SWELLING adhesive tape (Adhesive Tape) Allergy (Mild, Verified 10/06/24 16:03) CONTACT DERMATITIS empagliflozin (From Jardiance) Adverse Reaction (Severe, Verified 10/06/24 16:03) Dizziness flecainide (From Tambocor) Adverse Reaction (Severe, Verified 10/06/24 16:03) HEART RACING Biaxin Adverse Reaction (Intermediate, Verified 10/06/24 16:03) plapitations lisinopril (LISINOPRIL) Adverse Reaction (Intermediate, Verified 10/06/24 16:03) cough, nausea bacitracin (From Cortisporin) Adverse Reaction (Mild, Verified 10/06/24 16:03) EYE IRRITATION hydrocortisone (From Cortisporin) Adverse Reaction (Mild, Verified 10/06/24 16:03) EYE IRRITATION neomycin (From Cortisporin) Adverse Reaction (Mild, Verified 10/06/24 16:03) EYE IRRITATION nitrofurantoin Adverse Reaction (Verified 10/06/24 16:03) Loss of Appetite Medication List - Last Reconciled 10/06/24 by Fili Maloney MD acetaminophen ER (Tylenol Arthritis Pain) 650 mg PO Q8H apixaban (Eliquis) 2.5 mg PO BID coenzyme Q10 (CoQ-10) 100 mg PO DAILY gabapentin 300 mg (3 x 100 mg) PO BEDTIME insulin glargine (Lantus Solostar U-100 Insulin) 5 units subcut DAILY insulin lispro (Humalog KwikPen U-200 Insulin) 2 - 12 units subcut TID PRN loratadine (Allergy Relief (loratadine)) 10 mg PO DAILY metoprolol succinate ER 25 mg PO DAILY pantoprazole 40 mg PO DAILY pen needle, diabetic As directed QID ac and hs rosuvastatin 5 mg PO MOWEFR 90 days tramadol 50 mg PO BID tramadol 50 mg PO DAILY PRN vit C,Z-Wz-oquww-lutein-zeaxan 250-90-40-1 mg (PreserVision AREDS-2) 1 tab PO BID HPI Comments Details: 10/06/24--Aminah is an 84-year-old female with history of kidney stones she was in the hospital in August for UTI and acute kidney injury on 09/10/2024 a CAT scan was done as an inpatient noting a 5 mm right distal obstructing stone also an 11 mm right kidney stone Dr. Solis placed a right ureteral stent on 09/11/2024. History of Present Illness - The patient is an 84-year-old female presenting with kidney stones. - She has a history of kidney stones, with a recent 5 mm obstructing distal stone and an 11 mm stone in the right kidney. - In August, she was hospitalized for a urinary tract infection and acute kidney injury, due to 5 mm obstructing distal stone, CT also noted an 11 mm nonobstructing stone in the right kidney during which a stent was placed by Dr. Solis on 09/11/24 to manage the obstructing stone. - The patient's son states she the stent has not been removed yet, and he thinks the patient passed the ureteral stone in the hospital, he states the nurse collected it and he took a picture. Results - CT scan on 09/10/24 showed a 5 mm obstructing distal stone and an 11 mm stone in the right kidney. Plan - Plan to address the stone in the ureter and remove the stent as an outpatient procedure. OR If the stone has passed, the stent can be removed in the office with local lidocaine jelly. - Follow-up will be arranged 07/29/24--Aminah is here with her daughter she has been seen in our office in the past due to kidney stones. Past medical history significant for degenerative disc disease, diabetes, congestive heart failure. She presents because of persistent UTI symptoms of urgency frequency. She states that she was seen by her PCP in June and the furosemide was discontinued which has helped to some degree with her urinary symptoms. Urinalysis today is notable for leukocytes and blood. I reviewed prior imagin08/30/23--CTAP with IV contrast--KIDNEYS AND URETERS: Bilateral hypodense renal foci demonstrating fluid attenuation, statistically representing cysts, not requiring follow-up. Right-sided nephrolithiasis versus vascular calcification measuring 1.1 cm without hydronephrosis. No left-sided nephrolithiasis or hydronephrosis. The patient states that she wears a panty liner and generally is able to get to the bathroom but will occasionally have some leakage prior to getting to the bathroom to urinate. I have discussed further evaluation with CT urogram I will send urine for culture and urine FISH. Discussion today included trial of Gemtesa/anticholinergic at this time the patient is reluctant to start a new medication will hold on medication therapy for now and have her follow-up after CT urogram for office cystoscopy. 09/04/22-- Aminah is an 82-year-old female who presents to the office for 6-months follow-up for renal calculi. The patient denies hematuria or any other urinary symptoms. She was seen last by LUCERO Godinez on 03/06/22---- Aminah is an 81-year-old female who is here for follow-up. She has history of kidney stones. 09/04/22--Evaluation today-- Blood: negative, leukocytes: negative. Renal US-- 02/15/22-- nonobstructive calculi in the mid pole of the right kidney. Plan: KUB X-ray was ordered to be done today. Follow-up after a year or sooner if needed. Renal US prior was ordered. 03/06/11--She is here in follow-up post renal ultrasound. I have discussed ultrasound results with the patient. In review imaging she has a stable 8 mm right kidney stone. The patient states in the past she did have shockwave lithotripsy. She is not interested in any procedures at this time as the stone is not bothering her. The patient states that she fell about 3 months ago and has been having chronic lower back pain since, she is taking 1 Tylenol about every 6 hours. Therapeutic plan--- fluids encouraged, surveillance imaging. KUB in 6 months. Imagin02/15/22- renal us - right kidney stone stable - no hydro 12/13/21- CTKUB - right kidney 8 mm stone - 07/07 CT scan 8 mm proximal ureteric stone, 8 mm upper pole right stone - 08/06 renal ultrasound with 8 mm upper pole stone Intervention - 06/2020 ESWL right side [facility] Medical History History of CHF (congestive heart failure) Pacemaker Chronic combined systolic and diastolic CHF (congestive heart failure) Right nephrolithiasis Recurrent UTI (urinary tract infection) Hiatal hernia Gastritis Opioid-induced constipation Degenerative disc disease, thoracic Degenerative disc disease, lumbar [place] (hard of hearing) Wears hearing aid in both ears Uses walker Hx of cardiac pacemaker (10/06/23) Age-related osteoporosis with current pathological fracture, vertebra(e), initial encounter for fracture Compression fracture of lumbar spine, non-traumatic Nontraumatic compression fracture of thoracic vertebra Moderate aortic stenosis Diabetes mellitus Congestive heart failure Urinary tract infection Hypertension Paroxysmal atrial fibrillation Cholelithiasis Renal cyst Nephrolithiasis Pulmonary hypertension Non-rheumatic mitral regurgitation Permanent atrial fibrillation Microcytic anemia Atrophic vaginitis Osteoarthritis of knees, bilateral Essential hypertension Dyslipidemia Type 2 diabetes mellitus with diabetic neuropathy, with long-term current use of insulin Surgical History History of cardiac radiofrequency ablation (RFA) Hx of cardiac catheterization History of esophagogastroduodenoscopy (EGD) (~10/2022) History of lumbar discectomy History of lobectomy of lung History of hysterectomy History of total right knee replacement (TKR) Lumbar radiculopathy Family History Father Diabetes mellitus Mother Diabetes mellitus Myocardial infarction Sister Cancer Sister No problems noted. Son No problems noted. Daughter No problems noted. Social History Household Members: Family Housing: House Are you a primary care asst to a significant other at home: No Do you presently have visiting nurse or other home services: No Unable to assess alcohol history related to: Unable to respond Alcohol intake: never Patient Tobacco Use Status: Former Tobacco user Tobacco use type: Cigarette e-Cigarette/Vaping Use: Never Used Advance Directives Date on File: 06/20/23 service: No Current occupational status: retired Cognitive needs: No Hearing needs: Yes Vision needs: Yes Review of Systems Const All systems reviewed & are unremarkable except as noted in HPI and below Reports no additional complaints Eyes Reports no additional complaints ENT Reports no additional complaints Card Reports no additional complaints Resp Reports no additional complaints GI Reports no additional complaints Reports as per HPI Musc Reports no additional complaints Skin/Breast Reports system reviewed and no additional complaints, except as documented Neuro Reports no additional complaints Psych Reports no additional complaints Endo Reports no additional complaints Alejandro/Lymph Reports no additional complaints Aller/Immun Reports no additional complaints Telehealth Telehealth Telehealth Platform: [employer] [place] Location of provider rendering services: practice address Location of patient: address on file Patient Identification confirmed using: Name, : Yes Telehealth method: video Patient verbally consented to treatment: Yes Patient verbally consented to billing insurance company: Yes Patient informed of any privacy concerns related to visit: Yes Results Reviewed Results Reviewed: Date of Service: 09/09/24 CLINICAL HISTORY: UTI, sepsis CT abdomen and pelvis without contrast Comparison: None provided Findings: Limited evaluation on a noncontrast study. No consolidation or effusion. Right basilar posteromedial pleural surgical clips. The gallbladder is distended with a 2.2 cm round calcification likely within the lateral most aspect of the gallbladder fundus. If clinically acute cholecystitis is suspected follow-up ultrasound should be obtained. No biliary ductal dilatation. Unenhanced liver and spleen grossly within normal limits. Pancreas somewhat atrophic. Thickening of the left adrenal. 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 Malrotation of the right kidney with 5 mm stone in distal aspect right ureter and mild hydroureter. Perinephric stranding. Additional nonobstructing stone in the right kidney Measures 10 mm and several minimal punctate nonobstructing stones. No left renal stones or left ureteral stones with no hydronephrosis or hydroureter on the left. 2.4 cm left renal hypodense lesion anteriorly suggestive of a cyst. 1.5 cm round mildly hyperdense lesion in upper pole left kidney laterally possibly a hemorrhagic cyst. No bowel obstruction, pneumoperitoneum, or pneumatosis. Severe diverticulosis of sigmoid colon with no definite evidence of acute diverticulitis. No free fluid. No definite loculated fluid collection. Uterus is absent. Escalante catheter in the urinary bladder which is empty. Atherosclerotic vascular disease with no aneurysm of the abdominal aorta. Significant diffuse demineralization with compression fractures of T11 and L1 vertebral bodies which are of indeterminate age. Significant multilevel degenerative changes in the lumbar spine. 1.8 cm sclerotic lesion in right iliac crest IMPRESSION: 1. 5 mm stone in distal aspect right ureter with hydroureter. Right perinephric stranding. Superimposed infection not excluded. 2. 2 cm likely gallstone within the lateral most aspect of the gallbladder in the fundus and distended gallbladder. If clinically indicated follow-up ultrasound should be obtained. 3. Severe sigmoid colon diverticulosis with no definite evidence of acute diverticulitis. 4. Nonobstructing right renal stone. 5. Left renal cyst and additional 1.5 cm hyperdense left renal lesion possibly hemorrhagic cyst. This can be further evaluated with ultrasound 6. Significant diffuse demineralization with compression fractures of T11 and L1 vertebral bodies which are of indeterminate age. 7. 1.8 cm nonspecific sclerotic lesion in right iliac crest and additional nonacute findings as described. Date of Service: 08/30/23 CT ABDOMEN AND PELVIS WITH CONTRAST CLINICAL INFORMATION: Upper abdominal pain nausea COMPARISON: CT abdomen from 12/13/2021 TECHNIQUE: Multidetector volumetric images were obtained from the superior aspect of the liver through the pubic symphysis following administration 85 mL of Omnipaque 350 intravenous contrast. Sagittal and coronal reformatted images were obtained on the technologist's workstation. Oral contrast: No This CT examination was performed using dose optimization techniques as appropriate, variously including the following: *Automated exposure control *Adjustment of mA and/or kV according to patient size (this includes techniques or standardized protocols for targeted exams where dose is matched to indication/reason for exam; i.e. extremities or head) *Use of iterative reconstruction technique DLP: 1428 mGy-cm FINDINGS: LUNG BASES: Bibasilar atelectasis versus scarring. Emphysematous changes. No pneumothorax. No large pleural effusion. Valvular calcifications noted. Slight elevation right hemidiaphragm. Pleural plaques along the right medial lower lobe. LIVER, GALLBLADDER, AND BILIARY TREE: The liver is normal in size, shape, and attenuation. No focal hepatic lesion or biliary ductal dilatation is present. Intraluminal gallbladder calculus measuring 2.2 cm without wall thickening or pericholecystic fluid. PANCREAS: Fatty atrophy of the pancreas. SPLEEN: Unremarkable. ADRENAL GLANDS: Unremarkable. KIDNEYS AND URETERS: Bilateral hypodense renal foci demonstrating fluid attenuation, statistically representing cysts, not requiring follow-up. Right-sided nephrolithiasis versus vascular calcification measuring 1.1 cm without hydronephrosis. No left-sided nephrolithiasis or hydronephrosis. BLADDER: Unremarkable. GASTROINTESTINAL TRACT: Small hiatal hernia. Metallic radiodensity within the stomach of unclear etiology. Colonic diverticulosis without acute diverticulitis. The small and large bowel are unremarkable. The appendix is unremarkable. ABDOMINAL WALL: Tiny fat filled umbilical hernia. LYMPH NODES: Lymph nodes per size criteria. VASCULAR: Abdominal aorta is nonaneurysmal. PELVIC VISCERA: Uterus is atrophy versus surgically absent. OSSEOUS STRUCTURES: Osteopenia. Redemonstrated compression deformity of T11 and to lesser extent T12. Multilevel degenerative changes of the thoracolumbar lumbosacral spine. Redemonstrated sclerotic focus of the lateral margin of the right iliac bone. IMPRESSION: 1. No acute process of the abdomen or pelvis identified. 2. Metallic radiodensity within the stomach of unclear etiology. 3. Cholelithiasis without acute cholecystitis. 4. Bilateral hypodense renal foci demonstrating fluid attenuation, statistically representing cysts, not requiring follow-up. 5. Right-sided nephrolithiasis versus vascular calcification measuring 1.1 cm without hydronephrosis. 6. Small hiatal hernia. 7. Colonic diverticulosis without acute diverticulitis. 8. Osteopenia. Redemonstrated compression deformity of T11 and to lesser extent T12. Date of Service: 02/15/22 EXAMINATION: US RETROPERITONEAL LIMITED (RENAL ONLY) CLINICAL INFORMATION: Cyst of kidney, acquired. COMPARISON: Ultrasound abdomen limited dated dated 12/18/2021. CT abdomen and pelvis without intravenous contrast dated 12/13/2021. Bilateral renal ultrasound dated 07/21/2021. KUB dated 07/07/2020. TECHNIQUE: Real-time imaging of the kidneys.? FINDINGS: RIGHT KIDNEY: 10.2 x 5.1 x 4.9 cm (SAG x AP x TRV). The kidney is normal in size, contour, and echogenicity. Renal cortical thickness is normal. No focal parenchymal lesions or hydronephrosis. There is an echogenic stone in the mid pole measuring 0.7 x 0.3 x 0.5 cm. There is no caliectasis. An 8 mm radiopaque calculus was seen in the mid pole on the CT abdomen exam of 12/13/2021. LEFT KIDNEY: 10.5 x 5.1 x 5.6 cm (SAG x AP x TRV). The kidney is normal in size, contour, and echogenicity. Renal cortical thickness is normal. No renal calculi or hydronephrosis. There are anechoic cysts. Upper pole cysts measure 1.8 x 1.4 x 1.5 cm and 0.7 x 0.6 x 0.8 cm. A complex lower pole cyst measures 2.5 x 2.2 x 3.1 cm. A solitary cyst was visualized in the lower pole on the previous CT abdomen and pelvis exam. IMPRESSION: 1.? Nonobstructive echogenic stone mid pole right kidney. No caliectasis or hydronephrosis. 2.? Simple cysts upper pole and complex cyst lower pole left kidney. Assessment & Plan Assessment & Plan (1) Right nephrolithiasis: Code(s): N20.0 - Calculus of kidney Category: Medical (2) UTI symptoms: Code(s): R39.9 - Unspecified symptoms and signs involving the genitourinary system Category: Medical (3) Ureteral stent present: Code(s): Z96.0 - Presence of urogenital implants Category: Medical Plan Plan - Plan to address the stone in the ureter and remove the stent as an outpatient procedure. OR If the stone has passed, the stent can be removed in the office with local lidocaine jelly. - Follow-up will be arranged, pt's son will send picture of passed stone Patient Instructions: The patient had an opportunity to ask questions regarding treatment plan. The patient expressed understanding and agreement with the above treatment plan. The patient is aware they should contact our office by phone for worsening of their current condition or the appearance of new symptoms. Compliance is encouraged with any medications and followup testing that is ordered. It is a privilege to be allowed the opportunity to participate in the urologic care of your patient. If you have any questions or concerns regarding treatment for the above conditions please do not hesitate to contact me. The office telephone contact is [phone]. This note is constructed in part using voice recognition software. While every effort has been made to ensure accuracy diamond finishing supervisor errors may have been included. Yours sincerely, Fili Maloney MD Scribe Plan - Not visible on output: Patient was informed and verbally consented to the use of an ambient scribe for clinic note documentation during this visit. Coding Level of Care Code Tele Est Pt Level 4 (56089) Diagnoses Right nephrolithiasis N20.0 UTI symptoms R39.9 Ureteral stent present Z96.0
--- OUTSIDE RECORDS SUMMARY | 2024-10-06 16:20 | XMS_ITS | Clinical Summary ---
Author Organization [facility] Address [address] [place] [address] Phone Care Team Providers Care Patient Relations Liaison Name Role Phone Silvia Corrales MD Primary Care Provider [phone] Encounters Date Type Department Care Team Description 10/02/2024 7:37 AM EDT - 10/02/2024 11:59 PM EDT Hospital Encounter [facility] [address] [place] [address] Silvia Corrales MD Discharge Disposition: Home or Self Care 10/02/2024 Transcribe Orders [facility] [address] [place] [address] Silvia Corrales MD Hydronephrosis with renal and ureteral calculous obstruction (Primary Dx); Combined systolic and diastolic heart failure, unspecified HF chronicity; Urinary tract infection without hematuria, site unspecified 09/29/2024 10:06 AM EDT - 09/29/2024 11:59 PM EDT Hospital Encounter [facility] [address] [place] [address] Silvia Corrales MD Discharge Disposition: Home or Self Care 09/29/2024 Transcribe Orders [facility] Specimen Processing [address] [place] [address] Silvia Corrales MD Hydronephrosis with renal and ureteral calculous obstruction (Primary Dx) 09/25/2024 6:03 AM EDT - 09/25/2024 11:59 PM EDT Hospital Encounter [facility] [address] [place] [address] Silvia Corrales MD Discharge Disposition: Home or Self Care 09/25/2024 Transcribe Orders [facility] Specimen Processing [address] [place] [address] Silvia Corrales MD Hydronephrosis, unspecified hydronephrosis type (Primary Dx) 09/22/2024 8:15 PM EDT - 09/22/2024 11:59 PM EDT Hospital Encounter [facility] [address] [place] [address] Silvia Corrales MD Discharge Disposition: Home or Self Care 09/22/2024 Transcribe Orders [facility] Specimen Processing [address] [place] [address] Silvia Corrales MD Ureteral stone with hydronephrosis (Primary Dx); Arthritis; Sepsis due to Klebsiella; Acute renal failure, unspecified acute renal failure type 09/18/2024 10:38 AM EDT - 09/18/2024 11:59 PM EDT Hospital Encounter [facility] [address] [place] [address] Silvia Corrales MD Discharge Disposition: Home or Self Care 09/18/2024 Transcribe Orders [facility] Specimen Processing [address] [place] [address] Silvia Corrales MD Screening for unspecified condition (Primary Dx) 09/18/2024 Transcribe Orders [facility] Specimen Processing [address] [place] [address] Silvia Corrales MD Screening for unspecified condition (Primary Dx) from Last 3 Months Social History Tobacco Use Types Packs/Day Years Used Date Smoking Tobacco: Never Assessed Education Answer Date Recorded Are you interested in more education? Not on ariel e 09/18/2024 Are you concerned about learning? Not on file 09/18/2024 No 09/18/2024 No 09/18/2024 Digital Access Answer Date Recorded No 09/18/2024 No 09/18/2024 Reliable internet access at home? Not on file 09/18/2024 Device with a working camera? Not on file Comments Unknown Sex and Gender Information Value Date Recorded Sex Assigned at Not on file Legal Sex Female 9:15 AM EDT Gender Identity Not on file Sexual Orientation Not on file Plan of Treatment Not on file Medical Devices Not on file Procedures Procedure Name Priority Date/Time Associated Diagnosis Comments COMPREHENSIVE METABOLIC PANEL Routine 10/02/2024 6:10 AM EDT Hydronephrosis with renal and ureteral calculous obstruction Combined systolic and diastolic heart failure, unspecified HF chronicity Urinary tract infection without hematuria, site unspecified CBC Routine 10/02/2024 6:10 AM EDT Hydronephrosis with renal and ureteral calculous obstruction Combined systolic and diastolic heart failure, unspecified HF chronicity Urinary tract infection without hematuria, site unspecified COMPREHENSIVE METABOLIC PANEL Routine 09/29/2024 9:05 AM EDT Hydronephrosis with renal and ureteral calculous obstruction CBC Routine 09/29/2024 9:05 AM EDT Hydronephrosis with renal and ureteral calculous obstruction COMPREHENSIVE METABOLIC PANEL Routine 09/25/2024 5:30 AM EDT Hydronephrosis, unspecified hydronephrosis type CBC Routine 09/25/2024 5:30 AM EDT Hydronephrosis, unspecified hydronephrosis type COMPREHENSIVE METABOLIC PANEL Routine 09/22/2024 8:23 PM EDT Ureteral stone with hydronephrosis Arthritis Sepsis due to Klebsiella Acute renal failure, unspecified acute renal failure type CBC Routine 09/22/2024 8:23 PM EDT Ureteral stone with hydronephrosis Arthritis Sepsis due to Klebsiella Acute renal failure, unspecified acute renal failure type IRON AND IRON BINDING CAPACITY Routine 09/22/2024 8:23 PM EDT Ureteral stone with hydronephrosis Arthritis Sepsis due to Klebsiella Acute renal failure, unspecified acute renal failure type FERRITIN Routine 09/22/2024 8:23 PM EDT Ureteral stone with hydronephrosis Arthritis Sepsis due to Klebsiella Acute renal failure, unspecified acute renal failure type COMPREHENSIVE METABOLIC PANEL Routine 09/18/2024 5:00 AM EDT Screening for unspecified condition CBC Routine 09/18/2024 5:00 AM EDT Screening for unspecified condition from Last 3 Months Results * (ABNORMAL) Comprehensive metabolic panel (10/02/2024 6:10 AM EDT) Only the most recent of5 resultswithin the time period is included. SODIUM 138 133 - 146 mmol/L [facility] POTASSIUM 5.0 3.3 - 5.1 mmol/L [facility] CHLORIDE 101 96 - 108 mmol/L [facility] CO2 25 21 - 35 mmol/L [facility] BUN 15 6 - 19 mg/dL [facility] CREATININE 1.10 0.5 - 1.5 mg/dL [facility] GLUCOSE 209(H) 70 - 99 mg/dL [facility] ALBUMIN 3.5(L) 3.9 - 4.8 g/dL [facility] TOTAL PROTEIN 6.9 6.5 - 8.0 g/dL [facility] CALCIUM 8.8 8.4 - 10.3 mg/dL [facility] ALKALINE PHOSPHATASE 115 39 - 117 U/L [facility] TOTAL BILIRUBIN 0.6 0.0 - 1.2 mg/dL [facility] AST 41(H) 0 - 37 U/L [facility] ALT 22 0 - 40 U/L [facility] GLOBULIN 3.4 1 - 4.8 g/dL [facility] EGFR 49(L) >59 mL/min/1.7 3m2 [facility] Comment:Estimated glomerular filtration rate calculated using the CKD-EPI refit equation. ANION GAP 17 10 - 20 mmol/L [facility] Blood 10/02/2024 6:10 AM EDT 10/02/2024 7:53 AM EDT us Silvia Corrales MD LAB BLOOD ORDERABLES Final Res ult [facility] [address] [place] [address] * (ABNORMAL) CBC (10/02/2024 6:10 AM EDT) Only the most recent of5 resultswithin the time period is included. WBC 5.86 4.00 - 11.00 K/uL [facility] RBC 3.27(L) 4.00 - 5.20 M/uL [facility] HGB 8.2(L) 12.0 - 16.0 g/dL [facility] HCT 28.3(L) 36.0 - 46.0 % [facility] PLT 255 150 - 450 K/uL [facility] MCV 86.5 80.0 - 100.0 fL [facility] MCH 25.1(L) 27.0 - 31.0 pg [facility] MCHC 29.0(L) 32.0 - 36.0 g/dL [facility] RDW 19.9(H) 11.5 - 14.5 % [facility] MPV 9.7 8.4 - 12.0 fL [facility] NRBC 0.00 0.00 /100 WBCs [facility] ABSOLUTE NRBC 0.00 0.00 K/uL [facility] Blood 10/02/2024 6:10 AM EDT 10/02/2024 7:53 AM EDT Silvia Corrales MD LAB BLOOD ORDERABLES Final Res ult Performing Organization Address City/[facility]/ZIP Co de Phone Number [address] [address] * (ABNORMAL) Iron and iron binding capacity (09/22/2024 8:23 PM EDT) IRON 23(L) 30 - 160 ug/dL [facility] IRON BINDING CAPACITY 264 228 - 428 ug/dL [facility] TRANSFERRIN SATURAT. 9(L) 15 - 50 % [facility] Blood 09/22/2024 8:23 PM EDT 09/22/2024 8:25 PM EDT us Silvia Corrales MD LAB BLOOD ORDERABLES Final Res ult [facility] [address] [place] [address] * Ferritin (09/22/2024 8:23 PM EDT) FERRITIN 131 13 - 150 ug/L [facility] Blood 09/22/2024 8:23 PM EDT 09/22/2024 8:25 PM EDT us Silvia Corrales MD LAB BLOOD ORDERABLES Final Res ult [facility] [address] [place] [address] from Last 3 Months Insurance MEDICARE PART A & B [facility] MEDICARE SUPPLEMENT MEDICARE PART A & B [id number] [place] [address] MEDICARE SUPPLEMENT MEDICARE PART A & B [facility] MEDICARE SUPPLEMENT MEDICARE PART A & B MEDICARE SUPPLEMENT MEDICARE PART A & B Member Subscriber Plan / Payer ( fective 2009-) Name:Abena Aminah Member ID:[id number] Relation to Subscriber:Self Name:GueraAminah restrepo Subscriber ID:[id number] Payer ID:[id number] Group ID:Not on file Type:Medicare Address: [employer] [address] MEDICARE SUPPLEMENT MEDICARE PART A & B [facility] MEDICARE SUPPLEMENT Care Teams Patient Relations Liaison Relationship Specialty Start Date End Date Silvia Corrales MD [address] [place] [phone] PCP - General Internal Medicine 09/18/24 Additional Source Comments The information contained in this document represents components of the legal health record. It is not the complete legal health record.[facility]
--- OUTSIDE RECORDS SUMMARY | 2024-10-06 16:20 | XMS_ITS | Clinical Summary ---
Author Organization [facility] Address [address] [place] [address] Care Team Providers Care Dredge Master Name Role Phone Patricia Nicole MD Primary [...] a care home (including now)? No 12/18/2022 Comments Unknown [...] 65 - 99 mg/dL 12/24/2022 7:23 AM [facility] Comment:Fasting: <100 mg/dL, Non-Fasting: <200 mg/dL (ADA 2005) Blood Urea Nitrogen (BUN) 14 8 - 21 mg/dL 12/24/2022 7:23 AM [facility] Creatinine 0.6 0.4 - 1.1 mg/dL 12/24/2022 7:23 AM [facility] eGFR 88 >59 12/24/2022 7:23 AM [facility] Comment:CKD-EPI (2020) in mL /min/1.73 sq meters. Sodium 137 136 - 145 mmol/L 12/24/2022 7:23 AM T [facility] Potassium 3.8 3.4 - 5.3 mmol/L 12/24/2022 7:23 AM [facility] Chloride 101 98 - 107 mmol/L 12/24/2022 7:23 AM [facility] CO2 28 22 - 33 mmol/L 12/24/2022 7:23 AM T [facility] Anion Gap 8 7 - 17 12/24/2022 7:23 AM [facility] Calcium 9.3 8.7 - 10.5 mg/dL 12/24/2022 7:23 AM [facility] BUN/Creatinine Ratio 23 10.0 - 25.0 Ratio 12/24/2022 7:23 AM [facility] Blood specimen (specimen) (Plasma/Serum) 12/24/2022 6:14 AM EDT 12/24/2022 6:43 AM EDT us Silvestre Juarez MD LAB BLOOD ORDERABLES Fin al Result HOSPITAL LAB See Below [address] [address] * (ABNORMAL) Hemoglobin A1c with Estimated Average Glucose (12/18/2022 3:24 AM EDT) Hemoglobin A1C 7.5(H) <5.7 % 12/18/2022 4:47 AM EDT [facility] Comment: A1c% Interpretation 5.7 - 6.0 Increase risk of diabetes 6.1 - 6.4 Higher risk of diabetes > or = 6.5 Consistent with diabetes Diabetes Care, 33(Supp 1):S1-S61, 2010 Estimated Average Glucose 169 mg/dL 12/18/2022 4:47 AM EDT [facility] Blood specimen (specimen) Blood specimen / Unknown 12/18/2022 3:24 AM EDT 12/18/2022 3:40 AM EDT us Chiquita L Buydos SENIOR QUALITY ASSURANCE SPECIALIST LAB BLOOD ORDERABLES Final R esult HOSPITAL LAB See Below [facility] [address] [place] [address] from Last 3 Months or Most Recently Relevant to Health Maintenance [place] [address] [place] [id number] [facility] MEDICARE PART A & B Advance Directives * Full Code (Latest Code Status on File) Date Activated Date Inactivated Comments 12/18/2022 2:12 AM Question Answer Comments Decision Thoroughly Discussed with: Unable to Di scuss Care Teams Dredge Master Relationship Specialty Start Date End Date Patricia Nicole MD [address] [facility] [place] [address] PCP - General Internal Medicine 12/18/22
--- OUTSIDE RECORDS SUMMARY | 2024-10-06 16:20 | XMS_ITS ---
Author Organization [facility] on Care Team Providers Care Loan Consultant Name Role Phone Malik Ki Unavailable Unavailable Silvia Corrales Unavailable Unavailable Ambrosio Murdock Unavailable Unavailable Rocío Meraz Unavailable Unavailable Juanita Mclaughlin Unavailable Unavailable Allergies and adverse reactions Code CodeSystem Substance Reaction Severity StartDate Concern Status 7454 RXNORM Nitrofurantoin Unknown 09/16/2024 active 7299 RXNORM Neomycin Unknown 09/16/2024 active 74396 RXNORM Lisinopril Unknown 09/16/[address] Latex Unknown 09/16/2024 active 5492 RXNORM Hydrocortisone Unknown 09/16/2024 active 4441 RXNORM Flecainide Unknown 09/16/2024 active 5351999 RXNORM Empagliflozin Unknown 09/16/2024 active 2231 RXNORM Cephalexin Unknown 09/16/2024 active 02829 RXNORM Biaxin Unknown 09/16/2024 active 1291 RXNORM Bacitracin Unknown 09/16/2024 active ADHESIVE TAPE Unknown 09/16/2024 active Care Team Name Role Address Phone Organization Dates Silvia Angelo Antoni PCP [address] [facility], [place], [address], [place] (Office): : [facility] 09/16/2024 - 10/02/2024 Ki Gan [address] [place] [address], [phone], [place] (Office): : : [facility] 09/16/2024 - 10/02/2024 Ambrosio Murdock [address] [place] [address], [address], [place] (Office): [facility] 09/16/2024 - 10/02/2024 Rocío Meraz [address] [place] [address], [address], [place] (Office): : [facility] 09/16/2024 - 10/02/[address], [address], [place] (Office): : : [facility] 09/16/2024 - 10/02/2024 Goals Section Goals Description Status Target Date Advanced Directives will be honored and reevalua berna as needed Active 10/06/2024 Minimize risk for falls Active 10/07/19 25 Skin will remain free of chong akdown within limits of disease process Active 10/06/2024 Will be clean, dressed and w ell groomed daily to promote dignity and psychosocial well-being Active 10/06/2024 Will be discharged to home w hen clinical and rehabilitation goals are met Active 10/06/2024 Will be free of complications related to disease process Active 10/06/2024 Will consume appropriate stacie unts of food and fluids to maintain nutritional status Active 10/06/2024 Will experience effective symptom management Act desiree 10/06/2024 Will express feelings of adj ustment to new surroundings by next review Active 10/06/2024 Will express that pain management is within acce ptable limits Active 10/06/2024 Will maintain lab parameters as appropriate Acti ve 10/06/2024 Will not experience a signif icant change in weight through next review Active 10/06/2024 Will tolerate diet, texture and fluid consistency without signs and symptoms of aspiration Active 10/06/2024 Medications Section Medication Name Status Code CodeSystem Dose Route Frequency Admin Type Sig Text Start Date End Date Insulin Glargine Subcutaneous Solution 100 UNIT/ML aborted 172098 RXNORM 5 unit Subcuta neous one time a day Routine Inject 5 unit subcut aneous ly one time a day for Diabet es 09/17 Fleet Enema Enema 7-19 GM/118ML aborted 407588 RXNORM 1 unit Rectal as needed PRN Insert 1 unit rectal ly every 24 hours as needed for Consti pation Use only if Bisaco dyl Suppos itory is ineffe ctive 10/01 Senna Tablet 8.6 MG active 055907 RXNORM 1 tablet Oral as needed PRN Give 1 tablet by mouth every 24 hours as needed for Consti pation 2024 - Acetaminophen Tablet 325 MG active 468395 RXNORM 2 tablet Oral as needed PRN Give 2 tablet by mouth every 6 hours as needed for Pain Do not exceed 3 grams in 24 hours. T otal 650 mg AND Give 2 tablet by mouth every 6 hours as needed for Elevat ed temp >101 Do not exceed 3 grams in 24 hours. T otal 650 mg 2024 - 828748 RXNORM 2 tablet Oral as needed PRN Give 2 tablet by mouth every 6 hours as needed for Pain Do not exceed 3 grams in 24 hours. T otal 650 mg AND Give 2 tablet by mouth every 6 hours as needed for Elevat ed temp >101 Do not exceed 3 grams in 24 hours. T otal 650 mg 2024 - Bisacodyl Suppository 10 MG aborted RXNORM 1 suppos itory Rectal as needed PRN Insert 1 suppos itory rectal ly every 24 hours as needed for consti pation Use if Senna is Ineffe ctive 10/01 HumaLOG KwikPen Subcutaneous Solution Pen-injector 200 UNIT/ML active 195922 2 RXNORM n/a n/a Subcuta neous before meals and at bedtime Routine Inject as per cuate mcrae scale: if 125 - 150 = 2u; 151 - 200 = 4u; 201 - 250 = 6u; 251 - 300 = 8u; 301 - 350 = 10u; 351 - 400 = 12u Call MD CELSO mixon r then 400., subcut aneous ly before meals and at bedtim e for Diabet es 2024 - levoFLOXacin Oral Tablet 500 MG complete d 19971021 RXNORM 1 tablet Oral one time a day Routine Give 1 tablet by mouth one time a day every other day for Bacter emia until 2024 23:59 09/29 Loratadine Tablet 10 MG active 695221 RXNORM 1 tablet Oral one time a day Routine Give 1 tablet by mouth one time a day for Allerg ies 2024 - Metoprolol Succinate ER Tablet Extended Release 24 Hour 25 MG active 363218 RXNORM 1 tablet Oral one time a day Routine Give 1 tablet by mouth one time a day for Hypert ension Take with or immedi ately follow ing meals. Do not crush. 2024 - CoQ10 Oral Capsule 100 MG aborted 1 capsul e Oral one time a day Routine Give 1 capsul e by mouth one time a day for Supple ment 09/17 levoFLOXacin Oral Tablet 500 MG aborted 19971021 RXNORM 1 tablet Oral one time a day Routine Give 1 tablet by mouth one time a day every other day for Bacter emia 09/16 Eliquis Tablet 2.5 MG active 313702 1 RXNORM 1 tablet Oral two times a day Routine Give 1 tablet by mouth two times a day for Afib Monito r for bleedi ng, bruisi ng, and black tarry stools 2024 - Gabapentin Capsule 300 MG active 279840 RXNORM 1 capsul e Oral at bedtime Routine Give 1 capsul e by mouth at bedtim e for Neurop athy May cause drowsi ness or dizzin ess. Avoid alcoho l. 2024 - PreserVision AREDS Capsule active 590596 RXNORM 1 capsul e Oral two times a day Routine Give 1 capsul e by mouth two times a day for eye supple ment 2024 - Crestor Tablet 5 MG active 906847 RXNORM 1 tablet Oral one time a day Routine Give 1 tablet by mouth one time a day every Mon, Wed, Fri for antihy peripi demics Take at least 2 hours before magnes ium and alumin um. 2024 - TraMADol HCl Tablet 50 MG aborted 139190 RXNORM 1 tablet Oral as needed PRN Give 1 tablet by mouth every 24 hours as needed for pain Monito r for respir atory depres anuel sedati on consti pation 09/17 TraMADol HCl Tablet 50 MG aborted 313498 RXNORM 50 mg Oral two times a day Routine Give 50 mg by mouth two times a day for pain 09/17 traMADol HCl Oral Tablet 50 MG active 360552 RXNORM 1 tablet Oral as needed PRN Give 1 tablet by mouth every 08 hours as needed for pain 2024 - Insulin Glargine Subcutaneous Solution 100 UNIT/ML aborted 318558 RXNORM 10 unit Subcuta neous one time a day Routine Inject 10 unit subcut aneous ly one time a day for Diabet es 09/19 Protonix Oral Tablet Delayed Release 40 MG active 439243 RXNORM 1 tablet Oral in the morning Routine Give 1 tablet by mouth in the mornin g for gastri tis 2024 - Insulin Glargine Subcutaneous Solution 100 UNIT/ML active 942737 RXNORM 12 unit Subcuta neous one time a day Routine Inject 12 unit subcut aneous ly one time a day for Diabet es 2024 - Aspercreme Lidocaine External Cream 4 % active n/a n/a Topical as needed PRN Apply to back topica lly every 8 hours as needed for back pain 2024 - traMADol HCl Oral Tablet 50 MG complete d 036973 RXNORM 50 mg Oral as needed PRN Give 50 mg by mouth every 8 hours as needed for pain for 1 Day 09/22 Losartan Potassium Oral Tablet 50 MG aborted 044286 RXNORM 50 mg Oral one time a day Routine Give 50 mg by mouth one time a day for BP 09/30 Lasix Oral Tablet 20 MG aborted RXNORM 20 mg Oral one time a day Routine Give 20 mg by mouth one time a day for diuret ic 09/25 Iron (Ferrous Sulfate) Oral Tablet active 325 mg Oral one time a day Routine Give 325 mg by mouth one time a day for anemia 2024 - Iron (Ferrous Sulfate) Oral Tablet aborted 325 mg Oral one time a day Routine Give 325 mg by mouth one time a day for anamia 09/23 Lasix Oral Tablet 20 MG complete d RXNORM 1 tablet Oral two times a day Routine Give 1 tablet by mouth two times a day for diuret ic for 3 Days 09/28 MiraLax Oral Packet 17 GM active 479967 RXNORM 1 packet Oral one time only One Time Only Give 1 packet by mouth one time only for Consti pation for 1 Day AND Give 1 packet by mouth every 24 hours as needed for consti pation 09/26 345709 RXNORM 1 packet Oral as needed PRN Give 1 packet by mouth one time only for Consti pation for 1 Day AND Give 1 packet by mouth every 24 hours as needed for consti pation 2024 - Spironolacton e Oral Tablet 25 MG active 912133 RXNORM 1 tablet Oral one time a day Routine Give 1 tablet by mouth one time a day for CHF 2024 - Simethicone Oral Capsule 125 MG active 694866 RXNORM 1 capsul e Oral as needed PRN Give 1 capsul e by mouth every 6 hours as needed for Gas 2024 - Losartan Potassium Oral Tablet 25 MG active 856056 RXNORM 1 tablet Oral one time a day Routine Give 1 tablet by mouth one time a day for hypert ension , heart failur e 2024 - Mental Status Section Date Assessment Total Score Description 09/22/2024 BIMS 14 cognitively int act CAM 0 No delirium ind icated PHQ-9 02 minimal depress ion Problems Problem # Description Date of onset Resolved Date Code CodeSystem Concern Status 1 ACUTE KIDNEY FAILURE, UNSPECIFIED 09/17/[address] active 2 AGE-RELATED OSTEOPOROSIS WITH CURRENT PATHOLOGICAL FRACTURE, VERTEBRA(E), SUBSEQUENT ENCOUNTER FOR FRACTURE WITH ROUTINE HEALING 09/17/[address] active 3 ANEMIA, UNSPECIFIED 09/17/[address] active 4 ESSENTIAL (PRIMARY) HYPERTENSION 09/17/[address] active 5 HYDRONEPHROSIS WITH RENAL AND URETERAL CALCULOUS OBSTRUCTION 09/17/[address] active 6 HYPERKALEMIA 09/17/[address] active 7 HYPERLIPIDEMIA, UNSPECIFIED 09/17/[address] active 8 OTHER GRAM-NEGATIVE SEPSIS 09/17/[address] active 9 PULMONARY HYPERTENSION, UNSPECIFIED 09/17/[address] active 10 SPINAL STENOSIS, LUMBAR REGION WITH NEUROGENIC CLAUDICATION 09/17/[address] active 11 TYPE 2 DIABETES MELLITUS WITHOUT COMPLICATIONS 09/17/[address] active 12 UNSPECIFIED ATRIAL FIBRILLATION 09/17/[address] active 13 UNSPECIFIED COMBINED SYSTOLIC (CONGESTIVE) AND DIASTOLIC (CONGESTIVE) HEART FAILURE 09/17/[address] active 14 UNSPECIFIED ESCHERICHIA COLI [E. COLI] THE CAUSE OF DISEASES CLASSIFIED ELSEWHERE 09/17/[address] active 15 URINARY TRACT INFECTION, SITE NOT SPECIFIED 09/17/[address] active Reason for Referral No Reasons for Referral Entered Social History Social History Observation Description Start Date End Date Code Code System Current Smoking Status Tobacco smoking consumption unknown 113227721 SNOMED CT Sex Assigned At Female 1940 [address]32[address]-0 [facility] Gender Identity Vital Signs Code Code System Vitals Name Values and Units Timing Information 9279-1 [facility] Respiratory Rate Value=16.0 Units=/m in 10/02/2024 8310-5 [facility] Body Temperature Value=97.8 Units= F 10/02/2024 8462-4 [facility] Blood Pressure-Diastolic Value=85 Un its=mmHg 10/02/2024 8480-6 [facility] Blood Pressure-Systolic Kreha=456 Un its=mmHg 10/02/2024 8867-4 [facility] Heart rate Value=76.0 Units=/min 2339-0 [facility] Blood Sugar Value=97.0 Units=mg/dL 10/02/2024 43725-3 [facility] Weight Dsonf=542.0 Units=Lbs 60773-9 [facility] Pain Level Value=0.0 10/02/2024 70386-8 [facility] O2 % BldC Oximetry Value=96.0 Units= % 09/30/2024 8302-2 [facility] Height Value=61.0 Units=Inches 09/17/2024
--- OUTSIDE RECORDS SUMMARY | 2024-10-06 16:20 | XMS_ITS | Clinical Summary ---
Author Organization [facility] Address [address] [place] [place] [address] Phone Care Team Providers Care Collar Worker Name Role Phone Unavailable Primary Care Provider [...] TABLET BY MOUTH 3 TIMES A WEEK Active co-enzyme Q-10 30 MG capsule Take 30 mg by mouth 1 (one) time each day Active apixaban (Eliquis) 5 MG tablet Take 5 mg by mouth in the morning and 5 mg in the evening. Active losartan (COZAAR) 50 MG tablet Take 50 mg by mouth 1 (one) time each day Active gabapentin (NEURONTIN) 100 MG capsule Take 100 mg by mouth in the morning and 100 mg in the evening and 100 mg before bedtime. Active spironolactone (ALDACTONE) 25 MG tablet Take 25 mg by mouth 1 (one) time each day Active furosemide (LASIX) 20 MG tablet Take 20 mg by mouth 1 (one) time each day 5 Active loratadine (CLARITIN) 10 MG tablet Take 10 mg by mouth 4 Active traMADol (ULTRAM) 50 MG tablet TAKE 1 TABLET BY MOUTH EVERY 8 HOURS NEEDED FOR MODERATE PAIN. TOGETHER WITH TYLENOL 500 MG EVERY 8 HOURS NEEDED FOR PAIN RELIEF Active Ascorbic Acid (vitamin C) 250 MG tablet Take 250 mg by mouth 1 (one) time each day Active acetaminophen (TYLENOL 8 HOUR) 650 MG 8 hr tablet Take 650 mg by mouth every 8 (eight) hours if needed for mild pain Do not crush, chew, or split. Active levoFLOXacin (LEVAQUIN) 500 MG tablet Take by mouth 1 (one) time each day Active pantoprazole (PROTONIX) 40 MG EC tablet Take 40 mg by mouth 1 (one) time each day before breakfast Do not crush, chew, or split. Active senna (SENOKOT) 8.6 MG tablet Take 1 tablet by mouth 1 (one) time each day Active Active Problems Problem Noted Date Diagnosed Date Other acute kidney failure 10/01/2024 Other acute kidney failure 10/01/2024 Stage 3a chronic kidney disease 10/01/2024 Reduced ejection fraction co -occurrent and due to acute heart failure 12/23/2022 02/05/2023 Paroxysmal atrial fibrillation 12/23/2022 1 04/07/2022 Iron deficiency anemia 12/23/2022 3 Gastro-esophageal reflux disease without esophag itis 12/23/2022 02/05/2023 Acute respiratory failure 12/23/20222022 Hyperkalemia 07/25/2022 Polyneuropathy due to type 2 diabetes mellitus 0 08/16/2021 Acquired hammer toe of left foot 08/16/2021 Chronic kidney disease stage 2 07/26/2020 Proteinuria 07/13/2020 Type 2 diabetes mellitus wit h diabetic chronic kidney disease 07/13/2020 Hypertensive renal disease 07/13/2020 Chronic kidney disease stage 1 07/13/2020 Encounters Date Type Department Care Team Description 09/24/2024 4:30 PM EDT Telemedicine [facility] [address] [place] [phone] Gume Moyer MD Other acute kidney failure (HCC) (Primary Dx); Stage 3a chronic kidney disease (HCC) 09/23/2024 Orders Only [facility] [address] [phone] Valarie Cazares MA 09/22/2024 Office Communication [facility] [address] [phone] [facility] 09/18/2024 Telephone [facility] [address] [phone] Valarie Cazares MA 08/25/2024 1:00 PM EDT Office Visit [facility] [address] [place] [phone] Gume Moyer MD Chronic kidney disease stage 2 (Primary Dx); Persistent proteinuria 08/16/2024 Orders Only [facility] [address] [phone] Gume Moyer MD from Last 3 Months Immunizations Immunization Administration Dates Next Due Influenza [...] Sign Reading Time Taken Comments Blood Pressure 114/80 08/25/2024 1:05 PM EDT Pulse 79 08/06/2023 2:16 PM EDT Temperature - - Respiratory Rate - - Oxygen Saturation 95% 08/06/2023 2:16 PM EDT Inhaled Oxygen Concentration - - Weight 70.3 kg (155 lb) 09/24/2024 4:18 PM EDT Height 162.6 cm (5' 4 ) 07/15/2018 12:01 PM EDT Body Mass Index 26.61 07/15/2018 12:01 PM EDT Plan of Treatment Upcoming Encounters Date Type Department Care Team (Late st Contact Info) Description 11/06/2024 2:30 PM EDT [facility] [address] [place] [phone] Gume Moyer MD [address] [phone] 08/31/2025 1:15 PM EDT Office Visit [facility] the [address] [place] [address] Gume Moyer MD [address] [phone] Health Maintenance Due Date Last Done Comments Pneumococcal Vaccine: 50+ Years (2 of 2 - PCV) 02/23/2014 02/23/2013 Diabetes: Ophthalmology Exam 04/19/2020 Diabetes: Pedal Pulse Checked 04/19/2020 Diabetes: Sensory Foot Exam 04/19/2020 Diabetes: Visual Foot Exam 04/19/2020 Diabetes: Hemoglobin A1C 03/20/2023 12/18/2022 Influenza Vaccine (#1) 2024 , 11/24/2013 Pneumococcal Vaccine: Peds ( 0 to 5 Years) and At-Risk Patients (6 to 49 Years) Discontinued 02/23/2013 Hepatitis B Vaccine Aged Out No longe r eligible based on patient's age to complete this topic Procedures Procedure Name Priority Date/Time Associated Diagnosis Comments ALT EXT LABS Routine 09/16/2024 ALT EXT LABS Routine 09/15/2024 URINALYSIS WITH MICROSCOPIC Routine 08/16/2024 11:56 AM EDT PROTEIN / CREATININE RATIO, URINE Routine 08/16/2024 11:56 AM EDT ALBUMIN, URINE, RANDOM Routine 08/16/2024 11:56 AM EDT CALCIUM Routine 08/16/2024 11:37 AM EDT CREATININE, BLOOD Routine 08/16/2024 11: 37 AM EDT BUN Routine 08/16/2024 11:37 AM EDT ELECTROLYTE PANEL Routine 08/16/2024 11: 37 AM EDT from Last 3 Months Results * (ABNORMAL) ALT EXT LABS (09/16/2024) Only the most recent of2 resultswithin the time period is included. BUN 46(A) 4 - 21 mg/dL Creatinine 2.02(A) 0.50 - 1.10 mg/dL Calcium 8.5(A) 8.7 - 10.7 mg/dL Sodium 138 137 - 147 Potassium 4.0 3.4 - 5.5 Chloride 105.0 99.0 - 108.0 eGFR Non-Afr Portuguese 23 09/16/2024 us Historical Provider MD LAB BLOOD ORDERABLES Lucy l Result * (ABNORMAL) Protein, Total, Random Urine w/Creatinine (Protein/Creat Ratio) (08/16/2024 11:56 AM EDT) Protein Urine Random 9 <12 mg/dL See order comments Protein/Creati nine Ratio, Urine 0.39(H) <0.2 See order comments Comment: The spot urine protein:creatinine ratio may increase to 0.3 during normal . 08/16/2024 11:5 6 AM EDT 08/16/2024 11:56 AM EDT Gume Moyer MD LAB URINE ORDERABLES Final Re [facility] Performing Organization Address [facility] de Phone Number [place] See order comments [place] [address] * (ABNORMAL) Albumin, urine, random (08/16/2024 11:56 AM EDT) Creatinine, Urine 23.24 mg/dL Se e order comments Urine Microalbumin 36.0 mg/L See order comments Microalbumin/Crea tinine Ratio 154.9(H) <30 ug/mg cr See order comments Comment: Albumin/Creatinine Ratio Reference Ranges: Normal: < 30 ug/mg creatinine Microalbuminuria: 30 - 300 ug/mg creatinine Clinical Albuminuria: > 300 ug/mg creatinine 08/16/2024 11:5 6 AM EDT 08/16/2024 11:56 AM EDT Gume Moyer MD LAB URINE ORDERABLES Final Re [facility] Performing Organization Address [facility] de Phone Number [place] See order comments [place] [address] * (ABNORMAL) Urinalysis with microscopic (08/16/2024 11:56 AM EDT) Color Urine Yellow See orde r comments Appearance Urine Clear See order comments pH Urine 8.0 5.0 - 9.0 See order comments Glucose Urine Negative Negative mg/dL See order comments Blood, Urine Negative Negative See ord er comments Specific [place] Urine 1.010 1.005 - 1.025 See order comments Protein Urine Negative Neg-Trace mg/dL See order comments Ketones, Urine Negative Negative mg/dL See order comments Nitrite, Urine Negative Negative See o rder comments Leukocyte Esterase Urine Large (3+)(A) Negative See order comments RBC, Urine 0-2 0 - 2 /HPF See orde r comments WBC >50(A) 0 - 5 /HPF See order comments Squamous Epithelial, Urine 0-2 0 - 2 /HPF See order comments Bacteria, Urine 1+ None Seen See order comments Hyaline Casts, Urine 0-2 0 - 2 /LPF See order comments 08/16/2024 11:5 6 AM EDT 08/16/2024 11:56 AM EDT us Gume Moyer MD LAB URINE ORDERABLES Final Re sult Performing Organization Address [facility] de Phone Number [facility] See order comments [place] [address] * Creatinine (08/16/2024 11:37 AM EDT) Creatinine Serum 0.82 0.5 - 1.4 mg/dL See order comments eGFR (Calc) >60 See orde r comments Comment: Chronic Kidney Disease: Estimated GFR < 60 mL/min/1.73m2 Severe Kidney Disease: Estimated GFR < 15 mL/min/1.73m2 08/16/2024 11:3 7 AM EDT 08/16/2024 11:37 AM EDT us Gume Moyer MD LAB BLOOD ORDERABLES Final Re sult Performing Organization Address [facility] de Phone Number [place] See order comments [place] [address] * (ABNORMAL) BUN (08/16/2024 11:37 AM EDT) BUN 26(H) 9 - 16 mg/dL See order comments 08/16/2024 11:3 7 AM EDT 08/16/2024 11:37 AM EDT us Gume Moyer MD LAB BLOOD ORDERABLES Final Re sult Performing Organization Address [facility] de Phone Number [place] See order comments [place] [address] * Calcium (08/16/2024 11:37 AM EDT) Calcium 9.7 8.4 - 10.2 mg/dL See order comments 08/16/2024 11:3 7 AM EDT 08/16/2024 11:37 AM EDT us Gume Moyer MD LAB BLOOD ORDERABLES Final Re sult [place] See order comments [place] [address] * (ABNORMAL) Electrolyte panel (08/16/2024 11:37 AM EDT) Sodium 139 135 - 145 mmol/L See order comments Potassium 4.4 3.3 - 5.1 mmol/L See order comments Chloride 100 96 - 108 mmol/L See order comments Bicarbonate (CO2) 31(H) 22 - 29 mmol/L See order comments Anion Gap 12 12 - 20 See order comments 08/16/2024 11:3 7 AM EDT 08/16/2024 11:37 AM EDT Gume Moyer MD LAB BLOOD ORDERABLES Final Re sult [place] See order comments [place] [address] from Last 3 Months Insurance [facility] Medicare [facility] Medicare
== END 2024-10-06 17:00 | disposition home or self-care (01) ==
LOC: HO.HUSH 16:01
PROVIDERS: PCP Internal Medicine; Visit Provider Urology
DX: N20.0 Calculus of kidney (principal); R39.9 Unspecified symptoms and signs involving the genitourinary system; Z96.0 Presence of urogenital implants
CPT/HCPCS: 99214

== ENCOUNTER 2024-10-10 08:05 | Outpatient (REF) | payer MEDICARE, SELFPAY ==
--- OUTSIDE RECORDS SUMMARY | 2024-10-10 08:09 | XMS_ITS ---
Author Name [facility] Organization Unknown Encounters Encounter Type Encounter Reason Primary Diagnosis Location Date Inpatient Heart failure, unspecified Heart failure, unspecified [facility] 12/18/2022 Care Team Organization Name Specialty Phone Email Start Date End Da te [facility] 12/18/2022 06/04/2024 [facility] ADRI JACKSON Primary Care 12/18/20222022 [facility] 12/18/2022 12/18/2022
--- OUTSIDE RECORDS SUMMARY | 2024-10-10 08:09 | XMS_ITS | Clinical Summary ---
Author Organization [facility] Address [address] [place] [address] Phone Care Team Providers Care Speech Clinician Name Role Phone Silvia Corrales MD Primary Care Provider [phone] Encounters Date Type Department Care Team Description 10/02/2024 7:37 AM EDT - 10/02/2024 11:59 PM EDT Hospital Encounter [facility] [address] [place] [address] Silvia Corrales MD Discharge Disposition: Home or Self Care 10/02/2024 Transcribe Orders [facility] [address] [place] [address] Silvia Corrales MD Hydronephrosis with renal and ureteral calculous obstruction (Primary Dx); Combined systolic and diastolic heart failure, unspecified HF chronicity; Urinary tract infection without hematuria, site unspecified 09/29/2024 10:06 AM EDT - 09/29/2024 11:59 PM EDT Hospital Encounter [facility] [address] [place] [address] Silvia Corrales MD Discharge Disposition: Home or Self Care 09/29/2024 Transcribe Orders [facility] [address] [place] [address] Silvia Corrales MD Hydronephrosis with renal and ureteral calculous obstruction (Primary Dx) 09/25/2024 6:03 AM EDT - 09/25/2024 11:59 PM EDT Hospital Encounter [facility] [address] [place] [address] Silvia Corrales MD Discharge Disposition: Home or Self Care 09/25/2024 Transcribe Orders [facility]imen [facility] [address] [place] [address] Silvia Corrales MD Hydronephrosis, unspecified hydronephrosis type (Primary Dx) 09/22/2024 8:15 PM EDT - 09/22/2024 11:59 PM EDT Hospital Encounter [facility] [address] [place] [address] Silvia Corrales MD Discharge Disposition: Home or Self Care 09/22/2024 Transcribe Orders [facility] Specimen Processing [address] [place] [address] Silvia Corrales MD Ureteral stone with hydronephrosis (Primary Dx); Arthritis; Sepsis due to Klebsiella; Acute renal failure, unspecified acute renal failure type 09/18/2024 10:38 AM EDT - 09/18/2024 11:59 PM EDT Hospital Encounter [facility] [address] [place] [address] Silvia Corrales MD Discharge Disposition: Home or Self Care 09/18/2024 Transcribe Orders [facility] Specimen Processing [address] [place] [address] Silvia Corrales MD Screening for unspecified condition (Primary Dx) 09/18/2024 Transcribe Orders [facility] Specimen Processing [address] [place] [address] Silvia Corrales MD Screening for unspecified condition [...] included. SODIUM 138 133 - 146 mmol/L [facility] POTASSIUM 5.0 3.3 - 5.1 mmol/L [facility] CHLORIDE 101 96 - 108 mmol/L [facility] CO2 25 21 - 35 mmol/L [facility] BUN 15 6 - 19 mg/dL [facility] CREATININE 1.10 0.5 - 1.5 mg/dL [facility] GLUCOSE 209(H) 70 - 99 mg/dL [facility] ALBUMIN 3.5(L) 3.9 - 4.8 g/dL [facility] TOTAL PROTEIN 6.9 6.5 - 8.0 g/dL [facility] CALCIUM 8.8 8.4 - 10.3 mg/dL [facility] ALKALINE PHOSPHATASE 115 39 - 117 U/L [facility] TOTAL BILIRUBIN 0.6 0.0 - 1.2 mg/dL [facility] AST 41(H) 0 - 37 U/L [facility] ALT 22 0 - 40 U/L [facility] GLOBULIN 3.4 1 - 4.8 g/dL [facility] EGFR 49(L) >59 mL/min/1.7 3m2 [facility] Comment:Estimated glomerular filtration rate calculated using the CKD-EPI refit equation. ANION GAP 17 10 - 20 mmol/L [facility] Blood 10/02/2024 6:10 AM EDT 10/02/2024 7:53 AM EDT us Silvia Corrales MD LAB BLOOD ORDERABLES Final Res ult [facility] [address] [place] [address] * (ABNORMAL) CBC (10/02/2024 6:10 AM EDT) Only the most recent of5 resultswithin the time period is included. WBC 5.86 4.00 - 11.00 K/uL [facility] RBC 3.27(L) 4.00 - 5.20 M/uL [facility] HGB 8.2(L) 12.0 - 16.0 g/dL [facility] HCT 28.3(L) 36.0 - 46.0 % [facility] PLT 255 150 - 450 K/uL [facility] MCV 86.5 80.0 - 100.0 fL [facility] MCH 25.1(L) 27.0 - 31.0 pg [facility] MCHC 29.0(L) 32.0 - 36.0 g/dL [facility] RDW 19.9(H) 11.5 - 14.5 % [facility] MPV 9.7 8.4 - 12.0 fL [facility] NRBC 0.00 0.00 /100 WBCs [facility] ABSOLUTE NRBC 0.00 0.00 K/uL [facility] Blood 10/02/2024 6:10 AM EDT 10/02/2024 7:53 AM EDT Silvia Corrales MD LAB BLOOD ORDERABLES Final Res ult Performing Organization Address City/[facility]/ZIP Co de Phone Number [address] [address] * (ABNORMAL) Iron and iron binding capacity (09/22/2024 8:23 PM EDT) IRON 23(L) 30 - 160 ug/dL [facility] IRON BINDING CAPACITY 264 228 - 428 ug/dL [facility] TRANSFERRIN SATURAT. 9(L) 15 - 50 % [facility] Blood 09/22/2024 8:23 PM EDT 09/22/2024 8:25 PM EDT us Silvia Corrales MD LAB BLOOD ORDERABLES Final Res ult [facility] [address] [place] [address] * Ferritin (09/22/2024 8:23 PM EDT) FERRITIN 131 13 - 150 ug/L [facility] Blood 09/22/2024 8:23 PM EDT 09/22/2024 8:25 PM EDT us Silvia Corrales MD LAB BLOOD ORDERABLES Final Res ult [facility] [address] [place] [address] from Last 3 Months Insurance MEDICARE PART A & B [facility] MEDICARE SUPPLEMENT MEDICARE PART A & B [id number] [place] [address] MEDICARE SUPPLEMENT MEDICARE PART A & B [facility] MEDICARE SUPPLEMENT MEDICARE PART A & B MEDICARE SUPPLEMENT MEDICARE PART A & B Member Subscriber Plan / Payer ( fective 2009-) Name:Abena Aminah Member ID:[id number] Relation to Subscriber:Self Name:GueraAminah restrepo Subscriber ID:[id number] Payer ID:[id number] Group ID:Not on file Type:Medicare Address: [employer] [address] MEDICARE SUPPLEMENT MEDICARE PART A & B [facility] MEDICARE SUPPLEMENT Care Teams Speech Clinician Relationship Specialty Start Date End Date Silvia Corrales MD [address] [place] [id number] PCP - General Internal Medicine 09/18/24 Additional Source Comments The information contained in this document represents components of the legal health record. It is not the complete legal health record.[facility]
--- OUTSIDE RECORDS SUMMARY | 2024-10-10 08:09 | XMS_ITS | Clinical Summary ---
Author Organization [facility] Address [address] [place] [address] Care Team Providers Care Unit Educator Name Role Phone Patricia Nicole MD Primary [...] place to sleep or slept in a penitentiary (including now)? No 12/18/2022 Comments Unknown Sex [...] 65 - 99 mg/dL 12/24/2022 7:23 AM [facility] Comment:Fasting: <100 mg/dL, Non-Fasting: <200 mg/dL (ADA 2005) Blood Urea Nitrogen (BUN) 14 8 - 21 mg/dL 12/24/2022 7:23 AM [facility] Creatinine 0.6 0.4 - 1.1 mg/dL 12/24/2022 7:23 AM [facility] eGFR 88 >59 12/24/2022 7:23 AM [facility] Comment:CKD-EPI (2020) in mL /min/1.73 sq meters. Sodium 137 136 - 145 mmol/L 12/24/2022 7:23 AM [facility] Potassium 3.8 3.4 - 5.3 mmol/L 12/24/2022 7:23 AM [facility] Chloride 101 98 - 107 mmol/L 12/24/2022 7:23 AM [facility] CO2 28 22 - 33 mmol/L 12/24/2022 7:23 AM T [facility] Anion Gap 8 7 - 17 12/24/2022 7:23 AM [facility] Calcium 9.3 8.7 - 10.5 mg/dL 12/24/2022 7:23 AM [facility] BUN/Creatinine Ratio 23 10.0 - 25.0 Ratio 12/24/2022 7:23 AM [facility] Blood specimen (specimen) (Plasma/Serum) 12/24/2022 6:14 AM EDT 12/24/2022 6:43 AM EDT us Silvestre Juarez MD LAB BLOOD ORDERABLES Fin al Result HOSPITAL LAB See Below [address] [address] * (ABNORMAL) Hemoglobin A1c with Estimated Average Glucose (12/18/2022 3:24 AM EDT) Hemoglobin A1C 7.5(H) <5.7 % 12/18/2022 4:47 AM EDT [facility] Comment: A1c% Interpretation 5.7 - 6.0 Increase risk of diabetes 6.1 - 6.4 Higher risk of diabetes > or = 6.5 Consistent with diabetes Diabetes Care, 33(Supp 1):S1-S61, 2010 Estimated Average Glucose 169 mg/dL 12/18/2022 4:47 AM EDT [facility] Blood specimen (specimen) Blood specimen / Unknown 12/18/2022 3:24 AM EDT 12/18/2022 3:40 AM EDT us Chiquita L [employer] CLINICAL SALES CONSULTANT LAB BLOOD ORDERABLES Final R esult HOSPITAL LAB See Below [facility] [address] [place] [address] from Last 3 Months or Most Recently Relevant to Health Maintenance [place] [place] [phone] [facility] MEDICARE PART A & B Advance Directives * Full Code (Latest Code Status on File) Date Activated Date Inactivated Comments 12/18/2022 2:12 AM Question Answer Comments Decision Thoroughly Discussed with: Unable to Di scuss Care Teams Unit Educator Relationship Specialty Start Date End Date Patricia Nicole MD [address] [facility] [place] [address] PCP - General Internal Medicine 12/18/22
--- OUTSIDE RECORDS SUMMARY | 2024-10-10 08:09 | XMS_ITS | Clinical Summary ---
Author Organization [facility] Address [address] [place] [address] Phone Care Team Providers Care Physical Testing Supervisor Name Role Phone Unavailable Primary Care Provider [...] EDT Telemedicine [facility] [address] [place] [phone] Gume Moyer MD Other acute kidney failure (HCC) (Primary Dx); Stage 3a chronic kidney disease (HCC) 09/23/2024 Orders Only [facility] [address] [phone] Valarie Cazares MA 09/22/2024 Office Communication [facility] [address] [phone] [facility] 09/18/2024 Telephone [facility] [address] [phone] Valarie Cazares MA 08/25/2024 1:00 PM EDT Office Visit [facility] [address] [place] [address] Gume Moyer MD Chronic kidney disease stage 2 (Primary Dx); Persistent proteinuria 08/16/2024 Orders Only [facility] [address] [phone] Gume Moyer MD from Last 3 Months [...] Office Visit [facility] [address] [place] [phone] Gume Moyer MD [address] [phone] 08/31/2025 1:15 PM EDT Office Visit [facility] [address] [place] [address] Gume Moyer MD [address] [phone] Health Maintenance Due Date Last [...] Chloride 105.0 99.0 - 108.0 eGFR Non-Afr Tongan 23 09/16/2024 us Historical Provider MD LAB [...] Moyer MD LAB URINE ORDERABLES Final Re [facility] Performing Organization Address [facility] de Phone Number [place] See order comments [place] [address] * (ABNORMAL) Albumin, urine, random (08/16/2024 11:56 [...] Moyer MD LAB URINE ORDERABLES Final Re [facility] Performing Organization Address [facility] de Phone Number [place] See order comments [place] [address] * (ABNORMAL) Urinalysis with microscopic (08/16/2024 11:56 AM EDT) Color Urine Yellow See orde r comments Appearance Urine Clear See order comments pH Urine 8.0 5.0 - 9.0 See order comments Glucose Urine Negative Negative mg/dL See order comments Blood, Urine Negative Negative See ord er comments Specific [place] Urine 1.010 1.005 - 1.025 See order [...] ORDERABLES Final Re sult Performing Organization Address [facility] de Phone Number [facility] See order comments [place] [address] * Creatinine (08/16/2024 11:37 AM EDT) Creatinine Serum 0.82 0.5 - 1.4 mg/dL See order comments eGFR (Calc) >60 See orde r comments Comment: Chronic Kidney Disease: Estimated GFR < 60 mL/min/1.73m2 Severe Kidney Disease: Estimated GFR < 15 mL/min/1.73m2 08/16/2024 11:3 7 AM EDT 08/16/2024 11:37 AM EDT us Gume Moyer MD LAB BLOOD ORDERABLES Final Re sult Performing Organization Address [facility] de Phone Number [place] See order comments [place] [address] * (ABNORMAL) BUN (08/16/2024 11:37 AM EDT) BUN 26(H) 9 - 16 mg/dL See order comments 08/16/2024 11:3 7 AM EDT 08/16/2024 11:37 AM EDT us Gume Moyer MD LAB BLOOD ORDERABLES Final Re sult Performing Organization Address [facility] de Phone Number [place] See order comments [place] [address] * Calcium (08/16/2024 11:37 AM EDT) Calcium 9.7 8.4 - 10.2 mg/dL See order comments 08/16/2024 11:3 7 AM EDT 08/16/2024 11:37 AM EDT us Gume Moyer MD LAB BLOOD ORDERABLES Final Re sult [place] See order comments [place] [address] * (ABNORMAL) Electrolyte panel (08/16/2024 11:37 AM [...] order comments [place] [address] from Last 3 Months Insurance [facility] Medicare [facility] Medicare
[2024-10-10 10:30] LABS: Hemoglobin A1C 144.1772 umol/L; Total Hemoglobin (HGBA1C) 2586.8954 umol/L
[2024-10-10 10:45] LABS: Alanine Aminotransferase < 6 U/L (0-31); Anion Gap 15 (12-20); Aspartate Amino Transferase 26 U/L (5-31); Blood Urea Nitrogen 19 mg/dL (9-16); Calcium 9.3 mg/dL (8.4-10.2); Carbon Dioxide 27 mmol/L (22-29); Chloride 101 mmol/L (96-108); Cholesterol 111 mg/dL (<200); Estimated Glomerular Filt Rate 45; HDL Cholesterol 34 mg/dL (>40); Iron 34 mcg/dL (30-160); Percent Iron Saturation 12 % (15-50); Potassium 5.1 mmol/L (3.3-5.1); Sodium 138 mmol/L (135-145); Total Iron Binding Capacity 292 mcg/dL (228-428); Triglycerides 109 mg/dL (<150); Unsaturated Iron Binding 258 ug/dL
== END 2024-10-10 08:06 | disposition home or self-care (01) ==
LOC: HO.HMGCLDS 08:05
PROVIDERS: PCP Internal Medicine; Visit Provider Internal Medicine
DX: I11.0 Hypertensive heart disease with heart failure (principal); I50.42 Chronic combined systolic (congestive) and diastolic (congestive) heart failure; E11.40 Type 2 diabetes mellitus with diabetic neuropathy, unspecified; E78.5 Hyperlipidemia, unspecified; K29.50 Unspecified chronic gastritis without bleeding; D50.9 Iron deficiency anemia, unspecified; Z79.4 Long term (current) use of insulin; Z79.01 Long term (current) use of anticoagulants
CPT/HCPCS: 36415; 80048; 80061; 82306; 83036; 83540; 84450; 84460

== ENCOUNTER 2024-10-13 09:18 | Outpatient (AMB) | payer MEDICARE, SELFPAY ==
--- NOTE | 2024-10-13 09:36 | MHC.OFFVIS ---
Intake Visit Reasons: cysto/ stent removal Intake Note: Patient presents today for cysto/stent removal Urology Medication:None Blood Thinner:Apixaban Antibiotic Allergies:None Lot #: [id number] Exp: 06/12/27 Gunner'S Mate Required: No Accompanied by: Self / Same As Patient Allergies latex (Latex) Allergy (Severe, Verified 10/13/24 09:36) RASH cephalexin (CEPHALEXIN) Allergy (Intermediate, Verified 10/13/24 09:36) SWELLING adhesive tape (Adhesive Tape) Allergy (Mild, Verified 10/13/24 09:36) CONTACT DERMATITIS empagliflozin (From Jardiance) Adverse Reaction (Severe, Verified 10/13/24 09:36) Dizziness flecainide (From Tambocor) Adverse Reaction (Severe, Verified 10/13/24 09:36) HEART RACING Biaxin Adverse Reaction (Intermediate, Verified 10/13/24 09:36) plapitations lisinopril (LISINOPRIL) Adverse Reaction (Intermediate, Verified 10/13/24 09:36) cough, nausea bacitracin (From Cortisporin) Adverse Reaction (Mild, Verified 10/13/24 09:36) EYE IRRITATION hydrocortisone (From Cortisporin) Adverse Reaction (Mild, Verified 10/13/24 09:36) EYE IRRITATION neomycin (From Cortisporin) Adverse Reaction (Mild, Verified 10/13/24 09:36) EYE IRRITATION nitrofurantoin Adverse Reaction (Verified 10/13/24 09:36) Loss of Appetite Medication List - Last Reconciled 10/13/24 by Fili Maloney MD acetaminophen ER (Tylenol Arthritis Pain) 650 mg PO Q8H apixaban (Eliquis) 2.5 mg PO BID coenzyme Q10 (CoQ-10) 100 mg PO DAILY gabapentin 300 mg (3 x 100 mg) PO BEDTIME insulin glargine (Lantus Solostar U-100 Insulin) 5 units subcut DAILY insulin lispro (Humalog KwikPen U-200 Insulin) 2 - 12 units subcut TID PRN loratadine (Allergy Relief (loratadine)) 10 mg PO DAILY metoprolol succinate ER 25 mg PO DAILY pantoprazole 40 mg PO DAILY pen needle, diabetic As directed QID ac and hs rosuvastatin 5 mg PO MOWEFR 90 days tramadol 50 mg PO BID tramadol 50 mg PO DAILY PRN vit C,I-Bn-lcydr-lutein-zeaxan 250-90-40-1 mg (PreserVision AREDS-2) 1 tab PO BID HPI Comments Details: 10/13/24-- History of Present Illness - The patient is an 84-year-old female presenting with nephrolithiasis and back pain. Pt is here with daughter. - Here for right stent removal - passed 5 mm distal right ureteral stone Results - Imaging: - CT scan on 09/10/24 showed a 5 mm obstructing distal stone and an 11 mm stone in the right kidney. Plan - Follow-up ultrasound in six months to monitor the right kidney stone. - Implement dietary changes to reduce oxalate intake, including reducing tea consumption and increasing water intake with lemon. Diet sheet provided - Prescribe vitamin B6 to aid in reducing stone formation. 10/06/24--Aminah is an 84-year-old female with history of kidney stones she was in the hospital in August for UTI and acute kidney injury on 09/10/2024 a CAT scan was done as an inpatient noting a 5 mm right distal obstructing stone also an 11 mm right kidney stone Dr. Solis placed a right ureteral stent on 09/11/2024. - The patient is an 84-year-old female presenting with kidney stones. - She has a history of kidney stones, with a recent 5 mm obstructing distal stone and an 11 mm stone in the right kidney. - In August, she was hospitalized for a urinary tract infection and acute kidney injury, due to 5 mm obstructing distal stone, CT also noted an 11 mm nonobstructing stone in the right kidney during which a stent was placed by Dr. Solis on 09/11/24 to manage the obstructing stone. - The patient's son states she the stent has not been removed yet, and he thinks the patient passed the ureteral stone in the hospital, he states the nurse collected it and he took a picture. Results - CT scan on 09/10/24 showed a 5 mm obstructing distal stone and an 11 mm stone in the right kidney. 07/29/24--Aminah is here with her daughter she has been seen in our office in the past due to kidney stones. Past medical history significant for degenerative disc disease, diabetes, congestive heart failure. She presents because of persistent UTI symptoms of urgency frequency. She states that she was seen by her PCP in June and the furosemide was discontinued which has helped to some degree with her urinary symptoms. Urinalysis today is notable for leukocytes and blood. I reviewed prior imagin08/30/23--CTAP with IV contrast--KIDNEYS AND URETERS: Bilateral hypodense renal foci demonstrating fluid attenuation, statistically representing cysts, not requiring follow-up. Right-sided nephrolithiasis versus vascular calcification measuring 1.1 cm without hydronephrosis. No left-sided nephrolithiasis or hydronephrosis. The patient states that she wears a panty liner and generally is able to get to the bathroom but will occasionally have some leakage prior to getting to the bathroom to urinate. I have discussed further evaluation with CT urogram I will send urine for culture and urine FISH. Discussion today included trial of Gemtesa/anticholinergic at this time the patient is reluctant to start a new medication will hold on medication therapy for now and have her follow-up after CT urogram for office cystoscopy. 09/04/22-- Aminah is an 82-year-old female who presents to the office for 6-months follow-up for renal calculi. The patient denies hematuria or any other urinary symptoms. She was seen last by LUCERO Godinez on 03/06/22---- Aminah is an 81-year-old female who is here for follow-up. She has history of kidney stones. 09/04/22--Evaluation today-- Blood: negative, leukocytes: negative. Renal US-- 02/15/22-- nonobstructive calculi in the mid pole of the right kidney. Plan: KUB X-ray was ordered to be done today. Follow-up after a year or sooner if needed. Renal US prior was ordered. 03/06/11--She is here in follow-up post renal ultrasound. I have discussed ultrasound results with the patient. In review imaging she has a stable 8 mm right kidney stone. The patient states in the past she did have shockwave lithotripsy. She is not interested in any procedures at this time as the stone is not bothering her. The patient states that she fell about 3 months ago and has been having chronic lower back pain since, she is taking 1 Tylenol about every 6 hours. Therapeutic plan--- fluids encouraged, surveillance imaging. KUB in 6 months. Imagin02/15/22- renal us - right kidney stone stable - no hydro 12/13/21- CTKUB - right kidney 8 mm stone - 07/07 CT scan 8 mm proximal ureteric stone, 8 mm upper pole right stone - 08/06 renal ultrasound with 8 mm upper pole stone Intervention - 06/2020 ESWL right side PFSH Medical History History of CHF (congestive heart failure) Pacemaker Chronic combined systolic and diastolic CHF (congestive heart failure) Right nephrolithiasis Recurrent UTI (urinary tract infection) Hiatal hernia Gastritis Opioid-induced constipation Degenerative disc disease, thoracic Degenerative disc disease, lumbar [place] (hard of hearing) Wears hearing aid in both ears Uses walker Hx of cardiac pacemaker (10/06/23) Age-related osteoporosis with current pathological fracture, vertebra(e), initial encounter for fracture Compression fracture of lumbar spine, non-traumatic Nontraumatic compression fracture of thoracic vertebra Moderate aortic stenosis Diabetes mellitus Congestive heart failure Urinary tract infection Hypertension Paroxysmal atrial fibrillation Cholelithiasis Renal cyst Nephrolithiasis Pulmonary hypertension Non-rheumatic mitral regurgitation Permanent atrial fibrillation Microcytic anemia Atrophic vaginitis Osteoarthritis of knees, bilateral Essential hypertension Dyslipidemia Type 2 diabetes mellitus with diabetic neuropathy, with long-term current use of insulin Surgical History History of cardiac radiofrequency ablation (RFA) Hx of cardiac catheterization History of esophagogastroduodenoscopy (EGD) (~10/2022) History of lumbar discectomy History of lobectomy of lung History of hysterectomy History of total right knee replacement (TKR) Lumbar radiculopathy Family History Father Diabetes mellitus Mother Diabetes mellitus Myocardial infarction Sister Cancer Sister No problems noted. Son No problems noted. Daughter No problems noted. Social History Household Members: Family Housing: House Are you a primary career coordinator to a significant other at home: No Do you presently have visiting nurse or other home services: No Unable to assess alcohol history related to: Unable to respond Alcohol intake: never Patient Tobacco Use Status: Former Tobacco user Tobacco use type: Cigarette e-Cigarette/Vaping Use: Never Used Advance Directives Date on File: 06/20/23 service: No Current occupational status: retired Cognitive needs: No Hearing needs: Yes Vision needs: Yes Review of Systems Const All systems reviewed & are unremarkable except as noted in HPI and below Reports no additional complaints Eyes Reports no additional complaints ENT Reports no additional complaints Card Reports no additional complaints Resp Reports no additional complaints GI Reports no additional complaints Reports as per HPI Musc Reports no additional complaints Skin/Breast Reports system reviewed and no additional complaints, except as documented Neuro Reports no additional complaints Psych Reports no additional complaints Endo Reports no additional complaints Alejandro/Lymph Reports no additional complaints Aller/Immun Reports no additional complaints Office Procedures Cystoscopy Consent Discussed risk and benefit or proposed procedure with the patient. Information consent for procedure given to the patient. Discussed technical aspects, risks, benefits and alternatives in full. Addressed all of the patient's questions and concerns regarding the procedure. The patient demonstrated knowledge and understanding. They wish to proceed with this procedure. Preparation The patient was prepped in the usual manner. A wood and wood products factory worker was present and in the room. Genitalia was prepped with betadine solution in a sterile manner. Lidocaine Jelly 2% was placed into the urethra and 16Fr flexible Olympus cystoscope was inserted into the meatus after adequate lubrication. Procedure Time out per protocol performed. Speculum used as indicated for adequate visualization of urethra, the flexible cystoscope is passed transurethrally: Cystoscopy findings: mild edema ureteral orifice which is expected, distal end of ureteral stent visualized. The grasping forceps were used and the stent was removed without difficulty. 34930-Hjvhyyrixl with stent removal DISPOSABLE SCOPE URO-G FLEXIBLE SCOPE Procedure code (CPT) selection complete Office Meds lidocaine HCl 2 % mucosal jelly in applicator Performing Provider: Fili Maloney MD Performing Location: [facility] Administered by: Raquel Petty RN on 10/13/24 10:07 Dose Route Admin Location Dispensed Lot Number Expiration Date [facility] Mold Polisher 10 mL intra-urethral 20 mL ciprofloxacin HCl 500 mg tablet Performing Provider: Fili Maloney MD Performing [facility] Administered by: Raquel Petty RN on 10/13/24 10:07 Dose Route Admin Location Dispensed Lot Number Expiration Date NDC Mold Polisher 500 mg PO 1 tab phenazopyridine 200 mg tablet Performing Provider: Fili Maloney MD Performing Location[facility] Administered by: Raquel Petty RN on 10/13/24 10:07 Dose Route Admin Location Dispensed Lot Number Expiration Date NDC Mold Polisher 200 mg PO 1 tab Results Reviewed Results Reviewed: Date of Service: 09/09/24 CLINICAL HISTORY: UTI, sepsis CT abdomen and pelvis without contrast Comparison: None provided Findings: Limited evaluation on a noncontrast study. No consolidation or effusion. Right basilar posteromedial pleural surgical clips. The gallbladder is distended with a 2.2 cm round calcification likely within the lateral most aspect of the gallbladder fundus. If clinically acute cholecystitis is suspected follow-up ultrasound should be obtained. No biliary ductal dilatation. Unenhanced liver and spleen grossly within normal limits. Pancreas somewhat atrophic. Thickening of the left adrenal. 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 Malrotation of the right kidney with 5 mm stone in distal aspect right ureter and mild hydroureter. Perinephric stranding. Additional nonobstructing stone in the right kidney Measures 10 mm and several minimal punctate nonobstructing stones. No left renal stones or left ureteral stones with no hydronephrosis or hydroureter on the left. 2.4 cm left renal hypodense lesion anteriorly suggestive of a cyst. 1.5 cm round mildly hyperdense lesion in upper pole left kidney laterally possibly a hemorrhagic cyst. No bowel obstruction, pneumoperitoneum, or pneumatosis. Severe diverticulosis of sigmoid colon with no definite evidence of acute diverticulitis. No free fluid. No definite loculated fluid collection. Uterus is absent. Escalante catheter in the urinary bladder which is empty. Atherosclerotic vascular disease with no aneurysm of the abdominal aorta. Significant diffuse demineralization with compression fractures of T11 and L1 vertebral bodies which are of indeterminate age. Significant multilevel degenerative changes in the lumbar spine. 1.8 cm sclerotic lesion in right iliac crest IMPRESSION: 1. 5 mm stone in distal aspect right ureter with hydroureter. Right perinephric stranding. Superimposed infection not excluded. 2. 2 cm likely gallstone within the lateral most aspect of the gallbladder in the fundus and distended gallbladder. If clinically indicated follow-up ultrasound should be obtained. 3. Severe sigmoid colon diverticulosis with no definite evidence of acute diverticulitis. 4. Nonobstructing right renal stone. 5. Left renal cyst and additional 1.5 cm hyperdense left renal lesion possibly hemorrhagic cyst. This can be further evaluated with ultrasound 6. Significant diffuse demineralization with compression fractures of T11 and L1 vertebral bodies which are of indeterminate age. 7. 1.8 cm nonspecific sclerotic lesion in right iliac crest and additional nonacute findings as described. Assessment & Plan Assessment & Plan (1) Right nephrolithiasis: Code(s): N20.0 - Calculus of kidney Category: Medical Plan Plan - Follow-up ultrasound in six months to monitor the right kidney stone. - Implement dietary changes to reduce oxalate intake, including reducing tea consumption and increasing water intake with lemon. - Prescribe vitamin B6 to aid in reducing stone formation. Orders: Orders AMB Cystoscopy Today N20.0 - Calculus of kidney, Z96.0 - Presence of urogenital implants US renal BI 5 Months N20.0 - Calculus of kidney Patient Instructions: The patient had an opportunity to ask questions regarding treatment plan. The patient expressed understanding and agreement with the above treatment plan. The patient is aware they should contact our office by phone for worsening of their current condition or the appearance of new symptoms. Compliance is encouraged with any medications and followup testing that is ordered. It is a privilege to be allowed the opportunity to participate in the urologic care of your patient. If you have any questions or concerns regarding treatment for the above conditions please do not hesitate to contact me. The office telephone contact is [phone]. This note is constructed in part using voice recognition software. While every effort has been made to ensure accuracy skill training program coordinator errors may have been included. Yours sincerely, Fili Maloney MD Scribe Plan - Not visible on output: Patient was informed and verbally consented to the use of an ambient scribe for clinic note documentation during this visit. Coding Level of Care Code Est Pt Level 3 (44621) Complex EM visit Add On G2211 Diagnoses Right nephrolithiasis N20.0 CPT Codes Cystoscopy - CPT: 67427-Kxthexjpqz with stent removal ([id number])
--- OUTSIDE RECORDS SUMMARY | 2024-10-13 10:06 | XMS_ITS | Clinical Summary ---
Author Organization [facility] Address [address] [place] [address] Care Team Providers Care Milk Pasteurizer Name Role Phone Patricia Nicole MD Primary [...] to sleep or slept in a senior care (including now)? No 12/18/2022 Comments Unknown Sex [...] - 145 mmol/L 12/24/2022 7:23 AM T [facility] Potassium 3.8 3.4 - 5.3 mmol/L 12/24/2022 7:23 AM [facility] Chloride 101 98 - 107 mmol/L 12/24/2022 7:23 AM [facility] CO2 28 22 - 33 mmol/L 12/24/2022 7:23 AM T [facility] Anion Gap 8 7 - 17 12/24/2022 7:23 AM [facility] Calcium 9.3 8.7 - 10.5 mg/dL 12/24/2022 7:23 AM [facility] BUN/Creatinine Ratio 23 10.0 - 25.0 Ratio 12/24/2022 7:23 AM [facility] Blood specimen (specimen) (Plasma/Serum) 12/24/2022 6:14 AM EDT 12/24/2022 6:43 AM EDT us Silvestre Juarez MD LAB BLOOD ORDERABLES Fin al Result HOSPITAL LAB See Below [address] [address] * (ABNORMAL) Hemoglobin A1c with Estimated Average Glucose (12/18/2022 3:24 AM EDT) Hemoglobin A1C 7.5(H) <5.7 % 12/18/2022 4:47 AM EDT [facility] Comment: A1c% Interpretation 5.7 - 6.0 Increase risk of diabetes 6.1 - 6.4 Higher risk of diabetes > or = 6.5 Consistent with diabetes Diabetes Care, 33(Supp 1):S1-S61, 2010 Estimated Average Glucose 169 mg/dL 12/18/2022 4:47 AM EDT [facility] Blood specimen (specimen) Blood specimen / Unknown 12/18/2022 3:24 AM EDT 12/18/2022 3:40 AM EDT us Chiquita L Buydos TELEGRAPH MESSENGER LAB BLOOD ORDERABLES Final R esult HOSPITAL LAB See Below [facility] [address] [place] [address] from Last 3 Months or Most Recently Relevant to Health Maintenance [place] [address] [place] [phone] [facility] MEDICARE PART A & B Advance Directives * Full Code (Latest Code Status on File) Date Activated Date Inactivated Comments 12/18/2022 2:12 AM Question Answer Comments Decision Thoroughly Discussed with: Unable to Di scuss Care Teams Milk Pasteurizer Relationship Specialty Start Date End Date Patricia Nicole MD [address] [facility] [place] [id number] PCP - General Internal Medicine 12/18/22
--- OUTSIDE RECORDS SUMMARY | 2024-10-13 10:06 | XMS_ITS | Clinical Summary ---
Author Organization [facility] Address [address] [place] [phone] Phone Care Team Providers Care Automatic Lathe Operator Name Role Phone Silvia Corrales MD Primary Care Provider [phone] Encounters Date Type Department Care Team Description 10/02/2024 7:37 AM EDT - 10/02/2024 11:59 PM EDT Hospital Encounter [facility] Laboratory [address] [place] [address] Silvia Corrales MD Discharge Disposition: Home or Self Care 10/02/2024 Transcribe Orders [facility] Processing [address] [place] [address] Silvia Corrales MD Hydronephrosis with renal and ureteral calculous obstruction (Primary Dx); Combined systolic and diastolic heart failure, unspecified HF chronicity; Urinary tract infection without hematuria, site unspecified 09/29/2024 10:06 AM EDT - 09/29/2024 11:59 PM EDT Hospital Encounter [facility] [address] [place] [address] Silvia Corrales MD Discharge Disposition: Home or Self Care 09/29/2024 Transcribe Orders [facility] Specimen Processing [address] [place] [address] Silvia Corrales MD Hydronephrosis with renal and ureteral calculous obstruction (Primary Dx) 09/25/2024 6:03 AM EDT - 09/25/2024 11:59 PM EDT Hospital Encounter [facility] [address] [place] [address] Silvia Corrales MD Discharge Disposition: Home or Self Care 09/25/2024 Transcribe Orders [facility] Specimen Processing [address] [place] [address] Silvia Corrales MD Hydronephrosis, unspecified hydronephrosis type (Primary Dx) 09/22/2024 8:15 PM EDT - 09/22/2024 11:59 PM EDT Hospital Encounter [facility] Laboratory [address] [place] [address] Silvia Corrales MD Discharge Disposition: Home or Self Care 09/22/2024 Transcribe Orders [facility] Specimen Processing [address] [place] [address] Silvia Corrales MD Ureteral stone with hydronephrosis (Primary Dx); Arthritis; Sepsis due to Klebsiella; Acute renal failure, unspecified acute renal failure type 09/18/2024 10:38 AM EDT - 09/18/2024 11:59 PM EDT Hospital Encounter [facility] Laboratory [address] [place] [address] Silvia Corrales MD Discharge Disposition: Home or Self Care 09/18/2024 Transcribe Orders [facility] Specimen Processing [address] [place] [address] Silvia Corrales MD Screening for unspecified condition (Primary Dx) 09/18/2024 Transcribe Orders [facility] Specimen Processing [address] [place] [address] Silvia Corrales MD Screening for unspecified condition [...] included. SODIUM 138 133 - 146 mmol/L [facility] POTASSIUM 5.0 3.3 - 5.1 mmol/L [facility] CHLORIDE 101 96 - 108 mmol/L [facility] CO2 25 21 - 35 mmol/L [facility] BUN 15 6 - 19 mg/dL [facility] CREATININE 1.10 0.5 - 1.5 mg/dL [facility] GLUCOSE 209(H) 70 - 99 mg/dL [facility] ALBUMIN 3.5(L) 3.9 - 4.8 g/dL [facility] TOTAL PROTEIN 6.9 6.5 - 8.0 g/dL [facility] CALCIUM 8.8 8.4 - 10.3 mg/dL [facility] ALKALINE PHOSPHATASE 115 39 - 117 U/L [facility] TOTAL BILIRUBIN 0.6 0.0 - 1.2 mg/dL [facility] AST 41(H) 0 - 37 U/L [facility] ALT 22 0 - 40 U/L [facility] GLOBULIN 3.4 1 - 4.8 g/dL [facility] EGFR 49(L) >59 mL/min/1.7 3m2 [facility] Comment:Estimated glomerular filtration rate calculated using the CKD-EPI refit equation. ANION GAP 17 10 - 20 mmol/L [facility] Blood 10/02/2024 6:10 AM EDT 10/02/2024 7:53 AM EDT us Silvia Corrales MD LAB BLOOD ORDERABLES Final Res ult [facility] [address] [place] [address] * (ABNORMAL) CBC (10/02/2024 6:10 AM EDT) Only the most recent of5 resultswithin the time period is included. WBC 5.86 4.00 - 11.00 K/uL [facility] RBC 3.27(L) 4.00 - 5.20 M/uL [facility] HGB 8.2(L) 12.0 - 16.0 g/dL [facility] HCT 28.3(L) 36.0 - 46.0 % [facility] PLT 255 150 - 450 K/uL [facility] MCV 86.5 80.0 - 100.0 fL [facility] MCH 25.1(L) 27.0 - 31.0 pg [facility] MCHC 29.0(L) 32.0 - 36.0 g/dL [facility] RDW 19.9(H) 11.5 - 14.5 % [facility] MPV 9.7 8.4 - 12.0 fL [facility] NRBC 0.00 0.00 /100 WBCs [facility] ABSOLUTE NRBC 0.00 0.00 K/uL [facility] Blood 10/02/2024 6:10 AM EDT 10/02/2024 7:53 AM EDT Silvia Corrales MD LAB BLOOD ORDERABLES Final Res ult Performing Organization Address City/[facility]/ZIP Co de Phone Number [address] [address] * (ABNORMAL) Iron and iron binding capacity (09/22/2024 8:23 PM EDT) IRON 23(L) 30 - 160 ug/dL [facility] IRON BINDING CAPACITY 264 228 - 428 ug/dL [facility] TRANSFERRIN SATURAT. 9(L) 15 - 50 % [facility] Blood 09/22/2024 8:23 PM EDT 09/22/2024 8:25 PM EDT us Silvia Corrales MD LAB BLOOD ORDERABLES Final Res ult [facility] [address] [place] [address] * Ferritin (09/22/2024 8:23 PM EDT) FERRITIN 131 13 - 150 ug/L [facility] Blood 09/22/2024 8:23 PM EDT 09/22/2024 8:25 PM EDT us Silvia Corrales MD LAB BLOOD ORDERABLES Final Res ult [facility] [address] [place] [address] from Last 3 Months Insurance MEDICARE PART A & B [facility] MEDICARE SUPPLEMENT MEDICARE PART A & B [id number] [place] [address] MEDICARE SUPPLEMENT MEDICARE PART A & B [facility] MEDICARE SUPPLEMENT MEDICARE PART A & B MEDICARE SUPPLEMENT MEDICARE PART A & B Member Subscriber Plan / Payer ( fective 2009-) Name:Abena Aminah Member ID:[id number] Relation to Subscriber:Self Name:GueraAminah restrepo Subscriber ID:[id number] Payer ID:[id number] Group ID:Not on file Type:Medicare Address: [employer] [address] MEDICARE SUPPLEMENT MEDICARE PART A & B [facility] MEDICARE SUPPLEMENT Care Teams Automatic Lathe Operator Relationship Specialty Start Date End Date Silvia Corrales MD [address] [place] [phone] PCP - General Internal Medicine 09/18/24 Additional Source Comments The information contained in this document represents components of the legal health record. It is not the complete legal health record.[facility]
--- OUTSIDE RECORDS SUMMARY | 2024-10-13 10:06 | XMS_ITS | Clinical Summary ---
Author Organization [facility] Address [address] [place] [address] [place] [place] [phone] Phone Care Team Providers Care Ticket Seller Name Role Phone Unavailable Primary Care Provider [...] EDT Telemedicine [facility] [address] [place] [phone] Gume Moyer MD Other acute kidney failure (HCC) (Primary Dx); Stage 3a chronic kidney disease (HCC) 09/23/2024 Orders Only [facility] [address] [phone] Valarie Cazares [place] 09/22/2024 Office Communication [facility] [address] [phone] [facility] 09/18/2024 Telephone [facility] [address] [phone] Valarie Cazares [place] 08/25/2024 1:00 PM EDT Office Visit [facility] [address] [place] [facility] [phone] Gume Moyer MD Chronic kidney disease stage 2 (Primary Dx); Persistent proteinuria 08/16/2024 Orders Only [facility] [address] [phone] Gume Moyer MD from Last 3 Months [...] Office Visit [facility] [address] [place] [phone] Gume Moyer MD [address] [phone] 08/31/2025 1:15 PM EDT Office Visit [facility] the [address] [place] [phone] Gume Moyer MD [address] [phone] Health Maintenance Due Date Last [...] Chloride 105.0 99.0 - 108.0 eGFR Non-Afr Martiniquais 23 09/16/2024 us Historical Provider MD LAB [...] Moyer MD LAB URINE ORDERABLES Final Re [facility] Performing Organization Address [facility] de Phone Number [place] See order comments [place] [address] * (ABNORMAL) Albumin, urine, random (08/16/2024 11:56 [...] Moyer MD LAB URINE ORDERABLES Final Re [facility] Performing Organization Address [facility] de Phone Number [place] See order comments [place] [address] * (ABNORMAL) Urinalysis with microscopic (08/16/2024 11:56 AM EDT) Color Urine Yellow See orde r comments Appearance Urine Clear See order comments pH Urine 8.0 5.0 - 9.0 See order comments Glucose Urine Negative Negative mg/dL See order comments Blood, Urine Negative Negative See ord er comments Specific [place] Urine 1.010 1.005 - 1.025 See order [...] ORDERABLES Final Re sult Performing Organization Address [facility] de Phone Number [facility] See order comments [place] [address] * Creatinine (08/16/2024 11:37 AM EDT) Creatinine Serum 0.82 0.5 - 1.4 mg/dL See order comments eGFR (Calc) >60 See orde r comments Comment: Chronic Kidney Disease: Estimated GFR < 60 mL/min/1.73m2 Severe Kidney Disease: Estimated GFR < 15 mL/min/1.73m2 08/16/2024 11:3 7 AM EDT 08/16/2024 11:37 AM EDT us Gume Moyer MD LAB BLOOD ORDERABLES Final Re sult Performing Organization Address [facility] de Phone Number [place] See order comments [place] [address] * (ABNORMAL) BUN (08/16/2024 11:37 AM EDT) BUN 26(H) 9 - 16 mg/dL See order comments 08/16/2024 11:3 7 AM EDT 08/16/2024 11:37 AM EDT us Gume Moyer MD LAB BLOOD ORDERABLES Final Re sult Performing Organization Address [facility] de Phone Number [place] See order comments [place] [address] * Calcium (08/16/2024 11:37 AM EDT) Calcium 9.7 8.4 - 10.2 mg/dL See order comments 08/16/2024 11:3 7 AM EDT 08/16/2024 11:37 AM EDT us Gume Moyer MD LAB BLOOD ORDERABLES Final Re sult [place] See order comments [place] [address] * (ABNORMAL) Electrolyte panel (08/16/2024 11:37 AM [...] order comments [place] [address] from Last 3 Months Insurance [facility] Medicare [facility] Medicare
== END 2024-10-13 10:44 | disposition home or self-care (01) ==
PROVIDERS: PCP Internal Medicine; Visit Provider Urology
DX: N20.0 Calculus of kidney (principal); R39.9 Unspecified symptoms and signs involving the genitourinary system; Z96.0 Presence of urogenital implants
CPT/HCPCS: 52310

== ENCOUNTER → 2024-10-13 09:18 | Outpatient (BNVA) | payer MEDICARE, SELFPAY | PROVIDERS: PCP Internal Medicine; Visit Provider Urology | DX: N20.0 Calculus of kidney (principal); Z96.0 Presence of urogenital implants; Z87.440 Personal history of urinary (tract) infections | CPT/HCPCS: 52310; 81003; 99212 ==

== ENCOUNTER 2024-10-13 11:27 | Outpatient (AMB) | payer MEDICARE, SELFPAY ==
--- OUTSIDE RECORDS SUMMARY | 2024-03-28 04:45 | XMS_ITS ---
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 Operator Name Role Phone Bonnie DUVALL, Patricia De La Garza Primary Care Provider Un available Estuardo Mccarthy Unavailable [phone] Encounters Encounter Location Date Provider Diagnosis [address] [address] 03/28/2024 Estuardo Mccarthy Plan Of Treatment Next Appt Details Provider Name:Estuardo Mccarthy , 12/30/2024 03:15:00 PM, [address] [place] [address], [phone], Progress Notes * Aminah KRAFT PDOB:[birth year] (84 yo F)Acc No.[id number]:03/28/2024 Progress Note Patient: Bere BOTELLO Aminah Aury Provider: Wisam Mccarthy DPM :1940 A ge:83 Y S ex:Female Date:03/28/2024 Address:[address] [place] [address] [id number] Pcp:Amada Ferro Subjective: * Chief Complaints: * * Medical History: Objective: * Vitals: Assessment: Plan: * Treatment: * Images: * The named appointment provid er may or may not be the originator of this progress note, and it is not deemed complete until electronically signed by the appointment provider. Sign off status: Pending * Provider: Wisam Mccarthy DPM Date: 0 03/28/2024 Generated for Printi ng/Faxing/eTransmitting on: 0 10/13/2024 12:44 PM EDT
[2024-10-13 11:30] VITALS: BP 122/70; PULSE 73; O2SAT 98; BMI 29.7
--- NOTE | 2024-10-13 11:30 | MHC.PC.OV ---
Vital Signs 10/13/24 11:30 Height 5 ft Weight 152 lb BMI 29.7 BP 122/70 Blood Pressure Location Lt brachial Position Sitting Pulse 73 Pulse Source Pulse Oximeter Pulse Oximetry (%) 98 Intake Visit Reasons: 5m follow up Allergies latex (Latex) Allergy (Severe, Verified 10/13/24 23:49) RASH cephalexin (CEPHALEXIN) Allergy (Intermediate, Verified 10/13/24 23:49) SWELLING adhesive tape (Adhesive Tape) Allergy (Mild, Verified 10/13/24 23:49) CONTACT DERMATITIS empagliflozin (From Jardiance) Adverse Reaction (Severe, Verified 10/13/24 23:49) Dizziness flecainide (From Tambocor) Adverse Reaction (Severe, Verified 10/13/24 23:49) HEART RACING Biaxin Adverse Reaction (Intermediate, Verified 10/13/24 23:49) plapitations lisinopril (LISINOPRIL) Adverse Reaction (Intermediate, Verified 10/13/24 23:49) cough, nausea bacitracin (From Cortisporin) Adverse Reaction (Mild, Verified 10/13/24 23:49) EYE IRRITATION hydrocortisone (From Cortisporin) Adverse Reaction (Mild, Verified 10/13/24 23:49) EYE IRRITATION neomycin (From Cortisporin) Adverse Reaction (Mild, Verified 10/13/24 23:49) EYE IRRITATION nitrofurantoin Adverse Reaction (Verified 10/13/24 23:49) Loss of Appetite Medication List - Last Reconciled 10/13/24 by Patricia Nicole MD acetaminophen ER (Tylenol Arthritis Pain) 650 mg PO Q8H apixaban (Eliquis) 2.5 mg PO BID coenzyme Q10 (CoQ-10) 100 mg PO DAILY ferrous sulfate 325 mg PO DAILY furosemide 20 mg PO DAILY gabapentin 300 mg PO BEDTIME 3 months insulin glargine (Lantus Solostar U-100 Insulin) 5 units subcut DAILY insulin lispro (Humalog KwikPen U-200 Insulin) 2 - 12 units subcut TID PRN lidocaine HCl 4% (Aspercreme (lidocaine HCl)) 1 appl topical QID PRN loratadine (Allergy Relief (loratadine)) 10 mg PO DAILY losartan 25 mg PO DAILY metoprolol succinate ER 25 mg PO DAILY pantoprazole 40 mg PO DAILY pen needle, diabetic As directed QID ac and hs polyethylene glycol 3350 (Miralax) 17 grams PO BID rosuvastatin 5 mg PO MOWEFR 90 days sennosides (Natural Senna Laxative) 8.6 mg PO DAILY simethicone (Gas Relief (simethicone)) 125 mg PO BID PRN spironolactone 25 mg PO DAILY tramadol 50 mg PO DAILY PRN vit C,A-Rp-urlzd-lutein-zeaxan 250-90-40-1 mg (PreserVision AREDS-2) 1 tab PO BID Tobacco use date assessed: 05/14/24 Fall risk assessment: No Falls in past year Last assessed Fall Risk: 10/13/24 Dental Screening Dental Screen Date: 05/14/24 HPI 5m follow up HPI Details 84-year-old lady with history of recent hospitalization for UTI with acute kidney injury on 09/10/2024, due to a 5 mm right distal obstructing stone and and an 11 mm right kidney stone s/p right ureteral stent on 09/11/2024 placement, here today for follow-up on her diabetes mellitus dyslipidemia. Patient states that she has been feeling better, did not a urinary symptoms, no nausea, no vomiting, afebrile and has good appetite. - Type 2 Diabetes Mellitus: Metformin was discontinued during admission due to acute kidney injury and is currently on Lantus at 12 units given in the morning and sliding scale insulin coverage . Patient's daughter states however that patient has only been giving herself 6 units of Lantus. Recent blood glucose levels ranged from 150 to 320 mg/dL, with an A1c increase from 6.7% to 7.3%. - Acute Kidney Disease: Significant decline in kidney function due to sepsis from UTI due to ureteral stone , with GFR dropping to 10 mL/min/1.73m?, now improving to 45mL/min/1.73m?on last lab done 10/10/24 - Hypertension: Managed with losartan and metoprolol, with good control of blood pressure - Gastroesophageal Reflux Disease: Managed with pantoprazole, patient however states that she hardly gets heartburn episodes now andis asking whether to continue taking it - Constipation: Managed with MiraLAX and Senna. -history of congestive heart - Managed with furosemide and spironolactone. - Macular Degeneration: Under regular ophthalmologic care. - for dyslipidemia, stable and could trying on rosuvastatin 5 mg taken 1 tablet 3 times a week -takes gabapentin 300 mg at bedtime for her neuropathy, needs a refill [facility] Medical History (Updated 10/14/24 @ 00:23 by Patricia Nicole MD) Type 2 diabetes mellitus with diabetic neuropathy, with long-term current use of insulin History of CHF (congestive heart failure) Pacemaker Chronic combined systolic and diastolic CHF (congestive heart failure) Right nephrolithiasis Recurrent UTI (urinary tract infection) Hiatal hernia Gastritis Opioid-induced constipation Degenerative disc disease, thoracic Degenerative disc disease, lumbar [place] (hard of hearing) Wears hearing aid in both ears Uses walker Hx of cardiac pacemaker (10/06/23) Age-related osteoporosis with current pathological fracture, vertebra(e), initial encounter for fracture Compression fracture of lumbar spine, non-traumatic Nontraumatic compression fracture of thoracic vertebra Moderate aortic stenosis Diabetes mellitus Congestive heart failure Hypertension Paroxysmal atrial fibrillation Cholelithiasis Renal cyst Pulmonary hypertension Non-rheumatic mitral regurgitation Permanent atrial fibrillation Microcytic anemia Atrophic vaginitis Osteoarthritis of knees, bilateral Essential hypertension Dyslipidemia Surgical History History of cardiac radiofrequency ablation (RFA) Hx of cardiac catheterization History of esophagogastroduodenoscopy (EGD) (~10/2022) History of lumbar discectomy History of lobectomy of lung History of hysterectomy History of total right knee replacement (TKR) Lumbar radiculopathy Family History Father Diabetes mellitus Mother Diabetes mellitus Myocardial infarction Sister Cancer Sister No problems noted. Son No problems noted. Daughter No problems noted. Social History Household Members: Family Housing: House Are you a primary menagerie caretaker to a significant other at home: No Do you presently have visiting nurse or other home services: No Unable to assess alcohol history related to: Unable to respond Alcohol intake: never Patient Tobacco Use Status: Former Tobacco user Tobacco use type: Cigarette e-Cigarette/Vaping Use: Never Used Advance Directives Date on File: 06/20/23 service: No Current occupational status: retired Cognitive needs: No Hearing needs: Yes Vision needs: Yes Questionnaire Thrive Questionnaire Date Thrive assessed: 10/13/24 I am a: Patient What is your living situation today?: I have a steady place to live Within the past 12 months, did the food you bought not last and you didn't have the money to get more?: Never true Within the past 12 months, did you worry whether your food would run out before you got money to buy more?: Never true Do you have trouble paying for medicines?: No Do you have trouble getting transportation to medical appointments?: No Do you have trouble paying your heating and electricity bill?: No Do you have trouble taking care of your child, family member or friend?: No Do you have trouble with day-to-day activities such as bathing, preparing meals, shopping, managing finances, etc.?: Yes Are you currently unemployed and looking for a job?: No Are you interested in more education?: No Please select the resources that you would like help with: None Currently or been in a relationship where the following occur: No concerns reported THRIVE Score: 0 INGRID-7 AMB Questionnaire INGRID-7 Date INGRID - 7 assessed: 05/14/24 Source: Developed by Drs. Chaz Mayer, Lily Ruggiero, Aayush Severino and colleagues, with an educational melinda from [employer]. Review of Systems Const All systems reviewed & are unremarkable except as noted in HPI and below Reports no additional complaints Eyes Reports no additional complaints ENT Reports no additional complaints Card Reports no additional complaints Resp Reports no additional complaints GI Reports as per HPI, Denies abdominal pain, Denies bloating and Denies heartburn Reports as per HPI, Denies hematuria and Denies difficulty voiding Musc Reports as per HPI Skin/Breast Reports system reviewed and no additional complaints, except as documented Neuro Reports no additional complaints, Reports as per HPI and Denies confusion Psych Reports no additional complaints and Denies confusion Endo Reports as per HPI Alejandro/Lymph Reports no additional complaints Aller/Immun Reports no additional complaints Physical exam (Primary Care) Vital Signs: Last Vital Signs Pulse 73 10/13/24 11:30 BP 122/70 10/13/24 11:30 Pulse Ox 98 10/13/24 11:30 BMI result Body Mass Index 29.7 Tobacco/Smoking Status: Tobacco use Status Tobacco use date assessed 05/14/24 10/13/24 11:32 Patient Tobacco Use Status Former Tobacco user 10/13/24 11:32 Tobacco use type Cigarette 10/13/24 11:32 e-Cigarette/Vaping Use Never Used 10/13/24 11:32 Thrive Assessment: Date of Thrive Assessment Date Thrive assessed 10/13/24 10/13/24 11:32 Currently or been in a relationship where the following occur: No concerns reported Const Other: Alert oriented x3, no acute distress noted ambulatory with walker,daughter accompanying patient General: No confusion Orientation/consciousness: patient oriented x3 and No confusion HENMT Ears: hearing grossly impaired Mouth: Normal oral and palatal mucosa present and moist mucous membranes Eyes General: appearance normal, both eyes and all related structures Neck Neck: Yes full ROM, Yes no lymphadenopathy and Yes supple Resp Auscultation: clear to auscultation bilaterally Cardio Other: S1-S2 present regular rate and rhythm, systolic murmur heard for base GI Other: obese, Normal bowel sounds, soft, nontender, with no mass palpated Back/Spine/Pelvis Other: Slightly kyphotic, no tenderness on palpation over paraspinal muscles or over thoracic or lumbar spine area Neuro General: patient oriented x3, tone normal, moves all extremities and No confusion Extrem General: Yes full ROM, Yes no joint enlargement, Yes no clubbing, cyanosis or edema and Yes no calf tenderness Psych Appearance: grossly normal and well kempt Mental Status: mental status grossly normal Speech and movement: Normal speech and movement present Affect: normal affect Results AMB Urinalysis, Automated UA Leukoctes 0 Sofía/uL Last Edit by Shirley Hernandez on 10/13/24 12:07 UA Nitrite Negative Last Edit by Shirley Hernandez on 10/13/24 12:07 UA Urobilinogen 3.5 mg/dL Last Edit by Shirley Hernandez on 10/13/24 12:07 UA Protein 0 mg/dL Last Edit by Shirley Hernandez on 10/13/24 12:07 UA pH 6.0 Last Edit by Shirley Hernandez on 10/13/24 12:07 UA Blood 10 Stewart/uL Last Edit by Shirley Hernandez on 10/13/24 12:07 UA Specific Welch 1.015 Last Edit by Shirley Hernandez on 10/13/24 12:07 UA Ketone Negative Last Edit by Shirley Hernandez on 10/13/24 12:07 UA Bilirubin 0 mg/dL Last Edit by Shirley Hernandez on 10/13/24 12:07 UA Glucose 0 mg/dL Last Edit by Shirley Hernandez on 10/13/24 12:07 Results Reviewed Results Reviewed: suki: Aminah Kraft Age/Sex: 84/F : 1940 Unit#: [id number] Attend Dr: Patricia Nicole MD Re10/10/24 Status: DEP REF Location: [facility] Disch: SPEC : [id number] ANALISA: 10/10/24 STATUS: COMP REQ : [id number] RECD: 10/10/[address]: Patricia Nicole MD COMP: 10/10/24 ENTERED: 10/10/24-[address]: ORDERED: Met Prof Fast, IRON PROF, AST, ALT, Lipid Panel, Vitamin D 25-OH Test Result Flag Reference Sodium 138 135-145 mmol/L Potassium 5.1 # 3.3-5.1 mmol/L CL 101 96-108 mmol/L CO2 27 22-29 mmol/L Gap 15 12-20 BUN 19 H 9-16 mg/dL Creat 1.14 0.5-1.4 mg/dL eGFR 45 Chronic Kidney Disease: Estimated GFR < 60 mL/min/1.73m2 Severe Kidney Disease: Estimated GFR < 15 mL/min/1.73m2 FBS 170 H 60-99 mg/dL A fasting glucose of 126 mg/dl or greater on more than one occasion is considered diagnostic of diabetes. CA 9.3 # 8.4-10.2 mg/dL Iron 34 30-160 mcg/dL TIBC 292 228-428 mcg/dL Saturation 12 L 15-50 % UIBC 258 ug/dL AST (GOT) 26 5-31 U/L ALT (GPT) < 6 0-31 U/L Triglyceride 109 <150 mg/dL Desirable Triglyceride: less than 150 mg/dL Borderline High Triglyceride 150-199 mg/dL High Triglyceride: 200-499 mg/dL Very High Triglyceride: greater than or equal to 5OO mg/dL Cholesterol 111 <200 mg/dL Desirable Cholesterol: less than 200 mg/dL Borderline High Cholesterol: 200-239 mg/dL High Cholesterol: greater than 239 mg/dL LDL Calculated 56 <100 mg/dL Desirable LDL: less than 100 mg/dL Near Optimal/Above Optimal LDL: 110-129 mg/dL Borderline High LDL: 130-159 mg/dL High LDL: 160-189 mg/dL Very High LDL: greater than or equal to 190 mg/dL HDL 34 L >40 mg/dL Desirable HDL: greater than 40 mg/dL Note: This HDL assay may give artificially low results in patients with liver disease. Vitamin D 25-OH 36.4 >30 ng/mL Health Based Reference Values* < 20 ng/mL Deficient 20-30 ng/mL Insufficient > 30 ng/mL Sufficient Laboratory Tests 05/10/24 05/10/24 10/10/24 08:42 09:32 08:10 Estimat Average Glucose 148 163 Hemoglobin A1c % 6.8 H 7.3 H Urine Creatinine 80.64 Urine Microalbumin 97.0 Microalb/Creat Ratio 120.2 H Coding Level of Care Code Est Pt Level 4 (91445) Diagnoses Type 2 diabetes mellitus with diabetic neuropathy, with long-term current use of insulin E11.40; Z79.4 Dyslipidemia E78.5 Microcytic anemia D50.9 Assessment & Plan Assessment & Plan (1) Type 2 diabetes mellitus with diabetic neuropathy, with long-term current use of insulin: Code(s): E11.40 - Type 2 diabetes mellitus with diabetic neuropathy, unspecified; Z79.4 - intermediate accountant (current) use of insulin Category: Medical (2) Dyslipidemia: Code(s): E78.5 - Hyperlipidemia, unspecified Category: Medical (3) Microcytic anemia: Code(s): D50.9 - Iron deficiency anemia, unspecified Category: Medical Plan will continue with sliding scale coverage with Humalog and Lantus at 12 units subQ in a.m., with close monitoring of blood glucose levels and dose adjustments as necessary. Advised to maintain adequate hydration and avoiding nephrotoxic medications, with regular monitoring of kidney function. The urinary tract infection and sepsis have been treated, but ongoing vigilance for recurrent infections is advised. Dietary modifications, including increased water intake with lemon juice, are recommended to prevent further kidney stone formation. Hypertension will be managed with losartan and metoprolol, with regular blood pressure monitoring. Gastroesophageal reflux disease will be managed with pantoprazole, with adjustments based on symptom control. Constipation will be managed with MiraLAX and Senna, with adjustments as needed based on bowel movement regularity. Continue with furosemide 20 mg daily lingering and spironolactone 25 mg daily. Regular ophthalmologic care will be maintained for macular degeneration, with follow-up appointments scheduled. Will see her back for follow-up in 3 months, after fasting labs done Patient was informed and verbally consented to the use of an ambient scribe for clinic note documentation during this visit. Orders: Orders Hemoglobin A1c 01/03/25 D50.9 - Iron deficiency anemia, unspecified, E11.40 - Type 2 diabetes mellitus with diabetic neuropathy, unspecified, E78.5 - Hyperlipidemia, unspecified, Z79.01 - intermediate accountant (current) use of anticoagulants, Z79.4 - residential (current) use of insulin Alanine Aminotransferase 01/03/25 D50.9 - Iron deficiency anemia, unspecified, E11.40 - Type 2 diabetes mellitus with diabetic neuropathy, unspecified, E78.5 - Hyperlipidemia, unspecified, Z79.01 - intermediate accountant (current) use of anticoagulants, Z79.4 - intermediate accountant (current) use of insulin Vitamin D 25-OH Total 01/03/25 D50.9 - Iron deficiency anemia, unspecified, E11.40 - Type 2 diabetes mellitus with diabetic neuropathy, unspecified, E78.5 - Hyperlipidemia, unspecified, Z79.01 - residential (current) use of anticoagulants, Z79.4 - residential (current) use of insulin Aspartate Amino Transferase 01/03/25 D50.9 - Iron deficiency anemia, unspecified, E11.40 - Type 2 diabetes mellitus with diabetic neuropathy, unspecified, E78.5 - Hyperlipidemia, unspecified, Z79.01 - residential (current) use of anticoagulants, Z79.4 - residential (current) use of insulin Basic Metabolic Panel Fasting 01/03/25 D50.9 - Iron deficiency anemia, unspecified, E11.40 - Type 2 diabetes mellitus with diabetic neuropathy, unspecified, E78.5 - Hyperlipidemia, unspecified, Z79.01 - residential (current) use of anticoagulants, Z79.4 - residential (current) use of insulin Lipid Panel 01/03/25 D50.9 - Iron deficiency anemia, unspecified, E11.40 - Type 2 diabetes mellitus with diabetic neuropathy, unspecified, E78.5 - Hyperlipidemia, unspecified, Z79.01 - residential (current) use of anticoagulants, Z79.4 - residential (current) use of insulin Hemoglobin and Hematocrit 01/03/25 D50.9 - Iron deficiency anemia, unspecified, E11.40 - Type 2 diabetes mellitus with diabetic neuropathy, unspecified, E78.5 - Hyperlipidemia, unspecified, Z79.01 - intermediate accountant (current) use of anticoagulants, Z79.4 - intermediate accountant (current) use of insulin Medications: Changed From gabapentin 300 mg (3 x 100 mg) PO BEDTIME 90 caps 1RF To gabapentin 300 mg PO BEDTIME 90 caps 2RF 3 months
== END 2024-10-13 12:25 | disposition home or self-care (01) ==
LOC: HO.HMCC 11:28
PROVIDERS: PCP Internal Medicine; Visit Provider Internal Medicine
DX: E11.40 Type 2 diabetes mellitus with diabetic neuropathy, unspecified (principal); Z79.4 Long term (current) use of insulin; E78.5 Hyperlipidemia, unspecified; D50.9 Iron deficiency anemia, unspecified

== ENCOUNTER → 2024-10-14 12:00 | Outpatient (BNV) | payer MEDICARE, SELFPAY | PROVIDERS: PCP Internal Medicine; Visit Provider Internal Medicine | DX: E11.9 Type 2 diabetes mellitus without complications (principal); Z79.4 Long term (current) use of insulin; D50.9 Iron deficiency anemia, unspecified; M54.16 Radiculopathy, lumbar region | CPT/HCPCS: G0180 ==

== ENCOUNTER 2024-11-01 07:57 | Outpatient (REF) | payer MEDICARE, SELFPAY ==
--- OUTSIDE RECORDS SUMMARY | 2024-11-01 07:59 | XMS_ITS | Clinical Summary ---
Author Organization [facility] Address [address] [address] [place] [place] [phone] Phone Care Team Providers Care Purchasing Department Clerk Name Role Phone Unavailable Primary Care [...] EDT Telemedicine [facility] [address] [place] [phone] Gume Moyer MD Other acute kidney failure (HCC) (Primary Dx); Stage 3a chronic kidney disease (HCC) 09/23/2024 Orders Only [facility] [address] [phone] Valarie Cazares MA 09/22/2024 Office Communication [facility] [address] [phone] Yuly Malia 09/18/2024 Telephone [facility] [address] [phone] Valarie Cazares MA 08/25/2024 1:00 PM EDT Office Visit [facility] [address] [place] [phone] Gume Moyer MD Chronic kidney disease stage 2 (Primary Dx); Persistent proteinuria 08/16/2024 Orders Only [facility] [address] [phone] Gume Moyer MD from Last 3 Months [...] Team (Late st Contact Info) Description 11/06/2024 1:00 PM EDT Office Visit [facility] [address] [place] [phone] Gume Moyer MD [address] [phone] 08/31/2025 1:15 PM EDT Office Visit [facility] [address] [place] [phone] Gume Moyer MD [address] [phone] Health Maintenance Due Date Last [...] Chloride 105.0 99.0 - 108.0 eGFR Non-Afr Brazilian 23 09/16/2024 us Historical Provider MD LAB [...] Moyer MD LAB URINE ORDERABLES Final Re [facility] Performing Organization Address [facility] de Phone Number [place] See order comments [place] [address] * (ABNORMAL) Albumin, urine, random (08/16/2024 11:56 [...] Moyer MD LAB URINE ORDERABLES Final Re [facility] Performing Organization Address [facility] de Phone Number [place] See order comments [place] [address] * (ABNORMAL) Urinalysis with microscopic (08/16/2024 11:56 AM EDT) Color Urine Yellow See orde r comments Appearance Urine Clear See order comments pH Urine 8.0 5.0 - 9.0 See order comments Glucose Urine Negative Negative mg/dL See order comments Blood, Urine Negative Negative See ord er comments Specific [place] Urine 1.010 1.005 - 1.025 See order [...] ORDERABLES Final Re sult Performing Organization Address [facility] de Phone Number [facility] See order comments [place] [address] * Creatinine (08/16/2024 11:37 AM EDT) Creatinine Serum 0.82 0.5 - 1.4 mg/dL See order comments eGFR (Calc) >60 See orde r comments Comment: Chronic Kidney Disease: Estimated GFR < 60 mL/min/1.73m2 Severe Kidney Disease: Estimated GFR < 15 mL/min/1.73m2 08/16/2024 11:3 7 AM EDT 08/16/2024 11:37 AM EDT us Gume Moyer MD LAB BLOOD ORDERABLES Final Re sult Performing Organization Address [facility] de Phone Number [place] See order comments [place] [address] * (ABNORMAL) BUN (08/16/2024 11:37 AM EDT) BUN 26(H) 9 - 16 mg/dL See order comments 08/16/2024 11:3 7 AM EDT 08/16/2024 11:37 AM EDT us Gume Moyer MD LAB BLOOD ORDERABLES Final Re sult Performing Organization Address [facility] de Phone Number [place] See order comments [place] [address] * Calcium (08/16/2024 11:37 AM EDT) Calcium 9.7 8.4 - 10.2 mg/dL See order comments 08/16/2024 11:3 7 AM EDT 08/16/2024 11:37 AM EDT us Gume Moyer MD LAB BLOOD ORDERABLES Final Re sult [place] See order comments [place] [address] * (ABNORMAL) Electrolyte panel (08/16/2024 11:37 AM [...] order comments [place] [address] from Last 3 Months Insurance [facility] Medicare [facility] Medicare
[2024-11-01 11:29] LABS: MANUAL DIFF FLAG NO
[2024-11-01 11:31] LABS: Appearance Urine Clear; Glucose Urine UA Negative (Negative); PH 6.5 (5.0-9.0); Specific Gravity - Urine 1.010 (1.005-1.025); UMIC TRIGGER UA YES
[2024-11-01 11:32] LABS: Hematocrit 33.9 % (37.0-47.0); Hemoglobin 10.6 g/dl (12.0-16.0); Imm Gran Abs Auto 0.02 X10*3/uL (0.00-0.03); Imm Gran Pct Auto 0.2 % (0.0-0.4); Lymphocytes Absolute Auto 1.7 X10*3/uL (1.2-4.9); Mean Corpuscular HGB Conc 31.3 g/dl (31.0-35.0); Mean Corpuscular Hemoglobin 26.1 pg (27.0-33.0); Mean Corpuscular Volume 83.5 fL (80.0-98.0); NRBC Abs Auto 0.000 X10*3/uL (0.0-0.012); NRBC Pct Auto 0.0 /100WBC (0.0-0.2); Platelet Count 283 X10*3/uL (160-400); Red Blood Count 4.06 X10*6/uL (4.20-5.50); White Blood Count 8.5 X10*3/uL (4.8-10.8)
[2024-11-01 11:53] LABS: Albumin Level 4.0 g/dL (3.5-5.0); Anion Gap 16 (12-20); Blood Urea Nitrogen 30 mg/dL (9-16); Calcium 10.5 mg/dL (8.4-10.2); Carbon Dioxide 27 mmol/L (22-29); Chloride 99 mmol/L (96-108); Estimated Glomerular Filt Rate 47; Magnesium 2.0 mg/dL (1.6-2.6); Potassium 4.6 mmol/L (3.3-5.1); Sodium 137 mmol/L (135-145)
[2024-11-01 11:56] LABS: Microalbum/Creatinine Ratio Ur 47.4 ug/mg cr (<30); Protein/Creatinine Ratio, Ur 0.22 (<0.2); Total Protein Urine Random 9 mg/dL (<12)
[2024-11-01 12:02] LABS: Parathyroid Hormone Intact 47.1 pg/mL (8.7-77.1)
== END 2024-11-01 07:58 | disposition home or self-care (01) ==
LOC: HO.HMGCLDS 07:57
PROVIDERS: PCP Internal Medicine; Visit Provider Internal Medicine Nephrology
DX: N17.9 Acute kidney failure, unspecified (principal); N18.31 Chronic kidney disease, stage 3a
CPT/HCPCS: 36415; 80051; 81001; 82040; 82043; 82306; 82310; 82565; 82570; 83735; 83970; 84100; 84156; 84520; 85025; 87086

== ENCOUNTER → 2024-11-01 23:59 | Outpatient (BNV) | payer MEDICARE, SELFPAY ==
--- NOTE | 2024-11-19 09:13 | A.OFFVIS_ITS ---
Intake Visit Reasons: Remote device check- [employer] Allergies latex (Latex) Allergy (Severe, Verified 10/13/24 23:49) RASH cephalexin (CEPHALEXIN) Allergy (Intermediate, Verified 10/13/24 23:49) SWELLING adhesive tape (Adhesive Tape) Allergy (Mild, Verified 10/13/24 23:49) CONTACT DERMATITIS empagliflozin (From Jardiance) Adverse Reaction (Severe, Verified 10/13/24 23:49) Dizziness flecainide (From Tambocor) Adverse Reaction (Severe, Verified 10/13/24 23:49) HEART RACING Biaxin Adverse Reaction (Intermediate, Verified 10/13/24 23:49) plapitations lisinopril (LISINOPRIL) Adverse Reaction (Intermediate, Verified 10/13/24 23:49) cough, nausea bacitracin (From Cortisporin) Adverse Reaction (Mild, Verified 10/13/24 23:49) EYE IRRITATION hydrocortisone (From Cortisporin) Adverse Reaction (Mild, Verified 10/13/24 23:49) EYE IRRITATION neomycin (From Cortisporin) Adverse Reaction (Mild, Verified 10/13/24 23:49) EYE IRRITATION nitrofurantoin Adverse Reaction (Verified 10/13/24 23:49) Loss of Appetite PFSH Medical History (Updated 11/19/24 @ 09:15 by Geoff Callahan MD) Pacemaker Type 2 diabetes mellitus with diabetic neuropathy, with long-term current use of insulin History of CHF (congestive heart failure) Chronic combined systolic and diastolic CHF (congestive heart failure) Right nephrolithiasis Recurrent UTI (urinary tract infection) Hiatal hernia Gastritis Opioid-induced constipation Degenerative disc disease, thoracic Degenerative disc disease, lumbar [place] (hard of hearing) Wears hearing aid in both ears Uses walker Hx of cardiac pacemaker (10/06/23) Age-related osteoporosis with current pathological fracture, vertebra(e), initial encounter for fracture Compression fracture of lumbar spine, non-traumatic Nontraumatic compression fracture of thoracic vertebra Moderate aortic stenosis Diabetes mellitus Congestive heart failure Hypertension Paroxysmal atrial fibrillation Cholelithiasis Renal cyst Pulmonary hypertension Non-rheumatic mitral regurgitation Permanent atrial fibrillation Microcytic anemia Atrophic vaginitis Osteoarthritis of knees, bilateral Essential hypertension Dyslipidemia Surgical History History of cardiac radiofrequency ablation (RFA) Hx of cardiac catheterization History of esophagogastroduodenoscopy (EGD) (~10/2022) History of lumbar discectomy History of lobectomy of lung History of hysterectomy History of total right knee replacement (TKR) Lumbar radiculopathy Family History Father Diabetes mellitus Mother Diabetes mellitus Myocardial infarction Sister Cancer Sister No problems noted. Son No problems noted. Daughter No problems noted. Social History Household Members: Family Housing: House Are you a primary health care attorney to a significant other at home: No Do you presently have visiting nurse or other home services: No Unable to assess alcohol history related to: Unable to respond Alcohol intake: never Patient Tobacco Use Status: Former Tobacco user Tobacco use type: Cigarette e-Cigarette/Vaping Use: Never Used Advance Directives Date on File: 06/20/23 service: No Current occupational status: retired Cognitive needs: No Hearing needs: Yes Vision needs: Yes Office Procedures Cardiac Device Check Cardiac Device Check Details: Date of service- 11/01/2024 ; Battery life 12.5 years; normal lead parameters; [place] 80%; no significant arrhythmias. Overall normal device function. [id number] Cardiac Device Interrogation, pacemaker Procedure code (CPT) selection complete Assessment & Plan Assessment & Plan (1) Pacemaker: Code(s): Z95.0 - Presence of cardiac pacemaker Category: Medical (2) Bradycardia: Code(s): R00.1 - Bradycardia, unspecified Category: Medical Plan x Coding Level of Care Code Procedure Only Diagnoses Pacemaker Z95.0 Bradycardia R00.1 CPT Codes Cardiac Device Check - Cardiac Device 12: [id number] Cardiac Device Interrogation, pacemaker ([id number])
== END ==
PROVIDERS: PCP Internal Medicine; Visit Provider Internal Medicine
DX: R00.1 Bradycardia, unspecified (principal); Z95.0 Presence of cardiac pacemaker
CPT/HCPCS: 93294

== ENCOUNTER 2024-12-23 14:07 | Outpatient (AMB) | payer MEDICARE, SELFPAY ==
[2024-12-23 14:10] VITALS: BP 138/80; PULSE 89; TEMP 36.8; O2SAT 94; BMI 31.4
--- NOTE | 2024-12-23 14:10 | MHC.OFFWIV ---
Intake Vital Signs 12/23/24 14:10 Height 5 ft Weight 161 lb BMI 31.4 BP 138/80 Blood Pressure Location Lt brachial Position Sitting Pulse 89 Pulse Source Pulse Oximeter Temp 98.3 F Temp Source Oral Pulse Oximetry (%) 94 Oxygen Delivery Method Room Air Intake Visit Reasons: ep uti check Patient Tobacco Use Status: Former Tobacco user Allergies latex (Latex) Allergy (Severe, Verified 12/23/24 14:13) RASH cephalexin (CEPHALEXIN) Allergy (Intermediate, Verified 12/23/24 14:13) SWELLING adhesive tape (Adhesive Tape) Allergy (Mild, Verified 12/23/24 14:13) CONTACT DERMATITIS empagliflozin (From Jardiance) Adverse Reaction (Severe, Verified 12/23/24 14:13) Dizziness flecainide (From Tambocor) Adverse Reaction (Severe, Verified 12/23/24 14:13) HEART RACING Biaxin Adverse Reaction (Intermediate, Verified 12/23/24 14:13) plapitations lisinopril (LISINOPRIL) Adverse Reaction (Intermediate, Verified 12/23/24 14:13) cough, nausea bacitracin (From Cortisporin) Adverse Reaction (Mild, Verified 12/23/24 14:13) EYE IRRITATION hydrocortisone (From Cortisporin) Adverse Reaction (Mild, Verified 12/23/24 14:13) EYE IRRITATION neomycin (From Cortisporin) Adverse Reaction (Mild, Verified 12/23/24 14:13) EYE IRRITATION nitrofurantoin Adverse Reaction (Verified 12/23/24 14:13) Loss of Appetite Do you need a note to return to daycare/school/sports/work: No HPI HPI Comments History of Present Illness Details History - The patient is an 84-year-old female presenting with a suspected urinary tract infection x 2 days. - Reports frequent urination and dysuria, occurring seven to eight times in the morning. - Denies blood in urine, fever, or new onset of back pain. - History of nephrolithiasis with a previous obstructing distal stone and stent placement/removal in September. - History of spinal fracture contributing to chronic back pain. Physical Exam General: Cooperative, healthy appearing, comfortable, no acute distress and well developed Orientation: Patient oriented x3 Limitations: uses walker for ambulation Head: Normal to inspection Ears: Hearing grossly normal bilaterally Face and sinus: Normal facial exam Neck: Normal visual inspection and Yes full ROM Respiratory: Normal respiratory effort and able to speak in complete sentences. Skin: No rashes or lesions noted Neuro: Patient oriented x3 Review of Systems - Genitourinary: Reports frequent urination and dysuria. Denies hematuria. - Constitutional: Denies fever. - Musculoskeletal: Reports chronic back pain due to a history of spinal fracture. All systems reviewed and are unremarkable except as noted in HPI [facility] Medical History (Updated 11/19/24 @ 09:15 by Goeff Callahan MD) Pacemaker Type 2 diabetes mellitus with diabetic neuropathy, with long-term current use of insulin History of CHF (congestive heart failure) Chronic combined systolic and diastolic CHF (congestive heart failure) Right nephrolithiasis Recurrent UTI (urinary tract infection) Hiatal hernia Gastritis Opioid-induced constipation Degenerative disc disease, thoracic Degenerative disc disease, lumbar [place] (hard of hearing) Wears hearing aid in both ears Uses walker Hx of cardiac pacemaker (10/06/23) Age-related osteoporosis with current pathological fracture, vertebra(e), initial encounter for fracture Compression fracture of lumbar spine, non-traumatic Nontraumatic compression fracture of thoracic vertebra Moderate aortic stenosis Diabetes mellitus Congestive heart failure Hypertension Paroxysmal atrial fibrillation Cholelithiasis Renal cyst Pulmonary hypertension Non-rheumatic mitral regurgitation Permanent atrial fibrillation Microcytic anemia Atrophic vaginitis Osteoarthritis of knees, bilateral Essential hypertension Dyslipidemia Surgical History History of cardiac radiofrequency ablation (RFA) Hx of cardiac catheterization History of esophagogastroduodenoscopy (EGD) (~10/2022) History of lumbar discectomy History of lobectomy of lung History of hysterectomy History of total right knee replacement (TKR) Lumbar radiculopathy Family History Father Diabetes mellitus Mother Diabetes mellitus Myocardial infarction Sister Cancer Sister No problems noted. Son No problems noted. Daughter No problems noted. Social History Household Members: Family Housing: House Are you a primary career coach to a significant other at home: No Do you presently have visiting nurse or other home services: No Alcohol intake: never Patient Tobacco Use Status: Former Tobacco user Tobacco use type: Cigarette e-Cigarette/Vaping Use: Never Used Advance Directives Date on File: 06/20/23 service: No Current occupational status: retired Cognitive needs: No Hearing needs: Yes Vision needs: Yes Physical Exam Vital Signs: Last Vital Signs Temp 98.3 F 12/23/24 14:10 Pulse 89 12/23/24 14:10 BP 138/80 12/23/24 14:10 Pulse Ox 94 12/23/24 14:10 Oxygen Delivery Method Room Air 12/23/24 14:10 BMI result Body Mass Index 31.4 Results AMB Urinalysis, Automated UA Leukoctes 500 Sofía/uL Last Edit by Shaunna Hernandez, [employer] REPRESENTATIVE on 12/23/24 14:25 UA Nitrite Negative Last Edit by Shaunna Hernandez, [facility] on 12/23/24 14:25 UA Urobilinogen 0.2 mg/dL Last Edit by Shaunna Hernandez, [employer] REPRESENT[employer]IVE on 12/23/24 14:25 UA Protein 30 mg/dL Last Edit by Shaunna Hernandez, [facility] on 12/23/24 14:25 UA pH 6.0 Last Edit by Shaunna Hernandez, [facility] on 12/23/24 14:25 UA Blood 200 Stewart/uL Last Edit by Shaunna Hernandez, [facility] on 12/23/24 14:25 UA Specific [place] 1.015 Last Edit by Shaunna Hernandez, [facility] on 12/23/24 14:25 UA Ketone Negative Last Edit by Shaunna Hernandez, [facility] on 12/23/24 14:25 UA Bilirubin 0 mg/dL Last Edit by Shaunna Hernandez, [facility] on 12/23/24 14:25 UA Glucose 0 mg/dL Last Edit by Shaunna Hernandez, [facility] on 12/23/24 14:25 Assessment & Plan Assessment & Plan (1) Recurrent UTI (urinary tract infection): Code(s): N39.0 - Urinary tract infection, site not specified Plan: Plan - Allergic to Keflex, Bactrim (severe) contraindicated with 2 of her medications. With last 2 C&S, next best option is Cipro, reviewed black box warning. Patient uses walker so no running or jumping at baseline. Advise against strenuous activities to prevent tendon rupture risk with Ciprofloxacin. - Prescribe Ciprofloxacin for three days due to its efficacy on klebisella - Send urine culture to confirm antibiotic sensitivity. - Monitor for increased pain or obstruction, considering nephrolithiasis history, reach out to Urology if that occurs. - Advise contacting the urologist directly if symptoms worsen to try to bypass the ER. Patient was informed and verbally consented to the use of an ambient scribe for clinic note documentation during this visit. Orders: Orders Urine Culture Today Keya Alvarez PA-C N39.0 - Urinary tract infection, site not specified AMB Urinalysis Automated Today Karla Kraus PA-C Z13.9 - Encounter for screening, unspecified Medications: New ciprofloxacin HCl 250 mg PO Q12H 6 tabs 0RF Keya Alvarez PA-C Coding Level of Care Code Est Pt Level 3 (95579) Diagnoses Recurrent UTI (urinary tract infection) N39.0
--- OUTSIDE RECORDS SUMMARY | 2024-12-23 17:21 | XMS_ITS | Clinical Summary ---
Author Organization [facility] Address [address] [address] [place] [address] Phone Care Team Providers Care Dining Server Name Role Phone Unavailable Primary Care Provider Unavailabl e Allergies Active Allergy Reactions Criticality Noted Date Comments Adhesive Tape 09/16/2024 Bacitracin 09/16/2024 Cephalexin Other (see comments) 07/13/2020 Clarithromycin Other (see comments) 07/13/2020 Empagliflozin 09/16/2024 Flecainide 09/16/2024 Hydrocortisone 09/16/2024 Latex Other (see comments) 07/13/2020 Lisinopril Other (see comments) 07/13/2020 Meperidine Other (see comments) 07/13/2020 Neomycin 09/16/2024 Nitrofurantoin 09/16/2024 Oxycodone-Acetaminophen Other (see comments) Medications metoprolol succinate XL (TOPROL-XL) 50 MG [...] mouth 1 (one) time each day Active ferrous sulfate 325 (65 Fe) MG tablet Take 325 mg by mouth 1 (one) time each day with breakfast Active lidocaine (LMX) 4 % cream Apply topically 4 (four) times a day if needed for mild pain Active Ascorbic Acid (VITAMIN C PO) Take by mouth 2 (two) times a day Active pyridoxine (VITAMIN B-6) 100 MG tablet Take 100 mg by mouth 1 (one) time each day Active Active Problems Problem Noted Date Diagnosed Date Cardiomyopathy 11/06/2024 Aortic valve stenosis 11/06/2024 Diabetes mellitus 11/06/2024 Other acute kidney failure 10/01/2024 Other acute kidney failure 10/01/2024 Stage 3a chronic kidney disease 10/01/2024 Essential hypertension 09/16/2024 Hyperlipidemia 09/16/2024 Anemia 09/16/2024 Congestive heart failure 09/16/2024 Infection caused by Escherichia coli 09/16/2024 Osteoporotic fracture of vertebra 09/16/2024 Pulmonary hypertension 09/16/2024 Spinal stenosis of lumbar region 09/16/2024 Sepsis caused by Gram negative bacteria 09/17/19 25 Reduced ejection fraction co -occurrent and due to acute heart failure 12/23/2022 02/05/2023 Iron deficiency anemia 12/23/2022 3 Gastro-esophageal reflux disease without esophag itis 12/23/2022 02/05/2023 Acute respiratory failure 12/23/20222022 Hyperkalemia 07/25/2022 Polyneuropathy due to type 2 diabetes mellitus 0 08/16/2021 Chronic kidney disease stage 2 07/26/2020 Proteinuria 07/13/2020 Type 2 diabetes mellitus wit h diabetic chronic kidney disease 07/13/2020 Hypertensive renal disease 07/13/2020 Chronic kidney disease stage 1 07/13/2020 Resolved Problems Problem Noted Date Diagnosed Date Resolved Date Urinary tract infectious disease 09/16/2024 11/06/2024 Encounters Date Type Department Care Team Description 11/06/2024 1:00 PM EDT Office Visit [facility] [address] [place] [address] Gume Moyer MD Stage 3a chronic kidney disease (HCC) (Primary Dx); Type 2 diabetes mellitus with diabetic chronic kidney disease (HCC) 11/01/2024 Orders Only [facility] [address] [phone] uGme Moyer MD 09/24/2024 4:30 PM EDT Telemedicine [facility] [address] [phone] Gume Moyer MD Other acute kidney failure (HCC) (Primary Dx); Stage 3a chronic kidney disease (HCC) 09/23/2024 Orders Only [facility] [address] [phone] Valarie Cazares MA 09/22/2024 Office Communication [facility] [address] [phone] Malia Emery from Last 3 Months Immunizations Immunization Administration [...] Sign Reading Time Taken Comments Blood Pressure 118/62 11/06/2024 1:12 PM EDT Pulse 71 11/06/2024 1:12 PM EDT Temperature - - Respiratory Rate - - Oxygen Saturation 97% 11/06/2024 1:12 PM EDT Inhaled Oxygen Concentration - - Weight 69.8 kg (153 lb 12.8 oz) 11/06/2024 1:12 PM EDT Height 162.6 cm (5' 4 ) 07/15/2018 12:0 1 PM EDT Body Mass Index 26.4 07/15/2018 12:01 PM EDT Plan of Treatment Upcoming Encounters Date Type Department Care Team (Late st Contact Info) Description 08/31/2025 1:15 PM EDT Office Visit [facility] [address] [place] [phone] Gume Moyer MD [phone] [phone] 09/07/2025 1:00 PM EDT Office Visit [facility] [address] [place] [phone] Gume Moyer MD [address] [phone] Health Maintenance Due Date Last Done Comments [...] Procedure Name Priority Date/Time Associated Diagnosis Comments PTH, INTACT (HC) Routine 11/01/2024 11:2 3 AM EDT ALBUMIN, URINE, RANDOM Routine 11/01/2024 11:23 AM EDT CREATININE, BLOOD Routine 11/01/2024 11: 23 AM EDT BUN Routine 11/01/2024 11:23 AM EDT ELECTROLYTE PANEL Routine 11/01/2024 11: 23 AM EDT CBC AND DIFFERENTIAL Routine 11/01/2024 11:23 AM EDT CALCIUM Routine 11/01/2024 11:23 AM EDT Other acute kidney failure (HCC) Stage 3a chronic kidney disease (HCC) ALBUMIN Routine 11/01/2024 11:23 AM EDT Other acute kidney failure (HCC) Stage 3a chronic kidney disease (HCC) MAGNESIUM Routine 11/01/2024 11:23 AM EDT Other acute kidney failure (HCC) Stage 3a chronic kidney disease (HCC) PHOSPHATE ( PHOSPHORUS) Routine 11/01/2024 11:23 AM EDT Other acute kidney failure (HCC) Stage 3a chronic kidney disease (HCC) VITAMIN D 25 HYDROXY Routine 11/01/2024 11:23 AM EDT Other acute kidney failure (HCC) Stage 3a chronic kidney disease (HCC) PROTEIN / CREATININE RATIO, URINE Routine 11/01/2024 11:23 AM EDT Other acute kidney failure (HCC) Stage 3a chronic kidney disease (HCC) URINALYSIS WITH MICROSCOPIC Routine 11/01/2024 11:23 AM EDT Other acute kidney failure (HCC) Stage 3a chronic kidney disease (HCC) from Last 3 Months Results * Creatinine (11/01/2024 11:23 AM EDT) Creatinine Serum 1.11 0.5 - 1.4 mg/dL See order comments eGFR (Calc) 47 See orde r comments Comment: Chronic Kidney Disease: Estimated GFR < 60 mL/min/1.73m2 Severe Kidney Disease: Estimated GFR < 15 mL/min/1.73m2 11/01/2024 11:2 3 AM EDT 11/01/2024 11:23 AM EDT us Gume Moyer MD LAB BLOOD ORDERABLES Final Re sult [place] See order comments [place] [address] * PTH, Intact (11/01/2024 11:23 AM EDT) Parathyroid Hormone, Intact 47.1 8.7 - 77.1 pg/mL See order comments 11/01/2024 11:2 3 AM EDT 11/01/2024 11:23 AM EDT us Gume Moyer MD LAB [id number] SOLICITED RESULTS Final Result [facility] See order comments [place] [address] * (ABNORMAL) Protein, Total, Random Urine w/Creatinine (Protein/Creat Ratio) (11/01/2024 11:23 AM EDT) Protein Urine Random 9 <12 mg/dL See order comments Protein/Creati nine Ratio, Urine 0.22(H) <0.2 See order comments Comment: The spot urine protein:creatinine ratio may increase to 0.3 during normal . Urine Urine specimen obtained by clean catch procedure / Unknown 11/01/2024 11:23 AM EDT 11/01/2024 11:23 AM EDT Gume Moyer MD LAB URINE ORDERABLES Final Re sult Performing Organization Address [facility] Co de Phone Number [place] See order comments [place] [address] * (ABNORMAL) Albumin, urine, random (11/01/2024 11:23 AM EDT) Creatinine, Urine 40.06 mg/dL Se e order comments Urine Microalbumin 19.0 mg/L See order comments Microalbumin/Crea tinine Ratio 47.4(H) <30 ug/mg cr See order comments Comment: Albumin/Creatinine Ratio Reference Ranges: Normal: < 30 ug/mg creatinine Microalbuminuria: 30 - 300 ug/mg creatinine Clinical Albuminuria: > 300 ug/mg creatinine 11/01/2024 11:2 3 AM EDT 11/01/2024 11:23 AM EDT Gume Moyer MD LAB URINE ORDERABLES Final Re sult Performing Organization Address [facility] Co de Phone Number [place] See order comments [place] [address] * (ABNORMAL) Vitamin D 25 Hydroxy (11/01/2024 11:23 AM EDT) Vitamin D, 25-Hydroxy 24.8(L) >30 ng/mL See order comments Comment: Health Based Reference Values* < 20 ng/mL Deficient 20-30 ng/mL Insufficient > 30 ng/mL Sufficient *Carlos FRASER. N Engl J Med. 2007;357:266-280 There is no well-established upper level of normal vitamin D levels. Some laboratories use 50 ng/mL as an upper limit of normal. However, toxicity is patient-dependent and may occur at any level. Careful correlation with the patient's presentation is necessary and, if there is concern for vitamin D toxicity, treatment should be considered irrespective of the serum level. Care must be taken in interpreting Vitamin D results from different laboratories and methodologies. Published data demonstrated that results from patients undergoing hemodialysis may show a negative bias when tested with various automated 25-OH vitamin D assays when compared to LC-MS/MS. When testing samples from patients whose predominant form of Vitamin D is Vitamin D2, such as patients receiving Vitamin D2 supplementation, results that are subtherapeutic should be confirmed with another method such as LC-MS/MS. Blood Venous blood / Unknown 11/01/2024 11:23 AM EDT 11/01/2024 11:23 AM EDT us Gume Moyer MD LAB BLOOD ORDERABLES Final Re sult [place] See order comments [place] [address] * (ABNORMAL) Urinalysis with microscopic (11/01/2024 11:23 AM EDT) Color Urine Yellow See orde r comments Appearance Urine Clear See order comments pH Urine 6.5 5.0 - 9.0 See order comments Glucose Urine Negative Negative mg/dL See order comments Blood, Urine Negative Negative See ord er comments Specific [place] Urine 1.010 1.005 - 1.025 See order comments Protein Urine Negative Neg-Trace mg/dL See order comments Ketones, Urine Negative Negative mg/dL See order comments Nitrite, Urine Negative Negative See o rder comments Leukocyte Esterase Urine Small (1+)(A) Negative See order comments RBC, Urine 0-2 0 - 2 /HPF See orde r comments WBC 6-10(A) 0 - 5 /HPF See order comments Squamous Epithelial, Urine 0-2 0 - 2 /HPF See order comments Bacteria, Urine None Seen None Seen See order comments Hyaline Casts, Urine 0-2 0 - 2 /LPF See order comments Urine Urine specimen obtained by clean catch procedure / Unknown 11/01/2024 11:23 AM EDT 11/01/2024 11:23 AM EDT us Gume Moyer MD LAB URINE ORDERABLES Final Re sult [place] See order comments [place] [address] * (ABNORMAL) CBC and Differential (11/01/2024 11:23 AM EDT) WBC 8.5 4.8 - 10.8 X10*3/uL See order comments RBC 4.06(L) 4.20 - 5.50 X10*6/uL See order comments Hgb 10.6(L) 12.0 - 16.0 g/dl See order comments Hematocrit 33.9(L) 37.0 - 47.0 % See order comments MCV 83.5 80.0 - 98.0 fL See order comments MCH 26.1(L) 27.0 - 33.0 pg See order comments MCHC 31.3 31.0 - 35.0 g/dl See order comments RDW 18.1(H) 11.0 - 16.0 % See order comments Platelets 283 160 - 400 X10*3/uL See order comments MPV 9.9 9.4 - 12.3 fL See order comments Neutrophils % Auto 59.6 45 - 73 % See order comments Immature Granulocytes 0.2 0.0 - 0.4 % See order comments Lymphocytes Relative 19.8(L) 20 - 40 % See order comments Monocytes 10.8 2 - 11 % See order comments Eosinophils Relative 9.0(H) 0 - 4 % See order comments Basophils Relative 0.6 0 - 2 % See order comments nRBC Count 0.0 0.0 - 0.2 /100WBC See order comments Neutrophils Absolute 5.1 2.0 - 8.3 x10*3/uL See order comments Immature Grans (Absolute) 0.02 0.00 - 0.03 X10*3/uL See order comments Lymphocytes Absolute 1.7 1.2 - 4.9 X10*3/uL See order comments Monocytes Absolute 0.9 0.1 - 1.2 X10*3/uL See order comments Eosinophils Absolute 0.8(H) 0.0 - 0.4 X10*3/uL See order comments Basophils Absolute 0.1 0.0 - 0.2 X10*3/uL See order comments NRBC Absolute 0.000 0.0 - 0.012 X10*3/uL See order comments 11/01/2024 11:2 3 AM EDT 11/01/2024 11:23 AM EDT us Gume Moyer MD LAB BLOOD ORDERABLES Final Re sult Performing Organization Address [facility] Phone Number [email or web address] See order comments [place] [address] * (ABNORMAL) BUN (11/01/2024 11:23 AM EDT) BUN 30(H) 9 - 16 mg/dL See order comments 11/01/2024 11:2 3 AM EDT 11/01/2024 11:23 AM EDT us Gume Moyer MD LAB BLOOD ORDERABLES Final Re sult Performing Organization Address [facility] Phone Number [place] See order comments [place] [address] * Phosphorus (11/01/2024 11:23 AM EDT) Phosphorus, Serum 3.8 2.7 - 4.5 mg/dL See order comments Blood Venous blood / Unknown 11/01/2024 11:23 AM EDT 11/01/2024 11:23 AM EDT us Gume Moyer MD LAB BLOOD ORDERABLES Final Re sult Performing Organization Address [facility] Phone Number [facility] See order comments [place] [address] * Magnesium (11/01/2024 11:23 AM EDT) Magnesium 2.0 1.6 - 2.6 mg/dL See order comments Blood Venous blood / Unknown 11/01/2024 11:23 AM EDT 11/01/2024 11:23 AM EDT us Gume Moyer MD LAB BLOOD ORDERABLES Final Re sult Performing Organization Address [facility] Phone Number [email or web address] See order comments [place] [address] * (ABNORMAL) Calcium (11/01/2024 11:23 AM EDT) Calcium 10.5(H) 8.4 - 10.2 mg/dL See order comments Blood Venous blood / Unknown 11/01/2024 11:23 AM EDT 11/01/2024 11:23 AM EDT us Gume Moyer MD LAB BLOOD ORDERABLES Final Re sult Performing Organization Address [facility] Phone Number [place] See order comments [place] [address] * Albumin (11/01/2024 11:23 AM EDT) Albumin 4.0 3.5 - 5.0 g/dL See order comments Blood Venous blood / Unknown 11/01/2024 11:23 AM EDT 11/01/2024 11:23 AM EDT us Gume Moyer MD LAB BLOOD ORDERABLES Final Re sult Performing Organization Address [facility] Phone Number [email or web address] See order comments [place] [address] * Electrolyte panel (11/01/2024 11:23 AM EDT) Sodium 137 135 - 145 mmol/L See order comments Potassium 4.6 3.3 - 5.1 mmol/L See order comments Chloride 99 96 - 108 mmol/L See order comments Bicarbonate (CO2) 27 22 - 29 mmol/L See order comments Anion Gap 16 12 - 20 See order comments 11/01/2024 11:2 3 AM EDT 11/01/2024 11:23 AM EDT us Gume Moyer MD LAB BLOOD ORDERABLES Final Re sult Performing Organization Address [facility] de Phone Number [email or web address] See order comments [place] [address] from Last 3 Months Insurance [facility] Medicare [facility] Medicare
--- OUTSIDE RECORDS SUMMARY | 2024-12-23 17:21 | XMS_ITS | Clinical Summary ---
Author Organization [facility] Address [address] [place] [address] Phone Care Team Providers Care Shell Sieve Operator Name Role Phone Silvia Corrales MD Primary Care Provider [phone] Encounters Date Type Department Care Team Description 10/02/2024 7:37 AM EDT - 10/02/2024 11:59 PM EDT Hospital Encounter [facility] Laboratory [address] [place] [address] Silvia Corrales MD Discharge Disposition: Home or Self Care 10/02/2024 Transcribe Orders [facility] Specimen Processing [address] [place] [address] Silvia Corrales MD Hydronephrosis with renal and ureteral calculous obstruction (Primary Dx); Combined systolic and diastolic heart failure, unspecified HF chronicity; Urinary tract infection without hematuria, site unspecified 09/29/2024 10:06 AM EDT - 09/29/2024 11:59 PM EDT Hospital Encounter [facility] [address] [place] [address] Silvia Corrales MD Discharge Disposition: Home or Self Care 09/29/2024 Transcribe Orders [facility] Specimen Processing [address] [place] [address] Silvia Corrales MD Hydronephrosis with renal and ureteral calculous obstruction (Primary Dx) 09/25/2024 6:03 AM EDT - 09/25/2024 11:59 PM EDT Hospital Encounter [facility] [address] [place] [address] Silvia Corrales MD Discharge Disposition: Home or Self Care 09/25/2024 Transcribe Orders [facility] Specimen Processing [address] [place] [address] Silvia Corrales MD Hydronephrosis, unspecified hydronephrosis type (Primary Dx) 09/22/2024 8:15 PM EDT - 09/22/2024 11:59 PM EDT Hospital Encounter [facility] Laboratory [address] [place] [address] Silvia Corrales MD Discharge Disposition: Home or Self Care 09/22/[address] [facility] Specimen Processing [address] [place] [address] Silvia Corrales MD Ureteral stone with hydronephrosis (Primary Dx); Arthritis; Sepsis due to Klebsiella; Acute renal failure, unspecified acute renal failure type from Last 3 Months Social History Tobacco [...] renal failure, unspecified acute renal failure type from Last 3 Months Results * (ABNORMAL) Comprehensive metabolic panel (10/02/2024 6:10 AM EDT) Only the most recent of4 resultswithin the time period is included. SODIUM 138 133 - 146 mmol/L [facility] POTASSIUM 5.0 3.3 - 5.1 mmol/L [facility] CHLORIDE 101 96 - 108 mmol/L [facility] CO2 25 21 - 35 mmol/L [facility] BUN 15 6 - 19 mg/dL [facility] CREATININE 1.10 0.5 - 1.5 mg/dL [facility] GLUCOSE 209(H) 70 - 99 mg/dL [facility] ALBUMIN 3.5(L) 3.9 - 4.8 g/dL [facility] TOTAL PROTEIN 6.9 6.5 - 8.0 g/dL [facility] CALCIUM 8.8 8.4 - 10.3 mg/dL [facility] ALKALINE PHOSPHATASE 115 39 - 117 U/L [facility] TOTAL BILIRUBIN 0.6 0.0 - 1.2 mg/dL [facility] AST 41(H) 0 - 37 U/L [facility] ALT 22 0 - 40 U/L [facility] GLOBULIN 3.4 1 - 4.8 g/dL [facility] EGFR 49(L) >59 mL/min/1.7 3m2 [facility] Comment:Estimated glomerular filtration rate calculated using the CKD-EPI refit equation. ANION GAP 17 10 - 20 mmol/L [facility] Blood 10/02/2024 6:10 AM EDT 10/02/2024 7:53 AM EDT us Silvia Corrales MD LAB BLOOD ORDERABLES Final Res ult Performing Organization Address City/State/[facility] Co de Phone Number [address] [address] * (ABNORMAL) CBC (10/02/2024 6:10 AM EDT) Only the most recent of4 resultswithin the time period is included. WBC 5.86 4.00 - 11.00 K/uL [facility] RBC 3.27(L) 4.00 - 5.20 M/uL [facility] HGB 8.2(L) 12.0 - 16.0 g/dL [facility] HCT 28.3(L) 36.0 - 46.0 % [facility] PLT 255 150 - 450 K/uL [facility] MCV 86.5 80.0 - 100.0 fL [facility] MCH 25.1(L) 27.0 - 31.0 pg [facility] MCHC 29.0(L) 32.0 - 36.0 g/dL [facility] RDW 19.9(H) 11.5 - 14.5 % [facility] MPV 9.7 8.4 - 12.0 fL [facility] NRBC 0.00 0.00 /100 WBCs [facility] ABSOLUTE NRBC 0.00 0.00 K/uL [facility] Blood 10/02/2024 6:10 AM EDT 10/02/2024 7:53 AM EDT Silvia Corrales MD LAB BLOOD ORDERABLES Final Res ult Performing Organization Address City/[facility]/ZIP Co de Phone Number [address] [address] * (ABNORMAL) Iron and iron binding capacity (09/22/2024 8:23 PM EDT) IRON 23(L) 30 - 160 ug/dL [facility] IRON BINDING CAPACITY 264 228 - 428 ug/dL [facility] TRANSFERRIN SATURAT. 9(L) 15 - 50 % [facility] Blood 09/22/2024 8:23 PM EDT 09/22/2024 8:25 PM EDT Silvia Corrales MD LAB BLOOD ORDERABLES Final Res ult Performing Organization Address City/[facility]/ZIP Co de Phone Number [address] [address] * Ferritin (09/22/2024 8:23 PM EDT) FERRITIN 131 13 - 150 ug/L [facility] Blood 09/22/2024 8:23 PM EDT 09/22/2024 8:25 PM EDT Silvia Corrales MD LAB BLOOD ORDERABLES Final Res ult Performing Organization Address City/[facility]/ZIP Co de Phone Number [address] [address] from Last [address] [place] [address] MEDICARE PART A & B Member Subscriber Plan / Payer (Ef fective 2009-Present) Name:Aminah Kraft Member ID:[id number] Relation to Subscriber:Self Name:Aminah Kraft Subscriber ID:[id number] Payer ID:[id number] Group ID:Not on file Type:Medicare Address: [employer] [address] [place] [id number] [place] [address] MEDICARE SUPPLEMENT MEDICARE PART A & B [facility] MEDICARE SUPPLEMENT MEDICARE PART A & B MEDICARE SUPPLEMENT MEDICARE PART A & B Member Subscriber Plan / Payer (Ef fective 2009-) Name:YurydamasokumarAminah Member ID:[id number] Relation to Subscriber:Self Name:GueraAminah restrepo Subscriber ID:[id number] Payer ID:[id number] Group ID:Not on file Type:Medicare Address: [employer] [address] MEDICARE SUPPLEMENT MEDICARE PART A & B [facility] MEDICARE SUPPLEMENT MEDICARE PART A & B [facility] MEDICARE SUPPLEMENT Care Teams Shell Sieve Operator Relationship Specialty Start Date End Date Silvia Corrales MD [address] [place] [phone] [email or web address] PCP - General Internal Medicine 09/18/24 Additional Source Comments The information contained in this document represents components of the legal health record. It is not the complete legal health record.[facility]
--- OUTSIDE RECORDS SUMMARY | 2024-12-23 17:21 | XMS_ITS | Clinical Summary ---
Author Organization [facility] Address [address] [place] [address] Care Team Providers Care Food Management Aide Name Role Phone Patricia Nicole MD Primary [...] place to sleep or slept in a custodial (including now)? No 12/18/2022 Comments Unknown Sex [...] Health Maintenance Due Date Last Done Comments Advance Care Planning 1938 Foot Exam 1948 Lipid Panel 1948 Ophthalmology Exam 1948 DTaP/Tdap/Td Vaccines (1 - Tdap) 1957 Pneumococcal Vaccines 50+ (1 of 2 - PCV) 1957 Zoster (Shingles) Vaccine (1 of 2) 1988 DXA Bone Density (Females,Ages 65 and older) 08/24/2003 RSV Vaccine 60 years and older and Patients (1 - 1-dose 75+ series) 2013 Hemoglobin A1C 06/19/2023 12/18/2022 Creatinine with GFR 12/25/2023 12/24/2022, 12/23/2022, 12/22/2022, Additional history exists Influenza Vaccine 10/17/2024 COVID-19 Vaccine ( season) 2024 01/22/2022, 01/28/2021 Hepatitis B Vaccines Aged Out No long [...] Panel (Early AM) (12/24/2022 6:14 AM EDT) Pathologist [facility] Glucose 161(H) 65 - 99 mg/dL 12/24/2022 7:23 AM EDT [facility] Comment:Fasting: <100 mg/dL, Non-Fasting: <200 mg/dL (ADA 2005) Blood Urea Nitrogen (BUN) 14 8 - 21 mg/dL 12/24/2022 7:23 AM EDT [facility] Creatinine 0.6 0.4 - 1.1 mg/dL 12/24/2022 7:23 AM T [facility] eGFR 88 >59 12/24/2022 7:23 AM [facility] Comment:CKD-EPI (2020) in mL /min/1.73 sq meters. Sodium 137 136 - 145 mmol/L 12/24/2022 7:23 AM [facility] Potassium 3.8 3.4 - 5.3 mmol/L 12/24/2022 7:23 AM [facility] Chloride 101 98 - 107 mmol/L 12/24/2022 7:23 AM [facility] CO2 28 22 - 33 mmol/L 12/24/2022 7:23 AM [facility] Anion Gap 8 7 - 17 12/24/2022 7:23 AM [facility] Calcium 9.3 8.7 - 10.5 mg/dL 12/24/2022 7:23 AM [facility] BUN/Creatinine Ratio 23 10.0 - 25.0 Ratio 12/24/2022 7:23 AM [facility] Blood specimen (specimen) (Plasma/Serum) 12/24/2022 6:14 AM EDT 12/24/2022 6:43 AM EDT us Silvestre Juarez MD LAB BLOOD ORDERABLES Fin al Result [place]ITAL [place] [address] * (ABNORMAL) Hemoglobin A1c with Estimated Average Glucose (12/18/2022 3:24 AM EDT) Hemoglobin A1C 7.5(H) <5.7 % 12/18/2022 4:47 AM T [facility] Comment: A1c% Interpretation 5.7 - 6.0 Increase risk of diabetes 6.1 - 6.4 Higher risk of diabetes > or = 6.5 Consistent with diabetes Diabetes Care, 33(Supp 1):S1-S61, 2009 Estimated Average Glucose 169 mg/dL 12/18/2022 4:47 AM T [facility] Blood specimen (specimen) Blood specimen / Unknown 12/18/2022 3:24 AM EDT 12/18/2022 3:40 AM EDT us Chiquita Adler HAND BLOCKER LAB BLOOD ORDERABLES Final R esult HOSPITAL LAB See Below [facility] [address] [place] [address] from Last 3 Months or Most Recently Relevant to Health Maintenance [place] [address] [place] [id number] [facility] MEDICARE PART A & B Advance Directives * Full Code (Latest Code Status on File) Date Activated Date Inactivated Comments 12/18/2022 2:12 AM Question Answer Comments Decision Thoroughly Discussed with: Unable to Di scuss Care Teams Food Management Aide Relationship Specialty Start Date End Date Patricia Nicole MD [address] [facility] [place] [address] PCP - General Internal Medicine 12/18/22
== END 2024-12-23 14:47 | disposition home or self-care (01) ==
PROVIDERS: PCP Internal Medicine; Visit Provider Physician Assistant
DX: N39.0 Urinary tract infection, site not specified (principal); Z13.9 Encounter for screening, unspecified

== ENCOUNTER 2024-12-23 14:07 | Outpatient (REF) | payer MEDICARE, SELFPAY | END 2024-12-23 14:08 | disposition home or self-care (01) | LOC: HO.LAB 14:07 | PROVIDERS: PCP Internal Medicine; Visit Provider Physician Assistant | DX: N39.0 Urinary tract infection, site not specified (principal); Z87.442 Personal history of urinary calculi; Z88.1 Allergy status to other antibiotic agents | CPT/HCPCS: 81003; 87086; 87088; 87186; 99212 ==

== ENCOUNTER 2024-12-31 10:34 | Outpatient (AMB) | payer MEDICARE, SELFPAY ==
--- NOTE | 2024-12-31 10:50 | AM.OFFWIN_ITS ---
Intake Vital Signs 12/31/24 10:52 Height 5 ft Weight 161 lb BMI 31.4 BP 132/74 Blood Pressure Location Lt brachial Position Sitting Pulse 85 Pulse Source Pulse Oximeter Temp 98.2 F Temp Source Oral Pulse Oximetry (%) 93 Oxygen Delivery Method Room Air Intake Visit Reasons: ep possible uti Patient Tobacco Use Status: Former Tobacco user Allergies latex (Latex) Allergy (Severe, Verified 12/31/24 11:04) RASH cephalexin (CEPHALEXIN) Allergy (Intermediate, Verified 12/31/24 11:04) SWELLING adhesive tape (Adhesive Tape) Allergy (Mild, Verified 12/31/24 11:04) CONTACT DERMATITIS empagliflozin (From Jardiance) Adverse Reaction (Severe, Verified 12/31/24 11:04) Dizziness flecainide (From Tambocor) Adverse Reaction (Severe, Verified 12/31/24 11:04) HEART RACING Biaxin Adverse Reaction (Intermediate, Verified 12/31/24 11:04) plapitations lisinopril (LISINOPRIL) Adverse Reaction (Intermediate, Verified 12/31/24 11:04) cough, nausea bacitracin (From Cortisporin) Adverse Reaction (Mild, Verified 12/31/24 11:04) EYE IRRITATION hydrocortisone (From Cortisporin) Adverse Reaction (Mild, Verified 12/31/24 11:04) EYE IRRITATION neomycin (From Cortisporin) Adverse Reaction (Mild, Verified 12/31/24 11:04) EYE IRRITATION nitrofurantoin Adverse Reaction (Verified 12/31/24 11:04) Loss of Appetite Medication List - Last Reconciled 12/31/24 by Linda Floyd MD acetaminophen ER (Tylenol Arthritis Pain) 650 mg PO Q8H apixaban (Eliquis) 5 mg PO BID 90 days coenzyme Q10 (CoQ-10) 100 mg PO DAILY ferrous sulfate 325 mg PO DAILY furosemide 20 mg PO DAILY gabapentin 300 mg PO BEDTIME 3 months insulin glargine (Lantus Solostar U-100 Insulin) 5 units subcut DAILY insulin lispro (Humalog KwikPen U-200 Insulin) 2 - 12 units subcut TID PRN lidocaine HCl 4% (Aspercreme (lidocaine HCl)) 1 appl topical QID PRN loratadine (Allergy Relief (loratadine)) 10 mg PO DAILY losartan 25 mg PO DAILY metoprolol succinate ER 25 mg PO DAILY pantoprazole 40 mg PO DAILY pen needle, diabetic As directed QID ac and hs polyethylene glycol 3350 (Miralax) 17 grams PO BID rosuvastatin 5 mg PO MOWEFR 90 days sennosides (Natural Senna Laxative) 8.6 mg PO DAILY simethicone (Gas Relief (simethicone)) 125 mg PO BID PRN spironolactone 25 mg PO DAILY tramadol 50 mg PO DAILY PRN vit C,J-Dv-zmtua-lutein-zeaxan 250-90-40-1 mg (PreserVision AREDS-2) 1 tab PO BID Do you need a note to return to daycare/school/sports/work: No HPI ep possible uti 2 HPI Details History of Present Illness The patient is an 84-year-old female presenting with frequent urination and urinary leakage. Urinary Tract Infection (UTI): - Patient reports frequent urination and urinary leakage. - Initial infection was diagnosed via a urine culture that grew E. coli on the 7th. Of this month - Treated with Ciprofloxacin 250 mg, twi ce daily for six days. - Reports an improvement in symptoms but still experiencing some issues. - A small amount of blood was noted in t he urine culture initially and remains slightly present. - infection which has since improved bu t requires extended antibiotic treatment to clear completely. There is no fever no chills no nausea vomiting no new back pains Problem List - Urinary Tract Infection Plan - Continue Ciprofloxacin for an addition al four days to address the residual symptoms and ensure complete clearance of the infection. - Monitor for any persistence or worseni ng of symptoms, and if necessary, follow up with the primary care provider. Review of Systems Negative except HPI Physical Exam - General: No acute distress - HEENT: No acute findings - Neck: Supple - Respiratory system: Able to talk in f ull sentences, no audible wheeze - Gastrointestinal: No pain suprapubic - BARREL CENTERER: Alert awake oriented x3 - Skin: Normal turgor [facility] Medical History Pacemaker Type 2 diabetes mellitus with diabetic neuropathy, with long-term current use of insulin History of CHF (congestive heart failure) Chronic combined systolic and diastolic CHF (congestive heart failure) Right nephrolithiasis Recurrent UTI (urinary tract infection) Hiatal hernia Gastritis Opioid-induced constipation Degenerative disc disease, thoracic Degenerative disc disease, lumbar [place] (hard of hearing) Wears hearing aid in both ears Uses walker Hx of cardiac pacemaker (10/06/23) Age-related osteoporosis with current pathological fracture, vertebra(e), initial encounter for fracture Compression fracture of lumbar spine, non-traumatic Nontraumatic compression fracture of thoracic vertebra Moderate aortic stenosis Diabetes mellitus Congestive heart failure Hypertension Paroxysmal atrial fibrillation Cholelithiasis Renal cyst Pulmonary hypertension Non-rheumatic mitral regurgitation Permanent atrial fibrillation Microcytic anemia Atrophic vaginitis Osteoarthritis of knees, bilateral Essential hypertension Dyslipidemia Surgical History History of cardiac radiofrequency ablation (RFA) Hx of cardiac catheterization History of esophagogastroduodenoscopy (EGD) (~10/2022) History of lumbar discectomy History of lobectomy of lung History of hysterectomy History of total right knee replacement (TKR) Lumbar radiculopathy Family History Father Diabetes mellitus Mother Diabetes mellitus Myocardial infarction Sister Cancer Sister No problems noted. Son No problems noted. Daughter No problems noted. Social History Household Members: Family Housing: House Are you a primary health care attorney to a significant other at home: No Do you presently have visiting nurse or other home services: No Alcohol intake: never Patient Tobacco Use Status: Former Tobacco user Tobacco use type: Cigarette e-Cigarette/Vaping Use: Never Used Advance Directives Date on File: 06/20/23 service: No Current occupational status: retired Cognitive needs: No Hearing needs: Yes Vision needs: Yes Physical Exam Vital Signs: Last Vital Signs Temp 98.2 F 12/31/24 10:52 Pulse 85 12/31/24 10:52 BP 132/74 12/31/24 10:52 Pulse Ox 93 12/31/24 10:52 Oxygen Delivery Method Room Air 12/31/24 10:52 BMI result Body Mass Index 31.4 Results AMB Urinalysis, Automated UA Leukoctes 15 Sofía/uL Last Edit by Jamilah Jang MA on 12/31/24 14:34 UA Nitrite Negative Last Edit by Jamilah Jang MA on 12/31/24 14:34 UA Urobilinogen 0.2 mg/dL Last Edit by Jamilah Jang MA on 12/31/24 14:34 UA Protein 0 mg/dL Last Edit by Jamilah Jang MA on 12/31/24 14:34 UA pH 6.5 Last Edit by Jamilah Jang MA on 12/31/24 14:34 UA Blood 10 Stewart/uL Last Edit by Jamilah Jang MA on 12/31/24 14:34 UA Specific Henderson 1.010 Last Edit by Jamilah Jang MA on 12/31/24 14:3 4 UA Ketone Negative Last Edit by Jamilah Jang MA on 12/31/24 14:34 UA Bilirubin 0 mg/dL Last Edit by Jamilah Jang MA on 12/31/24 14:34 UA Glucose 0 mg/dL Last Edit by Jamilah Jang MA on 12/31/24 14:34 Results Reviewed Results Reviewed: Laboratory Last Values Urine pH (Auto) 6.5 12/31/24 14:32 Specific Henderson (Auto) 1.010 12/31/24 14:32 Urine Protein (Auto) 0 mg/dL 12/31/24 14:32 Glucose (UA)(Auto) 0 mg/dL 12/31/24 14:32 Urine Ketones (Auto) Negative 12/31/24 14:32 Urine Blood (Auto) 10 Stewart/uL H 12/31/24 14:32 Urine Nitrite (Auto) Negative 12/31/24 14:32 Urine Bilirubin (Auto) 0 mg/dL 12/31/24 14:32 Urine Urobilinogen (Auto) 0.2 mg/dL 12/31/24 14:32 Leukocyte Esterase (Auto) 15 Sofía/uL H 12/31/24 14:32 Assessment & Plan Assessment & Plan (1) Acute cystitis with hematuria: Code(s): N30.01 - Acute cystitis with hematuria Plan Problem List - Urinary Tract Infection Plan - Continue Ciprofloxacin for an additional four days to address the residual symptoms and ensure complete clearance of the infection. - Monitor for any persistence or worsening of symptoms, and if necessary, follow up with the primary care provider. Orders: Orders AMB Urinalysis Automated Today Z13.9 - Encounter for screening, unspecified Medications: Changed From ciprofloxacin HCl 250 mg PO Q12H 6 tabs 0RF To ciprofloxacin HCl 250 mg PO Q12H 8 tabs 0RF 4 days Coding Level of Care Code Est Pt Level 3 (44092) Diagnoses Acute cystitis with hematuria N30.01
[2024-12-31 10:52] VITALS: BP 132/74; PULSE 85; TEMP 36.8; O2SAT 93; BMI 31.4
--- OUTSIDE RECORDS SUMMARY | 2024-12-31 12:34 | XMS_ITS | Clinical Summary ---
Author Organization [facility] Address [address] [place] [address] Phone Care Team Providers Care Discovery Guide Name Role Phone Silvia Corrales MD Primary Care Provider [phone] Encounters Date Type Department Care Team Description 10/02/2024 7:37 AM EDT - 10/02/2024 11:59 PM EDT Hospital Encounter [facility] Laboratory [address] [place] [address] Silvia Corrales MD Discharge Disposition: Home or Self Care 10/02/2024 Transcribe Orders [facility] Specimen Processing [address] [place] [address] Silvia Corrales MD Hydronephrosis with renal and ureteral calculous obstruction (Primary Dx); Combined systolic and diastolic heart failure, unspecified HF chronicity; Urinary tract infection without hematuria, site unspecified from Last 3 Months Social History Tobacco [...] Urinary tract infection without hematuria, site unspecified from Last 3 Months Results * (ABNORMAL) Comprehensive metabolic panel (10/02/2024 6:10 AM EDT) SODIUM 138 133 - 146 mmol/L [facility] POTASSIUM 5.0 3.3 - 5.1 mmol/L [facility] CHLORIDE 101 96 - 108 mmol/L [facility] CO2 25 21 - 35 mmol/L [facility] BUN 15 6 - 19 mg/dL [facility] CREATININE 1.10 0.5 - 1.5 mg/dL [facility] GLUCOSE 209(H) 70 - 99 mg/dL [facility] ALBUMIN 3.5(L) 3.9 - 4.8 g/dL [facility] TOTAL PROTEIN 6.9 6.5 - 8.0 g/dL [facility] CALCIUM 8.8 8.4 - 10.3 mg/dL [facility] ALKALINE PHOSPHATASE 115 39 - 117 U/L [facility] TOTAL BILIRUBIN 0.6 0.0 - 1.2 mg/dL [facility] AST 41(H) 0 - 37 U/L [facility] ALT 22 0 - 40 U/L [facility] GLOBULIN 3.4 1 - 4.8 g/dL [facility] EGFR 49(L) >59 mL/min/1.7 3m2 [facility] Comment:Estimated glomerular filtration rate calculated using the CKD-EPI refit equation. ANION GAP 17 10 - 20 mmol/L [facility] Blood 10/02/2024 6:10 AM EDT 10/02/2024 7:53 AM EDT us Silvia Corrales MD LAB BLOOD ORDERABLES Final Res ult [address] [address] * (ABNORMAL) CBC (10/02/2024 6:10 AM EDT) WBC 5.86 4.00 - 11.00 K/uL [facility] RBC 3.27(L) 4.00 - 5.20 M/uL [facility] HGB 8.2(L) 12.0 - 16.0 g/dL [facility] HCT 28.3(L) 36.0 - 46.0 % [facility] PLT 255 150 - 450 K/uL [facility] MCV 86.5 80.0 - 100.0 fL [facility] MCH 25.1(L) 27.0 - 31.0 pg [facility] MCHC 29.0(L) 32.0 - 36.0 g/dL [facility] RDW 19.9(H) 11.5 - 14.5 % [facility] MPV 9.7 8.4 - 12.0 fL [facility] NRBC 0.00 0.00 /100 WBCs [facility] ABSOLUTE NRBC 0.00 0.00 K/uL [facility] Blood 10/02/2024 6:10 AM EDT 10/02/2024 7:53 AM EDT us Silvia Corrales MD LAB BLOOD ORDERABLES Final Res ult Performing Organization Address City/[facility]/ZIP Co de Phone Number [address] [address] from Last 3 Months Insurance MEDICARE PART A & B MEDICARE SUPPLEMENT MEDICARE PART A & B [facility] MEDICARE SUPPLEMENT MEDICARE PART A & B Member Subscriber Plan / Payer (Ef fective 2009-Present) Name:GueraAminah restrepo Member ID:[id number] Relation to Subscriber:Self Name:Aminah Kraft Subscriber ID:[id number] Payer ID:[id number] Group ID:Not on file Type:Medicare Address: [employer] [place] [id number] [place] [address] MEDICARE SUPPLEMENT MEDICARE PART A & B [facility] MEDICARE SUPPLEMENT MEDICARE PART A & B [facility] MEDICARE SUPPLEMENT MEDICARE PART A & B [facility] MEDICARE SUPPLEMENT Care Teams Discovery Guide Relationship Specialty Start Date End Date Silvia Corrales MD [address] [place] [phone] [email or web address] PCP - General Internal Medicine 09/18/24 Additional Source Comments The information contained in this document represents components of the legal health record. It is not the complete legal health record.[facility]
--- OUTSIDE RECORDS SUMMARY | 2024-12-31 12:34 | XMS_ITS | Clinical Summary ---
Author Organization [facility] Address [address] [place] [address] Care Team Providers Care 2Nd Grade Teacher Name Role Phone Patricia Nicole MD Primary [...] (Females,Ages 65 and older) 08/24/2003 RSV Vaccine 50 years and older and Patients (1 - [...] (Early AM) (12/24/2022 6:14 AM EDT) Pathologist [facility] Glucose 161(H) 65 - 99 mg/dL 12/24/2022 7:23 AM EDT [facility] Comment:Fasting: <100 mg/dL, Non-Fasting: <200 mg/dL (ADA 2005) Blood Urea Nitrogen (BUN) 14 8 - 21 mg/dL 12/24/2022 7:23 AM EDT [facility] Creatinine 0.6 0.4 - 1.1 mg/dL 12/24/2022 7:23 AM T [facility] eGFR 88 >59 12/24/2022 7:23 AM [facility] Comment:CKD-EPI (2020) in mL /min/1.73 sq meters. Sodium 137 136 - 145 mmol/L 12/24/2022 7:23 AM [facility] Potassium 3.8 3.4 - 5.3 mmol/L 12/24/2022 7:23 AM [facility] Chloride 101 98 - 107 mmol/L 12/24/2022 7:23 AM [facility] CO2 28 22 - 33 mmol/L [...] Fin al Result [place]ITAL [place] [address] * (ABNORMAL) Hemoglobin A1c with Estimated Average Glucose (12/18/2022 3:24 AM EDT) Hemoglobin A1C 7.5(H) <5.7 % 12/18/2022 4:47 AM T [facility] Comment: A1c% Interpretation 5.7 - 6.0 Increase risk of diabetes 6.1 - 6.4 Higher risk of diabetes > or = 6.5 Consistent with diabetes Diabetes Care, 33(Supp 1):S1-S61, 2009 Estimated Average Glucose 169 mg/dL 12/18/2022 4:47 AM T [facility] Blood specimen (specimen) Blood specimen / Unknown 12/18/2022 3:24 AM EDT 12/18/2022 3:40 AM EDT us Chiquita Adler INDUSTRIAL SPRAYPAINTER LAB BLOOD ORDERABLES Final R esult HOSPITAL LAB See Below [facility] [address] [place] [address] from Last 3 Months or Most Recently Relevant to Health Maintenance [place] [id number] [facility] MEDICARE PART A & B Advance Directives * Full Code (Latest Code Status on File) Date Activated Date Inactivated Comments 12/18/2022 2:12 AM Question Answer Comments Decision Thoroughly Discussed with: Unable to Di scuss Care Teams 2Nd Grade Teacher Relationship Specialty Start Date End Date Patricia Nicole MD [address] [facility] [place] [address] PCP - General Internal Medicine 12/18/22
--- OUTSIDE RECORDS SUMMARY | 2024-12-31 12:34 | XMS_ITS | Clinical Summary ---
Author Organization [facility] Address [address] [place] [place] [address] Phone Care Team Providers Care Web Content Coordinator Name Role Phone Unavailable Primary Care Provider [...] failure 12/23/2022 02/05/2023 Iron deficiency anemia 12/23/2022 Gastro-esophageal reflux disease [...] Office Visit [facility] [address] [place] [phone] Gume Moyer MD Stage 3a chronic kidney disease (HCC) (Primary Dx); Type 2 diabetes mellitus with diabetic chronic kidney disease (HCC) 11/01/2024 Orders Only [facility] [address] [address] Gume Moyer MD from Last 3 Months [...] Visit [facility] [address] [place] [address] Gume Moyer MD [address] [address] 09/07/2025 1:00 PM EDT Office Visit [facility] [address] [place] [address] Gume Moyer MD [address] [phone] Health Maintenance Due Date Last Done Comments [...] ORDERABLES Final Re sult Performing Organization Address [facility] de Phone Number [facility] See order comments [place] [address] * PTH, Intact (11/01/2024 11:23 AM EDT) Pathologist [facility] Parathyroid Hormone, Intact 47.1 8.7 - 77.1 pg/mL See order comments 11/01/2024 11:2 3 AM EDT 11/01/2024 11:23 AM EDT us Gume Moyer MD LAB [id number] SOLICITED RESULTS Final Result Performing Organization Address [facility] Phone Number [facility] See order comments [place] [address] * (ABNORMAL) Protein, Total, Random Urine w/Creatinine [...] ORDERABLES Final Re sult Performing Organization Address [facility] de Phone Number [place] See order comments [place] [address] * (ABNORMAL) Albumin, urine, random (11/01/2024 11:23 [...] order comments [place] [address] * (ABNORMAL) Vitamin D 25 Hydroxy (11/01/2024 [...] 11:23 AM EDT Gume Moyer MD LAB BLOOD ORDERABLES Final Re sult Performing Organization Address [facility] de Phone Number [place] See order comments [place] [address] * (ABNORMAL) Urinalysis with microscopic (11/01/2024 11:23 AM EDT) Color Urine Yellow See orde r comments Appearance Urine Clear See order comments pH Urine 6.5 5.0 - 9.0 See order comments Glucose Urine Negative Negative mg/dL See order comments Blood, Urine Negative Negative See ord er comments Specific [place] Urine 1.010 1.005 - 1.025 See order [...] ORDERABLES Final Re sult Performing Organization Address [facility] de Phone Number [place] See order comments [place] [address] * (ABNORMAL) CBC and Differential (11/01/2024 11:23 [...] order comments [place] [address] * (ABNORMAL) BUN (11/01/2024 11:23 AM EDT) BUN 30(H) 9 - 16 mg/dL See order comments 11/01/2024 11:2 3 AM EDT 11/01/2024 11:23 AM EDT us Gume Moyer MD LAB BLOOD ORDERABLES Final Re sult Performing Organization Address [facility] de Phone Number [place] See order comments [place] [address] * Phosphorus (11/01/2024 11:23 AM EDT) Phosphorus, Serum 3.8 2.7 - 4.5 mg/dL See order comments Blood Venous blood / Unknown 11/01/2024 11:23 AM EDT 11/01/2024 11:23 AM EDT us Gume Moyer MD LAB BLOOD ORDERABLES Final Re sult Performing Organization Address [facility] Phone Number [place] See order comments [place] [address] * Magnesium (11/01/2024 11:23 AM EDT) Magnesium 2.0 1.6 - 2.6 mg/dL See order comments Blood Venous blood / Unknown 11/01/2024 11:23 AM EDT 11/01/2024 11:23 AM EDT us Gume Moyer MD LAB BLOOD ORDERABLES Final Re sult Performing Organization Address [facility] de Phone Number [place] See order comments [place] [address] * (ABNORMAL) Calcium (11/01/2024 11:23 AM EDT) Calcium 10.5(H) 8.4 - 10.2 mg/dL See order comments Blood Venous blood / Unknown 11/01/2024 11:23 AM EDT 11/01/2024 11:23 AM EDT us Gume Moyer MD LAB BLOOD ORDERABLES Final Re sult Performing Organization Address [facility]/ZIP Co de Phone Number [place] See order comments [place] [address] * Albumin (11/01/2024 11:23 AM EDT) Albumin 4.0 3.5 - 5.0 g/dL See order comments Blood Venous blood / Unknown 11/01/2024 11:23 AM EDT 11/01/2024 11:23 AM EDT Gume Moyer MD LAB BLOOD ORDERABLES Final Re sult [place] See order comments [place] [address] * Electrolyte panel (11/01/2024 11:23 AM EDT) [...] 11:23 AM EDT Gume Moyer MD LAB BLOOD ORDERABLES Final Re sult Performing Organization Address City/[facility]/ZIP Co de Phone Number [place] See order comments [place] [address] from Last 3 Months Insurance [facility] Medicare [facility] Medicare
== END 2024-12-31 11:29 | disposition home or self-care (01) ==
PROVIDERS: PCP Internal Medicine; Visit Provider Internal Medicine
DX: Z13.9 Encounter for screening, unspecified (principal); N30.01 Acute cystitis with hematuria

== ENCOUNTER → 2024-12-31 10:34 | Outpatient (BNVA) | payer MEDICARE, SELFPAY | PROVIDERS: PCP Internal Medicine; Visit Provider Internal Medicine | DX: N30.01 Acute cystitis with hematuria (principal); R32 Unspecified urinary incontinence | CPT/HCPCS: 81003; 99212 ==

== ENCOUNTER 2025-01-13 06:50 | Outpatient (REF) | payer MEDICARE, SELFPAY ==
[2025-01-13 10:02] LABS: Appearance Urine Cloudy; Glucose Urine UA Negative (Negative); PH 6.0 (5.0-9.0); Specific Gravity - Urine 1.015 (1.005-1.025); UMIC TRIGGER UA YES
== END 2025-01-13 06:51 | disposition home or self-care (01) ==
LOC: HO.HMGCLNP 06:50
PROVIDERS: PCP Internal Medicine; Visit Provider Urology
DX: N39.0 Urinary tract infection, site not specified (principal)
CPT/HCPCS: 81001; 87086

== ENCOUNTER 2025-01-19 07:22 | Outpatient (REF) | payer MEDICARE, SELFPAY ==
--- OUTSIDE RECORDS SUMMARY | 2025-01-19 07:25 | XMS_ITS | Clinical Summary ---
Author Organization [facility] Address [address] [place] [address] Care Team Providers Care Foreign Exchange Clerk Name Role Phone Patricia Nicole MD Primary [...] (Early AM) (12/24/2022 6:14 AM EDT) Pathologist [facility] Glucose 161(H) 65 - 99 mg/dL 12/24/2022 7:23 AM EDT [facility] Comment:Fasting: <100 mg/dL, Non-Fasting: <200 mg/dL (ADA 2005) Blood Urea Nitrogen (BUN) 14 8 - 21 mg/dL 12/24/2022 7:23 AM EDT [facility] Creatinine 0.6 0.4 - 1.1 mg/dL 12/24/2022 7:23 AM T [facility] eGFR 88 >59 12/24/2022 7:23 AM [facility] Comment:CKD-EPI (2020) in mL /min/1.73 sq meters. Sodium 137 136 - 145 mmol/L 12/24/2022 7:23 AM [facility] Potassium 3.8 3.4 - 5.3 mmol/L 12/24/2022 7:23 AM [facility] Chloride 101 98 - 107 mmol/L 12/24/2022 7:23 AM [facility] CO2 28 22 - 33 mmol/L 12/24/2022 7:23 AM [facility] Anion Gap 8 7 - 17 12/24/2022 7:23 AM [facility] Calcium 9.3 8.7 - 10.5 mg/dL 12/24/2022 7:23 AM [facility] BUN/Creatinine Ratio 23 10.0 - 25.0 Ratio 12/24/2022 7:23 AM [facility] Blood specimen (specimen) (Plasma/Serum) 12/24/2022 6:14 AM EDT 12/24/2022 6:43 AM EDT us Silvestre Juarez MD LAB BLOOD ORDERABLES Fin al Result [place] [address] * (ABNORMAL) Hemoglobin A1c with Estimated Average Glucose (12/18/2022 3:24 AM EDT) Hemoglobin A1C 7.5(H) <5.7 % 12/18/2022 4:47 AM T [facility] Comment: A1c% Interpretation 5.7 - 6.0 Increase risk of diabetes 6.1 - 6.4 Higher risk of diabetes > or = 6.5 Consistent with diabetes Diabetes Care, 33(Supp 1):S1-S61, 2009 Estimated Average Glucose 169 mg/dL 12/18/2022 4:47 AM T [facility] Blood specimen (specimen) Blood specimen / Unknown 12/18/2022 3:24 AM EDT 12/18/2022 3:40 AM EDT us Chiquita Adler SCIENTIFIC ARTIST LAB BLOOD ORDERABLES Final R esult HOSPITAL LAB See Below [facility] [address] [place] [address] from Last 3 Months or Most Recently Relevant to Health Maintenance [place] [id number] [facility] MEDICARE PART A & B Advance Directives * Full Code (Latest Code Status on File) Date Activated Date Inactivated Comments 12/18/2022 2:12 AM Question Answer Comments Decision Thoroughly Discussed with: Unable to Di scuss Care Teams Foreign Exchange Clerk Relationship Specialty Start Date End Date Patricia Nicole MD [address] [facility] [place] [address] PCP - General Internal Medicine 12/18/22
--- OUTSIDE RECORDS SUMMARY | 2025-01-19 07:25 | XMS_ITS | Clinical Summary ---
Author Organization [facility] Address [address] [place] [address] [place] [address] Phone Care Team Providers Care Client Onboarding Analyst Name Role Phone Silvia Corrales MD Primary Care Provider [phone] Social History Tobacco Use Types Packs/Day Years [...] on file Medical Devices [place] [id number] MEDICARE PART A & B [facility] MEDICARE SUPPLEMENT MEDICARE PART A & B [facility] MEDICARE SUPPLEMENT MEDICARE PART A & B Member Subscriber Plan / Payer (Ef fective 2009-Present) Name:Aminah Kraft Member ID:[id number] Relation to Subscriber:Self Name:Aminah Kraft Subscriber ID:[id number] Payer ID:[id number] Group ID:Not on file Type:Medicare Address: [facility] MysteryD [facility] [address] MEDICARE SUPPLEMENT MEDICARE PART A & B [facility] MEDICARE SUPPLEMENT MEDICARE PART A & B MEDICARE SUPPLEMENT MEDICARE PART A & B MEDICARE SUPPLEMENT Care Teams Client Onboarding Analyst Relationship Specialty Start Date End Date Silvia Corrales MD [address] [place] [id number] [email or web address] PCP - General Internal Medicine 09/18/24 Additional Source Comments The information contained in this document represents components of the legal health record. It is not the complete legal health record.[facility]
[2025-01-19 10:49] LABS: Hematocrit 38.8 % (37.0-47.0); Hemoglobin 12.0 g/dl (12.0-16.0)
[2025-01-19 11:14] LABS: Alanine Aminotransferase 18 U/L (0-31); Anion Gap 11 (12-20); Aspartate Amino Transferase 27 U/L (5-31); Blood Urea Nitrogen 28 mg/dL (9-16); Calcium 10.0 mg/dL (8.4-10.2); Carbon Dioxide 31 mmol/L (22-29); Chloride 100 mmol/L (96-108); Cholesterol 156 mg/dL (<200); Estimated Glomerular Filt Rate 51; HDL Cholesterol 54 mg/dL (>40); Potassium 4.1 mmol/L (3.3-5.1); Sodium 138 mmol/L (135-145); Triglycerides 68 mg/dL (<150)
== END 2025-01-19 07:23 | disposition home or self-care (01) ==
LOC: HO.HMGCLDS 07:22
PROVIDERS: PCP Internal Medicine; Visit Provider Internal Medicine
DX: E11.40 Type 2 diabetes mellitus with diabetic neuropathy, unspecified (principal); E78.5 Hyperlipidemia, unspecified; D50.9 Iron deficiency anemia, unspecified; Z79.4 Long term (current) use of insulin; Z79.01 Long term (current) use of anticoagulants; Z13.21 Encounter for screening for nutritional disorder
CPT/HCPCS: 36415; 80048; 80061; 82306; 83036; 84450; 84460; 85014; 85018

== ENCOUNTER 2025-01-21 11:37 | Outpatient (AMB) | payer MEDICARE, SELFPAY ==
--- NOTE | 2025-01-21 11:59 | A.OFFPC_ITS ---
Vital Signs 01/21/25 12:01 Height 5 ft Weight 165 lb BMI 32.2 BP 120/70 Blood Pressure Location Lt brachial Position Sitting Respiration 15 Pulse 64 Pulse Source Pulse Oximeter Temp 97.6 F Temp Source Oral Pulse Oximetry (%) 94 Oxygen Delivery Method Room Air Intake Visit Reasons: Follow up willy Intake Note: Pt is here today for her f/u Insurance Verification Representative Required: No Allergies latex (Latex) Allergy (Severe, Verified 01/21/25 12:21) RASH cephalexin (CEPHALEXIN) Allergy (Intermediate, Verified 01/21/25 12:21) SWELLING adhesive tape (Adhesive Tape) Allergy (Mild, Verified 01/21/25 12:21) CONTACT DERMATITIS empagliflozin (From Jardiance) Adverse Reaction (Severe, Verified 01/21/25 12:21) Dizziness flecainide (From Tambocor) Adverse Reaction (Severe, Verified 01/21/25 12:21) HEART RACING Biaxin Adverse Reaction (Intermediate, Verified 01/21/25 12:21) plapitations lisinopril (LISINOPRIL) Adverse Reaction (Intermediate, Verified 01/21/25 12:21) cough, nausea bacitracin (From Cortisporin) Adverse Reaction (Mild, Verified 01/21/25 12:21) EYE IRRITATION hydrocortisone (From Cortisporin) Adverse Reaction (Mild, Verified 01/21/25 12:21) EYE IRRITATION neomycin (From Cortisporin) Adverse Reaction (Mild, Verified 01/21/25 12:21) EYE IRRITATION nitrofurantoin Adverse Reaction (Verified 01/21/25 12:21) Loss of Appetite Medication List - Last Reconciled 01/21/25 by Patricia Nicole MD acetaminophen ER (Tylenol Arthritis Pain) 650 mg PO Q8H apixaban (Eliquis) 5 mg PO BID 90 days coenzyme Q10 (CoQ-10) 100 mg PO DAILY ferrous sulfate 325 mg PO DAILY furosemide 20 mg PO DAILY gabapentin 300 mg PO BEDTIME 3 months insulin glargine (Lantus Solostar U-100 Insulin) 5 units subcut DAILY insulin lispro (Humalog KwikPen U-200 Insulin) 2 - 12 units subcut TID PRN loratadine (Allergy Relief (loratadine)) 10 mg PO DAILY losartan 25 mg PO DAILY metoprolol succinate ER 25 mg PO DAILY pantoprazole 40 mg PO DAILY pen needle, diabetic As directed QID ac and hs polyethylene glycol 3350 (Miralax) 17 grams PO BID rosuvastatin 5 mg PO MOWEFR 90 days sennosides (Natural Senna Laxative) 8.6 mg PO DAILY simethicone (Gas Relief (simethicone)) 125 mg PO BID PRN spironolactone 25 mg PO DAILY vit C,S-So-iijtn-lutein-zeaxan 250-90-40-1 mg (PreserVision AREDS-2) 1 tab PO BID Tobacco use date assessed: 05/14/24 Fall risk assessment: No Falls in past year Last assessed Fall Risk: 01/21/25 Dental Screening Dental Screen Date: 01/21/25 Did you have a dental visit in the last 12 months?: Yes Did you have a dental problem in the last 6 months where you did not have access to dental care?: Yes Was dental information given to patient?: Patient has dentist HPI Follow up willy HPI Details 84-year-old lady today for follow-up on her diabetes mellitus. Latest hemoglobin A1c is at 8.6%. 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 Her blood sugars have been labile, with readings in the 300s , while also experiencing lows in the 70s at night, which prompts her to wake up and eat. Her insulin regimen consists of Lantus 12 units every morning and Humalog 2-12 units three times daily with meals, but she no longer takes Humalog at bedtime due to fear of hypoglycemic attacks . and urinary symptoms. Her medical history is significant for a recent hospitalization for a kidney stone with a blocked duct, during which her medications, including metformin, were stopped. The patient reports urinary frequency and urinary urgency, no dysuria, no abdominal pain . She was treated for a urinary tract infection with two courses of ciprofloxacin in early December. A recent urine culture was contaminated, showing mixed taras. She has a follow-up scheduled with her urologist in March. [facility] Medical History (Updated 01/28/25 @ 01:40 by Patricia Nicole MD) Type 2 diabetes mellitus with diabetic neuropathy, with long-term current use of insulin History of CHF (congestive heart failure) Chronic combined systolic and diastolic CHF (congestive heart failure) Right nephrolithiasis Recurrent UTI (urinary tract infection) Hiatal hernia Gastritis Degenerative disc disease, thoracic Degenerative disc disease, lumbar KLUTI KAAH (hard of hearing) Wears hearing aid in both ears Uses walker Hx of cardiac pacemaker (10/06/23) Age-related osteoporosis with current pathological fracture, vertebra(e), initial encounter for fracture Compression fracture of lumbar spine, non-traumatic Nontraumatic compression fracture of thoracic vertebra Moderate aortic stenosis Diabetes mellitus Cholelithiasis Renal cyst Pulmonary hypertension Non-rheumatic mitral regurgitation Permanent atrial fibrillation Microcytic anemia Atrophic vaginitis Osteoarthritis of knees, bilateral Essential hypertension Dyslipidemia Surgical History History of cardiac radiofrequency ablation (RFA) Hx of cardiac catheterization History of esophagogastroduodenoscopy (EGD) (~10/2022) History of lumbar discectomy History of lobectomy of lung History of hysterectomy History of total right knee replacement (TKR) Lumbar radiculopathy Family History Father Diabetes mellitus Mother Diabetes mellitus Myocardial infarction Sister Cancer Sister No problems noted. Son No problems noted. Daughter No problems noted. Social History Household Members: Family Housing: House Are you a primary career services coordinator to a significant other at home: No Do you presently have visiting nurse or other home services: No Alcohol intake: never Patient Tobacco Use Status: Former Tobacco user Tobacco use type: Cigarette e-Cigarette/Vaping Use: Never Used Advance Directives Date on File: 06/20/23 service: No Current occupational status: retired Cognitive needs: No Hearing needs: Yes Vision needs: Yes Questionnaire Thrive Questionnaire Date Thrive assessed: 10/13/24 I am a: Patient What is your living situation today?: I have a steady place to live Within the past 12 months, did the food you bought not last and you didn't have the money to get more?: Never true Within the past 12 months, did you worry whether your food would run out before you got money to buy more?: Never true Do you have trouble paying for medicines?: No Do you have trouble getting transportation to medical appointments?: No Do you have trouble paying your heating and electricity bill?: No Do you have trouble taking care of your child, family member or friend?: No Do you have trouble with day-to-day activities such as bathing, preparing meals, shopping, managing finances, etc.?: Yes Are you currently unemployed and looking for a job?: No Are you interested in more education?: No Please select the resources that you would like help with: None Currently or been in a relationship where the following occur: No concerns reported THRIVE Score: 0 INGRID-7 AMB Questionnaire INGRID-7 Date INGRID - 7 assessed: 05/14/24 Source: Developed by Drs. Chaz Mayer, Lily Ruggiero, Aayush Severino and colleagues, with an educational melinda from [employer]. Review of Systems Const Reports as per HPI Eyes Details: Goes to [facility], up-to-date with diabetic retinopathy screening, done earlier this year with no retinopathy seen. Denies change in vision and Reports requires corrective lenses ENT Denies dizziness Card Denies chest pain, Denies syncope, Denies rapid heart rate, Denies pedal edema, Denies lightheadedness, Denies palpitations, Denies dyspnea and Denies dyspnea on exertion Resp Denies cough, Denies dyspnea and Denies dyspnea on exertion GI Denies hematochezia and Denies change in stool character Reports as per HPI Musc Denies muscle cramps, Denies numbness and Denies tingling Neuro Denies confusion, Denies dizziness, Denies syncope, Denies numbness and Denies tingling Psych Reports no additional complaints and Denies confusion Endo Denies palpitations Alejandro/Lymph Reports no additional complaints Aller/Immun Reports no additional complaints Physical exam (Primary Care) Vital Signs: Last Vital Signs Temp 97.6 F 01/21/25 12:01 Pulse 64 01/21/25 12:01 Resp 15 01/21/25 12:01 BP 120/70 01/21/25 12:01 Pulse Ox 94 01/21/25 12:01 Oxygen Delivery Method Room Air 01/21/25 12:01 BMI result Body Mass Index 32.2 Tobacco/Smoking Status: Tobacco use Status Tobacco use date assessed 05/14/24 01/21/25 12:09 Patient Tobacco Use Status Former Tobacco user 01/21/25 12:09 Tobacco use type Cigarette 01/21/25 12:09 e-Cigarette/Vaping Use Never Used 01/21/25 12:09 Thrive Assessment: Date of Thrive Assessment Date Thrive assessed 10/13/24 01/21/25 12:09 Currently or been in a relationship where the following occur: No concerns reported Const Other: Alert oriented x3, no acute distress noted ambulatory with walker,daughter accompanying patient General: No confusion Orientation/consciousness: patient oriented x3 and No confusion HENMT Ears: hearing grossly impaired Mouth: Normal oral and palatal mucosa present and moist mucous membranes Eyes General: appearance normal, both eyes and all related structures Neck Neck: Yes full ROM, Yes no lymphadenopathy and Yes supple Resp Auscultation: clear to auscultation bilaterally Cardio Other: S1-S2 present regular rate and rhythm, systolic murmur heard for base GI Other: obese, Normal bowel sounds, soft, nontender, with no mass palpated General: Yes no CVA tenderness Back/Spine/Pelvis Other: Slightly kyphotic, no tenderness on palpation over paraspinal muscles or over thoracic or lumbar spine area Back: no CVA tenderness Neuro General: patient oriented x3, tone normal, moves all extremities and No confusion Extrem General: Yes full ROM, Yes no joint enlargement, Yes no clubbing, cyanosis or edema and Yes no calf tenderness Psych Appearance: grossly normal and well kempt Mental Status: mental status grossly normal Speech and movement: Normal speech and movement present Affect: normal affect Results Reviewed Results Reviewed: Name: Aminah Kraft Age/Sex: 84/F : 1940 Unit#: [id number] Attend Dr: Patricia Nicole MD Re01/19/25 Status: DEP [facility] Disch: SPEC : [id number] ANALISA: 01/19/25 STATUS: COMP REQ : [id number] RECD: 01/19/[address]: Patricia Nicole MD COMP: 01/19/252 ENTERED: 01/19/[address]: ORDERED: Met Prof Fast, AST, ALT, Lipid Panel, Vitamin D 25-OH Test Result Flag Reference Sodium 138 135-145 mmol/L Potassium 4.1 3.3-5.1 mmol/L CL 100 96-108 mmol/L CO2 31 H 22-29 mmol/L Gap 11 L 12-20 BUN 28 H 9-16 mg/dL Creat 1.03 0.5-1.4 mg/dL eGFR 51 Chronic Kidney Disease: Estimated GFR < 60 mL/min/1.73m2 Severe Kidney Disease: Estimated GFR < 15 mL/min/1.73m2 FBS 186 H 60-99 mg/dL A fasting glucose of 126 mg/dl or greater on more than one occasion is considered diagnostic of diabetes. CA 10.0 8.4-10.2 mg/dL AST (GOT) 27 5-31 U/L ALT (GPT) 18 0-31 U/L Triglyceride 68 <150 mg/dL Desirable Triglyceride: less than 150 mg/dL Borderline High Triglyceride 150-199 mg/dL High Triglyceride: 200-499 mg/dL Very High Triglyceride: greater than or equal to 5OO mg/dL Cholesterol 156 <200 mg/dL Desirable Cholesterol: less than 200 mg/dL Borderline High Cholesterol: 200-239 mg/dL High Cholesterol: greater than 239 mg/dL LDL Calculated 89 <100 mg/dL Desirable LDL: less than 100 mg/dL Near Optimal/Above Optimal LDL: 110-129 mg/dL Borderline High LDL: 130-159 mg/dL High LDL: 160-189 mg/dL Very High LDL: greater than or equal to 190 mg/dL HDL 54 >40 mg/dL Desirable HDL: greater than 40 mg/dL Note: This HDL assay may give artificially low results in patients with liver disease. Vitamin D 25-OH 35.0 >30 ng/mL Health Based Reference Values* < 20 ng/mL Deficient 20-30 ng/mL Insufficient > 30 ng/mL Sufficient Laboratory Tests 01/19/25 07:26 Hgb 12.0 Hct 38.8 Estimat Average Glucose 209 Hemoglobin A1c % 8.9 H Coding Level of Care Code Est Pt Level 4 (99444) Complex EM visit Add On G2211 Diagnoses Type 2 diabetes mellitus with diabetic neuropathy, with long-term current use of insulin E11.40; Z79.4 Urinary frequency R35.0 Assessment & Plan Assessment & Plan (1) Type 2 diabetes mellitus with diabetic neuropathy, with long-term current use of insulin: Code(s): E11.40 - Type 2 diabetes mellitus with diabetic neuropathy, unspecified; Z79.4 - termite inspector (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 Type 2 Diabetes Mellitus with Hyperglycemia The patient's HbA1c is elevated at 8.6, a significant increase from her baseline, with labile blood glucose levels, likely due to her taking a reduced dose of metformin and less Humalog following a recent hospitalization. She will continue Lantus 12 units in the morning and Humalog with meals , l add metformin 500 mg in the evening with her supper, in addition to her morning 1000 mg dose. Counseled the patient to switch her large meal to dinnertime and have a precision jig grinder lunch to help stabilize overnight blood sugars. due for an influenza vaccine. Plan to follow up in 3 months for re-evaluation. (2) Urinary frequency: Code(s): R35.0 - Frequency of micturition Plan: uhrinary frequency likely secondary to hyperglycemia. last urine culture showed multiple taras While a recurrent UTI is less likely given the recent contaminated culture and lack of burning/itching, an overactive bladder remains a differential. Primary plan is to improve glycemic control, advised to schedule an earlier appointment with her urologist, Dr. Hair, for further evaluation. Plan Patient was informed and verbally consented to the use of an ambient scribe for clinic note documentation during this visit.
[2025-01-21 12:01] VITALS: BP 120/70; PULSE 64; RESP 15; TEMP 36.4; O2SAT 94; BMI 32.2
--- OUTSIDE RECORDS SUMMARY | 2025-01-21 14:17 | XMS_ITS | Clinical Summary ---
Author Organization [facility] Address [address] [place] [address] Phone Care Team Providers Care Mountain Services Manager Name Role Phone Unavailable Primary Care Provider [...] Office Visit [facility] [address] [place] [phone] Gume Moyre MD Stage 3a chronic kidney disease (HCC) (Primary Dx); Type 2 diabetes mellitus with diabetic chronic kidney disease (HCC) 11/01/2024 Orders Only [facility] [address] [address] Gume Moyer MD from Last 3 Months [...] Visit [facility] [place] [address] [place] [address] Gume Moyer MD [address] [address] 09/07/2025 1:00 PM EDT Office Visit [facility] [address] [place] [address] Gume Moyer MD [address] [phone] Health Maintenance Due Date Last Done Comments [...] ORDERABLES Final Re sult Performing Organization Address [facility] Phone Number [facility] See order comments [place] [address] * PTH, Intact (11/01/2024 11:23 AM EDT) Pathologist [facility] Parathyroid Hormone, Intact 47.1 8.7 - 77.1 pg/mL See order comments 11/01/2024 11:2 3 AM EDT 11/01/2024 11:23 AM EDT us Gume Moyer MD LAB [id number] SOLICITED RESULTS Final Result Performing Organization Address [facility] Phone Number [facility] See order comments [place] [address] * (ABNORMAL) Protein, Total, Random Urine w/Creatinine [...] ORDERABLES Final Re sult Performing Organization Address [facility] Phone Number [place] See order comments [place] [address] * (ABNORMAL) Albumin, urine, random (11/01/2024 11:23 [...] order comments [place] [address] * (ABNORMAL) Vitamin D 25 Hydroxy (11/01/2024 [...] ORDERABLES Final Re sult Performing Organization Address [facility] Phone Number [place] See order comments [place] [address] * (ABNORMAL) Urinalysis with microscopic (11/01/2024 11:23 AM EDT) Color Urine Yellow See orde r comments Appearance Urine Clear See order comments pH Urine 6.5 5.0 - 9.0 See order comments Glucose Urine Negative Negative mg/dL See order comments Blood, Urine Negative Negative See ord er comments Specific [place] Urine 1.010 1.005 - 1.025 See order [...] ORDERABLES Final Re sult Performing Organization Address [facility] Phone Number [place] See order comments [place] [address] * (ABNORMAL) CBC and Differential (11/01/2024 11:23 [...] order comments [place] [address] * (ABNORMAL) BUN (11/01/2024 11:23 AM EDT) BUN 30(H) 9 - 16 mg/dL See order comments 11/01/2024 11:2 3 AM EDT 11/01/2024 11:23 AM EDT us Gume oMyer MD LAB BLOOD ORDERABLES Final Re sult Performing Organization Address [facility] Phone Number [place] See order comments [place] [address] * Phosphorus (11/01/2024 11:23 AM EDT) Phosphorus, Serum 3.8 2.7 - 4.5 mg/dL See order comments Blood Venous blood / Unknown 11/01/2024 11:23 AM EDT 11/01/2024 11:23 AM EDT us Gume Moyer MD LAB BLOOD ORDERABLES Final Re sult Performing Organization Address [facility] Phone Number [place] See order comments [place] [address] * Magnesium (11/01/2024 11:23 AM EDT) Magnesium 2.0 1.6 - 2.6 mg/dL See order comments Blood Venous blood / Unknown 11/01/2024 11:23 AM EDT 11/01/2024 11:23 AM EDT us Gume Moyer MD LAB BLOOD ORDERABLES Final Re sult Performing Organization Address [facility] Phone Number [place] See order comments [place] [address] * (ABNORMAL) Calcium (11/01/2024 11:23 AM EDT) Calcium 10.5(H) 8.4 - 10.2 mg/dL See order comments Blood Venous blood / Unknown 11/01/2024 11:23 AM EDT 11/01/2024 11:23 AM EDT us Gume Moyer MD LAB BLOOD ORDERABLES Final Re sult Performing Organization Address [facility]/ZIP Co de Phone Number [place] See order comments [place] [address] * Albumin (11/01/2024 11:23 AM EDT) Albumin 4.0 3.5 - 5.0 g/dL See order comments Blood Venous blood / Unknown 11/01/2024 11:23 AM EDT 11/01/2024 11:23 AM EDT Gume Moyer MD LAB BLOOD ORDERABLES Final Re sult [place] See order comments [place] [address] * Electrolyte panel (11/01/2024 11:23 AM EDT) [...] ORDERABLES Final Re sult Performing Organization Address [facility]/ZIP Co de Phone Number [place] See order comments [place] [address] from Last 3 Months Insurance [facility] Medicare [facility] Medicare
--- OUTSIDE RECORDS SUMMARY | 2025-01-21 14:17 | XMS_ITS | Clinical Summary ---
Author Organization [facility] Address [address] [place] [address] Care Team Providers Care Forensic Nurse Name Role Phone Patricia Nicole MD Primary [...] place to sleep or slept in a long term (including now)? No 12/18/2022 Comments Unknown Sex [...] (Early AM) (12/24/2022 6:14 AM EDT) Pathologist [facility] Glucose 161(H) 65 - 99 mg/dL 12/24/2022 7:23 AM EDT [facility] Comment:Fasting: <100 mg/dL, Non-Fasting: <200 mg/dL (ADA 2005) Blood Urea Nitrogen (BUN) 14 8 - 21 mg/dL 12/24/2022 7:23 AM EDT [facility] Creatinine 0.6 0.4 - 1.1 mg/dL 12/24/2022 7:23 AM T [facility] eGFR 88 >59 12/24/2022 7:23 AM [facility] Comment:CKD-EPI (2020) in mL /min/1.73 sq meters. Sodium 137 136 - 145 mmol/L 12/24/2022 7:23 AM [facility] Potassium 3.8 3.4 - 5.3 mmol/L 12/24/2022 7:23 AM [facility] Chloride 101 98 - 107 mmol/L 12/24/2022 7:23 AM [facility] CO2 28 22 - 33 mmol/L 12/24/2022 7:23 AM [facility] Anion Gap 8 7 - 17 12/24/2022 7:23 AM [facility] Calcium 9.3 8.7 - 10.5 mg/dL 12/24/2022 7:23 AM [facility] BUN/Creatinine Ratio 23 10.0 - 25.0 Ratio 12/24/2022 7:23 AM [facility] Blood specimen (specimen) (Plasma/Serum) 12/24/2022 6:14 AM EDT 12/24/2022 6:43 AM EDT us Silvestre Juarez MD LAB BLOOD ORDERABLES Fin al Result [place] [address] * (ABNORMAL) Hemoglobin A1c with Estimated Average [...] 12/18/2022 3:40 AM EDT us Chiquita Adler [employer] LAB BLOOD ORDERABLES Final R esult HOSPITAL LAB See Below [facility] [address] [place] [address] from Last 3 Months or Most Recently Relevant to Health Maintenance [place] [id number] [facility] MEDICARE PART A & B Advance Directives * Full Code (Latest Code Status on File) Date Activated Date Inactivated Comments 12/18/2022 2:12 AM Question Answer Comments Decision Thoroughly Discussed with: Unable to Di scuss Care Teams Forensic Nurse Relationship Specialty Start Date End Date Patricia Nicole MD [address] [facility] [place] [address] PCP - General Internal Medicine 12/18/22
--- OUTSIDE RECORDS SUMMARY | 2025-01-21 14:18 | XMS_ITS | Clinical Summary ---
Author Organization [facility] Address [address] [place] [address] [place] [address] Phone Care Team Providers Care Pasteurizing Supervisor Name Role Phone Silvia Corrales MD Primary Care Provider [phone] Social History Tobacco Use Types Packs/Day Years [...] [place] [address] MEDICARE PART A & B [facility] MEDICARE SUPPLEMENT MEDICARE PART A & B [facility] MEDICARE SUPPLEMENT MEDICARE PART A & B Member Subscriber Plan / Payer (Ef fective 2009-Present) Name:Aminah Kraft Member ID:[id number] Relation to Subscriber:Self Name:Aminah Kraft Subscriber ID:[id number] Payer ID:[id number] Group ID:Not on file Type:Medicare Address: [facility] [employer] [facility] [address] MEDICARE SUPPLEMENT MEDICARE PART A & B [facility] MEDICARE SUPPLEMENT MEDICARE PART A & B MEDICARE SUPPLEMENT MEDICARE PART A & B MEDICARE SUPPLEMENT Care Teams Pasteurizing Supervisor Relationship Specialty Start Date End Date Silvia Corrales MD [address] [place] [phone] [email or web address] PCP - General Internal Medicine 09/18/24 Additional Source Comments The information contained in this document represents components of the legal health record. It is not the complete legal health record.[facility]
== END 2025-01-21 12:53 | disposition home or self-care (01) ==
LOC: HO.HMCC 11:38
PROVIDERS: PCP Internal Medicine; Visit Provider Internal Medicine
DX: E11.40 Type 2 diabetes mellitus with diabetic neuropathy, unspecified (principal); Z79.4 Long term (current) use of insulin; R35.0 Frequency of micturition

== ENCOUNTER → 2025-01-21 11:37 | Outpatient (BNVA) | payer MEDICARE, SELFPAY | PROVIDERS: PCP Internal Medicine; Visit Provider Internal Medicine | DX: E11.40 Type 2 diabetes mellitus with diabetic neuropathy, unspecified (principal); R35.0 Frequency of micturition; Z79.4 Long term (current) use of insulin | CPT/HCPCS: 99212 ==

== ENCOUNTER 2025-01-26 12:56 | Outpatient (AMB) | payer MEDICARE, SELFPAY ==
--- NOTE | 2025-01-26 13:10 | A.OFFVIS_ITS ---
Vital Signs 01/26/25 13:11 Height 5 ft Weight 160 lb 14.999 oz BMI 31.4 BP 122/62 Blood Pressure Location Lt brachial Position Sitting Pulse 82 Pulse Source Pulse Oximeter Intake Visit Reasons: 6 mth w/ Contacts[employer] Allergies latex (Latex) Allergy (Severe, Verified 01/21/25 12:21) RASH cephalexin (CEPHALEXIN) Allergy (Intermediate, Verified 01/21/25 12:21) SWELLING adhesive tape (Adhesive Tape) Allergy (Mild, Verified 01/21/25 12:21) CONTACT DERMATITIS empagliflozin (From Jardiance) Adverse Reaction (Severe, Verified 01/21/25 12:21) Dizziness flecainide (From Tambocor) Adverse Reaction (Severe, Verified 01/21/25 12:21) HEART RACING Biaxin Adverse Reaction (Intermediate, Verified 01/21/25 12:21) plapitations lisinopril (LISINOPRIL) Adverse Reaction (Intermediate, Verified 01/21/25 12:21) cough, nausea bacitracin (From Cortisporin) Adverse Reaction (Mild, Verified 01/21/25 12:21) EYE IRRITATION hydrocortisone (From Cortisporin) Adverse Reaction (Mild, Verified 01/21/25 12:21) EYE IRRITATION neomycin (From Cortisporin) Adverse Reaction (Mild, Verified 01/21/25 12:21) EYE IRRITATION nitrofurantoin Adverse Reaction (Verified 01/21/25 12:21) Loss of Appetite Medication List - Last Reconciled 01/26/25 by Geoff Callahan MD acetaminophen ER (Tylenol Arthritis Pain) 650 mg PO Q8H PRN apixaban (Eliquis) 2.5 mg PO BID coenzyme Q10 (CoQ-10) 100 mg PO DAILY ferrous sulfate 325 mg PO DAILY furosemide 20 mg PO DAILY gabapentin 300 mg PO BEDTIME 3 months insulin glargine (Lantus Solostar U-100 Insulin) 5 units subcut DAILY insulin lispro (Humalog KwikPen U-200 Insulin) 2 - 12 units subcut TID PRN loratadine (Allergy Relief (loratadine)) 10 mg PO DAILY losartan 25 mg PO DAILY metformin 1,500 mg PO DAILY metoprolol succinate ER 25 mg PO DAILY pantoprazole 40 mg PO DAILY pen needle, diabetic As directed QID ac and hs polyethylene glycol 3350 (Miralax) 17 grams PO BID rosuvastatin 5 mg PO MOWEFR 90 days sennosides (Natural Senna Laxative) 8.6 mg PO DAILY simethicone (Gas Relief (simethicone)) 125 mg PO BID PRN spironolactone 25 mg PO DAILY vit C,L-Xu-ifgsk-lutein-zeaxan 250-90-40-1 mg (PreserVision AREDS-2) 1 tab PO BID HPI Comments Details: Aminah returns for follow-up regarding various issues including congestive heart failure, atrial fibrillation, pacemaker among others. Because of recurring episodes of pulmonary edema, she underwent cardiac catheterization. In fact even during the catheterization attempt she developed pulmonary edema. Any case, there was no significant CAD. Then underwent AV dacia ablation followed by conduction system pacing. Overall, apart from frailty she is okay for the most part. No new concerns. There was a hospitalization few months back for sepsis and renal failure but she seems to have recovered from that. [facility] Medical History Pacemaker Type 2 diabetes mellitus with diabetic neuropathy, with long-term current use of insulin History of CHF (congestive heart failure) Chronic combined systolic and diastolic CHF (congestive heart failure) Right nephrolithiasis Recurrent UTI (urinary tract infection) Hiatal hernia Gastritis Opioid-induced constipation Degenerative disc disease, thoracic Degenerative disc disease, lumbar [employer] [employer] (hard of hearing) Wears hearing aid in both ears Uses walker Hx of cardiac pacemaker (10/06/23) Age-related osteoporosis with current pathological fracture, vertebra(e), initial encounter for fracture Compression fracture of lumbar spine, non-traumatic Nontraumatic compression fracture of thoracic vertebra Moderate aortic stenosis Diabetes mellitus Congestive heart failure Hypertension Paroxysmal atrial fibrillation Cholelithiasis Renal cyst Pulmonary hypertension Non-rheumatic mitral regurgitation Permanent atrial fibrillation Microcytic anemia Atrophic vaginitis Osteoarthritis of knees, bilateral Essential hypertension Dyslipidemia Surgical History History of cardiac radiofrequency ablation (RFA) Hx of cardiac catheterization History of esophagogastroduodenoscopy (EGD) (~10/2022) History of lumbar discectomy History of lobectomy of lung History of hysterectomy History of total right knee replacement (TKR) Lumbar radiculopathy Family History Father Diabetes mellitus Mother Diabetes mellitus Myocardial infarction Sister Cancer Sister No problems noted. Son No problems noted. Daughter No problems noted. Social History Household Members: Family Housing: House Are you a primary wound care center consultant to a significant other at home: No Do you presently have visiting nurse or other home services: No Alcohol intake: never Patient Tobacco Use Status: Former Tobacco user Tobacco use type: Cigarette e-Cigarette/Vaping Use: Never Used Advance Directives Date on File: 06/20/23 service: No Current occupational status: retired Cognitive needs: No Hearing needs: Yes Vision needs: Yes Review of Systems Const Denies weakness ENT Denies dizziness Card Denies chest pain, Denies chest pain with activity, Denies syncope, Denies rapid heart rate, Denies pedal edema, Denies edema, Denies leg edema, Denies lightheadedness, Denies palpitations, Denies dyspnea, Denies dyspnea on exertion and Denies orthopnea Resp Denies cough, Denies dyspnea and Denies dyspnea on exertion GI Denies hematochezia and Denies change in stool character Musc Denies abnormal gait, Denies muscle cramps, Denies muscle weakness, Denies numbness, Denies radiating pain into limb and Denies tingling Neuro Denies abnormal gait, Denies dizziness, Denies syncope, Denies numbness, Denies tingling and Denies weakness Endo Denies palpitations Physical Exam Vital Signs: Last Vital Signs Pulse 82 01/26/25 13:11 BP 122/62 01/26/25 13:11 BMI result Body Mass Index 31.4 Const General: comfortable and no acute distress Orientation/consciousness: patient oriented x3 HEENT Other: Unremarkable Head: Yes normal to inspection Neck Neck: Yes normal visual inspection Chest Chest palpation & inspection: normal inspection of the chest Resp Auscultation: clear to auscultation bilaterally Cardio Palpation: normal PMI Heart sounds: S1 normal heart sound present, S2 normal heart sound present, no gallops, Murmur heart sound present systolic II/ and at the right sternal border and no rubs GI Palpation (GI): Soft to palpation Back/Spine/Pelvis Other: unremarkable Skin General skin exam: no rashes or lesions noted Neuro General: patient oriented x3 Extrem General: Yes normal to inspection Psych Mental Status: mental status grossly normal Office Procedures Cardiac Device Check Cardiac Device Check Details: Pacemaker interrogated today. Programmed VVIR. Battery status 12 years. Ventricular pacing 90%. Normal lead parameters. Overall, normal device function. [id number] Cardiac Device Check, leadless/single lead pacemaker Procedure code (CPT) selection complete Assessment & Plan Assessment & Plan (1) Chronic combined systolic and diastolic CHF (congestive heart failure): Code(s): I50.42 - Chronic combined systolic (congestive) and diastolic (congestive) heart failure Category: Medical Plan: In the last echocardiogram, LVEF 50-55%. Improved from previous 35%. Cardiac catheterization with no significant CAD. Clinically, she seems euvolemic. Continue current meds including metoprolol ER, losartan, Lasix, spironolactone. Did not like Jardiance due to side effects. (2) LBBB (left bundle branch block): Code(s): I44.7 - Left bundle-branch block, unspecified Category: Medical Plan: Status post conduction system pacing. (3) Non-rheumatic aortic stenosis: Code(s): I35.0 - Nonrheumatic aortic (valve) stenosis Category: Medical Plan: Dfqb-ih-vjyrrxsz aortic stenosis on the echocardiogram. Can monitor. (4) Permanent atrial fibrillation: Code(s): I48.21 - Permanent atrial fibrillation Category: Medical Plan: Status post AV dacia ablation. Continue Eliquis. After the episode of KEO, her Eliquis dose was apparently cut back to 2.5 mg b.i.d. but as the kidney function has normalized, we can go back to her usual 5 mg b.i.d. dose. (5) Essential hypertension: Code(s): I10 - Essential (primary) hypertension Category: Medical Plan: Stable. No changes. (6) Pacemaker: Code(s): Z95.0 - Presence of cardiac pacemaker Category: Medical Plan: Checked today and with normal function. Can be followed remotely. Medications: New apixaban (Eliquis) 5 mg PO BID 180 tabs 3RF 90 days Coding Level of Care Code Est Pt Level 4 (83118) Complex EM visit Add On G2211 Diagnoses Chronic combined systolic and diastolic CHF (congestive heart failure) I50.42 LBBB (left bundle branch block) I44.7 Non-rheumatic aortic stenosis I35.0 Permanent atrial fibrillation I48.21 Essential hypertension I10 Pacemaker Z95.0 CPT Codes Cardiac Device Check - Cardiac Device 1: [id number]-[id number] Cardiac Device Check, leadless/single lead pacemaker ([id number])
[2025-01-26 13:11] VITALS: BP 122/62; PULSE 82; BMI 31.4
--- OUTSIDE RECORDS SUMMARY | 2025-01-26 14:59 | XMS_ITS | Clinical Summary ---
Author Organization [facility] Address [address] [place] [address] Care Team Providers Care Licensed Embalmer Name Role Phone Patricia Nicole MD Primary [...] in a long-term (including now)? No 12/18/2022 Comments Unknown Sex [...] AM) (12/24/2022 6:14 AM EDT) Pathologist [facility] Glucose 161(H) 65 - 99 mg/dL 12/24/2022 [...] 136 - 145 mmol/L 12/24/2022 7:23 AM [facility] Potassium 3.8 3.4 - 5.3 mmol/L 12/24/2022 7:23 AM [facility] Chloride 101 98 - 107 mmol/L 12/24/2022 7:23 AM [facility] CO2 28 22 - 33 mmol/L 12/24/2022 7:23 AM [facility] Anion Gap 8 7 - 17 12/24/2022 7:23 AM [facility] Calcium 9.3 8.7 - 10.5 mg/dL 12/24/2022 7:23 AM [facility] BUN/Creatinine Ratio 23 10.0 - 25.0 Ratio 12/24/2022 7:23 AM [facility] Blood specimen (specimen) (Plasma/Serum) 12/24/2022 6:14 AM EDT 12/24/2022 6:43 AM EDT us Silvestre Juarez MD LAB BLOOD ORDERABLES Fin al Result H[place]PITAL [place] [address] * (ABNORMAL) Hemoglobin A1c with Estimated Average [...] 12/18/2022 3:40 AM EDT us Chiquita Adler HELMET HAT P[employer]CHER LAB BLOOD ORDERABLES Final R esult HOSPITAL LAB See Below [facility] [address] [place] [address] from Last 3 Months or Most Recently Relevant to Health Maintenance [place] [address] [place] [id number] [facility] MEDICARE PART A & B Advance Directives * Full Code (Latest Code Status on File) Date Activated Date Inactivated Comments 12/18/2022 2:12 AM Question Answer Comments Decision Thoroughly Discussed with: Unable to Di scuss Care Teams Licensed Embalmer Relationship Specialty Start Date End Date Patricia Nicole MD [address] [facility] [place] [address] PCP - General Internal Medicine 12/18/22
--- OUTSIDE RECORDS SUMMARY | 2025-01-26 14:59 | XMS_ITS | Clinical Summary ---
Author Organization [facility] Address [address] [place] [address] Phone Care Team Providers Care Crown Buffer Name Role Phone Unavailable Primary Care Provider [...] Office Visit [facility] [address] [place] [phone] Gume Moyer MD Stage 3a chronic kidney disease (HCC) (Primary Dx); Type 2 diabetes mellitus with diabetic chronic kidney disease (HCC) 11/01/2024 Orders Only [facility] [address] [address] Gume Moyer MD from Last 3 Months [...] Visit [facility] the [address] [place] [address] Gume Moyer MD [address] [address] 09/07/2025 1:00 PM EDT Office Visit [facility] [address] [place] [address] Gume Moyer MD [address] [phone] Health Maintenance Due Date Last Done Comments [...] ORDERABLES Final Re sult Performing Organization Address [facility] de Phone Number [facility] See order comments [place] [address] * PTH, Intact (11/01/2024 11:23 AM EDT) Pathologist [facility] Parathyroid Hormone, Intact 47.1 8.7 - 77.1 pg/mL See order comments 11/01/2024 11:2 3 AM EDT 11/01/2024 11:23 AM EDT us Gume Moyer MD LAB [id number] SOLICITED RESULTS Final Result Performing Organization Address [facility] Phone Number [facility] See order comments [place] [address] * (ABNORMAL) Protein, Total, Random Urine w/Creatinine [...] ORDERABLES Final Re sult Performing Organization Address [facility] de Phone Number [place] See order comments [place] [address] * (ABNORMAL) Albumin, urine, random (11/01/2024 11:23 [...] order comments [place] [address] * (ABNORMAL) Vitamin D 25 Hydroxy (11/01/2024 [...] ORDERABLES Final Re sult Performing Organization Address [facility] de Phone Number [place] See order comments [place] [address] * (ABNORMAL) Urinalysis with microscopic (11/01/2024 11:23 AM EDT) Color Urine Yellow See orde r comments Appearance Urine Clear See order comments pH Urine 6.5 5.0 - 9.0 See order comments Glucose Urine Negative Negative mg/dL See order comments Blood, Urine Negative Negative See ord er comments Specific [place] Urine 1.010 1.005 - 1.025 See order [...] ORDERABLES Final Re sult Performing Organization Address [facility] de Phone Number [place] See order comments [place] [address] * (ABNORMAL) CBC and Differential (11/01/2024 11:23 [...] AM EDT 11/01/2024 11:23 AM EDT us Gmue Moyer MD LAB BLOOD ORDERABLES Final Re sult [place] See order comments [place] [address] * (ABNORMAL) BUN (11/01/2024 11:23 AM EDT) BUN 30(H) 9 - 16 mg/dL See order comments 11/01/2024 11:2 3 AM EDT 11/01/2024 11:23 AM EDT us Gume Moyer MD LAB BLOOD ORDERABLES Final Re sult Performing Organization Address [facility] de Phone Number [place] See order comments [place] [address] * Phosphorus (11/01/2024 11:23 AM EDT) Phosphorus, Serum 3.8 2.7 - 4.5 mg/dL See order comments Blood Venous blood / Unknown 11/01/2024 11:23 AM EDT 11/01/2024 11:23 AM EDT us Gume Moyer MD LAB BLOOD ORDERABLES Final Re sult Performing Organization Address [facility] Phone Number [place] See order comments [place] [address] * Magnesium (11/01/2024 11:23 AM EDT) Magnesium 2.0 1.6 - 2.6 mg/dL See order comments Blood Venous blood / Unknown 11/01/2024 11:23 AM EDT 11/01/2024 11:23 AM EDT us Gume Moyer MD LAB BLOOD ORDERABLES Final Re sult Performing Organization Address [facility] de Phone Number [place] See order comments [place] [address] * (ABNORMAL) Calcium (11/01/2024 11:23 AM EDT) Calcium 10.5(H) 8.4 - 10.2 mg/dL See order comments Blood Venous blood / Unknown 11/01/2024 11:23 AM EDT 11/01/2024 11:23 AM EDT us Gume Moyer MD LAB BLOOD ORDERABLES Final Re sult Performing Organization Address [facility]/ZIP Co de Phone Number [place] See order comments [place] [address] * Albumin (11/01/2024 11:23 AM EDT) Albumin 4.0 3.5 - 5.0 g/dL See order comments Blood Venous blood / Unknown 11/01/2024 11:23 AM EDT 11/01/2024 11:23 AM EDT Gume Moyer MD LAB BLOOD ORDERABLES Final Re sult [place] See order comments [place] [address] * Electrolyte panel (11/01/2024 11:23 AM EDT) [...] ORDERABLES Final Re sult Performing Organization Address City/[facility]/ZIP Co de Phone Number [place] See order comments [place] [address] from Last 3 Months Insurance [facility] Medicare [facility] Medicare
== END 2025-01-26 13:42 | disposition home or self-care (01) ==
LOC: HO.HCS 12:57
PROVIDERS: PCP Internal Medicine; Visit Provider Internal Medicine
DX: I50.42 Chronic combined systolic (congestive) and diastolic (congestive) heart failure (principal); I44.7 Left bundle-branch block, unspecified; I35.0 Nonrheumatic aortic (valve) stenosis; I48.21 Permanent atrial fibrillation; I10 Essential (primary) hypertension; Z95.0 Presence of cardiac pacemaker
CPT/HCPCS: 93279; 99214; G2211

== ENCOUNTER 2025-01-26 12:56 | Outpatient (REF) | payer MEDICARE, SELFPAY ==
--- OUTSIDE RECORDS SUMMARY | 2025-01-26 16:29 | XMS_ITS | Clinical Summary ---
Author Organization [facility] Address [address] [place] [address] [place] [address] Phone Care Team Providers Care Mat Puncher Name Role Phone Silvia Corrales MD Primary Care Provider [phone] Social History Tobacco Use Types Packs/Day Years [...] [place] [id number] MEDICARE PART A & B [facility] MEDICARE SUPPLEMENT MEDICARE PART A & B [facility] MEDICARE SUPPLEMENT MEDICARE PART A & B Member Subscriber Plan / Payer (Ef fective 2009-Present) Name:Aminah Kraft Member ID:[id number] Relation to Subscriber:Self Name:Aminah Kraft Subscriber ID:[id number] Payer ID:[id number] Group ID:Not on file Type:Medicare Address: [facility] [address] [facility] [address] MEDICARE SUPPLEMENT MEDICARE PART A & B [facility] MEDICARE SUPPLEMENT MEDICARE PART A & B MEDICARE SUPPLEMENT MEDICARE PART A & B MEDICARE SUPPLEMENT Care Teams Mat Puncher Relationship Specialty Start Date End Date Silvia Corrales MD [address] [place] [phone] [email or web address] PCP - General Internal Medicine 09/18/24 Additional Source Comments The information contained in this document represents components of the legal health record. It is not the complete legal health record.[facility]
[2025-01-26 16:57] LABS: Appearance Urine Clear; Glucose Urine UA Negative (Negative); PH 6.0 (5.0-9.0); Specific Gravity - Urine 1.010 (1.005-1.025); UMIC TRIGGER UA YES
== END 2025-01-26 12:57 | disposition home or self-care (01) ==
LOC: HO.LAB 12:56
PROVIDERS: Urology; PCP Internal Medicine; Visit Provider Internal Medicine
DX: I11.0 Hypertensive heart disease with heart failure (principal); I50.42 Chronic combined systolic (congestive) and diastolic (congestive) heart failure; I35.0 Nonrheumatic aortic (valve) stenosis; I48.21 Permanent atrial fibrillation; N39.0 Urinary tract infection, site not specified; Z95.0 Presence of cardiac pacemaker; Z79.899 Other long term (current) drug therapy
CPT/HCPCS: 51701; 81001; 87086; 87088; 87186; 99212

== ENCOUNTER 2025-02-09 08:03 | Outpatient (AMB) | payer MEDICARE, SELFPAY ==
--- OUTSIDE RECORDS SUMMARY | 2025-02-09 08:10 | XMS_ITS | Clinical Summary ---
Author Organization [facility] Address [address] [place] [address] [place] [address] Phone Care Team Providers Care French Tutor Name Role Phone Silvia Corrales MD Primary Care Provider [phone] Social History Tobacco Use Types Packs/Day Years [...] [place] [id number] MEDICARE PART A & B [facility] MEDICARE SUPPLEMENT MEDICARE PART A & B [facility] MEDICARE SUPPLEMENT MEDICARE PART A & B Member Subscriber Plan / Payer (Ef fective 2009-Present) Name:Aminah Kraft Member ID:[id number] Relation to Subscriber:Self Name:Aminah Kraft Subscriber ID:[id number] Payer ID:[id number] Group ID:Not on file Type:Medicare Address: [facility] for; to (do) Centers [facility] [address] MEDICARE SUPPLEMENT MEDICARE PART A & B [facility] MEDICARE SUPPLEMENT MEDICARE PART A & B MEDICARE SUPPLEMENT MEDICARE PART A & B MEDICARE SUPPLEMENT Care Teams French Tutor Relationship Specialty Start Date End Date Silvia Corrales MD [address] [place] [phone] [email or web address] PCP - General Internal Medicine 09/18/24 Additional Source Comments The information contained in this document represents components of the legal health record. It is not the complete legal health record.[facility]
--- OUTSIDE RECORDS SUMMARY | 2025-02-09 08:10 | XMS_ITS | Clinical Summary ---
Author Organization [facility] Address [address] [place] [address] Care Team Providers Care Occ Therapy Asst Name Role Phone Patricia Nicole MD Primary [...] - 99 mg/dL 12/24/2022 7:23 AM EDT [facility] Comment:Fasting: <100 mg/dL, Non-Fasting: <200 mg/dL (ADA 2005) Blood Urea Nitrogen (BUN) 14 8 - 21 mg/dL 12/24/2022 7:23 AM EDT [facility] Creatinine 0.6 0.4 - 1.1 mg/dL 12/24/2022 7:23 AM T [facility] eGFR 88 >59 12/24/2022 7:23 AM [facility] Comment:CKD-EPI (2020) in mL /min/1.73 sq meters. Sodium 137 136 - 145 mmol/L 12/24/2022 7:23 AM [facility] Potassium 3.8 3.4 - 5.3 mmol/L 12/24/2022 7:23 AM [facility] Chloride 101 98 - 107 mmol/L 12/24/2022 7:23 AM [facility] CO2 28 22 - 33 mmol/L 12/24/2022 7:23 AM [facility] Anion Gap 8 7 - 17 12/24/2022 7:23 AM [facility] Calcium 9.3 8.7 - 10.5 mg/dL 12/24/2022 7:23 AM [facility] BUN/Creatinine Ratio 23 10.0 - 25.0 Ratio 12/24/2022 7:23 AM [facility] Blood specimen (specimen) (Plasma/Serum) 12/24/2022 6:14 AM EDT 12/24/2022 6:43 AM EDT us Silvestre Juarez MD LAB BLOOD ORDERABLES Fin al Result [place] [address] * (ABNORMAL) Hemoglobin A1c with Estimated Average Glucose (12/18/2022 3:24 AM EDT) Hemoglobin A1C 7.5(H) <5.7 % 12/18/2022 4:47 AM T [facility] Comment: A1c% Interpretation 5.7 - 6.0 Increase risk of diabetes 6.1 - 6.4 Higher risk of diabetes > or = 6.5 Consistent with diabetes Diabetes Care, 33(Supp 1):S1-S61, 2009 Estimated Average Glucose 169 mg/dL 12/18/2022 4:47 AM T [facility] Blood specimen (specimen) Blood specimen / Unknown 12/18/2022 3:24 AM EDT 12/18/2022 3:40 AM EDT us Chiquita Adler [employer] [facility] LAB BLOOD ORDERABLES Final R esult HOSPITAL LAB See Below [facility] [address] [place] [address] from Last 3 Months or Most Recently Relevant to Health Maintenance [place] [address] [place] [phone] [facility] MEDICARE PART A & B Advance Directives * Full Code (Latest Code Status on File) Date Activated Date Inactivated Comments 12/18/2022 2:12 AM Question Answer Comments Decision Thoroughly Discussed with: Unable to Di scuss Care Teams Occ Therapy Asst Relationship Specialty Start Date End Date Patricia Nicole MD [address] [place] [address] [place] [id number] PCP - General Internal Medicine 12/18/22
--- OUTSIDE RECORDS SUMMARY | 2025-02-09 08:10 | XMS_ITS | Clinical Summary ---
Author Organization [facility] Address [address] [place] [address] Phone Care Team Providers Care Fine Arts Packer Name Role Phone Unavailable Primary Care Provider [...] Sepsis caused by Gram negative bacteria 09/17/19 Reduced ejection fraction co -occurrent and due [...] Date Urinary tract infectious disease 09/16/2024 11/06/2024 Immunizations Immunization Administration Dates Next Due Influenza [...] [facility] [address] [place] [address] Gume Moyer MD [address] [address] 09/07/2025 1:00 PM EDT Office Visit [facility] [address] [place] [address] Gume Moyer MD [address] [address] Health Maintenance Due Date Last [...] patient's age to complete this topic Insurance [facility] Medicare [facility] Medicare
--- NOTE | 2025-02-09 08:39 | A.OFFVIS_ITS ---
Intake Visit Reasons: Urethral Dilation Intake Note: Patient presents today for urethral dilation Urology Medication:Estradiol Blood Thinner:Apixaban Antibiotic Allergies:None Physician Vice President Required: No Accompanied by: Self / Same As Patient Allergies latex (Latex) Allergy (Severe, Verified 02/09/25 08:40) RASH cephalexin (CEPHALEXIN) Allergy (Intermediate, Verified 02/09/25 08:40) SWELLING adhesive tape (Adhesive Tape) Allergy (Mild, Verified 02/09/25 08:40) CONTACT DERMATITIS empagliflozin (From Jardiance) Adverse Reaction (Severe, Verified 02/09/25 08:40) Dizziness flecainide (From Tambocor) Adverse Reaction (Severe, Verified 02/09/25 08:40) HEART RACING Biaxin Adverse Reaction (Intermediate, Verified 02/09/25 08:40) plapitations lisinopril (LISINOPRIL) Adverse Reaction (Intermediate, Verified 02/09/25 08:40) cough, nausea bacitracin (From Cortisporin) Adverse Reaction (Mild, Verified 02/09/25 08:40) EYE IRRITATION hydrocortisone (From Cortisporin) Adverse Reaction (Mild, Verified 02/09/25 08:40) EYE IRRITATION neomycin (From Cortisporin) Adverse Reaction (Mild, Verified 02/09/25 08:40) EYE IRRITATION nitrofurantoin Adverse Reaction (Verified 02/09/25 08:40) Loss of Appetite HPI Comments Details: 02/09/2025--is a 84-year-old female she is followed for kidney stone she was noted to have recurrent UTIs. She came in for catheterized urine by the nursing staff 2 weeks ago and was noted to have labial adhesions. She presents today to have labial vaginal dilation. I was able to dilate to a 24 Cameroonian and was able to further dilate with my index finger to break the skin adhesions there was a little bleeding of the skin that was minimal the patient is advised to continue using the estrogen dial cream at bedtime. She has follow-up in March with renal ultrasound to re-evaluate kidney stones we will do pelvic exam at that time also. 10/13/24-- History of Present Illness - The patient is an 84-year-old female presenting with nephrolithiasis and back pain. Pt is here with daughter. - Here for right stent removal - passed 5 mm distal right ureteral stone Results - Imaging: - CT scan on 09/10/24 showed a 5 mm obstructing distal stone and an 11 mm stone in the right kidney. Plan - Follow-up ultrasound in six months to monitor the right kidney stone. - Implement dietary changes to reduce oxalate intake, including reducing tea consumption and increasing water intake with lemon. Diet sheet provided - Prescribe vitamin B6 to aid in reducing stone formation. 10/06/24--Aminah is an 84-year-old female with history of kidney stones she was in the hospital in August for UTI and acute kidney injury on 09/10/2024 a CAT scan was done as an inpatient noting a 5 mm right distal obstructing stone also an 11 mm right kidney stone Dr. Solis placed a right ureteral stent on 09/11/2024. - The patient is an 84-year-old female presenting with kidney stones. - She has a history of kidney stones, with a recent 5 mm obstructing distal stone and an 11 mm stone in the right kidney. - In August, she was hospitalized for a urinary tract infection and acute kidney injury, due to 5 mm obstructing distal stone, CT also noted an 11 mm nonobstructing stone in the right kidney during which a stent was placed by Dr. Solis on 09/11/24 to manage the obstructing stone. - The patient's son states she the stent has not been removed yet, and he thinks the patient passed the ureteral stone in the hospital, he states the nurse collected it and he took a picture. Results - CT scan on 09/10/24 showed a 5 mm obstructing distal stone and an 11 mm stone in the right kidney. 07/29/24--Aminah is here with her daughter she has been seen in our office in the past due to kidney stones. Past medical history significant for degenerative di sc disease, diabetes, congestive heart failure. She presents because of persistent UTI symptoms of urgency frequency. She states that she was seen by her PCP in June and the furosemide was discontinued which has helped to some degree with her urinary symptoms. Urinalysis today is notable for leukocytes and blood. I reviewed prior imagin08/30/23--CTAP with IV contrast--KIDNEYS AND URETERS: Bilateral hypodense renal foci demonstrating fluid attenuation, statistically representing cysts, not requiring follow-up. Right- sided nephrolithiasis versus vascular calcification measuring 1.1 cm without hydronephrosis. No left-sided nephrolithiasis or hydronephrosis. The patient states that she wears a panty liner and generally is able to get to the bathroom but will occasionally have some leakage prior to getting to the bathroom to urinate. I have discussed further evaluation with CT urogram I will send urine for culture and urine FISH. Discussion today included trial of Gemtesa/anticholinergic at this time the patient is reluctant to start a new medication will hold on medication therapy for now and have her follow-up after CT urogram for office cystoscopy. 09/04/22-- Aminah is an 82-year-old female who presents to the office for 6- months follow-up for renal calculi. The patient denies hematuria or any other urinary symptoms. She was seen last by LUCERO Godinez on 03/06/22---- Aminah is an 81-year-old female who is here for follow-up. She has history of kidney stones. 09/04/22--Evaluation today-- Blood: negative, leukocytes: negative. Renal US-- 02/15/22-- nonobstructive calculi in the mid pole of the right kidney. Plan: KUB X-ray was ordered to be done today. Follow-up after a year or sooner if needed. Renal US prior was ordered. 03/06/11--She is here in follow-up post renal ultrasound. I have discussed ultrasound results with the patient. In review imaging she has a stable 8 mm right kidney stone. The patient states in the past she did have shockwave lithotripsy. She is not interested in any procedures at this time as the stone is not bothering her. The patient states that she fell about 3 months ago and has been having chronic lower back pain since, she is taking 1 Tylenol about every 6 hours. Therapeutic plan--- fluids encouraged, surveillance imaging. KUB in 6 months. Imagin02/15/22- renal us - right kidney stone stable - no hydro 12/13/21- CTKUB - right kidney 8 mm stone - 07/07 CT scan 8 mm proximal ureteric stone, 8 mm upper pole right stone - 08/06 renal ultrasound with 8 mm upper pole stone Intervention - 06/2020 ESWL right side [facility] Medical History Type 2 diabetes mellitus with diabetic neuropathy, with long-term current use of insulin History of CHF (congestive heart failure) Chronic combined systolic and diastolic CHF (congestive heart failure) Right nephrolithiasis Recurrent UTI (urinary tract infection) Hiatal hernia Gastritis Degenerative disc disease, thoracic Degenerative disc disease, lumbar BLACKFEET (hard of hearing) Wears hearing aid in both ears Uses walker Hx of cardiac pacemaker (10/06/23) Age-related osteoporosis with current pathological fracture, vertebra(e), initial encounter for fracture Compression fracture of lumbar spine, non-traumatic Nontraumatic compression fracture of thoracic vertebra Moderate aortic stenosis Diabetes mellitus Cholelithiasis Renal cyst Pulmonary hypertension Non-rheumatic mitral regurgitation Permanent atrial fibrillation Microcytic anemia Atrophic vaginitis Osteoarthritis of knees, bilateral Essential hypertension Dyslipidemia Surgical History History of cardiac radiofrequency ablation (RFA) Hx of cardiac catheterization History of esophagogastroduodenoscopy (EGD) (~10/2022) History of lumbar discectomy History of lobectomy of lung History of hysterectomy History of total right knee replacement (TKR) Lumbar radiculopathy Family History Father Diabetes mellitus Mother Diabetes mellitus Myocardial infarction Sister Cancer Sister No problems noted. Son No problems noted. Daughter No problems noted. Social History Household Members: Family Housing: House Are you a primary daycare director to a significant other at home: No Do you presently have visiting nurse or other home services: No Alcohol intake: never Patient Tobacco Use Status: Former Tobacco user Tobacco use type: Cigarette e-Cigarette/Vaping Use: Never Used Advance Directives Date on File: 06/20/23 service: No Current occupational status: retired Cognitive needs: No Hearing needs: Yes Vision needs: Yes Office Procedures Generic Document Section Details: Urethra prepped with 2% Lidocaine Gel. Results AMB Urinalysis, Automated UA Leukoctes 500 Sofía/uL Last Edit by Shirley Hernandez on 02/09/25 14:13 UA Nitrite Negative Last Edit by Shirley Hernandez on 02/09/25 14:13 UA Urobilinogen 0.2 mg/dL Last Edit by Shirley Hernandez on 02/09/25 14:13 UA Protein 15 mg/dL Last Edit by Shirley Hernandez on 02/09/25 14:13 UA pH 6.0 Last Edit by Shirley Hernandez on 02/09/25 14:13 UA Blood 10 Stewart/uL Last Edit by Shirley Hernandez on 02/09/25 14:13 UA Specific Warren 1.010 Last Edit by Shirley Hernandez on 02/09/25 14:13 UA Ketone Negative Last Edit by Shirley Hernandez on 02/09/25 14:13 UA Bilirubin 0 mg/dL Last Edit by Shirley Hernandez on 02/09/25 14:13 UA Glucose 0 mg/dL Last Edit by Shirley Hernandez on 02/09/25 14:13 Assessment & Plan Assessment & Plan Orders: Orders Urethral Dilation Today N39.0 - Urinary tract infection, site not specified, N95.2 - Postmenopausal atrophic vaginitis, R32 - Unspecified urinary incontinence AMB Urinalysis Automated Today Z13.9 - Encounter for screening, unspecified Coding
== END 2025-02-09 09:44 | disposition home or self-care (01) ==
PROVIDERS: Visit Provider Urology
DX: Z13.9 Encounter for screening, unspecified (principal)

== ENCOUNTER 2025-02-10 10:00 | Outpatient (RCR) | payer MEDICARE, SELFPAY ==
[2025-02-04 12:22] VITALS: BP 143/60; PULSE 85; RESP 20; TEMP 36.9; O2SAT 94; BMI 31.1
[2025-02-04 13:20] LABS: Creatinine Clr Calc Pharmacy 32.1; Estimated Glomerular Filt Rate 44
[2025-02-05 09:59] VITALS: BP 135/52; PULSE 85; RESP 16; TEMP 36.7; O2SAT 94
[2025-02-06 09:59] VITALS: BP 146/62; PULSE 85; RESP 16; TEMP 36.8; O2SAT 94
[2025-02-06 10:26] LABS: Creatinine Clr Calc Pharmacy 30.0; Estimated Glomerular Filt Rate 41
--- NOTE | 2025-02-06 11:14 | HE.PHANOTE ---
Re: Cj Poor renal function, trough returned at 11.9, continue current dose of 1,000 q24h with predicted AUC 588 and predicted trough 19.1. Next trough Friday 02/09.
[2025-02-07 11:15] VITALS: BP 104/60; PULSE 18; RESP 18; TEMP 36.9; O2SAT 92
[2025-02-08 10:37] VITALS: BP 145/62; PULSE 82; RESP 19; TEMP 36.4; O2SAT 94; BMI 30.9
--- NOTE | 2025-02-08 10:45 | PC.NURSE ---
left arm redness noted
[2025-02-08 11:47] VITALS: BP 132/87; PULSE 77; RESP 18; TEMP 36.1; O2SAT 94
[2025-02-09 09:53] VITALS: BP 106/70; PULSE 84; RESP 16; TEMP 36.7; O2SAT 96
[2025-02-09 09:57] VITALS: BP 106/70; PULSE 84; RESP 18; TEMP 36.6
[2025-02-09 10:29] LABS: Creatinine Clr Calc Pharmacy 34.1; Estimated Glomerular Filt Rate 48
[2025-02-10 09:53] VITALS: BP 152/69; PULSE 75; RESP 16; TEMP 36.5; O2SAT 96
== END 2025-02-10 11:53 | disposition home or self-care (01) ==
LOC: HO.INF 10:00
PROVIDERS: Visit Provider Urology
DX: N39.0 Urinary tract infection, site not specified (principal)
CPT/HCPCS: 36415; 80202; 82565; 96365; J3374

== ENCOUNTER → 2025-02-22 14:27 | Outpatient (BNV) | payer MEDICARE, SELFPAY | PROVIDERS: Visit Provider Internal Medicine | DX: I50.42 Chronic combined systolic (congestive) and diastolic (congestive) heart failure (principal); Z95.0 Presence of cardiac pacemaker | CPT/HCPCS: 93294 ==